=== PATIENT | female | born 1980 | race Hispanic/Latino ===

== ENCOUNTER 2017-10-11 23:04 | Emergency (ER) | payer OTHER ==
[2017-10-12 00:28] LABS: Absolute Lymphocytes (CBC) 1.3 K/uL (0.7-4.9); Absolute Monocytes 0.5 K/uL (0.1-1.3); Absolute Neutrophil 5.1 K/uL (1.8-8.0); Basophils % 0.4 % (0-1.3); Eosinophils % 0.9 % (0-4.4); Hematocrit 37.7 % (36.0-45.0); Lymphocytes % 18.8 % (15.3-44.8); MCV 88.9 fL (80-100); MPV 8.4 fL (7.6-11.3); Monocytes % 7.5 % (3.3-12.3); RBC Red Blood Cell Count 4.23 M/uL (3.86-4.86)
[2017-10-12] MEDS ORDERED: NA CHLORIDE 0.9% 1,000 ML ONE (00:32)
[2017-10-12] MEDS ORDERED: HYDROCORTISONE SUC 100 MG INJ ONE (00:32)
[2017-10-12 00:38] LABS: Urine Blood NEGATIVE (NEG); Urine Glucose NEGATIVE (NEG); Urine Protein NEGATIVE (NEG); Urine Specific Gravity >1.030 (1.005-1.030)
[2017-10-12 00:38] LABS: Urine Specific Gravity >1.030 (1.005-1.030)
[2017-10-12 00:42] LABS: Protime INR 0.95
[2017-10-12 01:05] LABS: ALT/SGPT 15 U/L (12-78); AST/SGOT 4 U/L (15-37); Albumin 3.3 g/dL (3.4-5.0); Alkaline Phosphatase 80 U/L (45-117); BUN Blood Urea Nitrogen 14 mg/dL (7-18); Bicarbonate 31 mmol/L (21-32); Bilirubin Direct 0.1 mg/dL (0-0.2); Bilirubin Total 0.4 mg/dL (0.2-1.0); CKMB Creatine Kinase MB < 1.0 ng/mL (0.3-3.6); Creatine Phosphokinase 89 U/L (26-192); Glucose Level 111 mg/dL (74-106); Magnesium 2.1 mg/dL (1.8-2.4); NT PRO-BNP 34 pg/mL (<125); Potassium 3.6 mmol/L (3.5-5.1); Protein, Total 6.5 g/dL (6.4-8.2); Sodium Level 143 mmol/L (136-145)
--- NOTE | 2017-10-12 02:07 | ER ---
Nurse's Notes [facility] Name: Lavinia Jarrett Age: 36 yrs Sex: Female : 1980 Arrival Date: 10/11/2017 Time: 23:04 Bed 6 Private MD: Cinda Briceno Diagnosis: Weakness;Thyrotoxicosis [hyperthyroidism];Hypotension;Cough Presentation: 10/11 23:18 Presenting complaint: Patient states: she has Cooper's Disease and has been feeling bb weak and tired was seen by pain management doctor and told she had low blood pressure and was told she should come to the ED it was 80s over 40s. Pt states she is currently on Bactim prophylactically for exposure to "Whooping Cough". Transition of care: patient was not received from another setting of care. Onset of symptoms is unknown. Risk Assessment: Do you want to hurt yourself or someone else? Patient reports no desire to harm self or others. Initial Sepsis Screen: Does the patient meet any 2 criteria? No. Patient's initial sepsis screen is negative. Does the patient have a suspected source of infection? No. Patient's initial sepsis screen is negative. Care prior to arrival: None. 23:18 Method Of Arrival: Ambulatory bb 23:18 Acuity: KIKA 3 bb Historical: - Allergies: 23:30 Latex, Natural Rubber; bb - Home Meds: 23:43 amoxicillin 500 mg Oral cap 4 caps 1 hr before MD visit [Active]; baclofen 10 mg Oral bb tab 1 1-2 tab BID [Active]; butrans 20 mcg/hr patch every week [Active]; Chlordiazepoxide Oral 1 cap 3 times per day [Active]; Cholestyramine Light Oral [Active]; clonazepam 2 mg Oral tab 1 tab 2 times per day [Active]; dicyclomine 20 mg Oral tab 1 tab 3 times per day [Active]; docusate sodium 100 mg Oral cap [Active]; hydrocortisone 10 mg Oral tab 1.5 tab 1 tab at 2pm [Active]; Lyrica 100 mg Oral 1 cap 3 times per day [Active]; methocarbamol 500 mg Oral tab 1 tabs BID [Active]; oxycarbazepine 150 mg BID [Active]; pantoprazole 40 mg Oral TbEC 1 tab once daily [Active]; Prednisone Oral [Active]; promethazine 25 mg Oral tab as needed [Active]; Savella 50 mg Oral tab 1 tab 2 times per day [Active]; solu-cortef [Active]; SUMATRIPTAN 50 mg [Active]; Synthroid 150 mcg Oral tab [Active]; tizanidine 4 mg Oral tab 1 tab BID [Active]; topiramate 25 mg Oral CSpX 1 cap once daily [Active]; topiramate 25 mg Oral CSpX 1 cap BID [Active]; tramadol 50 mg Oral tab as needed [Active]; trazodone 50 mg Oral tab 1 tab once a day [Active]; venlafaxine 150 mg Oral cp24 1 cap once daily [Active]; Vitamin D Oral daily [Active]; Zofran (as hydrochloride) 4 mg Oral tab 2 tabs every 8 hours [Active]; - PMHx: 23:30 Cooper's disease; Bipolar disorder; Chronic pain; Depression; Fibromyalgia; bb Hypothyroidism; Migraines; Schizophrenia; ibs; - PSHx: 23:30 Cholecystectomy; Hernia repair; bb - Immunization history:: Adult Immunizations up to date. - Social history:: Smoking status: Patient/guardian denies using tobacco, Patient/guardian denies using alcohol, street drugs. - Ebola Screening: : No symptoms or risks identified at this time. - Family history:: not pertinent. Screenin:30 Abuse screen: Denies threats or abuse. Denies injuries from another. Nutritional aa1 screening: No deficits noted. Tuberculosis screening: No symptoms or risk factors identified. Fall Risk None identified. Assessment: 23:30 General: Appears in no apparent distress. comfortable, Behavior is calm, cooperative, aa1 appropriate for age. Pain: Denies pain. Neuro: Level of Consciousness is awake, alert, obeys commands, Oriented to person, place, time, situation, Moves all extremities. Full function Gait is steady, Speech is normal, Facial symmetry appears normal, Pupils are PERRLA, Denies blurred vision dizziness. Cardiovascular: Denies chest pain, diaphoresis, palpitations, shortness of breath, Heart tones S1 S2 present Rhythm is regular. Respiratory: Reports cough that is dry, Airway is patent Respiratory effort is even, unlabored, Respiratory pattern is regular, symmetrical, Breath sounds are clear bilaterally. GI: No signs and/or symptoms were reported involving the gastrointestinal system. : No signs and/or symptoms were reported regarding the genitourinary system. EENT: No signs and/or symptoms were reported regarding the EENT system. Derm: Skin is intact, is healthy with good turgor, Skin is pink, warm \\T\\ dry. Musculoskeletal: Circulation, motion, and sensation intact. Capillary refill < 3 seconds. 10/12 01:06 Reassessment: Patient appears in no apparent distress at this time. Patient and/or aa1 family updated on plan of care and expected duration. Pain level reassessed. Patient is alert, oriented x 3, equal unlabored respirations, skin warm/dry/pink. Awaiting lab results. 02:20 Reassessment: Patient appears in no apparent distress at this time. Patient is alert, aa1 oriented x 3, equal unlabored respirations, skin warm/dry/pink. Discussed d/c \\T\\ f/u instructions with pt; denies questions or concerns at this time Patient states feeling better. Vital Signs: 10/11 23:30 BP 121 / 80; Pulse 78; Resp 16 S; Temp 97.8(O); Pulse Ox 95% on R/A; Weight 122.47 kg bb (R); Height 5 ft. 5 in. (165.10 cm) (R); Pain 8/10; 10/12 01:06 BP 98 / 65; Pulse 64; Resp 18; Pulse Ox 96% on R/A; aa1 02:07 BP 125 / 85; Pulse 71; Resp 18; Pulse Ox 97% on R/A; tl2 10/11 23:30 Body Mass Index 44.93 (122.47 kg, 165.10 cm) ED Course: 10/11 23:04 Patient arrived in ED. ds1 23:05 Cinda Briceno MD is Private Physician. ds1 23:26 Triage completed. bb 23:30 Arm band placed on Patient placed in an exam room, on a stretcher, on pulse oximetry. bb Family accompanied patient. 23:30 Patient has correct armband on for positive identification. Bed in low position. Call aa1 light in reach. Pulse ox on. NIBP on. Warm blanket given. 23:44 Shabbir Hendrix MD is Attending Physician. [facility] 10/12 00:06 No Rose RN is Primary Nurse. aa1 00:15 XRAY Chest (1 view) In Process Unspecified. EDMS 00:20 Initial lab(s) drawn, by me, sent to lab. Urine collected: clean catch specimen, clear. aa1 Inserted saline lock: 20 gauge in right antecubital area, using aseptic technique. Blood collected. 00:26 X-ray completed. Portable x-ray completed in exam room. Patient tolerated procedure ml well. 00:30 EKG done, by ED staff, reviewed by Shabbir Hendrix MD. aa1 02:06 Cinda Briceno MD is Referral Physician. [facility] 02:20 No provider procedures requiring assistance completed. IV discontinued, intact, aa1 bleeding controlled, No redness/swelling at site. Pressure dressing applied. Administered Medications: 00:32 Drug: NS 0.9% 1000 ml Route: IV; Rate: 1 bolus; Site: right antecubital; aa1 00:33 Drug: Solu-CORTEF 100 mg Route: IVP; Site: right antecubital; aa1 02:36 Follow up: Response: No adverse reaction aa1 02:36 Drug: Zithromax 500 mg Route: PO; aa1 02:38 Follow up: Response: No adverse reaction; Medication administered at discharge. aa1 Outcome: 02:07 Discharge ordered by . mehul 02:20 Discharged to home ambulatory, with family. aa1 02:20 Condition: good 02:20 Discharge instructions given to patient, Instructed on discharge instructions, follow up and referral plans. medication usage, Demonstrated understanding of instructions, follow-up care, medications, Prescriptions given X 1. 02:47 Patient left the ED. bb Signatures: Dispatcher [employer] EDIL No Rose, KESHAV RN aa1 Shabbir Hendrix MD MD cha Sanford, Demi ds1 Karley Martines RN RN Jess Encinas Taylor RN RN tl2
--- NOTE | 2017-10-12 02:08 | EDPHYS ---
Physician Documentation [facility] Name: Lavinia Jarrett Age: 36 yrs Sex: Female : 1980 Arrival Date: 10/11/2017 Time: 23:04 Bed 6 Private MD: Cinda Briceno ED Physician Shabbir Hendrix HPI: 10/12 00:05 This 36 yrs old Female presents to ER via Ambulatory with complaints of Low BP.mehul 00:05 weakness and low blood pressure. Onset: The symptoms/episode began/occurred 1 day(s) mehul ago. Severity of symptoms: At their worst the symptoms were mild in the emergency department the symptoms are unchanged. The patient has experienced similar episodes in the past, a few times. Historical: - Allergies: 10/11 23:30 Latex, Natural Rubber; bb - Home Meds: 23:43 amoxicillin 500 mg Oral cap 4 caps 1 hr before MD visit [Active]; baclofen 10 mg Oral bb tab 1 1-2 tab BID [Active]; butrans 20 mcg/hr patch every week [Active]; Chlordiazepoxide Oral 1 cap 3 times per day [Active]; Cholestyramine Light Oral [Active]; clonazepam 2 mg Oral tab 1 tab 2 times per day [Active]; dicyclomine 20 mg Oral tab 1 tab 3 times per day [Active]; docusate sodium 100 mg Oral cap [Active]; hydrocortisone 10 mg Oral tab 1.5 tab 1 tab at 2pm [Active]; Lyrica 100 mg Oral 1 cap 3 times per day [Active]; methocarbamol 500 mg Oral tab 1 tabs BID [Active]; oxycarbazepine 150 mg BID [Active]; pantoprazole 40 mg Oral TbEC 1 tab once daily [Active]; Prednisone Oral [Active]; promethazine 25 mg Oral tab as needed [Active]; Savella 50 mg Oral tab 1 tab 2 times per day [Active]; solu-cortef [Active]; SUMATRIPTAN 50 mg [Active]; Synthroid 150 mcg Oral tab [Active]; tizanidine 4 mg Oral tab 1 tab BID [Active]; topiramate 25 mg Oral CSpX 1 cap once daily [Active]; topiramate 25 mg Oral CSpX 1 cap BID [Active]; tramadol 50 mg Oral tab as needed [Active]; trazodone 50 mg Oral tab 1 tab once a day [Active]; venlafaxine 150 mg Oral cp24 1 cap once daily [Active]; Vitamin D Oral daily [Active]; Zofran (as hydrochloride) 4 mg Oral tab 2 tabs every 8 hours [Active]; - PMHx: 23:30 Aston's disease; Bipolar disorder; Chronic pain; Depression; Fibromyalgia; bb Hypothyroidism; Migraines; Schizophrenia; ibs; - PSHx: 23:30 Cholecystectomy; Hernia repair; bb - Immunization history:: Adult Immunizations up to date. - Social history:: Smoking status: Patient/guardian denies using tobacco, Patient/guardian denies using alcohol, street drugs. - Ebola Screening: : No symptoms or risks identified at this time. - Family history:: not pertinent. ROS: 10/12 00:05 Constitutional: Negative for fever, chills, and weight loss, Eyes: Negative for injury, mehul pain, redness, and discharge, ENT: Negative for injury, pain, and discharge, Neck: Negative for injury, pain, and swelling, Cardiovascular: Negative for chest pain, palpitations, and edema, Respiratory: Negative for shortness of breath, cough, wheezing, and pleuritic chest pain, Abdomen/GI: Negative for abdominal pain, nausea, vomiting, diarrhea, and constipation, Back: Negative for injury and pain, : Negative for injury, bleeding, discharge, and swelling, MS/Extremity: Negative for injury and deformity, Skin: Negative for injury, rash, and discoloration, Neuro: Negative for headache, weakness, numbness, tingling, and seizure, Psych: Negative for depression, anxiety, suicide ideation, homicidal ideation, and hallucinations, Allergy/Immunology: Negative for hives, rash, and allergies, Endocrine: Negative for neck swelling, polydipsia, polyuria, polyphagia, and marked weight changes, Hematologic/Lymphatic: Negative for swollen nodes, abnormal bleeding, and unusual bruising. Exam: 00:05 Constitutional: This is a well developed, well nourished patient who is awake, alert, mehul and in no acute distress. Head/Face: Normocephalic, atraumatic. Eyes: Pupils equal round and reactive to light, extra-ocular motions intact. Lids and lashes normal. Conjunctiva and sclera are non-icteric and not injected. Cornea within normal limits. Periorbital areas with no swelling, redness, or edema. ENT: Nares patent. No nasal discharge, no septal abnormalities noted. Tympanic membranes are normal and external auditory canals are clear. Oropharynx with no redness, swelling, or masses, exudates, or evidence of obstruction, uvula midline. Mucous membranes moist. Neck: Trachea midline, no thyromegaly or masses palpated, and no cervical lymphadenopathy. Supple, full range of motion without nuchal rigidity, or vertebral point tenderness. No Meningismus. Chest/axilla: Normal chest wall appearance and motion. Nontender with no deformity. No lesions are appreciated. Cardiovascular: Regular rate and rhythm with a normal S1 and S2. No gallops, murmurs, or rubs. Normal PMI, no JVD. No pulse deficits. Respiratory: Lungs have equal breath sounds bilaterally, clear to auscultation and percussion. No rales, rhonchi or wheezes noted. No increased work of breathing, no retractions or nasal flaring. Abdomen/GI: Soft, non-tender, with normal bowel sounds. No distension or tympany. No guarding or rebound. No evidence of tenderness throughout. Back: No spinal tenderness. No costovertebral tenderness. Full range of motion. Female : Normal external genitalia. Skin: Warm, dry with normal turgor. Normal color with no rashes, no lesions, and no evidence of cellulitis. MS/ Extremity: Pulses equal, no cyanosis. Neurovascular intact. Full, normal range of motion. Neuro: Awake and alert, GCS 15, oriented to person, place, time, and situation. Cranial nerves II-XII grossly intact. Motor strength 5/5 in all extremities. Sensory grossly intact. Cerebellar exam normal. Normal gait. Psych: Awake, alert, with orientation to person, place and time. Behavior, mood, and affect are within normal limits. Vital Signs: 10/11 23:30 BP 121 / 80; Pulse 78; Resp 16 S; Temp 97.8(O); Pulse Ox 95% on R/A; Weight 122.47 kg bb (R); Height 5 ft. 5 in. (165.10 cm) (R); Pain 8/10; 10/12 01:06 BP 98 / 65; Pulse 64; Resp 18; Pulse Ox 96% on R/A; aa1 02:07 BP 125 / 85; Pulse 71; Resp 18; Pulse Ox 97% on R/A; tl2 10/11 23:30 Body Mass Index 44.93 (122.47 kg, 165.10 cm) bb MDM: 10/11 23:44 Patient medically screened. [facility] 10/12 00:05 Data reviewed: vital signs, nurses notes, lab test result(s), EKG, radiologic studies, mehul plain films. 10/12 00:03 Order name: Basic Metabolic Panel; Complete Time: 02:02 [facility] 10/12 00:03 Order name: CBC with Diff; Complete Time: 02:02 [facility] 10/12 00:03 Order name: Ckmb; Complete Time: 02:02 [facility] 10/12 00:03 Order name: CPK; Complete Time: 02:02 [facility] 10/12 00:03 Order name: LFT's; Complete Time: 02:02 [facility] 10/12 00:03 Order name: Magnesium; Complete Time: 02:02 [facility] 10/12 00:03 Order name: NT PRO-BNP; Complete Time: 02:02 [facility] 10/12 00:03 Order name: PT-INR; Complete Time: 02:02 [facility] 10/12 00:03 Order name: Ptt, Activated; Complete Time: 02:02 [facility] 10/12 00:03 Order name: Troponin (emerg Dept Use Only); Complete Time: 02:02 [facility] 10/12 00:03 Order name: TSH; Complete Time: 02:02 [facility] 10/12 00:03 Order name: Urine Culture [facility] 10/12 00:18 Order name: Urine Dipstick--Ancillary (enter results); Complete Time: 02:02 [facility] 10/12 00:21 Order name: Urine --Ancillary (enter results); Complete Time: 02:02 [facility] 10/12 00:03 Order name: XRAY Chest (1 view) [facility] 10/12 00:03 Order name: EKG; Complete Time: 00:04 [facility] 10/12 00:03 Order name: Cardiac monitoring; Complete Time: 00:34 [facility] 10/12 00:03 Order name: EKG - Nurse/Tech; Complete Time: 00:34 [facility] 10/12 00:03 Order name: IV Saline Lock; Complete Time: 00:34 [facility] 10/12 00:03 Order name: Labs collected and sent; Complete Time: 00:33 [facility] 10/12 00:03 Order name: O2 Per Protocol; Complete Time: 00: [facility] 10/12 00:03 Order name: O2 Sat Monitoring; Complete Time: : [facility] 10/12 00:03 Order name: Urine Dipstick-Ancillary (obtain specimen); Complete Time: 00: [facility] 10/12 00:04 Order name: Urine Test (obtain specimen); Complete Time: 00: [facility] 10/12 02:05 Order name: Orthostatics [facility] 10/12 02:05 Order name: PO challenge: juice mehul Administered Medications: 00:32 Drug: NS 0.9% 1000 ml Route: IV; Rate: 1 bolus; Site: right antecubital; aa1 00:33 Drug: Solu-CORTEF 100 mg Route: IVP; Site: right antecubital; aa1 02:36 Follow up: Response: No adverse reaction aa1 02:36 Drug: Zithromax 500 mg Route: PO; aa1 02:38 Follow up: Response: No adverse reaction; Medication administered at discharge. aa1 Disposition: 10/12/17 02:07 Discharged to Home. Impression: Weakness, Thyrotoxicosis [hyperthyroidism], Hypotension, Cough. - Condition is Stable. - Discharge Instructions: Mcdowell Disease, Hyperthyroidism, Weakness, Cool Mist Vaporizer, Fatigue, Cough, Adult, Jfbe-[id number], Weakness, Ylwg-hu-Asqi, Cough, Adult. - Prescriptions for Zithromax Z- Nilay 250 mg Oral Tablet - take 1 tablet by ORAL route as directed for 5 days Day 1 - take two (2) tablets one time. Day 2, 3, 4 , 5 take one (1) tablet once daily.; 6 tablet. - Medication Reconciliation Form, Thank You Letter, Antibiotic Education, Prescription Opioid Use form. - Follow up: Cinda Briceno MD; When: 2 - 3 days; Reason: Recheck today's complaints, Continuance of care, Re-evaluation by your physician. Follow up: Private Physician; When: 1 - 2 days; Reason: Recheck today's complaints, Continuance of care, Re-evaluation by your physician. - Problem is new. - Symptoms have improved. Signatures: Dispatcher [employer] EDNo Cardozo RN RN aa1 Simeon, Shabbir, MD MD mehul Martines, Karley, RN RN bb Corrections: (The following items were deleted from the chart) 02:10 02:07 10/12/2017 02:07 Discharged to Home. Impression: Weakness; Thyrotoxicosis mehul [hyperthyroidism]; Hypotension. Condition is Stable. Forms are Medication Reconciliation Form, Thank You Letter, Antibiotic Education, Prescription Opioid Use. Follow up: Cinda Briceno; When: 2 - 3 days; Reason: Recheck today's complaints, Continuance of care, Re-evaluation by your physician. Follow up: Private Physician; When: 1 - 2 days; Reason: Recheck today's complaints, Continuance of care, Re-evaluation by your physician. Problem is new. Symptoms have improved. mehul 02:47 02:10 10/12/2017 02:07 Discharged to Home. Impression: Weakness; Thyrotoxicosis bb [hyperthyroidism]; Hypotension; Cough. Condition is Stable. Discharge Instructions: Mcdowell Disease, Hyperthyroidism, Weakness, Fatigue, Weakness, [id number]. Forms are Medication Reconciliation Form, Thank You Letter, Antibiotic Education, Prescription Opioid Use. Follow up: Cinda Briceno; When: 2 - 3 days; Reason: Recheck today's complaints, Continuance of care, Re-evaluation by your physician. Follow up: Private Physician; When: 1 - 2 days; Reason: Recheck today's complaints, Continuance of care, Re-evaluation by your physician. Problem is new. Symptoms have improved. mehul
[2017-10-12] MEDS ORDERED: AZITHROMYCIN 250 MG TAB ONE (02:35)
[2017-10-12 02:53] VITALS: TEMP 97.8
[2017-10-12 02:55] VITALS: BP 125/85; O2SAT 97
--- NOTE | 2017-10-12 06:01 | EKG ---
Test Date: 2017-10-12 Test Time: 00:29:43 [employer] Apprentice: AMADEO MEASUREMENT RESULTS: Intervals: Rate: 68 RI: 168 QRSD: 86 QT: 438 QTc: 465 [place]: P: 41 RI: 168 QRS: 13 T: 55 INTERPRETIVE STATEMENTS: Normal sinus rhythm Normal ECG Compared to ECG 01/06/2017 19:48:44 No significant changes Electronically Signed On 10-12-17 06:01:12 CDT by Maurisio Wagoner
--- NOTE | 2017-10-12 11:22 | RAD REPORT ---
EXAM DESCRIPTION: Sher Single View10/12/2017 12:16 am CLINICAL HISTORY: Cough COMPARISON: December 2016 FINDINGS: The lungs appear clear of acute infiltrate. The heart is borderline enlarged IMPRESSION: No acute abnormalities displayed
== END 2017-10-12 02:47 | disposition home or self-care (01) ==
LOC: ER 23:04
DX: E05.90 Thyrotoxicosis, unspecified without thyrotoxic crisis or storm (principal); I95.9 Hypotension, unspecified; R05 Cough; E27.1 Primary adrenocortical insufficiency; E03.9 Hypothyroidism, unspecified; G43.909 Migraine, unspecified, not intractable, without status migrainosus; R53.1 Weakness
CPT/HCPCS: 36415; 71045; 80048; 80076; 81003; 81025; 82550; 82553; 83735; 83880; 84443; 84484; 85025; 85610; 85730; 87086; 87088; 93005; 96374; 99284; J1720; J7030

== ENCOUNTER 2017-11-01 18:46 | Emergency (ER) | payer OTHER ==
--- OUTSIDE RECORDS SUMMARY | 2017-11-01 18:49 | XMS REPORT ---
:1980 Author Organization [employer] Care Team Providers Name Role Phone JamelCinda rock Provider Role Unavailable Allergies No Known Allergies Problems Problem Type Condition Code Onset Dates Condition Status Problem Migraine without status G43.909 Active migrainosus, not intractable, unspecified migraine type Problem Obstructive sleep apnea G47.33 Active Problem Gallstone K80.20 Active Problem Fibromyalgia M79.7 Active Problem Muscle weakness M62.81 Active Problem Hypothyroidism E03.9 Active Problem Chronic pain syndrome G89.4 Active Problem Depression with anxiety F41.8 Active Problem Bipolar disorder F31.9 Active Problem Foot pain M79.673 Active Problem Insomnia, unspecified type G47.00 Active Problem Bipolar affective disorder, F31.9 Active remission status unspecified Problem CPAP (continuous positive airway Z99.89 Active pressure) dependence Problem Hypothyroidism, unspecified type E03.9 Active Medications Medication Code Code Instructions Start End Status Dosage System Date Date Pantoprazole [facility] 89281170099 20 mg Orally Oct 25, Active 1 tablet Sodium Once a day 2017 Citalopram [place] 11418235423 20 MG Orally Active 1 tablet Hydrobromide Once a day Chlordiazepoxide-C [facility] 60804602065 5-2.5 MG Oct 25Mar Active 1 capsule lidinium Orally Once a 2017 Imitrex [facility] 91017125111 50 MG Orally Active 1 tablet Twice a day as needed Synthroid [facility] 31675963586 300 MCG Orally Active 1 tablet Once a day on an empty stomach in the morning Furosemide ND 64669605721 20 mg Orally Oct 25, Active 1 tablet Once a day 2017 as needed for leg swelling Clonazepam [facility] [address]-38 2 MG Orally Active 1 tablet Twice daily as needed Cyclobenzaprine [facility] [address]-65 10 MG Orally Active 1 tablet HCl Twice a day as needed Results No Known Results Summary Purpose [employer] Submission
--- OUTSIDE RECORDS SUMMARY | 2017-11-01 18:49 | XMS REPORT ---
:1980 Author Organization [employer] Care Team Providers Name Role Phone Cinda Briceno Provider Role Unavailable Allergies, Adverse Reactions, Alerts Substance Reaction Event Type N.K.D.A. Info Not Available Non Drug Allergy Problems Problem Type Condition Code Onset Dates Condition Status Problem Migraine without status G43.909 Active migrainosus, not intractable, unspecified migraine type Problem Obstructive sleep apnea G47.33 Active Problem Gallstone K80.20 Active Problem Fibromyalgia M79.7 Active Assessment Chronic pain syndrome G89.4 Active Problem Muscle weakness M62.81 Active Assessment Insomnia, unspecified type G47.00 Active Assessment Bipolar affective disorder, F31.9 Active remission status unspecified Problem Hypothyroidism E03.9 Active Problem Chronic pain syndrome G89.4 Active Problem Depression with anxiety F41.8 Active Problem Bipolar disorder F31.9 Active Problem Foot pain M79.673 Active Assessment CPAP (continuous positive airway Z99.89 Active pressure) dependence Assessment Obstructive sleep apnea G47.33 Active Assessment Fibromyalgia M79.7 Active Assessment Migraine without status G43.909 Active migrainosus, not intractable, unspecified migraine type Problem Insomnia, unspecified type G47.00 Active Problem Bipolar affective disorder, F31.9 Active remission status unspecified Assessment Hypothyroidism, unspecified type E03.9 Active Problem CPAP (continuous positive airway Z99.89 Active pressure) dependence Assessment Depression with anxiety F41.8 Active Problem Hypothyroidism, unspecified type E03.9 Active Medications Medication Code Code Instructions Start End Status Dosage System Date Date Chlordiazepoxide NDC 42517327914 5-2.5 MG Orally Oct 25, Apr 23, Active 1 capsule -Clidinium Once a day 2017 2018 Furosemide NDC 23723267387 20 mg Orally Oct 25, Active 1 tablet as Once a day 2017 needed for leg swelling Pantoprazole NDC 34673052598 20 mg Orally Oct 25, Active 1 tablet Sodium Once a day 2017 Results No Known Results Summary Purpose [employer] Submission
--- OUTSIDE RECORDS SUMMARY | 2017-11-01 18:49 | XMS REPORT ---
:1980 [facility] Team Providers Name Role Phone Cinda Briceno Provider Role Unavailable Allergies No Known Allergies [...] Start End Status Dosage System Date Date Neurontin [facility] 30634580323 300 MG Orally Active 1 capsule Once a day Amitriptyline [facility] 65224139532 10 MG Orally Active 1 tablet HCl Once a day Topamax [facility] 28656070633 25 MG Orally Active 1 tablet Twice a day Zofran [facility] [address]-04 4 MG Orally Active 1 tablet every 6-8hrs Ultram [facility] 96829064121 50 MG Orally Active 1 tablet every 6 hrs as needed Pantoprazole [facility] 20403714905 20 mg Orally Oct 25, Active 1 tablet Sodium Once a day 2017 Chlordiazepoxide ND 56572431247 5-2.5 MG Orally Oct 25Mar Active 1 capsule -Clidinium Once a day 2017 Lyrica [facility] [address]-32 75 MG Orally Active 1 capsule Three times a day Robaxin [facility] 33164949286 500 MG Orally Active 1.5 every 4 hrs tablets Effexor XR [facility] 54090426007 75 MG Orally Active 1 capsule Once a day with food Furosemide [facility] 62029045701 20 mg Orally Aug 31, Active 1 tablet Once a day 2017 as needed for leg swelling Trazodone HCl [facility] 35172590057 50 MG Orally Active 1 tablet Once a day at bedtime as needed Protonix [facility] 18228700142 40 MG Orally Active 1 tablet Once a day Savella [facility] 60114013307 50 MG Orally Active 1 tablet Twice a day Results No Known Results Summary Purpose eClinicalWorks Submission
[2017-11-01] MEDS ORDERED: NA CHLORIDE 0.9% 1,000 ML ONE (19:49)
[2017-11-01] MEDS ORDERED: HYDROCODONE/APAP 5/325 MG TAB ONE (19:54)
[2017-11-01 20:16] LABS: Urine Blood 3+ (NEG); Urine Glucose NEGATIVE (NEG); Urine Protein NEGATIVE (NEG); Urine Specific Gravity >1.030 (1.005-1.030); Urine pH 5.5 (5.0-7.0)
[2017-11-01 20:24] LABS: BUN Blood Urea Nitrogen 14 mg/dL (7-18); Bicarbonate 30 mmol/L (21-32); Glucose Level 92 mg/dL (74-106); Potassium 3.7 mmol/L (3.5-5.1); Sodium Level 142 mmol/L (136-145)
[2017-11-01 20:30] LABS: Absolute Lymphocytes (CBC) 1.2 K/uL (0.7-4.9); Absolute Monocytes 0.5 K/uL (0.1-1.3); Absolute Neutrophil 5.6 K/uL (1.8-8.0); Basophils % 0.3 % (0-1.3); Eosinophils % 0.8 % (0-4.4); Hematocrit 36.3 % (36.0-45.0); Lymphocytes % 15.7 % (15.3-44.8); MCH 31.2 pg (27.0-35.0); MCV 90.1 fL (80-100); MPV 8.9 fL (7.6-11.3); Monocytes % 7.3 % (3.3-12.3); RBC Red Blood Cell Count 4.03 M/uL (3.86-4.86)
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
[2017-11-01 22:15] VITALS: O2SAT 100
[2017-11-01 22:17] VITALS: BP 127/61; TEMP 98.2
== END 2017-11-01 22:00 | disposition home or self-care (01) ==
LOC: ER 18:46
DX: N83.209 Unspecified ovarian cyst, unspecified side (principal); V49.40XA Driver injured in collision with unspecified motor vehicles in traffic accident, initial encounter; F31.9 Bipolar disorder, unspecified; F32.9 Major depressive disorder, single episode, unspecified; E03.9 Hypothyroidism, unspecified; Z91.040 Latex allergy status; Z91.048 Other nonmedicinal substance allergy status
CPT/HCPCS: 36415; 74177; 80048; 81003; 81025; 85025; 96360; 96361; 99284; J7030; Q9967

== ENCOUNTER 2018-01-25 00:38 | Emergency (ER) | payer OTHER ==
--- OUTSIDE RECORDS SUMMARY | 2018-01-25 00:41 | XMS REPORT ---
[...] End Status Dosage System Date Date Pantoprazole [facility] 02105375756 20 mg Orally Oct 25, Active 1 tablet Sodium Once a day 2017 Citalopram ND 26020685267 20 MG Orally Active 1 tablet Hydrobromide Once a day Chlordiazepoxide-C [facility] 29642991213 5-2.5 MG Oct 25Mar Active 1 capsule lidinium Orally Once a 2017 Imitrex [facility] 66172805838 50 MG Orally Active 1 tablet Twice a day as needed Synthroid [facility] 82455654737 300 MCG Orally Active 1 tablet Once a day on an empty stomach in the morning Furosemide ND 42587898506 20 mg Orally Oct 25, Active 1 tablet Once a day 2017 as needed for leg swelling Clonazepam [facility] [address]-20 2 MG Orally Active 1 tablet Twice daily as needed Cyclobenzaprine [facility] [address]-46 10 MG Orally Active 1 tablet HCl Twice a day as needed Results No Known Results Summary Purpose eClinicalWorks Submission
--- OUTSIDE RECORDS SUMMARY | 2018-01-25 00:41 | XMS REPORT ---
[...] Status Dosage System Date Date Chlordiazepoxide NDC 99813698475 5-2.5 MG Orally Oct 25, Apr 23, Active 1 capsule -Clidinium Once a day 2017 2018 Furosemide NDC 57329823097 20 mg Orally Oct 25, Active 1 tablet as Once a day 2017 needed for leg swelling Pantoprazole NDC 32563904126 20 mg Orally Oct 25, Active 1 tablet Sodium Once a day 2017 Results No Known Results Summary Purpose eClinicalWorks Submission
--- OUTSIDE RECORDS SUMMARY | 2018-01-25 00:41 | XMS REPORT ---
:1980 [facility] Care Team Providers Name Role Phone Cinda [...] End Status Dosage System Date Date Neurontin [facility][NOTE 3] 08263191694 300 MG Orally Active 1 capsule Once a day Amitriptyline [facility][NOTE 3] 98171017390 10 MG Orally Active 1 tablet HCl Once a day Topamax [facility][NOTE 3] 29025204184 25 MG Orally Active 1 tablet Twice a day Zofran [facility][NOTE 3] [address]-90 4 MG Orally Active 1 tablet every 6-8hrs Ultram [facility][NOTE 3] 42098576911 50 MG Orally Active 1 tablet every 6 hrs as needed Pantoprazole [facility][NOTE 3] 74424056204 20 mg Orally Oct 25, Active 1 tablet Sodium Once a day 2017 Chlordiazepoxide ND 89260980073 5-2.5 MG Orally Oct 25Mar Active 1 capsule -Clidinium Once a day 2017 Lyrica [facility][NOTE 3] [address]-75 75 MG Orally Active 1 capsule Three times a day Robaxin [facility][NOTE 3] 09961308647 500 MG Orally Active 1.5 every 4 hrs tablets Effexor XR [facility][NOTE 3] 31490716597 75 MG Orally Active 1 capsule Once a day with food Furosemide [facility][NOTE 3] 56078591481 20 mg Orally Aug 31, Active 1 tablet Once a day 2017 as needed for leg swelling Trazodone HCl [facility][NOTE 3] 18406192712 50 MG Orally Active 1 tablet Once a day at bedtime as needed Protonix [facility][NOTE 3] 24868184394 40 MG Orally Active 1 tablet Once a day Savella [facility][NOTE 3] 69640956204 50 MG Orally Active 1 tablet Twice a day Results No Known Results Summary Purpose eClinicalWorks Submission
[2018-01-25] MEDS ORDERED: ONDANSETRON 4 MG/2 ML VIAL ONE (02:06)
[2018-01-25] MEDS ORDERED: HYDROCORTISONE SUC 100 MG INJ ONE (02:06)
[2018-01-25 02:19] LABS: Absolute Lymphocytes (CBC) 1.8 K/uL (0.7-4.9); Absolute Monocytes 0.5 K/uL (0.1-1.3); Absolute Neutrophil 5.1 K/uL (1.8-8.0); Basophils % 0.4 % (0-1.3); Eosinophils % 1.1 % (0-4.4); Hematocrit 38.2 % (36.0-45.0); Lymphocytes % 23.6 % (15.3-44.8); MCH 30.5 pg (27.0-35.0); MCV 89.3 fL (80-100); MPV 8.5 fL (7.6-11.3); Monocytes % 6.7 % (3.3-12.3); RBC Red Blood Cell Count 4.27 M/uL (3.86-4.86)
[2018-01-25 02:25] LABS: Potassium 3.5 mmol/L (3.5-5.1)
--- NOTE | 2018-01-25 02:35 | ER ---
Nurse's Notes [facility] Name: Lavinia Jarrett Age: 37 yrs Sex: Female : 1980 Arrival Date: 01/25/2018 Time: 00:39 Bed 15 Private MD: Cinda Briceno Diagnosis: Weakness;Chronic pain syndrome Presentation: 01/25 00:55 Presenting complaint: Patient states: I just feel off. I feel like my Aston's is jb4 acting up. My left foot is swelling which I noticed today, and my left hip is numb and has been for the past few weeks. I have a headache and my back hurts and have been feeling week and dizzy. Transition of care: patient was not received from another setting of care. Onset of symptoms was January 21, 2018. Risk Assessment: Do you want to hurt yourself or someone else? Patient reports no desire to harm self or others. Initial Sepsis Screen: Does the patient meet any 2 criteria? No. Patient's initial sepsis screen is negative. Does the patient have a suspected source of infection? No. Patient's initial sepsis screen is negative. Care prior to arrival: None. 00:55 Method Of Arrival: Ambulatory jb4 00:55 Acuity: KIKA 3 jb4 Triage Assessment: 01:03 General: Appears in no apparent distress. uncomfortable, Behavior is calm, cooperative, jb4 appropriate for age, Pt has a 50mcg/hr fentanyl patch on the left shoulder.. Pain: Complains of pain in back, headache. Pain does not radiate. Pain currently is 9 out of 10 on a pain scale. EENT: No signs and/or symptoms were reported regarding the EENT system. Neuro: Level of Consciousness is awake, alert, obeys commands, Oriented to person, place, time, situation. Cardiovascular: Patient's skin is warm and dry. Respiratory: Airway is patent Respiratory effort is even, unlabored, Respiratory pattern is regular, symmetrical. GI: No signs and/or symptoms were reported involving the gastrointestinal system. : No signs and/or symptoms were reported regarding the genitourinary system. Derm: Skin is intact, Skin is dry, Skin is normal, Skin temperature is warm. Musculoskeletal: Circulation, motion, and sensation intact. Reports numbness in left hip pain in back. 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 jb4 Historical: - Allergies: 01:03 Latex, Natural Rubber; jb4 - Home Meds: 01:03 amoxicillin 500 mg Oral cap 4 caps 1 hr before MD visit [Active]; baclofen 10 mg Oral jb4 tab 1 1-2 tab BID [Active]; butrans 20 mcg/hr patch every week [Active]; Chlordiazepoxide Oral 1 cap 3 times per day [Active]; Cholestyramine Light Oral [Active]; clonazepam 2 mg Oral tab 1 tab 2 times per day [Active]; dicyclomine 20 mg Oral tab 1 tab 3 times per day [Active]; docusate sodium 100 mg Oral cap [Active]; hydrocortisone 10 mg Oral tab 1.5 tab 1 tab at 2pm [Active]; Lyrica 100 mg Oral 1 cap 3 times per day [Active]; methocarbamol 500 mg Oral tab 1 tabs BID [Active]; oxycarbazepine 150 mg BID [Active]; pantoprazole 40 mg Oral TbEC 1 tab once daily [Active]; Prednisone Oral [Active]; promethazine 25 mg Oral tab as needed [Active]; Savella 50 mg Oral tab 1 tab 2 times per day [Active]; solu-cortef [Active]; SUMATRIPTAN 50 mg [Active]; Synthroid 150 mcg Oral tab [Active]; tizanidine 4 mg Oral tab 1 tab BID [Active]; topiramate 25 mg Oral CSpX 1 cap once daily [Active]; topiramate 25 mg Oral CSpX 1 cap BID [Active]; tramadol 50 mg Oral tab as needed [Active]; trazodone 50 mg Oral tab 1 tab once a day [Active]; venlafaxine 150 mg Oral cp24 1 cap once daily [Active]; Vitamin D Oral daily [Active]; Zofran (as hydrochloride) 4 mg Oral tab 2 tabs every 8 hours [Active]; - 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 - Social history:: Smoking status: Patient/guardian denies using tobacco, Patient/guardian denies using alcohol. - Ebola Screening: : No symptoms or risks identified at this time. Screenin:08 Abuse screen: Denies threats or abuse. Nutritional screening: No deficits noted. jb4 Tuberculosis screening: No symptoms or risk factors identified. Fall Risk None identified. Assessment: 01:08 General: see triage assessment.. jb4 02:50 Reassessment: Patient appears in no apparent distress at this time. Patient and/or jb4 family updated on plan of care and expected duration. Pain level reassessed. Patient is alert, oriented x 3, equal unlabored respirations, skin warm/dry/pink. Vital Signs: 01:03 BP 117 / 73; Pulse 81; Resp 16; Temp 98.0(O); Pulse Ox 100% on R/A; Weight 121.56 kg jb4 (R); Height 5 ft. 5 in. (165.10 cm) (R); Pain 9/10; 02:50 BP 102 / 59; Pulse 73; Resp 18; Pulse Ox 100% on R/A; jb4 01:03 Body Mass Index 44.60 (121.56 kg, 165.10 cm) jb4 ED Course: 00:39 Patient arrived in ED. al2 00:40 Cinda Briceno MD is Private Physician. al2 00:44 Johnny Diana RN is Primary Nurse. jb4 00:47 Jj Morel MD is Attending Physician. gs 00:58 Triage completed. jb4 01:03 Arm band placed on left wrist. jb4 01:08 Patient has correct armband on for positive identification. Bed in low position. Call jb4 light in reach. Side rails up X 1. Pulse ox on. NIBP on. 02:08 Basic Metabolic Panel Sent. jb4 02:08 CBC with Diff Sent. jb4 02:50 No provider procedures requiring assistance completed. intact, bleeding controlled, No jb4 redness/swelling at site. IV DC'd by the pt. Administered Medications: 02:07 Drug: Solu-CORTEF 100 mg Route: IVP; Site: right antecubital; jb4 02:46 Follow up: Response: No adverse reaction jb4 02:07 Drug: Zofran 4 mg Route: IVP; Site: right antecubital; jb4 02:45 Follow up: Response: No adverse reaction; Nausea is decreased jb4 Outcome: 02:35 Discharge ordered by . ronald 02:50 Discharged to home ambulatory, with family. jb4 02:50 Condition: stable 02:50 Discharge instructions given to patient, friend, Instructed on discharge instructions, follow up and referral plans. Demonstrated understanding of instructions, follow-up care. 02:53 Patient left the ED. jb4 Signatures: Johnny Diana RN RN jb4 Jj Morel MD MD gs Love, Kassandra al2
--- NOTE | 2018-01-25 02:35 | EDPHYS ---
Physician Documentation [facility] Name: Lavinia Jarrett Age: 37 yrs Sex: Female : 1980 Arrival Date: 01/25/2018 Time: 00:39 Bed 15 Private MD: Cinda Briceno ED Physician Jj Morel HPI: 01/25 02:44 This 37 yrs old Female presents to ER via Ambulatory with complaints of gs Weakness, Dizziness, Back Pain, Foot Pain. 02:44 Onset: The symptoms/episode began/occurred 1 week(s) ago. Associated signs and gs symptoms: Pertinent positives: headache, same as others. Severity of symptoms: At their worst the symptoms were moderate in the emergency department the symptoms are unchanged. Current symptoms: unchanged. The patient has experienced similar episodes in the past, chronically. 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 jb4 Historical: - Allergies: 01:03 Latex, Natural Rubber; jb4 - Home Meds: 01:03 amoxicillin 500 mg Oral cap 4 caps 1 hr before MD visit [Active]; baclofen 10 mg Oral jb4 tab 1 1-2 tab BID [Active]; butrans 20 mcg/hr patch every week [Active]; Chlordiazepoxide Oral 1 cap 3 times per day [Active]; Cholestyramine Light Oral [Active]; clonazepam 2 mg Oral tab 1 tab 2 times per day [Active]; dicyclomine 20 mg Oral tab 1 tab 3 times per day [Active]; docusate sodium 100 mg Oral cap [Active]; hydrocortisone 10 mg Oral tab 1.5 tab 1 tab at 2pm [Active]; Lyrica 100 mg Oral 1 cap 3 times per day [Active]; methocarbamol 500 mg Oral tab 1 tabs BID [Active]; oxycarbazepine 150 mg BID [Active]; pantoprazole 40 mg Oral TbEC 1 tab once daily [Active]; Prednisone Oral [Active]; promethazine 25 mg Oral tab as needed [Active]; Savella 50 mg Oral tab 1 tab 2 times per day [Active]; solu-cortef [Active]; SUMATRIPTAN 50 mg [Active]; Synthroid 150 mcg Oral tab [Active]; tizanidine 4 mg Oral tab 1 tab BID [Active]; topiramate 25 mg Oral CSpX 1 cap once daily [Active]; topiramate 25 mg Oral CSpX 1 cap BID [Active]; tramadol 50 mg Oral tab as needed [Active]; trazodone 50 mg Oral tab 1 tab once a day [Active]; venlafaxine 150 mg Oral cp24 1 cap once daily [Active]; Vitamin D Oral daily [Active]; Zofran (as hydrochloride) 4 mg Oral tab 2 tabs every 8 hours [Active]; - PMHx: 01:03 Jemison's disease; Bipolar disorder; Chronic pain; Depression; Fibromyalgia; jb4 Hypothyroidism; ibs; Migraines; Schizophrenia; - PSHx: 01:03 Hernia repair; Cholecystectomy; jb4 - Immunization history:: Adult Immunizations up to date, Flu vaccine is up to date. - Social history:: Smoking status: Patient/guardian denies using tobacco, Patient/guardian denies using alcohol. - Ebola Screening: : No symptoms or risks identified at this time. ROS: 02:44 All other systems are negative. gs Exam: 02:44 Head/Face: Normocephalic, atraumatic. Eyes: Pupils equal round and reactive to light, gs extra-ocular motions intact. Lids and lashes normal. Conjunctiva and sclera are non-icteric and not injected. Cornea within normal limits. Periorbital areas with no swelling, redness, or edema. ENT: Nares patent. No nasal discharge, no septal abnormalities noted. Tympanic membranes are normal and external auditory canals are clear. Oropharynx with no redness, swelling, or masses, exudates, or evidence of obstruction, uvula midline. Mucous membranes moist. Neck: Trachea midline, no thyromegaly or masses palpated, and no cervical lymphadenopathy. Supple, full range of motion without nuchal rigidity, or vertebral point tenderness. No Meningismus. Chest/axilla: Normal chest wall appearance and motion. Nontender with no deformity. No lesions are appreciated. Cardiovascular: Regular rate and rhythm with a normal S1 and S2. No gallops, murmurs, or rubs. Normal PMI, no JVD. No pulse deficits. Respiratory: Lungs have equal breath sounds bilaterally, clear to auscultation and percussion. No rales, rhonchi or wheezes noted. No increased work of breathing, no retractions or nasal flaring. Abdomen/GI: Soft, non-tender, with normal bowel sounds. No distension or tympany. No guarding or rebound. No evidence of tenderness throughout. Back: No spinal tenderness. No costovertebral tenderness. Full range of motion. Skin: Warm, dry with normal turgor. Normal color with no rashes, no lesions, and no evidence of cellulitis. MS/ Extremity: Pulses equal, no cyanosis. Neurovascular intact. Full, normal range of motion. Neuro: Awake and alert, GCS 15, oriented to person, place, time, and situation. Cranial nerves II-XII grossly intact. Motor strength 5/5 in all extremities. Sensory grossly intact. Cerebellar exam normal. Normal gait. 02:44 Constitutional: The patient appears alert, awake. Vital Signs: 01:03 BP 117 / 73; Pulse 81; Resp 16; Temp 98.0(O); Pulse Ox 100% on R/A; Weight 121.56 kg jb4 (R); Height 5 ft. 5 in. (165.10 cm) (R); Pain 9/10; 02:50 BP 102 / 59; Pulse 73; Resp 18; Pulse Ox 100% on R/A; jb4 01:03 Body Mass Index 44.60 (121.56 kg, 165.10 cm) 4 MDM: 01:34 Patient medically screened. 02:44 Data reviewed: vital signs, nurses notes. Counseling: I had a detailed discussion with the patient and/or guardian regarding: the historical points, exam findings, and any diagnostic results supporting the discharge/admit diagnosis, lab results, the need for outpatient follow up, pt is in no distress asking for more narcotic pain meds saying fentanyl is not cutting it, i explained i could not break pain contract and that this was nontherapeutic prescibing. 01/25 01:36 Order name: CBC with Diff 01/25 01:36 Order name: Basic Metabolic Panel 01/25 02:25 Order name: Basic Metabolic Panel; Complete Time: 02:34 EDMS 01/25 02:26 Order name: CBC with Automated Diff; Complete Time: 02:34 EDMS Administered Medications: 02:07 Drug: Solu-CORTEF 100 mg Route: IVP; Site: right antecubital; jb4 02:46 Follow up: Response: No adverse reaction 4 02:07 Drug: Zofran 4 mg Route: IVP; Site: right antecubital; jb4 02:45 Follow up: Response: No adverse reaction; Nausea is decreased jb4 Disposition: 01/25/18 02:35 Discharged to Home. Impression: Weakness, Chronic pain syndrome. - Condition is Stable. - Discharge Instructions: Chronic Pain, Weakness. - Medication Reconciliation Form, Thank You Letter, Antibiotic Education, Prescription Opioid Use form. - Follow up: Private Physician; When: 2 - 3 days; Reason: Re-evaluation by your physician. Signatures: Dispatcher [employer] EDJohnny Vila RN RN jb4 Jj Morel MD MD gs Corrections: (The following items were deleted from the chart) 02:53 02:35 01/25/2018 02:35 Discharged to Home. Impression: Weakness; Chronic pain syndrome. jb4 Condition is Stable. Forms are Medication Reconciliation Form, Thank You Letter, Antibiotic Education, Prescription Opioid Use. Follow up: Private Physician; When: 2 - 3 days; Reason: Re-evaluation by your physician. gs
== END 2018-01-25 02:53 | disposition home or self-care (01) ==
LOC: ER 00:38
DX: G89.4 Chronic pain syndrome (principal); R53.1 Weakness; E27.1 Primary adrenocortical insufficiency; F31.9 Bipolar disorder, unspecified; M79.7 Fibromyalgia; E03.9 Hypothyroidism, unspecified; K58.9 Irritable bowel syndrome, unspecified; F20.9 Schizophrenia, unspecified; Z79.891 Long term (current) use of opiate analgesic; Z79.899 Other long term (current) drug therapy
CPT/HCPCS: 36415; 80048; 85025; 96374; 96375; 99283; J1720; J2405

== ENCOUNTER 2018-02-08 20:52 | Emergency (ER) | payer OTHER ==
--- OUTSIDE RECORDS SUMMARY | 2018-02-08 20:54 | XMS REPORT ---
:1980 [facility] Team Providers Name Role Phone Cinda [...] End Status Dosage System Date Date Neurontin [facility] 18959281174 300 MG Orally Active 1 capsule Once a day Amitriptyline [facility] 30783842433 10 MG Orally Active 1 tablet HCl Once a day Topamax [facility] 75976210169 25 MG Orally Active 1 tablet Twice a day Zofran [facility] [address]-76 4 MG Orally Active 1 tablet every 6-8hrs Ultram [facility] 60975392346 50 MG Orally Active 1 tablet every 6 hrs as needed Pantoprazole [facility] 47396844957 20 mg Orally Oct 25, Active 1 tablet Sodium Once a day 2017 Chlordiazepoxide ND 82292632658 5-2.5 MG Orally Oct 25Mar Active 1 capsule -Clidinium Once a day 2017 Lyrica [facility] [address]-01 75 MG Orally Active 1 capsule Three times a day Robaxin [facility] 23560037887 500 MG Orally Active 1.5 every 4 hrs tablets Effexor XR [facility] 29412974729 75 MG Orally Active 1 capsule Once a day with food Furosemide [facility] 88657792601 20 mg Orally Aug 31, Active 1 tablet Once a day 2017 as needed for leg swelling Trazodone HCl [facility] 49914898228 50 MG Orally Active 1 tablet Once a day at bedtime as needed Protonix [facility] 98276172961 40 MG Orally Active 1 tablet Once a day Savella [facility] 73719221531 50 MG Orally Active 1 tablet Twice a day Results No Known Results Summary Purpose eClinicalWorks Submission
--- OUTSIDE RECORDS SUMMARY | 2018-02-08 20:54 | XMS REPORT ---
[...] End Status Dosage System Date Date Pantoprazole [facility] 75925951841 20 mg Orally Oct 25, Active 1 tablet Sodium Once a day 2017 Citalopram ND 71335844127 20 MG Orally Active 1 tablet Hydrobromide Once a day Chlordiazepoxide-C [facility] 10915580965 5-2.5 MG Oct 25Mar Active 1 capsule lidinium Orally Once a 2017 Imitrex [facility] 93035256164 50 MG Orally Active 1 tablet Twice a day as needed Synthroid [facility] 31487091748 300 MCG Orally Active 1 tablet Once a day on an empty stomach in the morning Furosemide ND 14995574396 20 mg Orally Oct 25, Active 1 tablet Once a day 2017 as needed for leg swelling Clonazepam [facility] [address]-66 2 MG Orally Active 1 tablet Twice daily as needed Cyclobenzaprine [facility] [address]-01 10 MG Orally Active 1 tablet HCl Twice a day as needed Results No Known Results Summary Purpose eClinicalWorks Submission
--- OUTSIDE RECORDS SUMMARY | 2018-02-08 20:54 | XMS REPORT ---
[...] Status Dosage System Date Date Chlordiazepoxide NDC 63955898519 5-2.5 MG Orally Oct 25, Apr 23, Active 1 capsule -Clidinium Once a day 2017 2018 Furosemide NDC 46273503888 20 mg Orally Oct 25, Active 1 tablet as Once a day 2017 needed for leg swelling Pantoprazole NDC 26056995815 20 mg Orally Oct 25, Active 1 tablet Sodium Once a day 2017 Results No Known Results Summary Purpose eClinicalWorks Submission
[2018-02-08 22:14] LABS: Urine Blood NEGATIVE (NEG); Urine Glucose NEGATIVE (NEG); Urine Protein NEGATIVE (NEG); Urine Specific Gravity 1.015 (1.005-1.030); Urine pH 8.5 (5.0-7.0)
--- NOTE | 2018-02-08 22:47 | RAD REPORT ---
EXAM DESCRIPTION: RAD - Ankle Left 3 View -02/08/2018 10:09 pm CLINICAL HISTORY: Left ankle pain status post injury FINDINGS: No fracture or dislocation is seen.
--- NOTE | 2018-02-08 22:47 | RAD REPORT ---
EXAM DESCRIPTION: RAD - Wrist Right 3 View - 02/08/2018 10:10 pm CLINICAL HISTORY: Right wrist pain status post injury FINDINGS: No fracture or dislocation is seen. If the patient continues to have symptoms to suggest a n occult fracture then a followup plain film series in 7 days would be recommended.
[2018-02-08] MEDS ORDERED: ACETAMINOPHEN 500 MG TAB ONE (23:14)
[2018-02-08 23:30] LABS: Urine Specific Gravity 1.015 (1.005-1.030)
--- NOTE | 2018-02-09 01:00 | ER ---
Nurse's Notes [facility] Name: Lavinia Jarrett Age: 37 yrs Sex: Female : 1980 Arrival Date: 02/08/2018 Time: 20:53 Bed 27 Private MD: Cinda Briceno Diagnosis: Fall on same level from slipping, tripping and stumbling without subsequent striking against object;Pain in right hip;Unspecified ovarian cysts;Diverticulosis of intestine, part unspecified, without perforation or abscess without bleeding Presentation: 02/08 21:20 Presenting complaint: Patient states: Patient states that she has had numbness to her aj1 left leg for the past 4 months. Today while she was walking her left foot gave out from under her and she landed on her right side and now she's having a lot of pain in the right hip. Patient reports that she is scheduled to have a MRI next week to find out why she's having the numbness in her left leg. Transition of care: patient was not received from another setting of care. Onset of symptoms was February 07, 2018 at 22:30. Risk Assessment: Do you want to hurt yourself or someone else? Patient reports no desire to harm self or others. Initial Sepsis Screen: Does the patient meet any 2 criteria? No. Patient's initial sepsis screen is negative. Does the patient have a suspected source of infection? No. Patient's initial sepsis screen is negative. Care prior to arrival: None. 21:20 Method Of Arrival: Wheelchair aj1 21:20 Acuity: KIKA 4 aj1 21:40 Mechanism of Injury: Fall. Triage Assessment: 21:25 General: Appears in no apparent distress. uncomfortable, Behavior is calm, cooperative, aj1 appropriate for age. Pain: Complains of pain in right hip Pain currently is 8 out of 10 on a pain scale. Neuro: Level of Consciousness is awake, alert, obeys commands. Cardiovascular: Patient's skin is warm and dry. Respiratory: Airway is patent Respiratory effort is even, unlabored, Respiratory pattern is regular, symmetrical. 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 aj1 Historical: - Allergies: 21:25 Latex, Natural Rubber; aj1 - Home Meds: 21:25 baclofen 10 mg Oral tab 1 1-2 tab BID [Active]; butrans 20 mcg/hr patch every week aj1 [Active]; Chlordiazepoxide Oral 1 cap 3 times per day [Active]; Cholestyramine Light Oral [Active]; clonazepam 2 mg Oral tab 1 tab 2 times per day [Active]; dicyclomine 20 mg Oral tab 1 tab 3 times per day [Active]; docusate sodium 100 mg Oral cap [Active]; hydrocortisone 10 mg Oral tab 1.5 tab 1 tab at 2pm [Active]; Lyrica 100 mg Oral 1 cap 3 times per day [Active]; methocarbamol 500 mg Oral tab 1 tabs BID [Active]; pantoprazole 40 mg Oral TbEC 1 tab once daily [Active]; oxycarbazepine 150 mg BID [Active]; Prednisone Oral [Active]; promethazine 25 mg Oral tab as needed [Active]; Savella 50 mg Oral tab 1 tab 2 times per day [Active]; solu-cortef [Active]; SUMATRIPTAN 50 mg [Active]; Synthroid 150 mcg Oral tab [Active]; tizanidine 4 mg Oral tab 1 tab BID [Active]; topiramate 25 mg Oral CSpX 1 cap once daily [Active]; topiramate 25 mg Oral CSpX 1 cap BID [Active]; tramadol 50 mg Oral tab as needed [Active]; trazodone 50 mg Oral tab 1 tab once a day [Active]; venlafaxine 150 mg Oral cp24 1 cap once daily [Active]; Vitamin D Oral daily [Active]; Zofran (as hydrochloride) 4 mg Oral tab 2 tabs every 8 hours [Active]; - PMHx: 21:25 [place]'s disease; Bipolar disorder; Chronic pain; Depression; Fibromyalgia; aj1 Hypothyroidism; ibs; Migraines; Schizophrenia; - Immunization history:: Flu vaccine is up to date. - Social history:: Smoking status: Patient/guardian denies using tobacco. - Immunization history: Last tetanus immunization:. - Ebola Screening: : Patient denies travel to an Ebola-affected area in the 21 days before illness onset. Screenin:38 Abuse screen: Denies threats or abuse. Denies injuries from another. Nutritional rv screening: No deficits noted. Tuberculosis screening: No symptoms or risk factors identified. Fall Risk None identified. Primary Survey: 21:39 Breathing/Chest: Respiratory pattern: regular. Circulation: Cardiac rhythm: sinus rv rhythm. Disability Alert. Reassessment Breathing/Chest Respiratory pattern Regular Circulation Heart rhythm Sinus rhythm Disability Alert. Assessment: 21:37 General: Appears in no apparent distress. uncomfortable, Behavior is calm, cooperative. rv Pain: Complains of pain in right hip, RIGHT HAND. Neuro: Level of Consciousness is awake, alert, obeys commands, Oriented to person, place, time, situation. Cardiovascular: Capillary refill < 3 seconds. Respiratory: Airway is patent. GI: No signs and/or symptoms were reported involving the gastrointestinal system. : No signs and/or symptoms were reported regarding the genitourinary system. EENT: No signs and/or symptoms were reported regarding the EENT system. Derm: Skin is intact. Musculoskeletal: Reports numbness in left leg pain in right hip. 23:30 Reassessment: Patient appears in no apparent distress at this time. PATIENT TAKEN TO CT rv SCAN. 02/09 00:14 Reassessment: awaiting cT scan result. rv Vital Signs: 02/08 21:25 BP 133 / 84; Pulse 72; Resp 18; Temp 98.1; Pulse Ox 100% on R/A; Weight 104.33 kg (R); aj1 Height 5 ft. 5 in. (165.10 cm) (R); Pain 8/10; 23:30 BP 114 / 71; Pulse 63; Resp 16; Pulse Ox 100% on R/A; rv 02/09 00:14 BP 117 / 78; Pulse 67 MON; Resp 16 S; Pulse Ox 100% on R/A; rv 01:01 BP 107 / 76; Pulse 75 MON; Resp 16 S; Pulse Ox 100% on R/A; rv 02/08 21:25 Body Mass Index 38.27 (104.33 kg, 165.10 cm) aj1 [place] Coma Score: 02/08 21:38 Eye Response: spontaneous(4). Verbal Response: oriented(5). Motor Response: obeys rv commands(6). Total: 15. Trauma Score (Adult): 21:38 Eye Response: spontaneous(1); Verbal Response: oriented(1); Motor Response: obeys rv commands(2); Systolic BP: > 89 mm Hg(4); Respiratory Rate: 10 to 29 per min(4); Chilo Score: 15; Trauma Score: 12 ED Course: 20:53 Patient arrived in ED. es 20:54 Cinda Briceno MD is Private Physician. es 21:23 Triage completed. aj1 21:25 Arm band placed on Patient placed in an exam room. aj1 21:27 Lolita Tyson FNP-C [facility]. snw 21:27 Leigh Ann Garnett MD is Attending Physician. snw 21:39 Patient has correct armband on for positive identification. Bed in low position. Call rv light in reach. Side rails up X 1. Adult w/ patient. Pulse ox on. NIBP on. 21:39 Patient maintains SpO2 saturation greater than 95% on room air. rv 22:07 X-ray completed. Portable x-ray completed in exam room. Patient tolerated procedure la2 well. 22:10 Ankle Left 3 View XRAY In Process Unspecified. EDMS 22:10 Wrist Right 3 View XRAY In Process Unspecified. EDMS 22:16 Radiology exam delayed due to test not completed at this time. bq 23:[address] via stretcher. kw1 23:[address] In Process Unspecified. EDMS 23:38 CT completed. Patient tolerated procedure well. Patient moved back from CT. kw1 1216 00:57 Cinda Briceno MD is Referral Physician. snw 01:02 No provider procedures requiring assistance completed. Patient did not have IV access rv during this emergency room visit. 01:25 Thermoregulation: warm blanket given to patient. rv Administered Medications: 12 23:17 Drug: Tylenol 1000 mg Route: PO; rv 02/09 00:08 Follow up: Response: Pain is unchanged, physician notified rv Outcome: 00:59 Discharge ordered by . snw 01:02 Condition: good rv 01:23 Discharged to home via wheelchair. rv 01:23 Discharge instructions given to patient, Instructed on discharge instructions, follow up and referral plans. Demonstrated understanding of instructions, follow-up care. 01:25 Patient left the ED. rv Signatures: Dispatcher [employer] Altagracia Valdes RN RN aj1 Lolita Tyson FNP-C HEALTH INFORMATION DIRECTOR-Csnw Chandni Garcia Betty bq Ardoin, Leslie la2 Venessa White kw1 Elias Cloud, RN RN rv
--- NOTE | 2018-02-09 01:00 | EDPHYS ---
Physician Documentation [facility] Name: Lavinia Jarrett Age: 37 yrs Sex: Female : 1980 Arrival Date: 02/08/2018 Time: 20:53 Bed 27 Private MD: Cinda Briceno ED Physician Leigh Ann Garnett HPI: 02/08 21:54 This 37 yrs old Female presents to ER via Wheelchair with complaints of Fall snw Injury. 21:54 Details of fall: The patient fell from an upright position, while standing. Onset: The snw symptoms/episode began/occurred suddenly, just prior to arrival. Associated injuries: The patient sustained right hip, right wrist, left ankle. Severity of symptoms: At their worst the symptoms were moderate. The patient has experienced similar episodes in the past. scheduled for MRI of lower back soon 2nd to numbness of left lateral thigh. fell on concrete second to left foot twisting, no LOC. 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 aj1 Historical: - Allergies: 21:25 Latex, Natural Rubber; aj1 - Home Meds: 21:25 baclofen 10 mg Oral tab 1 1-2 tab BID [Active]; butrans 20 mcg/hr patch every week aj1 [Active]; Chlordiazepoxide Oral 1 cap 3 times per day [Active]; Cholestyramine Light Oral [Active]; clonazepam 2 mg Oral tab 1 tab 2 times per day [Active]; dicyclomine 20 mg Oral tab 1 tab 3 times per day [Active]; docusate sodium 100 mg Oral cap [Active]; hydrocortisone 10 mg Oral tab 1.5 tab 1 tab at 2pm [Active]; Lyrica 100 mg Oral 1 cap 3 times per day [Active]; methocarbamol 500 mg Oral tab 1 tabs BID [Active]; pantoprazole 40 mg Oral TbEC 1 tab once daily [Active]; oxycarbazepine 150 mg BID [Active]; Prednisone Oral [Active]; promethazine 25 mg Oral tab as needed [Active]; Savella 50 mg Oral tab 1 tab 2 times per day [Active]; solu-cortef [Active]; SUMATRIPTAN 50 mg [Active]; Synthroid 150 mcg Oral tab [Active]; tizanidine 4 mg Oral tab 1 tab BID [Active]; topiramate 25 mg Oral CSpX 1 cap once daily [Active]; topiramate 25 mg Oral CSpX 1 cap BID [Active]; tramadol 50 mg Oral tab as needed [Active]; trazodone 50 mg Oral tab 1 tab once a day [Active]; venlafaxine 150 mg Oral cp24 1 cap once daily [Active]; Vitamin D Oral daily [Active]; Zofran (as hydrochloride) 4 mg Oral tab 2 tabs every 8 hours [Active]; - PMHx: 21:25 [place]'s disease; Bipolar disorder; Chronic pain; Depression; Fibromyalgia; aj1 Hypothyroidism; ibs; Migraines; Schizophrenia; - Immunization history:: Flu vaccine is up to date. - Social history:: Smoking status: Patient/guardian denies using tobacco. - Immunization history: Last tetanus immunization:. - Ebola Screening: : Patient denies travel to an Ebola-affected area in the 21 days before illness onset. ROS: 21:53 Constitutional: Negative for fever, chills, and weight loss, Eyes: Negative for injury, snw pain, redness, and discharge, ENT: Negative for injury, pain, and discharge, Neck: Negative for injury, pain, and swelling, Cardiovascular: Negative for chest pain, palpitations, and edema, Respiratory: Negative for shortness of breath, cough, wheezing, and pleuritic chest pain, Abdomen/GI: Negative for abdominal pain, nausea, vomiting, diarrhea, and constipation, Back: Negative for injury and pain, : Negative for injury, bleeding, discharge, and swelling, Skin: Negative for injury, rash, and discoloration, Neuro: Negative for headache, weakness, numbness, tingling, and seizure. 21:53 MS/extremity: Positive for injury or acute deformity, contusion, pain, tenderness, of the right hip, right wrist, left ankle. Exam: 21:53 Constitutional: This is a well developed, well nourished patient who is awake, alert, snw and in no acute distress. Head/Face: Normocephalic, atraumatic. Eyes: Pupils equal round and reactive to light, extra-ocular motions intact. Lids and lashes normal. Conjunctiva and sclera are non-icteric and not injected. Cornea within normal limits. Periorbital areas with no swelling, redness, or edema. ENT: Nares patent. No nasal discharge, no septal abnormalities noted. Tympanic membranes are normal and external auditory canals are clear. Oropharynx with no redness, swelling, or masses, exudates, or evidence of obstruction, uvula midline. Mucous membranes moist. Neck: Trachea midline, no thyromegaly or masses palpated, and no cervical lymphadenopathy. Supple, full range of motion without nuchal rigidity, or vertebral point tenderness. No Meningismus. Chest/axilla: Normal chest wall appearance and motion. Nontender with no deformity. No lesions are appreciated. Cardiovascular: Regular rate and rhythm with a normal S1 and S2. No gallops, murmurs, or rubs. Normal PMI, no JVD. No pulse deficits. Respiratory: Lungs have equal breath sounds bilaterally, clear to auscultation and percussion. No rales, rhonchi or wheezes noted. No increased work of breathing, no retractions or nasal flaring. Abdomen/GI: Soft, non-tender, with normal bowel sounds. No distension or tympany. No guarding or rebound. No evidence of tenderness throughout. Back: No spinal tenderness. No costovertebral tenderness. Full range of motion. Skin: Warm, dry with normal turgor. Normal color with no rashes, no lesions, and no evidence of cellulitis. MS/ Extremity: Pulses equal, no cyanosis. Neurovascular intact. Full, normal range of motion. Neuro: Awake and alert, GCS 15, oriented to person, place, time, and situation. Cranial nerves II-XII grossly intact. Motor strength 5/5 in all extremities. Sensory grossly intact. Cerebellar exam normal. Normal gait. Psych: Awake, alert, with orientation to person, place and time. Behavior, mood, and affect are within normal limits. Vital Signs: 21:25 BP 133 / 84; Pulse 72; Resp 18; Temp 98.1; Pulse Ox 100% on R/A; Weight 104.33 kg (R); aj1 Height 5 ft. 5 in. (165.10 cm) (R); Pain 8/10; 23:30 BP 114 / 71; Pulse 63; Resp 16; Pulse Ox 100% on R/A; rv 12/16 00:14 BP 117 / 78; Pulse 67 MON; Resp 16 S; Pulse Ox 100% on R/A; rv 01:01 BP 107 / 76; Pulse 75 MON; Resp 16 S; Pulse Ox 100% on R/A; rv 02/08 21:25 Body Mass Index 38.27 (104.33 kg, 165.10 cm) aj1 [place] Coma Score: 02/08 21:38 Eye Response: spontaneous(4). Verbal Response: oriented(5). Motor Response: obeys rv commands(6). Total: 15. Trauma Score (Adult): 21:38 Eye Response: spontaneous(1); Verbal Response: oriented(1); Motor Response: obeys rv commands(2); Systolic BP: > 89 mm Hg(4); Respiratory Rate: 10 to 29 per min(4); Chilo Score: 15; Trauma Score: 12 MDM: 21:45 Patient medically screened. snw 02/09 01:00 Data reviewed: vital signs, nurses notes. Data interpreted: Pulse oximetry: on room air snw is 100 %. Interpretation: normal. Counseling: I had a detailed discussion with the patient and/or guardian regarding: the historical points, exam findings, and any diagnostic results supporting the discharge/admit diagnosis, lab results, radiology results, the need for outpatient follow up, to return to the emergency department if symptoms worsen or persist or if there are any questions or concerns that arise at home. Special discussion: Based on the history and exam findings, there is no indication for further emergent testing or inpatient evaluation. I discussed with the patient/guardian the need to see the primary care provider for further evaluation of the symptoms. 02/08 21:56 Order name: Urine Dipstick--Ancillary (enter results) ar5 02/08 23:17 Order name: Urine --Ancillary (enter results); Complete Time: 23:47 fc 02/08 21:52 Order name: Ankle Left 3 View XRAY; Complete Time: 22:55 snw 02/08 21:52 Order name: Wrist Right 3 View XRAY; Complete Time: 22:55 snw 02/08 21:52 Order name: Pelvis Wo Cont CT snw Administered Medications: 02/08 23:17 Drug: Tylenol 1000 mg Route: PO; rv 02/09 00:08 Follow up: Response: Pain is unchanged, physician notified rv Disposition: 03:01 Co-signature as Attending Physician, Leigh Ann Garnett MD. ma2 Disposition: 02/09/18 00:59 Discharged to Home. Impression: Fall on same level from slipping, tripping and stumbling without subsequent striking against object, Pain in right hip, Unspecified ovarian cysts, Diverticulosis of intestine, part unspecified, without perforation or abscess without bleeding. - Condition is Stable. - Discharge Instructions: Fall Prevention in the Home, Musculoskeletal Pain, Ovarian Cyst, Hip Pain, Cryotherapy, Heat Therapy. - Medication Reconciliation Form, Thank You Letter, Antibiotic Education, Prescription Opioid Use form. - Follow up: Cinda Briceno MD; When: 1 - 2 days; Reason: Recheck today's complaints, Continuance of care, Re-evaluation by your physician. Follow up: Emergency Department; When: As needed; Reason: Worsening of condition. Signatures: Dispatcher [employer] EDMS Altagracia Keyes RN RN aj1 Lolita Tyson, GANTRY CRANE OPERATOR-C GANTRY CRANE OPERATOR-CsnLeigh Ann Armstrong MD MD ma2 Elias Cloud RN RN rv Corrections: (The following items were deleted from the chart) 00:59 00:59 02/09/2018 00:59 Discharged to Home. Impression: Fall on same level from snw slipping, tripping and stumbling without subsequent striking against object; Pain in right hip. Condition is Stable. Forms are Medication Reconciliation Form, Thank You Letter, Antibiotic Education, Prescription Opioid Use. Follow up: Cinda Briceno; When: 1 - 2 days; Reason: Recheck today's complaints, Continuance of care, Re-evaluation by your physician. Follow up: Emergency Department; When: As needed; Reason: Worsening of condition. snw :17 00:59 02/09/2018 00:59 Discharged to Home. Impression: Fall on same level from snw slipping, tripping and stumbling without subsequent striking against object; Pain in right hip; Unspecified ovarian cysts. Condition is Stable. Forms are Medication Reconciliation Form, Thank You Letter, Antibiotic Education, Prescription Opioid Use. Follow up: Cinda Briceno; When: 1 - 2 days; Reason: Recheck today's complaints, Continuance of care, Re-evaluation by your physician. Follow up: Emergency Department; When: As needed; Reason: Worsening of condition. snw 01:25 01:17 02/09/2018 00:59 Discharged to Home. Impression: Fall on same level from rv slipping, tripping and stumbling without subsequent striking against object; Pain in right hip; Unspecified ovarian cysts; Diverticulosis of intestine, part unspecified, without perforation or abscess without bleeding. Condition is Stable. Discharge Instructions: Fall Prevention in the Home, Musculoskeletal Pain, Ovarian Cyst, Hip Pain, Cryotherapy, Heat Therapy. Forms are Medication Reconciliation Form, Thank You Letter, Antibiotic Education, Prescription Opioid Use. Follow up: Cinda Briceno; When: 1 - 2 days; Reason: Recheck today's complaints, Continuance of care, Re-evaluation by your physician. Follow up: Emergency Department; When: As needed; Reason: Worsening of condition. snw
[2018-02-09 01:43] VITALS: TEMP 98.1; O2SAT 100
[2018-02-09 01:47] VITALS: BP 107/76
--- NOTE | 2018-02-09 07:09 | RAD REPORT ---
EXAM DESCRIPTION: CT - Pelvis Wo Cont - 02/09/2018 2:22 am CLINICAL HISTORY: Right hip pain status post fall COMPARISON: None. TECHNIQUE: Computed axial tomography of the pelvis with coronal and sagittal reconstruction Preliminary report generated by virtual radiologic and reviewed prior to dictation \ All CT scans are performed using dose optimization technique as appropriate and may include automated exposure control or mA/KV adjustment according to patient size. FINDINGS: No fracture or dislocation is seen. The muscles are normal size and density. Significant hip joint effusion is not seen. Subcutaneous tissues are unremarkable Small area sclerosis within the proximal right femur may represent a bone island 4.5 centimeter right ovarian cyst without significant free fluid. Follow up ultrasound in a couple mo nths is recommended to assess to assess resolution IMPRESSION: No fracture is seen. If patient continues have symptoms to suggest an occult fracture MR I would be recommended.
== END 2018-02-09 01:25 | disposition home or self-care (01) ==
LOC: ER 20:52
DX: M25.551 Pain in right hip (principal); N83.209 Unspecified ovarian cyst, unspecified side; K57.30 Diverticulosis of large intestine without perforation or abscess without bleeding; W01.198A Fall on same level from slipping, tripping and stumbling with subsequent striking against other object, initial encounter; Y93.9 Activity, unspecified; Y92.9 Unspecified place or not applicable; Z91.040 Latex allergy status; Z91.048 Other nonmedicinal substance allergy status; E03.9 Hypothyroidism, unspecified; F31.9 Bipolar disorder, unspecified; F32.9 Major depressive disorder, single episode, unspecified
CPT/HCPCS: 72192; 81003; 81025; 99285

== ENCOUNTER 2018-04-10 22:36 | Emergency (ER) | payer OTHER ==
--- OUTSIDE RECORDS SUMMARY | 2018-04-10 22:37 | XMS REPORT ---
[...] Status Dosage System Date Date Chlordiazepoxide NDC 70194463050 5-2.5 MG Orally Oct 25, Apr 23, Active 1 capsule -Clidinium Once a day 2017 2018 Furosemide NDC 27184927724 20 mg Orally Oct 25, Active 1 tablet as Once a day 2017 needed for leg swelling Pantoprazole NDC 43854516102 20 mg Orally Oct 25, Active 1 tablet Sodium Once a day 2017 Results No Known Results Summary Purpose eClinicalWorks Submission
--- OUTSIDE RECORDS SUMMARY | 2018-04-10 22:37 | XMS REPORT ---
:1980 [facility] Address [address] [place] [address] [address] [place] [address] Care Team Providers Name Role Phone Unavailable Unavailable Unavailable Problems This patient has no known problems. Allergies, Adverse Reactions, Alerts This patient has no known allergies or adverse reactions. Medications This patient has no known medications.
--- OUTSIDE RECORDS SUMMARY | 2018-04-10 22:38 | XMS REPORT ---
:1980 Author Organization [employer] Care Team Providers Name Role Phone JamelCnida rokc Provider Role Unavailable Allergies No Known Allergies [...] End Status Dosage System Date Date Pantoprazole [facility] 82145416843 20 mg Orally Oct 25, Active 1 tablet Sodium Once a day 2017 Citalopram ND 03725313268 20 MG Orally Active 1 tablet Hydrobromide Once a day Chlordiazepoxide-C [facility] 38226262297 5-2.5 MG Oct 25Mar Active 1 capsule lidinium Orally Once a 2017 Imitrex [facility] 40859013149 50 MG Orally Active 1 tablet Twice a day as needed Synthroid [facility] 14808320411 300 MCG Orally Active 1 tablet Once a day on an empty stomach in the morning Furosemide ND 68061803399 20 mg Orally Oct 25, Active 1 tablet Once a day 2017 as needed for leg swelling Clonazepam [facility] [address]-45 2 MG Orally Active 1 tablet Twice daily as needed Cyclobenzaprine [facility] [address]-67 10 MG Orally Active 1 tablet HCl Twice a day as needed Results No Known Results Summary Purpose eClinicalWorks Submission
--- OUTSIDE RECORDS SUMMARY | 2018-04-10 22:38 | XMS REPORT ---
[...] End Status Dosage System Date Date Neurontin [facility] 93890954799 300 MG Orally Active 1 capsule Once a day Amitriptyline [facility] 66413439077 10 MG Orally Active 1 tablet HCl Once a day Topamax [facility] 56187424719 25 MG Orally Active 1 tablet Twice a day Zofran [facility] [address]-89 4 MG Orally Active 1 tablet every 6-8hrs Ultram [facility] 51667427862 50 MG Orally Active 1 tablet every 6 hrs as needed Pantoprazole [facility] 46418775365 20 mg Orally Oct 25, Active 1 tablet Sodium Once a day 2017 Chlordiazepoxide ND 38629887364 5-2.5 MG Orally Oct 25Mar Active 1 capsule -Clidinium Once a day 2017 Lyrica [facility] [address]-81 75 MG Orally Active 1 capsule Three times a day Robaxin [facility] 24804026641 500 MG Orally Active 1.5 every 4 hrs tablets Effexor XR [facility] 34289578950 75 MG Orally Active 1 capsule Once a day with food Furosemide [facility] 65759118746 20 mg Orally Aug 31, Active 1 tablet Once a day 2017 as needed for leg swelling Trazodone HCl [facility] 06273656020 50 MG Orally Active 1 tablet Once a day at bedtime as needed Protonix [facility] 36106901921 40 MG Orally Active 1 tablet Once a day Savella [facility] 04258865392 50 MG Orally Active 1 tablet Twice a day Results No Known Results Summary Purpose eClinicalWorks Submission
[2018-04-11 00:59] LABS: Absolute Lymphocytes (CBC) 0.7 K/uL (0.7-4.9); Absolute Monocytes 0.5 K/uL (0.1-1.3); Basophils % 0.2 % (0-1.3); Eosinophils % 0.4 % (0-4.4); Hematocrit 40.4 % (36.0-45.0); Lymphocytes % 12.9 % (15.3-44.8); MPV 8.4 fL (7.6-11.3); Monocytes % 10.5 % (3.3-12.3); RBC Red Blood Cell Count 4.58 M/uL (3.86-4.86)
[2018-04-11] MEDS ORDERED: MORPHINE 4 MG/ML SYR ONE (01:12)
[2018-04-11] MEDS ORDERED: ONDANSETRON 4 MG/2 ML VIAL ONE (01:12)
[2018-04-11 01:13] LABS: ALT/SGPT 20 U/L (12-78); AST/SGOT 7 U/L (15-37); Albumin 3.6 g/dL (3.4-5.0); Alkaline Phosphatase 83 U/L (45-117); BUN Blood Urea Nitrogen 10 mg/dL (7-18); Bicarbonate 26 mmol/L (21-32); Bilirubin Direct 0.1 mg/dL (0-0.2); Bilirubin Total 0.5 mg/dL (0.2-1.0); Glucose Level 103 mg/dL (74-106); Lipase 50 U/L (73-393); Potassium 3.8 mmol/L (3.5-5.1); Sodium Level 142 mmol/L (136-145)
[2018-04-11 01:35] LABS: Urine Blood 1+ (NEG); Urine Glucose NEGATIVE (NEG); Urine Protein TRACE (NEG); Urine pH 5.5 (5.0-7.0)
[2018-04-11] MEDS ORDERED: KETOROLAC 30 MG/ML INJ ONE (03:12)
--- NOTE | 2018-04-11 03:14 | ER ---
Nurse's Notes [facility] Name: Lavinia Jarrett Age: 37 yrs Sex: Female : 1980 Arrival Date: 04/10/2018 Time: 22:37 Bed 18 Private MD: Cinda Briceno Diagnosis: Unspecified abdominal pain;Diarrhea, unspecified Presentation: 04/10 23:02 Presenting complaint: Patient states: "I am having a diverticulitis attack" c/o bb abdominal pain radiating to back x 1 week then today developed severe diarrhea also passed out x 2 today. Transition of care: patient was not received from another setting of care. Onset of symptoms was April 03, 2018. Risk Assessment: Do you want to hurt yourself or someone else? Patient reports no desire to harm self or others. Initial Sepsis Screen: Does the patient meet any 2 criteria? No. Patient's initial sepsis screen is negative. Does the patient have a suspected source of infection? No. Patient's initial sepsis screen is negative. Care prior to arrival: None. 23:02 Method Of Arrival: Ambulatory bb 23:02 Acuity: KIKA 3 bb DOMINATRIX: 23:07 LMP 03/19/2018 bb Historical: - Allergies: 23:07 Latex, Natural Rubber; bb - Home Meds: 23:07 baclofen 10 mg Oral tab 1 1-2 tab BID [Active]; butrans 20 mcg/hr patch every week bb [Active]; Chlordiazepoxide Oral 1 cap 3 times per day [Active]; Cholestyramine Light Oral [Active]; clonazepam 2 mg Oral tab 1 tab 2 times per day [Active]; dicyclomine 20 mg Oral tab 1 tab 3 times per day [Active]; docusate sodium 100 mg Oral cap [Active]; hydrocortisone 10 mg Oral tab 1.5 tab 1 tab at 2pm [Active]; Lyrica 100 mg Oral 1 cap 3 times per day [Active]; methocarbamol 500 mg Oral tab 1 tabs BID [Active]; oxycarbazepine 150 mg BID [Active]; pantoprazole 40 mg Oral TbEC 1 tab once daily [Active]; Prednisone Oral [Active]; promethazine 25 mg Oral tab as needed [Active]; Savella 50 mg Oral tab 1 tab 2 times per day [Active]; solu-cortef [Active]; SUMATRIPTAN 50 mg [Active]; Synthroid 150 mcg Oral tab [Active]; tizanidine 4 mg Oral tab 1 tab BID [Active]; topiramate 25 mg Oral CSpX 1 cap once daily [Active]; topiramate 25 mg Oral CSpX 1 cap BID [Active]; tramadol 50 mg Oral tab as needed [Active]; trazodone 50 mg Oral tab 1 tab once a day [Active]; venlafaxine 150 mg Oral cp24 1 cap once daily [Active]; Vitamin D Oral daily [Active]; Zofran (as hydrochloride) 4 mg Oral tab 2 tabs every 8 hours [Active]; - PMHx: 23: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 - Social history:: Smoking status: Patient/guardian denies using tobacco. - Ebola Screening: : No symptoms or risks identified at this time. Screenin/15 00:00 Abuse screen: Denies threats or abuse. Nutritional screening: No deficits noted. jb4 Tuberculosis screening: No symptoms or risk factors identified. Fall Risk None identified. Assessment: 00:00 General: Appears in no apparent distress. uncomfortable, Behavior is calm, cooperative, jb4 appropriate for age. Pain: Complains of pain in abdomen Pain radiates to back Pain currently is 9 out of 10 on a pain scale. Quality of pain is described as stabbing. Neuro: Level of Consciousness is awake, alert, obeys commands, Oriented to person, place, time, situation. Cardiovascular: Patient's skin is warm and dry. Respiratory: Airway is patent Respiratory effort is even, unlabored, Respiratory pattern is regular, symmetrical. GI: Abdomen is non-distended, obese, Bowel sounds present X 4 quads. Abd is soft X 4 quads Abdomen is tender to palpation X 4 quads. : No signs and/or symptoms were reported regarding the genitourinary system. EENT: No signs and/or symptoms were reported regarding the EENT system. Derm: Skin is intact, Skin is pink, warm \\T\\ dry. Musculoskeletal: Circulation, motion, and sensation intact. 01:00 Reassessment: Patient appears in no apparent distress at this time. Patient and/or jb4 family updated on plan of care and expected duration. Pain level reassessed. Patient is alert, oriented x 3, equal unlabored respirations, skin warm/dry/pink. 02:00 Reassessment: Patient appears in no apparent distress at this time. Patient and/or jb4 family updated on plan of care and expected duration. Pain level reassessed. Patient is alert, oriented x 3, equal unlabored respirations, skin warm/dry/pink. 03:00 Reassessment: Patient appears in no apparent distress at this time. Patient and/or jb4 family updated on plan of care and expected duration. Pain level reassessed. Patient is alert, oriented x 3, equal unlabored respirations, skin warm/dry/pink. Pt reports that the morphine did not help the pain. Provider notified, see [facility] for orders. Vital Signs: 04/10 23:07 BP 130 / 76; Pulse 88; Resp 16 S; Temp 98.6(O); Pulse Ox 100% on R/A; Weight 120.66 kg bb (R); Height 5 ft. 5 in. (165.10 cm) (R); Pain 9/10; 04/11 00:00 BP 114 / 72; Pulse 82; Resp 16; Pulse Ox 99% on R/A; Pain 9/10; jb4 01:33 BP 124 / 61; Pulse 79; Resp 16; Pulse Ox 99% on R/A; mt 02:58 BP 118 / 72; Pulse 118; Resp 18; Pulse Ox 96% on R/A; jb4 04/10 23:07 Body Mass Index 44.26 (120.66 kg, 165.10 cm) ED Course: 04/10 22:37 Patient arrived in ED. es 22:37 Cinda Briceno MD is Private Physician. es 23:03 Triage completed. bb 23:07 Arm band placed on Patient placed in waiting room, Patient notified of wait time. bb 04/11 00:00 Johnny Diana, KESHAV is Primary Nurse. jb4 00:00 Patient has correct armband on for positive identification. Bed in low position. Call jb4 light in reach. Side rails up X 1. Pulse ox on. NIBP on. 00:05 Jas Cuenca NP is PHCP. pm1 00:05 Javy Thorpe MD is Attending Physician. pm1 01:[address] via wheelchair. kw1 02:01 CT completed. Patient tolerated procedure well. Patient moved back from CT. kw1 02:35 CT completed. Patient tolerated procedure well. Patient moved back from CT. kw1 02:35 CT Abd/Pelvis - W/Contrast: IV contrast only In Process Unspecified. EDMS 03:44 No provider procedures requiring assistance completed. IV discontinued, intact, jb4 bleeding controlled. Administered Medications: 01:12 Drug: Zofran 4 mg Route: IVP; Site: right antecubital; jb4 03:25 Follow up: Response: No adverse reaction; Nausea is decreased jb4 01:15 Drug: morphine 4 mg Route: IVP; Site: right antecubital; jb4 02:58 Follow up: Response: No adverse reaction; Pain is unchanged, physician notified jb4 03:05 Drug: TORadol 30 mg Route: IVP; Site: right antecubital; jb4 03:43 Follow up: Response: No adverse reaction; Pain is decreased jb4 Outcome: 03:14 Discharge ordered by MD. pm1 03:44 Discharged to home ambulatory, with family. jb4 03:44 Condition: stable 03:44 Discharge instructions given to patient, family, Instructed on discharge instructions, follow up and referral plans. medication usage, Demonstrated understanding of instructions, follow-up care, medications, Prescriptions given X 1. 03:44 Patient left the ED. jb4 Signatures: Dispatcher [employer] EDSC Chandni Garcia Brenda, RN RN bb Marinas, Patrick, JOHNNY SUPERVISOR BROADLOOM pm1 Johnny Diana RN RN jb4 Thompson, Moriah mt Wilhelm, Kimberly kw
--- NOTE | 2018-04-11 03:15 | EDPHYS ---
Physician Documentation [facility] Name: Lavinia Jarrett Age: 37 yrs Sex: Female : 1980 Arrival Date: 04/10/2018 Time: 22:37 Bed 18 Private MD: Cinda Briceno ED Physician Javy Thorpe HPI: 04/11 01:00 This 37 yrs old Female presents to ER via Ambulatory with complaints of pm1 Abdominal Pain. 01:00 The patient presents with abdominal pain in the left lower quadrant. Onset: The pm1 symptoms/episode began/occurred yesterday. The symptoms radiate to the left flank. Associated signs and symptoms: Pertinent positives: diarrhea, Pertinent negatives: nausea and vomiting, blood in stools, chest pain, shortness of breath. The symptoms are described as achy. Modifying factors: The symptoms are alleviated by nothing, the symptoms are aggravated by nothing. Severity of pain: in the emergency department the pain is actually worse. The patient has not recently seen a physician. 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 23:07 LMP 03/19/2018 bb Historical: - Allergies: 23:07 Latex, Natural Rubber; bb - Home Meds: 23:07 baclofen 10 mg Oral tab 1 1-2 tab BID [Active]; butrans 20 mcg/hr patch every week bb [Active]; Chlordiazepoxide Oral 1 cap 3 times per day [Active]; Cholestyramine Light Oral [Active]; clonazepam 2 mg Oral tab 1 tab 2 times per day [Active]; dicyclomine 20 mg Oral tab 1 tab 3 times per day [Active]; docusate sodium 100 mg Oral cap [Active]; hydrocortisone 10 mg Oral tab 1.5 tab 1 tab at 2pm [Active]; Lyrica 100 mg Oral 1 cap 3 times per day [Active]; methocarbamol 500 mg Oral tab 1 tabs BID [Active]; oxycarbazepine 150 mg BID [Active]; pantoprazole 40 mg Oral TbEC 1 tab once daily [Active]; Prednisone Oral [Active]; promethazine 25 mg Oral tab as needed [Active]; Savella 50 mg Oral tab 1 tab 2 times per day [Active]; solu-cortef [Active]; SUMATRIPTAN 50 mg [Active]; Synthroid 150 mcg Oral tab [Active]; tizanidine 4 mg Oral tab 1 tab BID [Active]; topiramate 25 mg Oral CSpX 1 cap once daily [Active]; topiramate 25 mg Oral CSpX 1 cap BID [Active]; tramadol 50 mg Oral tab as needed [Active]; trazodone 50 mg Oral tab 1 tab once a day [Active]; venlafaxine 150 mg Oral cp24 1 cap once daily [Active]; Vitamin D Oral daily [Active]; Zofran (as hydrochloride) 4 mg Oral tab 2 tabs every 8 hours [Active]; - PMHx: 23:07 Pendleton's disease; Bipolar disorder; Chronic pain; Depression; Fibromyalgia; bb Hypothyroidism; ibs; Migraines; Schizophrenia; - PSHx: 23:07 Hernia repair; Cholecystectomy; sinus surgery; right fallopian tube removal; bb - Immunization history:: Adult Immunizations not up to date, Flu vaccine is up to date. - Social history:: Smoking status: Patient/guardian denies using tobacco. - Ebola Screening: : No symptoms or risks identified at this time. ROS: 04/11 01:00 Constitutional: Negative for fever, chills, and weight loss, Eyes: Negative for injury, pm1 pain, redness, and discharge, ENT: Negative for injury, pain, and discharge, Neck: Negative for injury, pain, and swelling, Cardiovascular: Negative for chest pain, palpitations, and edema, Respiratory: Negative for shortness of breath, cough, wheezing, and pleuritic chest pain. Back: Negative for injury and pain, : Negative for injury, bleeding, discharge, and swelling, MS/Extremity: Negative for injury and deformity, Skin: Negative for injury, rash, and discoloration, Neuro: Negative for headache, weakness, numbness, tingling, and seizure. Abdomen/GI: Positive for abdominal pain, diarrhea, Negative for nausea and vomiting. Exam: 01:00 Constitutional: This is a well developed, well nourished patient who is awake, alert, pm1 and in no acute distress. Head/Face: Normocephalic, atraumatic. Eyes: Pupils equal round and reactive to light, extra-ocular motions intact. Lids and lashes normal. Conjunctiva and sclera are non-icteric and not injected. Cornea within normal limits. Periorbital areas with no swelling, redness, or edema. ENT: Nares patent. No nasal discharge, no septal abnormalities noted. Tympanic membranes are normal and external auditory canals are clear. Oropharynx with no redness, swelling, or masses, exudates, or evidence of obstruction, uvula midline. Mucous membranes moist. Neck: Trachea midline, no thyromegaly or masses palpated, and no cervical lymphadenopathy. Supple, full range of motion without nuchal rigidity, or vertebral point tenderness. No Meningismus. Chest/axilla: Normal chest wall appearance and motion. Nontender with no deformity. No lesions are appreciated. Cardiovascular: Regular rate and rhythm with a normal S1 and S2. No gallops, murmurs, or rubs. Normal PMI, no JVD. No pulse deficits. Respiratory: Lungs have equal breath sounds bilaterally, clear to auscultation and percussion. No rales, rhonchi or wheezes noted. No increased work of breathing, no retractions or nasal flaring. 01:00 Back: No spinal tenderness. No costovertebral tenderness. Full range of motion. Skin: Warm, dry with normal turgor. Normal color with no rashes, no lesions, and no evidence of cellulitis. MS/ Extremity: Pulses equal, no cyanosis. Neurovascular intact. Full, normal range of motion. 01:00 Abdomen/GI: Inspection: obese Bowel sounds: normal, Palpation: soft, in all quadrants, mild abdominal tenderness, in the left lower quadrant, mass, is not appreciated, rebound tenderness, is not appreciated. 01:00 Neuro: Orientation: is normal, Motor: is normal. Vital Signs: 04/10 23:07 BP 130 / 76; Pulse 88; Resp 16 S; Temp 98.6(O); Pulse Ox 100% on R/A; Weight 120.66 kg bb (R); Height 5 ft. 5 in. (165.10 cm) (R); Pain 9/10; 04/11 00:00 BP 114 / 72; Pulse 82; Resp 16; Pulse Ox 99% on R/A; Pain 9/10; jb4 01:33 BP 124 / 61; Pulse 79; Resp 16; Pulse Ox 99% on R/A; mt 02:58 BP 118 / 72; Pulse 118; Resp 18; Pulse Ox 96% on R/A; jb4 04/10 23:07 Body Mass Index 44.26 (120.66 kg, 165.10 cm) bb MDM: 00:21 Patient medically screened. pm1 03:12 Data reviewed: vital signs. Data interpreted: Pulse oximetry: on room air is 99 %. pm1 Interpretation: normal. Counseling: I had a detailed discussion with the patient and/or guardian regarding: the historical points, exam findings, and any diagnostic results supporting the discharge/admit diagnosis, lab results, radiology results, to return to the emergency department if symptoms worsen or persist or if there are any questions or concerns that arise at home, radiology report mild enteritis. bilateral ovarian cysts with recommended follow up in 6-12 weeks. 04/11 00:22 Order name: Basic Metabolic Panel; Complete Time: 01:15 pm1 04/11 00:22 Order name: CBC with Diff; Complete Time: 01:01 pm1 04/11 00:22 Order name: Creatinine for Radiology; Complete Time: 01:15 pm1 04/11 00:22 Order name: Hepatic Function; Complete Time: 01:15 pm1 04/11 00:22 Order name: Lipase; Complete Time: 01:15 pm1 04/11 01:24 Order name: Urine Dipstick--Ancillary (enter results) ag4 04/11 00:22 Order name: IV Saline Lock; Complete Time: 00:38 pm04/11 00:22 Order name: Labs collected and sent; Complete Time: 00:38 pm04/11 00:22 Order name: Urine Dipstick-Ancillary (obtain specimen); Complete Time: 02:49 pm1 04/11 00:42 Order name: CT Abd/Pelvis - W/Contrast: IV contrast only pm1 04/11 02:36 Order name: Urine --Ancillary (enter results) ag4 04/11 00:22 Order name: Urine Test (obtain specimen); Complete Time: 02:49 pm1 Administered Medications: 01:12 Drug: Zofran 4 mg Route: IVP; Site: right antecubital; jb4 03:25 Follow up: Response: No adverse reaction; Nausea is decreased jb4 01:15 Drug: morphine 4 mg Route: IVP; Site: right antecubital; jb4 02:58 Follow up: Response: No adverse reaction; Pain is unchanged, physician notified jb4 03:05 Drug: TORadol 30 mg Route: IVP; Site: right antecubital; jb4 03:43 Follow up: Response: No adverse reaction; Pain is decreased jb4 Disposition: 06:16 Co-signature as Attending Physician, Javy Thorpe MD I agree with the assessment and tw4 plan of care. Disposition: 04/11/18 03:14 Discharged to Home. Impression: Unspecified abdominal pain, Diarrhea, unspecified. - Condition is Stable. - Discharge Instructions: Abdominal Pain, Adult, Food Choices to Help Relieve Diarrhea, Adult, Diarrhea, Adult, Viral Gastroenteritis, Adult. - Prescriptions for Bentyl 20 mg Oral Tablet - take 1 tablet by ORAL route every 6 hours As needed; 20 tablet. - Medication Reconciliation Form, Thank You Letter, Antibiotic Education, Prescription Opioid Use form. - Follow up: Emergency Department; When: As needed; Reason: Worsening of condition. Follow up: Private Physician; When: 2 - 3 days; Reason: Recheck today's complaints, Continuance of care, Re-evaluation by your physician. - Problem is new. - Symptoms have improved. Signatures: Dispatcher [employer] EDMS Karley Martines RN RN Jas Norwood, JOHNNY FORMAT PROOFREADER pm1 Johnny Diana RN RN jb4 Javy Thorpe MD MD tw4 Corrections: (The following items were deleted from the chart) 03:44 03:14 04/11/2018 03:14 Discharged to Home. Impression: Unspecified abdominal pain; jb4 Diarrhea, unspecified. Condition is Stable. Forms are Medication Reconciliation Form, Thank You Letter, Antibiotic Education, Prescription Opioid Use. Follow up: Emergency Department; When: As needed; Reason: Worsening of condition. Follow up: Private Physician; When: 2 - 3 days; Reason: Recheck today's complaints, Continuance of care, Re-evaluation by your physician. Problem is new. Symptoms have improved. pm1
[2018-04-11 05:14] VITALS: TEMP 98.6
[2018-04-11 05:24] VITALS: BP 118/72; O2SAT 96
--- NOTE | 2018-04-11 19:09 | RAD REPORT ---
EXAM DESCRIPTION: CT - Abdomen Pelvis W Contrast - 04/11/2018 2:58 am CLINICAL HISTORY: The patient is 37 years old and is Female; LLQ pain and left flank pain. COMPARISON: No relevant prior studies available. TECHNIQUE: Axial computed tomography images of the abdomen and pelvis with intravenous contrast. Sag ittal and coronal reformatted images were created and reviewed. This CT exam was performed using one or more of the following dose reduction techniques: Automated exposure control, adjustment of the mA and/or kV according to patient size, and/or use of iterative reconstruction technique. FINDINGS: Lung bases: Unremarkable. No mass. No consolidation. ABDOMEN: Liver: There is a diffuse increase in hepatic parenchymal density, consistent with fatty infiltration . Gallbladder and bile ducts: Surgical clips are present in the right upper quadrant, consistent with p revious cholecystectomy. Mild biliary dilatation is present. Pancreas: No ductal dilation. No mass. Spleen: Unremarkable. Adrenals: Unremarkable. No mass. Kidneys and ureters: Unremarkable. No solid mass. No hydronephrosis. Stomach and bowel: Distended with food contents. The small bowel proximally is normal in caliber. A f ew distal small bowel loops are fluid-filled and slightly prominent. Stool is present throughout the colon. There is no mucosal thickening or evidence of bowel obstruction. PELVIS: Appendix: The appendix is normal in caliber without surrounding inflammation. Bladder: The bladder is not well distended. Reproductive: A slightly oblong 6.3 x 2.2 cm right ovarian cystic lesion is present. Small left ovari an 1.8 cm cyst is present. The uterus is unremarkable. ABDOMEN and PELVIS: Intraperitoneal space: Unremarkable. No free air. No significant fluid collection. Bones/joints: No acute fracture. Soft tissues: The soft tissues are normal. Vasculature: Unremarkable. No abdominal aortic aneurysm. Lymph nodes: Unremarkable. No enlarged lymph nodes. IMPRESSION: 1. Nonspecific prominent fluid-filled mid small bowel loops which may be secondary to mild enteritis. There is no bowel obstruction. 2. Bilateral ovarian cystic lesions suggestive of cyst. However, given the size of the right ovarian cyst, follow-up pelvic ultrasound in 6-12 weeks is recommended. Electronically signed by Sarah Mathis MD 04/11/2018 2:40 AM TOOL GRINDER SET UP OPERATOR GEAR Due to temporary technical issues with the PACS/Fluency reporting system, reports are being signed by the in house radiologist as a courtesy to ensure prompt reporting. The interpreting radiologist is f ully responsible for the content of the report.
== END 2018-04-11 03:44 | disposition home or self-care (01) ==
LOC: ER 22:36
DX: R19.7 Diarrhea, unspecified (principal); E03.9 Hypothyroidism, unspecified; F31.9 Bipolar disorder, unspecified; F32.9 Major depressive disorder, single episode, unspecified; F20.9 Schizophrenia, unspecified; Z91.040 Latex allergy status; Z91.048 Other nonmedicinal substance allergy status
CPT/HCPCS: 36415; 74177; 80048; 80076; 81003; 81025; 83690; 85025; 96374; 96375; 99284; J2405; Q9967

== ENCOUNTER 2018-05-13 12:46 | Emergency (ER) | payer OTHER ==
--- OUTSIDE RECORDS SUMMARY | 2018-05-13 12:49 | XMS REPORT ---
:1980 [facility] Team Providers Name Role Phone Cinda [...] End Status Dosage System Date Date Neurontin [facility] 48211360553 300 MG Orally Active 1 capsule Once a day Amitriptyline [facility] 71105405095 10 MG Orally Active 1 tablet HCl Once a day Topamax [facility] 04507154240 25 MG Orally Active 1 tablet Twice a day Zofran [facility] [address]-62 4 MG Orally Active 1 tablet every 6-8hrs Ultram [facility] 16155464891 50 MG Orally Active 1 tablet every 6 hrs as needed Pantoprazole [facility] 92751985828 20 mg Orally Oct 25, Active 1 tablet Sodium Once a day 2017 Chlordiazepoxide [place] 37514012932 5-2.5 MG Orally Oct 25Mar Active 1 capsule -Clidinium Once a day 2017 Lyrica [facility] [address]-48 75 MG Orally Active 1 capsule Three times a day Robaxin [facility] 51600333489 500 MG Orally Active 1.5 every 4 hrs tablets Effexor XR [facility] 62377363031 75 MG Orally Active 1 capsule Once a day with food Furosemide [facility] 30464817328 20 mg Orally Aug 31, Active 1 tablet Once a day 2017 as needed for leg swelling Trazodone HCl [facility] 40300895474 50 MG Orally Active 1 tablet Once a day at bedtime as needed Protonix [facility] 55987303175 40 MG Orally Active 1 tablet Once a day Savella [facility] 95784738687 50 MG Orally Active 1 tablet Twice a day Results No Known Results Summary Purpose eClinicalWorks Submission
--- OUTSIDE RECORDS SUMMARY | 2018-05-13 12:49 | XMS REPORT ---
[...] End Status Dosage System Date Date Pantoprazole [facility] 31157515022 20 mg Orally Oct 25, Active 1 tablet Sodium Once a day 2017 Citalopram [place] 21450215621 20 MG Orally Active 1 tablet Hydrobromide Once a day Chlordiazepoxide-C [facility] 88522875392 5-2.5 MG Oct 25Mar Active 1 capsule lidinium Orally Once a [address] [facility] 67314625534 50 MG Orally Active 1 tablet Twice a day as needed Synthroid [facility] 72830872615 300 MCG Orally Active 1 tablet Once a day on an empty stomach in the morning Furosemide ND 99858581510 20 mg Orally Oct 25, Active 1 tablet Once a day 2017 as needed for leg swelling Clonazepam [facility] [address]-32 2 MG Orally Active 1 tablet Twice daily as needed Cyclobenzaprine [facility] [address]-55 10 MG Orally Active 1 tablet HCl Twice a day as needed Results No Known Results Summary Purpose eClinicalWorks Submission
--- OUTSIDE RECORDS SUMMARY | 2018-05-13 12:49 | XMS REPORT ---
:1980 Author Organization [employer] Care Team Providers Name Role Phone Cinda Briceno Provider Role Unavailable Allergies No Known Allergies Problems Problem Type Condition Code Onset Dates Condition Status Problem Hypothyroidism E03.9 Active Problem Bipolar affective disorder, F31.9 Active remission status unspecified Problem Insomnia, unspecified type G47.00 Active Problem Diverticulosis of intestine without K57.90 Active bleeding, unspecified intestinal tract location Problem Irritable bowel syndrome with K58.1 Active constipation Problem Gastroesophageal reflux disease, K21.9 Active esophagitis presence not specified Problem Hypothyroidism, unspecified type E03.9 Active Problem CPAP (continuous positive airway Z99.89 Active pressure) dependence Problem Abdominal pain, unspecified R10.9 Active abdominal location Problem Migraine without status G43.909 Active migrainosus, not intractable, unspecified migraine type Problem Gallstone K80.20 Active Problem Obstructive sleep apnea G47.33 Active Problem Foot pain M79.673 Active Problem Bipolar disorder F31.9 Active Problem Depression with anxiety F41.8 Active Problem Muscle weakness M62.81 Active Problem Chronic pain syndrome G89.4 Active Problem Fibromyalgia M79.7 Active Medications No Known Medications Results No Known Results Summary Purpose eClinicalWorks Submission
--- OUTSIDE RECORDS SUMMARY | 2018-05-13 12:49 | XMS REPORT ---
:1980 [facility] Address [address] [place] [address] [address] [place] [address] Care Team Providers Name Role Phone Unavailable Unavailable Unavailable Problems This patient has no known problems. Allergies, Adverse Reactions, Alerts This patient has no known allergies or adverse reactions. Medications This patient has no known medications.
--- OUTSIDE RECORDS SUMMARY | 2018-05-13 12:49 | XMS REPORT ---
:1980 Author Organization [employer] Care Team Providers Name Role Phone Janak Cinda Provider Role Unavailable Allergies, Adverse Reactions, Alerts Substance Reaction Event Type N.K.D.A. Info Not Available Non Drug Allergy Problems Problem Type Condition Code Onset Dates Condition Status Problem Hypothyroidism E03.9 Active Problem Bipolar affective disorder, F31.9 Active remission status unspecified Problem Insomnia, unspecified type G47.00 Active Problem Diverticulosis of intestine without K57.90 Active bleeding, unspecified intestinal tract location Assessment Abdominal pain, unspecified R10.9 Active abdominal location Problem Irritable bowel syndrome with K58.1 Active constipation Assessment Diverticulosis of intestine without K57.90 Active bleeding, unspecified intestinal tract location Assessment Gastroesophageal reflux disease, K21.9 Active esophagitis presence not specified Problem Gastroesophageal reflux disease, K21.9 Active esophagitis presence not specified Problem Hypothyroidism, unspecified type E03.9 Active Problem CPAP (continuous positive airway Z99.89 Active pressure) dependence Problem Abdominal pain, unspecified R10.9 Active abdominal location Problem Migraine without status G43.909 Active migrainosus, not intractable, unspecified migraine type Problem Gallstone K80.20 Active Problem Obstructive sleep apnea G47.33 Active Assessment Irritable bowel syndrome with K58.1 Active constipation Problem Foot pain M79.673 Active Problem Bipolar disorder F31.9 Active Problem Depression with anxiety F41.8 Active Problem Muscle weakness M62.81 Active Assessment Chronic pain syndrome G89.4 Active Problem Chronic pain syndrome G89.4 Active Problem Fibromyalgia M79.7 Active Medications Medication Code Code Instructions Start End Status Dosage System Date Date Synthroid [facility] 48968100110 300 MCG Orally Active 1 tablet Once a day on an empty stomach in the morning Imitrex [facility] 68458929117 50 MG Orally Active 1 tablet Twice a day as needed Chlordiazepoxide-C [facility] 95487245964 5-2.5 MG Orally Oct 25July Active 1 capsule lidinium Three times a 2017 Protonix [facility] 40457855049 40 MG Orally Active 1 tablet Once a day Citalopram [facility] 28665475049 20 MG Orally Active 1 tablet Hydrobromide Once a day Topamax [facility] 30157510251 25 MG Orally Active 1 tablet Twice a day Clonazepam [facility] 27750421734 2 MG Orally Active 1 tablet Twice daily as needed Cyclobenzaprine [facility] 76644830920 10 MG Orally Active 1 tablet HCl Twice a day as needed Savella [facility] 84523385677 50 MG Orally Active 1 tablet Twice a day Amitriptyline HCl [facility] 48084268325 10 MG Orally Active 1 tablet Once a day Furosemide [facility] 33128589531 20 mg Orally Active 1 tablet Once a day as needed for leg swelling Robaxin [facility] 71472707651 500 MG Orally Active 1.5 every 4 hrs tablets Pantoprazole [facility] 68792259959 20 mg Orally Oct 25, Active 1 tablet Sodium Once a day 2018 Ultram [facility] 21062751444 50 MG Orally Active 1 tablet every 6 hrs as needed Neurontin [facility] 89523566570 300 MG Orally Active 1 capsule Once a day Lyrica [facility] 94971259448 75 MG Orally Active 1 capsule Three times a day Zofran [facility] 50143707918 4 MG Orally Active 1 tablet every 6-8hrs Trazodone HCl [facility] 36148405365 50 MG Orally Active 1 tablet Once a day at bedtime as needed Effexor XR [facility] 43950337214 75 MG Orally Active 1 capsule Once a day with food Movantik [facility] 51739525844 25 mg Orally Apr 22July Active 1 tablet Once a day 2018, in the 2018 morning Results No Known Results Summary Purpose [employer] Submission
--- OUTSIDE RECORDS SUMMARY | 2018-05-13 12:49 | XMS REPORT ---
[...] Status Dosage System Date Date Chlordiazepoxide NDC 84750049452 5-2.5 MG Orally Oct 25, Apr 23, Active 1 capsule -Clidinium Once a day 2017 2018 Furosemide NDC 23241492628 20 mg Orally Oct 25, Active 1 tablet as Once a day 2017 needed for leg swelling Pantoprazole NDC 45060209626 20 mg Orally Oct 25, Active 1 tablet Sodium Once a day 2017 Results No Known Results Summary Purpose [employer]Works Submission
[2018-05-13] MEDS ORDERED: HYDROCORTISONE SUC 100 MG INJ ONE (13:44)
[2018-05-13] MEDS ORDERED: NA CHLORIDE 0.9% 1,000 ML ONE (13:45)
[2018-05-13] MEDS ORDERED: MECLIZINE HCL 12.5 MG TAB ONE (13:45)
[2018-05-13] MEDS ORDERED: ONDANSETRON 4 MG/2 ML VIAL ONE (13:47)
[2018-05-13 13:50] LABS: Absolute Lymphocytes (CBC) 0.9 K/uL (0.7-4.9); Absolute Monocytes 0.4 K/uL (0.1-1.3); Absolute Neutrophil 4.8 K/uL (1.8-8.0); Basophils % 0.3 % (0-1.3); Eosinophils % 0.9 % (0-4.4); Hematocrit 38.9 % (36.0-45.0); Lymphocytes % 15.1 % (15.3-44.8); MPV 8.1 fL (7.6-11.3); Monocytes % 5.7 % (3.3-12.3); RBC Red Blood Cell Count 4.38 M/uL (3.86-4.86)
[2018-05-13 14:09] LABS: Albumin 3.5 g/dL (3.4-5.0); Bilirubin Direct 0.1 mg/dL (0-0.2); Bilirubin Total 0.3 mg/dL (0.2-1.0); Potassium 3.8 mmol/L (3.5-5.1); Protein, Total 6.9 g/dL (6.4-8.2)
--- NOTE | 2018-05-13 15:40 | RAD REPORT ---
EXAM DESCRIPTION: CT - Abdomen Pelvis W Contrast - 05/13/2018 3:18 pm CLINICAL HISTORY: Abdominal pain/left flank pain COMPARISON: March 2018 TECHNIQUE: Computed axial tomography of the abdomen pelvis was obtained. 100 cc Isovue-300 was admin istered intravenously. Oral contrast was not requested which limits evaluation of bowel. All CT scans are performed using dose optimization technique as appropriate and may include automated exposure control or mA/KV adjustment according to patient size. FINDINGS: Small liver calcification unchanged. Cholecystectomy Spleen, pancreas, adrenal and kidneys appear unremarkable. There is no evidence of diverticulitis. The appendix is normal 5.8 centimeter right ovarian cystic mass has mildly decreased in size. Previously it measured 6.1 marni timeters. 2.5 centimeter left ovarian cyst minimally decreased in size. No significant free fluid. Small uterine fibroid It appears that there has been a ventral hernia repair. IMPRESSION: 5.8 centimeter right ovarian cystic mass mildly decreased in size likely benign. Follow up ultrasound in a couple months recommended for re-evaluation.
[2018-05-13 16:12] LABS: Urine Blood 2+ (NEG); Urine Glucose NEGATIVE (NEG); Urine Protein NEGATIVE (NEG); Urine Specific Gravity 1.025 (1.005-1.030)
[2018-05-13 16:13] LABS: Urine Specific Gravity 1.025 (1.005-1.030)
--- NOTE | 2018-05-13 16:38 | ER ---
Nurse's Notes [facility] Name: Lavinia Jarrett Age: 37 yrs Sex: Female : 1980 Arrival Date: 05/13/2018 Time: 12:49 Bed 7 Private MD: Cinda Briceno Diagnosis: Addisonian crisis Presentation: 05/13 12:54 Presenting complaint: Patient states: dizziness, lethargic, generalized weakness, left sv flank pain, vaginal bleeding since about Saturday. Transition of care: patient was not received from another setting of care. Onset of symptoms was April 2018. Care prior to arrival: None. 12:54 Method Of Arrival: Ambulatory sv 12:54 Acuity: KIKA 3 sv 13:00 Risk Assessment: Do you want to hurt yourself or someone else? Patient reports no sg desire to harm self or others. Initial Sepsis Screen: Does the patient meet any 2 criteria? No. Patient's initial sepsis screen is negative. Does the patient have a suspected source of infection? Yes: Acute abdominal pain. 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 - Social history:: Smoking status: Patient/guardian denies using tobacco. - Ebola Screening: : Patient negative for fever greater than or equal to 101.5 degrees Fahrenheit, and additional compatible Ebola Virus Disease symptoms Patient denies exposure to infectious person Patient denies travel to an Ebola-affected area in the 21 days before illness onset No symptoms or risks identified at this time. Screenin:15 Abuse screen: Denies threats or abuse. Denies injuries from another. Nutritional sg screening: No deficits noted. Tuberculosis screening: No symptoms or risk factors identified. Never had TB. Fall Risk None identified. Assessment: 13:00 General: Appears in no apparent distress. comfortable, well groomed, well developed, sg well nourished, Behavior is calm, cooperative, appropriate for age. Pain: Complains of pain in left lower quadrant Quality of pain is described as aching, sharp. Neuro: Level of Consciousness is awake, alert, obeys commands. Cardiovascular: Patient's skin is warm and dry. Respiratory: Airway is patent Respiratory effort is even, unlabored, Respiratory pattern is regular, symmetrical. GI: Abdomen is flat, non-distended. GI: Bowel sounds present X 4 quads. Abd is soft X 4 quads Abdomen is tender to palpation in left lower quadrant. : No signs and/or symptoms were reported regarding the genitourinary system. EENT: No signs and/or symptoms were reported regarding the EENT system. Derm: Skin is intact, is healthy with good turgor, Skin is dry, Skin is normal, Skin temperature is warm. Musculoskeletal: No signs and/or symptoms reported regarding the musculoskeletal system. Vital Signs: 12:56 BP 125 / 90; Pulse 86; Resp 16; Temp 98; Weight 118.84 kg; Height 5 ft. 5 in. (165.10 sv cm); 17:00 BP 122 / 82; Pulse 82; Resp 17; Temp 98.2; Pulse Ox 99% on R/A; sg 12:56 Body Mass Index 43.60 (118.84 kg, 165.10 cm) sv ED Course: 12:49 Patient arrived in ED. mr 12:49 Cinda Briceno MD is Private Physician. mr 12:55 Triage completed. sv 12:56 Arm band placed on. sv 12:58 Josue Dumont, KESHAV is Primary Nurse. sg 12:59 Armand Maria PA is PHCP. jr8 12:59 Shabbir Hendrix MD is Attending Physician. jr8 13:10 No provider procedures requiring assistance completed. sg 13:38 Initial lab(s) drawn, by me, sent to lab. Inserted saline lock: 20 gauge in right em1 antecubital area, using aseptic technique. Blood collected. 14:32 Radiology exam delayed due to test not completed at this time. vm2 15:19 CT Abd/Pelvis - W/Contrast In Process Unspecified. EDMS 17:00 IV discontinued, intact, bleeding controlled, No redness/swelling at site. Pressure sg dressing applied. 17:16 Patient has correct armband on for positive identification. Bed in low position. Call sg light in reach. Side rails up X2. Pulse ox on. NIBP on. Warm blanket given. Head of bed elevated. Administered Medications: 13:52 Drug: NS 0.9% 1000 ml Route: IV; Rate: 1000 ml; Site: right antecubital; sg 15:00 Follow up: Response: No adverse reaction; IV Status: Completed infusion; IV Intake: sg 1000ml 13:52 Drug: Zofran 4 mg Route: IVP; Site: right antecubital; sg 14:42 Follow up: Response: No adverse reaction; Nausea is decreased sg 13:55 Drug: HydroCORTISONE 100 mg Route: IVP; Site: right antecubital; sg 14:20 Follow up: Response: No adverse reaction sg 14:20 Drug: Meclizine 25 mg Route: PO; sg 15:00 Follow up: Response: No adverse reaction sg Intake: 15:00 IV: 1000ml; Total: 1000ml. sg Outcome: 16:38 Discharge ordered by MD. whitman 17:00 Discharged to home ambulatory, with family. sg 17:00 Condition: good 17:00 Discharge instructions given to patient, Instructed on discharge instructions, follow up and referral plans. safety practices, Demonstrated understanding of instructions, follow-up care, medications, Prescriptions given X 1. 17:07 Patient left the ED. sg Signatures: Dispatcher [employer] Emilie Gilman RN RN sv Gay, Steven, RN RN sg Rivera, Mary mr Martinez, Regan em1 Armand Maria PA PA jr8 McGuire, Victoria vm2
--- NOTE | 2018-05-13 16:38 | EDPHYS ---
Physician Documentation [facility] Name: Lavinia Jarrett Age: 37 yrs Sex: Female : 1980 Arrival Date: 05/13/2018 Time: 12:49 Bed 7 Private MD: Cinda Briceno ED Physician Shabbir Hendrix HPI: 05/13 14:25 This 37 yrs old Female presents to ER via Ambulatory with complaints of jr8 Abdominal Pain, Dizziness. 14:25 The patient presents with abdominal pain in the left lower quadrant. Onset: The jr8 symptoms/episode began/occurred acutely, yesterday. The symptoms radiate to left back. Associated signs and symptoms: Pertinent positives: nausea. The symptoms are described as sharp. Modifying factors: The symptoms are alleviated by nothing, the symptoms are aggravated by nothing. Severity of pain: At its worst the pain was moderate in the emergency department the pain has improved mildly. The patient has experienced a previous episode. The patient has not recently seen a physician. Stated that she has history of diverticulitis. Started with abdominal pain to left side. Worried that it is a flare up of that. Stated that she also feels nauseated and dizzy. History of glynn's. Stated that she has been under a lot of stress lately. Worried she is going into crisis. Has not had any PO stress dose at home . Historical: - Allergies: 12:56 Latex, Natural Rubber; sv - PMHx: 12:56 Glynn's disease; Bipolar disorder; Chronic pain; Depression; Fibromyalgia; sv Hypothyroidism; ibs; Migraines; Schizophrenia; - PSHx: 12:56 Hernia repair; Cholecystectomy; sinus surgery; right fallopian tube removal; sv - Immunization history:: Adult Immunizations up to date. - Social history:: Smoking status: Patient/guardian denies using tobacco. - Ebola Screening: : Patient negative for fever greater than or equal to 101.5 degrees Fahrenheit, and additional compatible Ebola Virus Disease symptoms Patient denies exposure to infectious person Patient denies travel to an Ebola-affected area in the 21 days before illness onset No symptoms or risks identified at this time. ROS: 14:25 Eyes: Negative for injury, pain, redness, and discharge, ENT: Negative for injury, jr8 pain, and discharge, Neck: Negative for injury, pain, and swelling, Cardiovascular: Negative for chest pain, palpitations, and edema, Respiratory: Negative for shortness of breath, cough, wheezing, and pleuritic chest pain, Back: Negative for injury and pain, MS/Extremity: Negative for injury and deformity, Skin: Negative for injury, rash, and discoloration. 14:25 Abdomen/GI: Positive for abdominal pain, nausea, Negative for vomiting, diarrhea, constipation, abdominal cramps, abdominal distension, anorexia, dysphagia, hematemesis, black/tarry stool, rectal pain, rectal bleeding, bowel incontinence, flatulence. 14:25 Neuro: Positive for dizziness. Exam: 14:25 Eyes: Pupils equal round and reactive to light, extra-ocular motions intact. Lids and jr8 lashes normal. Conjunctiva and sclera are non-icteric and not injected. Cornea within normal limits. Periorbital areas with no swelling, redness, or edema. ENT: Nares patent. No nasal discharge, no septal abnormalities noted. Tympanic membranes are normal and external auditory canals are clear. Oropharynx with no redness, swelling, or masses, exudates, or evidence of obstruction, uvula midline. Mucous membranes moist. Neck: Trachea midline, no thyromegaly or masses palpated, and no cervical lymphadenopathy. Supple, full range of motion without nuchal rigidity, or vertebral point tenderness. No Meningismus. Cardiovascular: Regular rate and rhythm with a normal S1 and S2. No gallops, murmurs, or rubs. Normal PMI, no JVD. No pulse deficits. Respiratory: Lungs have equal breath sounds bilaterally, clear to auscultation and percussion. No rales, rhonchi or wheezes noted. No increased work of breathing, no retractions or nasal flaring. Back: No spinal tenderness. No costovertebral tenderness. Full range of motion. Skin: Warm, dry with normal turgor. Normal color with no rashes, no lesions, and no evidence of cellulitis. MS/ Extremity: Pulses equal, no cyanosis. Neurovascular intact. Full, normal range of motion. Neuro: Awake and alert, GCS 15, oriented to person, place, time, and situation. Cranial nerves II-XII grossly intact. Motor strength 5/5 in all extremities. Sensory grossly intact. Cerebellar exam normal. Normal gait. 14:25 Abdomen/GI: Inspection: obese Bowel sounds: active, all quadrants, Palpation: soft, in all quadrants, moderate abdominal tenderness, in the left lower quadrant, mass, is not appreciated, rebound tenderness, is not appreciated, voluntary guarding, is not appreciated, involuntary guarding, is not appreciated, no appreciated organomegaly, Indicators: McBurney's point is not tender, Jenkins's sign is negative, Rovsing's sign is negative, Liver: tenderness, is not appreciated. Vital Signs: 12:56 BP 125 / 90; Pulse 86; Resp 16; Temp 98; Weight 118.84 kg; Height 5 ft. 5 in. (165.10 sv cm); 17:00 BP 122 / 82; Pulse 82; Resp 17; Temp 98.2; Pulse Ox 99% on R/A; sg 12:56 Body Mass Index 43.60 (118.84 kg, 165.10 cm) sv MDM: 12:59 Patient medically screened. jr8 16:35 Data reviewed: vital signs, nurses notes, lab test result(s), radiologic studies, CT jr8 scan. Data interpreted: Pulse oximetry: on room air is 100 %. Interpretation: normal. Counseling: I had a detailed discussion with the patient and/or guardian regarding: the historical points, exam findings, and any diagnostic results supporting the discharge/admit diagnosis, lab results, radiology results, the need for outpatient follow up, a family practitioner, to return to the emergency department if symptoms worsen or persist or if there are any questions or concerns that arise at home. Response to treatment: the patient's symptoms have markedly improved after treatment, patient is well hydrated. ED course: Reviewed labs and imaging with patient. No acute infective findings noted. Dizziness more then likely due to stress and having cortisol withdrawal. Patient needs to stress dose over next couple of days. Otherwise no other focal neurologic deficits to suggest otherwise. Will send home on Meclizine. Patient good with this plan and will f/u. Knows to come back if worse . 05/13 13:15 Order name: Basic Metabolic Panel; Complete Time: 14:20 8 05/13 13:15 Order name: CBC with Diff; Complete Time: 13:53 jr8 05/13 13:15 Order name: Creatinine for Radiology; Complete Time: 14:20 8 05/13 13:15 Order name: Hepatic Function; Complete Time: 14:20 8 05/13 13:15 Order name: Lipase; Complete Time: 14:20 8 05/13 15:05 Order name: Urine Dipstick--Ancillary (enter results); Complete Time: 16:22 bd 05/13 13:15 Order name: IV Saline Lock; Complete Time: 13:38 8 05/13 13:15 Order name: Labs collected and sent; Complete Time: 13:38 [facility] 05/13 14:20 Order name: CT Abd/Pelvis - W/Contrast; Complete Time: 16:22 [facility] 05/13 15:06 Order name: Urine --Ancillary (enter results); Complete Time: 16:22 bd Administered Medications: 13:52 Drug: NS 0.9% 1000 ml Route: IV; Rate: 1000 ml; Site: right antecubital; sg 15:00 Follow up: Response: No adverse reaction; IV Status: Completed infusion; IV Intake: sg 1000ml 13:52 Drug: Zofran 4 mg Route: IVP; Site: right antecubital; sg 14:42 Follow up: Response: No adverse reaction; Nausea is decreased sg 13:55 Drug: HydroCORTISONE 100 mg Route: IVP; Site: right antecubital; sg 14:20 Follow up: Response: No adverse reaction sg 14:20 Drug: Meclizine 25 mg Route: PO; sg 15:00 Follow up: Response: No adverse reaction sg Disposition: 05/14 05:54 Co-signature as Attending Physician, Shabbir Hendrix MD I agree with the assessment and mehul plan of care. Disposition: 05/13/18 16:38 Discharged to Home. Impression: Addisonian crisis. - Condition is Stable. - Discharge Instructions: [place] [facility]. - Prescriptions for Meclizine 25 mg Oral Tablet - take 1 tablet by ORAL route every 8 hours As needed; 30 tablet. - Work release form, Medication Reconciliation Form, Thank You Letter, Antibiotic Education, Prescription Opioid Use form. - Follow up: Private Physician; When: 2 - 3 days; Reason: Recheck today's complaints, Continuance of care, Re-evaluation by your physician. - Problem is new. - Symptoms have improved. Signatures: Dispatcher [employer] Emilie Gilman RN RN sv Gay, Steven, RN RN sg Anderson, Corey, MD MD cha Roszak, Josh, PA PA jr8 Corrections: (The following items were deleted from the chart) 05/13 17:07 16:38 05/13/2018 16:38 Discharged to Home. Impression: Addisonian crisis. Condition is sg Stable. Forms are Medication Reconciliation Form, Thank You Letter, Antibiotic Education, Prescription Opioid Use. Follow up: Private Physician; When: 2 - 3 days; Reason: Recheck today's complaints, Continuance of care, Re-evaluation by your physician. Problem is new. Symptoms have improved. jr8
[2018-05-13 17:11] VITALS: BP 125/90; TEMP 98
== END 2018-05-13 17:07 | disposition home or self-care (01) ==
LOC: ER 12:46
DX: E27.2 Addisonian crisis (principal); Z91.040 Latex allergy status; Z91.048 Other nonmedicinal substance allergy status
CPT/HCPCS: 36415; 74177; 80048; 80076; 81003; 81025; 83690; 85025; 96361; 96374; 96375; 99284; J1720; J2405; J7030; Q9967

== ENCOUNTER 2019-10-14 22:17 | Emergency (ER) | payer OTHER ==
--- OUTSIDE RECORDS SUMMARY | 2019-10-14 22:19 | XMS REPORT | Summary of Care ---
:1980 Author Organization [facility] Address [address] [place] [address] Care Team Providers Name Role Phone 1, Sleep Lab Bed Unavailable Unavailable Mary Malone MD Unavailable Smooth Mosley MD Unavailable Unavailable Pcp, Does Not Have A Primary Care Provider Reason for Visit Reason Comments Thyroid Problem Encounter Details Date Type Department Care Team Description 07/24/2019 Telemedicine Visit [facility] Chema Dominguez Postab lative hypothyroidism (Primary Dx); Endocrinology- HMD Adrenal insufficiency; [address] Morbid obesity with BMI of 4 5.0-49.9, adult [address] [place] [address] Dr [address], [address] [place] [id number] [phone] Allergies Active Allergy Reactions Severity Noted Date Comments Latex Itching High 12/20/2015 documented as of this encounter (statuses as of 08/23/2019) Medications Medication Sig Dispensed Refills Start End Status Date Date SAVELLA 50 mg Take 25 mg by 0 Ac tive tablet mouth 2 (two) 6 times daily. hydrocortisone sod 2 mL by 2 mL 0 A ctive succ (SOLU-CORTEF) Intramuscular 6 100 mg injection route as needed (for when patient is unconscious). LYRICA 100 mg 0 Active capsule 6 SUMAtriptan 50 mg 0 Ac tive tablet 7 CITALOPRAM Take by mouth 0 Acti ve HYDROBROMIDE daily. (CELEXA ORAL) OXCARBAZEPINE Take by mouth 2 0 Active (TRILEPTAL ORAL) (two) times daily. FENTanyl 25 mcg/hr Apply 1 Patch to 0 Active patch skin every 72 (seventy-two) hours. ondansetron 4 mg 0 Act harvey disintegrating 7 tablet rOPINIRole 1 mg Take 1 mg by 0 A ctive tablet mouth at bedtime. hydrocortisone 10 1.5 tablets AM, 180 tablet 3 Active mg 1/2 tablet PM 0 tabletIndications: Adrenal insufficiency phentermine 37.5 Take 1 capsule by 90 capsule 0 Active mg mouth every 0 capsuleIndications morning. : Morbid obesity with BMI of 45.0-49.9, adult topiramate 25 mg Take 1 tablet by 90 tablet 1 Active tabletIndications: mouth daily. 0 Morbid obesity with BMI of 45.0-49.9, adult levothyroxine 175 1 tablet daily 90 tablet 1 Active mcg Saturday through tabletIndications: Saturday, and 1/2 Postablative tablet on Saturday. hypothyroidism pantoprazole Take 40 mg by 0 Dis continued (PROTONIX) 40 mg mouth daily. 6 020 EC tablet Nitrofurantoin&Nit Take 1 capsule by 14 capsule 0 Discontinued . Macrocryst 100 mouth 2 (two) 9 020 mg times daily. capsuleIndications : Urinary tract infection without hematuria, site unspecified LEVOTHYROXINE 175 TAKE 1 TABLET BY 84 tablet 0 07/23 Discontinued mcg MOUTH 0 020 (Reorder) tabletIndications: SATURDAY-SATURDAY Postablative AND HALF A TABLET hypothyroidism ON SUNDAYS phentermine 37.5 Take 1 capsule by 30 capsule 2 06/26 9/2 Discontinued mg mouth every 0 020 (Reorder ) capsuleIndications morning. : Morbid obesity with BMI of 45.0-49.9, adult topiramate 25 mg Take 1 tablet by 30 tablet 2 Discontinued tabletIndications: mouth daily. 0 020 (Reorder) Morbid obesity with BMI of 45.0-49.9, adult HYDROCORTISONE 10 TAKE 1 AND 1/2 75 tablet 3 Discontinued mg TABLETS BY MOUTH 0 020 (Re order) tabletIndications: EVERY MORNING AND Adrenal 1 TABLET AT 2:00 insufficiency PM documented as of this encounter (statuses as of 08/23/2019) Active Problems Problem Noted Date Anogenital warts in female 11/26/2017 Pelvic adhesive disease 05/23/2016 [place] disease 03/31/2016 BV (bacterial vaginosis) 03/13/2016 Hydrosalpinx 03/09/2016 Cyst of maxillary sinus 03/09/2016 Female infertility of unspecified origin 03/09/2016 Irritable bowel syndrome with both constipation and di arrhea 03/09/2016 Fibromyalgia 02/10/2016 Pain in joint, multiple sites 02/10/2016 History of adrenal insufficiency 02/10/2016 Chronic fatigue 02/10/2016 Morbid obesity with body mass index of 40.0-49.9 01/28 Morbid obesity with body mass index of 50 or higher 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 12/07/2015 Low serum cortisol level 11/01/2015 Postablative hypothyroidism 09/05/2015 Weight gain 09/05/2015 Disorder of thyroid 10/20/2007 Overview: 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 documented as of this encounter (statuses as of 08/23/2019) Immunizations Name Administration Dates Next Due Influenza Virus Vaccine 01/14/2018 Influenza Virus Vaccine Quad .5 mL IM 6+ MO 01/14/2018 documented as of this encounter Social History Tobacco Use Types Packs/Day Years Used Date Former Smoker Cigarettes 1.5 5 Quit: 02/25/19 06 Smokeless Tobacco: Never Used Alcohol Use Drinks/Week oz/Week Comments No 0 Standard drinks or equivalent 0.0 Sex Assigned at Date Recorded Not on file Job Start Date Occupation Industry Not on file Not on file Not on file Travel History Travel Start Travel End No recent travel history available. COVID-19 Exposure Response Date Recorded In the last month, have you been in contact with No / Unsure 07/24/2019 11:50 AM CDT someone who was confirmed or suspected to have Coronavirus / COVID-19? documented as of this encounter Last Filed Vital Signs Not on filedocumented in this encounter Patient Instructions Patient InstructionsChema Dominguez MD - 07/24/2019 10:30 AM CDT Continue current levothyroxine, hydrocortisone, topiramate, and phentermine. Get your bloodwork done so that we can adjust your medications properly. For the phentermine, I recommend holding it for a month after taking it for three months, or elseyour body stops responding to it. documented in this encounter Progress Notes Chema Dominguez MD - 07/24/2019 10:30 AM CDT Chief Complaint Patient presents with Thyroid Problem Verbal consent obtained from Lavinia Jarrett for telehealth services provided below for 15 minutes. Communication with patient was conducted via E-Blink video/audio Patient was at home, I was in the [facility]. HPI Patient is a 38 year old lady following up on hydrocortisone and hypothyroidism. She takes hydrocortisone 15 mg in am and 5 mg at 2 PM. Has medical alert bracelet. Aware of sick day rules. Levothyroxine is a 175 mcg- one tab Saturday-Saturday and half tablet on Saturday. BMI > 51: Started on phentermine 15 mg in 03/2017, increased to 30 mg in 03/2017 and 37.5 mg in 07/2017. Added Topiramate 25 mg in 07/2017 Patient lost 50 Lb since then. Denies any side effects. Reports compliance with diet and exercise (less during the pandemic). HISTORY Reviewed past medical, surgical, social, family history and no changes REVIEW OF SYSTEMS Constitutional: Eyes: denies blurry vision, denies decreased vision and denies diplopia. Cardiovascular: denies chest pain and denies palpitations. Respiratory: denies chest congestion and denies shortness of breath. Gastrointestinal: denies abdominal pain, denies constipation, denies diarrhea and denies nausea. Musculoskeletal:Denies arythralgias Neuro: No tremors, Endocrine: Denies intolerance to cold or heat PHYSICAL EXAM There were no vitals filed for this visit. General: alert, oriented times three, no apparent distress, appearing age appropriate. Rest of exam deferred (telemedicine). Component Latest Ref Rng 12/20/2015 12/20/2015 12/20/2015 12/20/2015 9:50 AM 9:20 AM 8:49 AM 8:49 AM FOREST 0 4.5-23.0 ug/dL 1.9 (L) FOREST 60 13.0 FOREST 30 9.8 ACTH 6-58 pg/mL 11 Component Latest Ref Rng & Units 05/19/2018 05/19/2018 05/19/2018 2:49 PM 2:49 PM 2:49 PM NA 135 - 145 mmol/L K 3.5 - 5.0 mmol/L CL 98 - 108 mmol/L CO2 TOTAL 23 - 31 mmol/L AGAP 2 - 16 BUN 7 - 23 mg/dL GLUCOSE 70 - 110 mg/dL CREATININE 0.50 - 1.04 mg/dL TOTAL BILI 0.1 - 1.1 mg/dL CALCIUM 8.6 - 10.6 mg/dL T PROTEIN 6.3 - 8.2 g/dL ALBUMIN 3.5 - 5.0 g/dL ALK PHOS 34 - 122 U/L ALT(SGPT) 9 - 51 U/L AST(SGOT) 13 - 40 U/L eGFR CALCULATION (non ) mL/min/1.73m2 eGFR CALCULATION () mL/min/1.73m2 CHOL 120 - 200 mg/dL HDL CHOL >50 mg/dL HDLC RATIO <=4.5 TRIG 30 - 170 mg/dL LDL CHOL <=160 mg/dL VLDL 5 - 60 mg/dL TSH 0.45 - 4.70 mIU/L 0.43 (L) FREE T4 0.78 - 2.20 ng/dL 1.08 HGB A1C 4.0 - 6.0 % NGSP 5.0 Component Latest Ref Rng & Units 05/19/2018 05/19/2018 2:49 PM 2:49 PM NA 135 - 145 mmol/L 146 (H) K 3.5 - 5.0 mmol/L 4.8 CL 98 - 108 mmol/L 108 CO2 TOTAL 23 - 31 mmol/L 31 AGAP 2 - 16 7 BUN 7 - 23 mg/dL 11 GLUCOSE 70 - 110 mg/dL 81 CREATININE 0.50 - 1.04 mg/dL 0.70 TOTAL BILI 0.1 - 1.1 mg/dL 0.5 CALCIUM 8.6 - 10.6 mg/dL 9.5 T PROTEIN 6.3 - 8.2 g/dL 7.0 ALBUMIN 3.5 - 5.0 g/dL 4.1 ALK PHOS 34 - 122 U/L 78 ALT(SGPT) 9 - 51 U/L 25 AST(SGOT) 13 - 40 U/L 10 (L) eGFR CALCULATION (non ) mL/min/1.73m2 93.2 eGFR CALCULATION () mL/min/1.73m2 112.9 CHOL 120 - 200 mg/dL 195 HDL CHOL >50 mg/dL 65 HDLC RATIO <=4.5 3.0 TRIG 30 - 170 mg/dL 168 LDL CHOL <=160 mg/dL 96 VLDL 5 - 60 mg/dL 34 TSH 0.45 - 4.70 mIU/L FREE T4 0.78 - 2.20 ng/dL HGB A1C 4.0 - 6.0 % NGSP ASSESSMENT ICD-10-CM ICD-9-CM 1. Postablative hypothyroidism E89.0 244.1 2. Adrenal insufficiency E27.40 255.41 3. Morbid obesity with BMI of 45.0-49.9, adult E66.01 278.01 Z68.42 V85.42 Continue current levothyroxine, hydrocortisone, topiramate, and phentermine. Get bloodwork done so that we can adjust medications properly. For the phentermine, I recommended holding it for a month after taking it for three months, or else the body stops responding to it. No orders of the defined types were placed in this encounter. documented in this encounter Plan of Treatment Date Type Specialty Care Team Description 01/29/2020 Office Visit Endocrinology Diabetes & Chema Piña MD Metabolism [address] [place] [address] [phone] Health Maintenance Due Date Last Done Comments DTaP,Tdap,and Td Vaccines (1 1989 - Tdap) Depression Screening 1990 Breast Cancer Screening 2018 (MAMMOGRAM) INFLUENZA VACCINE (Season 10/27/2019 01/14/2018, Ended) 01/14/2018 PAP SMEAR 03/09/2021 03/09/2016, 06/05/2011 PNEUMOCOCCAL 0-64 YEARS Aged Out No longe r eligible based COMBINED SERIES on patient's age to complete this to pic documented as of this encounter Results Not on filedocumented in this encounter Visit Diagnoses Diagnosis Postablative hypothyroidism - Primary Other postablative hypothyroidism Adrenal insufficiency Glucocorticoid deficiency Morbid obesity with BMI of 45.0-49.9, ad ult documented in this encounter Insurance Payer Benefit Plan / Subscriber ID Effective Dates Phone Addre ss Type Group [facility] xxxxxxxxx 2016-Present Medicaid COMM PLAN - PLUS MANAGED MEDICAID documented as of this encounter
--- OUTSIDE RECORDS SUMMARY | 2019-10-14 22:19 | XMS REPORT | Continuity of Care Document ---
:1980 Author Organization [facility] t Address [address] [place] [address] Care Team Providers Name Role Phone Angelica VASQUEZ, H Attending Clinician Isidro VASQUEZ Attending Clinician Zully VASQUEZ, Hsieh Attending Clinician Unavailable Problems Condition Condition Condition Status Onset Resolution Last Treating Co mments Source Name Details Category Date Date Treatment Clinician Date Migraine [facility] status status Memoria migrainosu migrainosu l s, not s, not Outpati intractabl intractabl en t e, e, Clinics unspecifie unspecifie d migraine d migraine type type Obstructiv Obstructiv Problem Active [facility] sleep [facility] sleep [facility] apnea apnea [facility] Gallstone Gallstone Problem Active [facility] Fibromyalg Fibromyalg Problem Active [facility] ia ia [facility] Chronic Problem Active [facility] pain pain [facility] - syndrome syndrome [facility] a l [facility] Muscle Muscle Problem Active [facility] weakness weakness [facility] Insomnia, Insomnia, Problem Active [facility] unspecifie unspecifie Amrgot kes - d type d type [facility] Bipolar Bipolar Problem Active [facility] disorder disorder [facility] Hypothyroi Hypothyroi Problem Active [facility] dism, dism, [facility] - unspecifie unspecifie Me moria d type d type l [facility] Depression Depression Problem Active [facility] with with [facility] - anxiety anxiety [facility] l [facility] Foot pain Foot pain Problem Active [facility] CPAP CPAP Problem Active [facility] (continuou (continuou Margot kes - s positive s positive Me moria airway airway l pressure) pressure) Outp ati dependence dependence en t Clinics Diverticul Diverticul Problem Active [facility] osis of osis of [facility] - intestine intestine Grzegorz srinath without without l bleeding, bleeding, Outp ati unspecifie unspecifie en t d d Clinics intestinal intestinal tract tract location location Abdominal Abdominal Problem Active [facility] pain, pain, [facility] - unspecifie unspecifie Me moria d d l abdominal abdominal Outp ati location location ent Clinics Irritable Irritable Problem Active [facility] bowel bowel [facility] - syndrome syndrome Memori a with with l constipati constipati Ou tpati on on ent Clinics Gastroesop Gastroesop Problem Active [facility] hageal hageal [facility] - reflux reflux Memoria disease, disease, l esophagiti esophagiti Ou tpati s presence s presence en t not not Clinics specified specified Allergies, Adverse Reactions, Alerts This patient has no known allergies or adverse reactions. Medications Ordered Filled Start Stop Current Ordering Indication Dosage Frequency Signature Comments Components Source Medication Medication Date Date Medication? Clinician (SIG) Name Name Juan Sharmaalexsandrakamala 2019- No Cinda [address] [facility] 04-22 [place] in the [facility] - 00:00: 00:00 morning Memoria 00 :00 [facility] Pantoprazol Pantoprazol Yes Cinda [address] [facility] e Sodium e Sodium 10-25 [place] Margot kes - 00:00: Memoria 00 [facility] Chlordiazep Chlordiazep 2019- No Cinda [address] [facility] oxide-Clidi oxide-Clidi 10-25 [place] - nium nium 00:00: 00:00 Memoria 00 :00 [facility] Neurontin Neurontin Yes Cinda [address] [facility] Amitriptyli Amitriptyli Yes Cinda [address] [facility] ne HCl ne HCl [facility] ent [facility] Topamax Topamax Yes Cinda [address] [facility] Zofran Zofran Yes Cinda [address] [facility] Ultram Ultram Yes Cinda [address] [facility] Mill[facility] as needed [facility] Lyrica Lyrica Yes Cinda [facility] capsule [facility] Robaxin Robaxin Yes Cinda 1.[address] [facility] [address] Millender tablets [facility] Trazodone Trazodone Yes Cinda [address] [facility] [address] HCl HCl Millender at bedtime Luke s - as needed Memoria l Outpati ent Clinics Protonix Protonix Yes Cinda [address] [facility] Savella Savella Yes Cinda [address] [facility] Synthroid Synthroid Yes Cinda [address] [facility] on an [facility] - empty Memoria stomach in l the Outpati morning ent Clinics Imitrex Imitrex Yes Cinda [address] [facility] as needed [facility] Citalopram Citalopram Yes Cinda [address] [facility] Hydrobromid Hydrobromid [facility] e e [facility]oria l Outpati ent Clinics Clonazepam Clonazepam Yes Cinda [address] [facility] Cyclobenzap Cyclobenzap Yes Cinda [address] [facility] [address] rine HCl rine HCl [place] as needed [facility] Furosemide Furosemide Yes Cinda [address] [facility] [place] as needed [facility] - for leg Memoria swelling l Outpati ent Clinics Effexor XR Effexor XR Yes Cinda [address] [facility] [place] with food [facility] Immunizations Ordered Filled Immunization Date Status Comments [facility] e Immunization Name Name Flucelvax - single Flucelvax - single 2019-04-[address] [facility] - dose syringe dose syringe 00:00:00 [facility] Procedures This patient has no known procedures. Encounters Start End Encounter Admission Attending Care Care Encounter Source Date/Time Date/Time Type Type Clinicians Facility Department ID 2019-07-24 2019-07-24 Telemedici DEBBIE Dominguez [id number] 08:17:11 11:47:51 ne Visit Chema Stratton [id number] [place] [id number] Professio [phone] [facility] 2019-07-10 2019-07-10 Refill Felxi, [facility] [id number] 00:00:00 00:00:00 Venessa [place] [id number] [place] [id number] CENTER [phone] [facility] 2019-05-20 2019-05-20 Telemedici Felix, [facility] [id number] 08:37:33 13:26:38 ne Visit Venessa Stratton [id number] [place] [id number] Professio [phone] [address] 2019-05-20 2019-05-20 Telephone Felix, [facility] [id number] 00:00:00 00:00:00 Venessa Riggston [id number] [place] [id number] Professio [phone] [address] 2019-05-17 2019-05-17 Refill Felix, [facility] [id number] 00:00:00 00:00:00 Venessa Stratton [id number] [place] [id number] Professio [phone] [address] 2019-05-17 2019-05-17 Refill Zully [facility] [id number] 00:00:00 00:00:00 Nicolekaryn Stratton [id number] Hsieh [place] [id number] Professio [phone] [facility] 2019-05-15 2019-05-15 Refill Felix, [facility] [id number] 00:00:00 00:00:00 Venessa Riggston [id number] [place] [id number] Professio [phone] [address] 2019-04-28 2019-04-28 Refill Zully [facility] [id number] 00:00:00 00:00:00 Nicole MULTISPEC [id number] Мария MONTESINOS [id number] [place] [phone] [place] [facility] 2019-04-24 2019-04-24 Refill Felix, [facility] [id number] 00:00:00 00:00:00 Venessa [place] [id number] [place] [id number] Professio [phone] [facility] 2019-04-12 2019-04-12 [facility] [id number] [address] 21:42:00 21:42:00 [facility] 2019-04-09 2019-04-09 [facility] [id number] 10:45:00 10:45:00 [facility] 2019-04-03 2019-04-03 Refill Felix, [facility] [id number] 00:00:00 00:00:00 Leathaargelia [place] [id number] [place] [id number] Professio [phone] [facility] 2018-10-30 2018-10-30 Telephone Felix, [facility] [id number] 00:00:00 00:00:00 Venessa [place] [id number] [place] [id number] Professio [phone] [facility] 2018-09-19 2018-09-19 Refill Andrea, [facility] [id number] 00:00:00 00:00:00 Nicole [place] [id number] Мария Hanson [id number] Professio [phone] [facility] 2018-08-06 2018-08-06 [facility] [id number] [address] 11:09:00 11:09:00 [facility] Medicine Outpati ent Clinics 2018-04-23 2018-04-23 [facility] [id number] 01:12:00 01:12:00 t [facility] Medicine Outpati ent Clinics 2018-04-22 2018-04-22 [facility] [id number] [address] 16:00:00 16:00:00 [facility] Medicine Outpati ent Clinics 2017-10-29 2017-10-29 [facility] [id number] 09:06:00 09:06:00 t [facility] Medicine Outpati ent Clinics 2017-10-25 2017-10-25 [facility] [id number] 23:08:00 23:08:00 [facility] Medicine Outpati ent Clinics 2017-10-25 2017-10-25 [facility] [id number] 15:00:00 15:00:00 [facility] Medicine Outpati ent Clinics Results This patient has no known results.
[2019-10-14 23:52] LABS: Absolute Lymphocytes (CBC) 1.2 K/uL (0.7-4.9); Basophils % 0.1 % (0-1.3); Hematocrit 36.5 % (36.0-45.0); Lymphocytes % 12.5 % (15.3-44.8); MPV 7.9 fL (7.6-11.3); RBC Red Blood Cell Count 4.23 M/uL (3.86-4.86)
[2019-10-15 00:03] LABS: Albumin 3.6 g/dL (3.4-5.0); Bilirubin Direct 0.2 mg/dL (0-0.2); Bilirubin Total 0.7 mg/dL (0.2-1.0); Potassium 3.3 mmol/L (3.5-5.1); Protein, Total 7.8 g/dL (6.4-8.2)
[2019-10-15] MEDS ORDERED: ONDANSETRON 4 MG/2 ML VIAL ONE (00:10)
[2019-10-15] MEDS ORDERED: KETOROLAC 30 MG/ML INJ ONE (00:10)
[2019-10-15] MEDS ORDERED: NA CHLORIDE 0.9% 1,000 ML ONE (00:11)
[2019-10-15 00:18] LABS: Urine Culture Reflex Order NOT NEEDED; Urine Mucus 1+ /HPF (NONE SEEN)
[2019-10-15 00:19] LABS: Urine Bacteria <20 /HPF (<20); Urine RBC <5 /HPF (NONE SEEN)
[2019-10-15 02:58] LABS: Urine Blood 2+ (NEG); Urine Glucose NEGATIVE (NEG); Urine Protein 1+ (NEG); Urine Specific Gravity 1.025 (1.005-1.030); Urine pH 5.5 (5.0-7.0)
--- NOTE | 2019-10-15 04:42 | ER ---
Nurse's Notes [facility] Name: Lavinia Jarrett Age: 38 yrs Sex: Female : 1980 Arrival Date: 10/14/2019 Time: 22:20 Bed 7 Private MD: Diagnosis: Pyelonephritis Presentation: 10/13 23:05 Chief complaint: Patient states: Blood in urine since the weekend; complaint of low lp1 back pain; "I've noticed my Branch's may be acting up"; began taking steroid, hydrocortisone began yesterday; Denies fever. Coronavirus screen: Client denies travel out of the [place] in the last 14 days. At this time, the client does not indicate any symptoms associated with coronavirus-19. Ebola Screen: No symptoms or risks identified at this time. Initial Sepsis Screen: Does the patient meet any 2 criteria? No. Patient's initial sepsis screen is negative. Does the patient have a suspected source of infection? No. Patient's initial sepsis screen is negative. Risk Assessment: Do you want to hurt yourself or someone else? Patient reports no desire to harm self or others. Onset of symptoms was October 14, 2019. 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 lp1 Historical: - Allergies: 23:12 Latex, Natural Rubber; lp1 - Home Meds: 23:12 baclofen 10 mg Oral tab 1 1-2 tab BID [Active]; butrans 20 mcg/hr patch every week lp1 [Active]; Chlordiazepoxide Oral 1 cap 3 times per day [Active]; Cholestyramine Light Oral [Active]; clonazepam 2 mg Oral tab 1 tab 2 times per day [Active]; dicyclomine 20 mg Oral tab 1 tab 3 times per day [Active]; docusate sodium 100 mg Oral cap [Active]; hydrocortisone 10 mg Oral tab 1.5 tab 1 tab at 2pm [Active]; Lyrica 100 mg Oral 1 cap 3 times per day [Active]; methocarbamol 500 mg Oral tab 1 tabs BID [Active]; oxycarbazepine 150 mg BID [Active]; pantoprazole 40 mg Oral TbEC 1 tab once daily [Active]; Prednisone Oral [Active]; promethazine 25 mg Oral tab as needed [Active]; Savella 50 mg Oral tab 1 tab 2 times per day [Active]; solu-cortef [Active]; SUMATRIPTAN 50 mg [Active]; Synthroid 150 mcg Oral tab [Active]; tizanidine 4 mg Oral tab 1 tab BID [Active]; topiramate 25 mg Oral CSpX 1 cap once daily [Active]; topiramate 25 mg Oral CSpX 1 cap BID [Active]; tramadol 50 mg Oral tab as needed [Active]; trazodone 50 mg Oral tab 1 tab once a day [Active]; venlafaxine 150 mg Oral cp24 1 cap once daily [Active]; Vitamin D Oral daily [Active]; Zofran (as hydrochloride) 4 mg Oral tab 2 tabs every 8 hours [Active]; - PMHx: 23:12 Branch's disease; Bipolar disorder; Chronic pain; Depression; Fibromyalgia; lp1 Hypothyroidism; ibs; Migraines; Schizophrenia; - PSHx: 23:12 Cholecystectomy; lp1 - Immunization history:: Adult Immunizations up to date. - Social history:: Smoking status: Patient denies any tobacco usage or history of. Screenin:14 Abuse screen: Denies threats or abuse. Denies injuries from another. Nutritional lp1 screening: No deficits noted. Tuberculosis screening: No symptoms or risk factors identified. Fall Risk None identified. Assessment: 23:30 General: Appears in no apparent distress. uncomfortable, Behavior is calm, cooperative, rr5 appropriate for age, fentanyl patch at right arm. 23:30 Pain: Complains of pain in back Pain currently is 10 out of 10 on a pain scale. Quality rr5 of pain is described as aching, Pain began gradually, Is intermittent. Neuro: Level of Consciousness is awake, alert, obeys commands, Oriented to person, place, time, situation. Cardiovascular: Capillary refill < 3 seconds Patient's skin is warm and dry. Respiratory: Airway is patent Respiratory effort is even, unlabored, Respiratory pattern is regular, symmetrical. GI: No signs and/or symptoms were reported involving the gastrointestinal system. : No signs and/or symptoms were reported regarding the genitourinary system. EENT: No signs and/or symptoms were reported regarding the EENT system. Derm: Skin is intact, is healthy with good turgor, Skin temperature is warm. Musculoskeletal: Capillary refill < 3 seconds, Reports pain in right flank and left flank. 10/14 01:00 Reassessment: Patient appears in no apparent distress at this time. resting eyes closed rr5 breathing spontaneously at room air. 02:10 Reassessment: Patient appears in no apparent distress at this time. No changes from rr5 previously documented assessment. awaiting for review. 02:52 Reassessment: Patient appears in no apparent distress at this time. Patient is alert, rr5 oriented x 3, equal unlabored respirations, skin warm/dry/pink. Patient states feeling better. Patient states symptoms have improved. 03:00 Reassessment: Patient appears in no apparent distress at this time. Patient and/or vc family updated on plan of care and expected duration. Pain level reassessed. Patient is alert, oriented x 3, equal unlabored respirations, skin warm/dry/pink. Assumed patient care from Ji Alexander RN. 04:00 Reassessment: Patient appears in no apparent distress at this time. Patient and/or vc family updated on plan of care and expected duration. Pain level reassessed. Patient is alert, oriented x 3, equal unlabored respirations, skin warm/dry/pink. 04:48 Reassessment: Patient appears in no apparent distress at this time. Patient and/or vc family updated on plan of care and expected duration. Pain level reassessed. Patient is alert, oriented x 3, equal unlabored respirations, skin warm/dry/pink. Patient states feeling better. Patient states symptoms have improved. Vital Signs: 10/13 23:12 BP 132 / 80; Pulse 83; Resp 18; Temp 99.8(O); Pulse Ox 100% on R/A; Weight 106.14 kg lp1 (R); Height 5 ft. 5 in. (165.10 cm); Pain 10; 10/14 00:10 BP 126 / 89; Pulse 89; Resp 19; Pulse Ox 100% ; rr5 01:00 BP 121 / 75; Pulse 80; Resp 16; Pulse Ox 99% ; rr5 02:00 BP 115 / 70; Pulse 70; Resp 19; Pulse Ox 98% ; rr5 02:58 BP 109 / 63; Pulse 75; Resp 16; Pulse Ox 100% on R/A; rr5 04:00 BP 117 / 59; Pulse 66; Resp 16; Pulse Ox 99% on R/A; vc 04:30 BP 119 / 65; Pulse 70; Resp 17; Pulse Ox 98% on R/A; vc 10/13 23:12 Body Mass Index 38.94 (106.14 kg, 165.10 cm) lp1 ED Course: 10/13 22:20 Patient arrived in ED. bp1 23:08 Triage completed. lp1 23:08 Arm band placed on. lp1 23:20 Ji Alexander RN is Primary Nurse. rr5 23:22 Richard Lopez MD is Attending Physician. mh7 23:30 Patient has correct armband on for positive identification. Placed in gown. Bed in low rr5 position. Call light in reach. Pulse ox on. NIBP on. 23:30 Urine collected: clean catch specimen, clear. rr5 23:35 Inserted saline lock: 20 gauge in right antecubital area, using aseptic technique. rr5 Blood collected. 10/14 01:12 CT Abd/Pelvis - Without Contrast In Process Unspecified. EDMS 04:10 Primary Nurse role handed off by Ji Alexander RN vc 04:10 Ely Barry RN is Primary Nurse. vc 04:41 Citlaly Rivera MD is Referral Physician. [facility] 04:49 No provider procedures requiring assistance completed. IV discontinued, intact, vc bleeding controlled, No redness/swelling at site. Pressure dressing applied. Administered Medications: 00:00 Drug: NS 0.9% 1000 ml Route: IV; Rate: 1000 ml; Site: right antecubital; rr5 04:50 Follow up: IV Status: Completed infusion; IV Intake: 1000ml vc 00:01 Drug: Zofran (Ondansetron) 4 mg Route: IVP; Site: right antecubital; rr5 01:00 Follow up: Response: No adverse reaction rr5 00:03 Drug: TORadol 30 mg Route: IVP; Site: right antecubital; rr5 01:00 Follow up: Response: No adverse reaction rr5 04:46 Drug: Bactrim (160 mg-800 mg (DS) 1 tablet Route: PO; jb4 04:49 Follow up: Response: No adverse reaction; Medication administered at discharge. vc 04:50 Follow up: Response: Medication administered at discharge. jb4 Intake: 04:50 IV: 1000ml; Total: 1000ml. Outcome: 04:42 Discharge ordered by . zehra 04:49 Discharged to home ambulatory. 04:49 Condition: good 04:49 Discharge instructions given to patient, Instructed on discharge instructions, follow up and referral plans. medication usage, Demonstrated understanding of instructions, follow-up care, medications, Prescriptions given X 2. 04:50 Patient left the ED. vc Addendum: 10/18/2019 12:58 Addendum: Culture Results: Positive urine culture. Bacteria is resistant to, has a a5 intermediate sensitivity, or is not tested against prescribed antibiotics. Report given to CHITO for further evaluation and then to social work administrator for follow up with patient. Prescription called-in to pharmacy of choice. to [facility] pharmacy in [place], [place]. Called-in Levaquin 750mg PO Daily for 5 days per C.KAMALJIT Silva, pt instructed to stop Bactrim DS. Signatures: Dispatcher [employer] EDMS Melissa Lynn, RN RN aa5 Emely Alves RN RN lp1 Johnny Diana RN RN jb4 Ji Alexander RN RN rr5 Ely Barry RN RN Nika Barr Maurice, MD MD mh7
--- NOTE | 2019-10-15 04:42 | EDPHYS ---
Physician Documentation [facility] Name: Lavinia Jarrett Age: 38 yrs Sex: Female : 1980 Arrival Date: 10/14/2019 Time: 22:20 Bed 7 Private MD: ED Physician Richard Lopez HPI: 10/14 00:32 This 38 yrs old Female presents to ER via Ambulatory with complaints of Back mh7 Pain, BLOOD IN URINE. 00:33 The patient complains of pain in the left flank and right flank. The pain does not mh7 radiate. Onset: The symptoms/episode began/occurred 1 week(s) ago. Modifying factors: The symptoms are alleviated by nothing. the symptoms are aggravated by movement. Associated signs and symptoms: Pertinent positives: dysuria, hematuria. 00:33 Associated signs and symptoms: Pertinent negatives: diarrhea, dizziness, fever, urinary mh7 frequency, headache, nausea, pain radiating to the lower extremities, vomiting. Severity of pain: At its worst the pain was moderate today, in the emergency department the pain has improved moderately. 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 lp1 Historical: - Allergies: 23:12 Latex, Natural Rubber; lp1 - Home Meds: 23:12 baclofen 10 mg Oral tab 1 1-2 tab BID [Active]; butrans 20 mcg/hr patch every week lp1 [Active]; Chlordiazepoxide Oral 1 cap 3 times per day [Active]; Cholestyramine Light Oral [Active]; clonazepam 2 mg Oral tab 1 tab 2 times per day [Active]; dicyclomine 20 mg Oral tab 1 tab 3 times per day [Active]; docusate sodium 100 mg Oral cap [Active]; hydrocortisone 10 mg Oral tab 1.5 tab 1 tab at 2pm [Active]; Lyrica 100 mg Oral 1 cap 3 times per day [Active]; methocarbamol 500 mg Oral tab 1 tabs BID [Active]; oxycarbazepine 150 mg BID [Active]; pantoprazole 40 mg Oral TbEC 1 tab once daily [Active]; Prednisone Oral [Active]; promethazine 25 mg Oral tab as needed [Active]; Savella 50 mg Oral tab 1 tab 2 times per day [Active]; solu-cortef [Active]; SUMATRIPTAN 50 mg [Active]; Synthroid 150 mcg Oral tab [Active]; tizanidine 4 mg Oral tab 1 tab BID [Active]; topiramate 25 mg Oral CSpX 1 cap once daily [Active]; topiramate 25 mg Oral CSpX 1 cap BID [Active]; tramadol 50 mg Oral tab as needed [Active]; trazodone 50 mg Oral tab 1 tab once a day [Active]; venlafaxine 150 mg Oral cp24 1 cap once daily [Active]; Vitamin D Oral daily [Active]; Zofran (as hydrochloride) 4 mg Oral tab 2 tabs every 8 hours [Active]; - PMHx: 23:12 Aston's disease; Bipolar disorder; Chronic pain; Depression; Fibromyalgia; lp1 Hypothyroidism; ibs; Migraines; Schizophrenia; - PSHx: 23:12 Cholecystectomy; lp1 - Immunization history:: Adult Immunizations up to date. - Social history:: Smoking status: Patient denies any tobacco usage or history of. ROS: 10/14 00:33 Constitutional: Negative for fever, chills, and weight loss, Eyes: Negative for injury, mh7 pain, redness, and discharge, ENT: Negative for injury, pain, and discharge, Neck: Negative for injury, pain, and swelling, Cardiovascular: Negative for chest pain, palpitations, and edema, Respiratory: Negative for shortness of breath, cough, wheezing, and pleuritic chest pain, Abdomen/GI: Negative for abdominal pain, nausea, vomiting, diarrhea, and constipation, MS/Extremity: Negative for injury and deformity, Skin: Negative for injury, rash, and discoloration, Neuro: Negative for headache, weakness, numbness, tingling, and seizure, Psych: Negative for depression, anxiety, suicide ideation, homicidal ideation, and hallucinations, Allergy/Immunology: Negative for hives, rash, and allergies, Endocrine: Negative for neck swelling, polydipsia, polyuria, polyphagia, and marked weight changes, Hematologic/Lymphatic: Negative for swollen nodes, abnormal bleeding, and unusual bruising. Exam: 00:33 Constitutional: This is a well developed, well nourished patient who is awake, alert, mh7 and in no acute distress. Head/Face: Normocephalic, atraumatic. Neck: Trachea midline, no thyromegaly or masses palpated, and no cervical lymphadenopathy. Supple, full range of motion without nuchal rigidity, or vertebral point tenderness. No Meningismus. Chest/axilla: Normal chest wall appearance and motion. Nontender with no deformity. No lesions are appreciated. Cardiovascular: Regular rate and rhythm with a normal S1 and S2. No gallops, murmurs, or rubs. Normal PMI, no JVD. No pulse deficits. Respiratory: Lungs have equal breath sounds bilaterally, clear to auscultation and percussion. No rales, rhonchi or wheezes noted. No increased work of breathing, no retractions or nasal flaring. Abdomen/GI: Soft, non-tender, with normal bowel sounds. No distension or tympany. No guarding or rebound. No evidence of tenderness throughout. 00:33 Skin: Warm, dry with normal turgor. Normal color with no rashes, no lesions, and no evidence of cellulitis. MS/ Extremity: Pulses equal, no cyanosis. Neurovascular intact. Full, normal range of motion. Neuro: Awake and alert, GCS 15, oriented to person, place, time, and situation. Cranial nerves II-XII grossly intact. Motor strength 5/5 in all extremities. Sensory grossly intact. Cerebellar exam normal. Normal gait. Psych: Awake, alert, with orientation to person, place and time. Behavior, mood, and affect are within normal limits. 00:33 Back: pain, is absent, ROM is normal, normal spinal alignment noted, CVA tenderness, that is mild, is noted bilaterally, vertebral tenderness, is not appreciated, muscle spasm, is not present. Vital Signs: 10/13 23:12 BP 132 / 80; Pulse 83; Resp 18; Temp 99.8(O); Pulse Ox 100% on R/A; Weight 106.14 kg lp1 (R); Height 5 ft. 5 in. (165.10 cm); Pain 10/10; 10/14 00:10 BP 126 / 89; Pulse 89; Resp 19; Pulse Ox 100% ; rr5 01:00 BP 121 / 75; Pulse 80; Resp 16; Pulse Ox 99% ; rr5 02:00 BP 115 / 70; Pulse 70; Resp 19; Pulse Ox 98% ; rr5 02:58 BP 109 / 63; Pulse 75; Resp 16; Pulse Ox 100% on R/A; rr5 04:00 BP 117 / 59; Pulse 66; Resp 16; Pulse Ox 99% on R/A; vc 04:30 BP 119 / 65; Pulse 70; Resp 17; Pulse Ox 98% on R/A; vc 10/13 23:12 Body Mass Index 38.94 (106.14 kg, 165.10 cm) lp1 MDM: 10/13 23:54 Patient medically screened. [facility] 10/14 04:39 Differential diagnosis: nephrolithiasis, pyelonephritis, UTI, Flank Pain. Data [facility] reviewed: vital signs, nurses notes, lab test result(s), CBC, electrolytes, urinalysis, radiologic studies, CT scan. Data interpreted: Pulse oximetry: on room air is 99 %. Interpretation: normal. Counseling: I had a detailed discussion with the patient and/or guardian regarding: the historical points, exam findings, and any diagnostic results supporting the discharge/admit diagnosis, lab results, radiology results, the need for outpatient follow up, to return to the emergency department if symptoms worsen or persist or if there are any questions or concerns that arise at home. Response to treatment: the patient's symptoms have resolved after treatment, the patient's blood pressure is in an acceptable range, mental status has returned to baseline, the patient no longer shows bradycardia, the patient is not short of breath, the patient is not tachycardic, the patient's pain is gone, the patient's temperature has normalized, the patient's condition has returned to base line, the patient is now symptom free, patient is well hydrated. 06:31 Refusal of service: The patient/guardian displays adequate decision making capability [facility] and despite a detailed discussion of alternatives, benefits, risks, and consequences refuses: Ultrasound. ED course: Feels better, well appearing, NAD, VSS. No abdominal pain/tenderness, nausea, vomiting. Discussed all test results and findings. She states that she is aware of the ovarian cyst and denies any pelvic pain. She declined any further evaluation here and will follow up with her doctor.. 10/13 23:35 Order name: Basic Metabolic Panel; Complete Time: 00:55 rr5 10/13 23:35 Order name: CBC with Diff; Complete Time: 23:56 rr5 10/13 23:35 Order name: Hepatic Function; Complete Time: 00:55 rr5 10/13 23:35 Order name: Lipase; Complete Time: 00:55 [facility] 10/13 23:35 Order name: Urine Microscopic Only; Complete Time: 00:55 [facility] 10/13 23:55 Order name: Urine Culture [facility] 10/13 23:35 Order name: IV Saline Lock; Complete Time: 23:35 [facility] 10/13 23:57 Order name: CT Abd/Pelvis - Without Contrast [facility] 10/14 00:21 Order name: Urine Dipstick--Ancillary (enter results); Complete Time: 04:03 [facility] 10/14 00:21 Order name: Urine --Ancillary (enter results); Complete Time: 04:03 [facility] 10/13 23:35 Order name: Labs collected and sent; Complete Time: 23:35 [facility] 10/13 23:35 Order name: Urine Dipstick-Ancillary (obtain specimen); Complete Time: 23:35 [facility] 10/13 23:35 Order name: Urine Test (obtain specimen); Complete Time: 23:35 rr5 Administered Medications: 00:00 Drug: NS 0.9% 1000 ml Route: IV; Rate: 1000 ml; Site: right antecubital; rr5 04:50 Follow up: IV Status: Completed infusion; IV Intake: 1000ml vc 00:01 Drug: Zofran (Ondansetron) 4 mg Route: IVP; Site: right antecubital; rr5 01:00 Follow up: Response: No adverse reaction rr5 00:03 Drug: TORadol 30 mg Route: IVP; Site: right antecubital; rr5 01:00 Follow up: Response: No adverse reaction rr5 04:46 Drug: Bactrim (160 mg-800 mg (DS) 1 tablet Route: PO; jb4 04:49 Follow up: Response: No adverse reaction; Medication administered at discharge. vc 04:50 Follow up: Response: Medication administered at discharge. jb4 Disposition: 06:31 Co-signature as Attending Physician, Richard Lopez MD. 7 Disposition: 10/15/19 04:42 Discharged to Home. Impression: Pyelonephritis. - Condition is Stable. - Discharge Instructions: Pyelonephritis, Adult, [id number]. - Prescriptions for Bactrim DS 800- 160 mg Oral Tablet - take 1 tablet by ORAL route every 12 hours for 10 days; 20 tablet. Ibuprofen 800 mg Oral Tablet - take 1 tablet by ORAL route every 8 hours As needed take with food; 15 tablet. - Medication Reconciliation Form, Thank You Letter, Antibiotic Education, Prescription Opioid Use form. - Follow up: Private Physician; When: 1 - 2 days; Reason: Worsening of condition, Recheck today's complaints, Continuance of care, Re-evaluation by your physician. Follow up: Citlaly Rivera MD; When: 1 - 2 days; Reason: Worsening of condition, Recheck today's complaints. - Problem is an ongoing problem. - Symptoms have improved. Signatures: Dispatcher [employer] EDMS Emely Alves RN RN lp1 Johnny Diana RN RN jb4 Ji Alexander RN RN rr5 Ely Barry RN RN vc Richard Lopez MD MD mh7 Corrections: (The following items were deleted from the chart) 04:50 04:42 10/15/2019 04:42 Discharged to Home. Impression: Pyelonephritis. Condition is vc Stable. Forms are Medication Reconciliation Form, Thank You Letter, Antibiotic Education, Prescription Opioid Use. Follow up: Private Physician; When: 1 - 2 days; Reason: Worsening of condition, Recheck today's complaints, Continuance of care, Re-evaluation by your physician. Follow up: Citlaly Rivera; When: 1 - 2 days; Reason: Worsening of condition, Recheck today's complaints. Problem is an ongoing problem. Symptoms have improved. mh7
[2019-10-15] MEDS ORDERED: SMZ./TMP. 800/160 MG TABLET ONE (04:54)
[2019-10-15 05:58] VITALS: TEMP 99.8
[2019-10-15 06:05] VITALS: BP 119/65; O2SAT 98
--- NOTE | 2019-10-16 10:02 | RAD REPORT ---
EXAM DESCRIPTION: Abdomen Pelvis Wo Contrast CLINICAL HISTORY: The patient is 38 years old and is Female; FLANK PAIN TECHNIQUE: Axial computed tomography images of the abdomen and pelvis without intravenous contrast. Sagittal and coronal reformatted images were created and reviewed. This CT exam was performed usi ng one or more of the following dose reduction techniques: automated exposure control, adjustment o f the mA and/or kV according to patient size, and/or use of iterative reconstruction technique. DLP: 2118 mGy*cm COMPARISON: CT abdomen and pelvis dated May 13, 2018. FINDINGS: LUNG BASES: Lung bases are clear. HEART: Visualized heart is normal. ABDOMEN: LIVER: Unremarkable. GALLBLADDER AND BILE DUCTS: Prior cholecystectomy. No ductal dilation. PANCREAS: Unremarkable. No ductal dilation. SPLEEN: Unremarkable. No splenomegaly. ADRENALS: Unremarkable. No mass. KIDNEYS AND URETERS: Unremarkable. No obstructing stones. No hydronephrosis. STOMACH AND BOWEL: Mild to moderate stool burden in the proximal/mid left bowel. No obstruction. No mucosal thickening. PELVIS: APPENDIX: The appendix is seen and is within normal limits. BLADDER: Bladder is decompressed. No stones. REPRODUCTIVE: 6.0 cm right ovarian cyst. ABDOMEN and PELVIS: INTRAPERITONEAL SPACE: Unremarkable. No free air. No significant fluid collection. BONES/JOINTS: Lower lumbar facet arthropathy. No acute fracture. No dislocation. SOFT TISSUES: Prior umbilical hernia repair with mesh placement. VASCULATURE: Unremarkable. No abdominal aortic aneurysm. LYMPH NODES: Unremarkable. No enlarged lymph nodes. IMPRESSION: 1. No acute abdominal or pelvic abnormality. No obstructive uropathy. 2. 6.0 cm right ovarian cyst. Recommend prompt follow-up with pelvic US. Reference: J Am Chiquita Radiol 2013;10:675-681. 3. Mild to moderate stool burden in the proximal/mid left bowel. Correlate for constipation. Electronically signed by: Zackery Haas DO 10/15/2019 1:23 AM CDT Due to temporary technical issues with the PACS/Fluency reporting system, reports are being signed by the in house radiologist without review as a courtesy to ensure prompt reporting. The interpreting r adiologist is fully responsible for the content of the report.
== END 2019-10-15 04:50 | disposition home or self-care (01) ==
LOC: ER 22:17
DX: N12 Tubulo-interstitial nephritis, not specified as acute or chronic (principal); E03.9 Hypothyroidism, unspecified; F31.9 Bipolar disorder, unspecified; F20.9 Schizophrenia, unspecified; Z91.040 Latex allergy status; Z91.048 Other nonmedicinal substance allergy status
CPT/HCPCS: 96361; 87088; 85025; 87086; 80048; 36415; 81025; 80076; 87077; 87186; 81003; 81015; 83690; 74176; 96375; 96374; 99284; J7030

== ENCOUNTER 2020-01-22 16:29 | Emergency (ER) | payer OTHER ==
--- OUTSIDE RECORDS SUMMARY | 2020-01-22 16:32 | XMS REPORT | Summary of Care ---
:1980 Author Organization [facility] Address [address] [place] [id number] Care Team Providers Name Role Phone 1, Sleep Lab Bed Unavailable Unavailable Mary Malone MD Unavailable Smooth Mosley MD Unavailable Unavailable Pcp, Does Not Have A Primary Care Provider Reason for Visit Reason Comments Refill Request Encounter Details Date Type Department Care Team Description 12/28/2019 Refill [facility] Endocrinology- Chema Denton MD Refill Request [place] [address] [address] [phone] Allergies Active Allergy Reactions Severity Noted Date Comments Latex Itching High 12/20/2015 documented as of this encounter (statuses as of 12/30/2019) Medications Medication Sig Dispensed Refills Start End Date Status Date SAVELLA 50 mg Take 25 mg [...] 1/2 tablet PM 0 tabletIndications: Adrenal insufficiency topiramate 25 mg Take 1 tablet by 90 tablet 1 Active tabletIndications: mouth daily. 0 Morbid obesity with BMI of 45.0-49.9, adult levothyroxine 175 1 tablet daily 90 tablet 1 Active mcg Saturday through 0 tabletIndications: Saturday, and 1/2 Postablative tablet on Saturday. hypothyroidism PHENTERMINE 37.5 mg TAKE 1 CAPSULE BY 90 capsule 0 Active capsuleIndications: MOUTH EVERY DAY 0 Morbid obesity with IN THE MORNING BMI of 45.0-49.9, adult phentermine 37.5 mg Take 1 capsule by 90 capsule 0 1 02/28/19 Discontinued capsuleIndications: mouth every 0 20 Morbid obesity with morning. 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 encounter Plan of Treatment Date Type Specialty Care Team Description 01/29/2020 Office Visit Endocrinology Diabetes & Chema Piña MD Metabolism [address] [facility] [address] [place] [address] 15 [phone] Health Maintenance Due Date Last Done Comments Depression Screening 1990 DTaP,Tdap,and Td Vaccines (1 1997 - Tdap) Breast Cancer Screening 2018 (MAMMOGRAM) INFLUENZA VACCINE (#1) 2019 01/14/2018, 01/14/2018 PAP SMEAR 03/09/2021 03/09/2016, 06/05/2011 PNEUMOCOCCAL 0-64 YEARS Aged Out No longe r eligible based COMBINED SERIES on patient's age to complete this to [facility] documented as of this encounter Results Not on filedocumented in this encounter Visit Diagnoses Diagnosis Morbid obesity with BMI of 45.0-49.9, ad ult documented in this encounter Insurance Payer Benefit Plan / Subscriber ID Effective Dates Phone Addre ss Type Group [facility] STAR [id number] 2016-Present Medicaid COMM PLAN - PLUS MANAGED MEDICAID documented as of this encounter
--- OUTSIDE RECORDS SUMMARY | 2020-01-22 16:32 | XMS REPORT | Continuity of Care Document ---
:1980 Author Organization [facility] t Address [address] [place] [address] Care Team Providers Name Role Phone Angelica [...] sleep [facility] - apnea apnea [facility] Gallstone Gallstone Problem [facility] Fibromyalg Fibromyalg Problem Active [facility] Chronic Chronic Problem Active [facility] pain pain [facility] - syndrome syndrome Memori a l [facility] Muscle Muscle Problem Active [facility] weakness weakness [facility] Insomnia, Insomnia, Problem Active [facility] unspecifie unspecifie Margot kes - d type d type [facility]oria [facility] Bipolar Bipolar Problem Active [facility] disorder disorder [facility] Hypothyroi Hypothyroi Problem Active [facility] dism, dism, [facility] - unspecifie unspecifie Me moria d type d type l [facility]ics Depression Depression Problem Active [facility] with with [facility] - anxiety anxiety Memoria l [facility] Foot pain Foot pain Problem Active [facility] CPAP CPAP Problem Active [...] - 00:00: 00:00 morning Memoria 00 :00 [facility] ent [facility] Pantoprazol Pantoprazol Yes Cinda [address] [facility] e Sodium e Sodium 10-25 Millender Margot kes - 00:00: Memoria 00 [facility] ent [facility] Chlordiazep Chlordiazep 2019- No Cinda [address] [facility] oxide-Clidi oxide-Clidi 10-25 Millender [facility] - nium nium 00:00: 00:00 Memoria 00 :00 [facility] ent [facility] Neurontin Neurontin Yes Cinda [address] [facility] [address] Millender [facility] ent [facility] Amitriptyli Amitriptyli Yes Cinda [address] [facility] ne HCl ne HCl Millender [facility] ent [facility] Topamax Topamax Yes Cinda 1 tablet [facility] [...] Immunizations Ordered Filled Immunization Date Status Comments [facility] e Immunization Name Name Flucelvax - single Flucelvax - single 2019-04-[address] [facility] - dose syringe dose syringe 00:00:00 [facility] Procedures This patient has no known procedures. Encounters Start End Encounter Admission Attending Care Care Encounter Source Date/Time Date/Time Type Type Clinicians Facility Department ID 2019-12-28 2019-12-28 DEBBIE Venegas [id number] 00:00:00 00:00:00 Chema Stratton [id number] [place] [id number] Professio [phone] [address] 2019-07-24 2019-07-24 Telemedici Dominguez, [facility] [id number] 08:17:11 11:47:51 ne Visit Chema Stratton [id number] [place] [id number] Professio [phone] [address] 2019-07-10 2019-07-10 Refill Isidro, [facility] [id number] 00:00:00 00:00:00 Leathaargelia MULTISPEC [id number] IAL[facility] [id number] CENTER [phone] [place] [address] [facility] 2019-05-20 2019-05-20 Telemedici Isidro [facility] [id number] 08:37:33 13:26:38 ne Visit Venessa Stratton [id number] [place] [id number] Professio [phone] [address] 2019-05-20 2019-05-20 [facility] [id number] 00:00:00 00:00:00 Venessa Stratton [id number] [place] [id number] Professio [phone] [address] 2019-05-17 2019-05-17 Refill Isidro, [facility] [id number] 00:00:00 00:00:00 Venessa Stratton [id number] [place] [id number] Professio [phone] [address] 2019-05-17 2019-05-17 Refill Zully, [facility] [id number] 00:00:00 00:00:00 Nicole [place]ton [id number] Hsieh [place] [id number] Professio [phone] [address] 2019-05-15 2019-05-15 Refill Felix, [facility] [id number] 00:00:00 00:00:00 Venessa Oberon [id number] [place] [id number] Professio [phone] [facility] 2019-04-28 2019-04-28 Refill Zully, [facility] [id number] 00:00:00 00:00:00 Nicole MULTISPEC [id number] Hsieh SHAYLALTY [id number] CENTER [phone] [facility] 2019-04-24 2019-04-24 Refill Felix, [facility] [id number] 00:00:00 00:00:00 Venessa Oberon [id number] [place] [id number] Professio [phone] [facility] 2019-04-12 2019-04-12 [facility] [id number] [address] 21:42:00 21:42:00 [facility] 2019-04-09 2019-04-09 [facility] [id number] 10:45:00 10:45:00 [facility] 2019-04-03 2019-04-03 Refill Felix, [facility] [id number] 00:00:00 00:00:00 Venessa Oberon [id number] [place] [id number] Professio [phone] [facility] 2018-10-30 2018-10-30 Telephone Felix, [facility] [id number] 00:00:00 00:00:00 Venessa Oberon [id number] [place] [id number] Professio [phone] [facility] 2018-09-19 2018-09-19 Refill Andrea, [facility] [id number] 00:00:00 00:00:00 Nicole Oberon [id number] Мария Hanson [id number] [facility] [phone] [facility] 2018-08-06 2018-08-06 [facility] [id number] 11:09:00 11:09:00 [facility] Medicine Outpati ent Clinics 2018-04-23 2018-04-23 [facility] [id number] 01:12:00 01:12:00 [facility] Out[facility] Clin[facility] 2018-04-22 2018-04-22 [facility] [id number] 16:00:00 16:00:00 [facility] Clin[facility] 2017-10-29 2017-10-29 [facility] [id number] 09:06:00 09:06:00 [facility] Out[facility] Clin[facility] 2017-10-25 2017-10-25 [facility] [id number] 23:08:00 23:08:00 [facility] 2017-10-25 2017-10-25 [facility] [id number] 15:00:00 15:00:00 [facility] Out[facility] Clinics Results This patient has no known results.
[2020-01-22] MEDS ORDERED: DIAZEPAM 5 MG TABLET ONE (18:06)
[2020-01-22] MEDS ORDERED: MORPHINE 4 MG/ML SYR ONE (18:06)
[2020-01-22] MEDS ORDERED: ONDANSETRON 4 MG (ODT) TAB ONE (18:07)
[2020-01-22 18:12] LABS: Urine Specific Gravity 1.025 (1.005-1.030)
[2020-01-22 18:31] LABS: Urine Blood TRACE (NEG); Urine Glucose NEGATIVE (NEG); Urine Protein NEGATIVE (NEG); Urine Specific Gravity 1.025 (1.005-1.030)
--- NOTE | 2020-01-22 18:42 | RAD REPORT ---
EXAM DESCRIPTION: RAD - Pelvis - 01/22/2020 6:21 pm CLINICAL HISTORY: Pelvic pain status post injury FINDINGS: No fracture or dislocation is seen. If the patient continues to have symptoms to suggest an occult fracture then MRI would be recommended
--- NOTE | 2020-01-22 18:44 | RAD REPORT ---
EXAM DESCRIPTION: RAD - Knee Right 3 View - 01/22/2020 6:21 pm CLINICAL HISTORY: Right knee pain status post injury FINDINGS: No fracture or dislocation is seen.
--- NOTE | 2020-01-22 18:45 | RAD REPORT ---
EXAM DESCRIPTION: RAD - Humerus Left - 01/22/2020 6:21 pm CLINICAL HISTORY: Left arm pain status post fall FINDINGS: No fracture is seen
--- NOTE | 2020-01-22 18:48 | RAD REPORT ---
EXAM DESCRIPTION: RAD -Hand Left 3 View - 01/22/2020 6:21 pm CLINICAL HISTORY: Left hand pain status post injury FINDINGS: No fracture or dislocation is seen.
--- NOTE | 2020-01-22 18:48 | RAD REPORT ---
EXAM DESCRIPTION: RAD - Hand Right 3 View - 01/22/2020 6:21 pm CLINICAL HISTORY: Right hand pain status post injury FINDINGS: No fracture or dislocation is seen.
--- NOTE | 2020-01-22 19:19 | ER ---
Nurse's Notes [facility] Name: Lavinia Jarrett Age: 39 yrs Sex: Female : 1980 Arrival Date: 01/22/2020 Time: 16:32 Bed X-Ray Private MD: Diagnosis: Pain in right knee;Pain in left wrist;Pain in left hand;Pain in hip Presentation: 01/21 16:52 Chief complaint: Patient states: tripped on curb several minutes ago, reports left arm em pain, left hand pain, belly pain and left hip, denies LOC or hitting head, abrasion noted to left elbow. Coronavirus screen: Client denies travel out of the [place] in the last 14 days. Ebola Screen: Patient negative for fever greater than or equal to 101.5 degrees Fahrenheit, and additional compatible Ebola Virus Disease symptoms Patient denies exposure to infectious person. Patient denies travel to an Ebola-affected area in the 21 days before illness onset. No symptoms or risks identified at this time. Initial Sepsis Screen: Does the patient meet any 2 criteria? No. Patient's initial sepsis screen is negative. Does the patient have a suspected source of infection? No. Patient's initial sepsis screen is negative. Risk Assessment: Do you want to hurt yourself or someone else? Patient reports no desire to harm self or others. Onset of symptoms was January 22, 2020. 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 - Social history:: Smoking status: . Screenin:21 Abuse screen: Denies threats or abuse. Denies injuries from another. Nutritional iw screening: No deficits noted. Tuberculosis screening: No symptoms or risk factors identified. Fall Risk Fall in past 12 months (25 points). No IV (0 pts). Assessment: 17:40 General: Appears in no apparent distress. Behavior is calm, cooperative. Pain: iw Complains of pain in back, buttocks, right hand, left hand and right arm. Neuro: Level of Consciousness is awake, alert, obeys commands, Oriented to person, place, time, situation, Moves all extremities. Full function. Cardiovascular: Patient's skin is warm and dry. Respiratory: Respiratory effort is even, unlabored, Respiratory pattern is regular, symmetrical. Derm: Skin Skin is normal. Musculoskeletal: Range of motion: intact in all extremities. Injury Description: Abrasion sustained to left elbow. 18:09 Reassessment: Patient appears in no apparent distress at this time. Patient and/or iw family updated on plan of care and expected duration. Pain level reassessed. Patient is alert, oriented x 3, equal unlabored respirations, skin warm/dry/pink. pt to radiology for xrays. 19:21 Reassessment: Patient appears in no apparent distress at this time. Patient and/or iw family updated on plan of care and expected duration. Pain level reassessed. Patient is alert, oriented x 3, equal unlabored respirations, skin warm/dry/pink. Vital Signs: 16:52 BP 148 / 90; Pulse 85; Resp 18; Temp 98.1(O); Pulse Ox 100% on R/A; Weight 107.95 kg; em Height 5 ft. 5 in. (165.10 cm); Pain 10/10; 16:52 Body Mass Index 39.60 (107.95 kg, 165.10 cm) em ED Course: 16:32 Patient arrived in ED. mr 16:54 Triage completed. em 16:56 Arm band placed on. em 16:56 Patient has correct armband on for positive identification. iw 17:18 Syed Hernandez PA is PHCP. m 17:18 Leigh Ann Garnett MD is Attending Physician. jmm 17:46 Belinda Felix, KESHAV is Primary Nurse. iw 18:09 No provider procedures requiring assistance completed. Patient did not have IV access iw during this emergency room visit. 18:21 Pelvis XRAY In Process Unspecified. EDMS 18:21 Knee Right 3 View XRAY In Process Unspecified. EDMS 18:21 Hand Right 3 View XRAY In Process Unspecified. EDMS 18:21 Hand Left 3 View XRAY In Process Unspecified. EDMS 18:21 Humerus Left XRAY In Process Unspecified. EDMS 19:17 Josue Hernandez MD is Referral Physician. latanya Administered Medications: 17:45 CANCELLED (other medication used): Stow 10 mg-325 mg 1 tabs PO once; RASS on ADMIN: latanya Combtv4, Very Agttd3, Agttd2, Rstlss1, AlertClm0, Drwsy-1, Lt Sdtn-2, Mod Sdtn-3, Dp Sdtn-4, UnArsble-5 18:04 Drug: Valium 10 mg Route: PO; iw 18:04 Drug: morphine 4 mg Route: IM; Site: right deltoid; iw 18:05 Drug: Zofran (Ondansetron) 4 mg Route: PO; iw 19:10 Drug: Ketorolac 30 mg Route: IM; Site: right deltoid; iw Outcome: 19:18 Discharge ordered by MD. latanya 19:22 Discharged to home ambulatory, with family. iw 19:22 Condition: good 19:22 Discharge instructions given to patient, Instructed on discharge instructions, follow up and referral plans. medication usage, Demonstrated understanding of instructions, follow-up care, medications, Prescriptions given X 2. 19:28 Patient left the ED. sg Signatures: Dispatcher [employer] Josue Love, RN RN Syed Richardson PA PA jmm Rivera, Mary mr Munoz, Edgar RN Belinda Hernández RN RN iw
--- NOTE | 2020-01-22 19:19 | EDPHYS ---
Physician Documentation [facility] Name: Lavinia Jarrett Age: 39 yrs Sex: Female : 1980 Arrival Date: 01/22/2020 Time: 16:32 Bed X-Ray Private MD: ED Physician Leigh Ann Garnett HPI: 01/21 17:40 This 39 yrs old Female presents to ER via Ambulatory with complaints of Fall jmm Injury. 17:40 Onset: The symptoms/episode began/occurred acutely, just prior to arrival. Associated jmm injuries: The patient sustained knee, hand, wrist, pelvis. This is a 39 year old female with a history of addisons disease. bipolar, chronic pain, depression that presents to the ED with complaints of right knee pain, left sided arm pain after tripping on a ramp and falling forward onto her left side. Denies head injury vomiting. . 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 - Social history:: Smoking status: . ROS: 17:40 Constitutional: Negative for fever, chills, and weight loss, Cardiovascular: Negative jmm for chest pain, palpitations, and edema, Respiratory: Negative for shortness of breath, cough, wheezing, and pleuritic chest pain. 17:40 MS/extremity: Positive for pain. 17:40 All other systems are negative. Exam: 17:40 Constitutional: This is a well developed, well nourished patient who is awake, alert, jmm and in no acute distress. Head/Face: atraumatic. Eyes: EOMI, no conjunctival erythema appreciated ENT: Moist Mucus Membranes Neck: Trachea midline, Supple Chest/axilla: Normal chest wall appearance and motion. Cardiovascular: Regular rate and rhythm. No edema appreciated Respiratory: Normal respirations, no respiratory distress appreciated Abdomen/GI: Non distended, soft Back: Normal ROM Skin: General appearance color normal 17:40 Musculoskeletal/extremity: pain on palpation of the right knee, no obvious deformity appreciated, compartments are soft to all extremities, pulses intact. Mild pain noted to the mid humeral region, left distal radius left distal ulan, full radial pulse, no snuff box tenderness, NVI. 17:40 Skin: Appearance: Color: normal in color. 17:40 Neuro: Orientation: is normal, Mentation: is normal, Memory: is normal. 17:40 Psych: Behavior/mood is pleasant, cooperative. Vital Signs: 16:52 BP 148 / 90; Pulse 85; Resp 18; Temp 98.1(O); Pulse Ox 100% on R/A; Weight 107.95 kg; em Height 5 ft. 5 in. (165.10 cm); Pain 10/10; 16:52 Body Mass Index 39.60 (107.95 kg, 165.10 cm) em MDM: 17:40 Patient medically screened. mauri 19:16 Data reviewed: vital signs, nurses notes. Counseling: I had a detailed discussion with latanya the patient and/or guardian regarding: the historical points, exam findings, and any diagnostic results supporting the discharge/admit diagnosis, radiology results, the need for outpatient follow up, to return to the emergency department if symptoms worsen or persist or if there are any questions or concerns that arise at home. 01/21 18:09 Order name: Urine --Ancillary (enter results); Complete Time: 18:18 01/21 18:24 Order name: Urine Dipstick--Ancillary (enter results); Complete Time: 18:46 01/21 17:44 Order name: Pelvis XRAY; Complete Time: 18:46 [facility] 01/21 17:44 Order name: Knee Right 3 View XRAY; Complete Time: 18:46 [facility] 01/21 17:44 Order name: Hand Right 3 View XRAY; Complete Time: 18:58 [facility] 01/21 17:44 Order name: Hand Left 3 View XRAY; Complete Time: 18:58 [facility] 01/21 17:45 Order name: Humerus Left XRAY; Complete Time: 18:46 [facility] 01/21 17:44 Order name: Urine Test (obtain specimen); Complete Time: 18:08 [facility] Administered Medications: 17:45 CANCELLED (other medication used): Nye 10 mg-325 mg 1 tabs PO once; RASS on ADMIN: latanya Combtv4, Very Agttd3, Agttd2, Rstlss1, AlertClm0, Drwsy-1, Lt Sdtn-2, Mod Sdtn-3, Dp Sdtn-4, UnArsble-5 18:04 Drug: Valium 10 mg Route: PO; iw 18:04 Drug: morphine 4 mg Route: IM; Site: right deltoid; iw 18:05 Drug: Zofran (Ondansetron) 4 mg Route: PO; iw 19:10 Drug: Ketorolac 30 mg Route: IM; Site: right deltoid; iw Disposition: 01/22/20 19:18 Discharged to Home. Impression: Pain in right knee, Pain in left wrist, Pain in left hand, Pain in hip. - Condition is Stable. - Discharge Instructions: Musculoskeletal Pain, Knee Pain. - Prescriptions for Ibuprofen 800 mg Oral Tablet - take 1 tablet by ORAL route every 8 hours As needed take with food; 30 tablet. Zanaflex 4 mg Oral Tablet - take 1 tablet by ORAL route every 8 hours As needed; 20 tablet. - Medication Reconciliation Form, Thank You Letter, Antibiotic Education, Prescription Opioid Use, Work release form form. - Follow up: Josue Hernandez MD; When: 2 - 3 days; Reason: Recheck today's complaints, Continuance of care, Re-evaluation by your physician. Addendum: 01/26/2020 03:32 Co-signature as Attending Physician, Leigh Ann Garnett MD. m a2 Signatures: Dispatcher [employer] Josue Love RN RN sg Mickail, Joel, PA PA jmm Munoz, Edgar, RN RN em Williams, Irene, RN RN iw Alzahri, Mohammad, MD MD ma2 Corrections: (The following items were deleted from the chart) 01/21 17:45 17:44 Nye 10 mg-325 mg 1 tabs PO once; RASS on ADMIN: Combtv4, Very Agttd3, Agttd2, m Rstlss1, AlertClm0, Drwsy-1, Lt Sdtn-2, Mod Sdtn-3, Dp Sdtn-4, UnArsble-5 ordered. [facility] 18:06 17:45 Wrist Left 3 View+RAD.RAD.BRZ ordered. EDMS EDMS 18:06 17:45 Elbow Left 3 View+RAD.RAD.BRZ ordered. EDMS EDMS 19:28 19:18 01/22/2020 19:18 Discharged to Home. Impression: Pain in right knee; Pain in left sg wrist; Pain in left hand; Pain in hip. Condition is Stable. Forms are Work release form, Medication Reconciliation Form, Thank You Letter, Antibiotic Education, Prescription Opioid Use. Follow up: Josue Hernandez; When: 2 - 3 days; Reason: Recheck today's complaints, Continuance of care, Re-evaluation by your physician. latanya
[2020-01-22] MEDS ORDERED: KETOROLAC 30 MG/ML INJ ONE (19:23)
[2020-01-22 22:14] VITALS: BP 148/90; TEMP 98.1; O2SAT 100
== END 2020-01-22 19:28 | disposition home or self-care (01) ==
LOC: ER 16:29
DX: M25.532 Pain in left wrist (principal); M79.642 Pain in left hand; M25.552 Pain in left hip; F31.9 Bipolar disorder, unspecified; Z91.040 Latex allergy status; Z91.048 Other nonmedicinal substance allergy status
CPT/HCPCS: 72170; 81003; 81025; 96372; 99283

== ENCOUNTER 2020-12-20 22:00 | Emergency (ER) | payer OTHER ==
[2020-12-21] MEDS ORDERED: dexAMETHasone 10 MG/ML VIAL ONE
[2020-12-21] MEDS ORDERED: LEVALBUTEROL 1.25 MG/3 ML NEB ONE (00:01)
--- NOTE | 2020-12-21 02:15 | ER ---
Nurse's Notes [facility] Name: Lavinia Jarrett Age: 40 yrs Sex: Female : 1980 Arrival Date: 12/20/2020 Time: 22:02 Bed 7 Private MD: Diagnosis: Pneumonia Presentation: 12/20 22:28 Chief complaint: Patient states: reports cough, congestion, runny nose, wheezing, and sj1 back pain since Saturday. covid vax x 3 doses. Coronavirus screen: Vaccine status: Patient reports receiving the 2nd dose of the covid vaccine. Ebola Screen: No symptoms or risks identified at this time. Initial Sepsis Screen: Does the patient meet any 2 criteria? No. Patient's initial sepsis screen is negative. Does the patient have a suspected source of infection? No. Patient's initial sepsis screen is negative. Risk Assessment: Do you want to hurt yourself or someone else? Patient reports no desire to harm self or others. Onset of symptoms was December 18, 2020. 22:28 Method Of Arrival: Ambulatory [facility] 22:28 Acuity: KIKA 3 [facility] Triage Assessment: 22:30 General: Appears in no apparent distress. Behavior is calm, cooperative, appropriate sj for age. Pain: Complains of pain in back Pain does not radiate. Pain currently is 10 out of 10 on a pain scale. at worst was 10 out of 10 on a pain scale. level that patient reports is acceptable is 0 out of 10 on a pain scale. Quality of pain is described as aching, Pain began 2-3 days ago. Is continuous, Alleviated by nothing. Aggravated by cough. Neuro: Level of Consciousness is awake, alert, obeys commands, Oriented to person, place, time, situation. Cardiovascular: No deficits noted. Respiratory: Reports shortness of breath at rest on exertion cough that is dry. GI: No signs and/or symptoms were reported involving the gastrointestinal system. : No signs and/or symptoms were reported regarding the genitourinary system. Musculoskeletal: Reports pain in back. 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 - Home Meds: 23:16 butrans 20 mcg/hr patch every week [Active]; Chlordiazepoxide Oral 1 cap 3 times per bs2 day [Active]; Cholestyramine Light Oral [Active]; clonazepam 2 mg Oral tab 1 tab 2 times per day [Active]; dicyclomine 20 mg Oral tab 1 tab 3 times per day [Active]; docusate sodium 100 mg Oral cap [Active]; hydrocortisone 10 mg Oral tab 1.5 tab 1 tab at 2pm [Active]; Lyrica 100 mg Oral 1 cap 3 times per day [Active]; methocarbamol 500 mg Oral tab 1 tabs BID [Active]; oxycarbazepine 150 mg BID [Active]; Prednisone Oral [Active]; promethazine 25 mg Oral tab as needed [Active]; Savella 50 mg Oral tab 1 tab 2 times per day [Active]; SUMATRIPTAN 50 mg [Active]; tizanidine 4 mg Oral tab 1 tab BID [Active]; tramadol 50 mg Oral tab as needed [Active]; topiramate 25 mg Oral CSpX 1 cap once daily [Active]; Zofran (as hydrochloride) 4 mg Oral tab 2 tabs every 8 hours [Active]; Vitamin D Oral daily [Active]; venlafaxine 150 mg Oral cp24 1 cap once daily [Active]; trazodone 50 mg Oral tab 1 tab once a day [Active]; Synthroid 150 mcg Oral tab [Active]; solu-cortef [Active]; pantoprazole 40 mg Oral TbEC 1 tab once daily [Active]; baclofen 10 mg Oral tab 1 1-2 tab BID [Active]; - PMHx: 22:30 Aston's disease; Bipolar disorder; Chronic pain; Depression; Fibromyalgia; 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 - Social history:: Smoking status: Patient reports the use of cigarette tobacco products, smokes one pack cigarettes per day. Patient/guardian denies using alcohol, street drugs. Screenin:34 Abuse screen: Denies threats or abuse. Denies injuries from another. Nutritional sj1 screening: No deficits noted. Tuberculosis screening: No symptoms or risk factors identified. Fall Risk None identified. Assessment: 23:15 General: Appears in no apparent distress. uncomfortable, Behavior is cooperative, bs2 appropriate for age. Neuro: No deficits noted. Neuro: Level of Consciousness is awake, alert, Oriented to person, place, time, situation, Appropriate for age Pointer Helper are equal bilaterally Moves all extremities. Full function Gait is steady, Speech is normal, Facial symmetry appears normal, Pupils are PERRLA, Reports. Respiratory: Reports shortness of breath on exertion cough that is non-productive, Airway is patent Trachea midline Respiratory effort is even, unlabored, Respiratory pattern is regular, symmetrical. Vital Signs: 22:28 BP 132 / 76; Pulse 88; Resp 20 S; Temp 98.3; Pulse Ox 100% ; Weight 107.95 kg (R); sj1 Height 5 ft. 5 in. (165.10 cm); Pain 10; 12/21 02:29 BP 128 / 75; Pulse 88; Resp 22; Temp 98.6; Pulse Ox 100% on R/A; Pain 4/10; bs2 12/20 22:28 Body Mass Index 39.60 (107.95 kg, 165.10 cm) 1 ED Course: 12/20 22:02 Patient arrived in ED. bp1 22:19 Syed Hernandez PA is PHCP. jmm 22:19 Shabbir Henrdix MD is Attending Physician. jmm 22:30 Triage completed. sj1 22:30 Arm band placed on left wrist. sj1 22:34 Patient has correct armband on for positive identification. sj1 23:13 Patricia Che, RN is Primary Nurse. bs2 23:44 Chest Single View XRAY In Process Unspecified. EDMS 12/21 02:28 No provider procedures requiring assistance completed. Patient did not have IV access bs2 during this emergency room visit. Administered Medications: 12/20 23:59 Drug: Decadron (dexamethasone) 10 mg Route: IM; Site: right deltoid; bs2 12/21 02:27 Follow up: Response: No adverse reaction bs2 12/20 23:59 Drug: Xopenex (levalbuterol) (3) 1.25 mg Route: Inhalation; bs2 12/21 02:28 Follow up: Response: No adverse reaction bs2 02:10 Drug: AZITHromycin 500 mg Route: PO; bs2 02:28 Follow up: Response: No adverse reaction bs2 02:10 Drug: Ketorolac 30 mg Route: IM; Site: left deltoid; bs2 02:28 Follow up: Response: No adverse reaction bs2 Outcome: 02:15 Discharge ordered by . latanya 02:28 Discharged to home ambulatory, with family. bs2 02:28 Condition: stable 02:28 Discharge instructions given to patient, family, Instructed on discharge instructions, follow up and referral plans. medication usage, Demonstrated understanding of instructions, follow-up care, medications, Prescriptions given X 2. 02:30 Patient left the ED. bs2 Signatures: Dispatcher [employer] EDMS Syed Hernandez PA PA jmm Paniauga, Brittany bp1 Smith, Bridget RN RN bs2 Flores Keyes RN RN sj1 Corrections: (The following items were deleted from the chart) 12/20 23:18 22:30 Home Meds: Unable to obtain; sj1 bs2
--- NOTE | 2020-12-21 02:15 | EDPHYS ---
Physician Documentation [facility] Name: Lavinia Jarrett Age: 40 yrs Sex: Female : 1980 Arrival Date: 12/20/2020 Time: 22:02 Bed 7 Private MD: ED Physician Shabbir Hendrix HPI: 12/21 00:49 This 40 yrs old Female presents to ER via Ambulatory with complaints of Cough, jmm Back Pain. 00:49 The patient or guardian reports cough. Onset: The symptoms/episode began/occurred jmm gradually. Modifying factors: The symptoms are alleviated by nothing, the symptoms are aggravated by nothing. Associated signs and symptoms: Pertinent positives: Cough, wheezing, upper back pain with cough. 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 sj1 Historical: - Allergies: 22:30 Latex, Natural Rubber; sj1 - Home Meds: 23:16 butrans 20 mcg/hr patch every week [Active]; Chlordiazepoxide Oral 1 cap 3 times per bs2 day [Active]; Cholestyramine Light Oral [Active]; clonazepam 2 mg Oral tab 1 tab 2 times per day [Active]; dicyclomine 20 mg Oral tab 1 tab 3 times per day [Active]; docusate sodium 100 mg Oral cap [Active]; hydrocortisone 10 mg Oral tab 1.5 tab 1 tab at 2pm [Active]; Lyrica 100 mg Oral 1 cap 3 times per day [Active]; methocarbamol 500 mg Oral tab 1 tabs BID [Active]; oxycarbazepine 150 mg BID [Active]; Prednisone Oral [Active]; promethazine 25 mg Oral tab as needed [Active]; Savella 50 mg Oral tab 1 tab 2 times per day [Active]; SUMATRIPTAN 50 mg [Active]; tizanidine 4 mg Oral tab 1 tab BID [Active]; tramadol 50 mg Oral tab as needed [Active]; topiramate 25 mg Oral CSpX 1 cap once daily [Active]; Zofran (as hydrochloride) 4 mg Oral tab 2 tabs every 8 hours [Active]; Vitamin D Oral daily [Active]; venlafaxine 150 mg Oral cp24 1 cap once daily [Active]; trazodone 50 mg Oral tab 1 tab once a day [Active]; Synthroid 150 mcg Oral tab [Active]; solu-cortef [Active]; pantoprazole 40 mg Oral TbEC 1 tab once daily [Active]; baclofen 10 mg Oral tab 1 1-2 tab BID [Active]; - PMHx: 22:30 Aston's disease; Bipolar disorder; Chronic pain; Depression; Fibromyalgia; 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 - Social history:: Smoking status: Patient reports the use of cigarette tobacco products, smokes one pack cigarettes per day. Patient/guardian denies using alcohol, street drugs. ROS: 12/21 00:49 Constitutional: Negative for fever, chills, and weight loss, Cardiovascular: Negative jmm for chest pain, palpitations, and edema. Respiratory: Positive for cough, wheezing. All other systems are negative. Exam: 00:49 Constitutional: This is a well developed, well nourished patient who is awake, alert, jmm and in no acute distress. Head/Face: atraumatic. Eyes: EOMI, no conjunctival erythema appreciated ENT: Moist Mucus Membranes Neck: Trachea midline, Supple Chest/axilla: Normal chest wall appearance and motion. Cardiovascular: Regular rate and rhythm. No edema appreciated 00:49 Skin: General appearance color normal MS/ Extremity: Moves all extremities, no obvious deformities appreciated, no edema noted to the lower extremities Neuro: Awake and alert, normal gait Psych: Behavior is normal, Mood is normal, Patient is cooperative and pleasant 00:49 Respiratory: mild respiratory distress is noted, Respirations: Mild wheezing noted diffusely, Breath sounds: 00:49 Abdomen/GI: Inspection: abdomen appears normal, Bowel sounds: normal. Vital Signs: 12/20 22:28 BP 132 / 76; Pulse 88; Resp 20 S; Temp 98.3; Pulse Ox 100% ; Weight 107.95 kg (R); sj1 Height 5 ft. 5 in. (165.10 cm); Pain 12/04; 12/21 02:29 BP 128 / 75; Pulse 88; Resp 22; Temp 98.6; Pulse Ox 100% on R/A; Pain /10; bs2 12/20 22:28 Body Mass Index 39.60 (107.95 kg, 165.10 cm) sj1 MDM: 12/20 22:38 Patient medically screened. [facility] 12/21 00:50 Data reviewed: vital signs, nurses notes. Counseling: I had a detailed discussion with [facility] the patient and/or guardian regarding: the historical points, exam findings, and any diagnostic results supporting the discharge/admit diagnosis. 02:14 Counseling: I had a detailed discussion with the patient and/or guardian regarding: lab [facility] results, radiology results, the need for outpatient follow up, to return to the emergency department if symptoms worsen or persist or if there are any questions or concerns that arise at home. ED course: Is alert nontoxic appearance in the ED. Patient is not hypoxic. Will treat for pneumonia. Patient otherwise given strict return precautions. Patient understood and agrees plan of care.. 12/21 01:53 Order name: COVID-19 (Coronavirus) Document "Date of Onset" if Symptomatic [facility] 12/20 23:23 Order name: Chest Single View XRAY [facility] 12/21 01:33 Order name: CT Chest Wo Con [facility] Administered Medications: 12/20 23:59 Drug: Decadron (dexamethasone) 10 mg Route: IM; Site: right deltoid; bs2 12/21 02:27 Follow up: Response: No adverse reaction bs2 12/20 23:59 Drug: Xopenex (levalbuterol) (3) 1.25 mg Route: Inhalation; bs2 12/21 02:28 Follow up: Response: No adverse reaction bs2 02:10 Drug: AZITHromycin 500 mg Route: PO; bs2 02:28 Follow up: Response: No adverse reaction bs2 02:10 Drug: Ketorolac 30 mg Route: IM; Site: left deltoid; bs2 02:28 Follow up: Response: No adverse reaction bs2 Disposition: 08:03 Co-signature as Attending Physician, Shabbir Hendrix MD I agree with the assessment and [facility] plan of care. Disposition Summary: 12/21/20 02:15 Discharge Ordered Location: Home [facility] Condition: Stable [facility] Diagnosis - Pneumonia [facility] Followup: [facility] - With: Private Physician - When: 2 - 3 days - Reason: Recheck today's complaints, Continuance of care, Re-evaluation by your physician Discharge Instructions: - Discharge Summary Sheet [facility]-Acquired Pneumonia, Adult jm Forms: - Medication Reconciliation Form jmm - Thank You Letter jmm - Antibiotic Education jmm - Prescription Opioid Use jmm - Work release form mw2 Prescriptions: - albuterol sulfate 90 mcg/actuation Inhalation HFA aerosol inhaler - inhale 2 puff by INHALATION route every 4 hours; 1 Pump; Refills: 0, Product jmm Selection Permitted - Zithromax Z-Nilay 250 mg Oral Tablet - take 1 tablet by ORAL route as directed for 5 days Day 1 - take two (2) tablets jmm one time. Day 2, 3, 4 , 5 take one (1) tablet once daily.; 6 tablet; Refills: 0, Product Selection Permitted Signatures: Dispatcher [employer] Shabbir Thakkar MD MD cha Mickail, Joel, PA PA jmm Smith, Bridget, RN RN bs2 Flores Keyes RN RN sj1 Corrections: (The following items were deleted from the chart) 12/20 23:18 22:30 Home Meds: Unable to obtain; sj1 bs2
[2020-12-21] MEDS ORDERED: KETOROLAC 30 MG/ML INJ ONE (02:39)
[2020-12-21] MEDS ORDERED: AZITHROMYCIN 250 MG TAB ONE (02:39)
[2020-12-21 05:10] VITALS: O2SAT 100
[2020-12-21 05:11] VITALS: BP 128/75; TEMP 98.6
--- NOTE | 2020-12-21 13:38 | RAD REPORT ---
EXAM DESCRIPTION: RAD - Chest Single View - 12/20/2020 11:44 pm COMPARISON: None. CLINICAL HISTORY: [facility] MAIN cough, wheezing FINDINGS: A single AP view of the chest demonstrates an enlarged cardiomediastinal silhouette. No pneumothorax or pleural effusion. No consolidation or pulmonary edema. Bilateral perihilar opaciti es. Osseous structures are intact. IMPRESSION: Cardiomegaly. Bilateral perihilar opacities may represent edema or pneumonia. Electronically signed by: Brock Patten MD 12/21/2020 1:48 AM CDT Due to temporary technical issues with the PACS/Fluency reporting system, reports are being signed by the in house radiologists without review as a courtesy to insure prompt reporting. The interpreting radiologist is fully responsible for the content of the report.
== END 2020-12-21 02:30 | disposition home or self-care (01) ==
LOC: ER 22:00
DX: J18.9 Pneumonia, unspecified organism (principal); F20.9 Schizophrenia, unspecified; F17.210 Nicotine dependence, cigarettes, uncomplicated; Z20.822 Contact with and (suspected) exposure to COVID-19; Z91.040 Latex allergy status; Z91.048 Other nonmedicinal substance allergy status
CPT/HCPCS: 71045; 96372; 99284; U0003; J1100

== ENCOUNTER 2021-08-19 22:16 | Emergency (ER) | payer OTHER ==
--- OUTSIDE RECORDS SUMMARY | 2021-08-19 22:19 | XMS REPORT | Continuity of Care Document ---
:1980 Author Organization [facility] t Address [address] [place] [address] Care Team Providers Name Role Phone ROHITH Primary Care Physician Unavailable Janak Attending Clinician Unavailable JESSICA Attending Clinician Unavailable JESSICA Attending Clinician Unavailable Angelica VASQUEZ, H Attending Clinician VICENTE Attending Clinician Unavailable Trent HARRINGTON Attending Clinician Vicente VASQUEZ Attending Clinician Zully VASQUEZ, Hsieh Attending Clinician Unavailable Payers Payer Name Policy Type Policy Number Effective Date Expiration Date S ource Problems Condition Condition Condition Status Onset Resolution Last Treating Co mments Source Name Details Category Date Date Treatment Clinician Date 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 warts in 0-02 ity of female female 00:00: [address] Pelvic Pelvic Disease Active Univers adhesive adhesive 3-29 ity of disease disease 00:00: [address] [place] Disease Active Univers disease disease 2-04 ity of 00:00: [address] BV BV Disease Active Univers (bacterial (bacterial 1-17 it y of vaginosis) [place]in[place] [address] [place] [address] Hydrosalpi Hydrosalpi Disease Active U nivers nx nx 1-13 ity of 00:00: [address] Cyst of Cyst of Disease Active Univers maxillary maxillary 1-13 ity of sinus sinus 00:00: [address] Female Female Disease Active Univers infertilit infertilit 1-13 it y of y of y of 00:00: [place] unspecifie unspecifie 00 Me dical d origin d origin Branch Irritable Irritable Disease Active Uni vers bowel bowel 1-13 ity of syndrome syndrome 00:00: [place] with both with both 00 Medi juanito constipati constipati Br anch on and on and diarrhea diarrhea Fibromyalg Fibromyalg Disease Active 2015-02 U saúl ia ia 2-16 ity of 00:00: [place] 00 Medical Branch Pain in Pain in Disease Active 2015-02 Univers joint, joint, 2-16 ity of multiple multiple 00:00: [place] sites sites 00 Medical Branch History of History of Disease Active 2015-02 U saúl adrenal adrenal 2-16 ity of insufficie insufficie 00:00: Dustin ritchie ncy ncy 00 Medical Branch Chronic Chronic Disease Active 2015-02 Univers fatigue fatigue 2-16 ity of 00:00: [place] 00 Medical Branch Morbid Morbid Disease Active 2015-02 Univers obesity obesity 2-04 ity of with body with body 00:00: [facility] s mass index mass index 00 Me dical of of Branch 40.0-49.9 40.0-49.9 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 U saúl neurologic neurologic 0-12 it y of al symptom al symptom 00:00: Dustin ritchie disorder disorder 00 Medica l with mixed with mixed Br anch symptoms symptoms Low serum Low serum Disease Active Uni vers cortisol cortisol 9-06 ity of level level 00:00: [place] 00 Medical Branch Postablati Postablati Disease Active U saúl ve ve 7-11 ity of hypothyroi hypothyroi 00:00: Dustin ritchie dism dism 00 Medical Branch Weight Weight Disease Active Univers gain gain 7-11 ity of 00:00: [place] 00 Medical Branch Disorder Disorder Disease Active Overview: Un oskar of thyroid of thyroid 8-25 Formattin ity of 00:00: g of this 00 note Medical might be Branch different from the original. 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 [employer] Utility Migraine Migraine Problem Active Commo n without without Spirit status status - [facility] migrainosu migrainosu St s, not s, not [facility] intractabl intractabl Me dical e, e, Center unspecifie unspecifie d migraine d migraine type type Obstructiv Obstructiv Problem Active C ommon e sleep e sleep Spirit apnea apnea - [facility] Gallstone Gallstone Problem Active Com mon Spirit [facility] Fibromyalg Fibromyalg Problem Active C ommon ia ia [facility] Chronic Chronic Problem Active Common pain pain Spirit syndrome syndrome - [facility] Muscle Muscle Problem Active Common weakness weakness [facility] Insomnia, Insomnia, Problem Active Com mon unspecifie unspecifie Sp que d type d type - [facility] Bipolar Bipolar Problem Active Common disorder disorder [facility] Hypothyroi Hypothyroi Problem Active C ommon dism, dism, Spirit unspecifie unspecifie - [facility] d type d type [facility] Depression Depression Problem Active C ommon with with Spirit anxiety anxiety - [facility] Foot pain Foot pain Problem Active Com mon Spirit [facility] CPAP CPAP Problem Active Common (continuou (continuou Sp que s positive s positive - [facility]I airway airway St pressure) pressure) Luke s dependence dependence Me dical Center Diverticul Diverticul Problem Active Adriana to osis of osis of Spirit intestine intestine - CH I without without St bleeding, bleeding, Luke s unspecifie unspecifie Me dical d d Center intestinal intestinal tract tract location location Abdominal Abdominal Problem Active Com mon pain, pain, Spirit unspecifie unspecifie - [facility]I d d St abdominal abdominal Luke s location location Medica l Center Irritable Irritable Problem Active Com mon bowel bowel Spirit syndrome syndrome - [facility] with with St constipati constipati Margot kes on on Medical Center Gastroesop Gastroesop Problem Active C zuleika hageal hageal Spirit reflux reflux - [facility] disease, disease, St esophagiti esophagiti Margot kes s presence s presence Me dical not not Center specified specified Allergies, Adverse Reactions, Alerts Allergy Allergy Status Severity Reaction(s) Onset Inactive Treating Comm ents Source Name Type Date Date Clinician LATEX DRUG Active High ITCHING 2015-02 Univers INGREDI 0-25 ity of 00:00: [place] 00 Medical Branch Latex Propensi Active Itching 2015-02 Univers ty to 0-25 ity of adverse 00:00: [place] reaction 00 Medical s to Branch drug Social History Social Habit Start Date Stop Date Quantity Comments Source Alcohol intake 2021-01-16 2021-01-16 0 /d University of 00:00:00 00:00:00 [facility] Cigarettes smoked 2021-01-05 2021-01-05 Univers ity of current (pack per 00:00:00 00:00:00 [facility] ) - Reported Branch Tobacco use and 2021-01-05 2021-01-05 Never used Universit y of exposure 00:00:00 00:00:00 [facility] Tobacco Comment 2021-01-05 2021-01-05 Pt smokes 1 pack Uni versity of 00:00:00 00:00:00 a day total of 20 [facility] cigarettes daily [place] History of tobacco 2005-02-25 Cigarette Smoker University of use 00:00:00 [facility] Sex [birth year] At [birth year] Universit y of 00:00:00 00:00:00 [facility] Smoking Status Start Date Stop Date Source Current every day smoker 2021-01-05 00:00:00 Uni versity of [facility] Medications Ordered Filled Start Stop Current Ordering Indication Dosage Frequency Signature Comments Components Source Medication Medication Date Date Medication? Clinician (SIG) Name Name hydrocortis Yes [id number] TAKE 1 AND Univers one 10 mg 6-10 1/2 ity of tablet 00:00: TABLETS BY [place] [address] MOUTH Medical EVERY Branch MORNING AND 1 TABLET AT 2:00 PM topiramate Yes [id number] 25mg Take 1 Univers 25 mg 6-10 tablet by ity of tablet 00:00: mouth [place] daily. Medical Branch PHENTERMINE Yes [id number] TAKE 1 Univers 37.5 mg 6-07 CAPSULE BY ity of capsule 00:00: MOUTH [place] [address] EVERY DAY Medical IN THE Branch MORNING PHENTERMINE Yes [id number] TAKE 1 Univers 37.5 mg 6-07 CAPSULE BY ity of capsule 00:00: MOUTH [place] [address] EVERY DAY Medical IN THE Branch MORNING LEVOTHYROXI Yes [id number] TAKE 1 Univers NE 175 mcg 3-23 TABLET ity of tablet 00:00: DAILY [place] Saturday Medical THROUGH Branch SATURDAY, AND 1/2 TABLET ON SATURDAY. LEVOTHYROXI Yes [id number] TAKE 1 Univers NE 175 mcg 3-23 TABLET ity of tablet 00:00: DAILY [place] Saturday [facility] THROUGH [place] SATURDAY, AND 1/2 TABLET ON SATURDAY. LEVOTHYROXI 0 Yes [id number] TAKE 1 Univers NE 175 mcg 3-23 TABLET ity of tablet 00:00: DAILY [place] Saturday [facility] THROUGH [place] SATURDAY, AND 1/2 TABLET ON SATURDAY. LEVOTHYROXI 2021-0 Yes [id number] TAKE 1 Univers NE 175 mcg 3-23 TABLET ity of tablet 00:00: DAILY [place] Saturday [facility] THROUGH [place] SATURDAY, AND 1/2 TABLET ON SATURDAY. hydrocortis 0 Yes [id number] TAKE 1 AND Univers one 10 mg 1-12 1/2 ity of tablet 00:00: TABLETS BY [place] [address] MOUTH [facility] MORNING AND 1 TABLET AT 2:00 PM hydrocortis 0 Yes [id number] TAKE 1 AND Univers one 10 mg 1-12 1/2 ity of tablet 00:00: TABLETS BY [address] MORNING AND 1 TABLET AT 2:00 PM hydrocortis 0 Yes [id number] TAKE 1 AND Univers one 10 mg 1-12 1/2 ity of tablet 00:00: TABLETS BY [place] [address] MOUTH [facility] MORNING AND 1 TABLET AT 2:00 PM hydrocortis 2021- No [id number] TAKE 1 AND Univers one 10 mg 1-12 06-10 1/2 ity of tablet 00:00: 00:00 [facility]00 [facility] MORNING AND 1 TABLET AT 2:00 PM norethindro 2020-02 Yes [id number] 1{tbl} Take 1 Univers ne 0.35 mg 1-22 tablet by ity of tablet 00:00: mouth [place] 00 daily. [facility] Branch norethindro 2020-02 Yes [id number] 1{tbl} Take 1 Univers ne 0.35 mg 1-22 tablet by ity of tablet 00:00: mouth [place] 00 daily. [facility] Branch norethindro 2020-02 Yes [id number] 1{tbl} Take 1 Univers ne 0.35 mg 1-22 tablet by ity of tablet 00:00: mouth [place] 00 daily. [facility] norethindro 2020-02 Yes [id number] 1{tbl} Take 1 Univers ne 0.35 mg 1-22 tablet by ity of tablet 00:00: mouth [place] 00 daily. Medical Branch topiramate 2020-02 Yes [id number] 25mg Take 1 Univers 25 mg 1-19 tablet by ity of tablet 00:00: mouth [place] 00 daily. Medical Branch phentermine 2020-02 Yes [id number] 37.5mg Take 1 Univers 37.5 mg 1-19 capsule by ity of capsule 00:00: mouth [place] 00 every Medical morning. Branch topiramate 2020-02 Yes [id number] 25mg Take 1 Univers 25 mg 1-19 tablet by ity of tablet 00:00: mouth [place] 00 daily. Medical Branch phentermine 2020-02 Yes [id number] 37.5mg Take 1 Univers 37.5 mg 1-19 capsule by ity of capsule 00:00: mouth [place] 00 every Medical morning. [place] topiramate 2020-02 Yes [id number] 25mg Take 1 Univers 25 mg 1-19 tablet by ity of tablet 00:00: mouth [place] 00 daily. [facility] topiramate 2020-02- No [id number] 25mg Take 1 Univers 25 mg 1-19 06-10 tablet by ity of tablet 00:00: 00:00 mouth [place] 00 :00 daily. [facility] Branch phentermine 2020-02- No [id number] 37.5mg Take 1 Univers 37.5 mg 1-19 06-07 capsule by ity o f capsule 00:00: 00:00 mouth [place] 00 :00 every Medical morning. Branch hydrocortis 2020-02 Yes [id number] 100mg 2 mL by Univers one sod 1-12 Intramuscu ity of succ 00:00: lar route [place] (SOLU-AMY 00 as needed Med ical F) 100 mg (for when Branc h injection patient is unconsciou s). hydrocortis 2020-02 Yes [id number] 100mg 2 mL by Univers one sod 1-12 Intramuscu ity of succ 00:00: lar route [place] (SOLU-AMY 00 as needed Med ical F) 100 mg (for when Branc h injection patient is unconsciou s). hydrocortis 2020-02 Yes [id number] 100mg 2 mL by Univers one sod 1-12 Intramuscu ity of succ 00:00: lar route [place] (SOLU-AMY 00 as needed Med ical F) 100 mg (for when Branc h injection patient is unconsciou s). hydrocortis 2020-02 Yes [id number] 100mg 2 mL by Univers one sod 1-12 Intramuscu ity of succ 00:00: lar route [place] (SOLU-AMY 00 as needed Med ical F) 100 mg (for when Branc h injection patient is unconsciou s). CITALOPRAM 2020-02 Yes Take by Uni vers HYDROBROMID 1-11 mouth ity of E (CELEXA 13:09: daily. [place] ORAL) 42 Medical Branch OXCARBAZEPI 2020-02 Yes Take by Un oskar NE 1-11 mouth 2 ity of (TRILEPTAL 13:09: (two) [place] ORAL) 42 times Medical daily. Branch FENTanyl 25 2020-02 Yes 1{patch Apply 1 Univers mcg/hr 1-11 } Patch to ity of patch 13:09: skin every [place] [id number] 72 Medical ([facility] Branch wo) hours. rOPINIRole 2020-02 Yes 1mg Take 1 mg Un oskar 1 mg tablet 1-11 by mouth ity of 13:09: at [place] [address] bedtime. Medical Branch CITALOPRAM 2020-02 Yes Take by Uni vers HYDROBROMID 1-11 mouth ity of E (CELEXA 13:09: daily. [place] ORAL) 42 Medical Branch OXCARBAZEPI 2020-02 Yes Take by Un oskar NE 1-11 mouth 2 ity of (TRILEPTAL 13:09: (two) [place] ORAL) 42 times Medical daily. Branch FENTanyl 25 2020-02 Yes 1{patch Apply 1 Univers mcg/hr 1-11 } Patch to ity of patch 13:09: skin every [place] 42 72 Medical ([facility] Branch wo) hours. rOPINIRole 2020-02 Yes 1mg Take 1 mg Un oskar 1 mg tablet 1-11 by mouth ity of 13:09: at [place] [address] bedtime. Medical Branch CITALOPRAM 2020-02 Yes Take by Uni vers HYDROBROMID 1-11 mouth ity of E (CELEXA 13:09: daily. [place] ORAL) 42 Medical Branch OXCARBAZEPI 2020-02 Yes Take by Un oskar NE 1-11 mouth 2 ity of (TRILEPTAL 13:09: (two) [place] ORAL) 42 times Medical daily. Branch FENTanyl 25 2020-02 Yes 1{patch Apply 1 Univers mcg/hr 1-11 } Patch to ity of patch 13:09: skin every [place] 42 72 Medical (se[facility]-t Branch wo) hours. rOPINIRole 2020-02 Yes 1mg Take 1 mg Un oskar 1 mg tablet 1-11 by mouth ity of 13:09: at [place] 42 bedtime. Medical Branch CITALOPRAM 2020-02 Yes Take by Uni vers HYDROBROMID 1-11 mouth ity of E (CELEXA 13:09: daily. [place] ORAL) 42 Medical Branch OXCARBAZEPI 2020-02 Yes Take by Un oskar NE 1-11 mouth 2 ity of (TRILEPTAL 13:09: (two) [place] ORAL) 42 times Medical daily. Branch FENTanyl 25 2020-02 Yes 1{patch Apply 1 Univers mcg/hr 1-11 } Patch to ity of patch 13:09: skin every [place] 42 72 Medical [facility] wo) hours. rOPINIRole 2020-02 Yes 1mg Take 1 mg Un oskar 1 mg tablet 1-11 by mouth ity of 13:09: at [place] [address] bedtime. Medical Branch Movantik Movantik 2018-0 2019- No Cinda 1 tablet Common 04-22 [place] in the Spirit 00:00: 00:00 morning - CHI 00 :00 [facility] Pantoprazol Pantoprazol 2017-0 Yes Cinda 1 tablet Common e Sodium e Sodium 10-25 [place] Sp que 00:00: - CHI 00 [facility] Chlordiazep Chlordiazep 2017-0 2019- No Cinda 1 capsule Common oxide-Clidi oxide-Clidi 10-25 [place] Spirit nium nium 00:00: 00:00 - [facility]I 00 :00 [facility] ondansetron 2016-02 Yes Univer s 4 mg 1-02 ity of disintegrat 00:00: [place] ing tablet Medical Branch ondansetron 2016-02 Yes Univer s 4 mg 1-02 ity of disintegrat 00:00: [place] ing tablet Medical Branch ondansetron 2016-02 Yes Univer s 4 mg 1-02 ity of disintegrat 00:00: [place] ing tablet 00 Medical Branch ondansetron 2016-02 Yes Univer s 4 mg 02-26 ity of disintegrat 00:00: [place] ing tablet 00 Medical Branch LYRICA 100 2015-02 Yes Univers mg capsule - ity of 00:00: [place] 00 Medical Branch LYRICA 100 2015-02 Yes Univers mg capsule - ity of 00:00: [place] Medical [facility] LYRICA 100 2015-02 Yes Univers mg capsule - ity of 00:00: [place] Medical [facility] LYRICA 100 2015-02 Yes Univers mg capsule - ity of 00:00: [place] 00 Medical Branch SAVELLA 50 2015-02 Yes 25mg Take 25 mg U nivers mg tablet -03 by mouth 2 ity of 00:00: (two) [place] 00 times Medical daily. Branch [facility] 50 2015-02 Yes 25mg Take 25 mg U nivers mg tablet -03 by mouth 2 ity of 00:00: (two) [place] 00 times Medical daily. Branch [facility] 50 2015-02 Yes 25mg Take 25 mg U nivers mg tablet -03 by mouth 2 ity of 00:00: (two) [place] 00 times Medical daily. [place] [facility] 2015-02 Yes 25mg Take 25 mg U nivers mg tablet -03 by mouth 2 ity of 00:00: (two) [place] 00 times Medical daily. Branch Neurontin Neurontin Yes Cinda 1 capsule Common Millender [facility] Amitriptyli Amitriptyli Yes Cinda 1 tablet Common ne HCl ne HCl Millender [facility] Topamax Topamax Yes Cinda 1 tablet Comm on Millender [facility] Zofran Zofran Yes Cinda 1 tablet Common Millender [facility] Ultram Ultram Yes Cinda 1 tablet Common Mill[place] as needed Spiri t [facility] Lyrica Lyrica Yes Cinda 1 capsule Commo n Millender [facility] Robaxin Robaxin Yes Cinda 1.5 Common [place] tablets [facility] Trazodone Trazodone Yes Cinda 1 tablet Common HCl HCl Mill[place] at bedtime Spir it as needed [facility] Protonix Protonix Yes Cinda 1 tablet Co mmon Millender [facility] - CHI [facility] Savella Savella Yes Cinda 1 tablet Comm on [place] Spirit - [facility] Synthroid Synthroid Yes Cinda 1 tablet Common [place] on an Spirit empty - CHI stomach in [facility] Imitrex Imitrex Yes Cinda 1 tablet Comm on [place] as needed Spiri t - CHI [facility] Citalopram Citalopram Yes Cinda 1 tablet Common Hydrobromid Hydrobromid [place] Spirit e e - [facility]I [facility] Clonazepam Clonazepam Yes Cinda 1 tablet Common Millender [facility] Cyclobenzap Cyclobenzap Yes Cinda 1 tablet Common rine HCl rine HCl [place] as needed [facility] - [facility] Furosemide Furosemide Yes Cinda 1 tablet Common [place] as needed Spiri t for leg - CHI swelling [facility] Effexor XR Effexor XR Yes Cinda 1 capsule Common [place] with food Spiri t - CHI [facility] Immunizations Ordered Filled Immunization Date Status Comments [facility] e Immunization Name Name Influenza Virus 2021-01-05 Completed Universit y of Vaccine Quad IM, 00:00:00 [facility] dical Preserv and ABX Branch Free 6 MO-64 YRS Pneumococcal 13 2021-01-05 Completed Universit y of Conjugate, PCV13 00:00:00 [facility] dical (Prevnar 13) Branch [facility] 2021-01-05 Completed University 00:00:00 [facility] Influenza Virus 2021-01-05 Completed Universit y of Vaccine Quad IM, 00:00:00 [facility] dical Preserv and ABX Branch Free 6 MO-64 YRS Pneumococcal 13 2021-01-05 Completed Universit y of Conjugate, PCV13 00:00:00 [facility] dical (Prevnar 13) Branch TDAP 2021-01-05 Completed University of 00:00:00 [facility] Influenza Virus 2021-01-05 Completed Universit y of Vaccine Quad IM, 00:00:00 [facility] dical Preserv and ABX Branch Free 6 MO-64 YRS Pneumococcal 13 2021-01-05 Completed Universit y of Conjugate, PCV13 00:00:00 [facility] dical (Prevnar 13) Branch [facility] 2021-01-05 Completed University of 00:00:00 [facility] Influenza Virus 2021-01-05 Completed Universit y of Vaccine Quad IM, 00:00:00 [facility] dical Preserv and ABX Branch Free 6 MO-64 YRS Pneumococcal 13 2021-01-05 Completed Universit y of Conjugate, PCV13 00:00:00 [facility] dical (Prevnar 13) Branch TDAP 2021-01-05 Completed University of 00:00:00 [facility] SARS-COV-2 COVID-19 2020-06-25 Completed Unive rsity of PFIZER VACCINE 00:00:00 [facility] SARS-COV-2 COVID-19 2020-06-25 Completed Unive rsity of PFIZER VACCINE 00:00:00 [facility] SARS-COV-2 COVID-19 2020-06-25 Completed Unive rsity of PFIZER VACCINE 00:00:00 [facility] SARS-COV-2 COVID-19 2020-06-25 Completed Unive rsity of PFIZER VACCINE 00:00:00 [facility] SARS-COV-2 COVID-19 2020-06-04 Completed Unive rsity of PFIZER VACCINE 00:00:00 [facility] SARS-COV-2 COVID-19 2020-06-04 Completed Unive rsity of PFIZER VACCINE 00:00:00 [facility] SARS-COV-2 COVID-19 2020-06-04 Completed Unive rsity of PFIZER VACCINE 00:00:00 [facility] SARS-COV-2 COVID-19 2020-06-04 Completed Unive rsity of PFIZER VACCINE 00:00:00 [facility] Flucelvax - single Flucelvax - single 2019-04-09 Completed Common Spirit - dose syringe dose syringe 00:00:00 [facility] Influenza Virus 2018-01-14 Completed Universit y of Vaccine Quad .5 mL 00:00:00 [facility] IM 6+ MO Branch Influenza Virus 2018-01-14 Completed Universit y of Vaccine 00:00:00 [facility] Influenza Virus 2018-01-14 Completed Universit y of Vaccine Quad .5 mL 00:00:00 [facility] IM 6+ MO Branch Influenza Virus 2018-01-14 Completed Universit y of Vaccine 00:00:00 [facility] Influenza Virus 2018-01-14 Completed Universit y of Vaccine Quad .5 mL 00:00:00 [facility] 6+ MO Branch Influenza Virus 2018-01-14 Completed Universit y of Vaccine 00:00:00 [facility] Influenza Virus 2018-01-14 Completed Universit y of Vaccine Quad .5 mL 00:00:00 [facility] 6+ MO [place] Influenza Virus 2018-01-14 Completed Universit y of Vaccine 00:00:00 [facility] Procedures This patient has no known procedures. Encounters Start End Encounter Admission Attending Care Care Encounter Source Date/Time Date/Time Type Type Clinicians Facility Department ID 2021-03-22 Outpatient Janak [facility] [id number] Common 12:08:59 Cinda [id number] [facility] 2021-03-22 Outpatient Janak [facility] [id number] Common 12:08:27 Cinda [id number] [facility] 2021-03-22 Outpatient Janak [facility] [id number] Common 11:07:35 Cinda [id number] [facility] 2021-09-18 2021-09-18 Outpatient R LANIE LOPEZ [facility] [id number] Univers 13:00:00 13:00:00 LANIE LOPEZ [id number] [facility] 2021-08-03 2021-08-03 [email or web address] [id number] Univers 00:00:00 00:00:00 [facility] [id number] it y [facility] [id number] Flip as HESHAM?BLEA [phone] [place] anshul [address] MEDICAL OFFICE BUILDING 2021-08-02 2021-08-02 Outpatient Smooth FELIX [facility] [id number] Univers 16:00:00 16:00:00 FIONA [id number] [facility] 2021-08-02 2021-08-02 Outpatient R VICENTE [facility] [id number] Univers 16:00:00 16:00:00 FIONA [facility] 2021-07-31 2021-07-31 [email or web address] [id number] Univers 00:00:00 00:00:00 Chema Bernstein HEALTH [id number] it y of [place] [id number] Flip as HESHAM?BLEA [id number] [address] 2021-07-21 2021-07-21 [email or web address] [id number] Univers 00:00:00 00:00:00 Chema Bernstein HEALTH [id number] it y of [place] [id number] Flip as HESHAM?BLEA [id number] [address] 2021-07-20 2021-07-20 [facility] [id number] Univers 00:00:00 00:00:00 Nancy MULTISPEC [id number] [place]y [place] [id number] [place] [id number] [facility] AND [address] DIABETES [facility] 2019-12-28 2019-12-28 [email or web address] [id number] 00:00:00 00:00:00 Chema H [place] [id number] [place] [id number] Professio [id number] [address] 2019-07-24 2019-07-24 Telemedici [email or web address] [id number] 08:17:11 11:47:51 ne Visit Chema Amandeep [place] [id number] [place] [id number] Professio [id number] [address] 2019-07-10 2019-07-10 Refmegan Felix [facility] [id number] 00:00:00 00:00:00 Fiona GAVIRIAPEC [id number] [place] [id number] CENTER [id number] [place] [id number] [facility]ES CLINIC 2019-05-20 2019-05-20 Telememanuel Felix [facility] [id number] 08:37:33 13:26:38 ne Visit Fiona [place] [id number] [place] [id number] Professio [phone] [facility] 2019-05-20 2019-05-20 Telephone Felix, [facility] [id number] 00:00:00 00:00:00 Fiona [place] [id number] [place] [id number] Professio [id number] psychiatric hospital [facility] 2019-05-17 2019-05-17 Refill Felix, [facility] [id number] 00:00:00 00:00:00 Fiona [place] [id number] [place] [id number] [facility] [phone] [facility] 2019-05-17 2019-05-17 Refill Andrea, [facility] [id number] 00:00:00 00:00:00 Nicole [place] [id number] Hsieh [place] [id number] [facility] [phone] psychiatric hospital [facility] 2019-05-15 2019-05-15 Refill Felix, [facility] [id number] 00:00:00 00:00:00 Fiona [place] [id number] [place] [id number] Professio [phone] [address] 2019-04-28 2019-04-28 Refill Andrea, [facility] [id number] 00:00:00 00:00:00 Nicole [facility] [id number] [facility] [id number] CENTER [phone] [facility] 2019-04-24 2019-04-24 Refill Felix, [facility] [id number] 00:00:00 00:00:00 Fiona [place] [id number] [place] [id number] [facility] [phone] psychiatric hospital [facility] 2019-04-12 2019-04-12 [facility] [id number] Common 21:42:00 21:42:00 t [facility] [address] [facility] 2019-04-09 2019-04-09 [facility] [id number] Common 10:45:00 10:45:00 t [facility] [address] [facility] 2019-04-03 2019-04-03 Refill Vicente, [facility] [id number] 00:00:00 00:00:00 Leathaong [place] [id number] [place] [id number] [facility] [phone] psychiatric hospital [facility] 2018-10-30 2018-10-30 Telephone [facility] [id number] 00:00:00 00:00:00 Fiona [place] [id number] [place] [id number] [facility] [phone] psychiatric hospital [facility] 2018-09-19 2018-09-19 Refill Zully [facility] [id number] 00:00:00 00:00:00 Nicole [place] [id number] Hsie[place] [id number] [facility] [phone] psychiatric hospital [facility] 2018-08-06 2018-08-06 [facility] [id number] Common 11:09:00 11:09:00 t [facility] [address] [facility] 2018-04-23 2018-04-23 [facility] [id number] Common 01:12:00 01:12:00 t [facility] [address] [facility] 2018-04-22 2018-04-22 [facility] [id number] Common 16:00:00 16:00:00 t [facility] [address] [facility] 2017-10-29 2017-10-29 [facility] [id number] Common 09:06:00 09:06:00 t [facility] [address] [facility] 2017-10-25 2017-10-25 Outpatient Jose Granados [id number] Common 23:08:00 23:08:00 [facility] it [facility] 2017-10-25 2017-10-25 Outpatient Jose Granados [id number] Common 15:00:00 15:00:00 [facility] Results This patient has no known results.
[2021-08-19] MEDS ORDERED: ONDANSETRON 4 MG/2 ML VIAL ONE (22:52)
[2021-08-19] MEDS ORDERED: NA CHLORIDE 0.9% 1,000 ML ONE (22:52)
[2021-08-19 23:09] LABS: Absolute Lymphocytes (CBC) 0.7 K/uL (0.7-4.9); Hematocrit 33.9 % (36.0-45.0); Lymphocytes % 10.8 % (15.3-44.8); MPV 7.2 fL (7.6-11.3); RBC Red Blood Cell Count 4.08 M/uL (3.86-4.86)
[2021-08-19 23:30] LABS: Albumin 3.3 g/dL (3.4-5.0); Bilirubin Total 0.3 mg/dL (0.2-1.0); Protein, Total 6.8 g/dL (6.4-8.2)
[2021-08-20 00:15] LABS: Urine Blood Negative (Negative); Urine Glucose Negative (Negative); Urine Protein Negative (Negative); Urine Specific Gravity >=1.030 (1.005-1.030); Urine pH 6.5 (5.0-7.0)
[2021-08-20] MEDS ORDERED: MORPHINE 4 MG/ML SYR ONE (00:27)
--- NOTE | 2021-08-20 06:50 | ER ---
Nurse's Notes [facility] Name: Lavinia Jarrett Age: 40 yrs Sex: Female : 1980 Arrival Date: 08/19/2021 Time: 22:18 Bed 15 Private MD: Diagnosis: Influenza;Other ovarian cysts Presentation: 08/19 22:32 Chief complaint: Patient states: she had Aston's and it is "acting up" she has been bb having abdominal pain since last week but it is worsening denies vomiting or diarrhea but it nauseous. Coronavirus screen: At this time, the client does not indicate any symptoms associated with coronavirus-19. Ebola Screen: No symptoms or risks identified at this time. Initial Sepsis Screen: Does the patient meet any 2 criteria? No. Patient's initial sepsis screen is negative. Does the patient have a suspected source of infection? No. Patient's initial sepsis screen is negative. Risk Assessment: Do you want to hurt yourself or someone else? Patient reports no desire to harm self or others. Onset of symptoms was August 19, 2021. 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 bb Historical: - Allergies: 22:34 Latex, Natural Rubber; bb - Home Meds: 22:34 baclofen 10 mg Oral tab 1 1-2 tab BID [Active]; butrans 20 mcg/hr patch every week bb [Active]; Chlordiazepoxide Oral 1 cap 3 times per day [Active]; Cholestyramine Light Oral [Active]; clonazepam 2 mg Oral tab 1 tab 2 times per day [Active]; dicyclomine 20 mg Oral tab 1 tab 3 times per day [Active]; docusate sodium 100 mg Oral cap [Active]; hydrocortisone 10 mg Oral tab 1.5 tab 1 tab at 2pm [Active]; Lyrica 100 mg Oral 1 cap 3 times per day [Active]; methocarbamol 500 mg Oral tab 1 tabs BID [Active]; oxycarbazepine 150 mg BID [Active]; pantoprazole 40 mg Oral TbEC 1 tab once daily [Active]; Prednisone Oral [Active]; promethazine 25 mg Oral tab as needed [Active]; Savella 50 mg Oral tab 1 tab 2 times per day [Active]; solu-cortef [Active]; SUMATRIPTAN 50 mg [Active]; Synthroid 150 mcg Oral tab [Active]; tizanidine 4 mg Oral tab 1 tab BID [Active]; topiramate 25 mg Oral CSpX 1 cap once daily [Active]; tramadol 50 mg Oral tab as needed [Active]; trazodone 50 mg Oral tab 1 tab once a day [Active]; venlafaxine 150 mg Oral cp24 1 cap once daily [Active]; Vitamin D Oral daily [Active]; Zofran (as hydrochloride) 4 mg Oral tab 2 tabs every 8 hours [Active]; Fentanyl Patch Topical [Active]; - PMHx: 22:34 Humboldt's disease; Bipolar disorder; Chronic pain; Depression; Fibromyalgia; bb Hypothyroidism; ibs; Migraines; Schizophrenia; - PSHx: 22:34 hernia repair; rt fallopian removed; 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 - Social history:: Smoking status: Patient reports the use of cigarette tobacco products. Screenin:37 Abuse screen: Denies threats or abuse. Nutritional screening: No deficits noted. bb Tuberculosis screening: No symptoms or risk factors identified. Fall Risk None identified. Assessment: 22:37 General: Appears in no apparent distress. obese, Behavior is calm, cooperative. Pain: bb Complains of pain in abdomen Pain currently is 10 out of 10 on a pain scale. Neuro: Level of Consciousness is awake, alert, obeys commands, Oriented to person, place, time, situation. Cardiovascular: Heart tones S1 S2 present Capillary refill < 3 seconds Patient's skin is warm and dry. Respiratory: Respiratory effort is even, unlabored. GI: Abdomen is obese, Bowel sounds present X 4 quads. Abd is soft X 4 quads Abdomen is tender to palpation X 4 quads. Derm: Skin is pink, warm \\T\\ dry. Musculoskeletal: Circulation, motion, and sensation intact. 23:46 Reassessment: Patient is alert, oriented x 3, equal unlabored respirations, skin bb warm/dry/pink. pt resting quietly awaiting diagnostic results. 08/20 00:46 Reassessment: Patient is alert, oriented x 3, equal unlabored respirations, skin bb warm/dry/pink. pt back from CT. IV site intact, patent no erythema or edema noted. 01:35 Reassessment: pt resting quietly, eyes closed, resp unlabored, states pain has bb decreased a little, friend at bedside awaiting CT results. 02:39 Reassessment: Dr Lopez at bedside for discussion of findings and recommendations. bb 04:15 Reassessment: No changes from previously documented assessment. Patient is alert, ll3 oriented x 3, equal unlabored respirations, skin warm/dry/pink. 05:26 Reassessment: Patient appears in no apparent distress at this time. Patient is alert, as6 oriented x 3, equal unlabored respirations, skin warm/dry/pink. Vital Signs: 08/19 22:32 BP 103 / 80; Pulse 73; Resp 16 S; Temp 97.9(O); Pulse Ox 98% on R/A; Weight 111.13 kg bb (R); Height 5 ft. 5 in. (165.10 cm) (R); Pain 10/10; 23:49 BP 133 / 89; Pulse 62; Resp 16 S; Pulse Ox 99% on R/A; bb 08/20 00:46 BP 137 / 75; Pulse 67; Resp 16 S; Pulse Ox 100% on R/A; bb 01:37 BP 115 / 59; Pulse 68; Resp 16 S; Pulse Ox 98% on R/A; bb 02:40 BP 131 / 72; Pulse 66; Resp 16 S; Pulse Ox 100% on R/A; bb 04:15 BP 118 / 67; Pulse 62; Resp 16; Pulse Ox 97% on R/A; ll3 05:25 BP 109 / 96; Pulse 67; Resp 18 S; Pulse Ox 97% on R/A; as6 08/19 22:32 Body Mass Index 40.77 (111.13 kg, 165.10 cm) bb ED Course: 08/19 22:18 Patient arrived in ED. bp1 22:27 Richard Lopez MD is Attending Physician. mh7 22:32 Karley Martines, KESHAV is Primary Nurse. bb 22:34 Triage completed. bb 22:34 Arm band placed on Patient placed in an exam room, on a stretcher, on pulse oximetry. bb Family accompanied patient. 22:37 Patient has correct armband on for positive identification. Bed in low position. Call bb light in reach. Side rails up X 1. Pulse ox on. NIBP on. Warm blanket given. 22:50 Initial lab(s) drawn, by me, sent to lab. COVID swab sent to lab. Flu and/or RSV swab bb sent to lab. 22:55 Inserted saline lock: 20 gauge in right antecubital area, using aseptic technique. bb Blood collected. 08/20 00:32 CT Abd/Pelvis - IV Contrast Only In Process Unspecified. EDMS 03:18 Report given to Rachel Arteaga RN. bb 04:12 US Pelvis Complete In Process Unspecified. EDMS 06:49 Camille Toribio MD is Referral Physician. [facility] 06:57 No provider procedures requiring assistance completed. IV discontinued, intact, as6 bleeding controlled, No redness/swelling at site. Pressure dressing applied. Administered Medications: 08/19 22:55 Drug: NS 0.9% 1000 ml Route: IV; Rate: 1 bolus; Site: right antecubital; bb 08/20 00:45 Follow up: IV Status: Completed infusion; IV Intake: 950ml bb 08/19 22:56 Drug: Zofran (Ondansetron) 4 mg Route: IVP; Site: right antecubital; bb 23:29 Follow up: Response: No adverse reaction bb 23:02 CANCELLED (Physician Discretion): morphine 4 mg IVP once over 4 mins bb 08/20 00:45 Drug: morphine 4 mg Route: IVP; Infused Over: 4 mins; Site: right antecubital; bb 01:37 Follow up: Response: Pain is decreased bb Medication: 06:57 VIS not applicable for this client. as6 Intake: 00:45 IV: 950ml; Total: 950ml. bb Outcome: 06:49 Discharge ordered by . [facility] 06:57 Discharged to home ambulatory, with family. as6 06:57 Condition: stable 06:57 Discharge instructions given to patient, Instructed on discharge instructions, follow up and referral plans. medication usage, Demonstrated understanding of instructions, follow-up care, medications, Prescriptions given X 2. 06:57 Patient left the ED. as6 Signatures: Dispatcher [employer] EDMS Karley Martines RN RN bb Nika Silverman Maurice, MD MD 7 Troy Garner RN RN as6 Rachel Isbell, RN RN ll3 Corrections: (The following items were deleted from the chart) 01:38 01:35 Reassessment: pt resting quietly, eyes closed, resp unlabored, friend at bedside bb awaiting CT results bb
--- NOTE | 2021-08-20 06:50 | EDPHYS ---
Physician Documentation [facility] Name: Lavinia Jarrett Age: 40 yrs Sex: Female : 1980 Arrival Date: 08/19/2021 Time: 22:18 Bed 15 Private MD: ED Physician Richard Lopez HPI: 08/19 22:43 This 40 yrs old Female presents to ER via Ambulatory with complaints of mh7 Abdominal Pain, Weakness. 22:43 The patient presents with abdominal pain right lower quadrant. mh7 22:43 Onset: The symptoms/episode began/occurred 1 week(s) ago. The symptoms radiate to the mh7 right flank. Associated signs and symptoms: Pertinent positives: nausea, body aches, generalized weakness/fatigue, Pertinent negatives: blood in stools, chest pain, constipation, diarrhea, dysuria, fever, headache, hematuria, palpitations, shortness of breath, vaginal discharge, vomiting, vomiting blood. The symptoms are described as intermittent, vague, waxing/waning. Modifying factors: The symptoms are alleviated by nothing, the symptoms are aggravated by nothing. Severity of pain: At its worst the pain was moderate 4 day(s) ago, in the emergency department the pain has improved moderately. 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 bb Historical: - Allergies: 22:34 Latex, Natural Rubber; bb - Home Meds: 22:34 baclofen 10 mg Oral tab 1 1-2 tab BID [Active]; butrans 20 mcg/hr patch every week bb [Active]; Chlordiazepoxide Oral 1 cap 3 times per day [Active]; Cholestyramine Light Oral [Active]; clonazepam 2 mg Oral tab 1 tab 2 times per day [Active]; dicyclomine 20 mg Oral tab 1 tab 3 times per day [Active]; docusate sodium 100 mg Oral cap [Active]; hydrocortisone 10 mg Oral tab 1.5 tab 1 tab at 2pm [Active]; Lyrica 100 mg Oral 1 cap 3 times per day [Active]; methocarbamol 500 mg Oral tab 1 tabs BID [Active]; oxycarbazepine 150 mg BID [Active]; pantoprazole 40 mg Oral TbEC 1 tab once daily [Active]; Prednisone Oral [Active]; promethazine 25 mg Oral tab as needed [Active]; Savella 50 mg Oral tab 1 tab 2 times per day [Active]; solu-cortef [Active]; SUMATRIPTAN 50 mg [Active]; Synthroid 150 mcg Oral tab [Active]; tizanidine 4 mg Oral tab 1 tab BID [Active]; topiramate 25 mg Oral CSpX 1 cap once daily [Active]; tramadol 50 mg Oral tab as needed [Active]; trazodone 50 mg Oral tab 1 tab once a day [Active]; venlafaxine 150 mg Oral cp24 1 cap once daily [Active]; Vitamin D Oral daily [Active]; Zofran (as hydrochloride) 4 mg Oral tab 2 tabs every 8 hours [Active]; Fentanyl Patch Topical [Active]; - PMHx: 22:34 Aston's disease; Bipolar disorder; Chronic pain; Depression; Fibromyalgia; bb Hypothyroidism; ibs; Migraines; Schizophrenia; - PSHx: 22:34 hernia repair; rt fallopian removed; 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 - Social history:: Smoking status: Patient reports the use of cigarette tobacco products. ROS: 22:43 Constitutional: Negative for fever, chills, and weight loss, Eyes: Negative for injury, mh7 pain, redness, and discharge, ENT: Negative for injury, pain, and discharge, Neck: Negative for injury, pain, and swelling, Cardiovascular: Negative for chest pain, palpitations, and edema, Respiratory: Negative for shortness of breath, cough, wheezing, and pleuritic chest pain, : Negative for injury, bleeding, discharge, and swelling, MS/Extremity: Negative for injury and deformity, Skin: Negative for injury, rash, and discoloration, Psych: Negative for depression, anxiety, suicide ideation, homicidal ideation, and hallucinations, Allergy/Immunology: Negative for hives, rash, and allergies, Endocrine: Negative for neck swelling, polydipsia, polyuria, polyphagia, and marked weight changes, Hematologic/Lymphatic: Negative for swollen nodes, abnormal bleeding, and unusual bruising. Exam: 22:43 Head/Face: Normocephalic, atraumatic. Eyes: Pupils equal round and reactive to light, mh7 extra-ocular motions intact. Lids and lashes normal. Conjunctiva and sclera are non-icteric and not injected. Cornea within normal limits. Periorbital areas with no swelling, redness, or edema. Neck: Trachea midline, no thyromegaly or masses palpated, and no cervical lymphadenopathy. Supple, full range of motion without nuchal rigidity, or vertebral point tenderness. No Meningismus. Chest/axilla: Normal chest wall appearance and motion. Nontender with no deformity. No lesions are appreciated. Cardiovascular: Regular rate and rhythm with a normal S1 and S2. No gallops, murmurs, or rubs. Normal PMI, no JVD. No pulse deficits. Respiratory: Lungs have equal breath sounds bilaterally, clear to auscultation and percussion. No rales, rhonchi or wheezes noted. No increased work of breathing, no retractions or nasal flaring. Skin: Warm, dry with normal turgor. Normal color with no rashes, no lesions, and no evidence of cellulitis. MS/ Extremity: Pulses equal, no cyanosis. Neurovascular intact. Full, normal range of motion. Neuro: Awake and alert, GCS 15, oriented to person, place, time, and situation. Cranial nerves II-XII grossly intact. Motor strength 5/5 in all extremities. Sensory grossly intact. Cerebellar exam normal. Normal gait. Psych: Awake, alert, with orientation to person, place and time. Behavior, mood, and affect are within normal limits. 22:43 Constitutional: The patient appears in no acute distress, alert, awake, uncomfortable. 22:43 Abdomen/GI: Inspection: obese Bowel sounds: normal, in all quadrants, Palpation: moderate abdominal tenderness, in the right lower quadrant, mass, is not appreciated, rebound tenderness, is not appreciated, voluntary guarding, is not appreciated, involuntary guarding, is not appreciated, no appreciated organomegaly, Indicators: McBurney's point is not tender, Jenkins's sign is negative, Rovsing's sign is negative, Obturator sign is negative, Psoas sign is negative, Liver: no appreciated palpable abnormalities, Hernia: not appreciated. 22:43 Back: normal spinal alignment noted, CVA tenderness, that is mild, is noted on the right, vertebral tenderness, is not appreciated, muscle spasm, is not present. Vital Signs: 22:32 BP 103 / 80; Pulse 73; Resp 16 S; Temp 97.9(O); Pulse Ox 98% on R/A; Weight 111.13 kg bb (R); Height 5 ft. 5 in. (165.10 cm) (R); Pain 10/10; 23:49 BP 133 / 89; Pulse 62; Resp 16 S; Pulse Ox 99% on R/A; bb 08/20 00:46 BP 137 / 75; Pulse 67; Resp 16 S; Pulse Ox 100% on R/A; bb 01:37 BP 115 / 59; Pulse 68; Resp 16 S; Pulse Ox 98% on R/A; bb 02:40 BP 131 / 72; Pulse 66; Resp 16 S; Pulse Ox 100% on R/A; bb 04:15 BP 118 / 67; Pulse 62; Resp 16; Pulse Ox 97% on R/A; ll3 05:25 BP 109 / 96; Pulse 67; Resp 18 S; Pulse Ox 97% on R/A; as6 08/19 22:32 Body Mass Index 40.77 (111.13 kg, 165.10 cm) MDM: 06:46 Differential diagnosis: appendicitis, bowel obstruction, diverticulitis, gastritis, 7 gastroesophageal reflux disease, Irritable bowel syndrome, non-specific abd pain, Peptic Ulcer Disease, Ureterolithiasis, urinary tract infection. Data reviewed: vital signs, nurses notes, lab test result(s), CBC, electrolytes, Flu: positive urinalysis, EKG, radiologic studies, CT scan, ultrasound. Data interpreted: Pulse oximetry: on room air is 97 %. Interpretation: normal. Counseling: I had a detailed discussion with the patient and/or guardian regarding: the historical points, exam findings, and any diagnostic results supporting the discharge/admit diagnosis, lab results, radiology results, the need for outpatient follow up, to return to the emergency department if symptoms worsen or persist or if there are any questions or concerns that arise at home. Response to treatment: the patient's symptoms have markedly improved after treatment. 06:49 Patient medically screened. [facility] 08/19 22:41 Order name: CBC with Diff; Complete Time: 23:22 [facility] 08/19 22:41 Order name: CMP; Complete Time: 00:19 [facility] 08/19 22:41 Order name: Lipase; Complete Time: 00:19 [facility] 08/19 22:41 Order name: COVID-19 SARS RT PCR (Document "Date of Onset" if Symptomatic); Complete [facility] Time: 00:19 08/19 22:41 Order name: Influenza Screen (a \\T\\ B); Complete Time: 01:28 [facility] 08/19 22:41 Order name: CT Abd/Pelvis - IV Contrast Only [facility] 08/20 00:15 Order name: Urine Dipstick-Ancillary; Complete Time: 00:19 [facility] 08/20 02:52 Order name: US Pelvis Complete [facility] 08/19 22:41 Order name: IV Saline Lock; Complete Time: 23:03 [facility] 08/19 22:41 Order name: Labs collected and sent; Complete Time: 23:03 [facility] 08/19 22:41 Order name: Urine Dipstick-Ancillary (obtain specimen); Complete Time: 00:56 [facility] 08/19 22:41 Order name: Urine Test (obtain specimen); Complete Time: 00:56 [facility] 08/19 22:41 Order name: EKG; Complete Time: 22:43 [facility] 08/19 22:41 Order name: EKG - Nurse/Tech; Complete Time: 23:03 [facility] Administered Medications: 08/19 22:55 Drug: NS 0.9% 1000 ml Route: IV; Rate: 1 bolus; Site: right antecubital; bb 08/20 00:45 Follow up: IV Status: Completed infusion; IV Intake: 950ml 08/19 22:56 Drug: Zofran (Ondansetron) 4 mg Route: IVP; Site: right antecubital; bb 23:29 Follow up: Response: No adverse reaction bb 23:02 CANCELLED (Physician Discretion): morphine 4 mg IVP once over 4 mins 08/20 00:45 Drug: morphine 4 mg Route: IVP; Infused Over: 4 mins; Site: right antecubital; bb 01:37 Follow up: Response: Pain is decreased bb Disposition Summary: 08/20/21 06:49 Discharge Ordered Location: Home [facility] Problem: new [facility] Symptoms: have improved [facility] Condition: Stable [facility] Diagnosis - Influenza [facility] - Other ovarian cysts [facility] Followup: [facility] - With: Private Physician - When: 1 - 2 days - Reason: Worsening of condition, Recheck today's complaints, Continuance of care, Re-evaluation by your physician Followup: [facility] - With: Camille Toribio MD - When: 2 - 3 days - Reason: Worsening of condition, Recheck today's complaints Discharge Instructions: - Discharge Summary Sheet [facility] - Ovarian Cyst, [id number] [facility] - Influenza, Adult, [id number] [facility] Forms: - Medication Reconciliation Form [facility] - Thank You Letter [facility] - Antibiotic Education [facility] - Prescription Opioid Use [facility] Prescriptions: - Ibuprofen 800 mg Oral Tablet - take 1 tablet by ORAL route every 8 hours As needed take with food; 15 tablet; 7 Refills: 0, Product Selection Permitted - Zofran 4 mg Oral Tablet - take 1 tablet by ORAL route every 8 hours As needed; 10 tablet; Refills: 0, 7 Product Selection Permitted Signatures: Dispatcher [employer] Karley Morales RN RN bb Holmes, Maurice, MD MD [facility] Corrections: (The following items were deleted from the chart) 08/19 23:02 22:41 morphine 4 mg IVP once over 4 mins ordered. [facility] chacha
[2021-08-20 07:34] VITALS: TEMP 97.9
[2021-08-20 07:42] VITALS: O2SAT 97
[2021-08-20 07:49] VITALS: BP 109/96
--- NOTE | 2021-08-20 19:16 | EKG ---
Test Date: 2021-08-19 Test Time: 22:51:43 Conductor/Brakeman: TREY MEASUREMENT RESULTS: Intervals: Rate: 68 MD: 166 QRSD: 84 QT: 426 QTc: 452 [place]: P: 48 MD: 166 QRS: 42 T: 60 INTERPRETIVE STATEMENTS: Normal sinus rhythm Normal ECG Compared to ECG 10/12/2017 00:29:43 No significant changes Electronically Signed On 08-20-21 19:15:17 CDT by Kannan Vo
--- NOTE | 2021-08-21 13:44 | RAD REPORT ---
EXAM DESCRIPTION: CT - Abdomen Pelvis W Contrast - 08/20/2021 6:59 am CLINICAL HISTORY: 40 years, Female, Abdominal pain, acute COMPARISON: 10/15/2019 TECHNIQUE: Contrast-enhanced images of the abdomen and pelvis were performed utilizing 5 mm slice th ickness at 5 mm interval reconstruction from the lung bases to the ischial tuberosities after the adm inistration of IV contrast. In addition multiplanar reformats in the coronal and sagittal plane were obtained and reviewed. This exam was performed according to our departmental dose-optimization protocol, which includes auto mated exposure control, adjustment of the mA and/or kV according to patient size and/or use of iterat harvey reconstruction technique. FINDINGS: The lung bases demonstrate to be clear. The liver, pancreas, spleen and adrenal glands demonstrate to be unremarkable, no focal lesions are n oted. Surgical clips within the gallbladder fossa correspond to previous cholecystectomy. Small calci fication inferior edge aspect of the liver. The kidneys demonstrate normal uptake of contrast media. No evidence for nephrolithiasis and/or hydro nephrosis. Grossly the unopacified stomach, small bowel and large bowel demonstrate to be within normal limits. There is no evidence for bowel dilatation/or free air. The appendix is normal. The left site colo n is unremarkable. The urinary bladder demonstrate to be unremarkable. The uterus demonstrate to be within normal limi ts. There is a right adnexal cystic lesion measuring 5.7 x 3.3 cm on image 71. The aorta demonstrat e to be normal. There is no retroperitoneal lymphadenopathy. There is no evidence for ascites. The rest of the soft tissue and bony structures are within normal limits. IMPRESSION: 5.7 cm right adnexal simple-appearing cyst. Recommend follow-up pelvic US in 3-6 months. Status post cholecystectomy. Electronically signed by: Mike Patel MD 08/20/2021 1:00 AM CDT Due to temporary technical issues with the PACS/Fluency reporting system, reports are being signed by the in house radiologist without review as a courtesy to ensure prompt reporting. The interpreting r adiologist is fully responsible for the content of the report.
--- NOTE | 2021-08-21 13:47 | RAD REPORT ---
EXAM DESCRIPTION: US - Pelvis Complete - 08/20/2021 4:11 am CLINICAL HISTORY: 40 years Female Right Ovarian cyst, LMP: Not provided TECHNIQUE: Ultrasound imaging of the pelvis was performed transabdominally on 08/20/2021 at 3: 48 AM. COMPARISON: CT abdomen and pelvis performed on 08/20/2021 at 12: 29 AM FINDINGS: The uterus is normal in size, shape and echogenicity and measures 8.5 x 3.2 x 4.1 cm. Th e endometrial complex measures 0.8 cm in thickness. There is no endometrial fluid. The right ovary measures 3.9 x 5.4 x 3.6 cm. The right ovary contains either a septated cyst or 2 [address] mall simple appearing cysts measuring approximately 2.9 x 2.6 cm and 3.1 x 2.5 cm respectively.. Dopp ler imaging demonstrates normal spectral and color Doppler flow. The left ovary measures 3.8 x 2.1 x 3.1 cm. The left ovary contains 2 small simple appearing cysts measuring approximately 2.8 x 2.3 cm and 1.4 x 1.2 cm respectively.. Doppler imaging demonstrates n ormal spectral waveforms and color Doppler flow. There is no free fluid in the pelvis. IMPRESSION: 1. Small simple appearing bilateral ovarian cysts. The largest cyst diameter measures approximately 3.1 cm. No follow-up imaging is recommended. Reference: Radiology 2019 Nov;293(2):359-3 71 2. Normal sonographic evaluation of the uterus. 3. No sonographic evidence to suggest ovarian torsion. 4. No free fluid in the pelvis. Electronically signed by: Jessica Rodriguez DO 08/20/2021 6:26 AM CDT Due to temporary technical issues with the PACS/Fluency reporting system, reports are being signed by the in house radiologist without review as a courtesy to ensure prompt reporting. The interpreting r adiologist is fully responsible for the content of the report.
== END 2021-08-20 06:57 | disposition home or self-care (01) ==
LOC: ER 22:16
DX: J10.1 Influenza due to other identified influenza virus with other respiratory manifestations (principal); N83.291 Other ovarian cyst, right side; R10.31 Right lower quadrant pain; R53.1 Weakness; E27.1 Primary adrenocortical insufficiency; Z91.040 Latex allergy status; Z20.822 Contact with and (suspected) exposure to COVID-19
CPT/HCPCS: 96361; 93005; 85025; 36415; 81003; 83690; 80053; 87804 ×2; 74177; 76856; 96375; 96374; 99284; U0003; Q9967; J7030; J2405

== ENCOUNTER 2022-04-07 21:40 | Emergency (ER) | payer OTHER ==
--- OUTSIDE RECORDS SUMMARY | 2022-04-07 21:55 | XMS REPORT | Continuity of Care Document ---
:1980 Author Organization [facility] t Address [address] [place] [address] Care Team Providers Name Role Phone FAYE NAPOLES Primary Care Physician Unavailable Cinda Briceno Attending Clinician Unavailable LANIE LOPEZ Attending Clinician Unavailable LANIE LOPEZ Attending Clinician Unavailable Lab, Ang - Db Attending Clinician Unavailable ARIES LEIGH Attending Clinician Unavailable FAYE NAPOLES Attending Clinician Unavailable Faye Rothman Attending Clinician Chema Estrada MD Attending Clinician DEBRA IRVIN Attending Clinician Unavailable KIZZY MACKEY Attending Clinician Unavailable KIZZY MACKEY Attending Clinician Unavailable Nancy Gutierrez Attending Clinician Debra Irvin MD Attending Clinician FIONA ZHANG Attending Clinician Unavailable JOSE BOWEN Attending Clinician Unavailable Doctor Unassigned, Bug Tussle Attending Clinician Unavailable Polita, Charli Lab Main Attending Clinician Unavailable Jose Bowen MD Attending Clinician Aries Leigh PA-C Attending Clinician NANCY NEWMAN Attending Clinician Unavailable CHEMA ESTRADA Attending Clinician Unavailable Maribell Uribe Attending Clinician Senia Esparza DO Attending Clinician Fiona Zhang MD Attending Clinician Zully VASQUEZ, Nicole Hsieh Attending Clinician Unavailable Payers Payer Name Policy Type Policy Number Effective Date Expiration Date Migel berumen [facility] [id number] 2016 00:00:00 PLUS Problems Condition Condition Condition Status Onset Resolution Last Treating Co mments Source Name Details Category Date Date Treatment Clinician Date 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 U saúl warts in warts in 0-02 ity of female female 00:00: [place] 00 Medical Branch 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.] adrenal 2-16 ity of insufficie insufficie 00:[place] n[place] 00 Medical Branch Chronic Chronic Disease Active 2015-02 Univers fatigue fatigue 2-16 ity of 00:00: [place] 00 Medical Branch Morbid Morbid Disease Active 2015-02 Univers obesity obesity 2-04 it[place] of with body with body [place] index [place] index 00 Me dical of of Branch 40.0-49.9 40.0-49.9 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 U nivers neurologic neurologic 0-12 it y of al symptom al symptom [place] disorder disorder 00 Medica l with mixed with mixed Br anch symptoms symptoms Low serum Low serum Disease Active Uni vers cortisol cortisol 9-06 ity of level level 00:00: [place] [facility] Postablati Postablati Disease Active U nivers ve ve 7-11 ity of hypothyroi hypothyroi [place] dism dism Medical [place] Weight Weight Disease Active Univers gain gain 7-11 ity of 00:00: [place] [facility] Disorder Disorder Disease Active Overview: Un oskar of thyroid of thyroid 8 Formattin ity of 00:00: g of this note Medical might be Branch different from the original. 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 Media Technician Utility Migraine Migraine Problem Active Commo n without without Spirit status status - [facility] migrainosu migrainosu St s, not s, not [facility]ract[facility] Hi dical e, e, Center unspecifie unspecifie d migraine d migraine type type Obstructiv Obstructiv Problem Active C ommon e sleep e sleep Spirit apnea apnea - [facility] Gallstone Gallstone Problem Active Com mon 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 Insomnia, Insomnia, Problem Active Com mon unspecifie unspecifie Sp que d type d type - [facility] Bipolar Bipolar Problem Active Common disorder disorder [facility] Hypothyroi Hypothyroi Problem Active C ommon dism, dism, Spirit unspecifie unspecifie - [facility] d type d type [facility] Depression Depression Problem Active C ommon with with Spirit anxiety anxiety - [facility] Foot pain Foot pain Problem Active Com mon [facility] CPAP CPAP Problem Active Common (continuou (continuou Sp que s positive s positive - [facility] airway airway St pressure) pressure) Luke s dependence dependence Me dical Center Diverticul Diverticul Problem Active C ommon osis of osis of Spirit intestine intestine [...] mon bowel bowel Spirit syndrome syndrome - [facility] with with St constipati constipati [facility]ot [facility]es [facility] Gastroesop Gastroesop Problem Active C ommon hageal hageal Spirit reflux reflux - [facility] disease, disease, St esophagiti esophagiti Margot kes s presence s presence Me dical not not Center specified specified Allergies, Adverse Reactions, Alerts Allergy Allergy Status Severity Reaction(s) Onset Inactive Treating Comm ents Source Name Type Date Date Clinician LATEX DRUG Active High ITCHING 2015-02 Univers INGREDI 0-25 ity of 00:00: [place] 00 [facility] Latex Propensi Active Itching 2015-02 Univers ty to 0-25 ity of adverse 00:00: [place] reaction 00 Medical s to Branch drug Social History Social Habit Start Date Stop Date Quantity Comments Source Exposure to 2022-02-18 2022-02-28 Not sure [facility] SARS-CoV-2 (event) 00:00:00 11:41:00 [facility] Alcohol intake 2021-08-25 2021-08-25 0 /d University of 00:00:00 00:00:00 [facility] Cigarettes smoked 2021-01-05 2021-01-05 Univers ity of current (pack per 00:00:00 00:00:00 [facility] sherin) - Reported Branch Tobacco use and 2021-01-05 2021-01-05 Smokeless tobacco Un iversity of exposure 00:00:00 00:00:00 non-user [facility] Tobacco Comment 2021-01-05 2021-01-05 Pt smokes 1 pack Uni versity of 00:00:00 00:00:00 a day total of 20 [facility] cigarettes daily Branch History of tobacco 2005-02-25 Cigarette Smoker University of use 00:00:00 [facility] Sex [birth year] At [birth year] Universit y of 00:00:00 00:00:00 [facility] Smoking Status Start Date Stop Date Source Smokes tobacco daily 2021-01-05 00:00:00 [facility]ations Ordered Filled Start Stop Current Ordering Indication Dosage Frequency Signature Comments Components Source Medication Medication Date Date Medication? Clinician (SIG) Name Name phentermine Yes [id number] 37.5mg Take 1 Univers 37.5 mg 1-04 capsule by ity of capsule 00:00: mouth [place] 00 every Medical morning. [place] topiramate Yes [id number] 25mg Take 1 Univers 25 mg 1-04 tablet by ity of tablet 00:00: mouth in [place] 00 the Medical morning. Branch levothyroxi Yes [id number] 175ug Take 1 Univers ne 175 mcg 1-04 tablet by ity of tablet 00:00: mouth [place] 00 every Medical morning. Branch TAKE 1 TABLET DAILY SATURDAY THROUGH SATURDAY, AND 1/2 TABLET ON SATURDAY phentermine Yes [id number] 37.5mg Take 1 Univers 37.5 mg 1-04 capsule by ity of capsule 00:00: mouth [place] every Medical morning. Branch topiramate Yes [id number] 25mg Take 1 Univers 25 mg 1-04 tablet by ity of tablet 00:00: mouth in [place] 00 the Medical morning. Branch levothyroxi Yes [id number] 175ug Take 1 Univers ne 175 mcg 1-04 tablet by ity of tablet 00:00: mouth [place] every Medical morning. Branch TAKE 1 TABLET DAILY SATURDAY THROUGH SATURDAY, AND 1/2 TABLET ON SATURDAY phentermine Yes [id number] 37.5mg Take 1 Univers 37.5 mg 1-04 capsule by ity of capsule 00:00: mouth [place] 00 every Medical morning. Branch topiramate Yes [id number] 25mg Take 1 Univers 25 mg 1-04 tablet by ity of tablet 00:00: mouth in [place] 00 the Medical morning. Branch levothyroxi Yes [id number] 175ug Take 1 Univers ne 175 mcg 1-04 tablet by ity of tablet 00:00: mouth [place] 00 every Medical morning. Branch TAKE 1 TABLET DAILY SATURDAY THROUGH SATURDAY, AND 1/2 TABLET ON SATURDAY phentermine Yes [id number] 37.5mg Take 1 Univers 37.5 mg 1-04 capsule by ity of capsule 00:00: mouth [place] 00 every Medical morning. Branch topiramate Yes [id number] 25mg Take 1 Univers 25 mg 1-04 tablet by ity of tablet 00:00: mouth in [place] 00 the Medical morning. Branch levothyroxi Yes [id number] 175ug Take 1 Univers ne 175 mcg 1-04 tablet by ity of tablet 00:00: mouth [place] 00 every Medical morning. Branch TAKE 1 TABLET DAILY SATURDAY THROUGH SATURDAY, AND 1/2 TABLET ON SATURDAY phentermine 2021-02 Yes [id number] 37.5mg Take 1 Univers 37.5 mg 0-26 capsule by ity of capsule 00:00: mouth [place] 00 every Medical morning. Branch phentermine 2021-02- No [id number] 37.5mg Take 1 Univers 37.5 mg 0-26 01-04 capsule by ity o f capsule 00:00: 00:00 mouth [place] 00 :00 every Medical morning. Branch phentermine 2021-02- No [id number] 37.5mg Take 1 Univers 37.5 mg 0-26 01-04 capsule by ity o f capsule 00:00: 00:00 mouth [place] 00 :00 every Medical morning. Branch semaglutide 2021-02 Yes [id number] .25mg inject Univers , weight 0-03 0.25 mg ity of loss, 00:00: under the [place] (WEGOVY) 00 skin Medical 0.25 mg/0.5 weekly. Branc h mL PnIj SC injection topiramate 2021-02 Yes [id number] 25mg Take 1 Univers 25 mg 0-03 tablet by ity of tablet 00:00: mouth in [place] 00 the Medical morning. Branch semaglutide 2021-02 Yes [id number] .25mg inject Univers , weight 0-03 0.25 mg ity of loss, 00:00: under the [place] (WEGOVY) 00 skin Medical 0.25 mg/0.5 weekly. Branc h mL PnIj SC injection topiramate 2021-02 Yes [id number] 25mg Take 1 Univers 25 mg 0-03 tablet by ity of tablet 00:00: mouth in [place] 00 the Medical morning. Branch semaglutide 2021-02 Yes [id number] .25mg inject Univers , weight 0-03 0.25 mg ity of loss, 00:00: under the [place] (WEGOVY) 00 skin Medical 0.25 mg/0.5 weekly. Branc h mL PnIj SC injection topiramate 2021-02 Yes [id number] 25mg Take 1 Univers 25 mg 0-03 tablet by ity of tablet 00:00: mouth in [place] 00 the Medical morning. Branch semaglutide 2021-02 Yes [id number] .25mg inject Univers , weight 0-03 0.25 mg ity of loss, 00:00: under the [place] (WEGOV) 00 skin Medical 0.25 mg/0.5 weekly. Branc h mL PnIj SC injection topiramate 2021-02 Yes [id number] 25mg Take 1 Univers 25 mg 0-03 tablet by ity of tablet 00:00: mouth in [place] 00 the Medical morning. Branch semaglutide 2021-02 Yes [id number] .25mg inject Univers , weight 0-03 0.25 mg ity of loss, 00:00: under the [place] (WEV) 00 skin Medical 0.25 mg/0.5 weekly. Branc h mL PnIj SC injection topiramate 2021-02 Yes [id number] 25mg Take 1 Univers 25 mg 0-03 tablet by ity of tablet 00:00: mouth in [place] 00 the Medical morning. Branch topiramate 2021-02 Yes [id number] 25mg Take 1 Univers 25 mg 0-03 tablet by ity of tablet 00:00: mouth in [place] 00 the Medical morning. Branch topiramate 2021-02- No [id number] 25mg Take 1 Univers 25 mg 0-03 01-04 tablet by ity of tablet 00:00: 00:00 mouth in [place] 00 :00 the Medical morning. Branch topiramate 2021-02- No [id number] 25mg Take 1 Univers 25 mg 0-03 01-04 tablet by ity of tablet 00:00: 00:00 mouth in [place] 00 :00 the Medical morning. Branch semaglutide 2021-02- No [id number] .25mg inject Univers , weight 0-03 10- 0.25 mg ity of loss, 00:00: 00:00 under the [place] ([facility] 00 :00 skin Medical 0.25 mg/0.5 weekly. Branc h mL PnIj SC injection topiramate Yes [id number] TAKE 1 Univers 25 mg 9-30 TABLET BY ity of tablet 00:00: MOUTH [place] 00 EVERY DAY [facility] topiramate 2021- No [id number] TAKE 1 Univers 25 mg 9-30 10-03 TABLET BY ity of tablet 00:00: 00:00 MOUTH [place] 00 :00 EVERY DAY [facility] topiramate 2021- No [id number] TAKE 1 Univers 25 mg 9-30 10-03 TABLET BY ity of tablet 00:00: 00:00 MOUTH [place] 00 :00 EVERY DAY [facility] PHENTERMINE Yes [id number] TAKE 1 Univers 37.5 mg 8-28 CAPSULE BY ity of capsule 00:00: MOUTH [place] 00 EVERY DAY Medical IN THE [place] MORNING PHENTERMINE Yes [id number] TAKE 1 Univers 37.5 mg 8-28 CAPSULE BY ity of capsule 00:00: MOUTH [place] 00 EVERY DAY Medical IN THE [place] MORNING PHENTERMINE 2021- No [id number] TAKE 1 Univers 37.5 mg 8-28 10-03 CAPSULE BY ity o f capsule 00:00: 00:00 MOUTH [place] 00 :00 EVERY DAY Medical IN THE [place] MORNING PHENTERMINE 2021- No [id number] TAKE 1 Univers 37.5 mg 8-28 10-03 CAPSULE BY ity o f capsule 00:00: 00:00 MOUTH [place] 00 :00 EVERY DAY Medical IN [facility] MORNING levothyroxi Yes [id number] TAKE 1 Univers ne 175 mcg 7-30 TABLET ity of tablet 00:00: DAILY [place] Saturday THROUGH [place] SATURDAY, AND 1/2 TABLET ON SATURDAY. levothyroxi Yes [id number] TAKE 1 Univers ne 175 mcg 7-30 TABLET ity of tablet 00:00: DAILY [place] Saturday THROUGH [place] SATURDAY, AND 1/2 TABLET ON SATURDAY. levothyroxi Yes [id number] TAKE 1 Univers ne 175 mcg 7-30 TABLET ity of tablet 00:00: DAILY [place] 00 Saturday, AND 1/2 TABLET ON SATURDAY. levothyroxi Yes [id number] TAKE 1 Univers ne 175 mcg 7-30 TABLET ity of tablet 00:00: DAILY [place] 00 Saturday, AND 1/2 TABLET ON SATURDAY. levothyroxi Yes [id number] TAKE 1 Univers ne 175 mcg 7-30 TABLET ity of tablet 00:00: DAILY [place] 00 Saturday, AND 1/2 TABLET ON SATURDAY. levothyroxi Yes [id number] TAKE 1 Univers ne 175 mcg 7-30 TABLET ity of tablet 00:00: DAILY [place] 00 Saturday, AND 1/2 TABLET ON SATURDAY. levothyroxi Yes [id number] TAKE 1 Univers ne 175 mcg 7-30 TABLET ity of tablet 00:00: DAILY [place] 00 Saturday, AND 1/2 TABLET ON SATURDAY. levothyroxi Yes [id number] TAKE 1 Univers ne 175 mcg 7-30 TABLET ity of tablet 00:00: DAILY [place] 00 Saturday, AND 1/2 TABLET ON SATURDAY. levothyroxi Yes [id number] TAKE 1 Univers ne 175 mcg 7-30 TABLET ity of tablet 00:00: DAILY [place] 00 Saturday, AND 1/2 TABLET ON SATURDAY. levothyroxi 2022- No [id number] TAKE 1 Univers ne 175 mcg 7-30 - TABLET ity of tablet 00:00: 00:00 DAILY [place] 00 :00 Saturday, AND 1/2 TABLET ON SATURDAY. levothyroxi 2022- No [id number] TAKE 1 Univers ne 175 mcg 7-30 - TABLET ity of tablet 00:00: 00:00 DAILY [place] 00 :00 Saturday, AND 1/2 TABLET ON SATURDAY. hydrocortis Yes [id number] 100mg 2 mL by Univers one sod 6-29 Intramuscu ity of succ 00:00: lar route [place] (SOLU-AMY 00 as needed Med ical F) 100 mg (for when Branc h injection patient is unconsciou s). hydrocortis 0 Yes [id number] 10mg Take 1 Univers one 10 mg 6-29 tablet by ity o f tablet 00:00: mouth 2 (two) Medical times Branch daily. hydrocortis 0 Yes [id number] 100mg 2 mL by Univers one sod 6-29 Intramuscu ity of succ 00:00: lar route [place] (SOLU-AMY 00 as needed Med ical F) 100 mg (for when Branc h injection patient is unconsciou s). hydrocortis Yes [id number] 10mg Take 1 Univers one 10 mg 6-29 tablet by ity o f tablet 00:00: mouth 2 (two) Medical times Branch daily. hydrocortis Yes [id number] 100mg 2 mL by Univers one sod 6-29 Intramuscu ity of succ 00:00: lar route [place] (SOLU-AMY 00 as needed Med ical F) 100 mg (for when Branc h injection patient is unconsciou s). hydrocortis 0 Yes [id number] 10mg Take 1 Univers one 10 mg 6-29 tablet by ity o f tablet 00:00: mouth 2 (two) Medical times Branch daily. hydrocortis 0 Yes [id number] 100mg 2 mL by Univers one sod 6-29 Intramuscu ity of succ 00:00: lar route [place] (SOLU-AMY 00 as needed Med ical F) 100 mg (for when Branc h injection patient is unconsciou s). hydrocortis 0 Yes [id number] 10mg Take 1 Univers one 10 mg 6-29 tablet by ity o f tablet 00:00: mouth 2 (two) Medical times Branch daily. hydrocortis 0 Yes [id number] 100mg 2 mL by Univers one sod 6-29 Intramuscu ity of succ 00:00: lar route [place] (SOLU-AMY 00 as needed Med ical F) 100 mg (for when Branc h injection patient is unconsciou s). hydrocortis 0 Yes [id number] 10mg Take 1 Univers one 10 mg 6-29 tablet by ity o f tablet 00:00: mouth 2 (two) Medical times Branch daily. hydrocortis 0 Yes [id number] 100mg 2 mL by Univers one sod 6-29 Intramuscu ity of succ 00:00: lar route [place] (SOLU-AMY 00 as needed Med ical F) 100 mg (for when Branc h injection patient is unconsciou s). hydrocortis 0 Yes [id number] 10mg Take 1 Univers one 10 mg 6-29 tablet by ity o f tablet 00:00: mouth 2 (two) Medical times Branch daily. hydrocortis 0 Yes [id number] 100mg 2 mL by Univers one sod 6-29 Intramuscu ity of succ 00:00: lar route [place] (SOLU-AMY 00 as needed Med ical F) 100 mg (for when Branc h injection patient is unconsciou s). hydrocortis 0 Yes [id number] 10mg Take 1 Univers one 10 mg 6-29 tablet by ity o f tablet 00:00: mouth (two) Medical times Branch daily. hydrocortis 0 Yes [id number] 100mg 2 mL by Univers one sod 6-29 Intramuscu ity of succ 00:00: lar route [place] (SOLU-AMY 00 as needed Med ical F) 100 mg (for when Branc h injection patient is unconsciou s). hydrocortis 0 Yes [id number] 10mg Take 1 Univers one 10 mg 6-29 tablet by ity o f tablet 00:00: mouth 2 (two) Medical times Branch daily. hydrocortis 0 Yes [id number] 100mg 2 mL by Univers one sod 6-29 Intramuscu ity of succ 00:00: lar route [place] (SOLU-AMY 00 as needed Med ical F) 100 mg (for when Branc h injection patient is unconsciou s). hydrocortis 0 Yes [id number] 10mg Take 1 Univers one 10 mg 6-29 tablet by ity o f tablet 00:00: mouth 2 (two) Medical times Branch daily. hydrocortis 2021-0 Yes [id number] 100mg 2 mL by Univers one sod 6-29 Intramuscu ity of succ 00:00: lar route [place] (SOLU-AMY 00 as needed Med ical F) 100 mg (for when Branc h injection patient is unconsciou s). hydrocortis 2021-0 Yes [id number] 10mg Take 1 Univers one 10 mg 6-29 tablet by ity o f tablet 00:00: mouth 2 (two) Medical times Branch daily. hydrocortis 2021-0 Yes [id number] 100mg 2 mL by Univers one sod 6-29 Intramuscu ity of succ 00:00: lar route [place] (SOLU-AMY 00 as needed Med ical F) 100 mg (for when Branc h injection patient is unconsciou s). hydrocortis 2021-0 Yes [id number] 10mg Take 1 Univers one 10 mg 6-29 tablet by ity o f tablet 00:00: mouth (two) Medical times Branch daily. hydrocortis 2021-0 Yes [id number] 100mg 2 mL by Univers one sod 6-29 Intramuscu ity of succ 00:00: lar route [place] (SOLU-AMY 00 as needed Med ical F) 100 mg (for when Branc h injection patient is unconsciou s). hydrocortis 2021-0 Yes [id number] 10mg Take 1 Univers one 10 mg 6-29 tablet by ity o f tablet 00:00: mouth (two) Medical times Branch daily. hydrocortis 2021-0 Yes [id number] 100mg 2 mL by Univers one sod 6-29 Intramuscu ity of succ 00:00: lar route [place] (SOLU-AMY 00 as needed Med ical F) 100 mg (for when Branc h injection patient is unconsciou s). hydrocortis 2021-0 Yes [id number] 10mg Take 1 Univers one 10 mg 6-29 tablet by ity o f tablet 00:00: mouth 2 (two) Medical times Branch daily. hydrocortis 2021-0 Yes [id number] 100mg 2 mL by Univers one sod 6-29 Intramuscu ity of succ 00:00: lar route [place] (SOLU-AMY 00 as needed Med ical F) 100 mg (for when Branc h injection patient is unconsciou s). hydrocortis 2021-0 Yes [id number] 10mg Take 1 Univers one 10 mg 6-29 tablet by ity o f tablet 00:00: mouth 2 00 (two) Medical times Branch daily. hydrocortis 2021-0 Yes [id number] 100mg 2 mL by Univers one sod 6-29 Intramuscu ity of succ 00:00: lar route [place] (SOLU-AMY 00 as needed Med ical F) 100 mg (for when Branc h injection patient is unconsciou s). hydrocortis 2021-0 Yes [id number] 10mg Take 1 Univers one 10 mg 6-29 tablet by ity o f tablet 00:00: mouth 2 [place] 00 (two) Medical times Branch daily. hydrocortis 2021-0 Yes [id number] 100mg 2 mL by Univers one sod 6-29 Intramuscu ity of succ 00:00: lar route [place] (SOLU-AMY 00 as needed Med ical F) 100 mg (for when Branc h injection patient is unconsciou s). hydrocortis 2021-0 Yes [id number] 10mg Take 1 Univers one 10 mg 6-29 tablet by ity o f tablet 00:00: mouth 2 [place] 00 (two) Medical times Branch daily. topiramate 2021-0 Yes [id number] 25mg Take 1 Univers 25 mg 6-10 tablet by ity of tablet 00:00: mouth [place] 00 daily. Medical Branch topiramate 2021-0 Yes [id number] 25mg Take 1 Univers 25 mg 6-10 tablet by ity of tablet 00:00: mouth [place] 00 daily. Medical Branch topiramate 2021-0 Yes [id number] 25mg Take 1 Univers 25 mg 6-10 tablet by ity of tablet 00:00: mouth [place] 00 daily. Medical Branch topiramate 2021-0 2021- No [id number] 25mg Take 1 Univers 25 mg 6-10 09-30 tablet by ity of tablet 00:00: 00:00 mouth [place] 00 :00 daily. Medical Branch topiramate 2021-0 2021- No [id number] 25mg Take 1 Univers 25 mg 6-10 09-30 tablet by ity of tablet 00:00: 00:00 mouth [place] 00 :00 daily. [facility] topiramate 2021- No [id number] 25mg Take 1 Univers 25 mg 6-10 09-30 tablet by ity of tablet 00:00: 00:00 mouth [place] 00 :00 daily. [facility] PHENTERMINE Yes [id number] TAKE 1 Univers 37.5 mg 6-07 CAPSULE BY ity of capsule 00:00: MOUTH [place] 00 EVERY DAY Medical IN THE [place] MORNING PHENTERMINE Yes [id number] TAKE 1 Univers 37.5 mg 6-07 CAPSULE BY ity of capsule 00:00: MOUTH [place] 00 EVERY DAY Medical IN THE [facility] PHENTERMINE 2021- No [id number] TAKE 1 Univers 37.5 mg 6-07 08-28 CAPSULE BY ity o f capsule 00:00: 00:00 MOUTH [place] 00 :00 EVERY DAY Medical IN [facility] PHENTERMINE 2021- No [id number] TAKE 1 Univers 37.5 mg 6-07 08-28 CAPSULE BY ity o f capsule 00:00: 00:00 MOUTH [place] 00 :00 EVERY DAY Medical IN THE [facility] PHENTERMINE 2021- No [id number] TAKE 1 Univers 37.5 mg 6-07 08-28 CAPSULE BY ity o f capsule 00:00: 00:00 MOUTH [place] 00 :00 EVERY DAY Medical IN THE [facility] LEVOTHYROXI Yes [id number] TAKE 1 Univers NE 175 mcg 3-23 TABLET ity of tablet 00:00: DAILY [place] 00 SATURDAY [facility] THROUGH [place] SATURDAY, AND 1/2 TABLET ON SATURDAY. LEVOTHYROXI 2021- No [id number] TAKE 1 Univers NE 175 mcg 3-23 07-30 TABLET ity of tablet 00:00: 00:00 DAILY [place] 00 :00 SATURDAY [facility] THROUGH [place] SATURDAY, AND 1/2 TABLET ON SATURDAY. LEVOTHYROXI 2021- No [id number] TAKE 1 Univers NE 175 mcg 3-23 07-30 TABLET ity of tablet 00:00: 00:00 DAILY [place] 00 :00 SATURDAY [facility] THROUGH [place] SATURDAY, AND 1/2 TABLET ON SATURDAY. LEVOTHYROXI 2021- No [id number] TAKE 1 Univers NE 175 mcg 3-23 07-30 TABLET ity of tablet 00:00: 00:00 DAILY [place] 00 :00 SATURDAY Medical [facility] SATURDAY, AND 1/2 TABLET ON SATURDAY. [facility] 2020-02 Yes [id number] 1{tbl} Take 1 Univers ne 0.35 mg 1-22 tablet by ity of tablet 00:00: mouth [place] 00 daily. [facility] 2020-02 Yes [id number] 1{tbl} Take 1 Univers ne 0.35 mg 1-22 tablet by ity of tablet 00:00: mouth [place] 00 daily. [facility] 2020-02 Yes [id number] 1{tbl} Take 1 Univers ne 0.35 mg 1-22 tablet by ity of tablet 00:00: mouth [place] 00 daily. [facility] 2020-02 Yes [id number] 1{tbl} Take 1 Univers ne 0.35 mg 1-22 tablet by ity of tablet 00:00: mouth [place] 00 daily. [facility] 2020-02 Yes [id number] 1{tbl} Take 1 Univers ne 0.35 mg 1-22 tablet by ity of tablet 00:00: mouth [place] 00 daily. [facility] 2020-02 Yes [id number] 1{tbl} Take 1 Univers ne 0.35 mg 1-22 tablet by ity of tablet 00:00: mouth [place] 00 daily. [facility] 2020-02 Yes [id number] 1{tbl} Take 1 Univers ne 0.35 mg 1-22 tablet by ity of tablet 00:00: mouth [place] 00 daily. [facility] 2020-02 Yes [id number] 1{tbl} Take 1 Univers ne 0.35 mg 1-22 tablet by ity of tablet 00:00: mouth [place] 00 daily. [facility] 2020-02 Yes [id number] 1{tbl} Take 1 Univers ne 0.35 mg 1-22 tablet by ity of tablet 00:00: mouth [place] 00 daily. [facility] 2020-02 Yes [id number] 1{tbl} Take 1 Univers ne 0.35 mg 1-22 tablet by ity of tablet 00:00: mouth [place] 00 daily. Medical Branch norethindro 2020-02 Yes [id number] 1{tbl} Take 1 [facility] ne 0.35 mg 1-22 tablet by ity of tablet 00:00: mouth [place] 00 daily. Medical Branch norethindro 2020-02 Yes [id number] 1{tbl} Take 1 [facility] ne 0.35 mg 1-22 tablet by ity of tablet 00:00: mouth [place] 00 daily. Medical Branch norethindro 2020-02 Yes [id number] 1{tbl} Take 1 [facility] ne 0.35 mg 1-22 tablet by ity of tablet 00:00: mouth [place] 00 daily. Medical Branch norethindro 2020-02 Yes [id number] 1{tbl} Take 1 [facility] ne 0.35 mg 1-22 tablet by ity of tablet 00:00: mouth [place] 00 daily. Medical Branch norethindro 2020-02 Yes [id number] 1{tbl} Take 1 [facility] ne 0.35 mg 1-22 tablet by ity of tablet 00:00: mouth [place] 00 daily. Medical Branch norethindro 2020-02 Yes [id number] 1{tbl} Take 1 [facility] ne 0.35 mg 1-22 tablet by ity of tablet 00:00: mouth [place] 00 daily. Medical Branch CITALOPRAM 2020-02 Yes Take by [facility] ers HYDROBROMID 1-11 mouth ity of E (CELEXA 13:09: daily. [place] ORAL) 42 Medical Branch OXCARBAZEPI 2020-02 Yes Take by Uni vers NE -11 mouth 2 ity of (TRILEPTAL 13:09: (two) [place] ORAL) 42 times Medical daily. Branch FENTanyl 25 2020-02 Yes 1{patch Apply 1 Univers mcg/hr 11 } Patch to ity of patch 13:09: skin every [place] 42 72 Medical (seventy-t Branch wo) hours. rOPINIRole 2020-02 Yes 1mg Take 1 mg Un oskar 1 mg tablet -11 by mouth ity of 13:09: at [place] 42 bedtime. Medical Branch CITALOPRAM 2020-02 Yes Take by [facility] ers HYDROBROMID 1-11 mouth ity of E (CELEXA 13:09: daily. [place] ORAL) 42 Medical Branch OXCARBAZEPI 2020-02 Yes Take by Uni vers NE 1-11 mouth 2 ity of (TRILEPTAL 13:09: (two) [place] ORAL) 42 times Medical daily. Branch FENTanyl 25 2020-02 Yes 1{patch Apply 1 [facility] mcg/hr 1-11 } Patch to ity of patch 13:09: skin every [place] [id number] 72 Medical (seventy-t Branch wo) hours. rOPINIRole 2020-02 Yes 1mg Take 1 mg Un oskar 1 mg tablet 1-11 by mouth ity of 13:09: at [place] [id number] bedtime. Medical Branch CITALOPRAM 2020-02 Yes Take by Univ ers HYDROBROMID 1-11 mouth ity of E (CELEXA 13:09: daily. [place] ORAL) 42 Medical Branch OXCARBAZEPI 2020-02 Yes Take by Uni vers NE 1-11 mouth 2 ity of (TRILEPTAL 13:09: (two) [place] ORAL) 42 times Medical daily. Branch FENTanyl 25 2020-02 Yes 1{patch Apply 1 [facility] mcg/hr 1-11 } Patch to ity of patch 13:09: skin every [place] [address] 72 [facility] rOPINIRole 2020-02 Yes 1mg Take 1 mg Un oskar 1 mg tablet 1-11 by mouth ity of 13:09: at [place] [address] bedtime. Medical Branch CITALOPRAM 2020-02 Yes Take by Univ ers HYDROBROMID 1-11 mouth ity of E (CELEXA 13:09: daily. [place] ORAL) 42 Medical Branch OXCARBAZEPI 2020-02 Yes Take by Uni vers NE 1-11 mouth 2 ity of (TRILEPTAL 13:09: (two) [place] ORAL) 42 times Medical daily. Branch FENTanyl 25 2020-02 Yes 1{patch Apply 1 Univers mcg/hr 1-11 } Patch to ity of patch 13:09: skin every [place] [address] 72 Medical (seventy-t Branch wo) hours. rOPINIRole 2020-02 Yes 1mg Take 1 mg Un oskar 1 mg tablet 1-11 by mouth ity of 13:09: at [place] [address] bedtime. Medical Branch CITALOPRAM 2020-02 Yes Take by Univ ers HYDROBROMID 1-11 mouth ity of E (CELEXA 13:09: daily. [place] ORAL) 42 Medical Branch OXCARBAZEPI 2020-02 Yes Take by Uni vers NE 1-11 mouth 2 ity of (TRILEPTAL 13:09: (two) [place] ORAL) 42 times Medical daily. Branch FENTanyl 25 2020-02 Yes 1{patch Apply 1 [facility] mcg/hr 1-11 } Patch to ity of patch 13:09: skin every [place] [address] 72 Medical (seventy-t Branch wo) hours. rOPINIRole 2020-02 Yes 1mg Take 1 mg Un oskar 1 mg tablet 1-11 by mouth ity of 13:09: at [place] [address] bedtime. Medical Branch CITALOPRAM 2020-02 Yes Take by Univ ers HYDROBROMID 1-11 mouth ity of E (CELEXA 13:09: daily. [place] ORAL) 42 Medical Branch OXCARBAZEPI 2020-02 Yes Take by Uni vers NE 1-11 mouth 2 ity of (TRILEPTAL 13:09: (two) [place] ORAL) 42 times Medical daily. Branch FENTanyl 25 2020-02 Yes 1{patch Apply 1 Univers mcg/hr 1-11 } Patch to ity of patch 13:09: skin every [place] [address] 72 [facility]. rOPINIRole 2020-02 Yes 1mg Take 1 mg Un oskar 1 mg tablet 1-11 by mouth ity of 13:09: at [place] [address] bedtime. Medical Branch CITALOPRAM 2020-02 Yes Take by Univ ers HYDROBROMID 1-11 mouth ity of E (CELEXA 13:09: daily. [place] ORAL) 42 Medical Branch OXCARBAZEPI 2020-02 Yes Take by Uni vers NE 1-11 mouth 2 ity of (TRILEPTAL 13:09: (two) [place] ORAL) 42 times Medical daily. Branch FENTanyl 25 2020-02 Yes 1{patch Apply 1 Univers mcg/hr 1-11 } Patch to ity of patch 13:09: skin every [place] [address] 72 Medical (seventy-t Branch wo) hours. rOPINIRole 2020-02 Yes 1mg Take 1 mg Un oskar 1 mg tablet 1-11 by mouth ity of 13:09: at [place] [address] bedtime. Medical Branch CITALOPRAM 2020-02 Yes Take by Univ ers HYDROBROMID 1-11 mouth ity of E (CELEXA 13:09: daily. [place] ORAL) 42 Medical Branch OXCARBAZEPI 2020-02 Yes Take by Uni vers NE 1-11 mouth 2 ity of (TRILEPTAL 13:09: (two) [place] ORAL) 42 times Medical daily. Branch FENTanyl 25 2020-02 Yes 1{patch Apply 1 Univers mcg/hr 1-11 } Patch to ity of patch 13:09: skin every [place] 42 72 [facility]. rOPINIRole 2020-02 Yes 1mg Take 1 mg Un oskar 1 mg tablet 1-11 by mouth ity of 13:09: at [place] [address] bedtime. Medical Branch CITALOPRAM 2020-02 Yes Take by Univ ers HYDROBROMID 1-11 mouth ity of E (CELEXA 13:09: daily. [place] ORAL) 42 Medical Branch OXCARBAZEPI 2020-02 Yes Take by Uni vers NE 1-11 mouth 2 ity of (TRILEPTAL 13:09: (two) [place] ORAL) 42 times Medical daily. Branch FENTanyl 25 2020-02 Yes 1{patch Apply 1 Univers mcg/hr 1-11 } Patch to ity of patch 13:09: skin every [place] [address] 72 [facility]. rOPINIRole 2020-02 Yes 1mg Take 1 mg Un oskar 1 mg tablet 1-11 by mouth ity of 13:09: at [place] [address] bedtime. Medical Branch CITALOPRAM 2020-02 Yes Take by Univ ers HYDROBROMID 1-11 mouth ity of E (CELEXA 13:09: daily. [place] ORAL) 42 Medical Branch OXCARBAZEPI 2020-02 Yes Take by Uni vers NE 1-11 mouth 2 ity of (TRILEPTAL 13:09: (two) [place] ORAL) 42 times Medical daily. Branch FENTanyl 25 2020-02 Yes 1{patch Apply 1 Univers mcg/hr 1-11 } Patch to ity of patch 13:09: skin every [place] 42 72 [facility]. rOPINIRole 2020-02 Yes 1mg Take 1 mg Un oskar 1 mg tablet 1-11 by mouth ity of 13:09: at [place] [address] bedtime. Medical Branch CITALOPRAM 2020-02 Yes Take by Univ ers HYDROBROMID 1-11 mouth ity of E (CELEXA 13:09: daily. [place] ORAL) 42 Medical Branch OXCARBAZEPI 2020-02 Yes Take by Uni vers NE 1-11 mouth 2 ity of (TRILEPTAL 13:09: (two) [place] ORAL) 42 times Medical daily. Branch FENTanyl 25 2020-02 Yes 1{patch Apply 1 Univers mcg/hr 1-11 } Patch to ity of patch 13:09: skin every [place] 72 [facility]. rOPINIRole 2020-02 Yes 1mg Take 1 mg Un oskar 1 mg tablet 1-11 by mouth ity of 13:09: at [place] [address] bedtime. Medical Branch CITALOPRAM 2020-02 Yes Take by Univ ers HYDROBROMID 1-11 mouth ity of E (CELEXA 13:09: daily. [place] ORAL) 42 Medical Branch OXCARBAZEPI 2020-02 Yes Take by Uni vers NE 1-11 mouth 2 ity of (TRILEPTAL 13:09: (two) [place] ORAL) 42 times Medical daily. Branch FENTanyl 25 2020-02 Yes 1{patch Apply 1 Univers mcg/hr 1-11 } Patch to ity of patch 13:09: skin every [place] [address] 72 [facility]. rOPINIRole 2020-02 Yes 1mg Take 1 mg Un oskar 1 mg tablet 1-11 by mouth ity of 13:09: at [place] [address] bedtime. Medical Branch CITALOPRAM 2020-02 Yes Take by Univ ers HYDROBROMID 1-11 mouth ity of E (CELEXA 13:09: daily. [place] ORAL) 42 Medical Branch OXCARBAZEPI 2020-02 Yes Take by Uni vers NE 1-11 mouth 2 ity of (TRILEPTAL 13:09: (two) [place] ORAL) 42 times Medical daily. Branch FENTanyl 25 2020-02 Yes 1{patch Apply 1 Univers mcg/hr 1-11 } Patch to ity of patch 13:09: skin every [place] [address] 72 Medical ([place] Branch wo) hours. rOPINIRole 2020-02 Yes 1mg Take 1 mg Un oskar 1 mg tablet 1-11 by mouth ity of 13:09: at [place] [address] bedtime. Medical Branch CITALOPRAM 2020-02 Yes Take by Univ ers HYDROBROMID 1-11 mouth ity of E (CELEXA 13:09: daily. [place] ORAL) 42 Medical Branch OXCARBAZEPI 2020-02 Yes Take by Uni vers NE 1-11 mouth 2 ity of (TRILEPTAL 13:09: (two) [place] ORAL) 42 times Medical daily. Branch FENTanyl 25 2020-02 Yes 1{patch Apply 1 Univers mcg/hr 1-11 } Patch to ity of patch 13:09: skin every [place] 42 72 Medical (seventy-t Branch wo) hours. rOPINIRole 2020-02 Yes 1mg Take 1 mg Un oskar 1 mg tablet 1-11 by mouth ity of 13:09: at [place] [address] bedtime. Medical Branch CITALOPRAM 2020-02 Yes Take by Univ ers HYDROBROMID 1-11 mouth ity of E (CELEXA 13:09: daily. [place] ORAL) 42 Medical Branch OXCARBAZEPI 2020-02 Yes Take by Uni vers NE 1-11 mouth 2 ity of (TRILEPTAL 13:09: (two) [place] ORAL) 42 times Medical daily. Branch FENTanyl 25 2020-02 Yes 1{patch Apply 1 Univers mcg/hr 1-11 } Patch to ity of patch 13:09: skin every [place] [address] 72 Medical (seventy-t Branch wo) hours. rOPINIRole 2020-02 Yes 1mg Take 1 mg Un oskar 1 mg tablet 1-11 by mouth ity of 13:09: at [place] [address] bedtime. Medical Branch CITALOPRAM 2020-02 Yes Take by [facility] ers HYDROBROMID 1-11 mouth ity of E (CELEXA 13:09: daily. [place] ORAL) 42 Medical Branch OXCARBAZEPI 2020-02 Yes Take by Uni vers NE 1-11 mouth 2 ity of (TRILEPTAL 13:09: (two) [place] ORAL) 42 times Medical daily. Branch FENTanyl 25 2020-02 Yes 1{patch Apply 1 Univers mcg/hr 1-11 } Patch to ity of patch 13:09: skin every [place] 42 72 Medical (seventy-t Branch wo) hours. rOPINIRole 2020-02 Yes 1mg Take 1 mg Un oskar 1 mg tablet 1-11 by mouth ity of 13:09: at [place] [address] bedtime. Medical Branch Movantik Movantik 2019-0 2019- No Cinda 1 tablet Common 04-22 [facility] 00:00: 00:00 morning - [facility] 00 :00 [facility] Pantoprazol Pantoprazol 2017- Yes Cinda 1 tablet Common e Sodium e Sodium 10-25 [place] Sp que 00:00: - [facility] 00 [facility] Chlordiazep Chlordiazep 2017-0 2019- No Cinda 1 capsule Common oxide-Clidi oxide-Clidi 10-25 [place] [facility] nium nium 00:00: 00:00 - [facility] 00 :00 [facility] ondansetron 2017 Yes Univer s 4 mg 1-02 ity of disintegrat 00:00: [place] ing tablet Medical [place] ondansetron 2017- Yes Univer s 4 mg 1-02 ity of disintegrat 00:00: [place] ing tablet Medical [place] ondansetron 2017- Yes Univer s 4 mg 1-02 ity of disintegrat 00:00: [place] ing tablet Medical Branch ondansetron 2017- Yes Univer s 4 mg 1-02 ity of disintegrat 00:00: [place] ing tablet Medical Branch ondansetron 2017- Yes Univer s 4 mg 1-02 ity of disintegrat 00:00: [place] ing tablet Medical Branch ondansetron 2017- Yes Univer s 4 mg 1-02 ity of disintegrat 00:00: [place] ing tablet Medical Branch ondansetron 2017- Yes Univer s 4 mg 1-02 ity of disintegrat 00:00: [place] ing tablet Medical Branch ondansetron 2017- Yes Univer s 4 mg 1-02 ity of disintegrat 00:00: [place] ing tablet Medical Branch ondansetron 2017- Yes Univer s 4 mg 1-02 ity of disintegrat 00:00: [place] ing tablet Medical Branch ondansetron 2017- Yes Univer s 4 mg 1-02 ity of disintegrat 00:00: [place] ing tablet Medical Branch ondansetron 2017- Yes Univer s 4 mg 1-02 ity of disintegrat 00:00: [place] ing tablet Medical Branch ondansetron 2017- Yes Univer s 4 mg 1-02 ity of disintegrat 00:00: [place] ing tablet Medical Branch ondansetron 2017- Yes Univer s 4 mg 1-02 ity of disintegrat 00:00: [place] ing tablet Medical Branch ondansetron 2016-02 Yes Univer s 4 mg 1-02 ity of disintegrat 00:00: [place] ing tablet Medical Branch ondansetron 2016-02 Yes Univer s 4 mg 1-02 ity of disintegrat 00:00: [place] ing tablet Medical Branch ondansetron 2016-02 Yes Univer s 4 mg 1- ity of disintegrat 00:00: [place] ing tablet Medical Branch LYRICA 100 2015-02 Yes Univers mg capsule 2-06 ity of 00:00: [place] 00 Medical Branch LYRICA 100 2015-02 Yes Univers mg capsule 2-06 ity of 00:00: [place] 00 Medical Branch LYRICA 100 2015-02 Yes Univers mg capsule 2-06 ity of 00:00: [place] 00 Medical Branch LYRICA 100 2015-02 Yes Univers mg capsule 2-06 ity of 00:00: [place] 00 Medical Branch LYRICA 100 2015-02 Yes Univers mg capsule 2-06 ity of 00:00: [place] 00 Medical Branch LYRICA 100 2015-02 Yes Univers mg capsule 2-06 ity of 00:00: [place] 00 Medical Branch LYRICA 100 2015-02 Yes Univers mg capsule 2-06 ity of 00:00: [place] 00 Medical Branch LYRICA 100 2015-02 Yes Univers mg capsule 2-06 ity of 00:00: [place] 00 Medical Branch LYRICA 100 2015-02 Yes Univers mg capsule 2-06 ity of 00:00: [place] 00 Medical Branch LYRICA 100 2015-02 Yes Univers mg capsule 2-06 ity of 00:00: [place] 00 Medical Branch LYRICA 100 2015-02 Yes Univers mg capsule 2-06 ity of 00:00: [place] 00 Medical Branch LYRICA 100 2015-02 Yes Univers mg capsule 2-06 ity of 00:00: [place] 00 Medical Branch LYRICA 100 2015-02 Yes Univers mg capsule 2-06 ity of 00:00: [place] 00 Medical Branch LYRICA 100 2015-02 Yes Univers mg capsule 2-06 ity of 00:00: [place] 00 Medical Branch LYRICA 100 2015-02 Yes Univers mg capsule 2-06 ity of 00:00: [place] 00 Medical Branch LYRICA 100 2015-02 Yes Univers mg capsule 2-06 ity of 00:00: [place] 00 Medical Mark FROST 50 2015-02 Yes 25mg Take 25 mg U nivers mg tablet 1-03 by mouth 2 ity of 00:00: (two) [place] 00 times Medical daily. Mark Vital 2015-02 Yes 25mg Take 25 mg U nivers mg tablet 1-03 by mouth 2 ity of 00:00: (two) [place] 00 times Medical daily. Mark Vital 2015-02 Yes 25mg Take 25 mg U nivers mg tablet 1-03 by mouth 2 ity of 00:00: (two) [place] 00 times Medical daily. Mark Vital 2015-02 Yes 25mg Take 25 mg U nivers mg tablet 1-03 by mouth 2 ity of 00:00: (two) [place] 00 times Medical daily. Mark Vital 2015-02 Yes 25mg Take 25 mg U nivers mg tablet 1-03 by mouth 2 ity of 00:00: (two) [place] 00 times Medical daily. Mark Vital 2015-02 Yes 25mg Take 25 mg U nivers mg tablet 1-03 by mouth 2 ity of 00:00: (two) [place] 00 times Medical daily. Mark Vital 2015-02 Yes 25mg Take 25 mg U nivers mg tablet 1-03 by mouth 2 ity of 00:00: (two) [place] 00 times Medical daily. Mark Vital 2015-02 Yes 25mg Take 25 mg U nivers mg tablet 1-03 by mouth 2 ity of 00:00: (two) [place] 00 times Medical daily. Mark Vital 2015-02 Yes 25mg Take 25 mg U nivers mg tablet 1-03 by mouth 2 ity of 00:00: (two) [place] 00 times Medical daily. Mark FROST 50 2015-02 Yes 25mg Take 25 mg U nivers mg tablet 1-03 by mouth 2 ity of 00:00: (two) [place] 00 times Medical daily. Mark FROST 50 2015-02 Yes 25mg Take 25 mg U nivers mg tablet 1-03 by mouth 2 ity of 00:00: (two) [place] 00 times Medical daily. Mark Vital 2015-02 Yes 25mg Take 25 mg U nivers mg tablet 1-03 by mouth 2 ity of 00:00: (two) [place] 00 times Medical daily. Mark FROST 50 2015-02 Yes 25mg Take 25 mg U nivers mg tablet 1-03 by mouth 2 ity of 00:00: (two) [place] 00 times Medical daily. Mark FROST 50 2015-02 Yes 25mg Take 25 mg U nivers mg tablet 1-03 by mouth 2 ity of 00:00: (two) [place] 00 times Medical daily. Mark FROST 50 2015-02 Yes 25mg Take 25 mg U nivers mg tablet 1-03 by mouth 2 ity of 00:00: (two) [place] 00 times Medical daily. Mark FROST 50 2015-02 Yes 25mg Take 25 mg U nivers mg tablet 1-03 by mouth 2 ity of 00:00: (two) [place] 00 times Medical daily. Mark Neurontin Neurontin Yes Cinda 1 capsule Common [facility] Amitriptyli Amitriptyli Yes Cinda 1 tablet Common ne HCl ne HCl [facility] Topamax Topamax Yes Cinda 1 tablet Comm on [facility] Zofran Zofran Yes Cinda 1 tablet Common [facility] Ultram Ultram Yes Cinda 1 tablet Common [place] as needed [facility] Lyrica Lyrica Yes Cinda 1 capsule Commo n [facility] Robaxin Robaxin Yes Cinda 1.5 Common [place] tablets [facility] Trazodone Trazodone Yes Cinda 1 tablet Common HCl HCl [place] at bedtime Spir it as needed [facility] Protonix Protonix Yes Cinda 1 tablet Co mmon [facility] James Frost Yes Cinda 1 tablet Comm on [facility] Synthroid Synthroid Yes Cinda 1 tablet Common [facility] on an Spirit empty - [facility] stomach in [facility] Imitrex Imitrex Yes Cinda 1 tablet Comm on [place] as needed [facility] t [facility] Citalopram Citalopram Yes Cinda 1 tablet Common Hydrobromid Hydrobromid [facility] e e [facility] Clonazepam Clonazepam Yes Cinda 1 tablet Common [facility] Cyclobenzap Cyclobenzap Yes Cinda 1 tablet Common rine HCl rine HCl [place] as needed [facility] Furosemide Furosemide Yes Cinda 1 tablet Common [place] as needed Spiri t for leg - [facility] swelling [facility] Effexor XR Effexor XR Yes Cinda 1 capsule Common [place] with food Spiri t - [facility] Immunizations Ordered Filled Immunization Date Status Comments [facility] e Immunization Name Name Influenza Virus 2021-01-05 Completed Universit y of Vaccine Quad IM, 00:00:00 [facility] dical Preserv and ABX Branch Free 6 MO-64 YRS Pneumococcal 13 2021-01-05 Completed Universit y of Conjugate, PCV13 00:00:00 [facility] dical (Prevnar 13) Branch [facility] 2021-01-05 Completed University of 00:00:00 [facility] Influenza Virus 2021-01-05 Completed Universit y of Vaccine Quad IM, 00:00:00 [facility] dical Preserv and ABX Branch Free 6 MO-64 YRS Pneumococcal 13 2021-01-05 Completed Universit y of Conjugate, PCV13 00:00:00 [facility] dical (Prevnar 13) Branch [facility] 2021-01-05 Completed University of 00:00:00 [facility] Influenza Virus 2021-01-05 Completed Universit y of Vaccine Quad IM, 00:00:00 [facility] dical Preserv and ABX Branch Free 6 MO-64 YRS Pneumococcal 13 2021-01-05 Completed Universit y of Conjugate, PCV13 00:00:00 [facility] dical (Prevnar 13) Branch [facility] 2021-01-05 Completed University of 00:00:00 [facility] Influenza Virus 2021-01-05 Completed Universit y of Vaccine Quad IM, 00:00:00 [facility] dical Preserv and ABX Branch Free 6 MO-64 YRS Pneumococcal 13 2021-01-05 Completed Universit y of Conjugate, PCV13 00:00:00 [facility] dical (Prevnar 13) Branch [facility] 2021-01-05 Completed University of 00:00:00 [facility] Influenza Virus 2021-01-05 Completed Universit y of Vaccine Quad IM, 00:00:00 [facility] dical Preserv and ABX Branch Free 6 MO-64 YRS Pneumococcal 13 2021-01-05 Completed Universit y of Conjugate, PCV13 00:00:00 [facility] dical (Prevnar 13) Branch TDAP 2021-01-05 Completed University of 00:00:00 [facility] Influenza Virus 2021-01-05 Completed Universit y of Vaccine Quad IM, 00:00:00 [facility] dical Preserv and ABX Branch Free 6 MO-64 YRS Pneumococcal 13 2021-01-05 Completed Universit y of Conjugate, PCV13 00:00:00 [facility] dical (Prevnar 13) Branch TDAP 2021-01-05 Completed University of 00:00:00 [facility] Influenza Virus 2021-01-05 Completed Universit y of Vaccine Quad IM, 00:00:00 [facility] dical Preserv and ABX Branch Free 6 MO-64 YRS Pneumococcal 13 2021-01-05 Completed Universit y of Conjugate, PCV13 00:00:00 [facility] dical (Prevnar 13) Branch TDAP 2021-01-05 Completed University of 00:00:00 [facility] Influenza Virus 2021-01-05 Completed Universit y of Vaccine Quad IM, 00:00:00 [facility] dical Preserv and ABX Branch Free 6 MO-64 YRS Pneumococcal 13 2021-01-05 Completed Universit y of Conjugate, PCV13 00:00:00 [facility] dical (Prevnar 13) Branch TDAP 2021-01-05 Completed University of 00:00:00 [facility] Influenza Virus 2021-01-05 Completed Universit y of Vaccine Quad IM, 00:00:00 [facility] dical Preserv and ABX Branch Free 6 MO-64 YRS Pneumococcal 13 2021-01-05 Completed Universit y of Conjugate, PCV13 00:00:00 [facility] dical (Prevnar 13) Branch TDAP 2021-01-05 Completed University of 00:00:00 [facility] Influenza Virus 2021-01-05 Completed Universit y of Vaccine Quad IM, 00:00:00 [facility] dical Preserv and ABX Branch Free 6 MO-64 YRS Pneumococcal 13 2021-01-05 Completed Universit y of Conjugate, PCV13 00:00:00 [facility] dical (Prevnar 13) Branch TDAP 2021-01-05 Completed University of 00:00:00 [facility] Influenza Virus 2021-01-05 Completed Universit y of Vaccine Quad IM, 00:00:00 [facility] dical Preserv and ABX Branch Free 6 MO-64 YRS Pneumococcal 13 2021-01-05 Completed Universit y of Conjugate, PCV13 00:00:00 [facility] dical (Prevnar 13) Branch AP 2021-01-05 Completed University of 00:00:00 [facility] Influenza Virus 2021-01-05 Completed Universit y of Vaccine Quad IM, 00:00:00 [facility] dical Preserv and ABX Branch Free 6 MO-64 YRS Pneumococcal 13 2021-01-05 Completed Universit y of Conjugate, PCV13 00:00:00 [facility] dical (Prevnar 13) Branch [facility] 2021-01-05 Completed University of 00:00:00 [facility] Influenza Virus 2021-01-05 Completed Universit y of Vaccine Quad IM, 00:00:00 [facility] dical Preserv and ABX Branch Free 6 MO-64 YRS Pneumococcal 13 2021-01-05 Completed Universit y of Conjugate, PCV13 00:00:00 [facility] dical (Prevnar 13) Branch [facility] 2021-01-05 Completed University of 00:00:00 [facility] Influenza Virus 2021-01-05 Completed Universit y of Vaccine Quad IM, 00:00:00 [facility] dical Preserv and ABX Branch Free 6 MO-64 YRS Pneumococcal 13 2021-01-05 Completed Universit y of Conjugate, PCV13 00:00:00 [facility] dical (Prevnar 13) Branch [facility] 2021-01-05 Completed University of 00:00:00 [facility] Influenza Virus 2021-01-05 Completed Universit y of Vaccine Quad IM, 00:00:00 [facility] dical Preserv and ABX Branch Free 6 MO-64 YRS Pneumococcal 13 2021-01-05 Completed Universit y of Conjugate, PCV13 00:00:00 [facility] dical (Prevnar 13) Branch [facility] 2021-01-05 Completed University of 00:00:00 [facility] Influenza Virus 2021-01-05 Completed Universit y of Vaccine Quad IM, 00:00:00 [facility] dical Preserv and ABX Branch Free 6 MO-64 YRS Pneumococcal 13 2021-01-05 Completed Universit y of Conjugate, PCV13 00:00:00 [facility] (Prevnar 13) Branch TDAP 2021-01-05 Completed University of 00:00:00 [facility] SARS-COV-2 COVID-19 2020-06-25 Completed Unive rsity of PFIZER VACCINE 00:00:00 [facility] Branch SARS-COV-2 COVID-19 2020-06-25 Completed Unive rsity of PFIZER VACCINE 00:00:00 [facility] Branch SARS-COV-2 COVID-19 2020-06-25 Completed Unive rsity of PFIZER VACCINE 00:00:00 [facility] Branch SARS-COV-2 COVID-19 2020-06-25 Completed Unive rsity of PFIZER VACCINE 00:00:00 [facility] Branch SARS-COV-2 COVID-19 2020-06-25 Completed Unive rsity of PFIZER VACCINE 00:00:00 [facility] [facility] SARS-COV-2 COVID-19 2020-06-25 Completed Unive rsity of PFIZER VACCINE 00:00:00 [facility] SARS-COV-2 COVID-19 2020-06-25 Completed Unive rsity of PFIZER VACCINE 00:00:00 [facility] SARS-COV-2 COVID-19 2020-06-25 Completed Unive rsity of PFIZER VACCINE 00:00:00 [facility] SARS-COV-2 COVID-19 2020-06-25 Completed Unive rsity of PFIZER VACCINE 00:00:00 [facility] SARS-COV-2 COVID-19 2020-06-25 Completed Unive rsity of PFIZER VACCINE 00:00:00 [facility] SARS-COV-2 COVID-19 2020-06-25 Completed Unive rsity of PFIZER VACCINE 00:00:00 [facility] SARS-COV-2 COVID-19 2020-06-25 Completed Unive rsity of PFIZER VACCINE 00:00:[address] [facility] SARS-COV-2 COVID-19 2020-06-25 Completed Unive rsity of PFIZER VACCINE 00:00:[address] [facility] SARS-COV-2 COVID-19 2020-06-25 Completed Unive rsity of PFIZER VACCINE 00:00:[address] [facility] SARS-COV-2 COVID-19 2020-06-25 Completed Unive rsity of PFIZER VACCINE 00:00:00 [facility] SARS-COV-2 COVID-19 2020-06-25 Completed Unive rsity of PFIZER VACCINE 00:00:00 [facility] SARS-COV-2 COVID-19 2020-06-04 Completed Unive rsity of PFIZER VACCINE 00:00:00 [facility] SARS-COV-2 COVID-19 2020-06-04 Completed Unive rsity of PFIZER VACCINE 00:00:00 [facility] SARS-COV-2 COVID-19 2020-06-04 Completed Unive rsity of PFIZER VACCINE 00:00:00 [facility] SARS-COV-2 COVID-19 2020-06-04 Completed Unive rsity of PFIZER VACCINE 00:00:00 [facility] SARS-COV-2 COVID-19 2020-06-04 Completed Unive rsity of PFIZER VACCINE 00:00:00 [facility] SARS-COV-2 COVID-19 2020-06-04 Completed Unive rsity of PFIZER VACCINE 00:00:00 [facility] SARS-COV-2 COVID-19 2020-06-04 Completed Unive rsity of PFIZER VACCINE 00:00:00 [facility] SARS-COV-2 COVID-19 2020-06-04 Completed Unive rsity of PFIZER VACCINE 00:00:[address] [facility] SARS-COV-2 COVID-19 2020-06-04 Completed Unive rsity of PFIZER VACCINE 00:00:[address] [facility] SARS-COV-2 COVID-19 2020-06-04 Completed Unive rsity of PFIZER VACCINE 00:00:00 [facility] SARS-COV-2 COVID-19 2020-06-04 Completed Unive rsity of PFIZER VACCINE 00:00:00 [facility] SARS-COV-2 COVID-19 2020-06-04 Completed Unive rsity of PFIZER VACCINE 00:00:[address] [facility] SARS-COV-2 COVID-19 2020-06-04 Completed Unive rsity of PFIZER VACCINE 00:00:[address] [facility] SARS-COV-2 COVID-19 2020-06-04 Completed Unive rsity of PFIZER VACCINE 00:00:[address] [facility] SARS-COV-2 COVID-19 2020-06-04 Completed Unive rsity of PFIZER VACCINE 00:00:[address] [facility] SARS-COV-2 COVID-19 2020-06-04 Completed Unive rsity of PFIZER VACCINE 00:00:[address] [facility] Flucelvax - single Flucelvax - single 2019-04-09 Completed [facility] - dose syringe dose syringe 00:00:00 [facility] Influenza Virus 2018-01-14 Completed Universit y of Vaccine Quad .5 mL 00:00:00 [facility] IM 6+ MO Branch Influenza Virus 2018-01-14 Completed Universit y of Vaccine 00:00:00 [facility] Influenza Virus 2018-01-14 Completed Universit y of Vaccine Quad .5 mL 00:00:00 [facility] 6+ MO Branch Influenza Virus 2018-01-14 Completed Universit y of Vaccine 00:00:00 [facility] Influenza Virus 2018-01-14 Completed Universit y of Vaccine Quad .5 mL 00:00:00 [facility] 6+ MO Branch Influenza Virus 2018-01-14 Completed Universit y of Vaccine 00:00:00 [facility] Influenza Virus 2018-01-14 Completed Universit y of Vaccine Quad .5 mL 00:00:00 [facility] 6+ MO Branch Influenza Virus 2018-01-14 Completed Universit y of Vaccine 00:00:00 [facility] Influenza Virus 2018-01-14 Completed Universit y of Vaccine Quad .5 mL 00:00:00 [facility] 6+ MO Branch Influenza Virus 2018-01-14 Completed Universit y of Vaccine 00:00:00 [facility] Influenza Virus 2018-01-14 Completed Universit y of Vaccine Quad .5 mL 00:00:00 [facility] 6+ MO Branch Influenza Virus 2018-01-14 Completed Universit y of Vaccine 00:00:00 [facility] Influenza Virus 2018-01-14 Completed Universit y of Vaccine Quad .5 mL 00:00:00 [facility] 6+ MO Branch Influenza Virus 2018-01-14 Completed Universit y of Vaccine 00:00:00 [facility] Influenza Virus 2018-01-14 Completed Universit y of Vaccine Quad .5 mL 00:00:00 [facility] 6+ MO Branch Influenza Virus 2018-01-14 Completed Universit y of Vaccine 00:00:00 [facility] Influenza Virus 2018-01-14 Completed Universit y of Vaccine Quad .5 mL 00:00:00 [facility] 6+ MO Branch Influenza Virus 2018-01-14 Completed Universit y of Vaccine 00:00:00 [facility] Influenza Virus 2018-01-14 Completed Universit y of Vaccine Quad .5 mL 00:00:00 [facility] 6+ MO Branch Influenza Virus 2018-01-14 Completed Universit y of Vaccine 00:00:00 [facility] Influenza Virus 2018-01-14 Completed Universit y of Vaccine Quad .5 mL 00:00:00 [facility] 6+ MO Branch Influenza Virus 2018-01-14 Completed Universit y of Vaccine 00:00:00 [facility] Influenza Virus 2018-01-14 Completed Universit y of Vaccine Quad .5 mL 00:00:00 [facility] 6+ MO Branch Influenza Virus 2018-01-14 Completed Universit y of Vaccine 00:00:00 [facility] Influenza Virus 2018-01-14 Completed Universit y of Vaccine Quad .5 mL 00:00:00 [facility] 6+ MO Branch Influenza Virus 2018-01-14 Completed Universit y of Vaccine 00:00:00 [facility] Influenza Virus 2018-01-14 Completed Universit y of Vaccine Quad .5 mL 00:00:00 [facility] 6+ MO Branch Influenza Virus 2018-01-14 Completed Universit y of Vaccine 00:00:00 [facility] Influenza Virus 2018-01-14 Completed Universit y of Vaccine Quad .5 mL 00:00:00 [facility] 6+ MO Branch Influenza Virus 2018-01-14 Completed Universit y of Vaccine 00:00:00 [facility] Influenza Virus 2018-01-14 Completed Universit y of Vaccine Quad .5 mL 00:00:00 [facility] 6+ MO Branch Influenza Virus 2018-01-14 Completed Universit y of Vaccine 00:00:00 [facility] Vital Signs Vital Name Observation Time Observation Value Comments Source Systolic blood 2022-02-28 17:46:00 128 mm[Hg] Univer sity of pressure [facility] Diastolic blood 2022-02-28 17:46:00 28 mm[Hg] Unive rsity of pressure [facility] Heart rate 2022-02-28 17:46:00 93 /min Universi ty of [facility] Body height 2022-02-28 17:46:00 165.1 cm [facility]i [facility] of [facility] Body weight 2022-02-28 17:46:00 115.214 kg [facility]i [facility] of [facility] BMI 2022-02-28 17:46:00 42.27 kg/m2 Universi ty of [facility] Systolic blood 2021-11-27 15:19:00 139 mm[Hg] Univer sity of pressure [facility] Diastolic blood 2021-11-27 15:19:00 76 mm[Hg] Unive rsity of [facility] Heart rate 2021-11-27 15:19:00 83 /min Universi ty of [facility] Body height 2021-11-27 15:19:00 165.1 cm Universi ty of [facility] Body weight 2021-11-27 15:19:00 120.385 kg Universi ty of [facility] BMI 2021-11-27 15:19:00 44.16 kg/m2 Universi ty of [facility] Oxygen saturation in 2021-11-27 15:19:00 99 /min [facility] Arterial blood by [facility] Pulse oximetry Branch Systolic blood 2021-08-25 21:45:00 124 mm[Hg] Univer sity of pressure [facility] Diastolic blood 2021-08-25 21:45:00 79 mm[Hg] Unive rsity of [facility] Heart rate 2021-08-25 21:45:00 75 /min Universi ty of [facility] Body temperature 2021-08-25 21:45:00 36.44 Lynsey Univ ersity of [facility] Respiratory rate 2021-08-25 21:45:00 18 /min Univ ersity of [facility] Body height 2021-08-25 21:45:00 165.1 cm Universi ty of [facility] Body weight 2021-08-25 21:45:00 123.378 kg Universi ty of [facility] BMI 2021-08-25 21:45:00 45.26 kg/m2 Universi ty of [facility] Procedures Procedure Date / Time Performed Performing Clinician Sourdanny e POCT HEMOGLOBIN A1C 2022-02-28 17:58:00 Lanie Lopez Universi ty of [facility] Encounters Start End Encounter Admission Attending Care Care Encounter Source Date/Time Date/Time Type Type Clinicians Facility Department ID 2021-03-22 Outpatient MATT Briceno [facility] [id number] Common 12:08:59 Cinda 12333 [facility] 2021-03-22 Outpatient MATT Briceno [facility] [id number] Common 12:08:27 Cinda [id number] [facility] 2021-03-22 Outpatient MATT Briceno [facility] [id number] Common 11:07:35 Cinda [id number] [facility] 2022-07-02 2022-07-02 Outpatient R LANIE LOPEZ [facility] [id number] Univers 13:30:00 13:30:00 LANIE LOPEZ cristopher [facility] 2022-03-02 2022-03-02 Refill Jessica [facility] 1.2.840.114 [id number] Univers 00:00:00 00:00:00 PRIMARY 350.1.13.10 it [place] [id number] [address] 2022-02-28 2022-02-28 Outpatient R LANIE LOPEZ [facility] [id number] Univers 12:00:00 13:14:28 LANIE LOPEZ [facility] 2022-02-28 2022-02-28 Office Jessica [facility] 1.2.840.114 [id number] Univers 12:00:00 13:14:28 Visit HEALTH 350.1.13.10 it y of [place] 4.2.7.2.686 Flip as HESHAM?BLEA [id number] [address] OFFICE [facility] 2022-02-28 2022-02-28 Drill Press Tender Lab, Ang - Db [facility] 1.2.840.1 [id number] Univers 12:30:00 12:45:00 Visit Lanie Lopez [facility] 350.1.13.10 it y of [place] 4.2.7.2.686 Flip as HESHAM?BLEA [id number] [address] OFFICE [facility] 2022-01-02 2022-01-02 Outpatient R LU [facility] [id number] Univers 15:30:00 15:30:00 ARIESBILLY jefferson [facility] 2021-12-19 2021-12-19 Patient Lanie Lopez [facility] [id number] [id number] Univers 00:00:00 00:00:00 Secure Msg PRIMARY 350.1.13.10 ity [place] [id number] [address] 2021-12-15 2021-12-15 Outpatient R YESIKA [facility] [id number] Univers 16:30:00 16:30:00 FAYEROGE jefferson [facility] 2021-12-15 2021-12-15 [facility]phone [facility] 1.2.408.344 [id number] Univers 00:00:00 00:00:00 Faye HEALTH 350.1.13.10 it y of [place] 4.2.7.2.686 Flip as HESHAM?BLEA [id number] [facility] [address] MEDICAL OFFICE [facility] 2021-11-29 2021-11-29 Refill Jessica [facility] 1.2.840.114 [id number] Univers 00:00:00 00:00:00 HEALTH 350.1.13.10 it y of [place] 4.2.7.2.686 Flip as HESHAM?BLEA [id number] [address] OFFICE [facility] 2021-11-29 2021-11-29 Refill Jessica [facility] 1.2.840.114 [id number] Univers 00:00:00 00:00:00 HEALTH 350.1.13.10 it y of [place] 4.2.7.2.686 Flip as HESHAM?BLEA [id number] [address] OFFICE [facility] 2021-11-27 2021-11-27 Outpatient R LANIE LOPEZ [facility] [id number] Univers 10:30:00 11:02:19 JESSICA LANIE jefferson [facility] 2021-11-27 2021-11-27 Office Jessica [facility] 1.2.840.114 [id number] Univers 10:30:00 11:02:19 Visit HEALTH 350.1.13.10 it y of [place] 4.2.7.2.686 Flip as HESHAM?BLEA [id number] [address] OFFICE [facility] 2021-11-24 2021-11-24 Harrison Estrada [facility] [id number] Univers 00:00:00 00:00:00 Chema Bernstein HEALTH 350.1.13.10 it y of [place] 4.2.7.2.686 Flip as HESHAM?BLEA [id number] [address] OFFICE [facility] 2021-10-21 2021-10-21 RefLanie Pride [facility] 1.2.840.114 [id number] Univers 00:00:00 00:00:00 HEALTH 350.1.13.10 it y of [place] 4.2.7.2.686 Flip as HESHAM?BLEA [id number] [address] 2021-10-20 2021-10-20 Outpatient DEBRA GARCÍA [facility] [id number] Univers 10:00:00 10:00:00 [facility] 2021-10-05 2021-10-05 Outpatient DEBRA GARCÍA [facility] [id number] Univers 15:00:00 15:00:00 [facility] 2021-09-29 2021-09-29 Outpatient R KIZZY MACKEY [facility] [id number] Univers 15:00:00 15:00:00 KIZZY MACKEY [facility] 2021-09-23 2021-09-23 [facility] 1.2.840.114 [id number] Univers 00:00:00 00:00:00 Nancy MULTISPEC 350.1.13.10 ity of [facility] [place].2.[place].2.[place] [id number] [address] [facility] 2021-09-12 2021-09-12 Outpatient R KIZZY MACKEY [facility] [id number] Univers 13:00:00 13:00:00 KIZZY MACKEY [facility] 2021-08-29 2021-08-29 Outpatient R LU [facility] [id number] Univers 09:00:00 09:00:00 ARIES itcristopher [facility] 2021-08-29 2021-08-29 Telephone Lanie Lopez [facility] [id number] Univers 00:00:00 00:00:00 PRIMARY 350.1.13.10 it [place] [id number] Hi dicisaura [address] 2021-08-25 2021-08-25 Office Debra Irvin [facility] 1.2.840.114 [id number] Univers 15:00:00 15:30:00 Visit [place] 350.1.13.10 i ty of [place]2.[place].2.[place] [id number] [facility] NAL [address] BUILDING 2021-08-25 2021-08-25 Outpatient R DEBRA IRVIN [facility] [id number] Univers 15:00:00 [facility]:00:[facility] 2021-08-25 2021-08-25 Outpatient R DEBRA IRVIN [facility] [id number] Univers 15:00:00 15:00:00 [facility] 2021-08-23 2021-08-23 Drill Press Tender Lab, Ang - Nadeem [facility] 1.2.840.1 [id number] Univers 09:30:00 09:45:00 Visit Lanie Lopez 350.1.13.10 it y of [facility] 4.2.7.2.686 Flip as HESHAM?BLEA [id number] Hi dicdc KNEY [address] MEDICAL OFFICE BUILDING 2021-08-23 2021-08-23 Outpatient R JESISCALANIE [facility] [id number] Univers 08:30:00 09:16:15 JESSICALANIE [facility] 2021-08-23 2021-08-23 Office Lanie Lopez [facility] 1.2.840.114 [id number] Univers 08:30:00 09:16:15 Visit HEALTH 350.1.13.10 it y of [facility] 4.2.7.2.686 Flip as HESHAM?BLEA [id number] [address] OFFICE [facility] 2021-08-03 2021-08-03 [facility] [id number] Univers 00:00:00 00:00:00 Chema [facility] Diaries 350.1.13.10 it y of [place] 4.2.7.2.686 Flip as HESHAM?BLEA [id number] [address] 2021-08-02 2021-08-02 Outpatient R ISIDRO [facility] [id number] Univers 16:00:00 16:00:00 WENTONG ity of [facility] 2021-07-31 2021-07-31 [facility] 1.2.432.740 [id number] Univers 00:00:00 00:00:00 Chema [facility] Diaries 350.1.13.10 it y of [place] 4.2.7.2.686 Flip as HESHAM?BLEA [id number] [address] 2021-07-21 2021-07-21 [facility] 1.2.153.964 [id number] Univers 00:00:00 00:00:00 Chema H Campus Diaries 350.1.13.10 it y of [facility] 4.2.7.2.686 Flip as HESHAM?BLEA [id number] [address] 2021-07-20 2021-07-20 [facility] 1.2.840.114 [id number] Univers 00:00:00 00:00:00 Nancy MULTISPEC 350.1.13.10 ity of [place] [id number] [facility] AND SPIVEY [address] [place] [address] DIABETES CLINIC 2021-05-17 2021-05-17 [facility] 1.2.271.881 [id number] Univers 00:00:00 00:00:00 Chema H [place] 350.1.13.10 i ty of [place] 4.2.7.2.[place] [id number] [address] 2021-03-11 2021-03-11 Jacintamegan [facility] 1.2.634.105 [id number] Univers 00:00:00 00:00:00 Chema Bernstein SELINA 350.1.13.10 i ty of [place]2.[place].2.[place] [id number] [address] 2021-03-08 2021-03-08 Harrison [facility] 1.2.409.930 [id number] Univers 00:00:00 00:00:00 Chema Bernstein SELINA 350.1.13.10 i ty of [place] 4.2.7.2.[place] [id number] [address] 2021-02-23 2021-02-23 Outpatient JOSE CARTER [facility] [id number] Univers 13:30:00 13:30:00 ity of [facility] 2021-02-09 2021-02-09 Orders Doctor MATT 1.2.840.114 [id number] Univers 00:00:00 00:00:00 Only Unassigned, LANE 350.1.13.10 ity of [place] [facility] 4.2.7.2.686 Flip as [id number] [address] 2021-01-30 2021-01-30 Outpatient Smooth NAPOLES [facility] [id number] Univers 00:00:00 00:00:00 FAYE jefferson [facility] 2021-01-30 2021-01-30 Outpatient Smooth NAPOLES [facility] [id number] Univers 00:00:00 00:00:00 FAYE jefferson [facility] 2021-01-24 2021-01-24 Arti Napoles [facility] [id number] [id number] Univers 00:00:00 00:00:00 [facility] 350.1.13.10 it y of [place] 4.2.7.2.686 Flip as HESHAM?BLEA [id number] [address] 2021-01-17 2021-01-17 Outpatient KIZZY DAWN [facility] [id number] Univers 13:00:00 13:00:00 KIZZY MACKEY ity [facility] 2021-01-16 2021-01-16 Drill Press Tender Charli Jarvis Lab Main [facility] 1.2.8 40.114 [id number] Univers 12:41:38 12:56:38 Visit Gaetano Jose Darci MARKS 350.1.13.10 ity of [place] 4.2.7.2.[place] [id number] Hi dical NAL [address] [facility] 2021-01-16 2021-01-16 Office Jose Bowen [facility] 1.2.840.114 [id number] Univers 10:57:50 11:58:36 Visit Aries Leigh 350.1.13.10 ity of [place] 4.2.7.2.[place] [id number] Hi dical NAL 134 [facility] 2021-01-16 2021-01-16 Outpatient Smooth LEIGH [facility] [id number] Univers 10:30:00 11:58:36 [facility] 2021-01-16 2021-01-16 Outpatient R LU [facility] [id number] Univers 10:30:00 11:58:36 [facility] 2021-01-16 2021-01-16 Orders Doctor MATT 1.2.840.114 [id number] Univers 00:00:00 00:00:00 Only Unassigned, LANE 350.1.13.10 ity of [place] [facility] 4.2.7.2.686 Flip as [id number] [facility] [address] 2021-01-13 2021-01-13 Patient Kassandra [facility] 1.2.840.114 [id number] Univers 00:00:00 00:00:00 Secure Msg Nancy MULTISPEC 350.1.13.10 ity of [facility] 4.2.7.2.686 [place] [id number] [facility] [place] [address] [facility] 2021-01-10 2021-01-10 Telephone Yesika [facility] 1.2.385.218 [id number] Univers 00:00:00 00:00:00 Faye HEALTH 350.1.13.10 it y of [place] 4.2.7.2.686 Flip as HESHAM?BLEA [id number] Hi anshul LYONS 0[address] [facility] OFFICE [facility] 2021-01-06 2021-01-06 [facility] [id number] Univers 15:30:00 16:04:28 NANCYSEAN jefferson [facility] 2021-01-06 2021-01-[address] [facility] 1.2.840.114 [id number] Univers 15:25:33 16:04:28 Visit Nancy HEALTH 350.1.13.10 it y of [facility] 4.2.7.2.686 Flip as HESHAM?BLEA [id number] [facility] [address] [facility] OFFICE [facility] 2021-01-06 2021-01-06 Outpatient [facility] [id number] Univers 15:30:00 15:30:00 NANCY cristopher [facility] 2021-01-06 2021-01-06 Outpatient [facility] [id number] Univers 15:30:00 [facility]:30[facility]-05 2021-01-05 [facility] [id number] Univers 14:30:00 23:59:00 [facility] 2021-01-05 2021-01-05 [facility] 1.2.840.114 [id number] Univers 14:30:00 23:59:00 Encounter Faye HEALTH 350.1.13.10 ity of [place] 4.2.7.2.686 Flip as HESHAM?BLEA [id number] [facility] 8[address] [facility] OFFICE [facility] 2021-01-05 2021-01-05 Outpatient [facility] [id number] Univers 14:30:00 14:30:00 FAYE itcristopher [facility] 2021-01-05 2021-01-05 Outpatient [facility] [id number] Univers 14:30:00 14:30:00 FAYE ity [facility] 2021-01-05 2021-01-05 Drill Press Tender Lab, Ang - Db [facility] 1.2.840.1 [id number] Univers 14:08:27 14:23:27 Visit Faye Napoles HEALTH 350.1.13.10 ity of [place] 4.2.7.2.686 Flip as HESHAM?BLEA [id number] Hi anshul LYONS [address] MEDICAL OFFICE BUILDING 2021-01-05 2021-01-05 Office Yesika [facility] 1.2.840.114 [id number] Univers 12:52:04 14:06:37 Visit Faye HEALTH 350.1.13.10 it y of [place] 4.2.7.2.686 Flip as HESHAM?BLEA [id number] Hi anshul LYONS 044 [facility] OFFICE [facility] 2021-01-05 2021-01-05 Orders Doctor MATT 1.2.840.114 [id number] Univers 00:00:00 00:00:00 Only Unassigned, LANE 350.1.13.10 ity of [place] [facility] 4.2.7.2.686 Flip as [id number] [address] 2020-12-23 2020-12-23 Telephone [facility] 1.2.840.114 [id number] [facility] 00:00:00 00:00:00 Chema ANDERSEN 350.1.13.10 it y of [place] 4.2.7.2.686 Flip as HESHAM?BLEA [id number] Hi anshul LYONS [address] MEDICAL OFFICE [facility] 2020-12-12 2020-12-12 Outpatient Smooth NAPOLES [facility] [id number] Univers 09:00:00 09:00:00 FAYE jefferson [facility] 2020-11-25 2020-11-25 Outpatient Smooth ESTRADA [facility] [id number] Univers 16:00:00 16:00:00 CHEMA jefferson [facility] 2020-11-21 2020-11-21 Outpatient Smooth ESTRADA [facility] [id number] Univers 11:00:00 11:00:00 CHEMA jefferson [facility] 2020-10-28 2020-10-28 Telephone [facility] 1.2.840.114 [id number] Univers 00:00:00 00:00:00 [place] MULTISPEC 350.1.13.10 [id number] [phone] [address] [facility] 2020-10-28 2020-10-28 Telephone [facility] [id number] Univers 00:00:00 00:00:00 [place] MULTISPEC [id number] [id number] [phone] [address] [facility] 2020-10-24 2020-10-24 [facility] [facility] 1.2.840.114 [id number] Univers 00:00:00 00:00:00 Senia Marks 350.1.13.10 i [place] [phone] [address] 2020-10-20 2020-10-20 [facility] [id number] Univers 00:00:00 00:00:00 Chema Marks 350.1.13.10 i [place] [phone] [address] 2020-10-20 2020-10-20 [facility] [id number] Univers 00:00:00 00:00:00 Chema Riggston 350.1.13.10 i [place] [phone] [address] 2020-07-24 2020-07-24 [facility] [id number] Univers 00:00:00 00:00:00 Chema H [place] 350.1.13.10 i [place] [phone] [address] 2020-06-25 2020-06-25 Outpatient [facility] [id number] Univers 13:10:00 13:10:00 [facility] 2020-06-04 2020-06-04 Outpatient [facility] [id number] Univers 13:00:00 13:00:00 [facility] 2020-05-25 2020-05-25 [facility] [id number] Univers 15:00:00 15:00:00 [facility] 2020-05-13 2020-05-13 Office [facility] [id number] Univers 10:59:16 12:12:32 Visit Chema Marks 350.1.13.10 i [place] [phone] [address] 2020-05-13 2020-05-13 Outpatient [facility] [id number] Univers 11:00:00 11:00:00 CHEMA [facility] 2020-05-10 2020-05-10 Out[facility] [id number] Univers 14:30:00 14:30:00 [facility] 2020-04-24 2020-04-24 [facility] [id number] Univers 00:00:00 00:00:00 Chema Riggston 350.1.13.10 i ty of [place] [phone] [address] 2020-02-15 2020-02-15 Harrison [facility] [id number] Univers 00:00:00 00:00:00 Chema H [place] 350.1.13.10 i [place] [phone] [address] 2020-02-11 2020-02-11 Refill Isidro [facility] 1.2.840.114 [id number] Univers 00:00:00 00:00:00 Wentargelia MULTISPEC 350.1.13.10 ity of [facility] [place]2.[place].2.[place] [phone] [facility] [place] [address] [facility] 2020-01-29 2020-01-29 Outpatient [facility] [id number] Univers 09:00:00 09:00:00 CHEMA ity of [facility] 2020-01-28 2020-01-28 Orders MATT Zhang 1.2.840.114 [id number] Univers 00:00:00 00:00:[address] 350.1.13.10 it y of [facility] 4.2.7.2.686 Flip as [phone] [place] [address] [address] 2020-01-27 2020-01-27 Telephone [facility] 1.2.840.114 [id number] Univers 00:00:00 00:00:00 Chema H [place] 350.1.13.10 [place] [phone] [address] 2019-12-28 2019-12-28 [facility] [id number] Univers 00:00:00 00:00:00 Chema H [place] 350.1.13.10 i ty [place] [phone] [address] 2019-12-28 2019-12-28 [facility] [id number] 00:00:00 00:00:00 Chema H [place] 350.1.13.10 [place] 4.2.7.2.686 Professio [phone] [address] 2019-07-28 2019-07-28 Outpatient R [facility] [id number] Univers 08:45:00 08:45:00 ity of [facility] 2019-07-24 2019-07-24 Telemedici Angelica [facility] 1.2.840.114 [id number] [facility] 08:17:11 11:47:51 ne Visit Chema Marks 350.1.13.10 ity of [place] [phone] [address] 2019-07-24 2019-07-24 Telembryce hospitali [facility] 1.2.840.114 [id number] 08:17:11 11:47:51 ne Visit Chema Marks 350.1.13.10 [place] 4.2.7.2.686 Professio [phone] [address] 2019-07-24 2019-07-24 Outpatient [facility] [id number] [facility] 10:30:00 10:30:00 CHEMA jefferson [facility] 2019-07-10 2019-07-10 Refmegan [facility] 1.2.840.114 [id number] [facility] 00:00:00 00:00:00 Fiona MULTISPEC 350.1.13.10 ity of [place] [phone] [facility] AND [address] DIABETES [facility] 2019-07-10 2019-07-10 Refmegan [facility] 1.2.840.114 [id number] 00:00:00 00:00:00 Fiona MULTISPEC 350.1.13.10 IALTY 4.2.7.2.686 CENTER [phone] [place] [address] [facility] 2019-05-20 2019-05-20 Telemedici [facility] 1.2.840.114 [id number] [facility] 08:37:33 13:26:38 ne Visit Fiona Marks 350.1.13.10 ity [place] [phone] [address] 2019-05-20 2019-05-20 Telempeteri [facility] 1.2.840.114 [id number] 08:37:33 13:26:38 ne Visit Fiona Marks 350.1.13.10 [place] 4.2.7.2.686 Professio [phone] [address] 2019-05-20 2019-05-20 Outpatient [facility] [id number] Univers 09:30:00 09:30:[address] [facility] 2019-05-20 2019-05-20 Telephone [facility] [id number] Univers 00:00:00 00:00:00 Wentong [place] 350.1.13.10 i ty [place] [phone] [address] 2019-05-20 2019-05-20 Telephone [facility] 1.2.617.625 [id number] 00:00:00 00:00:00 Wentong [place] 350.1.13.10 [place] 4.2.7.2.686 Professio [phone] [address] 2019-05-19 2019-05-19 Outpatient [facility] [id number] Univers 14:15:00 14:15:[address] [facility] 2019-05-17 2019-05-17 Refill [facility] 1.2.840.114 [id number] Univers 00:00:00 00:00:00 Wentong [place] 350.1.13.10 i ty [place] [phone] [address] 2019-05-17 2019-05-17 Refill Zully [facility] 1.2.840.114 [id number] Univers 00:00:00 00:00:00 Nicole [place] 350.1.13.10 i ty of [place] [phone] [address] 2019-05-17 2019-05-17 [facility] 1.2.840.114 [id number] 00:00:00 00:00:00 Wentong [place] 350.1.13.10 [place] 4.2.7.2.686 Professio [phone] [address] 2019-05-17 2019-05-17 Refill Andrea, [facility] 1.2.840.114 [id number] 00:00:00 00:00:00 Nicole [place] 350.1.13.10 [place] 4.2.7.2.686 Professio [phone] [address] 2019-05-15 2019-05-15 Refill Zhang, [facility] 1.2.840.114 [id number] Univers 00:00:00 00:00:00 Wentong [place] 350.1.13.10 i ty [place] [phone] Hi dical [address] 2019-05-15 2019-05-15 Refill Zhang, [facility] 1.2.840.114 [id number] 00:00:00 00:00:00 Fiona [place] 350.1.13.10 [place] 4.2.7.2.686 Professio [phone] [address] 2019-04-28 2019-04-28 Refill Andrea, [facility] 1.2.840.114 [id number] Univers 00:00:00 00:00:00 Nicole MULTISPEC 350.1.13.10 ity of [place] [phone] [facility] AND [address] [facility] 2019-04-28 2019-04-28 Refill Andrea, [facility] 1.2.840.114 [id number] 00:00:00 00:00:00 Nicole MULTISPEC 350.1.13.10 [place] IALTY 4.2.7.2.686 CENTER [phone] AND [place] [address] [facility] 2019-04-24 2019-04-24 Refill Zhang, [facility] 1.2.840.114 [id number] Univers 00:00:00 00:00:00 Wentong [place] 350.1.13.10 i ty [place] [phone] Hi dical [address] 2019-04-24 2019-04-24 Refill Zhang, [facility] 1.2.840.114 [id number] 00:00:00 00:00:00 Wentong [place] 350.1.13.10 [place] 4.2.7.2.686 Professio [phone] [address] 2019-04-12 2019-04-12 Outpatient Jose Garciat [id number] Common 21:42:00 21:42:00 t [facility] [place] [address] [facility] 2019-04-09 2019-04-09 Outpatient Jose Garciat [id number] Common 10:45:00 10:45:00 t [facility] [place] [address] [facility] 2019-04-03 2019-04-03 Refill [facility] 1.2.840.114 [id number] [facility] 00:00:00 00:00:00 Wentong [place] 350.1.13.10 i ty [place] [phone] [address] 2019-04-03 2019-04-03 Refill [facility] 1.2.840.114 [id number] 00:00:00 00:00:00 Wentong [place] 350.1.13.10 [place] 4.2.7.2.686 Professio [phone] [address] 2018-11-05 2018-11-05 Outpatient R BROOKLYNNISIS, [facility] [id number] Univers 15:00:00 15:00:00 ARIES je[facility]erson [facility] 2018-10-30 2018-10-30 Telephone [facility] [id number] [facility] 00:00:00 00:00:00 Wentong [place] 350.1.13.10 i ty [place] [phone] [address] 2018-10-30 2018-10-30 [facility]phone [facility] [id number] 00:00:00 00:00:00 Wentong [place] 350.1.13.10 [place] 4.2.7.2.686 Professio [phone] [address] 2018-09-19 2018-09-19 Harrison Andrea [facility] 1.2.840.114 [id number] 00:00:00 00:00:00 Nicole Marks 350.1.13.10 i ty of [place] [phone] Me dical community [facility] [address] [facility] 2018-09-19 2018-09-19 Harrison Andrea KYCAROL 1.2.840.114 [id number] 00:00:00 00:00:00 Nicole Marks 350.1.13.10 М[place] 4.2.7.2.686 Professio [phone] nal 220 [facility] 2018-08-06 2018-08-06 Outpatient [facility] [id number] Common 11:09:00 11:09:00 t [facility] [address] [facility] 2018-04-23 2018-04-23 Outpatient [facility] [id number] Common 01:12:00 01:12:00 t [facility] [address] [facility] 2018-04-22 2018-04-22 Outpatient [facility] [id number] Common 16:00:00 16:00:[address] [facility] 2017-10-29 2017-10-29 Outpatient [facility] [id number] Common 09:06:00 09:06:00 t [facility] [address] [facility] 2017-10-25 2017-10-25 Outpatient [facility] [id number] Common 23:08:00 23:08:00 t [facility] [address] [facility] 2017-10-25 2017-10-25 Outpatient [facility] [id number] Common 15:00:00 15:00:[address] [facility] Results Test Description Test Time Test Comments Results Result Comments Source POCT HEMOGLOBIN A1C TEST 2022-02-28 17:58:00 Test Item Value Reference Range Interpretation Comme nts POCT HBA1C (test code = 4548-4) 4.8 % 4-6 [facility] HEMOGLOBIN A1C [id number] 17:58:00 Test Item Value Reference Range Interpretation Comments POCT HBA1C (test code = 4548-4) 4.8 % 4-6 [facility]
--- NOTE | 2022-04-07 22:21 | ER ---
Nurse's Notes [facility] Name: Lavinia Jarrett Age: 41 yrs Sex: Female : 1980 Arrival Date: 04/07/2022 Time: 21:46 Bed 7 Private MD: Diagnosis: Burn of second degree of chest wall, initial encounter Presentation: 04/07 22:03 Chief complaint: Patient states: States "I was smoking a cigarette and I thought it was ll3 a dream, I put the liang out on myself", burn noted to right breast, states pain is 8/10. Coronavirus screen: Vaccine status: Patient reports receiving the 2nd dose of the covid vaccine. At this time, the client does not indicate any symptoms associated with coronavirus-19. Ebola Screen: No symptoms or risks identified at this time. Initial Sepsis Screen: Does the patient meet any 2 criteria? No. Patient's initial sepsis screen is negative. Does the patient have a suspected source of infection? No. Patient's initial sepsis screen is negative. Risk Assessment: Do you want to hurt yourself or someone else? Patient reports no desire to harm self or others. Onset of symptoms was March 24, 2022. 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 - Social history:: Smoking status: Patient reports the use of cigarette tobacco products, smokes one pack cigarettes per day. Screenin:00 [facility] ED Fall Risk Assessment (Adult) History of falling in the last 3 months, jb4 including since admission No falls in past 3 months (0 pts) Confusion or Disorientation No (0 pts) Score/Fall Risk Level 0 - 2 = Low Risk Oriented to surroundings, Maintained a safe environment. Abuse screen: Denies threats or abuse. Nutritional screening: No deficits noted. Tuberculosis screening: No symptoms or risk factors identified. Assessment: 22:00 General: Appears in no apparent distress. comfortable, Behavior is calm, cooperative, jb4 appropriate for age. Pain: Complains of pain in right breast Pain does not radiate. Pain currently is 8 out of 10 on a pain scale. Quality of pain is described as burning. Neuro: Level of Consciousness is awake, alert, obeys commands, Oriented to person, place, time, situation. Cardiovascular: Patient's skin is warm and dry. Respiratory: Airway is patent Respiratory effort is even, unlabored, Respiratory pattern is regular, symmetrical. GI: No signs and/or symptoms were reported involving the gastrointestinal system. : No signs and/or symptoms were reported regarding the genitourinary system. EENT: No signs and/or symptoms were reported regarding the EENT system. Derm: Skin is intact, Skin is pink, warm \\T\\ dry. Musculoskeletal: Circulation, motion, and sensation intact. Range of motion: intact in all extremities. Vital Signs: 22:03 BP 136 / 85; Pulse 93; Resp 17; Temp 98.9(O); Pulse Ox 100% on R/A; Weight 111.13 kg; ll3 Height 5 ft. 5 in. (165.10 cm) (R); Pain 8/10; 22:03 Body Mass Index 40.77 (111.13 kg, 165.10 cm) ll3 ED Course: 21:46 Patient arrived in ED. ja2 21:55 Salinas Cates DO is Attending Physician. ms3 22:00 Patient has correct armband on for positive identification. Bed in low position. Call jb4 light in reach. Side rails up X 1. Client placed on continuous cardiac and pulse oximetry monitoring. NIBP monitoring applied. 22:01 Johnny Diana, KESHAV is Primary Nurse. jb4 22:06 Triage completed. ll3 22:06 Arm band placed on Patient placed in an exam room, on a stretcher, on pulse oximetry. ll3 22:43 No provider procedures requiring assistance completed. Patient did not have IV access jb4 during this emergency room visit. Administered Medications: No medications were administered Outcome: 22:20 Discharge ordered by . ms3 22:43 Discharged to home ambulatory. jb4 22:43 Condition: stable 22:43 Discharge instructions given to patient, Instructed on discharge instructions, follow up and referral plans. Demonstrated understanding of instructions, follow-up care. 22:43 Patient left the ED. jb4 Signatures: Johnny Diana, RN RN jb4 Salinas Cates DO DO ms3 Dionne Barnes Lyn[place], RN RN ll3 Corrections: (The following items were deleted from the chart) 22:07 22:06 Home Meds: baclofen 10 mg Oral tab 1 1-2 tab BID; ll3 ll3 22:07 22:06 Home Meds: butrans 20 mcg/hr patch every week; ll3 ll3
--- NOTE | 2022-04-07 22:44 | EDPHYS ---
Physician Documentation [facility] Name: Lavinia Jarrett Age: 41 yrs Sex: Female : 1980 Arrival Date: 04/07/2022 Time: 21:46 Bed 7 Private MD: ED Physician Salinas Cates HPI: 04/07 22:25 This 41 yrs old Female presents to ER via Ambulatory with complaints of Wound ms3 Infection. 22:25 41-year-old female with past medical history of [place]'s disease, bipolar, chronic ms3 pain, hypothyroid presents 1 week status post right breast burn after having a dream she was putting her cigarette out on her breast. Patient states on waking she was not dreaming. Patient states her discomfort is an 8/10 described as stinging. Patient denies fevers, chills, nausea, vomiting.. 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 - Social history:: Smoking status: Patient reports the use of cigarette tobacco products, smokes one pack cigarettes per day. ROS: 22:25 Constitutional: Negative for fever, and chills. ENT: Negative for injury, pain, and ms3 discharge, Neck: Negative for injury, pain, and swelling, Cardiovascular: Negative for chest pain, and palpitations. Respiratory: Negative for shortness of breath, cough, wheezing, and pleuritic chest pain, Abdomen/GI: Negative for abdominal pain, nausea, vomiting, diarrhea, and constipation. 22:25 MS/Extremity: Negative for injury and deformity. 22:25 Skin: Positive for burn. Exam: 22:25 Constitutional: This is a well developed, well nourished patient who is awake, alert, ms3 and in no acute distress. Head/Face: Normocephalic, atraumatic. Neck: Trachea midline, no cervical lymphadenopathy. Supple, full range of motion without nuchal rigidity, or vertebral point tenderness. No Meningismus. Chest/axilla: Normal chest wall appearance and motion. Nontender with no deformity. Cardiovascular: Regular rate and rhythm with a normal S1 and S2. No gallops, murmurs, or rubs. Normal PMI, no JVD. No pulse deficits. Respiratory: Lungs have equal breath sounds bilaterally, clear to auscultation and percussion. No rales, rhonchi or wheezes noted. No increased work of breathing, no retractions or nasal flaring. Abdomen/GI: Soft, non-tender, with normal bowel sounds. No distension or tympany. No guarding or rebound. No evidence of tenderness throughout. Back: No spinal tenderness. No costovertebral tenderness. Full range of motion. 22:25 Skin: injury, burn(s), 1 cm circular wound to right lateral breast. No surrounding erythema or induration.. Vital Signs: 22:03 BP 136 / 85; Pulse 93; Resp 17; Temp 98.9(O); Pulse Ox 100% on R/A; Weight 111.13 kg; ll3 Height 5 ft. 5 in. (165.10 cm) (R); Pain 8/10; 22:03 Body Mass Index 40.77 (111.13 kg, 165.10 cm) ll3 MDM: 22:14 Patient medically screened. ms3 22:25 Differential diagnosis: 1st degree garcía, 2nd degree garcía. Data reviewed: vital signs, ms3 nurses notes, and as a result, I will discharge patient. Care significantly affected by the following chronic conditions: Allenspark's disease. Counseling: I had a detailed discussion with the patient and/or guardian regarding: the historical points, exam findings, and any diagnostic results supporting the discharge/admit diagnosis, the need for outpatient follow up, to return to the emergency department if symptoms worsen or persist or if there are any questions or concerns that arise at home. ED course: Discussed wound care with patient. Patient to follow-up with her primary care physician in 2 to 3 days. Patient understands and agrees with plan. All questions were answered. Return precautions discussed include worsening symptoms, or any other concerns.. Administered Medications: No medications were administered Disposition Summary: 04/07/22 22:20 Discharge Ordered Location: Home ms3 Condition: Stable ms3 Diagnosis - Burn of second degree of chest wall, initial encounter ms3 Discharge Instructions: - Discharge Summary Sheet ms3 - Burn Care, Adult ms3 Forms: - Medication Reconciliation Form ms3 - Thank You Letter ms3 - Antibiotic Education ms3 - Prescription Opioid Use ms3 Signatures: Salinas Cates, DO ms3 Rachel Isbell, RN RN ll3 Corrections: (The following items were deleted from the chart) 22:07 22:06 Home Meds: baclofen 10 mg Oral tab 1 1-2 tab BID; ll3 ll3 22:07 22:06 Home Meds: butrans 20 mcg/hr patch every week; ll3 ll3
[2022-04-07 22:55] VITALS: BP 136/85; TEMP 98.9; O2SAT 100
== END 2022-04-07 22:43 | disposition home or self-care (01) ==
LOC: ER 21:40
DX: T21.21XA Burn of second degree of chest wall, initial encounter (principal); F17.210 Nicotine dependence, cigarettes, uncomplicated; Z91.040 Latex allergy status; Z91.048 Other nonmedicinal substance allergy status
CPT/HCPCS: 99283

== ENCOUNTER 2022-07-25 17:17 | Emergency (ER) | payer OTHER ==
--- OUTSIDE RECORDS SUMMARY | 2022-07-25 17:34 | XMS REPORT | Continuity of Care Document ---
:1980 Author Organization [facility] t Address [address] [place] [address] Care Team Providers Name Role Phone FAYE NAPOLES Primary Care Physician Unavailable Cinda Briceno Attending Clinician Unavailable JACQUELIN GIL Attending Clinician Unavailable Lanie Lopez MD Attending Clinician LANIE LOPEZ Attending Clinician Unavailable Pearl Echeverria RN Attending Clinician Unavailable Lab, Ang - Db [...] JOSE BOWEN Attending Clinician Unavailable Doctor Unassigned, [place] Attending Clinician Unavailable Pob, Charli Lab Main Attending Clinician Unavailable Jose Bowen MD Attending Clinician Aries Leigh PA-C Attending Clinician NANCY NEWMAN Attending Clinician Unavailable CHEMA ESTRADA Attending Clinician Unavailable Ely CUETO, Maribell Attending Clinician Senia Esparza DO Attending Clinician [...] in 0-02 ity of female female 00:00: [place] 00 Medical Branch Pelvic Pelvic Disease Active Univers adhesive adhesive 3-29 ity of disease disease 00:00: [place] 00 [facility] Branch Aston [place] Disease Active Univers disease disease 2-04 ity of 00:00: [place] 00 [facility] BV BV Disease Active Univers (bacterial (bacterial 1-17 it y of vaginosis) vaginosis[place] [facility] Hydrosalpi Hydrosalpi Disease Active U saúl nx nx 1-13 ity of 00:00: [place] 00 [facility] Branch Cyst of Cyst of Disease Active Univers maxillary maxillary 1-13 ity of sinus sinus 00:00: [place] 00 [facility] Female Female Disease Active Univers infertilit [...] Univers fatigue fatigue 2-16 ity of 00:00: [place] [facility] Morbid Morbid Disease Active 2015-02 [...] cortisol 9-06 ity of level level 00:00: [place] [facility] Postablati Postablati Disease Active U nivers ve ve 7-11 ity of hypothyroi hypothyroi 00[place] dism 00 Medical Branch Weight Weight Disease Active Univers gain gain 7-11 ity of 00:00: [place] [facility] Disorder Disorder Disease Active Overview: Un oskar of thyroid of thyroid 8 Formattin ity of 00:00: g of this [place] note Medical might be Branch different from the original. 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 - [facility] Muscle Muscle Problem Active Common weakness weakness [facility] Insomnia, Insomnia, Problem Active Com mon unspecifie unspecifie Sp que d type d type - [facility] Bipolar Bipolar Problem Active Common disorder disorder [facility] Hypothyroi Hypothyroi Problem Active C ommon dism, dism, Spirit unspecifie unspecifie - [facility] d type d type [facility] Depression Depression Problem Active C ommon with with Spirit anxiety anxiety - [facility] Foot pain Foot pain Problem Active Com mon Spirit - [facility] CPAP CPAP Problem Active Common (continuou [...] - [facility] with with St constipati constipati [facility] Gastroesop Gastroesop [...] INGREDI 0-25 ity of 00:00: [place] [address] [facility] Latex Propensi Active Itching 2015-02 Univers ty to 0-25 ity of adverse 00:00: [place] reaction 00 Medical s to Branch drug Social History Social Habit Start Date Stop Date Quantity Comments Source Exposure to 2022-02-18 2022-02-28 Not sure [facility] SARS-CoV-2 (event) 00:00:00 11:41:00 [facility] Alcohol intake 2021-08-25 2021-08-25 0 /d [facility] 00:00:00 00:00:00 [facility] Cigarettes smoked 2021-01-05 2021-01-05 Univers ity of current (pack per 00:00:00 00:00:00 [facility]) - Reported Branch Tobacco use and 2021-01-05 2021-01-05 Smokeless tobacco Un iversity of exposure 00:00:00 00:00:00 non-user [facility] Tobacco Comment 2021-01-05 2021-01-05 Pt smokes 1 pack Uni versity of 00:00:00 00:00:00 a day total of 20 [facility] cigarettes daily Branch History of tobacco 2005-02-25 Cigarette Smoker [facility] 00:00:00 [facility] Sex [birth year] At [birth year] Universit y of 00:00:00 00:00:00 [facility] Smoking Status Start Date Stop Date Source Smokes tobacco daily 2021-01-05 00:00:00 [facility] Ordered Filled Start Stop Current Ordering Indication Dosage Frequency Signature Comments Components Source Medication Medication Date Date Medication? Clinician (SIG) Name Name TOPIRAMATE Yes [id number] TAKE 1 Univers 25 mg 5-31 TABLET BY ity of tablet 00:00: MOUTH [place] 00 EVERY DAY Medical IN THE [place] MORNING phentermine Yes [id number] 37.5mg Take 1 Univers 37.5 mg 1-04 capsule by ity of capsule 00:00: mouth [place] 00 every Medical morning. [place] topiramate Yes [id number] 25mg Take 1 Univers 25 mg 1-04 tablet by ity of tablet 00:00: mouth in [place] 00 the Medical morning. [place] levothyroxi Yes [id number] 175ug Take 1 Univers ne 175 mcg 1-04 tablet by ity of tablet 00:00: mouth [place] 00 every Medical morning. Branch TAKE 1 TABLET DAILY SATURDAY THROUGH SATURDAY, AND 1/2 TABLET ON SATURDAY phentermine Yes [id number] 37.5mg Take 1 Univers 37.5 mg 1-04 capsule by ity of capsule 00:00: mouth [place] 00 every Medical morning. [place] topiramate Yes [id number] 25mg Take 1 Univers 25 mg 1-04 tablet by ity of tablet 00:00: mouth in [place] 00 the Medical morning. [place] levothyroxi Yes [id number] 175ug Take 1 Univers ne 175 mcg 1-04 tablet by ity of tablet 00:00: mouth [place] 00 every Medical morning. Branch TAKE 1 TABLET DAILY SATURDAY THROUGH SATURDAY, AND 1/2 TABLET ON SATURDAY phentermine Yes [id number] 37.5mg Take 1 Univers 37.5 mg 1-04 capsule by ity of capsule 00:00: mouth [place] 00 every Medical morning. [place] topiramate Yes [id number] 25mg Take 1 Univers 25 mg 1-04 tablet by ity of tablet 00:00: mouth in [place] 00 the Medical morning. Branch levothyroxi Yes [id number] 175ug Take 1 Univers ne 175 mcg 1-04 tablet by ity of tablet 00:00: mouth [place] 00 every Medical morning. Branch TAKE 1 TABLET DAILY SATURDAY THROUGH SATURDAY, AND 1/2 TABLET ON SATURDAY phentermine 2022-0 Yes [id number] 37.5mg Take 1 Univers 37.5 mg 1-04 capsule by ity of capsule 00:00: mouth [place] 00 every Medical morning. Branch topiramate 2022-0 Yes [id number] 25mg Take 1 Univers 25 mg 1-04 tablet by ity of tablet 00:00: mouth in [place] 00 the Medical morning. Branch levothyroxi Yes [id number] 175ug Take 1 Univers ne 175 mcg 1-04 tablet by ity of tablet 00:00: mouth [place] 00 every Medical morning. Branch TAKE 1 TABLET DAILY SATURDAY THROUGH SATURDAY, AND 1/2 TABLET ON SATURDAY phentermine 2022-0 Yes [id number] 37.5mg Take 1 Univers 37.5 mg 1-04 capsule by ity of capsule 00:00: mouth [place] 00 every Medical morning. Branch topiramate 2022-0 Yes [id number] 25mg Take 1 Univers 25 mg 1-04 tablet by ity of tablet 00:00: mouth in [place] 00 the Medical morning. Branch levothyroxi Yes [id number] 175ug Take 1 Univers ne 175 mcg 1-04 tablet by ity of tablet 00:00: mouth [place] 00 every Medical morning. Branch TAKE 1 TABLET DAILY SATURDAY THROUGH SATURDAY, AND 1/2 TABLET ON SATURDAY phentermine 2022-0 Yes [id number] 37.5mg Take 1 Univers 37.5 mg 1-04 capsule by ity of capsule 00:00: mouth [place] 00 every Medical morning. Branch topiramate 2022-0 Yes [id number] 25mg Take 1 Univers 25 mg 1-04 tablet by ity of tablet 00:00: mouth in [place] 00 the Medical morning. Branch levothyroxi Yes [id number] 175ug Take 1 Univers ne 175 mcg 1-04 tablet by ity of tablet 00:00: mouth [place] 00 every Medical morning. Branch TAKE 1 TABLET DAILY SATURDAY THROUGH SATURDAY, AND 1/2 TABLET ON SATURDAY phentermine Yes [id number] 37.5mg Take 1 Univers 37.5 mg 1-04 capsule by ity of capsule 00:00: mouth [place] 00 every Medical morning. Branch topiramate Yes [id number] 25mg Take 1 Univers 25 mg 1-04 tablet by ity of tablet 00:00: mouth in [place] 00 the Medical morning. Branch levothyroxi Yes [id number] 175ug Take 1 Univers ne 175 mcg 1-04 tablet by ity of tablet 00:00: mouth [place] 00 every Medical morning. Branch TAKE 1 TABLET DAILY SATURDAY THROUGH SATURDAY, AND 1/2 TABLET ON SATURDAY phentermine Yes [id number] 37.5mg Take 1 Univers 37.5 mg 1-04 capsule by ity of capsule 00:00: mouth [place] 00 every Medical morning. Branch topiramate Yes [id number] 25mg Take 1 Univers 25 mg 1-04 tablet by ity of tablet 00:00: mouth in [place] 00 the Medical morning. Branch levothyroxi Yes [id number] 175ug Take 1 Univers ne 175 mcg 1-04 tablet by ity of tablet 00:00: mouth [place] 00 every Medical morning. Branch TAKE 1 TABLET DAILY SATURDAY THROUGH SATURDAY, AND 1/2 TABLET ON SATURDAY phentermine Yes [id number] 37.5mg Take 1 Univers 37.5 mg 1-04 capsule by ity of capsule 00:00: mouth [place] 00 every Medical morning. Branch levothyroxi Yes [id number] 175ug Take 1 Univers ne 175 mcg 1-04 tablet by ity of tablet 00:00: mouth [place] 00 every Medical morning. Branch TAKE 1 TABLET DAILY SATURDAY THROUGH SATURDAY, AND 1/2 TABLET ON SATURDAY topiramate 2022- No [id number] 25mg Take 1 Univers 25 mg 1-04 05-31 tablet by ity of tablet 00:00: 00:00 mouth in [place] 00 :00 the Medical morning. Branch phentermine 2021-02 Yes [id number] 37.5mg Take 1 Univers 37.5 mg 0-26 capsule by ity of capsule 00:00: mouth [place] 00 every Medical morning. Branch phentermine 2021-02- No [id number] 37.5mg Take 1 Univers 37.5 mg 0-26 01-04 capsule by ity o f capsule 00:00: 00:00 mouth [place] 00 :00 every Medical morning. [place] phentermine 2021-02- No [id number] 37.5mg Take 1 Univers 37.5 mg 0-26 01-04 capsule by ity o f capsule 00:00: 00:00 mouth [place] 00 :00 every Medical morning. Branch semaglutide 2021-02 Yes [id number] .25mg inject Univers , weight 0-03 0.25 mg ity of loss, 00:00: under the [place] (WEGOVY) 00 skin Medical 0.25 mg/0.5 weekly. Branc h mL PnIj SC injection topiramate 2021-02 Yes [id number] 25mg Take 1 Univers 25 mg 0-03 tablet by ity of tablet 00:00: mouth in [place] 00 the Medical morning. Branch semaglutide 2021-02 Yes [id number] .25mg inject Univers , weight 0-03 0.25 mg ity of loss, 00:00: under the [place] (WEGOVY) 00 skin Medical 0.25 mg/0.5 weekly. Branc h mL PnIj SC injection topiramate 2021-02 Yes [id number] 25mg Take 1 Univers 25 mg 0-03 tablet by ity of tablet 00:00: mouth in [place] 00 the Medical morning. Branch semaglutide 2021-02 Yes [id number] .25mg inject Univers , weight 0-03 0.25 mg ity of loss, 00:00: under the [place] (WEGOVY) 00 skin Medical 0.25 mg/0.5 weekly. Branc h mL PnIj SC injection topiramate 2021-02 Yes [id number] 25mg Take 1 Univers 25 mg 0-03 tablet by ity of tablet 00:00: mouth in [place] 00 the Medical morning. Branch semaglutide 2021-02 Yes [id number] .25mg inject Univers , weight 0-03 0.25 mg ity of loss, 00:00: under the [place] (WEGOVY) 00 skin Medical 0.25 mg/0.5 weekly. Branc h mL PnIj SC injection topiramate 2021-02 Yes [id number] 25mg Take 1 Univers 25 mg 0-03 tablet by ity of tablet 00:00: mouth in [place] 00 the Medical morning. Branch semaglutide 2021-02 Yes [id number] .25mg inject Univers , weight 0-03 0.25 mg ity of loss, 00:00: under the [place] (WEVY) 00 skin Medical 0.25 mg/0.5 weekly. Branc h mL PnIj SC injection topiramate 2021-02 Yes [id number] 25mg Take 1 Univers 25 mg 0-03 tablet by ity of tablet 00:00: mouth in [place] 00 the Medical morning. Branch topiramate 2021-02 Yes [id number] 25mg Take 1 Univers 25 mg 0-03 tablet by ity of tablet 00:00: mouth in [place] 00 the Medical morning. Branch topiramate 2021-02- No [id number] 25mg Take 1 Univers 25 mg 0-03 01-04 tablet by ity of tablet 00:00: 00:00 mouth in [place] 00 :00 the Medical morning. Branch topiramate 2021-02- No [id number] 25mg Take 1 Univers 25 mg 0-03 01-04 tablet by ity of tablet 00:00: 00:00 mouth in [place] 00 :00 the Medical morning. Branch semaglutide 2021-02- No [id number] .25mg inject Univers , weight 0-03 10-26 0.25 mg ity of loss, 00:00: 00:00 under the [place] (WEGOVY) 00 :00 skin Medical 0.25 mg/0.5 weekly. Branc h mL PnIj SC injection topiramate Yes [id number] TAKE 1 Univers 25 mg 9-30 TABLET BY ity of tablet 00:00: MOUTH [place] 00 EVERY DAY Medical Branch topiramate 2021-2021- No [id number] TAKE 1 Univers 25 mg 9-30 10-03 TABLET BY ity of tablet 00:00: 00:00 MOUTH [place] 00 :00 EVERY DAY Medical Branch topiramate 2021- No [id number] TAKE 1 Univers 25 mg 9-30 10-03 TABLET BY ity of tablet 00:00: 00:00 MOUTH [place] 00 :00 EVERY DAY Medical Branch PHENTERMINE 0 Yes [id number] TAKE 1 Univers 37.5 mg 8-28 CAPSULE BY ity of capsule 00:00: MOUTH [place] 00 EVERY DAY Medical IN THE [place] MORNING PHENTERMINE 0 Yes [id number] TAKE 1 Univers 37.5 mg 8-28 CAPSULE BY ity of capsule 00:00: MOUTH [place] 00 EVERY DAY Medical IN THE [facility] PHENTERMINE 2021- No [id number] TAKE 1 Univers 37.5 mg 8-28 10-03 CAPSULE BY ity o f capsule 00:00: 00:00 MOUTH [place] 00 :00 EVERY DAY Medical IN THE [place] MORNING PHENTERMINE 2021- No [id number] TAKE 1 Univers 37.5 mg 8-28 10-03 CAPSULE BY ity o f capsule 00:00: 00:00 MOUTH [place] 00 :00 EVERY DAY Medical IN THE [facility] levothyroxi Yes [id number] TAKE 1 Univers ne 175 mcg 7-30 TABLET ity of tablet 00:00: DAILY [place] Saturday [facility] THROUGH [place] SATURDAY, AND 1/2 TABLET ON SATURDAY. levothyroxi Yes [id number] TAKE 1 Univers ne 175 mcg 7-30 TABLET ity of tablet 00:00: DAILY [place] Saturday [facility] [place] SATURDAY, AND 1/2 TABLET ON SATURDAY. levothyroxi 0 Yes [id number] TAKE 1 Univers ne 175 mcg 7-30 TABLET ity of tablet 00:00: DAILY [place] Saturday [facility] [place] SATURDAY, AND 1/2 TABLET ON SATURDAY. levothyroxi 0 Yes [id number] TAKE 1 Univers ne 175 mcg 7-30 TABLET ity of tablet 00:00: DAILY [place] Saturday [facility] [place] SATURDAY, AND 1/2 TABLET ON SATURDAY. levothyroxi 0 Yes [id number] TAKE 1 Univers ne 175 mcg 7-30 TABLET ity of tablet 00:00: DAILY [place] Saturday [facility] [place] SATURDAY, AND 1/2 TABLET ON SATURDAY. levothyroxi 0 Yes [id number] TAKE 1 Univers ne 175 mcg 7-30 TABLET ity of tablet 00:00: DAILY [place] Saturday [facility] [place] SATURDAY, AND 1/2 TABLET ON SATURDAY. levothyroxi 2022-0 Yes [id number] TAKE 1 Univers ne 175 mcg 7-30 TABLET ity of tablet 00:00: DAILY [place] 00 Saturday THROUGH Saturday, AND 1/2 TABLET ON SATURDAY. levothyroxi 0 Yes [id number] TAKE 1 Univers ne 175 mcg 7-30 TABLET ity of tablet 00:00: DAILY [place] Saturday, AND 1/2 TABLET ON SATURDAY. levothyroxi 0 Yes [id number] TAKE 1 Univers ne 175 mcg 7-30 TABLET ity of tablet 00:00: DAILY [place] 00 Saturday, AND 1/2 TABLET ON SATURDAY. levothyroxi 2022- No [id number] TAKE 1 Univers ne 175 mcg 7-30 01-04 TABLET ity of tablet 00:00: 00:00 DAILY [place] 00 :00 Saturday, AND 1/2 TABLET ON SATURDAY. levothyroxi 2022- No [id number] TAKE 1 Univers ne 175 mcg 7-30 01-04 TABLET ity of tablet 00:00: 00:00 DAILY [place] 00 :00 Saturday, AND 1/2 TABLET ON SATURDAY. hydrocortis 0 Yes [id number] 100mg 2 mL by Univers one sod 6-29 Intramuscu ity of succ 00:00: lar route [place] (SOLU-AMY 00 as needed Med ical F) 100 mg (for when Branc h injection patient is unconsciou s). hydrocortis 0 Yes [id number] 10mg Take 1 Univers one 10 mg 6-29 tablet by ity o f tablet 00:00: mouth 2 [place] (two) Medical times [place] daily. hydrocortis 0 Yes [id number] 100mg 2 mL by Univers one sod 6-29 Intramuscu ity of succ 00:00: lar route [place] (SOLU-AMY 00 as needed Med ical F) 100 mg (for when Branc h injection patient is unconsciou s). hydrocortis 2021-0 Yes [id number] 10mg Take 1 Univers one 10 mg 6-29 tablet by ity o f tablet 00:00: mouth 2 [place] (two) Medical times Branch daily. hydrocortis 0 Yes [id number] 100mg 2 mL by Univers one sod 6-29 Intramuscu ity of succ 00:00: lar route [place] (SOLU-AMY 00 as needed Med ical F) 100 mg (for when Branc h injection patient is unconsciou s). hydrocortis 0 Yes [id number] 10mg Take 1 Univers one 10 mg 6-29 tablet by ity o f tablet 00:00: mouth 2 (two) Medical times Branch daily. hydrocortis 0 Yes [id number] 100mg 2 mL by Univers one sod 6-29 Intramuscu ity of succ 00:00: lar route [place] (SOLU-AMY 00 as needed Med ical F) 100 mg (for when Branc h injection patient is unconsciou s). hydrocortis 0 Yes [id number] 10mg Take 1 Univers one 10 mg 6-29 tablet by ity o f tablet 00:00: mouth 2 (two) Medical times Branch daily. hydrocortis 0 Yes [id number] 100mg 2 mL by Univers one sod 6-29 Intramuscu ity of succ 00:00: lar route [place] (SOLU-AMY 00 as needed Med ical F) 100 mg (for when Branc h injection patient is unconsciou s). hydrocortis 0 Yes [id number] 10mg Take 1 Univers one 10 mg 6-29 tablet by ity o f tablet 00:00: mouth 2 (two) Medical times Branch daily. hydrocortis 0 Yes [id number] 100mg 2 mL by Univers one sod 6-29 Intramuscu ity of succ 00:00: lar route [place] (SOLU-AMY 00 as needed Med ical F) 100 mg (for when Branc h injection patient is unconsciou s). hydrocortis 2021-0 Yes [id number] 10mg Take 1 Univers one 10 mg 6-29 tablet by ity o f tablet 00:00: mouth 2 (two) Medical times Branch daily. hydrocortis 0 Yes [id number] 100mg 2 mL by Univers one sod 6-29 Intramuscu ity of succ 00:00: lar route [place] (SOLU-AMY 00 as needed Med ical F) 100 mg (for when Branc h injection patient is unconsciou s). hydrocortis 2021-0 Yes [id number] 10mg Take 1 Univers one 10 mg 6-29 tablet by ity o f tablet 00:00: mouth 2 (two) Medical times Branch daily. hydrocortis 2021-0 Yes [id number] 100mg 2 mL by Univers one sod 6-29 Intramuscu ity of succ 00:00: lar route [place] (SOLU-AMY 00 as needed Med ical F) 100 mg (for when Branc h injection patient is unconsciou s). hydrocortis 0 Yes [id number] 10mg Take 1 Univers one 10 mg 6-29 tablet by ity o f tablet 00:00: mouth 2 (two) Medical times Branch daily. hydrocortis 0 Yes [id number] 100mg 2 mL by Univers one sod 6-29 Intramuscu ity of succ 00:00: lar route [place] (SOLU-AMY 00 as needed Med ical F) 100 mg (for when Branc h injection patient is unconsciou s). hydrocortis 2021-0 Yes [id number] 10mg Take 1 Univers one 10 mg 6-29 tablet by ity o f tablet 00:00: mouth 2 (two) Medical times Branch daily. hydrocortis 0 Yes [id number] 100mg 2 mL by Univers one sod 6-29 Intramuscu ity of succ 00:00: lar route [place] (SOLU-AMY 00 as needed Med ical F) 100 mg (for when Branc h injection patient is unconsciou s). hydrocortis 2021-0 Yes [id number] 10mg Take 1 Univers one 10 mg 6-29 tablet by ity o f tablet 00:00: mouth 2 (two) Medical times Branch daily. hydrocortis 2021-0 Yes [id number] 100mg 2 mL by Univers one sod 6-29 Intramuscu ity of succ 00:00: lar route [place] (SOLU-AMY 00 as needed Med ical F) 100 mg (for when Branc h injection patient is unconsciou s). hydrocortis 2021-0 Yes [id number] 10mg Take 1 Univers one 10 mg 6-29 tablet by ity o f tablet 00:00: mouth 2 (two) Medical times Branch daily. hydrocortis 2021-0 Yes [id number] 100mg 2 mL by Univers one sod 6-29 Intramuscu ity of succ 00:00: lar route [place] (SOLU-AMY 00 as needed Med ical F) 100 mg (for when Branc h injection patient is unconsciou s). hydrocortis 0 Yes [id number] 10mg Take 1 Univers one 10 mg 6-29 tablet by ity o f tablet 00:00: mouth 2 (two) Medical times Branch daily. hydrocortis 0 Yes [id number] 100mg 2 mL by Univers one sod 6-29 Intramuscu ity of succ 00:00: lar route [place] (SOLU-AMY 00 as needed Med ical F) 100 mg (for when Branc h injection patient is unconsciou s). hydrocortis 0 Yes [id number] 10mg Take 1 Univers one 10 mg 6-29 tablet by ity o f tablet 00:00: mouth 2 (two) Medical times Branch daily. hydrocortis 0 Yes [id number] 100mg 2 mL by Univers one sod 6-29 Intramuscu ity of succ 00:00: lar route [place] (SOLU-AMY 00 as needed Med ical F) 100 mg (for when Branc h injection patient is unconsciou s). hydrocortis 2021-0 Yes [id number] 10mg Take 1 Univers one 10 mg 6-29 tablet by ity o f tablet 00:00: mouth 2 (two) Medical times Branch daily. hydrocortis 0 Yes [id number] 100mg 2 mL by Univers one sod 6-29 Intramuscu ity of succ 00:00: lar route [place] (SOLU-AMY 00 as needed Med ical F) 100 mg (for when Branc h injection patient is unconsciou s). hydrocortis 2021-0 Yes [id number] 10mg Take 1 Univers one 10 mg 6-29 tablet by ity o f tablet 00:00: mouth 2 (two) Medical times Branch daily. hydrocortis 2021-0 Yes [id number] 100mg 2 mL by Univers one sod 6-29 Intramuscu ity of succ 00:00: lar route [place] (SOLU-AMY 00 as needed Med ical F) 100 mg (for when Branc h injection patient is unconsciou s). hydrocortis 2021-0 Yes [id number] 10mg Take 1 Univers one 10 mg 6-29 tablet by ity o f tablet 00:00: mouth 2 (two) Medical times Branch daily. hydrocortis 0 Yes [id number] 100mg 2 mL by Univers one sod 6-29 Intramuscu ity of succ 00:00: lar route [place] (SOLU-AMY 00 as needed Med ical F) 100 mg (for when Branc h injection patient is unconsciou s). hydrocortis 0 Yes [id number] 10mg Take 1 Univers one 10 mg 6-29 tablet by ity o f tablet 00:00: mouth 2 (two) Medical times Branch daily. hydrocortis 0 Yes [id number] 100mg 2 mL by Univers one sod 6-29 Intramuscu ity of succ 00:00: lar route [place] (SOLU-AMY 00 as needed Med ical F) 100 mg (for when Branc h injection patient is unconsciou s). hydrocortis 2021-0 Yes [id number] 10mg Take 1 Univers one 10 mg 6-29 tablet by ity o f tablet 00:00: mouth 2 (two) Medical times Branch daily. hydrocortis 0 Yes [id number] 100mg 2 mL by Univers one sod 6-29 Intramuscu ity of succ 00:00: lar route [place] (SOLU-AMY 00 as needed Med ical F) 100 mg (for when Branc h injection patient is unconsciou s). hydrocortis 2021-0 Yes [id number] 10mg Take 1 Univers one 10 mg 6-29 tablet by ity o f tablet 00:00: mouth 2 (two) Medical times Branch daily. hydrocortis 0 Yes [id number] 100mg 2 mL by Univers one sod 6-29 Intramuscu ity of succ 00:00: lar route [place] (SOLU-AMY 00 as needed Med ical F) 100 mg (for when Branc h injection patient is unconsciou s). hydrocortis Yes [id number] 10mg Take 1 Univers one 10 mg 6-29 tablet by ity o f tablet 00:00: mouth 2 [place] 00 (two) Medical times Branch daily. hydrocortis Yes [id number] 100mg 2 mL by Univers one sod 6-29 Intramuscu ity of succ 00:00: lar route [place] (SOLU-AMY 00 as needed Med ical F) 100 mg (for when Branc h injection patient is unconsciou s). hydrocortis Yes [id number] 10mg Take 1 Univers one 10 mg 6-29 tablet by ity o f tablet 00:00: mouth 2 [place] 00 (two) Medical times Branch daily. topiramate Yes [id number] 25mg Take 1 Univers 25 mg 6-10 tablet by ity of tablet 00:00: mouth [place] 00 daily. Medical Branch topiramate Yes [id number] 25mg Take 1 Univers 25 mg 6-10 tablet by ity of tablet 00:00: mouth [place] 00 daily. Medical Branch topiramate Yes [id number] 25mg Take 1 Univers 25 mg 6-10 tablet by ity of tablet 00:00: mouth [place] 00 daily. Medical Branch topiramate 2021- No [id number] 25mg Take 1 Univers 25 mg 6-10 09-30 tablet by ity of tablet 00:00: 00:00 mouth [place] 00 :00 daily. Medical Branch topiramate 2021-0 2021- No [id number] 25mg Take 1 Univers 25 mg 6-10 09-30 tablet by ity of tablet 00:00: 00:00 mouth [place] 00 :00 daily. Medical Branch topiramate 2021-0 2021- No [id number] 25mg Take 1 Univers 25 mg 6-10 09-30 tablet by ity of tablet 00:00: 00:00 mouth [place] 00 :00 daily. Medical Branch PHENTERMINE Yes [id number] TAKE 1 Univers 37.5 mg 6-07 CAPSULE BY ity of capsule 00:00: MOUTH [place] 00 EVERY DAY Medical IN THE Branch MORNING PHENTERMINE 2021-0 Yes [id number] TAKE 1 Univers 37.5 mg 6-07 CAPSULE BY ity of capsule 00:00: MOUTH [place] 00 EVERY DAY Medical IN THE [place] MORNING PHENTERMINE 2021- No [id number] TAKE 1 Univers 37.5 mg 6-07 08-28 CAPSULE BY ity o f capsule 00:00: 00:00 MOUTH [place] 00 :00 EVERY DAY Medical IN THE [place] MORNING PHENTERMINE 2021- No [id number] TAKE 1 Univers 37.5 mg 6-07 08-28 CAPSULE BY ity o f capsule 00:00: 00:00 MOUTH [place] 00 :00 EVERY DAY Medical IN THE [place] MORNING PHENTERMINE 2021- No [id number] TAKE 1 Univers 37.5 mg 6-07 08-28 CAPSULE BY ity o f capsule 00:00: 00:00 MOUTH [place] 00 :00 EVERY DAY Medical IN THE [facility] LEVOTHYROXI Yes [id number] TAKE 1 Univers [place] 175 mcg 3-23 TABLET ity of tablet 00:00: DAILY [place] 00 SATURDAY [facility] THROUGH [place] SATURDAY, AND 1/2 TABLET ON SATURDAY. LEVOTHYROXI 2021- No [id number] TAKE 1 Univers [place] 175 mcg 3-23 07-30 TABLET ity of tablet 00:00: 00:00 DAILY [place] 00 :00 SATURDAY [facility] THROUGH [place] SATURDAY, AND 1/2 TABLET ON SATURDAY. LEVOTHYROXI 2021- No [id number] TAKE 1 [facility] [place] 175 mcg 3-23 07-30 TABLET ity of tablet 00:00: 00:00 DAILY [place] 00 :00 SATURDAY [facility] THROUGH [place] SATURDAY, AND 1/2 TABLET ON SATURDAY. LEVOTHYROXI 2021- No [id number] TAKE 1 [facility] [place] 175 mcg 3-23 07-30 TABLET ity of tablet 00:00: 00:00 DAILY [place] 00 :00 SATURDAY [facility] THROUGH [place] SATURDAY, AND 1/2 TABLET ON SATURDAY. norethindro 2020-02 Yes [id number] 1{tbl} Take 1 Univers ne 0.35 mg 1-22 tablet by ity of tablet 00:00: mouth [place] [address] [facility] norethindro 2020-02 Yes [id number] 1{tbl} Take 1 Univers ne 0.35 mg 1-22 tablet by ity of tablet 00:00: mouth [place] 00 daily. [facility] 2020-02 Yes [id number] 1{tbl} Take 1 Univers ne 0.35 mg 1-22 tablet by ity of tablet 00:00: mouth [place] 00 daily. [facility] 2020-02 Yes [id number] 1{tbl} Take 1 Univers ne 0.35 mg 1-22 tablet by ity of tablet 00:00: mouth [place] 00 daily. [facility] 2020-02 Yes [id number] 1{tbl} Take 1 Univers ne 0.35 mg 1-22 tablet by ity of tablet 00:00: mouth [place] 00 daily. [facility] 2020-02 Yes [id number] 1{tbl} Take 1 Univers ne 0.35 mg 1-22 tablet by ity of tablet 00:00: mouth [place] 00 daily. [facility] 2020-02 Yes [id number] 1{tbl} Take 1 Univers ne 0.35 mg 1-22 tablet by ity of tablet 00:00: mouth [place] 00 daily. [facility] 2020-02 Yes [id number] 1{tbl} Take 1 Univers ne 0.35 mg 1-22 tablet by ity of tablet 00:00: mouth [place] 00 daily. [facility] 2020-02 Yes [id number] 1{tbl} Take 1 Univers ne 0.35 mg 1-22 tablet by ity of tablet 00:00: mouth [place] 00 daily. [facility] 2020-02 Yes [id number] 1{tbl} Take 1 Univers ne 0.35 mg 1-22 tablet by ity of tablet 00:00: mouth [place] 00 daily. [facility] 2020-02 Yes [id number] 1{tbl} Take 1 Univers ne 0.35 mg 1-22 tablet by ity of tablet 00:00: mouth [place] 00 daily. [facility] 2020-02 Yes [id number] 1{tbl} Take 1 Univers ne 0.35 mg 1-22 tablet by ity of tablet 00:00: mouth [place] 00 daily. [facility] 2020-02 Yes [id number] 1{tbl} Take 1 Univers ne 0.35 mg 1-22 tablet by ity of tablet 00:00: mouth [place] 00 daily. [facility] Yes [id number] 1{tbl} Take 1 Univers ne 0.35 mg 1-22 tablet by ity of tablet 00:00: mouth [place] 00 daily. [facility]02 Yes [id number] 1{tbl} Take 1 Univers ne 0.35 mg 1-22 tablet by ity of tablet 00:00: mouth [place] 00 daily. [facility]02 Yes [id number] 1{tbl} Take 1 Univers ne 0.35 mg 1-22 tablet by ity of tablet 00:00: mouth [place] 00 daily. [facility]02 Yes [id number] 1{tbl} Take 1 Univers ne 0.35 mg 1-22 tablet by ity of tablet 00:00: mouth [place] 00 daily. Medical Branch [facility] 2020-02 Yes [id number] 1{tbl} Take 1 Univers ne 0.35 mg 1-22 tablet by ity of tablet 00:00: mouth [place] 00 daily. [facility] Yes [id number] 1{tbl} Take 1 Univers ne 0.35 mg 1-22 tablet by ity of tablet 00:00: mouth [place] 00 daily. [facility]02 Yes [id number] 1{tbl} Take 1 Univers ne 0.35 mg 1-22 tablet by ity of tablet 00:00: mouth [place] 00 daily. [facility] Yes [id number] 1{tbl} Take 1 Univers ne 0.35 mg 1-22 tablet by ity of tablet 00:00: mouth [place] 00 daily. Medical Branch CITALOPRAM 2020-02 Yes Take by Univ ers HYDROBROMID -11 mouth ity of E (CELEXA 13:09: daily. [place] ORAL) 42 Medical Branch OXCARBAZEPI 2020-02 Yes Take by Uni vers NE -11 mouth 2 ity of (TRILEPTAL 13:09: (two) [place] ORAL) 42 times Medical daily. Branch FENTanyl 25 2020-02 Yes 1{patch Apply 1 Univers mcg/hr 03-07 } Patch to ity of patch 13:09: skin every [place] 42 72 [facility] rOPINIRole 2020-02 Yes 1mg Take 1 mg Un oskar 1 mg tablet 1-11 by mouth ity of 13:09: at [place] [address] bedtime. Medical Branch CITALOPRAM 2020-02 Yes Take [...] to ity of patch 13:09: skin every [place] [address] 72 [facility]. rOPINIRole 2020-02 Yes 1mg Take 1 mg Un oskar 1 mg tablet 1-11 by mouth ity of 13:09: at [place] [address] bedtime. Medical Branch CITALOPRAM 2020-02 Yes Take [...] to ity of patch 13:09: skin every [place] [address] 72 [facility]. rOPINIRole 2020-02 Yes 1mg Take 1 mg Un oskar 1 mg tablet 1-11 by mouth ity of 13:09: at [place] [address] bedtime. Medical Branch CITALOPRAM 2020-02 Yes Take [...] 13:09: skin every [place] 42 72 [facility]. rOPINIRole 2020-02 Yes 1mg Take 1 mg Un oskar 1 mg tablet 1-11 by mouth ity of 13:09: at [place] [address] bedtime. Medical Branch CITALOPRAM 2020-02 Yes Take [...] to ity of patch 13:09: skin every [place] [address] 72 [facility]. rOPINIRole 2020-02 Yes 1mg Take 1 mg Un oskar 1 mg tablet 1-11 by mouth ity of 13:09: at [place] [address] bedtime. Medical Branch CITALOPRAM 2020-02 Yes Take [...] to ity of patch 13:09: skin every [place] [address] 72 [facility] hours. rOPINIRole 2020-02 Yes 1mg Take 1 mg Un oskar 1 mg tablet 1-11 by mouth ity of 13:09: at [place] [address] bedtime. Medical Branch CITALOPRAM 2020-02 Yes Take [...] to ity of patch 13:09: skin every [place] [address] 72 [facility]. rOPINIRole 2020-02 Yes 1mg Take 1 mg Un oskar 1 mg tablet 1-11 by mouth ity of 13:09: at [place] [address] bedtime. Medical Branch CITALOPRAM 2020-02 Yes Take [...] to ity of patch 13:09: skin every [place] [address] 72 [facility]. rOPINIRole 2020-02 Yes 1mg Take 1 mg Un oskar 1 mg tablet 1-11 by mouth ity of 13:09: at [place] [address] bedtime. Medical Branch CITALOPRAM 2020-02 Yes Take [...] to ity of patch 13:09: skin every [place] [address] 72 [facility]. rOPINIRole 2020-02 Yes 1mg Take 1 mg Un oskar 1 mg tablet 1-11 by mouth ity of 13:09: at [place] [address] bedtime. Medical Branch CITALOPRAM 2020-02 Yes Take [...] to ity of patch 13:09: skin every [place] 42 72 [facility]. rOPINIRole 2020-02 Yes 1mg Take 1 mg Un oskar 1 mg tablet 1-11 by mouth ity of 13:09: at [place] 42 bedtime. Medical Branch CITALOPRAM 2020-02 Yes [...] to ity of patch 13:09: skin every [place] 42 72 [facility]. rOPINIRole 2020-02 Yes 1mg Take 1 mg Un oskar 1 mg tablet 1-11 by mouth ity of 13:09: at [place] [address] bedtime. Medical Branch CITALOPRAM 2020-02 Yes Take [...] to ity of patch 13:09: skin every [place] [address] 72 [facility]. rOPINIRole 2020-02 Yes 1mg Take 1 mg Un oskar 1 mg tablet 1-11 by mouth ity of 13:09: at [place] [address] bedtime. Medical Branch CITALOPRAM 2020-02 Yes Take [...] to ity of patch 13:09: skin every [place] 42 72 [facility]. rOPINIRole 2020-02 Yes 1mg Take 1 mg Un oskar 1 mg tablet 1-11 by mouth ity of 13:09: at [place] 42 bedtime. Medical Branch CITALOPRAM 2020-02 Yes [...] to ity of patch 13:09: skin every [place] 42 72 [facility]. rOPINIRole 2020-02 Yes 1mg Take 1 mg Un oskar 1 mg tablet 1-11 by mouth ity of 13:09: at [place] [address] bedtime. Medical Branch CITALOPRAM 2020-02 Yes Take [...] to ity of patch 13:09: skin every [place] 42 72 [facility]. rOPINIRole 2020-02 Yes 1mg Take 1 mg Un oskar 1 mg tablet 1-11 by mouth ity of 13:09: at [place] [address] bedtime. Medical Branch CITALOPRAM 2020-02 Yes Take [...] 13:09: skin every [place] 42 72 [facility]. rOPINIRole 2020-02 Yes 1mg Take 1 mg Un oskar 1 mg tablet 1-11 by mouth ity of 13:09: at [place] 42 bedtime. Medical Branch CITALOPRAM 2020-02 Yes [...] to ity of patch 13:09: skin every [place] 42 72 [facility]. rOPINIRole 2020-02 Yes 1mg Take 1 mg Un oskar 1 mg tablet 1-11 by mouth ity of 13:09: at [place] [address] bedtime. Medical Branch CITALOPRAM 2020-02 Yes Take [...] to ity of patch 13:09: skin every [place] 42 72 [facility]. rOPINIRole 2020-02 Yes 1mg Take 1 mg Un oskar 1 mg tablet 1-11 by mouth ity of 13:09: at [place] [address] bedtime. Medical Branch CITALOPRAM 2020-02 Yes Take [...] to ity of patch 13:09: skin every [place] [address] 72 Medical ([facility] Branch wo) hours. rOPINIRole 2020-02 Yes 1mg Take 1 mg Un oskar 1 mg tablet 1-11 by mouth ity of 13:09: at [place] [address] bedtime. Medical Branch CITALOPRAM 2020-02 Yes Take [...] to ity of patch 13:09: skin every [place] [address] 72 [facility]. rOPINIRole 2020-02 Yes 1mg Take 1 mg Un oskar 1 mg tablet 1-11 by mouth ity of 13:09: at [place] [address] bedtime. Medical Branch CITALOPRAM 2020-02 Yes Take [...] to ity of patch 13:09: skin every [place] [address] 72 Medical ([facility] Branch wo) hours. rOPINIRole 2020-02 Yes 1mg Take 1 mg Un oskar 1 mg tablet 1-11 by mouth ity of 13:09: at [place] [address] bedtime. Medical Branch Movantik Movantik 2019-0 2019- No Cinda 1 tablet Common 2-26 06-26 [place] [facility] 00:00: 00:00 morning - [facility] 00 :00 [facility] Pantoprazol Pantoprazol 2017-0 Yes Cinda 1 tablet Common e Sodium e Sodium 8-31 [place] Sp que 00:00: - [facility] 00 [facility] Chlordiazep Chlordiazep 2018-0 2019- No Cinda 1 capsule Common oxide-Clidi oxide-Clidi 8- 06-26 [place] nium nium 00:00: 00:00 - [facility] 00 :00 [facility] ondansetron 2017- Yes Univer s 4 mg 1-02 ity of disintegrat 00:00: [place] ing tablet 00 Medical [place] ondansetron 2017- Yes Univer s 4 mg 1-02 ity of disintegrat 00:00: [place] ing tablet 00 Medical [place] ondansetron 2017- Yes Univer s 4 mg 1-02 ity of disintegrat 00:00: [place] ing tablet 00 Medical [place] ondansetron 2017- Yes Univer s 4 mg 1-02 ity of disintegrat 00:00: [place] ing tablet [address] [facility] ondansetron 2017- Yes Univer s 4 mg - ity of disintegrat 00:00: [place] ing tablet [address] [facility] ondansetron 2017- Yes Univer s 4 mg 1- ity of disintegrat 00:00: [place] ing tablet [address] [facility] ondansetron 2017- Yes Univer s 4 mg 1-02 ity of disintegrat 00:00: [place] ing tablet [address] [facility] ondansetron 2017- Yes Univer s 4 mg 1-02 ity of disintegrat 00:00: [place] ing tablet 00 [facility] Branch ondansetron 2017- Yes Univer s 4 mg 1-02 ity of disintegrat 00:00: [place] ing tablet [address] [facility] ondansetron 2017- Yes Univer s 4 mg 1-02 ity of disintegrat 00:00: [place] ing tablet [address] [facility] ondansetron 2017- Yes Univer s 4 mg 1-02 ity of disintegrat 00:00: [place] ing tablet 00 Medical [place] ondansetron 2017- Yes Univer s 4 mg 1-02 ity of disintegrat 00:00: [place] ing tablet 00 Medical Branch ondansetron 2017- Yes Univer s 4 mg 1-02 ity of disintegrat 00:00: [place] ing tablet 00 Medical [place] ondansetron 2017- Yes Univer s 4 mg 1-02 ity of disintegrat 00:00: [place] ing tablet Medical [place] ondansetron 2017- Yes Univer s 4 mg 1-02 ity of disintegrat 00:00: [place] ing tablet Medical Branch ondansetron 2017 Yes Univer s 4 mg 1-02 ity of disintegrat 00:00: [place] ing tablet Medical Branch ondansetron 2016-02 Yes Univer s 4 mg 1-02 ity of disintegrat 00:00: [place] ing tablet Medical Branch ondansetron 2016-02 Yes Univer s 4 mg 1- ity of disintegrat 00:00: [place] ing tablet Medical Branch ondansetron 2017 Yes Univer s 4 mg 1-02 ity of disintegrat 00:00: [place] ing tablet Medical Branch ondansetron 2017 Yes Univer s 4 mg 1- ity of disintegrat 00:00: [place] ing tablet Medical Branch ondansetron 2017 Yes Univer s 4 mg 1- ity of disintegrat 00:00: [place] ing tablet Medical Branch LYRICA 100 2015-02 Yes Univers mg capsule 2-06 ity of 00:00: [place] [facility] LYRICA [...] mg capsule 2-06 ity of 00:00: [place] [facility] LYRICA [...] ity of 00:00: [place] 00 Medical Branch SAVELEWIS 50 2015-02 Yes 25mg Take 25 mg [...] (two) [place] 00 times Medical daily. Mark Vtial 2015-02 Yes 25mg Take 25 mg U [...] by mouth 2 ity of 00:00: (two) [place] 00 times Medical daily. Makr FROST 50 2015-02 Yes 25mg Take 25 mg U nivers mg tablet -03 by mouth 2 ity of 00:00: (two) [place] 00 times Medical daily. Mark Neurontin Neurontin Yes Cinda 1 capsule Common [facility] Amitriptyli Amitriptyli Yes Cinda 1 tablet Common ne [facility] Topamax Topamax Yes [facility] Zo[facility] Zofran [facility] Cinda 1 tablet Common [facility] Ultram Ultram Yes Cinda 1 tablet Common [facility] as needed [facility] Lyrica Lyrica Yes Cinda 1 capsule Commo n [facility] Robaxin Robaxin Yes Cinda 1.5 Common [place] tablets [facility] Trazodone Trazodone Yes Cinda 1 tablet Common HCl HCl [facility] at bedtime Spir it as needed [facility] Protonix Protonix Yes Cinda 1 tablet Co mmon [facility] James Frost Yes Cinda 1 tablet Comm on [facility] Synthroid Synthroid Yes Cinda 1 tablet Common [place] on an [facility] empty - [facility] stomach in [facility] Imitrex Imitrex Yes Cinda 1 tablet Comm on [place] as needed [facility] t [facility] Citalopram Citalopram Yes Cinda 1 tablet Common Hydrobromid Hydrobromid [facility] e e [facility] Clonazepam Clonazepam Yes Cinda 1 tablet Common [facility] Cyclobenzap Cyclobenzap Yes Cinda 1 tablet Common rine HCl rine HCl [place] as needed [facility] Furosemide Furosemide Yes Cinda 1 tablet Common [place] as needed Spiri t for leg - [facility] swelling [facility] Effexor XR Effexor XR Yes Cinda 1 capsule Common [place] with food Spiri t - [facility] Immunizations Ordered Filled Immunization Date Status Comments Sour e Immunization Name Name Influenza Virus 2021-01-05 Completed Universit y of Vaccine Quad IM, 00:00:00 [facility] dical Preserv and ABX Branch Free 6 MO-64 YRS Pneumococcal 13 2021-01-05 Completed Universit y of Conjugate, PCV13 00:00:00 [facility] dical (Prevnar 13) Branch [facility] 2021-01-05 Completed University of 00:00:00 [facility] Influenza Virus 2021-01-05 Completed Universit y of Vaccine Quad IM, 00:00:00 [facility] dical Preserv and ABX Branch Free 6 MO-64 YRS Pneumococcal 13 2021-01-05 Completed Universit y of Conjugate, PCV13 00:00:00 [facility] dical (Prevnar 13) Branch [facility] 2021-01-05 Completed University of 00:00:00 [facility] Influenza Virus 2021-01-05 Completed Universit y of Vaccine Quad IM, 00:00:00 [facility] dical Preserv and ABX Branch Free 6 MO-64 YRS Pneumococcal 13 2021-01-05 Completed Universit y of Conjugate, PCV13 00:00:00 [facility] dical (Prevnar 13) Branch [facility] 2021-01-05 Completed University of 00:00:00 [facility] Influenza Virus 2021-01-05 Completed Universit y of Vaccine Quad IM, 00:00:00 [facility] dical Preserv and ABX Branch Free 6 MO-64 YRS Pneumococcal 13 2021-01-05 Completed Universit y of Conjugate, PCV13 00:00:00 [facility] dical (Prevnar 13) Branch [facility] 2021-01-05 Completed University of 00:00:00 [facility] Influenza Virus 2021-01-05 Completed Universit y of Vaccine Quad IM, 00:00:00 [facility] dical Preserv and ABX Branch Free 6 MO-64 YRS Pneumococcal 13 2021-01-05 Completed Universit y of Conjugate, PCV13 00:00:00 [facility] dical (Prevnar 13) Branch [facility] 2021-01-05 Completed University of 00:00:00 [facility] Influenza Virus 2021-01-05 Completed Universit y of Vaccine Quad IM, 00:00:00 [facility] dical Preserv and ABX Branch Free 6 MO-64 YRS Pneumococcal 13 2021-01-05 Completed Universit y of Conjugate, PCV13 00:00:00 [facility] dical (Prevnar 13) Branch TDAP 2021-01-05 Completed University of 00:00:00 [facility] Influenza Virus 2021-01-05 Completed Universit y of Vaccine Quad IM, 00:00:00 [facility] dical Preserv and ABX Branch Free 6 MO-64 YRS Pneumococcal 13 2021-01-05 Completed Universit y of Conjugate, PCV13 00:00:00 [facility] dical (Prevnar 13) Branch TDAP 2021-01-05 Completed University of 00:00:00 [facility] Influenza Virus 2021-01-05 Completed Universit y of Vaccine Quad IM, 00:00:00 [facility] dical Preserv and ABX Branch Free 6 MO-64 YRS Pneumococcal 13 2021-01-05 Completed Universit y of Conjugate, PCV13 00:00:00 [facility] dical (Prevnar 13) Branch TDAP 2021-01-05 Completed University of 00:00:00 [facility] Influenza Virus 2021-01-05 Completed Universit y of Vaccine Quad IM, 00:00:00 [facility] dical Preserv and ABX Branch Free 6 MO-64 YRS Pneumococcal 13 2021-01-05 Completed Universit y of Conjugate, PCV13 00:00:00 [facility] dical (Prevnar 13) Branch TDAP 2021-01-05 Completed University of 00:00:00 [facility] Influenza Virus 2021-01-05 Completed Universit y of Vaccine Quad IM, 00:00:00 [facility] dical Preserv and ABX Branch Free 6 MO-64 YRS Pneumococcal 13 2021-01-05 Completed Universit y of Conjugate, PCV13 00:00:00 [facility] dical (Prevnar 13) Branch TDAP 2021-01-05 Completed University of 00:00:00 [facility] Influenza Virus 2021-01-05 Completed Universit y of Vaccine Quad IM, 00:00:00 [facility] dical Preserv and ABX Branch Free 6 MO-64 YRS Pneumococcal 13 2021-01-05 Completed Universit y of Conjugate, PCV13 00:00:00 [facility] dical (Prevnar 13) Branch TDAP 2021-01-05 Completed University of 00:00:00 [facility] Influenza Virus 2021-01-05 Completed Universit y of Vaccine Quad IM, 00:00:00 [facility] dical Preserv and ABX Branch Free 6 MO-64 YRS Pneumococcal 13 2021-01-05 Completed Universit y of Conjugate, PCV13 00:00:00 [facility] dical (Prevnar 13) Branch TDAP 2021-01-05 Completed University of 00:00:00 [facility] Influenza Virus 2021-01-05 Completed Universit y of Vaccine Quad IM, 00:00:00 [facility] dical Preserv and ABX Branch Free 6 MO-64 YRS Pneumococcal 13 2021-01-05 Completed Universit y of Conjugate, PCV13 00:00:00 [facility] dical (Prevnar 13) Branch [facility] 2021-01-05 Completed University of 00:00:00 [facility] Influenza Virus 2021-01-05 Completed Universit y of Vaccine Quad IM, 00:00:00 [facility] dical Preserv and ABX Branch Free 6 MO-64 YRS Pneumococcal 13 2021-01-05 Completed Universit y of Conjugate, PCV13 00:00:00 [facility] dical (Prevnar 13) Branch [facility] 2021-01-05 Completed University of 00:00:00 [facility] Influenza Virus 2021-01-05 Completed Universit y of Vaccine Quad IM, 00:00:00 [facility] dical Preserv and ABX Branch Free 6 MO-64 YRS Pneumococcal 13 2021-01-05 Completed Universit y of Conjugate, PCV13 00:00:00 [facility] dical (Prevnar 13) Branch [facility] 2021-01-05 Completed University of 00:00:00 [facility] Influenza Virus 2021-01-05 Completed Universit y of Vaccine Quad IM, 00:00:00 [facility] dical Preserv and ABX Branch Free 6 MO-64 YRS Pneumococcal 13 2021-01-05 Completed Universit y of Conjugate, PCV13 00:00:00 [facility] dical (Prevnar 13) Branch [facility] 2021-01-05 Completed University of 00:00:00 [facility] Influenza Virus 2021-01-05 Completed Universit y of Vaccine Quad IM, 00:00:00 [facility] dical Preserv and ABX Branch Free 6 MO-64 YRS Pneumococcal 13 2021-01-05 Completed Universit y of Conjugate, PCV13 00:00:00 [facility] dical (Prevnar 13) Branch TDAP 2021-01-05 Completed University of 00:00:00 [facility] Influenza Virus 2021-01-05 Completed Universit y of Vaccine Quad IM, 00:00:00 [facility] dical Preserv and ABX Branch Free 6 MO-64 YRS Pneumococcal 13 2021-01-05 Completed Universit y of Conjugate, PCV13 00:00:00 [facility] dical (Prevnar 13) Branch [facility] 2021-01-05 Completed University of 00:00:00 [facility] Influenza Virus 2021-01-05 Completed Universit y of Vaccine Quad IM, 00:00:00 [facility] dical Preserv and ABX Branch Free 6 MO-64 YRS Pneumococcal 13 2021-01-05 Completed Universit y of Conjugate, PCV13 00:00:00 [facility] dical (Prevnar 13) Branch [facility] 2021-01-05 Completed University of 00:00:00 [facility] Influenza Virus 2021-01-05 Completed Universit y of Vaccine Quad IM, 00:00:00 [facility] dical Preserv and ABX Branch Free 6 MO-64 YRS Pneumococcal 13 2021-01-05 Completed Universit y of Conjugate, PCV13 00:00:00 [facility] dical (Prevnar 13) Branch [facility] 2021-01-05 Completed University of 00:00:00 [facility] Influenza Virus 2021-01-05 Completed Universit y of Vaccine Quad IM, 00:00:00 [place] [facility] [facility] dical Preserv and ABX Branch Free 6 MO-64 YRS Pneumococcal 13 2021-01-05 Completed Universit y of Conjugate, PCV13 00:00:00 [facility] dical (Prevnar 13) Branch [facility] 2021-01-05 Completed University of 00:00:00 [facility] SARS-COV-2 COVID-19 2020-10-10 Completed Unive rsity of PFIZER VACCINE 00:00:00 [facility] SARS-COV-2 COVID-19 2020-10-10 Completed Unive rsity of PFIZER VACCINE 00:00:00 [facility] SARS-COV-2 COVID-19 2020-10-10 Completed Unive rsity of PFIZER VACCINE 00:00:00 [place] [facility] SARS-COV-2 COVID-19 2020-10-10 Completed Unive rsity of PFIZER VACCINE 00:00:00 [facility] Branch SARS-COV-2 COVID-19 2020-06-25 Completed Unive rsity of PFIZER VACCINE 00:00:00 [facility] Branch SARS-COV-2 COVID-19 2020-06-25 Completed Unive rsity of PFIZER VACCINE 00:00:00 [facility] Branch SARS-COV-2 COVID-19 2020-06-25 Completed Unive rsity of PFIZER VACCINE 00:00:00 [facility] Branch SARS-COV-2 COVID-19 2020-06-25 Completed Unive rsity of PFIZER VACCINE 00:00:00 [facility] Branch SARS-COV-2 COVID-19 2020-06-25 Completed Unive rsity of PFIZER VACCINE 00:00:00 [facility] Branch SARS-COV-2 COVID-19 2020-06-25 Completed Unive rsity of PFIZER VACCINE 00:00:00 [facility] Branch SARS-COV-2 COVID-19 2020-06-25 Completed Unive rsity of PFIZER VACCINE 00:00:00 [facility] Branch SARS-COV-2 COVID-19 2020-06-25 Completed Unive rsity of PFIZER VACCINE 00:00:00 [facility] Branch SARS-COV-2 COVID-19 2020-06-25 Completed Unive rsity of PFIZER VACCINE 00:00:00 [facility] Branch SARS-COV-2 COVID-19 2020-06-25 Completed Unive rsity of PFIZER VACCINE 00:00:00 [facility] Branch SARS-COV-2 COVID-19 2020-06-25 Completed Unive rsity of PFIZER VACCINE 00:00:00 [facility] Branch SARS-COV-2 COVID-19 2020-06-25 Completed Unive rsity of PFIZER VACCINE 00:00:00 [facility] Branch SARS-COV-2 COVID-19 2020-06-25 Completed Unive rsity of PFIZER VACCINE 00:00:00 [facility] SARS-COV-2 COVID-19 2020-06-25 Completed Unive rsity of PFIZER VACCINE 00:00:00 [facility] SARS-COV-2 COVID-19 2020-06-25 Completed Unive rsity of PFIZER VACCINE 00:00:00 [facility] Branch SARS-COV-2 COVID-19 2020-06-25 Completed Unive rsity of PFIZER VACCINE 00:00:00 [place] [facility] Branch SARS-COV-2 COVID-19 2020-06-25 Completed Unive rsity of PFIZER VACCINE 00:00:00 [facility] Branch SARS-COV-2 COVID-19 2020-06-25 Completed Unive rsity of PFIZER VACCINE 00:00:00 [facility] Branch SARS-COV-2 COVID-19 2020-06-25 Completed Unive rsity of PFIZER VACCINE 00:00:00 [facility] Branch SARS-COV-2 COVID-19 2020-06-25 Completed Unive rsity of PFIZER VACCINE 00:00:00 [facility] Branch SARS-COV-2 COVID-19 2020-06-25 Completed Unive rsity of PFIZER VACCINE 00:00:00 [facility] Branch SARS-COV-2 COVID-19 2020-06-04 Completed Unive rsity of PFIZER VACCINE 00:00:00 [facility] Branch SARS-COV-2 COVID-19 2020-06-04 Completed Unive rsity of PFIZER VACCINE 00:00:00 [facility] Branch SARS-COV-2 COVID-19 2020-06-04 Completed Unive rsity of PFIZER VACCINE 00:00:00 [facility] SARS-COV-2 COVID-19 2020-06-04 Completed Unive rsity of PFIZER VACCINE 00:00:00 [facility] SARS-COV-2 COVID-19 2020-06-04 Completed Unive rsity of PFIZER VACCINE 00:00:00 [facility] Branch SARS-COV-2 COVID-19 2020-06-04 Completed Unive rsity of PFIZER VACCINE 00:00:00 [facility] Branch SARS-COV-2 COVID-19 2020-06-04 Completed Unive rsity of PFIZER VACCINE 00:00:00 [facility] Branch SARS-COV-2 COVID-19 2020-06-04 Completed Unive rsity of PFIZER VACCINE 00:00:00 [facility] Branch SARS-COV-2 COVID-19 2020-06-04 Completed Unive rsity of PFIZER VACCINE 00:00:00 [facility] Branch SARS-COV-2 COVID-19 2020-06-04 Completed Unive rsity of PFIZER VACCINE 00:00:00 [facility] SARS-COV-2 COVID-19 2020-06-04 Completed Unive rsity of PFIZER VACCINE 00:00:00 [facility] SARS-COV-2 COVID-19 2020-06-04 Completed Unive rsity of PFIZER VACCINE 00:00:00 [facility] SARS-COV-2 COVID-19 2020-06-04 Completed Unive rsity of PFIZER VACCINE 00:00:00 [facility] SARS-COV-2 COVID-19 2020-06-04 Completed Unive rsity of PFIZER VACCINE 00:00:00 [facility] SARS-COV-2 COVID-19 2020-06-04 Completed Unive rsity of PFIZER VACCINE 00:00:00 [facility] SARS-COV-2 COVID-19 2020-06-04 Completed Unive rsity of PFIZER VACCINE 00:00:00 [facility] SARS-COV-2 COVID-19 2020-06-04 Completed Unive rsity of PFIZER VACCINE 00:00:00 [facility] SARS-COV-2 COVID-19 2020-06-04 Completed Unive rsity of PFIZER VACCINE 00:00:00 [facility] SARS-COV-2 COVID-19 2020-06-04 Completed Unive rsity of PFIZER VACCINE 00:00:00 [facility] SARS-COV-2 COVID-19 2020-06-04 Completed Unive rsity of PFIZER VACCINE 00:00:00 [facility] SARS-COV-2 COVID-19 2020-06-04 Completed Unive rsity of PFIZER VACCINE 00:00:00 [facility] Flucelvax - single Flucelvax - single 2019-04-09 Completed [facility] - dose syringe dose syringe 00:00:00 [facility] Influenza Virus 2019-04-09 Completed Universit y of Vaccine Quad IM, 00:00:00 [place] [facility] dical Preserv and ABX Branch Free 6 MO-64 YRS Influenza Virus 2019-04-09 Completed Universit y of Vaccine Quad IM, 00:00:00 [place] [facility] Preserv and ABX Branch Free 6 MO-64 YRS Influenza Virus 2019-04-09 Completed Universit y of Vaccine Quad IM, 00:00:00 [facility] dical Preserv and ABX Branch Free 6 MO-64 YRS Influenza Virus 2018-01-14 Completed Universit y of Vaccine Quad .5 mL 00:00:00 [facility] 6+ MO Branch Influenza Virus 2018-01-14 Completed Universit y of Vaccine 00:00:00 [facility] Influenza Virus 2018-01-14 Completed Universit y of Vaccine Quad .5 mL 00:00:00 [facility] 6+ MO Branch Influenza Virus 2018-01-14 Completed Universit y of Vaccine 00:00:00 [facility] Influenza Virus 2018-01-14 Completed Universit y of Vaccine Quad .5 mL 00:00:00 [facility] 6+ MO Branch Influenza Virus 2018-01-14 Completed Universit y of Vaccine 00:00:00 [facility] Influenza Virus 2018-01-14 Completed Universit y of Vaccine Quad .5 mL 00:00:00 [facility] 6+ MO Branch Influenza Virus 2018-01-14 Completed Universit y of Vaccine 00:00:00 [facility] Influenza Virus 2018-01-14 Completed Universit y of Vaccine Quad .5 mL 00:00:00 [facility] 6+ MO Branch Influenza Virus 2018-01-14 Completed Universit y of Vaccine 00:00:00 [facility] Influenza Virus 2018-01-14 Completed Universit y of Vaccine Quad .5 mL 00:00:00 [facility] 6+ MO Branch Influenza Virus 2018-01-14 Completed Universit y of Vaccine 00:00:00 [facility] Influenza Virus 2018-01-14 Completed Universit y of Vaccine Quad .5 mL 00:00:00 [facility] 6+ MO Branch Influenza Virus 2018-01-14 Completed Universit y of Vaccine 00:00:00 [facility] Influenza Virus 2018-01-14 Completed Universit y of Vaccine Quad .5 mL 00:00:00 [facility] 6+ MO Branch Influenza Virus 2018-01-14 Completed Universit y of Vaccine 00:00:00 [facility] Influenza Virus 2018-01-14 Completed Universit y of Vaccine Quad .5 mL 00:00:00 [facility] 6+ MO Branch Influenza Virus 2018-01-14 Completed Universit y of Vaccine 00:00:00 [facility] Influenza Virus 2018-01-14 Completed Universit y of Vaccine Quad .5 mL 00:00:00 [facility] 6+ MO Branch Influenza Virus 2018-01-14 Completed Universit y of Vaccine 00:00:00 [facility] Influenza Virus 2018-01-14 Completed Universit y of Vaccine Quad .5 mL 00:00:00 [facility] 6+ MO Branch Influenza Virus 2018-01-14 Completed Universit y of Vaccine 00:00:00 [facility] Influenza Virus 2018-01-14 Completed Universit y of Vaccine Quad .5 mL 00:00:00 [facility] 6+ MO Branch Influenza Virus 2018-01-14 Completed Universit y of Vaccine 00:00:00 [facility] Influenza Virus 2018-01-14 Completed Universit y of Vaccine Quad .5 mL 00:00:00 [facility] 6+ MO Branch Influenza Virus 2018-01-14 Completed Universit y of Vaccine 00:00:00 [facility] Influenza Virus 2018-01-14 Completed Universit y of Vaccine Quad .5 mL 00:00:00 [facility] 6+ MO Branch Influenza Virus 2018-01-14 Completed Universit y of Vaccine 00:00:00 [facility] Influenza Virus 2018-01-14 Completed Universit y of Vaccine Quad .5 mL 00:00:00 [facility] 6+ MO Branch Influenza Virus 2018-01-14 Completed Universit y of Vaccine 00:00:00 [facility] Influenza Virus 2018-01-14 Completed Universit y of Vaccine Quad .5 mL 00:00:00 [facility] 6+ MO Branch Influenza Virus 2018-01-14 Completed Universit y of Vaccine 00:00:00 [facility] Influenza Virus 2018-01-14 Completed Universit y of Vaccine Quad .5 mL 00:00:00 [facility] 6+ MO Branch Influenza Virus 2018-01-14 Completed Universit y of Vaccine 00:00:00 [facility] Influenza Virus 2018-01-14 Completed Universit y of Vaccine Quad .5 mL 00:00:00 [facility] 6+ MO Branch Influenza Virus 2018-01-14 Completed Universit y of Vaccine 00:00:00 [facility] Influenza Virus 2018-01-14 Completed Universit y of Vaccine Quad .5 mL 00:00:00 [facility] 6+ MO Branch Influenza Virus 2018-01-14 Completed Universit y of Vaccine 00:00:00 [facility] Influenza Virus 2018-01-14 Completed Universit y of Vaccine Quad .5 mL 00:00:00 [facility] 6+ MO Branch Influenza Virus 2018-01-14 Completed Universit y of Vaccine 00:00:00 [facility] Influenza Virus 2018-01-14 Completed Universit y of Vaccine Quad .5 mL 00:00:00 [facility] IM 6+ MO Branch Influenza Virus 2018-01-14 Completed Universit y of Vaccine 00:00:00 [facility] Vital Signs Vital Name Observation Time Observation Value Comments Source Systolic blood 2022-02-28 17:46:00 128 mm[Hg] Univer sity of pressure [facility] Diastolic blood 2022-02-28 17:46:00 28 mm[Hg] Unive rsity of pressure [facility] Heart rate 2022-02-28 17:46:00 93 /min Universi ty of [facility] Body height 2022-02-28 17:46:00 165.1 cm Universi ty of [facility] Body weight 2022-02-28 17:46:00 115.214 kg Universi ty of [facility] BMI 2022-02-28 17:46:00 42.27 kg/m2 Universi ty of [facility] Systolic blood 2021-11-27 15:19:00 139 mm[Hg] Univer sity of pressure [facility] Diastolic blood 2021-11-27 15:19:00 76 mm[Hg] Unive rsity of pressure [facility] Heart rate 2021-11-27 15:19:00 83 /min Universi ty of [facility] Body height 2021-11-27 15:19:00 165.1 cm Universi ty of [facility] Body weight 2021-11-27 15:19:00 120.385 kg Universi ty of [facility] BMI 2021-11-27 15:19:00 44.16 kg/m2 Universi ty of [facility] Oxygen saturation in 2021-11-27 15:19:00 99 /min University Arterial blood by [facility] Pulse oximetry Branch Systolic blood 2021-08-25 21:45:00 124 mm[Hg] Univer sity of pressure [facility] Diastolic blood 2021-08-25 21:45:00 79 mm[Hg] Unive rsity of pressure [facility] Heart rate 2021-08-25 21:45:00 75 /min Universi ty of [facility] Body temperature 2021-08-25 21:45:00 36.44 Lynsey [facility] Respiratory rate 2021-08-25 21:45:00 18 /min [facility] Body height 2021-08-25 21:45:00 165.1 cm [facility] Body weight 2021-08-25 21:45:00 123.378 kg [facility] BMI 2021-08-25 21:45:00 45.26 kg/m2 [facility] Procedures Procedure Date / Time Performed Performing Clinician Sourdanny e POCT HEMOGLOBIN A1C 2022-02-28 17:58:00 Lanie Lopez [facility] Plan of Care Planned Activity Planned Date Details Comments Source Encounters Start End Encounter Admission Attending Care Care Encounter Source Date/Time Date/Time Type Type Clinicians Facility Department ID 2021-03-22 Outpatient Janak, STLMLC [facility] [id number] Common 12:08:59 Cinda [id number] [facility] 2021-03-22 Outpatient Jamelender, STLMLC [facility] [id number] Common 12:08:27 Cinda [id number] [facility] 2021-03-22 Outpatient Janak, STLMLC [facility] [id number] Common 11:07:35 Cinda [id number] [facility] 2022-07-25 2022-07-25 Lanie Soto [facility] [id number] Univers 00:00:00 00:00:00 HEALTH 350.1.13.10 it y of [place] 4.2.7.2.686 Flip as HESHAM?BLEA [id number] [address] OFFICE [facility] 2022-07-20 2022-07-[address] [facility] 1.2.840.114 [id number] Univers 00:00:00 00:00:00 HEALTH 350.1.13.10 it y of [place] 4.2.7.2.686 Flip as HESHAM?BLEA [id number] [address] OFFICE [facility] 2022-07-02 2022-07-02 Outpatient R LANIE LOPEZ [facility] [id number] Univers 13:30:00 13:30:00 LANIE LOPEZ of [facility] 2022-05-21 2022-05-21 Case Jacki TAPIA 1.2.840.114 [id number] Univers 00:00:00 00:00:00 Management , Pearl FAULKNERY 350.1.13.10 [place] [id number] [address] 2022-05-21 2022-05-21 Telephone Jacki TAPIA 1.2.840.114 [id number] Univers 00:00:00 00:00:00 , Pearl FAULKNERY 350.1.13.10 [place] [id number] [address] 2022-05-04 2022-05-[address] [facility] 1.2.840.114 [id number] Univers 00:00:00 00:00:00 HEALTH 350.1.13.10 it y of [place] 4.2.7.2.686 Flip as HESHAM?BLEA [id number] [address] MEDICAL OFFICE [facility] 2022-03-02 2022-03-[address] [facility] 1.2.840.114 [id number] Univers 00:00:00 00:00:00 PRIMARY 350.1.13.10 [place] [id number] [address] 2022-02-28 2022-02-28 Outpatient R LANIE LOPEZ [facility] [id number] Univers 12:00:00 13:14:28 LANIE LOPEZ [facility] 2022-02-28 2022-02-28 Office Lanie Lopez [facility] 1.2.840.114 [id number] Univers 12:00:00 13:14:28 Visit HEALTH 350.1.13.10 it y of [place] 4.2.7.2.686 Flip as HESHAM?BLEA [phone] [address] MEDICAL OFFICE BUILDING 2022-02-28 2022-02-28 Manager Product Lab, [facility] 1.2.840.1 [id number] Univers 12:30:00 12:45:00 Visit Lanie Lopez [facility] 350.1.13.10 it y of [place] 4.2.7.2.686 Flip as HESHAM?BLEA [id number] [facility] [address] [facility] OFFICE [facility] 2022-01-02 2022-01-02 [facility] [id number] Univers 15:30:00 15:30:00 ARIES cristopher [facility] 2021-12-19 2021-12-19 Patient Lanie Lopez [facility] 1..840.114 [id number] Univers 00:00:00 00:00:00 Secure Msg PRIMARY 350.1.13.10 [place] [id number] [address] 2021-12-15 2021-12-15 Outpatient R YESIKA [facility] [id number] Univers 16:30:00 16:30:00 FAYE itcristopher [facility] 2021-12-15 2021-12-15 [facility] 1..371.315 [id number] Univers 00:00:00 00:00:00 Faye HEALTH 350.1.13.10 it y of [place] 4.2.7.2.686 Flip as HESHAM?BLEA [id number] [facility] [address] [facility] OFFICE [facility] 2021-11-29 2021-11-[address] [facility] 1.2.840.114 [id number] Univers 00:00:00 00:00:00 HEALTH 350.1.13.10 it y of [place] 4.2.7.2.686 Flip as HESHAM?BLEA [id number] [facility] [address] [facility] OFFICE [facility] 2021-11-29 2021-11-29 Refill Lanie Lopez [facility] 1.2.840.114 [id number] Univers 00:00:00 00:00:00 HEALTH 350.1.13.10 it y of [place] 4.2.7.2.686 Flip as HESHAM?BLEA [id number] [address] MEDICAL OFFICE [facility] 2021-11-27 2021-11-27 Outpatient R LANIE LOPEZ [facility] [id number] Univers 10:30:00 11:02:19 LANIE LOPEZ [facility] 2021-11-27 2021-11-27 Office GriceldaLanie [facility] 1.2.840.114 [id number] Univers 10:30:00 11:02:19 Visit HEALTH 350.1.13.10 it y of [place] 4.2.7.2.686 Flip as HESHAM?BLEA [phone] [address] MEDICAL OFFICE [facility] 2021-11-24 2021-11-24 Harrison Estrada [facility] 1.2.709.909 [id number] Univers 00:00:00 00:00:00 [facility] HEALTH 350.1.13.10 it y of [place] 4.2.7.2.686 Flip as HESHAM?BLEA [id number] [address] MEDICAL OFFICE [facility] 2021-10-21 2021-10-[address] [facility] 1.2.840.114 [id number] Univers 00:00:00 00:00:00 HEALTH 350.1.13.10 it y of [place] 4.2.7.2.686 Flip as HESHAM?BLEA [id number] [address] MEDICAL OFFICE [facility] 2021-10-20 2021-10-20 Outpatient DEBRA GARCÍA [facility] [id number] Univers 10:00:00 10:00:00 [facility] 2021-10-05 2021-10-05 Outpatient DEBRA GARCÍA [facility] [id number] Univers 15:00:00 15:00:00 [facility] 2021-09-29 2021-09-29 Outpatient R KIZZY MACKEY [facility] [id number] Univers 15:00:00 15:00:00 KIZZY MACKEY [facility] 2021-09-23 2021-09-23 Harrison Newman [facility] 1.2.840.114 [id number] Univers 00:00:00 00:00:00 Nancy MULTISPEC 350.1.13.10 ity [place] [id number] Shilo solomon [facility]RIC [address] [facility] 2021-09-12 2021-09-12 Outpatient R KEY KIZZY [facility] [id number] Univers 13:00:00 13:00:00 KIZZY MACKEY [facility] 2021-08-29 2021-08-29 Outpatient R LU [facility] [id number] Univers 09:00:00 09:00:00 ARIES [facility] 2021-08-29 2021-08-29 Telephone Lanie Lopez [facility] 1.2.950.645 [id number] Univers 00:00:00 00:00:00 PRIMARY 350.1.13.10 [place] [facility] [id number] Wy anshul [address] 2021-08-25 2021-08-25 Office Debra Irvin [facility] 1.2.840.114 [id number] Univers 15:00:00 15:30:00 [facility] 350.1.13.10 i ty [place] 4[place]2.[place].[address] [place] [address] [phone] Wy [facility] [address] BUILDING 2021-08-25 2021-08-25 Outpatient R DEBRA IRVIN [facility] [id number] Univers 15:00:00 15:00:00 ity of [facility] 2021-08-25 2021-08-25 Outpatient R DEBRA IRVIN [facility] [id number] Univers 15:00:00 15:00:00 ity [facility] 2021-08-23 2021-08-23 Manager Product Lab, Ang - Nadeem [facility] 1.2.840.1 [id number] Univers 09:30:00 09:45:00 Visit Lanie Lopez 350.1.13.10 it y of [place] 4.2.7.2.686 Flip as HESHAM?BLEA [id number] Wy anshul ASENCIOEY [address] MEDICAL OFFICE BUILDING 2021-08-23 2021-08-23 Outpatient R LANIE LOPEZ [facility] [id number] Univers 08:30:00 09:16:15 LANIE LOPEZ [facility] 2021-08-23 2021-08-23 Office Lanie Lopez [facility] 1.2.840.114 [id number] Univers 08:30:00 09:16:15 Visit HEALTH 350.1.13.10 it y of [place] 4.2.7.2.686 Flip as HESHAM?BLEA [id number] [address] OFFICE [facility] 2021-08-03 2021-08-03 [facility] [id number] [id number] Univers 00:00:00 00:00:00 Chema H HEALTH 350.1.13.10 it y of [place] 4.2.7.2.686 Flip as HESHAM?BLEA [id number] [address] 2021-08-02 2021-08-02 Outpatient R ISIDRO [facility] [id number] Univers 16:00:00 [facility]00[facility] 2021-07-[facility] 2021-07-31 [facility] 1.2.405.996 [id number] Univers 00:00:00 00:00:00 Chema H HEALTH 350.1.13.10 it y of [place] 4.2.7.2.686 Flip as HESHAM?BLEA [id number] [address] OFFICE [facility] 2021-07-21 2021-07-21 [facility] 1.2.870.401 [id number] Univers 00:00:00 00:00:00 Chema H HEALTH 350.1.13.10 it y of [place] 4.2.7.2.686 Flip as HSEHAM?BLEA [id number] [address] OFFICE [facility] 2021-07-20 2021-07-20 Harrison [facility] 1.2.840.114 [id number] Univers 00:00:00 00:00:00 Nancy MULTISPEC 350.1.13.10 [place] [id number] [facility] AND SPIVEY [address] [facility] 2021-05-17 2021-05-17 Harrison [facility] [id number] [id number] Univers 00:00:00 00:00:00 Chema MARKS 350.1.13.10 i ty [place] PROF[place] [id number] Wy dical NAL [address] [facility] 2021-03-11 2021-03-11 [facility] 1.2.020.030 [id number] Univers 00:00:00 00:00:00 Chema MARKS 350.1.13.10 [place] PROF[place] [id number] Wy dic[address] 2021-03-08 2021-03-08 [facility] [id number] [id number] Univers 00:00:00 00:00:00 Chema MARKS 350.1.13.10 i [place] [id number] [address] 2021-02-23 2021-02-23 Outpatient JOSE CARTER [facility] [id number] Univers 13:30:00 13:30:00 ity [facility] 2021-02-09 2021-02-09 Orders Doctor GUTIERREZ 1.2.840.114 [id number] Univers 00:00:00 00:00:00 Only Unassigned, LANE 350.1.13.10 ity of [facility] 4.2.7.2.686 Flip as [phone] [place] [address] [address] 2021-01-30 2021-01-30 Outpatient Smooth NAPOLES [facility] [id number] Univers 00:00:00 00:00:00 FAYE jefferson [facility] 2021-01-30 2021-01-30 Outpatient Smooth NAPOLES [facility] [id number] Univers 00:00:00 00:00:00 FAYE jefferson [facility] 2021-01-24 2021-01-24 Telephone Yesika [facility] [id number] [id number] Univers 00:00:00 00:00:00 Faye [facility] 350.1.13.10 it y of [place] 4.2.7.2.686 Flip as HESHAM?BLEA [phone] Wy dical KNEY [address] [facility] OFFICE [facility] 2021-01-17 2021-01-17 Outpatient R KIZZY MACKEY [facility] [id number] Univers 13:00:00 13:00:00 KIZZY MACKEY ity [facility] 2021-01-16 2021-01-16 Manager Product Matheus, Adc Lab Main [facility] 1.2.8 40.114 [id number] Univers 12:41:38 12:56:38 Visit Jose Bowen 350.1.13.10 [facility] 4.2.[place] [id number] Wy dical NAL [address] [facility] 2021-01-16 2021-01-16 Office Jose Bowen [facility] 1.2.840.114 [id number] Univers 10:57:50 11:58:36 Visit Aries Leigh 350.1.13.10 ity of [place] 4.2.7.2.686 [place] [phone] Wy dical NAL 134 [facility] 2021-01-16 2021-01-16 Outpatient R LU [facility] [id number] Univers 10:30:00 11:58:36 ARIES jefferson [facility] 2021-01-16 2021-01-16 Outpatient R LU [facility] [id number] Univers 10:30:00 11:58:36 ARIES jefferson [facility] 2021-01-16 2021-01-16 Orders Doctor GUTIERREZ 1.2.840.114 [id number] Univers 00:00:00 00:00:00 Only Unassigned, LANE 350.1.13.10 ity of [place] [facility] 4.2.7.2.686 Flip as [phone] [address] 2021-01-13 2021-01-13 [facility] 1.2.840.114 [id number] Univers 00:00:00 00:00:00 Secure Msg Nancy MULTISPEC 350.1.13.10 it[place] of [place] [phone] [facility] [address] [facility] 2021-01-10 2021-01-10 Telephone [facility] 1.2.194.434 [id number] Univers 00:00:00 00:00:00 Faye HEALTH 350.1.13.10 it y of [place] 4.2.7.2.686 Flip as HESHAM?BLEA [phone] [address] MEDICAL OFFICE BUILDING 2021-01-06 2021-01-06 Outpatient [facility] [id number] Univers 15:30:00 16:04:28 NANCY jefferson [facility] 2021-01-06 2021-01-[address] [facility] 1.2.840.114 [id number] Univers 15:25:33 16:04:28 Visit Nancy HEALTH 350.1.13.10 it y of [place] 4.2.7.2.686 Flip as HESHAM?BLEA [phone] [address] MEDICAL OFFICE BUILDING 2021-01-06 2021-01-06 Outpatient R [facility] [id number] Univers 15:30:00 15:30:00 NANCY jefferson [facility] 2021-01-06 2021-01-06 Outpatient R [facility] [id number] Univers 15:30:00 15:30:00 NANCY jefferson [facility] 2021-01-05 2021-01-05 Outpatient R [facility] [id number] Univers 14:30:00 23:59:00 FAYE jefferson [facility] 2021-01-05 2021-01-05 [facility] 1.2.840.114 [id number] Univers 14:30:00 23:59:00 Encounter Faye HEALTH 350.1.13.10 ity of [place] 4.2.7.2.686 Flip as HESHAM?BLEA [phone] Me anshul LYONS [address] MEDICAL OFFICE [facility] 2021-01-05 2021-01-05 Outpatient R YESIKA [facility] [id number] Univers 14:30:00 14:30:00 FAYE nuryscristopher [facility] 2021-01-05 2021-01-05 Outpatient R YESIKA [facility] [id number] Univers 14:30:00 14:30:00 FAYE jefferson [facility] 2021-01-05 2021-01-05 Manager Product Lab, Ang - Db [facility] 1.2.840.1 [id number] Univers 14:08:27 14:23:27 Visit Faye Napoles NATHALY 350.1.13.10 ity [facility] 4.2.7.2.686 Flip as HESHAM?BLEA [phone] Wy anshul LYONS [address] [facility] OFFICE [facility] 2021-01-05 2021-01-05 Office [facility] 1.2.840.114 [id number] Univers 12:52:04 14:06:37 Visit Faye MeraJob [place] 350.1.13.10 it y [facility] 4.2.7.2.686 Flip as HESHAM?BLEA [phone] Wy anshul LYONS 0[address] [facility] OFFICE [facility] 2021-01-05 2021-01-05 Orders Doctor MATT 1.2.840.114 [id number] Univers 00:00:00 00:00:00 Only Unassigned, LANE 350.1.13.10 ity of [place] [facility] 4.2.7.2.686 Flip as [phone] [address] 2020-12-23 2020-12-23 Telephone [facility] 1.2.840.114 [id number] Univers 00:00:00 00:00:00 Chema HEALTH 350.1.13.10 it y of [place] 4.2.7.2.686 Flip as HESHAM?BLEA [phone] Wy anshul LYONS [address] MEDICAL OFFICE [facility] 2020-12-12 2020-12-12 Outpatient R YESIKA [facility] [id number] Univers 09:00:00 09:00:00 FAYE nunocristopher [facility] 2020-11-25 2020-11-25 Outpatient Smooth [facility] [id number] Univers 16:00:00 16:00:00 CHEMA nuryscristopher [facility] 2020-11-21 2020-11-21 Outpatient Smooth [facility] [id number] Univers 11:00:00 11:00:00 CHEMA jefferson [facility] 2020-10-28 2020-10-28 Telephone [facility] 1.2.840.114 [id number] Univers 00:00:00 00:00:00 Maribell MULTISPEC 350.1.13.10 it[place] of [place].2.[place] [phone] [address] [facility]ETES CLINIC 2020-10-28 2020-10-28 Telephone [facility] 1.2.840.114 [id number] Univers 00:00:00 00:00:00 Maribell GAVIRIAPEC 350.1.13.10 it[place] of [place] [phone] [address] DIABETES CLINIC 2020-10-24 2020-10-24 [facility] EsparzaDR[facility] 1.2.840.114 [id number] Univers 00:00:00 00:00:00 Senia Marks 350.1.13.10 i ty of [place].2.7.2.[place] [phone] [address] 2020-10-20 2020-10-20 [facility] EstradaDR[facility] [id number] Univers 00:00:00 00:00:00 Chema Marks 350.1.13.10 i [place] of [place] 4.2.7.2.[place] [phone] Wy dic[address] 2020-10-20 2020-10-20 Harrison EstradaDR. [facility]AN [facility] [id number] Univers 00:00:00 00:00:00 Chema Marks 350.1.13.10 i ty of [place] 4.2.7.2.[place] [phone] [address] 2020-07-24 2020-07-24 Refmegan EstradaDR. DAN [facility]. [facility] [id number] Univers 00:00:00 00:00:00 Chema Amandeep Chayito 350.1.13.10 i ty of [place] 4.2.7.2.[place] [phone] [address] 2020-06-25 2020-06-25 Outpatient [facility] [id number] Univers 13:10:00 13:10:00 [facility] 2020-06-04 2020-06-04 Outpatient [facility] [id number] Univers 13:00:00 13:00:00 [facility] 2020-05-25 2020-05-25 Outpatient Smooth [facility] [id number] Univers 15:00:00 15:00:00 [facility] 2020-05-13 2020-05-13 Office Angel[facility]DR[facility] [id number] Univers 10:59:16 12:12:32 Visit Chema Marks 350.1.13.10 i ty of [place] 4.2.7.2.[place] [phone] [address] 2020-05-13 2020-05-13 Outpatient R [facility] [id number] Univers 11:00:00 11:00:00 CHEMA [facility] 2020-05-10 2020-05-10 Outpatient Smooth [facility] [id number] Univers 14:30:00 14:30:00 [facility] 2020-04-24 2020-04-24 Refmegan EstradaDR. [facility] 1.2.202.170 [id number] Univers 00:00:00 00:00:00 Chema Marks 350.1.13.10 i [place] 4.2.7.2.[place] [phone] Wy dical nal [address] 2020-02-15 2020-02-15 Refmegan Estrada [facility] [id number] Univers 00:00:00 00:00:00 Chema Marks 350.1.13.10 i [place] 4.2.7.2.686 [place] [phone] Wy dical nal [address] 2020-02-11 2020-02-11 Refmegan Zhang [facility] 1.2.840.114 [id number] Univers 00:00:00 00:00:00 Fiona MULTISPEC 350.1.13.10 ity of [facility] 4.2.7.2.686 [place] [phone] [facility] [place] [address] [facility] 2020-01-29 2020-01-29 Outpatient R ANGELICA [facility] [id number] Univers 09:00:00 09:00:00 CHEMA jefferson of [facility] 2020-01-28 2020-01-28 Orders MATT Zhang 1.2.840.114 [id number] Univers 00:00:00 00:00:00 Only Fiona SHERMAN 350.1.13.10 it y of [facility] 4.2.7.2.686 Flip as [phone] [facility] [address] 2020-01-27 2020-01-27 Telephone Angelica SDCAROL 1.2.840.114 [id number] Univers 00:00:00 00:00:00 Chema Marks 350.1.13.10 i [place]2.7.2.[place] [phone] Wy dical nal 220 [facility] 2019-12-28 2019-12-28 Refmegan EstradaDR. [facility]AN [facility] 1.2.134.034 [id number] Univers 00:00:00 00:00:00 Chema Marks 350.1.13.10 [place] 4.2.7.2.[place] [phone] Wy dical nal [address] [facility] 2019-12-28 2019-12-28 Refmegan EstradaDR. [facility]AN [facility] [id number] 00:00:00 00:00:00 Chema Riggston 350.1.13.10 [place] 4.2.7.2.686 Professio [phone] [address] 2019-07-28 2019-07-28 Outpatient R [facility] [id number] Univers 08:45:00 08:45:00 ity [facility] 2019-07-24 2019-07-24 [facility]ici [facility] 1.2.840.114 [id number] Univers 08:17:11 11:47:51 ne Visit Chema Bernstein Chayito 350.1.13.10 ity of [place] 4.2.7.2.[place] [phone] Wy dical [address] 2019-07-24 2019-07-24 [facility] 1.2.840.114 [id number] 08:17:11 11:47:51 ne Visit Chema Marks 350.1.13.10 [place] 4.2.7.2.686 Professio [phone] [address] 2019-07-24 2019-07-24 Outpatient R [facility] [id number] Univers 10:30:00 10:30:00 CHEMA jefferson [facility] 2019-07-10 2019-07-10 Harrison ZhangDR. [facility] 1.2.840.114 [id number] Univers 00:00:00 00:00:00 Fiona STOKES 350.1.13.10 it[place] of [place] 4.2.7.2.686 [place] [phone] [facility] AND [address] DIABETES [facility] 2019-07-10 2019-07-10 Refmegan ZhangDR. DAN [facility]. [facility] 1.2.840.114 [id number] 00:00:00 00:00:00 Fiona MULTISPEC 350.1.13.10 [place] 4.2.7.2.686 [place] [phone] [place] [address] DIABETES CLINIC 2019-05-20 2019-05-20 Telemedici IsidroDR[facility] 1.2.840.114 [id number] [facility] 08:37:33 13:26:38 ne Visit Wentong [place] 350.1.13.10 ity of [place] 4.2.7.2.686 [place] [phone] [address] 2019-05-20 2019-05-20 Telemedici IsidroDR[facility] 1.2.840.114 [id number] 08:37:33 13:26:38 ne Visit Fiona [place] 350.1.13.10 [place] 4.2.7.2.686 Professio [phone] [address] 2019-05-20 2019-05-20 Outpatient R [facility] [id number] Univers 09:30:00 09:30:00 WENTONG ity [facility] 2019-05-20 2019-05-20 Telephone [facility] 1.2.978.001 [id number] Univers 00:00:00 00:00:00 Fiona [place] 350.1.13.10 i ty of [place] 4.2.7.2.686 [place] [phone] [address] 2019-05-20 2019-05-20 Telephone [facility]DR[facility] [id number] 00:00:00 00:00:00 Fiona [place] 350.1.13.10 [place] 4.2.7.2.686 Professio [phone] [address] 2019-05-19 2019-05-19 Outpatient R [facility] [id number] Univers 14:15:00 14:15:00 [facility] 2019-05-17 2019-05-17 Refill [facility] 1.2.840.114 [id number] Univers 00:00:00 00:00:00 Leathaong [place] 350.1.13.10 i ty of [place] 4.2.7.2.686 [place] [phone] [address] 2019-05-17 2019-05-17 Refill ZullyDR. [facility] 1.2.840.114 [id number] Univers 00:00:00 00:00:00 Nicole [place] 350.1.13.10 i ty of [place] 4[place]2.7.2.[place] [phone] Me dical [facility] 220 [facility] 2019-05-17 2019-05-17 Refill Zhang, [place] 1.2.840.114 [id number] 00:00:00 00:00:00 Wentong [place] 350.1.13.10 [place] 4.2.7.2.686 Professio [phone] [address] 2019-05-17 2019-05-17 Refill Andrea, [facility] 1.2.840.114 [id number] 00:00:00 00:00:00 Nicole [place] 350.1.13.10 [place] 4.2.7.2.686 Professio [phone] [address] 2019-05-15 2019-05-15 Refill [place] 1.2.840.114 [id number] Univers 00:00:00 00:00:00 Wentong [place] 350.1.13.10 i ty of [place] 4.2.7.2.[place] [phone] Wy dic[address] 2019-05-15 2019-05-15 Refill Zhang, [facility] 1.2.840.114 [id number] 00:00:00 00:00:00 Wentong [place] 350.1.13.10 [place] 4.2.7.2.686 Professio [phone] [address] 2019-04-28 2019-04-28 Refill Zully, [facility] 1.2.840.114 [id number] Univers 00:00:00 00:00:00 Nicole MULTISPEC 350.1.13.10 ity of [place]2.7.2.686 [place] [phone] [facility] AND [address] DIABETES [facility] 2019-04-28 2019-04-28 Refill Zully, [facility] 1.2.840.114 [id number] 00:00:00 00:00:00 Nicole MULTISPEC 350.1.13.10 [place] 4.2.7.2.686 CENTER [phone] AND SPIVEY [facility] DIABETES CLINIC 2019-04-24 2019-04-24 Refill Zhang, [facility] 1.2.840.114 [id number] Univers 00:00:00 00:00:00 Wentong [place] 350.1.13.10 i ty of [place] 4.2.7.2.686 [place] [phone] [address] 2019-04-24 2019-04-24 Refill Zhang, [facility] 1.2.840.114 [id number] 00:00:00 00:00:00 [place]ong [place] 350.1.13.10 [place] 4.2.7.2.686 Professio [phone] [address] 2019-04-12 2019-04-12 Outpatient [facility] [id number] Common 21:42:00 21:42:00 [facility] 2019-04-09 2019-04-09 Outpatient [facility] [id number] Common 10:45:00 10:45:00 [facility] 2019-04-03 2019-04-03 Refill [facility] 1.2.840.114 [id number] Univers 00:00:00 00:00:00 [place]ong [place] 350.1.13.10 i ty of [place] 4.2.7.2.[place] [phone] [address] 2019-04-03 2019-04-03 Refill [facility] 1.2.840.114 [id number] 00:00:00 00:00:00 Wentong [place] 350.1.13.10 [place] 4.2.7.2.686 Professio [phone] [address] 2018-11-05 2018-11-05 Outpatient Smooth LEIGH [facility] [id number] Univers 15:00:00 15:00:00 ARIES jefferson [facility] 2018-10-30 2018-10-30 Telephone ZhangDR. [facility] [id number] Univers 00:00:00 00:00:00 Wentong [place] 350.1.13.10 i ty of [place] 4.2.7.2.[place] [phone] Wy dical nal [address] [facility] 2018-10-30 2018-10-30 [facility] [id number] 00:00:00 00:00:00 Fiona Marks 350.1.13.10 [place] 4.2.7.2.686 Professio [phone] [address] 2018-09-19 2018-09-19 [facility] 1.2.840.114 [id number] Univers 00:00:00 00:00:00 Nicole Marks 350.1.13.10 [facility] 4.2.7.2.[place] [phone] [facility] 2018-09-19 2018-09-19 [facility] 1.2.840.114 [id number] 00:00:00 00:00:00 Nicole Marks 350.1.13.10 [place] 4.2.7.2.686 Professio [phone] [address] 2018-08-06 2018-08-06 [facility] [id number] Common 11:09:00 11:09:[address] [facility] [address] [facility] 2018-04-23 2018-04-23 [facility] [id number] Common 01:12:00 01:12:[address] [facility] [address] [facility] 2018-04-22 2018-04-22 Outpatient [facility] [id number] Common 16:00:00 16:00:[address] [facility] [address] [facility] 2017-10-29 2017-10-29 [facility] [id number] Common 09:06:00 09:06:[address] [facility] [address] [facility] 2017-10-25 2017-10-25 [facility] [id number] Common 23:08:00 23:08:[address] [facility] [address] [facility] 2017-10-25 2017-10-25 Outpatient Collettemónica Col[facility] [id number] Common 15:00:00 15:00:[address] [facility] [address] [facility] it [facility] Results Test Description Test Time Test Comments Results Result Comments Source POCT HEMOGLOBIN A1C TEST 2022-02-28 17:58:00 Test Item Value Reference Range Interpretation Comme nts POCT HBA1C (test code = 4548-4) 4.8 % 4-6 [facility] [id number] 17:58:00 Test Item Value Reference Range Interpretation Comments POCT HBA1C (test code = 4548-4) 4.8 % 4-6 [facility]
--- NOTE | 2022-07-25 18:46 | RAD REPORT ---
EXAM DESCRIPTION: US - Transvaginal Study Probe - 07/25/2022 6:01 pm CLINICAL HISTORY: eval torsion/cyst on righ COMPARISON: Pelvis Complete dated 08/20/2021 TECHNIQUE: Sonographic grayscale and color flow images of the pelvis were obtained through a trans vaginal approach. FINDINGS: The uterus is normal in size, shape and echotexture. The uterus measures 7.8 centimeter in long axis. The endometrial stripe measures 3 mm, normal. Right ovary is enlarged measuring 7.0 x 5.8 x 4.5 centimeter. Closely related lobulated cystic lesion s with thin septations, occupying most of the ovary or adjacent adnexal region. Residual right ovaria n soft tissues are seen at the margin, demonstrating preserved flow on Doppler examination. The left ovary was not visualized, probably due to gas-filled bowel obscuring the left adnexal region . No significant pelvic ascites. IMPRESSION: Right ovarian or adnexal lobulated cystic lesions up to 7 centimeter in collective great est dimension, with thin septations. The findings may relate to a complex right ovarian cyst, versus a dilated and tortuous right fallopian tube. No evidence of torsion. Evaluation is limited by nonvisualization of the left ovary.
[2022-07-25 18:47] LABS: Hematocrit 36.3 % (36.0-45.0); Lymphocytes % 9.5 % (15.3-44.8); MCV 86.6 fL (80-100); MPV 7.3 fL (7.6-11.3); RBC Red Blood Cell Count 4.19 M/uL (3.86-4.86)
[2022-07-25 19:02] LABS: Specific Gravity 1.029 (1.005-1.030)
[2022-07-25 19:02] LABS: Albumin 3.6 g/dL (3.4-5.0); Bilirubin Total 0.4 mg/dL (0.2-1.0); Potassium 3.6 mEq/L (3.5-5.1); Protein, Total 7.8 g/dL (6.4-8.2)
[2022-07-25 19:10] LABS: Specific Gravity 1.029 (1.005-1.030); Urine Bacteria <20 /HPF (<20); Urine Bilirubin NEGATIVE (Negative); Urine Blood 1+ (Negative); Urine Clarity Turbid (Clear); Urine Color Yellow (Yellow); Urine Glucose NEGATIVE (Negative); Urine Mucus 2+ /HPF (None Seen); Urine Protein TRACE (Negative); Urine RBC <5 /HPF (None Seen); Urine Urobilinogen 2+ (Normal); Urine pH 6.5 (5.0-7.0)
[2022-07-25] MEDS ORDERED: METOCLOPRAMIDE 10 MG/2mL INJ ONE (19:50)
[2022-07-25] MEDS ORDERED: KETOROLAC 30 MG/ML INJ ONE (19:50)
[2022-07-25] MEDS ORDERED: DIPHENHYDRAMINE 50 MG/ML VIAL ONE (19:50)
[2022-07-25] MEDS ORDERED: NA CHLORIDE 0.9% 1,000 ML ONE (19:51)
--- NOTE | 2022-07-25 19:52 | ER ---
Nurse's Notes [facility] Name: Lavinia Jarrett Age: 41 yrs Sex: Female : 1980 Arrival Date: 07/25/2022 Time: 17:17 Bed 8 Private MD: Diagnosis: Other ovarian cysts Presentation: 07/25 17:22 Chief complaint: Patient states: "I've been having pains in the right side of my mb9 abdomen that radiates to my back fir the past 4 days. I've been getting migraines and nauseous.". Coronavirus screen: Vaccine status: Patient reports receiving the 2nd dose of the covid vaccine. Ebola Screen: No symptoms or risks identified at this time. Initial Sepsis Screen: Does the patient meet any 2 criteria? No. Patient's initial sepsis screen is negative. Does the patient have a suspected source of infection? No. Patient's initial sepsis screen is negative. Risk Assessment: Do you want to hurt yourself or someone else? Patient reports no desire to harm self or others. Onset of symptoms was July 25, 2022. 17:22 Method Of Arrival: Ambulatory 9 17:22 Acuity: KIKA 3 mb9 Triage Assessment: 17:24 General: Appears in no apparent distress. Behavior is calm, cooperative. Pain: mb9 Complains of pain in abdomen Pain radiates to back. Neuro: Mistry Agitation-Sedation Scale (RASS): 0 - Alert and Calm. Respiratory: Airway is patent Respiratory effort is even, unlabored, Respiratory pattern is regular, symmetrical. GI: Abdomen is obese, Reports nausea. Derm: Skin is pink, warm \\T\\ dry. Musculoskeletal: Range of motion: intact in all extremities. 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 - Social history:: Smoking status: Patient reports the use of cigarette tobacco products, smokes one pack cigarettes per day. Reported history of juuling and/or vaping. Screenin:01 [facility] ED Fall Risk Assessment (Adult) History of falling in the last 3 months, aa9 including since admission No falls in past 3 months (0 pts) Confusion or Disorientation No (0 pts) Intoxicated or Sedated No (0 pts) Impaired Gait No (0 pts) Mobility Assist Device Used No (0 pt) Altered Elimination No (0 pt) Score/Fall Risk Level 0 - 2 = Low Risk Oriented to surroundings, Maintained a safe environment, Educated pt \\T\\ family on fall prevention, incl call for assistance when getting out of bed. Abuse screen: Denies threats or abuse. Denies injuries from another. Nutritional screening: No deficits noted. Tuberculosis screening: No symptoms or risk factors identified. Assessment: 17:24 Reassessment: see triage assessment. mb9 19:56 General: Appears uncomfortable, obese, Behavior is calm, cooperative. Pain: Complains aa9 of pain in suprapubic area, right lower quadrant and left lower quadrant Pain currently is 10 out of 10 on a pain scale. Neuro: Level of Consciousness is awake, alert, obeys commands, Oriented to person, place, time, situation. Cardiovascular: Patient's skin is warm and dry. Respiratory: Airway is patent Respiratory effort is even, unlabored. : Denies burning with urination. Derm: Skin is intact, is healthy with good turgor. 20:29 Reassessment: Patient appears in no apparent distress at this time. discharge pending aa9 fluid administration. Vital Signs: 17:22 BP 132 / 84; Pulse 92; Resp 18; Temp 97.9; Pulse Ox 100% ; Weight 98.88 kg; Height 5 mb9 ft. 5 in. ; Pain 8/10; 19:56 BP 134 / 86; Pulse 64; Resp 18; Temp 98.5(O); Pulse Ox 100% on R/A; aa9 17:22 Body Mass Index 36.28 (98.88 kg, 165.1 cm) mb9 17:22 Pain Scale: Adult mb9 ED Course: 17:20 Patient arrived in ED. mr 17:21 Ezekiel Henderson MD is Attending Physician. bs3 17:22 Arm band placed on. mb9 17:23 Triage completed. mb9 18:03 US Transvaginal Study (Probe) In Process Unspecified. EDMS 18:34 CBC with Diff Sent. bc6 18:35 CMP Sent. bc6 18:35 Lipase Sent. bc6 18:35 Inserted saline lock: 20 gauge in right antecubital area, using aseptic technique. bc6 18:43 Urinalysis w/ reflexes Sent. mb9 19:41 Valentina Rao, RN is Primary Nurse. aa9 20:00 Patient has correct armband on for positive identification. Bed in low position. Side aa9 rails up X2. 21:01 No provider procedures requiring assistance completed. IV discontinued, intact, aa9 bleeding controlled, No redness/swelling at site. Pressure dressing applied. Administered Medications: 19:45 Drug: NS 0.9% IV 1000 ml Route: IV; Rate: 1 bolus; Site: right antecubital; aa9 21:01 Follow up: Response: No adverse reaction; IV Status: Completed infusion; IV Intake: aa9 1000ml 19:50 Drug: TORadol - Ketorolac IVP 15 mg Route: IVP; Site: right antecubital; aa9 21:01 Follow up: Response: No adverse reaction aa9 19:50 Drug: metoCLOPramide IVP 10 mg Route: IVP; Site: right antecubital; aa9 21:01 Follow up: Response: No adverse reaction aa9 19:50 Drug: diphenhydrAMINE IVP 25 mg Route: IVP; Site: right antecubital; aa9 21:01 Follow up: Response: No adverse reaction aa9 Medication: 21:03 VIS not applicable for this client. aa9 Intake: 21:01 IV: 1000ml; Total: 1000ml. aa9 Outcome: 19:52 ER care complete, transfer ordered by . bs3 20:27 Discharge ordered by . bs3 21:03 Discharged to home ambulatory. aa9 21:03 Condition: stable 21:03 Discharge instructions given to patient, Instructed on discharge instructions, follow up and referral plans. Demonstrated understanding of instructions, follow-up care. 21:04 Patient left the ED. aa9 Signatures: Dispatcher [employer] Lidia Powers Aylin, RN RN aa9 Ezekiel Henderson MD MD bs3 Lidia Sanches RN RN mb9 Shima Can 6
--- NOTE | 2022-07-25 19:53 | EDPHYS ---
Physician Documentation [facility] Name: Lavinia Jarrett Age: 41 yrs Sex: Female : 1980 Arrival Date: 07/25/2022 Time: 17:17 Bed 8 Private MD: ED Physician Ezekiel Henderson HPI: 07/25 19:48 This 41 yrs old Female presents to ER via Ambulatory with complaints of bs3 Abdominal Pain, Headache. 19:48 41-year-old female history of bipolar disorder Denver's disorder, chronic pain, bs3 depression presents with 3 days of right flank and right lower abdominal pain she notes her symptoms are progressive in nature she denies fevers or chills chest pain or shortness of breath she had similar symptoms several months ago but never followed up and came in today she has not taken anything for the pain. 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 - Social history:: Smoking status: Patient reports the use of cigarette tobacco products, smokes one pack cigarettes per day. Reported history of juuling and/or vaping. ROS: 19:48 Constitutional: Negative for fever, chills bs3 19:48 All other systems are negative. Exam: 19:48 Constitutional: pt in moderate pain Head/Face: Normocephalic, atraumatic. Eyes: bs3 Pupils equal round and reactive to light, extra-ocular motions intact. Lids and lashes normal. ENT: mmm, no posterior phyarngeal erythema Neck: Trachea midline, no thyromegaly, no neck stiffness Chest/axilla: Normal chest wall appearance and motion. Nontender with no deformity. No lesions are appreciated. Cardiovascular: Regular rate and rhythm with a normal S1 and S2. symmetric pulses in upper extremities Respiratory: Lungs have equal breath sounds bilaterally, clear to auscultation, no respiratory distress Abdomen/GI: Right lower quadrant/right flank CVA tenderness Back: No spinal tenderness. No costovertebral tenderness. Full range of motion. Skin: Warm, dry with normal turgor. Normal color with no rashes, no lesions, and no evidence of cellulitis. MS/ Extremity: Pulses equal, no cyanosis. Neurovascular intact. Full, normal range of motion. Neuro: Awake and alert, GCS 15, oriented to person, place, time, and situation. Cranial nerves II-XII grossly intact. Motor strength 5/5 in all extremities. Sensory grossly intact. Vital Signs: 17:22 BP 132 / 84; Pulse 92; Resp 18; Temp 97.9; Pulse Ox 100% ; Weight 98.88 kg; Height 5 mb9 ft. 5 in. ; Pain 8/10; 19:56 BP 134 / 86; Pulse 64; Resp 18; Temp 98.5(O); Pulse Ox 100% on R/A; aa9 17:22 Body Mass Index 36.28 (98.88 kg, 165.1 cm) mb9 17:22 Pain Scale: Adult mb9 MDM: 17:21 Patient medically screened. bs3 19:48 Data reviewed: vital signs, nurses notes. ED course: Possible appendicitis although bs3 less likely possible TOA although no vaginal discharge and sexual active with 1 partner possible ovarian cyst or ovarian torsion will do an ultrasound we will check labs we will treat pain and reassess Her work-up was concerning for a large ovary with greatest size of 7 cm while there is flow there is concern for intermittent or undiagnosed torsion given her persistent pain I discussed her symptoms with the patient and recommended evaluation with [employer] she follows with Dr. Salter at [facility] and requested transfer given that I do not have the capacity to take care of this problem will transfer. 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 07/25 17:31 Order name: CBC with Diff; Complete Time: 19:00 bs3 07/25 17:31 Order name: CMP; Complete Time: 19:41 bs3 07/25 17:31 Order name: Lipase; Complete Time: 19:41 bs3 07/25 17:31 Order name: Test, Urine; Complete Time: 19:41 bs3 07/25 17:31 Order name: Urinalysis w/ reflexes; Complete Time: 19:41 bs3 07/25 17:31 Order name: US Transvaginal Study (Probe); Complete Time: 19:00 bs3 07/25 17:31 Order name: IV Saline Lock; Complete Time: 18:34 bs3 07/25 17:31 Order name: Labs collected and sent; Complete Time: 18:34 bs3 Administered Medications: 19:45 Drug: NS 0.9% IV 1000 ml Route: IV; Rate: 1 bolus; Site: right antecubital; aa9 21:01 Follow up: Response: No adverse reaction; IV Status: Completed infusion; IV Intake: aa9 1000ml 19:50 Drug: TORadol - Ketorolac IVP 15 mg Route: IVP; Site: right antecubital; aa9 21:01 Follow up: Response: No adverse reaction aa9 19:50 Drug: metoCLOPramide IVP 10 mg Route: IVP; Site: right antecubital; aa9 21:01 Follow up: Response: No adverse reaction aa9 19:50 Drug: diphenhydrAMINE IVP 25 mg Route: IVP; Site: right antecubital; aa9 21:01 Follow up: Response: No adverse reaction aa9 Disposition Summary: 07/25/22 20:27 Discharge Ordered Location: Home bs3 Problem: new(07/25/22 20:27) bs3 Symptoms: have improved(07/25/22 20:27) bs3 Condition: Stable(07/25/22 20:27) bs3 Diagnosis - Other ovarian cysts(07/25/22 20:27) bs3 Followup: bs3 - With: Private Physician - When: Tomorrow - Reason: Re-evaluation by your physician Discharge Instructions: - Discharge Summary Sheet bs3 - Ovarian Cyst, [id number] bs3 - Ovarian Torsion bs3 Forms: - Work release form aa9 - Medication Reconciliation Form bs3 - Thank You Letter bs3 - Antibiotic Education bs3 - Prescription Opioid Use bs3 Signatures: Dispatcher [employer] Valentina De Guzman RN RN aa9 Ezekiel Henderson MD MD bs3 Lidia Sanches RN RN mb9 Corrections: (The following items were deleted from the chart) 20:26 19:[address] Wise bs3 bs3 19:52 [facility] bs3 bs3 20: 19:52 Higher level of care bs3 bs3 : 19:52 Fair bs3 bs3 : 19:52 an acute exacerbation bs3 bs3 : 19:52 have worsened bs3 bs3 : 19:52 Other ovarian cysts bs3 bs3
[2022-07-25 21:22] VITALS: O2SAT 100
[2022-07-25 21:28] VITALS: BP 134/86; TEMP 98.5
== END 2022-07-25 21:04 | disposition home or self-care (01) ==
LOC: ER 17:17
DX: N83.299 Other ovarian cyst, unspecified side (principal); Z91.040 Latex allergy status; Z91.048 Other nonmedicinal substance allergy status
CPT/HCPCS: 96361; 85025; 81001; 36415; 81025; 83690; 80053; 76830; 96375; 96374; 99284; J2765; J1200; J7030

== ENCOUNTER 2022-09-24 00:43 | Emergency (ER) | payer OTHER ==
--- OUTSIDE RECORDS SUMMARY | 2022-09-24 01:01 | XMS REPORT | Continuity of Care Document ---
:1980 Author Organization [facility] t Address [address] [facility] [address] [place] [address] Care Team Providers Name Role Phone FAYE NAPOLES Primary Care Physician Unavailable Cinda Briceno Attending Clinician Unavailable FAYE NAPOLES Attending Clinician Unavailable LANIE LOPEZ Attending Clinician Unavailable LANIE LOPEZ Attending Clinician Unavailable BROOKLYN HARTMAN Attending Clinician Unavailable BROOKLYN HARTMAN Attending Clinician Unavailable TEJAL SULLIVAN Attending Clinician Unavailable Tejal Sullivan NP Attending Clinician Faye Rothman Attending Clinician Jose Bowen MD Attending Clinician Lab, Ang - Db Attending Clinician Unavailable Doctor Unassigned, [place] Attending Clinician Unavailable EMILY GIL Attending Clinician Unavailable Emily Jesus Attending Clinician Marco Gayle MD Attending Clinician MARCO GAYLE Attending Clinician Unavailable MOO PARK Attending Clinician Unavailable Moo [place] Attending Clinician Pearl Echeverria RN Attending Clinician Unavailable ARIES LEIGH Attending Clinician Unavailable Chema Dominguez MD Attending Clinician DEBRA IRVIN Attending Clinician Unavailable KIZZY MACKEY Attending Clinician Unavailable KIZZY MACKEY Attending Clinician Unavailable Nancy Gutierrez Attending Clinician Debra Irvin MD Attending Clinician FIONA FELIX Attending Clinician Unavailable JOSE BOWEN Attending Clinician Unavailable Pob, Ad[facility] Lab Main Attending Clinician Unavailable Aries Leigh PA-C Attending Clinician NANCY CANNON Attending Clinician Unavailable CHEMA DOMINGUEZ Attending Clinician Unavailable Ely CUETO, Maribell Attending Clinician Senia Esparza DO Attending Clinician Fiona Felix MD Attending Clinician Nicole Andrea MD Attending Clinician Unavailable TEJAL SULLIVAN Admitting Clinician Unavailable BROOKLYN HARTMAN Admitting Clinician Unavailable MOO PARK Admitting Clinician Unavailable Payers Payer Name Policy Type Policy Number Effective Date Expiration Date S ata [facility] [id number] 2016 00:00:00 PLUS Problems Condition Condition Condition Status Onset Resolution Last Treating Co mments Source Name Details Category Date Date Treatment Clinician Date Status Status Disease Active Univers post post 09-04 ity of hysterecto [place] [facility] Hematoma Hematoma Disease Active Unive rs 09-04 ity of 00:: [facility] Bipolar Bipolar Disease Active Univers disorder disorder 08-30 ity of 00:00: [facility] CPAP CPAP Disease Active Univers (continuou (continuou 08-30 it y of s positive s positive 00:00[place] airway airway 00 Medical pressure) pressure) Bran ch dependence dependence Diverticul Diverticul Disease Active U nivers osis of osis of 08-30 ity of intestine intestine 00:[place] without without 00 Medical bleeding, bleeding, Bran ch unspecifie unspecifie d d intestinal intestinal tract tract location location Gastroesop Gastroesop Disease Active U nivers hageal hageal 7-06 ity of reflux reflux 00:00: [place] disease disease 00 Medical Branch History of History of Disease Active U nivers excision excision 08-30 ity of of of 00:00: [place] intestinal intestinal 00 Me dical structure structure Bran ch Insomnia, Insomnia, Disease Active Uni vers unspecifie unspecifie 08-30 it y of d type d type 00:00: Medical Branch Migraine Migraine Disease Active Unive rs without without 08-30 ity of status status 00:00: [place] migrainosu migrainosu 00 Me dical s, not s, not Branch intractabl intractabl e, e, unspecifie unspecifie d migraine d migraine type type Mixed Mixed Disease Active Univers anxiety anxiety 08-30 ity of and and 00:00: [place] depressive depressive 00 Me dical disorder disorder Branch Obstructiv Obstructiv Disease Active U nivers e sleep e sleep 08-30 ity of apnea apnea 00:00: Medical Branch Graves' Graves' Disease Active Univers disease disease 08-02 ity of 00:00: [place] [facility] Abdominal Abdominal Disease Active Overview: Univers pain, pain, 608 [place] ity of right right 00:00: g of this [place] lower lower 00 note Medical quadrant quadrant might be Bran ch different from the original. Added automatic ally from request for surgery [id number] Right Right Disease Active Overview: Univer s ovarian ovarian 08 Formattin ity o f cyst cyst 00:00: g of this [place] 00 note Medical might be Branch different from the original. Added automatic ally from request for surgery [id number] 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 U nivers warts in warts in 0-02 ity of female female 00:00: [place] [facility] Pelvic Pelvic Disease Active Univers adhesive adhesive 3-29 ity of disease disease 00:00: [place] [facility] [place] Aston Disease Active Univers disease disease 2-04 ity of 00:00: [place] [facility] BV BV Disease Active Univers (bacterial (bacterial 1-17 it y of vaginosis) vaginosis) [place]:00: [place] [facility] [place] Hydrosalpi Hydrosalpi Disease Active U nivers nx nx 1-13 ity of 00:00: [place] 00 Medical Branch Cyst of Cyst of Disease Active Univers maxillary maxillary 1-13 ity of sinus sinus 00:00: [place] 00 Medical Branch Female Female Disease Active Univers infertilit [...] diarrhea Fibromyalg Fibromyalg Disease Active 2015-02 U nivers ia ia 2-16 ity of 00:00: [place] 00 Medical Branch Pain in Pain in Disease Active 2015-02 Univers joint, joint, 2-16 ity of multiple multiple 00:00: [place] sites sites 00 Medical Branch History of History of Disease Active 2015-02 U nivers adrenal adrenal 2-16 ity of insufficie insufficie 00:00: [place] ncy ncy 00 Medical Branch Chronic Chronic Disease Active 2015-02 Univers fatigue fatigue 2-16 ity of 00:00: [place] 00 Medical Branch Morbid Morbid Disease Active 2015-02 Univers obesity obesity 2-04 ity of with body with body 00:00: [facility] s mass index mass index 00 Me dical of of Branch 40.0-49.9 40.0-49.9 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 U jeraders neurologic neurologic 0-12 it y of al symptom al symptom 00:00: [place] ritchie disorder disorder 00 Medica l with mixed with mixed Br anch symptoms symptoms Low serum Low serum Disease Active Uni vers cortisol cortisol 9-06 ity of level level 00:00: [place] 00 Medical Branch Postablati Postablati Disease Active U nivers ve ve 7-11 ity of hypothyroi hypothyroi 00:00: [place] dism dism 00 Medical Branch Weight Weight Disease Active Univers gain gain 7-11 ity of 00:00: [place] 00 Medical Branch Disorder Disorder Disease Active Overview: Un oskar of thyroid of thyroid 8-25 Formattin ity of 00:00: g of this [place] 00 note Medical might be Branch different from the original. 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 Utility Migraine Migraine Problem Active Commo n without without Spirit status status - [facility], not s, not [facility] intractabl intractabl Me dical e, e, Center unspecifie unspecifie d migraine d migraine type type Obstructiv Obstructiv Problem Active C ommon e sleep e sleep Spirit apnea apnea - [facility] Gallstone Gallstone Problem Active Com mon [facility] Fibromyalg Fibromyalg Problem Active C ommon ia ia [facility] Chronic Chronic Problem Active Common pain pain Spirit syndrome syndrome - [facility] Muscle Muscle Problem Active Common weakness weakness [facility] Insomnia, Insomnia, Problem Active Com mon unspecifie unspecifie Sp que d type d type - [facility] Bipolar Bipolar Problem Active Common disorder disorder [facility] Hypothyroi Hypothyroi Problem Active C ommon dism, dism, Spirit unspecifie unspecifie - [facility] d type d type [facility] Depression Depression Problem Active C ommon with with Spirit anxiety anxiety - [facility] Foot pain Foot pain Problem Active Com mon [facility] CPAP CPAP Problem Active Common [...] ommon hageal hageal Spirit reflux reflux - [facility] disease, disease, St esophagiti esophagiti Margot kes s presence s presence Me dical not not Center specified specified Allergies, Adverse Reactions, Alerts Allergy Allergy Status Severity Reaction(s) Onset Inactive Treating Comm ents Source Name Type Date Date Clinician LATEX DRUG Active High ITCHING 2015-02 Univers INGREDI 0-25 ity of 00:00: [address] Latex Propensi Active Itching 2015-02 Univers ty to 0-25 ity of adverse 00:00: [place] reaction 00 Medical s to [place] drug Social History Social Habit Start Date Stop Date Quantity Comments Source Gender identity Universit y [facility] Sexual orientation Univer sity [facility] Alcohol intake 2022-09-17 2022-09-17 0 /d University of 00:00:00 00:00:00 [facility] History of Social 2022-08-20 2022-08-20 Univers ity of function 00:00:00 00:00:00 [facility] Exposure to 2022-07-23 2022-08-02 Not sure [facility] SARS-CoV-2 (event) 00:00:00 07:35:00 [facility] Cigarettes smoked 2022-08-02 2022-08-02 Univers ity of current (pack per 00:00:00 00:00:00 [facility] ) - Reported [place] Tobacco use and 2022-08-02 2022-08-02 Smokeless tobacco Un iversity of exposure 00:00:00 00:00:00 non-user [facility] Tobacco Comment 2022-08-02 2022-08-02 Pt smokes 1 pack Uni versity of 00:00:00 00:00:00 a day total of 20 [facility] cigarettes daily [place] History of tobacco 2005-02-25 Cigarette Smoker University of use 00:00:00 [facility] Sex [birth year] At [birth year] Universit y of 00:00:00 00:00:00 [facility] Smoking Status Start Date Stop Date Source Smokes tobacco daily 2022-08-02 00:00:00 Univers ity of [facility] Medications Ordered Filled Start Stop Current Ordering Indication Dosage Frequency Signature Comments Components Source Medication Medication Date Date Medication? Clinician (SIG) Name Name hydrocortis 2022- No 100mg 100 mg, U nivers one sod 09-17 Intravenou ity o f succ 08:45: 08:04 s, ONCE, 1 [place] (CORTEF) 00 :00 dose, On Medical injection Mon Branch 100 mg 09/17/22 at 0345, 2 mL ondansetron 2022- No 4mg 4 mg, Slow Univers (ZOFRAN 09-17 IV Push, ity of (PF)) 07:54: 07:55 ONCE, 1 [place] injection 4 00 :00 dose, On Medi juanito mg [facility] 09/17/22 at 0300, MARSHALL dicyclomine 2022- No 20mg 20 mg, Uni vers (BENTYL) 09-17 Intramuscu ity of injection 07:45: 07:47 lar, ONCE [place] 20 mg 00 :00 NOW, 1 Medical dose, On Branch [facility] 09/17/22 at 0245, Routine alum-mag No 30mL 30 mL, Univer s hydroxide-s 09-17 Oral, ity of imeth 07:00: 07:52 ONCE, 1 [place] (MAALOX 00 :00 dose, On Medical PLUS / Mon Branch MAG-AL 09/17/22 at PLUS) 0200, MARSHALL 200-200-20 mg/5 mL suspension 30 mL morpHINE (2 No 2mg 2 mg, Slow Univers mg/mL) 09-17 IV Push, ity of injection 2 07:00: 07:45 ONCE, 1 [place] mg 00 :00 dose, On Medical [facility] 09/17/22 at 0200, STAT NaCl 0.9% No 500mL at 999 Univ ers (NS) bolus 09-17 mL/hr, 500 it y of infusion 06:00: 07:55 mL, IV [place] 500 mL 00 :00 Infusion, Medical ONCE, 1 Branch dose, On [facility] 09/17/22 at 0100, STAT iopamidol 2022- No [id number] 75mL 75 mL, Univers (ISOVUE 09-17 Intravenou ity o f 370-500 mL) 06:00: 05:11 s, ONCE, 1 [place] injection 00 :00 dose, On Medica l 75 mL [facility] 09/17/22 at 0100, Routine ketorolac 2022- No 30mg 30 mg, Unive rs (TORADOL) 09-17 Slow IV ity of injection 04:45: 04:47 Push, [place] 30 mg 00 :00 ONCE, 1 Medical dose, On Branch 09/16/22 at 2345, Routine diazePAM 2022-0 2022- No 5mg 5 mg, Slow Un oskar (VALIUM) 09-17 07-24 IV Push, ity of injection 5 03:45: 04:45 ONCE, 1 [place] mg 00 :00 dose, On Medical [facility] 09/16/22 at 2245, STAT FENTanyl 25 0 Yes 1{patch Apply 1 Univers mcg/hr 7-21 } Patch to ity of patch 09:30: skin every [place] [address] Medical ([facility]) hours. proMETHazin 0 Yes Take by Uni vers e 25 mg 7-21 mouth as ity of tablet 09:30: needed. [address] FENTanyl 25 2022-0 Yes 1{patch Apply 1 Univers mcg/hr 7-21 } Patch to ity of patch 09:30: skin every [address] ([facility]) hours. proMETHazin 2022-0 Yes Take by Uni vers e 25 mg 7-21 mouth as ity of tablet 09:30: needed. [address] FENTanyl 25 2022-0 Yes 1{patch Apply 1 Univers mcg/hr 7-21 } Patch to ity of patch 09:30: skin every [place] [address] Medical ([facility] wo) hours. proMETHazin 2022-0 Yes Take by Uni vers e 25 mg 7-21 mouth as ity of tablet 09:30: needed. [address] FENTanyl 25 2022-0 Yes 1{patch Apply 1 Univers mcg/hr 7-21 } Patch to ity of patch 09:30: skin every [place] [address] Medical ([facility]) hours. proMETHazin 2022-0 Yes Take by Uni vers e 25 mg 7-21 mouth as ity of tablet 09:30: needed. [address] FENTanyl 25 2022-0 Yes 1{patch Apply 1 Univers mcg/hr 7-21 } Patch to ity of patch 09:30: skin every [place] [address] Medical ([facility]) hours. proMETHazin 2022-0 Yes Take by Uni vers e 25 mg 7-21 mouth as ity of tablet 09:30: needed. [address] FENTanyl 25 2022-0 Yes 1{patch Apply 1 Univers mcg/hr 7-21 } Patch to ity of patch 09:30: skin every [place] [id number] Medical ([facility] wo) hours. proMETHazin 2022-0 Yes Take by Uni vers e 25 mg 7-21 mouth as ity of tablet 09:30: needed. [address] FENTanyl 25 Yes 1{patch Apply 1 Univers mcg/hr 7-21 } Patch to ity of patch 09:30: skin every [place] [id number] Medical ([facility] Branch wo) hours. proMETHazin 2022-0 Yes Take by Uni vers e 25 mg 7-21 mouth as ity of tablet 09:30: needed. [address] FENTanyl 25 Yes 1{patch Apply 1 Univers mcg/hr 7-21 } Patch to ity of patch 09:30: skin every [place] [id number] Medical ([facility] wo) hours. proMETHazin 2022-0 Yes Take by Uni vers e 25 mg 7-21 mouth as ity of tablet 09:30: needed. [address] WEGOVY 0.25 0 Yes [id number] .25mg INJECT Univers mg/0.5 mL 7-13 0.25 MG ity of PnIj SC 00:00: UNDER THE [place] injection 00 SKIN Medical WEEKLY. Branch WEGOVY 0.25 2022-0 Yes [id number] .25mg INJECT Univers mg/0.5 mL 7-13 0.25 MG ity of PnIj SC 00:00: UNDER THE [place] injection 00 SKIN Medical WEEKLY. Branch WEGOVY 0.25 2022-0 Yes [id number] .25mg INJECT Univers mg/0.5 mL 7-13 0.25 MG ity of PnIj SC 00:00: UNDER THE [place] injection 00 SKIN Medical WEEKLY. Branch WEGOVY 0.25 2022-0 Yes [id number] .25mg INJECT Univers mg/0.5 mL 7-13 0.25 MG ity of PnIj SC 00:00: UNDER THE [place] injection 00 SKIN Medical WEEKLY. Branch WEGOVY 0.25 2022-0 Yes [id number] .25mg INJECT Univers mg/0.5 mL 7-13 0.25 MG ity of PnIj SC 00:00: UNDER THE [place] injection 00 SKIN Medical WEEKLY. Branch WEGOVY 0.25 2022-0 Yes [id number] .25mg INJECT Univers mg/0.5 mL 7-13 0.25 MG ity of PnIj SC 00:00: UNDER THE [place] injection 00 SKIN Medical WEEKLY. Branch WEGOVY 0.25 3-0 Yes [id number] .25mg INJECT Univers mg/0.5 mL 7-13 0.25 MG ity of PnIj SC 00:00: UNDER THE [place] injection 00 SKIN Medical WEEKLY. Branch WEGOVY 0.25 3-0 Yes [id number] .25mg INJECT Univers mg/0.5 mL 7-13 0.25 MG ity of PnIj SC 00:00: UNDER THE [place] injection 00 SKIN Medical WEEKLY. Branch WEGOVY 0.25 3-0 Yes [id number] .25mg INJECT Univers mg/0.5 mL 7-13 0.25 MG ity of PnIj SC 00:00: UNDER THE [place] injection 00 SKIN Medical WEEKLY. Branch levothyroxi 2022-0 Yes [id number] 125ug Take 1 Univers ne 125 mcg 7-12 tablet by ity of tablet 00:00: mouth [place] 00 every Medical morning. Branch levothyroxi 2022-0 Yes [id number] 125ug Take 1 Univers ne 125 mcg 7-12 tablet by ity of tablet 00:00: mouth [place] 00 every Medical morning. Branch levothyroxi 2022-0 Yes [id number] 125ug Take 1 Univers ne 125 mcg 7-12 tablet by ity of tablet 00:00: mouth [place] 00 every Medical morning. Branch levothyroxi 2022-0 Yes [id number] 125ug Take 1 Univers ne 125 mcg 7-12 tablet by ity of tablet 00:00: mouth [place] 00 every Medical morning. Branch levothyroxi 2022-0 Yes [id number] 125ug Take 1 Univers ne 125 mcg 7-12 tablet by ity of tablet 00:00: mouth [place] 00 every Medical morning. Branch levothyroxi 2022-0 Yes [id number] 125ug Take 1 Univers ne 125 mcg 7-12 tablet by ity of tablet 00:00: mouth [place] 00 every Medical morning. Branch levothyroxi 2022-0 Yes [id number] 125ug Take 1 Univers ne 125 mcg 7-12 tablet by ity of tablet 00:00: mouth [place] 00 every Medical morning. Branch levothyroxi 2022-0 Yes [id number] 125ug Take 1 Univers ne 125 mcg 7-12 tablet by ity of tablet 00:00: mouth [place] 00 every Medical morning. Branch levothyroxi 0 Yes [id number] 125ug Take 1 Univers ne 125 mcg 7-12 tablet by ity of tablet 00:00: mouth [place] 00 every Medical morning. Branch levothyroxi 0 Yes [id number] 125ug Take 1 Univers ne 125 mcg 7-12 tablet by ity of tablet 00:00: mouth [place] 00 every Medical morning. Branch topiramate 0 2022- No Take by Uni vers 25 mg 7-11 07-11 mouth ity of tablet 16:05: 00:00 daily. [place] 41 :00 Medical Branch topiramate 2022- No Take by Un oskar 25 mg 7-11 07-11 mouth ity of tablet 16:05: 00:00 daily. [place] 41 :00 Medical Branch topiramate 2022-0 2022- No Take by Uni vers 25 mg 7-11 07-11 mouth ity of tablet 16:05: 00:00 daily. [place] 41 :00 Medical Branch topiramate 2022- No Take by Uni vers 25 mg 7-11 07-11 mouth ity of tablet 16:05: 00:00 daily. [place] 41 :00 Medical Branch rizatriptan Yes [id number] 10mg Take 1 Univers (MAXALT) 10 7-11 tablet by ity of mg tablet 00:00: mouth [place] 00 needed for Medical Migraine. Branch May repeat in 2 hours if needed topiramate 2022-0 Yes [id number] 50mg Take 2 Univers 25 mg 7-11 tablets by ity of tablet 00:00: mouth in [place] 00 the Medical morning. Branch semaglutide 0 Yes [id number] .25mg inject Univers , weight 7-11 0.25 mg ity of loss, 00:00: under the [place] (WEGOVY) 00 skin Medical 0.25 mg/0.5 weekly. Branc h mL PnIj SC injection rizatriptan 0 Yes [id number] 10mg Take 1 Univers (MAXALT) 10 7-11 tablet by ity of mg tablet 00:00: mouth [place] 00 needed for Medical Migraine. Branch May repeat in 2 hours if needed topiramate 2023-0 Yes [id number] 50mg Take 2 Univers 25 mg 7-11 tablets by ity of tablet 00:00: mouth in [place] 00 the Medical morning. Branch semaglutide 3-0 Yes [id number] .25mg inject Univers , weight 7-11 0.25 mg ity of loss, 00:00: under the [place] (WEGOVY) 00 skin Medical 0.25 mg/0.5 weekly. Branc h mL PnIj SC injection rizatriptan 2023-0 Yes [id number] 10mg Take 1 Univers (MAXALT) 10 7-11 tablet by ity of mg tablet 00:00: mouth [place] 00 needed for Medical Migraine. Branch May repeat in 2 hours if needed topiramate 2023-0 Yes [id number] 50mg Take 2 Univers 25 mg 7-11 tablets by ity of tablet 00:00: mouth in [place] 00 the Medical morning. Branch semaglutide 2023-0 Yes [id number] .25mg inject Univers , weight 7-11 0.25 mg ity of loss, 00:00: under the [place] (WEGOVY) 00 skin Medical 0.25 mg/0.5 weekly. Branc h mL PnIj [place] injection rizatriptan 3-0 Yes [id number] 10mg Take 1 Univers (MAXALT) 10 7-11 tablet by ity of mg tablet 00:00: mouth [place] 00 needed for Medical Migraine. Branch May repeat in 2 hours if needed topiramate 2023-0 Yes [id number] 50mg Take 2 Univers 25 mg 7-11 tablets by ity of tablet 00:00: mouth in [place] 00 the Medical morning. Branch semaglutide 2023-0 Yes [id number] .25mg inject Univers , weight 7-11 0.25 mg ity of loss, 00:00: under the [place] (WEGOVY) 00 skin Medical 0.25 mg/0.5 weekly. Branc h mL PnIj SC injection rizatriptan 2023-0 Yes [id number] 10mg Take 1 Univers (MAXALT) 10 7-11 tablet by ity of mg tablet 00:00: mouth [place] 00 needed for Medical Migraine. Branch May repeat in 2 hours if needed topiramate 2023-0 Yes [id number] 50mg Take 2 Univers 25 mg 7-11 tablets by ity of tablet 00:00: mouth in [place] 00 the Medical morning. Mark semaglutide 2022-0 Yes [id number] .25mg inject Univers , weight 7-11 0.25 mg ity of loss, 00:00: under the [place] (WEGOVY) 00 skin Medical 0.25 mg/0.5 weekly. Branc h mL PnIj SC injection rizatriptan 2022-0 Yes [id number] 10mg Take 1 Univers (MAXALT) 10 7-11 tablet by ity of mg tablet 00:00: mouth [place] 00 needed for Medical Migraine. Mark May repeat in 2 hours if needed topiramate 2022-0 Yes [id number] 50mg Take 2 Univers 25 mg 7-11 tablets by ity of tablet 00:00: mouth in [place] 00 the Medical morning. Mark rizatriptan 2022-0 Yes [id number] 10mg Take 1 Univers (MAXALT) 10 7-11 tablet by ity of mg tablet 00:00: mouth as [place] 00 needed for Medical Migraine. Mark May repeat in 2 hours if needed topiramate 2022-0 Yes [id number] 50mg Take 2 Univers 25 mg 7-11 tablets by ity of tablet 00:00: mouth in [place] 00 the Medical morning. Mark rizatriptan 2022-0 Yes [id number] 10mg Take 1 Univers (MAXALT) 10 7-11 tablet by ity of mg tablet 00:00: mouth as [place] 00 needed for Medical Migraine. Mark May repeat in 2 hours if needed topiramate 3-0 Yes [id number] 50mg Take 2 Univers 25 mg 7-11 tablets by ity of tablet 00:00: mouth in [place] 00 the Medical morning. Mark rizatriptan 3-0 Yes [id number] 10mg Take 1 Univers (MAXALT) 10 7-11 tablet by ity of mg tablet 00:00: mouth as [place] 00 needed for Medical Migraine. Mark May repeat in 2 hours if needed topiramate 2023-0 Yes [id number] 50mg Take 2 Univers 25 mg 7-11 tablets by ity of tablet 00:00: mouth in [place] 00 the Medical morning. Mark rizatriptan 3-0 Yes [id number] 10mg Take 1 Univers (MAXALT) 10 7-11 tablet by ity of mg tablet 00:00: mouth as [place] 00 needed for Medical Migraine. Branch May repeat in 2 hours if needed topiramate 3-0 Yes [id number] 50mg Take 2 Univers 25 mg 7-11 tablets by ity of tablet 00:00: mouth in [place] 00 the Medical morning. Mark rizatriptan 3-0 Yes [id number] 10mg Take 1 Univers (MAXALT) 10 7-11 tablet by ity of mg tablet 00:00: mouth as [place] 00 needed for Medical Migraine. Mark May repeat in 2 hours if needed topiramate 2023-0 Yes [id number] 50mg Take 2 Univers 25 mg 7-11 tablets by ity of tablet 00:00: mouth in [place] the Medical morning. Mark rizatriptan 3-0 Yes [id number] 10mg Take 1 Univers (MAXALT) 10 7-11 tablet by ity of mg tablet 00:00: mouth as [place] 00 needed for Medical Migraine. Mark May repeat in 2 hours if needed topiramate 3-0 Yes [id number] 50mg Take 2 Univers 25 mg 7-11 tablets by ity of tablet 00:00: mouth in [place] the Medical morning. Mark rizatriptan 3-0 Yes [id number] 10mg Take 1 Univers (MAXALT) 10 7-11 tablet by ity of mg tablet 00:00: mouth as [place] 00 needed for Medical Migraine. Mark May repeat in 2 hours if needed topiramate 3-0 Yes [id number] 50mg Take 2 Univers 25 mg 7-11 tablets by ity of tablet 00:00: mouth in [place] 00 the Medical morning. Mark rizatriptan 3-0 Yes [id number] 10mg Take 1 Univers (MAXALT) 10 7-11 tablet by ity of mg tablet 00:00: mouth as [place] 00 needed for Medical Migraine. Branch May repeat in 2 hours if needed topiramate 2023-0 Yes [id number] 50mg Take 2 Univers 25 mg 7-11 tablets by ity of tablet 00:00: mouth in [place] 00 the Medical morning. Branch semaglutide 0 2022- No [id number] .25mg inject Univers , weight 7-11 07-13 0.25 mg ity of loss, 00:00: 00:00 under the [place] (MISTY) 00 :00 skin Medical 0.25 mg/0.5 weekly. Branc h mL PnIj [facility] injection proMETHazin Yes Take by Uni vers e 25 mg 7-06 mouth as ity of tablet 16:31: needed. [address] Branch proMETHazin 0 Yes Take by Uni vers e 25 mg 7-06 mouth as ity of tablet 16:31: needed. [address] Branch proMETHazin Yes Take by Uni vers e 25 mg 7-06 mouth as ity of tablet 16:31: needed. [address] proMETHazin Yes Take by Uni vers e 25 mg 7-06 mouth as ity of tablet 16:31: needed. [address] proMETHazin 0 Yes Take by Uni vers e 25 mg 7-06 mouth as ity of tablet 16:31: needed. [address] proMETHazin Yes Take by Uni vers e 25 mg 7-06 mouth as ity of tablet 16:31: needed. [address] proMETHazin Yes Take by Uni vers e 25 mg 7-06 mouth as ity of tablet 16:31: needed. [address] proMETHazin Yes Take by [facility] vers e 25 mg 7-06 mouth as ity of tablet 16:31: needed. [address] proMETHazin Yes Take by [facility] vers e 25 mg 7-06 mouth as ity of tablet 16:31: needed. [address] HYDROCORTIS 0 Yes [id number] TAKE 1 [facility] ONE 10 mg 7-01 TABLET BY ity o f tablet 00:00: MOUTH TWICE A Medical DAY Branch HYDROCORTIS 2022-0 Yes [id number] TAKE 1 [facility] ONE 10 mg 7-01 TABLET BY ity o f tablet 00:00: MOUTH TWICE A Medical DAY Branch HYDROCORTIS 0 Yes [id number] TAKE 1 [facility] ONE 10 mg 7-01 TABLET BY ity o f tablet 00:00: MOUTH TWICE A Medical DAY Branch HYDROCORTIS 2023-0 Yes [id number] TAKE 1 [facility] ONE 10 mg 7-01 TABLET BY ity o f tablet 00:00: MOUTH 00 TWICE A Medical DAY Branch HYDROCORTIS 3-0 Yes [id number] TAKE 1 [facility] ONE 10 mg 7-01 TABLET BY ity o f tablet 00:00: MOUTH 00 TWICE A Medical DAY Branch HYDROCORTIS 3-0 Yes [id number] TAKE 1 [facility] ONE 10 mg 7-01 TABLET BY ity o f tablet 00:00: MOUTH 00 TWICE A Medical DAY Branch HYDROCORTIS 3-0 Yes [id number] TAKE 1 [facility] ONE 10 mg 7-01 TABLET BY ity o f tablet 00:00: MOUTH 00 TWICE A Medical DAY Branch HYDROCORTIS 2022-0 Yes [id number] TAKE 1 [facility] ONE 10 mg 7-01 TABLET BY ity o f tablet 00:00: MOUTH 00 TWICE A Medical DAY Branch HYDROCORTIS 3-0 Yes [id number] TAKE 1 [facility] ONE 10 mg 7-01 TABLET BY ity o f tablet 00:00: MOUTH 00 TWICE A Medical DAY Branch HYDROCORTIS 3-0 Yes [id number] TAKE 1 [facility] ONE 10 mg 7-01 TABLET BY ity o f tablet 00:00: MOUTH 00 TWICE A Medical DAY Branch HYDROCORTIS 3-0 Yes [id number] TAKE 1 [facility] ONE 10 mg 7-01 TABLET BY ity o f tablet 00:00: MOUTH 00 TWICE A Medical DAY Branch HYDROCORTIS 3-0 Yes [id number] TAKE 1 [facility] ONE 10 mg 7-01 TABLET BY ity o f tablet 00:00: MOUTH 00 TWICE A Medical DAY Branch HYDROCORTIS 2023-0 Yes [id number] TAKE 1 [facility] ONE 10 mg 7-01 TABLET BY ity o f tablet 00:00: MOUTH 00 TWICE A Medical DAY Branch HYDROCORTIS 2023-0 Yes [id number] TAKE 1 [facility] ONE 10 mg 7-01 TABLET BY ity o f tablet 00:00: MOUTH 00 TWICE A Medical DAY Branch HYDROCORTIS 2023-0 Yes [id number] TAKE 1 [facility] ONE 10 mg 7-01 TABLET BY ity o f tablet 00:00: MOUTH 00 TWICE A Medical DAY Branch HYDROCORTIS 2023-0 Yes [id number] TAKE 1 [facility] ONE 10 mg 7-01 TABLET BY ity o f tablet 00:00: MOUTH TWICE A Medical DAY Branch HYDROCORTIS 2022-0 Yes [id number] TAKE 1 [facility] ONE 10 mg 7-01 TABLET BY ity o f tablet 00:00: MOUTH TWICE A Medical DAY Branch lactated 0 Yes 1000mL at 75 Un[facility] s ringers IV 6-26 mL/hr, ity of infusion 14:45: 1[place]000 [place] 1[place]000 [place] 00 IV Medical Infusion, Branch CONTINUOUS , Starting on Sat08/20/22 at 0945, Until Discontinu ed, Routine, PACU lactated 2022- No 1000mL at 75 Unive rs ringers IV 6- 06-26 mL/hr, ity of infusion 14:45: 18:31 1,000 mL, [place] 1,000 mL 00 :06 IV Medical Infusion, Branch CONTINUOUS , Starting on Sat08/20/22 at 0945, Until Sat08/20/22 at 1331, Routine, PACU HYDROcodone 2022-0 Yes 1{tbl} 1 tablet, [facility] -acetaminop 08-20 Oral, PRN, it y of hen (NORCO 14:42: 1 dose, [place] 5) 5-325 mg 27 Starting Medi juanito tablet 1 on Sat Branch tablet 08/20/22 at 0942, Until Discontinu ed, Routine, Pain (scale 4-6), [facility] Recovery ibuprofen Yes 800mg 800 mg, Univ ers (IBU) 08-20 Oral, PRN, ity of tablet 800 14:42: 1 dose, [place] mg 27 Starting Medical on Sat Branch 08/20/22 at 0942, Until Discontinu ed, Routine, Pain (scale 1-3), [facility] Recovery HYDROcodone 2022- No 1{tbl} 1 tablet, [facility] -acetaminop 6-26 06-26 Oral, PRN, i ty of hen (NORCO) 14:42: 15:34 1 dose, [place] 10-325 mg 27 :00 Starting Medica l tablet 1 on Sat Branch tablet 08/20/22 at 0942, Until Discontinu ed, Routine, Pain (scale 7-10), DSU Recovery HYDROcodone 2022- No 1{tbl} 1 tablet, Univers -acetaminop 08-20 Oral, PRN, i ty of hen (NORCO) 14:42: 15:34 1 dose, [place] 10-325 mg 27 :00 Starting Medica l tablet 1 on Sat tablet 08/20/22 at 0942, Until Discontinu ed, Routine, Pain (scale 7-10), DSU Recovery HYDROcodone 2022- No 1{tbl} 1 tablet, Univers -acetaminop 08-20 Oral, PRN, i ty of hen (NORCO 14:42: 18:31 1 dose, [place] 5) 5-325 mg 27 :06 Starting Medi juanito tablet 1 on Sat tablet 08/20/22 at 0942, Until Sat08/20/22 at 1331, Routine, Pain (scale 4-6), DSU Recovery ibuprofen 2022- No 800mg 800 mg, Uni vers (IBU) 08-20 Oral, PRN, ity of tablet 800 14:42: 18:31 1 dose, [place] mg 27 :06 Starting Medical on Sat Branch 08/20/22 at 0942, Until Sat08/20/22 at 1331, Routine, Pain (scale 1-3), DSU Recovery ondansetron Yes 4mg 4 mg, Slow Univers (ZOFRAN 08-20 IV Push, ity of (PF)) 14:42: PRN, 1 [place] injection 4 14 dose, Medical mg Starting Branch on Sat08/20/22 at 0942, Until Discontinu ed, Routine, Nausea and Vomiting (N/V), PACU FENTanyl PF 2022- No 25ug 25 mcg, Un [facility] (SUBLIMAZE 08-20 Slow IV ity o f (PF)) 14:42: 15:23 Push, [place] injection 14 :00 Q5MIN PRN, Medi juanito 25 mcg 4 doses, Branch Starting on Sat08/20/22 at 0942, Until Sat08/20/22 at 1023, Routine, Pain (scale 4-6), PACU FENTanyl PF 2022- No 25ug 25 mcg, Un [facility] (SUBLIMAZE 08-20 Slow IV ity o f (PF)) 14:42: 15:23 Push, [place] injection 14 :00 Q5MIN PRN, Medi juanito 25 mcg 4 doses, Branch Starting on Sat08/20/22 at 0942, Until Sat08/20/22 at 1023, Routine, Pain (scale 4-6), PACU ondansetron 2022- No 4mg 4 mg, Slow Univers (ZOFRAN 08-20 IV Push, ity of (PF)) 14:42: 18:31 PRN, 1 [place] injection 4 14 :06 dose, Medical mg Starting Branch on Sat08/20/22 at 0942, Until Sat08/20/22 at 1331, Routine, Nausea and Vomiting (N/V), PACU bupivacaine 2022- No PRN, Unive rs (preserv 08-20 Starting ity of free) 0.5% 13:00: 14:46 on Sat [place] (SENSORCAIN 00 :23 08/20/22 at [facility] dical E [facility]) 0.5 0800, Branch % (5 mg/mL) Until Sat injection 08/20/22 at 0946, Routine, Intra-op sodium 2022- No PRN, Univers chloride 08-20 Starting ity of 0.9 % 13:00: 14:46 on Sat [place] irrigation 00 :23 08/20/22 at [facility] ical solution 0800, Branch Until Sat08/20/22 at 0946, Intra-op lactated Yes 1000mL at 100 Unive rs ringers IV 08-20 mL/hr, ity of infusion 12:15: 1,000 mL, [place] 1,000 mL 00 IV Medical Infusion, Branch CONTINUOUS , Starting on Sat08/20/22 at 0715, Until Discontinu ed, Routine, PACU lactated 2022- No 1000mL at 100 Univ ers ringers IV 08-20 mL/hr, ity of infusion 12:15: 18:31 1,000 mL, [place] 1,000 mL 00 :06 IV Medical Infusion, Branch CONTINUOUS , Starting on Sat08/20/22 at 0715, Until Sat08/20/22 at 1331, Routine, PACU CITALOPRAM Yes 40mg Take 40 mg U nivers HYDROBROMID 6-26 by mouth ity of E (CELEXA 11:26: in the [place] ORAL) 02 morning. Medical Branch FENTanyl 25 Yes 1{patch Apply 1 [facility] mcg/hr 6-26 } Patch to ity of patch 11:26: skin every 72 Medical ([facility] Branch wo) hours. rOPINIRole 2022-0 Yes 1mg Take 1 Unive rs 1 mg tablet 6-26 tablet by ity of 11:26: mouth at [place] bedtime. Medical Branch topiramate Yes Take by Univ ers 25 mg 6-26 mouth ity of tablet 11:26: daily. Medical Branch proMETHazin Yes Take by Uni vers e 25 mg 6-26 mouth as ity of tablet 11:26: needed. Medical Branch CITALOPRAM Yes 40mg Take 40 mg U nivers HYDROBROMID 6-26 by mouth ity of E (CELEXA 11:26: in the [place] ORAL) 02 morning. Medical Branch FENTanyl 25 Yes 1{patch Apply 1 [facility] mcg/hr 6-26 } Patch to ity of patch 11:26: skin every 72 Medical ([facility] Branch wo) hours. rOPINIRole 2022-0 Yes 1mg Take 1 Unive rs 1 mg tablet 6-26 tablet by ity of 11:26: mouth at [place] bedtime. Medical Branch topiramate Yes Take by Univ ers 25 mg 6-26 mouth ity of tablet 11:26: daily. Medical Branch proMETHazin Yes Take by Uni vers e 25 mg 6-26 mouth as ity of tablet 11:26: needed. Medical Branch CITALOPRAM Yes 40mg Take 40 mg U nivers HYDROBROMID 6-26 by mouth ity of E (CELEXA 11:26: in the [place] ORAL) 02 morning. Medical Branch FENTanyl 25 Yes 1{patch Apply 1 [facility] mcg/hr 6-26 } Patch to ity of patch 11:26: skin every 72 Medical ([facility] Branch wo) hours. rOPINIRole 2022-0 Yes 1mg Take 1 Unive rs 1 mg tablet 6-26 tablet by ity of 11:26: mouth at [place] 02 bedtime. Medical Branch topiramate 0 Yes Take by Univ ers 25 mg 6-26 mouth ity of tablet 11:26: daily. Medical Branch proMETHazin Yes Take by Uni vers e 25 mg 6-26 mouth as ity of tablet 11:26: needed. Medical Branch CITALOPRAM Yes 40mg Take 40 mg U nivers HYDROBROMID 6-26 by mouth ity of E (CELEXA 11:26: in the [place] ORAL) 02 morning. Medical Branch FENTanyl 25 Yes 1{patch Apply 1 [facility] mcg/hr 6-26 } Patch to ity of patch 11:26: skin every 72 Medical ([facility] wo) hours. rOPINIRole 2022-0 Yes 1mg Take 1 Unive rs 1 mg tablet 6-26 tablet by ity of 11:26: mouth at [place] [address] bedtime. Medical Branch topiramate Yes Take by Univ ers 25 mg 6-26 mouth ity of tablet 11:26: daily. Medical Branch proMETHazin Yes Take by Uni vers e 25 mg 6-26 mouth as ity of tablet 11:26: needed. Medical Branch CITALOPRAM Yes 40mg Take 40 mg U nivers HYDROBROMID 6-26 by mouth ity of E (CELEXA 11:26: in the [place] ORAL) 02 morning. Medical Branch FENTanyl 25 Yes 1{patch Apply 1 [facility] mcg/hr 6-26 } Patch to ity of patch 11:26: skin every 72 Medical ([facility] Branch wo) hours. rOPINIRole 2022-0 Yes 1mg Take 1 Unive rs 1 mg tablet 6-26 tablet by ity of 11:26: mouth at [place] [address] bedtime. Medical Branch topiramate 0 Yes Take by Univ ers 25 mg 6-26 mouth ity of tablet 11:26: daily. Medical Branch proMETHazin 0 Yes Take by Uni vers e 25 mg 6-26 mouth as ity of tablet 11:26: needed. Medical Branch CITALOPRAM Yes 40mg Take 40 mg U nivers HYDROBROMID 6-26 by mouth ity of E (CELEXA 11:26: in the [place] ORAL) 02 morning. Medical Branch FENTanyl 25 Yes 1{patch Apply 1 [facility] mcg/hr 6-26 } Patch to ity of patch 11:26: skin every 72 Medical ([facility] wo) hours. rOPINIRole 2022-0 Yes 1mg Take 1 Unive rs 1 mg tablet 6-26 tablet by ity of 11:26: mouth at [place] [address] bedtime. Medical Branch topiramate 0 Yes Take by Univ ers 25 mg 6-26 mouth ity of tablet 11:26: daily. Medical Branch proMETHazin Yes Take by Uni vers e 25 mg 6-26 mouth as ity of tablet 11:26: needed. Medical Branch CITALOPRAM Yes 40mg Take 40 mg U nivers HYDROBROMID 6-26 by mouth ity of E (CELEXA 11:26: in the [place] ORAL) 02 morning. Medical Branch FENTanyl 25 Yes 1{patch Apply 1 Univers mcg/hr 6-26 } Patch to ity of patch 11:26: skin every [place] 72 Medical ([facility] wo) hours. rOPINIRole 2022-0 Yes 1mg Take 1 Unive rs 1 mg tablet 6-26 tablet by ity of 11:26: mouth at [place] [address] bedtime. Medical Branch topiramate 0 Yes Take by Univ ers 25 mg 6-26 mouth ity of tablet 11:26: daily. Medical Branch proMETHazin Yes Take by Uni vers e 25 mg 6-26 mouth as ity of tablet 11:26: needed. Medical Branch CITALOPRAM Yes 40mg Take 40 mg U nivers HYDROBROMID 6-26 by mouth ity of E (CELEXA 11:26: in the [place] ORAL) 02 morning. Medical Branch FENTanyl 25 Yes 1{patch Apply 1 Univers mcg/hr 6-26 } Patch to ity of patch 11:26: skin every 72 Medical ([facility] wo) hours. rOPINIRole 2022-0 Yes 1mg Take 1 Unive rs 1 mg tablet 6-26 tablet by ity of 11:26: mouth at [place] [address] bedtime. Medical Branch topiramate 0 Yes Take by Univ ers 25 mg 6-26 mouth ity of tablet 11:26: daily. Medical Branch proMETHazin Yes Take by Uni vers e 25 mg 6-26 mouth as ity of tablet 11:26: needed. Medical Branch CITALOPRAM Yes 40mg Take 40 mg U nivers HYDROBROMID 6-26 by mouth ity of E (CELEXA 11:26: in the [place] ORAL) 02 morning. Medical Branch FENTanyl 25 Yes 1{patch Apply 1 [facility] mcg/hr 6-26 } Patch to ity of patch 11:26: skin every 72 Medical ([facility] wo) hours. rOPINIRole 2022-0 Yes 1mg Take 1 Unive rs 1 mg tablet 6-26 tablet by ity of 11:26: mouth at [place] bedtime. Medical Branch topiramate Yes Take by Univ ers 25 mg 6-26 mouth ity of tablet 11:26: daily. Medical Branch CITALOPRAM Yes 40mg Take 40 mg U nivers HYDROBROMID 6-26 by mouth ity of E (CELEXA 11:26: in the [place] ORAL) 02 morning. Medical Branch FENTanyl 25 Yes 1{patch Apply 1 [facility] mcg/hr 6-26 } Patch to ity of patch 11:26: skin every 72 Medical ([facility] wo) hours. rOPINIRole 2022-0 Yes 1mg Take 1 Unive rs 1 mg tablet 6-26 tablet by ity of 11:26: mouth at [place] [address] bedtime. Medical Branch topiramate Yes Take by Univ ers 25 mg 6-26 mouth ity of tablet 11:26: daily. Medical Branch CITALOPRAM Yes 40mg Take 40 mg U nivers HYDROBROMID 6-26 by mouth ity of E (CELEXA 11:26: in the [place] ORAL) 02 morning. Medical Branch FENTanyl 25 0 Yes 1{patch Apply 1 Univers mcg/hr 6-26 } Patch to ity of patch 11:26: skin every 72 Medical ([facility] Branch wo) hours. rOPINIRole 2022-0 Yes 1mg Take 1 Unive rs 1 mg tablet 6-26 tablet by ity of 11:26: mouth at [place] 02 bedtime. Medical Branch CITALOPRAM 0 Yes 40mg Take 40 mg U nivers HYDROBROMID 6-26 by mouth ity of E (CELEXA 11:26: in the [place] ORAL) 02 morning. Medical Branch FENTanyl 25 0 Yes 1{patch Apply 1 Univers mcg/hr 6-26 } Patch to ity of patch 11:26: skin every 72 Medical ([facility] Branch wo) hours. rOPINIRole 2022-0 Yes 1mg Take 1 Unive rs 1 mg tablet 6-26 tablet by ity of 11:26: mouth at [place] 02 bedtime. Medical Branch CITALOPRAM 0 Yes 40mg Take 40 mg U nivers HYDROBROMID 6-26 by mouth ity of E (CELEXA 11:26: in the [place] ORAL) 02 morning. Medical Branch FENTanyl 25 0 Yes 1{patch Apply 1 Univers mcg/hr 6-26 } Patch to ity of patch 11:26: skin every 72 Medical ([facility] wo) hours. rOPINIRole 2022-0 Yes 1mg Take 1 Unive rs 1 mg tablet 6-26 tablet by ity of 11:26: mouth at [place] bedtime. Medical Branch CITALOPRAM 0 Yes 40mg Take 40 mg U nivers HYDROBROMID 6-26 by mouth ity of E (CELEXA 11:26: in the [place] ORAL) 02 morning. Medical Branch FENTanyl 25 Yes 1{patch Apply 1 Univers mcg/hr 6-26 } Patch to ity of patch 11:26: skin every 72 Medical ([facility] wo) hours. rOPINIRole 2022-0 Yes 1mg Take 1 Unive rs 1 mg tablet 6-26 tablet by ity of 11:26: mouth at [place] 02 bedtime. Medical Branch CITALOPRAM 2022-0 Yes 40mg Take 40 mg U nivers HYDROBROMID 6-26 by mouth ity of E (CELEXA 11:26: in the [place] ORAL) 02 morning. Medical Branch FENTanyl 25 2022-0 Yes 1{patch Apply 1 Univers mcg/hr 6-26 } Patch to ity of patch 11:26: skin every 72 Medical ([facility] wo) hours. rOPINIRole 2023-0 Yes 1mg Take 1 Unive rs 1 mg tablet 6-26 tablet by ity of 11:26: mouth at [place] 02 bedtime. Medical Branch CITALOPRAM 2022-0 Yes 40mg Take 40 mg U nivers HYDROBROMID 6-26 by mouth ity of E (CELEXA 11:26: in the [place] ORAL) 02 morning. Medical Branch FENTanyl 25 2022-0 Yes 1{patch Apply 1 Univers mcg/hr 6-26 } Patch to ity of patch 11:26: skin every [place] 72 Medical ([facility] wo) hours. rOPINIRole 3-0 Yes 1mg Take 1 Unive rs 1 mg tablet 6-26 tablet by ity of 11:26: mouth at [place] 02 bedtime. Medical Branch CITALOPRAM 2022-0 Yes 40mg Take 40 mg U nivers HYDROBROMID 6-26 by mouth ity of E (CELEXA 11:26: in the [place] ORAL) 02 morning. Medical Branch FENTanyl 25 2022-0 Yes 1{patch Apply 1 Univers mcg/hr 6-26 } Patch to ity of patch 11:26: skin every [place] 72 Medical ([facility] wo) hours. rOPINIRole 3-0 Yes 1mg Take 1 Unive rs 1 mg tablet 6-26 tablet by ity of 11:26: mouth at [place] 02 bedtime. Medical Branch CITALOPRAM 2022-0 Yes 40mg Take 40 mg U nivers HYDROBROMID 6-26 by mouth ity of E (CELEXA 11:26: in the [place] ORAL) 02 morning. Medical Branch rOPINIRole 3-0 Yes 1mg Take 1 Unive rs 1 mg tablet 6-26 tablet by ity of 11:26: mouth at [place] 02 bedtime. Medical Branch CITALOPRAM 2022-0 Yes 40mg Take 40 mg U nivers HYDROBROMID 6-26 by mouth ity of E (CELEXA 11:26: in the [place] ORAL) 02 morning. Medical Branch rOPINIRole 2023-0 Yes 1mg Take 1 Unive rs 1 mg tablet 6-26 tablet by ity of 11:26: mouth at [place] 02 bedtime. Medical Branch CITALOPRAM 3-0 Yes 40mg Take 40 mg U nivers HYDROBROMID 6-26 by mouth ity of E (CELEXA 11:26: in the [place] ORAL) morning. Medical Branch rOPINIRole 2022-0 Yes 1mg Take 1 Unive rs 1 mg tablet 6-26 tablet by ity of 11:26: mouth at [place] 02 bedtime. Medical Branch CITALOPRAM 0 Yes 40mg Take 40 mg U nivers HYDROBROMID 6-26 by mouth ity of E (CELEXA 11:26: in the [place] ORAL) 02 morning. Medical Branch rOPINIRole 2022-0 Yes 1mg Take 1 Unive rs 1 mg tablet 6-26 tablet by ity of 11:26: mouth at [place] 02 bedtime. Medical Branch CITALOPRAM 0 Yes 40mg Take 40 mg U nivers HYDROBROMID 6-26 by mouth ity of E (CELEXA 11:26: in the [place] ORAL) morning. Medical Branch rOPINIRole 0 Yes 1mg Take 1 Unive rs 1 mg tablet 6-26 tablet by ity of 11:26: mouth at [place] bedtime. Medical Branch CITALOPRAM 2022-0 Yes 40mg Take 40 mg U nivers HYDROBROMID 6-26 by mouth ity of E (CELEXA 11:26: in the [place] ORAL) morning. Medical Branch rOPINIRole 2022-0 Yes 1mg Take 1 Unive rs 1 mg tablet 6-26 tablet by ity of 11:26: mouth at [place] [address] bedtime. Medical Branch CITALOPRAM 0 Yes 40mg Take 40 mg U nivers HYDROBROMID 6-26 by mouth ity of E (CELEXA 11:26: in the [place] ORAL) morning. Medical Branch rOPINIRole 2022-0 Yes 1mg Take 1 Unive rs 1 mg tablet 6-26 tablet by ity of 11:26: mouth at [place] 02 bedtime. Medical Branch CITALOPRAM 2022-0 Yes 40mg Take 40 mg U nivers HYDROBROMID 6-26 by mouth ity of E (CELEXA 11:26: in the [place] ORAL) 02 morning. Medical Branch rOPINIRole 2022-0 Yes 1mg Take 1 Unive rs 1 mg tablet 6-26 tablet by ity of 11:26: mouth at [place] [address] bedtime. Medical Branch traMADoL 50 2022-0 2022- No Take by [facility] mg tablet 6-20 08-26 mouth as ity o f 11:25: 00:00 needed. [place] 59 :00 Medical Branch traMADoL 50 2022- No Take by [facility] mg tablet 6-20 08- mouth as ity o f 11:25: 00:00 needed. [place] 59 :00 Medical Branch traMADoL 50 2022- No Take by [facility] mg tablet 6-20 08- mouth as ity o f 11:25: 00:00 needed. [place] 59 :00 Medical Branch traMADoL 50 0 2022- No Take by [facility] mg tablet 6-20 08- mouth as ity o f 11:25: 00:00 needed. [place] 59 :00 Medical Branch traMADoL 50 2022- No Take by Un [facility] mg tablet 6-20 08- mouth as ity o f 11:: 00:00 needed. [place] 59 :00 Medical Branch OXCARBAZEPI 2022- No 300mg Take 300 Univers NE 6- 06-26 mg by ity of (TRILEPTAL 09:34: 00:00 mouth in [place] ORAL) 50 :00 the Medical morning Branch and 300 mg in the evening. OXCARBAZEPI 2022- No 300mg Take 300 Univers NE 6- 06-26 mg by ity of (TRILEPTAL 09:34: 00:00 mouth in [place] ORAL) 50 :00 the Medical morning Branch and 300 mg in the evening. OXCARBAZEPI 2022- No 300mg Take 300 Univers NE 6-26 06-26 mg by ity of (TRILEPTAL 09:34: 00:00 mouth in [place] ORAL) 50 :00 the Medical morning Branch and 300 mg in the evening. OXCARBAZEPI 2022-2022- No 300mg Take 300 Univers NE 6-26 06-26 mg by ity of (TRILEPTAL 09:34: 00:00 mouth in [place] ORAL) 50 :00 the Medical morning Branch and 300 mg in the evening. OXCARBAZEPI 2022-2022- No 300mg Take 300 Univers NE 6-26 06-26 mg by ity of (TRILEPTAL 09:34: 00:00 mouth in [place] ORAL) 50 :00 the Medical morning Branch and 300 mg in the evening. HYDROcodone 2023-0 Yes [id number] 1{tbl} Take 1 Un [facility] -acetaminop 6-26 tablet by ity of hen 5-325 00:00: mouth [place] mg tablet 00 every 6 Medical (six) Branch hours as needed for Pain (scale 4-6) or Pain (scale 7-10). Indication s: acute pain ibuprofen 2023-0 Yes [id number] 800mg Take 1 [facility] 800 mg 6-26 tablet by ity of tablet 00:00: mouth [place] 00 every 6 Medical (six) Branch hours as needed for Pain (scale 1-3). HYDROcodone 2023-0 Yes [id number] 1{tbl} Take 1 [facility] -acetaminop 6-26 tablet by ity of hen 5-325 00:00: mouth [place] mg tablet 00 every 6 Medical (six) Branch hours as needed for Pain (scale 4-6) or Pain (scale 7-10). Indication s: acute pain ibuprofen 2023-0 Yes [id number] 800mg Take 1 [facility] 800 mg 6-26 tablet by ity of tablet 00:00: mouth [place] 00 every 6 Medical (six) Branch hours as needed for Pain (scale 1-3). ibuprofen 2023-0 Yes [id number] 800mg Take 1 Univers 800 mg 6-26 tablet by ity of tablet 00:00: mouth [place] 00 every 6 Medical (six) Branch hours as needed for Pain (scale 1-3). ibuprofen 2023-0 Yes [id number] 800mg Take 1 [facility] 800 mg 6-26 tablet by ity of tablet 00:00: mouth [place] 00 every 6 Medical (six) Branch hours as needed for Pain (scale 1-3). ibuprofen 2023-0 Yes [id number] 800mg Take 1 [facility] 800 mg 6-26 tablet by ity of tablet 00:00: mouth [place] 00 every 6 Medical (six) Branch hours as needed for Pain (scale 1-3). ibuprofen 2023-0 Yes [id number] 800mg Take 1 [facility] 800 mg 6-26 tablet by ity of tablet 00:00: mouth [place] 00 every 6 Medical (six) Branch hours as needed for Pain (scale 1-3). ibuprofen 2023-0 Yes [id number] 800mg Take 1 [facility] 800 mg 6-26 tablet by ity of tablet 00:00: mouth [place] 00 every 6 Medical (six) Branch hours as needed for Pain (scale 1-3). ibuprofen 2023-0 Yes [id number] 800mg Take 1 [facility] 800 mg 6-26 tablet by ity of tablet 00:00: mouth [place] 00 every 6 Medical (six) Branch hours as needed for Pain (scale 1-3). ibuprofen 2023-0 Yes [id number] 800mg Take 1 [facility] 800 mg 6-26 tablet by ity of tablet 00:00: mouth [place] 00 every 6 Medical (six) Branch hours as needed for Pain (scale 1-3). ibuprofen 2023-0 Yes [id number] 800mg Take 1 [facility] 800 mg 6-26 tablet by ity of tablet 00:00: mouth [place] 00 every 6 Medical (six) Branch hours as needed for Pain (scale 1-3). ibuprofen 2023-0 Yes [id number] 800mg Take 1 [facility] 800 mg 6-26 tablet by ity of tablet 00:00: mouth [place] 00 every 6 Medical (six) Branch hours as needed for Pain (scale 1-3). ibuprofen 2023-0 Yes [id number] 800mg Take 1 [facility] 800 mg 6-26 tablet by ity of tablet 00:00: mouth [place] 00 every 6 Medical (six) Branch hours as needed for Pain (scale 1-3). ibuprofen 2023-0 Yes [id number] 800mg Take 1 [facility] 800 mg 6-26 tablet by ity of tablet 00:00: mouth [place] 00 every 6 Medical (six) Branch hours as needed for Pain (scale 1-3). ibuprofen 2023-0 Yes [id number] 800mg Take 1 [facility] 800 mg 6-26 tablet by ity of tablet 00:00: mouth [place] 00 every 6 Medical (six) Branch hours as needed for Pain (scale 1-3). ibuprofen 2023-0 Yes [id number] 800mg Take 1 [facility] 800 mg 6-26 tablet by ity of tablet 00:00: mouth [place] 00 every 6 Medical (six) Branch hours as needed for Pain (scale 1-3). ibuprofen 2023-0 Yes [id number] 800mg Take 1 [facility] 800 mg 6-26 tablet by ity of tablet 00:00: mouth [place] 00 every 6 Medical (six) Branch hours as needed for Pain (scale 1-3). ibuprofen 2023-0 Yes [id number] 800mg Take 1 [facility] 800 mg 6-26 tablet by ity of tablet 00:00: mouth [place] 00 every 6 Medical (six) Branch hours as needed for Pain (scale 1-3). ibuprofen 2023-0 Yes [id number] 800mg Take 1 [facility] 800 mg 6-26 tablet by ity of tablet 00:00: mouth [place] 00 every 6 Medical (six) Branch hours as needed for Pain (scale 1-3). ibuprofen 2023-0 Yes [id number] 800mg Take 1 [facility] 800 mg 6-26 tablet by ity of tablet 00:00: mouth [place] 00 every 6 Medical (six) Branch hours as needed for Pain (scale 1-3). ibuprofen 2023-0 Yes [id number] 800mg Take 1 [facility] 800 mg 6-26 tablet by ity of tablet 00:00: mouth [place] 00 every 6 Medical (six) Branch hours as needed for Pain (scale 1-3). ibuprofen 2023-0 Yes [id number] 800mg Take 1 [facility] 800 mg 6-26 tablet by ity of tablet 00:00: mouth [place] 00 every 6 Medical (six) Branch hours as needed for Pain (scale 1-3). ibuprofen 2023-0 Yes [id number] 800mg Take 1 [facility] 800 mg 6-26 tablet by ity of tablet 00:00: mouth [place] 00 every 6 Medical (six) Branch hours as needed for Pain (scale 1-3). HYDROcodone 2022-0 2022- Yes [id number] 1{tbl} Take 1 U nivers -acetaminop 6-26 07-04 tablet by it y of hen (NORCO) 00:00: 04:59 mouth [place] 7.5-325 mg 00 :00 every 6 Medica l per tablet (six) Branch hours as needed for Pain for up to 7 days. Indication s: acute pain HYDROcodone 2022-0 2022- Yes [id number] 1{tbl} Take 1 U nivers -acetaminop 6-26 07-04 tablet by it y of hen (NORCO) 00:00: 04:59 mouth [place] 7.5-325 mg 00 :00 every 6 Medica l per tablet (six) Branch hours as needed for Pain for up to 7 days. Indication s: acute pain HYDROcodone 2022-0 2022- Yes [id number] 1{tbl} Take 1 U nivers -acetaminop 6-26 07-04 tablet by it y of hen (NORCO) 00:00: 04:59 mouth [place] 7.5-325 mg 00 :00 every 6 Medica l per tablet (six) Branch hours as needed for Pain for up to 7 days. Indication s: acute pain HYDROcodone 2022-0 2022- No [id number] 1{tbl} Take 1 U nivers -acetaminop 6-26 06-26 tablet by it y of hen 5-325 00:00: 00:00 mouth [place] mg tablet 00 :00 every 6 Medical (six) Branch hours as needed for Pain (scale 4-6) or Pain (scale 7-10). Indication s: acute pain levothyroxi 2022-0 Yes [id number] 150ug Take 1 [facility] ne 150 mcg 6-23 tablet by ity of tablet 00:00: mouth 00 every Medical morning. Branch Please wait for 30 minutes to an hour before you eat or drink anything. levothyroxi 2022-0 Yes [id number] 150ug Take 1 [facility] ne 150 mcg 6-23 tablet by ity of tablet 00:00: mouth 00 every Medical morning. Branch Please wait for 30 minutes to an hour before you eat or drink anything. levothyroxi 2022-0 Yes [id number] 150ug Take 1 [facility] ne 150 mcg 6-23 tablet by ity of tablet 00:00: mouth 00 every Medical morning. Branch Please wait for 30 minutes to an hour before you eat or drink anything. levothyroxi 2022-0 Yes [id number] 150ug Take 1 [facility] ne 150 mcg 6-23 tablet by ity of tablet 00:00: mouth 00 every Medical morning. Branch Please wait for 30 minutes to an hour before you eat or drink anything. levothyroxi 2022-0 Yes [id number] 150ug Take 1 [facility] ne 150 mcg 6-23 tablet by ity of tablet 00:00: mouth [place] 00 every Medical morning. Branch Please wait for 30 minutes to an hour before you eat or drink anything. levothyroxi 2022-0 Yes [id number] 150ug Take 1 [facility] ne 150 mcg 6-23 tablet by ity of tablet 00:00: mouth 00 every Medical morning. Branch Please wait for 30 minutes to an hour before you eat or drink anything. levothyroxi 2022-0 Yes [id number] 150ug Take 1 [facility] ne 150 mcg 6-23 tablet by ity of tablet 00:00: mouth [place] 00 every Medical morning. Branch Please wait for 30 minutes to an hour before you eat or drink anything. levothyroxi 2022-0 Yes [id number] 150ug Take 1 [facility] ne 150 mcg 6-23 tablet by ity of tablet 00:00: mouth [place] 00 every Medical morning. Branch Please wait for 30 minutes to an hour before you eat or drink anything. levothyroxi 2022-0 Yes [id number] 150ug Take 1 [facility] ne 150 mcg 6-23 tablet by ity of tablet 00:00: mouth [place] 00 every Medical morning. Branch Please wait for 30 minutes to an hour before you eat or drink anything. levothyroxi 2022-0 Yes [id number] 150ug Take 1 [facility] ne 150 mcg 6-23 tablet by ity of tablet 00:00: mouth [place] 00 every Medical morning. Branch Please wait for 30 minutes to an hour before you eat or drink anything. levothyroxi 2022-0 Yes [id number] 150ug Take 1 [facility] ne 150 mcg 6-23 tablet by ity of tablet 00:00: mouth [place] 00 every Medical morning. Branch Please wait for 30 minutes to an hour before you eat or drink anything. levothyroxi 2022-0 Yes [id number] 150ug Take 1 [facility] ne 150 mcg 6-23 tablet by ity of tablet 00:00: mouth [place] 00 every Medical morning. Branch Please wait for 30 minutes to an hour before you eat or drink anything. levothyroxi 2022-0 2022- No [id number] 150ug Take 1 [facility] ne 150 mcg 6-23 07-12 tablet by ity of tablet 00:00: 00:00 mouth [place] 00 :00 every Medical morning. Branch Please wait for 30 minutes to an hour before you eat or drink anything. levothyroxi 2022-0 2022- No [id number] 150ug Take 1 [facility] ne 150 mcg 6-23 07-12 tablet by ity of tablet 00:00: 00:00 mouth [place] 00 :00 every Medical morning. Branch Please wait for 30 minutes to an hour before you eat or drink anything. OXCARBAZEPI 2022-0 Yes 300mg Take 300 [facility] nivers NE 6-15 mg by ity of (TRILEPTAL 10:09: mouth in [place] ORAL) 34 the Medical morning Branch and 300 mg in the evening. OXCARBAZEPI 2023-0 Yes 300mg Take 300 [facility] n[facility] NE 6-15 mg by ity of (TRILEPTAL 10:09: mouth in [place] ORAL) 34 the Medical morning Branch and 300 mg in the evening. topiramate 2023-0 Yes Take by [facility] ers 25 mg 6-15 mouth ity of tablet 10:09: daily. [place] [address] Medical Branch proMETHazin 3-0 Yes Take by [facility] vers e 25 mg 6-15 mouth as ity of tablet 10:09: needed. [place] [address] Medical Branch traMADoL 50 3-0 Yes Take by [facility] vers mg tablet 6-15 mouth as ity of 10:09: needed. [place] [address] Medical Branch OXCARBAZEPI 2023-0 Yes 300mg Take 300 [facility] n[facility] NE 6-15 mg by ity of (TRILEPTAL 10:09: mouth in [place] ORAL) 34 the Medical morning Branch and 300 mg in the evening. topiramate 2023-0 Yes Take by [facility] ers 25 mg 6-15 mouth ity of tablet 10:09: daily. [place] [address] Medical Branch proMETHazin 3-0 Yes Take by [facility] vers e 25 mg 6-15 mouth as ity of tablet 10:09: needed. [place] [address] Medical Branch traMADoL 50 3-0 Yes Take by [facility] vers mg tablet 6-15 mouth as ity of 10:09: needed. [place] [address] Medical Branch OXCARBAZEPI 2023-0 Yes 300mg Take 300 [facility] n[facility] NE 6-15 mg by ity of (TRILEPTAL 10:09: mouth in [place] ORAL) 34 the Medical morning Branch and 300 mg in the evening. topiramate 2023-0 Yes Take by [facility] ers 25 mg 6-15 mouth ity of tablet 10:09: daily. [place] [address] Medical Branch proMETHazin 2023-0 Yes Take by [facility] vers e 25 mg 6-15 mouth as ity of tablet 10:09: needed. [address] Branch traMADoL 50 3-0 Yes Take by Uni vers mg tablet 6-15 mouth as ity of 10:09: needed. [place] [address] Medical Branch OXCARBAZEPI 2023-0 Yes 300mg Take 300 [facility] nivers NE 6-15 mg by ity of (TRILEPTAL 10:09: mouth in [place] ORAL) 34 the Medical morning Branch and 300 mg in the evening. topiramate Yes Take by [facility] ers 25 mg 6-15 mouth ity of tablet 10:09: daily. [place] [address] Medical Branch proMETHazin Yes Take by [facility] vers e 25 mg 6-15 mouth as ity of tablet 10:09: needed. [place] [address] Medical Branch traMADoL 50 Yes Take by Uni vers mg tablet 6-15 mouth as ity of 10:09: needed. [place] [address] Medical Branch CITALOPRAM Yes 40mg Take 40 mg U nivers HYDROBROMID 6-15 by mouth ity of E (CELEXA 09:52: in the [place] ORAL) 09 morning. Medical Branch FENTanyl 25 Yes 1{patch Apply 1 [facility] mcg/hr 6-15 } Patch to ity of patch 09:52: skin every [place] 72 Medical ([facility] healt[facility] Branch wo) hours. rOPINIRole 2022-0 Yes 1mg Take 1 [facility] rs 1 mg tablet 6-15 tablet by ity of 09:52: mouth at [place] 09 bedtime. Medical Branch CITALOPRAM Yes 40mg Take 40 mg [facility] nivers HYDROBROMID 6-15 by mouth ity of E (CELEXA 09:52: in the [place] ORAL) 09 morning. Medical Branch FENTanyl 25 Yes 1{patch Apply 1 [facility] mcg/hr 6-15 } Patch to ity of patch 09:52: skin every [place] 72 Medical (labette healt[facility] Branch wo) hours. rOPINIRole 2022-0 Yes 1mg Take 1 [facility] rs 1 mg tablet 6-15 tablet by ity of 09:52: mouth at [place] 09 bedtime. Medical Branch CITALOPRAM Yes 40mg Take 40 mg [facility] nivers HYDROBROMID 6-15 by mouth ity of E (CELEXA 09:52: in the [place] ORAL) 09 morning. Medical Branch FENTanyl 25 Yes 1{patch Apply 1 [facility] mcg/hr 6-15 } Patch to ity of patch 09:52: skin every [place] 72 Medical (labette healt[facility] Branch wo) hours. rOPINIRole 2022-0 Yes 1mg Take 1 [facility] rs 1 mg tablet 6-15 tablet by ity of 09:52: mouth at [place] 09 bedtime. Medical Branch CITALOPRAM 3-0 Yes 40mg Take 40 mg [facility] nivers HYDROBROMID 6-15 by mouth ity of E (CELEXA 09:52: in the [place] ORAL) 09 morning. Medical Branch FENTanyl 25 2022-0 Yes 1{patch Apply 1 [facility] mcg/hr 6-15 } Patch to ity of patch 09:52: skin every [place] 09 72 Medical (sevent[place] Branch wo) hours. rOPINIRole 2023-0 Yes 1mg Take 1 [facility] rs 1 mg tablet 6-15 tablet by ity of 09:52: mouth at [place] 09 bedtime. Medical Branch CITALOPRAM 2022-0 Yes 40mg Take 40 mg [facility] nivers HYDROBROMID 6-15 by mouth ity of E (CELEXA 09:52: in the [place] ORAL) 09 morning. Medical Branch FENTanyl 25 2022-0 Yes 1{patch Apply 1 [facility] mcg/hr 6-15 } Patch to ity of patch 09:52: skin every [place] 09 72 Medical (labette healt[facility] Branch wo) hours. rOPINIRole 2023-0 Yes 1mg Take 1 [facility] rs 1 mg tablet 6-15 tablet by ity of 09:52: mouth at [place] 09 bedtime. Medical Branch ibuprofen 2023-0 Yes [id number] 800mg Take 1 [facility] 800 mg 6-08 tablet by ity of tablet 00:00: mouth [place] 00 every 8 Medical (eight) Branch hours as needed for Pain (scale 4-6). ibuprofen 2023-0 Yes [id number] 800mg Take 1 [facility] 800 mg 6-08 tablet by ity of tablet 00:00: mouth [place] 00 every 8 Medical (eight) Branch hours as needed for Pain (scale 4-6). ibuprofen 2023-0 Yes [id number] 800mg Take 1 [facility] 800 mg 6-08 tablet by ity of tablet 00:00: mouth [place] 00 every 8 Medical (eight) Branch hours as needed for Pain (scale 4-6). ibuprofen 2023-0 Yes [id number] 800mg Take 1 [facility] 800 mg 6-08 tablet by ity of tablet 00:00: mouth [place] 00 every 8 Medical (eight) Branch hours as needed for Pain (scale 4-6). ibuprofen 2023-0 Yes [id number] 800mg Take 1 [facility] 800 mg 6-08 tablet by ity of tablet 00:00: mouth [place] 00 every 8 Medical (eight) Branch hours as needed for Pain (scale 4-6). ibuprofen 2023-0 Yes [id number] 800mg Take 1 [facility] 800 mg 6-08 tablet by ity of tablet 00:00: mouth [place] 00 every 8 Medical (eight) Branch hours as needed for Pain (scale 4-6). ibuprofen 2023-0 Yes [id number] 800mg Take 1 [facility] 800 mg 6-08 tablet by ity of tablet 00:00: mouth [place] 00 every 8 Medical (eight) Branch hours as needed for Pain (scale 4-6). ibuprofen 2023-0 Yes [id number] 800mg Take 1 [facility] 800 mg 6-08 tablet by ity of tablet 00:00: mouth [place] 00 every 8 Medical (eight) Branch hours as needed for Pain (scale 4-6). ibuprofen 2023-0 Yes [id number] 800mg Take 1 [facility] 800 mg 6-08 tablet by ity of tablet 00:00: mouth [place] 00 every 8 Medical (eight) Branch hours as needed for Pain (scale 4-6). ibuprofen 2023-0 2023- No [id number] 800mg Take 1 [facility] 800 mg 6-08 06-26 tablet by ity of tablet 00:00: 00:00 mouth [place] 00 :00 every 8 Medical (eight) Branch hours as needed for Pain (scale 4-6). ibuprofen 2023-0 2023- No [id number] 800mg Take 1 [facility] 800 mg 6-08 06-26 tablet by ity of tablet 00:00: 00:00 mouth [place] 00 :00 every 8 Medical (eight) Branch hours as needed for Pain (scale 4-6). ibuprofen 2023-0 2023- No [id number] 800mg Take 1 [facility] 800 mg 6-08 06-26 tablet by ity of tablet 00:00: 00:00 mouth [place] 00 :00 every 8 Medical (eight) Branch hours as needed for Pain (scale 4-6). ibuprofen 2023-0 2023- No [id number] 800mg Take 1 [facility] 800 mg 6-08 06-26 tablet by ity of tablet 00:00: 00:00 mouth [place] 00 :00 every 8 Medical (eight) Branch hours as needed for Pain (scale 4-6). ibuprofen 2023-0 2023- No [id number] 800mg Take 1 [facility] 800 mg 08-02 tablet by ity of tablet 00:00: 00:00 mouth [place] 00 :00 every 8 Medical (eight) Branch hours as needed for Pain (scale 4-6). ketorolac 2022- No 30mg 30 mg, Unive rs (TORADOL) 07-29 Slow IV ity of injection 04:00: 02:59 Push, [place] 30 mg 00 :00 ONCE, 1 Medical dose, On Branch 07/28/22 at 2300, Routine morpHINE (4 2022- No 4mg 4 mg, Slow [facility] mg/mL) 07-29 IV Push, ity of injection 4 02:00: 01:53 ONCE, 1 [place] mg 00 :00 dose, On Medical 07/28/22 Branch at 2100, STAT morpHINE (4 2022- No 4mg 4 mg, Slow [facility] mg/mL) 07-29 IV Push, ity of injection 4 00:30: 00:17 ONCE, 1 [place] mg 00 :00 dose, On Medical 07/28/22 Branch at 1930, STAT iopamidol 2022- No [id number] 90mL 90 mL, Univers (ISOVUE 07-29 Intravenou ity o f 370-500 mL) 00:00: 00:00 s, ONCE, 1 [place] injection 00 :00 dose, On Medica l 90 mL 07/28/22 Branch at 1900, Routine ondansetron 2022- No 4mg 4 mg, Slow [facility] (ZOFRAN 07-28 IV Push, ity of (PF)) 22:15: 22:22 ONCE, 1 [place] injection 4 00 :00 dose, On Medi juanito mg 07/28/22 Branch at 1715, MARSHALL morpHINE (4 2022- No 4mg 4 mg, Slow [facility] mg/mL) 07-28 IV Push, ity of injection 4 22:15: 22:27 ONCE, 1 [place] mg 00 :00 dose, On Medical 07/28/22 Branch at 1715, STAT cefpodoxime 2022- Yes [id number] 100mg Take 1 [facility] 100 mg 6-04 30-11 tablet by ity of tablet 00:00: 04:59 mouth in [place] 00 :00 the Medical morning Branch and 1 tablet in the evening. Do all this for 7 days. cefpodoxime 2022- Yes [id number] 100mg Take 1 [facility] 100 mg 6- 06-11 tablet by ity of tablet 00:00: 04:59 mouth in [place] 00 :00 the Medical morning Branch and 1 tablet in the evening. Do all this for 7 days. cefpodoxime 2022- Yes [id number] 100mg Take 1 [facility] 100 mg 6-04 30-11 tablet by ity of tablet 00:00: 04:59 mouth in [place] 00 :00 the Medical morning Branch and 1 tablet in the evening. Do all this for 7 days. cefpodoxime 2022- Yes [id number] 100mg Take 1 [facility] 100 mg 6-04 30-11 tablet by ity of tablet 00:00: 04:59 mouth in [place] 00 :00 the [facility] morning Branch and 1 tablet in the evening. Do all this for 7 days. cefpodoxime 2022- Yes [id number] 100mg Take 1 [facility] 100 mg 6-04 30-11 tablet by ity of tablet 00:00: 04:59 mouth in [place] 00 :00 the [facility] morning [place] and 1 tablet in the evening. Do all this for 7 days. LATUDA Yes Take by Unive rs mg tablet 6-02 mouth at ity of 00:00: bedtime. [place] [facility] Branch LATUDA 0 Yes Take by Unive rs mg tablet 6-02 mouth at ity of 00:00: bedtime. [place] [facility] Branch LATUDA 0 Yes Take by Un[facility] rs mg tablet 6-02 mouth at ity of 00:00: bedtime. [place] [facility] Branch LATUDA 2022-0 Yes Take by Unive rs mg tablet 6-02 mouth at ity of 00:00: bedtime. [place] [facility] Branch LATUDA 20 0 Yes Take by Unive rs mg tablet 6-02 mouth at ity of 00:00: bedtime. [place] [facility] Branch LATUDA 20 0 Yes Take by Unive rs mg tablet 6-02 mouth at ity of 00:00: bedtime. Medical Branch LATUDA 0 Yes Take by Un[facility] rs mg tablet 6-02 mouth at ity of 00:00: bedtime. Medical Branch LATUDA 20 0 Yes Take by Un[facility] rs mg tablet 6-02 mouth at ity of 00:00: bedtime. Medical Branch LATUDA 0 Yes Take by [facility] rs mg tablet 6-02 mouth at ity of 00:00: bedtime. Medical Branch LATUDA 0 Yes Take by [facility] rs mg tablet 6-02 mouth at ity of 00:00: bedtime. [place] [facility] LATUDA 20 0 Yes Take by Un[facility] rs mg tablet 6-02 mouth at ity of 00:00: bedtime. [place] [facility] Branch LATUDA 0 Yes Take by Un[facility] rs mg tablet 6-02 mouth at ity of 00:00: bedtime. [place] [facility] Branch LATUDA 0 Yes Take by Un[facility] rs mg tablet 6-02 mouth at ity of 00:00: bedtime. [place] [facility] Branch LATUDA 0 Yes Take by Un[facility] rs mg tablet 6-02 mouth at ity of 00:00: bedtime. Medical Branch LATUDA 0 Yes Take by Unive rs mg tablet 6-02 mouth at ity of 00:00: bedtime. Medical Branch LATUDA 20 0 Yes Take by Unive rs mg tablet 6-02 mouth at ity of 00:00: bedtime. Medical Branch LATUDA 0 Yes Take by Un[facility] rs mg tablet 6-02 mouth at ity of 00:00: bedtime. [place] [facility] LATUDA 20 0 Yes Take by Un[facility] rs mg tablet 6-02 mouth at ity of 00:00: bedtime. [place] [facility] Branch LATUDA 20 0 Yes Take by Un[facility] rs mg tablet 6-02 mouth at ity of 00:00: bedtime. [place] [facility] Branch LATUDA 20 0 Yes Take by Unive rs mg tablet 6-02 mouth at ity of 00:00: bedtime. Medical Branch LATUDA 20 2023-0 Yes Take by Unive rs mg tablet 6-02 mouth at ity of 00:00: bedtime. Medical Branch LATUDA 20 2022-0 Yes Take by Un[facility] rs mg tablet 6-02 mouth at ity of 00:00: bedtime. Medical Branch LATUDA 20 2022-0 Yes Take by Un[facility] rs mg tablet 6-02 mouth at ity of 00:00: bedtime. Medical Branch LATUDA 20 2022-0 Yes Take by Unive rs mg tablet 6-02 mouth at ity of 00:00: bedtime. [place] [facility] Branch LATUDA 20 0 Yes Take by Unive rs mg tablet 6-02 mouth at ity of 00:00: bedtime. [place] [facility] Branch LATUDA 20 0 Yes Take by Unive rs mg tablet 6-02 mouth at ity of 00:00: bedtime. [place] [facility] Branch LATUDA 20 0 Yes Take by Unive rs mg tablet 6-02 mouth at ity of 00:00: bedtime. [place] [facility] Branch LATUDA 20 0 Yes Take by Unive rs mg tablet 6-02 mouth at ity of 00:00: bedtime. [place] [facility] Branch LATUDA 20 0 Yes Take by Unive rs mg tablet 6-02 mouth at ity of 00:00: bedtime. [place] [facility] Branch TOPIRAMATE 2022-0 Yes [id number] TAKE 1 [facility] 25 mg 5-31 TABLET BY ity of tablet 00:00: MOUTH [place] EVERY DAY Medical IN THE [place] MORNING TOPIRAMATE 2022-0 Yes [id number] TAKE 1 [facility] 25 mg 5-31 TABLET BY ity of tablet 00:00: MOUTH [place] 00 EVERY DAY Medical IN THE [place] MORNING TOPIRAMATE 3-0 Yes [id number] TAKE 1 [facility] 25 mg 5-31 TABLET BY ity of tablet 00:00: MOUTH [place] EVERY DAY Medical IN THE [place] MORNING TOPIRAMATE 3-0 Yes [id number] TAKE 1 [facility] 25 mg 5-31 TABLET BY ity of tablet 00:00: MOUTH [place] 00 EVERY DAY Medical IN THE [place] MORNING TOPIRAMATE 3-0 Yes [id number] TAKE 1 [facility] 25 mg 5-31 TABLET BY ity of tablet 00:00: MOUTH [place] EVERY DAY Medical IN THE [place] MORNING TOPIRAMATE 2022-0 Yes [id number] TAKE 1 [facility] 25 mg 5-31 TABLET BY ity of tablet 00:00: MOUTH [place] 00 EVERY DAY Medical IN THE [place] MORNING TOPIRAMATE 2022-0 Yes [id number] TAKE 1 [facility] 25 mg 5-31 TABLET BY ity of tablet 00:00: MOUTH [place] 00 EVERY DAY Medical IN THE [place] MORNING TOPIRAMATE 2022-0 Yes [id number] TAKE 1 [facility] 25 mg 5-31 TABLET BY ity of tablet 00:00: MOUTH [place] 00 EVERY DAY Medical IN THE [place] MORNING TOPIRAMATE 2022-0 Yes [id number] TAKE 1 [facility] 25 mg 5-31 TABLET BY ity of tablet 00:00: MOUTH [place] 00 EVERY DAY Medical IN THE [place] MORNING TOPIRAMATE 2022-0 Yes [id number] TAKE 1 [facility] 25 mg 5-31 TABLET BY ity of tablet 00:00: MOUTH [place] 00 EVERY DAY Medical IN THE [place] MORNING TOPIRAMATE 2022-0 Yes [id number] TAKE 1 [facility] 25 mg 5-31 TABLET BY ity of tablet 00:00: MOUTH [place] 00 EVERY DAY Medical IN THE [place] MORNING TOPIRAMATE 2022-0 Yes [id number] TAKE 1 [facility] 25 mg 5-31 TABLET BY ity of tablet 00:00: MOUTH [place] 00 EVERY DAY Medical IN THE [place] MORNING TOPIRAMATE 2022-0 Yes [id number] TAKE 1 [facility] 25 mg 5-31 TABLET BY ity of tablet 00:00: MOUTH [place] 00 EVERY DAY Medical IN THE [place] MORNING TOPIRAMATE 2022-0 Yes [id number] TAKE 1 [facility] 25 mg 5-31 TABLET BY ity of tablet 00:00: MOUTH [place] 00 EVERY DAY Medical IN THE [place] MORNING TOPIRAMATE 2022-0 Yes [id number] TAKE 1 [facility] 25 mg 5-31 TABLET BY ity of tablet 00:00: MOUTH [place] 00 EVERY DAY Medical IN THE [place] MORNING TOPIRAMATE 2022-0 Yes [id number] TAKE 1 [facility] 25 mg 5-31 TABLET BY ity of tablet 00:00: MOUTH [place] 00 EVERY DAY Medical IN THE [place] MORNING TOPIRAMATE 2022-0 Yes [id number] TAKE 1 [facility] 25 mg 5-31 TABLET BY ity of tablet 00:00: MOUTH [place] 00 EVERY DAY Medical IN THE [place] MORNING TOPIRAMATE 2022-0 Yes [id number] TAKE 1 [facility] 25 mg 5-31 TABLET BY ity of tablet 00:00: MOUTH [place] 00 EVERY DAY Medical IN THE [place] MORNING TOPIRAMATE 2022-0 Yes [id number] TAKE 1 [facility] 25 mg 5-31 TABLET BY ity of tablet 00:00: MOUTH [place] 00 EVERY DAY Medical IN THE [place] MORNING TOPIRAMATE 2022-0 Yes [id number] TAKE 1 [facility] 25 mg 5-31 TABLET BY ity of tablet 00:00: MOUTH [place] 00 EVERY DAY Medical IN THE [place] MORNING TOPIRAMATE 2022-0 Yes [id number] TAKE 1 [facility] 25 mg 5-31 TABLET BY ity of tablet 00:00: MOUTH [place] 00 EVERY DAY Medical IN THE [place] MORNING TOPIRAMATE 2022-0 Yes [id number] TAKE 1 [facility] 25 mg 5-31 TABLET BY ity of tablet 00:00: MOUTH [place] 00 EVERY DAY Medical IN THE [place] MORNING TOPIRAMATE 2022-0 Yes [id number] TAKE 1 [facility] 25 mg 5-31 TABLET BY ity of tablet 00:00: MOUTH [place] 00 EVERY DAY Medical IN THE [place] MORNING TOPIRAMATE 2022-0 Yes [id number] TAKE 1 [facility] 25 mg 5-31 TABLET BY ity of tablet 00:00: MOUTH [place] 00 EVERY DAY Medical IN THE [place] MORNING TOPIRAMATE 2022-0 2023- No [id number] TAKE 1 [facility] 25 mg 5-31 07-11 TABLET BY ity of tablet 00:00: 00:00 MOUTH [place] 00 :00 EVERY DAY Medical IN THE [place] MORNING TOPIRAMATE 2022-0 3- No [id number] TAKE 1 [facility] 25 mg 5-31 07-11 TABLET BY ity of tablet 00:00: 00:00 MOUTH [place] 00 :00 EVERY DAY Medical IN THE [place] MORNING TOPIRAMATE 2022-0 2023- No [id number] TAKE 1 [facility] 25 mg 5-31 07-11 TABLET BY ity of tablet 00:00: 00:00 MOUTH [place] 00 :00 EVERY DAY Medical IN THE [place] MORNING TOPIRAMATE 2022-0 3- No [id number] TAKE 1 [facility] 25 mg 5-31 07-11 TABLET BY ity of tablet 00:00: 00:00 MOUTH [place] 00 :00 EVERY DAY Medical IN THE [place] MORNING atomoxetine 2022-0 Yes 60mg Take 1 Univ ers 60 mg 5-28 capsule by ity of capsule 00:00: mouth in [place] 00 the Medical morning Branch and 1 capsule in the evening. atomoxetine 2023-0 Yes 60mg Take 1 Univ ers 60 mg 5-28 capsule by ity of capsule 00:00: mouth in [place] [address] the Medical morning Branch and 1 capsule in the evening. atomoxetine 2023-0 Yes 60mg Take 1 Univ ers 60 mg 5-28 capsule by ity of capsule 00:00: mouth in [place] [address] the Medical morning [place] and 1 capsule in the evening. atomoxetine 2023-0 Yes 60mg Take 1 Univ ers 60 mg 5-28 capsule by ity of capsule 00:00: mouth in [place] [address] the Medical morning Branch and 1 capsule in the evening. atomoxetine 2023-0 Yes 60mg Take 1 Univ ers 60 mg 5-28 capsule by ity of capsule 00:00: mouth in [place] [address] the [facility] morning [place] and 1 capsule in the evening. atomoxetine 2023-0 Yes 60mg Take 1 Univ ers 60 mg 5-28 capsule by ity of capsule 00:00: mouth in [address] morning [place] and 1 capsule in the evening. atomoxetine 2023-0 Yes 60mg Take 1 Univ ers 60 mg 5-28 capsule by ity of capsule 00:00: mouth in [address] morning [place] and 1 capsule in the evening. atomoxetine 2023-0 Yes 60mg Take 1 Univ ers 60 mg 5-28 capsule by ity of capsule 00:00: mouth in [place] [address] the [facility] morning [place] and 1 capsule in the evening. atomoxetine 2023-0 Yes 60mg Take 1 Univ ers 60 mg 5-28 capsule by ity of capsule 00:00: mouth in [address] morning [place] and 1 capsule in the evening. atomoxetine 2023-0 Yes 60mg Take 1 Univ ers 60 mg 5-28 capsule by ity of capsule 00:00: mouth in [address] morning [place] and 1 capsule in the evening. atomoxetine 2023-0 Yes 60mg Take 1 Univ ers 60 mg 5-28 capsule by ity of capsule 00:00: mouth in [address] morning [place] and 1 capsule in the evening. atomoxetine 2023-0 Yes 60mg Take 1 Univ ers 60 mg 5-28 capsule by ity of capsule 00:00: mouth in [address] morning [place] and 1 capsule in the evening. atomoxetine 2023-0 Yes 60mg Take 1 Univ ers 60 mg 5-28 capsule by ity of capsule 00:00: mouth in [place] [address] the Medical morning Branch and 1 capsule in the evening. atomoxetine 2023-0 Yes 60mg Take 1 Univ ers 60 mg 5-28 capsule by ity of capsule 00:00: mouth in [place] [address] the Medical morning Branch and 1 capsule in the evening. atomoxetine 2023-0 Yes 60mg Take 1 Univ ers 60 mg 5-28 capsule by ity of capsule 00:00: mouth in [place] [address] the Medical morning Branch and 1 capsule in the evening. atomoxetine 2023-0 Yes 60mg Take 1 Univ ers 60 mg 5-28 capsule by ity of capsule 00:00: mouth in [place] [address] the Medical morning Branch and 1 capsule in the evening. atomoxetine 2023-0 Yes 60mg Take 1 Univ ers 60 mg 5-28 capsule by ity of capsule 00:00: mouth in [place] [address] the Medical morning Branch and 1 capsule in the evening. atomoxetine 2023-0 Yes 60mg Take 1 Univ ers 60 mg 5-28 capsule by ity of capsule 00:00: mouth in [place] [address] the Medical morning [place] and 1 capsule in the evening. atomoxetine 2023-0 Yes 60mg Take 1 Univ ers 60 mg 5-28 capsule by ity of capsule 00:00: mouth in [place] [address] the [facility] morning [place] and 1 capsule in the evening. atomoxetine 2023-0 Yes 60mg Take 1 Univ ers 60 mg 5-28 capsule by ity of capsule 00:00: mouth in [place] [address] the [facility] morning [place] and 1 capsule in the evening. atomoxetine 2023-0 Yes 60mg Take 1 Univ ers 60 mg 5-28 capsule by ity of capsule 00:00: mouth in [place] [address] the Medical morning [place] and 1 capsule in the evening. atomoxetine 2023-0 Yes 60mg Take 1 Univ ers 60 mg 5-28 capsule by ity of capsule 00:00: mouth in [place] [address] the Medical morning [place] and 1 capsule in the evening. atomoxetine 2023-0 Yes 60mg Take 1 Univ ers 60 mg 5-28 capsule by ity of capsule 00:00: mouth in [place] [address] the Medical morning [place] and 1 capsule in the evening. atomoxetine 2023-0 Yes 60mg Take 1 Univ ers 60 mg 5-28 capsule by ity of capsule 00:00: mouth in [address] [address] Medical morning [place] and 1 capsule in the evening. atomoxetine 2023-0 Yes 60mg Take 1 [facility] 60 mg 5-28 capsule by [facility] of capsule 00:00: mouth in [place] [address] the Medical morning Branch and 1 capsule in the evening. atomoxetine 2023-0 Yes 60mg Take 1 [facility] ers 60 mg 5-28 capsule by [facility] of capsule 00:00: mouth in [place] [address] the Medical morning Branch and 1 capsule in the evening. atomoxetine 2023-0 Yes 60mg Take 1 [facility] ers 60 mg 5-28 capsule by [facility] of capsule 00:00: mouth in [place] [address] the Medical morning Branch and 1 capsule in the evening. atomoxetine 2023-0 Yes 60mg Take 1 [facility] ers 60 mg 5-28 capsule by [facility] of capsule 00:00: mouth in [place] [address] the Medical morning Branch and 1 capsule in the evening. atomoxetine 2023-0 Yes 60mg Take 1 [facility] ers 60 mg 5-28 capsule by it[facility] of capsule 00:00: mouth in [place] [address] the Medical morning [place] and 1 capsule in the evening. cloNIDine 2023-0 Yes Take by [facility] rs 0.1 mg 5-26 mouth as ity of tablet 00:00: needed. [place] [address] Medical Branch cloNIDine 2023-0 Yes Take by [facility] 0.1 mg 5-26 mouth as ity of tablet 00:00: needed. [place] [address] Medical Branch cloNIDine 2023-0 Yes Take by [facility] 0.1 mg 5-26 mouth as ity of tablet 00:00: needed. [place] [address] Medical Branch cloNIDine 2023-0 Yes Take by [facility] 0.1 mg 5-26 mouth as ity of tablet 00:00: needed. [place] [address] Medical Branch cloNIDine 2023-0 Yes Take by [facility] 0.1 mg 5-26 mouth as ity of tablet 00:00: needed. [place] [address] Medical Branch cloNIDine 2023-0 Yes Take by [facility] rs 0.1 mg 5-26 mouth as ity of tablet 00:00: needed. [place] [address] Medical Branch cloNIDine 2023-0 Yes Take by [facility] 0.1 mg 5-26 mouth as ity of tablet 00:00: needed. [place] [address] Medical Branch cloNIDine 2023-0 Yes Take by [facility] 0.1 mg 5-26 mouth as ity of tablet 00:00: needed. [place] [address] Medical Branch cloNIDine 2023-0 Yes Take by [facility] 0.1 mg 5-26 mouth as ity of tablet 00:00: needed. [place] [facility] cloNIDine 2023-0 Yes Take by [facility] rs 0.1 mg 5-26 mouth as ity of tablet 00:00: needed. [place] 00 Medical Branch cloNIDine 2023-0 Yes Take by [facility] rs 0.1 mg 5-26 mouth as ity of tablet 00:00: needed. [place] [facility] cloNIDine 2023-0 Yes Take by [facility] 0.1 mg 5-26 mouth as ity of tablet 00:00: needed. [place] [facility] cloNIDine 2023-0 Yes Take by [facility] 0.1 mg 5-26 mouth as ity of tablet 00:00: needed. [place] [facility] cloNIDine 2023-0 Yes Take by [facility] 0.1 mg 5-26 mouth as ity of tablet 00:00: needed. [place] [facility] cloNIDine 2023-0 Yes Take by [facility] 0.1 mg 5-26 mouth as ity of tablet 00:00: needed. [place] [facility] cloNIDine 2023-0 Yes Take by [facility] rs 0.1 mg 5-26 mouth as ity of tablet 00:00: needed. [place] [facility] cloNIDine 2023-0 Yes Take by [facility] 0.1 mg 5-26 mouth as ity of tablet 00:00: needed. [place] [facility] cloNIDine 2023-0 Yes Take by [facility] 0.1 mg 5-26 mouth as ity of tablet 00:00: needed. [place] [facility] cloNIDine 2023-0 Yes Take by [facility] 0.1 mg 5-26 mouth as ity of tablet 00:00: needed. [place] [facility] cloNIDine 2023-0 Yes Take by [facility] rs 0.1 mg 5-26 mouth as ity of tablet 00:00: needed. [place] [facility] cloNIDine 2023-0 Yes Take by [facility] rs 0.1 mg 5-26 mouth as ity of tablet 00:00: needed. [place] [facility] cloNIDine 2023-0 Yes Take by [facility] rs 0.1 mg 5-26 mouth as ity of tablet 00:00: needed. [place] [facility] cloNIDine 2023-0 Yes Take by [facility] rs 0.1 mg 5-26 mouth as ity of tablet 00:00: needed. [place] [facility] cloNIDine 2023-0 Yes Take by [facility] rs 0.1 mg 5-26 mouth as ity of tablet 00:00: needed. [place] [facility] cloNIDine 2023-0 Yes Take by [facility] rs 0.1 mg 5-26 mouth as ity of tablet 00:00: needed. [place] [facility] cloNIDine 2023-0 Yes Take by [facility] rs 0.1 mg 5-26 mouth as ity of tablet 00:00: needed. [place] [facility] cloNIDine 2023-0 Yes Take by [facility] rs 0.1 mg 5-26 mouth as ity of tablet 00:00: needed. [place] [facility] cloNIDine 2023-0 Yes Take by [facility] 0.1 mg 5-26 mouth as ity of tablet 00:00: needed. [place] [facility] cloNIDine 2023-0 Yes Take by [facility] 0.1 mg 5-26 mouth as ity of tablet 00:00: needed. [place] [facility] HYDROcodone 2023-0 Yes 1{tbl} Take 1 [facility] -acetaminop 4-14 tablet by ity of hen 10-325 00:00: mouth in [place] as mg tablet 00 the Medical morning Branch and 1 tablet in the evening. HYDROcodone 2023-0 Yes 1{tbl} Take 1 [facility] -acetaminop 4-14 tablet by ity of hen 10-325 00:00: mouth in [place] mg tablet 00 the Medical morning Branch and 1 tablet in the evening. HYDROcodone 2023-0 Yes 1{tbl} Take 1 [facility] -acetaminop 4-14 tablet by ity of hen 10-325 00:00: mouth in [place] mg tablet 00 the Medical morning Branch and 1 tablet in the evening. HYDROcodone 2023-0 Yes 1{tbl} Take 1 [facility] -acetaminop 4-14 tablet by ity of hen 10-325 00:00: mouth in [place] mg tablet 00 the Medical morning Branch and 1 tablet in the evening. HYDROcodone 2023-0 Yes 1{tbl} Take 1 [facility] -acetaminop 4-14 tablet by ity of hen 10-325 00:00: mouth in [place] mg tablet 00 the Medical morning Branch and 1 tablet in the evening. HYDROcodone 2023-0 Yes 1{tbl} Take 1 [facility] -acetaminop 4-14 tablet by ity of hen 10-325 00:00: mouth in [place] mg tablet 00 the Medical morning Branch and 1 tablet in the evening. HYDROcodone 2023-0 Yes 1{tbl} Take 1 [facility] -acetaminop 4-14 tablet by ity of hen 10-325 00:00: mouth in [place] mg tablet 00 the Medical morning Branch and 1 tablet in the evening. HYDROcodone 2023-0 Yes 1{tbl} Take 1 [facility] -acetaminop 4-14 tablet by ity of hen 10-325 00:00: mouth in [place] mg tablet 00 the Medical morning Branch and 1 tablet in the evening. HYDROcodone 2023-0 Yes 1{tbl} Take 1 [facility] -acetaminop 4-14 tablet by ity of hen 10-325 00:00: mouth in [place] mg tablet 00 the Medical morning Branch and 1 tablet in the evening. HYDROcodone 2023-0 Yes 1{tbl} Take 1 [facility] -acetaminop 4-14 tablet by ity of hen 10-325 00:00: mouth in [place] mg tablet 00 the Medical morning Branch and 1 tablet in the evening. HYDROcodone 2023-0 Yes 1{tbl} Take 1 [facility] -acetaminop 4-14 tablet by ity of hen 10-325 00:00: mouth in [place] mg tablet 00 the Medical morning Branch and 1 tablet in the evening. HYDROcodone 2023-0 Yes 1{tbl} Take 1 [facility] -acetaminop 4-14 tablet by ity of hen 10-325 00:00: mouth in [place] mg tablet 00 the Medical morning Branch and 1 tablet in the evening. HYDROcodone 2023-0 Yes 1{tbl} Take 1 [facility] -acetaminop 4-14 tablet by ity of hen 10-325 00:00: mouth in [place] mg tablet 00 the Medical morning Branch and 1 tablet in the evening. HYDROcodone 2023-0 Yes 1{tbl} Take 1 [facility] -acetaminop 4-14 tablet by ity of hen 10-325 00:00: mouth in [place] mg tablet 00 the Medical morning Branch and 1 tablet in the evening. HYDROcodone 2023-0 Yes 1{tbl} Take 1 [facility] -acetaminop 4-14 tablet by ity of hen 10-325 00:00: mouth in [place] mg tablet 00 the Medical morning Branch and 1 tablet in the evening. HYDROcodone 2023-0 Yes 1{tbl} Take 1 [facility] -acetaminop 4-14 tablet by ity of hen 10-325 00:00: mouth in [place] mg tablet 00 the Medical morning Branch and 1 tablet in the evening. HYDROcodone 2023-0 Yes 1{tbl} Take 1 [facility] -acetaminop 4-14 tablet by ity of hen 10-325 00:00: mouth in [place] mg tablet 00 the Medical morning Branch and 1 tablet in the evening. HYDROcodone 2023-0 Yes 1{tbl} Take 1 [facility] -acetaminop 4-14 tablet by it[facility] of hen 10-325 00:00: mouth in [place] mg tablet 00 the Medical morning Branch and 1 tablet in the evening. HYDROcodone 2023-0 Yes 1{tbl} Take 1 [facility] -acetaminop 4-14 tablet by it[facility] of hen 10-325 00:00: mouth in [place] mg tablet 00 the Medical morning Branch and 1 tablet in the evening. HYDROcodone 2023-0 Yes 1{tbl} Take 1 [facility] -acetaminop 4-14 tablet by it[facility] of hen 10-325 00:00: mouth in [place] mg tablet 00 the Medical morning Branch and 1 tablet in the evening. HYDROcodone 2023-0 Yes 1{tbl} Take 1 [facility] -acetaminop 4-14 tablet by ity of hen 10-325 00:00: mouth in [place] mg tablet 00 the Medical morning Branch and 1 tablet in the evening. HYDROcodone 2023-0 Yes 1{tbl} Take 1 [facility] -acetaminop 4-14 tablet by it[facility] of hen 10-325 00:00: mouth in [place] mg tablet 00 the Medical morning Branch and 1 tablet in the evening. HYDROcodone 2023-0 Yes 1{tbl} Take 1 [facility] -acetaminop 4-14 tablet by ity of hen 10-325 00:00: mouth in [place] mg tablet 00 the Medical morning Branch and 1 tablet in the evening. HYDROcodone 2023-0 Yes 1{tbl} Take 1 [facility] -acetaminop 4-14 tablet by ity of hen 10-325 00:00: mouth in [place] mg tablet 00 the Medical morning Branch and 1 tablet in the evening. HYDROcodone 2023-0 Yes 1{tbl} Take 1 [facility] -acetaminop 4-14 tablet by ity of hen 10-325 00:00: mouth in [place] mg tablet 00 the Medical morning Branch and 1 tablet in the evening. HYDROcodone 2023-0 Yes 1{tbl} Take 1 [facility] -acetaminop 4-14 tablet by ity of hen 10-325 00:00: mouth in [place] mg tablet 00 the Medical morning Branch and 1 tablet in the evening. HYDROcodone 2023-0 Yes 1{tbl} Take 1 [facility] -acetaminop 4-14 tablet by ity of hen 10-325 00:00: mouth in [place] mg tablet 00 the Medical morning Branch and 1 tablet in the evening. HYDROcodone 2023-0 Yes 1{tbl} Take 1 [facility] -acetaminop 4-14 tablet by ity of hen 10-325 00:00: mouth in [place] mg tablet 00 the Medical morning Branch and 1 tablet in the evening. HYDROcodone 2022-0 Yes 1{tbl} Take 1 [facility] -acetaminop 4-14 tablet by ity of hen 10-325 00:00: mouth in [place] as mg tablet 00 the Medical morning Branch and 1 tablet in the evening. phentermine 2022-0 Yes [id number] 37.5mg Take 1 [facility] 37.5 mg 1-04 capsule by ity of capsule 00:00: mouth [place] 00 every Medical morning. Branch levothyroxi 2022-0 Yes [id number] 175ug Take 1 [facility] ne 175 mcg 1-04 tablet by ity of tablet 00:00: mouth [place] 00 every Medical morning. Branch TAKE 1 TABLET DAILY SATURDAY THROUGH SATURDAY, AND 1/2 TABLET ON SATURDAY phentermine 2022-0 Yes [id number] 37.5mg Take 1 [facility] 37.5 mg 1-04 capsule by ity of capsule 00:00: mouth [place] 00 every Medical morning. Branch levothyroxi 2022-0 Yes [id number] 175ug Take 1 [facility] ne 175 mcg 1-04 tablet by ity of tablet 00:00: mouth [place] 00 every Medical morning. Branch TAKE 1 TABLET DAILY SATURDAY THROUGH SATURDAY, AND 1/2 TABLET ON [place] phentermine 2023-0 Yes [id number] 37.5mg Take 1 [facility] 37.5 mg 1-04 capsule by ity of capsule 00:00: mouth [place] 00 every Medical morning. Branch levothyroxi Yes [id number] 175ug Take 1 [facility] ne 175 mcg 1-04 tablet by ity of tablet 00:00: mouth [place] 00 every Medical morning. Branch TAKE 1 TABLET DAILY SATURDAY THROUGH SATURDAY, AND 1/2 TABLET ON SATURDAY phentermine Yes [id number] 37.5mg Take 1 [facility] 37.5 mg 1-04 capsule by ity of capsule 00:00: mouth [place] 00 every Medical morning. Branch levothyroxi Yes [id number] 175ug Take 1 [facility] ne 175 mcg 1-04 tablet by ity of tablet 00:00: mouth [place] 00 every Medical morning. Branch TAKE 1 TABLET DAILY SATURDAY THROUGH SATURDAY, AND 1/2 TABLET ON SATURDAY phentermine Yes [id number] 37.5mg Take 1 [facility] 37.5 mg 1-04 capsule by ity of capsule 00:00: mouth [place] 00 every Medical morning. Branch levothyroxi Yes [id number] 175ug Take 1 [facility] ne 175 mcg 1-04 tablet by ity of tablet 00:00: mouth [place] 00 every Medical morning. Branch TAKE 1 TABLET DAILY SATURDAY THROUGH SATURDAY, AND 1/2 TABLET ON SATURDAY phentermine Yes [id number] 37.5mg Take 1 [facility] 37.5 mg 1-04 capsule by ity of capsule 00:00: mouth [place] 00 every Medical morning. Branch levothyroxi Yes [id number] 175ug Take 1 [facility] ne 175 mcg 1-04 tablet by ity of tablet 00:00: mouth [place] 00 every Medical morning. Branch TAKE 1 TABLET DAILY SATURDAY THROUGH SATURDAY, AND 1/2 TABLET ON SATURDAY phentermine Yes [id number] 37.5mg Take 1 [facility] 37.5 mg 1-04 capsule by ity of capsule 00:00: mouth [place] 00 every Medical morning. Branch levothyroxi Yes [id number] 175ug Take 1 [facility] ne 175 mcg 1-04 tablet by ity of tablet 00:00: mouth [place] 00 every Medical morning. Branch TAKE 1 TABLET DAILY SATURDAY THROUGH SATURDAY, AND 1/2 TABLET ON SATURDAY phentermine Yes [id number] 37.5mg Take 1 [facility] 37.5 mg 1-04 capsule by ity of capsule 00:00: mouth [place] 00 every Medical morning. Branch levothyroxi Yes [id number] 175ug Take 1 [facility] ne 175 mcg 1-04 tablet by ity of tablet 00:00: mouth [place] 00 every Medical morning. Branch TAKE 1 TABLET DAILY SATURDAY THROUGH SATURDAY, AND 1/2 TABLET ON SATURDAY phentermine Yes [id number] 37.5mg Take 1 [facility] 37.5 mg 1-04 capsule by ity of capsule 00:00: mouth [place] 00 every Medical morning. Branch levothyroxi Yes [id number] 175ug Take 1 [facility] ne 175 mcg 1-04 tablet by ity of tablet 00:00: mouth [place] 00 every Medical morning. Branch TAKE 1 TABLET DAILY SATURDAY THROUGH SATURDAY, AND 1/2 TABLET ON SATURDAY phentermine Yes [id number] 37.5mg Take 1 [facility] 37.5 mg 1-04 capsule by ity of capsule 00:00: mouth [place] 00 every Medical morning. Branch levothyroxi Yes [id number] 175ug Take 1 [facility] ne 175 mcg 1-04 tablet by ity of tablet 00:00: mouth [place] 00 every Medical morning. Branch TAKE 1 TABLET DAILY SATURDAY THROUGH SATURDAY, AND 1/2 TABLET ON SATURDAY phentermine Yes [id number] 37.5mg Take 1 [facility] 37.5 mg 1-04 capsule by ity of capsule 00:00: mouth [place] 00 every Medical morning. Branch levothyroxi Yes [id number] 175ug Take 1 [facility] ne 175 mcg 1-04 tablet by ity of tablet 00:00: mouth [place] 00 every Medical morning. Branch TAKE 1 TABLET DAILY SATURDAY THROUGH SATURDAY, AND 1/2 TABLET ON SATURDAY phentermine Yes [id number] 37.5mg Take 1 [facility] 37.5 mg 1-04 capsule by ity of capsule 00:00: mouth [place] 00 every Medical morning. Branch phentermine Yes [id number] 37.5mg Take 1 [facility] 37.5 mg 1-04 capsule by ity of capsule 00:00: mouth [place] 00 every Medical morning. Branch topiramate 0 Yes [id number] 25mg Take 1 [facility] 25 mg 1-04 tablet by ity of tablet 00:00: mouth in [place] 00 the Medical morning. Branch levothyroxi Yes [id number] 175ug Take 1 [facility] ne 175 mcg 1-04 tablet by ity of tablet 00:00: mouth [place] 00 every Medical morning. Branch TAKE 1 TABLET DAILY SATURDAY THROUGH SATURDAY, AND 1/2 TABLET ON SATURDAY phentermine 2022-0 Yes [id number] 37.5mg Take 1 [facility] 37.5 mg 1-04 capsule by ity of capsule 00:00: mouth [place] 00 every Medical morning. Branch topiramate Yes [id number] 25mg Take 1 [facility] 25 mg 1-04 tablet by ity of tablet 00:00: mouth in [place] 00 the Medical morning. Branch levothyroxi Yes [id number] 175ug Take 1 [facility] ne 175 mcg 1-04 tablet by ity of tablet 00:00: mouth [place] 00 every Medical morning. Branch TAKE 1 TABLET DAILY SATURDAY THROUGH SATURDAY, AND 1/2 TABLET ON SATURDAY phentermine 2022-0 Yes [id number] 37.5mg Take 1 [facility] 37.5 mg 1-04 capsule by ity of capsule 00:00: mouth [place] 00 every Medical morning. Branch topiramate Yes [id number] 25mg Take 1 [facility] 25 mg 1-04 tablet by ity of tablet 00:00: mouth in [place] 00 the Medical morning. Branch levothyroxi Yes [id number] 175ug Take 1 [facility] ne 175 mcg 1-04 tablet by ity of tablet 00:00: mouth [place] 00 every Medical morning. Branch TAKE 1 TABLET DAILY SATURDAY THROUGH SATURDAY, AND 1/2 TABLET ON SATURDAY phentermine 2022-0 Yes [id number] 37.5mg Take 1 [facility] 37.5 mg 1-04 capsule by ity of capsule 00:00: mouth [place] 00 every Medical morning. Branch topiramate 2022- Yes [id number] 25mg Take 1 [facility] 25 mg 1-04 tablet by ity of tablet 00:00: mouth in [place] 00 the Medical morning. Branch levothyroxi Yes [id number] 175ug Take 1 [facility] ne 175 mcg 1-04 tablet by ity of tablet 00:00: mouth [place] 00 every Medical morning. Branch TAKE 1 TABLET DAILY SATURDAY THROUGH SATURDAY, AND 1/2 TABLET ON SATURDAY phentermine Yes [id number] 37.5mg Take 1 [facility] 37.5 mg 1-04 capsule by ity of capsule 00:00: mouth [place] 00 every Medical morning. Branch topiramate Yes [id number] 25mg Take 1 [facility] 25 mg 1-04 tablet by ity of tablet 00:00: mouth in [place] 00 the Medical morning. Branch levothyroxi Yes [id number] 175ug Take 1 [facility] ne 175 mcg 1-04 tablet by ity of tablet 00:00: mouth [place] 00 every Medical morning. Branch TAKE 1 TABLET DAILY SATURDAY THROUGH SATURDAY, AND 1/2 TABLET ON SATURDAY phentermine Yes [id number] 37.5mg Take 1 [facility] 37.5 mg 1-04 capsule by ity of capsule 00:00: mouth [place] 00 every Medical morning. Branch topiramate Yes [id number] 25mg Take 1 [facility] 25 mg 1-04 tablet by ity of tablet 00:00: mouth in [place] 00 the Medical morning. Branch levothyroxi Yes [id number] 175ug Take 1 [facility] ne 175 mcg 1-04 tablet by ity of tablet 00:00: mouth [place] 00 every Medical morning. Branch TAKE 1 TABLET DAILY SATURDAY THROUGH SATURDAY, AND 1/2 TABLET ON SATURDAY phentermine Yes [id number] 37.5mg Take 1 [facility] 37.5 mg 1-04 capsule by ity of capsule 00:00: mouth [place] 00 every Medical morning. Branch topiramate Yes [id number] 25mg Take 1 [facility] 25 mg 1-04 tablet by ity of tablet 00:00: mouth in [place] 00 the Medical morning. Branch levothyroxi Yes [id number] 175ug Take 1 [facility] ne 175 mcg 1-04 tablet by ity of tablet 00:00: mouth [place] 00 every Medical morning. Branch TAKE 1 TABLET DAILY SATURDAY THROUGH SATURDAY, AND 1/2 TABLET ON SATURDAY phentermine Yes [id number] 37.5mg Take 1 [facility] 37.5 mg 1-04 capsule by ity of capsule 00:00: mouth [place] 00 every Medical morning. [facility] topiramate Yes [id number] 25mg Take 1 [facility] 25 mg 1-04 tablet by ity of tablet 00:00: mouth in [place] 00 the Medical morning. [facility] levothyroxi Yes [id number] 175ug Take 1 [facility] ne 175 mcg 1-04 tablet by ity of tablet 00:00: mouth [place] 00 every Medical morning. Branch TAKE 1 TABLET DAILY SATURDAY THROUGH SATURDAY, AND 1/2 TABLET ON SATURDAY phentermine Yes [id number] 37.5mg Take 1 [facility] 37.5 mg 1-04 capsule by ity of capsule 00:00: mouth [place] 00 every Medical morning. [facility] levothyroxi Yes [id number] 175ug Take 1 [facility] ne 175 mcg 1-04 tablet by ity of tablet 00:00: mouth [place] 00 every Medical morning. Branch TAKE 1 TABLET DAILY SATURDAY THROUGH SATURDAY, AND 1/2 TABLET ON SATURDAY phentermine 0 Yes [id number] 37.5mg Take 1 [facility] 37.5 mg 1-04 capsule by ity of capsule 00:00: mouth [place] 00 every Medical morning. [facility] levothyroxi Yes [id number] 175ug Take 1 [facility] ne 175 mcg 1-04 tablet by ity of tablet 00:00: mouth [place] 00 every Medical morning. Branch TAKE 1 TABLET DAILY SATURDAY THROUGH SATURDAY, AND 1/2 TABLET ON SATURDAY phentermine 2022-2022- No [id number] 37.5mg Take 1 [facility] 37.5 mg 1-04 06-26 capsule by ity o f capsule 00:00: 00:00 mouth [place] 00 :00 every Medical morning. Branch phentermine 2022-2022- No [id number] 37.5mg Take 1 [facility] 37.5 mg 1-04 06-26 capsule by ity o f capsule 00:00: 00:00 mouth [place] 00 :00 every Medical morning. [facility] phentermine 2022- No [id number] 37.5mg Take 1 [facility] 37.5 mg 1-04 06-26 capsule by ity o f capsule 00:00: 00:00 mouth [place] 00 :00 every Medical morning. [facility] phentermine 2022- No [id number] 37.5mg Take 1 [facility] 37.5 mg 02-28 capsule by ity o f capsule 00:00: 00:00 mouth [place] 00 :00 every Medical morning. [facility] phentermine 2022- No [id number] 37.5mg Take 1 [facility] 37.5 mg 02-28 capsule by ity o f capsule 00:00: 00:00 mouth [place] 00 :00 every Medical morning. [facility] levothyroxi 2022- No [id number] 175ug Take 1 [facility] ne 175 mcg 02-28 tablet by ity of tablet 00:00: 00:00 mouth [place] 00 :00 every Medical morning. Branch TAKE 1 TABLET DAILY SATURDAY THROUGH SATURDAY, AND 1/2 TABLET ON SATURDAY levothyroxi 2022- No [id number] 175ug Take 1 [facility] ne 175 mcg 02-28 tablet by ity of tablet 00:00: 00:00 mouth [place] 00 :00 every Medical morning. Branch TAKE 1 TABLET DAILY SATURDAY THROUGH SATURDAY, AND 1/2 TABLET ON SATURDAY levothyroxi 2022- No [id number] 175ug Take 1 [facility] ne 175 mcg 02-28 tablet by ity of tablet 00:00: 00:00 mouth [place] 00 :00 every Medical morning. Branch TAKE 1 TABLET DAILY SATURDAY THROUGH SATURDAY, AND 1/2 TABLET ON SATURDAY levothyroxi 2022- No [id number] 175ug Take 1 [facility] ne 175 mcg 02-28 tablet by ity of tablet 00:00: 00:00 mouth [place] 00 :00 every Medical morning. Branch TAKE 1 TABLET DAILY SATURDAY THROUGH SATURDAY, AND 1/2 TABLET ON SATURDAY levothyroxi 2022- No [id number] 175ug Take 1 [facility] ne 175 mcg 02-28 tablet by ity of tablet 00:00: 00:00 mouth [place] 00 :00 every Medical morning. Branch TAKE 1 TABLET DAILY SATURDAY THROUGH SATURDAY, AND 1/2 TABLET ON SATURDAY topiramate 2022- No [id number] 25mg Take 1 [facility] 25 mg 1-04 05-31 tablet by ity of tablet 00:00: 00:00 mouth in [place] 00 :00 the Medical morning. [place] phentermine 2021-02 Yes [id number] 37.5mg Take 1 [facility] 37.5 mg 0-26 capsule by ity of capsule 00:00: mouth [place] 00 every Medical morning. [place] phentermine 2021-02- No [id number] 37.5mg Take 1 [facility] 37.5 mg 0-26 01-04 capsule by ity o f capsule 00:00: 00:00 mouth [place] 00 :00 every Medical morning. [place] phentermine 2021-02- No [id number] 37.5mg Take 1 [facility] 37.5 mg 0-26 01-04 capsule by ity o f capsule 00:00: 00:00 mouth [place] 00 :00 every Medical morning. [place] semaglutide 2021-02 Yes [id number] .25mg inject [facility] , weight 0-03 0.25 mg ity of loss, 00:00: under the [place] ([facility]) 00 skin Medical 0.25 mg/0.5 weekly. Branc h mL PnIj SC injection topiramate 2021-02 Yes [id number] 25mg Take 1 [facility] 25 mg 0-03 tablet by ity of tablet 00:00: mouth in [place] 00 the Medical morning. [place] semaglutide 2021-02 Yes [id number] .25mg inject [facility] , weight 0-03 0.25 mg ity of loss, 00:00: under the [place] ([facility]) 00 skin Medical 0.25 mg/0.5 weekly. Branc h mL PnIj SC injection topiramate 2021-02 Yes [id number] 25mg Take 1 [facility] 25 mg 0-03 tablet by ity of tablet 00:00: mouth in [place] 00 the Medical morning. [place] semaglutide 2021-02 Yes [id number] .25mg inject [facility] , weight 0-03 0.25 mg ity of loss, 00:00: under the [place] ([facility]) 00 skin Medical 0.25 mg/0.5 weekly. Branc h mL PnIj SC injection topiramate 2021-02 Yes [id number] 25mg Take 1 [facility] 25 mg 0-03 tablet by ity of tablet 00:00: mouth in [place] 00 the Medical morning. Branch semaglutide 2021-02 Yes [id number] .25mg inject [facility] , weight 0-03 0.25 mg ity of loss, 00:00: under the [place] ([facility]) 00 skin Medical 0.25 mg/0.5 weekly. Branc h mL PnIj SC injection topiramate 2021-02 Yes [id number] 25mg Take 1 [facility] 25 mg 0-03 tablet by ity of tablet 00:00: mouth in [place] 00 the Medical morning. Branch semaglutide 2021-02 Yes [id number] .25mg inject [facility] , weight 0-03 0.25 mg ity of loss, 00:00: under the [place] ([facility]) 00 skin Medical 0.25 mg/0.5 weekly. Branc h mL PnIj SC injection topiramate 2021-02 Yes [id number] 25mg Take 1 [facility] 25 mg 0-03 tablet by ity of tablet 00:00: mouth in [place] 00 the Medical morning. Branch topiramate 2021-02 Yes [id number] 25mg Take 1 [facility] 25 mg 0-03 tablet by ity of tablet 00:00: mouth in [place] 00 the Medical morning. Branch topiramate 2021-02- No [id number] 25mg Take 1 [facility] 25 mg 0-03 01-04 tablet by ity of tablet 00:00: 00:00 mouth in [place] 00 :00 the Medical morning. Branch topiramate 2021-02- No [id number] 25mg Take 1 [facility] 25 mg 0-03 01-04 tablet by ity of tablet 00:00: 00:00 mouth in [place] 00 :00 the Medical morning. Branch semaglutide 2021-02- No [id number] .25mg inject [facility] , weight 0-03 10-26 0.25 mg ity of loss, 00:00: 00:00 under the [place] ([facility]) 00 :00 skin Medical 0.25 mg/0.5 weekly. Branc h mL PnIj SC injection topiramate Yes [id number] TAKE 1 [facility] 25 mg 9-30 TABLET BY ity of tablet 00:00: MOUTH [place] 00 EVERY DAY Medical Branch topiramate 2021- No [id number] TAKE 1 [facility] 25 mg 9-30 10-03 TABLET BY ity of tablet 00:00: 00:00 MOUTH [place] 00 :00 EVERY DAY [facility] topiramate 2021-0 2021- No [id number] TAKE 1 [facility] 25 mg 9-30 10-03 TABLET BY ity of tablet 00:00: 00:00 MOUTH [place] 00 :00 EVERY DAY [facility] PHENTERMINE 2021-0 Yes [id number] TAKE 1 [facility] 37.5 mg 8-28 CAPSULE BY ity of capsule 00:00: MOUTH [place] 00 EVERY DAY Medical IN THE [place] MORNING PHENTERMINE 2021-0 Yes [id number] TAKE 1 [facility] 37.5 mg 8-28 CAPSULE BY ity of capsule 00:00: MOUTH [place] 00 EVERY DAY Medical IN THE [place] MORNING PHENTERMINE 2021-2021- No [id number] TAKE 1 [facility] 37.5 mg 8-28 10-03 CAPSULE BY ity o f capsule 00:00: 00:00 MOUTH [place] 00 :00 EVERY DAY Medical IN THE [place] MORNING PHENTERMINE 2021-0 2021- No [id number] TAKE 1 [facility] 37.5 mg 8-28 10-03 CAPSULE BY ity o f capsule 00:00: 00:00 MOUTH [place] 00 :00 EVERY DAY Medical IN THE [place] MORNING levothyroxi Yes [id number] TAKE 1 [facility] ne 175 mcg 7-30 TABLET ity of tablet 00:00: DAILY [place] Saturday THROUGH [place] SATURDAY, AND 1/2 TABLET ON SATURDAY. levothyroxi 2021- Yes [id number] TAKE 1 [facility] ne 175 mcg 7-30 TABLET ity of tablet 00:00: DAILY [place] Saturday [facility] THROUGH [place] SATURDAY, AND 1/2 TABLET ON SATURDAY. levothyroxi 2021- Yes [id number] TAKE 1 [facility] ne 175 mcg 7-30 TABLET ity of tablet 00:00: DAILY [place] Saturday [facility] THROUGH [place] SATURDAY, AND 1/2 TABLET ON SATURDAY. levothyroxi 2021- Yes [id number] TAKE 1 [facility] ne 175 mcg 7-30 TABLET ity of tablet 00:00: DAILY [place] Saturday THROUGH [place] SATURDAY, AND 1/2 TABLET ON SATURDAY. levothyroxi 2021- Yes [id number] TAKE 1 [facility] ne 175 mcg 7-30 TABLET ity of tablet 00:00: DAILY [place] Saturday, AND 1/2 TABLET ON SATURDAY. levothyroxi Yes [id number] TAKE 1 [facility] ne 175 mcg 7-30 TABLET ity of tablet 00:00: DAILY [place] 00 Saturday, AND 1/2 TABLET ON SATURDAY. levothyroxi Yes [id number] TAKE 1 [facility] ne 175 mcg 7-30 TABLET ity of tablet 00:00: DAILY [place] Saturday, AND 1/2 TABLET ON SATURDAY. levothyroxi Yes [id number] TAKE 1 [facility] ne 175 mcg 7-30 TABLET ity of tablet 00:00: DAILY [place] Saturday, AND 1/2 TABLET ON SATURDAY. levothyroxi Yes [id number] TAKE 1 [facility] ne 175 mcg 7-30 TABLET ity of tablet 00:00: DAILY Saturday, AND 1/2 TABLET ON SATURDAY. levothyroxi 2022- No [id number] TAKE 1 [facility] ne 175 mcg 7-30 01-04 TABLET ity of tablet 00:00: 00:00 DAILY [place] 00 :00 Saturday, AND 1/2 TABLET ON SATURDAY. levothyroxi 2022- No [id number] TAKE 1 [facility] ne 175 mcg 7-30 01-04 TABLET ity of tablet 00:00: 00:00 DAILY [place] 00 :00 Saturday, AND 1/2 TABLET ON SATURDAY. hydrocortis Yes [id number] 100mg 2 mL by [facility] one sod 6-29 [facility] it[facility] of succ 00:00: lar route [place] (SOLU-AMY 00 as needed Med ical F) 100 mg (for when Branc h injection patient is unconsciou s). hydrocortis Yes [id number] 10mg Take 1 [facility] one 10 mg 6-29 tablet by ity o f tablet 00:00: mouth 2 [place] 00 (two) Medical times [place] daily. hydrocortis Yes [id number] 100mg 2 mL by [facility] one sod 6-29 [facility] it[facility] of succ 00:00: lar route [place] (SOLU-AMY 00 as needed Med ical F) 100 mg (for when Branc h injection patient is unconsciou s). hydrocortis 2021-0 Yes [id number] 10mg Take 1 [facility] one 10 mg 6-29 tablet by ity o f tablet 00:00: mouth 2 (two) Medical times Branch daily. hydrocortis 0 Yes [id number] 100mg 2 mL by [facility] one sod 6-29 [facility] ity of succ 00:00: lar route [place] (SOLU-AMY 00 as needed Med ical F) 100 mg (for when Branc h injection patient is unconsciou s). hydrocortis 0 Yes [id number] 10mg Take 1 [facility] one 10 mg 6-29 tablet by ity o f tablet 00:00: mouth 2 (two) Medical times Branch daily. hydrocortis 0 Yes [id number] 100mg 2 mL by [facility] one sod 6-29 [facility] ity of succ 00:00: lar route [place] (SOLU-AMY 00 as needed Med ical F) 100 mg (for when Branc h injection patient is unconsciou s). hydrocortis 0 Yes [id number] 10mg Take 1 [facility] one 10 mg 6-29 tablet by ity o f tablet 00:00: mouth 2 (two) Medical times Branch daily. hydrocortis 0 Yes [id number] 100mg 2 mL by [facility] one sod 6-29 [facility] ity of succ 00:00: lar route [place] (SOLU-AMY 00 as needed Med ical F) 100 mg (for when Branc h injection patient is unconsciou s). hydrocortis 0 Yes [id number] 10mg Take 1 [facility] one 10 mg 6-29 tablet by ity o f tablet 00:00: mouth 2 (two) Medical times Branch daily. hydrocortis 2021-0 Yes [id number] 100mg 2 mL by [facility] one sod 6-29 [facility] ity of succ 00:00: lar route [place] (SOLU-AMY 00 as needed Med ical F) 100 mg (for when Branc h injection patient is unconsciou s). hydrocortis 2021-0 Yes [id number] 10mg Take 1 [facility] one 10 mg 6-29 tablet by ity o f tablet 00:00: mouth 2 (two) Medical times Branch daily. hydrocortis 2021-0 Yes [id number] 100mg 2 mL by [facility] one sod 6-29 [facility] ity of succ 00:00: lar route [place] (SOLU-AMY 00 as needed Med ical F) 100 mg (for when Branc h injection patient is unconsciou s). hydrocortis 0 Yes [id number] 10mg Take 1 [facility] one 10 mg 6-29 tablet by ity o f tablet 00:00: mouth 2 (two) Medical times Branch daily. hydrocortis 2021-0 Yes [id number] 100mg 2 mL by [facility] one sod 6-29 [facility] ity of succ 00:00: lar route [place] (SOLU-AMY 00 as needed Med ical F) 100 mg (for when Branc h injection patient is unconsciou s). hydrocortis 2021-0 Yes [id number] 10mg Take 1 [facility] one 10 mg 6-29 tablet by ity o f tablet 00:00: mouth 2 (two) Medical times Branch daily. hydrocortis 2021-0 Yes [id number] 100mg 2 mL by [facility] one sod 6-29 [facility] ity of succ 00:00: lar route [place] (SOLU-AMY 00 as needed Med ical F) 100 mg (for when Branc h injection patient is unconsciou s). hydrocortis 2021-0 Yes [id number] 10mg Take 1 [facility] one 10 mg 6-29 tablet by ity o f tablet 00:00: mouth 2 (two) Medical times Branch daily. hydrocortis 0 Yes [id number] 100mg 2 mL by [facility] one sod 6-29 [facility] ity of succ 00:00: lar route [place] (SOLU-AMY 00 as needed Med ical F) 100 mg (for when Branc h injection patient is unconsciou s). hydrocortis 2021-0 Yes [id number] 10mg Take 1 [facility] one 10 mg 6-29 tablet by ity o f tablet 00:00: mouth 2 (two) Medical times Branch daily. hydrocortis 2021-0 Yes [id number] 100mg 2 mL by [facility] one sod 6-29 [facility] ity of succ 00:00: lar route [place] (SOLU-AMY 00 as needed Med ical F) 100 mg (for when Branc h injection patient is unconsciou s). hydrocortis 0 Yes [id number] 10mg Take 1 [facility] one 10 mg 6-29 tablet by ity o f tablet 00:00: mouth 2 (two) Medical times Branch daily. hydrocortis 0 Yes [id number] 100mg 2 mL by [facility] one sod 6-29 [facility] ity of succ 00:00: lar route [place] (SOLU-AMY 00 as needed Med ical F) 100 mg (for when Branc h injection patient is unconsciou s). hydrocortis 0 Yes [id number] 10mg Take 1 [facility] one 10 mg 6-29 tablet by ity o f tablet 00:00: mouth 2 (two) Medical times Branch daily. hydrocortis 0 Yes [id number] 100mg 2 mL by [facility] one sod 6-29 [facility] ity of succ 00:00: lar route [place] (SOLU-AMY 00 as needed Med ical F) 100 mg (for when Branc h injection patient is unconsciou s). hydrocortis 0 Yes [id number] 10mg Take 1 [facility] one 10 mg 6-29 tablet by ity o f tablet 00:00: mouth 2 (two) Medical times Branch daily. hydrocortis 0 Yes [id number] 100mg 2 mL by [facility] one sod 6-29 [facility] ity of succ 00:00: lar route [place] (SOLU-AMY 00 as needed Med ical F) 100 mg (for when Branc h injection patient is unconsciou s). hydrocortis 0 Yes [id number] 10mg Take 1 [facility] one 10 mg 6-29 tablet by ity o f tablet 00:00: mouth 2 (two) Medical times Branch daily. hydrocortis 0 Yes [id number] 100mg 2 mL by [facility] one sod 6-29 [facility] ity of succ 00:00: lar route [place] (SOLU-AMY 00 as needed Med ical F) 100 mg (for when Branc h injection patient is unconsciou s). hydrocortis 2021-0 Yes [id number] 10mg Take 1 [facility] one 10 mg 6-29 tablet by ity o f tablet 00:00: mouth 2 (two) Medical times Branch daily. hydrocortis 2021-0 Yes [id number] 100mg 2 mL by [facility] one sod 6-29 [facility] ity of succ 00:00: lar route [place] (SOLU-AMY 00 as needed Med ical F) 100 mg (for when Branc h injection patient is unconsciou s). hydrocortis 0 Yes [id number] 10mg Take 1 [facility] one 10 mg 6-29 tablet by ity o f tablet 00:00: mouth 2 (two) Medical times Branch daily. hydrocortis 0 Yes [id number] 100mg 2 mL by [facility] one sod 6-29 [facility] ity of succ 00:00: lar route [place] (SOLU-AMY 00 as needed Med ical F) 100 mg (for when Branc h injection patient is unconsciou s). hydrocortis 0 Yes [id number] 10mg Take 1 [facility] one 10 mg 6-29 tablet by ity o f tablet 00:00: mouth 2 (two) Medical times Branch daily. hydrocortis 0 Yes [id number] 100mg 2 mL by [facility] one sod 6-29 [facility] ity of succ 00:00: lar route [place] (SOLU-AMY 00 as needed Med ical F) 100 mg (for when Branc h injection patient is unconsciou s). hydrocortis 0 Yes [id number] 10mg Take 1 [facility] one 10 mg 6-29 tablet by ity o f tablet 00:00: mouth 2 (two) Medical times Branch daily. hydrocortis 2021-0 Yes [id number] 100mg 2 mL by [facility] one sod 6-29 [facility] ity of succ 00:00: lar route [place] (SOLU-AMY 00 as needed Med ical F) 100 mg (for when Branc h injection patient is unconsciou s). hydrocortis 2021-0 Yes [id number] 10mg Take 1 [facility] one 10 mg 6-29 tablet by ity o f tablet 00:00: mouth 2 (two) Medical times Branch daily. hydrocortis 2021-0 Yes [id number] 100mg 2 mL by [facility] one sod 6-29 [facility] ity of succ 00:00: lar route [place] (SOLU-AMY 00 as needed Med ical F) 100 mg (for when Branc h injection patient is unconsciou s). hydrocortis 2021-0 Yes [id number] 10mg Take 1 [facility] one 10 mg 6-29 tablet by ity o f tablet 00:00: mouth (two) Medical times Branch daily. hydrocortis 2021-0 Yes [id number] 100mg 2 mL by [facility] one sod 6-29 [facility] ity of succ 00:00: lar route [place] (SOLU-AMY 00 as needed Med ical F) 100 mg (for when Branc h injection patient is unconsciou s). hydrocortis 2021-0 Yes [id number] 10mg Take 1 [facility] one 10 mg 6-29 tablet by ity o f tablet 00:00: mouth (two) Medical times Branch daily. hydrocortis 0 Yes [id number] 100mg 2 mL by [facility] one sod 6-29 Intr[facility] ity of succ 00:00: lar route [place] (SOLU-AMY 00 as needed Med ical F) 100 mg (for when Branc h injection patient is unconsciou s). hydrocortis 2021-0 Yes [id number] 10mg Take 1 [facility] one 10 mg 6-29 tablet by ity o f tablet 00:00: mouth (two) Medical times Branch daily. hydrocortis 2021-0 Yes [id number] 100mg 2 mL by [facility] one sod 6-29 [facility] ity of succ 00:00: lar route [place] (SOLU-AMY 00 as needed Med ical F) 100 mg (for when Branc h injection patient is unconsciou s). hydrocortis 2021-0 Yes [id number] 10mg Take 1 [facility] one 10 mg 6-29 tablet by ity o f tablet 00:00: mouth 2 (two) Medical times Branch daily. hydrocortis 2021-0 Yes [id number] 100mg 2 mL by [facility] one sod 6-29 [facility] ity of succ 00:00: lar route [place] (SOLU-AMY 00 as needed Med ical F) 100 mg (for when Branc h injection patient is unconsciou s). hydrocortis 0 Yes [id number] 10mg Take 1 [facility] one 10 mg 6-29 tablet by ity o f tablet 00:00: mouth 2 (two) Medical times Branch daily. hydrocortis 0 Yes [id number] 100mg 2 mL by [facility] one sod 6-29 [facility] ity of succ 00:00: lar route [place] (SOLU-AMY 00 as needed Med ical F) 100 mg (for when Branc h injection patient is unconsciou s). hydrocortis 0 Yes [id number] 10mg Take 1 [facility] one 10 mg 6-29 tablet by ity o f tablet 00:00: mouth 2 (two) Medical times Branch daily. hydrocortis 0 Yes [id number] 100mg 2 mL by [facility] one sod 6-29 [facility] ity of succ 00:00: lar route [place] (SOLU-AMY 00 as needed Med ical F) 100 mg (for when Branc h injection patient is unconsciou s). hydrocortis 0 Yes [id number] 10mg Take 1 [facility] one 10 mg 6-29 tablet by ity o f tablet 00:00: mouth 2 (two) Medical times Branch daily. hydrocortis 0 Yes [id number] 100mg 2 mL by [facility] one sod 6-29 [facility] ity of succ 00:00: lar route [place] (SOLU-AMY 00 as needed Med ical F) 100 mg (for when Branc h injection patient is unconsciou s). hydrocortis 0 Yes [id number] 10mg Take 1 [facility] one 10 mg 6-29 tablet by ity o f tablet 00:00: mouth 2 (two) Medical times Branch daily. hydrocortis 0 Yes [id number] 100mg 2 mL by [facility] one sod 6-29 Intr[facility] ity of succ 00:00: lar route [place] (SOLU-AMY 00 as needed Med ical F) 100 mg (for when Branc h injection patient is unconsciou s). hydrocortis 2021-0 Yes [id number] 10mg Take 1 [facility] one 10 mg 6-29 tablet by ity o f tablet 00:00: mouth 2 (two) Medical times Branch daily. hydrocortis 0 Yes [id number] 100mg 2 mL by [facility] one sod 6-29 Intr[facility]cu ity of succ 00:00: lar route [place] (SOLU-AMY 00 as needed Med ical F) 100 mg (for when Branc h injection patient is unconsciou s). hydrocortis 0 Yes [id number] 10mg Take 1 [facility] one 10 mg 6-29 tablet by ity o f tablet 00:00: mouth 2 (two) Medical times Branch daily. hydrocortis 0 Yes [id number] 100mg 2 mL by [facility] one sod 6-29 [facility] ity of succ 00:00: lar route [place] (SOLU-AMY 00 as needed Med ical F) 100 mg (for when Branc h injection patient is unconsciou s). hydrocortis Yes [id number] 10mg Take 1 [facility] one 10 mg 6-29 tablet by ity o f tablet 00:00: mouth (two) Medical times Branch daily. hydrocortis 0 Yes [id number] 100mg 2 mL by [facility] one sod 6-29 [facility] ity of succ 00:00: lar route [place] (SOLU-AMY 00 as needed Med ical F) 100 mg (for when Branc h injection patient is unconsciou s). hydrocortis 0 Yes [id number] 10mg Take 1 [facility] one 10 mg 6-29 tablet by ity o f tablet 00:00: mouth 2 (two) Medical times Branch daily. hydrocortis 0 Yes [id number] 100mg 2 mL by [facility] one sod 6-29 [facility] ity of succ 00:00: lar route [place] (SOLU-AMY 00 as needed Med ical F) 100 mg (for when Branc h injection patient is unconsciou s). hydrocortis 0 Yes [id number] 10mg Take 1 [facility] one 10 mg 6-29 tablet by ity o f tablet 00:00: mouth 2 (two) Medical times Branch daily. hydrocortis 2022-0 Yes [id number] 100mg 2 mL by [facility] one sod 6-29 [facility] ity of succ 00:00: lar route [place] (SOLU-AMY 00 as needed Med ical F) 100 mg (for when Branc h injection patient is unconsciou s). hydrocortis 0 Yes [id number] 10mg Take 1 [facility] one 10 mg 6-29 tablet by ity o f tablet 00:00: mouth 2 (two) Medical times Branch daily. hydrocortis 0 Yes [id number] 100mg 2 mL by [facility] one sod 6-29 [facility] ity of succ 00:00: lar route [place] (SOLU-AMY 00 as needed Med ical F) 100 mg (for when Branc h injection patient is unconsciou s). hydrocortis Yes [id number] 10mg Take 1 [facility] one 10 mg 6-29 tablet by ity o f tablet 00:00: mouth 2 (two) Medical times Branch daily. hydrocortis Yes [id number] 100mg 2 mL by [facility] one sod 6-29 [facility] ity of succ 00:00: lar route [place] (SOLU-AMY 00 as needed Med ical F) 100 mg (for when Branc h injection patient is unconsciou s). hydrocortis Yes [id number] 10mg Take 1 [facility] one 10 mg 6-29 tablet by ity o f tablet 00:00: mouth 2 (two) Medical times Branch daily. hydrocortis 0 Yes [id number] 100mg 2 mL by [facility] one sod 6-29 [facility] ity of succ 00:00: lar route [place] (SOLU-AMY 00 as needed Med ical F) 100 mg (for when Branc h injection patient is unconsciou s). hydrocortis 0 Yes [id number] 10mg Take 1 [facility] one 10 mg 6-29 tablet by ity o f tablet 00:00: mouth 2 (two) Medical times Branch daily. hydrocortis 0 Yes [id number] 100mg 2 mL by [facility] one sod 6-29 [facility] ity of succ 00:00: lar route [place] (SOLU-AMY 00 as needed Med ical F) 100 mg (for when Branc h injection patient is unconsciou s). hydrocortis 0 Yes [id number] 10mg Take 1 [facility] one 10 mg 6-29 tablet by ity o f tablet 00:00: mouth 2 (two) Medical times Branch daily. hydrocortis 0 Yes [id number] 100mg 2 mL by [facility] one sod 6-29 [facility] ity of succ 00:00: lar route [place] (SOLU-AMY 00 as needed Med ical F) 100 mg (for when Branc h injection patient is unconsciou s). hydrocortis Yes [id number] 10mg Take 1 [facility] one 10 mg 6-29 tablet by ity o f tablet 00:00: mouth 2 (two) Medical times Branch daily. hydrocortis Yes [id number] 100mg 2 mL by [facility] one sod 6-29 [facility] ity of succ 00:00: lar route [place] (SOLU-AMY 00 as needed Med ical F) 100 mg (for when Branc h injection patient is unconsciou s). hydrocortis Yes [id number] 10mg Take 1 [facility] one 10 mg 6-29 tablet by ity o f tablet 00:00: mouth 2 (two) Medical times Branch daily. hydrocortis 0 Yes [id number] 100mg 2 mL by [facility] one sod 6-29 [facility] ity of succ 00:00: lar route [place] (SOLU-AMY 00 as needed Med ical F) 100 mg (for when Branc h injection patient is unconsciou s). hydrocortis 0 Yes [id number] 100mg 2 mL by [facility] one sod 6-29 [facility] ity of succ 00:00: lar route [place] (SOLU-AMY 00 as needed Med ical F) 100 mg (for when Branc h injection patient is unconsciou s). hydrocortis 0 Yes [id number] 100mg 2 mL by [facility] one sod 6-29 [facility] ity of succ 00:00: lar route [place] (SOLU-AMY 00 as needed Med ical F) 100 mg (for when Branc h injection patient is unconsciou s). hydrocortis 0 Yes [id number] 100mg 2 mL by [facility] one sod 6-29 [facility] ity of succ 00:00: lar route [place] (SOLU-AMY 00 as needed Med ical F) 100 mg (for when Branc h injection patient is unconsciou s). hydrocortis Yes [id number] 100mg 2 mL by [facility] one sod 6-29 [facility] ity of succ 00:00: lar route [place] (SOLU-AMY 00 as needed Med ical F) 100 mg (for when Branc h injection patient is unconsciou s). hydrocortis Yes [id number] 100mg 2 mL by [facility] one sod 6-29 [facility] ity of succ 00:00: lar route [place] (SOLU-AMY 00 as needed Med ical F) 100 mg (for when Branc h injection patient is unconsciou s). hydrocortis Yes [id number] 100mg 2 mL by [facility] one sod 6-29 [facility] ity of succ 00:00: lar route [place] (SOLU-AMY 00 as needed Med ical F) 100 mg (for when Branc h injection patient is unconsciou s). hydrocortis Yes [id number] 100mg 2 mL by [facility] one sod 6-29 [facility] ity of succ 00:00: lar route [place] (SOLU-AMY 00 as needed Med ical F) 100 mg (for when Branc h injection patient is unconsciou s). hydrocortis Yes [id number] 100mg 2 mL by [facility] one sod 6-29 [facility] ity of succ 00:00: lar route [place] (SOLU-AMY 00 as needed Med ical F) 100 mg (for when Branc h injection patient is unconsciou s). hydrocortis Yes [id number] 100mg 2 mL by [facility] one sod 6-29 [facility] ity of succ 00:00: lar route [place] (SOLU-AMY 00 as needed Med ical F) 100 mg (for when Branc h injection patient is unconsciou s). hydrocortis Yes [id number] 100mg 2 mL by [facility] one sod 6-29 [facility] ity of succ 00:00: lar route [place] (SOLU-AMY 00 as needed Med ical F) 100 mg (for when Branc h injection patient is unconsciou s). hydrocortis Yes [id number] 100mg 2 mL by [facility] one sod 6-29 [facility] ity of succ 00:00: lar route [place] (SOLU-AMY 00 as needed Med ical F) 100 mg (for when Branc h injection patient is unconsciou s). hydrocortis Yes [id number] 100mg 2 mL by [facility] one sod 6-29 [facility] ity of succ 00:00: lar route [place] (SOLU-AMY 00 as needed Med ical F) 100 mg (for when Branc h injection patient is unconsciou s). hydrocortis Yes [id number] 100mg 2 mL by [facility] one sod 6-29 [facility] ity of succ 00:00: lar route [place] (SOLU-AMY 00 as needed Med ical F) 100 mg (for when Branc h injection patient is unconsciou s). hydrocortis Yes [id number] 100mg 2 mL by [facility] one sod 6-29 [facility] ity of succ 00:00: lar route [place] (SOLU-AMY 00 as needed Med ical F) 100 mg (for when Branc h injection patient is unconsciou s). hydrocortis Yes [id number] 100mg 2 mL by [facility] one sod 6-29 [facility] ity of succ 00:00: lar route [place] (SOLU-AMY 00 as needed Med ical F) 100 mg (for when Branc h injection patient is unconsciou s). hydrocortis Yes [id number] 100mg 2 mL by [facility] one sod 6-29 [facility] ity of succ 00:00: lar route [place] (SOLU-AMY 00 as needed Med ical F) 100 mg (for when Branc h injection patient is unconsciou s). hydrocortis Yes [id number] 100mg 2 mL by [facility] one sod 6-29 [facility] ity of succ 00:00: lar route [place] (SOLU-AMY 00 as needed Med ical F) 100 mg (for when Branc h injection patient is unconsciou s). hydrocortis Yes [id number] 100mg 2 mL by [facility] one sod 6-29 [facility] ity of succ 00:00: lar route [place] (SOLU-AMY 00 as needed Med ical F) 100 mg (for when Branc h injection patient is unconsciou s). hydrocortis Yes [id number] 100mg 2 mL by [facility] one sod 6-29 [facility] ity of succ 00:00: lar route [place] (SOLU-AMY 00 as needed Med ical F) 100 mg (for when Branc h injection patient is unconsciou s). hydrocortis 2022- No [id number] 10mg Take 1 [facility] one 10 mg 6-29 07-01 tablet by ity of tablet 00:00: 00:00 mouth 2 [place] 00 :00 (two) Medical times Branch daily. hydrocortis 2022- No [id number] 10mg Take 1 [facility] one 10 mg 6-29 07-01 tablet by ity of tablet 00:00: 00:00 mouth 2 [place] 00 :00 (two) Medical times Branch daily. hydrocortis 2022- No [id number] 10mg Take 1 [facility] one 10 mg 6-29 07-01 tablet by ity of tablet 00:00: 00:00 mouth 2 [place] 00 :00 (two) Medical times Branch daily. hydrocortis 2022- No [id number] 10mg Take 1 [facility] one 10 mg 6-29 07-01 tablet by ity of tablet 00:00: 00:00 mouth 2 [place] 00 :00 (two) Medical times Branch daily. topiramate Yes [id number] 25mg Take 1 [facility] 25 mg 6-10 tablet by ity of tablet 00:00: mouth [place] 00 daily. Medical Branch topiramate 0 Yes [id number] 25mg Take 1 [facility] 25 mg 6-10 tablet by ity of tablet 00:00: mouth [place] 00 daily. Medical Branch topiramate 2021-0 Yes [id number] 25mg Take 1 [facility] 25 mg 6-10 tablet by ity of tablet 00:00: mouth [place] 00 daily. Medical Branch topiramate 2021- No [id number] 25mg Take 1 [facility] 25 mg 6-10 09-30 tablet by ity of tablet 00:00: 00:00 mouth [place] 00 :00 daily. [facility] topiramate 2021- No [id number] 25mg Take 1 [facility] 25 mg 6-10 09-30 tablet by ity of tablet 00:00: 00:00 mouth [place] 00 :00 daily. [facility] topiramate 2021- No [id number] 25mg Take 1 [facility] 25 mg 6-10 09-30 tablet by ity of tablet 00:00: 00:00 mouth [place] 00 :00 daily. [facility] PHENTERMINE Yes [id number] TAKE 1 [facility] 37.5 mg 6-07 CAPSULE BY ity of capsule 00:00: MOUTH [place] 00 EVERY DAY Medical IN [facility] PHENTERMINE Yes [id number] TAKE 1 [facility] 37.5 mg 6-07 CAPSULE BY ity of capsule 00:00: MOUTH [place] 00 EVERY DAY Medical IN [facility] PHENTERMINE 2021- No [id number] TAKE 1 [facility] 37.5 mg 6-07 08-28 CAPSULE BY ity o f capsule 00:00: 00:00 MOUTH [place] 00 :00 EVERY DAY Medical IN [facility] PHENTERMINE 2021- No [id number] TAKE 1 [facility] 37.5 mg 6-07 08-28 CAPSULE BY ity o f capsule 00:00: 00:00 MOUTH [place] 00 :00 EVERY DAY Medical IN [facility] PHENTERMINE 2021- No [id number] TAKE 1 [facility] 37.5 mg 6-07 08-28 CAPSULE BY ity o f capsule 00:00: 00:00 MOUTH [place] 00 :00 EVERY DAY Medical IN [facility] MORNING LEVOTHYROXI Yes [id number] TAKE 1 [facility] [place] 175 mcg 3-23 TABLET ity of tablet 00:00: DAILY [place] 00 SATURDAY [facility] THROUGH [place] SATURDAY, AND 1/2 TABLET ON SATURDAY. LEVOTHYROXI 2021- No [id number] TAKE 1 [facility] [place] 175 mcg 3-23 07-30 TABLET ity of tablet 00:00: 00:00 DAILY [place] 00 :00 SATURDAY [facility] THROUGH [place] SATURDAY, AND 1/2 TABLET ON SATURDAY. LEVOTHYROXI 2021- No [id number] TAKE 1 [facility] [place] 175 mcg 3-23 -30 TABLET ity of tablet 00:00: 00:00 DAILY [place] 00 :00 SATURDAY [facility] SATURDAY, AND 1/2 TABLET ON SATURDAY. LEVOTHYROXI 2021- No [id number] TAKE 1 [facility] [place] 175 mcg 3-23 07-30 TABLET ity of tablet 00:00: 00:00 DAILY [place] 00 :00 SATURDAY [facility] SATURDAY, AND 1/2 [facility] [id number] 1{tbl} Take 1 [facility] ne 0.35 mg 1-22 tablet by ity of tablet 00:00: mouth [place] 00 daily. [facility] 2020-02 Yes [id number] 1{tbl} Take 1 [facility] ne 0.35 mg 1-22 tablet by ity of tablet 00:00: mouth [place] 00 daily. [facility] 2020-02 Yes [id number] 1{tbl} Take 1 [facility] ne 0.35 mg 1-22 tablet by ity of tablet 00:00: mouth [place] 00 daily. [facility] 2020-02 Yes [id number] 1{tbl} Take 1 [facility] ne 0.35 mg 1-22 tablet by ity of tablet 00:00: mouth [place] [facility] [id number] 1{tbl} Take 1 [facility] ne 0.35 mg 1-22 tablet by ity of tablet 00:00: mouth [place] 00 daily. [facility] 2020-02 Yes [id number] 1{tbl} Take 1 [facility] ne 0.35 mg 1-22 tablet by ity of tablet 00:00: mouth [place] 00 daily. [facility] Yes [id number] 1{tbl} Take 1 [facility] ne 0.35 mg 1-22 tablet by ity of tablet 00:00: mouth [place] 00 daily. [facility] Yes [id number] 1{tbl} Take 1 [facility] ne 0.35 mg 1-22 tablet by ity of tablet 00:00: mouth [place] 00 daily. [facility] [facility] [id number] 1{tbl} Take 1 Univers ne 0.35 mg 1-22 tablet by ity of tablet 00:00: mouth [place] 00 daily. [facility] 2020-02 Yes [id number] 1{tbl} Take 1 Univers ne 0.35 mg 1-22 tablet by ity of tablet 00:00: mouth [place] 00 daily. [facility] 2020-02 Yes [id number] 1{tbl} Take 1 Univers ne 0.35 mg 1-22 tablet by ity of tablet 00:00: mouth [place] 00 daily. [facility] 2020-02 Yes [id number] 1{tbl} Take 1 Univers ne 0.35 mg 1-22 tablet by ity of tablet 00:00: mouth [place] 00 daily. [facility] 2020-02 Yes [id number] 1{tbl} Take 1 Univers ne 0.35 mg 1-22 tablet by ity of tablet 00:00: mouth [place] 00 daily. [facility] 2020-02 Yes [id number] 1{tbl} Take 1 Univers ne 0.35 mg 1-22 tablet by ity of tablet 00:00: mouth [place] 00 daily. [facility] 2020-02 Yes [id number] 1{tbl} Take 1 Univers ne 0.35 mg 1-22 tablet by ity of tablet 00:00: mouth [place] 00 daily. [facility] 2020-02 Yes [id number] 1{tbl} Take 1 Univers ne 0.35 mg 1-22 tablet by ity of tablet 00:00: mouth [place] 00 daily. [facility] 2020-02 Yes [id number] 1{tbl} Take 1 Univers ne 0.35 mg 1-22 tablet by ity of tablet 00:00: mouth [place] 00 daily. [facility] 2020-02 Yes [id number] 1{tbl} Take 1 Univers ne 0.35 mg 1-22 tablet by ity of tablet 00:00: mouth [place] 00 daily. [facility] 2020-02 Yes [id number] 1{tbl} Take 1 Univers ne 0.35 mg 1-22 tablet by ity of tablet 00:00: mouth [place] 00 daily. [facility] 2020-02 Yes [id number] 1{tbl} Take 1 Univers ne 0.35 mg 1-22 tablet by ity of tablet 00:00: mouth [place] 00 daily. [facility] 2020-02 Yes [id number] 1{tbl} Take 1 Univers ne 0.35 mg 1-22 tablet by ity of tablet 00:00: mouth [place] 00 daily. [facility] 2020-02 Yes [id number] 1{tbl} Take 1 Univers ne 0.35 mg 1-22 tablet by ity of tablet 00:00: mouth [place] 00 daily. [facility] 2020-02 Yes [id number] 1{tbl} Take 1 Univers ne 0.35 mg 1-22 tablet by ity of tablet 00:00: mouth [place] 00 daily. [facility] 2020-02 Yes [id number] 1{tbl} Take 1 Univers ne 0.35 mg 1-22 tablet by ity of tablet 00:00: mouth [place] 00 daily. [facility] 2020-02 Yes [id number] 1{tbl} Take 1 Univers ne 0.35 mg 1-22 tablet by ity of tablet 00:00: mouth [place] 00 daily. [facility] 2020-02 Yes [id number] 1{tbl} Take 1 Univers ne 0.35 mg 1-22 tablet by ity of tablet 00:00: mouth [place] 00 daily. [facility] 2020-02 Yes [id number] 1{tbl} Take 1 Univers ne 0.35 mg 1-22 tablet by ity of tablet 00:00: mouth [place] 00 daily. [facility] 2020-02 Yes [id number] 1{tbl} Take 1 Univers ne 0.35 mg 1-22 tablet by ity of tablet 00:00: mouth [place] 00 daily. [facility] 2020-02 Yes [id number] 1{tbl} Take 1 Univers ne 0.35 mg 1-22 tablet by ity of tablet 00:00: mouth [place] 00 daily. [facility] 2020-02 Yes [id number] 1{tbl} Take 1 Univers ne 0.35 mg 1-22 tablet by ity of tablet 00:00: mouth [place] 00 daily. [facility] 2020-02 Yes [id number] 1{tbl} Take 1 Univers ne 0.35 mg 1-22 tablet by ity of tablet 00:00: mouth [place] 00 daily. [facility] 2020-02 Yes [id number] 1{tbl} Take 1 Univers ne 0.35 mg 1-22 tablet by ity of tablet 00:00: mouth [place] 00 daily. [facility] 2020-02 Yes [id number] 1{tbl} Take 1 Univers ne 0.35 mg 1-22 tablet by ity of tablet 00:00: mouth [place] 00 daily. [facility] 2020-02 Yes [id number] 1{tbl} Take 1 Univers ne 0.35 mg 1-22 tablet by ity of tablet 00:00: mouth [place] 00 daily. [facility] 2020-02- No [id number] 1{tbl} Take 1 Univers ne 0.35 mg 1-22 06-26 tablet by ity of tablet 00:00: 00:00 mouth [place] 00 :00 daily. [facility] 2020-02- No [id number] 1{tbl} Take 1 Univers ne 0.35 mg 1-22 06-26 tablet by ity of tablet 00:00: 00:00 mouth [place] 00 :00 daily. [facility] 2020-02- No [id number] 1{tbl} Take 1 Univers ne 0.35 mg 1-22 06-26 tablet by ity of tablet 00:00: 00:00 mouth [place] 00 :00 daily. [facility] 2020-02- No [id number] 1{tbl} Take 1 Univers ne 0.35 mg 1-22 06-26 tablet by ity of tablet 00:00: 00:00 mouth [place] 00 :00 daily. [facility] 2020-02- No [id number] 1{tbl} Take 1 Univers ne 0.35 mg 1-22 06-26 tablet by ity of tablet 00:00: 00:00 mouth [place] 00 :00 daily. [facility] CITALOPRAM 2020-02 Yes Take by Univ ers [...] 13:09: skin every [place] 42 72 Medical ([facility] wo) hours. rOPINIRole 2020-02 Yes 1mg Take 1 mg Un oskar 1 mg tablet 1-11 by mouth ity of 13:09: at [place] 42 bedtime. Medical Branch CITALOPRAM 2020-02 Yes [...] to ity of patch 13:09: skin every [place] [id number] 72 Medical ([facility] wo) hours. rOPINIRole 2020-02 Yes 1mg Take 1 mg Un oskar 1 mg tablet 1-11 by mouth ity of 13:09: at [place] [address] bedtime. Medical Branch CITALOPRAM 2020-02 Yes Take [...] 13:09: skin every [place] 42 72 Medical ([facility] wo) hours. rOPINIRole 2020-02 Yes 1mg Take 1 mg Un oskar 1 mg tablet 1-11 by mouth ity of 13:09: at [place] 42 bedtime. Medical Branch CITALOPRAM 2020-02 Yes [...] 13:09: skin every [place] 42 72 Medical ([facility] wo) hours. rOPINIRole 2020-02 Yes 1mg Take 1 mg Un oskar 1 mg tablet 1-11 by mouth ity of 13:09: at [place] [address] bedtime. Medical Branch CITALOPRAM 2020-02 Yes Take [...] to ity of patch 13:09: skin every [place] [address] 72 Medical ([facility] wo) hours. rOPINIRole 2020-02 Yes 1mg Take 1 mg Un oskar 1 mg tablet 1-11 by mouth ity of 13:09: at [place] [address] bedtime. Medical Branch CITALOPRAM 2020-02 Yes Take [...] to ity of patch 13:09: skin every [place] 42 72 Medical (se[facility]y-t Branch wo) hours. rOPINIRole 2020-02 Yes 1mg Take 1 mg Un oskar 1 mg tablet 1-11 by mouth ity of 13:09: at [place] [address] bedtime. Medical Branch CITALOPRAM 2020-02 Yes Take [...] 1-11 by mouth ity of 13:09: at [place] 42 bedtime. Medical Branch CITALOPRAM 2020-02 Yes Take by [facility] [place] [facility] ers HYDROBROMID 1-11 mouth ity of E (CELEXA 13:09: daily. [place] ORAL) 42 Medical Branch OXCARBAZEPI 2020-02 Yes Take by Uni vers NE 1-11 mouth 2 ity of (TRILEPTAL 13:09: (two) [place] ORAL) 42 times Medical daily. Branch FENTanyl 25 2020-02 Yes 1{patch Apply 1 Univers mcg/hr 1-11 } Patch to ity of patch 13:09: skin every [place] [address] 72 Medical ([facility] wo) hours. rOPINIRole 2020-02 Yes 1mg Take 1 mg Un oskar 1 mg tablet 1-11 by mouth ity of 13:09: at [place] [address] bedtime. Medical Branch CITALOPRAM 2020-02 Yes Take by [facility] [place] [facility] ers HYDROBROMID 1-11 mouth ity of E [...] 1-11 by mouth ity of 13:09: at [place] 42 bedtime. Medical Branch CITALOPRAM 2020-02 Yes [...] 1-11 by mouth ity of 13:09: at [place] 42 bedtime. Medical Branch CITALOPRAM 2020-02 Yes [...] 1-11 by mouth ity of 13:09: at [place] [address] bedtime. Medical Branch CITALOPRAM 2020-02 Yes Take [...] 1-11 by mouth ity of 13:09: at [place] 42 bedtime. Medical Branch CITALOPRAM 2020-02 Yes [...] 1-11 by mouth ity of 13:09: at [place] 42 bedtime. Medical Branch CITALOPRAM 2020-02 Yes [...] 13:09: skin every [place] 42 72 Medical ([facility] wo) hours. rOPINIRole 2020-02 Yes 1mg Take 1 mg Un oskar 1 mg tablet 1-11 by mouth ity of 13:09: at [place] 42 bedtime. Medical Branch CITALOPRAM 2020-02 Yes Take by [facility] [place] [facility] ers HYDROBROMID 1-11 mouth ity of E [...] 1-11 by mouth ity of 13:09: at [place] 42 bedtime. Medical Branch CITALOPRAM 2020-02 Yes [...] 13:09: skin every [place] 42 72 Medical ([facility] wo) hours. rOPINIRole 2020-02 Yes 1mg Take 1 mg Un oskar 1 mg tablet 1-11 by mouth ity of 13:09: at [place] 42 bedtime. Medical Branch CITALOPRAM 2020-02 Yes Take by [facility] [place] [facility] ers HYDROBROMID 1-11 mouth ity of E (CELEXA 13:09: daily. [place] ORAL) 42 Medical Branch OXCARBAZEPI 2020-02 Yes Take by Uni vers NE 1-11 mouth 2 ity of (TRILEPTAL 13:09: (two) [place] ORAL) 42 times Medical daily. Branch FENTanyl 25 2020-02 Yes 1{patch Apply 1 Univers mcg/hr 1-11 } Patch to ity of patch 13:09: skin every [place] 42 72 Medical ([facility] wo) hours. rOPINIRole 2020-02 Yes 1mg Take 1 mg Un oskar 1 mg tablet 1-11 by mouth ity of 13:09: at [place] [address] bedtime. Medical Branch CITALOPRAM 2020-02 Yes Take by [facility] [place] [facility] ers HYDROBROMID 1-11 mouth ity of E (CELEXA 13:09: daily. [place] ORAL) 42 Medical Branch OXCARBAZEPI 2020-02 Yes Take by Uni vers NE 1-11 mouth 2 ity of (TRILEPTAL 13:09: (two) [place] ORAL) 42 times Medical daily. Branch FENTanyl 25 2020-02 Yes 1{patch Apply 1 Univers mcg/hr 1-11 } Patch to ity of patch 13:09: skin every [place] 42 72 Medical (seventyt Branch wo) hours. rOPINIRole 2020-02 Yes 1mg Take 1 mg Un oskar 1 mg tablet 1-11 by mouth ity of 13:09: at [place] 42 bedtime. Medical Branch CITALOPRAM 2020-02 Yes [...] 1-11 by mouth ity of 13:09: at [place] 42 bedtime. Medical Branch CITALOPRAM 2020-02 Yes [...] 13:09: skin every [place] 42 72 Medical ([facility] wo) hours. rOPINIRole 2020-02 Yes 1mg Take 1 mg Un oskar 1 mg tablet 1-11 by mouth ity of 13:09: at [place] [address] bedtime. Medical Branch CITALOPRAM 2020-02 Yes Take [...] 1-11 by mouth ity of 13:09: at [place] [...] to ity of patch 13:09: skin every [place] 42 72 Medical ([facility] wo) hours. rOPINIRole 2020-02 Yes 1mg Take 1 mg Un oskar 1 mg tablet 1-11 by mouth ity of 13:09: at [place] [address] bedtime. Medical Branch CITALOPRAM 2020-02 Yes Take [...] to ity of patch 13:09: skin every [place] [address] 72 Medical ([facility] wo) hours. rOPINIRole 2020-02 Yes 1mg Take 1 mg Un oskar 1 mg tablet 1-11 by mouth ity of 13:09: at [place] [address] bedtime. Medical Branch CITALOPRAM 2020-02 Yes Take [...] to ity of patch 13:09: skin every [place] [address] 72 Medical (seventy-t Branch wo) hours. rOPINIRole 2020-02 Yes 1mg Take 1 mg Un oskar 1 mg tablet 1-11 by mouth ity of 13:09: at [place] [address] bedtime. Medical Branch CITALOPRAM 2020-02 Yes Take [...] to ity of patch 13:09: skin every [place] [address] 72 Medical (seventy-t Branch wo) hours. rOPINIRole 2020-02 Yes 1mg Take 1 mg Un oskar 1 mg tablet 1-11 by mouth ity of 13:09: at [place] [address] bedtime. Medical Branch CITALOPRAM 2020-02 Yes Take [...] to ity of patch 13:09: skin every [place] [address] 72 Medical ([facility] wo) hours. rOPINIRole 2020-02 Yes 1mg Take 1 mg Un oskar 1 mg tablet 1-11 by mouth ity of 13:09: at [place] [address] bedtime. Medical Branch CITALOPRAM 2020-02 Yes Take [...] to ity of patch 13:09: skin every [place] [address] 72 Medical (seventy-t Branch wo) hours. rOPINIRole 2020-02 Yes 1mg Take 1 mg Un oskar 1 mg tablet 1-11 by mouth ity of 13:09: at [place] [...] 1-11 by mouth ity of 13:09: at [place] [address] bedtime. Medical Branch CITALOPRAM 2020-02 Yes Take by [facility] [place] [facility] ers HYDROBROMID 1-11 mouth ity of E [...] 1-11 by mouth ity of 13:09: at [place] [address] bedtime. Medical Branch Movantik Movantik 2019- No Cinda 1 tablet Common 04-22 [facility] 00:00: 00:00 morning - [facility] 00 :00 [facility] Pantoprazol Pantoprazol 2017- Yes Cinda 1 tablet Common e Sodium e Sodium 10-25 [facility] Sp que 00:00: - [facility] 00 [facility] Chlordiazep Chlordiazep 2017-0 2019- No Cinda 1 capsule Common oxide-Clidi oxide-Clidi 10-25 [facility] nium nium 00:00: 00:00 - [facility] 00 :00 [facility] ondansetron 2017- Yes Univer s 4 mg 1-02 ity of disintegrat 00:00: [place] ing tablet Medical Branch ondansetron 2017- Yes Univer s 4 mg -02 ity of disintegrat 00:00: [place] ing tablet Medical Branch ondansetron 2017- Yes Univer s 4 mg -02 ity of disintegrat 00:00: [place] ing tablet [...] ondansetron 2017- Yes Univer s 4 mg -02 ity of disintegrat 00:00: [place] ing tablet Medical Branch ondansetron 2017- Yes Univer s 4 mg -02 ity of disintegrat 00:00: [place] ing tablet [...] [place] ing tablet 00 Medical Branch ondansetron 2016-02- No Unive rs 4 mg 02-26 ity of disintegrat 00:00: 00:00 [place] ing tablet 00 :00 Medical Branch ondansetron 2016-02- No Unive rs 4 mg 02-26 ity of disintegrat 00:00: 00:00 [place] ing tablet 00 :00 Medical Branch ondansetron 2016-02- No Unive rs 4 mg 02-26 ity of disintegrat 00:00: 00:00 [place] ing tablet 00 :00 Medical Branch ondansetron 2016-02- No Unive rs 4 mg 02-26 ity of disintegrat 00:00: 00:00 [place] ing tablet 00 :00 Medical Branch ondansetron 2016-02- No Unive rs 4 mg 02-26 ity of disintegrat 00:00: 00:00 [place] ing tablet 00 :00 Medical Branch LYRICA 100 2015-02 Yes Univers [...] Univers mg capsule 2-06 ity of 00:00: [place] 00 Medical Branch LYRICA 100 2015-02 Yes [...] Univers mg capsule 2-06 ity of 00:00: [place] 00 Medical Branch LYRICA 100 2015-02 Yes [...] daily. [facility] 2015-02 Yes 25mg Take 0.5 Uni vers mg tablet 1-03 tablets by ity of 00:00: mouth in [place] 00 the Medical morning Branch and 0.5 tablets in the evening. SANTOSH Vital 2015-02 Yes 25mg Take 0.5 Uni vers mg tablet 1-03 tablets by ity of 00:00: mouth in [place] 00 the Medical morning Branch and 0.5 tablets in the evening. [facility] 50 2015-02 Yes 25mg Take 0.5 Uni vers mg tablet 1-03 tablets by ity of 00:00: mouth in [place] 00 the Medical morning Branch and 0.5 tablets in the evening. SAVEA 50 2015-02 Yes 25mg Take 0.5 Uni vers mg tablet 1-03 tablets by ity of 00:00: mouth in [place] 00 the Medical morning Branch and 0.5 tablets in the evening. [facility] 50 2015-02 Yes 25mg Take 0.5 Uni vers mg tablet 1-03 tablets by ity of 00:00: mouth in [place] 00 the Medical morning Branch and 0.5 tablets in the evening. [facility] Yes 25mg Take 0.5 Uni vers mg tablet 1-03 tablets by ity of 00:00: mouth in [place] 00 the Medical morning Branch and 0.5 tablets in the evening. [facility] 50 2015-02 Yes 25mg Take 0.5 Uni vers mg tablet 1-03 tablets by ity of 00:00: mouth in [place] 00 the Medical morning Branch and 0.5 tablets in the evening. [facility] 50 2015-02 Yes 25mg Take 0.5 Uni vers mg tablet 1-03 tablets by ity of 00:00: mouth in [place] 00 the Medical morning Branch and 0.5 tablets in the evening. [facility] Yes 25mg Take 0.5 Uni vers mg tablet 1-03 tablets by ity of 00:00: mouth in [place] 00 the Medical morning Branch and 0.5 tablets in the evening. [facility] 50 2015-02 Yes 25mg Take 0.5 Uni vers mg tablet 1-03 tablets by ity of 00:00: mouth in [place] 00 the Medical morning Branch and 0.5 tablets in the evening. [facility] Yes 25mg Take 0.5 Uni vers mg tablet 1-03 tablets by ity of 00:00: mouth in [place] 00 the Medical morning Branch and 0.5 tablets in the evening. [facility] 50 2015-02 Yes 25mg Take 0.5 Uni vers mg tablet 1-03 tablets by ity of 00:00: mouth in [place] 00 the Medical morning Branch and 0.5 tablets in the evening. [facility]-02 Yes 25mg Take 0.5 Uni vers mg tablet 1-03 tablets by ity of 00:00: mouth in [place] 00 the Medical morning Branch and 0.5 tablets in the evening. [facility] 50 2015-02 Yes 25mg Take 0.5 Uni vers mg tablet 1-03 tablets by ity of 00:00: mouth in [place] 00 the Medical morning Branch and 0.5 tablets in the evening. [facility] 50 2015-02 Yes 25mg Take 0.5 Uni vers mg tablet 1-03 tablets by ity of 00:00: mouth in [place] 00 the Medical morning Branch and 0.5 tablets in the evening. [facility] 50 2015-02 Yes 25mg Take 0.5 Uni vers mg tablet 1-03 tablets by ity of 00:00: mouth in [place] 00 the Medical morning Branch and 0.5 tablets in the evening. [facility]02 Yes 25mg Take 0.5 Uni vers mg tablet 1-03 tablets by ity of 00:00: mouth in [place] 00 the Medical morning Branch and 0.5 tablets in the evening. [facility] 50 2015-02 Yes 25mg Take 0.5 Uni vers mg tablet 1-03 tablets by ity of 00:00: mouth in [place] 00 the Medical morning Branch and 0.5 tablets in the evening. [facility] 50 2015-02 Yes 25mg Take 0.5 Uni vers mg tablet 1-03 tablets by ity of 00:00: mouth in [place] 00 the Medical morning Branch and 0.5 tablets in the evening. [facility] 50 2015-02 Yes 25mg Take 0.5 Uni vers mg tablet 1-03 tablets by ity of 00:00: mouth in [place] 00 the Medical morning Branch and 0.5 tablets in the evening. [facility] 50 2015-02 Yes 25mg Take 0.5 Uni vers mg tablet 1-03 tablets by ity of 00:00: mouth in [place] 00 the Medical morning Branch and 0.5 tablets in the evening. [facility] 50 2015-02 Yes 25mg Take 0.5 Uni vers mg tablet 1-03 tablets by ity of 00:00: mouth in [place] 00 the Medical morning Branch and 0.5 tablets in the evening. [facility] 50 2015-02 Yes 25mg Take 0.5 Uni vers mg tablet 1-03 tablets by ity of 00:00: mouth in [place] 00 the Medical morning Branch and 0.5 tablets in the evening. [facility] 50 2015-02 Yes 25mg Take 0.5 Uni vers mg tablet 1-03 tablets by ity of 00:00: mouth in [place] 00 the Medical morning Branch and 0.5 tablets in the evening. [facility] 50 2015-02 Yes 25mg Take 0.5 Uni vers mg tablet 1-03 tablets by ity of 00:00: mouth in [place] 00 the Medical morning Branch and 0.5 tablets in the evening. [facility] 50 2015-02 Yes 25mg Take 0.5 Uni vers mg tablet 1-03 tablets by ity of 00:00: mouth in [place] 00 the Medical morning Branch and 0.5 tablets in the evening. [facility] 50 2015-02 Yes 25mg Take 0.5 Uni vers mg tablet 1-03 tablets by ity of 00:00: mouth in [place] 00 the Medical morning Branch and 0.5 tablets in the evening. [facility] 50 2015-02 Yes 25mg Take 0.5 Uni vers mg tablet 1-03 tablets by ity of 00:00: mouth in [place] 00 the Medical morning Branch and 0.5 tablets in the evening. [facility] 50 2015-02 Yes 25mg Take 0.5 Uni vers mg tablet 1-03 tablets by ity of 00:00: mouth in [place] 00 the Medical morning Branch and 0.5 tablets in the evening. [facility] 50 2015-02 Yes 25mg Take 0.5 Uni vers mg tablet 1-03 tablets by ity of 00:00: mouth in [place] 00 the Medical morning Branch and 0.5 tablets in the evening. Neurontin Neurontin Yes Cinda 1 capsule Common [facility] Amitriptyli Amitriptyli Yes Cinda 1 tablet Common ne [facility] Topamax Topamax Yes Cinda [address] [facility] Zofran Zofran Yes Cinda 1 tablet Common Mill[facility] Ultram Ultram Yes Cinda 1 tablet Common [facility] as needed Spiri t [facility] Lyrica Lyrica Yes Cinda [address] [facility] Robaxin Robaxin Yes Cinda 1.5 Common [facility] tablets [facility] Trazodone Trazodone Yes Cinda 1 tablet Common HCl HCl [facility] at bedtime Spir it as needed [facility] Protonix Protonix Yes Cinda 1 tablet Co mmon Millender [facility] Savella Savella Yes Cinda 1 tablet Comm on Millender [facility] Synthroid Synthroid Yes Cinda 1 tablet Common [facility] on an [facility] empty - [facility] stomach in [facility] Imitrex Imitrex Yes Cinda 1 tablet Comm on [facility] as needed Spiri t - [facility] Citalopram Citalopram Yes Cinda 1 tablet Common Hydrobromid Hydrobromid Mill[facility] e e [facility] Clonazepam Clonazepam Yes Cinda 1 tablet Common Millender [facility] Cyclobenzap Cyclobenzap Yes Cinda 1 tablet Common rine HCl rine HCl [facility] as needed [facility] Furosemide Furosemide Yes Cinda 1 tablet Common Mill[facility] as needed Spiri t for leg - [facility] swelling [facility] Effexor XR Effexor XR Yes Cinda 1 capsule Common [facility] Immunizations Ordered Filled Immunization Date Status Comments [facility] e Immunization Name Name Influenza Virus 2021-01-05 Completed Universit y of Vaccine Quad IM, 00:00:00 [facility] dical Preserv and ABX Branch Free 6 MO-64 YRS Pneumococcal 13 2021-01-05 Completed Universit y of Conjugate, PCV13 00:00:00 [facility] dical (Prevnar 13) Branch [facility] 2021-01-05 Completed University of 00:00:00 [facility] Influenza Virus 2021-01-05 Completed Universit y of Vaccine Quad IM, 00:00:00 [facility] dical Preserv and ABX Branch Free 6 MO-64 YRS Pneumococcal 13 2021-01-05 Completed Universit y of Conjugate, PCV13 00:00:00 [facility] dical (Prevnar 13) Branch TDAP 2021-01-05 Completed University of 00:00:00 [facility] Influenza Virus 2021-01-05 Completed Universit y of Vaccine Quad IM, 00:00:00 [facility] dical Preserv and ABX Branch Free 6 MO-64 YRS Pneumococcal 13 2021-01-05 Completed Universit y of Conjugate, PCV13 00:00:00 [facility] dical (Prevnar 13) Branch TDAP 2021-01-05 Completed University of 00:00:00 [facility] Influenza Virus 2021-01-05 Completed Universit y of Vaccine Quad IM, 00:00:00 [facility] dical Preserv and ABX Branch Free 6 MO-64 YRS Pneumococcal 13 2021-01-05 Completed Universit y of Conjugate, PCV13 00:00:00 [facility] dical (Prevnar 13) Branch [facility] 2021-01-05 Completed University of 00:00:00 [facility] Influenza Virus 2021-01-05 Completed Universit y of Vaccine Quad IM, 00:00:00 [facility] dical Preserv and ABX Branch Free 6 MO-64 YRS Pneumococcal 13 2021-01-05 Completed Universit y of Conjugate, PCV13 00:00:00 [facility] dical (Prevnar 13) Branch [facility] 2021-01-05 Completed University of 00:00:00 [facility] Influenza Virus 2021-01-05 Completed Universit y of Vaccine Quad IM, 00:00:00 [facility] dical Preserv and ABX Branch Free 6 MO-64 YRS Pneumococcal 13 2021-01-05 Completed Universit y of Conjugate, PCV13 00:00:00 [facility] dical (Prevnar 13) Branch [facility] 2021-01-05 Completed University of 00:00:00 [facility] Influenza Virus 2021-01-05 Completed Universit y of Vaccine Quad IM, 00:00:00 [facility] dical Preserv and ABX Branch Free 6 MO-64 YRS Pneumococcal 13 2021-01-05 Completed Universit y of Conjugate, PCV13 00:00:00 [facility] dical (Prevnar 13) Branch [facility] 2021-01-05 Completed University of 00:00:00 [facility] Influenza Virus 2021-01-05 Completed Universit y of Vaccine Quad IM, 00:00:00 [facility] dical Preserv and ABX Branch Free 6 MO-64 YRS Pneumococcal 13 2021-01-05 Completed Universit y of Conjugate, PCV13 00:00:00 [facility] dical (Prevnar 13) Branch [facility] 2021-01-05 Completed University of 00:00:00 [facility] Influenza Virus 2021-01-05 Completed Universit y of Vaccine Quad IM, 00:00:00 [facility] dical Preserv and ABX Branch Free 6 MO-64 YRS Pneumococcal 13 2021-01-05 Completed Universit y of Conjugate, PCV13 00:00:00 [facility] dical (Prevnar 13) Branch TDAP 2021-01-05 Completed University of 00:00:00 [facility] Influenza Virus 2021-01-05 Completed Universit y of Vaccine Quad IM, 00:00:00 [facility] dical Preserv and ABX Branch Free 6 MO-64 YRS Pneumococcal 13 2021-01-05 Completed [facility] Conjugate, PCV13 00:00:00 [facility] dical (Prevnar 13) Branch TDAP 2021-01-05 Completed [facility] of 00:00:00 [facility] Influenza Virus 2021-01-05 Completed [facility] of Vaccine Quad IM, 00:00:00 [facility] dical Preserv and ABX Branch Free 6 MO-64 YRS Pneumococcal 13 2021-01-05 Completed [facility] of Conjugate, PCV13 00:00:00 [facility] dical (Prevnar 13) Branch TD 2021-01-05 Completed [facility] of 00:00:00 [facility] Influenza Virus 2021-01-05 Completed [facility] of Vaccine Quad IM, 00:00:00 [facility] dical Preserv and ABX Branch Free 6 MO-64 YRS Pneumococcal 13 2021-01-05 Completed [facility] Conjugate, PCV13 00:00:00 [facility] dical (Prevnar 13) Branch [facility] 2021-01-05 Completed [facility] of 00:00:00 [facility] Influenza Virus 2021-01-05 Completed [facility] of Vaccine Quad IM, 00:00:00 [facility] dical Preserv and ABX Branch Free 6 MO-64 YRS Pneumococcal 13 2021-01-05 Completed [facility] Conjugate, PCV13 00:00:00 [facility] dical (Prevnar 13) Branch [facility] 2021-01-05 Completed [facility] 00:00:00 [facility] Influenza Virus 2021-01-05 Completed [facility] of Vaccine Quad IM, 00:00:00 [facility] dical Preserv and ABX Branch Free 6 MO-64 YRS Pneumococcal 13 2021-01-05 Completed [facility] of Conjugate, PCV13 00:00:00 [facility] dical (Prevnar 13) Branch [facility] 2021-01-05 Completed [facility] 00:00:00 [facility] Influenza Virus 2021-01-05 Completed [facility] of Vaccine Quad IM, 00:00:00 [facility] dical Preserv and ABX Branch Free 6 MO-64 YRS Pneumococcal 13 2021-01-05 Completed [facility] Conjugate, PCV13 00:00:00 [facility] dical (Prevnar 13) Branch [facility] 2021-01-05 Completed [facility] 00:00:00 [facility] Influenza Virus 2021-01-05 Completed [facility] of Vaccine Quad IM, 00:00:00 [facility] dical Preserv and ABX Branch Free 6 MO-64 YRS Pneumococcal 13 2021-01-05 Completed [facility] of Conjugate, PCV13 00:00:00 [facility] dical (Prevnar 13) Branch [facility] 2021-01-05 Completed [facility] 00:00:00 [facility] Influenza Virus 2021-01-05 Completed [facility] of Vaccine Quad IM, 00:00:00 [facility] dical Preserv and ABX Branch Free 6 MO-64 YRS Pneumococcal 13 2021-01-05 Completed [facility] of Conjugate, PCV13 00:00:00 [facility] dical (Prevnar 13) Branch [facility] 2021-01-05 Completed [facility] 00:00:00 [facility] Influenza Virus 2021-01-05 Completed [facility] of Vaccine Quad IM, 00:00:00 [facility] dical Preserv and ABX Branch Free 6 MO-64 YRS Pneumococcal 13 2021-01-05 Completed [facility] Conjugate, PCV13 00:00:00 [facility] dical (Prevnar 13) Branch [facility] 2021-01-05 Completed [facility] of 00:00:00 [facility] Influenza Virus 2021-01-05 Completed [facility] of Vaccine Quad IM, 00:00:00 [facility] dical Preserv and ABX Branch Free 6 MO-64 YRS Pneumococcal 13 2021-01-05 Completed [facility] Conjugate, PCV13 00:00:00 [facility] dical (Prevnar 13) Branch [facility] 2021-01-05 Completed [facility] of 00:00:00 [facility] Influenza Virus 2021-01-05 Completed [facility] of Vaccine Quad IM, 00:00:00 [facility] dical Preserv and ABX Branch Free 6 MO-64 YRS Pneumococcal 13 2021-01-05 Completed [facility] of Conjugate, PCV13 00:00:00 [facility] dical (Prevnar 13) Branch TDAP 2021-01-05 Completed [facility] of 00:00:00 [facility] Influenza Virus 2021-01-05 Completed [facility] of Vaccine Quad IM, 00:00:00 [facility] dical Preserv and ABX Branch Free 6 MO-64 YRS Pneumococcal 13 2021-01-05 Completed [facility] of Conjugate, PCV13 00:00:00 [facility] dical (Prevnar 13) Branch TDAP 2021-01-05 Completed [facility] of 00:00:00 [facility] Influenza Virus 2021-01-05 Completed [facility] of Vaccine Quad IM, 00:00:00 [facility] dical Preserv and ABX Branch Free 6 MO-64 YRS Pneumococcal 13 2021-01-05 Completed [facility] of Conjugate, PCV13 00:00:00 [facility] dical (Prevnar 13) Branch [facility] 2021-01-05 Completed [facility] of 00:00:00 [facility] Influenza Virus 2021-01-05 Completed [facility] of Vaccine Quad IM, 00:00:00 [facility] dical Preserv and ABX Branch Free 6 MO-64 YRS Pneumococcal 13 2021-01-05 Completed [facility] of Conjugate, PCV13 00:00:00 [facility] dical (Prevnar 13) Branch [facility] 2021-01-05 Completed [facility] of 00:00:00 [facility] Influenza Virus 2021-01-05 Completed [facility] of Vaccine Quad IM, 00:00:00 [facility] dical Preserv and ABX Branch Free 6 MO-64 YRS Pneumococcal 13 2021-01-05 Completed [facility] of Conjugate, PCV13 00:00:00 [facility] dical (Prevnar 13) Branch TDAP 2021-01-05 Completed [facility] of 00:00:00 [facility] Influenza Virus 2021-01-05 Completed [facility] of Vaccine Quad IM, 00:00:00 [facility] dical Preserv and ABX Branch Free 6 MO-64 YRS Pneumococcal 13 2021-01-05 Completed [facility] Conjugate, PCV13 00:00:00 [facility] dical (Prevnar 13) Branch [facility] 2021-01-05 Completed [facility] of 00:00:00 [facility] Influenza Virus 2021-01-05 Completed [facility] of Vaccine Quad IM, 00:00:00 [facility] dical Preserv and ABX Branch Free 6 MO-64 YRS Pneumococcal 13 2021-01-05 Completed [facility] of Conjugate, PCV13 00:00:00 [facility] dical (Prevnar 13) Branch AP 2021-01-05 Completed [facility] of 00:00:00 [facility] Influenza Virus 2021-01-05 Completed [facility] of Vaccine Quad IM, 00:00:00 [facility] dical Preserv and ABX Branch Free 6 MO-64 YRS Pneumococcal 13 2021-01-05 Completed [facility] of Conjugate, PCV13 00:00:00 [facility] dical (Prevnar 13) Branch [facility] 2021-01-05 Completed [facility] of 00:00:00 [facility] Influenza Virus 2021-01-05 Completed [facility] of Vaccine Quad IM, 00:00:00 [facility] dical Preserv and ABX Branch Free 6 MO-64 YRS Pneumococcal 13 2021-01-05 Completed [facility] of Conjugate, PCV13 00:00:00 [facility] dical (Prevnar 13) Branch [facility] 2021-01-05 Completed [facility] 00:00:00 [facility] Influenza Virus 2021-01-05 Completed [facility] of Vaccine Quad IM, 00:00:00 [facility] dical Preserv and ABX Branch Free 6 MO-64 YRS Pneumococcal 13 2021-01-05 Completed [facility] of Conjugate, PCV13 00:00:00 [facility] dical (Prevnar 13) Branch [facility] 2021-01-05 Completed [facility] 00:00:00 [facility] Influenza Virus 2021-01-05 Completed [facility] of Vaccine Quad IM, 00:00:00 [facility] dical Preserv and ABX Branch Free 6 MO-64 YRS Pneumococcal 13 2021-01-05 Completed [facility] of Conjugate, PCV13 00:00:00 [facility] dical (Prevnar 13) Branch [facility] 2021-01-05 Completed [facility] of 00:00:00 [facility] Influenza Virus 2021-01-05 Completed [facility] of Vaccine Quad IM, 00:00:00 [facility] dical Preserv and ABX Branch Free 6 MO-64 YRS Pneumococcal 13 2021-01-05 Completed [facility] of Conjugate, PCV13 00:00:00 [facility] dical (Prevnar 13) Branch TDAP 2021-01-05 Completed [facility] 00:00:00 [facility] Influenza Virus 2021-01-05 Completed [facility] of Vaccine Quad IM, 00:00:00 [facility] dical Preserv and ABX Branch Free 6 MO-64 YRS Pneumococcal 13 2021-01-05 Completed [facility] of Conjugate, PCV13 00:00:00 [facility] dical (Prevnar 13) Branch [facility] 2021-01-05 Completed [facility] 00:00:00 [facility] Influenza Virus 2021-01-05 Completed [facility] of Vaccine Quad IM, 00:00:00 [facility] dical Preserv and ABX Branch Free 6 MO-64 YRS Pneumococcal 13 2021-01-05 Completed [facility] of Conjugate, PCV13 00:00:00 [facility] dical (Prevnar 13) Branch [facility] 2021-01-05 Completed [facility] of 00:00:00 [facility] Influenza Virus 2021-01-05 Completed [facility] of Vaccine Quad IM, 00:00:00 [facility] dical Preserv and ABX Branch Free 6 MO-64 YRS Pneumococcal 13 2021-01-05 Completed [facility] of Conjugate, PCV13 00:00:00 [facility] dical (Prevnar 13) Branch [facility] 2021-01-05 Completed [facility] of 00:00:00 [facility] Influenza Virus 2021-01-05 Completed [facility] of Vaccine Quad IM, 00:00:00 [facility] dical Preserv and ABX Branch Free 6 MO-64 YRS Pneumococcal 13 2021-01-05 Completed [facility] of Conjugate, PCV13 00:00:00 [facility] dical (Prevnar 13) Branch [facility] 2021-01-05 Completed [facility] 00:00:00 [facility] Influenza Virus 2021-01-05 Completed [facility] of Vaccine Quad IM, 00:00:00 [facility] dical Preserv and ABX Branch Free 6 MO-64 YRS Pneumococcal 13 2021-01-05 Completed [facility] of Conjugate, PCV13 00:00:00 [facility] dical (Prevnar 13) Branch [facility] 2021-01-05 Completed [facility] of 00:00:00 [facility] Influenza Virus 2021-01-05 Completed [facility] of Vaccine Quad IM, 00:00:00 [facility] dical Preserv and ABX Branch Free 6 MO-64 YRS Pneumococcal 13 2021-01-05 Completed [facility] of Conjugate, PCV13 00:00:00 [facility] dical (Prevnar 13) Branch TDAP 2021-01-05 Completed [facility] of 00:00:00 [facility] Influenza Virus 2021-01-05 Completed [facility] of Vaccine Quad IM, 00:00:00 [facility] dical Preserv and ABX Branch Free 6 MO-64 YRS Pneumococcal 13 2021-01-05 Completed [facility] of Conjugate, PCV13 00:00:00 [facility] dical (Prevnar 13) Branch TDAP 2021-01-05 Completed [facility] of 00:00:00 [facility] Influenza Virus 2021-01-05 Completed [facility] y of Vaccine Quad IM, 00:00:00 [facility] dical Preserv and ABX Branch Free 6 MO-64 YRS Pneumococcal 13 2021-01-05 Completed [facility] of Conjugate, PCV13 00:00:00 [facility] dical (Prevnar 13) Branch [facility] 2021-01-05 Completed [facility] of 00:00:00 [facility] Influenza Virus 2021-01-05 Completed [facility] of Vaccine Quad IM, 00:00:00 [facility] dical Preserv and ABX Branch Free 6 MO-64 YRS Pneumococcal 13 2021-01-05 Completed [facility] of Conjugate, PCV13 00:00:00 [facility] dical (Prevnar 13) Branch AP 2021-01-05 Completed [facility] of 00:00:00 [facility] Influenza Virus 2021-01-05 Completed [facility] of Vaccine Quad IM, 00:00:00 [facility] dical Preserv and ABX Branch Free 6 MO-64 YRS Pneumococcal 13 2021-01-05 Completed [facility] of Conjugate, PCV13 00:00:00 [facility] dical (Prevnar 13) Branch TD 2021-01-05 Completed [facility] of 00:00:00 [facility] Influenza Virus 2021-01-05 Completed [facility] y of Vaccine Quad IM, 00:00:00 [facility] dical Preserv and ABX Branch Free 6 MO-64 YRS Pneumococcal 13 2021-01-05 Completed [facility] of Conjugate, PCV13 00:00:00 [facility] dical (Prevnar 13) Branch [facility] 2021-01-05 Completed [facility] of 00:00:00 [facility] Influenza Virus 2021-01-05 Completed [facility] of Vaccine Quad IM, 00:00:00 [facility] dical Preserv and ABX Branch Free 6 MO-64 YRS Pneumococcal 13 2021-01-05 Completed [facility] of Conjugate, PCV13 00:00:00 [facility] dical (Prevnar 13) Branch TDAP 2021-01-05 Completed [facility] of 00:00:00 [facility] Influenza Virus 2021-01-05 Completed [facility] of Vaccine Quad IM, 00:00:00 [facility] dical Preserv and ABX Branch Free 6 MO-64 YRS Pneumococcal 13 2021-01-05 Completed [facility] of Conjugate, PCV13 00:00:00 [facility] dical (Prevnar 13) Branch [facility] 2021-01-05 Completed [facility] 00:00:00 [facility] Influenza Virus 2021-01-05 Completed [facility] of Vaccine Quad IM, 00:00:00 [facility] dical Preserv and ABX Branch Free 6 MO-64 YRS Pneumococcal 13 2021-01-05 Completed [facility] of Conjugate, PCV13 00:00:00 [facility] dical (Prevnar 13) Branch [facility] 2021-01-05 Completed [facility] 00:00:00 [facility] Influenza Virus 2021-01-05 Completed [facility] of Vaccine Quad IM, 00:00:00 [facility] dical Preserv and ABX Branch Free 6 MO-64 YRS Pneumococcal 13 2021-01-05 Completed [facility] of Conjugate, PCV13 00:00:00 [facility] dical (Prevnar 13) Branch TD 2021-01-05 Completed [facility] of 00:00:00 [facility] Influenza Virus 2021-01-05 Completed [facility] y of Vaccine Quad IM, 00:00:00 [facility] dical Preserv and ABX Branch Free 6 MO-64 YRS Pneumococcal 13 2021-01-05 Completed [facility] of Conjugate, PCV13 00:00:00 [facility] dical (Prevnar 13) Branch [facility] 2021-01-05 Completed [facility] 00:00:00 [facility] Influenza Virus 2021-01-05 Completed [facility] y of Vaccine Quad IM, 00:00:00 [facility] dical Preserv and ABX Branch Free 6 MO-64 YRS Pneumococcal 13 2021-01-05 Completed [facility] of Conjugate, PCV13 00:00:00 [facility] dical (Prevnar 13) Branch [facility] 2021-01-05 Completed [facility] 00:00:00 [facility] Influenza Virus 2021-01-05 Completed [facility] y of Vaccine Quad IM, 00:00:00 [facility] dical Preserv and ABX Branch Free 6 MO-64 YRS Pneumococcal 13 2021-01-05 Completed [facility] of Conjugate, PCV13 00:00:00 [facility] dical (Prevnar 13) Branch [facility] 2021-01-05 Completed [facility] 00:00:00 [facility] Influenza Virus 2021-01-05 Completed [facility] y of Vaccine Quad IM, 00:00:00 [facility] dical Preserv and ABX Branch Free 6 MO-64 YRS Pneumococcal 13 2021-01-05 Completed [facility] of Conjugate, PCV13 00:00:00 [facility] dical (Prevnar 13) Branch [facility] 2021-01-05 Completed [facility] of 00:00:00 [facility] Influenza Virus 2021-01-05 Completed [facility] y of Vaccine Quad IM, 00:00:00 [facility] dical Preserv and ABX Branch Free 6 MO-64 YRS Pneumococcal 13 2021-01-05 Completed [facility] of Conjugate, PCV13 00:00:00 [facility] dical (Prevnar 13) Branch [facility] 2021-01-05 Completed [facility] 00:00:00 [facility] Influenza Virus 2021-01-05 Completed [facility] y of Vaccine Quad IM, 00:00:00 [facility] dical Preserv and ABX Branch Free 6 MO-64 YRS Pneumococcal 13 2021-01-05 Completed [facility] of Conjugate, PCV13 00:00:00 [facility] dical (Prevnar 13) Branch [facility] 2021-01-05 Completed [facility] of 00:00:00 [facility] Influenza Virus 2021-01-05 Completed [facility] y of Vaccine Quad IM, 00:00:00 [facility] dical Preserv and ABX Branch Free 6 MO-64 YRS Pneumococcal 13 2021-01-05 Completed [facility] of Conjugate, PCV13 00:00:00 [facility] dical (Prevnar 13) Branch [facility] 2021-01-05 Completed [facility] 00:00:00 [facility] Influenza Virus 2021-01-05 Completed [facility] y of Vaccine Quad IM, 00:00:00 [facility] dical Preserv and ABX Branch Free 6 MO-64 YRS Pneumococcal 13 2021-01-05 Completed [facility] y of Conjugate, PCV13 00:00:00 [facility] dical (Prevnar 13) Branch TDAP 2021-01-05 Completed [facility] 00:00:00 [facility] Influenza Virus 2021-01-05 Completed [facility] y of Vaccine Quad IM, 00:00:00 [facility] dical Preserv and ABX Branch Free 6 MO-64 YRS Pneumococcal 13 2021-01-05 Completed [facility] of Conjugate, PCV13 00:00:00 [facility] dical (Prevnar 13) Branch TDAP 2021-01-05 Completed [facility] 00:00:00 [facility] Influenza Virus 2021-01-05 Completed [facility] y of Vaccine Quad IM, 00:00:00 [facility] dical Preserv and ABX Branch Free 6 MO-64 YRS Pneumococcal 13 2021-01-05 Completed [facility] of Conjugate, PCV13 00:00:00 [facility] dical (Prevnar 13) Branch TDAP 2021-01-05 Completed [facility] 00:00:00 [facility] Influenza Virus 2021-01-05 Completed [facility] y of Vaccine Quad IM, 00:00:00 [facility] dical Preserv and ABX Branch Free 6 MO-64 YRS Pneumococcal 13 2021-01-05 Completed [facility] y of Conjugate, PCV13 00:00:00 [facility] dical (Prevnar 13) Branch TDAP 2021-01-05 Completed [facility] of 00:00:00 [facility] Influenza Virus 2021-01-05 Completed [facility] y of Vaccine Quad IM, 00:00:00 [facility] dical Preserv and ABX Branch Free 6 MO-64 YRS Pneumococcal 13 2021-01-05 Completed [facility] y of Conjugate, PCV13 00:00:00 [facility] dical (Prevnar 13) Branch TDAP 2021-01-05 Completed [facility] of 00:00:00 [facility] Influenza Virus 2021-01-05 Completed [facility] y of Vaccine Quad IM, 00:00:00 [facility] dical Preserv and ABX Branch Free 6 MO-64 YRS Pneumococcal 13 2021-01-05 Completed [facility] y of Conjugate, PCV13 00:00:00 [facility] dical (Prevnar 13) Branch TD 2021-01-05 Completed [facility] 00:00:00 [facility] SARS-COV-2 COVID-19 2020-10-10 Completed Unive rsity of PFIZER VACCINE 00:00:00 [facility] SARS-COV-2 COVID-19 2020-10-10 Completed Unive rsity of PFIZER VACCINE 00:00:00 [facility] SARS-COV-2 COVID-19 2020-10-10 Completed Unive rsity of PFIZER VACCINE 00:00:00 [facility] SARS-COV-2 COVID-19 2020-10-10 Completed Unive rsity of PFIZER VACCINE 00:00:00 [facility] SARS-COV-2 COVID-19 2020-10-10 Completed [facility]ive rsity of PFIZER VACCINE 00:00:00 [facility] SARS-COV-2 COVID-19 2020-10-10 Completed [facility]ive rsity of PFIZER VACCINE 00:00:00 [facility] SARS-COV-2 COVID-19 2020-10-10 Completed [facility]ive rsity of PFIZER VACCINE 00:00:00 [facility] SARS-COV-2 COVID-19 2020-10-10 Completed Unive rsity of PFIZER VACCINE 00:00:00 [facility] SARS-COV-2 COVID-19 2020-10-10 Completed [facility]ive rsity of PFIZER VACCINE 00:00:00 [facility] SARS-COV-2 COVID-19 2020-10-10 Completed [facility]ive rsity of PFIZER VACCINE 00:00:00 [facility] SARS-COV-2 COVID-19 2020-10-10 Completed [facility]ive rsity of PFIZER VACCINE 00:00:00 [facility] SARS-COV-2 COVID-19 2020-10-10 Completed [facility]ive rsity of PFIZER VACCINE 00:00:00 [facility] SARS-COV-2 COVID-19 2020-10-10 Completed [facility]ive rsity of PFIZER VACCINE 00:00:00 [facility] SARS-COV-2 COVID-19 2020-10-10 Completed [facility]ive rsity of PFIZER VACCINE 00:00:00 [facility] SARS-COV-2 COVID-19 2020-10-10 Completed [facility]ive [facility] of PFIZER VACCINE 00:00:00 [facility] SARS-COV-2 COVID-19 2020-10-10 Completed [facility]ive rsity of PFIZER VACCINE 00:00:00 [facility] SARS-COV-2 COVID-19 2020-10-10 Completed Unive rsity of PFIZER VACCINE 00:00:00 [facility] SARS-COV-2 COVID-19 2020-10-10 Completed [facility]ive rsity of PFIZER VACCINE 00:00:00 [facility] SARS-COV-2 COVID-19 2020-10-10 Completed [facility]ive rsity of PFIZER VACCINE 00:00:00 [facility] SARS-COV-2 COVID-19 2020-10-10 Completed [facility]ive rsity of PFIZER VACCINE 00:00:00 [facility] SARS-COV-2 COVID-19 2020-10-10 Completed Unive rsity of PFIZER VACCINE 00:00:00 [facility] SARS-COV-2 COVID-19 2020-10-10 Completed [facility]ive rsity of PFIZER VACCINE 00:00:00 [facility] SARS-COV-2 COVID-19 2020-10-10 Completed [facility]ive rsity of PFIZER VACCINE 00:00:00 [facility] SARS-COV-2 COVID-19 2020-10-10 Completed [facility]ive rsity of PFIZER VACCINE 00:00:00 [facility] [facility] SARS-COV-2 COVID-19 2020-10-10 Completed [facility] PFIZER VACCINE 00:00:00 [facility] SARS-COV-2 COVID-19 2020-10-10 Completed [facility] PFIZER VACCINE 00:00:00 [facility] SARS-COV-2 COVID-19 2020-10-10 Completed [facility] PFIZER VACCINE 00:00:00 [facility] SARS-COV-2 COVID-19 2020-10-10 Completed [facility] PFIZER VACCINE 00:00:00 [facility] SARS-COV-2 COVID-19 2020-10-10 Completed [facility] PFIZER VACCINE 00:00:00 [facility] SARS-COV-2 COVID-19 2020-10-10 Completed [facility] PFIZER VACCINE 00:00:00 [facility] SARS-COV-2 COVID-19 2020-10-10 Completed [facility] PFIZER VACCINE 00:00:00 [facility] SARS-COV-2 COVID-19 2020-10-10 Completed [facility] PFIZER VACCINE 00:00:00 [place] [facility] SARS-COV-2 COVID-19 2020-10-10 Completed [facility] PFIZER VACCINE 00:00:00 [facility] SARS-COV-2 COVID-19 2020-10-10 Completed [facility] PFIZER VACCINE 00:00:00 [facility] SARS-COV-2 COVID-19 2020-10-10 Completed [facility] PFIZER VACCINE 00:00:00 [facility] SARS-COV-2 COVID-19 2020-10-10 Completed [facility] PFIZER VACCINE 00:00:00 [facility] SARS-COV-2 COVID-19 2020-10-10 Completed [facility] PFIZER VACCINE 00:00:00 [facility] SARS-COV-2 COVID-19 2020-10-10 Completed [facility] PFIZER VACCINE 00:00:00 [facility] SARS-COV-2 COVID-19 2020-10-10 Completed [facility] PFIZER VACCINE 00:00:00 [facility] SARS-COV-2 COVID-19 2020-10-10 Completed [facility] PFIZER VACCINE 00:00:00 [facility] SARS-COV-2 COVID-19 2020-10-10 Completed [facility] PFIZER VACCINE 00:00:00 [facility] SARS-COV-2 COVID-19 2020-10-10 Completed [facility] PFIZER VACCINE 00:00:00 [facility] SARS-COV-2 COVID-19 2020-06-25 Completed [facility] PFIZER VACCINE 00:00:00 [facility] SARS-COV-2 COVID-19 2020-06-25 Completed [facility] PFIZER VACCINE 00:00:00 [facility] SARS-COV-2 COVID-19 2020-06-25 Completed [facility] PFIZER VACCINE 00:00:00 [facility] SARS-COV-2 COVID-19 2020-06-25 Completed [facility] PFIZER VACCINE 00:00:00 [facility] SARS-COV-2 COVID-19 2020-06-25 Completed [facility] PFIZER VACCINE 00:00:00 [facility] SARS-COV-2 COVID-19 2020-06-25 Completed [facility] PFIZER VACCINE 00:00:00 [facility] SARS-COV-2 COVID-19 2020-06-25 Completed [facility] PFIZER VACCINE 00:00:00 [facility] SARS-COV-2 COVID-19 2020-06-25 Completed [facility] PFIZER VACCINE 00:00:00 [facility] SARS-COV-2 COVID-19 2020-06-25 Completed [facility] PFIZER VACCINE 00:00:00 [facility] SARS-COV-2 COVID-19 2020-06-25 Completed [facility] PFIZER VACCINE 00:00:00 [facility] SARS-COV-2 COVID-19 2020-06-25 Completed [facility] PFIZER VACCINE 00:00:00 [facility] SARS-COV-2 COVID-19 2020-06-25 Completed [facility] PFIZER VACCINE 00:00:00 [facility] SARS-COV-2 COVID-19 2020-06-25 Completed [facility] PFIZER VACCINE 00:00:00 [facility] SARS-COV-2 COVID-19 2020-06-25 Completed [facility] PFIZER VACCINE 00:00:00 [facility] SARS-COV-2 COVID-19 2020-06-25 Completed [facility] PFIZER VACCINE 00:00:00 [facility] SARS-COV-2 COVID-19 2020-06-25 Completed [facility] PFIZER VACCINE 00:00:00 [facility] SARS-COV-2 COVID-19 2020-06-25 Completed [facility] PFIZER VACCINE 00:00:00 [facility] SARS-COV-2 COVID-19 2020-06-25 Completed [facility] PFIZER VACCINE 00:00:00 [facility] SARS-COV-2 COVID-19 2020-06-25 Completed [facility] PFIZER VACCINE 00:00:00 [facility] SARS-COV-2 COVID-19 2020-06-25 Completed [facility] PFIZER VACCINE 00:00:00 [place] [facility] SARS-COV-2 COVID-19 2020-06-25 Completed [facility] PFIZER VACCINE 00:00:00 [facility] SARS-COV-2 COVID-19 2020-06-25 Completed [facility] PFIZER VACCINE 00:00:00 [facility] SARS-COV-2 COVID-19 2020-06-25 Completed [facility] PFIZER VACCINE 00:00:00 [facility] SARS-COV-2 COVID-19 2020-06-25 Completed [facility] PFIZER VACCINE 00:00:00 [facility] SARS-COV-2 COVID-19 2020-06-25 Completed [facility] PFIZER VACCINE 00:00:00 [facility] SARS-COV-2 COVID-19 2020-06-25 Completed [facility] PFIZER VACCINE 00:00:00 [facility] SARS-COV-2 COVID-19 2020-06-25 Completed [facility] PFIZER VACCINE 00:00:00 [facility] SARS-COV-2 COVID-19 2020-06-25 Completed [facility] PFIZER VACCINE 00:00:00 [facility] SARS-COV-2 COVID-19 2020-06-25 Completed [facility] PFIZER VACCINE 00:00:00 [facility] SARS-COV-2 COVID-19 2020-06-25 Completed [facility] PFIZER VACCINE 00:00:00 [facility] SARS-COV-2 COVID-19 2020-06-25 Completed [facility] PFIZER VACCINE 00:00:00 [facility] SARS-COV-2 COVID-19 2020-06-25 Completed [facility] PFIZER VACCINE 00:00:00 [facility] SARS-COV-2 COVID-19 2020-06-25 Completed [facility] PFIZER VACCINE 00:00:00 [facility] SARS-COV-2 COVID-19 2020-06-25 Completed [facility] PFIZER VACCINE 00:00:00 [facility] SARS-COV-2 COVID-19 2020-06-25 Completed [facility] PFIZER VACCINE 00:00:00 [facility] SARS-COV-2 COVID-19 2020-06-25 Completed [facility] PFIZER VACCINE 00:00:00 [facility] SARS-COV-2 COVID-19 2020-06-25 Completed [facility] PFIZER VACCINE 00:00:00 [facility] SARS-COV-2 COVID-19 2020-06-25 Completed [facility] PFIZER VACCINE 00:00:00 [facility] SARS-COV-2 COVID-19 2020-06-25 Completed [facility] PFIZER VACCINE 00:00:00 [facility] SARS-COV-2 COVID-19 2020-06-25 Completed [facility] PFIZER VACCINE 00:00:00 [facility] SARS-COV-2 COVID-19 2020-06-25 Completed [facility] PFIZER VACCINE 00:00:00 [facility] SARS-COV-2 COVID-19 2020-06-25 Completed [facility] PFIZER VACCINE 00:00:00 [facility] SARS-COV-2 COVID-19 2020-06-25 Completed [facility] PFIZER VACCINE 00:00:00 [facility] SARS-COV-2 COVID-19 2020-06-25 Completed [facility] PFIZER VACCINE 00:00:00 [facility] SARS-COV-2 COVID-19 2020-06-25 Completed [facility] PFIZER VACCINE 00:00:00 [facility] SARS-COV-2 COVID-19 2020-06-25 Completed [facility] PFIZER VACCINE 00:00:00 [facility] SARS-COV-2 COVID-19 2020-06-25 Completed [facility] PFIZER VACCINE 00:00:00 [facility] SARS-COV-2 COVID-19 2020-06-25 Completed [facility] PFIZER VACCINE 00:00:00 [facility] SARS-COV-2 COVID-19 2020-06-25 Completed [facility] PFIZER VACCINE 00:00:00 [facility] SARS-COV-2 COVID-19 2020-06-25 Completed [facility] PFIZER VACCINE 00:00:00 [facility] SARS-COV-2 COVID-19 2020-06-25 Completed [facility] PFIZER VACCINE 00:00:00 [facility] SARS-COV-2 COVID-19 2020-06-25 Completed [facility] PFIZER VACCINE 00:00:00 [facility] SARS-COV-2 COVID-19 2020-06-25 Completed [facility] PFIZER VACCINE 00:00:00 [facility] SARS-COV-2 COVID-19 2020-06-25 Completed [facility] PFIZER VACCINE 00:00:00 [facility] SARS-COV-2 COVID-19 2020-06-25 Completed [facility] PFIZER VACCINE 00:00:00 [facility] SARS-COV-2 COVID-19 2020-06-25 Completed [facility] PFIZER VACCINE 00:00:00 [facility] SARS-COV-2 COVID-19 2020-06-25 Completed [facility] PFIZER VACCINE 00:00:00 [facility] SARS-COV-2 COVID-19 2020-06-25 Completed [facility] PFIZER VACCINE 00:00:00 [facility] SARS-COV-2 COVID-19 2020-06-25 Completed [facility] PFIZER VACCINE 00:00:00 [facility] SARS-COV-2 COVID-19 2020-06-04 Completed [facility] PFIZER VACCINE 00:00:00 [facility] SARS-COV-2 COVID-19 2020-06-04 Completed [facility] PFIZER VACCINE 00:00:00 [facility] SARS-COV-2 COVID-19 2020-06-04 Completed [facility] PFIZER VACCINE 00:00:00 [facility] SARS-COV-2 COVID-19 2020-06-04 Completed [facility] PFIZER VACCINE 00:00:00 [facility] SARS-COV-2 COVID-19 2020-06-04 Completed [facility] PFIZER VACCINE 00:00:00 [facility] SARS-COV-2 COVID-19 2020-06-04 Completed [facility] PFIZER VACCINE 00:00:00 [facility] SARS-COV-2 COVID-19 2020-06-04 Completed [facility] PFIZER VACCINE 00:00:00 [facility] SARS-COV-2 COVID-19 2020-06-04 Completed [facility] PFIZER VACCINE 00:00:00 [facility] SARS-COV-2 COVID-19 2020-06-04 Completed [facility] PFIZER VACCINE 00:00:00 [place] [facility] SARS-COV-2 COVID-19 2020-06-04 Completed [facility] PFIZER VACCINE 00:00:00 [facility] SARS-COV-2 COVID-19 2020-06-04 Completed [facility] PFIZER VACCINE 00:00:00 [facility] SARS-COV-2 COVID-19 2020-06-04 Completed [facility] PFIZER VACCINE 00:00:00 [facility] SARS-COV-2 COVID-19 2020-06-04 Completed [facility] PFIZER VACCINE 00:00:00 [facility] SARS-COV-2 COVID-19 2020-06-04 Completed [facility] PFIZER VACCINE 00:00:00 [facility] SARS-COV-2 COVID-19 2020-06-04 Completed [facility] PFIZER VACCINE 00:00:00 [facility] SARS-COV-2 COVID-19 2020-06-04 Completed [facility] PFIZER VACCINE 00:00:00 [facility] SARS-COV-2 COVID-19 2020-06-04 Completed [facility] PFIZER VACCINE 00:00:00 [facility] SARS-COV-2 COVID-19 2020-06-04 Completed [facility] PFIZER VACCINE 00:00:00 [facility] SARS-COV-2 COVID-19 2020-06-04 Completed [facility] PFIZER VACCINE 00:00:00 [facility] SARS-COV-2 COVID-19 2020-06-04 Completed [facility] PFIZER VACCINE 00:00:00 [facility] SARS-COV-2 COVID-19 2020-06-04 Completed [facility] PFIZER VACCINE 00:00:00 [facility] SARS-COV-2 COVID-19 2020-06-04 Completed [facility] PFIZER VACCINE 00:00:00 [facility] SARS-COV-2 COVID-19 2020-06-04 Completed [facility] PFIZER VACCINE 00:00:00 [facility] SARS-COV-2 COVID-19 2020-06-04 Completed [facility] PFIZER VACCINE 00:00:00 [facility] SARS-COV-2 COVID-19 2020-06-04 Completed [facility] PFIZER VACCINE 00:00:00 [place] [facility] SARS-COV-2 COVID-19 2020-06-04 Completed [facility] PFIZER VACCINE 00:00:00 [facility] SARS-COV-2 COVID-19 2020-06-04 Completed [facility] PFIZER VACCINE 00:00:00 [facility] SARS-COV-2 COVID-19 2020-06-04 Completed [facility] PFIZER VACCINE 00:00:00 [facility] SARS-COV-2 COVID-19 2020-06-04 Completed [facility] PFIZER VACCINE 00:00:00 [facility] SARS-COV-2 COVID-19 2020-06-04 Completed [facility] PFIZER VACCINE 00:00:00 [facility] SARS-COV-2 COVID-19 2020-06-04 Completed [facility] PFIZER VACCINE 00:00:00 [facility] SARS-COV-2 COVID-19 2020-06-04 Completed [facility] PFIZER VACCINE 00:00:00 [facility] SARS-COV-2 COVID-19 2020-06-04 Completed [facility] PFIZER VACCINE 00:00:00 [facility] SARS-COV-2 COVID-19 2020-06-04 Completed [facility] PFIZER VACCINE 00:00:00 [facility] SARS-COV-2 COVID-19 2020-06-04 Completed [facility] PFIZER VACCINE 00:00:00 [facility] SARS-COV-2 COVID-19 2020-06-04 Completed [facility] PFIZER VACCINE 00:00:00 [facility] SARS-COV-2 COVID-19 2020-06-04 Completed [facility] PFIZER VACCINE 00:00:00 [facility] SARS-COV-2 COVID-19 2020-06-04 Completed [facility] PFIZER VACCINE 00:00:00 [facility] SARS-COV-2 COVID-19 2020-06-04 Completed [facility] PFIZER VACCINE 00:00:00 [facility] SARS-COV-2 COVID-19 2020-06-04 Completed [facility] PFIZER VACCINE 00:00:00 [facility] SARS-COV-2 COVID-19 2020-06-04 Completed [facility] PFIZER VACCINE 00:00:00 [facility] SARS-COV-2 COVID-19 2020-06-04 Completed [facility] PFIZER VACCINE 00:00:00 [facility] SARS-COV-2 COVID-19 2020-06-04 Completed [facility] PFIZER VACCINE 00:00:00 [facility] SARS-COV-2 COVID-19 2020-06-04 Completed [facility] PFIZER VACCINE 00:00:00 [facility] SARS-COV-2 COVID-19 2020-06-04 Completed [facility] PFIZER VACCINE 00:00:00 [facility] SARS-COV-2 COVID-19 2020-06-04 Completed [facility] PFIZER VACCINE 00:00:00 [facility] SARS-COV-2 COVID-19 2020-06-04 Completed [facility] PFIZER VACCINE 00:00:00 [facility] SARS-COV-2 COVID-19 2020-06-04 Completed [facility] PFIZER VACCINE 00:00:00 [facility] SARS-COV-2 COVID-19 2020-06-04 Completed [facility] PFIZER VACCINE 00:00:00 [facility] SARS-COV-2 COVID-19 2020-06-04 Completed [facility] PFIZER VACCINE 00:00:00 [facility] SARS-COV-2 COVID-19 2020-06-04 Completed [facility] PFIZER VACCINE 00:00:00 [facility] SARS-COV-2 COVID-19 2020-06-04 Completed [facility] PFIZER VACCINE 00:00:00 [facility] SARS-COV-2 COVID-19 2020-06-04 Completed [facility] PFIZER VACCINE 00:00:00 [facility] SARS-COV-2 COVID-19 2020-06-04 Completed [facility] PFIZER VACCINE 00:00:00 [facility] SARS-COV-2 COVID-19 2020-06-04 Completed [facility] PFIZER VACCINE 00:00:00 [facility] SARS-COV-2 COVID-19 2020-06-04 Completed [facility] PFIZER VACCINE 00:00:00 [facility] SARS-COV-2 COVID-19 2020-06-04 Completed [facility] PFIZER VACCINE 00:00:00 [facility] SARS-COV-2 COVID-19 2020-06-04 Completed [facility] PFIZER VACCINE 00:00:00 [facility] SARS-COV-2 COVID-19 2020-06-04 Completed [facility] PFIZER VACCINE 00:00:00 [facility] Influenza Virus 2019-04-09 Completed [facility], 00:00:00 [place] [facility] Free 6 MO-64 YRS Influenza Virus 2019-04-09 Completed [facility], 00:00:00 [place] [facility] Free 6 MO-64 YRS Influenza Virus 2019-04-09 Completed [facility], 00:00:00 [place] [facility] Free 6 MO-64 YRS Influenza Virus 2019-04-09 Completed [facility], 00:00:00 [place] [facility] Free 6 MO-64 YRS Influenza Virus 2019-04-09 Completed [facility], 00:00:00 [place] [facility] Free 6 MO-64 YRS Influenza Virus 2019-04-09 Completed [facility], 00:00:00 [place] [facility] Free 6 MO-64 YRS Influenza Virus 2019-04-09 Completed [facility], 00:00:00 [place] [facility] Free 6 MO-64 YRS Influenza Virus 2019-04-09 Completed [facility], 00:00:00 [place] [facility] Free 6 MO-64 YRS Influenza Virus 2019-04-09 Completed [facility], 00:00:00 [place] [facility] Free [...] [facility], 00:00:00 [place] [facility] Free 6 MO-64 YRS Influenza Virus 2019-04-09 Completed [facility], 00:00:00 [place] [facility] Free [...] [facility], 00:00:00 [place] [facility] Free 6 MO-64 YRS Influenza Virus 2019-04-09 Completed [facility], 00:00:00 [place] [facility] ABX [facility] Free 6 MO-64 YRS Influenza Virus 2019-04-09 Completed [facility], 00:00:00 [place] [facility] Free 6 MO-64 YRS Flucelvax - single Flucelvax - single 2019-04-09 Completed [facility] - dose syringe dose syringe 00:00:00 [facility] Influenza Virus 2018-01-14 Completed [facility] Vaccine [facility] .5 mL 00:00:00 [facility] IM 6+ MO Branch Influenza Virus 2018-01-14 Completed [facility] Vaccine 00:00:00 [facility] Influenza Virus 2018-01-14 Completed [facility] Vaccine [facility] .5 mL 00:00:00 [facility] 6+ MO Branch Influenza Virus 2018-01-14 Completed [facility] Vaccine 00:00:00 [facility] Influenza Virus 2018-01-14 Completed [facility]ine [facility] .5 mL 00:00:00 [facility] 6+ MO Branch Influenza Virus 2018-01-14 Completed [facility] Vaccine 00:00:00 [facility] Influenza Virus 2018-01-14 Completed [facility] Vaccine [facility] .5 mL 00:00:00 [facility] IM 6+ MO Branch Influenza Virus 2018-01-14 Completed [facility] Vaccine 00:00:00 [facility] Influenza Virus 2018-01-14 Completed [facility]ine [facility] .5 mL 00:00:00 [facility] 6+ MO Branch Influenza Virus 2018-01-14 Completed [facility] Vaccine 00:00:00 [facility] Influenza Virus 2018-01-14 Completed [facility] Vaccine [facility] .5 mL 00:00:00 [facility] 6+ MO Branch Influenza Virus 2018-01-14 Completed [facility] Vaccine 00:00:00 [facility] Influenza Virus 2018-01-14 Completed [facility] Vaccine [facility] .5 mL 00:00:00 [facility] 6+ MO [facility] Influenza Virus 2018-01-14 Completed [facility] Vaccine 00:00:00 [facility] Influenza Virus 2018-01-14 Completed [facility] Vaccine [facility] .5 mL 00:00:00 [facility] 6+ MO [facility] Influenza Virus 2018-01-14 Completed [facility] Vaccine 00:00:00 [facility] Influenza Virus 2018-01-14 Completed [facility] Vaccine Quad .5 mL 00:00:00 [facility] 6+ MO Branch Influenza Virus 2018-01-14 Completed [facility] Vaccine 00:00:00 [facility] Influenza Virus 2018-01-14 Completed [facility] Vaccine [facility] .5 mL 00:00:00 [facility] 6+ MO Branch Influenza Virus 2018-01-14 Completed [facility] Vaccine 00:00:00 [facility] Influenza Virus 2018-01-14 Completed [facility] Vaccine [facility] .5 mL 00:00:00 [facility] 6+ MO Branch Influenza Virus 2018-01-14 Completed [facility] Vaccine 00:00:00 [facility] Influenza Virus 2018-01-14 Completed [facility] Vaccine [facility] .5 mL 00:00:00 [facility] 6+ MO Branch Influenza Virus 2018-01-14 Completed [facility] Vaccine 00:00:00 [facility] Influenza Virus 2018-01-14 Completed [facility] Vaccine [facility] .5 mL 00:00:00 [facility] 6+ MO Branch Influenza Virus 2018-01-14 Completed [facility] Vaccine 00:00:00 [facility] Influenza Virus 2018-01-14 Completed [facility] Vaccine [facility] .5 mL 00:00:00 [facility] 6+ MO [facility] Influenza Virus 2018-01-14 Completed [facility] Vaccine 00:00:00 [facility] Influenza Virus 2018-01-14 Completed [facility]ine [facility] .5 mL 00:00:00 [facility] 6+ MO Branch Influenza Virus 2018-01-14 Completed [facility] Vaccine 00:00:00 [facility] Influenza Virus 2018-01-14 Completed [facility]ine [facility] .5 mL 00:00:00 [facility] 6+ MO [facility] Influenza Virus 2018-01-14 Completed [facility] Vaccine 00:00:00 [facility] Influenza Virus 2018-01-14 Completed [facility] Vaccine [facility] .5 mL 00:00:00 [facility] 6+ MO Branch Influenza Virus 2018-01-14 Completed [facility] Vaccine 00:00:00 [facility] Influenza Virus 2018-01-14 Completed [facility] Vaccine [facility] .5 mL 00:00:00 [place] [facility] 6+ [place] [facility] Influenza Virus 2018-01-14 Completed Universit y of Vaccine 00:00:00 [facility] Influenza Virus 2018-01-14 Completed Universit y of Vaccine Quad .5 mL 00:00:00 [facility] [place] [facility] Influenza Virus 2018-01-14 Completed Universit y of Vaccine 00:00:00 [facility] Influenza Virus 2018-01-14 Completed Universit y of Vaccine Quad .5 mL 00:00:00 [facility] 6+ [place] Branch Influenza Virus 2018-01-14 Completed Universit y of Vaccine 00:00:00 [facility] Influenza Virus 2018-01-14 Completed Universit y of Vaccine Quad .5 mL 00:00:00 [facility] 6+ [place] Branch Influenza Virus 2018-01-14 Completed Universit y of Vaccine 00:00:00 [facility] Influenza Virus 2018-01-14 Completed Universit y of Vaccine Quad .5 mL 00:00:00 [facility] 6+ [place] [facility] Influenza Virus 2018-01-14 Completed Universit y of Vaccine 00:00:00 [facility] Influenza Virus 2018-01-14 Completed Universit y of Vaccine Quad .5 mL 00:00:00 [facility] 6+ [place] [facility] Influenza Virus 2018-01-14 Completed Universit y of Vaccine 00:00:00 [facility] Influenza Virus 2018-01-14 Completed Universit y of Vaccine Quad .5 mL 00:00:00 [facility] 6+ [place] [facility] Influenza Virus 2018-01-14 Completed Universit y of Vaccine 00:00:00 [facility] Influenza Virus 2018-01-14 Completed Universit y of Vaccine Quad .5 mL 00:00:00 [facility] 6+ [place] [facility] Influenza Virus 2018-01-14 Completed Universit y of Vaccine 00:00:00 [facility] Influenza Virus 2018-01-14 Completed Universit y of Vaccine Quad .5 mL 00:00:00 [facility] 6+ [place] [facility] Influenza Virus 2018-01-14 Completed Universit y of Vaccine 00:00:00 [facility] Influenza Virus 2018-01-14 Completed Universit y of Vaccine Quad .5 mL 00:00:00 [facility] 6+ [place] [facility] Influenza Virus 2018-01-14 Completed Universit y of Vaccine 00:00:00 [facility] Influenza Virus 2018-01-14 Completed Universit y of Vaccine Quad .5 mL 00:00:00 [facility] 6+ [place] [facility] Influenza Virus 2018-01-14 Completed Universit y of Vaccine 00:00:00 [facility] Influenza Virus 2018-01-14 Completed Universit y of Vaccine Quad .5 mL 00:00:00 [facility] 6+ [place] [facility] Influenza Virus 2018-01-14 Completed Universit y of Vaccine 00:00:00 [facility] Influenza Virus 2018-01-14 Completed Universit y of Vaccine Quad .5 mL 00:00:00 [facility] 6+ [place] [facility] Influenza Virus 2018-01-14 Completed Universit y of Vaccine 00:00:00 [facility] Influenza Virus 2018-01-14 Completed Universit y of Vaccine Quad .5 mL 00:00:00 [facility] 6+ [place] [facility] Influenza Virus 2018-01-14 Completed Universit y of Vaccine 00:00:00 [facility] Influenza Virus 2018-01-14 Completed Universit y of Vaccine Quad .5 mL 00:00:00 [facility] 6+ [place] [facility] Influenza Virus 2018-01-14 Completed Universit y of Vaccine 00:00:00 [facility] Influenza Virus 2018-01-14 Completed Universit y of Vaccine Quad .5 mL 00:00:00 [facility] 6+ [place] [facility] Influenza Virus 2018-01-14 Completed Universit y of Vaccine 00:00:00 [facility] Influenza Virus 2018-01-14 Completed Universit y of Vaccine Quad .5 mL 00:00:00 [facility] 6+ [place] [facility] Influenza Virus 2018-01-14 Completed Universit y of Vaccine 00:00:00 [facility] Influenza Virus 2018-01-14 Completed Universit y of Vaccine Quad .5 mL 00:00:00 [facility] 6+ [place] [facility] Influenza Virus 2018-01-14 Completed Universit y of Vaccine 00:00:00 [facility] Influenza Virus 2018-01-14 Completed Universit y of Vaccine Quad .5 mL 00:00:00 [facility] 6+ [place] [facility] Influenza Virus 2018-01-14 Completed Universit y of Vaccine 00:00:00 [facility] Influenza Virus 2018-01-14 Completed Universit y of Vaccine Quad .5 mL 00:00:00 [facility] 6+ [place] [facility] Influenza Virus 2018-01-14 Completed Universit y of Vaccine 00:00:00 [facility] Influenza Virus 2018-01-14 Completed Universit y of Vaccine Quad .5 mL 00:00:00 [facility] 6+ [place] [facility] Influenza Virus 2018-01-14 Completed Universit y of Vaccine 00:00:00 [facility] Influenza Virus 2018-01-14 Completed Universit y of Vaccine Quad .5 mL 00:00:00 [facility] 6+ [place] [facility] Influenza Virus 2018-01-14 Completed Universit y of Vaccine 00:00:00 [facility] Influenza Virus 2018-01-14 Completed Universit y of Vaccine Quad .5 mL 00:00:00 [facility] 6+ [place] [facility] Influenza Virus 2018-01-14 Completed Universit y of Vaccine 00:00:00 [facility] Influenza Virus 2018-01-14 Completed Universit y of Vaccine Quad .5 mL 00:00:00 [facility] 6+ [place] [facility] Influenza Virus 2018-01-14 Completed Universit y of Vaccine 00:00:00 [facility] Influenza Virus 2018-01-14 Completed Universit y of Vaccine Quad .5 mL 00:00:00 [facility] 6+ [place] [facility] Influenza Virus 2018-01-14 Completed Universit y of Vaccine 00:00:00 [facility] Influenza Virus 2018-01-14 Completed Universit y of Vaccine Quad .5 mL 00:00:00 [facility] 6+ [place] [facility] Influenza Virus 2018-01-14 Completed Universit y of Vaccine 00:00:00 [facility] Influenza Virus 2018-01-14 Completed Universit y of Vaccine Quad .5 mL 00:00:00 [facility] 6+ [place] [facility] Influenza Virus 2018-01-14 Completed Universit y of Vaccine 00:00:00 [facility] Influenza Virus 2018-01-14 Completed Universit y of Vaccine Quad .5 mL 00:00:00 [facility] 6+ [place] [facility] Influenza Virus 2018-01-14 Completed Universit y of Vaccine 00:00:00 [facility] Influenza Virus 2018-01-14 Completed Universit y of Vaccine Quad .5 mL 00:00:00 [facility] 6+ [place] [facility] Influenza Virus 2018-01-14 Completed Universit y of Vaccine 00:00:00 [facility] Influenza Virus 2018-01-14 Completed Universit y of Vaccine Quad .5 mL 00:00:00 [facility] 6+ [place] [facility] Influenza Virus 2018-01-14 Completed Universit y of Vaccine 00:00:00 [facility] Influenza Virus 2018-01-14 Completed Universit y of Vaccine Quad .5 mL 00:00:00 [facility] 6+ [place] [facility] Influenza Virus 2018-01-14 Completed Universit y of Vaccine 00:00:00 [facility] Influenza Virus 2018-01-14 Completed Universit y of Vaccine Quad .5 mL 00:00:00 [facility] 6+ [place] [facility] Influenza Virus 2018-01-14 Completed Universit y of Vaccine 00:00:00 [facility] Influenza Virus 2018-01-14 Completed Universit y of Vaccine Quad .5 mL 00:00:00 [facility] 6+ [place] [facility] Influenza Virus 2018-01-14 Completed Universit y of Vaccine 00:00:00 [facility] Influenza Virus 2018-01-14 Completed Universit y of Vaccine Quad .5 mL 00:00:00 [facility] 6+ [place] [facility] Influenza Virus 2018-01-14 Completed Universit y of Vaccine 00:00:00 [facility] Influenza Virus 2018-01-14 Completed Universit y of Vaccine Quad .5 mL 00:00:00 [facility] 6+ [place] [facility] Influenza Virus 2018-01-14 Completed Universit y of Vaccine 00:00:00 [facility] Influenza Virus 2018-01-14 Completed Universit y of Vaccine Quad .5 mL 00:00:00 [facility] 6+ [place] [facility] Influenza Virus 2018-01-14 Completed Universit y of Vaccine 00:00:00 [facility] Influenza Virus 2018-01-14 Completed Universit y of Vaccine Quad .5 mL 00:00:00 [facility] 6+ [place] [facility] Influenza Virus 2018-01-14 Completed Universit y of Vaccine 00:00:00 [facility] Influenza Virus 2018-01-14 Completed Universit y of Vaccine Quad .5 mL 00:00:00 [facility] 6+ [place] Branch Influenza Virus 2018-01-14 Completed Universit y of Vaccine 00:00:00 [facility] Influenza Virus 2018-01-14 Completed Universit y of Vaccine Quad .5 mL 00:00:00 [facility] 6+ [place] [facility] Influenza Virus 2018-01-14 Completed Universit y of Vaccine 00:00:00 [facility] Influenza Virus 2018-01-14 Completed Universit y of Vaccine Quad .5 mL 00:00:00 [facility] 6+ [place] [facility] Influenza Virus 2018-01-14 Completed Universit y of Vaccine 00:00:00 [facility] Influenza Virus 2018-01-14 Completed Universit y of Vaccine Quad .5 mL 00:00:00 [facility] IM 6+ [place] [facility] Influenza Virus 2018-01-14 Completed Universit y of Vaccine 00:00:00 [facility] Influenza Virus 2018-01-14 Completed Universit y of Vaccine Quad .5 mL 00:00:00 [facility] IM 6+ [place] [facility] Influenza Virus 2018-01-14 Completed Universit y of Vaccine 00:00:00 [facility] Vital Signs Vital Name Observation Time Observation Value Comments Source Systolic blood 2022-09-17 08:00:00 125 mm[Hg] Univer sity of pressure [facility] Diastolic blood 2022-09-17 08:00:00 78 mm[Hg] Unive rsity of [facility] Heart rate 2022-09-17 08:00:00 53 /min [facility] Respiratory rate 2022-09-17 08:00:00 20 /min [facility] Oxygen saturation in 2022-09-17 08:00:00 98 /min [facility] Arterial blood by [facility] Pulse oximetry [place] Body temperature 2022-09-17 03:24:00 36.72 Lynsey [facility] Body height 2022-09-17 03:24:00 165.1 cm [facility] Body weight 2022-09-17 03:24:00 114.76 kg [facility] BMI 2022-09-17 03:24:00 42.10 kg/m2 [facility] Systolic blood 2022-09-14 14:30:00 126 mm[Hg] Univer sity of pressure [facility] Diastolic blood 2022-09-14 14:30:00 71 mm[Hg] Unive rsity of pressure [facility] Heart rate 2022-09-14 14:30:00 68 /min [facility] Body temperature 2022-09-14 14:30:00 36.89 Lynsey [facility] Respiratory rate 2022-09-14 14:30:00 16 /min [facility] Body height 2022-09-14 14:30:00 165.1 cm [facility] Body weight 2022-09-14 14:30:00 114.896 kg [facility] BMI 2022-09-14 14:30:00 42.15 kg/m2 [facility] Oxygen saturation in 2022-09-14 14:30:00 99 /min University of Arterial blood by [facility] Pulse oximetry Branch Systolic blood 2022-09-04 20:33:00 119 mm[Hg] Univer sity of pressure [facility] Diastolic blood 2022-09-04 20:33:00 79 mm[Hg] Unive rsity of pressure [facility] Heart rate 2022-09-04 20:33:00 78 /min [facility] Respiratory rate 2022-09-04 20:33:00 18 /min Univ ersity of [facility] Body height 2022-09-04 20:33:00 165.1 cm [facility] Body weight 2022-09-04 20:33:00 113.49 kg [facility] BMI 2022-09-04 20:33:00 41.64 kg/m2 [facility] Oxygen saturation in 2022-09-04 20:33:00 97 /min University of Arterial blood by [facility] Pulse oximetry Branch Systolic blood 2022-08-30 21:22:00 118 mm[Hg] Univer sity of pressure [facility] Diastolic blood 2022-08-30 21:22:00 78 mm[Hg] Unive rsity of pressure [facility] Heart rate 2022-08-30 21:22:00 84 /min [facility] Respiratory rate 2022-08-30 21:22:00 18 /min Univ ersity of [facility] Body height 2022-08-30 21:22:00 165.1 cm [facility] Body weight 2022-08-30 21:22:00 113.399 kg [facility] BMI 2022-08-30 21:22:00 41.60 kg/m2 [facility] Systolic blood 2022-08-20 16:05:00 116 mm[Hg] Univer sity of pressure [facility] Diastolic blood 2022-08-20 16:05:00 65 mm[Hg] Unive rsity of pressure [facility] Respiratory rate 2022-08-20 16:05:00 16 /min Univ ersity of [facility] Oxygen saturation in 2022-08-20 16:05:00 98 /min University of Arterial blood by [facility] Pulse oximetry Branch Heart rate 2022-08-20 15:25:00 63 /min [facility] Body temperature 2022-08-20 14:43:00 35.94 Lynsey Univ ersity of [facility] Body height 2022-08-09 15:00:00 165.1 cm [facility] Body weight 2022-08-09 15:00:00 108.863 kg [facility] BMI 2022-08-09 15:00:00 39.94 kg/m2 [facility] Systolic blood 2022-08-20 15:00:00 114 mm[Hg] Univer sity of pressure [facility] Diastolic blood 2022-08-20 15:00:00 55 mm[Hg] Unive rsity of pressure [facility] Respiratory rate 2022-08-20 15:00:00 17 /min Univ ersity of [facility] Oxygen saturation in 2022-08-20 15:00:00 100 /min University of Arterial blood by [facility] Pulse oximetry Branch Heart rate 2022-08-20 14:43:00 70 /min [facility] Body temperature 2022-08-20 14:43:00 35.94 Lynsey Univ ersity of [facility] Body height 2022-08-09 15:00:00 165.1 cm [facility] Body weight 2022-08-09 15:00:00 108.863 kg [facility] BMI 2022-08-09 15:00:00 39.94 kg/m2 [facility] Systolic blood 2022-08-17 19:18:00 136 mm[Hg] Univer sity of pressure [facility] Diastolic blood 2022-08-17 19:18:00 78 mm[Hg] Unive rsity of pressure [facility] Heart rate 2022-08-17 19:18:00 86 /min [facility] Body height 2022-08-17 19:18:00 165.1 cm [facility] Body weight 2022-08-17 19:18:00 115.304 kg [facility] BMI 2022-08-17 19:18:00 42.30 kg/m2 [facility] Oxygen saturation in 2022-08-17 19:18:00 98 /min [facility] of Arterial blood by [place] [facility] Pulse oximetry Branch Systolic blood 2022-08-02 13:43:00 135 mm[Hg] Univer sity of pressure [facility] Diastolic blood 2022-08-02 13:43:00 85 mm[Hg] Unive rsity of pressure [facility] Heart rate 2022-08-02 13:43:00 72 /min [facility] Respiratory rate 2022-08-02 13:43:00 18 /min Univ ersity of [facility] Body height 2022-08-02 13:43:00 152.4 cm [facility] Body weight 2022-08-02 13:43:00 111.585 kg [facility] BMI 2022-08-02 13:43:00 48.04 kg/m2 [facility] Systolic blood 2022-07-29 03:00:00 129 mm[Hg] Univer sity of pressure [facility] Diastolic blood 2022-07-29 03:00:00 83 mm[Hg] Unive rsity of pressure [facility] Heart rate 2022-07-29 03:00:00 70 /min [facility] Respiratory rate 2022-07-29 03:00:00 16 /min Univ ersity of [facility] Oxygen saturation in 2022-07-29 03:00:00 98 /min University of Arterial blood by [place] [facility] Pulse oximetry [facility] Body temperature 2022-07-28 21:22:00 36.72 Lynsey Univ ersity of [facility] Body height 2022-07-28 21:22:00 165.1 cm [facility] Body weight 2022-07-28 21:22:00 109.77 kg [facility] BMI 2022-07-28 21:22:00 40.27 kg/m2 [facility] Systolic blood 2022-02-28 17:46:00 128 mm[Hg] Univer sity of pressure [facility] Diastolic blood 2022-02-28 17:46:00 28 mm[Hg] Unive rsity of pressure [facility] Heart rate 2022-02-28 17:46:00 93 /min Universi ty of [facility] Body height 2022-02-28 17:46:00 165.1 cm [facility] [place] [facility] [place] Body weight 2022-02-28 17:46:00 115.214 kg [facility] BMI 2022-02-28 17:46:00 42.27 kg/m2 Universi ty of [facility] Systolic blood 2021-11-27 15:19:00 139 mm[Hg] Univer sity of pressure [facility] Diastolic blood 2021-11-27 15:19:00 76 mm[Hg] Unive rsity of pressure [facility] Heart rate 2021-11-27 15:19:00 83 /min [facility] [place] Body height 2021-11-27 15:19:00 165.1 cm [facility] [place] Body weight 2021-11-27 15:19:00 120.385 kg [facility] BMI 2021-11-27 15:19:00 44.16 kg/m2 Universi ty of [facility] Oxygen saturation in 2021-11-27 15:19:00 99 /min University of Arterial blood by [facility] Pulse oximetry Branch Systolic blood 2021-08-25 21:45:00 124 mm[Hg] Univer sity of pressure [facility] Diastolic blood 2021-08-25 21:45:00 79 mm[Hg] Unive rsity of pressure [facility] Heart rate 2021-08-25 21:45:00 75 /min Universi ty of [facility] Body temperature 2021-08-25 21:45:00 36.44 Lynsey Univ ersity of [facility] Respiratory rate 2021-08-25 21:45:00 18 /min Univ ersity of [facility] Body height 2021-08-25 21:45:00 165.1 cm Universi ty of [facility] Body weight 2021-08-25 21:45:00 123.378 kg [facility] BMI 2021-08-25 21:45:00 45.26 kg/m2 [facility] Procedures Procedure Date / Time Performing Clinician Source Performed CT PELVIS WO [facility]AST 2022-09-17 07:57[facility] 2022-09-17 05:10:00 Tejal Sullivan [facility] CONTRAST [facility] CT CHEST PULMONARY 2022-09-17 05:10:00 Tejal Sullivan [facility] ANGIOGRAM [facility] POCT TEST 2022-09-17 04:46:00 Tejal Sullivan [facility] MAGNESIUM 2022-09-17 04:20:00 Tejal Sullivan [facility] COMP. METABOLIC PANEL 2022-09-17 04:20:00 Tejal Sullivan [facility] ([id number]) [facility] CBC WITH DIFF 2022-09-17 04:20:00 Tejal Sullivan [facility] URINALYSIS 2022-09-17 04:20:00 Tejal Sullivan [facility] NOTICE OF PRIVACY 2022-09-17 03:07:57 Doctor Unassigned, No [facility] PRACTICES Name [facility] CONSENT/REFUSAL FOR 2022-09-17 03:05:33 Doctor Unassigned, No [facility] DIAGNOSIS AND TREATMENT Name [facility] COMP. METABOLIC PANEL 2022-09-04 21:30:00 Faye Napoles [facility] ([id number]) [facility] CBC WITH DIFF 2022-09-04 21:30:00 Faye Napoles [place] o [facility] POCT TEST 2022-08-20 12:22:[address] [facility] POCT TEST 2022-08-20 12:22:[address] [facility] LAPAROSCOPIC 2022-08-20 12:15:00 Brooklyn Hartman [facility] OOPHORECTOMY [facility] LAPAROSCOPIC 2022-08-20 12:15:00 Brooklyn Hartman [facility] SALPINGECTOMY [facility] DAY SURGERY - ADC 2022-08-20 05:01:00 [facility]igned[facility] No [facility] 2022-08-03 05:01:00 Doctor Unassigned, No [facility] REC[facility]SU PRE-OP 2022-08-02 05:01:00 Doctor Unassigned, No [facility] 2022-08-02 05:01:00 [facility]igned[facility] No [facility] OVARY TORSION 2022-07-29 01:30:00 [place] [facility] CT ABDOMEN PELVIS W 2022-07-28 23:04:58 [place] [facility] COMP. METABOLIC PANEL 2022-07-28 22:20:00 [place] [facility] ([id number]) [facility] CBC WITH DIFF 2022-07-28 22:20:00 [place] [facility] URINALYSIS 2022-07-28 22:20:00 [place] [facility] CONSENT/REFUSAL FOR 2022-07-28 21:14:36 Doctor Unassigned, No [facility] DI[facility]NOS[facility] TREATMENT [facility] POCT HEMOGLOBIN A1C TEST 2022-02-28 17:58:00 Lanie Lopez [facility] En[facility] Start End Encounter Admission Attending Care Care Encounter Source Date/Time Date/Time Type Type Clinicians Facility Department ID 2021-03-22 Outpatient MATT Briceno [facility] [id number] Common 12:08:59 Cinda [id number] [facility] 2021-03[facility] [facility] [id number] Common 12:08:27 Cinda [id number] [facility] 2021-03-[address] [facility] [id number] Common 11:07:35 Cinda [id number] [facility] 2023-03-07 2023-03-07 Outpatient Smooth NAPOLES NMCAROL [facility] [id number] Univers 13:30:00 13:30:00 FAYE itcristopher [facility] 2022-12-10 2022-12-10 Outpatient R LANIE LOPEZ [facility] [id number] Univers 16:30:00 16:30:00 LANIE LOPEZ [facility] 2022-10-12 2022-10-12 Outpatient R MARY HARTMANSOL [facility] U [facility] [id number] Univers 15:30:00 15:30:00 MARY [facility]SOL [facility] 2022-09-24 2022-09-24 Outpatient R MARY HARTMANSOL [facility] U [facility] [id number] Univers 13:00: 13:00:00 BROOK[place]N HARTMAN [facility] 2022-09-20 2022-09-20 Telephone [facility] [id number] Univers 00:00:00 00:00:00 angelina Brooklyndi BLANCO [id number] ity [id number] [id number] [address] 2022-09-19 2022-09-19 Telephone Lanie Lopez [facility] [id number] Univers 00:00:00 00:00:00 HEALTH [id number] it y of [place] [id number] Flip as HESHAM?BLEA [id number] [address] MEDICAL OFFICE BUILDING 2022-09-19 2022-09-19 [facility] [id number] Univers 00:00:00 00:00:00 Secure Msg [place] alfaro [id number] [id number] [id number] [address] 2022-09-18 2022-09-18 Outpatient R MARY HARTMANSOL [facility] U [facility] [id number] Univers 11:40:00 11:40:00 LUCLEAMARYBROOKLYN [facility] 2022-09-18 2022-09-18 [facility]phone [facility] [id number] Univers 00:00:00 00:00:00 [place] alfaro [id number] ity [id number] [id number] [address] 2022-09-16 2022-09-17 Emergency X [facility] ERT [id number] Univers 22:33:00 03:30:00 TEJAL ity [facility] 2022-09-16 2022-09-17 Emergency [facility] 1.2.867.494 [id number] Univers 22:33:00 03:30:00 Tejal MARKS 350.1.13.10 ity of [place] 4.2.7.2.686 [facility] [id number] [address] 2022-09-14 2022-09-14 Outpatient R ALCALA-LEONORA [facility] [id number] Univers 09:00:00 09:53:56 MARY HARTMANSOL [facility] 2022-09-14 2022-09-14 Office [facility] 1.2.840.114 [id number] Univers 09:00:00 09:53:56 Visit [place] alfaro 350.1.13.10 ity of WOMEN'S 4.2.7.2.686 [facility] [id number] [address] 2022-09-14 2022-09-14 Outpatient R KIERAN BROOKLYN [facility] U [facility] [id number] Univers 08:00:00 08:00:00 ALCALAKvngLEONORA BROOKLYN [facility] 2022-09-07 2022-09-07 [facility] 1.2.840.114 [id number] Univers 00:00:00 00:00:00 Faye HEALTH 350.1.13.10 it y of [place] 4.2.7.2.686 Flip as HESHAM?BLEA [phone] Nd anshul LYONS [address] OFFICE [facility] 2022-09-06 2022-09-06 Refmegan Bowen Jose [facility] 1.2.265.004 [id number] Univers 00:00:00 00:00:00 Cam SELINA 350.1.13.10 i ty of [place].2.[place] [id number] Nd anshul NGUYỄN [address] [facility] 2022-09-04 2022-09-04 Wharfmaster Lab, Ang - Db [facility] 1.2.840.1 14 [id number] Univers 16:15:00 16:33:18 Visit Faye Napoles HEALTH 350.1.13.10 ity of [place] 4.2.7.2.686 Flip as HESHAM?BLEA [phone] [facility] LYONS [address] OFFICE [facility] 2022-09-04 2022-09-04 Outpatient R YESIKA [facility] [id number] Univers 15:00:00 16:21:35 FAYE ity [facility] 2022-09-04 2022-09-04 Office [facility] 1.2.840.114 [id number] Univers 15:00:00 16:21:35 Visit Faye HEALTH 350.1.13.10 it y [address] [facility] 4.2.7.2.686 Flip as HESHAM?BLEA [id number] [facility] LYONS [address] [facility] 2022-09-04 2022-09-04 Refill Yesika [facility] 1.2.840.114 [id number] Univers 00:00:00 00:00:00 Faye HEALTH 350.1.13.[address] [facility] 4.2.7.2.686 Flip as HESHAM?BLEA [id number] [facility] [address] OFFICE [facility] 2022-08-30 2022-08-30 Outpatient R BROOKLYN HARTMAN [facility] U [facility] [id number] Univers 16:30:00 16:49:20 BROOKLYN HARTMAN ity [facility] 2022-08-30 2022-08-30 Office Ross [facility] 1.2.840.114 [id number] Univers 16:30:00 16:49:20 Visit sBro[place] 350.1.13.10 ity of [place] [id number] [facility] [address] 2022-08-25 2022-08-25 Lanie Soto [facility] 1.2.840.114 [id number] Univers 00:00:00 00:00:00 HEALTH 350.1.13.10 it y of [place] 4.2.7.2.686 Flip as HESHAM?BLEA [id number] [address] MEDICAL OFFICE BUILDING 2022-08-22 2022-08-22 Telephone [facility] 1.2.840.11 4 [id number] Univers 00:00:00 00:00:00 sBrooklyn 350.1.13.10 ity of [place] HE[place] [id number] [address] 2022-08-20 2022-08-20 Outpatient R BROOKLYN HARTMAN [facility] G YN [id number] Univers 06:45:00 11:22:00 ALCALA-MARY LEASOL ity of [facility] 2022-08-20 2022-08-20 [facility] 1.2.840.114 1 [id number] Univers 06:45:00 11:22:00 Encounter s, [place] SELINA 350.1.13.10 ity of [facility] 4.2.7.2.[place] SURGICAL [id number] [facility] [address] 2022-08-20 2022-08-20 Surgery [facility] 1.2.840.114 10 [id number] Univers 07:15:00 10:03:00 s, [place] MAGGYAMPARO 350.1.13.10 ity of [place] 4.2.7.2.686 [place] SURGICAL [id number] [facility] [address] 2022-08-20 2022-08-20 Orders Doctor GUTIERREZ 1.2.840.114 [id number] Univers 00:00:00 00:00:00 Only Unassigned, LANE 350.1.13.10 ity of [place] [facility] 4.2.7.2.686 Flip as [id number] [address] 2022-08-20 2022-08-20 Telephone [facility] 1.2.840.114 [id number] Univers 00:00:00 00:00:00 s, [place] 350.1.13.10 ity of [facility] 4.2.7.2.686 [place] [facility] [id number] Nd anshul [facility] 2022-08-17 2022-08-17 Outpatient R JEFFERY [facility] [id number] Univers 14:00:00 14:52:48 EMILY jefferson [facility] 2022-08-17 2022-08-17 Office Jeffery [facility] 1.2.840.114 [id number] Univers 14:00:00 14:52:48 Visit [facility] 350.1.13.10 it y of [place] 4.2.7.2.686 Flip as HESHAM?BLEA [phone] Nd anshul ASENCIO [address] [place] MEDICAL OFFICE [facility] 2022-08-17 2022-08-17 Telephone [facility] 1.2.840.11 4 [id number] Univers 00:00:00 00:00:00 s, [place] BELLA 350.1.13.10 ity of [place] [id number] [address] 2022-08-15 2022-08-15 Wharfmaster Lab, Ang - Db [facility] 1.2.840.1 14 [id number] Univers 15:00:00 16:00:22 Visit Marco Gayle 350.1.13.10 ity of [place] 4.2.7.2.686 Flip as HESHAM?BLEA [phone] Nd dicisaura LYONS [address] MEDICAL OFFICE BUILDING 2022-08-15 2022-08-15 Outpatient R CLARENCE [facility] [id number] Univers 15:00:00 15:00:00 MARCO jefferson [facility] 2022-08-15 2022-08-15 Telephone Lanie Lopez [facility] 1.2.124.239 [id number] Univers 00:00:00 00:00:00 HEALTH 350.1.13.10 it y of [place] 4.2.7.2.686 Flip as HESHAM?BLEA [id number] [address] MEDICAL OFFICE BUILDING 2022-08-07 2022-08-07 Telephone Lanie Lopez [facility] 1.2.114.880 [id number] Univers 00:00:00 00:00:00 HEALTH 350.1.13.10 it y of [place] 4.2.7.2.686 Flip as HESHAM?BLEA [id number] [address] MEDICAL OFFICE [facility] 2022-08-03 2022-08-03 Orders Doctor MATT 1.2.840.114 [id number] Univers 00:00:00 00:00:00 Only Unassigned, LANE 350.1.13.10 ity of [place] [facility] 4.2.7.2.686 Flip as [phone] [place] [address] [address] 2022-08-02 2022-08-02 Outpatient R BROOKLYN HARTMAN [facility] [id number] Univers 08:30:00 09:17:20 BROOKLYN HARTMAN ity [facility] 2022-08-02 2022-08-02 Office [facility] 1.2.840.114 [id number] Univers 08:30:00 09:17:20 Visit [place] alfaro 350.1.13.10 ity of [place] HE[place] [id number] [facility] [address] 2022-08-02 2022-08-02 Prep For [facility] 1.2.840.114 [id number] Univers 00:00:00 00:00:00 Surgery [place] alfaro 350.1.13.10 ity of [place] [id number] [facility] [address] 2022-07-28 2022-07-28 Emergency X KEN PARKMB ERT [id number] Univers 16:25:00 22:46:00 MOO [facility] 2022-07-28 2022-07-28 Emergency [facility] 1.2.212.850 [id number] Univers 16:25:00 22:46:00 Moo MARKS 350.1.13.10 i ty of [place].2.7.2.[place] C[place] [id number] [address] 2022-07-27 2022-07-27 Outpatient R JEFFERY [facility] [id number] Univers 14:30:00 14:30:00 EMILY [facility] 2022-07-25 2022-07-25 Harrison Lopez [facility] 1.2.840.114 [id number] Univers 00:00:00 00:00:00 HEALTH 350.1.13.10 it y of [place] 4.2.7.2.686 Flip as HESHAM?BLEA [id number] [address] 2022-07-25 2022-07-25 Harrison Lopez [facility] 1.2.840.114 [id number] Univers 00:00:00 00:00:00 HEALTH 350.1.13.10 it y of [place] 4.2.7.2.686 Flpi as HESHAM?BLEA [id number] [address] 2022-07-20 2022-07-20 Harrison Lopez [facility] 1.2.840.114 [id number] Univers 00:00:00 00:00:00 HEALTH 350.1.13.10 it y of [place] 4.2.7.2.686 Flip as HESHAM?BLEA [id number] [address] 2022-07-02 2022-07-02 Outpatient R LANIE LOPEZ [facility] [id number] Univers 13:30:00 13:30:00 LANIE LOPEZ [facility] 2022-05-21 2022-05-21 Luis Manuel TAPIA 1.2.840.114 10 [id number] Univers 00:00:00 00:00:00 Management , Pearl FAULKNERY 350.1.13.10 ity of [place] [id number] [address] 2022-05-21 2022-05-21 Telephone Jacki CARRENORonaldo 1.2.840.114 [id number] Univers 00:00:00 00:00:00 , Pearl FAULKNERY 350.1.13.10 [place] of [place] [id number] [address] 2022-05-04 2022-05-04 Refill Gricelda [facility] 1.2.840.114 [id number] Univers 00:00:00 00:00:00 HEALTH 350.1.13.10 it y of [place] 4.2.7.2.686 Flip as HESHAM?BLEA [id number] [address] OFFICE [facility] 2022-03-02 2022-03-02 Refill Gricelda [facility] 1.2.840.114 [id number] Univers 00:00:00 00:00:00 PRIMARY 350.1.13.10 it y of [place].2.[place].2.[place] [id number] [address] 2022-02-28 2022-02-28 Outpatient R LANIE LOPEZ [facility] [id number] Univers 12:00:00 13:14:28 LANIE LOPEZ [facility] 2022-02-28 2022-02-28 Office Gricelda [facility] 1.2.840.114 [id number] Univers 12:00:00 13:14:28 Visit HEALTH 350.1.13.10 it y of [place] 4.2.7.2.686 Flip as HESHAM?BLEA [id number] [address] OFFICE [facility] 2022-02-28 2022-02-28 Wharfmaster Lab, Ang - [facility] 1.2.840.1 14 [id number] Univers 12:30:00 12:45:00 Visit Lanie Lopez HEALTH 350.1.13.10 it y of [place] 4.2.7.2.686 Flip as HESHAM?BLEA [id number] [facility] [address] OFFICE [facility] 2022-01-02 2022-01-02 Outpatient R LU [facility] [id number] Univers 15:30:00 15:30:00 ARIES cristopher [facility] 2021-12-19 2021-12-19 Patient Gricelda [facility] 1.2.840.114 [id number] Univers 00:00:00 00:00:00 Secure Msg PRIMARY 350.1.13.10 ity of [place] 4[place].2.[place] [id number] [address] 2021-12-15 2021-12-15 Outpatient [facility] [id number] Univers 16:30:00 16:30:00 [facility] 2021-12-15 2021-12-15 Telephone [facility] 1.2.504.049 [id number] Univers 00:00:00 00:00:00 Faye HEALTH 350.1.13.10 it y of [place] 4.2.7.2.686 Flip as HESHAM?BLEA [id number] [facility] [address] OFFICE [facility] 2021-11-29 2021-11-29 Refill Gricelda [facility] 1.2.840.114 [id number] Univers 00:00:00 00:00:00 HEALTH 350.1.13.10 it y of [place] 4.2.7.2.686 Flip as HESHAM?BLEA [id number] [facility] [address] OFFICE [facility] 2021-11-29 2021-11-29 Refill Gricelda [facility] 1.2.840.114 [id number] Univers 00:00:00 00:00:00 HEALTH 350.1.13.10 it y of [place] 4.2.7.2.686 Flip as HESHAM?BLEA [id number] [facility] [address] OFFICE [facility] 2021-11-27 2021-11-27 Outpatient R LANIE LOPEZ [facility] [id number] Univers 10:30:00 11:02:19 LANIE LOPEZ [facility] 2021-11-27 2021-11-27 Office Lanie Lopez [facility] 1.2.840.114 [id number] Univers 10:30:00 11:02:19 Visit HEALTH 350.1.13.10 it y of [place] 4.2.7.2.686 Flip as HESHAM?BLEA [id number] [address] MEDICAL OFFICE BUILDING 2021-11-24 2021-11-24 Refmegan [facility] 1.2.757.756 [id number] Univers 00:00:00 00:00:00 Chema HEALTH 350.1.13.10 it y of [place] 4.2.7.2.686 Flip as HESHAM?BLEA [id number] [address] MEDICAL OFFICE [facility] 2021-10-21 2021-10-21 Refill Gricelda [facility] 1.2.840.114 [id number] Univers 00:00:00 00:00:00 HEALTH 350.1.13.10 it y of [place] 4.2.7.2.686 Flip as HESHAM?BLEA [id number] [address] OFFICE [facility] 2021-10-20 2021-10-20 Outpatient R DEBRA IRVIN [facility] [id number] Univers 10:00:00 10:00:00 [facility] 2021-10-05 2021-10-05 Outpatient DEBRA GARCÍA [facility] [id number] Univers 15:00:00 15:00:00 [facility] 2021-09-29 2021-09-29 Outpatient R KIZZY MACKEY [facility] [id number] Univers 15:00:00 15:00:00 KIZZY MACKEY [facility] 2021-09-23 2021-09-23 Harrison Cannon [facility] 1.2.840.114 [id number] Univers 00:00:00 00:00:00 Nancy MULTISPEC 350.1.13.10 ity of [place]2.[place].2.[place] CENTER [id number] [address] DIABETES CLINIC 2021-09-12 2021-09-12 Outpatient R KEYKIZZY Hook [facility] [id number] Univers 13:00:00 13:00:00 KEYKIZZY Hook [facility] 2021-08-29 2021-08-29 Outpatient R LU [facility] [id number] Univers 09:00:00 09:00:00 ARIES [facility] 2021-08-29 2021-08-29 Telephone Lanie Lopez [facility] 1.2.162.947 [id number] Univers 00:00:00 00:00:00 PRIMARY 350.1.13.10 it y of [place].2.[place] [id number] Nd dicmd [address] [place] 2021-08-25 2021-08-25 Office Debra Irvin [facility] 1.2.840.114 [id number] Univers 15:00:00 15:30:00 Visit [place] 350.1.13.10 i ty of [place].2.7.2.[place] PROFESS[place] [id number] [facility]d [facility] [address] BUILDING 2021-08-25 2021-08-25 Outpatient R DEBRA IRVIN [facility] [id number] Univers 15:00:00 15:00:00 [facility] 2021-08-25 2021-08-25 Outpatient R DEBRA IRVIN [facility] [id number] Univers 15:00:00 15:00:00 [facility] 2021-08-23 2021-08-23 Wharfmaster Lab, [place] - Nadeem [facility] 1.2.840.1 14 [id number] Univers 09:30:00 09:45:00 Visit Lanie Lopez 350.1.13.10 it y of [place] 4.2.7.2.686 Flip as HESHAM?BLEA [phone] Nd anshul EY [address] MEDICAL OFFICE BUILDING 2021-08-23 2021-08-23 Outpatient R LANIE LOPEZ [facility] [id number] Univers 08:30:00 09:16:15 LANIE LOPEZ [facility] 2021-08-23 2021-08-23 Office Lanie Lopez [facility] 1.2.840.114 [id number] Univers 08:30:00 09:16:15 Visit HEALTH 350.1.13.10 it y of [place] 4.2.7.2.686 Filp as HESHAM?BLEA [id number] [address] OFFICE [facility] 2021-08-03 2021-08-03 Harrison [facility] 1.2.937.263 [id number] Univers 00:00:00 00:00:00 Chema HEALTH 350.1.13.10 it y of [place] 4.2.7.2.686 Flip as HESHAM?BLEA [id number] [address] 2021-08-02 2021-08-02 Outpatient R [facility] [id number] Univers 16:00:00 16:00:00 WENTONG ity of [facility] 2021-07-31 2021-07-31 Harrison [facility] 1.2.918.698 [id number] Univers 00:00:00 00:00:00 [facility] 350.1.13.10 it y of [place] 4.2.7.2.686 Flip as HESHAM?BLEA 492.4603088 [address] 2021-07-21 2021-07-21 Harrison [facility] 1.2.591.496 [id number] Univers 00:00:00 00:00:00 [facility] HEALTH 350.1.13.10 it y of [place] 4.2.7.2.686 Flip as HESHAM?BLEA [id number] [address] OFFICE [facility] 2021-07-20 2021-07-20 Harrison [facility] 1.2.840.114 [id number] Univers 00:00:00 00:00:00 Nancy MULTISPEC 350.1.13.10 ity of [place]2.[place].2.686 [place] [id number] [facility] AND [address] DIABETES CLINIC 2021-05-17 2021-05-17 Harrison [facility] 1.2.463.135 [id number] Univers 00:00:00 00:00:00 Chema Bernstein SELINA 350.1.13.10 i ty of [place] 4.2.7.2.[place] [id number] Nd dic[address] 2021-03-11 2021-03-11 [facility] 1.2.146.066 [id number] Univers 00:00:00 00:00:00 Chema Bernstein [place] 350.1.13.10 i ty of [place].2.7.2.[place] 170.8506997 Nd dic[address] 2021-03-08 2021-03-08 [facility] 1.2.240.292 [id number] Univers 00:00:00 00:00:00 Chema Bernstein SELINA 350.1.13.10 i ty of [place] 4.2.7.2.[place] [id number] [address] 2021-02-23 2021-02-23 Outpatient R JOSE BOWEN [facility] [id number] Univers 13:30:00 13:30:00 ity [facility] 2021-02-09 2021-02-09 Orders Doctor MATT 1.2.840.114 [id number] Univers 00:00:00 00:00:00 Only Unassigned, LANE 350.1.13.10 ity of [place] [facility] 4.2.7.2.686 Flip as [phone] [address] 2021-01-30 2021-01-30 Outpatient Smooth NAPOLES [facility] [id number] Univers 00:00:00 00:00:00 FAYE nunoy [facility] 2021-01-30 2021-01-30 Outpatient Smooth NAPOLES [facility] [id number] Univers 00:00:00 00:00:00 FAYE nurysy [facility] 2021-01-24 2021-01-24 Arti [facility] 1.2.234.642 [id number] Univers 00:00:00 [facility]:00:[facility] 350.1.13.10 it y of [place] 4.2.7.2.686 Flip as HESHAM?BLEA 488.0968607 Nd dical KNEY [address] OFFICE [facility] 2021-01-17 2021-01-17 Outpatient R KIZZY MACKEY [facility] [id number] Univers 13:00:00 13:00:00 KIZZY MACKEY ity of [facility] 2021-01-16 2021-01-16 Wharfmaster Matheus, Charli Lab Main [facility] 1.2.8 40.114 [id number] Univers 12:41:38 12:56:38 Visit Gaetano Jose Darci MARKS 350.1.13.10 ity of [facility] 4.2.7.2.[place] [id number] Nd dical DELMA [facility] 2021-01-16 2021-01-16 Office Jose Bowen Darci [facility] 1.2.840.114 [id number] Univers 10:57:50 11:58:36 Visit Aries Leigh 350.1.13.10 ity of [place] 4.2.7.2.[place] 113.3919611 Nd dical DELMA [address] [facility] 2021-01-16 2021-01-16 Outpatient R LU [facility] [id number] Univers 10:30:00 11:58:36 [facility]ES [facility] 2021-01-16 2021-01-16 Outpatient R LU [facility] [id number] Univers 10:30:00 11:58:36 ARIES [facility] 2021-01-16 2021-01-16 Orders Doctor MATT 1.2.840.114 [id number] Univers 00:00:00 00:00:00 Only Unassigned, LANE 350.1.13.10 ity of [place] [facility] 4.2.7.2.686 Flip as [id number] [address] 2021-01-13 2021-01-13 Patient Kassandra [facility] 1.2.840.114 [id number] Univers 00:00:00 00:00:00 Secure Msg Nancy MULTISPEC 350.1.13.10 ity of IALTY 4.2.7.2.686 [facility] [place] [id number] [facility] AND [place] [address] [place] DIABETES CLINIC 2021-01-10 2021-01-10 Telephone Yesika [facility] 1.2.676.702 [id number] Univers 00:00:00 00:00:00 Faye HEALTH 350.1.13.10 it y of [place] 4.2.7.2.686 Flip as HESHAM?BLEA [id number] Nd lupeisaura ASENCIO [address] [place] MEDICAL OFFICE [facility] 2021-01-06 2021-01-06 Outpatient R [facility] [id number] Univers 15:30:00 16:04:28 NANCY cristopher [facility] 2021-01-06 2021-01-06 Office [facility] 1.2.840.114 [id number] Univers 15:25:33 16:04:28 Visit Nancy HEALTH 350.1.13.10 it y of [place] 4.2.7.2.686 Flip as HESHAM?BLEA 450.7330345 Nd lupeisaura ASENCIO [address] [place] MEDICAL OFFICE [facility] 2021-01-06 2021-01-06 Outpatient R [facility] [id number] Univers 15:30:00 15:30:00 [facility] 2021-01-06 2021-01-06 Outpatient R [facility] [id number] Univers 15:30:00 15:30:00 [facility] 2021-01-05 2021-01-05 Outpatient R [facility] [id number] Univers 14:30:00 23:59:00 [facility] 2021-01-05 2021-01-05 [facility] 1.2.840.114 [id number] Univers 14:30:00 23:59:00 Encounter Faye HEALTH 350.1.13.[address] [facility] 4.2.7.2.686 Flip as HESHAM?BLEA [id number] Nd lupeisaura [facility] [address] MEDICAL OFFICE [facility] 2021-01-05 2021-01-05 Outpatient R [facility] [id number] Univers 14:30:00 14:30:00 FAYE jefferson [facility] 2021-01-05 2021-01-05 Outpatient R YESIKA [facility] [id number] Univers 14:30:00 14:30:00 FAYE jefferson [facility] 2021-01-05 2021-01-05 [facility], Ang - Db [facility] 1.2.840.1 [id number] Univers 14:08:27 14:23:27 Visit Stella Napolesroge ANDERSEN 350.1.13.[address] [facility] 4.2.7.2.686 Flip as HESHAM?BLEA [phone] Nd anshul LYONS [address] [place] MEDICAL OFFICE [facility] 2021-01-05 2021-01-05 Office Yesika [facility] 1.2.840.114 [id number] Univers 12:52:04 14:06:37 Visit Faye ANDERSEN 350.1.13.10 it y of [place] 4.2.7.2.686 Flip as HESHAM?BLEA [phone] Nd anshul LYONS [address] [place] MEDICAL OFFICE [facility] 2021-01-05 2021-01-05 Orders Doctor MATT 1.2.840.114 [id number] Univers 00:00:00 00:00:00 Only Unassigned, LANE 350.1.13.10 ity of [place] [facility] 4.2.7.2.686 Flip as [phone] [address] 2020-12-23 2020-12-23 Telephone Angelica [facility] 1.2.840.114 [id number] Univers 00:00:00 00:00:00 Chema Bernstein Sensorin 350.1.13.[address] [facility] 4.2.7.2.686 Flip as HESHAM?BLEA [phone] Nd anshul LYONS [address] MEDICAL OFFICE [facility] 2020-12-12 2020-12-12 Outpatient Smooth NAPOLES [facility] [id number] Univers 09:00:00 09:00:00 FAYEROGE jefferson [facility] 2020-11-25 2020-11-25 Outpatient R ANGELICA [facility] [id number] Univers 16:00:00 16:00:00 CHEMA nunocristopher [facility] 2020-11-21 2020-11-21 Outpatient R ANGELICA [facility] [id number] Univers 11:00:00 11:00:00 CHEMA jefferson [facility] 2020-10-28 2020-10-28 Telephone [facility] 1.2.840.114 [id number] Univers 00:00:00 00:00:00 Maribell MULTISPEC 350.1.13.10 [phone] [address] [facility] 2020-10-28 2020-10-28 Telephone [facility] 1.2.840.114 [id number] Univers 00:00:00 00:00:00 Maribell MULTISPEC 350.1.13.10 [place] [phone] [address] [facility] 2020-10-24 2020-10-24 [facility] 1.2.840.114 [id number] Univers 00:00:00 00:00:00 Senia Marks 350.1.13.10 i ty [place] [phone] [address] 2020-10-20 2020-10-20 Harrison [facility] 1.2.362.909 [id number] Univers 00:00:00 00:00:00 Chema Marks 350.1.13.10 i [place] [phone] Nd dical nal [address] [place] [address] 2020-10-20 2020-10-20 [facility] [id number] Univers 00:00:00 00:00:00 Chema Marks 350.1.13.10 i ty [place] [phone] Nd dical nal [address] [place] [address] 2020-07-24 2020-07-24 [facility]megan [facility] 1.2.125.134 [id number] Univers 00:00:00 00:00:00 Chema Marks 350.1.13.10 i ty [place] [phone] [address] 2020-06-25 2020-06-25 Outpatient [facility] [id number] Univers 13:10:00 13:10:00 [facility] 2020-06-04 2020-06-04 Outpatient [facility] [id number] Univers 13:00:00 13:00:00 [facility] 2020-05-25 2020-05-25 Outpatient [facility] [id number] Univers 15:00:00 15:00:00 [facility] 2020-05-13 2020-05-13 Office [facility] 1.2.488.894 [id number] Univers 10:59:16 12:12:32 Visit Chema Marks 350.1.13.10 i [place] [phone] [address] 2020-05-13 2020-05-13 Outpatient Smooth [facility] [id number] Univers 11:00:00 11:00:00 [facility] 2020-05-10 2020-05-10 Outpatient Smooth LEIGH [facility] [id number] Univers 14:30:00 14:30:00 [facility] 2020-04-24 2020-04-24 [facility]egan [facility] 1.2.526.480 [id number] Univers 00:00:00 00:00:00 Chema Marks 350.1.13.10 i [place] [phone] [address] 2020-02-15 2020-02-15 Harrison [facility] 1.2.378.994 [id number] Univers 00:00:00 00:00:00 Chema H Endicott 350.1.13.10 i ty [place] [phone] [facility] 2020-02-11 2020-02-11 Refmegan Felix [facility] 1.2.840.114 [id number] Univers 00:00:00 00:00:00 Fiona MULTISPEC 350.1.13.10 ity of [facility] [place] [phone] [facility] [place] [address] [place] [facility] 2020-01-29 2020-01-29 Outpatient R [facility] [id number] Univers 09:00:00 09:00:00 CHEMA ity of [facility] 2020-01-28 2020-01-28 Orders MATT Felix 1.2.840.114 [id number] Univers 00:00:00 00:00:[address] 350.1.13.10 it y of [facility] 4.2.7.2.686 Flip as [phone] [facility] [address] 2020-01-27 2020-01-27 Telephone [facility] 1.2.840.114 [id number] Univers 00:00:00 00:00:00 Chema H Endicott 350.1.13.10 i ty [place] [phone] [facility] 2019-12-28 2019-12-28 Refill [facility] 1.2.973.299 [id number] Univers 00:00:00 00:00:00 Chema H Endicott 350.1.13.10 i [place] [phone] [facility] 2019-12-28 2019-12-28 Refmegan [facility] 1.2.606.037 [id number] 00:00:00 00:00:00 Chema H Endicott 350.1.13.10 [place] 4.2.7.2.[address] Professio [phone] [address] 2019-07-28 2019-07-28 Outpatient R [facility] [id number] Univers 08:45:00 08:45:00 ity [facility] 2019-07-24 2019-07-[facility] 1.2.840.114 [id number] [facility] 08:17:11 11:47:51 ne Visit Chema Bernstein End[place]ott 350.1.13.10 ity [place] [phone] [address] 2019-07-24 2019-07-24 [facility] 1.2.840.114 [id number] 08:17:11 11:47:51 ne Visit Chema Bernstein Selina 350.1.13.10 [place] 4.2.7.2.[phone] 2019-07-24 2019-07-24 Outpatient [facility] [id number] Univers 10:30:00 10:30:00 CHEMA ity [facility] 2019-07-10 2019-07-10 Refill [facility] 1.2.840.114 [id number] Univers 00:00:00 00:00:00 Fiona MULTISPEC 350.1.13.10 ity of [place] [phone] [facility] AND [address] DIABETES [facility] 2019-07-10 2019-07-10 Refill [facility] 1.2.840.114 [id number] 92 00:00:00 00:00:00 Fiona MULTISPEC 350.1.13.10 IAL[place] 4.2.7.2.686 CENTER [phone] [place] [address] DIABETES [facility] 2019-05-20 2019-05-20 Telememanuel FelixAL[facility] 1.2.840.114 [id number] Univers 08:37:33 13:26:38 ne Visit Fiona Selina 350.1.13.10 ity [place] [phone] [address] 2019-05-20 2019-05-20 Telemedici Felix[facility] 1.2.840.114 [id number] 08:37:33 13:26:38 ne Visit Fiona Marks 350.1.13.10 [place] 4.2.7.2.[address] Professio [phone] [address] 2019-05-20 2019-05-20 Outpatient R [facility] [id number] Univers 09:30:00 09:30:[address] [facility] 2019-05-20 2019-05-20 Telephone [facility] 1.2.765.677 [id number] Univers 00:00:00 00:00:00 Fiona Riggston 350.1.13.10 i ty [place] [phone] [address] 2019-05-20 2019-05-20 Telephone [facility] 1.2.752.749 [id number] 00:00:00 00:00:00 Fiona Selina 350.1.13.10 [place] 4.2.7.2.[address] Professio [phone] [address] 2019-05-19 2019-05-19 Outpatient R [facility] [id number] Univers 14:15:00 14:15:[address] [facility] 2019-05-17 2019-05-17 Refill [facility] 1.2.840.114 [id number] Univers 00:00:00 00:00:00 Leathaargelia Selina 350.1.13.10 i ty [place] [phone] [address] 2019-05-17 2019-05-17 Refill Zully [facility] 1.2.840.114 [id number] Univers 00:00:00 00:00:00 Nicole Marks 350.1.13.10 i ty of [place] [phone] [address] 2019-05-17 2019-05-17 Refill [facility] 1.2.840.114 [id number] 58 00:00:00 00:00:00 Fiona Endicott 350.1.13.10 [place] 4.2.7.2.[address] Professio [phone] [address] 2019-05-17 2019-05-17 Refill [facility] 1.2.840.114 [id number] 59 00:00:00 00:00:00 Nicole Endicott 350.1.13.10 [place] 4.2.7.2.686 Professio [phone] [address] 2019-05-15 2019-05-15 Refill Isidro, [facility] 1.2.840.114 [id number] Univers 00:00:00 00:00:00 Leathaong Endicott 350.1.13.10 i ty [place] [phone] Nd dical [address] 2019-05-15 2019-05-15 Refill [facility] 1.2.840.114 [id number] 96 00:00:00 00:00:00 Leathaong Endicott 350.1.13.10 [place] 4.2.7.2.686 Professio [phone] [address] 2019-04-28 2019-04-28 Harrison [facility] 1.2.840.114 [id number] Univers 00:00:00 00:00:00 Nicole MULTISPEC 350.1.13.10 ity of [place]2.[place] [phone] [facility] AND [address] [facility] 2019-04-28 2019-04-28 Refmegan AndreaAL[facility] 1.2.840.114 [id number] 15 00:00:00 00:00:00 Nicole MULTISPEC 350.1.13.10 [place] IAL[place] 4.2.7.2.686 [place] [phone] [place] [address] [facility] CLINIC 2019-04-24 2019-04-24 Refmegan FelixAL[facility] 1.2.840.114 [id number] Univers 00:00:00 00:00:00 Wentong Endicott 350.1.13.10 i ty [place] [phone] [address] 2019-04-24 2019-04-24 Refill [facility] 1.2.840.114 [id number] 00:00:00 00:00:00 Wentong Endicott 350.1.13.10 [place] 4.2.7.2.[address] Professio [phone] [address] 2019-04-12 2019-04-12 [facility] [id number] Common 21:42:00 21:42:00 [facility] it [facility] 2019-04-09 2019-04-09 [facility] [id number] Common 10:45:00 10:45:00 [facility] 2019-04-03 2019-04-03 Refill [facility] 1.2.840.114 [id number] Univers 00:00:00 00:00:00 Wentong Endicott 350.1.13.10 i ty [place] [phone] [address] 2019-04-03 2019-04-03 Refill [facility] 1.2.840.114 [id number] 97 00:00:00 00:00:00 Wentong Endicott 350.1.13.10 [place] 4.2.7.2.686 Professio [phone] [address] 2018-11-05 2018-11-05 Outpatient Smooth LEIGH, [facility] [id number] Univers 15:00:00 15:00:00 ARIES jefferson [facility] 2018-10-30 2018-10-30 Telephone [facility] 1.2.379.172 [id number] Univers 00:00:00 00:00:00 Wentong Endicott 350.1.13.10 i ty [place] [phone] [address] 2018-10-30 2018-10-30 Telephone [facility] 1.2.871.344 [id number] 00:00:00 00:00:00 Fiona Marks 350.1.13.10 [place] 4.2.7.2.686 Professio [phone] nal 220 [facility] 2018-09-19 2018-09-19 Refmegan Andrea, [facility] 1.2.840.114 [id number] Univers 00:00:00 00:00:00 Nicole Marks 350.1.13.10 i ty of [place] [phone] Me dical [facility] 2018-09-19 2018-09-19 Harrison Andrea, [facility] 1.2.840.114 [id number] 00:00:00 00:00:00 Nicole Marks 350.1.13.10 [place] 4.2.7.2.686 Professio [phone] [facility] 220 [facility] 2018-08-06 2018-08-06 Out[facility] [id number] Common 11:09:00 11:09:00 t [facility] [address] [facility] 2018-04-23 2018-04-23 Out[facility] [id number] Common 01:12:00 01:12:00 t [facility] [address] [facility] 2018-04-22 2018-04-22 Outpatient [facility] [id number] Common 16:00:00 16:00:00 t [facility] [address] [facility] 2017-10-29 2017-10-29 Outpatient [facility] 15 [id number] Common 09:06:00 09:06:00 t [facility] [address] [facility] 2017-10-25 2017-10-25 Outpatient [facility] [id number] Common 23:08:00 23:08:00 t [facility] [address] [facility] 2017-10-25 2017-10-25 Outpatient [facility] 15 [id number] Common 15:00:00 15:00:00 t [facility] [address] [facility] Results Test Description Test Time Test Comments Results Result Comments Source MAGNESIUM 2022-09-17 04:53:45 Test Item Value Reference Range Interpretation Comme nts MAGNESIUM (test code = 1132067995) 2.1 mg/dL 1.7-2.4 Lab Interpretation (test code = 71996-8) Normal [facility] ([id number])2022-09-17 04:53:25 Test Item Value Reference Range Interpretation Comments NA (test code = 142 mmol/L 135-145 7113217214) K (test code = 4.0 mmol/L 3.5-5.0 4250080485) CL (test code = 113 mmol/L 98-108 H 4342723259) CO2 TOTAL (test code = 26 mmol/L 23-31 1442545051) AGAP (test code = 3 2-16 2286994905) BUN (test code = 17 mg/dL 7-23 8876658936) GLUCOSE (test code = 83 mg/dL 70-110 2438870926) CREATININE (test code = 0.75 mg/dL 0.50-1.04 8007625120) TOTAL BILI (test code = 0.3 mg/dL 0.1-1.5 9365993650) CALCIUM (test code = 8.2 mg/dL 8.6-10.6 L 0441212293) T PROTEIN (test code = 6.6 g/dL 6.3-8.2 9800244568) ALBUMIN (test code = 3.7 g/dL 3.5-5.0 6807177909) ALK PHOS (test code = 68 U/L 34-122 4276316048) ALTv (test code = 10 U/L 5-35 1742-6) AST(SGOT) (test code = 12 U/L 13-40 L 0131116118) eGFR (test code = 84.3 mL/min/1.73m2 5176002311) GRIFFIN (test code = GRIFFIN) Association of Glomerular Filtration Rate (GFR) and Staging of Kidney Disease* + --+ --+ ------+| GFR (mL/min/1.73 m2) ?| With Kidney Damage ?| ?Without Kidney Damage+ --------+ --------+ +| ?>90 ?| ?Stage one ?| ? Normal ?+ ---+ ---+ -------+| ?60-89 ?| ?Stage two ?| ? Decreased GFR ? + --+ --+ ------+| ?30-59 ?| ?Stage three ?| ? Stage three ? + --+ --+ ------+| ?15-29 ?| ?Stage four ? | ? Stage four ?+ ---+ ---+ -------+| ?<15 (or dialysis) ? ?| ?Stage five ? | ? Stage five ?+ ---+ ---+ -------+ *Each stage assumes the associated GFR level has been in effect for at least three months. ?Stages 1 to 5, with or without kidney disease, indicate chronic kidney disease. Notes: Determination of stages one and two (with eGFR >59mL/min/1.73 m2) requires estimation of kidney damage for at least three months as defined by structural or functional abnormalities of the kidney, manifested by either:Pathological abnormalities or Markers of kidney damage (including abnormalities in the composition of the blood or urine or abnormalities in imaging tests). Lab Interpretation Abnormal (test code = 86742-1) [id number] 04:46:00 Test Item Value Reference Range Interpretation Comments POCT PREG (test code = 1605) Negative On board controls acceptable with Yes C Line (test code = 3574) POCT PREG LOT # (test code = 3575 [id number] POCT PREG TEST DATE (test 02-07-2024 code = 3576) Lab Interpretation (test code = Normal 69252-1) [facility] WITH [id number] 04:41:49 Test Item Value Reference Range Interpretation Comments WBC (test code = 7.73 See_Comment [Automated 9693-2) message] The sy stem which generated this result transmitted reference range : 4.30 - 11.10 10*3/?L. The reference range was not used to interpret this result as normal/abnormal . RBC (test code = 3.69 See_Comment L [Automated 648-7) message] The sy stem which generated this result transmitted reference range : 3.93 - 5.25 10*6/?L. The reference range was not used to interpret this result as normal/abnormal . HGB (test code = 10.3 g/dL 11.6-15.0 L 718-7) HCT (test code = 32.3 % 35.7-45.2 L 4544-3) MCV (test code = 87.5 fL 80.6-95.5 787-2) MCH (test code = 27.9 pg 25.9-32.8 785-6) MCHC (test code = 31.9 g/dL 31.6-35.1 786-4) RDW-SD (test code = 45.2 fL 39.0-49.9 07741-7) RDW-CV (test code = 14.3 % 12.0-15.5 788-0) PLT (test code = 204 See_Comment [Automated 777-3) message] The sy stem which generated this result transmitted reference range : 166 - 358 10*3/ ?L. The reference r alba was not used to interpret this result as normal/abnormal . MPV (test code = 10.2 fL 9.5-12.9 74984-7) NRBC/100 WBC (test 0.0 See_Comment [Automat ed code = 0937891394) message] The system which generated this result transmitted reference range : 0.0 - 10.0 /100 WBCs. The refer ence range was not u sed to interpret th is result as normal/abnormal . NRBC x10^3 (test code See_Comment [Auto mated = 0508630419) message] The s ystem which generated this result transmitted reference range : 10*3/?L. The reference range was not used to interpret this result as normal/abnormal . GRAN MAT (NEUT) % 70.4 % (test code = 770-8) IMM GRAN % (test code 0.50 % = 6698983489) LYMPH % (test code = 19.8 % 736-9) MONO % (test code = 7.6 % 5905-5) EOS % (test code = 1.4 % 713-8) BASO % (test code = 0.3 % 706-2) GRAN MAT x10^3(ANC) 5.44 10*3/uL 1.88-7.09 (test code = 5055318852) IMM GRAN x10^3 (test 0.04 10*3/uL 0.00-0.06 code = 4426465259) LYMPH x10^3 (test code 1.53 10*3/uL 1.32-3.29 = 731-0) MONO x10^3 (test code 0.59 10*3/uL 0.33-0.92 = 742-7) EOS x10^3 (test code = 0.11 10*3/uL 0.03-0.39 711-2) BASO x10^3 (test code 0.01-0.07 = 704-7) Lab Interpretation Abnormal (test code = 96646-8) [facility]. METABOLIC PANEL ([id number])2022-09-05 04:19:50 Test Item Value Reference Range Interpretation Comments NA (test code = 138 mmol/L 135-145 2135969013) K (test code = 4.5 mmol/L 3.5-5.0 1898017446) CL (test code = 107 mmol/L 98-108 0978544951) CO2 TOTAL (test code 26 mmol/L 23-31 = 3470550004) AGAP (test code = 5 2-16 0280395913) BUN (test code = 13 mg/dL 7-23 4097785346) GLUCOSE (test code = 97 mg/dL 70-110 8863077571) CREATININE (test code 0.71 mg/dL 0.50-1.04 = 5566771380) TOTAL BILI (test code 0.6 mg/dL 0.1-1.1 = 4264186033) CALCIUM (test code = 9.1 mg/dL 8.6-10.6 6299955990) T PROTEIN (test code 7.1 g/dL 6.3-8.2 = 4912918726) ALBUMIN (test code = 4.2 g/dL 3.5-5.0 2811118428) ALK PHOS (test code = 84 U/L 34-122 2841902418) ALTv (test code = 15 U/L 5-35 1742-6) AST(SGOT) (test code 14 U/L 13-40 = 7882776647) eGFR (test code = 89.8 mL/min/1.73m2 1684168543) GRIFFIN (test code = GRIFFIN) Association of Glomerular Filtration Rate (GFR) and Staging of Kidney Disease* + + +- +| GFR (mL/min/1.73 m2) ?| With Kidney Damage ?| ?Without Kidney Damage+ ------+ ----+ ------+| ?>90 ?| ?Stage one ?| ? Normal ?+ -+ + -+| ?60-89 ?| ?Stage two ?| ? Decreased GFR ? + + +- +| ?30-59 ?| ?Stage three ?| ? Stage three ? + + +- +| ?15-29 ?| ?Stage four ? | ? Stage four ?+ -+ + -+| ?<15 (or dialysis) ? ?| ?Stage five ? | ? Stage five ?+ -+ + -+ *Each stage assumes the associated GFR level has been in effect for at least three months. ?Stages 1 to 5, with or without kidney disease, indicate chronic kidney disease. Notes: Determination of stages one and two (with eGFR >59mL/min/1.73 m2) requires estimation of kidney damage for at least three months as defined by structural or functional abnormalities of the kidney, manifested by either:Pathological abnormalities or Markers of kidney damage (including abnormalities in the composition of the blood or urine or abnormalities in imaging tests). [facility] WITH [id number] 03:49:48 Test Item Value Reference Range Interpretation Comments WBC (test code = 8.89 See_Comment [Automated 3735-2) message] The sy stem which generated this result transmitted reference range : 4.30 - 11.10 10*3/?L. The reference range was not used to interpret this result as normal/abnormal . RBC (test code = 4.01 See_Comment [Automated 504-8) message] The sy stem which generated this result transmitted reference range : 3.93 - 5.25 10*6/?L. The reference range was not used to interpret this result as normal/abnormal . HGB (test code = 11.1 g/dL 11.6-15.0 L 718-7) HCT (test code = 36.0 % 35.7-45.2 4544-3) MCV (test code = 89.8 fL 80.6-95.5 787-2) MCH (test code = 27.7 pg 25.9-32.8 785-6) MCHC (test code = 30.8 g/dL 31.6-35.1 L 786-4) RDW-SD (test code = 46.2 fL 39.0-49.9 94893-5) RDW-CV (test code = 14.1 % 12.0-15.5 788-0) PLT (test code = 299 See_Comment [Automated 777-3) message] The sy stem which generated this result transmitted reference range : 166 - 358 10*3/ ?L. The reference r alba was not used to interpret this result as normal/abnormal . MPV (test code = 10.5 fL 9.5-12.9 78079-1) NRBC/100 WBC (test 0.0 See_Comment [Automat ed code = 1099879487) message] The system which generated this result transmitted reference range : 0.0 - 10.0 /100 WBCs. The refer ence range was not u sed to interpret th is result as normal/abnormal . NRBC x10^3 (test code See_Comment [Auto mated = 3465794882) message] The s ystem which generated this result transmitted reference range : 10*3/?L. The reference range was not used to interpret this result as normal/abnormal . GRAN MAT (NEUT) % 83.0 % (test code = 770-8) IMM GRAN % (test code 0.60 % = 2449737387) LYMPH % (test code = 10.5 % 736-9) MONO % (test code = 4.9 % 5905-5) EOS % (test code = 0.8 % 713-8) BASO % (test code = 0.2 % 706-2) GRAN MAT x10^3(ANC) 7.38 10*3/uL 1.88-7.09 H (test code = 1103760991) IMM GRAN x10^3 (test 0.05 10*3/uL 0.00-0.06 code = 9216238299) LYMPH x10^3 (test code 0.93 10*3/uL 1.32-3.29 L = 731-0) MONO x10^3 (test code 0.44 10*3/uL 0.33-0.92 = 742-7) EOS x10^3 (test code = 0.07 10*3/uL 0.03-0.39 711-2) BASO x10^3 (test code 0.01-0.07 = 704-7) Lab Interpretation Abnormal (test code = 20577-0) [facility] [id number] 12:22:00 Test Item Value Reference Range Interpretation Comments POCT PREG (test code = 1605) Negative On board controls acceptable with C Yes Line (test code = 3574) POCT PREG LOT # (test code = 3575) [id number] POCT PREG TEST DATE (test 59417 code = 3576) Lab Interpretation (test code = Normal 07496-7) [facility] [id number] 12:22:00 Test Item Value Reference Range Interpretation Comments POCT PREG (test code = 1605) Negative On board controls acceptable with C Yes Line (test code = 3574) POCT PREG LOT # (test code = 3575) [id number] POCT PREG TEST DATE (test 25419 code = 3576) Lab Interpretation (test code = Normal 96472-1) [facility] METABOLIC PANEL ([id number])2022-07-28 22:53:38 Test Item Value Reference Range Interpretation Comments NA (test code = 139 mmol/L 135-145 3933192433) K (test code = 3.6 mmol/L 3.5-5.0 9863510388) CL (test code = 107 mmol/L 98-108 2134256601) CO2 TOTAL (test code = 25 mmol/L 23-31 9463724742) AGAP (test code = 7 2-16 2240031908) BUN (test code = 14 mg/dL 7-23 1870450962) GLUCOSE (test code = 97 mg/dL 70-110 7738988473) CREATININE (test code = 0.73 mg/dL 0.50-1.04 9654115047) TOTAL BILI (test code = 0.6 mg/dL 0.1-1.9 0830243944) CALCIUM (test code = 9.0 mg/dL 8.6-10.6 5923239312) T PROTEIN (test code = 6.8 g/dL 6.3-8.2 1378794081) ALBUMIN (test code = 4.1 g/dL 3.5-5.0 0086487992) ALK PHOS (test code = 75 U/L 34-122 7630421214) ALTv (test code = 13 U/L 5-35 1742-6) AST(SGOT) (test code = 12 U/L 13-40 L 6525584774) eGFR (test code = 87.0 mL/min/1.73m2 7160863319) GRIFFIN (test code = GRIFFIN) Association of Glomerular Filtration Rate (GFR) and Staging of Kidney Disease* + --+ --+ ------+| GFR (mL/min/1.73 m2) ?| With Kidney Damage ?| ?Without Kidney Damage+ --------+ --------+ +| ?>90 ?| ?Stage one ?| ? Normal ?+ ---+ ---+ -------+| ?60-89 ?| ?Stage two ?| ? Decreased GFR ? + --+ --+ ------+| ?30-59 ?| ?Stage three ?| ? Stage three ? + --+ --+ ------+| ?15-29 ?| ?Stage four ? | ? Stage four ?+ ---+ ---+ -------+| ?<15 (or dialysis) ? ?| ?Stage five ? | ? Stage five ?+ ---+ ---+ -------+ *Each stage assumes the associated GFR level has been in effect for at least three months. ?Stages 1 to 5, with or without kidney disease, indicate chronic kidney disease. Notes: Determination of stages one and two (with eGFR >59mL/min/1.73 m2) requires estimation of kidney damage for at least three months as defined by structural or functional abnormalities of the kidney, manifested by either:Pathological abnormalities or Markers of kidney damage (including abnormalities in the composition of the blood or urine or abnormalities in imaging tests). Lab Interpretation Abnormal (test code = 41415-3) [facility] WITH [id number] 22:41:58 Test Item Value Reference Range Interpretation Comments WBC (test code = 7.61 See_Comment [Fcmqwgdnr 3341-2) message] The sy stem which generated this result transmitted reference range : 4.30 - 11.10 10*3/?L. The reference range was not used to interpret this result as normal/abnormal . RBC (test code = 4.07 See_Comment [Automated 789-8) message] The sy stem which generated this result transmitted reference range : 3.93 - 5.25 10*6/?L. The reference range was not used to interpret this result as normal/abnormal . HGB (test code = 12.0 g/dL 11.6-15.0 718-7) HCT (test code = 35.9 % 35.7-45.2 4544-3) MCV (test code = 88.2 fL 80.6-95.5 787-2) MCH (test code = 29.5 pg 25.9-32.8 785-6) MCHC (test code = 33.4 g/dL 31.6-35.1 786-4) RDW-SD (test code = 43.9 fL 39.0-49.9 69549-9) RDW-CV (test code = 13.8 % 12.0-15.5 788-0) PLT (test code = 225 See_Comment [Automated 777-3) message] The sy stem which generated this result transmitted reference range : 166 - 358 10*3/ ?L. The reference r alba was not used to interpret this result as normal/abnormal . MPV (test code = 9.7 fL 9.5-12.9 55525-9) NRBC/100 WBC (test 0.0 See_Comment [Automat ed code = [id number]) message] The system which generated this result transmitted reference range : 0.0 - 10.0 /100 WBCs. The refer ence range was not u sed to interpret th is result as normal/abnormal . NRBC x10^3 (test code See_Comment [Auto mated = [id number]) message] The s ystem which generated this result transmitted reference range : 10*3/?L. The reference range was not used to interpret this result as normal/abnormal . GRAN MAT (NEUT) % 81.5 % (test code = 770-8) IMM GRAN % (test code 0.40 % = 5725126669) LYMPH % (test code = 11.0 % 736-9) MONO % (test code = 6.3 % 5905-5) EOS % (test code = 0.5 % 713-8) BASO % (test code = 0.3 % 706-2) GRAN MAT x10^3(ANC) 6.20 10*3/uL 1.88-7.09 (test code = 7991480592) IMM GRAN x10^3 (test 0.03 10*3/uL 0.00-0.06 code = 9623137010) LYMPH x10^3 (test code 0.84 10*3/uL 1.32-3.29 L = 731-0) MONO x10^3 (test code 0.48 10*3/uL 0.33-0.92 = 742-7) EOS x10^3 (test code = 0.04 10*3/uL 0.03-0.39 711-2) BASO x10^3 (test code 0.01-0.07 = 704-7) Lab Interpretation Abnormal (test code = 16676-4) [facility] HEMOGLOBIN A1C [id number] 17:58:00 Test Item Value Reference Range Interpretation Comments POCT HBA1C (test code = 4548-4) 4.8 % 4-6 [facility] HEMOGLOBIN A1C [id number] 17:58:00 Test Item Value Reference Range Interpretation Comments POCT HBA1C (test code = 4548-4) 4.8 % 4-6 [facility] Notes Date/Time Note Provider Source 2022-09-21 Formatting of this note might be differe nt from the original. Ramses Crowley RN [facility] 10:03:30-00:[address] Hartman 09/24/22. Ramses Crowley RN 09/21/2022 10:03 AM 2022-09-20 Formatting of this note might be differe nt from the original. Peggy Mcneil RN [facility] 16:59:30-00:00 Patient notified of results from CT scan. Patient states that she continues to have pain that is not controlled. Patient concerned that last CT scan revealed inguinal hernias, but had prior CT scan in and didn't show no herni as. Scheduled patient to follow-up with provider regarding scan results and unmanaged pain. Patient given ER precautions, appt scheduled. Peggy Mcneil RN 09/20/2022 4:59 PM Electronically signed by Peggy Mcneil RN at 0 09/20/2022 5:00 PM CDT 2022-09-20 Formatting of this note might be differe nt from the original. Peggy Mcneil RN [facility] 16:57:00-00:00 Patient notified of results from CT scan. Patient states that she continues to have pain that is not controlled. Had a fall went to ER, CT scan revealed inguinal hernias, but had prior CT scan in July didn't show no hernias. S cheduled patient to follow-up with provider regarding scan results and unmanaged pain. Patient given ER precautions, appt scheduled. Peggy Mcneil RN 09/20/2022 4:59 PM Electronically signed by Peggy Mcneil RN at 0 09/20/2022 4:59 PM CDT 2022-09-20 [facility] 13:04:15-00:00 Returned patients call, no answer, unable to tenisha ve voicemail. Peggy Mcneil RN 09/20/2022 1:36 PM Electronically signed by Peggy Mcneil RN at 0 09/20/2022 1:36 PM CDT 2022-09-20 Formatting of this note might be differe nt from the original. Turner Amador [facility] 10:58:59-00:00 PT called and wanted to know what the next step going forward is going to be now that's she has been verified a hernia? Please advise Electronically signed by Turner Amador at 08/26 11:00 AM T 2022-09-20 Formatting of this note might be differe nt from the original. Bibiana Rocha LVN [facility] 07:58:03-00:00 Sending patient [employer] message. 2022-09-19 [facility] 14:38:54-00:[address] Catherine ramos, she is to double her dose for 3 days and then go back to her normal dose. T 2022-09-19 [facility] 10:17:55-00:00 Spoke to patient. She report s she had her surgery and has had a lot of complications that have put her [place]'s disease "into crisis". She has been to [facility] ER and was given emergency dose of cortisol a nd fluids for dehydration. S till reports dizziness, dehydration, feeling like she might faint. Not sure what she needs to do. T 2022-09-19 Formatting of this note might be differe nt from the original. Urszula Augustin [facility] 09:54:11-00:00 Patient would like a nurse t o call her marshall regarding her Addisons disease. Electronically signed by Urszula Augustin at 9:56 AM T 2022-09-18 [facility] 16:47:44-00:00 Unable to leave voice mail due to inbox being fu ll. T 2022-09-18 [facility] 10:25:44-00:[address] scan results. Do no t describes any incisional hernias. Describes small bilateral inguinal hernias with fat. Small left ovarian cysts but the rest is ok. Likely patient is taking longer healing and pain is related to that. Brooklyn Hartman MD 2022-09-18 [facility] 10:19:26-00:00 Spoke with patient, name and verified. Patient was calling to get the results from her recent CT. Informed patient since they were done in the ER, Dr. Hartman' name is not attached to the order so she probably hasn't view ed them. Informed patient I will route the message to her provider so she can take a look at her recent imaging and then let us know what the next steps will be. 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 2022-09-18 Formatting of this note might be differe nt from the original. Bri Broussard [facility] 10:12:44-00:00 Pt is wanting to discuss res ults with nurse and is wanting to know the next step. Electronically signed by Bri Broussard at 10:13 AM CDT 2022-09-17 [facility] 03:14:00-00:00 Awake, alert oriented X4, r espiratory even and unlabored,skin w/d color appropriate for race, moves all ext well, pt encouraged to follow up with pcp and or return as needed Pt given printed and verbal discharge instructions regarding Syncope, Dizziness, Pain of right hip, hx of [place]'s disease , patient verbralized understanding and signature obtained, patient denies any other concerns. Advised to seek medical attention for new/prolon ged/worsening of symptoms, No adverse reaction to meds given in ER noted up on discharge Pt ambulated to the [facility] with steady gait Electronically signed by Cookie Hernandez RN at 0 09/17/2022 4:07 AM CDT 2022-09-17 Formatting of this note might be differe nt from the original. Venessa Guzman RN [facility] 01:03:03-00:00 Gave report to KESHAV Hernandez. Electronically signed by Venessa Guzman RN a t 09/17/2022 1:03 AM CDT 2022-09-17 [facility] 01:03:03-00:00 Assumed care of patient, rec eived report from KESHAV Echols. Visitor at bedside. Pt awaiting Ct-scan results. Will continue to monitor. Electronically signed by Cookie Hernandez RN at 0 09/17/2022 1:04 AM CDT 2022-09-16 Formatting of this note might be differe nt from the original. Cookie Hernandez RN [facility] 22:22:01-00:00 Pt states she has a lump to incision for her partial hysterectomy of 08/20/2022, pt states today she woke up and has been feeling dizzy, pt states approx 1 hr [employer] she had a syncope episode and woke up o n the floor, pt states she i s having pain the incision and hip pain on the right side. Electronically signed by Cookie Hernandez RN at 0 09/16/2022 10:24 PM CDT
[2022-09-24] MEDS ORDERED: FENTANYL CITR 100 MCG/2 ML ONE (01:59)
[2022-09-24] MEDS ORDERED: NA CHLORIDE 0.9% 1,000 ML ONE (02:00)
[2022-09-24] MEDS ORDERED: MECLIZINE HCL 12.5 MG TAB ONE (02:00)
[2022-09-24] MEDS ORDERED: ONDANSETRON 4 MG/2 ML VIAL ONE (02:00)
[2022-09-24] MEDS ORDERED: HYDROCORTISONE SUC 100 MG INJ ONE (02:00)
[2022-09-24 02:07] LABS: Urine Bacteria <20 /HPF (<20); Urine RBC <5 /HPF (None Seen)
[2022-09-24 02:08] LABS: Absolute Lymphocytes (CBC) 0.7 K/uL (0.7-4.9); Hematocrit 32.8 % (36.0-45.0); Lymphocytes % 13.5 % (15.3-44.8); MPV 7.9 fL (7.6-11.3); RBC Red Blood Cell Count 3.95 M/uL (3.86-4.86)
[2022-09-24 02:17] LABS: ALT/SGPT 13 U/L (13-56); Albumin 3.3 g/dL (3.4-5.0); Alkaline Phosphatase 73 U/L (45-117); BUN Blood Urea Nitrogen 11 mg/dL (7-18); Bicarbonate 25 mEq/L (21-32); Bilirubin Total 0.2 mg/dL (0.2-1.0); Glomerular Filtration Rate 82 ml/min (=/>90); Glucose Level 96 mg/dL (74-106); Magnesium 2.2 mg/dL (1.6-2.4); Potassium 3.2 mEq/L (3.5-5.1); Protein, Total 6.7 g/dL (6.4-8.2); Sodium Level 141 mEq/L (136-145)
[2022-09-24 02:23] LABS: AST/SGOT < 4 U/L (15-37); Bilirubin Direct < 0.1 mg/dL (0-0.2); Bilirubin Indirect, Calculated ND mg/dL (0.2-0.8)
[2022-09-24] MEDS ORDERED: CALCIUM GLUCONATE 1 GM IVPB 1 GM/50 ML BAG IV ONE (03:21)
[2022-09-24] MEDS ORDERED: POTASSIUM 25 MEQ EFFERV TAB ONE (03:21)
[2022-09-24] MEDS ORDERED: POTASSIUM CL SA 10 MEQ TAB PO ONE (03:31)
--- NOTE | 2022-09-24 05:15 | EDPHYS ---
Physician Documentation [facility] Name: Lavinia Jarrett Age: 41 yrs Sex: Female : 1980 Arrival Date: 09/24/2022 Time: 00:43 Bed 5 Private MD: ED Physician Ben Navarro HPI: 09/24 01:15 This 41 yrs old Female presents to ER via Wheelchair with complaints of Post cp Surgical Pain, PARTIAL HYSTERECTOMY POST OP PROBLEM. 01:15 Patient is a 41-year-old female with past medical history significant for Aston's cp disease, bipolar disorder, schizophrenia, depression and chronic pain. Patient presents to the emergency department with reported abdominal pain, dizziness. Patient reports having partial hysterectomy performed on August 20 at [facility] and since she has had continued abdominal pain with concern of exacerbation of Aston's disease. Patient is concerned that she is in a crisis as she has had some dizziness, syncopal episodes and prior to arriving to the ER tonight a near syncopal episode. The patient also reports upper respiratory symptoms cough congestion and subjective fever. 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 - Social history:: Smoking status: Patient reports the use of cigarette tobacco products, smokes one pack cigarettes per day. ROS: 01:20 Constitutional: Negative for body aches, chills, fever, poor PO intake. cp 01:20 Eyes: Negative for injury, pain, redness, and discharge. cp 01:20 ENT: Negative for drainage from ear(s), ear pain, sore throat, difficulty swallowing, difficulty handling secretions. 01:20 Cardiovascular: Negative for chest pain, edema. 01:20 Respiratory: Positive for cough, "sounds productive". 01:20 Abdomen/GI: Positive for abdominal pain, Negative for vomiting, diarrhea, constipation. 01:20 : Negative for urinary symptoms, vaginal bleeding. 01:20 Skin: Negative for rash. 01:20 Neuro: Positive for dizziness, headache, syncope, Negative for altered mental status. 01:20 All other systems are negative. Exam: 01:25 Constitutional: The patient appears in no acute distress, alert, awake, cp non-diaphoretic, non-toxic, well developed, well nourished, obese. 01:25 Head/Face: Normocephalic, atraumatic. cp 01:25 Eyes: Periorbital structures: appear normal, Conjunctiva: normal, no exudate, no cp injection, Sclera: no appreciated abnormality, Lids and lashes: appear normal, bilaterally. 01:25 ENT: External ear(s): are unremarkable, Nose: is normal, Mouth: Lips: moist, Oral mucosa: pink and intact, moist, Posterior pharynx: is normal, airway is patent, no erythema, no exudate. 01:25 Neck: ROM/movement: is normal, is supple, without pain, no range of motions limitations, no meningismus. 01:25 Chest/axilla: Inspection: normal. 01:25 Cardiovascular: Rate: normal, Rhythm: regular, Edema: is not appreciated, JVD: is not appreciated. 01:25 Respiratory: the patient does not display signs of respiratory distress, Respirations: normal, no use of accessory muscles, no retractions, labored breathing, is not present, Breath sounds: bronchial sounds, that are mild, are heard diffusely, stridor, is not appreciated, wheezing: is not appreciated. 01:25 Abdomen/GI: Inspection: obese Bowel sounds: active, all quadrants, Palpation: soft, in all quadrants, moderate abdominal tenderness, in the right lower quadrant and left lower quadrant, rebound tenderness, is not appreciated. 01:25 Back: CVA tenderness, is absent. 01:25 Neuro: Orientation: to person, place \\T\\ time. Mentation: is normal, Motor: moves all fours, strength is normal. 02:00 ECG was reviewed by the Attending Physician. Vital Signs: 01:13 BP 103 / 61; Pulse 71; Resp 14; Temp 97; Pulse Ox 100% ; Weight 111.58 kg; Height 5 ft. vc1 5 in. ; Pain 10/10; 02:00 BP 100 / 63; Pulse 52; Resp 17; Pulse Ox 100% on R/A; kd3 02:08 BP 139 / 84; Pulse 50; Resp 18; Pulse Ox 100% on R/A; kd3 02:22 BP 167 / 95; Pulse 46; Resp 19; Pulse Ox 100% on R/A; kd3 04:26 Pulse 51; Resp 16; Pulse Ox 97% on R/A; kd3 04:27 BP 155 / 98; kd3 05:31 BP 128 / 83; Pulse 49; Resp 19; Pulse Ox 99% on R/A; kd3 01:13 Body Mass Index 40.94 (111.58 kg, 165.1 cm) vc1 01:13 Pain Scale: Adult vc1 MDM: 00:54 Patient medically screened. cp 05:07 ED course: CT ABDOMEN and PELVIS: INTRAPERITONEAL SPACE: Unremarkable. No free air. No sp4 significant fluid collection. BONES/JOINTS: No acute fracture. SOFT TISSUES: Evidence of prior ventral wall hernia repair is noted. VASCULATURE: Unremarkable. No abdominal aortic aneurysm. LYMPH NODES: Unremarkable. No enlarged lymph nodes. IMPRESSION: 1. Mild biliary dilatation. This may be related to postcholecystectomy state. However, if clinically indicated, ultrasound and/or MRCP could be performed for further evaluation. 2. Otherwise, no acute findings on this contrasted CT of the abdomen and pelvis to explain the patient's symptoms. . ED course: EXAM: XR Chest, 1 View CLINICAL HISTORY: The patient is 41 years old and is Female; COUGH TECHNIQUE: Frontal view of the chest. COMPARISON: No relevant prior studies available. FINDINGS: Lungs: Unremarkable. No consolidation. Pleural space: Unremarkable. No pneumothorax. Heart: Unremarkable. Mediastinum: Unremarkable. Bones/joints: Unremarkable. IMPRESSION: No acute findings in the chest. . ED course: CT head - IMPRESSION: No acute intracranial findings. 05:10 Differential Diagnosis altered mental status, sepsis, flu. Data reviewed: vital signs, sp4 nurses notes, old medical records, lab test result(s), Flu: negative radiologic studies, CT scan, plain films. Consideration of Admission/Observation Escalation of care including admission/observation considered. ED course: Patient has had right salpingo[facility]oophorectomy at [facility] on 08/20/2022. Patient today presents with fever, dizziness, feeling unwell overall and abdominal pain starting yesterday. Patient care was assumed from APC 3A. Patient is positive for COVID which is likely the source of the discomfort. Overall CT abdomen pelvis does not reveal any acute abdominal or pelvic emergencies. Chest x-ray is clear CT head is negative . patient is stable for discharge home with as needed medications for coronavirus and also Paxlovid as well. Advised home quarantine for the next 5 days. . 09/24 01:11 Order name: Urine Microscopic Only; Complete Time: 02:55 09/24 01:11 Order name: Basic Metabolic Panel; Complete Time: 02:55 09/24 02:55 Interpretation: Normal except: K 3.2; CL 111; GFR 82; CA 7.7. 09/24 01:11 Order name: CBC with Diff; Complete Time: 02:55 09/24 02:55 Interpretation: Normal except: HGB 10.7; HCT 32.8; RDW 15.3; LYM% 13.5. 09/24 01:11 Order name: LFT's; Complete Time: 02:55 09/24 01:11 Order name: Magnesium; Complete Time: 02:55 09/24 01:11 Order name: Influenza Screen (a \\T\\ B); Complete Time: 02:55 09/24 01:11 Order name: COVID-19 SARS RT PCR; Complete Time: 02:55 09/24 02:55 Interpretation: Reviewed. 09/24 01:11 Order name: XRAY Chest (1 view) 09/24 01:42 Order name: CT Head Brain wo Cont 09/24 01:42 Order name: CT Abd/Pelvis - IV Contrast Only 09/24 01:11 Order name: EKG; Complete Time: 01:12 09/24 01:11 Order name: Cardiac monitoring; Complete Time: 02:00 09/24 01:11 Order name: EKG - Nurse/Tech; Complete Time: 02:00 09/24 01:11 Order name: IV Saline Lock; Complete Time: :41 09/24 01:11 Order name: Labs collected and sent; Complete Time: :41 09/24 01:11 Order name: O2 Per Protocol; Complete Time: 01:42 09/24 01:11 Order name: O2 Sat Monitoring; Complete Time: 01:42 cp EC:00 Rate is 52 beats/min. Rhythm is regular. AR interval is normal. QRS interval is normal. cp QT interval is prolonged at 526 msec. T waves are Inverted in lead aVR. Interpreted by me. Reviewed by me. Administered Medications: 01:59 Drug: Ondansetron IVP 4 mg Route: IVP; Site: right antecubital; kd3 05:30 Follow up: Response: No adverse reaction; Nausea is decreased kd3 01:59 Drug: fentaNYL (PF) IVP 25 mcg Route: IVP; Site: right antecubital; kd3 05:30 Follow up: Response: No adverse reaction; Pain is decreased kd3 02:00 Drug: Solu-CORTEF IVP 100 mg Route: IVP; Site: right antecubital; kd3 05:31 Follow up: Response: No adverse reaction kd3 02:00 Drug: NS 0.9% IV 1000 ml Route: IV; Rate: 1 bolus; Site: right antecubital; kd3 05:31 Follow up: IV Status: Completed infusion kd3 02:00 Drug: Meclizine PO 25 mg Route: PO; kd3 05:30 Follow up: Response: No adverse reaction kd3 03:25 Drug: Calcium Gluconate IVPB 1 grams Route: IVPB; Infused Over: 60 mins; Site: right kd3 antecubital; 05:30 Follow up: IV Status: Completed infusion kd3 03:25 Drug: Potassium PO Effervescent Tablet 50 mEq Route: PO; kd3 05:30 Follow up: Response: No adverse reaction kd3 05:30 Not Given (Patient Refused): fentaNYL (PF) IVP 25 mcg IVP once kd3 Disposition: 05:13 Co-signature as Attending Physician, Ben Navarro MD I agree with the assessment sp4 and plan of care. I reviewed the patient's care provided by the Advanced Practice Provider and agree with the diagnosis and treatment plan. Disposition Summary: 09/24/22 05:14 Discharge Ordered Location: Home sp4 Problem: new sp4 Symptoms: have improved sp4 Condition: Stable sp4 Diagnosis - Acute viral illness, acute COVID-19, dizziness, fever. Postoperative abdominal painsp4 Followup: sp4 - With: Private Physician - When: 7 - 10 days - Reason: Recheck today's complaints Discharge Instructions: - Discharge Summary Sheet sp4 - COVID-19 sp4 Forms: - Family Work Release vc1 - Patient Portal Instructions sp4 Prescriptions: - Paxlovid 300 mg (150 mg x 2)-100 mg Oral Tablet, Dose Pack - take 1 dose pack by ORAL route as directed on dose pack take TWO 150 mg tablets sp4 of nirmatrelvir with ONE 100 mg tablet of ritonavir twice daily for 5 days; 1 Pack; Refills: 0, Product Selection Permitted - dextromethorphan HBr 15 mg/5 mL Oral liquid - take 10 milliliter by ORAL route every 8 hours PRN cough; 120 milliliter; sp4 Refills: 0, Product Selection Permitted - ondansetron 4 mg Oral Tablet,disintegrating - take 1 tablet by ORAL route every 6 hours for 3 days PRN nausea; 30 tablet; sp4 Refills: 0, Product Selection Permitted - Ibuprofen 600 mg Oral Tablet - take 1 tablet by ORAL route every 6 hours As needed take with food; 30 tablet; sp4 Refills: 0, Product Selection Permitted Signatures: Dispatcher [employer] EDMS Shabbir Silva PA PA cp Doucette, Kyli, RN RN kd3 Ely Barry RN RN vc1 Ben Navarro MD MD sp4 Corrections: (The following items were deleted from the chart) 02:24 01:15 Patient is a 41-year-old female with past medical history significant for cp Williams's disease, bipolar disorder, schizophrenia, depression and chronic pain. Patient presents to the emergency department with reported abdominal pain, dizziness. Patient reports having partial hysterectomy performed. cp
--- NOTE | 2022-09-24 05:15 | ER ---
Nurse's Notes [facility] Name: Lavinia Jarrett Age: 41 yrs Sex: Female : 1980 Arrival Date: 09/24/2022 Time: 00:43 Bed 5 Private MD: Diagnosis: Acute viral illness, acute COVID-19, dizziness, fever. Postoperative abdominal pain Presentation: 09/24 01:11 Chief complaint: Patient states: "I had a partial hysterectomy on the on July and vc1 since then it is not healing right. I have been on bed rest for the last month. The stress has caused me to go into Addisonian's crisis. I keep blacking out. Everything went dark and I almost blacked out about 30-45 minutes ago.". Coronavirus screen: Vaccine status: Patient reports receiving the 2nd dose of the covid vaccine. plus 2 Pfizer. 01:11 Method Of Arrival: Wheelchair vc1 01:13 Ebola Screen: Patient negative for fever greater than or equal to 101.5 degrees vc1 Fahrenheit, and additional compatible Ebola Virus Disease symptoms Patient denies exposure to infectious person. Patient denies travel to an Ebola-affected area in the 21 days before illness onset. No symptoms or risks identified at this time. Initial Sepsis Screen: Does the patient meet any 2 criteria? No. Patient's initial sepsis screen is negative. Does the patient have a suspected source of infection? No. Patient's initial sepsis screen is negative. Risk Assessment: Do you want to hurt yourself or someone else? Patient reports no desire to harm self or others. Onset of symptoms is unknown. 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 - Social history:: Smoking status: Patient reports the use of cigarette tobacco products, smokes one pack cigarettes per day. Screenin:16 [facility] ED Fall Risk Assessment (Adult) History of falling in the last 3 months, vc1 including since admission No falls in past 3 months (0 pts) Confusion or Disorientation No (0 pts) Intoxicated or Sedated No (0 pts) Impaired Gait No (0 pts) Mobility Assist Device Used No (0 pt) Altered Elimination No (0 pt) Score/Fall Risk Level 0 - 2 = Low Risk Oriented to surroundings, Maintained a safe environment, Educated pt \\T\\ family on fall prevention, incl call for assistance when getting out of bed. Abuse screen: Denies threats or abuse. Nutritional screening: No deficits noted. Tuberculosis screening: No symptoms or risk factors identified. Assessment: 01:57 General: Appears uncomfortable, Behavior is calm, cooperative. kd3 01:58 Pain: Complains of pain in abdomen. Neuro: Level of Consciousness is awake, alert, kd3 obeys commands, Oriented to person, place, time, situation. Cardiovascular: Patient's skin is warm and dry. Respiratory: Airway is patent Trachea midline Respiratory effort is even, unlabored, Respiratory pattern is regular, symmetrical. 01:59 Cardiovascular: Rhythm is sinus bradycardia. kd3 Vital Signs: 01:13 BP 103 / 61; Pulse 71; Resp 14; Temp 97; Pulse Ox 100% ; Weight 111.58 kg; Height 5 ft. vc1 5 in. ; Pain 10/10; 02:00 BP 100 / 63; Pulse 52; Resp 17; Pulse Ox 100% on R/A; kd3 02:08 BP 139 / 84; Pulse 50; Resp 18; Pulse Ox 100% on R/A; kd3 02:22 BP 167 / 95; Pulse 46; Resp 19; Pulse Ox 100% on R/A; kd3 04:26 Pulse 51; Resp 16; Pulse Ox 97% on R/A; kd3 04:27 BP 155 / 98; kd3 05:31 BP 128 / 83; Pulse 49; Resp 19; Pulse Ox 99% on R/A; kd3 01:13 Body Mass Index 40.94 (111.58 kg, 165.1 cm) vc1 01:13 Pain Scale: Adult vc1 ED Course: 00:45 Patient arrived in ED. jj6 00:54 Shabbir Silva PA is PHCP. cp 00:54 eBn Navarro MD is Attending Physician. cp 00:55 Lesvia Shirley, RN is Primary Nurse. kd3 01:15 Triage completed. vc1 01:16 Arm band placed on right wrist. vc1 01:17 Patient has correct armband on for positive identification. Bed in low position. Call vc1 light in reach. Pulse ox on. NIBP on. 01:31 Urine Microscopic Only Sent. vc1 01:42 Magnesium Sent. vc1 01:42 LFT's Sent. vc1 01:42 CBC with Diff Sent. vc1 01:42 Basic Metabolic Panel Sent. vc1 01:42 COVID-19 SARS RT PCR Sent. vc1 01:42 Influenza Screen (a \\T\\ B) Sent. vc1 02:07 XRAY Chest (1 view) In Process Unspecified. EDMS 03:05 CT Head Brain wo Cont In Process Unspecified. EDMS 03:05 CT Abd/Pelvis - IV Contrast Only In Process Unspecified. EDMS 05:31 No provider procedures requiring assistance completed. IV discontinued, intact, kd3 bleeding controlled, No redness/swelling at site. Pressure dressing applied. 05:32 Provided Education on: COVID - 19 . kd3 Administered Medications: 01:59 Drug: Ondansetron IVP 4 mg Route: IVP; Site: right antecubital; kd3 05:30 Follow up: Response: No adverse reaction; Nausea is decreased kd3 01:59 Drug: fentaNYL (PF) IVP 25 mcg Route: IVP; Site: right antecubital; kd3 05:30 Follow up: Response: No adverse reaction; Pain is decreased kd3 02:00 Drug: Solu-CORTEF IVP 100 mg Route: IVP; Site: right antecubital; kd3 05:31 Follow up: Response: No adverse reaction kd3 02:00 Drug: NS 0.9% IV 1000 ml Route: IV; Rate: 1 bolus; Site: right antecubital; kd3 05:31 Follow up: IV Status: Completed infusion kd3 02:00 Drug: Meclizine PO 25 mg Route: PO; kd3 05:30 Follow up: Response: No adverse reaction kd3 03:25 Drug: Calcium Gluconate IVPB 1 grams Route: IVPB; Infused Over: 60 mins; Site: right kd3 antecubital; 05:30 Follow up: IV Status: Completed infusion kd3 03:25 Drug: Potassium PO Effervescent Tablet 50 mEq Route: PO; kd3 05:30 Follow up: Response: No adverse reaction kd3 05:30 Not Given (Patient Refused): fentaNYL (PF) IVP 25 mcg IVP once kd3 Medication: 01:17 VIS not applicable for this client. vc1 Outcome: 05:14 Discharge ordered by . sp4 05:32 Discharged to home ambulatory. kd3 05:32 Condition: stable 05:32 Discharge instructions given to patient, family, Instructed on discharge instructions, follow up and referral plans. Demonstrated understanding of instructions, follow-up care, medications, Prescriptions given X 4. 05:32 Patient left the ED. kd3 Signatures: Dispatcher [employer] EDMS Shabbir Silva PA PA cp Jeffries, Jennifer jj6 Lesvia Shirley RN RN kd3 Ely Barry RN RN vc1 Ben Navarro MD MD sp4
[2022-09-24 05:40] VITALS: TEMP 97
[2022-09-24 05:56] VITALS: BP 128/83; O2SAT 99
--- NOTE | 2022-09-24 11:25 | RAD REPORT ---
EXAM DESCRIPTION: CT - Abdomen Pelvis W Contrast - 09/24/2022 6:31 am CLINICAL HISTORY: The patient is 41 years old and is Female; ABD PAIN TECHNIQUE: Axial computed tomography images of the abdomen and pelvis with intravenous contrast. S agittal and coronal reformatted images were created and reviewed. This CT exam was performed using one or more of the following dose reduction techniques: automated exposure control, adjustment of t he mA and/or kV according to patient size, and/or use of iterative reconstruction technique. COMPARISON: No relevant prior studies available. FINDINGS: LUNG BASES: Minimal atelectasis within the lung bases is noted. ABDOMEN: LIVER: Unremarkable. No mass. GALLBLADDER AND BILE DUCTS: Surgical clips are present in the right upper quadrant, consistent wi th previous cholecystectomy. Mild biliary dilatation is present. PANCREAS: Fatty infiltration of pancreas is noted. SPLEEN: Unremarkable. ADRENALS: Unremarkable. No mass. KIDNEYS AND URETERS: Unremarkable. The kidneys enhance symmetrically. No obstructing renal or ure teral calculus is seen. No hydronephrosis or hydroureter. No perinephric fluid or stranding. STOMACH AND BOWEL: The stomach is decompressed. The small bowel is also relatively decompressed. Minimal stool is noted throughout colon. A few scattered colonic diverticula are present without surr ounding inflammation. There is no mucosal thickening or evidence of obstruction. PELVIS: APPENDIX: The appendix is normal in caliber without surrounding inflammation. BLADDER: The bladder is nearly empty. REPRODUCTIVE: A 2 cm left ovarian cyst is present. No follow-up imaging is recommended. The uteru s and right ovary are normal. ABDOMEN and PELVIS: INTRAPERITONEAL SPACE: Unremarkable. No free air. No significant fluid collection. BONES/JOINTS: No acute fracture. SOFT TISSUES: Evidence of prior ventral wall hernia repair is noted. VASCULATURE: Unremarkable. No abdominal aortic aneurysm. LYMPH NODES: Unremarkable. No enlarged lymph nodes. IMPRESSION: 1. Mild biliary dilatation. This may be related to postcholecystectomy state. However, if clinically indicated, ultrasound and/or MRCP could be performed for further evaluation. 2. Otherwise, no acute findings on this contrasted CT of the abdomen and pelvis to explain the tova ent's symptoms. Electronically signed by: Sarah Mathis MD 09/24/2022 3:16 AM CDT Due to temporary technical issues with the PACS/Fluency reporting system, reports are being signed by the in house radiologist without review as a courtesy to ensure prompt reporting. The interpreting r adiologist is fully responsible for the content of the report.
--- NOTE | 2022-09-24 11:54 | RAD REPORT ---
EXAM DESCRIPTION: CT - Head Brain Wo Cont - 09/24/2022 6:31 am CLINICAL HISTORY: The patient is 41 years old and is Female; DIZZINESS TECHNIQUE: Axial computed tomography images of the head/brain without intravenous contrast. Sagitt al and coronal reformatted images were created and reviewed. This CT exam was performed using one o r more of the following dose reduction techniques: automated exposure control, adjustment of the mA and/or kV according to patient size, and/or use of iterative reconstruction technique. COMPARISON: No relevant prior studies available. FINDINGS: BRAIN: Unremarkable. The barbosa-white matter differentiation is preserved . No hemorrhag e. No significant white matter disease. No edema. No extra-axial fluid collections. VENTRICLES: Unremarkable. No ventriculomegaly. BONES/JOINTS: No acute fracture. SOFT TISSUES: Unremarkable. SINUSES: Unremarkable as visualized. No acute sinusitis. MASTOID AIR CELLS: Unremarkable as visualized. No mastoid effusion. ORBITS: Unremarkable as visualized. IMPRESSION: No acute intracranial findings. Electronically signed by: Sarah Mathis MD 09/24/2022 3:14 AM CDT Due to temporary technical issues with the PACS/Fluency reporting system, reports are being signed by the in house radiologist without review as a courtesy to ensure prompt reporting. The interpreting r adiologist is fully responsible for the content of the report.
--- NOTE | 2022-09-24 12:10 | RAD REPORT ---
EXAM DESCRIPTION: RAD - Chest Single View - 09/24/2022 2:05 am CLINICAL HISTORY: The patient is 41 years old and is Female; COUGH TECHNIQUE: Frontal view of the chest. COMPARISON: No relevant prior studies available. FINDINGS: Lungs: Unremarkable. No consolidation. Pleural space: Unremarkable. No pneumothorax. Heart: Unremarkable. Mediastinum: Unremarkable. Bones/joints: Unremarkable. IMPRESSION: No acute findings in the chest. Electronically signed by: Ray Zaidi MD 09/24/2022 2:13 AM CDT Due to temporary technical issues with the PACS/Fluency reporting system, reports are being signed by the in house radiologist without review as a courtesy to ensure prompt reporting. The interpreting r adiologist is fully responsible for the content of the report.
--- NOTE | 2022-09-24 18:50 | EKG ---
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
== END 2022-09-24 05:32 | disposition home or self-care (01) ==
LOC: ER 00:43
DX: U07.1 COVID-19 (principal); B34.9 Viral infection, unspecified; R42 Dizziness and giddiness; G89.18 Other acute postprocedural pain; F17.210 Nicotine dependence, cigarettes, uncomplicated; Z91.040 Latex allergy status; Z91.048 Other nonmedicinal substance allergy status
CPT/HCPCS: 96365; 96361; 93005; 85025; 80048; 36415; 83735; 80076; 81015; 87635; 87804 ×2; 70450; 74177; 71045; 96375; 99284; 96366; Q9967; J8597; J0612; J3010; J1720; J2405; J7030

== ENCOUNTER → 2023-03-04 | Emergency (ER) | payer OTHER ==
--- OUTSIDE RECORDS SUMMARY | 2023-03-04 19:45 | XMS REPORT | Continuity of Care Document ---
Author Name Unknown Address [address] [facility] [place] [address] [facility] thconnect Address [address] [facility] [address] [place] [address] Care Team Providers Care Senior Cobol Developer Name Role Phone Cinda Briceno Attending Clinician Unavailable Angelica VASQUEZ, Chema Bernstein Attending Clinician Venessa Felix MD Attending Clinician Zully VASQUEZ, Nicole Hsieh Attending Clinician Unavai lable Problems Condition Name Condition Details Condition Category Status Onset Date Resolution Date Last Treatment Date Treating Clinician Comments Source Migraine without status migrainosu s, not intractabl e, unspecifie d migraine type Migraine without status migrainosu s, not intractabl e, unspecifie d migraine type Problem Active [facility] Obstructiv e sleep apnea Obstructiv e sleep apnea Problem Active [facility] Gallstone Gallstone Problem Active [facility] Fibromyalg ia Fibromyalg ia Problem Active [facility] Chronic pain syndrome Chronic pain syndrome Problem Active [facility] Muscle weakness Muscle weakness Problem Active [facility] Insomnia, unspecifie d type Insomnia, unspecifie d type Problem Active [facility] Bipolar disorder Bipolar disorder Problem Active [facility] Hypothyroi dism, unspecifie d type Hypothyroi dism, unspecifie d type Problem Active [facility] Depression with anxiety Depression with anxiety Problem Active [facility] Foot pain Foot pain Problem Active [facility] CPAP (continuou s positive airway pressure) dependence CPAP (continuou s positive airway pressure) dependence Problem Active [facility] Diverticul osis of intestine without bleeding, unspecifie d intestinal tract location Diverticul osis of intestine without bleeding, unspecifie d intestinal tract location Problem Active [facility] Abdominal pain, unspecifie d abdominal location Abdominal pain, unspecifie d abdominal location Problem Active [facility] Irritable bowel syndrome with constipati on Irritable bowel syndrome with constipati on Problem Active [facility] Gastroesop hageal reflux disease, esophagiti s presence not specified Gastroesop hageal reflux disease, esophagiti s presence not specified Problem Active [facility] Medications Ordered Medication Name Filled Medication Name Start Date Stop Date Current Medication? Ordering Clinician Indication Dosage Frequency Signature (SIG) Comments Components Source Movantik Movantik 04-22 00:00: 00 08-20 00:00 :00 No Cinda Millender 1 tablet in the morning [facility] Pantoprazol e Sodium Pantoprazol e Sodium 10-25 00:00: 00 Yes Cinda Millender 1 tablet [facility] Chlordiazep oxide-Clidi nium Chlordiazep oxide-Clidi nium 10-25 00:00: 00 08-20 00:00 :00 No Cinda Millender 1 capsule [facility] Neurontin Neurontin Yes Cinda Millender 1 capsule [facility] Amitriptyli ne HCl Amitriptyli ne HCl Yes Cinda Millender 1 tablet [facility] Topamax Topamax Yes Cinda Millender 1 tablet [facility] Zofran Zofran Yes Cinda Millender 1 tablet [facility] Ultram Ultram Yes Cinda Millender 1 tablet as needed [facility] Lyrica Lyrica Yes Cinda Millender 1 capsule [facility] Robaxin Robaxin Yes Cinda Millender 1.5 tablets [facility] Trazodone HCl Trazodone HCl Yes Cinda Millender 1 tablet at bedtime as needed [facility] Protonix Protonix Yes Cinda Millender 1 tablet [facility] Savella Savella Yes Cinda Millender 1 tablet [facility] Synthroid Synthroid Yes Cinda Millender 1 tablet on an empty stomach in the morning [facility] Imitrex Imitrex Yes Cinda Millender 1 tablet as needed [facility] Citalopram Hydrobromid e Citalopram Hydrobromid e Yes Cinda Millender 1 tablet [facility] Clonazepam Clonazepam Yes Cinda Millender 1 tablet [facility] Cyclobenzap rine HCl Cyclobenzap rine HCl Yes Cinda Millender 1 tablet as needed [facility] Furosemide Furosemide Yes Cinda Millender 1 tablet as needed for leg swelling [facility] Effexor XR Effexor XR Yes Cinda Millender 1 capsule with food [facility] Encounters Start Date/Time End Date/Time Encounter Type Admission Type Attending Clinicians Care Facility Care Department Encounter ID Source 2021-03-22 12:08:59 Outpatient Cinda Briceno [facility] [id number] [facility] 2021-03-22 12:08:27 Outpatient Cinda Briceno [facility] [id number] [facility] 2021-03-22 11:07:35 Outpatient Cinda Briceno [facility] [id number] [facility] 2019-12-28 00:00:00 2019-12-28 00:00:00 Refill Chema Doming[facility] [id number] 2019-07-24 08:17:11 2019-07-24 11:47:51 Telemedici ne Visit Chema Dominguez [facility] [id number] 220 [id number] 2019-07-10 00:00:00 2019-07-10 00:00:00 Refill Felix, [facility] [id number] 2019-05-20 08:37:33 2019-05-20 13:26:38 Telemedici ne Visit [facility] [id number] 220 [id number] 2019-05-20 00:00:00 2019-05-20 00:00:00 Telephone [facility] [id number] [id number] 220 [id number] 2019-05-17 00:00:00 2019-05-17 00:00:00 Refill [facility] [id number] [id number] [id number] 2019-05-17 00:00:00 2019-05-17 00:00:[address] [facility] [id number] [id number] 220 [id number] 2019-05-15 00:00:00 2019-05-15 00:00:00 Refill [facility] [id number] [id number] [id number] 2019-04-28 00:00:00 2019-04-28 00:00:00 Refill Zully Nicolekaryn Hsieh [facility] [id number] [id number] [id number] [id number] 2019-04-24 00:00:00 2019-04-24 00:00:[facility] [id number] [id number] [id number] 2019-04-12 21:42:00 2019-04-12 21:42:00 Outpatient [facility] [id number] [facility] 2019-04-09 10:45:00 2019-04-09 10:45:00 Outpatient [facility] [id number] [facility] 2019-04-03 00:00:00 2019-04-03 00:00:00 Refill [facility] [id number] [id number] [id number] 2018-10-30 00:00:00 2018-10-30 00:00:00 Telephone [facility] [id number] [id number] [id number] 2018-09-19 00:00:00 2018-09-19 00:00:[address] [facility] [id number] [id number] 2018-08-06 11:09:00 2018-08-06 11:09:00 [facility] [id number] [facility] 2018-04-23 01:12:00 2018-04-23 01:12:00 [facility] [id number] 2018-04-22 16:00:00 2018-04-22 16:00:00 [facility] [id number] [facility] 2017-10-29 09:06:00 2017-10-29 09:06:00 [facility] [id number] [facility] 2017-10-25 23:08:00 2017-10-25 23:08:00 [facility] [id number] [facility] 2017-10-25 15:00:00 2017-10-25 15:00:00 [facility] [id number] [facility]
--- NOTE | 2023-03-04 21:10 | EDPHYS ---
Physician Documentation [facility] Name: Lavinia Jarrett Age: 42 yrs Sex: Female : 1980 Arrival Date: 03/04/2023 Time: 19:41 Bed IW10 Private MD: ED Physician Ben Navarro HPI: 03/04 20:10 This 42 yrs old Female presents to ER via Wheelchair with complaints of sp4 Nausea, Dizziness, Fall Injury. 21:08 There is a 42-year-old female who left from the lobby prior to being seen. . 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 - Social history:: Smoking status: unknown. Vital Signs: 19:55 BP 124 / 73; Pulse 71; Resp 16; Temp 98; Pulse Ox 100% ; Weight 104.33 kg; Height 5 ft. bp 5 in. ; 19:55 Body Mass Index 38.27 (104.33 kg, 165.1 cm) bp MDM: 20:11 Patient medically screened. sp4 21:10 ED course: Left prior to MD evaluation . sp4 Administered Medications: No medications were administered Disposition: 21:10 Chart complete. 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
--- NOTE | 2023-03-04 21:10 | ER ---
Nurse's Notes [facility] Name: Lavinia Jarrett Age: 42 yrs Sex: Female : 1980 Arrival Date: 03/04/2023 Time: 19:41 Bed IW10 Private MD: Diagnosis: Dizziness and giddiness Presentation: 03/04 19:55 Chief complaint: Patient states: "I'M HAVING AN JACKY'S CRISIS. I'M MISERABLE.". bp Coronavirus screen: At this time, the client does not indicate any symptoms associated with coronavirus-19. Ebola Screen: No symptoms or risks identified at this time. Initial Sepsis Screen: Does the patient meet any 2 criteria? No. Patient's initial sepsis screen is negative. Does the patient have a suspected source of infection? No. Patient's initial sepsis screen is negative. Risk Assessment: Do you want to hurt yourself or someone else? Patient reports no desire to harm self or others. Onset of symptoms is unknown. 19:55 Method Of Arrival: Wheelchair bp 19:55 Acuity: KIKA 3 bp Triage Assessment: 19:58 General: Appears in no apparent distress. Behavior is cooperative, appropriate for age, bp anxious. Pain: Complains of pain in GENERAL MALAISE. GI: Reports nausea. 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 - Social history:: Smoking status: unknown. Assessment: 21:00 Reassessment: patient called from lobby, no response. pf1 Vital Signs: 19:55 BP 124 / 73; Pulse 71; Resp 16; Temp 98; Pulse Ox 100% ; Weight 104.33 kg; Height 5 ft. bp 5 in. ; 19:55 Body Mass Index 38.27 (104.33 kg, 165.1 cm) bp ED Course: 19:43 Patient arrived in ED. [id number] 19:58 Triage completed. bp 19:58 Arm band placed on. bp 20:10 Ben Navarro MD is Attending Physician. sp4 Administered Medications: No medications were administered Outcome: :30 Eloped from waiting room, before seeing physician pf1 : unknown 21:52 Patient left the ED. pf1 Signatures: Joseph Muse, RN RN Michelle Cornejo6 Tejal Ernandez RN RN pf1 Ben Navarro MD MD sp4
[2023-03-05 01:50] VITALS: BP 124/73; TEMP 98; O2SAT 100
== END ==
LOC: ER 19:41
DX: Z53.21 Procedure and treatment not carried out due to patient leaving prior to being seen by health care provider (principal)
CPT/HCPCS: 99281

== ENCOUNTER 2023-06-11 12:44 | Emergency (ER) | payer OTHER ==
--- OUTSIDE RECORDS SUMMARY | 2023-06-11 12:54 | XMS REPORT | Continuity of Care Document ---
Author Name Unknown Address [address] [facility] [address] [place] [address] [facility] thconnect Address [address] [facility] 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 Name Role Phone FAYE NAPOLES Primary Care Physician Unavailab Cinda Figueroa Attending Clinician Unavailable BROOKLYN HARTMAN Attending Clinician BROOKLYN Flores Attending Clinician PERCY Elizondo Attending Clinician Unavailable UNKNOWN, ATTENDING Attending Clinician Unavailab FAYE Wallace Attending Clinician Unavailable Faye Rothman Attending Clinician [phone] Percy Andrade MD Attending Clinician [phone] Doctor Unassigned, [place] Attending Clinician U navailable LANIE LOPEZ Attending Clinician Unavailable LANIE LOPEZ Attending Clinician Unavailable KIZZY MACKEY Attending Clinician Unavail able KIZZY MACKEY Attending Clinician Unavail able Lab, Ang - Db Attending Clinician Unavailable TEJAL SULLIVAN Attending Clinician Unavailable Tejal Sullivan NP Attending Clinician [phone] Jose Bowen MD Attending Clinician [phone] EMILY GIL Attending Clinician Unavailable Emily Jesus Attending Clinician [phone] Irwin VASQUEZ, Marco Attending Clinician [phone] MARCO GAYLE Attending Clinician Unavailable MOO PARK Attending Clinician Unavailable Moo Samayoa Attending Clinician [phone] Jacki PARR, Pearl Herrera Attending Clinician UnaARIES Spaulding Attending Clinician Unavailable Chema Dominguez MD Attending Clinician [phone] DEBRA IRVIN Attending Clinician Unavailable Nancy Gutierrez Attending Clinician [phone] Debra Irvin MD Attending Clinician [phone] FIONA FELIX Attending Clinician Unavailable JOSE BOWEN Attending Clinician Unavailable Pob, [facility] Main Attending Clinician Unavailamna Leigh PA-C, Aries Attending Clinician [phone] NANCY CANNON Attending Clinician Unavailable CHEMA DOMINGUEZ Attending Clinician UnavailJosse CUETO, Maribell Attending Clinician [phone] Senia Esparza DO Attending Clinician [phone] Fiona Felix MD Attending Clinician [phone] Zully VASQUEZ, Nicole Hsieh Attending Clinician FAYE Kahn Admitting Clinician Unavailable TEJAL SULLIVAN Admitting Clinician Unavailable BROOKLYN HARTMAN Admitting Clinician MOO Arthur Admitting Clinician Unavailable Payers Payer Name Policy Type Policy Number Effective Date Expirati on Date Source [facility] [id number] 2016 00:00:00 Problems Condition Name Condition Details Condition Category Status Onset Date Resolution Date Last Treatment Date Treating Clinician Comments Source Vitiligo Vitiligo Disease Active 2022-02 00:00: 00 [facility] Eczema, unspecifie d type Eczema, unspecifie d type Disease Active 2022-02 00:00: 00 [facility] Status post hysterecto my Status post hysterecto my Disease Active 09-04 00:00: 00 [facility] Hematoma Hematoma Disease Active 09-04 00:00: 00 [facility] Bipolar disorder Bipolar disorder Disease Active 08-30 00:00: 00 [facility] CPAP (continuou s positive airway pressure) dependence CPAP (continuou s positive airway pressure) dependence Disease Active 08-30 00:00: 00 [facility] Diverticul osis of intestine without bleeding, unspecifie d intestinal tract location Diverticul osis of intestine without bleeding, unspecifie d intestinal tract location Disease Active 08-30 00:00: 00 [facility] Gastroesop hageal reflux disease Gastroesop hageal reflux disease Disease Active 08-30 00:00: 00 [facility] History of excision of intestinal structure History of excision of intestinal structure Disease Active 08-30 00:00: 00 [facility] Insomnia, unspecifie d type Insomnia, unspecifie d type Disease Active 08-30 00:00: 00 [facility] Migraine without status migrainosu s, not intractabl e, unspecifie d migraine type Migraine without status migrainosu s, not intractabl e, unspecifie d migraine type Disease Active 08-30 00:00: 00 [facility] Mixed anxiety and depressive disorder Mixed anxiety and depressive disorder Disease Active 08-30 00:00: 00 [facility] Obstructiv e sleep apnea Obstructiv e sleep apnea Disease Active 08-30 00:00: 00 [facility] Graves' disease Graves' disease Disease Active 08-02 00:00: 00 [facility] Abdominal pain, right lower quadrant Abdominal pain, right lower quadrant Disease Active 08-02 00:00: 00 Overview: Formattin g of this note might be different from the original. Added automatic ally from request for surgery [id number] [facility] Right ovarian cyst Right ovarian cyst Disease Active 08-02 00:00: 00 Overview: Formattin g of this note might be different from the original. 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 Active 05-23 00:00: 00 [facility] Emmonak disease Emmonak disease Disease Active 03-31 00:00: 00 [facility] BV (bacterial vaginosis) BV (bacterial vaginosis) Disease Active 03-13 00:00: 00 [facility] Hydrosalpi nx Hydrosalpi nx Disease Active 03-09 00:00: 00 [facility] Cyst of maxillary sinus Cyst of maxillary sinus Disease Active 03-09 00:00: 00 [facility] Female infertilit y of unspecifie d origin Female infertilit y of unspecifie d origin Disease Active 03-09 00:00: 00 [facility] Irritable bowel syndrome with both constipati on and diarrhea Irritable bowel syndrome with both constipati on and diarrhea Disease Active 03-09 00:00: 00 [facility] Fibromyalg ia Fibromyalg ia Disease Active 2015-02 00:00: 00 [facility] Pain in joint, multiple sites Pain in joint, multiple sites Disease Active 2015-02 00:00: 00 [facility] History of adrenal insufficie ncy History of adrenal insufficie ncy Disease Active 2015-02 00:00: 00 [facility] Chronic fatigue Chronic fatigue Disease Active 2015-02 00:00: 00 [facility] Morbid obesity with body mass index of 40.0-49.9 Morbid obesity with body mass index of 40.0-49.9 Disease Active 2015-02 00:00: 00 [facility] 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 Disease Active 2015-02 00:00: 00 [facility] 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 Utility [facility] Migraine without status migrainosu s, not intractabl e, unspecifie d migraine type Migraine without status migrainosu s, not intractabl e, unspecifie d migraine type Problem Active [facility] Obstructiv e sleep apnea Obstructiv e sleep apnea Problem Active [facility] Gallstone Gallstone Problem Active Com [facility] Fibromyalg ia Fibromyalg ia Problem Active [facility] Chronic pain syndrome Chronic pain syndrome Problem Active [facility] Muscle weakness Muscle weakness Problem Active [facility] Insomnia, unspecifie d type Insomnia, unspecifie d type Problem Active [facility] Bipolar disorder Bipolar disorder Problem Active [facility] Hypothyroi dism, unspecifie d type Hypothyroi dism, unspecifie d type Problem Active [facility] Depression with anxiety Depression with anxiety Problem Active [facility] Foot pain Foot pain Problem Active Com [facility] CPAP (continuou s positive airway pressure) dependence CPAP (continuou s positive airway pressure) dependence Problem Active [facility] Diverticul osis of intestine without bleeding, unspecifie d intestinal tract location Diverticul osis of intestine without bleeding, unspecifie d intestinal tract location Problem Active [facility] Abdominal pain, unspecifie d abdominal location Abdominal pain, unspecifie d abdominal location Problem Active [facility] Irritable bowel syndrome with constipati on Irritable bowel syndrome with constipati on Problem Active [facility] Gastroesop hageal reflux disease, esophagiti s presence not specified Gastroesop hageal reflux disease, esophagiti s presence not specified Problem Active [facility] Allergies, Adverse Reactions, Alerts Allergy Name Allergy Type Status Severity Reaction(s) Onset Date Inactive Date Treating Clinician Comments Source [facility] [employer] INGREDI Active High ITCHING 2015-02 0 00:00: [address] [facility] Latex Propensi ty to adverse reaction s to drug Active Itching 2015-02 0 00:00: 00 [facility] Social History Social Habit Start Date Stop Date Quantity Comments Source [facility] Alcohol intake 2023-03-19 00:00:00 2023-03-19 00:00:00 0 /d [facility] History of Social function 2022-08-20 00:00:00 2022-08-20 00:00:00 [facility] Exposure to SARS-CoV-2 (event) 2022-07-23 00:00:00 2022-08-02 07:35:00 Not sure [facility] Cigarettes smoked current (pack per day) - Reported 2022-08-02 00:00:00 2022-08-02 00:00:00 [facility] Tobacco use and exposure 2022-08-02 00:00:00 2022-08-02 00:00:00 Smokeless tobacco non-user [facility] Tobacco Comment 2022-08-02 00:00:00 2022-08-02 00:00:00 Pt smokes 1 pack a day total of 20 cigarettes daily [facility] History of tobacco use 2005-02-25 00:00:00 Cigarette Smoker [facility] Sex Assigned At 1980 00:00:00 1980 00:00:00 [facility] Smoking Status Start Date Stop Date Source Smokes tobacco daily 2022-08-02 00:00:00 [facility] Medications Ordered Medication Name Filled Medication Name Start Date Stop Date Current Medication? Ordering Clinician Indication Dosage Frequency Signature (SIG) Comments Components Source levothyroxi ne 125 mcg tablet 05-26 00:00: 00 Yes [id number] 125ug Take 1 tablet by mouth every morning. [facility] hydrocortis one 10 mg tablet 03-04 00:00: 00 Yes [id number] Take 1 tablet in the morning and half tablet at night [facility] hydrocortis one sod succ (SOLU-AMY F) 100 mg injection 03-04 00:00: 00 Yes [id number] 100mg 2 mL by Intramuscu lar route as needed (for when patient is unconsciou s). [facility] phentermine 37.5 mg capsule 03-04 00:00: 00 Yes [id number] 104 37.5mg Take 1 capsule by mouth every morning. [facility] topiramate 25 mg tablet 03-04 00:00: 00 Yes [id number] 50mg Take 2 tablets by mouth in the morning. [facility] Syringe, Disposable, 3 mL Syrg 03-04 00:00: 00 Yes [id number] Use as directed once [facility] Needle, Disp, 21 G 21 gauge x 1 1/2" Ndle 03-04 00:00: 00 Yes [id number] Use as directed [facility] topiramate 25 mg tablet 2022-02 00:00: 00 03-04 00:00 :00 No [id number] 50mg Take 2 tablets by mouth in the morning. [facility] triamcinolo ne acetonide 0.1 % ointment 2022-02 00:00: 00 Yes [id number] Apply to area(s) 2 (two) times daily. [facility] LEVOTHYROXI NE 125 mcg tablet 2022-02 00:00: 00 05-25 00:00 :00 No [id number] 125ug TAKE 1 TABLET BY MOUTH EVERY DAY IN THE MORNING [facility] rOPINIRole 1 mg tablet 2022-02 0 16:29: 29 11-29 00:00 :00 No 1mg Take 1 tablet by mouth at bedtime. [facility] proMETHazin e 25 mg tablet 2022-02 16:29: 16 11-29 00:00 :00 No Take by mouth as needed. [facility] FENTanyl 25 mcg/hr patch 2022-02 16:29: 00 11-29 00:00 :00 No 1{patch } Apply 1 Patch to skin every 72 (seventy-t wo) hours. [facility] phentermine 37.5 mg capsule 10-22 00:00: 00 03-04 00:00 :00 No [id number] 104 37.5mg Take 1 capsule by mouth every morning. [facility] topiramate 25 mg tablet 10-22 00:00: 00 01-26 00:00 :00 No [id number] 50mg Take 2 tablets by mouth in the morning. [facility] levothyroxi ne 125 mcg tablet 10-15 00:00: 00 12-02 00:00 :00 No [id number] 125ug Take 1 tablet by mouth every morning. [facility] hydrocortis one sod succ (CORTEF) injection 100 mg 09-17 08:45: 00 09-17 08:04 :00 No 100mg 100 mg, Intravenou s, ONCE, 1 dose, On Sat09/17/22 at 0345, 2 mL [facility] ondansetron (ZOFRAN (PF)) injection 4 mg 09-17 07:54: 00 09-17 07:55 :00 No 4mg 4 mg, Slow IV Push, ONCE, 1 dose, On Sat09/17/22 at 0300, MARSHALL [facility] dicyclomine (BENTYL) injection 20 mg 09-17 07:45: 00 09-17 07:47 :00 No 20mg 20 mg, Intramuscu lar, ONCE NOW, 1 dose, On Sat09/17/22 at 0245, Routine [facility] alum-mag hydroxide-s imeth (MAALOX PLUS / MAG-AL PLUS) 200-200-20 mg/5 mL suspension 30 mL 09-17 07:00: 00 09-17 07:52 :00 No 30mL 30 mL, Oral, ONCE, 1 dose, On Sat09/17/22 at 0200, MARSHALL [facility] morpHINE (2 mg/mL) injection 2 mg 09-17 07:00: 00 09-17 07:45 :00 No 2mg 2 mg, Slow IV Push, ONCE, 1 dose, On Sat09/17/22 at 0200, STAT [facility] NaCl 0.9% (NS) bolus infusion 500 mL 09-17 06:00: 00 09-17 07:55 :00 No 500mL at 999 mL/hr, 500 mL, IV Infusion, ONCE, 1 dose, On Sat09/17/22 at 0100, STAT [facility] iopamidol (ISOVUE 370-500 mL) injection 75 mL 09-17 06:00: 00 09-17 05:11 :00 No [id number] 75mL 75 mL, Intravenou s, ONCE, 1 dose, On Sat09/17/22 at 0100, Routine [facility] ketorolac (TORADOL) injection 30 mg 09-17 04:45: 00 09-17 04:47 :00 No 30mg 30 mg, Slow IV Push, ONCE, 1 dose, On Sat09/16/22 at 2345, Routine [facility] diazePAM (VALIUM) injection 5 mg 09-17 03:45: 00 09-17 04:45 :00 No 5mg 5 mg, Slow IV Push, ONCE, 1 dose, On Sat09/16/22 at 2245, STAT [facility] FENTanyl 25 mcg/hr patch 09-14 09:30: 16 Yes 1{patch } Apply 1 Patch to skin every 72 (seventy-t wo) hours. [facility] proMETHazin e 25 mg tablet 09-14 09:30: 16 Yes Take by mouth as needed. [facility] WEGOVY 0.25 mg/0.5 mL PnIj SC injection 09-06 00:00: 00 10-22 00:00 :00 No [id number] .25mg INJECT 0.25 MG UNDER THE SKIN WEEKLY. [facility] levothyroxi ne 125 mcg tablet 09-05 00:00: 00 10-15 00:00 :00 No [id number] 125ug Take 1 tablet by mouth every morning. [facility] topiramate 25 mg tablet 09-04 16:05: 41 09-04 00:00 :00 No Take by mouth daily. [facility] rizatriptan (MAXALT) 10 mg tablet 09-04 00:00: 00 Yes [id number] 10mg Take 1 tablet by mouth as needed for Migraine. May repeat in 2 hours if needed [facility] topiramate 25 mg tablet 09-04 00:00: 00 10-22 00:00 :00 No [id number] 50mg Take 2 tablets by mouth in the morning. [facility] semaglutide , weight loss, (WEGOVY) 0.25 mg/0.5 mL PnIj SC injection 09-04 00:00: 00 09-06 00:00 :00 No [id number] .25mg inject 0.25 mg under the skin weekly. [facility] proMETHazin e 25 mg tablet 08-30 16:31: 42 Yes Take by mouth as needed. [facility] HYDROCORTIS ONE 10 mg tablet 08-25 00:00: 00 03-04 00:00 :00 No [id number] TAKE 1 TABLET BY MOUTH TWICE A DAY [facility] lactated ringers IV infusion 1,000 mL 08-20 14:45: 00 08-20 18:31 :06 No 1000mL at 75 mL/hr, 1,000 mL, IV Infusion, CONTINUOUS , Starting on Sat08/20/22 at 0945, Until Sat08/20/22 at 1331, Routine, PACU [facility] HYDROcodone -acetaminop hen (NORCO) 10-325 mg tablet 1 tablet 08-20 14:42: 27 08-20 15:34 :00 No 1{tbl} 1 tablet, Oral, PRN, 1 dose, Starting on Sat08/20/22 at 0942, Until Discontinu ed, Routine, Pain (scale 7-10), DSU Recovery [facility] HYDROcodone -acetaminop hen (NORCO 5) 5-325 mg tablet 1 tablet 08-20 14:42: 27 08-20 18:31 :06 No 1{tbl} 1 tablet, Oral, PRN, 1 dose, Starting on Sat08/20/22 at 0942, Until Sat08/20/22 at 1331, Routine, Pain (scale 4-6), [facility] ibuprofen (IBU) tablet 800 mg 08-20 14:42: 27 08-20 18:31 :06 No 800mg 800 mg, Oral, PRN, 1 dose, Starting on Sat08/20/22 at 0942, Until Sat08/20/22 at 1331, Routine, Pain (scale 1-3), [facility] FENTanyl PF (SUBLIMAZE (PF)) injection 25 mcg 08-20 14:42: 14 08-20 15:23 :00 No 25ug 25 mcg, Slow IV Push, Q5MIN PRN, 4 doses, Starting on Sat08/20/22 at 0942, Until Sat08/20/22 at 1023, Routine, Pain (scale 4-6), PACU [facility] ondansetron (ZOFRAN (PF)) injection 4 mg 08-20 14:42: 14 08-20 18:31 :06 No 4mg 4 mg, Slow IV Push, PRN, 1 dose, Starting on Sat08/20/22 at 0942, Until Sat08/20/22 at 1331, Routine, Nausea and Vomiting (N/V), PACU [facility] bupivacaine (preserv free) 0.5% (SENSORCAIN E MPF) 0.5 % (5 mg/mL) injection 08-20 13:00: 00 08-20 14:46 :23 No PRN, Starting on Sat08/20/22 at 0800, Until Sat08/20/22 at 0946, Routine, Intra-op [facility] sodium chloride 0.9 % irrigation solution 08-20 13:00: 00 08-20 14:46 :23 No PRN, Starting on Sat08/20/22 at 0800, Until Sat08/20/22 at 0946, Intra-op [facility] lactated ringers IV infusion 1,000 mL 08-20 12:15: 00 08-20 18:31 :06 No 1000mL at 100 mL/hr, 1,000 mL, IV Infusion, CONTINUOUS , Starting on Sat08/20/22 at 0715, Until Sat08/20/22 at 1331, Routine, PACU [facility] CITALOPRAM HYDROBROMID E (CELEXA ORAL) 08-20 11:26: 02 Yes 40mg Take 40 mg by mouth in the morning. [facility] FENTanyl 25 mcg/hr patch 08-20 11:26: 02 Yes 1{patch } Apply 1 Patch to skin every 72 (seventy-t wo) hours. [facility] rOPINIRole 1 mg tablet 08-20 11:26: 02 Yes 1mg Take 1 tablet by mouth at bedtime. [facility] topiramate 25 mg tablet 08-20 11:26: 02 Yes Take by mouth daily. [facility] proMETHazin e 25 mg tablet 08-20 11:26: 02 Yes Take by mouth as needed. [facility] traMADoL 50 mg tablet 08-20 11:25: 59 08-20 00:00 :00 No Take by mouth as needed. [facility] OXCARBAZEPI NE (TRILEPTAL ORAL) 08-20 09:34: 50 08-20 00:00 :00 No 300mg Take 300 mg by mouth in the morning and 300 mg in the evening. [facility] ibuprofen 800 mg tablet 08-20 00:00: 00 11-29 00:00 :00 No [id number] 800mg Take 1 tablet by mouth every 6 (six) hours as needed for Pain (scale 1-3). [facility] HYDROcodone -acetaminop hen (NORCO) 7.5-325 mg per tablet 08-20 00:00: 00 08-28 04:59 :00 No [id number] 1{tbl} Take 1 tablet by mouth every 6 (six) hours as needed for Pain for up to 7 days. Indication s: acute pain [facility] HYDROcodone -acetaminop hen 5-325 mg tablet 08-20 00:00: 00 08-20 00:00 :00 No [id number] 1{tbl} Take 1 tablet by mouth every 6 (six) hours as needed for Pain (scale 4-6) or Pain (scale 7-10). Indication s: acute pain [facility] levothyroxi ne 150 mcg tablet 08-17 00:00: 00 09-05 00:00 :00 No [id number] 150ug Take 1 tablet by mouth every morning. Please wait for 30 minutes to an hour before you eat or drink anything. [facility] OXCARBAZEPI NE (TRILEPTAL ORAL) 08-09 10:09: 34 Yes 300mg Take 300 mg by mouth in the morning and 300 mg in the evening. [facility] topiramate 25 mg tablet 08-09 10:09: 34 Yes Take by mouth daily. [facility] proMETHazin e 25 mg tablet 08-09 10:09: 34 Yes Take by mouth as needed. [facility] traMADoL 50 mg tablet 08-09 10:09: 34 Yes Take by mouth as needed. [facility] CITALOPRAM HYDROBROMID E (CELEXA ORAL) 08-09 09:52: 09 Yes 40mg Take 40 mg by mouth in the morning. [facility] FENTanyl 25 mcg/hr patch 08-09 09:52: 09 Yes 1{patch } Apply 1 Patch to skin every 72 (seventy-t wo) hours. [facility] rOPINIRole 1 mg tablet 08-09 09:52: 09 Yes 1mg Take 1 tablet by mouth at bedtime. [facility] ibuprofen 800 mg tablet 08-02 00:00: 00 08-20 00:00 :00 No [id number] 800mg Take 1 tablet by mouth every 8 (eight) hours as needed for Pain (scale 4-6). [facility] ketorolac (TORADOL) injection 30 mg 07-29 04:00: 00 07-29 02:59 :00 No 30mg 30 mg, Slow IV Push, ONCE, 1 dose, On 07/28/22 at 2300, Routine [facility] morpHINE (4 mg/mL) injection 4 mg 07-29 02:00: 00 07-29 01:53 :00 No 4mg 4 mg, Slow IV Push, ONCE, 1 dose, On 07/28/22 at 2100, STAT [facility] morpHINE (4 mg/mL) injection 4 mg 07-29 00:30: 00 07-29 00:17 :00 No 4mg 4 mg, Slow IV Push, ONCE, 1 dose, On 07/28/22 at 1930, STAT [facility] iopamidol (ISOVUE 370-500 mL) injection 90 mL 07-29 00:00: 00 07-29 00:00 :00 No [id number] 90mL 90 mL, Intravenou s, ONCE, 1 dose, On 07/28/22 at 1900, Routine [facility] ondansetron (ZOFRAN (PF)) injection 4 mg 07-28 22:15: 00 07-28 22:22 :00 No 4mg 4 mg, Slow IV Push, ONCE, 1 dose, On 07/28/22 at 1715, MARSHALL [facility] morpHINE (4 mg/mL) injection 4 mg 07-28 22:15: 00 07-28 22:27 :00 No 4mg 4 mg, Slow IV Push, ONCE, 1 dose, On 07/28/22 at 1715, STAT [facility] cefpodoxime 100 mg tablet 07-28 00:00: 00 08-05 04:59 :00 No [id number] 100mg Take 1 tablet by mouth in the morning and 1 tablet in the evening. Do all this for 7 days. [facility] LATUDA 20 mg tablet 07-27 00:00: 00 Yes Take by mouth at bedtime. [facility] TOPIRAMATE 25 mg tablet 07-25 00:00: 00 09-04 00:00 :00 No [id number] TAKE 1 TABLET BY MOUTH EVERY DAY IN THE MORNING [facility] atomoxetine 60 mg capsule 07-22 00:00: 00 Yes 60mg Take 1 capsule by mouth in the morning and 1 capsule in the evening. [facility] cloNIDine 0.1 mg tablet 07-20 00:00: 00 Yes Take by mouth as needed. [facility] HYDROcodone -acetaminop hen 10-325 mg tablet 14 00:00: 00 Yes 1{tbl} Take 1 tablet by mouth in the morning and 1 tablet in the evening. [facility] phentermine 37.5 mg capsule - 00:00: 00 08-20 00:00 :00 No [id number] 37.5mg Take 1 capsule by mouth every morning. [facility] levothyroxi ne 175 mcg tablet - 00:00: 00 08-17 00:00 :00 No [id number] 175ug Take 1 tablet by mouth every morning. TAKE 1 TABLET DAILY SATURDAY THROUGH SATURDAY, AND 1/2 TABLET ON SATURDAY [facility] topiramate 25 mg tablet 02-28 00:00: 00 07-25 00:00 :00 No [id number] 25mg Take 1 tablet by mouth in the morning. [facility] phentermine 37.5 mg capsule 2021-02 0-26 00:00: 00 02-28 00:00 :00 No [id number] 37.5mg Take 1 capsule by mouth every morning. [facility] topiramate 25 mg tablet 2021-02 0-03 00:00: 00 02-28 00:00 :00 No [id number] 25mg Take 1 tablet by mouth in the morning. [facility] semaglutide , weight loss, (WEGOVY) 0.25 mg/0.5 mL PnIj SC injection 2021-02 0-03 00:00: 00 12-20 00:00 :00 No [id number] .25mg inject 0.25 mg under the skin weekly. [facility] topiramate 25 mg tablet 9-30 00:00: 00 11-27 00:00 :00 No [id number] TAKE 1 TABLET BY MOUTH EVERY DAY [facility] PHENTERMINE 37.5 mg capsule 8-28 00:00: 00 11-27 00:00 :00 No [id number] TAKE 1 CAPSULE BY MOUTH EVERY DAY IN THE MORNING [facility] levothyroxi ne 175 mcg tablet 7-30 00:00: 00 02-28 00:00 :00 No [id number] TAKE 1 TABLET DAILY SATURDAY THROUGH SATURDAY, AND 1/2 TABLET ON SATURDAY. [facility] hydrocortis one sod succ (SOLU-AMY F) 100 mg injection 6-29 00:00: 00 03-04 00:00 :00 No [id number] 100mg 2 mL by Intramuscu lar route as needed (for when patient is unconsciou s). [facility] hydrocortis one 10 mg tablet 6-29 00:00: 00 08-25 00:00 :00 No [id number] 10mg Take 1 tablet by mouth 2 (two) times daily. [facility] topiramate 25 mg tablet 6-10 00:00: 00 11-24 00:00 :00 No [id number] 25mg Take 1 tablet by mouth daily. [facility] PHENTERMINE 37.5 mg capsule 07 00:00: 00 10-22 00:00 :00 No [id number] TAKE 1 CAPSULE BY MOUTH EVERY DAY IN THE MORNING [facility] LEVOTHYROXI NE 175 mcg tablet 05-17 00:00: 00 09-23 00:00 :00 No [id number] TAKE 1 TABLET DAILY SATURDAY THROUGH SATURDAY, AND 1/2 TABLET ON SATURDAY. [facility] norethindro ne 0.35 mg tablet 2020-02 00:00: 00 08-20 00:00 :00 No [id number] 1{tbl} Take 1 tablet by mouth daily. [facility] CITALOPRAM HYDROBROMID E (CELEXA ORAL) 2020-02 13:09: 42 Yes Take by mouth daily. [facility] FENTanyl 25 mcg/hr patch 2020-02 13:09: 42 Yes 1{patch } Apply 1 Patch to skin every 72 (seventy-t wo) hours. [facility] rOPINIRole 1 mg tablet 2020-02 13:09: 42 Yes 1mg Take 1 mg by mouth at bedtime. [facility] Movantik Movantik 04-22 00:00: 00 08-20 00:00 :00 No Cinda Millender 1 tablet in the morning [facility] Pantoprazol e Sodium Pantoprazol e Sodium 10-25 00:00: 00 Yes Cinda Millender 1 tablet [facility] Chlordiazep oxide-Clidi nium Chlordiazep oxide-Clidi nium 10-25 00:00: 00 08-20 00:00 :00 No Cinda Millender 1 capsule [facility] ondansetron 4 mg disintegrat ing tablet 2016-02 00:00: 00 08-20 00:00 :00 No [facility] LYRICA 100 mg capsule 2015-02 00:00: 00 03-04 00:00 :00 No [facility] SAVELLA 50 mg tablet 2015-02 00:00: 00 03-04 00:00 :00 No 25mg Take 0.5 tablets by mouth in the morning and 0.5 tablets in the evening. [facility] Neurontin Neurontin Yes Cinda Millender 1 capsule [facility] Amitriptyli ne HCl Amitriptyli ne HCl Yes Cinda Millender 1 tablet [facility] Topamax Topamax Yes Cinda Millender 1 tablet [facility] Zofran Zofran Yes Cinda Millender 1 tablet [facility] Ultram Ultram Yes Cinda Millender 1 tablet as needed [facility] Lyrica Lyrica Yes Cinda Millender 1 capsule [facility] Robaxin Robaxin Yes Cinda Millender 1.5 tablets [facility] Trazodone HCl Trazodone HCl Yes Cinda Millender 1 tablet at bedtime as needed [facility] Protonix Protonix Yes Cinda Millender 1 tablet [facility] Savella Savella Yes Cinda Millender 1 tablet [facility] Synthroid Synthroid Yes Cinda Millender 1 tablet on an empty stomach in the morning [facility] Imitrex Imitrex Yes Cinda Millender 1 tablet as needed [facility] Citalopram Hydrobromid e Citalopram Hydrobromid e Yes Cinda Millender 1 tablet [facility] Clonazepam Clonazepam Yes Cinda Millender 1 tablet [facility] Cyclobenzap rine HCl Cyclobenzap rine HCl Yes Cinda Millender 1 tablet as needed [facility] Furosemide Furosemide Yes Cinda Millender 1 tablet as needed for leg swelling [facility] Effexor XR Effexor XR Yes Cinda Briceno 1 capsule with food [facility] Immunizations Ordered Immunization Name Filled Immunization Name Date Status Comments Source Pneumococcal 13 Conjugate, PCV13 (Prevnar 13) 2021-01-05 00:00:00 Completed [facility] TDAP 2021-01-05 00:00:00 Completed [facility] Influenza Virus Vaccine Quad IM, Preserv and ABX Free 6 MO-64 YRS 2021-01-05 00:00:00 Completed [facility] Pneumococcal 13 Conjugate, PCV13 (Prevnar 13) 2021-01-05 00:00:00 Completed [facility] TDAP 2021-01-05 00:00:00 Completed [facility] Influenza Virus Vaccine Quad IM, Preserv and ABX Free 6 MO-64 YRS 2021-01-05 00:00:00 Completed [facility] Pneumococcal 13 Conjugate, PCV13 (Prevnar 13) 2021-01-05 00:00:00 Completed [facility] TDAP 2021-01-05 00:00:00 Completed [facility] Influenza Virus Vaccine Quad IM, Preserv and ABX Free 6 MO-64 YRS 2021-01-05 00:00:00 Completed [facility] Pneumococcal 13 Conjugate, PCV13 (Prevnar 13) 2021-01-05 00:00:00 Completed [facility] TDAP 2021-01-05 00:00:00 Completed [facility] Influenza Virus Vaccine Quad IM, Preserv and ABX Free 6 MO-64 YRS 2021-01-05 00:00:00 Completed [facility] Pneumococcal 13 Conjugate, PCV13 (Prevnar 13) 2021-01-05 00:00:00 Completed [facility] TDAP 2021-01-05 00:00:00 Completed [facility] Influenza Virus Vaccine Quad IM, Preserv and ABX Free 6 MO-64 YRS 2021-01-05 00:00:00 Completed [facility] Pneumococcal 13 Conjugate, PCV13 (Prevnar 13) 2021-01-05 00:00:00 Completed [facility] TDAP 2021-01-05 00:00:00 Completed [facility] Influenza Virus Vaccine Quad IM, Preserv and ABX Free 6 MO-64 YRS 2021-01-05 00:00:00 Completed [facility] Pneumococcal 13 Conjugate, PCV13 (Prevnar 13) 2021-01-05 00:00:00 Completed [facility] TDAP 2021-01-05 00:00:00 Completed [facility] Influenza Virus Vaccine Quad IM, Preserv and ABX Free 6 MO-64 YRS 2021-01-05 00:00:00 Completed [facility] Pneumococcal 13 Conjugate, PCV13 (Prevnar 13) 2021-01-05 00:00:00 Completed [facility] TDAP 2021-01-05 00:00:00 Completed [facility] Influenza Virus Vaccine Quad IM, Preserv and ABX Free 6 MO-64 YRS 2021-01-05 00:00:00 Completed [facility] Pneumococcal 13 Conjugate, PCV13 (Prevnar 13) 2021-01-05 00:00:00 Completed [facility] TDAP 2021-01-05 00:00:00 Completed [facility] Influenza Virus Vaccine Quad IM, Preserv and ABX Free 6 MO-64 YRS 2021-01-05 00:00:00 Completed [facility] Pneumococcal 13 Conjugate, PCV13 (Prevnar 13) 2021-01-05 00:00:00 Completed [facility] TDAP 2021-01-05 00:00:00 Completed [facility] Influenza Virus Vaccine Quad IM, Preserv and ABX Free 6 MO-64 YRS 2021-01-05 00:00:00 Completed [facility] Pneumococcal 13 Conjugate, PCV13 (Prevnar 13) 2021-01-05 00:00:00 Completed [facility] TDAP 2021-01-05 00:00:00 Completed [facility] Influenza Virus Vaccine Quad IM, Preserv and ABX Free 6 MO-64 YRS 2021-01-05 00:00:00 Completed [facility] Pneumococcal 13 Conjugate, PCV13 (Prevnar 13) 2021-01-05 00:00:00 Completed [facility] TDAP 2021-01-05 00:00:00 Completed [facility] Influenza Virus Vaccine Quad IM, Preserv and ABX Free 6 MO-64 YRS 2021-01-05 00:00:00 Completed [facility] Pneumococcal 13 Conjugate, PCV13 (Prevnar 13) 2021-01-05 00:00:00 Completed [facility] TDAP 2021-01-05 00:00:00 Completed [facility] Influenza Virus Vaccine Quad IM, Preserv and ABX Free 6 MO-64 YRS 2021-01-05 00:00:00 Completed [facility] Pneumococcal 13 Conjugate, PCV13 (Prevnar 13) 2021-01-05 00:00:00 Completed [facility] TDAP 2021-01-05 00:00:00 Completed [facility] Influenza Virus Vaccine Quad IM, Preserv and ABX Free 6 MO-64 YRS 2021-01-05 00:00:00 Completed [facility] Pneumococcal 13 Conjugate, PCV13 (Prevnar 13) 2021-01-05 00:00:00 Completed [facility] TDAP 2021-01-05 00:00:00 Completed [facility] Influenza Virus Vaccine Quad IM, Preserv and ABX Free 6 MO-64 YRS 2021-01-05 00:00:00 Completed [facility] Pneumococcal 13 Conjugate, PCV13 (Prevnar 13) 2021-01-05 00:00:00 Completed [facility] TDAP 2021-01-05 00:00:00 Completed [facility] Influenza Virus Vaccine Quad IM, Preserv and ABX Free 6 MO-64 YRS 2021-01-05 00:00:00 Completed [facility] Pneumococcal 13 Conjugate, PCV13 (Prevnar 13) 2021-01-05 00:00:00 Completed [facility] TDAP 2021-01-05 00:00:00 Completed [facility] Influenza Virus Vaccine Quad IM, Preserv and ABX Free 6 MO-64 YRS 2021-01-05 00:00:00 Completed [facility] Pneumococcal 13 Conjugate, PCV13 (Prevnar 13) 2021-01-05 00:00:00 Completed [facility] TDAP 2021-01-05 00:00:00 Completed [facility] Influenza Virus Vaccine Quad IM, Preserv and ABX Free 6 MO-64 YRS 2021-01-05 00:00:00 Completed [facility] Pneumococcal 13 Conjugate, PCV13 (Prevnar 13) 2021-01-05 00:00:00 Completed [facility] TDAP 2021-01-05 00:00:00 Completed [facility] Influenza Virus Vaccine Quad IM, Preserv and ABX Free 6 MO-64 YRS 2021-01-05 00:00:00 Completed [facility] Pneumococcal 13 Conjugate, PCV13 (Prevnar 13) 2021-01-05 00:00:00 Completed [facility] TDAP 2021-01-05 00:00:00 Completed [facility] Influenza Virus Vaccine Quad IM, Preserv and ABX Free 6 MO-64 YRS 2021-01-05 00:00:00 Completed [facility] Pneumococcal 13 Conjugate, PCV13 (Prevnar 13) 2021-01-05 00:00:00 Completed [facility] TDAP 2021-01-05 00:00:00 Completed [facility] Influenza Virus Vaccine Quad IM, Preserv and ABX Free 6 MO-64 YRS 2021-01-05 00:00:00 Completed [facility] Pneumococcal 13 Conjugate, PCV13 (Prevnar 13) 2021-01-05 00:00:00 Completed [facility] TDAP 2021-01-05 00:00:00 Completed [facility] Influenza Virus Vaccine Quad IM, Preserv and ABX Free 6 MO-64 YRS 2021-01-05 00:00:00 Completed [facility] Pneumococcal 13 Conjugate, PCV13 (Prevnar 13) 2021-01-05 00:00:00 Completed [facility] TDAP 2021-01-05 00:00:00 Completed [facility] Influenza Virus Vaccine Quad IM, Preserv and ABX Free 6 MO-64 YRS 2021-01-05 00:00:00 Completed [facility] Pneumococcal 13 Conjugate, PCV13 (Prevnar 13) 2021-01-05 00:00:00 Completed [facility] TDAP 2021-01-05 00:00:00 Completed [facility] Influenza Virus Vaccine Quad IM, Preserv and ABX Free 6 MO-64 YRS 2021-01-05 00:00:00 Completed [facility] Pneumococcal 13 Conjugate, PCV13 (Prevnar 13) 2021-01-05 00:00:00 Completed [facility] TDAP 2021-01-05 00:00:00 Completed [facility] Influenza Virus Vaccine Quad IM, Preserv and ABX Free 6 MO-64 YRS 2021-01-05 00:00:00 Completed [facility] Pneumococcal 13 Conjugate, PCV13 (Prevnar 13) 2021-01-05 00:00:00 Completed [facility] TDAP 2021-01-05 00:00:00 Completed [facility] Influenza Virus Vaccine Quad IM, Preserv and ABX Free 6 MO-64 YRS 2021-01-05 00:00:00 Completed [facility] Pneumococcal 13 Conjugate, PCV13 (Prevnar 13) 2021-01-05 00:00:00 Completed [facility] TDAP 2021-01-05 00:00:00 Completed [facility] Influenza Virus Vaccine Quad IM, Preserv and ABX Free 6 MO-64 YRS 2021-01-05 00:00:00 Completed [facility] Pneumococcal 13 Conjugate, PCV13 (Prevnar 13) 2021-01-05 00:00:00 Completed [facility] TDAP 2021-01-05 00:00:00 Completed [facility] Influenza Virus Vaccine Quad IM, Preserv and ABX Free 6 MO-64 YRS 2021-01-05 00:00:00 Completed [facility] Pneumococcal 13 Conjugate, PCV13 (Prevnar 13) 2021-01-05 00:00:00 Completed [facility] TDAP 2021-01-05 00:00:00 Completed [facility] Influenza Virus Vaccine Quad IM, Preserv and ABX Free 6 MO-64 YRS 2021-01-05 00:00:00 Completed [facility] Pneumococcal 13 Conjugate, PCV13 (Prevnar 13) 2021-01-05 00:00:00 Completed [facility] TDAP 2021-01-05 00:00:00 Completed [facility] Influenza Virus Vaccine Quad IM, Preserv and ABX Free 6 MO-64 YRS 2021-01-05 00:00:00 Completed [facility] Pneumococcal 13 Conjugate, PCV13 (Prevnar 13) 2021-01-05 00:00:00 Completed [facility] TDAP 2021-01-05 00:00:00 Completed [facility] Influenza Virus Vaccine Quad IM, Preserv and ABX Free 6 MO-64 YRS 2021-01-05 00:00:00 Completed [facility] Pneumococcal 13 Conjugate, PCV13 (Prevnar 13) 2021-01-05 00:00:00 Completed [facility] TDAP 2021-01-05 00:00:00 Completed [facility] Influenza Virus Vaccine Quad IM, Preserv and ABX Free 6 MO-64 YRS 2021-01-05 00:00:00 Completed [facility] Pneumococcal 13 Conjugate, PCV13 (Prevnar 13) 2021-01-05 00:00:00 Completed [facility] TDAP 2021-01-05 00:00:00 Completed [facility] Influenza Virus Vaccine Quad IM, Preserv and ABX Free 6 MO-64 YRS 2021-01-05 00:00:00 Completed [facility] Pneumococcal 13 Conjugate, PCV13 (Prevnar 13) 2021-01-05 00:00:00 Completed [facility] TDAP 2021-01-05 00:00:00 Completed [facility] Influenza Virus Vaccine Quad IM, Preserv and ABX Free 6 MO-64 YRS 2021-01-05 00:00:00 Completed [facility] Pneumococcal 13 Conjugate, PCV13 (Prevnar 13) 2021-01-05 00:00:00 Completed [facility] TDAP 2021-01-05 00:00:00 Completed [facility] Influenza Virus Vaccine Quad IM, Preserv and ABX Free 6 MO-64 YRS 2021-01-05 00:00:00 Completed [facility] Pneumococcal 13 Conjugate, PCV13 (Prevnar 13) 2021-01-05 00:00:00 Completed [facility] TDAP 2021-01-05 00:00:00 Completed [facility] Influenza Virus Vaccine Quad IM, Preserv and ABX Free 6 MO-64 YRS 2021-01-05 00:00:00 Completed [facility] Pneumococcal 13 Conjugate, PCV13 (Prevnar 13) 2021-01-05 00:00:00 Completed [facility] TDAP 2021-01-05 00:00:00 Completed [facility] Influenza Virus Vaccine Quad IM, Preserv and ABX Free 6 MO-64 YRS 2021-01-05 00:00:00 Completed [facility] Pneumococcal 13 Conjugate, PCV13 (Prevnar 13) 2021-01-05 00:00:00 Completed [facility] TDAP 2021-01-05 00:00:00 Completed [facility] Influenza Virus Vaccine Quad IM, Preserv and ABX Free 6 MO-64 YRS 2021-01-05 00:00:00 Completed [facility] Pneumococcal 13 Conjugate, PCV13 (Prevnar 13) 2021-01-05 00:00:00 Completed [facility] TDAP 2021-01-05 00:00:00 Completed [facility] Influenza Virus Vaccine Quad IM, Preserv and ABX Free 6 MO-64 YRS 2021-01-05 00:00:00 Completed [facility] Pneumococcal 13 Conjugate, PCV13 (Prevnar 13) 2021-01-05 00:00:00 Completed [facility] TDAP 2021-01-05 00:00:00 Completed [facility] Influenza Virus Vaccine Quad IM, Preserv and ABX Free 6 MO-64 YRS 2021-01-05 00:00:00 Completed [facility] Pneumococcal 13 Conjugate, PCV13 (Prevnar 13) 2021-01-05 00:00:00 Completed [facility] TDAP 2021-01-05 00:00:00 Completed [facility] Influenza Virus Vaccine Quad IM, Preserv and ABX Free 6 MO-64 YRS 2021-01-05 00:00:00 Completed [facility] Pneumococcal 13 Conjugate, PCV13 (Prevnar 13) 2021-01-05 00:00:00 Completed [facility] TDAP 2021-01-05 00:00:00 Completed [facility] Influenza Virus Vaccine Quad IM, Preserv and ABX Free 6 MO-64 YRS 2021-01-05 00:00:00 Completed [facility] Pneumococcal 13 Conjugate, PCV13 (Prevnar 13) 2021-01-05 00:00:00 Completed [facility] TDAP 2021-01-05 00:00:00 Completed [facility] Influenza Virus Vaccine Quad IM, Preserv and ABX Free 6 MO-64 YRS 2021-01-05 00:00:00 Completed [facility] Pneumococcal 13 Conjugate, PCV13 (Prevnar 13) 2021-01-05 00:00:00 Completed [facility] TDAP 2021-01-05 00:00:00 Completed [facility] Influenza Virus Vaccine Quad IM, Preserv and ABX Free 6 MO-64 YRS 2021-01-05 00:00:00 Completed [facility] Pneumococcal 13 Conjugate, PCV13 (Prevnar 13) 2021-01-05 00:00:00 Completed [facility] TDAP 2021-01-05 00:00:00 Completed [facility] Influenza Virus Vaccine Quad IM, Preserv and ABX Free 6 MO-64 YRS 2021-01-05 00:00:00 Completed [facility] Pneumococcal 13 Conjugate, PCV13 (Prevnar 13) 2021-01-05 00:00:00 Completed [facility] TDAP 2021-01-05 00:00:00 Completed [facility] Influenza Virus Vaccine Quad IM, Preserv and ABX Free 6 MO-64 YRS 2021-01-05 00:00:00 Completed [facility] Pneumococcal 13 Conjugate, PCV13 (Prevnar 13) 2021-01-05 00:00:00 Completed [facility] TDAP 2021-01-05 00:00:00 Completed [facility] Influenza Virus Vaccine Quad IM, Preserv and ABX Free 6 MO-64 YRS 2021-01-05 00:00:00 Completed [facility] Pneumococcal 13 Conjugate, PCV13 (Prevnar 13) 2021-01-05 00:00:00 Completed [facility] TDAP 2021-01-05 00:00:00 Completed [facility] Influenza Virus Vaccine Quad IM, Preserv and ABX Free 6 MO-64 YRS 2021-01-05 00:00:00 Completed [facility] Pneumococcal 13 Conjugate, PCV13 (Prevnar 13) 2021-01-05 00:00:00 Completed [facility] TDAP 2021-01-05 00:00:00 Completed [facility] Influenza Virus Vaccine Quad IM, Preserv and ABX Free 6 MO-64 YRS 2021-01-05 00:00:00 Completed [facility] Pneumococcal 13 Conjugate, PCV13 (Prevnar 13) 2021-01-05 00:00:00 Completed [facility] TDAP 2021-01-05 00:00:00 Completed [facility] Influenza Virus Vaccine Quad IM, Preserv and ABX Free 6 MO-64 YRS 2021-01-05 00:00:00 Completed [facility] Pneumococcal 13 Conjugate, PCV13 (Prevnar 13) 2021-01-05 00:00:00 Completed [facility] TDAP 2021-01-05 00:00:00 Completed [facility] Influenza Virus Vaccine Quad IM, Preserv and ABX Free 6 MO-64 YRS 2021-01-05 00:00:00 Completed [facility] Pneumococcal 13 Conjugate, PCV13 (Prevnar 13) 2021-01-05 00:00:00 Completed [facility] TDAP 2021-01-05 00:00:00 Completed [facility] Influenza Virus Vaccine Quad IM, Preserv and ABX Free 6 MO-64 YRS 2021-01-05 00:00:00 Completed [facility] Pneumococcal 13 Conjugate, PCV13 (Prevnar 13) 2021-01-05 00:00:00 Completed [facility] TDAP 2021-01-05 00:00:00 Completed [facility] Influenza Virus Vaccine Quad IM, Preserv and ABX Free 6 MO-64 YRS 2021-01-05 00:00:00 Completed [facility] Pneumococcal 13 Conjugate, PCV13 (Prevnar 13) 2021-01-05 00:00:00 Completed [facility] TDAP 2021-01-05 00:00:00 Completed [facility] Influenza Virus Vaccine Quad IM, Preserv and ABX Free 6 MO-64 YRS 2021-01-05 00:00:00 Completed [facility] Pneumococcal 13 Conjugate, PCV13 (Prevnar 13) 2021-01-05 00:00:00 Completed [facility] TDAP 2021-01-05 00:00:00 Completed [facility] Influenza Virus Vaccine Quad IM, Preserv and ABX Free 6 MO-64 YRS 2021-01-05 00:00:00 Completed [facility] Pneumococcal 13 Conjugate, PCV13 (Prevnar 13) 2021-01-05 00:00:00 Completed [facility] TDAP 2021-01-05 00:00:00 Completed [facility] Influenza Virus Vaccine Quad IM, Preserv and ABX Free 6 MO-64 YRS 2021-01-05 00:00:00 Completed [facility] Pneumococcal 13 Conjugate, PCV13 (Prevnar 13) 2021-01-05 00:00:00 Completed [facility] TDAP 2021-01-05 00:00:00 Completed [facility] Influenza Virus Vaccine Quad IM, Preserv and ABX Free 6 MO-64 YRS 2021-01-05 00:00:00 Completed [facility] Pneumococcal 13 Conjugate, PCV13 (Prevnar 13) 2021-01-05 00:00:00 Completed [facility] TDAP 2021-01-05 00:00:00 Completed [facility] Influenza Virus Vaccine Quad IM, Preserv and ABX Free 6 MO-64 YRS 2021-01-05 00:00:00 Completed [facility] Pneumococcal 13 Conjugate, PCV13 (Prevnar 13) 2021-01-05 00:00:00 Completed [facility] TDAP 2021-01-05 00:00:00 Completed [facility] Influenza Virus Vaccine Quad IM, Preserv and ABX Free 6 MO-64 YRS 2021-01-05 00:00:00 Completed [facility] [place] Pneumococcal 13 Conjugate, PCV13 (Prevnar 13) 2021-01-05 00:00:00 Completed [facility] TDAP 2021-01-05 00:00:00 Completed [facility] Influenza Virus Vaccine Quad IM, Preserv and ABX Free 6 MO-64 YRS 2021-01-05 00:00:00 Completed [facility] [place] Pneumococcal 13 Conjugate, PCV13 (Prevnar 13) 2021-01-05 00:00:00 Completed [facility] TDAP 2021-01-05 00:00:00 Completed [facility] [place] Influenza Virus Vaccine Quad IM, Preserv and ABX Free 6 MO-64 YRS 2021-01-05 00:00:00 Completed [facility] [place] Pneumococcal 13 Conjugate, PCV13 (Prevnar 13) 2021-01-05 00:00:00 Completed [facility] TDAP 2021-01-05 00:00:00 Completed [facility] [place] Influenza Virus Vaccine Quad IM, Preserv and ABX Free 6 MO-64 YRS 2021-01-05 00:00:00 Completed [facility] [place] Pneumococcal 13 Conjugate, PCV13 (Prevnar 13) 2021-01-05 00:00:00 Completed [facility] TDAP 2021-01-05 00:00:00 Completed [facility] [place] Influenza Virus Vaccine Quad IM, Preserv and ABX Free 6 MO-64 YRS 2021-01-05 00:00:00 Completed [facility] SARS-COV-2 COVID-19 PFIZER VACCINE 2020-10-10 00:00:00 Completed [facility] [place] SARS-COV-2 COVID-19 PFIZER VACCINE 2020-10-10 00:00:00 Completed [facility] SARS-COV-2 COVID-19 PFIZER VACCINE 2020-10-10 00:00:00 Completed [facility] [place] SARS-COV-2 COVID-19 PFIZER VACCINE 2020-10-10 00:00:00 Completed [facility] [place] SARS-COV-2 COVID-19 PFIZER VACCINE 2020-10-10 00:00:00 Completed [facility] [place] SARS-COV-2 COVID-19 PFIZER VACCINE 2020-10-10 00:00:00 Completed [facility] SARS-COV-2 COVID-19 PFIZER VACCINE 2020-10-10 00:00:00 Completed [facility] [place] SARS-COV-2 COVID-19 PFIZER VACCINE 2020-10-10 00:00:00 Completed [facility] SARS-COV-2 COVID-19 PFIZER VACCINE 2020-10-10 00:00:00 Completed [facility] SARS-COV-2 COVID-19 PFIZER VACCINE 2020-10-10 00:00:00 Completed [facility] SARS-COV-2 COVID-19 PFIZER VACCINE 2020-10-10 00:00:00 Completed [facility] SARS-COV-2 COVID-19 PFIZER VACCINE 2020-10-10 00:00:00 Completed [facility] SARS-COV-2 COVID-19 PFIZER VACCINE 2020-10-10 00:00:00 Completed [facility] SARS-COV-2 COVID-19 PFIZER VACCINE 2020-10-10 00:00:00 Completed [facility] SARS-COV-2 COVID-19 PFIZER VACCINE 2020-10-10 00:00:00 Completed [facility] SARS-COV-2 COVID-19 PFIZER VACCINE 2020-10-10 00:00:00 Completed [facility] SARS-COV-2 COVID-19 PFIZER VACCINE 2020-10-10 00:00:00 Completed [facility] SARS-COV-2 COVID-19 PFIZER VACCINE 2020-10-10 00:00:00 Completed [facility] SARS-COV-2 COVID-19 PFIZER VACCINE 2020-10-10 00:00:00 Completed [facility] SARS-COV-2 COVID-19 PFIZER VACCINE 2020-10-10 00:00:00 Completed [facility] SARS-COV-2 COVID-19 PFIZER VACCINE 2020-10-10 00:00:00 Completed [facility] SARS-COV-2 COVID-19 PFIZER VACCINE 2020-10-10 00:00:00 Completed [facility] SARS-COV-2 COVID-19 PFIZER VACCINE 2020-10-10 00:00:00 Completed [facility] SARS-COV-2 COVID-19 PFIZER VACCINE 2020-10-10 00:00:00 Completed [facility] SARS-COV-2 COVID-19 PFIZER VACCINE 2020-10-10 00:00:00 Completed [facility] SARS-COV-2 COVID-19 PFIZER VACCINE 2020-10-10 00:00:00 Completed [facility] [place] SARS-COV-2 COVID-19 PFIZER VACCINE 2020-10-10 00:00:00 Completed [facility] SARS-COV-2 COVID-19 PFIZER VACCINE 2020-10-10 00:00:00 Completed [facility] SARS-COV-2 COVID-19 PFIZER VACCINE 2020-10-10 00:00:00 Completed [facility] SARS-COV-2 COVID-19 PFIZER VACCINE 2020-10-10 00:00:00 Completed [facility] SARS-COV-2 COVID-19 PFIZER VACCINE 2020-10-10 00:00:00 Completed [facility] SARS-COV-2 COVID-19 PFIZER VACCINE 2020-10-10 00:00:00 Completed [facility] SARS-COV-2 COVID-19 PFIZER VACCINE 2020-10-10 00:00:00 Completed [facility] SARS-COV-2 COVID-19 PFIZER VACCINE 2020-10-10 00:00:00 Completed [facility] SARS-COV-2 COVID-19 PFIZER VACCINE 2020-10-10 00:00:00 Completed [facility] [place] SARS-COV-2 COVID-19 PFIZER VACCINE 2020-10-10 00:00:00 Completed [facility] SARS-COV-2 COVID-19 PFIZER VACCINE 2020-10-10 00:00:00 Completed [facility] SARS-COV-2 COVID-19 PFIZER VACCINE 2020-10-10 00:00:00 Completed [facility] [place] SARS-COV-2 COVID-19 PFIZER VACCINE 2020-10-10 00:00:00 Completed [facility] SARS-COV-2 COVID-19 PFIZER VACCINE 2020-10-10 00:00:00 Completed [facility] SARS-COV-2 COVID-19 PFIZER VACCINE 2020-10-10 00:00:00 Completed [facility] SARS-COV-2 COVID-19 PFIZER VACCINE 2020-10-10 00:00:00 Completed [facility] [place] SARS-COV-2 COVID-19 PFIZER VACCINE 2020-10-10 00:00:00 Completed [facility] [place] SARS-COV-2 COVID-19 PFIZER VACCINE 2020-10-10 00:00:00 Completed [facility] SARS-COV-2 COVID-19 PFIZER VACCINE 2020-10-10 00:00:00 Completed [facility] [place] SARS-COV-2 COVID-19 PFIZER VACCINE 2020-10-10 00:00:00 Completed [facility] SARS-COV-2 COVID-19 PFIZER VACCINE 2020-06-25 00:00:00 Completed [facility] SARS-COV-2 COVID-19 PFIZER VACCINE 2020-06-25 00:00:00 Completed [facility] SARS-COV-2 COVID-19 PFIZER VACCINE 2020-06-25 00:00:00 Completed [facility] SARS-COV-2 COVID-19 PFIZER VACCINE 2020-06-25 00:00:00 Completed [facility] SARS-COV-2 COVID-19 PFIZER VACCINE 2020-06-25 00:00:00 Completed [facility] SARS-COV-2 COVID-19 PFIZER VACCINE 2020-06-25 00:00:00 Completed [facility] SARS-COV-2 COVID-19 PFIZER VACCINE 2020-06-25 00:00:00 Completed [facility] SARS-COV-2 COVID-19 PFIZER VACCINE 2020-06-25 00:00:00 Completed [facility] SARS-COV-2 COVID-19 PFIZER VACCINE 2020-06-25 00:00:00 Completed [facility] [place] SARS-COV-2 COVID-19 PFIZER VACCINE 2020-06-25 00:00:00 Completed [facility] [place] SARS-COV-2 COVID-19 PFIZER VACCINE 2020-06-25 00:00:00 Completed [facility] [place] SARS-COV-2 COVID-19 PFIZER VACCINE 2020-06-25 00:00:00 Completed [facility] [place] SARS-COV-2 COVID-19 PFIZER VACCINE 2020-06-25 00:00:00 Completed [facility] [place] SARS-COV-2 COVID-19 PFIZER VACCINE 2020-06-25 00:00:00 Completed [facility] [place] SARS-COV-2 COVID-19 PFIZER VACCINE 2020-06-25 00:00:00 Completed [facility] [place] SARS-COV-2 COVID-19 PFIZER VACCINE 2020-06-25 00:00:00 Completed [facility] [place] SARS-COV-2 COVID-19 PFIZER VACCINE 2020-06-25 00:00:00 Completed [facility] [place] SARS-COV-2 COVID-19 PFIZER VACCINE 2020-06-25 00:00:00 Completed [facility] [place] SARS-COV-2 COVID-19 PFIZER VACCINE 2020-06-25 00:00:00 Completed [facility] [place] SARS-COV-2 COVID-19 PFIZER VACCINE 2020-06-25 00:00:00 Completed [facility] [place] SARS-COV-2 COVID-19 PFIZER VACCINE 2020-06-25 00:00:00 Completed [facility] [place] SARS-COV-2 COVID-19 PFIZER VACCINE 2020-06-25 00:00:00 Completed [facility] [place] SARS-COV-2 COVID-19 PFIZER VACCINE 2020-06-25 00:00:00 Completed [facility] [place] SARS-COV-2 COVID-19 PFIZER VACCINE 2020-06-25 00:00:00 Completed [facility] [place] SARS-COV-2 COVID-19 PFIZER VACCINE 2020-06-25 00:00:00 Completed [facility] [place] SARS-COV-2 COVID-19 PFIZER VACCINE 2020-06-25 00:00:00 Completed [facility] [place] SARS-COV-2 COVID-19 PFIZER VACCINE 2020-06-25 00:00:00 Completed [facility] [place] SARS-COV-2 COVID-19 PFIZER VACCINE 2020-06-25 00:00:00 Completed [facility] SARS-COV-2 COVID-19 PFIZER VACCINE 2020-06-25 00:00:00 Completed [facility] SARS-COV-2 COVID-19 PFIZER VACCINE 2020-06-25 00:00:00 Completed [facility] [place] SARS-COV-2 COVID-19 PFIZER VACCINE 2020-06-25 00:00:00 Completed [facility] SARS-COV-2 COVID-19 PFIZER VACCINE 2020-06-25 00:00:00 Completed [facility] SARS-COV-2 COVID-19 PFIZER VACCINE 2020-06-25 00:00:00 Completed [facility] SARS-COV-2 COVID-19 PFIZER VACCINE 2020-06-25 00:00:00 Completed [facility] SARS-COV-2 COVID-19 PFIZER VACCINE 2020-06-25 00:00:00 Completed [facility] SARS-COV-2 COVID-19 PFIZER VACCINE 2020-06-25 00:00:00 Completed [facility] SARS-COV-2 COVID-19 PFIZER VACCINE 2020-06-25 00:00:00 Completed [facility] SARS-COV-2 COVID-19 PFIZER VACCINE 2020-06-25 00:00:00 Completed [facility] [place] SARS-COV-2 COVID-19 PFIZER VACCINE 2020-06-25 00:00:00 Completed [facility] SARS-COV-2 COVID-19 PFIZER VACCINE 2020-06-25 00:00:00 Completed [facility] SARS-COV-2 COVID-19 PFIZER VACCINE 2020-06-25 00:00:00 Completed [facility] [place] SARS-COV-2 COVID-19 PFIZER VACCINE 2020-06-25 00:00:00 Completed [facility] [place] SARS-COV-2 COVID-19 PFIZER VACCINE 2020-06-25 00:00:00 Completed [facility] [place] SARS-COV-2 COVID-19 PFIZER VACCINE 2020-06-25 00:00:00 Completed [facility] SARS-COV-2 COVID-19 PFIZER VACCINE 2020-06-25 00:00:00 Completed [facility] SARS-COV-2 COVID-19 PFIZER VACCINE 2020-06-25 00:00:00 Completed [facility] [place] SARS-COV-2 COVID-19 PFIZER VACCINE 2020-06-25 00:00:00 Completed [facility] SARS-COV-2 COVID-19 PFIZER VACCINE 2020-06-25 00:00:00 Completed [facility] [place] SARS-COV-2 COVID-19 PFIZER VACCINE 2020-06-25 00:00:00 Completed [facility] SARS-COV-2 COVID-19 PFIZER VACCINE 2020-06-25 00:00:00 Completed [facility] SARS-COV-2 COVID-19 PFIZER VACCINE 2020-06-25 00:00:00 Completed [facility] [place] SARS-COV-2 COVID-19 PFIZER VACCINE 2020-06-25 00:00:00 Completed [facility] [place] SARS-COV-2 COVID-19 PFIZER VACCINE 2020-06-25 00:00:00 Completed [facility] [place] SARS-COV-2 COVID-19 PFIZER VACCINE 2020-06-25 00:00:00 Completed [facility] [place] SARS-COV-2 COVID-19 PFIZER VACCINE 2020-06-25 00:00:00 Completed [facility] SARS-COV-2 COVID-19 PFIZER VACCINE 2020-06-25 00:00:00 Completed [facility] [place] SARS-COV-2 COVID-19 PFIZER VACCINE 2020-06-25 00:00:00 Completed [facility] SARS-COV-2 COVID-19 PFIZER VACCINE 2020-06-25 00:00:00 Completed [facility] [place] SARS-COV-2 COVID-19 PFIZER VACCINE 2020-06-25 00:00:00 Completed [facility] SARS-COV-2 COVID-19 PFIZER VACCINE 2020-06-25 00:00:00 Completed [facility] SARS-COV-2 COVID-19 PFIZER VACCINE 2020-06-25 00:00:00 Completed [facility] SARS-COV-2 COVID-19 PFIZER VACCINE 2020-06-25 00:00:00 Completed [facility] [place] SARS-COV-2 COVID-19 PFIZER VACCINE 2020-06-25 00:00:00 Completed [facility] SARS-COV-2 COVID-19 PFIZER VACCINE 2020-06-04 00:00:00 Completed [facility] SARS-COV-2 COVID-19 PFIZER VACCINE 2020-06-04 00:00:00 Completed [facility] SARS-COV-2 COVID-19 PFIZER VACCINE 2020-06-04 00:00:00 Completed [facility] SARS-COV-2 COVID-19 PFIZER VACCINE 2020-06-04 00:00:00 Completed [facility] SARS-COV-2 COVID-19 PFIZER VACCINE 2020-06-04 00:00:00 Completed [facility] SARS-COV-2 COVID-19 PFIZER VACCINE 2020-06-04 00:00:00 Completed [facility] SARS-COV-2 COVID-19 PFIZER VACCINE 2020-06-04 00:00:00 Completed [facility] SARS-COV-2 COVID-19 PFIZER VACCINE 2020-06-04 00:00:00 Completed [facility] SARS-COV-2 COVID-19 PFIZER VACCINE 2020-06-04 00:00:00 Completed [facility] SARS-COV-2 COVID-19 PFIZER VACCINE 2020-06-04 00:00:00 Completed [facility] SARS-COV-2 COVID-19 PFIZER VACCINE 2020-06-04 00:00:00 Completed [facility] SARS-COV-2 COVID-19 PFIZER VACCINE 2020-06-04 00:00:00 Completed [facility] SARS-COV-2 COVID-19 PFIZER VACCINE 2020-06-04 00:00:00 Completed [facility] SARS-COV-2 COVID-19 PFIZER VACCINE 2020-06-04 00:00:00 Completed [facility] SARS-COV-2 COVID-19 PFIZER VACCINE 2020-06-04 00:00:00 Completed [facility] SARS-COV-2 COVID-19 PFIZER VACCINE 2020-06-04 00:00:00 Completed [facility] SARS-COV-2 COVID-19 PFIZER VACCINE 2020-06-04 00:00:00 Completed [facility] SARS-COV-2 COVID-19 PFIZER VACCINE 2020-06-04 00:00:00 Completed [facility] SARS-COV-2 COVID-19 PFIZER VACCINE 2020-06-04 00:00:00 Completed [facility] SARS-COV-2 COVID-19 PFIZER VACCINE 2020-06-04 00:00:00 Completed [facility] [place] SARS-COV-2 COVID-19 PFIZER VACCINE 2020-06-04 00:00:00 Completed [facility] SARS-COV-2 COVID-19 PFIZER VACCINE 2020-06-04 00:00:00 Completed [facility] [place] SARS-COV-2 COVID-19 PFIZER VACCINE 2020-06-04 00:00:00 Completed [facility] SARS-COV-2 COVID-19 PFIZER VACCINE 2020-06-04 00:00:00 Completed [facility] SARS-COV-2 COVID-19 PFIZER VACCINE 2020-06-04 00:00:00 Completed [facility] [place] SARS-COV-2 COVID-19 PFIZER VACCINE 2020-06-04 00:00:00 Completed [facility] SARS-COV-2 COVID-19 PFIZER VACCINE 2020-06-04 00:00:00 Completed [facility] SARS-COV-2 COVID-19 PFIZER VACCINE 2020-06-04 00:00:00 Completed [facility] SARS-COV-2 COVID-19 PFIZER VACCINE 2020-06-04 00:00:00 Completed [facility] SARS-COV-2 COVID-19 PFIZER VACCINE 2020-06-04 00:00:00 Completed [facility] SARS-COV-2 COVID-19 PFIZER VACCINE 2020-06-04 00:00:00 Completed [facility] SARS-COV-2 COVID-19 PFIZER VACCINE 2020-06-04 00:00:00 Completed [facility] SARS-COV-2 COVID-19 PFIZER VACCINE 2020-06-04 00:00:00 Completed [facility] SARS-COV-2 COVID-19 PFIZER VACCINE 2020-06-04 00:00:00 Completed [facility] SARS-COV-2 COVID-19 PFIZER VACCINE 2020-06-04 00:00:00 Completed [facility] SARS-COV-2 COVID-19 PFIZER VACCINE 2020-06-04 00:00:00 Completed [facility] SARS-COV-2 COVID-19 PFIZER VACCINE 2020-06-04 00:00:00 Completed [facility] SARS-COV-2 COVID-19 PFIZER VACCINE 2020-06-04 00:00:00 Completed [facility] SARS-COV-2 COVID-19 PFIZER VACCINE 2020-06-04 00:00:00 Completed [facility] SARS-COV-2 COVID-19 PFIZER VACCINE 2020-06-04 00:00:00 Completed [facility] SARS-COV-2 COVID-19 PFIZER VACCINE 2020-06-04 00:00:00 Completed [facility] SARS-COV-2 COVID-19 PFIZER VACCINE 2020-06-04 00:00:00 Completed [facility] SARS-COV-2 COVID-19 PFIZER VACCINE 2020-06-04 00:00:00 Completed [facility] SARS-COV-2 COVID-19 PFIZER VACCINE 2020-06-04 00:00:00 Completed [facility] SARS-COV-2 COVID-19 PFIZER VACCINE 2020-06-04 00:00:00 Completed [facility] SARS-COV-2 COVID-19 PFIZER VACCINE 2020-06-04 00:00:00 Completed [facility] SARS-COV-2 COVID-19 PFIZER VACCINE 2020-06-04 00:00:00 Completed [facility] SARS-COV-2 COVID-19 PFIZER VACCINE 2020-06-04 00:00:00 Completed [facility] SARS-COV-2 COVID-19 PFIZER VACCINE 2020-06-04 00:00:00 Completed [facility] SARS-COV-2 COVID-19 PFIZER VACCINE 2020-06-04 00:00:00 Completed [facility] SARS-COV-2 COVID-19 PFIZER VACCINE 2020-06-04 00:00:00 Completed [facility] SARS-COV-2 COVID-19 PFIZER VACCINE 2020-06-04 00:00:00 Completed [facility] SARS-COV-2 COVID-19 PFIZER VACCINE 2020-06-04 00:00:00 Completed [facility] SARS-COV-2 COVID-19 PFIZER VACCINE 2020-06-04 00:00:00 Completed [facility] SARS-COV-2 COVID-19 PFIZER VACCINE 2020-06-04 00:00:00 Completed [facility] SARS-COV-2 COVID-19 PFIZER VACCINE 2020-06-04 00:00:00 Completed [facility] SARS-COV-2 COVID-19 PFIZER VACCINE 2020-06-04 00:00:00 Completed [facility] SARS-COV-2 COVID-19 PFIZER VACCINE 2020-06-04 00:00:00 Completed [facility] SARS-COV-2 COVID-19 PFIZER VACCINE 2020-06-04 00:00:00 Completed [facility] SARS-COV-2 COVID-19 PFIZER VACCINE 2020-06-04 00:00:00 Completed [facility] SARS-COV-2 COVID-19 PFIZER VACCINE 2020-06-04 00:00:00 Completed [facility] SARS-COV-2 COVID-19 PFIZER VACCINE 2020-06-04 00:00:00 Completed [facility] SARS-COV-2 COVID-19 PFIZER VACCINE 2020-06-04 00:00:00 Completed [facility] Influenza Virus Vaccine Quad IM, Preserv and ABX Free 6 MO-64 YRS 2019-04-09 00:00:00 Completed [facility] Influenza Virus Vaccine Quad IM, Preserv and ABX Free 6 MO-64 YRS 2019-04-09 00:00:00 Completed [facility] Influenza Virus Vaccine Quad IM, Preserv and ABX Free 6 MO-64 YRS 2019-04-09 00:00:00 Completed [facility] Influenza Virus Vaccine Quad IM, Preserv and ABX Free 6 MO-64 YRS 2019-04-09 00:00:00 Completed [facility] Influenza Virus Vaccine Quad IM, Preserv and ABX Free 6 MO-64 YRS 2019-04-09 00:00:00 Completed [facility] Influenza Virus Vaccine Quad IM, Preserv and ABX Free 6 MO-64 YRS 2019-04-09 00:00:00 Completed [facility] Influenza Virus Vaccine Quad IM, Preserv and ABX Free 6 MO-64 YRS 2019-04-09 00:00:00 Completed [facility] Influenza Virus Vaccine Quad IM, Preserv and ABX Free 6 MO-64 YRS 2019-04-09 00:00:00 Completed [facility] Influenza Virus Vaccine Quad IM, Preserv and ABX Free 6 MO-64 YRS 2019-04-09 00:00:00 Completed [facility] Influenza Virus Vaccine Quad IM, Preserv and ABX Free 6 MO-64 YRS 2019-04-09 00:00:00 Completed [facility] Influenza Virus Vaccine Quad IM, Preserv and ABX Free 6 MO-64 YRS 2019-04-09 00:00:00 Completed [facility] Influenza Virus Vaccine Quad IM, Preserv and ABX Free 6 MO-64 YRS 2019-04-09 00:00:00 Completed [facility] Influenza Virus Vaccine Quad IM, Preserv and ABX Free 6 MO-64 YRS 2019-04-09 00:00:00 Completed [facility] Influenza Virus Vaccine Quad IM, Preserv and ABX Free 6 MO-64 YRS 2019-04-09 00:00:00 Completed [facility] Influenza Virus Vaccine Quad IM, Preserv and ABX Free 6 MO-64 YRS 2019-04-09 00:00:00 Completed [facility] Influenza Virus Vaccine Quad IM, Preserv and ABX Free 6 MO-64 YRS 2019-04-09 00:00:00 Completed [facility] Influenza Virus Vaccine Quad IM, Preserv and ABX Free 6 MO-64 YRS 2019-04-09 00:00:00 Completed [facility] Influenza Virus Vaccine Quad IM, Preserv and ABX Free 6 MO-64 YRS 2019-04-09 00:00:00 Completed [facility] Influenza Virus Vaccine Quad IM, Preserv and ABX Free 6 MO-64 YRS 2019-04-09 00:00:00 Completed [facility] Influenza Virus Vaccine Quad IM, Preserv and ABX Free 6 MO-64 YRS 2019-04-09 00:00:00 Completed [facility] Influenza Virus Vaccine Quad IM, Preserv and ABX Free 6 MO-64 YRS 2019-04-09 00:00:00 Completed [facility] Influenza Virus Vaccine Quad IM, Preserv and ABX Free 6 MO-64 YRS 2019-04-09 00:00:00 Completed [facility] Influenza Virus Vaccine Quad IM, Preserv and ABX Free 6 MO-64 YRS 2019-04-09 00:00:00 Completed [facility] Influenza Virus Vaccine Quad IM, Preserv and ABX Free 6 MO-64 YRS 2019-04-09 00:00:00 Completed [facility] Influenza Virus Vaccine Quad IM, Preserv and ABX Free 6 MO-64 YRS 2019-04-09 00:00:00 Completed [facility] Influenza Virus Vaccine Quad IM, Preserv and ABX Free 6 MO-64 YRS 2019-04-09 00:00:00 Completed [facility] Influenza Virus Vaccine Quad IM, Preserv and ABX Free 6 MO-64 YRS 2019-04-09 00:00:00 Completed [facility] Influenza Virus Vaccine Quad IM, Preserv and ABX Free 6 MO-64 YRS 2019-04-09 00:00:00 Completed [facility] Influenza Virus Vaccine Quad IM, Preserv and ABX Free 6 MO-64 YRS 2019-04-09 00:00:00 Completed [facility] Influenza Virus Vaccine Quad IM, Preserv and ABX Free 6 MO-64 YRS 2019-04-09 00:00:00 Completed [facility] Influenza Virus Vaccine Quad IM, Preserv and ABX Free 6 MO-64 YRS 2019-04-09 00:00:00 Completed [facility] Influenza Virus Vaccine Quad IM, Preserv and ABX Free 6 MO-64 YRS 2019-04-09 00:00:00 Completed [facility] Influenza Virus Vaccine Quad IM, Preserv and ABX Free 6 MO-64 YRS 2019-04-09 00:00:00 Completed [facility] Influenza Virus Vaccine Quad IM, Preserv and ABX Free 6 MO-64 YRS 2019-04-09 00:00:00 Completed [facility] Influenza Virus Vaccine Quad IM, Preserv and ABX Free 6 MO-64 YRS 2019-04-09 00:00:00 Completed [facility] Influenza Virus Vaccine Quad IM, Preserv and ABX Free 6 MO-64 YRS 2019-04-09 00:00:00 Completed [facility] Influenza Virus Vaccine Quad IM, Preserv and ABX Free 6 MO-64 YRS 2019-04-09 00:00:00 Completed [facility] Influenza Virus Vaccine Quad IM, Preserv and ABX Free 6 MO-64 YRS 2019-04-09 00:00:00 Completed [facility] Influenza Virus Vaccine Quad IM, Preserv and ABX Free 6 MO-64 YRS 2019-04-09 00:00:00 Completed [facility] Influenza Virus Vaccine Quad IM, Preserv and ABX Free 6 MO-64 YRS 2019-04-09 00:00:00 Completed [facility] Influenza Virus Vaccine Quad IM, Preserv and ABX Free 6 MO-64 YRS 2019-04-09 00:00:00 Completed [facility] Influenza Virus Vaccine Quad IM, Preserv and ABX Free 6 MO-64 YRS 2019-04-09 00:00:00 Completed [facility] Influenza Virus Vaccine Quad IM, Preserv and ABX Free 6 MO-64 YRS 2019-04-09 00:00:00 Completed [facility] Influenza Virus Vaccine Quad IM, Preserv and ABX Free 6 MO-64 YRS 2019-04-09 00:00:00 Completed [facility] Influenza Virus Vaccine Quad IM, Preserv and ABX Free 6 MO-64 YRS 2019-04-09 00:00:00 Completed [facility] Flucelvax - single dose syringe Flucelvax - single dose syringe 2019-04-09 00:00:00 Completed [facility] Influenza Virus Vaccine Quad .5 mL IM 6+ MO 2018-01-14 00:00:00 Completed [facility] Influenza Virus Vaccine 2018-01-14 00:00:00 Completed [facility] Influenza Virus Vaccine Quad .5 mL IM 6+ MO 2018-01-14 00:00:00 Completed [facility] Influenza Virus Vaccine 2018-01-14 00:00:00 Completed [facility] Influenza Virus Vaccine Quad .5 mL IM 6+ MO 2018-01-14 00:00:00 Completed [facility] Influenza Virus Vaccine 2018-01-14 00:00:00 Completed [facility] Influenza Virus Vaccine Quad .5 mL IM 6+ MO 2018-01-14 00:00:00 Completed [facility] Influenza Virus Vaccine 2018-01-14 00:00:00 Completed [facility] Influenza Virus Vaccine Quad .5 mL IM 6+ MO 2018-01-14 00:00:00 Completed [facility] Influenza Virus Vaccine 2018-01-14 00:00:00 Completed [facility] Influenza Virus Vaccine Quad .5 mL IM 6+ MO 2018-01-14 00:00:00 Completed [facility] Influenza Virus Vaccine 2018-01-14 00:00:00 Completed [facility] Influenza Virus Vaccine Quad .5 mL IM 6+ MO 2018-01-14 00:00:00 Completed [facility] Influenza Virus Vaccine 2018-01-14 00:00:00 Completed [facility] Influenza Virus Vaccine Quad .5 mL IM 6+ MO 2018-01-14 00:00:00 Completed [facility] Influenza Virus Vaccine 2018-01-14 00:00:00 Completed [facility] Influenza Virus Vaccine Quad .5 mL IM 6+ MO 2018-01-14 00:00:00 Completed [facility] Influenza Virus Vaccine 2018-01-14 00:00:00 Completed [facility] Influenza Virus Vaccine Quad .5 mL IM 6+ MO 2018-01-14 00:00:00 Completed [facility] Influenza Virus Vaccine 2018-01-14 00:00:00 Completed [facility] Influenza Virus Vaccine Quad .5 mL IM 6+ MO 2018-01-14 00:00:00 Completed [facility] Influenza Virus Vaccine 2018-01-14 00:00:00 Completed [facility] Influenza Virus Vaccine Quad .5 mL IM 6+ MO 2018-01-14 00:00:00 Completed [facility] Influenza Virus Vaccine 2018-01-14 00:00:00 Completed [facility] Influenza Virus Vaccine Quad .5 mL IM 6+ MO 2018-01-14 00:00:00 Completed [facility] Influenza Virus Vaccine 2018-01-14 00:00:00 Completed [facility] Influenza Virus Vaccine Quad .5 mL IM 6+ MO 2018-01-14 00:00:00 Completed [facility] Influenza Virus Vaccine 2018-01-14 00:00:00 Completed [facility] Influenza Virus Vaccine Quad .5 mL IM 6+ MO 2018-01-14 00:00:00 Completed [facility] Influenza Virus Vaccine 2018-01-14 00:00:00 Completed [facility] Influenza Virus Vaccine Quad .5 mL IM 6+ MO 2018-01-14 00:00:00 Completed [facility] Influenza Virus Vaccine 2018-01-14 00:00:00 Completed [facility] Influenza Virus Vaccine Quad .5 mL IM 6+ MO 2018-01-14 00:00:00 Completed [facility] Influenza Virus Vaccine 2018-01-14 00:00:00 Completed [facility] Influenza Virus Vaccine Quad .5 mL IM 6+ MO 2018-01-14 00:00:00 Completed [facility] Influenza Virus Vaccine 2018-01-14 00:00:00 Completed [facility] Influenza Virus Vaccine Quad .5 mL IM 6+ MO 2018-01-14 00:00:00 Completed [facility] Influenza Virus Vaccine 2018-01-14 00:00:00 Completed [facility] Influenza Virus Vaccine Quad .5 mL IM 6+ MO 2018-01-14 00:00:00 Completed [facility] Influenza Virus Vaccine 2018-01-14 00:00:00 Completed [facility] Influenza Virus Vaccine Quad .5 mL IM 6+ MO 2018-01-14 00:00:00 Completed [facility] Influenza Virus Vaccine 2018-01-14 00:00:00 Completed [facility] Influenza Virus Vaccine Quad .5 mL IM 6+ MO 2018-01-14 00:00:00 Completed [facility] Influenza Virus Vaccine 2018-01-14 00:00:00 Completed [facility] Influenza Virus Vaccine Quad .5 mL IM 6+ MO 2018-01-14 00:00:00 Completed [facility] Influenza Virus Vaccine 2018-01-14 00:00:00 Completed [facility] Influenza Virus Vaccine Quad .5 mL IM 6+ MO 2018-01-14 00:00:00 Completed [facility] Influenza Virus Vaccine 2018-01-14 00:00:00 Completed [facility] Influenza Virus Vaccine Quad .5 mL IM 6+ MO 2018-01-14 00:00:00 Completed [facility] Influenza Virus Vaccine 2018-01-14 00:00:00 Completed [facility] Influenza Virus Vaccine Quad .5 mL IM 6+ MO 2018-01-14 00:00:00 Completed [facility] Influenza Virus Vaccine 2018-01-14 00:00:00 Completed [facility] Influenza Virus Vaccine Quad .5 mL IM 6+ MO 2018-01-14 00:00:00 Completed [facility] Influenza Virus Vaccine 2018-01-14 00:00:00 Completed [facility] Influenza Virus Vaccine Quad .5 mL IM 6+ MO 2018-01-14 00:00:00 Completed [facility] Influenza Virus Vaccine 2018-01-14 00:00:00 Completed [facility] Influenza Virus Vaccine Quad .5 mL IM 6+ MO 2018-01-14 00:00:00 Completed [facility] Influenza Virus Vaccine 2018-01-14 00:00:00 Completed [facility] Influenza Virus Vaccine Quad .5 mL IM 6+ MO 2018-01-14 00:00:00 Completed [facility] Influenza Virus Vaccine 2018-01-14 00:00:00 Completed [facility] Influenza Virus Vaccine Quad .5 mL IM 6+ MO 2018-01-14 00:00:00 Completed [facility] Influenza Virus Vaccine 2018-01-14 00:00:00 Completed [facility] Influenza Virus Vaccine Quad .5 mL IM 6+ MO 2018-01-14 00:00:00 Completed [facility] Influenza Virus Vaccine 2018-01-14 00:00:00 Completed [facility] Influenza Virus Vaccine Quad .5 mL IM 6+ MO 2018-01-14 00:00:00 Completed [facility] Influenza Virus Vaccine 2018-01-14 00:00:00 Completed [facility] Influenza Virus Vaccine Quad .5 mL IM 6+ MO 2018-01-14 00:00:00 Completed [facility] Influenza Virus Vaccine 2018-01-14 00:00:00 Completed [facility] Influenza Virus Vaccine Quad .5 mL IM 6+ MO 2018-01-14 00:00:00 Completed [facility] Influenza Virus Vaccine 2018-01-14 00:00:00 Completed [facility] Influenza Virus Vaccine Quad .5 mL IM 6+ MO 2018-01-14 00:00:00 Completed [facility] Influenza Virus Vaccine 2018-01-14 00:00:00 Completed [facility] Influenza Virus Vaccine Quad .5 mL IM 6+ MO 2018-01-14 00:00:00 Completed [facility] Influenza Virus Vaccine 2018-01-14 00:00:00 Completed [facility] Influenza Virus Vaccine Quad .5 mL IM 6+ MO 2018-01-14 00:00:00 Completed [facility] Influenza Virus Vaccine 2018-01-14 00:00:00 Completed [facility] Influenza Virus Vaccine Quad .5 mL IM 6+ MO 2018-01-14 00:00:00 Completed [facility] Influenza Virus Vaccine 2018-01-14 00:00:00 Completed [facility] Influenza Virus Vaccine Quad .5 mL IM 6+ MO 2018-01-14 00:00:00 Completed [facility] Influenza Virus Vaccine 2018-01-14 00:00:00 Completed [facility] Influenza Virus Vaccine Quad .5 mL IM 6+ MO 2018-01-14 00:00:00 Completed [facility] Influenza Virus Vaccine 2018-01-14 00:00:00 Completed [facility] Influenza Virus Vaccine Quad .5 mL IM 6+ MO 2018-01-14 00:00:00 Completed [facility] Influenza Virus Vaccine 2018-01-14 00:00:00 Completed [facility] Influenza Virus Vaccine Quad .5 mL IM 6+ MO 2018-01-14 00:00:00 Completed [facility] Influenza Virus Vaccine 2018-01-14 00:00:00 Completed [facility] Influenza Virus Vaccine Quad .5 mL IM 6+ MO 2018-01-14 00:00:00 Completed [facility] Influenza Virus Vaccine 2018-01-14 00:00:00 Completed [facility] Influenza Virus Vaccine Quad .5 mL IM 6+ MO 2018-01-14 00:00:00 Completed [facility] Influenza Virus Vaccine 2018-01-14 00:00:00 Completed [facility] Influenza Virus Vaccine Quad .5 mL IM 6+ MO 2018-01-14 00:00:00 Completed [facility] Influenza Virus Vaccine 2018-01-14 00:00:00 Completed [facility] Influenza Virus Vaccine Quad .5 mL IM 6+ MO 2018-01-14 00:00:00 Completed [facility] Influenza Virus Vaccine 2018-01-14 00:00:00 Completed [facility] Influenza Virus Vaccine Quad .5 mL IM 6+ MO 2018-01-14 00:00:00 Completed [facility] Influenza Virus Vaccine 2018-01-14 00:00:00 Completed [facility] Influenza Virus Vaccine Quad .5 mL IM 6+ MO 2018-01-14 00:00:00 Completed [facility] Influenza Virus Vaccine 2018-01-14 00:00:00 Completed [facility] Influenza Virus Vaccine Quad .5 mL IM 6+ MO 2018-01-14 00:00:00 Completed [facility] Influenza Virus Vaccine 2018-01-14 00:00:00 Completed [facility] Influenza Virus Vaccine Quad .5 mL IM 6+ MO 2018-01-14 00:00:00 Completed [facility] Influenza Virus Vaccine 2018-01-14 00:00:00 Completed [facility] Influenza Virus Vaccine Quad .5 mL IM 6+ MO 2018-01-14 00:00:00 Completed [facility] Influenza Virus Vaccine 2018-01-14 00:00:00 Completed [facility] Influenza Virus Vaccine Quad .5 mL IM 6+ MO 2018-01-14 00:00:00 Completed [facility] Influenza Virus Vaccine 2018-01-14 00:00:00 Completed [facility] Influenza Virus Vaccine Quad .5 mL IM 6+ MO 2018-01-14 00:00:00 Completed [facility] Influenza Virus Vaccine 2018-01-14 00:00:00 Completed [facility] Influenza Virus Vaccine Quad .5 mL IM 6+ MO 2018-01-14 00:00:00 Completed [facility] Influenza Virus Vaccine 2018-01-14 00:00:00 Completed [facility] Influenza Virus Vaccine Quad .5 mL IM 6+ MO 2018-01-14 00:00:00 Completed [facility] Influenza Virus Vaccine 2018-01-14 00:00:00 Completed [facility] Influenza Virus Vaccine Quad .5 mL IM 6+ MO 2018-01-14 00:00:00 Completed [facility] Influenza Virus Vaccine 2018-01-14 00:00:00 Completed [facility] Influenza Virus Vaccine Quad .5 mL IM 6+ MO 2018-01-14 00:00:00 Completed [facility] Influenza Virus Vaccine 2018-01-14 00:00:00 Completed [facility] Influenza Virus Vaccine Quad .5 mL IM 6+ MO 2018-01-14 00:00:00 Completed [facility] Influenza Virus Vaccine 2018-01-14 00:00:00 Completed [facility] Influenza Virus Vaccine Quad .5 mL IM 6+ MO 2018-01-14 00:00:00 Completed [facility] Influenza Virus Vaccine 2018-01-14 00:00:00 Completed [facility] Influenza Virus Vaccine Quad .5 mL IM 6+ MO 2018-01-14 00:00:00 Completed [facility] Influenza Virus Vaccine 2018-01-14 00:00:00 Completed [facility] Influenza Virus Vaccine Quad .5 mL IM 6+ MO 2018-01-14 00:00:00 Completed [facility] Influenza Virus Vaccine 2018-01-14 00:00:00 Completed [facility] Influenza Virus Vaccine Quad .5 mL IM 6+ MO 2018-01-14 00:00:00 Completed [facility] Influenza Virus Vaccine 2018-01-14 00:00:00 Completed [facility] Influenza Virus Vaccine Quad .5 mL IM 6+ MO (FLUZONE/FLULAVAL/F LUARIX) Unknown Completed [facility] Influenza Virus Vaccine Unknown Completed [facility] SARS-COV-2 COVID-19 PFIZER VACCINE Unknown Completed [facility] SARS-COV-2 COVID-19 PFIZER VACCINE Unknown Completed [facility] Influenza Virus Vaccine Quad IM, Preserv and ABX Free 6 MO-64 YRS (FLUCELVAX) Unknown Completed [facility] Pneumococcal 13 Conjugate, PCV13 (Prevnar 13) Unknown Completed [facility] TDAP Unknown Completed [facility] SARS-COV-2 COVID-19 PFIZER VACCINE Unknown Completed [facility] Influenza Virus Vaccine Quad IM, Preserv and ABX Free 6 MO-64 YRS (FLUCELVAX) Unknown Completed [facility] Influenza Virus Vaccine Quad .5 mL IM 6+ MO (FLUZONE/FLULAVAL/F LUARIX) Unknown Completed [facility] Influenza Virus Vaccine Unknown Completed [facility] SARS-COV-2 COVID-19 PFIZER VACCINE Unknown Completed [facility] SARS-COV-2 COVID-19 PFIZER VACCINE Unknown Completed [facility] Influenza Virus Vaccine Quad IM, Preserv and ABX Free 6 MO-64 YRS (FLUCELVAX) Unknown Completed [facility] Pneumococcal 13 Conjugate, PCV13 (Prevnar 13) Unknown Completed [facility] TDAP Unknown Completed [facility] SARS-COV-2 COVID-19 PFIZER VACCINE Unknown Completed [facility] Influenza Virus Vaccine Quad IM, Preserv and ABX Free 6 MO-64 YRS (FLUCELVAX) Unknown Completed [facility] Influenza Virus Vaccine Quad .5 mL IM 6+ MO (FLUZONE/FLULAVAL/F LUARIX) Unknown Completed [facility] Influenza Virus Vaccine Unknown Completed [facility] SARS-COV-2 COVID-19 PFIZER VACCINE Unknown Completed [facility] SARS-COV-2 COVID-19 PFIZER VACCINE Unknown Completed [facility] Influenza Virus Vaccine Quad IM, Preserv and ABX Free 6 MO-64 YRS (FLUCELVAX) Unknown Completed [facility] Pneumococcal 13 Conjugate, PCV13 (Prevnar 13) Unknown Completed [facility] TDAP Unknown Completed [facility] SARS-COV-2 COVID-19 PFIZER VACCINE Unknown Completed [facility] Influenza Virus Vaccine Quad IM, Preserv and ABX Free 6 MO-64 YRS (FLUCELVAX) Unknown Completed [facility] Influenza Virus Vaccine Quad .5 mL IM 6+ MO (FLUZONE/FLULAVAL/F LUARIX) Unknown Completed [facility] Influenza Virus Vaccine Unknown Completed [facility] SARS-COV-2 COVID-19 PFIZER VACCINE Unknown Completed [facility] SARS-COV-2 COVID-19 PFIZER VACCINE Unknown Completed [facility] Influenza Virus Vaccine Quad IM, Preserv and ABX Free 6 MO-64 YRS (FLUCELVAX) Unknown Completed [facility] Pneumococcal 13 Conjugate, PCV13 (Prevnar 13) Unknown Completed [facility] TDAP Unknown Completed [facility] SARS-COV-2 COVID-19 PFIZER VACCINE Unknown Completed [facility] Influenza Virus Vaccine Quad IM, Preserv and ABX Free 6 MO-64 YRS (FLUCELVAX) Unknown Completed [facility] Influenza Virus Vaccine Quad .5 mL IM 6+ MO (FLUZONE/FLULAVAL/F LUARIX) Unknown Completed [facility] Influenza Virus Vaccine Unknown Completed [facility] SARS-COV-2 COVID-19 PFIZER VACCINE Unknown Completed [facility] SARS-COV-2 COVID-19 PFIZER VACCINE Unknown Completed [facility] Influenza Virus Vaccine Quad IM, Preserv and ABX Free 6 MO-64 YRS (FLUCELVAX) Unknown Completed [facility] Pneumococcal 13 Conjugate, PCV13 (Prevnar 13) Unknown Completed [facility] TDAP Unknown Completed [facility] SARS-COV-2 COVID-19 PFIZER VACCINE Unknown Completed [facility] Influenza Virus Vaccine Quad IM, Preserv and ABX Free 6 MO-64 YRS (FLUCELVAX) Unknown Completed [facility] Influenza Virus Vaccine Quad .5 mL IM 6+ MO (FLUZONE/FLULAVAL/F LUARIX) Unknown Completed [facility] Influenza Virus Vaccine Unknown Completed [facility] SARS-COV-2 COVID-19 PFIZER VACCINE Unknown Completed [facility] SARS-COV-2 COVID-19 PFIZER VACCINE Unknown Completed [facility] Influenza Virus Vaccine Quad IM, Preserv and ABX Free 6 MO-64 YRS (FLUCELVAX) Unknown Completed [facility] Pneumococcal 13 Conjugate, PCV13 (Prevnar 13) Unknown Completed [facility] TDAP Unknown Completed [facility] SARS-COV-2 COVID-19 PFIZER VACCINE Unknown Completed [facility] Influenza Virus Vaccine Quad IM, Preserv and ABX Free 6 MO-64 YRS (FLUCELVAX) Unknown Completed [facility] Influenza Virus Vaccine Quad .5 mL IM 6+ MO (FLUZONE/FLULAVAL/F LUARIX) Unknown Completed [facility] Influenza Virus Vaccine Unknown Completed [facility] SARS-COV-2 COVID-19 PFIZER VACCINE Unknown Completed [facility] SARS-COV-2 COVID-19 PFIZER VACCINE Unknown Completed [facility] Influenza Virus Vaccine Quad IM, Preserv and ABX Free 6 MO-64 YRS (FLUCELVAX) Unknown Completed [facility] Pneumococcal 13 Conjugate, PCV13 (Prevnar 13) Unknown Completed [facility] TDAP Unknown Completed [facility] SARS-COV-2 COVID-19 PFIZER VACCINE Unknown Completed [facility] Influenza Virus Vaccine Quad IM, Preserv and ABX Free 6 MO-64 YRS (FLUCELVAX) Unknown Completed [facility] Influenza Virus Vaccine Quad .5 mL IM 6+ MO (FLUZONE/FLULAVAL/F LUARIX) Unknown Completed [facility] Influenza Virus Vaccine Unknown Completed [facility] SARS-COV-2 COVID-19 PFIZER VACCINE Unknown Completed [facility] SARS-COV-2 COVID-19 PFIZER VACCINE Unknown Completed [facility] Influenza Virus Vaccine Quad IM, Preserv and ABX Free 6 MO-64 YRS (FLUCELVAX) Unknown Completed [facility] Pneumococcal 13 Conjugate, PCV13 (Prevnar 13) Unknown Completed [facility] TDAP Unknown Completed [facility] SARS-COV-2 COVID-19 PFIZER VACCINE Unknown Completed [facility] Influenza Virus Vaccine Quad IM, Preserv and ABX Free 6 MO-64 YRS (FLUCELVAX) Unknown Completed [facility] Influenza Virus Vaccine Quad .5 mL IM 6+ MO (FLUZONE/FLULAVAL/F LUARIX) Unknown Completed [facility] Influenza Virus Vaccine Unknown Completed [facility] SARS-COV-2 COVID-19 PFIZER VACCINE Unknown Completed [facility] SARS-COV-2 COVID-19 PFIZER VACCINE Unknown Completed [facility] Influenza Virus Vaccine Quad IM, Preserv and ABX Free 6 MO-64 YRS (FLUCELVAX) Unknown Completed [facility] Pneumococcal 13 Conjugate, PCV13 (Prevnar 13) Unknown Completed [facility] TDAP Unknown Completed [facility] SARS-COV-2 COVID-19 PFIZER VACCINE Unknown Completed [facility] Influenza Virus Vaccine Quad IM, Preserv and ABX Free 6 MO-64 YRS (FLUCELVAX) Unknown Completed [facility] Influenza Virus Vaccine Quad .5 mL IM 6+ MO (FLUZONE/FLULAVAL/F LUARIX) Unknown Completed [facility] Influenza Virus Vaccine Unknown Completed [facility] SARS-COV-2 COVID-19 PFIZER VACCINE Unknown Completed [facility] SARS-COV-2 COVID-19 PFIZER VACCINE Unknown Completed [facility] Influenza Virus Vaccine Quad IM, Preserv and ABX Free 6 MO-64 YRS (FLUCELVAX) Unknown Completed [facility] Pneumococcal 13 Conjugate, PCV13 (Prevnar 13) Unknown Completed [facility] TDAP Unknown Completed [facility] SARS-COV-2 COVID-19 PFIZER VACCINE Unknown Completed [facility] Influenza Virus Vaccine Quad IM, Preserv and ABX Free 6 MO-64 YRS (FLUCELVAX) Unknown Completed [facility] Influenza Virus Vaccine Quad .5 mL IM 6+ MO (FLUZONE/FLULAVAL/F LUARIX) Unknown Completed [facility] Influenza Virus Vaccine Unknown Completed [facility] SARS-COV-2 COVID-19 PFIZER VACCINE Unknown Completed [facility] SARS-COV-2 COVID-19 PFIZER VACCINE Unknown Completed [facility] Influenza Virus Vaccine Quad IM, Preserv and ABX Free 6 MO-64 YRS (FLUCELVAX) Unknown Completed [facility] Pneumococcal 13 Conjugate, PCV13 (Prevnar 13) Unknown Completed [facility] TDAP Unknown Completed [facility] SARS-COV-2 COVID-19 PFIZER VACCINE Unknown Completed [facility] Influenza Virus Vaccine Quad IM, Preserv and ABX Free 6 MO-64 YRS (FLUCELVAX) Unknown Completed [facility] Influenza Virus Vaccine Quad .5 mL IM 6+ MO (FLUZONE/FLULAVAL/F LUARIX) Unknown Completed [facility] Influenza Virus Vaccine Unknown Completed [facility] SARS-COV-2 COVID-19 PFIZER VACCINE Unknown Completed [facility] SARS-COV-2 COVID-19 PFIZER VACCINE Unknown Completed [facility] Influenza Virus Vaccine Quad IM, Preserv and ABX Free 6 MO-64 YRS (FLUCELVAX) Unknown Completed [facility] Pneumococcal 13 Conjugate, PCV13 (Prevnar 13) Unknown Completed [facility] TDAP Unknown Completed [facility] SARS-COV-2 COVID-19 PFIZER VACCINE Unknown Completed [facility] Influenza Virus Vaccine Quad IM, Preserv and ABX Free 6 MO-64 YRS (FLUCELVAX) Unknown Completed [facility] Influenza Virus Vaccine Quad .5 mL IM 6+ MO (FLUZONE/FLULAVAL/F LUARIX) Unknown Completed [facility] Influenza Virus Vaccine Unknown Completed [facility] SARS-COV-2 COVID-19 PFIZER VACCINE Unknown Completed [facility] SARS-COV-2 COVID-19 PFIZER VACCINE Unknown Completed [facility] Influenza Virus Vaccine Quad IM, Preserv and ABX Free 6 MO-64 YRS (FLUCELVAX) Unknown Completed [facility] Pneumococcal 13 Conjugate, PCV13 (Prevnar 13) Unknown Completed [facility] TDAP Unknown Completed [facility] SARS-COV-2 COVID-19 PFIZER VACCINE Unknown Completed [facility] Influenza Virus Vaccine Quad IM, Preserv and ABX Free 6 MO-64 YRS (FLUCELVAX) Unknown Completed [facility] Influenza Virus Vaccine Quad .5 mL IM 6+ MO (FLUZONE/FLULAVAL/F LUARIX) Unknown Completed [facility] Influenza Virus Vaccine Unknown Completed [facility] SARS-COV-2 COVID-19 PFIZER VACCINE Unknown Completed [facility] SARS-COV-2 COVID-19 PFIZER VACCINE Unknown Completed [facility] Influenza Virus Vaccine Quad IM, Preserv and ABX Free 6 MO-64 YRS (FLUCELVAX) Unknown Completed [facility] Pneumococcal 13 Conjugate, PCV13 (Prevnar 13) Unknown Completed [facility] TDAP Unknown Completed [facility] SARS-COV-2 COVID-19 PFIZER VACCINE Unknown Completed [facility] Influenza Virus Vaccine Quad IM, Preserv and ABX Free 6 MO-64 YRS (FLUCELVAX) Unknown Completed [facility] Influenza Virus Vaccine Quad .5 mL IM 6+ MO (FLUZONE/FLULAVAL/F LUARIX) Unknown Completed [facility] Influenza Virus Vaccine Unknown Completed [facility] SARS-COV-2 COVID-19 PFIZER VACCINE Unknown Completed [facility] SARS-COV-2 COVID-19 PFIZER VACCINE Unknown Completed [facility] Influenza Virus Vaccine Quad IM, Preserv and ABX Free 6 MO-64 YRS (FLUCELVAX) Unknown Completed [facility] Pneumococcal 13 Conjugate, PCV13 (Prevnar 13) Unknown Completed [facility] TDAP Unknown Completed [facility] SARS-COV-2 COVID-19 PFIZER VACCINE Unknown Completed [facility] Influenza Virus Vaccine Quad IM, Preserv and ABX Free 6 MO-64 YRS (FLUCELVAX) Unknown Completed [facility] Influenza Virus Vaccine Quad .5 mL IM 6+ MO (FLUZONE/FLULAVAL/F LUARIX) Unknown Completed [facility] Influenza Virus Vaccine Unknown Completed [facility] SARS-COV-2 COVID-19 PFIZER VACCINE Unknown Completed [facility] SARS-COV-2 COVID-19 PFIZER VACCINE Unknown Completed [facility] Influenza Virus Vaccine Quad IM, Preserv and ABX Free 6 MO-64 YRS (FLUCELVAX) Unknown Completed [facility] Pneumococcal 13 Conjugate, PCV13 (Prevnar 13) Unknown Completed [facility] TDAP Unknown Completed [facility] SARS-COV-2 COVID-19 PFIZER VACCINE Unknown Completed [facility] Influenza Virus Vaccine Quad IM, Preserv and ABX Free 6 MO-64 YRS (FLUCELVAX) Unknown Completed [facility] Influenza Virus Vaccine Quad .5 mL IM 6+ MO (FLUZONE/FLULAVAL/F LUARIX) Unknown Completed [facility] Influenza Virus Vaccine Unknown Completed [facility] SARS-COV-2 COVID-19 PFIZER VACCINE Unknown Completed [facility] SARS-COV-2 COVID-19 PFIZER VACCINE Unknown Completed [facility] Influenza Virus Vaccine Quad IM, Preserv and ABX Free 6 MO-64 YRS (FLUCELVAX) Unknown Completed [facility] Pneumococcal 13 Conjugate, PCV13 (Prevnar 13) Unknown Completed [facility] TDAP Unknown Completed [facility] SARS-COV-2 COVID-19 PFIZER VACCINE Unknown Completed [facility] Influenza Virus Vaccine Quad IM, Preserv and ABX Free 6 MO-64 YRS (FLUCELVAX) Unknown Completed [facility] Influenza Virus Vaccine Quad IM, Preserv and ABX Free 6 MO-64 YRS (FLUCELVAX) Unknown Completed [facility] Influenza Virus Vaccine Quad .5 mL IM 6+ MO (FLUZONE/FLULAVAL/F LUARIX) Unknown Completed [facility] Influenza Virus Vaccine Unknown Completed [facility] SARS-COV-2 COVID-19 PFIZER VACCINE Unknown Completed [facility] SARS-COV-2 COVID-19 PFIZER VACCINE Unknown Completed [facility] Influenza Virus Vaccine Quad IM, Preserv and ABX Free 6 MO-64 YRS (FLUCELVAX) Unknown Completed [facility] Pneumococcal 13 Conjugate, PCV13 (Prevnar 13) Unknown Completed [facility] TDAP Unknown Completed [facility] SARS-COV-2 COVID-19 PFIZER VACCINE Unknown Completed [facility] Influenza Virus Vaccine Quad IM, Preserv and ABX Free 6 MO-64 YRS (FLUCELVAX) Unknown Completed [facility] Influenza Virus Vaccine Quad IM, Preserv and ABX Free 6 MO-64 YRS (FLUCELVAX) Unknown Completed [facility] Vital Signs Vital Name Observation Time Observation Value Comments S ource Systolic blood pressure 2023-03-04 16:35:00 107 mm[Hg] [facility] Diastolic blood pressure 2023-03-04 16:35:00 72 mm[Hg] [facility] Heart rate 2023-03-04 16:35:00 69 /min [facility] Body height 2023-03-04 16:35:00 165.1 cm [facility] Body weight 2023-03-04 16:35:00 112.175 kg [facility] BMI 2023-03-04 16:35:00 41.15 kg/m2 [facility] Oxygen saturation in Arterial blood by Pulse oximetry 2023-03-04 16:35:00 94 /min [facility] Systolic blood pressure 2022-12-13 14:45:00 128 mm[Hg] [facility] Diastolic blood pressure 2022-12-13 14:45:00 80 mm[Hg] [facility] Heart rate 2022-12-13 14:37:00 84 /min [facility] Body height 2022-12-13 14:37:00 [facility] 2022-12-13 14:37:00 111.948 [facility] BMI 2022-12-13 14:37:00 41.07 kg/m2 [facility] Oxygen saturation in Arterial blood by Pulse oximetry 2022-12-13 14:37:00 99 /min [facility] Systolic blood pressure 2022-11-29 21:23:00 127 mm[Hg] [facility] Diastolic blood pressure 2022-11-29 21:23:00 84 mm[Hg] [facility] Heart rate 2022-11-29 21:23:00 69 /min [facility] Body temperature 2022-11-29 21:23:00 36.72 Lynsey [facility] Respiratory rate 2022-11-29 21:23:00 16 /min [facility] Body height 2022-11-29 21:23:00 165.1 cm [facility] weight 2022-11-29 21:23:00 112.038 kg [facility] BMI 2022-11-29 21:23:00 41.10 kg/m2 [facility] Oxygen saturation in Arterial blood by Pulse oximetry 2022-11-29 21:23:00 100 /min [facility] Systolic blood pressure 2022-09-17 08:00:00 125 mm[Hg] [facility] Diastolic blood pressure 2022-09-17 08:00:00 78 mm[Hg] [facility] Heart rate 2022-09-17 08:00:00 53 /min [facility] Respiratory rate 2022-09-17 08:00:00 20 /min [facility] Oxygen saturation in Arterial blood by Pulse oximetry 2022-09-17 08:00:00 98 /min [facility] Body temperature 2022-09-17 03:24:00 36.72 Lynesy [facility] Body height 2022-09-17 03:24:00 165.1 cm [facility] weight 2022-09-17 03:24:00 114.76 kg [facility] BMI 2022-09-17 03:24:00 42.10 kg/m2 [facility] Systolic blood pressure 2022-09-14 14:30:00 126 mm[Hg] [facility] Diastolic blood pressure 2022-09-14 14:30:00 71 mm[Hg] [facility] Heart rate 2022-09-14 14:30:00 68 /min [facility] Body temperature 2022-09-14 14:30:00 36.89 Lynsey [facility] Respiratory rate 2022-09-14 14:30:00 16 /min [facility] Body height 2022-09-14 14:30:00 165.1 cm [facility] Body weight 2022-09-14 14:30:00 114.896 kg [facility] BMI 2022-09-14 14:30:00 42.15 kg/m2 [facility] Oxygen saturation in Arterial blood by Pulse oximetry 2022-09-14 14:30:00 99 /min [facility] Systolic blood pressure 2022-09-04 20:33:00 119 mm[Hg] [facility] Diastolic blood pressure 2022-09-04 20:33:00 79 mm[Hg] [facility] Heart rate 2022-09-04 20:33:00 78 /min [facility] Respiratory rate 2022-09-04 20:33:00 18 /min [facility] Body height 2022-09-04 20:33:00 165.1 cm [facility] Body weight 2022-09-04 20:33:00 113.49 kg [facility] BMI 2022-09-04 20:33:00 41.64 kg/m2 [facility] Oxygen saturation in Arterial blood by Pulse oximetry 2022-09-04 20:33:00 97 /min [facility] Systolic blood pressure 2022-08-30 21:22:00 118 mm[Hg] [facility] Diastolic blood pressure 2022-08-30 21:22:00 78 mm[Hg] [facility] Heart rate 2022-08-30 21:22:00 84 /min [facility] Respiratory rate 2022-08-30 21:22:00 18 /min [facility] Body height 2022-08-30 21:22:00 165.1 cm [facility] Body weight 2022-08-30 21:22:00 113.399 kg [facility] BMI 2022-08-30 21:22:00 41.60 kg/m2 [facility] Systolic blood pressure 2022-08-20 16:05:00 116 mm[Hg] [facility] Diastolic blood pressure 2022-08-20 16:05:00 65 mm[Hg] [facility] Respiratory rate 2022-08-20 16:05:00 16 /min [facility] Oxygen saturation in Arterial blood by Pulse oximetry 2022-08-20 16:05:00 98 /min [facility] Heart rate 2022-08-20 15:25:00 63 /min [facility] Body temperature 2022-08-20 14:43:00 35.94 Lynsey [facility] Body height 2022-08-09 15:00:00 165.1 cm [facility] Body weight 2022-08-09 15:00:00 108.863 kg [facility] BMI 2022-08-09 15:00:00 39.94 kg/m2 [facility] Systolic blood pressure 2022-08-20 15:00:00 114 mm[Hg] [facility] Diastolic blood pressure 2022-08-20 15:00:00 55 mm[Hg] [facility] Respiratory rate 2022-08-20 15:00:00 17 /min [facility] Oxygen saturation in Arterial blood by Pulse oximetry 2022-08-20 15:00:00 100 /min [facility] Heart rate 2022-08-20 14:43:00 70 /min [facility] Body temperature 2022-08-20 14:43:00 35.94 Lynsey [facility] Body height 2022-08-09 15:00:00 165.1 cm [facility] Body weight 2022-08-09 15:00:00 108.863 [facility] BMI 2022-08-09 15:00:00 39.94 kg/m2 [facility] Systolic blood pressure 2022-08-17 19:18:00 136 mm[Hg] [facility] Diastolic blood pressure 2022-08-17 19:18:00 78 mm[Hg] [facility] Heart rate 2022-08-17 19:18:00 86 /min [facility] Body height 2022-08-17 19:18:00 165.1 cm [facility] weight 2022-08-17 19:18:00 115.304 kg [facility] BMI 2022-08-17 19:18:00 42.30 kg/m2 [facility] Oxygen saturation in Arterial blood by Pulse oximetry 2022-08-17 19:18:00 98 /min [facility] Systolic blood pressure 2022-08-02 13:43:00 135 mm[Hg] [facility] Diastolic blood pressure 2022-08-02 13:43:00 85 mm[Hg] [facility] Heart rate 2022-08-02 13:43:00 72 /min [facility] Respiratory rate 2022-08-02 13:43:00 18 /min [facility] Body height 2022-08-02 13:43:00 152.4 cm [facility] Body weight 2022-08-02 13:43:00 111.585 kg [facility] BMI 2022-08-02 13:43:00 48.04 kg/m2 [facility] Systolic blood pressure 2022-07-29 03:00:00 129 mm[Hg] [facility] Diastolic blood pressure 2022-07-29 03:00:00 83 mm[Hg] [facility] Heart rate 2022-07-29 03:00:00 70 /min [facility] Respiratory rate 2022-07-29 03:00:00 16 /min [facility] Oxygen saturation in Arterial blood by Pulse oximetry 2022-07-29 03:00:00 98 /min [facility] Body temperature 2022-07-28 21:22:00 36.72 Lynsey [facility] Body height 2022-07-28 21:22:00 165.1 cm [facility] Body weight 2022-07-28 21:22:00 109.77 kg [facility] BMI 2022-07-28 21:22:00 40.27 kg/m2 [facility] Systolic blood pressure 2022-02-28 17:46:00 128 mm[Hg] [facility] Diastolic blood pressure 2022-02-28 17:46:00 28 mm[Hg] [facility] Heart rate 2022-02-28 17:46:00 93 /min [facility] Body height 2022-02-28 17:46:00 165.1 cm [facility] Body weight 2022-02-28 17:46:00 115.214 kg [facility] BMI 2022-02-28 17:46:00 42.27 kg/m2 [facility] Systolic blood pressure 2021-11-27 15:19:00 139 mm[Hg] [facility] Diastolic blood pressure 2021-11-27 15:19:00 76 mm[Hg] [facility] Heart rate 2021-11-27 15:19:00 83 /[facility] Body height 2021-11-27 15:19:00 165.1 cm [facility] Body weight 2021-11-27 15:19:00 120.385 kg [facility] BMI 2021-11-27 15:19:00 44.16 kg/m2 [facility] Oxygen saturation in Arterial blood by Pulse oximetry 2021-11-27 15:19:00 99 /min [facility] Systolic blood pressure 2021-08-25 21:45:00 124 mm[Hg] [facility] Diastolic blood pressure 2021-08-25 21:45:00 79 mm[Hg] [facility] Heart rate 2021-08-25 21:45:00 75 /min [facility] Body temperature 2021-08-25 21:45:00 36.44 Lynsey [facility] Respiratory rate 2021-08-25 21:45:00 18 /min [facility] Body height 2021-08-25 21:45:00 165.1 cm [facility] Body weight 2021-08-25 21:45:00 123.378 kg [facility] BMI 2021-08-25 21:45:00 45.26 kg/m2 [facility] Procedures Procedure Date / Time Performed Performing Clinician Source AUTHORIZATION TO RELEASE PHI TO [facility] 2023-03-04 06:01:00 Doctor Unassigned, [place] [facility] POCT URINALYSIS W/O SPECIFIC GRAVITY 2022-11-29 00:00:00 Brooklyn Hartman [facility] CT PELVIS WO CONTRAST 2022-09-17 07:57:00 Jing Sullivan [facility] CT ABDOMEN PELVIS W CONTRAST 2022-09-17 05:10:00 Tejal Sullivan [facility] CT CHEST PULMONARY ANGIOGRAM 2022-09-17 05:10:00 Tejal Sullivan [facility] POCT TEST 2022-09-17 04:46:00 Tejal Sullivan [facility] MAGNESIUM 2022-09-17 04:20:00 Tejal Sullivan [facility] COMP. METABOLIC PANEL ([id number]) 2022-09-17 04:20:00 Tejal Sullivan [facility] CBC WITH DIFF 2022-09-17 04:20:00 Tejal Sullivan [facility] URINALYSIS 2022-09-17 04:20:00 Tejal Sullivan [facility] NOTICE OF PRIVACY PRACTICES 2022-09-17 03:07:57 Doctor Unassigned, [place] [facility] CONSENT/REFUSAL FOR DIAGNOSIS AND TREATMENT 2022-09-17 03:05:33 Doctor Unassigned, [place] [facility] COMP. METABOLIC PANEL ([id number]) 2022-09-04 21:30:00 Faye Napoles [facility] CBC WITH DIFF 2022-09-04 21:30:00 Faye Napoles [facility] POCT TEST 2022-08-20 12:22:00 Mckay Fu [facility] POCT TEST 2022-08-20 12:22:00 Tank gume [facility] LAPAROSCOPIC OOPHORECTOMY 2022-08-20 12:15:00 Devan [facility] LAPAROSCOPIC SALPINGECTOMY 2022-08-20 12:15:00 Devan [facility] DAY SURGERY - ADC 2022-08-20 05:01:00 Doctor Beatriz ssigned, [place] [facility] EXTERNAL PROVIDER RECORDS 2022-08-03 05:01:00 Doctor Unassigned, [place] [facility] DSU PRE-OP 2022-08-02 05:01:00 Doctor Unass igned, [place] [facility] DSU PRE-OP 2022-08-02 05:01:00 Doctor Unass igned, [place] [facility] US OVARY TORSION 2022-07-29 01:30:00 [place] [facility]AST 2022-07-28 23:04:58 [place] [facility] COMP. METABOLIC PANEL ([id number]) 2022-07-28 22:20:00 [place] [facility] CBC WITH DIFF 2022-07-28 22:20:00 [place] [facility] URINALYSIS 2022-07-28 22:20:00 [place] [facility] CONSENT/REFUSAL FOR DIAGNOSIS AND TREATMENT 2022-07-28 21:14:36 Doctor Unassigned, [place] [facility] POCT HEMOGLOBIN A1C TEST 2022-02-28 17:58:00 Lanie Lopez [facility] Encounters Start Date/Time End Date/Time Encounter Type Admission Type Attending [facility] Care Facility Care Department Encounter ID Source 2021-03-22 12:08[facility]59 [id number] 2021-03-22 12:08:27 [facility] [id number] [facility] 2021-03-22 11:07:35 Outpatient Cinda Briceno [facility] [id number] [facility] 2023-12-05 15:30:00 2023-12-05 15:30:00 Outpatient R [facility], [place] [facility], [facility] [id number] [facility] 2023-06-11 09:20:00 2023-06-11 09:20:00 Outpatient R JAGUAR, [facility] [id number] [facility] 2023-06-10 14:06:34 2023-06-10 14:06:34 Outpatient SFA AMIRAH [id number] Roscoe Finch 2023-06-07 10:30:00 2023-06-07 10:30:00 Outpatient R [facility] [id number] [facility] 2023-05-26 00:00:00 2023-05-26 00:00:00 Refill Yesika [facility] OFF[facility] 1.2.840.114 350.1.13.10 4.2.7.2.686 [id number] [id number] [facility] 2023-03-07 13:30:00 2023-03-07 13:30:00 Outpatient R F[facility]E [facility] [id number] [facility] 2023-03-04 10:30:00 2023-03-04 11:00:00 Office Visit Percy Andrade [facility] 1.2.840.114 350.1.13.10 4.2.7.2.686 [id number] [facility] 2023-03-04 10:30:00 2023-03-04 10:30:00 Outpatient R [facility] [id number] [facility] 2023-03-04 00:00:00 2023-03-04 00:00:00 Orders Only Doctor Unassigned, [place] [facility] 1.84.114 350.1.13.10 4.2.7.2.686 [id number] [facility] 2023-03-02 00:00:00 2023-03-02 00:00:00 RefStella WhyteFormerly [facility], [facility] HESHAM?MAMI [facility] MEDICAL OFFICE BUILDING 1.840.114 350.1.13.10 4.2.7.2.686 [id number] 044 [id number] [facility] 2023-02-04 14:00:00 2023-02-04 14:00:00 Outpatient R LANIE LOPEZ [facility] [id number] [facility] 2023-01-26 00:00:00 2023-01-26 00:00:00 Refill Stella NapolesFormerly [facility], [facility] HESHAM?HAILEYSerena [facility] MEDICAL OFFICE BUILDING 1.840.114 350.1.13.10 4.2.7.2.686 [id number] [id number] [facility] 2023-01-07 10:40:00 2023-01-07 10:40:00 Outpatient K[facility]Y [facility] [id number] [facility] 2022-12-13 09:30:00 2022-12-13 10:16:50 Outpatient R [facility] [id number] [facility] 2022-12-13 09:30:00 2022-12-13 10:16:50 Office Visit Yesika [facility] HESHAM[facility] MED[facility] OFFICE BUILD[facility] 1.840.114 350.1.13.10 4.2.7.2.686 [id number] 044 [id number] [facility] 2022-12-10 16:30:00 2022-12-10 16:30:00 Outpatient R LANIE [facility] [id number] [facility] 2022-11-30 13:00:00 2022-11-30 13:17:44 Outpatient R ALCALA[place]CARLYLE S, [place] [facility], [facility] [id number] [facility] 2022-11-30 13:00:00 2022-11-30 13:17:44 Chart Writer Visit Lab, Avila Alcala-Carlyle s, [facility] 1.2.840.114 350.1.13.10 4.2.7.2.686 [id number] [facility] 2022-11-30 00:00:00 2022-11-30 00:00:00 Faye Liu [facility] 1.2.840.114 350.1.13.10 4.2.7.2.686 [id number] [id number] [facility] 2022-11-29 16:30:00 2022-11-29 16:41:13 Outpatient R ALCALA-CARLYLE S, [place] [facility], [facility] [id number] [facility] 2022-11-29 16:30:00 2022-11-29 16:41:13 Office Visit Fredrick-Carlyle s [place] [facility] 1..840.114 350.1.13.10 4.2.7.2.686 [id number] [facility] 2022-11-09 16:30:00 2022-11-09 16:30:00 Outpatient R ALCALA-CARLYLE S, [place] [facility], [facility] [id number] [facility] 2022-10-22 00:00:00 2022-10-22 00:00:00 [facility] OFF[facility]ILD[facility] 1.2.840.114 350.1.13.10 4.2.7.2.686 [id number] 044 [id number] [facility] 2022-10-18 00:00:00 2022-10-18 00:00:00 Refill Lanie Lopez [facility] 1..840.114 350.1.13.10 4.2.7.2.686 [id number] [facility] 2022-10-15 00:00:00 2022-10-15 00:00:00 Refill Stella [facility]olesCritical access hospital?[facility] 1..840.114 350.1.13.10 4.2.7.2.686 [id number] 044 [id number] [facility] 2022-10-12 15:30:00 2022-10-12 15:30:00 Outpatient R FREDRICK-CARLYLE S, [place] [facility], [facility] [id number] [facility] 2022-10-11 14:22:33 2022-10-11 23:59:00 Outpatient R [facility]FAYE [facility] [id number] [facility] 2022-10-11 14:22:33 2022-10-11 23:59:00 Hospital Encounter Faye Napoles [facility] 1..840.114 350.1.13.10 4.2.7.2.686 [id number] [facility] 2022-09-24 13:00:00 2022-09-24 13:00:00 Outpatient R ALCALA-CRALYLE S, [place] Alfaro [facility] [id number] [facility] 2022-09-20 00:00:00 2022-09-20 00:00:00 [facility] 1.2.840.114 350.1.13.10 4.2.7.2.686 [id number] [facility] 2022-09-19 00:00:00 2022-09-19 00:00:00 Telephone Lanie Lopez [facility] 1.2.840.114 350.1.13.10 4.2.7.2.686 [id number] 220 [id number] [facility] 2022-09-19 00:00:00 2022-09-19 00:00:00 Patient Secure Msg Ross alfaro [facility] 1.2840.114 350.1.13.10 4.2.7.2.686 [id number] 134 [id number] [facility] 2022-09-18 11:40:00 2022-09-18 11:40:00 Outpatient R ROSS Alfaro, [place] Alafro [facility] [id number] [facility] 2022-09-18 00:00:00 2022-09-18 00:00:00 Telephone Angela Tracysol [facility] 1.2.840.114 350.1.13.10 4.2.7.2.686 [id number] 134 [id number] [facility] 2022-09-16 22:33:00 2022-09-17 03:30:00 Emergency X TEJAL SULLIVAN [facility] ERT [id number] [facility] 2022-09-16 22:33:00 2022-09-17 03:30:00 Emergency Tejal Sullivan [facility] 1.2.840.114 350.1.13.10 4.2.7.2.686 [id number] [facility] 2022-09-14 09:00:00 2022-09-14 09:53:56 Outpatient R ALCALA-CARLYLE S, [place] [facility], [facility] [id number] [facility] 2022-09-14 09:00:00 2022-09-14 09:53:56 Office Visit Alcala-Carlyle s, [place] [facility] 1.0.114 350.1.13.10 4.2.7.2.686 [id number] [facility] 2022-09-14 08:00:00 2022-09-14 08:00:00 Outpatient R ALCALA-CARLYLE S, [place] [facility], [facility] [id number] [facility] 2022-09-07 00:00:00 2022-09-07 00:00:00 Refill Faye Napoles [facility]?HAILEYSerena [facility] 1.840.114 350.1.13.10 4.2.7.2.686 [id number] [id number] [facility] 2022-09-06 00:00:00 2022-09-06 00:00:00 Refill Jose Bowen [facility] PROFESSIO NAL BUILDING 1.840.114 350.1.13.10 4.2.7.2.686 [id number] [facility] 2022-09-06 00:00:00 2022-09-06 00:00:00 Patient Secure Msg Doctor Unassigned, [place] [facility] 1.2840.114 350.1.13.10 4.2.7.2.686 [id number] 019 [id number] [facility] 2022-09-04 16:15:00 2022-09-04 16:33:18 Chart Writer Visit Lab, Avila - Nadeem Yesika [facility] 1.284.114 350.1.13.10 4.2.7.2.686 [id number] [facility] 2022-09-04 15:00:00 2022-09-04 16:21:35 [facility] [id number] 2022-09-04 15:00:00 2022-09-04 16:21:35 [facility] 1.284.114 350.1.13.10 4.2.7.2.686 [id number] [id number] [facility] 2022-09-04 00:00:00 2022-09-04 00:00:00 Refill [facility] 1.84.114 350.1.13.10 4.2.7.2.686 [id number] 044 [id number] [facility] 2022-08-30 16:30:00 2022-08-30 16:49:20 Outpatient R [place] TRACY [facility] [id number] [facility] 2022-08-30 16:30:00 2022-08-30 16:49:20 Office Visit [place] Tracy [facility] 1.84.114 350.1.13.10 4.2.7.2.686 [id number] 134 [id number] [facility] 2022-08-25 00:00:00 2022-08-25 00:00:00 Refill Lanie Lopez [facility] OFF[facility] BU[facility] 1.2.840.114 350.1.13.10 4.2.7.2.686 [id number] 220 [id number] [facility] 2022-08-22 00:00:00 2022-08-22 00:00:00 Telephone Alcala-Carlyle alfaro [place] [facility] 1.2840.114 350.1.13.10 4.2.7.2.686 [id number] 134 [id number] [facility] 2022-08-20 06:45:00 2022-08-20 11:22:00 Outpatient R ALCALA-CARLYLE S, [place]CAR[place] S, [place] [facility] 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2840.114 350.1.13.10 4.2.7.2.686 [id number] [facility] 2022-08-20 00:00:00 2022-08-20 00:00:00 Telephone Alcala-Carlyle s [facility] 1.2840.114 350.1.13.10 4.2.7.2.686 [id number] 134 [id number] [facility] 2022-08-17 14:00:00 2022-08-17 14:52:48 Outpatient R EMILY [facility] [id number] [facility] 2022-08-17 14:00:00 2022-08-17 14:52:48 [facility] 1.114 350.1.13.10 4.2.7.2.686 [id number] 220 [id number] [facility] 2022-08-17 00:00:00 2022-08-17 00:00:00 Telephone [place] Tracy [facility] 1.114 350.1.13.10 4.2.7.2.686 [id number] 134 [id number] [facility] 2022-08-15 15:00:00 2022-08-15 16:00:22 Chart Writer Visit Lab, Avila Gayle [facility]I [facility] OFF[facility] BUILD[facility] 1.114 350.1.13.10 4.2.7.2.686 [id number] [facility] 2022-08-15 15:00:00 2022-08-15 15:00:00 Outpatient R [facility] [id number] [facility] 2022-08-15 00:00:00 2022-08-15 00:00:00 Telephone Jessica [facility] HESHAM?MAMI [facility] MEDICAL OFFICE BUILDING 1.114 350.1.13.10 4.2.7.2.686 [id number] 220 [id number] [facility] 2022-08-07 00:00:00 2022-08-07 00:00:00 Telephone Jessica Manjarrez [facility] HESHAM?MAMI ASENCIO [facility] OFF[facility] BUILDING 1.114 350.1.13.10 4.2.7.2.686 [id number] 220 [id number] [facility] 2022-08-03 00:00:00 2022-08-03 00:00:00 Orders Only Doctor Unassigned, [place] [facility] 1.2840.114 350.1.13.10 4.2.7.2.686 [id number] [facility] 2022-08-02 08:30:00 2022-08-02 09:17:20 Outpatient R ROSS Alfaro [place] Alfaro [facility] [id number] [facility] 2022-08-02 08:30:00 2022-08-02 09:17:20 Office Visit Ross alfaro [place] [facility] 1.0.114 350.1.13.10 4.2.7.2.686 [id number] 134 [id number] [facility] 2022-08-02 00:00:00 2022-08-02 00:00:00 Prep For Surgery Ross alfaro [facility] 1.20.114 350.1.13.10 4.2.7.2.686 [id number] 134 [id number] [facility] 2022-07-30 00:00:00 2022-07-30 00:00:00 Patient Secure Msg Doctor Unassigned, [place] [facility] 1.20.114 350.1.13.10 4.2.7.2.686 [id number] 220 [id number] [facility] 2022-07-28 16:25:00 2022-07-28 22:46:00 Emergency X [place] [facility] ERT [id number] [facility] 2022-07-28 16:25:00 2022-07-28 22:46:00 Emergency [place] [facility] 1.2840.114 350.1.13.10 4.2.7.2.686 [id number] [facility] 2022-07-27 14:30:00 2022-07-27 14:30:00 Outpatient R EMILY [facility] [id number] [facility] 2022-07-25 00:00:00 2022-07-25 00:00:00 Refill Jessica, [facility] MED[facility] OFFICE BUILDING 1.2840.114 350.1.13.10 4.2.7.2.686 [id number] 220 [id number] [facility] 2022-07-25 00:00:00 2022-07-25 00:00:00 [facility] 1.284.114 350.1.13.10 4.2.7.2.686 [id number] [facility] 2022-07-20 00:00:00 2022-07-20 00:00:00 Refill Jessica [facility] OFF[facility] BUILD[facility] 1.284.114 350.1.13.10 4.2.7.2.686 [id number] 220 [id number] [facility] 2022-07-02 13:30:00 2022-07-02 13:30:00 Outpatient R LANIE LOPEZ [facility] [id number] [facility] 2022-05-21 00:00:00 2022-05-21 00:00:00 Case Management Pearl Echeverria 1.2840.114 350.1.13.10 4.2.7.2.686 [id number] 086 [id number] [facility] 2022-05-21 00:00:00 2022-05-21 00:00:00 Telephone Pearl Echeverria 1.2840.114 350.1.13.10 4.2.7.2.686 [id number] 086 [id number] [facility] 2022-05-04 00:00:00 2022-05-04 00:00:00 [facility] MEDICAL OFFICE BUILDING 1.2840.114 350.1.13.10 4.2.7.2.686 [id number] 220 [id number] [facility] 2022-03-06 00:00:00 2022-03-06 00:00:00 Patient Secure Msg Jessica [facility] OFF[facility] BUILD[facility] 1.2840.114 350.1.13.10 4.2.7.2.686 [id number] 220 [id number] [facility] 2022-03-02 00:00:00 2022-03-02 00:00:00 Refill Jessica [facility] PRIMARY CARE PAVILLION 1.2840.114 350.1.13.10 4.2.7.2.686 [id number] 220 [id number] [facility] 2022-02-28 12:00:00 2022-02-28 13:14:28 Outpatient R LANIE LOPEZ [facility] [id number] [facility] 2022-02-28 12:00:00 2022-02-28 13:14:28 [facility] 1.2840.114 350.1.13.10 4.2.7.2.686 [id number] 220 [id number] [facility] 2022-02-28 12:30:00 2022-02-28 12:45:00 Chart Writer Visit Lab, Avila Silver [facility] 1.2840.114 350.1.13.10 4.2.7.2.686 [id number] 353 [id number] [facility] 2022-01-02 15:30:00 2022-01-02 15:30:00 Outpatient R LU [facility] [id number] [facility] 2021-12-19 00:00:00 2021-12-19 00:00:00 Patient Secure Msg LopezLanie [facility] PRIMARY CARE PAVILLION 1.2.840.114 350.1.13.10 4.2.7.2.686 [id number] 220 [id number] [facility] 2021-12-15 16:30:00 2021-12-15 16:30:00 Outpatient R [facility] [id number] [facility] 2021-12-15 00:00:00 2021-12-15 00:00:00 Telephone [facility] 1.2.840.114 350.1.13.10 4.2.7.2.686 [id number] [facility] 2021-11-29 00:00:00 2021-11-29 00:00:00 [facility] 1.2.840.114 350.1.13.10 4.2.7.2.686 [id number] 220 [id number] [facility] 2021-11-29 00:00:00 2021-11-29 00:00:00 Refill Jessica Manjarrez [facility] HESHAM?[facility] MEDICAL OFF[facility] BUILD[facility] 1.2.840.114 350.1.13.10 4.2.7.2.686 [id number] 220 [id number] [facility] 2021-11-27 10:30:00 2021-11-27 11:02:19 Outpatient R LANIE [facility]Z [facility] [id number] [facility] 2021-11-27 10:30:00 2021-11-27 11:02:19 [facility] 1..840.114 350.1.13.10 4.2.7.2.686 [id number] 220 [id number] [facility] 2021-11-24 00:00:00 2021-11-24 00:00:00 RefChema [facility] 1..840.114 350.1.13.10 4.2.7.2.686 [id number] 220 [id number] [facility] 2021-10-21 00:00:00 2021-10-21 00:00:00 Refill Lanie Lopez [facility] HESHAM?[facility] MEDICAL OFF[facility] BUILD[facility] 1..840.114 350.1.13.10 4.2.7.2.686 [id number] 220 [id number] [facility] 2021-10-20 10:00:00 2021-10-20 10:00:00 Outpatient [facility] [id number] [facility] 2021-10-05 15:00:00 2021-10-05 15:00:00 Outpatient [facility] [id number] [facility] 2021-09-29 15:00:00 2021-09-29 15:00:00 Outpatient [facility] [id number] [facility] 2021-09-23 00:00:00 2021-09-23 00:00:00 Nancy Gurrola [facility] 1..840.114 350.1.13.10 4.2.7.2.686 [id number] 220 [id number] [facility] 2021-09-12 13:00:00 2021-09-12 13:00:00 Outpatient [facility] [id number] [facility] 2021-08-29 09:00:00 2021-08-29 09:00:00 Outpatient R [facility] [id number] [facility] 2021-08-29 00:00:00 2021-08-29 00:00:00 Telephone JessicaLanie west [facility] PRIMARY CARE PAVILLION 1.840.114 350.1.13.10 4.2.7.2.686 [id number] 220 [id number] [facility] 2021-08-25 15:00:00 2021-08-25 15:30:00 [facility] 1.840.114 350.1.13.10 4.2.7.2.686 [id number] 134 [id number] [facility] 2021-08-25 15:00:00 2021-08-25 15:00:00 Outpatient R [facility] [id number] [facility] 2021-08-25 15:00:00 2021-08-25 15:00:00 Outpatient R [facility] [id number] [facility] 2021-08-23 09:30:00 2021-08-23 09:45:00 Chart Writer Visit Lab, Avila Montes De Ocabrett [facility] MED[facility] OFF[facility] BUILD[facility] 1..840.114 350.1.13.10 4.2.7.2.686 [id number] 353 [id number] [facility] 2021-08-23 08:30:00 2021-08-23 09:16:15 Outpatient R LANIE LOPEZ [facility] [id number] [facility] 2021-08-23 08:30:00 2021-08-23 09:16:15 Office Visit [facility] MED[facility] OFF[facility] BUILD[facility] 1..840.114 350.1.13.10 4.2.7.2.686 [id number] 220 [id number] [facility] 2021-08-03 00:00:00 2021-08-03 00:00:00 [facility] MEDICAL OFFICE BUILDING 1.2.840.114 350.1.13.10 4.2.7.2.686 [id number] 220 [id number] [facility] 2021-08-02 16:00:00 2021-08-02 16:00:00 Outpatient [facility] [id number] [facility] 2021-07-31 00:00:00 2021-07-31 00:00:00 Refill Angelica [facility] MEDICAL OFF[facility] BUILDING 1.840.114 350.1.13.10 4.2.7.2.686 [id number] 220 [id number] [facility] 2021-07-21 00:00:00 2021-07-21 00:00:00 Refill Angelica [facility]?MAMI [facility] MEDICAL OFFICE BUILDING 1.840.114 350.1.13.10 4.2.7.2.686 [id number] 220 [id number] [facility] 2021-07-20 00:00:00 2021-07-20 00:00:00 RefNancy Tafoya [facility] 1.840.114 350.1.13.10 4.2.7.2.686 [id number] 220 [id number] [facility] 2021-05-17 00:00:00 2021-05-17 00:00:00 Harrison Dominguez [facility] SONIA PROFESSIO NAL BUILDING 1.840.114 350.1.13.10 4.2.7.2.686 [id number] 220 [id number] [facility] 2021-03-11 00:00:00 2021-03-11 00:00:[address]ma [address] [facility] 1.2.840.114 350.1.13.10 4.2.7.2.686 [id number] [facility] 2021-03-08 00:00:00 2021-03-08 00:00:00 Chema Venegas [facility] 1.2.840.114 350.1.13.10 4.2.7.2.686 [id number] 220 [id number] [facility] 2021-02-23 13:30:00 2021-02-23 13:30:00 Outpatient [facility] [id number] [facility] 2021-02-09 00:00:00 2021-02-09 00:00:00 Orders Only Doctor Unassigned, [place] [facility] 1.2.840.114 350.1.13.10 4.2.7.2.686 [id number] [facility] 2021-01-30 00:00:00 2021-01-30 00:00:00 Outpatient [facility] [id number] [facility] 2021-01-30 00:00:00 2021-01-30 00:00:00 Outpatient [facility] [id number] [facility] 2021-01-24 00:00:00 2021-01-24 00:00:00 Telephone Faye Napoles [facility] 1.2.840.114 350.1.13.10 4.2.7.2.686 [id number] [facility] 2021-01-17 13:00:00 2021-01-17 13:00:00 Outpatient KIZZY [facility] [id number] [facility] 2021-01-16 12:41:38 2021-01-16 12:56:38 Chart Writer Visit Pob, [facility] Main Jose Bowen Darci [facility] 1.114 350.1.13.10 4.2.7.2.686 [id number] [facility] 2021-01-16 10:57:50 2021-01-16 11:58:36 Office Visit Shasha Bowenmaikel [facility] BUILD[facility] 1.114 350.1.13.10 4.2.7.2.686 [id number] [facility] 2021-01-16 10:30:00 2021-01-16 11:58:36 Outpatient Smooth [facility] [id number] [facility] 2021-01-16 10:30:00 2021-01-16 11:58:36 Outpatient Smooth [facility] [id number] [facility] 2021-01-16 00:00:00 2021-01-16 00:00:00 Orders Only Doctor Unassigned, [place] [facility] 1.114 350.1.13.10 4.2.7.2.686 [id number] [facility] 2021-01-13 00:00:00 2021-01-13 00:00:00 [facility] 1.114 350.1.13.10 4.2.7.2.686 [id number] 220 [id number] [facility] 2021-01-13 00:00:00 2021-01-13 00:00:00 Patient Secure Msg [facility] 1.114 350.1.13.10 4.2.7.2.686 [id number] [facility] 2021-01-10 00:00:00 2021-01-10 00:00:00 [facility] 1.2.840.114 350.1.13.10 4.2.7.2.686 [id number] [facility] 2021-01-06 15:30:00 2021-01-06 16:04:28 Outpatient R [facility] [id number] [facility] 2021-01-06 15:25:33 2021-01-06 16:04:28 [facility] 1.2.840.114 350.1.13.10 4.2.7.2.686 [id number] [facility] 2021-01-06 15:30:00 2021-01-06 15:30:00 Outpatient R [facility] [id number] [facility] 2021-01-06 15:30:00 2021-01-06 15:30:00 Outpatient [facility] [id number] [facility] 2021-01-05 14:30:00 2021-01-05 23:59:00 Outpatient [facility] [id number] [facility] 2021-01-05 14:30:00 2021-01-05 23:59:00 Hospital Encounter Stella NapolesFormerly [facility] EHSHAM?[facility] 1.2.840.114 350.1.13.10 4.2.7.2.686 [id number] [facility] 2021-01-05 14:30:00 2021-01-05 14:30:00 [facility] [id number] [facility] 2021-01-05 14:30:00 2021-01-05 14:30:00 Outpatient [facility] [id number] [facility] 2021-01-05 14:08:27 2021-01-05 14:23:27 Chart Writer Visit Lab, [facility] Stella NapolesCritical access hospital?[facility] 1.2.840.114 350.1.13.10 4.2.7.2.686 [id number] [facility] 2021-01-05 12:52:04 2021-01-05 14:06:37 Office Visit Stella NapolesCritical access hospital?[facility] 1.2.840.114 350.1.13.10 4.2.7.2.686 [id number] [facility] 2021-01-05 00:00:00 2021-01-05 00:00:00 Orders Only Doctor Unassigned, [place] [facility] 1.2.840.114 350.1.13.10 4.2.7.2.686 [id number] [id number] [facility] 2020-12-23 00:00:00 2020-12-23 00:00:00 Telephone Chema Dominguez [facility] 1.2.840.114 350.1.13.10 4.2.7.2.686 [id number] 220 [id number] [facility] 2020-12-12 09:00:00 2020-12-12 09:00:00 Outpatient [facility] [id number] [facility] 2020-11-25 16:00:00 2020-11-25 16:00:00 Outpatient [facility] [id number] [facility] 2020-11-21 11:00:00 2020-11-21 11:00:00 Outpatient [facility] [id number] [facility] 2020-10-28 00:00:00 2020-10-28 00:00:00 [facility]phone [facility] 1.2840.114 350.1.13.10 4.2.7.2.686 [id number] 220 [id number] [facility] 2020-10-28 00:00:00 2020-10-28 00:00:00 [facility] 1.2840.114 350.1.13.10 4.2.7.2.686 [id number] 220 [id number] [facility] 2020-10-24 00:00:00 2020-10-24 00:00:00 [facility]ia [facility] 1.2840.114 350.1.13.10 4.2.7.2.686 [id number] 220 [id number] [facility] 2020-10-20 00:00:00 2020-10-20 00:00:00 [facility] 1.2840.114 350.1.13.10 4.2.7.2.686 [id number] 220 [id number] [facility] 2020-10-20 00:00:00 2020-10-20 00:00:00 [facility] 1.2840.114 350.1.13.10 4.2.7.2.686 [id number] 220 [id number] [facility] 2020-07-24 00:00:00 2020-07-24 00:00:00 [facility] 1.2840.114 350.1.13.10 4.2.7.2.686 [id number] 220 [id number] [facility] 2020-06-25 13:10:00 2020-06-25 13:10:00 [facility] [id number] [facility] 2020-06-04 13:00:00 2020-06-04 13:00:00 [facility]patient [facility] [id number] [facility] 2020-05-25 15:00:00 2020-05-25 15:00:00 Outpatient R [facility] [id number] [facility] 2020-05-13 10:59:16 2020-05-13 12:12:32 Office Visit Chema Dominguez [facility] 1.2.840.114 350.1.13.10 4.2.7.2.686 [id number] 220 [id number] [facility] 2020-05-13 11:00:00 2020-05-13 11:00:00 Outpatient R [facility] [id number] [facility] 2020-05-10 14:30:00 2020-05-10 14:30:00 Outpatient [facility] [id number] [facility] 2020-04-24 00:00:00 2020-04-24 00:00:[address] [facility] 1.2.840.114 350.1.13.10 4.2.7.2.686 [id number] 220 [id number] [facility] 2020-02-15 00:00:00 2020-02-15 00:00:[address] [facility] 1.2.840.114 350.1.13.10 4.2.7.2.686 [id number] 220 [id number] [facility] 2020-02-11 00:00:00 2020-02-11 00:00:00 Refill Fiona Felix [facility] 1.2840.114 350.1.13.10 4.2.7.2.686 [id number] 220 [id number] [facility] 2020-01-29 09:00:00 2020-01-29 09:00:00 Outpatient R [facility] [id number] [facility] 2020-01-28 00:00:00 2020-01-28 00:00:00 Orders Only Fiona Felix [facility] 1.2840.114 350.1.13.10 4.2.7.2.686 [id number] [id number] [facility] 2020-01-27 00:00:00 2020-01-27 00:00:[address] [facility] 1.2.840.114 350.1.13.10 4.2.7.2.686 [id number] 220 [id number] [facility] 2019-12-28 00:00:00 2019-12-28 00:00:[address] [facility] 1.2.840.114 350.1.13.10 4.2.7.2.686 [id number] 220 [id number] [facility] 2019-12-28 00:00:00 2019-12-28 00:00:[address] [facility] 1.2.840.114 350.1.13.10 4.2.7.2.686 [id number] 220 [id number] 2019-07-28 08:45:00 2019-07-28 08:45:00 Outpatient R [facility] [id number] [facility] 2019-07-24 08:17:11 2019-07-24 11:47:51 Telemedici ne Visit Chema Dominguez [facility] 1.2840.114 350.1.13.10 4.2.7.2.686 [id number] 220 [id number] [facility] 2019-07-24 08:17:11 2019-07-24 11:47:51 Telemedici ne Visit Chema Dominguez [facility] 1.2840.114 350.1.13.10 4.2.7.2.686 [id number] 220 [id number] 2019-07-24 10:30:00 2019-07-24 10:30:00 Outpatient R [facility] [id number] [facility] 2019-07-10 00:00:00 2019-07-10 00:00:00 Refill [facility] 1.840.114 350.1.13.10 4.2.7.2.686 [id number] 220 [id number] [facility] 2019-07-10 00:00:00 2019-07-10 00:00:00 Refill [facility] 1.2840.114 350.1.13.10 4.2.7.2.686 [id number] 220 [id number] 2019-05-20 08:37:33 2019-05-20 13:26:38 Telemedici ne Visit Isidro [facility] 1.2840.114 350.1.13.10 4.2.7.2.686 [id number] 220 [id number] [facility] 2019-05-20 08:37:33 2019-05-20 13:26:38 Telemedici ne Visit Isidro [facility] 1.2840.114 350.1.13.10 4.2.7.2.686 [id number] 220 [id number] 2019-05-20 09:30:00 2019-05-20 09:30:00 Outpatient R [facility] [id number] [facility] 2019-05-20 00:00:00 2019-05-20 00:00:00 Telephone [facility] 1.2.840.114 350.1.13.10 4.2.7.2.686 [id number] 220 [id number] [facility] 2019-05-20 00:00:00 2019-05-20 00:00:00 Telephone [facility] 1.2.840.114 350.1.13.10 4.2.7.2.686 [id number] 220 [id number] 2019-05-19 14:15:00 2019-05-19 14:15:00 Outpatient R [facility] [id number] [facility] 2019-05-17 00:00:00 2019-05-17 00:00:00 Refill [facility] 1.2.840.114 350.1.13.10 4.2.7.2.686 [id number] 220 [id number] [facility] 2019-05-17 00:00:00 2019-05-17 00:00:00 Refill Nicole Andrea [facility] 1.2.840.114 350.1.13.10 4.2.7.2.686 [id number] 220 [id number] [facility] 2019-05-17 00:00:00 2019-05-17 00:00:00 Refill [facility] 1.2.840.114 350.1.13.10 4.2.7.2.686 [id number] 220 [id number] 2019-05-17 00:00:00 2019-05-17 00:00:00 Refill Nicole Andrea [facility] Building 1.2.840.114 350.1.13.10 4.2.7.2.686 [id number] 220 [id number] 2019-05-15 00:00:00 2019-05-15 00:00:00 Refill [facility] 1.2.840.114 350.1.13.10 4.2.7.2.686 [id number] 220 [id number] [facility] 2019-05-15 00:00:00 2019-05-15 00:00:00 Refill [facility] 1.2.840.114 350.1.13.10 4.2.7.2.686 [id number] 220 [id number] 2019-04-28 00:00:00 2019-04-28 00:00:00 Refill Zully, Nicole [facility] 1.2840.114 350.1.13.10 4.2.7.2.686 [id number] 220 [id number] [facility] 2019-04-28 00:00:00 2019-04-28 00:00:00 Refill Andrea, Nicole [facility] 1.2.840.114 350.1.13.10 4.2.7.2.686 [id number] 220 [id number] 2019-04-24 00:00:00 2019-04-24 00:00:00 Refill [facility] 1.2.840.114 350.1.13.10 4.2.7.2.686 [id number] 220 [id number] [facility] 2019-04-24 00:00:00 2019-04-24 00:00:00 Refill [facility] 1.2.840.114 350.1.13.10 4.2.7.2.686 [id number] 220 [id number] 2019-04-12 21:42:00 2019-04-12 21:42:00 Outpatient [facility] [id number] [facility] 2019-04-09 10:45:00 2019-04-09 10:45:00 Outpatient [facility] [id number] [facility] 2019-04-03 00:00:00 2019-04-03 00:00:00 Refill Fiona Felix [facility] 1.2.840.114 350.1.13.10 4.2.7.2.686 [id number] 220 [id number] [facility] 2019-04-03 00:00:00 2019-04-03 00:00:00 Refill Fiona Felix [facility] 1.2.840.114 350.1.13.10 4.2.7.2.686 [id number] 220 [id number] 2018-11-05 15:00:00 2018-11-05 15:00:00 Outpatient [facility] [id number] [facility] 2018-10-30 00:00:00 2018-10-30 00:00:00 Telephone [facility] 1.2.840.114 350.1.13.10 4.2.7.2.686 [id number] 220 [id number] [facility] 2018-10-30 00:00:00 2018-10-30 00:00:00 Telephone [facility] 1.2.840.114 350.1.13.10 4.2.7.2.686 [id number] 220 [id number] 2018-09-19 00:00:00 2018-09-19 00:00:00 Refill Nicole Andrea [facility] 1.2.840.114 350.1.13.10 4.2.7.2.686 [id number] 220 [id number] [facility] 2018-09-19 00:00:00 2018-09-19 00:00:00 Nicole Zaidi [facility] 1.2.840.114 350.1.13.10 4.2.7.2.686 [id number] 220 [id number] 2018-08-06 11:09:00 2018-08-06 11:09:00 [facility] [id number] [facility] 2018-04-23 01:12:00 2018-04-23 01:12:00 Outpatient [facility] [id number] [facility] 2018-04-22 16:00:00 2018-04-22 16:00:00 Outpatient [facility] [id number] [facility] 2017-10-29 09:06:00 2017-10-29 09:06:00 Outpatient [facility] [id number] [facility] 2017-10-25 23:08:00 2017-10-25 23:08:00 Outpatient [facility] [id number] [facility] 2017-10-25 15:00:00 2017-10-25 15:00:[address] [facility] [id number] [facility] Results Test Description Test Time Test Comments Results Result Co mments Source [facility] W/O SPECIFIC [id number] 21:40:00* Test Item Value Reference Range Interpretation Comme nts POCT PH U (test code = 3254) 5 mg/dl 5-8 POCT U LEUK EST (test code = 3263) negative Negative - Negative POCT U NIT (test code = 3262) negative Negative - Negati ve POCT U PROT (test code = 3259) negative Negative - Negat harvey POCT U GLU (test code = 3256) negative Negative - Negati ve POCT U KETONE (test code = 3258) negative Negative - Neg ative POCT U BLD (test code = 3257) negative Negative - Negati ve [facility]2023-07-24 04:53:45* Test Item Value Reference Range Interpretation Comme nts MAGNESIUM (test code = 4135906864) 2.1 mg/dL 1.7-2.4 Lab Interpretation (test cod e = 65249-0) Normal [facility]OLIC PAN[facility] (96268)2022-09-17 04:53:25* Test Item Value Reference Range Interpretation Comme nts NA (test code = 3493796474) 142 mmol/L 135-145 K (test code = 9372486875) 4.0 mmol/L 3.5-5.0 CL (test code = 1297612443) 113 mmol/L 98-108 H CO2 TOTAL (test code = 1494222235) 26 mmol/L 23-31 AGAP (test code = 6008728133) 3 2-16 BUN (test code = 3447001250) 17 mg/dL 7-23 GLUCOSE (test code = 7376484318) 83 mg/dL 70-110 CREATININE (test code = 0308645374) 0.75 mg/dL 0.50-1.04 TOTAL BILI (test code = 8745076927) 0.3 mg/dL 0.1-1.1 CALCIUM (test code = 3939962560) 8.2 mg/dL 8.6-10.6 L T PROTEIN (test code = 2075706773) 6.6 g/dL 6.3-8.2 ALBUMIN (test code = 4330848204) 3.7 g/dL 3.5-5.0 ALK PHOS (test code = 8753891195) 68 U/L 34-122 ALTv (test code = 1742-6) 10 U/L 5-35 AST(SGOT) (test code = 1455987934) 12 U/L 13-40 L eGFR (test code = 4613862113) 84.3 mL/min/1.73m2 GRIFFIN (test code = GRIFFIN) Association of [...] or abnormalities in imaging tests). Lab Interpretation (test code = 43127-1) Abnormal [facility] [id number] 04:46:00* Test Item Value Reference Range Interpretation Comme nts POCT PREG (test code = 1605) Negative On board controls acceptable with C Line (test code = 3574) Yes POCT PREG LOT # (test code = 3571) [id number] POCT PREG TEST DATE ( test code = 3576) 02-07-2024 Lab Interpretation (test cod e = 55926-9) Normal [facility] WITH [id number] 04:41:49* Test Item Value Reference Range Interpretation Comme nts WBC (test code = 6690-2) 7.73 See_Comment [Automated [employer]] The system which generated this result transmitted reference range: 4.30 - 11.10 10*3/?L. The reference range was not used to interpret this result as normal/abnormal. RBC (test code = 789-8) 3.69 See_Comment L [Automated [employer]] The system which generated this result transmitted reference range: 3.93 - 5.25 10*6/?L. The reference range was not used to interpret this result as normal/abnormal. HGB (test code = 718-7) 10.3 g/dL 11.6-15.0 L HCT (test code = 4544-3) 32.3 % 35.7-45.2 L MCV (test code = 787-2) 87.5 fL 80.6-95.5 MCH (test code = 785-6) 27.9 pg 25.9-32.8 MCHC (test code = 786-4) 31.9 g/dL 31.6-35.1 RDW-SD (test code = 85758-0) 45.2 fL 39.0-49.9 RDW-CV (test code = 788-0) 14.3 % 12.0-15.5 PLT (test code = 777-3) 204 See_Comment [Automated messa ge] The system which generated this result transmitted reference range: 166 - 358 10*3/?L. The reference range was not used to interpret this result as normal/abnormal. MPV (test code = 92302-9) 10.2 fL 9.5-12.9 NRBC/100 WBC (test code = 5436091066) 0.0 See_Comment [Automated [employer]] The system which generated this result transmitted reference range: 0.0 - 10.0 /100 WBCs. The reference range was not used to interpret this result as normal/abnormal. NRBC x10^3 (test code = 3605991974) See_Comment [Automated messa ge] The system which generated this result transmitted reference range: 10*3/?L. The reference range was not used to interpret this result as normal/abnormal. GRAN MAT (NEUT) % (test code = 770-8) 70.4 % IMM GRAN % (test code = 0056525361) 0.50 % LYMPH % (test code = 736-9) 19.8 % MONO % (test code = 5905-5) 7.6 % EOS % (test code = 713-8) 1.4 % BASO % (test code = 706-2) 0.3 % GRAN MAT x10^3(ANC) (test code = 5709551413) 5.44 10*3/uL 1.88-7.09 IMM GRAN x10^3 (test code = 5868344396) 0.04 10*3/uL 0.00-0.06 LYMPH x10^3 (test code = 731-0) 1.53 10*3/uL 1.32-3.29 MONO x10^3 (test code = 742-7) 0.59 10*3/uL 0.33-0.92 EOS x10^3 (test code = 711-2) 0.11 10*3/uL 0.03-0.39 BASO x10^3 (test code = 704-7) 0.01-0.07 Lab Interpretation (test code = 96707-2) Abnormal [facility] (88513)2022-09-05 04:19:50* Test Item Value Reference Range Interpretation Comme nts NA (test code = 5675623095) 138 mmol/L 135-145 K (test code = 6060077073) 4.5 mmol/L 3.5-5.0 CL (test code = 7177795646) 107 mmol/L 98-108 CO2 TOTAL (test code = 7957543283) 26 mmol/L 23-31 AGAP (test code = 3087314250) 5 2-16 BUN (test code = 5627321096) 13 mg/dL 7-23 GLUCOSE (test code = 9396042987) 97 mg/dL 70-110 CREATININE (test code = 3822037508) 0.71 mg/dL 0.50-1.04 TOTAL BILI (test code = 4519706330) 0.6 mg/dL 0.1-1.1 CALCIUM (test code = 8753266234) 9.1 mg/dL 8.6-10.6 T PROTEIN (test code = 8838290041) 7.1 g/dL 6.3-8.2 ALBUMIN (test code = 5240002763) 4.2 g/dL 3.5-5.0 ALK PHOS (test code = 7063930829) 84 U/L 34-122 ALTv (test code = 1742-6) 15 U/L 5-35 AST(SGOT) (test code = 2301485581) 14 U/L 13-40 eGFR (test code = 6517467673) 89.8 mL/min/1.73m2 GRIFFIN (test code = GRIFFIN) Association of [...] or urine or abnormalities in imaging tests). [facility] WITH [id number] 03:49:48* Test Item Value Reference Range Interpretation Comme nts WBC (test code = 6690-2) 8.89 See_Comment [Automated [employer]] The system which generated this result transmitted reference range: 4.30 - 11.10 10*3/?L. The reference range was not used to interpret this result as normal/abnormal. RBC (test code = 789-8) 4.01 See_Comment [Automated [employer]] The system which generated this result transmitted reference range: 3.93 - 5.25 10*6/?L. The reference range was not used to interpret this result as normal/abnormal. HGB (test code = 718-7) 11.1 g/dL 11.6-15.0 L HCT (test code = 4544-3) 36.0 % 35.7-45.2 MCV (test code = 787-2) 89.8 fL 80.6-95.5 MCH (test code = 785-6) 27.7 pg 25.9-32.8 MCHC (test code = 786-4) 30.8 g/dL 31.6-35.1 L RDW-SD (test code = 05309-6) 46.2 fL 39.0-49.9 RDW-CV (test code = 788-0) 14.1 % 12.0-15.5 PLT (test code = 777-3) 299 See_Comment [Automated [employer] ge] The system which generated this result transmitted reference range: 166 - 358 10*3/?L. The reference range was not used to interpret this result as normal/abnormal. MPV (test code = 73952-0) 10.5 fL 9.5-12.9 NRBC/100 WBC (test code = 5792168973) 0.0 See_Comment [Automated [employer]] The system which generated this result transmitted reference range: 0.0 - 10.0 /100 WBCs. The reference range was not used to interpret this result as normal/abnormal. NRBC x10^3 (test code = 1965551889) See_Comment [Automated [employer] ge] The system which generated this result transmitted reference range: 10*3/?L. The reference range was not used to interpret this result as normal/abnormal. GRAN MAT (NEUT) % (test code = 770-8) 83.0 % IMM GRAN % (test code = 2974763161) 0.60 % LYMPH % (test code = 736-9) 10.5 % MONO % (test code = 5905-5) 4.9 % EOS % (test code = 713-8) 0.8 % BASO % (test code = 706-2) 0.2 % GRAN MAT x10^3(ANC) (test code = 5514575899) 7.38 10*3/uL 1.88-7.09 H IMM GRAN x10^3 (test code = 0665952076) 0.05 10*3/uL 0.00-0.06 LYMPH x10^3 (test code = 731-0) 0.93 10*3/uL 1.32-3.29 L MONO x10^3 (test code = 742-7) 0.44 10*3/uL 0.33-0.92 EOS x10^3 (test code = 711-2) 0.07 10*3/uL 0.03-0.39 BASO x10^3 (test code = 704-7) 0.01-0.07 Lab Interpretation (test code = 73679-9) Abnormal [facility] [id number] 12:22:00* Test Item Value Reference Range Interpretation Comme nts POCT PREG (test code = 1605) Negative On board controls acceptable with C Line (test code = 3574) Yes POCT PREG LOT # (test code = 3575) [id number] POCT PREG TEST DATE ( test code = 3576) 74325 Lab Interpretation (test cod e = 78271-3) Normal [facility] [id number] 12:22:00* Test Item Value Reference Range Interpretation Comme nts POCT PREG (test code = 1605) Negative On board controls acceptable with C Line (test code = 3574) Yes POCT PREG LOT # (test code = 3575) [id number] POCT PREG TEST DATE ( test code = 3576) 61753 Lab Interpretation (test cod e = 87157-1) Normal [facility]. METABOLIC PANEL (31712)2022-07-28 22:53:38* Test Item Value Reference Range Interpretation Comme nts NA (test code = 8376741773) 139 mmol/L 135-145 K (test code = 6107696965) 3.6 mmol/L 3.5-5.0 CL (test code = 8004684586) 107 mmol/L 98-108 CO2 TOTAL (test code = 2422731463) 25 mmol/L 23-31 AGAP (test code = 1213951098) 7 2-16 BUN (test code = 2644958542) 14 mg/dL 7-23 GLUCOSE (test code = 0032473152) 97 mg/dL 70-110 CREATININE (test code = 2149893540) 0.73 mg/dL 0.50-1.04 TOTAL BILI (test code = 4374748124) 0.6 mg/dL 0.1-1.1 CALCIUM (test code = 9764381382) 9.0 mg/dL 8.6-10.6 T PROTEIN (test code = 8913627864) 6.8 g/dL 6.3-8.2 ALBUMIN (test code = 0411578823) 4.1 g/dL 3.5-5.0 ALK PHOS (test code = 1082218162) 75 U/L 34-122 ALTv (test code = 1742-6) 13 U/L 5-35 AST(SGOT) (test code = 0267642311) 12 U/L 13-40 L eGFR (test code = 1015338945) 87.0 mL/min/1.73m2 GRIFFIN (test code = GRIFFIN) Association of [...] or abnormalities in imaging tests). Lab Interpretation (test code = 76156-9) Abnormal [facility] WITH [id number] 22:41:58* Test Item Value Reference Range Interpretation Comme nts WBC (test code = 6690-2) 7.61 See_Comment [Automated messa ge] The system which generated this result transmitted reference range: 4.30 - 11.10 10*3/?L. The reference range was not used to interpret this result as normal/abnormal. RBC (test code = 789-8) 4.07 See_Comment [Automated messa ge] The system which generated this result transmitted reference range: 3.93 - 5.25 10*6/?L. The reference range was not used to interpret this result as normal/abnormal. HGB (test code = 718-7) 12.0 g/dL 11.6-15.0 HCT (test code = 4544-3) 35.9 % 35.7-45.2 MCV (test code = 787-2) 88.2 fL 80.6-95.5 MCH (test code = 785-6) 29.5 pg 25.9-32.8 MCHC (test code = 786-4) 33.4 g/dL 31.6-35.1 RDW-SD (test code = 70198-9) 43.9 fL 39.0-49.9 RDW-CV (test code = 788-0) 13.8 % 12.0-15.5 PLT (test code = 777-3) 225 See_Comment [Automated messa ge] The system which generated this result transmitted reference range: 166 - 358 10*3/?L. The reference range was not used to interpret this result as normal/abnormal. MPV (test code = 44850-0) 9.7 fL 9.5-12.9 NRBC/100 WBC (test code = 6504209258) 0.0 See_Comment [Automated [employer] ssage] The system which generated this result transmitted reference range: 0.0 - 10.0 /100 WBCs. The reference range was not used to interpret this result as normal/abnormal. NRBC x10^3 (test code = 0567619246) See_Comment [Automated messa ge] The system which generated this result transmitted reference range: 10*3/?L. The reference range was not used to interpret this result as normal/abnormal. GRAN MAT (NEUT) % (test code = 770-8) 81.5 % IMM GRAN % (test code = 6226416117) 0.40 % LYMPH % (test code = 736-9) 11.0 % MONO % (test code = 5905-5) 6.3 % EOS % (test code = 713-8) 0.5 % BASO % (test code = 706-2) 0.3 % GRAN MAT x10^3(ANC) (test code = 0283770772) 6.20 10*3/uL 1.88-7.09 IMM GRAN x10^3 (test code = 3668041012) 0.03 10*3/uL 0.00-0.06 LYMPH x10^3 (test code = 731-0) 0.84 10*3/uL 1.32-3.29 L MONO x10^3 (test code = 742-7) 0.48 10*3/uL 0.33-0.92 EOS x10^3 (test code = 711-2) 0.04 10*3/uL 0.03-0.39 BASO x10^3 (test code = 704-7) 0.01-0.07 Lab Interpretation (test code = 67407-4) Abnormal [facility] HEMOGLOBIN A1C [id number] 17:58:00* Test Item Value Reference Range Interpretation Comme [facility] POCT HBA1C (test code = 4548-4) 4.8 % 4-6 [facility] HEMOGLOBIN A1C SMSA2800-37-55 17:58:00* Test Item Value Reference Range Interpretation Comme [facility] POCT HBA1C (test code = 4548-4) 4.8 % 4-6 [facility] Notes Date/Time Note Provider Source 2023-05-27 09:15:50 N246F6cpkXPzpt4XCDXmUYDaalNiJeuzRAU bdzNIqgSDWwA8zmVmTnK+[facility]/7AI86713-7 05-26T09:15:50 Last Refilled:LEVOTHYROXINE 125 mcg tablet 90 tablet 1 12/02/2022 -- NoSig: TAKE 1 TABLET BY MOUTH EVERY DAY IN THE MORNINGSent to pharmacy as: levothyroxine 125 mcg tablet (SYNTHROID)Class: eRXRoute: OralOrder: [id number]/Time Signed: 12/02/2022 08:40E-Prescribing Status: Receipt confirmed by pharmacy (12/02/2022 8:40 AM CDT)Recent VisitsDate Type Provider Dept1 Office Visit Faye Napoles FNP [facility]09/04/22 Office Visit Faye Napoles FNP [facility] Fam MedShowing recent visits within past 540 days with a meds authorizing provider and meeting all other requirementsFuture AppointmentsNo visits were found meeting these conditions.Showing future appointments within next 150 days with a meds authorizing provider and meeting all other requirements 33898-4Vjbpddbea encounter LmxhCQ6019-44-10G06:16:41Telephone encounter NoteTXT1.2.840.522836.1.13.104.2.7. 2.522713|[id number] for patient mreh86276-2AxoaFYUYODEATLLWdpkbfmwz C-CDA narrative [id number] Myers[address] Kp[id number] 4ZEAERSKLXRTLUKJGODIPSS3183-71-06Y7 9:16:411.2.840.407208.1.72.3.15|1.2 .840.186455.1.13.104.2.7.2.727879_2 [id number] Laxmi Parra [facility] 2023-03-04 14:21:21 FLmg6lPj+6IQwTwaCkxnSVSfKUCKhjF2l4N Zaar5wtmvdfSmzAnSA5he0+/DN6O39025-4 03-04T14:21:21 Images from the original note were not included.Last Refilled: 03/04/22Notes:[facility] - [address]: Vfpxin VisitsDate Type Provider Dept1 Office Visit Faye Napoles FNP [facility]09/04/22 Office Visit Faye Napoles FNP [facility] Fam MedShowing recent visits within past 540 days with a meds authorizing provider and meeting all other requirementsFuture AppointmentsDate Type Provider Dept03/07/23 Appointment Faye Napoles FNP [facility] Fam MedShowing future appointments within next 150 days with a meds authorizing provider and meeting all other requirementstopiramate 25 mg tabletThe original prescription was reordered on 03/04/2023 by Percy Andrade MD. Renewing this prescription may not be appropriate.Possible duplicate: Hover to review recent actions on this medicationSig: Take 2 tablets by mouth in the morning.Disp: 90 tablet Refills: 1Start: 4Class: eRXNon-formulary For: Morbid obesity with body mass index (BMI) of 40.0 or higher, Nonintractable chronic migraineLast ordered: 1 month ago (01/28/2023) by DANIEL Rubyeurology: Anticonvulsants-Topiramate Brucwe0303/02/2023 06:10 PMProtocol Details status completedManual Review: Forward refill prescription to provider if patient has had any seizure activity or since last office visitTopiramate in normal range and within 360 daysValid encounter within last 12 monthsTo be filled at: [id number] [place] [place] - [address] [address]-2Pqckxamss encounter JvdgEC9247-25-65E40:22:36Telephone encounter NoteTXT1.2.840.138886.1.13.104.2.7. 2.174301|[id number] for patient nqic35099-7TxezQZSWBTEQLYMYlgzbzrtw C-CDA narrative [id number] L Corley [address] Fg[id number] 8MFOGJAEMNJWBNTGTJFAHMH9829-26-15H6 4:22:361.2.840.121878.1.72.3.15|1.2 .840.912490.1.13.104.2.7.2.727879_1 [id number] Alexus Corley [facility] 2022-10-22 13:49:05 Kx6GE5WEd1ml+RHtVNQ2IymbSir1rWi8Sot t8hZP9i8y/3dgwJ61WUWKUqmM8NBG1013-3 3:49:05 Images from the original note were not included.Requested Renewals topiramate 25 mg tablet Sig: Take 2 tablets by mouth in the morning. Disp: 90 tablet Refills: 1 Start: 10/22/2022 Class: eRX Non-formulary For: Morbid obesity with body mass index (BMI) of 40.0 or higher, Nonintractable chronic migraine Last ordered: 1 month ago (09/04/2022) by JUANY Ruby Neurology: Anticonvulsants-Topiramate Failed 10/22/2022 01:37 PM Protocol Details status completed Manual Review: Forward refill prescription to provider if patient has had any seizure activity or since last office visit Topiramate in normal range and within 360 days Valid encounter within last 12 months To be filled at: [facility]/pharmacy #[id number] AT [facility] Recent VisitsDate Type Provider Dept 09/04/22 Office Visit Faye Napoles FNP [facility] Showing recent visits within past 540 days with a meds authorizing provider and meeting all other requirementsFuture AppointmentsDate Type Provider Dept 03/07/23 Appointment Faye Napoles FNP [facility] Showing future appointments within next 150 days with a meds authorizing provider and meeting all other requirements 96927-5Rupyqzpfe encounter UuiiSV8446-53-05K43:50:04Telephone encounter NoteTXT1.2.840.517101.1.13.104.2.7. 2.836362|[id number] for patient [id number] M Fisher [id number] 6RVLJLCOHARZUAGNPCAUOJT2480-55-78I0 3:50:041.2.840.327745.1.72.3.15|1.2 .840.423443.1.13.104.2.7.2.727879_1 [id number] Kaye Moore [facility] 2022-10-18 16:00:38 ylmIpak/PJM6n2eTuyNi0QkV2og0gJ9+ozS JvfQaCs7/xoWFrTbA4PtQbgA9cM2F2324-4 6:00:38 [facility] 08/17/22NOV 01/21/23Per [facility] note:-- Continue Phentermine 37.5 mg daily, tolerates well, weight remains unchanged from [facility] at 254 lbs. 16153-0Llrsoqeka encounter PhqrUT4983-64-25P59:03:47Telephone encounter NoteTXT1.2.840.927640.1.13.104.2.7. 2.144527|[id number] for patient esil66440-8KbyuSQ088386490Zogo D Jetton [id number] 7JQOQPAVOFYZKZJKIWLCQMA1666-14-94M9 6:03:471.2.840.591672.1.72.3.15|1.2 .840.118892.1.13.104.2.7.2.727879_1 [id number] Bibiana Rocha LVN [facility] 2022-10-18 15:44:34 iAH0k/QLT4+Zi5AqffxA/TfhWQVG5M4fdts kRygBFTAUVu2s6CbsZvCZ9mTAmy7C4586-2 5:44:34 Pt is requesting a refill on RX. phentermine 37.5 mg capsule 40199-8Angsxifwy encounter JsylZS5956-98-91H51:49:08Telephone encounter NoteTXT1.2.840.551989.1.13.104.2.7. 2.333794|[id number] for patient ivnv27135-7PwhmXW126603743Jblupxiqg Buendia[address] MgngHiajwxlsoSbvqghyorEWRZ681857163 8XCZYBHVYMEQOQFMAOTSGTQ7863-29-90J4 5:49:081.2.840.037914.1.72.3.15|1.2 .840.370612.1.13.104.2.7.2.727879_1 [id number] Yvette Senior [facility] 2022-10-15 11:18:46 /wxmZsu313yJnQxK4yA6LOGPEMK1XCMIMsL 5EdwukYgwc9ooN0srOa00Nd4aGDvi6170-5 1:18:46 Images from the original note were not included.Last Refilled: levothyroxine 125 mcg tablet Sig: Take 1 tablet by mouth every morning. Disp: 45 tablet Refills: 0 Start: 10/15/2022 Class: eRX Non-formulary For: Postablative hypothyroidism Last ordered: 1 month ago (09/05/2022) by JUANY Ruby Endocrinology: Hypothyroid Agents Failed 10/15/2022 10:46 AM Protocol Details Manual Review: ENT providers forward refill request to PCP. TSH in normal range and within 360 days Valid encounter within last 12 months To be filled at: [facility]/pharmacy #[id number] - [place], [place] - [address] AT [facility] Recent VisitsDate Type Provider Dept 09/04/22 Office Visit Faye Napoles FNP [facility] Showing recent visits within past 540 days with a meds authorizing provider and meeting all other requirementsFuture AppointmentsDate Type Provider Dept 03/07/23 Appointment Faye Napoles FNP [facility] Showing future appointments within next 150 days with a meds authorizing provider and meeting all other requirements 00091-3Bcylbzdzx encounter CdweZB5976-07-66Y70:21:13Telephone encounter NoteTXT1.2.840.488211.1.13.104.2.7. 2.935144|[id number] for patient ahka31884-6KoxiOQ525124548Sttxrx J Medina [address] VqwmUomryaydnIwccvxyysFJXE189476641 2AZDFLCMHJPQEKHEHBCVZQL5259-20-94Q1 1:21:131.2.840.754744.1.72.3.15|1.2 .840.373678.1.13.104.2.7.2.727879_1 [id number] Lee Ann Kerns MA [facility] 2022-09-21 10:03:30 Xli2TInaZYMjkuWwA3gEZeWtdVcPT2i30ny X5icSUdGO8+5PWVdOdja4XWIGd9OM2827-4 09-21T10:03:[address] Hartman 09/24/22.Ramses Crowley RN 09/21/2022 10:03 AM 91570-4Nekciujai encounter TzlqVC0726-88-41Y65:03:55Telephone encounter NoteTXT1.2.840.029976.1.13.104.2.7. 2.882897|[id number] for patient kmck516585715Timwvjy Collins RN[id number] 4NKKWFVHWKLFCCOHTLEVQSK1873-60-62M3 0:03:551.2.840.225630.1.72.3.15|1.2 .840.201718.1.13.104.2.7.2.727879_1 [id number] Ramses Crowley [facility] 2022-09-20 16:59:30 FXKjGpM6FI0m0O4LrC3NlIvb8BJ5kLdQEIz rAe/kj8h341asWZKRh6elQCsuQQ1619-2 6:59:30 Patient notified of results from CT scan. Patient states that she continues to have pain that is not controlled. Patient concerned that last CT scan revealed inguinal hernias, but had prior CT scan in July and didn't show no hernias. Scheduled patient to follow-up with provider regarding scan results and unmanaged pain. Patient given ER precautions, appt scheduled.Peggy Mcneil RN 09/20/2022 4:59 PM 45951-1Bhbwhfduz encounter WslbGZ9156-18-09I57:00:10Telephone encounter NoteTXT1.2.840.497458.1.13.104.2.7. 2.893640|[id number] for patient qvlv577079243Jfxaszc Stahl RNUT[id number] 2ATCUCNPAYANGELIEEAGHYJ6141-55-63F5 7:00:101.2.840.183451.1.72.3.15|1.2 .840.387294.1.13.104.2.7.2.727879_1 [id number] Peggy Mcneil RN [facility] 2022-09-20 16:57:00 fkmPBZpg571IybJxxhWq+mQ4cP+a3wrN2X0 k0D+l+iUsMQVQj4+Anj2ld4LEWuKd8036-0 09-20T16:57:00 Patient notified of results from CT scan. Patient states that she continues to have pain that is not controlled. Had a fall went to ER, CT scan revealed inguinal hernias, but had prior CT scan in July and didn't show no hernias. Scheduled patient to follow-up with provider regarding scan results and unmanaged pain. Patient given ER precautions, appt scheduled.Peggy Mcneil RN 09/20/2022 4:59 PM 55940-2Oiljpjelv encounter BcfuNC9499-50-09N22:59:11Telephone encounter NoteTXT1.2.840.588123.1.13.104.2.7. 2.024639|[id number] for patient gljn117031152Deeavpm Stahl RN[address] Wcfa[id number] 8BHEAWJDTPVLVPNKRPFMMKU9171-02-21U0 6:59:111.2.840.688312.1.72.3.15|1.2 .840.347995.1.13.104.2.7.2.727879_1 [id number] Peggy Mcneil RN [facility] 2022-09-20 13:04:15 FbGY0kyqiIrkZzJ1NgWL2IULXGgflo3Dp/4 JGXWBbhvprukdzSsLiaV0+KzoTj708307-1 3:04:15 Returned patients call, no answer, unable to leave voicemail.Peggy Mcneil RN 09/20/2022 1:36 PM 03418-7Firvxbaho encounter SbruMH6724-24-00T90:36:18Telephone encounter NoteTXT1.2.840.018681.1.13.104.2.7. 2.835566|8509310651WRKwhuyyffw for patient [id number] 8UDYALAVGSRGIVWBFEFDFGZ9154-67-78S8 3:36:181.2.840.964590.1.72.3.15|1.2 .840.816224.1.13.104.2.7.2.727879_1 [id number] [facility] 2022-09-20 10:58:59 NQtnQf6iloSPglssQh0nqJV9kANrJRi3t0I xlaRE0abasi4FibFjdB81QojR+NTe2303-8 0:58:59 PT called and wanted to know what the next step going forward is going to be now that's she has been verified a hernia?Please advise 11710-7Xixyfonym encounter EdqlPI7393-94-41F04:00:27Telephone encounter NoteTXT1.2.840.595920.1.13.104.2.7. 2.141308|2180333345ZAShryeragu for patient dkyd478989381Wnbxhl G OrtizU[id number] 5JWLQURFOXRRFIPWDHRSZQM4629-95-37R1 1:00:271.2.840.555351.1.72.3.15|1.2 .840.921357.1.13.104.2.7.2.727879_1 [id number] Turner Amador [facility] 2022-09-20 07:58:03 /IFTDAwNCWbW3qpI7YlQtJsn3n3jveF3gPV Gz8MFe0B03Ewz+yIz/h49TWD62IMa1055-6 07:58:03 Sending patient ClassBughart message. 49613-8Iptfqbqxp encounter OmrfNT9725-94-25G78:00:40Telephone encounter NoteTXT1.2.840.687765.1.13.104.2.7. 2.906874|8210479594ZRAssanxzdz for patient wtyk306062679Itiz D Jetton [address] QpzcLldisisjeWkgredyhpOQXX295717673 1MIVNCZOIGMMSLXJHQKEJOR3765-82-90W8 8:00:401.2.840.470936.1.72.3.15|1.2 .840.231167.1.13.104.2.7.2.727879_1 [id number] Bibiana Rocha LVN [facility] 2022-09-19 14:38:54 kMMpCj5H2Cj0CqDTZ1JxVl7Pl/39HIBOUOf Whx62EggkEV3nOSiEr0WLy/op/+hO0722-8 09-19T14:38:[address] Dominguez, she is to double her dose for 3 days and then go back to her normal dose. 07649-7Lxbcoejxs encounter IhfjXS3705-38-10I67:47:48Telephone encounter NoteTXT1.2.840.039190.1.13.104.2.7. 2.927951|8746607036PUScowcensn for patient [id number] 5CFDRPEPJAGXNUNOWJEZGIB6840-24-25I3 4:47:481.2.840.554781.1.72.3.15|1.2 .840.972405.1.13.104.2.7.2.727879_1 [id number] [facility] 2022-09-19 10:17:55 lXiVUc9Ku/ZIfFsow+zJ5Ig1q0aBPUTysKJ i/TaxufXsZQq5xSj7KvACW+eNAlTZ0346-1 0:17:55 Spoke to patient. 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 She has been to [facility] ER and was given emergency dose of cortisol and fluids for dehydration. Still reports dizziness, dehydration, feeling like she might faint. Not sure what she needs to do. 31712-8Qwzzezhyd encounter PugpRB1745-81-88Q53:21:16Telephone encounter NoteTXT1.2.840.720090.1.13.104.2.7. 2.789908|[id number] for patient [id number] 7BTVXFUAXBNJUYYETRIANHD2864-57-31T1 0:21:161.2.840.877009.1.72.3.15|1.2 .840.660951.1.13.104.2.7.2.727879_1 [id number] [facility] 2022-09-19 09:54:11 iJN+N8GFrPFOLEHygLDfTC9ngT1riTOp8nk 5BNPF5D7AGCRHjbdwoPErvfu2ymC24761-1 09:54:11 Patient would like a nurse to call her marshall regarding her Addisons disease. 95738-2Ognpjrhyh encounter AopbHB4085-98-09K33:56:14Telephone encounter NoteTXT1.2.840.417684.1.13.104.2.7. 2.985658|0231502536WPKhowltntp for patient offk632516482Husrt K [id number] 8UFORLQRDPODAKOUJAZUVQV5017-21-96L1 9:56:141.2.840.884401.1.72.3.15|1.2 .840.342132.1.13.104.2.7.2.727879_1 [id number] Urszula Augustin [facility] 2022-09-18 16:47:44 dn2L5Edp27Srj1mZYp09WQAioNo9hZYPnDW iCMlebt2B1isIEukyPH4w8ERcfPG76335-7 09-18T16:47:44 Unable to leave voice mail due to inbox being full. 77019-4Rmmmdjaez encounter PcsmCO1998-06-81H47:48:02Telephone encounter NoteTXT1.2.840.676760.1.13.104.2.7. 2.324662|7109925100MGKexudeexc for patient [id number] 1COEJAAMQOZYIUQVKLPIHEE7803-79-62W9 6:48:021.2.840.616705.1.72.3.15|1.2 .840.846558.1.13.104.2.7.2.727879_1 [id number] [facility] 2022-09-18 10:25:44 wmLryvlk+WCgVQRcspUAPTkZRg7mxpntaFd 1T3wGtD67bSV3WmdIJCuxhVMK24Gb3721-2 7-25T10:25:[address] scan results. Do not describes any incisional hernias. Describes small bilateral inguinal hernias with fat. Small left ovarian cysts but the rest is ok.Likely patient is taking longer healing and [place] [address]-8Khvmzsrpl encounter SouoGQ5347-73-75B48:26:57Telephone encounter NoteTXT1.2.840.880674.1.13.104.2.7. 2.178265|[id number] for patient [address] RmwvNzvuriirvBzajlurumVCSS658305618 4MTOKWHFHSTILLTMVFLGGHQ8602-64-47B8 0:26:571.2.840.303524.1.72.3.15|1.2 .840.920590.1.13.104.2.7.2.727879_1 [id number] [facility] 2022-09-18 10:19:26 akOHNvmZtDuaakP/UGRkomyCwhVtQXV7hS0 BcYQzaRLSco14OoVfMV+eav7AR3pV1866-9 7-25T10:19:26 Spoke with patient, name and verified. Patient was calling to get the results from her recent CT. Informed patient since they were done in the ER, Dr. Hartman' name is not attached to the order so she probably hasn't viewed them. Informed patient I will route the message to her provider so she can take a look at her recent imaging and then let us know what the next steps will be. 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 18397-0Aumckfljs encounter GnpcUS6726-27-24A00:22:49Telephone encounter NoteTXT1.2.840.181161.1.13.104.2.7. 2.696282|9106638394VJQueapjqnh for patient [id number] 5PJKTEYYZUPYIDIXRKIFOQX4085-11-56V4 0:22:491.2.840.755522.1.72.3.15|1.2 .840.204488.1.13.104.2.7.2.727879_1 [id number] [facility] 2022-09-18 10:12:44 LtzlJy9LNTaR5KwjvlmNzyQN9qSqUJFfZPL WrZh7Mmvv4qmrBpaYmCrayiDHeDFq7093-1 09-18T10:12:44 Pt is wanting to discuss results with nurse and is wanting to know the next step. 14484-5Dfubjynwg encounter YvynVT4057-06-96I66:13:47Telephone encounter NoteTXT1.2.840.525489.1.13.104.2.7. 2.348126|[id number] for patient sjvj45796674Qurrt J Barnshaw[id number] 3NVJJJLNBYXJLQVFQBSRGMP2943-35-81U7 0:13:471.2.840.442740.1.72.3.15|1.2 .840.065916.1.13.104.2.7.2.727879_1 [id number] Bri Broussard [facility] 2022-09-17 03:14:00 ZD+pMzP78iX0ntx2PT0r0DHG0/TnubnjhQY 5WGWpGbjPebJ1NXW78WT8ItJ+tJZ04637-2 09-17T03:14:00 Awake, alert oriented X4, respiratory even and unlabored,skin w/d color appropriate for race, moves all ext well, pt encouraged to follow up with pcp and or return as neededPt given printed and verbal discharge instructions regarding Syncope, Dizziness, Pain of right hip, hx of [place]'s disease , patient verbralized understanding and signature obtained, patient denies any other concerns. Advised to seek medical attention for new/prolonged/worsening of symptoms, No adverse reaction to meds given in ER noted upon dischargePt ambulated to the [facility] with steady gait 04589-0Gfbwmdtpz department WjnfLN1268-93-92B40:07:01Emergency department NoteTXT1.2.840.152825.1.13.104.2.7. 2.458695|[id number] for patient [address] DepmH[id number] 2MRFPNZOBKSJPDOADVHBFUZ6756-80-80H5 4:07:011.2.840.814014.1.72.3.15|1.2 .840.249439.1.13.104.2.7.2.727879_1 [id number] [facility] 2022-09-17 01:03:03 w8NWzoZMtfG9oMp9Au1VKj5pdKZ3dhLQDNX 77q16Qk25LyI/mjEBUPkPTE2U5ZzP0143-5 09-17T01:03:03 Gave report to KESHAV Hernandez. [address]-6Knxpkbwfn[address] WyrqCG7205-37-81Y19:03:20[facility] NoteTXT1.2.840.372320.1.13.104.2.7. 2.311265|[id number] for patient ybvn578721787Nkoconqj M Felix [id number] 6FQIUKGWOJJNLQKQQELUKBG7738-24-62S8 1:03:201.2.840.804859.1.72.3.15|1.2 .840.857538.1.13.104.2.7.2.727879_1 [id number] Venessa Guzman RN [facility] 2022-09-17 01:03:03 OnJnzAwxE4JjyuGdvvPAit0vAw+T0J278Bp XUBns8j/Z5wnN7FRKSwJ0Kp0gfPp85097-2 01:03:03 Assumed care of patient, received report from KESHAV Echols. Visitor at bedside. Pt awaiting Ct-scan results. Will continue to monitor. [address]-6Mnoftfxky[address] HgdeBR4706-70-87Q13:04:49[facility] NoteTXT1.2.840.473730.1.13.104.2.7. 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 95835-9Mciedzuqr department Triage wokeNQ7894-74-95V43:24:19Emergency department Triage noteTXT1.2.840.359518.1.13.104.2.7. 2.581688|[id number] for patient qteg377040793Wqykzj J Hoot RN[address] Rm[id number] 4DRGADEJUOLEPZSJYSMOBNR1887-63-31G5 2:24:191.2.840.002123.1.72.3.15|1.2 .840.125593.1.13.104.2.7.2.727879_1 [id number] Cookie Hernandez RN [facility]
[2023-06-11] MEDS ORDERED: ONDANSETRON 4 MG/2 ML VIAL ONE (13:06)
[2023-06-11] MEDS ORDERED: MORPHINE 4 MG/ML SYR ONE (13:07)
[2023-06-11 13:18] LABS: Specific Gravity 1.027 (1.005-1.030); Urine Bacteria >50 /HPF (<20); Urine Bilirubin NEGATIVE (Negative); Urine Blood 1+ (Negative); Urine Clarity Extremely Turbid (Clear); Urine Color Yellow (Yellow); Urine Culture Reflex Order REFLEXED; Urine Glucose NEGATIVE (Negative); Urine Ketones TRACE (Negative); Urine Microscopic Reflex YN ORDER UMIC; Urine Mucus 3+ /HPF (None Seen); Urine Nitrite NEGATIVE (Negative); Urine Protein 1+ (Negative); Urine RBC 21-50 /HPF (None Seen); Urine Urobilinogen 1+ (Normal); Urine WBC >50 /HPF (<5)
[2023-06-11 13:19] LABS: Specific Gravity 1.027 (1.005-1.030)
[2023-06-11 13:45] LABS: Absolute Eosinophils 0.1 K/uL (0-0.5); Absolute Lymphocytes (CBC) 0.8 K/uL (0.7-4.9); Absolute Monocytes 0.3 K/uL (0.1-1.3); Absolute Neutrophil 4.3 K/uL (1.8-8.0); Basophils % 0.5 % (0-1.3); Eosinophils % 1.2 % (0-4.4); Hematocrit 35.3 % (36.0-45.0); Hemoglobin 11.4 g/dL (12.0-15.0); Lymphocytes % 13.9 % (15.3-44.8); MCH 27.5 pg (27.0-35.0); MCHC 32.4 g/dL (32.0-36.0); MCV 84.7 fL (80-100); MPV 7.7 fL (7.6-11.3); Monocytes % 5.7 % (3.3-12.3); Neutrophils % 78.7 % (41.7-73.7); Platelets 244 thou/uL (152-406); RBC Red Blood Cell Count 4.17 M/uL (3.86-4.86); Red Cell Distribution Width 15.3 % (12.1-15.2)
[2023-06-11 13:52] LABS: ALT/SGPT 11 U/L (13-56); Albumin 3.6 g/dL (3.4-5.0); Alkaline Phosphatase 79 U/L (45-117); BUN Blood Urea Nitrogen 11 mg/dL (7-18); Bicarbonate 27 mEq/L (21-32); Bilirubin Total 0.8 mg/dL (0.2-1.0); Globulin 3.7 g/dL (2.3-3.5); Glomerular Filtration Rate 107 ml/min (=/>90); Glucose Level 105 mg/dL (74-106); Lipase 17 U/L (13-75); Protein, Total 7.3 g/dL (6.4-8.2); Sodium Level 139 mEq/L (136-145)
[2023-06-11 13:53] LABS: AST/SGOT < 4 U/L (15-37)
[2023-06-11] MEDS ORDERED: CIPROFLOXACIN 400mg IV 400 MG/200 ML BAG IV ONE (14:17)
[2023-06-11] MEDS ORDERED: PROMETHAZINE INJ 25 MG/ML AMP ONE (14:17)
[2023-06-11] MEDS ORDERED: NA CHLORIDE 0.9% 50 ML ONE (14:21)
--- NOTE | 2023-06-11 14:43 | RAD REPORT ---
EXAM DESCRIPTION: CT - Abdomen Pelvis W Contrast - 06/11/2023 1:43 pm CLINICAL HISTORY: right flank/abd pain. Urinary frequency COMPARISON: Abdomen Pelvis W Contrast dated 09/24/2022; Abdomen Pelvis W Contrast dated 08/20/2021 ; Abdomen Pelvis W Contrast dated 05/13/2018; Abdomen Pelvis W Contrast dated 04/11/2018 TECHNIQUE: Thin cut axial CT imaging of the abdomen and pelvis was performed following intravenous a dministration of 100 mL Isovue 300. Multiplanar reformats were generated and reviewed. All CT scans are performed using dose optimization technique as appropriate and may include automated exposure control or mA/KV adjustment according to patient size. FINDINGS: No suspicious findings in the lung bases. The liver, spleen, and pancreas show no suspicious findings. Stable subcentimeter calcific focus jami g the inferior margin of the right liver lobe. Gallbladder was surgically removed. Stable mild common bile duct prominence and mild prominence of the central intrahepatic biliary radicles, may relate to reservoir effect following cholecystectomy. Please correlate with bilirubin profile. Symmetric renal function is seen with no hydronephrosis or suspicious renal mass. No dilated bowel loops or bowel wall thickening. Appendix is unremarkable. No free air, free fluid or inflammatory stranding. No hernia, mass or bulky lymphadenopathy. Left ovarian small cysts, largest measuring 2.8 cm. The urinary bladder is decompressed limiting evaluation. No suspicious bony findings. IMPRESSION: No acute intra-abdominal process. Stable findings as above.
[2023-06-11] MEDS ORDERED: NA CHLORIDE 0.9% 1,000 ML ONE (14:48)
--- NOTE | 2023-06-11 16:23 | EDPHYS ---
Physician Documentation [facility] Name: Lavinia Jarrett Age: 42 yrs Sex: Female : 1980 Arrival Date: 06/11/2023 Time: 12:44 Bed 10 Private MD: ED Physician Augustine Saucedo HPI: 06/10 13:04 This 42 yrs old Female presents to ER via Ambulatory with complaints of rn Urinary Problem. 13:04 The patient presents with urinary symptoms, dysuria, frequency, urgency. rn 13:06 Onset: The symptoms/episode began/occurred 2 day(s) ago. Modifying factors: The rn symptoms are alleviated by nothing, the symptoms are aggravated by nothing. Severity of symptoms: At their worst the symptoms were mild, in the emergency department the symptoms are unchanged. The patient has not experienced similar symptoms in the past. Patient reports suprapubic abdominal pain. 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 - Infectious Disease History:: Denies. - Social history:: Smoking status: Patient reports the use of cigarette tobacco products, denies chronic smoking, but will smoke occasionally, Reported history of juuling and/or vaping. - Family history:: not pertinent. - Hospitalizations: : No recent hospitalization is reported. ROS: 13:35 Constitutional: Negative for fever, chills, and weight loss, Cardiovascular: Negative rn for chest pain, palpitations, and edema, Respiratory: Negative for shortness of breath, cough, wheezing, and pleuritic chest pain, Abdomen/GI: Positive for lower abdominal pain Back: Positive for right flank pain : Positive for dysuria and increased urinary frequency MS/Extremity: Negative for injury and deformity, Exam: 13:35 Constitutional: This is a well developed, well nourished patient who is awake, alert, rn and in no acute distress. Cardiovascular: Regular rate and rhythm. No pulse deficits. Respiratory: No increased work of breathing, no retractions or nasal flaring. Abdomen/GI: Soft, mild suprapubic tenderness and right lower quadrant tenderness Back: No spinal tenderness. No costovertebral tenderness. Full range of motion. Vital Signs: 12:50 BP 138 / 85; Pulse 72; Resp 18 S; Temp 98.1(O); Pulse Ox 100% on R/A; Weight 107.95 kg as6 (R); Height 5 ft. 5 in. (R); Pain 9/10; 13:39 BP 134 / 80; Pulse 75; Resp 16; Pulse Ox 99% on R/A; Pain 9/10; tl4 14:04 BP 149 / 80; Pulse 55; Resp 16; Pulse Ox 100% on R/A; Pain 8/10; tl4 16:38 BP 129 / 75; Pulse 69; Resp 18; Temp 98(O); Pulse Ox 97% on R/A; Pain 6/10; tl4 12:50 Body Mass Index 39.60 (107.95 kg, 165.1 cm) as6 12:50 Pain Scale: Adult as6 13:39 Pain Scale: Adult tl4 14:04 Pain Scale: Adult tl4 16:38 Pain Scale: Adult tl4 MDM: 12:47 Patient medically screened. rn 16:22 Differential diagnosis: ovarian cyst, urinary tract infection, Pyelonephritis, rn ascending urinary tract infection. Data reviewed: vital signs, nurses notes, lab test result(s), radiologic studies, CT scan, and as a result, I will discharge patient. Counseling: I had a detailed discussion with the patient and/or guardian regarding the historical points, exam findings, and any diagnostic results supporting the discharge/admit diagnosis, lab results, radiology results, the need for outpatient follow up, to return to the emergency department if symptoms worsen or persist or if there are any questions or concerns that arise at home. Special discussion: I discussed with the patient/guardian in detail that at this point there is no indication for admission to the hospital. It is understood, however, that if the symptoms persist or worsen the patient needs to return immediately for re-evaluation. 06/10 12:48 Order name: Urinalysis w/ reflexes; Complete Time: 14:13 rn 06/10 12:48 Order name: Test, Urine; Complete Time: 14:13 rn 06/10 13:02 Order name: CBC with Diff; Complete Time: 14:13 rn 06/10 13:02 Order name: CMP; Complete Time: 14:13 rn 06/10 13:02 Order name: Lipase; Complete Time: 14:13 rn 06/10 13:21 Order name: Urine Culture EDMS 06/10 13:02 Order name: CT Abd/Pelvis - IV Contrast Only; Complete Time: 14:43 rn 06/10 13:02 Order name: IV Saline Lock; Complete Time: 13:34 rn 06/10 13:02 Order name: Labs collected and sent; Complete Time: 13:34 rn Administered Medications: 13:34 Drug: Ondansetron IVP 4 mg IVP once; over 2 minutes Route: IVP; Infused Over: 2 mins; tl4 Site: right antecubital; 14:44 Follow up: Response: No adverse reaction; Nausea is decreased tl4 13:35 Drug: morphine IVP or IV 4 mg IVP once over 4 mins Route: IVP; Infused Over: 4 mins; tl4 Site: right antecubital; 14:45 Follow up: Response: No adverse reaction; Pain is decreased tl4 14:45 Drug: Promethazine IVP 12.5 mg IVP once {Note: Mixed in 50mL NS.} Route: IVP; Infused tl4 Over: 20 mins; Site: right antecubital; 15:18 Follow up: Response: No adverse reaction; Nausea is decreased tl4 14:46 Drug: Ciprofloxacin IVPB 400 mg 200 ml IVPB once over 60 mins Volume: 200 ml; Route: tl4 IVPB; Infused Over: 60 mins; Site: right antecubital; Delivery: Primary tubing; 16:31 Follow up: Response: No adverse reaction; IV Status: Completed infusion; IV Intake: tl4 100ml 15:16 Drug: NS 0.9% IV 1000 ml IV at 1 bolus Per protocol; 1000 mL bolus Route: IV; Rate: 1 tl4 bolus; Site: right antecubital; 16:30 Follow up: Response: No adverse reaction; IV Status: Completed infusion; IV Intake: tl4 1000ml Disposition Summary: 06/11/23 16:23 Discharge Ordered Notes: Location: Home rn Problem: new rn Symptoms: have improved rn Condition: Stable rn Diagnosis - UTI/ Urinary tract infection, site not specified rn Followup: rn - With: Private Physician - When: As needed - Reason: Recheck today's complaints, Re-evaluation by your physician Discharge Instructions: - Discharge Summary Sheet rn - Urinary Tract Infection, Adult rn Forms: - Medication Reconciliation Form rn - Thank You Letter rn - Antibiotic learning operations specialist - Prescription Opioid Use rn - Patient Portal Instructions rn - Leadership Thank You Letter rn Prescriptions: - Cipro 500 mg Oral Tablet - take 1 tablet ORAL route every 12 hours for 7 days; 14 tablet; Refills: 0, rn Product Selection Permitted Signatures: Dispatcher [employer] EDMS Augustine Saucedo MD MD rn Slawson, Ashby, RN RN as6 Earl Patrick RN RN tl4 Corrections: (The following items were deleted from the chart) 12:48 12:48 Urinalysis+U.LAB.BRZ ordered. EDMS EDMS 12:48 12:48 Test, Urine+UC.LAB.BRZ ordered. EDMS EDMS 15:32 15:25 Home Meds: oxycarbazepine 150 mg BID; tl4 tl4
--- NOTE | 2023-06-11 16:23 | ER ---
Nurse's Notes [facility] Name: Lavinia Jarrett Age: 42 yrs Sex: Female : 1980 Arrival Date: 06/11/2023 Time: 12:44 Bed 10 Private MD: Diagnosis: UTI/ Urinary tract infection, site not specified Presentation: 06/10 12:50 Chief complaint: Patient states: urinary frequency with back pain x2 days. Coronavirus as6 screen: At this time, the client does not indicate any symptoms associated with coronavirus-19. Ebola Screen: No symptoms or risks identified at this time. Initial Sepsis Screen: Does the patient meet any 2 criteria? No. Patient's initial sepsis screen is negative. Does the patient have a suspected source of infection? No. Patient's initial sepsis screen is negative. Risk Assessment: Do you want to hurt yourself or someone else? Patient reports no desire to harm self or others. Onset of symptoms was June 09, 2023. 12:50 Method Of Arrival: Ambulatory as6 12:50 Acuity: KIKA 4 as6 13:18 Acuity: KIKA 3 iw Triage Assessment: 12:52 General: Appears in no apparent distress. Behavior is calm, cooperative. Pain: as6 Complains of pain in back. GI: Reports. : Reports urinary frequency. 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 - Infectious Disease History:: Denies. - Social history:: Smoking status: Patient reports the use of cigarette tobacco products, denies chronic smoking, but will smoke occasionally, Reported history of juuling and/or vaping. - Family history:: not pertinent. - Hospitalizations: : No recent hospitalization is reported. Screenin:03 [facility] ED Fall Risk Assessment (Adult) History of falling in the last 3 months, tl4 including since admission No falls in past 3 months (0 pts) Confusion or Disorientation No (0 pts) Intoxicated or Sedated No (0 pts) Impaired Gait No (0 pts) Mobility Assist Device Used No (0 pt) Altered Elimination No (0 pt) Score/Fall Risk Level 0 - 2 = Low Risk Oriented to surroundings, Maintained a safe environment, Educated pt \T\ family on fall prevention, incl call for assistance when getting out of bed, Assessed \T\ reinforced patient's understanding of fall precautions, Hourly rounding (assess needs \T\ fall precautionary measures) done, Used ambulatory aids as needed (educated on \T\ assisted with), Used gait belt as appropriate. 13:04 Abuse screen: Denies threats or abuse. Denies injuries from another. Nutritional tl4 screening: No deficits noted. Tuberculosis screening: No symptoms or risk factors identified. Assessment: 13:35 General: Appears uncomfortable, Behavior is calm, cooperative. Pain: Complains of pain tl4 in back and abdomen Pain currently is 9 out of 10 on a pain scale. Quality of pain is described as aching, stabbing, throbbing, Pain began gradually, 6 days ago. Neuro: Level of Consciousness is awake, alert, obeys commands, Oriented to person, place, time, situation, Human Intelligence are equal bilaterally Moves all extremities. Gait is steady, Speech is normal, Facial symmetry appears normal. Cardiovascular: Denies chest pain, palpitations, syncope, Capillary refill < 3 seconds Patient's skin is warm and dry. Respiratory: Airway is patent Respiratory effort is even, unlabored, Respiratory pattern is regular, symmetrical, Breath sounds are clear bilaterally. GI: Abdomen is non-distended, Abd is soft Abdomen is tender to palpation in suprapubic area and posterior aspect of left lateral abdomen Reports lower abdominal pain, nausea. : Reports urgency, urinary frequency, voiding small amount with sensation to void more but unable. EENT: No signs and/or symptoms were reported regarding the EENT system. Derm: No signs and/or symptoms reported regarding the dermatologic system. Musculoskeletal: No signs and/or symptoms reported regarding the musculoskeletal system. 15:19 Reassessment: Patient and/or family updated on plan of care and expected duration. Pain tl4 level reassessed. Patient is alert, oriented x 3, equal unlabored respirations, skin warm/dry/pink. Pt states pain is decreased. Pt still has sensation of urgency and frequency. 16:32 Reassessment: Patient and/or family updated on plan of care and expected duration. Pain tl4 level reassessed. Patient is alert, oriented x 3, equal unlabored respirations, skin warm/dry/pink. Patient states feeling better. Vital Signs: 12:50 BP 138 / 85; Pulse 72; Resp 18 S; Temp 98.1(O); Pulse Ox 100% on R/A; Weight 107.95 kg as6 (R); Height 5 ft. 5 in. (R); Pain 9/10; 13:39 BP 134 / 80; Pulse 75; Resp 16; Pulse Ox 99% on R/A; Pain 9/10; tl4 14:04 BP 149 / 80; Pulse 55; Resp 16; Pulse Ox 100% on R/A; Pain 8/10; tl4 16:38 BP 129 / 75; Pulse 69; Resp 18; Temp 98(O); Pulse Ox 97% on R/A; Pain 6/10; tl4 12:50 Body Mass Index 39.60 (107.95 kg, 165.1 cm) as6 12:50 Pain Scale: Adult as6 13:39 Pain Scale: Adult tl4 14:04 Pain Scale: Adult tl4 16:38 Pain Scale: Adult tl4 ED Course: 12:47 Patient arrived in ED. rg4 12:47 Augustine Saucedo MD is Attending Physician. rn 12:51 Triage completed. as6 12:52 Arm band placed on. as6 13:02 Earl Patrick, KESHAV is Primary Nurse. tl4 13:03 Client placed on continuous cardiac and pulse oximetry monitoring. NIBP monitoring tl4 applied. Door closed. Noise minimized. Moved to private room. Warm blanket given. 13:03 Test, Urine Sent. tl4 13:03 Urinalysis w/ reflexes Sent. tl4 13:03 Urine collected: clean catch specimen, cloudy. tl4 13:04 Patient has correct armband on for positive identification. Placed in gown. Bed in low tl4 position. Call light in reach. Side rails up X 1. Adult w/ patient. Provided Education on: ED process. 13:34 CBC with Diff Sent. tl4 13:34 CMP Sent. tl4 13:34 Lipase Sent. tl4 13:39 No provider procedures requiring assistance completed. Initial lab(s) drawn, by me, tl4 sent to lab. Inserted saline lock: 22 gauge in right antecubital area, using aseptic technique. Blood collected. 13:45 CT Abd/Pelvis - IV Contrast Only In Process Unspecified. EDMS 16:32 IV discontinued, intact, bleeding controlled, No redness/swelling at site. Pressure tl4 dressing applied. Administered Medications: 13:34 Drug: Ondansetron IVP 4 mg IVP once; over 2 minutes Route: IVP; Infused Over: 2 mins; tl4 Site: right antecubital; 14:44 Follow up: Response: No adverse reaction; Nausea is decreased tl4 13:35 Drug: morphine IVP or IV 4 mg IVP once over 4 mins Route: IVP; Infused Over: 4 mins; tl4 Site: right antecubital; 14:45 Follow up: Response: No adverse reaction; Pain is decreased tl4 14:45 Drug: Promethazine IVP 12.5 mg IVP once {Note: Mixed in 50mL NS.} Route: IVP; Infused tl4 Over: 20 mins; Site: right antecubital; 15:18 Follow up: Response: No adverse reaction; Nausea is decreased tl4 14:46 Drug: Ciprofloxacin IVPB 400 mg 200 ml IVPB once over 60 mins Volume: 200 ml; Route: tl4 IVPB; Infused Over: 60 mins; Site: right antecubital; Delivery: Primary tubing; 16:31 Follow up: Response: No adverse reaction; IV Status: Completed infusion; IV Intake: tl4 100ml 15:16 Drug: NS 0.9% IV 1000 ml IV at 1 bolus Per protocol; 1000 mL bolus Route: IV; Rate: 1 tl4 bolus; Site: right antecubital; 16:30 Follow up: Response: No adverse reaction; IV Status: Completed infusion; IV Intake: tl4 1000ml Medication: 13:03 VIS not applicable for this client. tl4 Intake: 16:30 IV: 1000ml; Total: 1000ml. tl4 16:31 IV: 100ml; Total: 1100ml. tl4 Outcome: 16:23 Discharge ordered by MD. keith 16:33 Discharged to home ambulatory, tl4 16:33 Condition: stable 16:33 Discharge instructions given to patient, Instructed on discharge instructions, follow up and referral plans. medication usage, Demonstrated understanding of instructions, follow-up care, medications, Prescriptions given X 1, 16:38 Patient left the ED. tl4 Signatures: Dispatcher [employer] Belinda Berman RN RN iw Nieto, Roman, MD MD rn Garcia, Rubi rg4 Troy Garner RN RN as6 Earl Patrick RN RN tl4 Corrections: (The following items were deleted from the chart) 15:32 15:25 Home Meds: oxycarbazepine 150 mg BID; tl4 tl4
[2023-06-11 21:27] VITALS: BP 129/75; TEMP 98; O2SAT 97
== END 2023-06-11 16:38 | disposition home or self-care (01) ==
LOC: ER 12:44
DX: N39.0 Urinary tract infection, site not specified (principal); Z91.040 Latex allergy status
CPT/HCPCS: 96365; 87088; 85025; 81001; 87086; 36415; 81025; 83690; 80053; 74177; 96375; 99284; 96366; Q9967; J2550; J2405; J0744; J7030

== ENCOUNTER 2023-06-12 23:03 | Emergency (ER) | payer OTHER ==
--- OUTSIDE RECORDS SUMMARY | 2023-06-12 23:14 | XMS REPORT | Continuity of Care Document ---
Author Name Unknown Address [address] [facility] [address] [place] [address] [facility] thconnect Address [address] [facility] 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 Phone FAYE NAPOLES Primary Care Physician Unavailab Cinda Figueroa Attending Clinician Unavailable BROOKLYN HARTMAN Attending Clinician BROOKLYN Flores Attending Clinician PERCY Elizondo Attending Clinician Unavailable UNKNOWN, ATTENDING Attending Clinician Unavailab FAYE Wallace Attending Clinician Unavailable Faye Rothman Attending Clinician [phone] Percy Andrade MD Attending Clinician [phone] Doctor Unassigned, [place] Attending Clinician U navailable LANIE LOPEZ Attending Clinician Unavailable LANIE LOPEZ Attending Clinician Unavailable KIZZY MACKEY Attending Clinician Unavail able KIZZY MACKEY Attending Clinician Unavail able Stephanie, Ang - Db Attending Clinician Unavailable TEJAL SULLIVAN Attending Clinician Unavailable Tejal Sullivan NP Attending Clinician [phone] Jose Bowen MD Attending Clinician [phone] EMILY GIL Attending Clinician Unavailable Emily Jesus Attending Clinician [phone] Marco Gayle MD Attending Clinician [phone] MARCO GAYLE Attending Clinician Unavailable MOO PARK Attending Clinician Unavailable Moo Samayoa Attending Clinician [phone] Jacki PARR, Pearl Herrera Attending Clinician UnaARIES Spaulding Attending Clinician Unavailable Chema Dominguez MD Attending Clinician [phone] DEBRA IRVIN Attending Clinician Unavailable Nancy Gutierrez Attending Clinician [phone] Debra Irvin MD Attending Clinician [phone] FIONA FELIX Attending Clinician Unavailable JOSE BOWEN Attending Clinician Unavailable Pob, [facility] Attending Clinician Unavailamna Leigh PA-C, Aries Attending Clinician [phone] NANCY CANNON Attending Clinician Unavailable CHEMA DOMINGUEZ Attending Clinician UnavailJosse CUETO, Maribell Attending Clinician +[phone] Senia Esparza DO Attending Clinician [phone] Fiona Felix MD Attending Clinician [phone] Zully VASQUEZ, Nicole Hsieh Attending Clinician FAYE Kahn Admitting Clinician Unavailable TEJAL SULLIVAN Admitting Clinician Unavailable BROOKLYN HARTMAN Admitting Clinician MOO Arthur Admitting Clinician Unavailable Payers Payer Name Policy Type Policy Number Effective Date Expirati on Date Source [facility] [id number] 2016 00:00:00 Problems Condition Name Condition Details Condition Category Status Onset Date Resolution Date Last Treatment Date Treating Clinician Comments Source Vitiligo Vitiligo Disease Active 2022-02 00:00: 00 [facility] Eczema, unspecifie d type Eczema, unspecifie d type Disease Active 2022-02 00:00: 00 [facility] Status post hysterecto my Status post hysterecto my Disease Active 09-04 00:00: 00 [facility] Hematoma Hematoma Disease Active 09-04 00:00: 00 [facility] Bipolar disorder Bipolar disorder Disease Active 08-30 00:00: 00 [facility] CPAP (continuou s positive airway pressure) dependence CPAP (continuou s positive airway pressure) dependence Disease Active 08-30 00:00: 00 [facility] Diverticul osis of intestine without bleeding, unspecifie d intestinal tract location Diverticul osis of intestine without bleeding, unspecifie d intestinal tract location Disease Active 08-30 00:00: 00 [facility] Gastroesop hageal reflux disease Gastroesop hageal reflux disease Disease Active 08-30 00:00: 00 [facility] History of excision of intestinal structure History of excision of intestinal structure Disease Active 08-30 00:00: 00 [facility] Insomnia, unspecifie d type Insomnia, unspecifie d type Disease Active 08-30 00:00: 00 [facility] Migraine without status migrainosu s, not intractabl e, unspecifie d migraine type Migraine without status migrainosu s, not intractabl e, unspecifie d migraine type Disease Active 08-30 00:00: 00 [facility] Mixed anxiety and depressive disorder Mixed anxiety and depressive disorder Disease Active 08-30 00:00: 00 [facility] Obstructiv e sleep apnea Obstructiv e sleep apnea Disease Active 08-30 00:00: 00 [facility] Graves' disease Graves' disease Disease Active 08-02 00:00: 00 [facility] Abdominal pain, right lower quadrant Abdominal pain, right lower quadrant Disease Active 08-02 00:00: 00 Overview: Formattin g of this note might be different from the original. Added automatic ally from request for surgery [id number] [facility] Right ovarian cyst Right ovarian cyst Disease Active 08-02 00:00: 00 Overview: Formattin g of this note might be different from the original. 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 Disease Active 03-31 00:00: 00 [facility] BV (bacterial vaginosis) BV (bacterial vaginosis) Disease Active 03-13 00:00: 00 [facility] Hydrosalpi nx Hydrosalpi nx Disease Active 03-09 00:00: 00 [facility] Cyst of maxillary sinus Cyst of maxillary sinus Disease Active 03-09 00:00: 00 [facility] Female infertilit y of unspecifie d origin Female infertilit y of unspecifie d origin Disease Active 03-09 00:00: 00 [facility] Irritable bowel syndrome with both constipati on and diarrhea Irritable bowel syndrome with both constipati on and diarrhea Disease Active 03-09 00:00: 00 [facility] Fibromyalg ia Fibromyalg ia Disease Active 2015-02 00:00: 00 [facility] Pain in joint, multiple sites Pain in joint, multiple sites Disease Active 2015-02 00:00: 00 [facility] History of adrenal insufficie ncy History of adrenal insufficie ncy Disease Active 2015-02 00:00: 00 [facility] Chronic fatigue Chronic fatigue Disease Active 2015-02 00:00: 00 [facility] Morbid obesity with body mass index of 40.0-49.9 Morbid obesity with body mass index of 40.0-49.9 Disease Active 2015-02 00:00: 00 [facility] 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 Disease Active 2015-02 00:00: 00 [facility] 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 [employer] [facility] Migraine without status migrainosu s, not intractabl e, unspecifie d migraine type Migraine without status migrainosu s, not intractabl e, unspecifie d migraine type Problem Active [facility] Obstructiv e sleep apnea Obstructiv e sleep apnea Problem Active [facility] Gallstone Gallstone Problem Active [facility] Fibromyalg ia Fibromyalg ia Problem Active [facility] Chronic pain syndrome Chronic pain syndrome Problem Active [facility] Muscle weakness Muscle weakness Problem Active [facility] Insomnia, unspecifie d type Insomnia, unspecifie d type Problem Active [facility] Bipolar disorder Bipolar disorder Problem Active [facility] Hypothyroi dism, unspecifie d type Hypothyroi dism, unspecifie d type Problem Active [facility] Depression with anxiety Depression with anxiety Problem Active [facility] Foot pain Foot pain Problem Active [facility] CPAP (continuou s positive airway pressure) dependence CPAP (continuou s positive airway pressure) dependence Problem Active [facility] Diverticul osis of intestine without bleeding, unspecifie d intestinal tract location Diverticul osis of intestine without bleeding, unspecifie d intestinal tract location Problem Active [facility] Abdominal pain, unspecifie d abdominal location Abdominal pain, unspecifie d abdominal location Problem Active [facility] Irritable bowel syndrome with constipati on Irritable bowel syndrome with constipati on Problem Active [facility] Gastroesop hageal reflux disease, esophagiti s presence not specified Gastroesop hageal reflux disease, esophagiti s presence not specified Problem Active [facility] Allergies, Adverse Reactions, Alerts Allergy Name Allergy Type Status Severity Reaction(s) Onset Date Inactive Date Treating Clinician Comments Source [facility] Active High ITCHING 2015-02 00:00: 00 [facility] Latex Propensi ty to adverse reaction s to drug Active Itching 2015-02 0 00:00: 00 [facility] Social History Social Habit Start Date Stop Date Quantity Comments Source [facility] Alcohol intake 2023-03-19 00:00:00 2023-03-19 00:00:00 0 /d [facility] History of Social function 2022-08-20 00:00:00 2022-08-20 00:00:00 [facility] Exposure to SARS-CoV-2 (event) 2022-07-23 00:00:00 2022-08-02 07:35:00 Not sure [facility] Cigarettes smoked current (pack per day) - Reported 2022-08-02 00:00:00 2022-08-02 00:00:00 [facility] Tobacco use and exposure 2022-08-02 00:00:00 2022-08-02 00:00:00 Smokeless tobacco non-user [facility] Tobacco Comment 2022-08-02 00:00:00 2022-08-02 00:00:00 Pt smokes 1 pack a day total of 20 cigarettes daily [facility] History of tobacco use 2005-02-25 00:00:00 Cigarette Smoker [facility] Sex Assigned At 1980 00:00:00 1980 00:00:00 [facility] Smoking Status Start Date Stop Date Source Smokes tobacco daily 2022-08-02 00:00:00 [facility] Medications Ordered Medication Name Filled Medication Name Start Date Stop Date Current Medication? Ordering Clinician Indication Dosage Frequency Signature (SIG) Comments Components Source levothyroxi ne 125 mcg tablet 05-26 00:00: 00 Yes [id number] 125ug Take 1 tablet by mouth every morning. [facility] hydrocortis one 10 mg tablet 03-04 00:00: 00 Yes [id number] Take 1 tablet in the morning and half tablet at night [facility] hydrocortis one sod succ (SOLU-AMY F) 100 mg injection 03-04 00:00: 00 Yes [id number] 100mg 2 mL by Intramuscu lar route as needed (for when patient is unconsciou s). [facility] phentermine 37.5 mg capsule 03-04 00:00: 00 Yes [id number] 104 37.5mg Take 1 capsule by mouth every morning. [facility] topiramate 25 mg tablet 03-04 00:00: 00 Yes [id number] 50mg Take 2 tablets by mouth in the morning. [facility] Syringe, Disposable, 3 mL Syrg 03-04 00:00: 00 Yes [id number] Use as directed once [facility] Needle, Disp, 21 G 21 gauge x 1 1/2" Ndle 03-04 00:00: 00 Yes [id number] Use as directed [facility] topiramate 25 mg tablet 2022-02 2 00:00: 00 03-04 00:00 :00 No [id number] 50mg Take 2 tablets by mouth in the morning. [facility] triamcinolo ne acetonide 0.1 % ointment 2022-02 00:00: 00 Yes [id number] Apply to area(s) 2 (two) times daily. [facility] LEVOTHYROXI NE 125 mcg tablet 2022-02 00:00: 00 05-25 00:00 :00 No [id number] 125ug TAKE 1 TABLET BY MOUTH EVERY DAY IN THE MORNING [facility] rOPINIRole 1 mg tablet 2022-02 0 16:29: 29 11-29 00:00 :00 No 1mg Take 1 tablet by mouth at bedtime. [facility] proMETHazin e 25 mg tablet 2022-02 16:29: 16 11-29 00:00 :00 No Take by mouth as needed. [facility] FENTanyl 25 mcg/hr patch 2022-02 16:29: 00 11-29 00:00 :00 No 1{patch } Apply 1 Patch to skin every 72 (seventy-t wo) hours. [facility] phentermine 37.5 mg capsule 10-22 00:00: 00 03-04 00:00 :00 No [id number] 104 37.5mg Take 1 capsule by mouth every morning. [facility] topiramate 25 mg tablet 10-22 00:00: 00 01-26 00:00 :00 No [id number] 50mg Take 2 tablets by mouth in the morning. [facility] levothyroxi ne 125 mcg tablet 10-15 00:00: 00 12-02 00:00 :00 No [id number] 125ug Take 1 tablet by mouth every morning. [facility] hydrocortis one sod succ (CORTEF) injection 100 mg 09-17 08:45: 00 09-17 08:04 :00 No 100mg 100 mg, Intravenou s, ONCE, 1 dose, On Sat09/17/22 at 0345, 2 mL [facility] ondansetron (ZOFRAN (PF)) injection 4 mg 09-17 07:54: 00 09-17 07:55 :00 No 4mg 4 mg, Slow IV Push, ONCE, 1 dose, On Sat09/17/22 at 0300, MARSHALL [facility] dicyclomine (BENTYL) injection 20 mg 09-17 07:45: 00 09-17 07:47 :00 No 20mg 20 mg, Intramuscu lar, ONCE NOW, 1 dose, On Sat09/17/22 at 0245, Routine [facility] alum-mag hydroxide-s imeth (MAALOX PLUS / MAG-AL PLUS) 200-200-20 mg/5 mL suspension 30 mL 09-17 07:00: 00 09-17 07:52 :00 No 30mL 30 mL, Oral, ONCE, 1 dose, On Sat09/17/22 at 0200, MARSHALL [facility] morpHINE (2 mg/mL) injection 2 mg 09-17 07:00: 00 09-17 07:45 :00 No 2mg 2 mg, Slow IV Push, ONCE, 1 dose, On Sat09/17/22 at 0200, STAT [facility] NaCl 0.9% (NS) bolus infusion 500 mL 09-17 06:00: 00 09-17 07:55 :00 No 500mL at 999 mL/hr, 500 mL, IV Infusion, ONCE, 1 dose, On Sat09/17/22 at 0100, STAT [facility] iopamidol (ISOVUE 370-500 mL) injection 75 mL 09-17 06:00: 00 09-17 05:11 :00 No [id number] 75mL 75 mL, Intravenou s, ONCE, 1 dose, On Sat09/17/22 at 0100, Routine [facility] ketorolac (TORADOL) injection 30 mg 09-17 04:45: 00 09-17 04:47 :00 No 30mg 30 mg, Slow IV Push, ONCE, 1 dose, On Sat09/16/22 at 2345, Routine [facility] diazePAM (VALIUM) injection 5 mg 09-17 03:45: 00 09-17 04:45 :00 No 5mg 5 mg, Slow IV Push, ONCE, 1 dose, On Sat09/16/22 at 2245, STAT [facility] FENTanyl 25 mcg/hr patch 09-14 09:30: 16 Yes 1{patch } Apply 1 Patch to skin every 72 (seventy-t wo) hours. [facility] proMETHazin e 25 mg tablet 09-14 09:30: 16 Yes Take by mouth as needed. [facility] WEGOVY 0.25 mg/0.5 mL PnIj SC injection 09-06 00:00: 00 10-22 00:00 :00 No [id number] .25mg INJECT 0.25 MG UNDER THE SKIN WEEKLY. [facility] levothyroxi ne 125 mcg tablet 09-05 00:00: 00 10-15 00:00 :00 No [id number] 125ug Take 1 tablet by mouth every morning. [facility] topiramate 25 mg tablet 09-04 16:05: 41 09-04 00:00 :00 No Take by mouth daily. [facility] rizatriptan (MAXALT) 10 mg tablet 09-04 00:00: 00 Yes [id number] 10mg Take 1 tablet by mouth as needed for Migraine. May repeat in 2 hours if needed [facility] topiramate 25 mg tablet 09-04 00:00: 00 10-22 00:00 :00 No [id number] 50mg Take 2 tablets by mouth in the morning. [facility] semaglutide , weight loss, (WEGOVY) 0.25 mg/0.5 mL PnIj SC injection 09-04 00:00: 00 09-06 00:00 :00 No [id number] .25mg inject 0.25 mg under the skin weekly. [facility] proMETHazin e 25 mg tablet 08-30 16:31: 42 Yes Take by mouth as needed. [facility] HYDROCORTIS ONE 10 mg tablet 08-25 00:00: 00 03-04 00:00 :00 No [id number] TAKE 1 TABLET BY MOUTH TWICE A DAY [facility] lactated ringers IV infusion 1,000 mL 08-20 14:45: 00 08-20 18:31 :06 No 1000mL at 75 mL/hr, 1,000 mL, IV Infusion, CONTINUOUS , Starting on Sat08/20/22 at 0945, Until Sat08/20/22 at 1331, Routine, PACU [facility] HYDROcodone -acetaminop hen (NORCO) 10-325 mg tablet 1 tablet 08-20 14:42: 27 08-20 15:34 :00 No 1{tbl} 1 tablet, Oral, PRN, 1 dose, Starting on Sat08/20/22 at 0942, Until Discontinu ed, Routine, Pain (scale 7-10), DSU Recovery [facility] HYDROcodone -acetaminop hen (NORCO 5) 5-325 mg tablet 1 tablet 08-20 14:42: 27 08-20 18:31 :06 No 1{tbl} 1 tablet, Oral, PRN, 1 dose, Starting on Sat08/20/22 at 0942, Until Sat08/20/22 at 1331, Routine, Pain (scale 4-6), DSU Recovery [facility] ibuprofen (IBU) tablet 800 mg 08-20 14:42: 27 08-20 18:31 :06 No 800mg 800 mg, Oral, PRN, 1 dose, Starting on Sat08/20/22 at 0942, Until Sat08/20/22 at 1331, Routine, Pain (scale 1-3), DSU Recovery [facility] FENTanyl PF (SUBLIMAZE (PF)) injection 25 mcg 08-20 14:42: 14 08-20 15:23 :00 No 25ug 25 mcg, Slow IV Push, Q5MIN PRN, 4 doses, Starting on Sat08/20/22 at 0942, Until Sat08/20/22 at 1023, Routine, Pain (scale 4-6), PACU [facility] ondansetron (ZOFRAN (PF)) injection 4 mg 08-20 14:42: 14 08-20 18:31 :06 No 4mg 4 mg, Slow IV Push, PRN, 1 dose, Starting on Sat08/20/22 at 0942, Until Sat08/20/22 at 1331, Routine, Nausea and Vomiting (N/V), PACU [facility] bupivacaine (preserv free) 0.5% (SENSORCAIN E MPF) 0.5 % (5 mg/mL) injection 08-20 13:00: 00 08-20 14:46 :23 No PRN, Starting on Sat08/20/22 at 0800, Until Sat08/20/22 at 0946, Routine, Intra-op [facility] sodium chloride 0.9 % irrigation solution 08-20 13:00: 00 08-20 14:46 :23 No PRN, Starting on Sat08/20/22 at 0800, Until Sat08/20/22 at 0946, Intra-op [facility] lactated ringers IV infusion 1,000 mL 08-20 12:15: 00 08-20 18:31 :06 No 1000mL at 100 mL/hr, 1,000 mL, IV Infusion, CONTINUOUS , Starting on Sat08/20/22 at 0715, Until Sat08/20/22 at 1331, Routine, PACU [facility] CITALOPRAM HYDROBROMID E (CELEXA ORAL) 08-20 11:26: 02 Yes 40mg Take 40 mg by mouth in the morning. [facility] FENTanyl 25 mcg/hr patch 08-20 11:26: 02 Yes 1{patch } Apply 1 Patch to skin every 72 (seventy-t wo) hours. [facility] rOPINIRole 1 mg tablet 08-20 11:26: 02 Yes 1mg Take 1 tablet by mouth at bedtime. [facility] topiramate 25 mg tablet 08-20 11:26: 02 Yes Take by mouth daily. [facility] proMETHazin e 25 mg tablet 08-20 11:26: 02 Yes Take by mouth as needed. [facility] traMADoL 50 mg tablet 08-20 11:25: 59 08-20 00:00 :00 No Take by mouth as needed. [facility] OXCARBAZEPI NE (TRILEPTAL ORAL) 08-20 09:34: 50 08-20 00:00 :00 No 300mg Take 300 mg by mouth in the morning and 300 mg in the evening. [facility] ibuprofen 800 mg tablet 08-20 00:00: 00 11-29 00:00 :00 No [id number] 800mg Take 1 tablet by mouth every 6 (six) hours as needed for Pain (scale 1-3). [facility] HYDROcodone -acetaminop hen (NORCO) 7.5-325 mg per tablet 08-20 00:00: 00 08-28 04:59 :00 No [id number] 1{tbl} Take 1 tablet by mouth every 6 (six) hours as needed for Pain for up to 7 days. Indication s: acute pain [facility] HYDROcodone -acetaminop hen 5-325 mg tablet 08-20 00:00: 00 08-20 00:00 :00 No [id number] 1{tbl} Take 1 tablet by mouth every 6 (six) hours as needed for Pain (scale 4-6) or Pain (scale 7-10). Indication s: acute pain [facility] levothyroxi ne 150 mcg tablet 08-17 00:00: 00 09-05 00:00 :00 No [id number] 150ug Take 1 tablet by mouth every morning. Please wait for 30 minutes to an hour before you eat or drink anything. [facility] OXCARBAZEPI NE (TRILEPTAL ORAL) 08-09 10:09: 34 Yes 300mg Take 300 mg by mouth in the morning and 300 mg in the evening. [facility] topiramate 25 mg tablet 08-09 10:09: 34 Yes Take by mouth daily. [facility] proMETHazin e 25 mg tablet 08-09 10:09: 34 Yes Take by mouth as needed. [facility] traMADoL 50 mg tablet 08-09 10:09: 34 Yes Take by mouth as needed. [facility] CITALOPRAM HYDROBROMID E (CELEXA ORAL) 08-09 09:52: 09 Yes 40mg Take 40 mg by mouth in the morning. [facility] FENTanyl 25 mcg/hr patch 08-09 09:52: 09 Yes 1{patch } Apply 1 Patch to skin every 72 (seventy-t wo) hours. [facility] rOPINIRole 1 mg tablet 08-09 09:52: 09 Yes 1mg Take 1 tablet by mouth at bedtime. [facility] ibuprofen 800 mg tablet 08-02 00:00: 00 08-20 00:00 :00 No [id number] 800mg Take 1 tablet by mouth every 8 (eight) hours as needed for Pain (scale 4-6). [facility] ketorolac (TORADOL) injection 30 mg 07-29 04:00: 00 07-29 02:59 :00 No 30mg 30 mg, Slow IV Push, ONCE, 1 dose, On 07/28/22 at 2300, Routine [facility] morpHINE (4 mg/mL) injection 4 mg 07-29 02:00: 00 07-29 01:53 :00 No 4mg 4 mg, Slow IV Push, ONCE, 1 dose, On 07/28/22 at 2100, STAT [facility] morpHINE (4 mg/mL) injection 4 mg 07-29 00:30: 00 07-29 00:17 :00 No 4mg 4 mg, Slow IV Push, ONCE, 1 dose, On 07/28/22 at 1930, STAT [facility] iopamidol (ISOVUE 370-500 mL) injection 90 mL 07-29 00:00: 00 07-29 00:00 :00 No [id number] 90mL 90 mL, Intravenou s, ONCE, 1 dose, On 07/28/22 at 1900, Routine [facility] ondansetron (ZOFRAN (PF)) injection 4 mg 07-28 22:15: 00 07-28 22:22 :00 No 4mg 4 mg, Slow IV Push, ONCE, 1 dose, On 07/28/22 at 1715, MARSHALL [facility] morpHINE (4 mg/mL) injection 4 mg 07-28 22:15: 00 07-28 22:27 :00 No 4mg 4 mg, Slow IV Push, ONCE, 1 dose, On 07/28/22 at 1715, STAT [facility] cefpodoxime 100 mg tablet 07-28 00:00: 00 08-05 04:59 :00 No [id number] 100mg Take 1 tablet by mouth in the morning and 1 tablet in the evening. Do all this for 7 days. [facility] LATUDA 20 mg tablet 07-27 00:00: 00 Yes Take by mouth at bedtime. [facility] TOPIRAMATE 25 mg tablet 07-25 00:00: 00 09-04 00:00 :00 No [id number] TAKE 1 TABLET BY MOUTH EVERY DAY IN THE MORNING [facility] atomoxetine 60 mg capsule 07-22 00:00: 00 Yes 60mg Take 1 capsule by mouth in the morning and 1 capsule in the evening. [facility] cloNIDine 0.1 mg tablet 07-20 00:00: 00 Yes Take by mouth as needed. [facility] HYDROcodone -acetaminop hen 10-325 mg tablet 14 00:00: 00 Yes 1{tbl} Take 1 tablet by mouth in the morning and 1 tablet in the evening. [facility] phentermine 37.5 mg capsule - 00:00: 00 08-20 00:00 :00 No [id number] 37.5mg Take 1 capsule by mouth every morning. [facility] levothyroxi ne 175 mcg tablet - 00:00: 00 08-17 00:00 :00 No [id number] 175ug Take 1 tablet by mouth every morning. TAKE 1 TABLET DAILY SATURDAY THROUGH SATURDAY, AND 1/2 TABLET ON SATURDAY [facility] topiramate 25 mg tablet - 00:00: 00 07-25 00:00 :00 No [id number] 25mg Take 1 tablet by mouth in the morning. [facility] phentermine 37.5 mg capsule 2021-02 0-26 00:00: 00 02-28 00:00 :00 No [id number] 37.5mg Take 1 capsule by mouth every morning. [facility] topiramate 25 mg tablet 2021-02 0-03 00:00: 02-28 00:00 :00 No [id number] 25mg Take 1 tablet by mouth in the morning. [facility] semaglutide , weight loss, (WEGOVY) 0.25 mg/0.5 mL PnIj SC injection 2021-02 0-03 00:00: 00 12-20 00:00 :00 No [id number] .25mg inject 0.25 mg under the skin weekly. [facility] topiramate 25 mg tablet 9-30 00:00: 00 11-27 00:00 :00 No [id number] TAKE 1 TABLET BY MOUTH EVERY DAY [facility] PHENTERMINE 37.5 mg capsule 8-28 00:00: 00 11-27 00:00 :00 No [id number] TAKE 1 CAPSULE BY MOUTH EVERY DAY IN THE MORNING [facility] levothyroxi ne 175 mcg tablet 7-30 00:00: 00 02-28 00:00 :00 No [id number] TAKE 1 TABLET DAILY SATURDAY THROUGH SATURDAY, AND 1/2 TABLET ON SATURDAY. [facility] hydrocortis one sod succ (SOLU-AMY F) 100 mg injection 6-29 00:00: 00 03-04 00:00 :00 No [id number] 100mg 2 mL by Intramuscu lar route as needed (for when patient is unconsciou s). [facility] hydrocortis one 10 mg tablet 6-29 00:00: 00 08-25 00:00 :00 No [id number] 10mg Take 1 tablet by mouth 2 (two) times daily. [facility] topiramate 25 mg tablet 6-10 00:00: 00 11-24 00:00 :00 No [id number] 25mg Take 1 tablet by mouth daily. [facility] PHENTERMINE 37.5 mg capsule 6-07 00:00: 00 10-22 00:00 :00 No [id number] TAKE 1 CAPSULE BY MOUTH EVERY DAY IN THE MORNING [facility] LEVOTHYROXI NE 175 mcg tablet 05-17 00:00: 00 09-23 00:00 :00 No [id number] TAKE 1 TABLET DAILY SATURDAY THROUGH SATURDAY, AND 1/2 TABLET ON SATURDAY. [facility] norethindro ne 0.35 mg tablet 2020-02 00:00: 00 08-20 00:00 :00 No [id number] 1{tbl} Take 1 tablet by mouth daily. [facility] CITALOPRAM HYDROBROMID E (CELEXA ORAL) 2020-02 13:09: 42 Yes Take by mouth daily. [facility] FENTanyl 25 mcg/hr patch 2020-02 13:09: 42 Yes 1{patch } Apply 1 Patch to skin every 72 (seventy-t wo) hours. [facility] rOPINIRole 1 mg tablet 2020-02 13:09: 42 Yes 1mg Take 1 mg by mouth at bedtime. [facility] Movantik Movantik 04-22 00:00: 00 08-20 00:00 :00 No Cinda Millender 1 tablet in the morning [facility] Pantoprazol e Sodium Pantoprazol e Sodium 10-25 00:00: 00 Yes Cinda Millender 1 tablet [facility] Chlordiazep oxide-Clidi nium Chlordiazep oxide-Clidi nium 10-25 00:00: 00 08-20 00:00 :00 No Cinda Millender 1 capsule [facility] ondansetron 4 mg disintegrat ing tablet 2016-02 00:00: 00 08-20 00:00 :00 No [facility] LYRICA 100 mg capsule 2015-02 00:00: 00 03-04 00:00 :00 No [facility] SAVELLA 50 mg tablet 2015-02 00:00: 00 03-04 00:00 :00 No 25mg Take 0.5 tablets by mouth in the morning and 0.5 tablets in the evening. [facility] Neurontin Neurontin Yes Cinda Millender 1 capsule [facility] Amitriptyli ne HCl Amitriptyli ne HCl Yes Cinda Millender 1 tablet [facility] Topamax Topamax Yes Cinda Millender 1 tablet [facility] Zofran Zofran Yes Cinda Millender 1 tablet [facility] Ultram Ultram Yes Cinda Millender 1 tablet as needed [facility] Lyrica Lyrica Yes Cinda Millender 1 capsule [facility] Robaxin Robaxin Yes Cinda Millender 1.5 tablets [facility] Trazodone HCl Trazodone HCl Yes Cinda Millender 1 tablet at bedtime as needed [facility] Protonix Protonix Yes Cinda Millender 1 tablet [facility] Savella Savella Yes Cinda Millender 1 tablet [facility] Synthroid Synthroid Yes Cinda Millender 1 tablet on an empty stomach in the morning [facility] Imitrex Imitrex Yes Cinda Millender 1 tablet as needed [facility] Citalopram Hydrobromid e Citalopram Hydrobromid e Yes Cinda Millender 1 tablet [facility] Clonazepam Clonazepam Yes Cinda Millender 1 tablet [facility] Cyclobenzap rine HCl Cyclobenzap rine HCl Yes Cinda Millender 1 tablet as needed [facility] Furosemide Furosemide Yes Cinda Millender 1 tablet as needed for leg swelling [facility] Effexor XR Effexor XR Yes Cinda Briceno 1 capsule with food [facility] Immunizations Ordered Immunization Name Filled Immunization Name Date Status Comments Source Pneumococcal 13 Conjugate, PCV13 (Prevnar 13) 2021-01-05 00:00:00 Completed [facility] TDAP 2021-01-05 00:00:00 Completed [facility] Influenza Virus Vaccine Quad IM, Preserv and ABX Free 6 MO-64 YRS 2021-01-05 00:00:00 Completed [facility] Pneumococcal 13 Conjugate, PCV13 (Prevnar 13) 2021-01-05 00:00:00 Completed [facility] TDAP 2021-01-05 00:00:00 Completed [facility] Influenza Virus Vaccine Quad IM, Preserv and ABX Free 6 MO-64 YRS 2021-01-05 00:00:00 Completed [facility] Pneumococcal 13 Conjugate, PCV13 (Prevnar 13) 2021-01-05 00:00:00 Completed [facility] TDAP 2021-01-05 00:00:00 Completed [facility] Influenza Virus Vaccine Quad IM, Preserv and ABX Free 6 MO-64 YRS 2021-01-05 00:00:00 Completed [facility] Pneumococcal 13 Conjugate, PCV13 (Prevnar 13) 2021-01-05 00:00:00 Completed [facility] TDAP 2021-01-05 00:00:00 Completed [facility] Influenza Virus Vaccine Quad IM, Preserv and ABX Free 6 MO-64 YRS 2021-01-05 00:00:00 Completed [facility] Pneumococcal 13 Conjugate, PCV13 (Prevnar 13) 2021-01-05 00:00:00 Completed [facility] TDAP 2021-01-05 00:00:00 Completed [facility] Influenza Virus Vaccine Quad IM, Preserv and ABX Free 6 MO-64 YRS 2021-01-05 00:00:00 Completed [facility] Pneumococcal 13 Conjugate, PCV13 (Prevnar 13) 2021-01-05 00:00:00 Completed [facility] TDAP 2021-01-05 00:00:00 Completed [facility] Influenza Virus Vaccine Quad IM, Preserv and ABX Free 6 MO-64 YRS 2021-01-05 00:00:00 Completed [facility] Pneumococcal 13 Conjugate, PCV13 (Prevnar 13) 2021-01-05 00:00:00 Completed [facility] TDAP 2021-01-05 00:00:00 Completed [facility] Influenza Virus Vaccine Quad IM, Preserv and ABX Free 6 MO-64 YRS 2021-01-05 00:00:00 Completed [facility] Pneumococcal 13 Conjugate, PCV13 (Prevnar 13) 2021-01-05 00:00:00 Completed [facility] TDAP 2021-01-05 00:00:00 Completed [facility] Influenza Virus Vaccine Quad IM, Preserv and ABX Free 6 MO-64 YRS 2021-01-05 00:00:00 Completed [facility] Pneumococcal 13 Conjugate, PCV13 (Prevnar 13) 2021-01-05 00:00:00 Completed [facility] TDAP 2021-01-05 00:00:00 Completed [facility] Influenza Virus Vaccine Quad IM, Preserv and ABX Free 6 MO-64 YRS 2021-01-05 00:00:00 Completed [facility] Pneumococcal 13 Conjugate, PCV13 (Prevnar 13) 2021-01-05 00:00:00 Completed [facility] TDAP 2021-01-05 00:00:00 Completed [facility] Influenza Virus Vaccine Quad IM, Preserv and ABX Free 6 MO-64 YRS 2021-01-05 00:00:00 Completed [facility] Pneumococcal 13 Conjugate, PCV13 (Prevnar 13) 2021-01-05 00:00:00 Completed [facility] TDAP 2021-01-05 00:00:00 Completed [facility] Influenza Virus Vaccine Quad IM, Preserv and ABX Free 6 MO-64 YRS 2021-01-05 00:00:00 Completed [facility] Pneumococcal 13 Conjugate, PCV13 (Prevnar 13) 2021-01-05 00:00:00 Completed [facility] TDAP 2021-01-05 00:00:00 Completed [facility] Influenza Virus Vaccine Quad IM, Preserv and ABX Free 6 MO-64 YRS 2021-01-05 00:00:00 Completed [facility] Pneumococcal 13 Conjugate, PCV13 (Prevnar 13) 2021-01-05 00:00:00 Completed [facility] TDAP 2021-01-05 00:00:00 Completed [facility] Influenza Virus Vaccine Quad IM, Preserv and ABX Free 6 MO-64 YRS 2021-01-05 00:00:00 Completed [facility] Pneumococcal 13 Conjugate, PCV13 (Prevnar 13) 2021-01-05 00:00:00 Completed [facility] TDAP 2021-01-05 00:00:00 Completed [facility] Influenza Virus Vaccine Quad IM, Preserv and ABX Free 6 MO-64 YRS 2021-01-05 00:00:00 Completed [facility] Pneumococcal 13 Conjugate, PCV13 (Prevnar 13) 2021-01-05 00:00:00 Completed [facility] TDAP 2021-01-05 00:00:00 Completed [facility] Influenza Virus Vaccine Quad IM, Preserv and ABX Free 6 MO-64 YRS 2021-01-05 00:00:00 Completed [facility] Pneumococcal 13 Conjugate, PCV13 (Prevnar 13) 2021-01-05 00:00:00 Completed [facility] TDAP 2021-01-05 00:00:00 Completed [facility] Influenza Virus Vaccine Quad IM, Preserv and ABX Free 6 MO-64 YRS 2021-01-05 00:00:00 Completed [facility] Pneumococcal 13 Conjugate, PCV13 (Prevnar 13) 2021-01-05 00:00:00 Completed [facility] TDAP 2021-01-05 00:00:00 Completed [facility] Influenza Virus Vaccine Quad IM, Preserv and ABX Free 6 MO-64 YRS 2021-01-05 00:00:00 Completed [facility] Pneumococcal 13 Conjugate, PCV13 (Prevnar 13) 2021-01-05 00:00:00 Completed [facility] TDAP 2021-01-05 00:00:00 Completed [facility] Influenza Virus Vaccine Quad IM, Preserv and ABX Free 6 MO-64 YRS 2021-01-05 00:00:00 Completed [facility] Pneumococcal 13 Conjugate, PCV13 (Prevnar 13) 2021-01-05 00:00:00 Completed [facility] TDAP 2021-01-05 00:00:00 Completed [facility] Influenza Virus Vaccine Quad IM, Preserv and ABX Free 6 MO-64 YRS 2021-01-05 00:00:00 Completed [facility] Pneumococcal 13 Conjugate, PCV13 (Prevnar 13) 2021-01-05 00:00:00 Completed [facility] TDAP 2021-01-05 00:00:00 Completed [facility] Influenza Virus Vaccine Quad IM, Preserv and ABX Free 6 MO-64 YRS 2021-01-05 00:00:00 Completed [facility] Pneumococcal 13 Conjugate, PCV13 (Prevnar 13) 2021-01-05 00:00:00 Completed [facility] TDAP 2021-01-05 00:00:00 Completed [facility] Influenza Virus Vaccine Quad IM, Preserv and ABX Free 6 MO-64 YRS 2021-01-05 00:00:00 Completed [facility] Pneumococcal 13 Conjugate, PCV13 (Prevnar 13) 2021-01-05 00:00:00 Completed [facility] TDAP 2021-01-05 00:00:00 Completed [facility] Influenza Virus Vaccine Quad IM, Preserv and ABX Free 6 MO-64 YRS 2021-01-05 00:00:00 Completed [facility] Pneumococcal 13 Conjugate, PCV13 (Prevnar 13) 2021-01-05 00:00:00 Completed [facility] TDAP 2021-01-05 00:00:00 Completed [facility] Influenza Virus Vaccine Quad IM, Preserv and ABX Free 6 MO-64 YRS 2021-01-05 00:00:00 Completed [facility] Pneumococcal 13 Conjugate, PCV13 (Prevnar 13) 2021-01-05 00:00:00 Completed [facility] TDAP 2021-01-05 00:00:00 Completed [facility] Influenza Virus Vaccine Quad IM, Preserv and ABX Free 6 MO-64 YRS 2021-01-05 00:00:00 Completed [facility] Pneumococcal 13 Conjugate, PCV13 (Prevnar 13) 2021-01-05 00:00:00 Completed [facility] TDAP 2021-01-05 00:00:00 Completed [facility] Influenza Virus Vaccine Quad IM, Preserv and ABX Free 6 MO-64 YRS 2021-01-05 00:00:00 Completed [facility] Pneumococcal 13 Conjugate, PCV13 (Prevnar 13) 2021-01-05 00:00:00 Completed [facility] TDAP 2021-01-05 00:00:00 Completed [facility] Influenza Virus Vaccine Quad IM, Preserv and ABX Free 6 MO-64 YRS 2021-01-05 00:00:00 Completed [facility] Pneumococcal 13 Conjugate, PCV13 (Prevnar 13) 2021-01-05 00:00:00 Completed [facility] TDAP 2021-01-05 00:00:00 Completed [facility] Influenza Virus Vaccine Quad IM, Preserv and ABX Free 6 MO-64 YRS 2021-01-05 00:00:00 Completed [facility] Pneumococcal 13 Conjugate, PCV13 (Prevnar 13) 2021-01-05 00:00:00 Completed [facility] TDAP 2021-01-05 00:00:00 Completed [facility] Influenza Virus Vaccine Quad IM, Preserv and ABX Free 6 MO-64 YRS 2021-01-05 00:00:00 Completed [facility] Pneumococcal 13 Conjugate, PCV13 (Prevnar 13) 2021-01-05 00:00:00 Completed [facility] TDAP 2021-01-05 00:00:00 Completed [facility] Influenza Virus Vaccine Quad IM, Preserv and ABX Free 6 MO-64 YRS 2021-01-05 00:00:00 Completed [facility] Pneumococcal 13 Conjugate, PCV13 (Prevnar 13) 2021-01-05 00:00:00 Completed [facility] TDAP 2021-01-05 00:00:00 Completed [facility] Influenza Virus Vaccine Quad IM, Preserv and ABX Free 6 MO-64 YRS 2021-01-05 00:00:00 Completed [facility] Pneumococcal 13 Conjugate, PCV13 (Prevnar 13) 2021-01-05 00:00:00 Completed [facility] TDAP 2021-01-05 00:00:00 Completed [facility] Influenza Virus Vaccine Quad IM, Preserv and ABX Free 6 MO-64 YRS 2021-01-05 00:00:00 Completed [facility] Pneumococcal 13 Conjugate, PCV13 (Prevnar 13) 2021-01-05 00:00:00 Completed [facility] TDAP 2021-01-05 00:00:00 Completed [facility] Influenza Virus Vaccine Quad IM, Preserv and ABX Free 6 MO-64 YRS 2021-01-05 00:00:00 Completed [facility] Pneumococcal 13 Conjugate, PCV13 (Prevnar 13) 2021-01-05 00:00:00 Completed [facility] TDAP 2021-01-05 00:00:00 Completed [facility] Influenza Virus Vaccine Quad IM, Preserv and ABX Free 6 MO-64 YRS 2021-01-05 00:00:00 Completed [facility] Pneumococcal 13 Conjugate, PCV13 (Prevnar 13) 2021-01-05 00:00:00 Completed [facility] TDAP 2021-01-05 00:00:00 Completed [facility] Influenza Virus Vaccine Quad IM, Preserv and ABX Free 6 MO-64 YRS 2021-01-05 00:00:00 Completed [facility] Pneumococcal 13 Conjugate, PCV13 (Prevnar 13) 2021-01-05 00:00:00 Completed [facility] TDAP 2021-01-05 00:00:00 Completed [facility] Influenza Virus Vaccine Quad IM, Preserv and ABX Free 6 MO-64 YRS 2021-01-05 00:00:00 Completed [facility] Pneumococcal 13 Conjugate, PCV13 (Prevnar 13) 2021-01-05 00:00:00 Completed [facility] TDAP 2021-01-05 00:00:00 Completed [facility] Influenza Virus Vaccine Quad IM, Preserv and ABX Free 6 MO-64 YRS 2021-01-05 00:00:00 Completed [facility] Pneumococcal 13 Conjugate, PCV13 (Prevnar 13) 2021-01-05 00:00:00 Completed [facility] TDAP 2021-01-05 00:00:00 Completed [facility] Influenza Virus Vaccine Quad IM, Preserv and ABX Free 6 MO-64 YRS 2021-01-05 00:00:00 Completed [facility] Pneumococcal 13 Conjugate, PCV13 (Prevnar 13) 2021-01-05 00:00:00 Completed [facility] TDAP 2021-01-05 00:00:00 Completed [facility] Influenza Virus Vaccine Quad IM, Preserv and ABX Free 6 MO-64 YRS 2021-01-05 00:00:00 Completed [facility] Pneumococcal 13 Conjugate, PCV13 (Prevnar 13) 2021-01-05 00:00:00 Completed [facility] TDAP 2021-01-05 00:00:00 Completed [facility] Influenza Virus Vaccine Quad IM, Preserv and ABX Free 6 MO-64 YRS 2021-01-05 00:00:00 Completed [facility] Pneumococcal 13 Conjugate, PCV13 (Prevnar 13) 2021-01-05 00:00:00 Completed [facility] TDAP 2021-01-05 00:00:00 Completed [facility] Influenza Virus Vaccine Quad IM, Preserv and ABX Free 6 MO-64 YRS 2021-01-05 00:00:00 Completed [facility] Pneumococcal 13 Conjugate, PCV13 (Prevnar 13) 2021-01-05 00:00:00 Completed [facility] TDAP 2021-01-05 00:00:00 Completed [facility] Influenza Virus Vaccine Quad IM, Preserv and ABX Free 6 MO-64 YRS 2021-01-05 00:00:00 Completed [facility] Pneumococcal 13 Conjugate, PCV13 (Prevnar 13) 2021-01-05 00:00:00 Completed [facility] TDAP 2021-01-05 00:00:00 Completed [facility] Influenza Virus Vaccine Quad IM, Preserv and ABX Free 6 MO-64 YRS 2021-01-05 00:00:00 Completed [facility] Pneumococcal 13 Conjugate, PCV13 (Prevnar 13) 2021-01-05 00:00:00 Completed [facility] TDAP 2021-01-05 00:00:00 Completed [facility] Influenza Virus Vaccine Quad IM, Preserv and ABX Free 6 MO-64 YRS 2021-01-05 00:00:00 Completed [facility] Pneumococcal 13 Conjugate, PCV13 (Prevnar 13) 2021-01-05 00:00:00 Completed [facility] TDAP 2021-01-05 00:00:00 Completed [facility] Influenza Virus Vaccine Quad IM, Preserv and ABX Free 6 MO-64 YRS 2021-01-05 00:00:00 Completed [facility] Pneumococcal 13 Conjugate, PCV13 (Prevnar 13) 2021-01-05 00:00:00 Completed [facility] TDAP 2021-01-05 00:00:00 Completed [facility] Influenza Virus Vaccine Quad IM, Preserv and ABX Free 6 MO-64 YRS 2021-01-05 00:00:00 Completed [facility] Pneumococcal 13 Conjugate, PCV13 (Prevnar 13) 2021-01-05 00:00:00 Completed [facility] TDAP 2021-01-05 00:00:00 Completed [facility] Influenza Virus Vaccine Quad IM, Preserv and ABX Free 6 MO-64 YRS 2021-01-05 00:00:00 Completed [facility] Pneumococcal 13 Conjugate, PCV13 (Prevnar 13) 2021-01-05 00:00:00 Completed [facility] TDAP 2021-01-05 00:00:00 Completed [facility] Influenza Virus Vaccine Quad IM, Preserv and ABX Free 6 MO-64 YRS 2021-01-05 00:00:00 Completed [facility] Pneumococcal 13 Conjugate, PCV13 (Prevnar 13) 2021-01-05 00:00:00 Completed [facility] TDAP 2021-01-05 00:00:00 Completed [facility] Influenza Virus Vaccine Quad IM, Preserv and ABX Free 6 MO-64 YRS 2021-01-05 00:00:00 Completed [facility] Pneumococcal 13 Conjugate, PCV13 (Prevnar 13) 2021-01-05 00:00:00 Completed [facility] TDAP 2021-01-05 00:00:00 Completed [facility] Influenza Virus Vaccine Quad IM, Preserv and ABX Free 6 MO-64 YRS 2021-01-05 00:00:00 Completed [facility] Pneumococcal 13 Conjugate, PCV13 (Prevnar 13) 2021-01-05 00:00:00 Completed [facility] TDAP 2021-01-05 00:00:00 Completed [facility] Influenza Virus Vaccine Quad IM, Preserv and ABX Free 6 MO-64 YRS 2021-01-05 00:00:00 Completed [facility] Pneumococcal 13 Conjugate, PCV13 (Prevnar 13) 2021-01-05 00:00:00 Completed [facility] TDAP 2021-01-05 00:00:00 Completed [facility] Influenza Virus Vaccine Quad IM, Preserv and ABX Free 6 MO-64 YRS 2021-01-05 00:00:00 Completed [facility] Pneumococcal 13 Conjugate, PCV13 (Prevnar 13) 2021-01-05 00:00:00 Completed [facility] TDAP 2021-01-05 00:00:00 Completed [facility] Influenza Virus Vaccine Quad IM, Preserv and ABX Free 6 MO-64 YRS 2021-01-05 00:00:00 Completed [facility] Pneumococcal 13 Conjugate, PCV13 (Prevnar 13) 2021-01-05 00:00:00 Completed [facility] TDAP 2021-01-05 00:00:00 Completed [facility] Influenza Virus Vaccine Quad IM, Preserv and ABX Free 6 MO-64 YRS 2021-01-05 00:00:00 Completed [facility] Pneumococcal 13 Conjugate, PCV13 (Prevnar 13) 2021-01-05 00:00:00 Completed [facility] TDAP 2021-01-05 00:00:00 Completed [facility] Influenza Virus Vaccine Quad IM, Preserv and ABX Free 6 MO-64 YRS 2021-01-05 00:00:00 Completed [facility] Pneumococcal 13 Conjugate, PCV13 (Prevnar 13) 2021-01-05 00:00:00 Completed [facility] TDAP 2021-01-05 00:00:00 Completed [facility] Influenza Virus Vaccine Quad IM, Preserv and ABX Free 6 MO-64 YRS 2021-01-05 00:00:00 Completed [facility] Pneumococcal 13 Conjugate, PCV13 (Prevnar 13) 2021-01-05 00:00:00 Completed [facility] TDAP 2021-01-05 00:00:00 Completed [facility] Influenza Virus Vaccine Quad IM, Preserv and ABX Free 6 MO-64 YRS 2021-01-05 00:00:00 Completed [facility] Pneumococcal 13 Conjugate, PCV13 (Prevnar 13) 2021-01-05 00:00:00 Completed [facility] TDAP 2021-01-05 00:00:00 Completed [facility] Influenza Virus Vaccine Quad IM, Preserv and ABX Free 6 MO-64 YRS 2021-01-05 00:00:00 Completed [facility] Pneumococcal 13 Conjugate, PCV13 (Prevnar 13) 2021-01-05 00:00:00 Completed [facility] TDAP 2021-01-05 00:00:00 Completed [facility] Influenza Virus Vaccine Quad IM, Preserv and ABX Free 6 MO-64 YRS 2021-01-05 00:00:00 Completed [facility] Pneumococcal 13 Conjugate, PCV13 (Prevnar 13) 2021-01-05 00:00:00 Completed [facility] TDAP 2021-01-05 00:00:00 Completed [facility] Influenza Virus Vaccine Quad IM, Preserv and ABX Free 6 MO-64 YRS 2021-01-05 00:00:00 Completed [facility] Pneumococcal 13 Conjugate, PCV13 (Prevnar 13) 2021-01-05 00:00:00 Completed [facility] TDAP 2021-01-05 00:00:00 Completed [facility] Influenza Virus Vaccine Quad IM, Preserv and ABX Free 6 MO-64 YRS 2021-01-05 00:00:00 Completed [facility] Pneumococcal 13 Conjugate, PCV13 (Prevnar 13) 2021-01-05 00:00:00 Completed [facility] TDAP 2021-01-05 00:00:00 Completed [facility] Influenza Virus Vaccine Quad IM, Preserv and ABX Free 6 MO-64 YRS 2021-01-05 00:00:00 Completed [facility] Pneumococcal 13 Conjugate, PCV13 (Prevnar 13) 2021-01-05 00:00:00 Completed [facility] TDAP 2021-01-05 00:00:00 Completed [facility] Influenza Virus Vaccine Quad IM, Preserv and ABX Free 6 MO-64 YRS 2021-01-05 00:00:00 Completed [facility] Pneumococcal 13 Conjugate, PCV13 (Prevnar 13) 2021-01-05 00:00:00 Completed [facility] TDAP 2021-01-05 00:00:00 Completed [facility] Influenza Virus Vaccine Quad IM, Preserv and ABX Free 6 MO-64 YRS 2021-01-05 00:00:00 Completed [facility] SARS-COV-2 COVID-19 PFIZER VACCINE 2020-10-10 00:00:00 Completed [facility] SARS-COV-2 COVID-19 PFIZER VACCINE 2020-10-10 00:00:00 [facility] [facility] SARS-COV-2 COVID-19 PFIZER VACCINE 2020-10-10 00:00:00 Completed [facility] SARS-COV-2 COVID-19 PFIZER VACCINE 2020-10-10 00:00:00 Completed [facility] SARS-COV-2 COVID-19 PFIZER VACCINE 2020-10-10 00:00:00 Completed [facility] SARS-COV-2 COVID-19 PFIZER VACCINE 2020-10-10 00:00:00 Completed [facility] SARS-COV-2 COVID-19 PFIZER VACCINE 2020-10-10 00:00:00 Completed [facility] SARS-COV-2 COVID-19 PFIZER VACCINE 2020-10-10 00:00:00 Completed [facility] SARS-COV-2 COVID-19 PFIZER VACCINE 2020-10-10 00:00:00 Completed [facility] SARS-COV-2 COVID-19 PFIZER VACCINE 2020-10-10 00:00:00 Completed [facility] SARS-COV-2 COVID-19 PFIZER VACCINE 2020-10-10 00:00:00 Completed [facility] SARS-COV-2 COVID-19 PFIZER VACCINE 2020-10-10 00:00:00 Completed [facility] SARS-COV-2 COVID-19 PFIZER VACCINE 2020-10-10 00:00:00 Completed [facility] SARS-COV-2 COVID-19 PFIZER VACCINE 2020-10-10 00:00:00 Completed [facility] SARS-COV-2 COVID-19 PFIZER VACCINE 2020-10-10 00:00:00 Completed [facility] SARS-COV-2 COVID-19 PFIZER VACCINE 2020-10-10 00:00:00 Completed [facility] SARS-COV-2 COVID-19 PFIZER VACCINE 2020-10-10 00:00:00 Completed [facility] SARS-COV-2 COVID-19 PFIZER VACCINE 2020-10-10 00:00:00 Completed [facility] SARS-COV-2 COVID-19 PFIZER VACCINE 2020-10-10 00:00:00 Completed [facility] SARS-COV-2 COVID-19 PFIZER VACCINE 2020-10-10 00:00:00 Completed [facility] SARS-COV-2 COVID-19 PFIZER VACCINE 2020-10-10 00:00:00 Completed [facility] SARS-COV-2 COVID-19 PFIZER VACCINE 2020-10-10 00:00:00 Completed [facility] SARS-COV-2 COVID-19 PFIZER VACCINE 2020-10-10 00:00:00 Completed [facility] SARS-COV-2 COVID-19 PFIZER VACCINE 2020-10-10 00:00:00 Completed [facility] SARS-COV-2 COVID-19 PFIZER VACCINE 2020-10-10 00:00:00 Completed [facility] SARS-COV-2 COVID-19 PFIZER VACCINE 2020-10-10 00:00:00 Completed [facility] SARS-COV-2 COVID-19 PFIZER VACCINE 2020-10-10 00:00:00 Completed [facility] SARS-COV-2 COVID-19 PFIZER VACCINE 2020-10-10 00:00:00 Completed [facility] SARS-COV-2 COVID-19 PFIZER VACCINE 2020-10-10 00:00:00 Completed [facility] SARS-COV-2 COVID-19 PFIZER VACCINE 2020-10-10 00:00:00 Completed [facility] SARS-COV-2 COVID-19 PFIZER VACCINE 2020-10-10 00:00:00 Completed [facility] SARS-COV-2 COVID-19 PFIZER VACCINE 2020-10-10 00:00:00 Completed [facility] SARS-COV-2 COVID-19 PFIZER VACCINE 2020-10-10 00:00:00 Completed [facility] SARS-COV-2 COVID-19 PFIZER VACCINE 2020-10-10 00:00:00 Completed [facility] SARS-COV-2 COVID-19 PFIZER VACCINE 2020-10-10 00:00:00 Completed [facility] SARS-COV-2 COVID-19 PFIZER VACCINE 2020-10-10 00:00:00 Completed [facility] SARS-COV-2 COVID-19 PFIZER VACCINE 2020-10-10 00:00:00 Completed [facility] SARS-COV-2 COVID-19 PFIZER VACCINE 2020-10-10 00:00:00 Completed [facility] SARS-COV-2 COVID-19 PFIZER VACCINE 2020-10-10 00:00:00 Completed [facility] SARS-COV-2 COVID-19 PFIZER VACCINE 2020-10-10 00:00:00 Completed [facility] SARS-COV-2 COVID-19 PFIZER VACCINE 2020-10-10 00:00:00 Completed [facility] SARS-COV-2 COVID-19 PFIZER VACCINE 2020-10-10 00:00:00 Completed [facility] SARS-COV-2 COVID-19 PFIZER VACCINE 2020-10-10 00:00:00 Completed [facility] SARS-COV-2 COVID-19 PFIZER VACCINE 2020-10-10 00:00:00 Completed [facility] SARS-COV-2 COVID-19 PFIZER VACCINE 2020-10-10 00:00:00 Completed [facility] SARS-COV-2 COVID-19 PFIZER VACCINE 2020-10-10 00:00:00 Completed [facility] SARS-COV-2 COVID-19 PFIZER VACCINE 2020-06-25 00:00:00 Completed [facility] SARS-COV-2 COVID-19 PFIZER VACCINE 2020-06-25 00:00:00 Completed [facility] SARS-COV-2 COVID-19 PFIZER VACCINE 2020-06-25 00:00:00 Completed [facility] SARS-COV-2 COVID-19 PFIZER VACCINE 2020-06-25 00:00:00 Completed [facility] SARS-COV-2 COVID-19 PFIZER VACCINE 2020-06-25 00:00:00 Completed [facility] SARS-COV-2 COVID-19 PFIZER VACCINE 2020-06-25 00:00:00 Completed [facility] SARS-COV-2 COVID-19 PFIZER VACCINE 2020-06-25 00:00:00 Completed [facility] SARS-COV-2 COVID-19 PFIZER VACCINE 2020-06-25 00:00:00 Completed [facility] SARS-COV-2 COVID-19 PFIZER VACCINE 2020-06-25 00:00:00 Completed [facility] SARS-COV-2 COVID-19 PFIZER VACCINE 2020-06-25 00:00:00 Completed [facility] SARS-COV-2 COVID-19 PFIZER VACCINE 2020-06-25 00:00:00 Completed [facility] SARS-COV-2 COVID-19 PFIZER VACCINE 2020-06-25 00:00:00 Completed [facility] SARS-COV-2 COVID-19 PFIZER VACCINE 2020-06-25 00:00:00 Completed [facility] SARS-COV-2 COVID-19 PFIZER VACCINE 2020-06-25 00:00:00 Completed [facility] SARS-COV-2 COVID-19 PFIZER VACCINE 2020-06-25 00:00:00 Completed [facility] SARS-COV-2 COVID-19 PFIZER VACCINE 2020-06-25 00:00:00 Completed [facility] SARS-COV-2 COVID-19 PFIZER VACCINE 2020-06-25 00:00:00 Completed [facility] SARS-COV-2 COVID-19 PFIZER VACCINE 2020-06-25 00:00:00 Completed [facility] SARS-COV-2 COVID-19 PFIZER VACCINE 2020-06-25 00:00:00 Completed [facility] SARS-COV-2 COVID-19 PFIZER VACCINE 2020-06-25 00:00:00 Completed [facility] SARS-COV-2 COVID-19 PFIZER VACCINE 2020-06-25 00:00:00 Completed [facility] SARS-COV-2 COVID-19 PFIZER VACCINE 2020-06-25 00:00:00 Completed [facility] SARS-COV-2 COVID-19 PFIZER VACCINE 2020-06-25 00:00:00 Completed [facility] SARS-COV-2 COVID-19 PFIZER VACCINE 2020-06-25 00:00:00 Completed [facility] SARS-COV-2 COVID-19 PFIZER VACCINE 2020-06-25 00:00:00 Completed [facility] SARS-COV-2 COVID-19 PFIZER VACCINE 2020-06-25 00:00:00 Completed [facility] SARS-COV-2 COVID-19 PFIZER VACCINE 2020-06-25 00:00:00 Completed [facility] SARS-COV-2 COVID-19 PFIZER VACCINE 2020-06-25 00:00:00 Completed [facility] SARS-COV-2 COVID-19 PFIZER VACCINE 2020-06-25 00:00:00 Completed [facility] SARS-COV-2 COVID-19 PFIZER VACCINE 2020-06-25 00:00:00 Completed [facility] SARS-COV-2 COVID-19 PFIZER VACCINE 2020-06-25 00:00:00 Completed [facility] SARS-COV-2 COVID-19 PFIZER VACCINE 2020-06-25 00:00:00 Completed [facility] SARS-COV-2 COVID-19 PFIZER VACCINE 2020-06-25 00:00:00 Completed [facility] SARS-COV-2 COVID-19 PFIZER VACCINE 2020-06-25 00:00:00 Completed [facility] SARS-COV-2 COVID-19 PFIZER VACCINE 2020-06-25 00:00:00 Completed [facility] SARS-COV-2 COVID-19 PFIZER VACCINE 2020-06-25 00:00:00 Completed [facility] SARS-COV-2 COVID-19 PFIZER VACCINE 2020-06-25 00:00:00 Completed [facility] SARS-COV-2 COVID-19 PFIZER VACCINE 2020-06-25 00:00:00 Completed [facility] SARS-COV-2 COVID-19 PFIZER VACCINE 2020-06-25 00:00:00 Completed [facility] SARS-COV-2 COVID-19 PFIZER VACCINE 2020-06-25 00:00:00 Completed [facility] SARS-COV-2 COVID-19 PFIZER VACCINE 2020-06-25 00:00:00 Completed [facility] SARS-COV-2 COVID-19 PFIZER VACCINE 2020-06-25 00:00:00 Completed [facility] SARS-COV-2 COVID-19 PFIZER VACCINE 2020-06-25 00:00:00 Completed [facility] SARS-COV-2 COVID-19 PFIZER VACCINE 2020-06-25 00:00:00 Completed [facility] SARS-COV-2 COVID-19 PFIZER VACCINE 2020-06-25 00:00:00 Completed [facility] SARS-COV-2 COVID-19 PFIZER VACCINE 2020-06-25 00:00:00 Completed [facility] SARS-COV-2 COVID-19 PFIZER VACCINE 2020-06-25 00:00:00 Completed [facility] SARS-COV-2 COVID-19 PFIZER VACCINE 2020-06-25 00:00:00 Completed [facility] SARS-COV-2 COVID-19 PFIZER VACCINE 2020-06-25 00:00:00 Completed [facility] SARS-COV-2 COVID-19 PFIZER VACCINE 2020-06-25 00:00:00 Completed [facility] SARS-COV-2 COVID-19 PFIZER VACCINE 2020-06-25 00:00:00 Completed [facility] SARS-COV-2 COVID-19 PFIZER VACCINE 2020-06-25 00:00:00 Completed [facility] SARS-COV-2 COVID-19 PFIZER VACCINE 2020-06-25 00:00:00 Completed [facility] SARS-COV-2 COVID-19 PFIZER VACCINE 2020-06-25 00:00:00 Completed [facility] SARS-COV-2 COVID-19 PFIZER VACCINE 2020-06-25 00:00:00 Completed [facility] SARS-COV-2 COVID-19 PFIZER VACCINE 2020-06-25 00:00:00 Completed [facility] SARS-COV-2 COVID-19 PFIZER VACCINE 2020-06-25 00:00:00 Completed [facility] SARS-COV-2 COVID-19 PFIZER VACCINE 2020-06-25 00:00:00 Completed [facility] SARS-COV-2 COVID-19 PFIZER VACCINE 2020-06-25 00:00:00 Completed [facility] SARS-COV-2 COVID-19 PFIZER VACCINE 2020-06-25 00:00:00 Completed [facility] SARS-COV-2 COVID-19 PFIZER VACCINE 2020-06-25 00:00:00 Completed [facility] SARS-COV-2 COVID-19 PFIZER VACCINE 2020-06-25 00:00:00 Completed [facility] SARS-COV-2 COVID-19 PFIZER VACCINE 2020-06-25 00:00:00 Completed [facility] SARS-COV-2 COVID-19 PFIZER VACCINE 2020-06-04 00:00:00 Completed [facility] SARS-COV-2 COVID-19 PFIZER VACCINE 2020-06-04 00:00:00 Completed [facility] SARS-COV-2 COVID-19 PFIZER VACCINE 2020-06-04 00:00:00 Completed [facility] SARS-COV-2 COVID-19 PFIZER VACCINE 2020-06-04 00:00:00 Completed [facility] SARS-COV-2 COVID-19 PFIZER VACCINE 2020-06-04 00:00:00 Completed [facility] SARS-COV-2 COVID-19 PFIZER VACCINE 2020-06-04 00:00:00 Completed [facility] SARS-COV-2 COVID-19 PFIZER VACCINE 2020-06-04 00:00:00 Completed [facility] SARS-COV-2 COVID-19 PFIZER VACCINE 2020-06-04 00:00:00 Completed [facility] SARS-COV-2 COVID-19 PFIZER VACCINE 2020-06-04 00:00:00 Completed [facility] SARS-COV-2 COVID-19 PFIZER VACCINE 2020-06-04 00:00:00 Completed [facility] SARS-COV-2 COVID-19 PFIZER VACCINE 2020-06-04 00:00:00 Completed [facility] SARS-COV-2 COVID-19 PFIZER VACCINE 2020-06-04 00:00:00 Completed [facility] SARS-COV-2 COVID-19 PFIZER VACCINE 2020-06-04 00:00:00 Completed [facility] SARS-COV-2 COVID-19 PFIZER VACCINE 2020-06-04 00:00:00 Completed [facility] SARS-COV-2 COVID-19 PFIZER VACCINE 2020-06-04 00:00:00 Completed [facility] SARS-COV-2 COVID-19 PFIZER VACCINE 2020-06-04 00:00:00 Completed [facility] SARS-COV-2 COVID-19 PFIZER VACCINE 2020-06-04 00:00:00 Completed [facility] SARS-COV-2 COVID-19 PFIZER VACCINE 2020-06-04 00:00:00 Completed [facility] SARS-COV-2 COVID-19 PFIZER VACCINE 2020-06-04 00:00:00 Completed [facility] SARS-COV-2 COVID-19 PFIZER VACCINE 2020-06-04 00:00:00 Completed [facility] SARS-COV-2 COVID-19 PFIZER VACCINE 2020-06-04 00:00:00 Completed [facility] SARS-COV-2 COVID-19 PFIZER VACCINE 2020-06-04 00:00:00 Completed [facility] SARS-COV-2 COVID-19 PFIZER VACCINE 2020-06-04 00:00:00 Completed [facility] SARS-COV-2 COVID-19 PFIZER VACCINE 2020-06-04 00:00:00 Completed [facility] SARS-COV-2 COVID-19 PFIZER VACCINE 2020-06-04 00:00:00 Completed [facility] SARS-COV-2 COVID-19 PFIZER VACCINE 2020-06-04 00:00:00 Completed [facility] SARS-COV-2 COVID-19 PFIZER VACCINE 2020-06-04 00:00:00 Completed [facility] SARS-COV-2 COVID-19 PFIZER VACCINE 2020-06-04 00:00:00 Completed [facility] SARS-COV-2 COVID-19 PFIZER VACCINE 2020-06-04 00:00:00 Completed [facility] SARS-COV-2 COVID-19 PFIZER VACCINE 2020-06-04 00:00:00 Completed [facility] SARS-COV-2 COVID-19 PFIZER VACCINE 2020-06-04 00:00:00 Completed [facility] SARS-COV-2 COVID-19 PFIZER VACCINE 2020-06-04 00:00:00 Completed [facility] SARS-COV-2 COVID-19 PFIZER VACCINE 2020-06-04 00:00:00 Completed [facility] SARS-COV-2 COVID-19 PFIZER VACCINE 2020-06-04 00:00:00 Completed [facility] SARS-COV-2 COVID-19 PFIZER VACCINE 2020-06-04 00:00:00 Completed [facility] SARS-COV-2 COVID-19 PFIZER VACCINE 2020-06-04 00:00:00 Completed [facility] SARS-COV-2 COVID-19 PFIZER VACCINE 2020-06-04 00:00:00 Completed [facility] SARS-COV-2 COVID-19 PFIZER VACCINE 2020-06-04 00:00:00 Completed [facility] SARS-COV-2 COVID-19 PFIZER VACCINE 2020-06-04 00:00:00 Completed [facility] SARS-COV-2 COVID-19 PFIZER VACCINE 2020-06-04 00:00:00 Completed [facility] SARS-COV-2 COVID-19 PFIZER VACCINE 2020-06-04 00:00:00 Completed [facility] SARS-COV-2 COVID-19 PFIZER VACCINE 2020-06-04 00:00:00 Completed [facility] SARS-COV-2 COVID-19 PFIZER VACCINE 2020-06-04 00:00:00 Completed [facility] SARS-COV-2 COVID-19 PFIZER VACCINE 2020-06-04 00:00:00 Completed [facility] SARS-COV-2 COVID-19 PFIZER VACCINE 2020-06-04 00:00:00 Completed [facility] SARS-COV-2 COVID-19 PFIZER VACCINE 2020-06-04 00:00:00 Completed [facility] SARS-COV-2 COVID-19 PFIZER VACCINE 2020-06-04 00:00:00 Completed [facility] SARS-COV-2 COVID-19 PFIZER VACCINE 2020-06-04 00:00:00 Completed [facility] SARS-COV-2 COVID-19 PFIZER VACCINE 2020-06-04 00:00:00 Completed [facility] SARS-COV-2 COVID-19 PFIZER VACCINE 2020-06-04 00:00:00 Completed [facility] SARS-COV-2 COVID-19 PFIZER VACCINE 2020-06-04 00:00:00 Completed [facility] SARS-COV-2 COVID-19 PFIZER VACCINE 2020-06-04 00:00:00 Completed [facility] SARS-COV-2 COVID-19 PFIZER VACCINE 2020-06-04 00:00:00 Completed [facility] SARS-COV-2 COVID-19 PFIZER VACCINE 2020-06-04 00:00:00 Completed [facility] SARS-COV-2 COVID-19 PFIZER VACCINE 2020-06-04 00:00:00 Completed [facility] SARS-COV-2 COVID-19 PFIZER VACCINE 2020-06-04 00:00:00 Completed [facility] SARS-COV-2 COVID-19 PFIZER VACCINE 2020-06-04 00:00:00 Completed [facility] SARS-COV-2 COVID-19 PFIZER VACCINE 2020-06-04 00:00:00 Completed [facility] SARS-COV-2 COVID-19 PFIZER VACCINE 2020-06-04 00:00:00 Completed [facility] SARS-COV-2 COVID-19 PFIZER VACCINE 2020-06-04 00:00:00 Completed [facility] SARS-COV-2 COVID-19 PFIZER VACCINE 2020-06-04 00:00:00 Completed [facility] SARS-COV-2 COVID-19 PFIZER VACCINE 2020-06-04 00:00:00 Completed [facility] SARS-COV-2 COVID-19 PFIZER VACCINE 2020-06-04 00:00:00 Completed [facility] Influenza Virus Vaccine Quad IM, Preserv and ABX Free 6 MO-64 YRS 2019-04-09 00:00:00 Completed [facility] Influenza Virus Vaccine Quad IM, Preserv and ABX Free 6 MO-64 YRS 2019-04-09 00:00:00 Completed [facility] Influenza Virus Vaccine Quad IM, Preserv and ABX Free 6 MO-64 YRS 2019-04-09 00:00:00 Completed [facility] Influenza Virus Vaccine Quad IM, Preserv and ABX Free 6 MO-64 YRS 2019-04-09 00:00:00 Completed [facility] Influenza Virus Vaccine Quad IM, Preserv and ABX Free 6 MO-64 YRS 2019-04-09 00:00:00 Completed [facility] Influenza Virus Vaccine Quad IM, Preserv and ABX Free 6 MO-64 YRS 2019-04-09 00:00:00 Completed [facility] Influenza Virus Vaccine Quad IM, Preserv and ABX Free 6 MO-64 YRS 2019-04-09 00:00:00 Completed [facility] Influenza Virus Vaccine Quad IM, Preserv and ABX Free 6 MO-64 YRS 2019-04-09 00:00:00 Completed [facility] Influenza Virus Vaccine Quad IM, Preserv and ABX Free 6 MO-64 YRS 2019-04-09 00:00:00 Completed [facility] Influenza Virus Vaccine Quad IM, Preserv and ABX Free 6 MO-64 YRS 2019-04-09 00:00:00 Completed [facility] Influenza Virus Vaccine Quad IM, Preserv and ABX Free 6 MO-64 YRS 2019-04-09 00:00:00 Completed [facility] Influenza Virus Vaccine Quad IM, Preserv and ABX Free 6 MO-64 YRS 2019-04-09 00:00:00 Completed [facility] Influenza Virus Vaccine Quad IM, Preserv and ABX Free 6 MO-64 YRS 2019-04-09 00:00:00 Completed [facility] Influenza Virus Vaccine Quad IM, Preserv and ABX Free 6 MO-64 YRS 2019-04-09 00:00:00 Completed [facility] Influenza Virus Vaccine Quad IM, Preserv and ABX Free 6 MO-64 YRS 2019-04-09 00:00:00 Completed [facility] Influenza Virus Vaccine Quad IM, Preserv and ABX Free 6 MO-64 YRS 2019-04-09 00:00:00 Completed [facility] Influenza Virus Vaccine Quad IM, Preserv and ABX Free 6 MO-64 YRS 2019-04-09 00:00:00 Completed [facility] Influenza Virus Vaccine Quad IM, Preserv and ABX Free 6 MO-64 YRS 2019-04-09 00:00:00 Completed [facility] Influenza Virus Vaccine Quad IM, Preserv and ABX Free 6 MO-64 YRS 2019-04-09 00:00:00 Completed [facility] Influenza Virus Vaccine Quad IM, Preserv and ABX Free 6 MO-64 YRS 2019-04-09 00:00:00 Completed [facility] Influenza Virus Vaccine Quad IM, Preserv and ABX Free 6 MO-64 YRS 2019-04-09 00:00:00 Completed [facility] Influenza Virus Vaccine Quad IM, Preserv and ABX Free 6 MO-64 YRS 2019-04-09 00:00:00 Completed [facility] Influenza Virus Vaccine Quad IM, Preserv and ABX Free 6 MO-64 YRS 2019-04-09 00:00:00 Completed [facility] Influenza Virus Vaccine Quad IM, Preserv and ABX Free 6 MO-64 YRS 2019-04-09 00:00:00 Completed [facility] Influenza Virus Vaccine Quad IM, Preserv and ABX Free 6 MO-64 YRS 2019-04-09 00:00:00 Completed [facility] Influenza Virus Vaccine Quad IM, Preserv and ABX Free 6 MO-64 YRS 2019-04-09 00:00:00 Completed [facility] Influenza Virus Vaccine Quad IM, Preserv and ABX Free 6 MO-64 YRS 2019-04-09 00:00:00 Completed [facility] Influenza Virus Vaccine Quad IM, Preserv and ABX Free 6 MO-64 YRS 2019-04-09 00:00:00 Completed [facility] Influenza Virus Vaccine Quad IM, Preserv and ABX Free 6 MO-64 YRS 2019-04-09 00:00:00 Completed [facility] Influenza Virus Vaccine Quad IM, Preserv and ABX Free 6 MO-64 YRS 2019-04-09 00:00:00 Completed [facility] Influenza Virus Vaccine Quad IM, Preserv and ABX Free 6 MO-64 YRS 2019-04-09 00:00:00 Completed [facility] Influenza Virus Vaccine Quad IM, Preserv and ABX Free 6 MO-64 YRS 2019-04-09 00:00:00 Completed [facility] Influenza Virus Vaccine Quad IM, Preserv and ABX Free 6 MO-64 YRS 2019-04-09 00:00:00 Completed [facility] Influenza Virus Vaccine Quad IM, Preserv and ABX Free 6 MO-64 YRS 2019-04-09 00:00:00 Completed [facility] Influenza Virus Vaccine Quad IM, Preserv and ABX Free 6 MO-64 YRS 2019-04-09 00:00:00 Completed [facility] Influenza Virus Vaccine Quad IM, Preserv and ABX Free 6 MO-64 YRS 2019-04-09 00:00:00 Completed [facility] Influenza Virus Vaccine Quad IM, Preserv and ABX Free 6 MO-64 YRS 2019-04-09 00:00:00 Completed [facility] Influenza Virus Vaccine Quad IM, Preserv and ABX Free 6 MO-64 YRS 2019-04-09 00:00:00 Completed [facility] Influenza Virus Vaccine Quad IM, Preserv and ABX Free 6 MO-64 YRS 2019-04-09 00:00:00 Completed [facility] Influenza Virus Vaccine Quad IM, Preserv and ABX Free 6 MO-64 YRS 2019-04-09 00:00:00 Completed [facility] Influenza Virus Vaccine Quad IM, Preserv and ABX Free 6 MO-64 YRS 2019-04-09 00:00:00 Completed [facility] Influenza Virus Vaccine Quad IM, Preserv and ABX Free 6 MO-64 YRS 2019-04-09 00:00:00 Completed [facility] Influenza Virus Vaccine Quad IM, Preserv and ABX Free 6 MO-64 YRS 2019-04-09 00:00:00 Completed [facility] Influenza Virus Vaccine Quad IM, Preserv and ABX Free 6 MO-64 YRS 2019-04-09 00:00:00 Completed [facility] Influenza Virus Vaccine Quad IM, Preserv and ABX Free 6 MO-64 YRS 2019-04-09 00:00:00 Completed [facility] Flucelvax - single dose syringe Flucelvax - single dose syringe 2019-04-09 00:00:00 Completed [facility] Influenza Virus Vaccine Quad .5 mL IM 6+ MO 2018-01-14 00:00:00 Completed [facility] Influenza Virus Vaccine 2018-01-14 00:00:00 Completed [facility] Influenza Virus Vaccine Quad .5 mL IM 6+ MO 2018-01-14 00:00:00 Completed [facility] Influenza Virus Vaccine 2018-01-14 00:00:00 Completed [facility] Influenza Virus Vaccine Quad .5 mL IM 6+ MO 2018-01-14 00:00:00 Completed [facility] Influenza Virus Vaccine 2018-01-14 00:00:00 Completed [facility] Influenza Virus Vaccine Quad .5 mL IM 6+ MO 2018-01-14 00:00:00 Completed [facility] Influenza Virus Vaccine 2018-01-14 00:00:00 Completed [facility] Influenza Virus Vaccine Quad .5 mL IM 6+ MO 2018-01-14 00:00:00 Completed [facility] Influenza Virus Vaccine 2018-01-14 00:00:00 Completed [facility] Influenza Virus Vaccine Quad .5 mL IM 6+ MO 2018-01-14 00:00:00 Completed [facility] Influenza Virus Vaccine 2018-01-14 00:00:00 Completed [facility] Influenza Virus Vaccine Quad .5 mL IM 6+ MO 2018-01-14 00:00:00 Completed [facility] Influenza Virus Vaccine 2018-01-14 00:00:00 Completed [facility] Influenza Virus Vaccine Quad .5 mL IM 6+ MO 2018-01-14 00:00:00 Completed [facility] Influenza Virus Vaccine 2018-01-14 00:00:00 Completed [facility] Influenza Virus Vaccine Quad .5 mL IM 6+ MO 2018-01-14 00:00:00 Completed [facility] Influenza Virus Vaccine 2018-01-14 00:00:00 Completed [facility] Influenza Virus Vaccine Quad .5 mL IM 6+ MO 2018-01-14 00:00:00 Completed [facility] Influenza Virus Vaccine 2018-01-14 00:00:00 Completed [facility] Influenza Virus Vaccine Quad .5 mL IM 6+ MO 2018-01-14 00:00:00 Completed [facility] Influenza Virus Vaccine 2018-01-14 00:00:00 Completed [facility] Influenza Virus Vaccine Quad .5 mL IM 6+ MO 2018-01-14 00:00:00 Completed [facility] Influenza Virus Vaccine 2018-01-14 00:00:00 Completed [facility] Influenza Virus Vaccine Quad .5 mL IM 6+ MO 2018-01-14 00:00:00 Completed [facility] Influenza Virus Vaccine 2018-01-14 00:00:00 Completed [facility] Influenza Virus Vaccine Quad .5 mL IM 6+ MO 2018-01-14 00:00:00 Completed [facility] Influenza Virus Vaccine 2018-01-14 00:00:00 Completed [facility] Influenza Virus Vaccine Quad .5 mL IM 6+ MO 2018-01-14 00:00:00 Completed [facility] Influenza Virus Vaccine 2018-01-14 00:00:00 Completed [facility] Influenza Virus Vaccine Quad .5 mL IM 6+ MO 2018-01-14 00:00:00 Completed [facility] Influenza Virus Vaccine 2018-01-14 00:00:00 Completed [facility] Influenza Virus Vaccine Quad .5 mL IM 6+ MO 2018-01-14 00:00:00 Completed [facility] Influenza Virus Vaccine 2018-01-14 00:00:00 Completed [facility] Influenza Virus Vaccine Quad .5 mL IM 6+ MO 2018-01-14 00:00:00 Completed [facility] Influenza Virus Vaccine 2018-01-14 00:00:00 Completed [facility] Influenza Virus Vaccine Quad .5 mL IM 6+ MO 2018-01-14 00:00:00 Completed [facility] Influenza Virus Vaccine 2018-01-14 00:00:00 Completed [facility] Influenza Virus Vaccine Quad .5 mL IM 6+ MO 2018-01-14 00:00:00 Completed [facility] Influenza Virus Vaccine 2018-01-14 00:00:00 Completed [facility] Influenza Virus Vaccine Quad .5 mL IM 6+ MO 2018-01-14 00:00:00 Completed [facility] Influenza Virus Vaccine 2018-01-14 00:00:00 Completed [facility] Influenza Virus Vaccine Quad .5 mL IM 6+ MO 2018-01-14 00:00:00 Completed [facility] Influenza Virus Vaccine 2018-01-14 00:00:00 Completed [facility] Influenza Virus Vaccine Quad .5 mL IM 6+ MO 2018-01-14 00:00:00 Completed [facility] Influenza Virus Vaccine 2018-01-14 00:00:00 Completed [facility] Influenza Virus Vaccine Quad .5 mL IM 6+ MO 2018-01-14 00:00:00 Completed [facility] Influenza Virus Vaccine 2018-01-14 00:00:00 Completed [facility] Influenza Virus Vaccine Quad .5 mL IM 6+ MO 2018-01-14 00:00:00 Completed [facility] Influenza Virus Vaccine 2018-01-14 00:00:00 Completed [facility] Influenza Virus Vaccine Quad .5 mL IM 6+ MO 2018-01-14 00:00:00 Completed [facility] Influenza Virus Vaccine 2018-01-14 00:00:00 Completed [facility] Influenza Virus Vaccine Quad .5 mL IM 6+ MO 2018-01-14 00:00:00 Completed [facility] Influenza Virus Vaccine 2018-01-14 00:00:00 Completed [facility] Influenza Virus Vaccine Quad .5 mL IM 6+ MO 2018-01-14 00:00:00 Completed [facility] Influenza Virus Vaccine 2018-01-14 00:00:00 Completed [facility] Influenza Virus Vaccine Quad .5 mL IM 6+ MO 2018-01-14 00:00:00 Completed [facility] Influenza Virus Vaccine 2018-01-14 00:00:00 Completed [facility] Influenza Virus Vaccine Quad .5 mL IM 6+ MO 2018-01-14 00:00:00 Completed [facility] Influenza Virus Vaccine 2018-01-14 00:00:00 Completed [facility] Influenza Virus Vaccine Quad .5 mL IM 6+ MO 2018-01-14 00:00:00 Completed [facility] Influenza Virus Vaccine 2018-01-14 00:00:00 Completed [facility] Influenza Virus Vaccine Quad .5 mL IM 6+ MO 2018-01-14 00:00:00 Completed [facility] Influenza Virus Vaccine 2018-01-14 00:00:00 Completed [facility] Influenza Virus Vaccine Quad .5 mL IM 6+ MO 2018-01-14 00:00:00 Completed [facility] Influenza Virus Vaccine 2018-01-14 00:00:00 Completed [facility] Influenza Virus Vaccine Quad .5 mL IM 6+ MO 2018-01-14 00:00:00 Completed [facility] Influenza Virus Vaccine 2018-01-14 00:00:00 Completed [facility] Influenza Virus Vaccine Quad .5 mL IM 6+ MO 2018-01-14 00:00:00 Completed [facility] Influenza Virus Vaccine 2018-01-14 00:00:00 Completed [facility] Influenza Virus Vaccine Quad .5 mL IM 6+ MO 2018-01-14 00:00:00 Completed [facility] Influenza Virus Vaccine 2018-01-14 00:00:00 Completed [facility] Influenza Virus Vaccine Quad .5 mL IM 6+ MO 2018-01-14 00:00:00 Completed [facility] Influenza Virus Vaccine 2018-01-14 00:00:00 Completed [facility] Influenza Virus Vaccine Quad .5 mL IM 6+ MO 2018-01-14 00:00:00 Completed [facility] Influenza Virus Vaccine 2018-01-14 00:00:00 Completed [facility] Influenza Virus Vaccine Quad .5 mL IM 6+ MO 2018-01-14 00:00:00 Completed [facility] Influenza Virus Vaccine 2018-01-14 00:00:00 Completed [facility] Influenza Virus Vaccine Quad .5 mL IM 6+ MO 2018-01-14 00:00:00 Completed [facility] Influenza Virus Vaccine 2018-01-14 00:00:00 Completed [facility] Influenza Virus Vaccine Quad .5 mL IM 6+ MO 2018-01-14 00:00:00 Completed [facility] Influenza Virus Vaccine 2018-01-14 00:00:00 Completed [facility] Influenza Virus Vaccine Quad .5 mL IM 6+ MO 2018-01-14 00:00:00 Completed [facility] Influenza Virus Vaccine 2018-01-14 00:00:00 Completed [facility] Influenza Virus Vaccine Quad .5 mL IM 6+ MO 2018-01-14 00:00:00 Completed [facility] Influenza Virus Vaccine 2018-01-14 00:00:00 Completed [facility] Influenza Virus Vaccine Quad .5 mL IM 6+ MO 2018-01-14 00:00:00 Completed [facility] Influenza Virus Vaccine 2018-01-14 00:00:00 Completed [facility] Influenza Virus Vaccine Quad .5 mL IM 6+ MO 2018-01-14 00:00:00 Completed [facility] Influenza Virus Vaccine 2018-01-14 00:00:00 Completed [facility] Influenza Virus Vaccine Quad .5 mL IM 6+ MO 2018-01-14 00:00:00 Completed [facility] Influenza Virus Vaccine 2018-01-14 00:00:00 Completed [facility] Influenza Virus Vaccine Quad .5 mL IM 6+ MO 2018-01-14 00:00:00 Completed [facility] Influenza Virus Vaccine 2018-01-14 00:00:00 Completed [facility] Influenza Virus Vaccine Quad .5 mL IM 6+ MO 2018-01-14 00:00:00 Completed [facility] Influenza Virus Vaccine 2018-01-14 00:00:00 Completed [facility] Influenza Virus Vaccine Quad .5 mL IM 6+ MO 2018-01-14 00:00:00 Completed [facility] Influenza Virus Vaccine 2018-01-14 00:00:00 Completed [facility] Influenza Virus Vaccine Quad .5 mL IM 6+ MO 2018-01-14 00:00:00 Completed [facility] Influenza Virus Vaccine 2018-01-14 00:00:00 Completed [facility] Influenza Virus Vaccine Quad .5 mL IM 6+ MO 2018-01-14 00:00:00 Completed [facility] Influenza Virus Vaccine 2018-01-14 00:00:00 Completed [facility] Influenza Virus Vaccine Quad .5 mL IM 6+ MO 2018-01-14 00:00:00 Completed [facility] Influenza Virus Vaccine 2018-01-14 00:00:00 Completed [facility] Influenza Virus Vaccine Quad .5 mL IM 6+ MO 2018-01-14 00:00:00 Completed [facility] Influenza Virus Vaccine 2018-01-14 00:00:00 Completed [facility] Influenza Virus Vaccine Quad .5 mL IM 6+ MO 2018-01-14 00:00:00 Completed [facility] Influenza Virus Vaccine 2018-01-14 00:00:00 Completed [facility] Influenza Virus Vaccine Quad .5 mL IM 6+ MO 2018-01-14 00:00:00 Completed [facility] Influenza Virus Vaccine 2018-01-14 00:00:00 Completed [facility] Influenza Virus Vaccine Quad .5 mL IM 6+ MO 2018-01-14 00:00:00 Completed [facility] Influenza Virus Vaccine 2018-01-14 00:00:00 Completed [facility] Influenza Virus Vaccine Quad .5 mL IM 6+ MO 2018-01-14 00:00:00 Completed [facility] Influenza Virus Vaccine 2018-01-14 00:00:00 Completed [facility] Influenza Virus Vaccine Quad .5 mL IM 6+ MO 2018-01-14 00:00:00 Completed [facility] Influenza Virus Vaccine 2018-01-14 00:00:00 Completed [facility] Influenza Virus Vaccine Quad .5 mL IM 6+ MO 2018-01-14 00:00:00 Completed [facility] Influenza Virus Vaccine 2018-01-14 00:00:00 Completed [facility] Influenza Virus Vaccine Quad .5 mL IM 6+ MO 2018-01-14 00:00:00 Completed [facility] Influenza Virus Vaccine 2018-01-14 00:00:00 Completed [facility] Influenza Virus Vaccine Quad .5 mL IM 6+ MO 2018-01-14 00:00:00 Completed [facility] Influenza Virus Vaccine 2018-01-14 00:00:00 Completed [facility] Influenza Virus Vaccine Quad .5 mL IM 6+ MO 2018-01-14 00:00:00 Completed [facility] Influenza Virus Vaccine 2018-01-14 00:00:00 Completed [facility] Influenza Virus Vaccine Quad .5 mL IM 6+ MO 2018-01-14 00:00:00 Completed [facility] Influenza Virus Vaccine 2018-01-14 00:00:00 Completed [facility] Influenza Virus Vaccine Quad .5 mL IM 6+ MO (FLUZONE/FLULAVAL/F LUARIX) Unknown Completed [facility] Influenza Virus Vaccine Unknown Completed [facility] SARS-COV-2 COVID-19 PFIZER VACCINE Unknown Completed [facility] SARS-COV-2 COVID-19 PFIZER VACCINE Unknown Completed [facility] Influenza Virus Vaccine Quad IM, Preserv and ABX Free 6 MO-64 YRS (FLUCELVAX) Unknown Completed [facility] Pneumococcal 13 Conjugate, PCV13 (Prevnar 13) Unknown Completed [facility] TDAP Unknown Completed [facility] SARS-COV-2 COVID-19 PFIZER VACCINE Unknown Completed [facility] Influenza Virus Vaccine Quad IM, Preserv and ABX Free 6 MO-64 YRS (FLUCELVAX) Unknown Completed [facility] Influenza Virus Vaccine Quad .5 mL IM 6+ MO (FLUZONE/FLULAVAL/F LUARIX) Unknown Completed [facility] Influenza Virus Vaccine Unknown Completed [facility] SARS-COV-2 COVID-19 PFIZER VACCINE Unknown Completed [facility] SARS-COV-2 COVID-19 PFIZER VACCINE Unknown Completed [facility] Influenza Virus Vaccine Quad IM, Preserv and ABX Free 6 MO-64 YRS (FLUCELVAX) Unknown Completed [facility] Pneumococcal 13 Conjugate, PCV13 (Prevnar 13) Unknown Completed [facility] TDAP Unknown Completed [facility] SARS-COV-2 COVID-19 PFIZER VACCINE Unknown Completed [facility] Influenza Virus Vaccine Quad IM, Preserv and ABX Free 6 MO-64 YRS (FLUCELVAX) Unknown Completed [facility] Influenza Virus Vaccine Quad .5 mL IM 6+ MO (FLUZONE/FLULAVAL/F LUARIX) Unknown Completed [facility] Influenza Virus Vaccine Unknown Completed [facility] SARS-COV-2 COVID-19 PFIZER VACCINE Unknown Completed [facility] SARS-COV-2 COVID-19 PFIZER VACCINE Unknown Completed [facility] Influenza Virus Vaccine Quad IM, Preserv and ABX Free 6 MO-64 YRS (FLUCELVAX) Unknown Completed [facility] Pneumococcal 13 Conjugate, PCV13 (Prevnar 13) Unknown Completed [facility] TDAP Unknown Completed [facility] SARS-COV-2 COVID-19 PFIZER VACCINE Unknown Completed [facility] Influenza Virus Vaccine Quad IM, Preserv and ABX Free 6 MO-64 YRS (FLUCELVAX) Unknown Completed [facility] Influenza Virus Vaccine Quad .5 mL IM 6+ MO (FLUZONE/FLULAVAL/F LUARIX) Unknown Completed [facility] Influenza Virus Vaccine Unknown Completed [facility] SARS-COV-2 COVID-19 PFIZER VACCINE Unknown Completed [facility] SARS-COV-2 COVID-19 PFIZER VACCINE Unknown Completed [facility] Influenza Virus Vaccine Quad IM, Preserv and ABX Free 6 MO-64 YRS (FLUCELVAX) Unknown Completed [facility] Pneumococcal 13 Conjugate, PCV13 (Prevnar 13) Unknown Completed [facility] TDAP Unknown Completed [facility] SARS-COV-2 COVID-19 PFIZER VACCINE Unknown Completed [facility] Influenza Virus Vaccine Quad IM, Preserv and ABX Free 6 MO-64 YRS (FLUCELVAX) Unknown Completed [facility] Influenza Virus Vaccine Quad .5 mL IM 6+ MO (FLUZONE/FLULAVAL/F LUARIX) Unknown Completed [facility] Influenza Virus Vaccine Unknown Completed [facility] SARS-COV-2 COVID-19 PFIZER VACCINE Unknown Completed [facility] SARS-COV-2 COVID-19 PFIZER VACCINE Unknown Completed [facility] Influenza Virus Vaccine Quad IM, Preserv and ABX Free 6 MO-64 YRS (FLUCELVAX) Unknown Completed [facility] Pneumococcal 13 Conjugate, PCV13 (Prevnar 13) Unknown Completed [facility] TDAP Unknown Completed [facility] SARS-COV-2 COVID-19 PFIZER VACCINE Unknown Completed [facility] Influenza Virus Vaccine Quad IM, Preserv and ABX Free 6 MO-64 YRS (FLUCELVAX) Unknown Completed [facility] Influenza Virus Vaccine Quad .5 mL IM 6+ MO (FLUZONE/FLULAVAL/F LUARIX) Unknown Completed [facility] Influenza Virus Vaccine Unknown Completed [facility] SARS-COV-2 COVID-19 PFIZER VACCINE Unknown Completed [facility] SARS-COV-2 COVID-19 PFIZER VACCINE Unknown Completed [facility] Influenza Virus Vaccine Quad IM, Preserv and ABX Free 6 MO-64 YRS (FLUCELVAX) Unknown Completed [facility] Pneumococcal 13 Conjugate, PCV13 (Prevnar 13) Unknown Completed [facility] TDAP Unknown Completed [facility] SARS-COV-2 COVID-19 PFIZER VACCINE Unknown Completed [facility] Influenza Virus Vaccine Quad IM, Preserv and ABX Free 6 MO-64 YRS (FLUCELVAX) Unknown Completed [facility] Influenza Virus Vaccine Quad .5 mL IM 6+ MO (FLUZONE/FLULAVAL/F LUARIX) Unknown Completed [facility] Influenza Virus Vaccine Unknown Completed [facility] SARS-COV-2 COVID-19 PFIZER VACCINE Unknown Completed [facility] SARS-COV-2 COVID-19 PFIZER VACCINE Unknown Completed [facility] Influenza Virus Vaccine Quad IM, Preserv and ABX Free 6 MO-64 YRS (FLUCELVAX) Unknown Completed [facility] Pneumococcal 13 Conjugate, PCV13 (Prevnar 13) Unknown Completed [facility] TDAP Unknown Completed [facility] SARS-COV-2 COVID-19 PFIZER VACCINE Unknown Completed [facility] Influenza Virus Vaccine Quad IM, Preserv and ABX Free 6 MO-64 YRS (FLUCELVAX) Unknown Completed [facility] Influenza Virus Vaccine Quad .5 mL IM 6+ MO (FLUZONE/FLULAVAL/F LUARIX) Unknown Completed [facility] Influenza Virus Vaccine Unknown Completed [facility] SARS-COV-2 COVID-19 PFIZER VACCINE Unknown Completed [facility] SARS-COV-2 COVID-19 PFIZER VACCINE Unknown Completed [facility] Influenza Virus Vaccine Quad IM, Preserv and ABX Free 6 MO-64 YRS (FLUCELVAX) Unknown Completed [facility] Pneumococcal 13 Conjugate, PCV13 (Prevnar 13) Unknown Completed [facility] TDAP Unknown Completed [facility] SARS-COV-2 COVID-19 PFIZER VACCINE Unknown Completed [facility] Influenza Virus Vaccine Quad IM, Preserv and ABX Free 6 MO-64 YRS (FLUCELVAX) Unknown Completed [facility] Influenza Virus Vaccine Quad .5 mL IM 6+ MO (FLUZONE/FLULAVAL/F LUARIX) Unknown Completed [facility] Influenza Virus Vaccine Unknown Completed [facility] SARS-COV-2 COVID-19 PFIZER VACCINE Unknown Completed [facility] SARS-COV-2 COVID-19 PFIZER VACCINE Unknown Completed [facility] Influenza Virus Vaccine Quad IM, Preserv and ABX Free 6 MO-64 YRS (FLUCELVAX) Unknown Completed [facility] Pneumococcal 13 Conjugate, PCV13 (Prevnar 13) Unknown Completed [facility] TDAP Unknown Completed [facility] SARS-COV-2 COVID-19 PFIZER VACCINE Unknown Completed [facility] Influenza Virus Vaccine Quad IM, Preserv and ABX Free 6 MO-64 YRS (FLUCELVAX) Unknown Completed [facility] Influenza Virus Vaccine Quad .5 mL IM 6+ MO (FLUZONE/FLULAVAL/F LUARIX) Unknown Completed [facility] Influenza Virus Vaccine Unknown Completed [facility] SARS-COV-2 COVID-19 PFIZER VACCINE Unknown Completed [facility] SARS-COV-2 COVID-19 PFIZER VACCINE Unknown Completed [facility] Influenza Virus Vaccine Quad IM, Preserv and ABX Free 6 MO-64 YRS (FLUCELVAX) Unknown Completed [facility] Pneumococcal 13 Conjugate, PCV13 (Prevnar 13) Unknown Completed [facility] TDAP Unknown Completed [facility] SARS-COV-2 COVID-19 PFIZER VACCINE Unknown Completed [facility] Influenza Virus Vaccine Quad IM, Preserv and ABX Free 6 MO-64 YRS (FLUCELVAX) Unknown Completed [facility] Influenza Virus Vaccine Quad .5 mL IM 6+ MO (FLUZONE/FLULAVAL/F LUARIX) Unknown Completed [facility] Influenza Virus Vaccine Unknown Completed [facility] SARS-COV-2 COVID-19 PFIZER VACCINE Unknown Completed [facility] SARS-COV-2 COVID-19 PFIZER VACCINE Unknown Completed [facility] Influenza Virus Vaccine Quad IM, Preserv and ABX Free 6 MO-64 YRS (FLUCELVAX) Unknown Completed [facility] Pneumococcal 13 Conjugate, PCV13 (Prevnar 13) Unknown Completed [facility] TDAP Unknown Completed [facility] SARS-COV-2 COVID-19 PFIZER VACCINE Unknown Completed [facility] Influenza Virus Vaccine Quad IM, Preserv and ABX Free 6 MO-64 YRS (FLUCELVAX) Unknown Completed [facility] Influenza Virus Vaccine Quad .5 mL IM 6+ MO (FLUZONE/FLULAVAL/F LUARIX) Unknown Completed [facility] Influenza Virus Vaccine Unknown Completed [facility] SARS-COV-2 COVID-19 PFIZER VACCINE Unknown Completed [facility] SARS-COV-2 COVID-19 PFIZER VACCINE Unknown Completed [facility] Influenza Virus Vaccine Quad IM, Preserv and ABX Free 6 MO-64 YRS (FLUCELVAX) Unknown Completed [facility] Pneumococcal 13 Conjugate, PCV13 (Prevnar 13) Unknown Completed [facility] TDAP Unknown Completed [facility] SARS-COV-2 COVID-19 PFIZER VACCINE Unknown Completed [facility] Influenza Virus Vaccine Quad IM, Preserv and ABX Free 6 MO-64 YRS (FLUCELVAX) Unknown Completed [facility] Influenza Virus Vaccine Quad .5 mL IM 6+ MO (FLUZONE/FLULAVAL/F LUARIX) Unknown Completed [facility] Influenza Virus Vaccine Unknown Completed [facility] SARS-COV-2 COVID-19 PFIZER VACCINE Unknown Completed [facility] SARS-COV-2 COVID-19 PFIZER VACCINE Unknown Completed [facility] Influenza Virus Vaccine Quad IM, Preserv and ABX Free 6 MO-64 YRS (FLUCELVAX) Unknown Completed [facility] Pneumococcal 13 Conjugate, PCV13 (Prevnar 13) Unknown Completed [facility] TDAP Unknown Completed [facility] SARS-COV-2 COVID-19 PFIZER VACCINE Unknown Completed [facility] Influenza Virus Vaccine Quad IM, Preserv and ABX Free 6 MO-64 YRS (FLUCELVAX) Unknown Completed [facility] Influenza Virus Vaccine Quad .5 mL IM 6+ MO (FLUZONE/FLULAVAL/F LUARIX) Unknown Completed [facility] Influenza Virus Vaccine Unknown Completed [facility] SARS-COV-2 COVID-19 PFIZER VACCINE Unknown Completed [facility] SARS-COV-2 COVID-19 PFIZER VACCINE Unknown Completed [facility] Influenza Virus Vaccine Quad IM, Preserv and ABX Free 6 MO-64 YRS (FLUCELVAX) Unknown Completed [facility] Pneumococcal 13 Conjugate, PCV13 (Prevnar 13) Unknown Completed [facility] TDAP Unknown Completed [facility] SARS-COV-2 COVID-19 PFIZER VACCINE Unknown Completed [facility] Influenza Virus Vaccine Quad IM, Preserv and ABX Free 6 MO-64 YRS (FLUCELVAX) Unknown Completed [facility] Influenza Virus Vaccine Quad .5 mL IM 6+ MO (FLUZONE/FLULAVAL/F LUARIX) Unknown Completed [facility] Influenza Virus Vaccine Unknown Completed [facility] SARS-COV-2 COVID-19 PFIZER VACCINE Unknown Completed [facility] SARS-COV-2 COVID-19 PFIZER VACCINE Unknown Completed [facility] Influenza Virus Vaccine Quad IM, Preserv and ABX Free 6 MO-64 YRS (FLUCELVAX) Unknown Completed [facility] Pneumococcal 13 Conjugate, PCV13 (Prevnar 13) Unknown Completed [facility] TDAP Unknown Completed [facility] SARS-COV-2 COVID-19 PFIZER VACCINE Unknown Completed [facility] Influenza Virus Vaccine Quad IM, Preserv and ABX Free 6 MO-64 YRS (FLUCELVAX) Unknown Completed [facility] Influenza Virus Vaccine Quad .5 mL IM 6+ MO (FLUZONE/FLULAVAL/F LUARIX) Unknown Completed [facility] Influenza Virus Vaccine Unknown Completed [facility] SARS-COV-2 COVID-19 PFIZER VACCINE Unknown Completed [facility] SARS-COV-2 COVID-19 PFIZER VACCINE Unknown Completed [facility] Influenza Virus Vaccine Quad IM, Preserv and ABX Free 6 MO-64 YRS (FLUCELVAX) Unknown Completed [facility] Pneumococcal 13 Conjugate, PCV13 (Prevnar 13) Unknown Completed [facility] TDAP Unknown Completed [facility] SARS-COV-2 COVID-19 PFIZER VACCINE Unknown Completed [facility] Influenza Virus Vaccine Quad IM, Preserv and ABX Free 6 MO-64 YRS (FLUCELVAX) Unknown Completed [facility] Influenza Virus Vaccine Quad .5 mL IM 6+ MO (FLUZONE/FLULAVAL/F LUARIX) Unknown Completed [facility] Influenza Virus Vaccine Unknown Completed [facility] SARS-COV-2 COVID-19 PFIZER VACCINE Unknown Completed [facility] SARS-COV-2 COVID-19 PFIZER VACCINE Unknown Completed [facility] Influenza Virus Vaccine Quad IM, Preserv and ABX Free 6 MO-64 YRS (FLUCELVAX) Unknown Completed [facility] Pneumococcal 13 Conjugate, PCV13 (Prevnar 13) Unknown Completed [facility] TDAP Unknown Completed [facility] SARS-COV-2 COVID-19 PFIZER VACCINE Unknown Completed [facility] Influenza Virus Vaccine Quad IM, Preserv and ABX Free 6 MO-64 YRS (FLUCELVAX) Unknown Completed [facility] Influenza Virus Vaccine Quad IM, Preserv and ABX Free 6 MO-64 YRS (FLUCELVAX) Unknown Completed [facility] Influenza Virus Vaccine Quad .5 mL IM 6+ MO (FLUZONE/FLULAVAL/F LUARIX) Unknown Completed [facility] Influenza Virus Vaccine Unknown Completed [facility] SARS-COV-2 COVID-19 PFIZER VACCINE Unknown Completed [facility] SARS-COV-2 COVID-19 PFIZER VACCINE Unknown Completed [facility] Influenza Virus Vaccine Quad IM, Preserv and ABX Free 6 MO-64 YRS (FLUCELVAX) Unknown Completed [facility] Pneumococcal 13 Conjugate, PCV13 (Prevnar 13) Unknown Completed [facility] TDAP Unknown Completed [facility] SARS-COV-2 COVID-19 PFIZER VACCINE Unknown Completed [facility] Influenza Virus Vaccine Quad IM, Preserv and ABX Free 6 MO-64 YRS (FLUCELVAX) Unknown Completed [facility] Influenza Virus Vaccine Quad IM, Preserv and ABX Free 6 MO-64 YRS (FLUCELVAX) Unknown Completed [facility] Vital Signs Vital Name Observation Time Observation Value Comments S ource Systolic blood pressure 2023-03-04 16:35:00 107 mm[Hg] [facility] Diastolic blood pressure 2023-03-04 16:35:00 72 mm[Hg] [facility] Heart rate 2023-03-04 16:35:00 69 /min [facility] Body height 2023-03-04 16:35:00 165.1 cm [facility] Body weight 2023-03-04 16:35:00 112.175 kg [facility] BMI 2023-03-04 16:35:00 41.15 kg/m2 [facility] Oxygen saturation in Arterial blood by Pulse oximetry 2023-03-04 16:35:00 94 /min [facility] Systolic blood pressure 2022-12-13 14:45:00 128 mm[Hg] [facility] Diastolic blood pressure 2022-12-13 14:45:00 80 mm[Hg] [facility] Heart rate 2022-12-13 14:37:00 84 /min [facility] Body height 2022-12-13 14:37:00 165.1 cm [facility] Body weight 2022-12-13 14:37:00 111.948 kg [facility] BMI 2022-12-13 14:37:00 41.07 kg[facility]2 [facility] in Arterial blood by Pulse oximetry 2022-12-13 14:37:00 99 /min [facility] Systolic blood pressure 2022-11-29 21:23:00 127 mm[Hg] [facility] Diastolic blood pressure 2022-11-29 21:23:00 84 mm[Hg] [facility] Heart rate 2022-11-29 21:23:00 69 /min [facility] Body temperature 2022-11-29 21:23:00 36.72 Lynsey [facility] Respiratory rate 2022-11-29 21:23:00 16 /min [facility] Body height 2022-11-29 21:23:00 165.1 [facility] 2022-11-29 21:23:00 112.038 kg [facility] BMI 2022-11-29 21:23:00 41.10 kg/m2 [facility] Oxygen saturation in Arterial blood by Pulse oximetry 2022-11-29 21:23:00 100 /min [facility] Systolic blood pressure 2022-09-17 08:00:00 125 mm[Hg] [facility] Diastolic blood pressure 2022-09-17 08:00:00 78 mm[Hg] [facility] Heart rate 2022-09-17 08:00:00 53 /min [facility] Respiratory rate 2022-09-17 08:00:00 20 /min [facility] Oxygen saturation in Arterial blood by Pulse oximetry 2022-09-17 08:00:00 98 /min [facility] Body temperature 2022-09-17 03:24:00 36.72 Lynsey [facility] Body height 2022-09-17 03:24:00 165.1 cm [facility] weight 2022-09-17 03:24:00 114.76 kg [facility] BMI 2022-09-17 03:24:00 42.10 kg/m2 [facility] Systolic blood pressure 2022-09-14 14:30:00 126 mm[Hg] [facility] Diastolic blood pressure 2022-09-14 14:30:00 71 mm[Hg] [facility] Heart rate 2022-09-14 14:30:00 68 /min [facility] Body temperature 2022-09-14 14:30:00 36.89 Lynsey [facility] Respiratory rate 2022-09-14 14:30:00 16 /min [facility] Body height 2022-09-14 14:30:00 165.1 cm [facility] Body weight 2022-09-14 14:30:00 114.896 kg [facility] BMI 2022-09-14 14:30:00 42.15 kg/m2 [facility] Oxygen saturation in Arterial blood by Pulse oximetry 2022-09-14 14:30:00 99 /min [facility] Systolic blood pressure 2022-09-04 20:33:00 119 mm[Hg] [facility] Diastolic blood pressure 2022-09-04 20:33:00 79 mm[Hg] [facility] Heart rate 2022-09-04 20:33:00 78 /min [facility] Respiratory rate 2022-09-04 20:33:00 18 /min [facility] Body height 2022-09-04 20:33:00 165.1 cm [facility] Body weight 2022-09-04 20:33:00 113.49 kg [facility] BMI 2022-09-04 20:33:00 41.64 kg/m2 [facility] Oxygen saturation in Arterial blood by Pulse oximetry 2022-09-04 20:33:00 97 /min [facility] Systolic blood pressure 2022-08-30 21:22:00 118 mm[Hg] [facility] Diastolic blood pressure 2022-08-30 21:22:00 78 mm[Hg] [facility] Heart rate 2022-08-30 21:22:00 84 /min [facility] Respiratory rate 2022-08-30 21:22:00 18 /min [facility] Body height 2022-08-30 21:22:00 165.1 cm [facility] Body weight 2022-08-30 21:22:00 113.399 kg [facility] BMI 2022-08-30 21:22:00 41.60 kg/m2 [facility] Systolic blood pressure 2022-08-20 16:05:00 116 mm[Hg] [facility] Diastolic blood pressure 2022-08-20 16:05:00 65 mm[Hg] [facility] Respiratory rate 2022-08-20 16:05:00 16 /min [facility] Oxygen saturation in Arterial blood by Pulse oximetry 2022-08-20 16:05:00 98 /min [facility] Heart rate 2022-08-20 15:25:00 63 /min [facility] Body temperature 2022-08-20 14:43:00 35.94 Lynsey [facility] Body height 2022-08-09 15:00:00 165.1 cm [facility] Body weight 2022-08-09 15:00:00 108.863 kg [facility] BMI 2022-08-09 15:00:00 39.94 kg/m2 [facility] Systolic blood pressure 2022-08-20 15:00:00 114 mm[Hg] [facility] Diastolic blood pressure 2022-08-20 15:00:00 55 mm[Hg] [facility] Respiratory rate 2022-08-20 15:00:00 17 /min [facility] Oxygen saturation in Arterial blood by Pulse oximetry 2022-08-20 15:00:00 100 /min [facility] Heart rate 2022-08-20 14:43:00 70 /min [facility] Body temperature 2022-08-20 14:43:00 35.94 Lynsey [facility] Body height 2022-08-09 15:00:00 165.1 cm [facility] Body weight 2022-08-09 15:00:00 108.863 kg [facility] BMI 2022-08-09 15:00:00 39.94 kg/m2 [facility] Systolic blood pressure 2022-08-17 19:18:00 136 mm[Hg] [facility] Diastolic blood pressure 2022-08-17 19:18:00 78 mm[Hg] [facility] Heart rate 2022-08-17 19:18:00 86 /min [facility] Body height 2022-08-17 19:18:00 165.1 cm [facility] Body weight 2022-08-17 19:18:00 115.304 kg [facility] BMI 2022-08-17 19:18:00 42.30 kg/m2 [facility] Oxygen saturation in Arterial blood by Pulse oximetry 2022-08-17 19:18:00 98 /min [facility] Systolic blood pressure 2022-08-02 13:43:00 135 mm[Hg] [facility] Diastolic blood pressure 2022-08-02 13:43:00 85 mm[Hg] [facility] Heart rate 2022-08-02 13:43:00 72 /min [facility] Respiratory rate 2022-08-02 13:43:00 18 /min [facility] Body height 2022-08-02 13:43:00 152.4 cm [facility] Body weight 2022-08-02 13:43:00 111.585 kg [facility] BMI 2022-08-02 13:43:00 48.04 kg/m2 [facility] Systolic blood pressure 2022-07-29 03:00:00 129 mm[Hg] [facility] Diastolic blood pressure 2022-07-29 03:00:00 83 mm[Hg] [facility] Heart rate 2022-07-29 03:00:00 70 /min [facility] Respiratory rate 2022-07-29 03:00:00 16 /min [facility] Oxygen saturation in Arterial blood by Pulse oximetry 2022-07-29 03:00:00 98 /min [facility] Body temperature 2022-07-28 21:22:00 36.72 Lynsey [facility] Body height 2022-07-28 21:22:00 165.1 cm [facility] Body weight 2022-07-28 21:22:00 109.77 kg [facility] BMI 2022-07-28 21:22:00 40.27 kg/m2 [facility] Systolic blood pressure 2022-02-28 17:46:00 128 mm[Hg] [facility] Diastolic blood pressure 2022-02-28 17:46:00 28 mm[Hg] [facility] Heart rate 2022-02-28 17:46:00 93 /min [facility] Body height 2022-02-28 17:46:00 165.1 cm [facility] Body weight 2022-02-28 17:46:00 115.214 kg [facility] BMI 2022-02-28 17:46:00 42.27 kg/m2 [facility] Systolic blood pressure 2021-11-27 15:19:00 139 mm[Hg] [facility] Diastolic blood pressure 2021-11-27 15:19:00 76 mm[Hg] [facility] Heart rate 2021-11-27 15:19:00 83 /min [facility] Body height 2021-11-27 15:19:00 165.1 cm [facility] Body weight 2021-11-27 15:19:00 120.385 kg [facility] BMI 2021-11-27 15:19:00 44.16 kg/m2 [facility] Oxygen saturation in Arterial blood by Pulse oximetry 2021-11-27 15:19:00 99 /min [facility] Systolic blood pressure 2021-08-25 21:45:00 124 mm[Hg] [facility] Diastolic blood pressure 2021-08-25 21:45:00 79 mm[Hg] [facility] Heart rate 2021-08-25 21:45:00 75 /min [facility] Body temperature 2021-08-25 21:45:00 36.44 Lynsey [facility] Respiratory rate 2021-08-25 21:45:00 18 /min [facility] Body height 2021-08-25 21:45:00 165.1 cm [facility] Body weight 2021-08-25 21:45:00 123.378 kg [facility] BMI 2021-08-25 21:45:00 45.26 kg/m2 [facility] Procedures Procedure Date / Time Performed Performing Clinician Source AUTHORIZ[facility] 2023-03-04 06:01:00 Doctor Unassigned, [place] [facility] POCT URINALYSIS W/O SPECIFIC GRAVITY 2022-11-29 00:00:00 Brooklyn Hartman [facility] CT PELVIS WO CONTRAST 2022-09-17 07:57:00 Jing Sullivan [facility] CT ABDOMEN PELVIS W CONTRAST 2022-09-17 05:10:00 Tejal Sullivan [facility] CT CHEST PULMONARY ANGIOGRAM 2022-09-17 05:10:00 Tejal Sullivan [facility] POCT TEST 2022-09-17 04:46:00 Tejal Sullivan [facility] MAGNESIUM 2022-09-17 04:20:00 Tejal Sullivan [facility] COMP. METABOLIC PANEL (61168) 2022-09-17 04:20:00 Tejal Sullivan [facility] CBC WITH DIFF 2022-09-17 04:20:00 Tejal Sullivan [facility] URINALYSIS 2022-09-17 04:20:00 Tejal Sullivan [facility] NOTICE OF PRIVACY PRACTICES 2022-09-17 03:07:57 Doctor Unassigned, [place] [facility] CONSENT/REFUSAL FOR DIAGNOSIS AND TREATMENT 2022-09-17 03:05:33 Doctor Unassigned, [place] [facility] COMP. METABOLIC PANEL ([id number]) 2022-09-04 21:30:00 Faye Napoles [facility] CBC WITH DIFF 2022-09-04 21:30:00 Faye Napoles [facility] POCT TEST 2022-08-20 12:22:00 Mckay Fu [facility] POCT TEST 2022-08-20 12:22:00 Tank gume [facility] LAPAROSCOPIC OOPHORECTOMY 2022-08-20 12:15:00 Devan [place] [facility] LAPAROSCOPIC SALPINGECTOMY 2022-08-20 12:15:00 Devan [facility] DAY SURGERY - ADC 2022-08-20 05:01:00 Doctor Beatriz ssigned, [place] [facility] EXTERNAL PROVIDER RECORDS 2022-08-03 05:01:00 Doctor Unassigned, [place] [facility] DSU PRE-OP 2022-08-02 05:01:00 Doctor Unass igned, [place] [facility] DSU PRE-OP 2022-08-02 05:01:00 Doctor Unass igned, [place] [facility] US OVARY TORSION 2022-07-29 01:30:00 [place] [facility]EL[facility] W CONTRAST 2022-07-28 23:04:58 [place] [facility] COMP. METABOLIC PANEL ([id number]) 2022-07-28 22:20:00 [place] [facility] CBC WITH DIFF 2022-07-28 22:20:00 [place] [facility] URINALYSIS 2022-07-28 22:20:00 [place] [facility] CONSENT/REFUSAL FOR DIAGNOSIS AND TREATMENT 2022-07-28 21:14:36 Doctor Unassigned, [place] [facility] POCT HEMOGLOBIN A1C TEST 2022-02-28 17:58:00 Lanie Lopez [facility] Encounters Start Date/Time End Date/Time Encounter Type Admission Type Attending [facility] Care Facility Care Department Encounter ID Source 2021-03-22 12:08:59 [facility] [id number] [facility] 2021-03-22 12:08:27 [facility] [id number] [facility] 2021-03-22 11:07:35 Outpatient Cinda Briceno [facility] [id number] [facility] 2023-12-05 15:30:00 2023-12-05 15:30:00 Outpatient R [facility], [place] [facility] [place] [facility] [id number] [facility] 2023-06-11 09:20:00 2023-06-11 09:20:00 Outpatient R JAGUAR, KEITH [facility] [id number] [facility] 2023-06-10 14:06:34 2023-06-10 14:06:34 Outpatient SFA AMIRAH [id number] Roscoe F Stef 2023-06-07 10:30:00 2023-06-07 10:30:00 Outpatient R FAYE NAPOLES [facility] [id number] [facility] 2023-05-26 00:00:00 2023-05-26 00:00:00 Refill Yesika [facility] [id number] 350.1.13.10 4.2.7.2.686 [id number] [facility] 2023-03-07 13:30:00 2023-03-07 13:30:00 Outpatient R FAYE NAPOLES [facility] [id number] [facility] 2023-03-04 10:30:00 2023-03-04 11:00:00 Office Visit Percy Andrade [facility] [id number] 350.1.13.10 4.2.7.2.686 [id number] [facility] 2023-03-04 10:30:00 2023-03-04 10:30:00 Outpatient R PERCY ANDRADE [facility] [id number] [facility] 2023-03-04 00:00:00 2023-03-04 00:00:00 Orders Only Doctor Unassigned, [place] [facility] 1..114 350.1.13.10 4.2.7.2.686 [id number] [facility] 2023-03-02 00:00:00 2023-03-02 00:00:00 [facility] 1.84.114 350.1.13.10 4.2.7.2.686 [id number] [facility] 2023-02-04 14:00:00 2023-02-04 14:00:00 Outpatient R LANIE LOPEZ YU [facility] [id number] [facility] 2023-01-26 00:00:00 2023-01-26 00:00:00 [facility] 1.840.114 350.1.13.10 4.2.7.2.686 [id number] [facility] 2023-01-07 10:40:00 2023-01-07 10:40:00 Outpatient KIZZY DAWN HOWARD [facility] [id number] [facility] 2022-12-13 09:30:00 2022-12-13 10:16:50 Outpatient R FAYE NAPOLES [facility] [id number] [facility] 2022-12-13 09:30:00 2022-12-13 10:16:50 [facility] 1.840.114 350.1.13.10 4.2.7.2.686 [id number] [facility] 2022-12-10 16:30:00 2022-12-10 16:30:00 Outpatient R LANIE LOPEZ [facility] [id number] [facility] 2022-11-30 13:00:00 2022-11-30 13:17:44 Outpatient R [place] [facility], [place] [facility], [place] [facility] [id number] [facility] 2022-11-30 13:00:00 2022-11-30 13:17:44 Supervisor Rose Grading Visit Lab, [place] [facility], [facility] 1.2.840.114 350.1.13.10 4.2.7.2.686 [id number] [facility] 2022-11-30 00:00:00 2022-11-30 00:00:00 Faye Liu [facility] 1..840.114 350.1.13.10 4.2.7.2.686 [id number] [facility] 2022-11-29 16:30:00 2022-11-29 16:41:13 Outpatient R [place] [facility], [place] [facility], [place] [facility] [id number] [facility] 2022-11-29 16:30:00 2022-11-29 16:41:13 Office Visit Fredrick-C[place]le s [place] [facility] 1..840.114 350.1.13.10 4.2.7.2.686 [id number] [facility] 2022-11-09 16:30:00 2022-11-09 16:30:00 Outpatient R [place] [facility], [place] [facility], [place] [facility] [id number] [facility] 2022-10-22 00:00:00 2022-10-22 00:00:00 [facility] 1.2.840.114 350.1.13.10 4.2.7.2.686 [id number] [facility] 2022-10-18 00:00:00 2022-10-18 00:00:00 Refill Lanie Lopez [facility] 1..840.114 350.1.13.10 4.2.7.2.686 [id number] [facility] 2022-10-15 00:00:00 2022-10-15 00:00:00 [facility] 1..840.114 350.1.13.10 4.2.7.2.686 [id number] [facility] 2022-10-12 15:30:00 2022-10-12 15:30:00 Outpatient R FREDRICK-CARLYLE S, [place] [facility], [place] [facility] [id number] [facility] 2022-10-11 14:22:33 2022-10-11 23:59:00 Outpatient R FAYE NAPOLES [facility] [id number] [facility] 2022-10-11 14:22:33 2022-10-11 23:59:00 Hospital Encounter Faye Napoles [facility] 1..840.114 350.1.13.10 4.2.7.2.686 [id number] [facility] 2022-09-24 13:00:00 2022-09-24 13:00:00 Outpatient R [facility], [place] [facility] [id number] [facility] 2022-09-20 00:00:00 2022-09-20 00:00:00 Telephone Ross alfaro [facility] 1..840.114 350.1.13.10 4.2.7.2.686 [id number] [facility] 2022-09-19 00:00:00 2022-09-19 00:00:00 Telephone Lanie Lopez [facility] 1..840.114 350.1.13.10 4.2.7.2.686 [id number] [facility] 2022-09-19 00:00:00 2022-09-19 00:00:00 Patient Secure Msg Ross alfaro [facility] 1..840.114 350.1.13.10 4.2.7.2.686 [id number] 134 [id number] [facility] 2022-09-18 11:40:00 2022-09-18 11:40:00 Outpatient R ROSS Alfaro, [place] Alfaro [facility] [id number] [facility] 2022-09-18 00:00:00 2022-09-18 00:00:00 Telephone Angela Tracysol [facility] 1..840.114 350.1.13.10 4.2.7.2.686 [id number] 134 [id number] [facility] 2022-09-16 22:33:00 2022-09-17 03:30:00 Emergency X TEJAL [facility]ULL[facility] [id number] [facility] 2022-09-16 22:33:00 2022-09-17 03:30:00 Emergency Tejal Sullivan [facility] 1.2.840.114 350.1.13.10 4.2.7.2.686 [id number] [facility] 2022-09-14 09:00:00 2022-09-14 09:53:56 Outpatient R ALCALA-CARLYLE S, [place] ALCALA-CARLYLE S, [place] [facility] [id number] [facility] 2022-09-14 09:00:00 2022-09-14 09:53:56 Office Visit Alcala-Carlyle s, [place] [facility] 1.0.114 350.1.13.10 4.2.7.2.686 [id number] [facility] 2022-09-14 08:00:00 2022-09-14 08:00:00 Outpatient R ALCALA-CARLYLE S, [place] ALCALA-CARLYLE S, [place] [facility] [id number] [facility] 2022-09-07 00:00:00 2022-09-07 00:00:00 Refill F[facility] 1.840.114 350.1.13.10 4.2.7.2.686 [id number] [facility] 2022-09-06 00:00:00 2022-09-06 00:00:00 Refill Jose Bowen [facility] PROFESSIO NAL BUILDING 1.0.114 350.1.13.10 4.2.7.2.686 [id number] [facility] 2022-09-06 00:00:00 2022-09-06 00:00:00 Patient Secure Msg Doctor Unassigned, [place] [facility] 1.2840.114 350.1.13.10 4.2.7.2.686 [id number] [facility] 2022-09-04 16:15:00 2022-09-04 16:33:18 Supervisor Rose Grading Visit Lab, Avila - Nadeem Yesika [facility]?MAMI LYONS MED[facility] OFF[facility] BUILD[facility] 1.284.114 350.1.13.10 4.2.7.2.686 [id number] [facility] 2022-09-04 15:00:00 2022-09-04 16:21:35 [facility] [id number] [facility] 2022-09-04 15:00:00 2022-09-04 16:21:35 [facility]I [facility] MED[facility] OFFICE BUILD[facility] 1.284.114 350.1.13.10 4.2.7.2.686 [id number] [facility] 2022-09-04 00:00:00 2022-09-04 00:00:00 Refill [facility]MAMI [facility] MEDICAL OFFICE BUILD[facility] 1.84.114 350.1.13.10 4.2.7.2.686 [id number] [facility] 2022-08-30 16:30:00 2022-08-30 16:49:20 Outpatient R [place] TRACY MARISOL [facility] [id number] [facility] 2022-08-30 16:30:00 2022-08-30 16:49:20 Office Visit [place] Tracy [facility] 1.84.114 350.1.13.10 4.2.7.2.686 [id number] [facility] 2022-08-25 00:00:00 2022-08-25 00:00:00 Refill Lanie Lopez [facility] MEDICAL OFFICE BUILDING 1.840.114 350.1.13.10 4.2.7.2.686 [id number] 220 [id number] [facility] 2022-08-22 00:00:00 2022-08-22 00:00:00 Telephone Alcala-Carlyle alfaro [place] [facility] 1.2840.114 350.1.13.10 4.2.7.2.686 [id number] [facility] 2022-08-20 06:45:00 2022-08-20 11:22:00 Outpatient R ALCALA-CARLYLE S, [place] ALCALA-CARLYLE S, [place] [facility] JUDGE [id number] [facility] 2022-08-20 06:45:00 2022-08-20 11:22:00 Hospital [facility] 1.0.114 350.1.13.10 4.2.7.2.686 [id number] [facility] 2022-08-20 07:15:00 2022-08-20 10:03:00 Surgery Alcala-Carlyle s [facility] 1.2840.114 350.1.13.10 4.2.7.2.686 [id number] [facility] 2022-08-20 00:00:00 2022-08-20 00:00:00 Orders Only Doctor Unassigned, [place] [facility] 1.2840.114 350.1.13.10 4.2.7.2.686 [id number] [facility] 2022-08-20 00:00:00 2022-08-20 00:00:00 Telephone Alcala-Carlyle s [facility] 1.2840.114 350.1.13.10 4.2.7.2.686 [id number] [facility] 2022-08-17 14:00:00 2022-08-17 14:52:48 Outpatient R EMILY GIL [facility] [id number] [facility] 2022-08-17 14:00:00 2022-08-17 14:52:48 [facility]I LY[facility] 1.84114 350.1.13.10 4.2.7.2.686 [id number] [facility] 2022-08-17 00:00:00 2022-08-17 00:00:00 Telephone [place] Tracy [facility] 1.114 350.1.13.10 4.2.7.2.686 [id number] 134 [id number] [facility] 2022-08-15 15:00:00 2022-08-15 16:00:22 Supervisor Rose Grading Visit Lab, Avila Gayle [facility]?MAMI LYONS MED[facility] OFF[facility] BUILD[facility] 1.114 350.1.13.10 4.2.7.2.686 [id number] [facility] 2022-08-15 15:00:00 2022-08-15 15:00:00 Outpatient R MARCO GAYLE [facility] [id number] [facility] 2022-08-15 00:00:00 2022-08-15 00:00:00 Telephone Jessica [facility] HESHAM?MAMI ASENCIO MEDICAL OFFICE BUILDING 1.114 350.1.13.10 4.2.7.2.686 [id number] 220 [id number] [facility] 2022-08-07 00:00:00 2022-08-07 00:00:00 Telephone Jessica Lanie [facility] H[facility]AM?MAMI ASENCIO [facility] OFF[facility] BUILDING 1.114 350.1.13.10 4.2.7.2.686 [id number] 220 [id number] [facility] 2022-08-03 00:00:00 2022-08-03 00:00:00 Orders Only Doctor Unassigned, [place] [facility] 1.2840.114 350.1.13.10 4.2.7.2.686 [id number] [facility] 2022-08-02 08:30:00 2022-08-02 09:17:20 Outpatient R ROSS Alfaro [place] Alfaro [facility] [id number] [facility] 2022-08-02 08:30:00 2022-08-02 09:17:20 Office Visit Ross alfaro [place] [facility] 1.0.114 350.1.13.10 4.2.7.2.686 [id number] 134 [id number] [facility] 2022-08-02 00:00:00 2022-08-02 00:00:00 Prep For Surgery Ross alfaro [facility] 1..114 350.1.13.10 4.2.7.2.686 [id number] 134 [id number] [facility] 2022-07-30 00:00:00 2022-07-30 00:00:00 Patient Secure Msg Doctor Unassigned, [place] [facility] 1.2.114 350.1.13.10 4.2.7.2.686 [id number] 220 [id number] [facility] 2022-07-28 16:25:00 2022-07-28 22:46:00 Emergency X MOO PARK [facility] [id number] [facility] 2022-07-28 16:25:00 2022-07-28 22:46:00 Emergency Moo Park [facility] 1.2.840.114 350.1.13.10 4.2.7.2.686 [id number] [facility] 2022-07-27 14:30:00 2022-07-27 14:30:00 Outpatient R EMILY GIL [facility] [id number] [facility] 2022-07-25 00:00:00 2022-07-25 00:00:00 Refill [facility] MEDICAL OFFICE BUILDING 1.2840.114 350.1.13.10 4.2.7.2.686 [id number] 220 [id number] [facility] 2022-07-25 00:00:00 2022-07-25 00:00:00 Refill Jessica, [facility] MEDICAL OFF[facility] BUILDING 1.2840.114 350.1.13.10 4.2.7.2.686 [id number] [facility] 2022-07-20 00:00:00 2022-07-20 00:00:00 Refill Jessica, [facility] MEDICAL OFFICE BUILDING 1.2840.114 350.1.13.10 4.2.7.2.686 [id number] 220 [id number] [facility] 2022-07-02 13:30:00 2022-07-02 13:30:00 Outpatient R LANIE LOPEZ JESSICA [facility] [id number] [facility] 2022-05-21 00:00:00 2022-05-21 00:00:00 Case Management Pearl Echeverria 1.2840.114 350.1.13.10 4.2.7.2.686 [id number] [facility] 2022-05-21 00:00:00 2022-05-21 00:00:00 Telephone Pearl Echeverria 1.2840.114 350.1.13.10 4.2.7.2.686 [id number] [facility] 2022-05-04 00:00:00 2022-05-04 00:00:00 Refill Jessica [facility] HESHAM?MAMI [facility] MEDICAL OFFICE BUILD[facility] 1.2840.114 350.1.13.10 4.2.7.2.686 [id number] 220 [id number] [facility] 2022-03-06 00:00:00 2022-03-06 00:00:00 Patient Secure Msnorma Lopez [facility] MEDICAL OFFICE BUILDING 1.2840.114 350.1.13.10 4.2.7.2.686 [id number] 220 [id number] [facility] 2022-03-02 00:00:00 2022-03-02 00:00:00 Refill Jessica [facility]AV[facility] 1.2840.114 350.1.13.10 4.2.7.2.686 [id number] 220 [id number] [facility] 2022-02-28 12:00:00 2022-02-28 13:14:28 Outpatient R LANIE LOPEZ [facility] [id number] [facility] 2022-02-28 12:00:00 2022-02-28 13:14:28 Office Visit [facility] MEDICAL OFFICE BUILDING 1.2840.114 350.1.13.10 4.2.7.2.686 [id number] 220 [id number] [facility] 2022-02-28 12:30:00 2022-02-28 12:45:00 Supervisor Rose Grading Visit Lab, Avila Silver Jessica [facility] MEDICAL OFFICE BUILDING 1.2840.114 350.1.13.10 4.2.7.2.686 [id number] [facility] 2022-01-02 15:30:00 2022-01-02 15:30:00 Outpatient R LU ARIES [facility] [id number] [facility] 2021-12-19 00:00:00 2021-12-19 00:00:00 Patient Secure Msg Lopez L[facility] 1.2.840.114 350.1.13.10 4.2.7.2.686 [id number] [facility] 2021-12-15 16:30:00 2021-12-15 16:30:00 Outpatient R FAYE NAPOLES [facility] [id number] [facility] 2021-12-15 00:00:00 2021-12-15 00:00:00 Telephone [facility] MEDICAL OFFICE BUILDING 1.2.840.114 350.1.13.10 4.2.7.2.686 [id number] [facility] 2021-11-29 00:00:00 2021-11-29 00:00:00 Refill Jessica, Manjarrez [facility] HESHAM?[facility] MEDICAL OFFICE BUILDING 1.2.840.114 350.1.13.10 4.2.7.2.686 [id number] 220 [id number] [facility] 2021-11-29 00:00:00 2021-11-29 00:00:00 Refill Jessica Lanie [facility] HESHAM?[facility] MEDICAL OFFICE BUILDING 1.2.840.114 350.1.13.10 4.2.7.2.686 [id number] 220 [id number] [facility] 2021-11-27 10:30:00 2021-11-27 11:02:19 Outpatient R LANIE LOPEZ YU [facility] [id number] [facility] 2021-11-27 10:30:00 2021-11-27 11:02:19 Office Visit [facility] MED[facility] OFF[facility] BUILD[facility] 1..840.114 350.1.13.10 4.2.7.2.686 [id number] 220 [id number] [facility] 2021-11-24 00:00:00 2021-11-24 00:00:00 JacintaChema Ryan [facility] MEDICAL OFFICE BUILDING 1..840.114 350.1.13.10 4.2.7.2.686 [id number] 220 [id number] [facility] 2021-10-21 00:00:00 2021-10-21 00:00:00 RefLanie Pride [facility] MEDICAL OFFICE BUILD[facility] 1..840.114 350.1.13.10 4.2.7.2.686 [id number] 220 [id number] [facility] 2021-10-20 10:00:00 2021-10-20 10:00:00 Outpatient DEBRA GARCÍA [facility] [id number] [facility] 2021-10-05 15:00:00 2021-10-05 15:00:00 Outpatient DEBRA GARCÍA [facility] [id number] [facility] 2021-09-29 15:00:00 2021-09-29 15:00:00 Outpatient KIZZY DAWN HOWARD [facility] [id number] [facility] 2021-09-23 00:00:00 2021-09-23 00:00:00 Nancy Gurrola [facility] 1..840.114 350.1.13.10 4.2.7.2.686 [id number] 220 [id number] [facility] 2021-09-12 13:00:00 2021-09-12 13:00:00 Outpatient KIZZY DAWN HOWARD [facility] [id number] [facility] 2021-08-29 09:00:00 2021-08-29 09:00:00 Outpatient R ARIES LEIGH [facility] [id number] [facility] 2021-08-29 00:00:00 2021-08-29 00:00:00 Telephone JessicaLanie west [facility] 1.2.840.114 350.1.13.10 4.2.7.2.686 [id number] 220 [id number] [facility] 2021-08-25 15:00:00 2021-08-25 15:30:00 [facility] 1..840.114 350.1.13.10 4.2.7.2.686 [id number] [facility] 2021-08-25 15:00:00 2021-08-25 15:00:00 Outpatient R DEBRA IRVIN [facility] [id number] [facility] 2021-08-25 15:00:00 2021-08-25 15:00:00 Outpatient R DEBRA IRVIN [facility] [id number] [facility] 2021-08-23 09:30:00 2021-08-23 09:45:00 Supervisor Rose Grading Visit Lab, Avila Montes De Ocabrett [facility] MEDICAL OFFICE BUILDING 1..840.114 350.1.13.10 4.2.7.2.686 [id number] [facility] 2021-08-23 08:30:00 2021-08-23 09:16:15 Outpatient R LANIE LOPEZ [facility] [id number] [facility] 2021-08-23 08:30:00 2021-08-23 09:16:15 Office Visit Lanie Lopez [facility] MED[facility] OFF[facility] BUILD[facility] 1..840.114 350.1.13.10 4.2.7.2.686 [id number] 220 [id number] [facility] 2021-08-03 00:00:00 2021-08-03 00:00:00 Refill Dominguez [facility]?MAMI [facility] MEDICAL OFFICE BUILDING 1..840.114 350.1.13.10 4.2.7.2.686 [id number] [facility] 2021-08-02 16:00:00 2021-08-02 16:00:00 Outpatient FIONA HEART [facility] [id number] [facility] 2021-07-31 00:00:00 2021-07-31 00:00:00 Refill Dominguez [facility]I ASENCIO MEDICAL OFFICE BUILDING 1.840.114 350.1.13.10 4.2.7.2.686 [id number] 220 [id number] [facility] 2021-07-21 00:00:00 2021-07-21 00:00:00 Refill Angelica [facility]?MAMI [facility] MEDICAL OFFICE BUILD[facility] 1.840.114 350.1.13.10 4.2.7.2.686 [id number] 220 [id number] [facility] 2021-07-20 00:00:00 2021-07-20 00:00:00 Refill Nancy Cannon [facility] 1.84.114 350.1.13.10 4.2.7.2.686 [id number] [facility] 2021-05-17 00:00:00 2021-05-17 00:00:00 Refill Angelica [facility] SONIA PROFESSIO NAL BUILDING 1.84.114 350.1.13.10 4.2.7.2.686 [id number] 220 [id number] [facility] 2021-03-11 00:00:00 2021-03-11 00:00:00 [facility] BU[facility] 1.2.840.114 350.1.13.10 4.2.7.2.686 [id number] [facility] 2021-03-08 00:00:00 2021-03-08 00:00:00 Chema Venegas [facility] BUILDING 1.2.840.114 350.1.13.10 4.2.7.2.686 [id number] 220 [id number] [facility] 2021-02-23 13:30:00 2021-02-23 13:30:00 Outpatient JOSE CARTER [facility] [id number] [facility] 2021-02-09 00:00:00 2021-02-09 00:00:00 Orders Only Doctor Unassigned, [place] [facility] 1..840.114 350.1.13.10 4.2.7.2.686 [id number] [facility] 2021-01-30 00:00:00 2021-01-30 00:00:00 Outpatient FAYE ARMAS [facility] [id number] [facility] 2021-01-30 00:00:00 2021-01-30 00:00:00 Outpatient FAYE ARMAS [facility] [id number] [facility] 2021-01-24 00:00:00 2021-01-24 00:00:00 Faye Adkins [facility] HESHAM?[facility] LYONS MEDICAL OFF[facility] BUILDING 1.2.840.114 350.1.13.10 4.2.7.2.686 [id number] [facility] 2021-01-17 13:00:00 2021-01-17 13:00:00 Outpatient KIZZY DAWN HOWARD [facility] [id number] [facility] 2021-01-16 12:41:38 2021-01-16 12:56:38 Supervisor Rose Grading Visit Pob, Adc Lab Main Jose Bowen [facility] BUILDING 1.114 350.1.13.10 4.2.7.2.686 [id number] [facility] 2021-01-16 10:57:50 2021-01-16 11:58:36 Office Visit Jose Bowen Darci [facility] BUILDING 1.114 350.1.13.10 4.2.7.2.686 [id number] [facility] 2021-01-16 10:30:00 2021-01-16 11:58:36 Outpatient Smooth [facility] [id number] [facility] 2021-01-16 10:30:00 2021-01-16 11:58:36 Outpatient Smooth [facility] [id number] [facility] 2021-01-16 00:00:00 2021-01-16 00:00:00 Orders Only Doctor Unassigned, [place] [facility] 1.114 350.1.13.10 4.2.7.2.686 [id number] [facility] 2021-01-13 00:00:00 2021-01-13 00:00:00 Patient Secure Msg [facility] MED[facility] OFF[facility] BUILDING 1.114 350.1.13.10 4.2.7.2.686 [id number] 220 [id number] [facility] 2021-01-13 00:00:00 2021-01-13 00:00:00 Patient Secure Msg Canonn [facility] 1.114 350.1.13.10 4.2.7.2.686 [id number] [facility] 2021-01-10 00:00:00 2021-01-10 00:00:00 [facility] FLORENC[facility] MED[facility] OFFICE BUILDING 1.2.840.114 350.1.13.10 4.2.7.2.686 [id number] [facility] 2021-01-06 15:30:00 2021-01-06 16:04:28 Outpatient R NANCY CANNON [facility] [id number] [facility] 2021-01-06 15:25:33 2021-01-06 16:04:28 [facility] MEDICAL OFF[facility] BUILDING 1.2.840.114 350.1.13.10 4.2.7.2.686 [id number] [facility] 2021-01-06 15:30:00 2021-01-06 15:30:00 Outpatient R NANCY CANNON [facility] [id number] [facility] 2021-01-06 15:30:00 2021-01-06 15:30:00 Outpatient R NANCY CANNON [facility] [id number] [facility] 2021-01-05 14:30:00 2021-01-05 23:59:00 Outpatient R FAYE NAPOLES [facility] [id number] [facility] 2021-01-05 14:30:00 2021-01-05 23:59:00 Hospital Encounter [facility] MEDICAL OFFICE BUILDING 1.2.840.114 350.1.13.10 4.2.7.2.686 [id number] [facility] 2021-01-05 14:30:00 2021-01-05 14:30:00 [facility] [id number] [facility] 2021-01-05 14:30:00 2021-01-05 14:30:00 Outpatient R FAYE NAPOLES [facility] [id number] [facility] 2021-01-05 14:08:27 2021-01-05 14:23:27 Supervisor Rose Grading Visit Lab, Avila Silver [facility] MEDICAL OFFICE BUILDING 1.2.840.114 350.1.13.10 4.2.7.2.686 [id number] [facility] 2021-01-05 12:52:04 2021-01-05 14:06:37 Office Visit [facility] MEDICAL OFFICE BUILDING 1.2.840.114 350.1.13.10 4.2.7.2.686 [id number] [facility] 2021-01-05 00:00:00 2021-01-05 00:00:00 Orders Only Doctor Unassigned, [place] [facility] 1.2.840.114 350.1.13.10 4.2.7.2.686 [id number] [facility] 2020-12-23 00:00:00 2020-12-23 00:00:00 Telephone Chema Dominguez [facility] MEDICAL OFFICE BUILDING 1.2.840.114 350.1.13.10 4.2.7.2.686 [id number] [facility] 2020-12-12 09:00:00 2020-12-12 09:00:00 Outpatient FAYE ARMAS [facility] [id number] [facility] 2020-11-25 16:00:00 2020-11-25 16:00:00 Outpatient CHEMA MARIEE [facility] [id number] [facility] 2020-11-21 11:00:00 2020-11-21 11:00:00 Outpatient CHEMA MARIEE [facility] [id number] [facility] 2020-10-28 00:00:00 2020-10-28 00:00:[address] [facility] 1.2.840.114 350.1.13.10 4.2.7.2.686 [id number] 220 [id number] [facility] 2020-10-28 00:00:00 2020-10-28 00:00:00 [facility]phone [facility] 1.2840.114 350.1.13.10 4.2.7.2.686 [id number] 220 [id number] [facility] 2020-10-24 00:00:00 2020-10-24 00:00:00 RefSenia Nieto [facility] 1.2840.114 350.1.13.10 4.2.7.2.686 [id number] 220 [id number] [facility] 2020-10-20 00:00:00 2020-10-20 00:00:00 Chema Venegas [facility] Professio nal Building 1.2840.114 350.1.13.10 4.2.7.2.686 [id number] 220 [id number] [facility] 2020-10-20 00:00:00 2020-10-20 00:00:00 Chema Venegas [facility] Professio nal Building 1.2840.114 350.1.13.10 4.2.7.2.686 [id number] 220 [id number] [facility] 2020-07-24 00:00:00 2020-07-24 00:00:00 Chema Venegas [facility] Professio nal Building 1.2840.114 350.1.13.10 4.2.7.2.686 [id number] [facility] 2020-06-25 13:10:00 2020-06-25 13:10:00 Outpatient [facility] [id number] [facility] 2020-06-04 13:00:00 2020-06-04 13:00:00 Outpatient [facility] [id number] [facility] 2020-05-25 15:00:00 2020-05-25 15:00:00 Outpatient R LUARIES [facility] [id number] [facility] 2020-05-13 10:59:16 2020-05-13 12:12:32 Office Visit Chema Dominguez [facility] 1.2.840.114 350.1.13.10 4.2.7.2.686 [id number] 220 [id number] [facility] 2020-05-13 11:00:00 2020-05-13 11:00:00 Outpatient R CHEMA DOMINGUEZ [facility] [id number] [facility] 2020-05-10 14:30:00 2020-05-10 14:30:00 Outpatient Smooth LEIGHRHIANNONCY [facility] [id number] [facility] 2020-04-24 00:00:00 2020-04-24 00:00:00 Refill Chema Dominguez [facility] Building 1.2.840.114 350.1.13.10 4.2.7.2.686 [id number] [facility] 2020-02-15 00:00:00 2020-02-15 00:00:00 Refill Chema Dominguez [facility] Building 1.2.840.114 350.1.13.10 4.2.7.2.686 [id number] 220 [id number] [facility] 2020-02-11 00:00:00 2020-02-11 00:00:00 Refill Fiona Felix [facility] 1.2840.114 350.1.13.10 4.2.7.2.686 [id number] 220 [id number] [facility] 2020-01-29 09:00:00 2020-01-29 09:00:00 Outpatient R CHEMA [facility]UEZ [facility] [facility] [id number] [facility] 2020-01-28 00:00:00 2020-01-28 00:00:00 Orders Only Fiona Felix [facility] 1.2840.114 350.1.13.10 4.2.7.2.686 [id number] 009 [id number] [facility] 2020-01-27 00:00:00 2020-01-27 00:00:00 Telephone Chema Dominguez [facility] Building 1..840.114 350.1.13.10 4.2.7.2.686 [id number] 220 [id number] [facility] 2019-12-28 00:00:00 2019-12-28 00:00:00 Refill Chema Dominguez [facility] nal Building 1.2.840.114 350.1.13.10 4.2.7.2.686 [id number] 220 [id number] 2019-12-28 00:00:00 2019-12-28 00:00:00 Refill Chema Dominguez [facility] nal Building 1.2.840.114 350.1.13.10 4.2.7.2.686 [id number] 220 [id number] [facility] 2019-07-28 08:45:00 2019-07-28 08:45:00 Outpatient R [facility] [id number] [facility] 2019-07-24 08:17:11 2019-07-24 11:47:51 Telemedici ne [facility] 1.2.840.114 350.1.13.10 4.2.7.2.686 [id number] 220 [id number] [facility] 2019-07-24 08:17:11 2019-07-24 11:47:51 Telemedici ne Visit Chema Dominguez [facility] Building 1.2840.114 350.1.13.10 4.2.7.2.686 [id number] 220 [id number] 2019-07-24 10:30:00 2019-07-24 10:30:00 Outpatient R CHEMA DOMINGUEZ [facility] [id number] [facility] 2019-07-10 00:00:00 2019-07-10 00:00:00 Refill Isidro [facility] 1.2840.114 350.1.13.10 4.2.7.2.686 [id number] 220 [id number] [facility] 2019-07-10 00:00:00 2019-07-10 00:00:00 Refill Isidro [facility] 1.2840.114 350.1.13.10 4.2.7.2.686 [id number] 220 [id number] 2019-05-20 08:37:33 2019-05-20 13:26:38 Telemedici ne Visit Isidro [facility] 1.2840.114 350.1.13.10 4.2.7.2.686 [id number] 220 [id number] [facility] 2019-05-20 08:37:33 2019-05-20 13:26:38 Telemedici ne Visit Isidro [facility] 1.2840.114 350.1.13.10 4.2.7.2.686 [id number] 220 [id number] 2019-05-20 09:30:00 2019-05-20 09:30:00 Outpatient R ISIDRO [facility] [id number] [facility] 2019-05-20 00:00:00 2019-05-20 00:00:00 Telephone Isidro [facility] Building 1.2.840.114 350.1.13.10 4.2.7.2.686 [id number] 220 [id number] [facility] 2019-05-20 00:00:00 2019-05-20 00:00:00 Telephone Isidro [facility] Building 1.2.840.114 350.1.13.10 4.2.7.2.686 [id number] 220 [id number] 2019-05-19 14:15:00 2019-05-19 14:15:00 Outpatient R ISIDRO [facility] [id number] [facility] 2019-05-17 00:00:00 2019-05-17 00:00:00 Refill Isidro [facility] Building 1.2.840.114 350.1.13.10 4.2.7.2.686 [id number] 220 [id number] [facility] 2019-05-17 00:00:00 2019-05-17 00:00:00 Refill Nicole Andrea [facility] Building 1.2.840.114 350.1.13.10 4.2.7.2.686 [id number] 220 [id number] [facility] 2019-05-17 00:00:00 2019-05-17 00:00:00 Refill Isidro [facility] Building 1.2.840.114 350.1.13.10 4.2.7.2.686 [id number] 220 [id number] 2019-05-17 00:00:00 2019-05-17 00:00:00 Refill Nicole Andrea [facility] Building 1.2.840.114 350.1.13.10 4.2.7.2.686 [id number] 220 [id number] 2019-05-15 00:00:00 2019-05-15 00:00:00 Refill Isidro [facility] Building 1.2.840.114 350.1.13.10 4.2.7.2.686 [id number] 220 [id number] [facility] 2019-05-15 00:00:00 2019-05-15 00:00:00 Refill Isidro [facility] Building 1.2840.114 350.1.13.10 4.2.7.2.686 [id number] 220 [id number] 2019-04-28 00:00:00 2019-04-28 00:00:00 Refill Zully Nicole [facility] 1.2840.114 350.1.13.10 4.2.7.2.686 [id number] 220 [id number] [facility] 2019-04-28 00:00:00 2019-04-28 00:00:00 Refill Andrea, Nicole [facility] 1.2.840.114 350.1.13.10 4.2.7.2.686 [id number] 220 [id number] 2019-04-24 00:00:00 2019-04-24 00:00:00 Refill Isidro [facility] Building 1.2840.114 350.1.13.10 4.2.7.2.686 [id number] 220 [id number] [facility] 2019-04-24 00:00:00 2019-04-24 00:00:00 Refill Isidro [facility] Building 1.2840.114 350.1.13.10 4.2.7.2.686 [id number] 220 [id number] 2019-04-12 21:42:00 2019-04-12 21:42:00 Outpatient [facility] [id number] [facility] 2019-04-09 10:45:00 2019-04-09 10:45:00 Outpatient [facility] [id number] [facility] 2019-04-03 00:00:00 2019-04-03 00:00:00 Refill Fiona Felix [facility] Building 1.2.840.114 350.1.13.10 4.2.7.2.686 [id number] 220 [id number] [facility] 2019-04-03 00:00:00 2019-04-03 00:00:00 [facility] 1.2.840.114 350.1.13.10 4.2.7.2.686 [id number] 220 [id number] 2018-11-05 15:00:00 2018-11-05 15:00:00 Outpatient ARIES GUTIERREZ [facility] [id number] [facility] 2018-10-30 00:00:00 2018-10-30 00:00:00 Telephone [facility] 1.2.840.114 350.1.13.10 4.2.7.2.686 [id number] 220 [id number] [facility] 2018-10-30 00:00:00 2018-10-30 00:00:00 Telephone [facility] 1.2.840.114 350.1.13.10 4.2.7.2.686 [id number] 220 [id number] 2018-09-19 00:00:00 2018-09-19 00:00:00 Refill Nicole Andrea [facility] Building 1.2.840.114 350.1.13.10 4.2.7.2.686 [id number] 220 [id number] [facility] 2018-09-19 00:00:00 2018-09-19 00:00:00 Nicole Zaidi [facility] 1.2.840.114 350.1.13.10 4.2.7.2.686 [id number] 220 [id number] 2018-08-06 11:09:00 2018-08-06 11:09:00 [facility]patient [facility] [id number] [facility] 2018-04-23 01:12:00 2018-04-23 01:12:00 Outpatient [facility] [id number] [facility] 2018-04-22 16:00:00 2018-04-22 16:00:00 Outpatient [facility] [id number] [facility] 2017-10-29 09:06:00 2017-10-29 09:06:00 Outpatient [facility] [id number] [facility] 2017-10-25 23:08:00 2017-10-25 23:08:00 [facility] [id number] [facility] 2017-10-25 15:00:00 2017-10-25 15:00:00 Outpatient [facility] [id number] [facility] Results Test Description Test Time Test Comments Results Result Co mments Source [facility]/O SPECIFIC MFWMZLX3465-67-29 21:40:00* Test Item Value Reference Range Interpretation [...] = 3257) negative Negative - Negati ve [facility]2023-07-24 04:53:45* Test Item Value Reference Range Interpretation Comme nts MAGNESIUM (test code = 0851806941) 2.1 mg/dL 1.7-2.4 Lab Interpretation (test cod e = 11590-9) Normal [facility] MET[facility]OLIC PAN[facility] (62605)2022-09-17 04:53:25* Test Item Value Reference Range Interpretation Comme nts NA (test code = 4643327902) 142 mmol/L 135-145 K (test code = 1078318103) 4.0 mmol/L 3.5-5.0 CL (test code = 9048256749) 113 mmol/L 98-108 H CO2 TOTAL (test code = 6012261293) 26 mmol/L 23-31 AGAP (test code = 1074196648) 3 2-16 BUN (test code = 2746477019) 17 mg/dL 7-23 GLUCOSE (test code = 5852564537) 83 mg/dL 70-110 CREATININE (test code = 3115050133) 0.75 mg/dL 0.50-1.04 TOTAL BILI (test code = 7939630412) 0.3 mg/dL 0.1-1.1 CALCIUM (test code = 4905867853) 8.2 mg/dL 8.6-10.6 L T PROTEIN (test code = 2911407155) 6.6 g/dL 6.3-8.2 ALBUMIN (test code = 6558754711) 3.7 g/dL 3.5-5.0 ALK PHOS (test code = 2847191622) 68 U/L 34-122 ALTv (test code = 1742-6) 10 U/L 5-35 AST(SGOT) (test code = 3552506961) 12 U/L 13-40 L eGFR (test code = 1772579361) 84.3 mL/min/1.73m2 GRIFFIN (test code = GRIFFIN) [...] imaging tests). Lab Interpretation (test code = 83668-5) Abnormal [facility] TSOP5138-23-89 04:46:00* Test Item Value Reference Range Interpretation Comme nts POCT PREG (test code = 1605) Negative On board controls acceptable with C Line (test code = 3574) Yes POCT PREG LOT # (test code = 357 360875 POCT PREG TEST DATE ( test code = 3576) 02-07-2024 Lab Interpretation (test cod e = 22874-9) Normal [facility] WITH [id number] 04:41:49* Test Item Value Reference Range Interpretation Comme nts WBC (test code = 6690-2) 7.73 See_Comment [Automated [employer]] The system which generated this result transmitted reference range: 4.30 - 11.10 10*3/?L. The reference range was not used to interpret this result as normal/abnormal. RBC (test code = 789-8) 3.69 See_Comment L [Automated [employer]] The system which generated this result transmitted [...] 31.9 g/dL 31.6-35.1 RDW-SD (test code = 96900-1) 45.2 fL 39.0-49.9 RDW-CV (test code = 788-0) 14.3 % 12.0-15.5 PLT (test code = 777-3) 204 See_Comment [Automated [employer]] The system which generated this result transmitted reference range: 166 - 358 10*3/?L. The reference range was not used to interpret this result as normal/abnormal. MPV (test code = 00628-5) 10.2 fL 9.5-12.9 NRBC/100 WBC (test code = 2752631086) 0.0 See_Comment [Automated [employer]] The system which generated this result transmitted reference range: 0.0 - 10.0 /100 WBCs. The reference range was not used to interpret this result as normal/abnormal. NRBC x10^3 (test code = 7405774551) See_Comment [Automated [employer]] The system which generated this result transmitted reference range: 10*3/?L. The reference range was not used to interpret this result as normal/abnormal. GRAN MAT (NEUT) % (test code = 770-8) 70.4 % IMM GRAN % (test code = 2834134109) 0.50 % LYMPH % (test code = 736-9) 19.8 % MONO % (test code = 5905-5) 7.6 % EOS % (test code = 713-8) 1.4 % BASO % (test code = 706-2) 0.3 % GRAN MAT x10^3(ANC) (test code = 3005031183) 5.44 10*3/uL 1.88-7.09 IMM GRAN x10^3 (test code = 2378286796) 0.04 10*3/uL 0.00-0.06 LYMPH x10^3 (test code = 731-0) 1.53 10*3/uL 1.32-3.29 MONO x10^3 (test code = 742-7) 0.59 10*3/uL 0.33-0.92 EOS x10^3 (test code = 711-2) 0.11 10*3/uL 0.03-0.39 BASO x10^3 (test code = 704-7) 0.01-0.07 Lab Interpretation (test code = 84057-1) Abnormal [facility] (35987)2022-09-05 04:19:50* Test Item Value Reference Range Interpretation Comme nts NA (test code = 8588027101) 138 mmol/L 135-145 K (test code = 5057496468) 4.5 mmol/L 3.5-5.0 CL (test code = 9336907673) 107 mmol/L 98-108 CO2 TOTAL (test code = 9299854114) 26 mmol/L 23-31 AGAP (test code = 0706757214) 5 2-16 BUN (test code = 4136779001) 13 mg/dL 7-23 GLUCOSE (test code = 4130611420) 97 mg/dL 70-110 CREATININE (test code = 5184477230) 0.71 mg/dL 0.50-1.04 TOTAL BILI (test code = 8315062782) 0.6 mg/dL 0.1-1.1 CALCIUM (test code = 7888963640) 9.1 mg/dL 8.6-10.6 T PROTEIN (test code = 7318097643) 7.1 g/dL 6.3-8.2 ALBUMIN (test code = 3211724320) 4.2 g/dL 3.5-5.0 ALK PHOS (test code = 6505694832) 84 U/L 34-122 ALTv (test code = 1742-6) 15 U/L 5-35 AST(SGOT) (test code = 2354962459) 14 U/L 13-40 eGFR (test code = 5205574653) 89.8 mL/min/1.73m2 GRIFFIN (test code = GRIFFIN) [...] or urine or abnormalities in imaging tests). [facility] WITH DQQV2520-11-47 03:49:48* Test Item Value Reference Range Interpretation Comme nts WBC (test code = 6690-2) 8.89 See_Comment [Automated [employer]] The system which generated this result transmitted reference range: 4.30 - 11.10 10*3/?L. The reference range was not used to interpret this result as normal/abnormal. RBC (test code = 789-8) 4.01 See_Comment [Automated [employer]] The system which generated this result transmitted [...] g/dL 31.6-35.1 L RDW-SD (test code = 25539-0) 46.2 fL 39.0-49.9 RDW-CV (test code = 788-0) 14.1 % 12.0-15.5 PLT (test code = 777-3) 299 See_Comment [Automated [employer]] The system which generated this result transmitted reference range: 166 - 358 10*3/?L. The reference range was not used to interpret this result as normal/abnormal. MPV (test code = 99228-6) 10.5 fL 9.5-12.9 NRBC/100 WBC (test code = 9274568113) 0.0 See_Comment [Automated [employer]] The system which generated this result transmitted reference range: 0.0 - 10.0 /100 WBCs. The reference range was not used to interpret this result as normal/abnormal. NRBC x10^3 (test code = 6409017391) See_Comment [Automated [employer]] The system which generated this result transmitted reference range: 10*3/?L. The reference range was not used to interpret this result as normal/abnormal. GRAN MAT (NEUT) % (test code = 770-8) 83.0 % IMM GRAN % (test code = 4315601111) 0.60 % LYMPH % (test code = 736-9) 10.5 % MONO % (test code = 5905-5) 4.9 % EOS % (test code = 713-8) 0.8 % BASO % (test code = 706-2) 0.2 % GRAN MAT x10^3(ANC) (test code = 8595108166) 7.38 10*3/uL 1.88-7.09 H IMM GRAN x10^3 (test code = 4783447750) 0.05 10*3/uL 0.00-0.06 LYMPH x10^3 (test code = 731-0) 0.93 10*3/uL 1.32-3.29 L MONO x10^3 (test code = 742-7) 0.44 10*3/uL 0.33-0.92 EOS x10^3 (test code = 711-2) 0.07 10*3/uL 0.03-0.39 BASO x10^3 (test code = 704-7) 0.01-0.07 Lab Interpretation (test code = 92125-6) Abnormal [facility] Dvjg5157-64-08 12:22:00* Test Item Value Reference Range Interpretation Comme nts POCT PREG (test code = 1605) Negative On board controls acceptable with C Line (test code = 3574) Yes POCT PREG LOT # (test code = 3575) 377359 POCT PREG TEST DATE ( test code = 3576) 04694 Lab Interpretation (test cod e = 10483-1) Normal [facility] Xuhy9072-75-34 12:22:00* Test Item Value Reference Range Interpretation Comme nts POCT PREG (test code = 1605) Negative On board controls acceptable with C Line (test code = 3574) Yes POCT PREG LOT # (test code = 3575) 043486 POCT PREG TEST DATE ( test code = 3576) 59974 Lab Interpretation (test cod e = 30552-2) Normal [facility]. METABOLIC PANEL (03504)2022-07-28 22:53:38* Test Item Value Reference Range Interpretation Comme nts NA (test code = 8436990313) 139 mmol/L 135-145 K (test code = 9100882264) 3.6 mmol/L 3.5-5.0 CL (test code = 8670509216) 107 mmol/L 98-108 CO2 TOTAL (test code = 6917906707) 25 mmol/L 23-31 AGAP (test code = 6216555810) 7 2-16 BUN (test code = 0213060544) 14 mg/dL 7-23 GLUCOSE (test code = 1769898364) 97 mg/dL 70-110 CREATININE (test code = 0257848733) 0.73 mg/dL 0.50-1.04 TOTAL BILI (test code = 4318822373) 0.6 mg/dL 0.1-1.1 CALCIUM (test code = 0958560794) 9.0 mg/dL 8.6-10.6 T PROTEIN (test code = 9691187293) 6.8 g/dL 6.3-8.2 ALBUMIN (test code = 3578734468) 4.1 g/dL 3.5-5.0 ALK PHOS (test code = 4147626648) 75 U/L 34-122 ALTv (test code = 1742-6) 13 U/L 5-35 AST(SGOT) (test code = 4164551365) 12 U/L 13-40 L eGFR (test code = 3864797470) 87.0 mL/min/1.73m2 GRIFFIN (test code = GRIFFIN) [...] imaging tests). Lab Interpretation (test code = 50382-8) Abnormal [facility] WITH DUHP1656-27-87 22:41:58* Test Item Value Reference Range Interpretation [...] 33.4 g/dL 31.6-35.1 RDW-SD (test code = 88588-9) 43.9 fL 39.0-49.9 RDW-CV (test code = 788-0) 13.8 % 12.0-15.5 PLT (test code = 777-3) 225 See_Comment [Automated [employer]] The system which generated this result transmitted reference range: 166 - 358 10*3/?L. The reference range was not used to interpret this result as normal/abnormal. MPV (test code = 99024-1) 9.7 fL 9.5-12.9 NRBC/100 WBC (test code = 2746529467) 0.0 See_Comment [Automated [employer]] The system which generated this result transmitted reference range: 0.0 - 10.0 /100 WBCs. The reference range was not used to interpret this result as normal/abnormal. NRBC x10^3 (test code = 0332363476) See_Comment [Automated messa ge] The system which generated this result transmitted reference range: 10*3/?L. The reference range was not used to interpret this result as normal/abnormal. GRAN MAT (NEUT) % (test code = 770-8) 81.5 % IMM GRAN % (test code = 7551054946) 0.40 % LYMPH % (test code = 736-9) 11.0 % MONO % (test code = 5905-5) 6.3 % EOS % (test code = 713-8) 0.5 % BASO % (test code = 706-2) 0.3 % GRAN MAT x10^3(ANC) (test code = 6065020726) 6.20 10*3/uL 1.88-7.09 IMM GRAN x10^3 (test code = 3201588184) 0.03 10*3/uL 0.00-0.06 LYMPH x10^3 (test code = 731-0) 0.84 10*3/uL 1.32-3.29 L MONO x10^3 (test code = 742-7) 0.48 10*3/uL 0.33-0.92 EOS x10^3 (test code = 711-2) 0.04 10*3/uL 0.03-0.39 BASO x10^3 (test code = 704-7) 0.01-0.07 Lab Interpretation (test code = 26271-4) Abnormal [facility] HEMOGLOBIN A1C WLND1114-37-88 17:58:00* Test Item Value Reference Range Interpretation Comme [facility] POCT HBA1C (test code = 4548-4) 4.8 % 4-6 [facility] HEMOGLOBIN A1C FMQY6811-88-98 17:58:00* Test Item Value Reference Range Interpretation Comme [facility] POCT HBA1C (test code = 4548-4) 4.8 % 4-6 [facility] Notes Date/Time Note Provider Source 2023-05-27 09:15:50 Q572G5ugeHIlpf7MALGnKTTckfZoZnheFJH rptGLdcHZEfC5meVqXkT+Counts include 234 beds at the [facility]/2JE08780-0 05-26T09:15:50 Last Refilled:LEVOTHYROXINE 125 mcg tablet 90 tablet 1 12/02/2022 -- NoSig: TAKE 1 TABLET BY MOUTH EVERY DAY IN THE MORNINGSent to pharmacy as: levothyroxine 125 mcg tablet (SYNTHROID)Class: eRXRoute: OralOrder: [id number]/Time Signed: 12/02/2022 08:40E-Prescribing Status: Receipt confirmed by pharmacy (12/02/2022 8:40 AM CDT)Recent VisitsDate Type Provider Dept1 Office Visit Faye Napoles FNP [facility]09/04/22 Office Visit aFye Napoles FNP [facility] MedShowing recent visits within past 540 days with a meds authorizing provider and meeting all other requirementsFuture AppointmentsNo visits were found meeting these conditions.Showing future appointments within next 150 days with a meds authorizing provider and meeting all other requirements 46407-7Xiiaolfrg encounter MgvuTV0346-34-19P65:16:41Telephone encounter NoteTXT1.2.840.660550.1.13.104.2.7. 2.599526|[id number] for patient kncm48443-7CxxhPZBPACKCUCHXunuywesc C-CDA narrative [id number] Myers[address] XtwhOnebawcehMbppzgxcyCQUU823114070 3LIRPSFXZGIRSEBKSODIJDT7606-46-24E8 9:16:411.2.840.431802.1.72.3.15|1.2 .840.882179.1.13.104.2.7.2.727879_2 [id number] Laxmi Parra [facility] 2023-03-04 14:21:21 SSrj9fYz+3LQgWbiMspzISKhYTGZmrS7v6W Vmla0xqulijFzfDjRD9fs9+/JI0H19424-1 03-04T14:21:21 Images from the original note were not included.Last Refilled: 03/04/22Notes:[facility] [address]: Zuwumf VisitsDate Type Provider Dept1 Office Visit Faye [...] month ago (01/28/2023) by DANIEL Rubyeurology: Anticonvulsants-Topiramate Tkmlqu8903/02/2023 06:10 PMProtocol Details status completedManual Review: Forward refill prescription to provider if patient has had any seizure activity or since last office visitTopiramate in normal range and within 360 daysValid encounter within last 12 monthsTo be filled at: [id number] [place], [place] - [address] [address]-8Jqgllpkty encounter JgemYK5354-36-87W16:22:36Telephone encounter NoteTXT1.2.840.177848.1.13.104.2.7. 2.145836|[id number] for patient uxyc25335-0EcaxBUSXELOKPYZQobddbmcw C-CDA narrative [id number] L Corley [address] Zijv[id number] 5KTJCVVBJGNCPZQZUBYAYYX1334-01-45W7 4:22:361.2.840.324364.1.72.3.15|1.2 .840.174538.1.13.104.2.7.2.727879_1 [id number] Alexus Corley [facility] 2022-10-22 13:49:05 Xy2YV8PXn8zb+HWbQTE7SuzcVrm9vQh4Ogc b1sPW8j0k/4zquG45IOPCQeuR8FKR4456-0 3:49:05 Images from the original note were [...] last 12 months To be filled at: [facility][id number] - [address] AT [facility] Recent VisitsDate Type Provider Dept 09/04/22 Office Visit Faye Napoles FNP [facility] Showing recent visits within past 540 days with a meds authorizing provider and meeting all other requirementsFuture AppointmentsDate Type Provider Dept 03/07/23 Appointment Faye Napoles FNP [facility] Showing future appointments within next 150 days with a meds authorizing provider and meeting all other requirements 81444-0Uqmtjdiga encounter UhbeNT1571-89-14Y64:50:04Telephone encounter NoteTXT1.2.840.875066.1.13.104.2.7. 2.337990|[id number] for patient laei39864-6PvcpUT951119711Mcvessp M Fisher [id number] 5YOAEDENCKLZOMNJQXCBXEP8634-23-81H8 3:50:041.2.840.869781.1.72.3.15|1.2 .840.702972.1.13.104.2.7.2.727879_1 [id number] Kaye Moore [facility] 2022-10-18 16:00:38 ylmIpakamala/PWR5e1aKewXk5AfQ9uh9mD7+ozS JvfQaCs7/ifJQkVdX6AkOocQ4gV0I0919-0 6:00:38 [facility] 08/17/22NOV 01/21/23Per [facility] note:-- Continue Phentermine 37.5 mg daily, tolerates well, weight remains unchanged from [facility] at 254 lbs. 91460-0Sxhffqicu encounter UuolCF2235-00-96Y15:03:47Telephone encounter NoteTXT1.2.840.327535.1.13.104.2.7. 2.649043|[id number] for patient [id number] D Jetton [id number] 4BYVPMVGQFWTNELWJZYMYWO8728-03-32O2 6:03:471.2.840.761319.1.72.3.15|1.2 .840.814478.1.13.104.2.7.2.727879_1 [id number] Bibiana EVANSN [facility] 2022-10-18 15:44:34 iAH0k/QLT4+Jn5KfpwjB/TrcWRBZ4X2ksff gXlxTUKJHJw0f1OghNoUK6qUUrf3P8560-3 5:44:34 Pt is requesting a refill on RX. phentermine 37.5 mg capsule 91637-7Rotjxbbqs encounter WxdcPB8990-47-54I50:49:08Telephone encounter NoteTXT1.2.840.489569.1.13.104.2.7. 2.760496|[id number] for patient [id number] [address] Wg[id number] 4BZIZOZNAXEHUYFOKSKKAWT1185-92-54V9 5:49:081.2.840.506734.1.72.3.15|1.2 .840.316001.1.13.104.2.7.2.727879_1 [id number] Yvette Senior [facility] 2022-10-15 11:18:46 /cwfAhn034iKkTdT1fI1FHHZCBG3RLNVFtE 1OlsqkTfgr3eyQ6upTa21Zy8wNXwh8271-9 1:18:46 Images from the original note were [...] last 12 months To be filled at: [facility]/pharmacy #[id number] - [place], [place] - [address] AT [facility] Recent VisitsDate Type Provider Dept [...] authorizing provider and meeting all other requirements 49365-9Vrowuevqg encounter ZnxaWI7851-51-21Q67:21:13Telephone encounter NoteTXT1.2.840.338158.1.13.104.2.7. 2.077283|[id number] for patient [id number] J Medina [address] Bm[id number] 5LRZRVEAWBOQIZPKFSLFDNH5271-31-30N1 1:21:131.2.840.875831.1.72.3.15|1.2 .840.074362.1.13.104.2.7.2.727879_1 [id number] Lee Ann Kerns MA [facility] 2022-09-21 10:03:30 Esp0NAqiKHCgykLsJ0nBCsUsdZhVL8h44oc C0jnWOqYC1+5KPCbCmxi1QLIDh7YT6242-3 09-21T10:03:[address] Hartman 09/24/22.Ramses Crowley RN 09/21/2022 10:03 AM 65402-5Meyuzzlos encounter XwjwRZ6039-02-89Q22:03:55Telephone encounter NoteTXT1.2.840.455460.1.13.104.2.7. 2.297045|[id number] for patient [id number] Collins RN[id number] 9SSXMDOYFPVOCJFEGVHSUYF3699-44-25Y6 0:03:551.2.840.386095.1.72.3.15|1.2 .840.407472.1.13.104.2.7.2.727879_1 [id number] Ramses Crowley [facility] 2022-09-20 16:59:30 FYTjLkK0MD7l1L4YoN8CoGiq5DL2fOpFAVf RsrAe/mt4z055eaPVBGw0nnQDrxEO7110-9 6:59:30 Patient notified of results from CT [...] appt scheduled.Peggy Mcneil RN 09/20/2022 4:59 PM 53082-3Wuoedzakc encounter JulbHV2777-69-66C31:00:10Telephone encounter NoteTXT1.2.840.367815.1.13.104.2.7. 2.962555|[id number] for patient cwbj994583821Fkqowhg Stahl RN[id number] 2RQFVGPNIPCKZJTVGFFUCYM0791-06-13A9 7:00:101.2.840.180371.1.72.3.15|1.2 .840.729433.1.13.104.2.7.2.727879_1 [id number] Peggy Mcneil RN [facility] 2022-09-20 16:57:00 dgfWQUgo532QbxBkxyXo+mQ4cP+w2keA3F4 k0D+l+iUsMQVQj4+Lkz9hk2OPVsQl0999-2 09-20T16:57:00 Patient notified of results from CT [...] appt scheduled.Peggy Mcneil RN 09/20/2022 4:59 PM 00505-4Kjcpghhlf encounter GlbqNH3103-64-39E33:59:11Telephone encounter NoteTXT1.2.840.202399.1.13.104.2.7. 2.057732|[id number] for patient [id number] Stahl RN[address] Dz[id number] 2JSPJANLLGANUHBXRIXWACQ5781-19-84H5 6:59:111.2.840.726161.1.72.3.15|1.2 .840.585985.1.13.104.2.7.2.727879_1 [id number] Peggy Mcneil RN [facility] 2022-09-20 13:04:15 FfFG9ytizYbtWiO9TvTY6XQYVEcfli9Nj/4 JGXWBbhvprukdzSsLiaV0+CqlBb611996-3 3:04:15 Returned patients call, no answer, unable to leave voicemail.Peggy Mcneil RN 09/20/2022 1:36 PM 40056-1Swtskzerg encounter BjgbYL9166-12-92L76:36:18Telephone encounter NoteTXT1.2.840.722035.1.13.104.2.7. 2.447503|[id number] for patient [id number] 0ADVPRQPKNQJZZOTJRSUIJJ2722-02-91X1 3:36:181.2.840.475000.1.72.3.15|1.2 .840.722063.1.13.104.2.7.2.727879_1 [id number] [facility] 2022-09-20 10:58:59 BTkqJe7tneLFabrzVn8wsEQ0hWVgQUv1o9B amjWI6luove6WrgEmyB14BcbX+JMb5788-0 0:58:59 PT called and wanted to know what the next step going forward is going to be now that's she has been verified a hernia?Please advise 18112-4Xgmgydolc encounter IyeoLM0594-08-29U85:00:27Telephone encounter NoteTXT1.2.840.818241.1.13.104.2.7. 2.739071|[id number] for patient dvnv563437589Ghhqai G OrtizU[id number] 6KPFSIZOPUBGCROJHXTXQUT5252-34-77B8 1:00:271.2.840.393954.1.72.3.15|1.2 .840.174733.1.13.104.2.7.2.727879_1 [id number] Turner Amador [facility] 2022-09-20 07:58:03 /GWYXLhTILbR6amI5HuJgYwj1y5cnlV1fGW Et8DDy6L45Eip+yIz/o88ZGH06HVk0788-7 07:58:03 Sending patient Tagkastt message. 80393-5Xpzfqjnqn encounter YjebYS7290-40-89D56:00:40Telephone encounter NoteTXT1.2.840.114034.1.13.104.2.7. 2.150985|[id number] for patient [id number] D Jetton [address] Zm[id number] 0YYFHOZHLDBWFZUYGIAPXPB4359-31-61Y6 8:00:401.2.840.220213.1.72.3.15|1.2 .840.689784.1.13.104.2.7.2.727879_1 [id number] Bibiana Rocha [facility] 2022-09-19 14:38:54 kLXlOi2S4Qo4CkVHN4SdZs8Jr/39HIBOUOf Mpm39AbnvRS7iVDsHx7BAo/op/+iQ9936-8 09-19T14:38:[address] Dominguez, she is to double her dose for 3 days and then go back to her normal dose. 67947-5Qtphckccd encounter EwubWG0657-14-56I50:47:48Telephone encounter NoteTXT1.2.840.281668.1.13.104.2.7. 2.869067|[id number] for patient [id number] 2VCONAUATTDCLPAPHIFWZWL7253-60-22H4 4:47:481.2.840.200276.1.72.3.15|1.2 .840.384648.1.13.104.2.7.2.727879_1 [id number] [facility] 2022-09-19 10:17:55 mNeANt8Tt/ZIfFsow+pU9Sm3z7nWQRJukBM i/FukhxDaSOj5kAu3GyDAB+tDRlBW0503-7 0:17:55 Spoke to patient. 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 [facility] and was given emergency dose of cortisol and fluids for dehydration. Still reports dizziness, dehydration, feeling like she might faint. Not sure what she needs to do. 43467-6Bndanrnrq encounter TzxyZU8907-38-56N69:21:16Telephone encounter NoteTXT1.2.840.190425.1.13.104.2.7. 2.232309|[id number] for patient [id number] 7UDJFFEKPMMXXZXKAPUBYAO9045-34-27N5 0:21:161.2.840.100717.1.72.3.15|1.2 .840.984054.1.13.104.2.7.2.727879_1 [id number] [facility] 2022-09-19 09:54:11 iJN+O4MSgPSIZQYtlZTyNG5vqK5loHKx9pg 4RCKS2J2HSWZGmzusfVFfgsl7vaL98761-3 09:54:11 Patient would like a nurse to call her marshall regarding her Addisons disease. 22876-9Cigvrafxi encounter XrfxKT9524-21-04L23:56:14Telephone encounter NoteTXT1.2.840.272619.1.13.104.2.7. 2.771370|[id number] for patient mwsf677773686Rutlu K [id number] 8IUBXLYFROXILYZZBTFAJVW6183-90-92P4 9:56:141.2.840.026814.1.72.3.15|1.2 .840.521547.1.13.104.2.7.2.727879_1 [id number] Urszula Augustin [facility] 2022-09-18 16:47:44 ox7R0Dcl23Csd7kNAj99QZPvqCd3oTDXiPM uZWibsy5J2drFAygeEB5g2GXocMO26641-6 09-18T16:47:44 Unable to leave voice mail due to inbox being full. 17273-7Ienhacllv encounter OuxkCX8376-69-42O89:48:02Telephone encounter NoteTXT1.2.840.728463.1.13.104.2.7. 2.884119|[id number] for patient [id number] 1INYPLWYLKLHBEIAMVZXYKC0987-85-12E5 6:48:021.2.840.394420.1.72.3.15|1.2 .840.655873.1.13.104.2.7.2.727879_1 [id number] [facility] 2022-09-18 10:25:44 wmLryvlk+LAbYMQfffBZKIdLYl7rsrpksRf 5K5vJiD81cMA9FcaCPFebqEKO19Jm6354-0 09-18T10:25:[address] scan results. Do not describes any incisional hernias. Describes small bilateral inguinal hernias with fat. Small left ovarian cysts but the rest is ok.Likely patient is taking longer healing and [place] [address]-0Askfyhqhs encounter WefcTW7620-30-15A62:26:57Telephone encounter NoteTXT1.2.840.269369.1.13.104.2.7. 2.583620|[id number] for patient [address] EtfpEsluaqgmeYqszbaybtHLVH011287938 9HPLVPZQRFPMHYPEWMLGQLE9261-00-39T4 0:26:571.2.840.308354.1.72.3.15|1.2 .840.332705.1.13.104.2.7.2.727879_1 [id number] [facility] 2022-09-18 10:19:26 akOHNvmZtDuaakP/QBOmoefGstXqVAJ2vN5 RoHUdmESYsb08OhMiWK+mkl6OR1qC8486-8 7-25T10:19:26 Spoke with patient, name and verified. [...] in a crisis with her aston's disease. 54214-9Syrfyfrtw encounter JyedJS6224-83-81K46:22:49Telephone encounter NoteTXT1.2.840.318552.1.13.104.2.7. 2.683160|[id number] for patient [id number] 9MINHIISDTUNHMUGTCPDPHR3897-25-16M5 0:22:491.2.840.463098.1.72.3.15|1.2 .840.982887.1.13.104.2.7.2.727879_1 [id number] [facility] 2022-09-18 10:12:44 RifgDg8LMJuU8AgxaqeIraZY5qYuNEWyYGH IxAr7Ozat9damGpgIqOioigJCqMIz4141-7 09-18T10:12:44 Pt is wanting to discuss results with nurse and is wanting to know the next step. 66335-7Fitklmxjf encounter GkvgIU3521-17-56F25:13:47Telephone encounter NoteTXT1.2.840.787055.1.13.104.2.7. 2.436263|[id number] for patient kegk73837415Mvxdy J Barnshaw[id number] 1ZDJDSZAURWNARJZDBTWVIQ2922-45-04N3 0:13:471.2.840.873780.1.72.3.15|1.2 .840.815895.1.13.104.2.7.2.727879_1 [id number] Bri Broussard [facility] 2022-09-17 03:14:00 ZD+iVsL50uT9jcm4VE8z5KUG2/TnubnjhQY 7BLFpJsuPtaC0VAE79XT8FeP+eZX62262-4 09-17T03:14:00 Awake, alert oriented X4, respiratory even and unlabored,skin w/d color appropriate for race, moves all ext well, pt encouraged to follow up with pcp and or return as neededPt given printed and verbal discharge instructions regarding Syncope, Dizziness, Pain of right hip, hx of Aston's disease , patient verbralized understanding and signature obtained, patient denies any other concerns. Advised to seek medical attention for new/prolonged/worsening of symptoms, No adverse reaction to meds given in ER noted upon dischargePt [facility]ulated [facility] 29759-6Jwnajlvdb department CcjwZU1165-17-99C39:07:01Emergency department NoteTXT1.2.840.855944.1.13.104.2.7. 2.191472|[id number] for patient [address] Ed[id number] 8GCJNCWFMSTOBXCKHIVEBOE4545-88-13B6 4:07:011.2.840.323662.1.72.3.15|1.2 .840.076830.1.13.104.2.7.2.727879_1 [id number] [facility] 2022-09-17 01:03:03 z6EUrpQNeoM2zHb2Wj9KKj3oxIP4zuJLMYW 76o33Js97JcE/kyYTOQyVYC9G8OeY8058-3 09-17T01:03:03 Gave report to KESHAV Hernandez. [address]-5Urcoctxje[address] OxruBM5060-00-99J90:03:20[facility] NoteTXT1.2.840.716767.1.13.104.2.7. 2.460705|[id number] for patient gqof330568410Jedslowp M Felix RN[id number] 9JQRKSOEBLNGEHTNJRAWZHM8623-73-49X4 1:03:201.2.840.443453.1.72.3.15|1.2 .840.134959.1.13.104.2.7.2.727879_1 [id number] Venessa Guzman RN [facility] 2022-09-17 01:03:03 TzEzzWeuI2NrkfWjpvLDzu2aPt+T2O499Kb ZRUdz0y/S1xmX0AIQJpY2Rx8nkPx50034-0 01:03:03 Assumed care of patient, received report from KESHAV Echols. Visitor at bedside. Pt awaiting Ct-scan results. Will continue to monitor. [address]236-0Aymlwxufs[address] HwyoLJ8625-85-30W50:04:49[facility] NoteTXT1.2.840.680948.1.13.104.2.7. 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 31865-5Gyxydmyba department Triage udeyCQ5709-02-52D71:24:19Emergency department Triage noteTXT1.2.840.018984.1.13.104.2.7. 2.186157|[id number] for patient [id number] J Hoot RN[address] Zo[id number] 4DQSDAQTDOKEJHQMZSAIUOS3218-88-57Y5 2:24:191.2.840.649333.1.72.3.15|1.2 .840.461109.1.13.104.2.7.2.727879_1 [id number] Cookie Hernandez RN [facility]
[2023-06-13 00:08] LABS: Specific Gravity 1.008 (1.005-1.030)
[2023-06-13] MEDS ORDERED: PHENAZOPYRIDINE 100MG TAB PO ONE (00:10)
[2023-06-13] MEDS ORDERED: KETOROLAC 30 MG/ML INJ ONE (00:10)
[2023-06-13] MEDS ORDERED: ONDANSETRON 4 MG/2 ML VIAL ONE (00:10)
[2023-06-13] MEDS ORDERED: CEFTRIAXONE 1000 MG/VIAL ONE (00:10)
[2023-06-13] MEDS ORDERED: NA CHLORIDE 0.9% 1,000 ML ONE (00:11)
[2023-06-13] MEDS ORDERED: MORPHINE 4 MG/ML SYR ONE ×2 (00:11→01:39)
[2023-06-13] MEDS ORDERED: FAMOTIDINE 20 MG/2 ML VIAL IV ONE (00:11)
[2023-06-13 00:12] LABS: Specific Gravity 1.008 (1.005-1.030); Sqamous Epithelial <5 /HPF (None Seen); Urine Bacteria None Seen /HPF (<20); Urine Bilirubin NEGATIVE (Negative); Urine Blood 2+ (Negative); Urine Clarity Turbid (Clear); Urine Color Colorless (Yellow); Urine Culture Reflex Order REFLEXED; Urine Glucose NEGATIVE (Negative); Urine Ketones NEGATIVE (Negative); Urine Microscopic Reflex YN ORDER UMIC; Urine Nitrite NEGATIVE (Negative); Urine Protein NEGATIVE (Negative); Urine RBC <5 /HPF (None Seen); Urine Urobilinogen Normal (Normal); Urine WBC 20-50 /HPF (<5); Urine pH 7.5 (5.0-7.0)
[2023-06-13 00:27] LABS: Absolute Eosinophils 0.1 K/uL (0-0.5); Absolute Lymphocytes (CBC) 1.3 K/uL (0.7-4.9); Absolute Monocytes 0.5 K/uL (0.1-1.3); Absolute Neutrophil 5.9 K/uL (1.8-8.0); Basophils % 0.4 % (0-1.3); Eosinophils % 1.8 % (0-4.4); Hematocrit 35.7 % (36.0-45.0); Hemoglobin 12.1 g/dL (12.0-15.0); Lymphocytes % 16.4 % (15.3-44.8); MCH 28.7 pg (27.0-35.0); MCHC 33.8 g/dL (32.0-36.0); MCV 84.7 fL (80-100); MPV 7.6 fL (7.6-11.3); Neutrophils % 75.4 % (41.7-73.7); Platelets 268 thou/uL (152-406); RBC Red Blood Cell Count 4.22 M/uL (3.86-4.86); Red Cell Distribution Width 14.9 % (12.1-15.2)
[2023-06-13 00:37] LABS: ALT/SGPT 11 U/L (13-56); Albumin 3.8 g/dL (3.4-5.0); Alkaline Phosphatase 83 U/L (45-117); Anion Gap 6.7 mEq/L (5.0-15.0); BUN Blood Urea Nitrogen 10 mg/dL (7-18); Bicarbonate 27 mEq/L (21-32); Bilirubin Total 0.4 mg/dL (0.2-1.0); Globulin 3.8 g/dL (2.3-3.5); Glomerular Filtration Rate 89 ml/min (=/>90); Glucose Level 92 mg/dL (74-106); Lipase 22 U/L (13-75); Potassium 3.7 mEq/L (3.5-5.1); Protein, Total 7.6 g/dL (6.4-8.2); Sodium Level 137 mEq/L (136-145)
[2023-06-13 00:38] LABS: AST/SGOT < 4 U/L (15-37)
--- NOTE | 2023-06-13 03:43 | EDPHYS ---
Physician Documentation [facility] Name: Lavinia Jarrett Age: 42 yrs Sex: Female : 1980 Arrival Date: 06/12/2023 Time: 23:03 Bed 6 Private MD: ED Physician Ben Navarro HPI: 06/11 23:16 This 42 yrs old Female presents to ER via Unassigned with complaints of Back sp4 Pain, Nausea/Vomiting, Headache. 06/12 01:24 42-year-old female presents with a worsening right lower abdominal pain starting sp4 06/11/2023. Patient states she was here on 06/11/2023 and had full workup including CT abdomen pelvis with IV contrast. Patient was diagnosed with urinary tract infection prescribed p.o. ciprofloxacin. Which she has started at home. Pain has intensified prompting her to return to the emergency room. Patient CT abdomen pelvis with IV contrast from 06/11/2023 revealed unremarkable appendix, no free air, no free fluid, no acute intra-abdominal process. . 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 - Infectious Disease History:: Denies. - Social history:: Smoking status: Patient reports the use of cigarette tobacco products, denies chronic smoking, but will smoke occasionally, Reported history of juuling and/or vaping. Patient/guardian denies using alcohol, street drugs. - Family history:: not pertinent. ROS: 06/12 01:24 Constitutional: Negative for fever, chills, and weight loss, positive for abdominal sp4 pain positive for nausea, also positive for headache. All other systems are negative, Exam: 01:24 Constitutional: This is a well developed, well nourished patient who is awake, alert, sp4 and in no acute distress. Head/Face: Normocephalic, atraumatic. Eyes: Pupils equal round and reactive to light, extra-ocular motions intact. Lids and lashes normal. Conjunctiva and sclera are not injected. Cornea within normal limits. Periorbital areas with no swelling, redness, or edema. ENT: Nares patent. No nasal discharge, no septal abnormalities noted. Tympanic membranes are normal and external auditory canals are clear. Oropharynx with no redness, swelling, or masses, exudates, or evidence of obstruction, uvula midline. Mucous membranes moist. Neck: Trachea midline, no thyromegaly or masses palpated, and no cervical lymphadenopathy. Supple, full range of motion without nuchal rigidity, or vertebral point tenderness. Chest/axilla: Normal chest wall appearance and motion. Nontender with no deformity. No lesions are appreciated. Cardiovascular: Regular rate and rhythm with a normal S1 and S2. No gallops, murmurs, or rubs. Normal PMI, no JVD. No pulse deficits. Respiratory: Lungs have equal breath sounds bilaterally, clear to auscultation and percussion. No rales, rhonchi or wheezes noted. No increased work of breathing, no retractions or nasal flaring. Abdomen/GI: Soft, with normal bowel sounds. No distension or tympany. No guarding Positive for right lower quadrant abdominal tenderness with equivocal rebound Back: No spinal tenderness. No costovertebral tenderness. Skin: Warm, dry with normal turgor. Normal color with no rashes, no lesions, and no evidence of cellulitis. MS/ Extremity: Pulses equal, no cyanosis. Neurovascular intact. Full, normal range of motion. Neuro: Awake and alert, GCS 15, oriented to person, place, time, and situation. Cranial nerves II-XII grossly intact. Motor strength 5/5 in all extremities. Sensory grossly intact. Psych: Awake, alert, with orientation to person, place and time. Behavior, mood, and affect are within normal limits Vital Signs: 06/11 23:14 BP 167 / 90; Pulse 66; Resp 16; Temp 97.8; Pulse Ox 100% on R/A; Weight 107.95 kg; pf1 Height 5 ft. 5 in. ; 06/12 00:09 BP 150 / 88; Pulse 60; Resp 17; Pulse Ox 100% ; jj7 01:00 BP 143 / 73; Pulse 57; Resp 16; Pulse Ox 97% ; vc1 02:00 BP 131 / 76; Pulse 64; Resp 17; Pulse Ox 100% ; vc1 03:57 BP 122 / 61; Pulse 61; Resp 17; Temp 98; Pulse Ox 100% ; vc1 06/11 23:14 Body Mass Index 39.60 (107.95 kg, 165.1 cm) pf1 MDM: 06/11 23:19 Patient medically screened. sp4 06/12 03:36 ED course: DLP: 1740 mGy*cm COMPARISON: CT abdomen and pelvis dated 06/11/2023. sp4 FINDINGS: LUNG BASES: Unremarkable. No mass. No consolidation. ABDOMEN: LIVER: Unremarkable. GALLBLADDER AND BILE DUCTS: Prior cholecystectomy. No ductal dilation. PANCREAS: Unremarkable. No ductal dilation. SPLEEN: Unremarkable. No splenomegaly. ADRENALS: Unremarkable. No mass. KIDNEYS AND URETERS: Unremarkable. No obstructing stones. No hydronephrosis. STOMACH AND BOWEL: Unremarkable. No obstruction. No mucosal thickening. PELVIS: APPENDIX: The appendix is seen and is within normal limits. BLADDER: Unremarkable. No stones. REPRODUCTIVE: Left ovarian cyst measuring 2.1 cm. ABDOMEN and PELVIS: INTRAPERITONEAL SPACE: Unremarkable. No free air. No significant fluid collection. BONES/JOINTS: Lower lumbar degenerative changes. No acute fracture. No dislocation. SOFT TISSUES: Prior ventral hernia repair with mesh placement. VASCULATURE: Unremarkable. No abdominal aortic aneurysm. LYMPH NODES: Unremarkable. No enlarged lymph nodes. IMPRESSION: 1. No acute abdominal or pelvic abnormality. 2. Left ovarian cyst measuring 2.1 cm. ACR White Paper guidelines . 03:39 Differential diagnosis: Cholelithiasis Peptic Ulcer Pyelonephritis appendicitis. Data sp4 reviewed: vital signs, nurses notes, lab test result(s), radiologic studies, CT scan. Consideration of Admission/Observation Escalation of care including admission/observation considered. ED course: Repeat CAT scan was done to rule out evaluation all of the acute appendicitis. CT negative today for signs of acute appendicitis, left ovarian cyst was noted. Patient stable for discharge home with recommendation to finish ciprofloxacin that she was prescribed yesterday. Symptomatic medications will be prescribed -Pyridium, tramadol, ibuprofen, Phenergan. 06/11 23:19 Order name: CBC with Diff; Complete Time: : sp4 06/11 23:19 Order name: CMP; Complete Time: sp4 06/11 23:19 Order name: Lipase; Complete Time: 01: sp4 06/11 23:19 Order name: Test, Urine; Complete Time: : sp4 06/11 23:19 Order name: Urinalysis w/ reflexes; Complete Time: 01: sp4 06/12 01:22 Order name: CT Abd/Pelvis - Without Contrast sp4 06/11 23:19 Order name: IV Saline Lock; Complete Time: 00:26 sp4 06/11 23:19 Order name: Labs collected and sent; Complete Time: 00: sp4 Administered Medications: 00:25 Drug: NS 0.9% IV 1000 ml IV at 1 bolus Per protocol; 1000 mL bolus Route: IV; Rate: 1 jj7 bolus; Site: left antecubital; 04:02 Follow up: IV Status: Completed infusion; IV Intake: 1000ml vc1 00:25 Drug: Famotidine IVP 20 mg IVP once; dilute with 10 mL 0.9% NaCl; give over 2 minutes jj7 Route: IVP; Site: left antecubital; 04:02 Follow up: Response: No adverse reaction; Marked relief of symptoms vc1 00:26 Drug: TORadol - Ketorolac IVP 15 mg IVP once Route: IVP; Site: left antecubital; jj7 03:57 Follow up: Response: Marked relief of symptoms; Pain is decreased vc1 00:26 Drug: Ondansetron IVP 4 mg IVP once; over 2 minutes Route: IVP; Site: left antecubital; jj7 04:03 Follow up: Response: No adverse reaction vc1 00:26 Drug: morphine IVP or IV 4 mg IVP once over 4 mins Route: IVP; Infused Over: 4 mins; jj7 Site: left antecubital; 03:58 Follow up: Response: No adverse reaction; Marked relief of symptoms; Pain is decreased vc1 00:26 Drug: Phenazopyridine PO 200 mg PO once Route: PO; jj7 03:58 Follow up: Response: No adverse reaction; Marked relief of symptoms; Pain is decreased vc1 00:26 Drug: Rocephin - Rocephin (cefTRIAXone) IVPB 1 grams IVPB once over 30 mins; (mix in 50 jj7 mL NS) Route: IVPB; Infused Over: 30 mins; Site: left antecubital; 01:00 Follow up: IV Status: Completed infusion; IV Intake: 50ml vc1 01:43 Drug: morphine IVP or IV 4 mg IVP once over 4 mins Route: IVP; Infused Over: 4 mins; vc1 Site: left antecubital; 03:58 Follow up: Response: No adverse reaction; Marked relief of symptoms; Pain is decreased vc1 03:58 Drug: Welches PO 10 mg-325 mg 1 tabs PO once Route: PO; vc1 03:58 Follow up: Response: Medication administered at discharge. vc1 03:59 Drug: Dicyclomine PO 20 mg PO once Route: PO; vc1 03:59 Follow up: Response: Medication administered at discharge. vc1 03:59 Drug: Ibuprofen PO 800 mg PO once Route: PO; vc1 03:59 Follow up: Response: Medication administered at discharge. vc1 Disposition Summary: 06/13/23 03:42 Discharge Ordered Notes: Please finish Ciprofloxacin prescribed during prior visit Location: Home sp4 Problem: new sp4 Symptoms: have improved sp4 Condition: Stable sp4 Diagnosis - Pyelonephritis acute sp4 - Lower abdominal pain, unspecified sp4 - Other ovarian cysts sp4 Followup: sp4 - With: Private Physician - When: 7 - 10 days - Reason: Recheck today's complaints Discharge Instructions: - Discharge Summary Sheet sp4 - Pyelonephritis, Adult, Debg-fr-Yvyr sp4 Forms: - Patient Portal Instructions sp4 Prescriptions: - Ibuprofen 800 mg Oral Tablet - take 1 tablet ORAL route every 8 hours As needed take with food; 30 tablet; sp4 Refills: 0, Product Selection Permitted - Pyridium 200 mg Oral Tablet - take 1 tablet ORAL route every 8 hours for 3 days; 9 tablet; Refills: 0, sp4 Product Selection Permitted - Tramadol 50 mg Oral tablet - take 1 tablet ORAL route every 8 hours as needed; 20 tablet; Refills: 0, sp4 Product Selection Permitted - promethazine 25 mg Oral tablet - take 1 tablet ORAL route every 6 hours As needed PRN nausea; 30 tablet; sp4 Refills: 0, Product Selection Permitted Signatures: [facility] EDEly Nuno RN RN vc1 Miradna Keyes RN RN jj7 Tejal Ernandez RN RN pf1 Ben Navarro MD MD sp4 Corrections: (The following items were deleted from the chart) 06/11 23:20 23:20 CBC+H.LAB.BRZ ordered. EDMS EDMS 23:20 23:20 COMPREHENSIVE METABOLIC PANEL+C.LAB.BRZ ordered. EDMS EDMS 23:20 23:20 LIPASE+C.LAB.BRZ ordered. EDMS EDMS 23:20 23:20 Test, Urine+UC.LAB.BRZ ordered. EDMS EDMS 23:20 23:20 Urinalysis+U.LAB.BRZ ordered. EDMS EDMS 06/12 01:22 01:22 Abdomen Pelvis Wo Con+CT.RAD.BRZ ordered. EDMS EDMS
--- NOTE | 2023-06-13 03:43 | ER ---
Nurse's Notes [facility] Name: Lavinia Jarrett Age: 42 yrs Sex: Female : 1980 Arrival Date: 06/12/2023 Time: 23:03 Bed 6 Private MD: Diagnosis: Pyelonephritis acute;Lower abdominal pain, unspecified;Other ovarian cysts Presentation: 06/11 23:14 Chief complaint: Patient states: back pain of 10 with dysuria, frequency, urgency and pf1 suprapubic pain,onset 4 days with headache, chills and nausea,onset today. Patient stated was seen here yesterday for the back pain and was diagnosed with UTI, was prescribed antibiotics. Coronavirus screen:. Coronavirus screen: Client denies travel out of the [place] in the last 14 days. Client presents with at least one sign or symptom that may indicate coronavirus-19. Standard/surgical mask placed on the client. Ebola Screen: Patient negative for fever greater than or equal to 101.5 degrees Fahrenheit, and additional compatible Ebola Virus Disease symptoms No symptoms or risks identified at this time. Initial Sepsis Screen: Does the patient meet any 2 criteria? No. Patient's initial sepsis screen is negative. Does the patient have a suspected source of infection? No. Patient's initial sepsis screen is negative. Risk Assessment: Do you want to hurt yourself or someone else? Patient reports no desire to harm self or others. Onset of symptoms was June 08, 2023. 23:14 Method Of Arrival: Ambulatory pf1 23:14 Acuity: KIKA 3 pf1 Triage Assessment: 23:21 General: Appears in no apparent distress. comfortable, well groomed, well developed, pf1 Behavior is calm, cooperative, appropriate for age, quiet. Pain: Complains of pain in back,pelvis,headache. Neuro: Reports headache. : Reports pain in suprapubic area urgency, urinary frequency. Musculoskeletal: Reports pain in back and pelvis. 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 - Infectious Disease History:: Denies. - Social history:: Smoking status: Patient reports the use of cigarette tobacco products, denies chronic smoking, but will smoke occasionally, Reported history of juuling and/or vaping. Patient/guardian denies using alcohol, street drugs. - Family history:: not pertinent. Screenin/18 00:26 [facility] ED Fall Risk Assessment (Adult) History of falling in the last 3 months, jj7 including since admission No falls in past 3 months (0 pts) Confusion or Disorientation No (0 pts) Intoxicated or Sedated No (0 pts) Impaired Gait No (0 pts) Mobility Assist Device Used No (0 pt) Altered Elimination No (0 pt) Score/Fall Risk Level 0 - 2 = Low Risk Oriented to surroundings, Maintained a safe environment, Educated pt \T\ family on fall prevention, incl call for assistance when getting out of bed. Abuse screen: Denies threats or abuse. Nutritional screening: No deficits noted. Tuberculosis screening: No symptoms or risk factors identified. Assessment: 00:09 General: Appears in no apparent distress. comfortable, Behavior is calm, cooperative, jj7 appropriate for age. Pain: Complains of pain in head, back and pelvis. Neuro: Reports headache. : Reports burning with urination, pain in suprapubic area flank(s). 00:10 Neuro: Level of Consciousness is awake, alert, obeys commands, Oriented to person, vc1 place, time, situation, Appropriate for age. 01:00 Reassessment: No changes from previously documented assessment. Patient and/or family vc1 updated on plan of care and expected duration. Pain level reassessed. Patient is alert, oriented x 3, equal unlabored respirations, skin warm/dry/pink. 02:00 Reassessment: No changes from previously documented assessment. Patient and/or family vc1 updated on plan of care and expected duration. Pain level reassessed. Patient is alert, oriented x 3, equal unlabored respirations, skin warm/dry/pink. 03:00 Reassessment: Patient appears in no apparent distress at this time. No changes from vc1 previously documented assessment. Patient and/or family updated on plan of care and expected duration. Pain level reassessed. Patient is alert, oriented x 3, equal unlabored respirations, skin warm/dry/pink. 03:55 Reassessment: Patient and/or family updated on plan of care and expected duration. Pain vc1 level reassessed. Patient is alert, oriented x 3, equal unlabored respirations, skin warm/dry/pink. Patient states feeling better. Patient states symptoms have improved. Vital Signs: 06/11 23:14 BP 167 / 90; Pulse 66; Resp 16; Temp 97.8; Pulse Ox 100% on R/A; Weight 107.95 kg; pf1 Height 5 ft. 5 in. ; 06/12 00:09 BP 150 / 88; Pulse 60; Resp 17; Pulse Ox 100% ; jj7 01:00 BP 143 / 73; Pulse 57; Resp 16; Pulse Ox 97% ; vc1 02:00 BP 131 / 76; Pulse 64; Resp 17; Pulse Ox 100% ; vc1 03:57 BP 122 / 61; Pulse 61; Resp 17; Temp 98; Pulse Ox 100% ; vc1 06/11 23:14 Body Mass Index 39.60 (107.95 kg, 165.1 cm) pf1 ED Course: 06/11 23:07 Patient arrived in ED. gm2 23:15 Ben Navarro MD is Attending Physician. sp4 23:19 Triage completed. pf1 23:24 Arm band placed on right wrist. pf1 23:45 Urine collected: clean catch specimen. pf1 23:55 Test, Urine Sent. pf1 23:55 Urinalysis w/ reflexes Sent. pf1 06/12 00:20 Inserted saline lock: 22 gauge in left antecubital area, using aseptic technique. Blood jj7 collected. 00:26 Patient has correct armband on for positive identification. Bed in low position. Call jj7 light in reach. Side rails up X 1. Client placed on continuous cardiac and pulse oximetry monitoring. NIBP monitoring applied. Door closed. Lights dimmed. Warm blanket given. 00:26 CBC with Diff Sent. jj7 00:26 CMP Sent. jj7 00:26 Lipase Sent. jj7 01:46 CT Abd/Pelvis - Without Contrast In Process Unspecified. EDMS 04:00 No provider procedures requiring assistance completed. IV discontinued, intact, vc1 bleeding controlled, No redness/swelling at site. Pressure dressing applied. 04:01 Provided Education on: complete abx, Pyridium may turn urine orange. vc1 Administered Medications: 00:25 Drug: NS 0.9% IV 1000 ml IV at 1 bolus Per protocol; 1000 mL bolus Route: IV; Rate: 1 jj7 bolus; Site: left antecubital; 04:02 Follow up: IV Status: Completed infusion; IV Intake: 1000ml vc1 00:25 Drug: Famotidine IVP 20 mg IVP once; dilute with 10 mL 0.9% NaCl; give over 2 minutes jj7 Route: IVP; Site: left antecubital; 04:02 Follow up: Response: No adverse reaction; Marked relief of symptoms vc1 00:26 Drug: TORadol - Ketorolac IVP 15 mg IVP once Route: IVP; Site: left antecubital; jj7 03:57 Follow up: Response: Marked relief of symptoms; Pain is decreased vc1 00:26 Drug: Ondansetron IVP 4 mg IVP once; over 2 minutes Route: IVP; Site: left antecubital; jj7 04:03 Follow up: Response: No adverse reaction vc1 00:26 Drug: morphine IVP or IV 4 mg IVP once over 4 mins Route: IVP; Infused Over: 4 mins; jj7 Site: left antecubital; 03:58 Follow up: Response: No adverse reaction; Marked relief of symptoms; Pain is decreased vc1 00:26 Drug: Phenazopyridine PO 200 mg PO once Route: PO; jj7 03:58 Follow up: Response: No adverse reaction; Marked relief of symptoms; Pain is decreased vc1 00:26 Drug: Rocephin - Rocephin (cefTRIAXone) IVPB 1 grams IVPB once over 30 mins; (mix in 50 jj7 mL NS) Route: IVPB; Infused Over: 30 mins; Site: left antecubital; 01:00 Follow up: IV Status: Completed infusion; IV Intake: 50ml vc1 01:43 Drug: morphine IVP or IV 4 mg IVP once over 4 mins Route: IVP; Infused Over: 4 mins; vc1 Site: left antecubital; 03:58 Follow up: Response: No adverse reaction; Marked relief of symptoms; Pain is decreased vc1 03:58 Drug: [place] PO 10 mg-325 mg 1 tabs PO once Route: PO; vc1 03:58 Follow up: Response: Medication administered at discharge. vc1 03:59 Drug: Dicyclomine PO 20 mg PO once Route: PO; vc1 03:59 Follow up: Response: Medication administered at discharge. vc1 03:59 Drug: Ibuprofen PO 800 mg PO once Route: PO; vc1 03:59 Follow up: Response: Medication administered at discharge. vc1 Medication: 00:26 VIS not applicable for this client. jj7 Intake: 01:00 IV: 50ml; Total: 50ml. vc1 04:02 IV: 1000ml; Total: 1050ml. vc1 Outcome: 03:42 Discharge ordered by . john 04:00 Discharged to home ambulatory, vc1 04:00 Condition: improved 04:00 Discharge instructions given to patient, Instructed on discharge instructions, follow up and referral plans. medication usage, Demonstrated understanding of instructions, follow-up care, medications, Prescriptions given X 4, 04:01 Patient left the ED. vc1 Signatures: Dispatcher [employer] EDMS Ely Barry RN RN vc1 Miranda Keyes RN RN jj7 Finley, Pamala, RN RN pfBen Martinez MD MD sp4 Arlene Luna gm2 Corrections: (The following items were deleted from the chart) 06/11 23:24 23:14 Chief complaint: Patient states: back pain,onset 4 days with headache, chills and pf1 nausea,onset today. Patient stated was seen here yesterday for the back pain and was diagnosed with UTI, was prescribed antibiotics. pf1 06/12 00:30 00:26 General: Appears in no apparent distress. comfortable, Behavior is calm, jj7 cooperative, appropriate for age, jj7 00:30 00:26 Pain: Complains of pain in head, back and pelvis jj7 jj7 00:30 00:26 Neuro: Reports headache jj7 jj7 :30 00:26 : Reports burning with urination, pain in suprapubic area flank(s), jj7 jj7
[2023-06-13] MEDS ORDERED: DICYCLOMINE HCL 10 MG CAP ONE (03:50)
[2023-06-13] MEDS ORDERED: HYDROCODONE/APAP 10/325 TAB ONE (03:50)
[2023-06-13] MEDS ORDERED: IBUPROFEN 400 MG TAB ONE (03:51)
[2023-06-13 16:54] VITALS: BP 122/61; TEMP 98; O2SAT 100
--- NOTE | 2023-06-13 20:38 | RAD REPORT ---
EXAM DESCRIPTION: CT - Abdomen Pelvis Wo Contrast - 06/13/2023 6:42 am CLINICAL HISTORY: The patient is 42 years old and is Female; RLQ PAIN TECHNIQUE: Axial computed tomography images of the abdomen and pelvis without intravenous contrast. Sagittal and coronal reformatted images were created and reviewed. This CT exam was performed usi ng one or more of the following dose reduction techniques: automated exposure control, adjustment o f the mA and/or kV according to patient size, and/or use of iterative reconstruction technique. DLP: 1740 mGy*cm COMPARISON: CT abdomen and pelvis dated 06/11/2023. FINDINGS: LUNG BASES: Unremarkable. No mass. No consolidation. ABDOMEN: LIVER: Unremarkable. GALLBLADDER AND BILE DUCTS: Prior cholecystectomy. No ductal dilation. PANCREAS: Unremarkable. No ductal dilation. SPLEEN: Unremarkable. No splenomegaly. ADRENALS: Unremarkable. No mass. KIDNEYS AND URETERS: Unremarkable. No obstructing stones. No hydronephrosis. STOMACH AND BOWEL: Unremarkable. No obstruction. No mucosal thickening. PELVIS: APPENDIX: The appendix is seen and is within normal limits. BLADDER: Unremarkable. No stones. REPRODUCTIVE: Left ovarian cyst measuring 2.1 cm. ABDOMEN and PELVIS: INTRAPERITONEAL SPACE: Unremarkable. No free air. No significant fluid collection. BONES/JOINTS: Lower lumbar degenerative changes. No acute fracture. No dislocation. SOFT TISSUES: Prior ventral hernia repair with mesh placement. VASCULATURE: Unremarkable. No abdominal aortic aneurysm. LYMPH NODES: Unremarkable. No enlarged lymph nodes. IMPRESSION: 1. No acute abdominal or pelvic abnormality. 2. Left ovarian cyst measuring 2.1 cm. ACR White Paper guidelines ([place], et. al. JACR 2020;17(2) :248-254) suggest no follow-up is necessary. Electronically signed by: Zackery Haas DO 06/13/2023 02:22 AM CDT Due to temporary technical issues with the PACS/Fluency reporting system, reports are being signed by the in house radiologists without review as a courtesy to insure prompt reporting. The interpreting radiologist is fully responsible for the content of the report.
== END 2023-06-13 04:01 | disposition home or self-care (01) ==
LOC: ER 23:03
DX: N10 Acute pyelonephritis (principal); N83.299 Other ovarian cyst, unspecified side; F17.210 Nicotine dependence, cigarettes, uncomplicated; Z91.040 Latex allergy status
CPT/HCPCS: 96365; 96361; 85025; 81001; 36415; 81025; 83690; 80053; 74176; 96375; 99284; J2405; J7030; J0696

== ENCOUNTER 2023-06-22 18:51 | Emergency (ER) | payer OTHER ==
--- OUTSIDE RECORDS SUMMARY | 2023-06-22 18:59 | XMS REPORT | Continuity of Care Document ---
Author Name Unknown Address [address] [facility] [address] [place] [address] [facility] thconnect Address [address] [facility] [address] [place] [address] Care Team Providers Care Press Pipe Inspector Name Role Phone FAYE NAPOLES Primary Care Physician Unavailab Cinda Figueroa Attending Clinician Unavailable BROOKLYN HARTMAN Attending Clinician BROOKLYN Flores Attending Clinician PERCY Elizondo Attending Clinician Unavailable UNKNOWN, ATTENDING Attending Clinician Unavailab FAYE Wallace Attending Clinician Unavailable Faye Rothman Attending Clinician [phone] Percy Andrade MD Attending Clinician [phone] Doctor Unassigned, [place] Attending Clinician U navailable LANIE LOPEZ Attending Clinician Unavailable LANIE LOPEZ Attending Clinician Unavailable KIZZY MACKEY Attending Clinician Unavail able KIZZY MACKEY Attending Clinician Unavail able Stephanie, Ang - Db Attending Clinician Unavailable TEJAL SULLIVAN Attending Clinician Unavailable Tejal Sullivan NP Attending Clinician [phone] Jose Bowen MD Attending Clinician [phone] EMILY GIL Attending Clinician Unavailable Emily Jesus Attending Clinician [phone] Marco Gayle MD Attending Clinician [phone] MARCO GAYLE Attending Clinician Unavailable MOO PARK Attending Clinician Unavailable Moo [place] Attending Clinician [phone] Jacki PARR, Pearl Herrera Attending Clinician UnaARIES Spaulding Attending Clinician Unavailable Chema Dominguez MD Attending Clinician [phone] DEBRA IRVIN Attending Clinician Unavailable Nancy Gutierrez Attending Clinician [phone] Debra Irvin MD Attending Clinician [phone] FIONA FELIX Attending Clinician Unavailable JOSE BOWEN Attending Clinician Unavailable Pob, [facility] Attending Clinician Unavailamna Leigh PA-C, Aries Attending Clinician [phone] NANCY CANNON Attending Clinician Unavailable CHEMA DOMINGUEZ Attending Clinician UnavailJosse CUETO, Maribell Attending Clinician [phone] Senia Esparza DO Attending Clinician [phone] Fiona Felix MD Attending Clinician [phone] Zully VASQUEZ, Nicole Hsieh Attending Clinician FAYE Kahn Admitting Clinician Unavailable TEJAL SULLIVAN Admitting Clinician Unavailable BROOKLYN HARTMAN Admitting Clinician MOO Arthur Admitting Clinician Unavailable Payers Payer Name Policy Type Policy Number Effective Date Expirati on Date Source [facility] [id number] 2016 00:00:00 Problems Condition Name Condition Details Condition Category Status Onset Date Resolution Date Last Treatment Date Treating Clinician Comments Source Vitiligo Vitiligo Disease Active 2022-02 00:00: 00 [facility] Eczema, unspecifie d type Eczema, unspecifie d type Disease Active 2022-02 00:00: 00 [facility] Status post hysterecto my Status post hysterecto my Disease Active 09-04 00:00: 00 [facility] Hematoma Hematoma Disease Active 09-04 00:00: 00 [facility] Bipolar disorder Bipolar disorder Disease Active 08-30 00:00: 00 [facility] CPAP (continuou s positive airway pressure) dependence CPAP (continuou s positive airway pressure) dependence Disease Active 08-30 00:00: 00 [facility] Diverticul osis of intestine without bleeding, unspecifie d intestinal tract location Diverticul osis of intestine without bleeding, unspecifie d intestinal tract location Disease Active 08-30 00:00: 00 [facility] Gastroesop hageal reflux disease Gastroesop hageal reflux disease Disease Active 08-30 00:00: 00 [facility] History of excision of intestinal structure History of excision of intestinal structure Disease Active 08-30 00:00: 00 [facility] Insomnia, unspecifie d type Insomnia, unspecifie d type Disease Active 08-30 00:00: 00 [facility] Migraine without status migrainosu s, not intractabl e, unspecifie d migraine type Migraine without status migrainosu s, not intractabl e, unspecifie d migraine type Disease Active 08-30 00:00: 00 [facility] Mixed anxiety and depressive disorder Mixed anxiety and depressive disorder Disease Active 08-30 00:00: 00 [facility] Obstructiv e sleep apnea Obstructiv e sleep apnea Disease Active 08-30 00:00: 00 [facility] Graves' disease Graves' disease Disease Active 08-02 00:00: 00 [facility] Abdominal pain, right lower quadrant Abdominal pain, right lower quadrant Disease Active 08-02 00:00: 00 Overview: Formattin g of this note might be different from the original. Added automatic ally from request for surgery [id number] [facility] Right ovarian cyst Right ovarian cyst Disease Active 08-02 00:00: 00 Overview: Formattin g of this note might be different from the original. 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 05-23 00:00: 00 [facility] [place] disease [place] disease Disease Active 03-31 00:00: 00 [facility] BV (bacterial vaginosis) BV (bacterial vaginosis) Disease Active 03-13 00:00: 00 [facility] Hydrosalpi nx Hydrosalpi nx Disease Active 03-09 00:00: 00 [facility] Cyst of maxillary sinus Cyst of maxillary sinus Disease Active 03-09 00:00: 00 [facility] Female infertilit y of unspecifie d origin Female infertilit y of unspecifie d origin Disease Active 03-09 00:00: 00 [facility] Irritable bowel syndrome with both constipati on and diarrhea Irritable bowel syndrome with both constipati on and diarrhea Disease Active 03-09 00:00: 00 [facility] Fibromyalg ia Fibromyalg ia Disease Active 2015-02 00:00: 00 [facility] Pain in joint, multiple sites Pain in joint, multiple sites Disease Active 2015-02 00:00: 00 [facility] History of adrenal insufficie ncy History of adrenal insufficie ncy Disease Active 2015-02 00:00: 00 [facility] Chronic fatigue Chronic fatigue Disease Active 2015-02 00:00: 00 [facility] Morbid obesity with body mass index of 40.0-49.9 Morbid obesity with body mass index of 40.0-49.9 Disease Active 2015-02 00:00: 00 [facility] 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 Disease Active 2015-02 00:00: 00 [facility] 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 [facility] Migraine without status migrainosu s, not intractabl e, unspecifie d migraine type Migraine without status migrainosu s, not intractabl e, unspecifie d migraine type Problem Active [facility] Obstructiv e sleep apnea Obstructiv e sleep apnea Problem Active [facility] Gallstone Gallstone Problem Active [facility] Fibromyalg ia Fibromyalg ia Problem Active [facility] Chronic pain syndrome Chronic pain syndrome Problem Active [facility] Muscle weakness Muscle weakness Problem Active [facility] Insomnia, unspecifie d type Insomnia, unspecifie d type Problem Active [facility] Bipolar disorder Bipolar disorder Problem Active [facility] Hypothyroi dism, unspecifie d type Hypothyroi dism, unspecifie d type Problem Active [facility] Depression with anxiety Depression with anxiety Problem Active [facility] Foot pain Foot pain Problem Active [facility] CPAP (continuou s positive airway pressure) dependence CPAP (continuou s positive airway pressure) dependence Problem Active [facility] Diverticul osis of intestine without bleeding, unspecifie d intestinal tract location Diverticul osis of intestine without bleeding, unspecifie d intestinal tract location Problem Active [facility] Abdominal pain, unspecifie d abdominal location Abdominal pain, unspecifie d abdominal location Problem Active [facility] Irritable bowel syndrome with constipati on Irritable bowel syndrome with constipati on Problem Active [facility] Gastroesop hageal reflux disease, esophagiti s presence not specified Gastroesop hageal reflux disease, esophagiti s presence not specified Problem Active [facility] Allergies, Adverse Reactions, Alerts Allergy Name Allergy Type Status Severity Reaction(s) Onset Date Inactive Date Treating Clinician Comments Source LATEX DRUG INGREDI Active High ITCHING 2015-02 00:00: 00 [facility] Latex Propensi ty to adverse reaction s to drug Active Itching 2015-02 0 00:00: 00 [facility] Social History Social Habit Start Date Stop Date Quantity Comments Source [facility] Alcohol intake 2023-03-19 00:00:00 2023-03-19 00:00:00 0 /d [facility] History of Social function 2022-08-20 00:00:00 2022-08-20 00:00:00 [facility] Exposure to SARS-CoV-2 (event) 2022-07-23 00:00:00 2022-08-02 07:35:00 Not sure [facility] Cigarettes smoked current (pack per day) - Reported 2022-08-02 00:00:00 2022-08-02 00:00:00 [facility] Tobacco use and exposure 2022-08-02 00:00:00 2022-08-02 00:00:00 Smokeless tobacco non-user [facility] Tobacco Comment 2022-08-02 00:00:00 2022-08-02 00:00:00 Pt smokes 1 pack a day total of 20 cigarettes daily [facility] History of tobacco use 2005-02-25 00:00:00 Cigarette Smoker [facility] Sex Assigned At 1980 00:00:00 1980 00:00:00 [facility] Smoking Status Start Date Stop Date Source Smokes tobacco daily 2022-08-02 00:00:00 [facility] Medications Ordered Medication Name Filled Medication Name Start Date Stop Date Current Medication? Ordering Clinician Indication Dosage Frequency Signature (SIG) Comments Components Source levothyroxi ne 125 mcg tablet 05-26 00:00: 00 Yes [id number] 125ug Take 1 tablet by mouth every morning. [facility] hydrocortis one 10 mg tablet 03-04 00:00: 00 Yes [id number] Take 1 tablet in the morning and half tablet at night [facility] hydrocortis one sod succ (SOLU-AMY F) 100 mg injection 03-04 00:00: 00 Yes [id number] 100mg 2 mL by Intramuscu lar route as needed (for when patient is unconsciou s). [facility] phentermine 37.5 mg capsule 03-04 00:00: 00 Yes [id number] 104 37.5mg Take 1 capsule by mouth every morning. [facility] topiramate 25 mg tablet 03-04 00:00: 00 Yes [id number] 50mg Take 2 tablets by mouth in the morning. [facility] Syringe, Disposable, 3 mL Syrg 03-04 00:00: 00 Yes [id number] Use as directed once [facility] Needle, Disp, 21 G 21 gauge x 1 1/2" Ndle 03-04 00:00: 00 Yes [id number] Use as directed [facility] topiramate 25 mg tablet 2022-02 2 00:00: 00 03-04 00:00 :00 No [id number] 50mg Take 2 tablets by mouth in the morning. [facility] triamcinolo ne acetonide 0.1 % ointment 2022-02 00:00: 00 Yes [id number] Apply to area(s) 2 (two) times daily. [facility] LEVOTHYROXI NE 125 mcg tablet 2022-02 00:00: 00 05-25 00:00 :00 No [id number] 125ug TAKE 1 TABLET BY MOUTH EVERY DAY IN THE MORNING [facility] rOPINIRole 1 mg tablet 2022-02 0 16:29: 29 11-29 00:00 :00 No 1mg Take 1 tablet by mouth at bedtime. [facility] proMETHazin e 25 mg tablet 2022-02 16:29: 16 11-29 00:00 :00 No Take by mouth as needed. [facility] FENTanyl 25 mcg/hr patch 2022-02 16:29: 00 11-29 00:00 :00 No 1{patch } Apply 1 Patch to skin every 72 (seventy-t wo) hours. [facility] phentermine 37.5 mg capsule 10-22 00:00: 00 03-04 00:00 :00 No [id number] 104 37.5mg Take 1 capsule by mouth every morning. [facility] topiramate 25 mg tablet 10-22 00:00: 00 01-26 00:00 :00 No [id number] 50mg Take 2 tablets by mouth in the morning. [facility] levothyroxi ne 125 mcg tablet 10-15 00:00: 00 12-02 00:00 :00 No [id number] 125ug Take 1 tablet by mouth every morning. [facility] hydrocortis one sod succ (CORTEF) injection 100 mg 09-17 08:45: 00 09-17 08:04 :00 No 100mg 100 mg, Intravenou s, ONCE, 1 dose, On Sat09/17/22 at 0345, 2 mL [facility] ondansetron (ZOFRAN (PF)) injection 4 mg 09-17 07:54: 00 09-17 07:55 :00 No 4mg 4 mg, Slow IV Push, ONCE, 1 dose, On Sat09/17/22 at 0300, MARSHALL [facility] dicyclomine (BENTYL) injection 20 mg 09-17 07:45: 00 09-17 07:47 :00 No 20mg 20 mg, Intramuscu lar, ONCE NOW, 1 dose, On Sat09/17/22 at 0245, Routine [facility] alum-mag hydroxide-s imeth (MAALOX PLUS / MAG-AL PLUS) 200-200-20 mg/5 mL suspension 30 mL 09-17 07:00: 00 09-17 07:52 :00 No 30mL 30 mL, Oral, ONCE, 1 dose, On Sat09/17/22 at 0200, MARSHALL [facility] morpHINE (2 mg/mL) injection 2 mg 09-17 07:00: 00 09-17 07:45 :00 No 2mg 2 mg, Slow IV Push, ONCE, 1 dose, On Sat09/17/22 at 0200, STAT [facility] NaCl 0.9% (NS) bolus infusion 500 mL 09-17 06:00: 00 09-17 07:55 :00 No 500mL at 999 mL/hr, 500 mL, IV Infusion, ONCE, 1 dose, On Sat09/17/22 at 0100, STAT [facility] iopamidol (ISOVUE 370-500 mL) injection 75 mL 09-17 06:00: 00 09-17 05:11 :00 No [id number] 75mL 75 mL, Intravenou s, ONCE, 1 dose, On Sat09/17/22 at 0100, Routine [facility] ketorolac (TORADOL) injection 30 mg 09-17 04:45: 00 09-17 04:47 :00 No 30mg 30 mg, Slow IV Push, ONCE, 1 dose, On Sat09/16/22 at 2345, Routine [facility] diazePAM (VALIUM) injection 5 mg 09-17 03:45: 00 09-17 04:45 :00 No 5mg 5 mg, Slow IV Push, ONCE, 1 dose, On Sat09/16/22 at 2245, STAT [facility] FENTanyl 25 mcg/hr patch 09-14 09:30: 16 Yes 1{patch } Apply 1 Patch to skin every 72 (seventy-t wo) hours. [facility] proMETHazin e 25 mg tablet 09-14 09:30: 16 Yes Take by mouth as needed. [facility] WEGOVY 0.25 mg/0.5 mL PnIj SC injection 09-06 00:00: 00 10-22 00:00 :00 No [id number] .25mg INJECT 0.25 MG UNDER THE SKIN WEEKLY. [facility] levothyroxi ne 125 mcg tablet 09-05 00:00: 00 10-15 00:00 :00 No [id number] 125ug Take 1 tablet by mouth every morning. [facility] topiramate 25 mg tablet 09-04 16:05: 41 09-04 00:00 :00 No Take by mouth daily. [facility] rizatriptan (MAXALT) 10 mg tablet 09-04 00:00: 00 Yes [id number] 10mg Take 1 tablet by mouth as needed for Migraine. May repeat in 2 hours if needed [facility] topiramate 25 mg tablet 09-04 00:00: 00 10-22 00:00 :00 No [id number] 50mg Take 2 tablets by mouth in the morning. [facility] semaglutide , weight loss, (WEGOVY) 0.25 mg/0.5 mL PnIj SC injection 09-04 00:00: 00 09-06 00:00 :00 No [id number] .25mg inject 0.25 mg under the skin weekly. [facility] proMETHazin e 25 mg tablet 08-30 16:31: 42 Yes Take by mouth as needed. [facility] HYDROCORTIS ONE 10 mg tablet 08-25 00:00: 00 03-04 00:00 :00 No [id number] TAKE 1 TABLET BY MOUTH TWICE A DAY [facility] lactated ringers IV infusion 1,000 mL 08-20 14:45: 00 08-20 18:31 :06 No 1000mL at 75 mL/hr, 1,000 mL, IV Infusion, CONTINUOUS , Starting on Sat08/20/22 at 0945, Until Sat08/20/22 at 1331, Routine, PACU [facility] HYDROcodone -acetaminop hen (NORCO) 10-325 mg tablet 1 tablet 08-20 14:42: 27 08-20 15:34 :00 No 1{tbl} 1 tablet, Oral, PRN, 1 dose, Starting on Sat08/20/22 at 0942, Until Discontinu ed, Routine, Pain (scale 7-10), DSU Recovery [facility] HYDROcodone -acetaminop hen (NORCO 5) 5-325 mg tablet 1 tablet 08-20 14:42: 27 08-20 18:31 :06 No 1{tbl} 1 tablet, Oral, PRN, 1 dose, Starting on Sat08/20/22 at 0942, Until Sat08/20/22 at 1331, Routine, Pain (scale 4-6), DSU Recovery [facility] ibuprofen (IBU) tablet 800 mg 08-20 14:42: 27 08-20 18:31 :06 No 800mg 800 mg, Oral, PRN, 1 dose, Starting on Sat08/20/22 at 0942, Until Sat08/20/22 at 1331, Routine, Pain (scale 1-3), DSU Recovery [facility] FENTanyl PF (SUBLIMAZE (PF)) injection 25 mcg 08-20 14:42: 14 08-20 15:23 :00 No 25ug 25 mcg, Slow IV Push, Q5MIN PRN, 4 doses, Starting on Sat08/20/22 at 0942, Until Sat08/20/22 at 1023, Routine, Pain (scale 4-6), PACU [facility] ondansetron (ZOFRAN (PF)) injection 4 mg 08-20 14:42: 14 08-20 18:31 :06 No 4mg 4 mg, Slow IV Push, PRN, 1 dose, Starting on Sat08/20/22 at 0942, Until Sat08/20/22 at 1331, Routine, Nausea and Vomiting (N/V), PACU [facility] bupivacaine (preserv free) 0.5% (SENSORCAIN E MPF) 0.5 % (5 mg/mL) injection 08-20 13:00: 00 08-20 14:46 :23 No PRN, Starting on Sat08/20/22 at 0800, Until Sat08/20/22 at 0946, Routine, Intra-op [facility] sodium chloride 0.9 % irrigation solution 08-20 13:00: 00 08-20 14:46 :23 No PRN, Starting on Sat08/20/22 at 0800, Until Sat08/20/22 at 0946, Intra-op [facility] lactated ringers IV infusion 1,000 mL 08-20 12:15: 00 08-20 18:31 :06 No 1000mL at 100 mL/hr, 1,000 mL, IV Infusion, CONTINUOUS , Starting on Sat08/20/22 at 0715, Until Sat08/20/22 at 1331, Routine, PACU [facility] CITALOPRAM HYDROBROMID E (CELEXA ORAL) 08-20 11:26: 02 Yes 40mg Take 40 mg by mouth in the morning. [facility] FENTanyl 25 mcg/hr patch 08-20 11:26: 02 Yes 1{patch } Apply 1 Patch to skin every 72 (seventy-t wo) hours. [facility] rOPINIRole 1 mg tablet 08-20 11:26: 02 Yes 1mg Take 1 tablet by mouth at bedtime. [facility] topiramate 25 mg tablet 08-20 11:26: 02 Yes Take by mouth daily. [facility] proMETHazin e 25 mg tablet 08-20 11:26: 02 Yes Take by mouth as needed. [facility] traMADoL 50 mg tablet 08-20 11:25: 59 08-20 00:00 :00 No Take by mouth as needed. [facility] OXCARBAZEPI NE (TRILEPTAL ORAL) 08-20 09:34: 50 08-20 00:00 :00 No 300mg Take 300 mg by mouth in the morning and 300 mg in the evening. [facility] ibuprofen 800 mg tablet 08-20 00:00: 00 11-29 00:00 :00 No [id number] 800mg Take 1 tablet by mouth every 6 (six) hours as needed for Pain (scale 1-3). [facility] HYDROcodone -acetaminop hen (NORCO) 7.5-325 mg per tablet 08-20 00:00: 00 08-28 04:59 :00 No [id number] 1{tbl} Take 1 tablet by mouth every 6 (six) hours as needed for Pain for up to 7 days. Indication s: acute pain [facility] HYDROcodone -acetaminop hen 5-325 mg tablet 08-20 00:00: 00 08-20 00:00 :00 No [id number] 1{tbl} Take 1 tablet by mouth every 6 (six) hours as needed for Pain (scale 4-6) or Pain (scale 7-10). Indication s: acute pain [facility] levothyroxi ne 150 mcg tablet 08-17 00:00: 00 09-05 00:00 :00 No [id number] 150ug Take 1 tablet by mouth every morning. Please wait for 30 minutes to an hour before you eat or drink anything. [facility] OXCARBAZEPI NE (TRILEPTAL ORAL) 08-09 10:09: 34 Yes 300mg Take 300 mg by mouth in the morning and 300 mg in the evening. [facility] topiramate 25 mg tablet 08-09 10:09: 34 Yes Take by mouth daily. [facility] proMETHazin e 25 mg tablet 08-09 10:09: 34 Yes Take by mouth as needed. [facility] traMADoL 50 mg tablet 08-09 10:09: 34 Yes Take by mouth as needed. [facility] CITALOPRAM HYDROBROMID E (CELEXA ORAL) 08-09 09:52: 09 Yes 40mg Take 40 mg by mouth in the morning. [facility] FENTanyl 25 mcg/hr patch 08-09 09:52: 09 Yes 1{patch } Apply 1 Patch to skin every 72 (seventy-t wo) hours. [facility] rOPINIRole 1 mg tablet 08-09 09:52: 09 Yes 1mg Take 1 tablet by mouth at bedtime. [facility] ibuprofen 800 mg tablet 08-02 00:00: 00 08-20 00:00 :00 No [id number] 800mg Take 1 tablet by mouth every 8 (eight) hours as needed for Pain (scale 4-6). [facility] ketorolac (TORADOL) injection 30 mg 07-29 04:00: 00 07-29 02:59 :00 No 30mg 30 mg, Slow IV Push, ONCE, 1 dose, On 07/28/22 at 2300, Routine [facility] morpHINE (4 mg/mL) injection 4 mg 07-29 02:00: 00 07-29 01:53 :00 No 4mg 4 mg, Slow IV Push, ONCE, 1 dose, On 07/28/22 at 2100, STAT [facility] morpHINE (4 mg/mL) injection 4 mg 07-29 00:30: 00 07-29 00:17 :00 No 4mg 4 mg, Slow IV Push, ONCE, 1 dose, On 07/28/22 at 1930, STAT [facility] iopamidol (ISOVUE 370-500 mL) injection 90 mL 07-29 00:00: 00 07-29 00:00 :00 No [id number] 90mL 90 mL, Intravenou s, ONCE, 1 dose, On 07/28/22 at 1900, Routine [facility] ondansetron (ZOFRAN (PF)) injection 4 mg 07-28 22:15: 00 07-28 22:22 :00 No 4mg 4 mg, Slow IV Push, ONCE, 1 dose, On 07/28/22 at 1715, MARSHALL [facility] morpHINE (4 mg/mL) injection 4 mg 07-28 22:15: 00 07-28 22:27 :00 No 4mg 4 mg, Slow IV Push, ONCE, 1 dose, On 07/28/22 at 1715, STAT [facility] cefpodoxime 100 mg tablet 07-28 00:00: 00 08-05 04:59 :00 No [id number] 100mg Take 1 tablet by mouth in the morning and 1 tablet in the evening. Do all this for 7 days. [facility] LATUDA 20 mg tablet 07-27 00:00: 00 Yes Take by mouth at bedtime. [facility] TOPIRAMATE 25 mg tablet 07-25 00:00: 00 09-04 00:00 :00 No [id number] TAKE 1 TABLET BY MOUTH EVERY DAY IN THE MORNING [facility] atomoxetine 60 mg capsule 07-22 00:00: 00 Yes 60mg Take 1 capsule by mouth in the morning and 1 capsule in the evening. [facility] cloNIDine 0.1 mg tablet 07-20 00:00: 00 Yes Take by mouth as needed. [facility] HYDROcodone -acetaminop hen 10-325 mg tablet 14 00:00: 00 Yes 1{tbl} Take 1 tablet by mouth in the morning and 1 tablet in the evening. [facility] phentermine 37.5 mg capsule - 00:00: 00 08-20 00:00 :00 No [id number] 37.5mg Take 1 capsule by mouth every morning. [facility] levothyroxi ne 175 mcg tablet - 00:00: 00 08-17 00:00 :00 No [id number] 175ug Take 1 tablet by mouth every morning. TAKE 1 TABLET DAILY SATURDAY THROUGH SATURDAY, AND 1/2 TABLET ON SATURDAY [facility] topiramate 25 mg tablet - 00:00: 00 07-25 00:00 :00 No [id number] 25mg Take 1 tablet by mouth in the morning. [facility] phentermine 37.5 mg capsule 2021-02 0-26 00:00: 00 02-28 00:00 :00 No [id number] 37.5mg Take 1 capsule by mouth every morning. [facility] topiramate 25 mg tablet 2021-02 0-03 00:00: 02-28 00:00 :00 No [id number] 25mg Take 1 tablet by mouth in the morning. [facility] semaglutide , weight loss, (WEGOVY) 0.25 mg/0.5 mL PnIj SC injection 2021-02 0-03 00:00: 00 12-20 00:00 :00 No [id number] .25mg inject 0.25 mg under the skin weekly. [facility] topiramate 25 mg tablet 9-30 00:00: 00 11-27 00:00 :00 No [id number] TAKE 1 TABLET BY MOUTH EVERY DAY [facility] PHENTERMINE 37.5 mg capsule 8-28 00:00: 00 11-27 00:00 :00 No [id number] TAKE 1 CAPSULE BY MOUTH EVERY DAY IN THE MORNING [facility] levothyroxi ne 175 mcg tablet 7-30 00:00: 00 02-28 00:00 :00 No [id number] TAKE 1 TABLET DAILY SATURDAY THROUGH SATURDAY, AND 1/2 TABLET ON SATURDAY. [facility] hydrocortis one sod succ (SOLU-AMY F) 100 mg injection 6-29 00:00: 00 03-04 00:00 :00 No [id number] 100mg 2 mL by Intramuscu lar route as needed (for when patient is unconsciou s). [facility] hydrocortis one 10 mg tablet 6-29 00:00: 00 08-25 00:00 :00 No [id number] 10mg Take 1 tablet by mouth 2 (two) times daily. [facility] topiramate 25 mg tablet 6-10 00:00: 00 11-24 00:00 :00 No [id number] 25mg Take 1 tablet by mouth daily. [facility] PHENTERMINE 37.5 mg capsule 6-07 00:00: 00 10-22 00:00 :00 No [id number] TAKE 1 CAPSULE BY MOUTH EVERY DAY IN THE MORNING [facility] LEVOTHYROXI NE 175 mcg tablet 05-17 00:00: 00 09-23 00:00 :00 No [id number] TAKE 1 TABLET DAILY SATURDAY THROUGH SATURDAY, AND 1/2 TABLET ON SATURDAY. [facility] norethindro ne 0.35 mg tablet 2020-02 00:00: 00 08-20 00:00 :00 No [id number] 1{tbl} Take 1 tablet by mouth daily. [facility] CITALOPRAM HYDROBROMID E (CELEXA ORAL) 2020-02 13:09: 42 Yes Take by mouth daily. [facility] FENTanyl 25 mcg/hr patch 2020-02 13:09: 42 Yes 1{patch } Apply 1 Patch to skin every 72 (seventy-t wo) hours. [facility] rOPINIRole 1 mg tablet 2020-02 13:09: 42 Yes 1mg Take 1 mg by mouth at bedtime. [facility] Movantik Movantik 04-22 00:00: 00 08-20 00:00 :00 No Cinda Millender 1 tablet in the morning [facility] Pantoprazol e Sodium Pantoprazol e Sodium 10-25 00:00: 00 Yes Cinda Millender 1 tablet [facility] Chlordiazep oxide-Clidi nium Chlordiazep oxide-Clidi nium 10-25 00:00: 00 08-20 00:00 :00 No Cinda Millender 1 capsule [facility] ondansetron 4 mg disintegrat ing tablet 2016-02 00:00: 00 08-20 00:00 :00 No [facility] LYRICA 100 mg capsule 2015-02 00:00: 00 03-04 00:00 :00 No [facility] SAVELLA 50 mg tablet 2015-02 00:00: 00 03-04 00:00 :00 No 25mg Take 0.5 tablets by mouth in the morning and 0.5 tablets in the evening. [facility] Neurontin Neurontin Yes Cinda Millender 1 capsule [facility] Amitriptyli ne HCl Amitriptyli ne HCl Yes Cinda Millender 1 tablet [facility] Topamax Topamax Yes Cinda Millender 1 tablet [facility] Zofran Zofran Yes Cinda Millender 1 tablet [facility] Ultram Ultram Yes Cinda Millender 1 tablet as needed [facility] Lyrica Lyrica Yes Cinda Millender 1 capsule [facility] Robaxin Robaxin Yes Cinda Millender 1.5 tablets [facility] Trazodone HCl Trazodone HCl Yes Cinda Millender 1 tablet at bedtime as needed [facility] Protonix Protonix Yes Cinda Millender 1 tablet [facility] Savella Savella Yes Cinda Millender 1 tablet [facility] Synthroid Synthroid Yes Cinda Millender 1 tablet on an empty stomach in the morning [facility] Imitrex Imitrex Yes Cinda Millender 1 tablet as needed [facility] Citalopram Hydrobromid e Citalopram Hydrobromid e Yes Cinda Millender 1 tablet [facility] Clonazepam Clonazepam Yes Cinda Millender 1 tablet [facility] Cyclobenzap rine HCl Cyclobenzap rine HCl Yes Cinda Millender 1 tablet as needed [facility] Furosemide Furosemide Yes Cinda Millender 1 tablet as needed for leg swelling [facility] Effexor XR Effexor XR Yes Cinda Briceno 1 capsule with food [facility] Immunizations Ordered Immunization Name Filled Immunization Name Date Status Comments Source Pneumococcal 13 Conjugate, PCV13 (Prevnar 13) 2021-01-05 00:00:00 Completed [facility] TDAP 2021-01-05 00:00:00 Completed [facility] Influenza Virus Vaccine Quad IM, Preserv and ABX Free 6 MO-64 YRS 2021-01-05 00:00:00 Completed [facility] Pneumococcal 13 Conjugate, PCV13 (Prevnar 13) 2021-01-05 00:00:00 Completed [facility] TDAP 2021-01-05 00:00:00 Completed [facility] Influenza Virus Vaccine Quad IM, Preserv and ABX Free 6 MO-64 YRS 2021-01-05 00:00:00 Completed [facility] Pneumococcal 13 Conjugate, PCV13 (Prevnar 13) 2021-01-05 00:00:00 Completed [facility] TDAP 2021-01-05 00:00:00 Completed [facility] Influenza Virus Vaccine Quad IM, Preserv and ABX Free 6 MO-64 YRS 2021-01-05 00:00:00 Completed [facility] Pneumococcal 13 Conjugate, PCV13 (Prevnar 13) 2021-01-05 00:00:00 Completed [facility] TDAP 2021-01-05 00:00:00 Completed [facility] Influenza Virus Vaccine Quad IM, Preserv and ABX Free 6 MO-64 YRS 2021-01-05 00:00:00 Completed [facility] Pneumococcal 13 Conjugate, PCV13 (Prevnar 13) 2021-01-05 00:00:00 Completed [facility] TDAP 2021-01-05 00:00:00 Completed [facility] Influenza Virus Vaccine Quad IM, Preserv and ABX Free 6 MO-64 YRS 2021-01-05 00:00:00 Completed [facility] Pneumococcal 13 Conjugate, PCV13 (Prevnar 13) 2021-01-05 00:00:00 Completed [facility] TDAP 2021-01-05 00:00:00 Completed [facility] Influenza Virus Vaccine Quad IM, Preserv and ABX Free 6 MO-64 YRS 2021-01-05 00:00:00 Completed [facility] Pneumococcal 13 Conjugate, PCV13 (Prevnar 13) 2021-01-05 00:00:00 Completed [facility] TDAP 2021-01-05 00:00:00 Completed [facility] Influenza Virus Vaccine Quad IM, Preserv and ABX Free 6 MO-64 YRS 2021-01-05 00:00:00 Completed [facility] Pneumococcal 13 Conjugate, PCV13 (Prevnar 13) 2021-01-05 00:00:00 Completed [facility] TDAP 2021-01-05 00:00:00 Completed [facility] Influenza Virus Vaccine Quad IM, Preserv and ABX Free 6 MO-64 YRS 2021-01-05 00:00:00 Completed [facility] Pneumococcal 13 Conjugate, PCV13 (Prevnar 13) 2021-01-05 00:00:00 Completed [facility] TDAP 2021-01-05 00:00:00 Completed [facility] Influenza Virus Vaccine Quad IM, Preserv and ABX Free 6 MO-64 YRS 2021-01-05 00:00:00 Completed [facility] Pneumococcal 13 Conjugate, PCV13 (Prevnar 13) 2021-01-05 00:00:00 Completed [facility] TDAP 2021-01-05 00:00:00 Completed [facility] Influenza Virus Vaccine Quad IM, Preserv and ABX Free 6 MO-64 YRS 2021-01-05 00:00:00 Completed [facility] Pneumococcal 13 Conjugate, PCV13 (Prevnar 13) 2021-01-05 00:00:00 Completed [facility] TDAP 2021-01-05 00:00:00 Completed [facility] Influenza Virus Vaccine Quad IM, Preserv and ABX Free 6 MO-64 YRS 2021-01-05 00:00:00 Completed [facility] Pneumococcal 13 Conjugate, PCV13 (Prevnar 13) 2021-01-05 00:00:00 Completed [facility] TDAP 2021-01-05 00:00:00 Completed [facility] Influenza Virus Vaccine Quad IM, Preserv and ABX Free 6 MO-64 YRS 2021-01-05 00:00:00 Completed [facility] Pneumococcal 13 Conjugate, PCV13 (Prevnar 13) 2021-01-05 00:00:00 Completed [facility] TDAP 2021-01-05 00:00:00 Completed [facility] Influenza Virus Vaccine Quad IM, Preserv and ABX Free 6 MO-64 YRS 2021-01-05 00:00:00 Completed [facility] Pneumococcal 13 Conjugate, PCV13 (Prevnar 13) 2021-01-05 00:00:00 Completed [facility] TDAP 2021-01-05 00:00:00 Completed [facility] Influenza Virus Vaccine Quad IM, Preserv and ABX Free 6 MO-64 YRS 2021-01-05 00:00:00 Completed [facility] Pneumococcal 13 Conjugate, PCV13 (Prevnar 13) 2021-01-05 00:00:00 Completed [facility] TDAP 2021-01-05 00:00:00 Completed [facility] Influenza Virus Vaccine Quad IM, Preserv and ABX Free 6 MO-64 YRS 2021-01-05 00:00:00 Completed [facility] Pneumococcal 13 Conjugate, PCV13 (Prevnar 13) 2021-01-05 00:00:00 Completed [facility] TDAP 2021-01-05 00:00:00 Completed [facility] Influenza Virus Vaccine Quad IM, Preserv and ABX Free 6 MO-64 YRS 2021-01-05 00:00:00 Completed [facility] Pneumococcal 13 Conjugate, PCV13 (Prevnar 13) 2021-01-05 00:00:00 Completed [facility] TDAP 2021-01-05 00:00:00 Completed [facility] Influenza Virus Vaccine Quad IM, Preserv and ABX Free 6 MO-64 YRS 2021-01-05 00:00:00 Completed [facility] Pneumococcal 13 Conjugate, PCV13 (Prevnar 13) 2021-01-05 00:00:00 Completed [facility] TDAP 2021-01-05 00:00:00 Completed [facility] Influenza Virus Vaccine Quad IM, Preserv and ABX Free 6 MO-64 YRS 2021-01-05 00:00:00 Completed [facility] Pneumococcal 13 Conjugate, PCV13 (Prevnar 13) 2021-01-05 00:00:00 Completed [facility] TDAP 2021-01-05 00:00:00 Completed [facility] Influenza Virus Vaccine Quad IM, Preserv and ABX Free 6 MO-64 YRS 2021-01-05 00:00:00 Completed [facility] Pneumococcal 13 Conjugate, PCV13 (Prevnar 13) 2021-01-05 00:00:00 Completed [facility] TDAP 2021-01-05 00:00:00 Completed [facility] Influenza Virus Vaccine Quad IM, Preserv and ABX Free 6 MO-64 YRS 2021-01-05 00:00:00 Completed [facility] Pneumococcal 13 Conjugate, PCV13 (Prevnar 13) 2021-01-05 00:00:00 Completed [facility] TDAP 2021-01-05 00:00:00 Completed [facility] Influenza Virus Vaccine Quad IM, Preserv and ABX Free 6 MO-64 YRS 2021-01-05 00:00:00 Completed [facility] Pneumococcal 13 Conjugate, PCV13 (Prevnar 13) 2021-01-05 00:00:00 Completed [facility] TDAP 2021-01-05 00:00:00 Completed [facility] Influenza Virus Vaccine Quad IM, Preserv and ABX Free 6 MO-64 YRS 2021-01-05 00:00:00 Completed [facility] Pneumococcal 13 Conjugate, PCV13 (Prevnar 13) 2021-01-05 00:00:00 Completed [facility] TDAP 2021-01-05 00:00:00 Completed [facility] Influenza Virus Vaccine Quad IM, Preserv and ABX Free 6 MO-64 YRS 2021-01-05 00:00:00 Completed [facility] Pneumococcal 13 Conjugate, PCV13 (Prevnar 13) 2021-01-05 00:00:00 Completed [facility] TDAP 2021-01-05 00:00:00 Completed [facility] Influenza Virus Vaccine Quad IM, Preserv and ABX Free 6 MO-64 YRS 2021-01-05 00:00:00 Completed [facility] Pneumococcal 13 Conjugate, PCV13 (Prevnar 13) 2021-01-05 00:00:00 Completed [facility] TDAP 2021-01-05 00:00:00 Completed [facility] Influenza Virus Vaccine Quad IM, Preserv and ABX Free 6 MO-64 YRS 2021-01-05 00:00:00 Completed [facility] Pneumococcal 13 Conjugate, PCV13 (Prevnar 13) 2021-01-05 00:00:00 Completed [facility] TDAP 2021-01-05 00:00:00 Completed [facility] Influenza Virus Vaccine Quad IM, Preserv and ABX Free 6 MO-64 YRS 2021-01-05 00:00:00 Completed [facility] Pneumococcal 13 Conjugate, PCV13 (Prevnar 13) 2021-01-05 00:00:00 Completed [facility] TDAP 2021-01-05 00:00:00 Completed [facility] Influenza Virus Vaccine Quad IM, Preserv and ABX Free 6 MO-64 YRS 2021-01-05 00:00:00 Completed [facility] Pneumococcal 13 Conjugate, PCV13 (Prevnar 13) 2021-01-05 00:00:00 Completed [facility] TDAP 2021-01-05 00:00:00 Completed [facility] Influenza Virus Vaccine Quad IM, Preserv and ABX Free 6 MO-64 YRS 2021-01-05 00:00:00 Completed [facility] Pneumococcal 13 Conjugate, PCV13 (Prevnar 13) 2021-01-05 00:00:00 Completed [facility] TDAP 2021-01-05 00:00:00 Completed [facility] Influenza Virus Vaccine Quad IM, Preserv and ABX Free 6 MO-64 YRS 2021-01-05 00:00:00 Completed [facility] Pneumococcal 13 Conjugate, PCV13 (Prevnar 13) 2021-01-05 00:00:00 Completed [facility] TDAP 2021-01-05 00:00:00 Completed [facility] Influenza Virus Vaccine Quad IM, Preserv and ABX Free 6 MO-64 YRS 2021-01-05 00:00:00 Completed [facility] Pneumococcal 13 Conjugate, PCV13 (Prevnar 13) 2021-01-05 00:00:00 Completed [facility] TDAP 2021-01-05 00:00:00 Completed [facility] Influenza Virus Vaccine Quad IM, Preserv and ABX Free 6 MO-64 YRS 2021-01-05 00:00:00 Completed [facility] Pneumococcal 13 Conjugate, PCV13 (Prevnar 13) 2021-01-05 00:00:00 Completed [facility] TDAP 2021-01-05 00:00:00 Completed [facility] Influenza Virus Vaccine Quad IM, Preserv and ABX Free 6 MO-64 YRS 2021-01-05 00:00:00 Completed [facility] Pneumococcal 13 Conjugate, PCV13 (Prevnar 13) 2021-01-05 00:00:00 Completed [facility] TDAP 2021-01-05 00:00:00 Completed [facility] Influenza Virus Vaccine Quad IM, Preserv and ABX Free 6 MO-64 YRS 2021-01-05 00:00:00 Completed [facility] Pneumococcal 13 Conjugate, PCV13 (Prevnar 13) 2021-01-05 00:00:00 Completed [facility] TDAP 2021-01-05 00:00:00 Completed [facility] Influenza Virus Vaccine Quad IM, Preserv and ABX Free 6 MO-64 YRS 2021-01-05 00:00:00 Completed [facility] Pneumococcal 13 Conjugate, PCV13 (Prevnar 13) 2021-01-05 00:00:00 Completed [facility] TDAP 2021-01-05 00:00:00 Completed [facility] Influenza Virus Vaccine Quad IM, Preserv and ABX Free 6 MO-64 YRS 2021-01-05 00:00:00 Completed [facility] Pneumococcal 13 Conjugate, PCV13 (Prevnar 13) 2021-01-05 00:00:00 Completed [facility] TDAP 2021-01-05 00:00:00 Completed [facility] Influenza Virus Vaccine Quad IM, Preserv and ABX Free 6 MO-64 YRS 2021-01-05 00:00:00 Completed [facility] Pneumococcal 13 Conjugate, PCV13 (Prevnar 13) 2021-01-05 00:00:00 Completed [facility] TDAP 2021-01-05 00:00:00 Completed [facility] Influenza Virus Vaccine Quad IM, Preserv and ABX Free 6 MO-64 YRS 2021-01-05 00:00:00 Completed [facility] Pneumococcal 13 Conjugate, PCV13 (Prevnar 13) 2021-01-05 00:00:00 Completed [facility] TDAP 2021-01-05 00:00:00 Completed [facility] Influenza Virus Vaccine Quad IM, Preserv and ABX Free 6 MO-64 YRS 2021-01-05 00:00:00 Completed [facility] Pneumococcal 13 Conjugate, PCV13 (Prevnar 13) 2021-01-05 00:00:00 Completed [facility] TDAP 2021-01-05 00:00:00 Completed [facility] Influenza Virus Vaccine Quad IM, Preserv and ABX Free 6 MO-64 YRS 2021-01-05 00:00:00 Completed [facility] Pneumococcal 13 Conjugate, PCV13 (Prevnar 13) 2021-01-05 00:00:00 Completed [facility] TDAP 2021-01-05 00:00:00 Completed [facility] Influenza Virus Vaccine Quad IM, Preserv and ABX Free 6 MO-64 YRS 2021-01-05 00:00:00 Completed [facility] Pneumococcal 13 Conjugate, PCV13 (Prevnar 13) 2021-01-05 00:00:00 Completed [facility] TDAP 2021-01-05 00:00:00 Completed [facility] Influenza Virus Vaccine Quad IM, Preserv and ABX Free 6 MO-64 YRS 2021-01-05 00:00:00 Completed [facility] Pneumococcal 13 Conjugate, PCV13 (Prevnar 13) 2021-01-05 00:00:00 Completed [facility] TDAP 2021-01-05 00:00:00 Completed [facility] Influenza Virus Vaccine Quad IM, Preserv and ABX Free 6 MO-64 YRS 2021-01-05 00:00:00 Completed [facility] Pneumococcal 13 Conjugate, PCV13 (Prevnar 13) 2021-01-05 00:00:00 Completed [facility] TDAP 2021-01-05 00:00:00 Completed [facility] Influenza Virus Vaccine Quad IM, Preserv and ABX Free 6 MO-64 YRS 2021-01-05 00:00:00 Completed [facility] Pneumococcal 13 Conjugate, PCV13 (Prevnar 13) 2021-01-05 00:00:00 Completed [facility] TDAP 2021-01-05 00:00:00 Completed [facility] Influenza Virus Vaccine Quad IM, Preserv and ABX Free 6 MO-64 YRS 2021-01-05 00:00:00 Completed [facility] Pneumococcal 13 Conjugate, PCV13 (Prevnar 13) 2021-01-05 00:00:00 Completed [facility] TDAP 2021-01-05 00:00:00 Completed [facility] Influenza Virus Vaccine Quad IM, Preserv and ABX Free 6 MO-64 YRS 2021-01-05 00:00:00 Completed [facility] Pneumococcal 13 Conjugate, PCV13 (Prevnar 13) 2021-01-05 00:00:00 Completed [facility] TDAP 2021-01-05 00:00:00 Completed [facility] Influenza Virus Vaccine Quad IM, Preserv and ABX Free 6 MO-64 YRS 2021-01-05 00:00:00 Completed [facility] Pneumococcal 13 Conjugate, PCV13 (Prevnar 13) 2021-01-05 00:00:00 Completed [facility] TDAP 2021-01-05 00:00:00 Completed [facility] Influenza Virus Vaccine Quad IM, Preserv and ABX Free 6 MO-64 YRS 2021-01-05 00:00:00 Completed [facility] Pneumococcal 13 Conjugate, PCV13 (Prevnar 13) 2021-01-05 00:00:00 Completed [facility] TDAP 2021-01-05 00:00:00 Completed [facility] Influenza Virus Vaccine Quad IM, Preserv and ABX Free 6 MO-64 YRS 2021-01-05 00:00:00 Completed [facility] Pneumococcal 13 Conjugate, PCV13 (Prevnar 13) 2021-01-05 00:00:00 Completed [facility] TDAP 2021-01-05 00:00:00 Completed [facility] Influenza Virus Vaccine Quad IM, Preserv and ABX Free 6 MO-64 YRS 2021-01-05 00:00:00 Completed [facility] Pneumococcal 13 Conjugate, PCV13 (Prevnar 13) 2021-01-05 00:00:00 Completed [facility] TDAP 2021-01-05 00:00:00 Completed [facility] Influenza Virus Vaccine Quad IM, Preserv and ABX Free 6 MO-64 YRS 2021-01-05 00:00:00 Completed [facility] Pneumococcal 13 Conjugate, PCV13 (Prevnar 13) 2021-01-05 00:00:00 Completed [facility] TDAP 2021-01-05 00:00:00 Completed [facility] Influenza Virus Vaccine Quad IM, Preserv and ABX Free 6 MO-64 YRS 2021-01-05 00:00:00 Completed [facility] Pneumococcal 13 Conjugate, PCV13 (Prevnar 13) 2021-01-05 00:00:00 Completed [facility] TDAP 2021-01-05 00:00:00 Completed [facility] Influenza Virus Vaccine Quad IM, Preserv and ABX Free 6 MO-64 YRS 2021-01-05 00:00:00 Completed [facility] Pneumococcal 13 Conjugate, PCV13 (Prevnar 13) 2021-01-05 00:00:00 Completed [facility] TDAP 2021-01-05 00:00:00 Completed [facility] Influenza Virus Vaccine Quad IM, Preserv and ABX Free 6 MO-64 YRS 2021-01-05 00:00:00 Completed [facility] Pneumococcal 13 Conjugate, PCV13 (Prevnar 13) 2021-01-05 00:00:00 Completed [facility] TDAP 2021-01-05 00:00:00 Completed [facility] Influenza Virus Vaccine Quad IM, Preserv and ABX Free 6 MO-64 YRS 2021-01-05 00:00:00 Completed [facility] Pneumococcal 13 Conjugate, PCV13 (Prevnar 13) 2021-01-05 00:00:00 Completed [facility] TDAP 2021-01-05 00:00:00 Completed [facility] Influenza Virus Vaccine Quad IM, Preserv and ABX Free 6 MO-64 YRS 2021-01-05 00:00:00 Completed [facility] Pneumococcal 13 Conjugate, PCV13 (Prevnar 13) 2021-01-05 00:00:00 Completed [facility] TDAP 2021-01-05 00:00:00 Completed [facility] Influenza Virus Vaccine Quad IM, Preserv and ABX Free 6 MO-64 YRS 2021-01-05 00:00:00 Completed [facility] Pneumococcal 13 Conjugate, PCV13 (Prevnar 13) 2021-01-05 00:00:00 Completed [facility] TDAP 2021-01-05 00:00:00 Completed [facility] Influenza Virus Vaccine Quad IM, Preserv and ABX Free 6 MO-64 YRS 2021-01-05 00:00:00 Completed [facility] Pneumococcal 13 Conjugate, PCV13 (Prevnar 13) 2021-01-05 00:00:00 Completed [facility] TDAP 2021-01-05 00:00:00 Completed [facility] Influenza Virus Vaccine Quad IM, Preserv and ABX Free 6 MO-64 YRS 2021-01-05 00:00:00 Completed [facility] Pneumococcal 13 Conjugate, PCV13 (Prevnar 13) 2021-01-05 00:00:00 Completed [facility] TDAP 2021-01-05 00:00:00 Completed [facility] Influenza Virus Vaccine Quad IM, Preserv and ABX Free 6 MO-64 YRS 2021-01-05 00:00:00 Completed [facility] Pneumococcal 13 Conjugate, PCV13 (Prevnar 13) 2021-01-05 00:00:00 Completed [facility] TDAP 2021-01-05 00:00:00 Completed [facility] Influenza Virus Vaccine Quad IM, Preserv and ABX Free 6 MO-64 YRS 2021-01-05 00:00:00 Completed [facility] Pneumococcal 13 Conjugate, PCV13 (Prevnar 13) 2021-01-05 00:00:00 Completed [facility] TDAP 2021-01-05 00:00:00 Completed [facility] Influenza Virus Vaccine Quad IM, Preserv and ABX Free 6 MO-64 YRS 2021-01-05 00:00:00 Completed [facility] Pneumococcal 13 Conjugate, PCV13 (Prevnar 13) 2021-01-05 00:00:00 Completed [facility] TDAP 2021-01-05 00:00:00 Completed [facility] Influenza Virus Vaccine Quad IM, Preserv and ABX Free 6 MO-64 YRS 2021-01-05 00:00:00 Completed [facility] Pneumococcal 13 Conjugate, PCV13 (Prevnar 13) 2021-01-05 00:00:00 Completed [facility] TDAP 2021-01-05 00:00:00 Completed [facility] Influenza Virus Vaccine Quad IM, Preserv and ABX Free 6 MO-64 YRS 2021-01-05 00:00:00 Completed [facility] SARS-COV-2 COVID-19 PFIZER VACCINE 2020-10-10 00:00:00 Completed [facility] SARS-COV-2 COVID-19 PFIZER VACCINE 2020-10-10 00:00:00 Completed [facility] SARS-COV-2 COVID-19 PFIZER VACCINE 2020-10-10 00:00:00 Completed [facility] SARS-COV-2 COVID-19 PFIZER VACCINE 2020-10-10 00:00:00 Completed [facility] SARS-COV-2 COVID-19 PFIZER VACCINE 2020-10-10 00:00:00 Completed [facility] SARS-COV-2 COVID-19 PFIZER VACCINE 2020-10-10 00:00:00 Completed [facility] SARS-COV-2 COVID-19 PFIZER VACCINE 2020-10-10 00:00:00 Completed [facility] SARS-COV-2 COVID-19 PFIZER VACCINE 2020-10-10 00:00:00 Completed [facility] SARS-COV-2 COVID-19 PFIZER VACCINE 2020-10-10 00:00:00 Completed [facility] SARS-COV-2 COVID-19 PFIZER VACCINE 2020-10-10 00:00:00 Completed [facility] SARS-COV-2 COVID-19 PFIZER VACCINE 2020-10-10 00:00:00 Completed [facility] SARS-COV-2 COVID-19 PFIZER VACCINE 2020-10-10 00:00:00 Completed [facility] SARS-COV-2 COVID-19 PFIZER VACCINE 2020-10-10 00:00:00 Completed [facility] SARS-COV-2 COVID-19 PFIZER VACCINE 2020-10-10 00:00:00 Completed [facility] SARS-COV-2 COVID-19 PFIZER VACCINE 2020-10-10 00:00:00 Completed [facility] SARS-COV-2 COVID-19 PFIZER VACCINE 2020-10-10 00:00:00 Completed [facility] SARS-COV-2 COVID-19 PFIZER VACCINE 2020-10-10 00:00:00 Completed [facility] SARS-COV-2 COVID-19 PFIZER VACCINE 2020-10-10 00:00:00 Completed [facility] SARS-COV-2 COVID-19 PFIZER VACCINE 2020-10-10 00:00:00 Completed [facility] SARS-COV-2 COVID-19 PFIZER VACCINE 2020-10-10 00:00:00 Completed [facility] SARS-COV-2 COVID-19 PFIZER VACCINE 2020-10-10 00:00:00 Completed [facility] SARS-COV-2 COVID-19 PFIZER VACCINE 2020-10-10 00:00:00 Completed [facility] SARS-COV-2 COVID-19 PFIZER VACCINE 2020-10-10 00:00:00 Completed [facility] SARS-COV-2 COVID-19 PFIZER VACCINE 2020-10-10 00:00:00 Completed [facility] SARS-COV-2 COVID-19 PFIZER VACCINE 2020-10-10 00:00:00 Completed [facility] SARS-COV-2 COVID-19 PFIZER VACCINE 2020-10-10 00:00:00 Completed [facility] SARS-COV-2 COVID-19 PFIZER VACCINE 2020-10-10 00:00:00 Completed [facility] SARS-COV-2 COVID-19 PFIZER VACCINE 2020-10-10 00:00:00 Completed [facility] SARS-COV-2 COVID-19 PFIZER VACCINE 2020-10-10 00:00:00 Completed [facility] SARS-COV-2 COVID-19 PFIZER VACCINE 2020-10-10 00:00:00 Completed [facility] SARS-COV-2 COVID-19 PFIZER VACCINE 2020-10-10 00:00:00 Completed [facility] SARS-COV-2 COVID-19 PFIZER VACCINE 2020-10-10 00:00:00 Completed [facility] SARS-COV-2 COVID-19 PFIZER VACCINE 2020-10-10 00:00:00 Completed [facility] SARS-COV-2 COVID-19 PFIZER VACCINE 2020-10-10 00:00:00 Completed [facility] SARS-COV-2 COVID-19 PFIZER VACCINE 2020-10-10 00:00:00 Completed [facility] SARS-COV-2 COVID-19 PFIZER VACCINE 2020-10-10 00:00:00 Completed [facility] SARS-COV-2 COVID-19 PFIZER VACCINE 2020-10-10 00:00:00 Completed [facility] SARS-COV-2 COVID-19 PFIZER VACCINE 2020-10-10 00:00:00 Completed [facility] SARS-COV-2 COVID-19 PFIZER VACCINE 2020-10-10 00:00:00 Completed [facility] SARS-COV-2 COVID-19 PFIZER VACCINE 2020-10-10 00:00:00 Completed [facility] SARS-COV-2 COVID-19 PFIZER VACCINE 2020-10-10 00:00:00 Completed [facility] SARS-COV-2 COVID-19 PFIZER VACCINE 2020-10-10 00:00:00 Completed [facility] SARS-COV-2 COVID-19 PFIZER VACCINE 2020-10-10 00:00:00 Completed [facility] SARS-COV-2 COVID-19 PFIZER VACCINE 2020-10-10 00:00:00 Completed [facility] SARS-COV-2 COVID-19 PFIZER VACCINE 2020-10-10 00:00:00 Completed [facility] SARS-COV-2 COVID-19 PFIZER VACCINE 2020-10-10 00:00:00 Completed [facility] SARS-COV-2 COVID-19 PFIZER VACCINE 2020-06-25 00:00:00 Completed [facility] SARS-COV-2 COVID-19 PFIZER VACCINE 2020-06-25 00:00:00 Completed [facility] SARS-COV-2 COVID-19 PFIZER VACCINE 2020-06-25 00:00:00 Completed [facility] SARS-COV-2 COVID-19 PFIZER VACCINE 2020-06-25 00:00:00 Completed [facility] SARS-COV-2 COVID-19 PFIZER VACCINE 2020-06-25 00:00:00 Completed [facility] SARS-COV-2 COVID-19 PFIZER VACCINE 2020-06-25 00:00:00 Completed [facility] SARS-COV-2 COVID-19 PFIZER VACCINE 2020-06-25 00:00:00 Completed [facility] SARS-COV-2 COVID-19 PFIZER VACCINE 2020-06-25 00:00:00 Completed [facility] SARS-COV-2 COVID-19 PFIZER VACCINE 2020-06-25 00:00:00 Completed [facility] SARS-COV-2 COVID-19 PFIZER VACCINE 2020-06-25 00:00:00 Completed [facility] SARS-COV-2 COVID-19 PFIZER VACCINE 2020-06-25 00:00:00 Completed [facility] SARS-COV-2 COVID-19 PFIZER VACCINE 2020-06-25 00:00:00 Completed [facility] SARS-COV-2 COVID-19 PFIZER VACCINE 2020-06-25 00:00:00 Completed [facility] SARS-COV-2 COVID-19 PFIZER VACCINE 2020-06-25 00:00:00 Completed [facility] SARS-COV-2 COVID-19 PFIZER VACCINE 2020-06-25 00:00:00 Completed [facility] SARS-COV-2 COVID-19 PFIZER VACCINE 2020-06-25 00:00:00 Completed [facility] SARS-COV-2 COVID-19 PFIZER VACCINE 2020-06-25 00:00:00 Completed [facility] SARS-COV-2 COVID-19 PFIZER VACCINE 2020-06-25 00:00:00 Completed [facility] SARS-COV-2 COVID-19 PFIZER VACCINE 2020-06-25 00:00:00 Completed [facility] SARS-COV-2 COVID-19 PFIZER VACCINE 2020-06-25 00:00:00 Completed [facility] SARS-COV-2 COVID-19 PFIZER VACCINE 2020-06-25 00:00:00 Completed [facility] SARS-COV-2 COVID-19 PFIZER VACCINE 2020-06-25 00:00:00 Completed [facility] SARS-COV-2 COVID-19 PFIZER VACCINE 2020-06-25 00:00:00 Completed [facility] SARS-COV-2 COVID-19 PFIZER VACCINE 2020-06-25 00:00:00 Completed [facility] SARS-COV-2 COVID-19 PFIZER VACCINE 2020-06-25 00:00:00 Completed [facility] SARS-COV-2 COVID-19 PFIZER VACCINE 2020-06-25 00:00:00 Completed [facility] SARS-COV-2 COVID-19 PFIZER VACCINE 2020-06-25 00:00:00 Completed [facility] SARS-COV-2 COVID-19 PFIZER VACCINE 2020-06-25 00:00:00 Completed [facility] SARS-COV-2 COVID-19 PFIZER VACCINE 2020-06-25 00:00:00 Completed [facility] SARS-COV-2 COVID-19 PFIZER VACCINE 2020-06-25 00:00:00 Completed [facility] SARS-COV-2 COVID-19 PFIZER VACCINE 2020-06-25 00:00:00 Completed [facility] SARS-COV-2 COVID-19 PFIZER VACCINE 2020-06-25 00:00:00 Completed [facility] SARS-COV-2 COVID-19 PFIZER VACCINE 2020-06-25 00:00:00 Completed [facility] SARS-COV-2 COVID-19 PFIZER VACCINE 2020-06-25 00:00:00 Completed [facility] SARS-COV-2 COVID-19 PFIZER VACCINE 2020-06-25 00:00:00 Completed [facility] SARS-COV-2 COVID-19 PFIZER VACCINE 2020-06-25 00:00:00 Completed [facility] SARS-COV-2 COVID-19 PFIZER VACCINE 2020-06-25 00:00:00 Completed [facility] SARS-COV-2 COVID-19 PFIZER VACCINE 2020-06-25 00:00:00 Completed [facility] SARS-COV-2 COVID-19 PFIZER VACCINE 2020-06-25 00:00:00 Completed [facility] SARS-COV-2 COVID-19 PFIZER VACCINE 2020-06-25 00:00:00 Completed [facility] SARS-COV-2 COVID-19 PFIZER VACCINE 2020-06-25 00:00:00 Completed [facility] SARS-COV-2 COVID-19 PFIZER VACCINE 2020-06-25 00:00:00 Completed [facility] SARS-COV-2 COVID-19 PFIZER VACCINE 2020-06-25 00:00:00 Completed [facility] SARS-COV-2 COVID-19 PFIZER VACCINE 2020-06-25 00:00:00 Completed [facility] SARS-COV-2 COVID-19 PFIZER VACCINE 2020-06-25 00:00:00 Completed [facility] SARS-COV-2 COVID-19 PFIZER VACCINE 2020-06-25 00:00:00 Completed [facility] SARS-COV-2 COVID-19 PFIZER VACCINE 2020-06-25 00:00:00 Completed [facility] SARS-COV-2 COVID-19 PFIZER VACCINE 2020-06-25 00:00:00 Completed [facility] SARS-COV-2 COVID-19 PFIZER VACCINE 2020-06-25 00:00:00 Completed [facility] SARS-COV-2 COVID-19 PFIZER VACCINE 2020-06-25 00:00:00 Completed [facility] SARS-COV-2 COVID-19 PFIZER VACCINE 2020-06-25 00:00:00 Completed [facility] SARS-COV-2 COVID-19 PFIZER VACCINE 2020-06-25 00:00:00 Completed [facility] SARS-COV-2 COVID-19 PFIZER VACCINE 2020-06-25 00:00:00 Completed [facility] SARS-COV-2 COVID-19 PFIZER VACCINE 2020-06-25 00:00:00 Completed [facility] SARS-COV-2 COVID-19 PFIZER VACCINE 2020-06-25 00:00:00 Completed [facility] SARS-COV-2 COVID-19 PFIZER VACCINE 2020-06-25 00:00:00 Completed [facility] SARS-COV-2 COVID-19 PFIZER VACCINE 2020-06-25 00:00:00 Completed [facility] SARS-COV-2 COVID-19 PFIZER VACCINE 2020-06-25 00:00:00 Completed [facility] SARS-COV-2 COVID-19 PFIZER VACCINE 2020-06-25 00:00:00 Completed [facility] SARS-COV-2 COVID-19 PFIZER VACCINE 2020-06-25 00:00:00 Completed [facility] SARS-COV-2 COVID-19 PFIZER VACCINE 2020-06-25 00:00:00 Completed [facility] SARS-COV-2 COVID-19 PFIZER VACCINE 2020-06-25 00:00:00 Completed [facility] SARS-COV-2 COVID-19 PFIZER VACCINE 2020-06-25 00:00:00 Completed [facility] SARS-COV-2 COVID-19 PFIZER VACCINE 2020-06-04 00:00:00 Completed [facility] SARS-COV-2 COVID-19 PFIZER VACCINE 2020-06-04 00:00:00 Completed [facility] SARS-COV-2 COVID-19 PFIZER VACCINE 2020-06-04 00:00:00 Completed [facility] SARS-COV-2 COVID-19 PFIZER VACCINE 2020-06-04 00:00:00 Completed [facility] SARS-COV-2 COVID-19 PFIZER VACCINE 2020-06-04 00:00:00 Completed [facility] SARS-COV-2 COVID-19 PFIZER VACCINE 2020-06-04 00:00:00 Completed [facility] SARS-COV-2 COVID-19 PFIZER VACCINE 2020-06-04 00:00:00 Completed [facility] SARS-COV-2 COVID-19 PFIZER VACCINE 2020-06-04 00:00:00 Completed [facility] SARS-COV-2 COVID-19 PFIZER VACCINE 2020-06-04 00:00:00 Completed [facility] SARS-COV-2 COVID-19 PFIZER VACCINE 2020-06-04 00:00:00 Completed [facility] SARS-COV-2 COVID-19 PFIZER VACCINE 2020-06-04 00:00:00 Completed [facility] SARS-COV-2 COVID-19 PFIZER VACCINE 2020-06-04 00:00:00 Completed [facility] SARS-COV-2 COVID-19 PFIZER VACCINE 2020-06-04 00:00:00 Completed [facility] SARS-COV-2 COVID-19 PFIZER VACCINE 2020-06-04 00:00:00 Completed [facility] SARS-COV-2 COVID-19 PFIZER VACCINE 2020-06-04 00:00:00 Completed [facility] SARS-COV-2 COVID-19 PFIZER VACCINE 2020-06-04 00:00:00 Completed [facility] SARS-COV-2 COVID-19 PFIZER VACCINE 2020-06-04 00:00:00 Completed [facility] SARS-COV-2 COVID-19 PFIZER VACCINE 2020-06-04 00:00:00 Completed [facility] SARS-COV-2 COVID-19 PFIZER VACCINE 2020-06-04 00:00:00 Completed [facility] SARS-COV-2 COVID-19 PFIZER VACCINE 2020-06-04 00:00:00 Completed [facility] SARS-COV-2 COVID-19 PFIZER VACCINE 2020-06-04 00:00:00 Completed [facility] SARS-COV-2 COVID-19 PFIZER VACCINE 2020-06-04 00:00:00 Completed [facility] SARS-COV-2 COVID-19 PFIZER VACCINE 2020-06-04 00:00:00 Completed [facility] SARS-COV-2 COVID-19 PFIZER VACCINE 2020-06-04 00:00:00 Completed [facility] SARS-COV-2 COVID-19 PFIZER VACCINE 2020-06-04 00:00:00 Completed [facility] SARS-COV-2 COVID-19 PFIZER VACCINE 2020-06-04 00:00:00 Completed [facility] SARS-COV-2 COVID-19 PFIZER VACCINE 2020-06-04 00:00:00 Completed [facility] SARS-COV-2 COVID-19 PFIZER VACCINE 2020-06-04 00:00:00 Completed [facility] SARS-COV-2 COVID-19 PFIZER VACCINE 2020-06-04 00:00:00 Completed [facility] SARS-COV-2 COVID-19 PFIZER VACCINE 2020-06-04 00:00:00 Completed [facility] SARS-COV-2 COVID-19 PFIZER VACCINE 2020-06-04 00:00:00 Completed [facility] SARS-COV-2 COVID-19 PFIZER VACCINE 2020-06-04 00:00:00 Completed [facility] SARS-COV-2 COVID-19 PFIZER VACCINE 2020-06-04 00:00:00 Completed [facility] SARS-COV-2 COVID-19 PFIZER VACCINE 2020-06-04 00:00:00 Completed [facility] SARS-COV-2 COVID-19 PFIZER VACCINE 2020-06-04 00:00:00 Completed [facility] SARS-COV-2 COVID-19 PFIZER VACCINE 2020-06-04 00:00:00 Completed [facility] SARS-COV-2 COVID-19 PFIZER VACCINE 2020-06-04 00:00:00 Completed [facility] SARS-COV-2 COVID-19 PFIZER VACCINE 2020-06-04 00:00:00 Completed [facility] SARS-COV-2 COVID-19 PFIZER VACCINE 2020-06-04 00:00:00 Completed [facility] SARS-COV-2 COVID-19 PFIZER VACCINE 2020-06-04 00:00:00 Completed [facility] SARS-COV-2 COVID-19 PFIZER VACCINE 2020-06-04 00:00:00 Completed [facility] SARS-COV-2 COVID-19 PFIZER VACCINE 2020-06-04 00:00:00 Completed [facility] SARS-COV-2 COVID-19 PFIZER VACCINE 2020-06-04 00:00:00 Completed [facility] SARS-COV-2 COVID-19 PFIZER VACCINE 2020-06-04 00:00:00 Completed [facility] SARS-COV-2 COVID-19 PFIZER VACCINE 2020-06-04 00:00:00 Completed [facility] SARS-COV-2 COVID-19 PFIZER VACCINE 2020-06-04 00:00:00 Completed [facility] SARS-COV-2 COVID-19 PFIZER VACCINE 2020-06-04 00:00:00 Completed [facility] SARS-COV-2 COVID-19 PFIZER VACCINE 2020-06-04 00:00:00 Completed [facility] SARS-COV-2 COVID-19 PFIZER VACCINE 2020-06-04 00:00:00 Completed [facility] SARS-COV-2 COVID-19 PFIZER VACCINE 2020-06-04 00:00:00 Completed [facility] SARS-COV-2 COVID-19 PFIZER VACCINE 2020-06-04 00:00:00 Completed [facility] SARS-COV-2 COVID-19 PFIZER VACCINE 2020-06-04 00:00:00 Completed [facility] SARS-COV-2 COVID-19 PFIZER VACCINE 2020-06-04 00:00:00 Completed [facility] SARS-COV-2 COVID-19 PFIZER VACCINE 2020-06-04 00:00:00 Completed [facility] SARS-COV-2 COVID-19 PFIZER VACCINE 2020-06-04 00:00:00 Completed [facility] SARS-COV-2 COVID-19 PFIZER VACCINE 2020-06-04 00:00:00 Completed [facility] SARS-COV-2 COVID-19 PFIZER VACCINE 2020-06-04 00:00:00 Completed [facility] SARS-COV-2 COVID-19 PFIZER VACCINE 2020-06-04 00:00:00 Completed [facility] SARS-COV-2 COVID-19 PFIZER VACCINE 2020-06-04 00:00:00 Completed [facility] SARS-COV-2 COVID-19 PFIZER VACCINE 2020-06-04 00:00:00 Completed [facility] SARS-COV-2 COVID-19 PFIZER VACCINE 2020-06-04 00:00:00 Completed [facility] SARS-COV-2 COVID-19 PFIZER VACCINE 2020-06-04 00:00:00 Completed [facility] SARS-COV-2 COVID-19 PFIZER VACCINE 2020-06-04 00:00:00 Completed [facility] Influenza Virus Vaccine Quad IM, Preserv and ABX Free 6 MO-64 YRS 2019-04-09 00:00:00 Completed [facility] Influenza Virus Vaccine Quad IM, Preserv and ABX Free 6 MO-64 YRS 2019-04-09 00:00:00 Completed [facility] Influenza Virus Vaccine Quad IM, Preserv and ABX Free 6 MO-64 YRS 2019-04-09 00:00:00 Completed [facility] Influenza Virus Vaccine Quad IM, Preserv and ABX Free 6 MO-64 YRS 2019-04-09 00:00:00 Completed [facility] Influenza Virus Vaccine Quad IM, Preserv and ABX Free 6 MO-64 YRS 2019-04-09 00:00:00 Completed [facility] Influenza Virus Vaccine Quad IM, Preserv and ABX Free 6 MO-64 YRS 2019-04-09 00:00:00 Completed [facility] Influenza Virus Vaccine Quad IM, Preserv and ABX Free 6 MO-64 YRS 2019-04-09 00:00:00 Completed [facility] Influenza Virus Vaccine Quad IM, Preserv and ABX Free 6 MO-64 YRS 2019-04-09 00:00:00 Completed [facility] Influenza Virus Vaccine Quad IM, Preserv and ABX Free 6 MO-64 YRS 2019-04-09 00:00:00 Completed [facility] Influenza Virus Vaccine Quad IM, Preserv and ABX Free 6 MO-64 YRS 2019-04-09 00:00:00 Completed [facility] Influenza Virus Vaccine Quad IM, Preserv and ABX Free 6 MO-64 YRS 2019-04-09 00:00:00 Completed [facility] Influenza Virus Vaccine Quad IM, Preserv and ABX Free 6 MO-64 YRS 2019-04-09 00:00:00 Completed [facility] Influenza Virus Vaccine Quad IM, Preserv and ABX Free 6 MO-64 YRS 2019-04-09 00:00:00 Completed [facility] Influenza Virus Vaccine Quad IM, Preserv and ABX Free 6 MO-64 YRS 2019-04-09 00:00:00 Completed [facility] Influenza Virus Vaccine Quad IM, Preserv and ABX Free 6 MO-64 YRS 2019-04-09 00:00:00 Completed [facility] Influenza Virus Vaccine Quad IM, Preserv and ABX Free 6 MO-64 YRS 2019-04-09 00:00:00 Completed [facility] Influenza Virus Vaccine Quad IM, Preserv and ABX Free 6 MO-64 YRS 2019-04-09 00:00:00 Completed [facility] Influenza Virus Vaccine Quad IM, Preserv and ABX Free 6 MO-64 YRS 2019-04-09 00:00:00 Completed [facility] Influenza Virus Vaccine Quad IM, Preserv and ABX Free 6 MO-64 YRS 2019-04-09 00:00:00 Completed [facility] Influenza Virus Vaccine Quad IM, Preserv and ABX Free 6 MO-64 YRS 2019-04-09 00:00:00 Completed [facility] Influenza Virus Vaccine Quad IM, Preserv and ABX Free 6 MO-64 YRS 2019-04-09 00:00:00 Completed [facility] Influenza Virus Vaccine Quad IM, Preserv and ABX Free 6 MO-64 YRS 2019-04-09 00:00:00 Completed [facility] Influenza Virus Vaccine Quad IM, Preserv and ABX Free 6 MO-64 YRS 2019-04-09 00:00:00 Completed [facility] Influenza Virus Vaccine Quad IM, Preserv and ABX Free 6 MO-64 YRS 2019-04-09 00:00:00 Completed [facility] Influenza Virus Vaccine Quad IM, Preserv and ABX Free 6 MO-64 YRS 2019-04-09 00:00:00 Completed [facility] Influenza Virus Vaccine Quad IM, Preserv and ABX Free 6 MO-64 YRS 2019-04-09 00:00:00 Completed [facility] Influenza Virus Vaccine Quad IM, Preserv and ABX Free 6 MO-64 YRS 2019-04-09 00:00:00 Completed [facility] Influenza Virus Vaccine Quad IM, Preserv and ABX Free 6 MO-64 YRS 2019-04-09 00:00:00 Completed [facility] Influenza Virus Vaccine Quad IM, Preserv and ABX Free 6 MO-64 YRS 2019-04-09 00:00:00 Completed [facility] Influenza Virus Vaccine Quad IM, Preserv and ABX Free 6 MO-64 YRS 2019-04-09 00:00:00 Completed [facility] Influenza Virus Vaccine Quad IM, Preserv and ABX Free 6 MO-64 YRS 2019-04-09 00:00:00 Completed [facility] Influenza Virus Vaccine Quad IM, Preserv and ABX Free 6 MO-64 YRS 2019-04-09 00:00:00 Completed [facility] Influenza Virus Vaccine Quad IM, Preserv and ABX Free 6 MO-64 YRS 2019-04-09 00:00:00 Completed [facility] Influenza Virus Vaccine Quad IM, Preserv and ABX Free 6 MO-64 YRS 2019-04-09 00:00:00 Completed [facility] Influenza Virus Vaccine Quad IM, Preserv and ABX Free 6 MO-64 YRS 2019-04-09 00:00:00 Completed [facility] Influenza Virus Vaccine Quad IM, Preserv and ABX Free 6 MO-64 YRS 2019-04-09 00:00:00 Completed [facility] Influenza Virus Vaccine Quad IM, Preserv and ABX Free 6 MO-64 YRS 2019-04-09 00:00:00 Completed [facility] Influenza Virus Vaccine Quad IM, Preserv and ABX Free 6 MO-64 YRS 2019-04-09 00:00:00 Completed [facility] Influenza Virus Vaccine Quad IM, Preserv and ABX Free 6 MO-64 YRS 2019-04-09 00:00:00 Completed [facility] Influenza Virus Vaccine Quad IM, Preserv and ABX Free 6 MO-64 YRS 2019-04-09 00:00:00 Completed [facility] Influenza Virus Vaccine Quad IM, Preserv and ABX Free 6 MO-64 YRS 2019-04-09 00:00:00 Completed [facility] Influenza Virus Vaccine Quad IM, Preserv and ABX Free 6 MO-64 YRS 2019-04-09 00:00:00 Completed [facility] Influenza Virus Vaccine Quad IM, Preserv and ABX Free 6 MO-64 YRS 2019-04-09 00:00:00 Completed [facility] Influenza Virus Vaccine Quad IM, Preserv and ABX Free 6 MO-64 YRS 2019-04-09 00:00:00 Completed [facility] Influenza Virus Vaccine Quad IM, Preserv and ABX Free 6 MO-64 YRS 2019-04-09 00:00:00 Completed [facility] Flucelvax - single dose syringe Flucelvax - single dose syringe 2019-04-09 00:00:00 Completed [facility] Influenza Virus Vaccine Quad .5 mL IM 6+ MO 2018-01-14 00:00:00 Completed [facility] Influenza Virus Vaccine 2018-01-14 00:00:00 Completed [facility] Influenza Virus Vaccine Quad .5 mL IM 6+ MO 2018-01-14 00:00:00 Completed [facility] Influenza Virus Vaccine 2018-01-14 00:00:00 Completed [facility] Influenza Virus Vaccine Quad .5 mL IM 6+ MO 2018-01-14 00:00:00 Completed [facility] Influenza Virus Vaccine 2018-01-14 00:00:00 Completed [facility] Influenza Virus Vaccine Quad .5 mL IM 6+ MO 2018-01-14 00:00:00 Completed [facility] Influenza Virus Vaccine 2018-01-14 00:00:00 Completed [facility] Influenza Virus Vaccine Quad .5 mL IM 6+ MO 2018-01-14 00:00:00 Completed [facility] Influenza Virus Vaccine 2018-01-14 00:00:00 Completed [facility] Influenza Virus Vaccine Quad .5 mL IM 6+ MO 2018-01-14 00:00:00 Completed [facility] Influenza Virus Vaccine 2018-01-14 00:00:00 Completed [facility] Influenza Virus Vaccine Quad .5 mL IM 6+ MO 2018-01-14 00:00:00 Completed [facility] Influenza Virus Vaccine 2018-01-14 00:00:00 Completed [facility] Influenza Virus Vaccine Quad .5 mL IM 6+ MO 2018-01-14 00:00:00 Completed [facility] Influenza Virus Vaccine 2018-01-14 00:00:00 Completed [facility] Influenza Virus Vaccine Quad .5 mL IM 6+ MO 2018-01-14 00:00:00 Completed [facility] Influenza Virus Vaccine 2018-01-14 00:00:00 Completed [facility] Influenza Virus Vaccine Quad .5 mL IM 6+ MO 2018-01-14 00:00:00 Completed [facility] Influenza Virus Vaccine 2018-01-14 00:00:00 Completed [facility] Influenza Virus Vaccine Quad .5 mL IM 6+ MO 2018-01-14 00:00:00 Completed [facility] Influenza Virus Vaccine 2018-01-14 00:00:00 Completed [facility] Influenza Virus Vaccine Quad .5 mL IM 6+ MO 2018-01-14 00:00:00 Completed [facility] Influenza Virus Vaccine 2018-01-14 00:00:00 Completed [facility] Influenza Virus Vaccine Quad .5 mL IM 6+ MO 2018-01-14 00:00:00 Completed [facility] Influenza Virus Vaccine 2018-01-14 00:00:00 Completed [facility] Influenza Virus Vaccine Quad .5 mL IM 6+ MO 2018-01-14 00:00:00 Completed [facility] Influenza Virus Vaccine 2018-01-14 00:00:00 Completed [facility] Influenza Virus Vaccine Quad .5 mL IM 6+ MO 2018-01-14 00:00:00 Completed [facility] Influenza Virus Vaccine 2018-01-14 00:00:00 Completed [facility] Influenza Virus Vaccine Quad .5 mL IM 6+ MO 2018-01-14 00:00:00 Completed [facility] Influenza Virus Vaccine 2018-01-14 00:00:00 Completed [facility] Influenza Virus Vaccine Quad .5 mL IM 6+ MO 2018-01-14 00:00:00 Completed [facility] Influenza Virus Vaccine 2018-01-14 00:00:00 Completed [facility] Influenza Virus Vaccine Quad .5 mL IM 6+ MO 2018-01-14 00:00:00 Completed [facility] Influenza Virus Vaccine 2018-01-14 00:00:00 Completed [facility] Influenza Virus Vaccine Quad .5 mL IM 6+ MO 2018-01-14 00:00:00 Completed [facility] Influenza Virus Vaccine 2018-01-14 00:00:00 Completed [facility] Influenza Virus Vaccine Quad .5 mL IM 6+ MO 2018-01-14 00:00:00 Completed [facility] Influenza Virus Vaccine 2018-01-14 00:00:00 Completed [facility] Influenza Virus Vaccine Quad .5 mL IM 6+ MO 2018-01-14 00:00:00 Completed [facility] Influenza Virus Vaccine 2018-01-14 00:00:00 Completed [facility] Influenza Virus Vaccine Quad .5 mL IM 6+ MO 2018-01-14 00:00:00 Completed [facility] Influenza Virus Vaccine 2018-01-14 00:00:00 Completed [facility] Influenza Virus Vaccine Quad .5 mL IM 6+ MO 2018-01-14 00:00:00 Completed [facility] Influenza Virus Vaccine 2018-01-14 00:00:00 Completed [facility] Influenza Virus Vaccine Quad .5 mL IM 6+ MO 2018-01-14 00:00:00 Completed [facility] Influenza Virus Vaccine 2018-01-14 00:00:00 Completed [facility] Influenza Virus Vaccine Quad .5 mL IM 6+ MO 2018-01-14 00:00:00 Completed [facility] Influenza Virus Vaccine 2018-01-14 00:00:00 Completed [facility] Influenza Virus Vaccine Quad .5 mL IM 6+ MO 2018-01-14 00:00:00 Completed [facility] Influenza Virus Vaccine 2018-01-14 00:00:00 Completed [facility] Influenza Virus Vaccine Quad .5 mL IM 6+ MO 2018-01-14 00:00:00 Completed [facility] Influenza Virus Vaccine 2018-01-14 00:00:00 Completed [facility] Influenza Virus Vaccine Quad .5 mL IM 6+ MO 2018-01-14 00:00:00 Completed [facility] Influenza Virus Vaccine 2018-01-14 00:00:00 Completed [facility] Influenza Virus Vaccine Quad .5 mL IM 6+ MO 2018-01-14 00:00:00 Completed [facility] Influenza Virus Vaccine 2018-01-14 00:00:00 Completed [facility] Influenza Virus Vaccine Quad .5 mL IM 6+ MO 2018-01-14 00:00:00 Completed [facility] Influenza Virus Vaccine 2018-01-14 00:00:00 Completed [facility] Influenza Virus Vaccine Quad .5 mL IM 6+ MO 2018-01-14 00:00:00 Completed [facility] Influenza Virus Vaccine 2018-01-14 00:00:00 Completed [facility] Influenza Virus Vaccine Quad .5 mL IM 6+ MO 2018-01-14 00:00:00 Completed [facility] Influenza Virus Vaccine 2018-01-14 00:00:00 Completed [facility] Influenza Virus Vaccine Quad .5 mL IM 6+ MO 2018-01-14 00:00:00 Completed [facility] Influenza Virus Vaccine 2018-01-14 00:00:00 Completed [facility] Influenza Virus Vaccine Quad .5 mL IM 6+ MO 2018-01-14 00:00:00 Completed [facility] Influenza Virus Vaccine 2018-01-14 00:00:00 Completed [facility] Influenza Virus Vaccine Quad .5 mL IM 6+ MO 2018-01-14 00:00:00 Completed [facility] Influenza Virus Vaccine 2018-01-14 00:00:00 Completed [facility] Influenza Virus Vaccine Quad .5 mL IM 6+ MO 2018-01-14 00:00:00 Completed [facility] Influenza Virus Vaccine 2018-01-14 00:00:00 Completed [facility] Influenza Virus Vaccine Quad .5 mL IM 6+ MO 2018-01-14 00:00:00 Completed [facility] Influenza Virus Vaccine 2018-01-14 00:00:00 Completed [facility] Influenza Virus Vaccine Quad .5 mL IM 6+ MO 2018-01-14 00:00:00 Completed [facility] Influenza Virus Vaccine 2018-01-14 00:00:00 Completed [facility] Influenza Virus Vaccine Quad .5 mL IM 6+ MO 2018-01-14 00:00:00 Completed [facility] Influenza Virus Vaccine 2018-01-14 00:00:00 Completed [facility] Influenza Virus Vaccine Quad .5 mL IM 6+ MO 2018-01-14 00:00:00 Completed [facility] Influenza Virus Vaccine 2018-01-14 00:00:00 Completed [facility] Influenza Virus Vaccine Quad .5 mL IM 6+ MO 2018-01-14 00:00:00 Completed [facility] Influenza Virus Vaccine 2018-01-14 00:00:00 Completed [facility] Influenza Virus Vaccine Quad .5 mL IM 6+ MO 2018-01-14 00:00:00 Completed [facility] Influenza Virus Vaccine 2018-01-14 00:00:00 Completed [facility] Influenza Virus Vaccine Quad .5 mL IM 6+ MO 2018-01-14 00:00:00 Completed [facility] Influenza Virus Vaccine 2018-01-14 00:00:00 Completed [facility] Influenza Virus Vaccine Quad .5 mL IM 6+ MO 2018-01-14 00:00:00 Completed [facility] Influenza Virus Vaccine 2018-01-14 00:00:00 Completed [facility] Influenza Virus Vaccine Quad .5 mL IM 6+ MO 2018-01-14 00:00:00 Completed [facility] Influenza Virus Vaccine 2018-01-14 00:00:00 Completed [facility] Influenza Virus Vaccine Quad .5 mL IM 6+ MO 2018-01-14 00:00:00 Completed [facility] Influenza Virus Vaccine 2018-01-14 00:00:00 Completed [facility] Influenza Virus Vaccine Quad .5 mL IM 6+ MO 2018-01-14 00:00:00 Completed [facility] Influenza Virus Vaccine 2018-01-14 00:00:00 Completed [facility] Influenza Virus Vaccine Quad .5 mL IM 6+ MO 2018-01-14 00:00:00 Completed [facility] Influenza Virus Vaccine 2018-01-14 00:00:00 Completed [facility] Influenza Virus Vaccine Quad .5 mL IM 6+ MO 2018-01-14 00:00:00 Completed [facility] Influenza Virus Vaccine 2018-01-14 00:00:00 Completed [facility] Influenza Virus Vaccine Quad .5 mL IM 6+ MO 2018-01-14 00:00:00 Completed [facility] Influenza Virus Vaccine 2018-01-14 00:00:00 Completed [facility] Influenza Virus Vaccine Quad .5 mL IM 6+ MO 2018-01-14 00:00:00 Completed [facility] Influenza Virus Vaccine 2018-01-14 00:00:00 Completed [facility] Influenza Virus Vaccine Quad .5 mL IM 6+ MO 2018-01-14 00:00:00 Completed [facility] Influenza Virus Vaccine 2018-01-14 00:00:00 Completed [facility] Influenza Virus Vaccine Quad .5 mL IM 6+ MO 2018-01-14 00:00:00 Completed [facility] Influenza Virus Vaccine 2018-01-14 00:00:00 Completed [facility] Influenza Virus Vaccine Quad .5 mL IM 6+ MO 2018-01-14 00:00:00 Completed [facility] Influenza Virus Vaccine 2018-01-14 00:00:00 Completed [facility] Influenza Virus Vaccine Quad .5 mL IM 6+ MO 2018-01-14 00:00:00 Completed [facility] Influenza Virus Vaccine 2018-01-14 00:00:00 Completed [facility] Influenza Virus Vaccine Quad .5 mL IM 6+ MO 2018-01-14 00:00:00 Completed [facility] Influenza Virus Vaccine 2018-01-14 00:00:00 Completed [facility] Influenza Virus Vaccine Quad .5 mL IM 6+ MO 2018-01-14 00:00:00 Completed [facility] Influenza Virus Vaccine 2018-01-14 00:00:00 Completed [facility] Influenza Virus Vaccine Quad .5 mL IM 6+ MO 2018-01-14 00:00:00 Completed [facility] Influenza Virus Vaccine 2018-01-14 00:00:00 Completed [facility] Influenza Virus Vaccine Quad .5 mL IM 6+ MO 2018-01-14 00:00:00 Completed [facility] Influenza Virus Vaccine 2018-01-14 00:00:00 Completed [facility] Influenza Virus Vaccine Quad .5 mL IM 6+ MO 2018-01-14 00:00:00 Completed [facility] Influenza Virus Vaccine 2018-01-14 00:00:00 Completed [facility] Influenza Virus Vaccine Quad .5 mL IM 6+ MO 2018-01-14 00:00:00 Completed [facility] Influenza Virus Vaccine 2018-01-14 00:00:00 Completed [facility] Influenza Virus Vaccine Quad .5 mL IM 6+ MO 2018-01-14 00:00:00 Completed [facility] Influenza Virus Vaccine 2018-01-14 00:00:00 Completed [facility] Influenza Virus Vaccine Quad .5 mL IM 6+ MO 2018-01-14 00:00:00 Completed [facility] Influenza Virus Vaccine 2018-01-14 00:00:00 Completed [facility] Influenza Virus Vaccine Quad .5 mL IM 6+ MO (FLUZONE/FLULAVAL/F LUARIX) Unknown Completed [facility] Influenza Virus Vaccine Unknown Completed [facility] SARS-COV-2 COVID-19 PFIZER VACCINE Unknown Completed [facility] SARS-COV-2 COVID-19 PFIZER VACCINE Unknown Completed [facility] Influenza Virus Vaccine Quad IM, Preserv and ABX Free 6 MO-64 YRS (FLUCELVAX) Unknown Completed [facility] Pneumococcal 13 Conjugate, PCV13 (Prevnar 13) Unknown Completed [facility] TDAP Unknown Completed [facility] SARS-COV-2 COVID-19 PFIZER VACCINE Unknown Completed [facility] Influenza Virus Vaccine Quad IM, Preserv and ABX Free 6 MO-64 YRS (FLUCELVAX) Unknown Completed [facility] Influenza Virus Vaccine Quad .5 mL IM 6+ MO (FLUZONE/FLULAVAL/F LUARIX) Unknown Completed [facility] Influenza Virus Vaccine Unknown Completed [facility] SARS-COV-2 COVID-19 PFIZER VACCINE Unknown Completed [facility] SARS-COV-2 COVID-19 PFIZER VACCINE Unknown Completed [facility] Influenza Virus Vaccine Quad IM, Preserv and ABX Free 6 MO-64 YRS (FLUCELVAX) Unknown Completed [facility] Pneumococcal 13 Conjugate, PCV13 (Prevnar 13) Unknown Completed [facility] TDAP Unknown Completed [facility] SARS-COV-2 COVID-19 PFIZER VACCINE Unknown Completed [facility] Influenza Virus Vaccine Quad IM, Preserv and ABX Free 6 MO-64 YRS (FLUCELVAX) Unknown Completed [facility] Influenza Virus Vaccine Quad .5 mL IM 6+ MO (FLUZONE/FLULAVAL/F LUARIX) Unknown Completed [facility] Influenza Virus Vaccine Unknown Completed [facility] SARS-COV-2 COVID-19 PFIZER VACCINE Unknown Completed [facility] SARS-COV-2 COVID-19 PFIZER VACCINE Unknown Completed [facility] Influenza Virus Vaccine Quad IM, Preserv and ABX Free 6 MO-64 YRS (FLUCELVAX) Unknown Completed [facility] Pneumococcal 13 Conjugate, PCV13 (Prevnar 13) Unknown Completed [facility] TDAP Unknown Completed [facility] SARS-COV-2 COVID-19 PFIZER VACCINE Unknown Completed [facility] Influenza Virus Vaccine Quad IM, Preserv and ABX Free 6 MO-64 YRS (FLUCELVAX) Unknown Completed [facility] Influenza Virus Vaccine Quad .5 mL IM 6+ MO (FLUZONE/FLULAVAL/F LUARIX) Unknown Completed [facility] Influenza Virus Vaccine Unknown Completed [facility] SARS-COV-2 COVID-19 PFIZER VACCINE Unknown Completed [facility] SARS-COV-2 COVID-19 PFIZER VACCINE Unknown Completed [facility] Influenza Virus Vaccine Quad IM, Preserv and ABX Free 6 MO-64 YRS (FLUCELVAX) Unknown Completed [facility] Pneumococcal 13 Conjugate, PCV13 (Prevnar 13) Unknown Completed [facility] TDAP Unknown Completed [facility] SARS-COV-2 COVID-19 PFIZER VACCINE Unknown Completed [facility] Influenza Virus Vaccine Quad IM, Preserv and ABX Free 6 MO-64 YRS (FLUCELVAX) Unknown Completed [facility] Influenza Virus Vaccine Quad .5 mL IM 6+ MO (FLUZONE/FLULAVAL/F LUARIX) Unknown Completed [facility] Influenza Virus Vaccine Unknown Completed [facility] SARS-COV-2 COVID-19 PFIZER VACCINE Unknown Completed [facility] SARS-COV-2 COVID-19 PFIZER VACCINE Unknown Completed [facility] Influenza Virus Vaccine Quad IM, Preserv and ABX Free 6 MO-64 YRS (FLUCELVAX) Unknown Completed [facility] Pneumococcal 13 Conjugate, PCV13 (Prevnar 13) Unknown Completed [facility] TDAP Unknown Completed [facility] SARS-COV-2 COVID-19 PFIZER VACCINE Unknown Completed [facility] Influenza Virus Vaccine Quad IM, Preserv and ABX Free 6 MO-64 YRS (FLUCELVAX) Unknown Completed [facility] Influenza Virus Vaccine Quad .5 mL IM 6+ MO (FLUZONE/FLULAVAL/F LUARIX) Unknown Completed [facility] Influenza Virus Vaccine Unknown Completed [facility] SARS-COV-2 COVID-19 PFIZER VACCINE Unknown Completed [facility] SARS-COV-2 COVID-19 PFIZER VACCINE Unknown Completed [facility] Influenza Virus Vaccine Quad IM, Preserv and ABX Free 6 MO-64 YRS (FLUCELVAX) Unknown Completed [facility] Pneumococcal 13 Conjugate, PCV13 (Prevnar 13) Unknown Completed [facility] TDAP Unknown Completed [facility] SARS-COV-2 COVID-19 PFIZER VACCINE Unknown Completed [facility] Influenza Virus Vaccine Quad IM, Preserv and ABX Free 6 MO-64 YRS (FLUCELVAX) Unknown Completed [facility] Influenza Virus Vaccine Quad .5 mL IM 6+ MO (FLUZONE/FLULAVAL/F LUARIX) Unknown Completed [facility] Influenza Virus Vaccine Unknown Completed [facility] SARS-COV-2 COVID-19 PFIZER VACCINE Unknown Completed [facility] SARS-COV-2 COVID-19 PFIZER VACCINE Unknown Completed [facility] Influenza Virus Vaccine Quad IM, Preserv and ABX Free 6 MO-64 YRS (FLUCELVAX) Unknown Completed [facility] Pneumococcal 13 Conjugate, PCV13 (Prevnar 13) Unknown Completed [facility] TDAP Unknown Completed [facility] SARS-COV-2 COVID-19 PFIZER VACCINE Unknown Completed [facility] Influenza Virus Vaccine Quad IM, Preserv and ABX Free 6 MO-64 YRS (FLUCELVAX) Unknown Completed [facility] Influenza Virus Vaccine Quad .5 mL IM 6+ MO (FLUZONE/FLULAVAL/F LUARIX) Unknown Completed [facility] Influenza Virus Vaccine Unknown Completed [facility] SARS-COV-2 COVID-19 PFIZER VACCINE Unknown Completed [facility] SARS-COV-2 COVID-19 PFIZER VACCINE Unknown Completed [facility] Influenza Virus Vaccine Quad IM, Preserv and ABX Free 6 MO-64 YRS (FLUCELVAX) Unknown Completed [facility] Pneumococcal 13 Conjugate, PCV13 (Prevnar 13) Unknown Completed [facility] TDAP Unknown Completed [facility] SARS-COV-2 COVID-19 PFIZER VACCINE Unknown Completed [facility] Influenza Virus Vaccine Quad IM, Preserv and ABX Free 6 MO-64 YRS (FLUCELVAX) Unknown Completed [facility] Influenza Virus Vaccine Quad .5 mL IM 6+ MO (FLUZONE/FLULAVAL/F LUARIX) Unknown Completed [facility] Influenza Virus Vaccine Unknown Completed [facility] SARS-COV-2 COVID-19 PFIZER VACCINE Unknown Completed [facility] SARS-COV-2 COVID-19 PFIZER VACCINE Unknown Completed [facility] Influenza Virus Vaccine Quad IM, Preserv and ABX Free 6 MO-64 YRS (FLUCELVAX) Unknown Completed [facility] Pneumococcal 13 Conjugate, PCV13 (Prevnar 13) Unknown Completed [facility] TDAP Unknown Completed [facility] SARS-COV-2 COVID-19 PFIZER VACCINE Unknown Completed [facility] Influenza Virus Vaccine Quad IM, Preserv and ABX Free 6 MO-64 YRS (FLUCELVAX) Unknown Completed [facility] Influenza Virus Vaccine Quad .5 mL IM 6+ MO (FLUZONE/FLULAVAL/F LUARIX) Unknown Completed [facility] Influenza Virus Vaccine Unknown Completed [facility] SARS-COV-2 COVID-19 PFIZER VACCINE Unknown Completed [facility] SARS-COV-2 COVID-19 PFIZER VACCINE Unknown Completed [facility] Influenza Virus Vaccine Quad IM, Preserv and ABX Free 6 MO-64 YRS (FLUCELVAX) Unknown Completed [facility] Pneumococcal 13 Conjugate, PCV13 (Prevnar 13) Unknown Completed [facility] TDAP Unknown Completed [facility] SARS-COV-2 COVID-19 PFIZER VACCINE Unknown Completed [facility] Influenza Virus Vaccine Quad IM, Preserv and ABX Free 6 MO-64 YRS (FLUCELVAX) Unknown Completed [facility] Influenza Virus Vaccine Quad .5 mL IM 6+ MO (FLUZONE/FLULAVAL/F LUARIX) Unknown Completed [facility] Influenza Virus Vaccine Unknown Completed [facility] SARS-COV-2 COVID-19 PFIZER VACCINE Unknown Completed [facility] SARS-COV-2 COVID-19 PFIZER VACCINE Unknown Completed [facility] Influenza Virus Vaccine Quad IM, Preserv and ABX Free 6 MO-64 YRS (FLUCELVAX) Unknown Completed [facility] Pneumococcal 13 Conjugate, PCV13 (Prevnar 13) Unknown Completed [facility] TDAP Unknown Completed [facility] SARS-COV-2 COVID-19 PFIZER VACCINE Unknown Completed [facility] Influenza Virus Vaccine Quad IM, Preserv and ABX Free 6 MO-64 YRS (FLUCELVAX) Unknown Completed [facility] Influenza Virus Vaccine Quad .5 mL IM 6+ MO (FLUZONE/FLULAVAL/F LUARIX) Unknown Completed [facility] Influenza Virus Vaccine Unknown Completed [facility] SARS-COV-2 COVID-19 PFIZER VACCINE Unknown Completed [facility] SARS-COV-2 COVID-19 PFIZER VACCINE Unknown Completed [facility] Influenza Virus Vaccine Quad IM, Preserv and ABX Free 6 MO-64 YRS (FLUCELVAX) Unknown Completed [facility] Pneumococcal 13 Conjugate, PCV13 (Prevnar 13) Unknown Completed [facility] TDAP Unknown Completed [facility] SARS-COV-2 COVID-19 PFIZER VACCINE Unknown Completed [facility] Influenza Virus Vaccine Quad IM, Preserv and ABX Free 6 MO-64 YRS (FLUCELVAX) Unknown Completed [facility] Influenza Virus Vaccine Quad .5 mL IM 6+ MO (FLUZONE/FLULAVAL/F LUARIX) Unknown Completed [facility] Influenza Virus Vaccine Unknown Completed [facility] SARS-COV-2 COVID-19 PFIZER VACCINE Unknown Completed [facility] SARS-COV-2 COVID-19 PFIZER VACCINE Unknown Completed [facility] Influenza Virus Vaccine Quad IM, Preserv and ABX Free 6 MO-64 YRS (FLUCELVAX) Unknown Completed [facility] Pneumococcal 13 Conjugate, PCV13 (Prevnar 13) Unknown Completed [facility] TDAP Unknown Completed [facility] SARS-COV-2 COVID-19 PFIZER VACCINE Unknown Completed [facility] Influenza Virus Vaccine Quad IM, Preserv and ABX Free 6 MO-64 YRS (FLUCELVAX) Unknown Completed [facility] Influenza Virus Vaccine Quad .5 mL IM 6+ MO (FLUZONE/FLULAVAL/F LUARIX) Unknown Completed [facility] Influenza Virus Vaccine Unknown Completed [facility] SARS-COV-2 COVID-19 PFIZER VACCINE Unknown Completed [facility] SARS-COV-2 COVID-19 PFIZER VACCINE Unknown Completed [facility] Influenza Virus Vaccine Quad IM, Preserv and ABX Free 6 MO-64 YRS (FLUCELVAX) Unknown Completed [facility] Pneumococcal 13 Conjugate, PCV13 (Prevnar 13) Unknown Completed [facility] TDAP Unknown Completed [facility] SARS-COV-2 COVID-19 PFIZER VACCINE Unknown Completed [facility] Influenza Virus Vaccine Quad IM, Preserv and ABX Free 6 MO-64 YRS (FLUCELVAX) Unknown Completed [facility] Influenza Virus Vaccine Quad .5 mL IM 6+ MO (FLUZONE/FLULAVAL/F LUARIX) Unknown Completed [facility] Influenza Virus Vaccine Unknown Completed [facility] SARS-COV-2 COVID-19 PFIZER VACCINE Unknown Completed [facility] SARS-COV-2 COVID-19 PFIZER VACCINE Unknown Completed [facility] Influenza Virus Vaccine Quad IM, Preserv and ABX Free 6 MO-64 YRS (FLUCELVAX) Unknown Completed [facility] Pneumococcal 13 Conjugate, PCV13 (Prevnar 13) Unknown Completed [facility] TDAP Unknown Completed [facility] SARS-COV-2 COVID-19 PFIZER VACCINE Unknown Completed [facility] Influenza Virus Vaccine Quad IM, Preserv and ABX Free 6 MO-64 YRS (FLUCELVAX) Unknown Completed [facility] Influenza Virus Vaccine Quad .5 mL IM 6+ MO (FLUZONE/FLULAVAL/F LUARIX) Unknown Completed [facility] Influenza Virus Vaccine Unknown Completed [facility] SARS-COV-2 COVID-19 PFIZER VACCINE Unknown Completed [facility] SARS-COV-2 COVID-19 PFIZER VACCINE Unknown Completed [facility] Influenza Virus Vaccine Quad IM, Preserv and ABX Free 6 MO-64 YRS (FLUCELVAX) Unknown Completed [facility] Pneumococcal 13 Conjugate, PCV13 (Prevnar 13) Unknown Completed [facility] TDAP Unknown Completed [facility] SARS-COV-2 COVID-19 PFIZER VACCINE Unknown Completed [facility] Influenza Virus Vaccine Quad IM, Preserv and ABX Free 6 MO-64 YRS (FLUCELVAX) Unknown Completed [facility] Influenza Virus Vaccine Quad .5 mL IM 6+ MO (FLUZONE/FLULAVAL/F LUARIX) Unknown Completed [facility] Influenza Virus Vaccine Unknown Completed [facility] SARS-COV-2 COVID-19 PFIZER VACCINE Unknown Completed [facility] SARS-COV-2 COVID-19 PFIZER VACCINE Unknown Completed [facility] Influenza Virus Vaccine Quad IM, Preserv and ABX Free 6 MO-64 YRS (FLUCELVAX) Unknown Completed [facility] Pneumococcal 13 Conjugate, PCV13 (Prevnar 13) Unknown Completed [facility] TDAP Unknown Completed [facility] SARS-COV-2 COVID-19 PFIZER VACCINE Unknown Completed [facility] Influenza Virus Vaccine Quad IM, Preserv and ABX Free 6 MO-64 YRS (FLUCELVAX) Unknown Completed [facility] Influenza Virus Vaccine Quad IM, Preserv and ABX Free 6 MO-64 YRS (FLUCELVAX) Unknown Completed [facility] Influenza Virus Vaccine Quad .5 mL IM 6+ MO (FLUZONE/FLULAVAL/F LUARIX) Unknown Completed [facility] Influenza Virus Vaccine Unknown Completed [facility] SARS-COV-2 COVID-19 PFIZER VACCINE Unknown Completed [facility] SARS-COV-2 COVID-19 PFIZER VACCINE Unknown Completed [facility] Influenza Virus Vaccine Quad IM, Preserv and ABX Free 6 MO-64 YRS (FLUCELVAX) Unknown Completed [facility] Pneumococcal 13 Conjugate, PCV13 (Prevnar 13) Unknown Completed [facility] TDAP Unknown Completed [facility] SARS-COV-2 COVID-19 PFIZER VACCINE Unknown Completed [facility] Influenza Virus Vaccine Quad IM, Preserv and ABX Free 6 MO-64 YRS (FLUCELVAX) Unknown Completed [facility] Influenza Virus Vaccine Quad IM, Preserv and ABX Free 6 MO-64 YRS (FLUCELVAX) Unknown Completed [facility] Vital Signs Vital Name Observation Time Observation Value Comments S ource Systolic blood pressure 2023-03-04 16:35:00 107 mm[Hg] [facility] Diastolic blood pressure 2023-03-04 16:35:00 72 mm[Hg] [facility] Heart rate 2023-03-04 16:35:00 69 /min [facility] Body height 2023-03-04 16:35:00 165.1 cm [facility] Body weight 2023-03-04 16:35:00 112.175 kg [facility] BMI 2023-03-04 16:35:00 41.15 kg/m2 [facility] Oxygen saturation in Arterial blood by Pulse oximetry 2023-03-04 16:35:00 94 /min [facility] Systolic blood pressure 2022-12-13 14:45:00 128 mm[Hg] [facility] Diastolic blood pressure 2022-12-13 14:45:00 80 mm[Hg] [facility] Heart rate 2022-12-13 14:37:00 84 /min [facility] Body height 2022-12-13 14:37:00 165.1 cm [facility] Body weight 2022-12-13 14:37:00 111.948 kg [facility] BMI 2022-12-13 14:37:00 41.07 [facility] saturation in Arterial blood by Pulse oximetry 2022-12-13 14:37:00 99 /min [facility] Systolic blood pressure 2022-11-29 21:23:00 127 mm[Hg] [facility] Diastolic blood pressure 2022-11-29 21:23:00 84 mm[Hg] [facility] Heart rate 2022-11-29 21:23:00 69 /min [facility] Body temperature 2022-11-29 21:23:00 36.72 Lynsey [facility] Respiratory rate 2022-11-29 21:23:00 16 /min [facility] Body height 2022-11-29 21:23:00 165.1 cm [facility] Body weight 2022-11-29 21:23:00 112.038 kg [facility] BMI 2022-11-29 21:23:00 41.10 kg/m2 [facility] Oxygen saturation in Arterial blood by Pulse oximetry 2022-11-29 21:23:00 100 /min [facility] Systolic blood pressure 2022-09-17 08:00:00 125 mm[Hg] [facility] Diastolic blood pressure 2022-09-17 08:00:00 78 mm[Hg] [facility] Heart rate 2022-09-17 08:00:00 53 /min [facility] Respiratory rate 2022-09-17 08:00:00 20 /min [facility] Oxygen saturation in Arterial blood by Pulse oximetry 2022-09-17 08:00:00 98 /min [facility] Body temperature 2022-09-17 03:24:00 36.72 Lynsey [facility] Body height 2022-09-17 03:24:00 165.1 cm [facility] Body weight 2022-09-17 03:24:00 114.76 kg [facility] BMI 2022-09-17 03:24:00 42.10 kg/m2 [facility] Systolic blood pressure 2022-09-14 14:30:00 126 mm[Hg] [facility] Diastolic blood pressure 2022-09-14 14:30:00 71 mm[Hg] [facility] Heart rate 2022-09-14 14:30:00 68 /min [facility] Body temperature 2022-09-14 14:30:00 36.89 Lynsey [facility] Respiratory rate 2022-09-14 14:30:00 16 /min [facility] Body height 2022-09-14 14:30:00 165.1 cm [facility] Body weight 2022-09-14 14:30:00 114.896 kg [facility] BMI 2022-09-14 14:30:00 42.15 kg/m2 [facility] Oxygen saturation in Arterial blood by Pulse oximetry 2022-09-14 14:30:00 99 /min [facility] Systolic blood pressure 2022-09-04 20:33:00 119 mm[Hg] [facility] Diastolic blood pressure 2022-09-04 20:33:00 79 mm[Hg] [facility] Heart rate 2022-09-04 20:33:00 78 /min [facility] Respiratory rate 2022-09-04 20:33:00 18 /min [facility] Body height 2022-09-04 20:33:00 165.1 cm [facility] Body weight 2022-09-04 20:33:00 113.49 kg [facility] BMI 2022-09-04 20:33:00 41.64 kg/m2 [facility] Oxygen saturation in Arterial blood by Pulse oximetry 2022-09-04 20:33:00 97 /min [facility] Systolic blood pressure 2022-08-30 21:22:00 118 mm[Hg] [facility] Diastolic blood pressure 2022-08-30 21:22:00 78 mm[Hg] [facility] Heart rate 2022-08-30 21:22:00 84 /min [facility] Respiratory rate 2022-08-30 21:22:00 18 /min [facility] Body height 2022-08-30 21:22:00 165.1 cm [facility] Body weight 2022-08-30 21:22:00 113.399 kg [facility] BMI 2022-08-30 21:22:00 41.60 kg/m2 [facility] Systolic blood pressure 2022-08-20 16:05:00 116 mm[Hg] [facility] Diastolic blood pressure 2022-08-20 16:05:00 65 mm[Hg] [facility] Respiratory rate 2022-08-20 16:05:00 16 /min [facility] Oxygen saturation in Arterial blood by Pulse oximetry 2022-08-20 16:05:00 98 /min [facility] Heart rate 2022-08-20 15:25:00 63 /min [facility] Body temperature 2022-08-20 14:43:00 35.94 Lynsey [facility] Body height 2022-08-09 15:00:00 165.1 cm [facility] Body weight 2022-08-09 15:00:00 108.863 kg [facility] BMI 2022-08-09 15:00:00 39.94 kg/m2 [facility] Systolic blood pressure 2022-08-20 15:00:00 114 mm[Hg] [facility] Diastolic blood pressure 2022-08-20 15:00:00 55 mm[Hg] [facility] Respiratory rate 2022-08-20 15:00:00 17 /min [facility] Oxygen saturation in Arterial blood by Pulse oximetry 2022-08-20 15:00:00 100 /min [facility] Heart rate 2022-08-20 14:43:00 70 /min [facility] Body temperature 2022-08-20 14:43:00 35.94 Lynsey [facility] Body height 2022-08-09 15:00:00 165.1 cm [facility] Body weight 2022-08-09 15:00:00 108.863 [facility] BMI 2022-08-09 15:00:00 39.94 kg/m2 [facility] Systolic blood pressure 2022-08-17 19:18:00 136 mm[Hg] [place] [facility] Diastolic blood pressure 2022-08-17 19:18:00 78 mm[Hg] [facility] Heart rate 2022-08-17 19:18:00 86 /min [facility] Body height 2022-08-17 19:18:00 165.1 cm [facility] weight 2022-08-17 19:18:00 115.304 kg [facility] BMI 2022-08-17 19:18:00 42.30 kg/m2 [facility] Oxygen saturation in Arterial blood by Pulse oximetry 2022-08-17 19:18:00 98 /min [facility] Systolic blood pressure 2022-08-02 13:43:00 135 mm[Hg] [facility] Diastolic blood pressure 2022-08-02 13:43:00 85 mm[Hg] [facility] Heart rate 2022-08-02 13:43:00 72 /min [facility] Respiratory rate 2022-08-02 13:43:00 18 /min [facility] Body height 2022-08-02 13:43:00 152.4 cm [facility] Body weight 2022-08-02 13:43:00 111.585 kg [facility] BMI 2022-08-02 13:43:00 48.04 kg/m2 [facility] Systolic blood pressure 2022-07-29 03:00:00 129 mm[Hg] [facility] Diastolic blood pressure 2022-07-29 03:00:00 83 mm[Hg] [facility] Heart rate 2022-07-29 03:00:00 70 /min [facility] Respiratory rate 2022-07-29 03:00:00 16 /min [facility] Oxygen saturation in Arterial blood by Pulse oximetry 2022-07-29 03:00:00 98 /min [facility] Body temperature 2022-07-28 21:22:00 36.72 Lynsey [facility] Body height 2022-07-28 21:22:00 165.1 cm [facility] Body weight 2022-07-28 21:22:00 109.77 kg [facility] BMI 2022-07-28 21:22:00 40.27 kg/m2 [facility] Systolic blood pressure 2022-02-28 17:46:00 128 mm[Hg] [facility] Diastolic blood pressure 2022-02-28 17:46:00 28 mm[Hg] [facility] Heart rate 2022-02-28 17:46:00 93 /min [facility] Body height 2022-02-28 17:46:00 165.1 cm [facility] Body weight 2022-02-28 17:46:00 115.214 kg [facility] BMI 2022-02-28 17:46:00 42.27 kg/m2 [facility] Systolic blood pressure 2021-11-27 15:19:00 139 mm[Hg] [facility] Diastolic blood pressure 2021-11-27 15:19:00 76 mm[Hg] [facility] Heart rate 2021-11-27 15:19:00 83 /min [facility] Body height 2021-11-27 15:19:00 165.1 cm [facility] Body weight 2021-11-27 15:19:00 120.385 kg [facility] BMI 2021-11-27 15:19:00 44.16 kg/m2 [facility] Oxygen saturation in Arterial blood by Pulse oximetry 2021-11-27 15:19:00 99 /min [facility] Systolic blood pressure 2021-08-25 21:45:00 124 mm[Hg] [facility] Diastolic blood pressure 2021-08-25 21:45:00 79 mm[Hg] [facility] Heart rate 2021-08-25 21:45:00 75 /min [facility] Body temperature 2021-08-25 21:45:00 36.44 Lynsey [facility] Respiratory rate 2021-08-25 21:45:00 18 /min [facility] Body height 2021-08-25 21:45:00 165.1 cm [facility] Body weight 2021-08-25 21:45:00 123.378 kg [facility] BMI 2021-08-25 21:45:00 45.26 kg/m2 [facility] Procedures Procedure Date / Time Performed Performing Clinician Source AUTHORIZATION TO RELEASE PHI TO [facility] 2023-03-04 06:01:00 Doctor Unassigned, [place] [facility] POCT URINALYSIS W/O SPECIFIC GRAVITY 2022-11-29 00:00:00 [place] [facility] CT PELVIS WO CONTRAST 2022-09-17 07:57:00 Jing Sullivan [facility] CT ABDOMEN PELVIS W CONTRAST 2022-09-17 05:10:00 Tejal Sullivan [facility] CT CHEST PULMONARY ANGIOGRAM 2022-09-17 05:10:00 Tejal Sullivan [facility] POCT TEST 2022-09-17 04:46:00 Tejal Sullivan [facility] MAGNESIUM 2022-09-17 04:20:00 Tejal Sullivan [facility] COMP. METABOLIC PANEL ([id number]) 2022-09-17 04:20:00 Tejal Sullivan [facility] CBC WITH DIFF 2022-09-17 04:20:00 Tejal Sullivan [facility] URINALYSIS 2022-09-17 04:20:00 Tejal Sullivan [facility] NOTICE OF PRIVACY PRACTICES 2022-09-17 03:07:57 Doctor Unassigned, [place] [facility] CONSENT/REFUSAL FOR DIAGNOSIS AND TREATMENT 2022-09-17 03:05:33 Doctor Unassigned, [place] [facility] COMP. METABOLIC PANEL ([id number]) 2022-09-04 21:30:00 Faye Napoles [facility] CBC WITH DIFF 2022-09-04 21:30:00 Faye Napoles [facility] POCT TEST 2022-08-20 12:22:00 Mckay Fu [facility] POCT TEST 2022-08-20 12:22:00 Tank gume [facility] LAPAROSCOPIC OOPHORECTOMY 2022-08-20 12:15:00 Devan [facility] LAPAROSCOPIC SALPINGECTOMY 2022-08-20 12:15:00 Devan [facility] DAY SURGERY - ADC 2022-08-20 05:01:00 Doctor Beatriz ssigned, [place] [facility] EXTERNAL PROVIDER RECORDS 2022-08-03 05:01:00 Doctor Unassigned, [place] [facility] DSU PRE-OP 2022-08-02 05:01:00 Doctor Unass igned, [place] [facility] DSU PRE-OP 2022-08-02 05:01:00 Doctor Unass igned, [place] [facility] US OVARY TORSION 2022-07-29 01:30:00 [place] [facility]AST 2022-07-28 23:04:58 [place] [facility] COMP. METABOLIC PANEL ([id number]) 2022-07-28 22:20:00 [place] [facility] CBC WITH DIFF 2022-07-28 22:20:00 [place] [facility] Planol[facility] URINALYSIS 2022-07-28 22:20:00 [place] [facility] CONSENT/REFUSAL FOR DIAGNOSIS AND TREATMENT 2022-07-28 21:14:36 Doctor Unassigned, [place] [facility] POCT HEMOGLOBIN A1C TEST 2022-02-28 17:58:00 Lanie Lopez [facility] Encounters Start Date/Time End Date/Time Encounter Type Admission Type Attending [facility] Facility Care Department Encounter ID Source 2021-03-22 12:08:59 [facility] [id number] [facility] 2021-03-22 12:08:27 [facility] [id number] [facility] 2021-03-22 11:07:35 Outpatient Cinda Briceno [facility] [id number] [facility] 2023-12-05 15:30:00 2023-12-05 15:30:00 Outpatient R [place], [place], [place] [facility] [id number] [facility] 2023-06-11 09:20:00 2023-06-11 09:20:00 Outpatient R JAGUAR, KEITH [facility] [id number] [facility] 2023-06-10 14:06:34 2023-06-10 14:06:34 Outpatient SFA AMIRAH [id number] Roscoe F Stef 2023-06-07 10:30:00 2023-06-07 10:30:00 Outpatient R FAYE NAPOLES [facility] [id number] [facility] 2023-05-26 00:00:00 2023-05-26 00:00:00 Refill [facility] MEDICAL OFFICE BUILD[facility] 1.2.840.114 350.1.13.10 4.2.7.2.686 [id number] [facility] 2023-03-07 13:30:00 2023-03-07 13:30:00 Outpatient R FAYE NAPOLES [facility] [id number] [facility] 2023-03-04 10:30:00 2023-03-04 11:00:00 Office Visit Percy Andrade [facility] MED[facility] OFF[facility] BUILDING 1.2.840.114 350.1.13.10 4.2.7.2.686 [id number] [facility] 2023-03-04 10:30:00 2023-03-04 10:30:00 Outpatient R PERCY ANDRADE [facility] [id number] [facility] 2023-03-04 00:00:00 2023-03-04 00:00:00 Orders Only Doctor Unassigned, [place] [facility] 1..114 350.1.13.10 4.2.7.2.686 [id number] [facility] 2023-03-02 00:00:00 2023-03-02 00:00:00 [facility]I [facility] MEDICAL OFFICE BUILDING 1.84.114 350.1.13.10 4.2.7.2.686 [id number] [facility] 2023-02-04 14:00:00 2023-02-04 14:00:00 Outpatient R LANIE LOPEZ YU [facility] [id number] [facility] 2023-01-26 00:00:00 2023-01-26 00:00:00 [facility] MEDICAL OFFICE BUILDING 1.840.114 350.1.13.10 4.2.7.2.686 [id number] [facility] 2023-01-07 10:40:00 2023-01-07 10:40:00 Outpatient KIZZY DAWN HOWARD [facility] [id number] [facility] 2022-12-13 09:30:00 2022-12-13 10:16:50 Outpatient R FAYE NAPOLES [facility] [id number] [facility] 2022-12-13 09:30:00 2022-12-13 10:16:50 Office Visit Yesika [facility] HESHAM[facility] MEDICAL OFFICE BUILD[facility] 1.840.114 350.1.13.10 4.2.7.2.686 [id number] [facility] 2022-12-10 16:30:00 2022-12-10 16:30:00 Outpatient R LANIE LOPEZ YU [facility] [id number] [facility] 2022-11-30 13:00:00 2022-11-30 13:17:44 Outpatient R [place] S, [place], [place] [facility] [id number] [facility] 2022-11-30 13:00:00 2022-11-30 13:17:44 Program Coordinator Executive Education Visit Lab, [place] [facility], [facility] MEDICAL OFFICE BUILDING 1.2.840.114 350.1.13.10 4.2.7.2.686 [id number] [facility] 2022-11-30 00:00:00 2022-11-30 00:00:00 Faye Liu [facility] MEDICAL OFFICE BUILDING 1..840.114 350.1.13.10 4.2.7.2.686 [id number] [facility] 2022-11-29 16:30:00 2022-11-29 16:41:13 Outpatient R [place]CAR[place] S, [place] [facility], [place] [facility] [id number] [facility] 2022-11-29 16:30:00 2022-11-29 16:41:13 Office Visit Fredrick-Carlyle s [place] [facility] 1..840.114 350.1.13.10 4.2.7.2.686 [id number] [facility] 2022-11-09 16:30:00 2022-11-09 16:30:00 Outpatient R [place] S, [place] [facility] [facility], [place] [facility] [id number] [facility] 2022-10-22 00:00:00 2022-10-22 00:00:00 [facility] [place] 1.2.840.114 350.1.13.10 4.2.7.2.686 [id number] [facility] 2022-10-18 00:00:00 2022-10-18 00:00:00 Refill Lanie Lopez [facility] MEDICAL OFFICE BUILDING 1..840.114 350.1.13.10 4.2.7.2.686 [id number] [facility] 2022-10-15 00:00:00 2022-10-15 00:00:00 [facility] [place] MED[facility] OFF[facility] BUILD[facility] 1..840.114 350.1.13.10 4.2.7.2.686 [id number] [facility] 2022-10-12 15:30:00 2022-10-12 15:30:00 Outpatient R FREDRICK-CARLYLE S, [place], [place] [facility] [id number] [facility] 2022-10-11 14:22:33 2022-10-11 23:59:00 Outpatient R FAYE NAPOLES [facility] [id number] [facility] 2022-10-11 14:22:33 2022-10-11 23:59:00 Hospital Encounter Faye Napoles [facility] 1..840.114 350.1.13.10 4.2.7.2.686 [id number] [facility] 2022-09-24 13:00:00 2022-09-24 13:00:00 Outpatient R [place], [place] [facility] [facility] [id number] [facility] 2022-09-20 00:00:00 2022-09-20 00:00:00 Telephone Ross alfaro [facility] 1..840.114 350.1.13.10 4.2.7.2.686 [id number] [facility] 2022-09-19 00:00:00 2022-09-19 00:00:00 Telephone Lanie Lopez [facility]?MAMI LYONS MEDICAL OFF[facility] BUILD[facility] 1..840.114 350.1.13.10 4.2.7.2.686 [id number] [facility] 2022-09-19 00:00:00 2022-09-19 00:00:00 Patient Secure Msg Ross alfaro [facility] 1..840.114 350.1.13.10 4.2.7.2.686 [id number] [facility] 2022-09-18 11:40:00 2022-09-18 11:40:00 Outpatient R ROSS Alfaro, [place] Alfaro [facility] [id number] [facility] 2022-09-18 00:00:00 2022-09-18 00:00:00 Telephone nAgela Tracysol [facility] 1..840.114 350.1.13.10 4.2.7.2.686 [id number] [facility] 2022-09-16 22:33:00 2022-09-17 03:30:00 Emergency X TEJAL SULLIVAN [facility] ERT [id number] [facility] 2022-09-16 22:33:00 2022-09-17 03:30:00 Emergency Tejal Sullivan [facility] 1.2.840.114 350.1.13.10 4.2.7.2.686 [id number] [facility] 2022-09-14 09:00:00 2022-09-14 09:53:56 Outpatient R [place]CAR[place] S, [place], [place] [facility] [id number] [facility] 2022-09-14 09:00:00 2022-09-14 09:53:56 Office Visit [place], [place] [facility] 1.0.114 350.1.13.10 4.2.7.2.686 [id number] [facility] 2022-09-14 08:00:00 2022-09-14 08:00:00 Outpatient R [place]CARLYLE S, [place], [place] [facility] [id number] [facility] 2022-09-07 00:00:00 2022-09-07 00:00:00 [facility] 1.840.114 350.1.13.10 4.2.7.2.686 [id number] [facility] 2022-09-06 00:00:00 2022-09-06 00:00:00 Refill Jose Bowen [facility] PROFESSIO NAL BUILDING 1.0.114 350.1.13.10 4.2.7.2.686 [id number] [facility] 2022-09-06 00:00:00 2022-09-06 00:00:00 Patient Secure Msg Doctor Unassigned, [place] [facility] 1.2840.114 350.1.13.10 4.2.7.2.686 [id number] [facility] 2022-09-04 16:15:00 2022-09-04 16:33:18 Program Coordinator Executive Education Visit Lab, [place] [facility] [place] Yesika [facility] 1.284.114 350.1.13.10 4.2.7.2.686 [id number] [facility] 2022-09-04 15:00:00 2022-09-04 16:21:35 [facility] [id number] [facility] 2022-09-04 15:00:00 2022-09-04 16:21:35 [facility] MEDICAL OFFICE BUILDING 1.284.114 350.1.13.10 4.2.7.2.686 [id number] [facility] 2022-09-04 00:00:00 2022-09-04 00:00:00 [facility] CenterE?[facility] MEDICAL OFFICE BUILDING 1.84.114 350.1.13.10 4.2.7.2.686 [id number] [facility] 2022-08-30 16:30:00 2022-08-30 16:49:20 Outpatient R [place] TRACY MARISOL [facility] [id number] [facility] 2022-08-30 16:30:00 2022-08-30 16:49:20 Office Visit [place] Tracy [facility] 1.84.114 350.1.13.10 4.2.7.2.686 [id number] [facility] 2022-08-25 00:00:00 2022-08-25 00:00:00 Refill Lanie Lopez [facility] MEDICAL OFFICE BUILDING 1.840.114 350.1.13.10 4.2.7.2.686 [id number] 220 [id number] [facility] 2022-08-22 00:00:00 2022-08-22 00:00:00 Telephone Alcala-Carlyle alfaro [place] [facility] 1.2840.114 350.1.13.10 4.2.7.2.686 [id number] [facility] 2022-08-20 06:45:00 2022-08-20 11:22:00 Outpatient R ALCALA-CARLYLE S, [place] ALCALA-CARLYLE S, [place] [facility] CAMP ASSISTANT [id number] [facility] 2022-08-20 06:45:00 2022-08-20 11:22:00 [facility] 1.0.114 350.1.13.10 4.2.7.2.686 [id number] [facility] 2022-08-20 07:15:00 2022-08-20 10:03:00 Surgery Alcala-Carlyle s [facility] 1.2840.114 350.1.13.10 4.2.7.2.686 [id number] [facility] 2022-08-20 00:00:00 2022-08-20 00:00:00 Orders Only Doctor Unassigned, [place] [facility] 1.2840.114 350.1.13.10 4.2.7.2.686 [id number] [facility] 2022-08-20 00:00:00 2022-08-20 00:00:00 Telephone Alcala-Carlyle s [facility] 1.2840.114 350.1.13.10 4.2.7.2.686 [id number] [facility] 2022-08-17 14:00:00 2022-08-17 14:52:48 Outpatient R EMILY GIL [facility] [id number] [facility] 2022-08-17 14:00:00 2022-08-17 14:52:48 [facility] LY[facility] MEDICAL OFFICE BUILDING 1.84114 350.1.13.10 4.2.7.2.686 [id number] 220 [id number] [facility] 2022-08-17 00:00:00 2022-08-17 00:00:00 Telephone [place] Tracy [facility] 1.114 350.1.13.10 4.2.7.2.686 [id number] 134 [id number] [facility] 2022-08-15 15:00:00 2022-08-15 16:00:22 Program Coordinator Executive Education Visit Lab, Avila Gayle [facility]I LYONS MEDICAL OFFICE BUILDING 1.114 350.1.13.10 4.2.7.2.686 [id number] [facility] 2022-08-15 15:00:00 2022-08-15 15:00:00 Outpatient R MARCO GAYLE [facility] [id number] [facility] 2022-08-15 00:00:00 2022-08-15 00:00:00 Telephone Jessica [facility] HESHAM?MAMI ASENCIO MEDICAL OFFICE BUILDING 1.114 350.1.13.10 4.2.7.2.686 [id number] 220 [id number] [facility] 2022-08-07 00:00:00 2022-08-07 00:00:00 Telephone Jessica Lanie [facility] H[facility]I ASENCIO MEDICAL OFFICE BUILDING 1.114 350.1.13.10 4.2.7.2.686 [id number] [facility] 2022-08-03 00:00:00 2022-08-03 00:00:00 Orders Only Doctor Unassigned, [place] [facility] 1.2840.114 350.1.13.10 4.2.7.2.686 [id number] [facility] 2022-08-02 08:30:00 2022-08-02 09:17:20 Outpatient R ROSS Alfaro BROOKLYNAMARIS Alfaro [facility] [id number] [facility] 2022-08-02 08:30:00 2022-08-02 09:17:20 Office Visit Ross alfaro [place] [facility] 1.0.114 350.1.13.10 4.2.7.2.686 [id number] [facility] 2022-08-02 00:00:00 2022-08-02 00:00:00 Prep For Surgery Ross alfaro [facility] 1..114 350.1.13.10 4.2.7.2.686 [id number] 134 [id number] [facility] 2022-07-30 00:00:00 2022-07-30 00:00:00 Patient Secure Msg Doctor Unassigned, [place] [facility] 1.2.114 350.1.13.10 4.2.7.2.686 [id number] 220 [id number] [facility] 2022-07-28 16:25:00 2022-07-28 22:46:00 Emergency X [place] [facility] ERT [id number] [facility] 2022-07-28 16:25:00 2022-07-28 22:46:00 Emergency [place] [facility] 1.2.840.114 350.1.13.10 4.2.7.2.686 [id number] [facility] 2022-07-27 14:30:00 2022-07-27 14:30:00 Outpatient R EMILY GIL [facility] [id number] [facility] 2022-07-25 00:00:00 2022-07-25 00:00:00 [facility] MEDICAL OFFICE BUILDING 1.2840.114 350.1.13.10 4.2.7.2.686 [id number] 220 [id number] [facility] 2022-07-25 00:00:00 2022-07-25 00:00:00 [facility]ill [facility] MEDICAL OFFICE BUILDING 1.2840.114 350.1.13.10 4.2.7.2.686 [id number] 220 [id number] [facility] 2022-07-20 00:00:00 2022-07-20 00:00:00 Refill Jessica, [facility] MEDICAL OFFICE BUILDING 1.2840.114 350.1.13.10 4.2.7.2.686 [id number] 220 [id number] [facility] 2022-07-02 13:30:00 2022-07-02 13:30:00 Outpatient R LANIE LOPEZ JESSICA [facility] [id number] [facility] 2022-05-21 00:00:00 2022-05-21 00:00:00 Case Management Pearl Echeverria 1.2840.114 350.1.13.10 4.2.7.2.686 [id number] [facility] 2022-05-21 00:00:00 2022-05-21 00:00:00 Telephone Pearl Echeverria 1.2840.114 350.1.13.10 4.2.7.2.686 [id number] [facility] 2022-05-04 00:00:00 2022-05-04 00:00:00 Refill Jessica [facility] HESHAM?[facility] MEDICAL OFFICE BUILDING 1.2840.114 350.1.13.10 4.2.7.2.686 [id number] 220 [id number] [facility] 2022-03-06 00:00:00 2022-03-06 00:00:00 Patient Secure Msnorma Lopez [facility] MEDICAL OFFICE BUILDING 1.2840.114 350.1.13.10 4.2.7.2.686 [id number] 220 [id number] [facility] 2022-03-02 00:00:00 2022-03-02 00:00:00 Refill Jessica [facility] PRIMARY CARE PAVILLION 1.2840.114 350.1.13.10 4.2.7.2.686 [id number] 220 [id number] [facility] 2022-02-28 12:00:00 2022-02-28 13:14:28 Outpatient R LANIE LOPEZ [facility] [id number] [facility] 2022-02-28 12:00:00 2022-02-28 13:14:28 [facility] MEDICAL OFFICE BUILDING 1.2840.114 350.1.13.10 4.2.7.2.686 [id number] 220 [id number] [facility] 2022-02-28 12:30:00 2022-02-28 12:45:00 Program Coordinator Executive Education Visit Lab, Avila Silver Jessica [facility] MEDICAL OFFICE BUILDING 1.2840.114 350.1.13.10 4.2.7.2.686 [id number] [facility] 2022-01-02 15:30:00 2022-01-02 15:30:00 Outpatient R LU ARIES [facility] [id number] [facility] 2021-12-19 00:00:00 2021-12-19 00:00:00 Patient Secure Msg Lopez Lanie [facility] PRIMARY CARE PAVILLION 1.2.840.114 350.1.13.10 4.2.7.2.686 [id number] 220 [id number] [facility] 2021-12-15 16:30:00 2021-12-15 16:30:00 Outpatient R FAYE NAPOLES [facility] [id number] [facility] 2021-12-15 00:00:00 2021-12-15 00:00:00 [facility] MEDICAL OFFICE BUILDING 1.2.840.114 350.1.13.10 4.2.7.2.686 [id number] [facility] 2021-11-29 00:00:00 2021-11-29 00:00:00 Refill Jessica, Manjarrez [facility] MEDICAL OFFICE BUILDING 1.2.840.114 350.1.13.10 4.2.7.2.686 [id number] 220 [id number] [facility] 2021-11-29 00:00:00 2021-11-29 00:00:00 Refill Jessica Lanie [facility] MEDICAL OFFICE BUILDING 1.2.840.114 350.1.13.10 4.2.7.2.686 [id number] 220 [id number] [facility] 2021-11-27 10:30:00 2021-11-27 11:02:19 Outpatient R LANIE LOPEZ YU [facility] [id number] [facility] 2021-11-27 10:30:00 2021-11-27 11:02:19 Office Visit L[facility] MEDICAL OFFICE BUILDING 1..840.114 350.1.13.10 4.2.7.2.686 [id number] 220 [id number] [facility] 2021-11-24 00:00:00 2021-11-24 00:00:00 JacintaChema Ryan [facility] MEDICAL OFFICE BUILDING 1..840.114 350.1.13.10 4.2.7.2.686 [id number] 220 [id number] [facility] 2021-10-21 00:00:00 2021-10-21 00:00:00 RefLanie Pride [facility] MEDICAL OFFICE BUILDING 1..840.114 350.1.13.10 4.2.7.2.686 [id number] 220 [id number] [facility] 2021-10-20 10:00:00 2021-10-20 10:00:00 Outpatient DEBRA GARCÍA [facility] [id number] [facility] 2021-10-05 15:00:00 2021-10-05 15:00:00 Outpatient DEBRA GARCÍA [facility] [id number] [facility] 2021-09-29 15:00:00 2021-09-29 15:00:00 Outpatient KIZZY DAWN HOWARD [facility] [id number] [facility] 2021-09-23 00:00:00 2021-09-23 00:00:00 Nancy Gurrola [facility] AND [facility] 1..840.114 350.1.13.10 4.2.7.2.686 [id number] 220 [id number] [facility] 2021-09-12 13:00:00 2021-09-12 13:00:00 Outpatient KIZZY DAWN HOWARD [facility] [id number] [facility] 2021-08-29 09:00:00 2021-08-29 09:00:00 Outpatient R ARIES LEIGH [facility] [id number] [facility] 2021-08-29 00:00:00 2021-08-29 00:00:00 Telephone JessicaLanie west [facility] PRIMARY CARE PAVILLION 1.2.840.114 350.1.13.10 4.2.7.2.686 [id number] 220 [id number] [facility] 2021-08-25 15:00:00 2021-08-25 15:30:00 [facility] 1..840.114 350.1.13.10 4.2.7.2.686 [id number] [facility] 2021-08-25 15:00:00 2021-08-25 15:00:00 Outpatient R DEBRA IRVIN [facility] [id number] [facility] 2021-08-25 15:00:00 2021-08-25 15:00:00 Outpatient R DEBRA IRVIN [facility] [id number] [facility] 2021-08-23 09:30:00 2021-08-23 09:45:00 Program Coordinator Executive Education Visit Lab, Avila Montes De Ocabrett [facility] MEDICAL OFFICE BUILDING 1..840.114 350.1.13.10 4.2.7.2.686 [id number] [facility] 2021-08-23 08:30:00 2021-08-23 09:16:15 Outpatient R LANIE LOPEZ [facility] [id number] [facility] 2021-08-23 08:30:00 2021-08-23 09:16:15 Office Visit Lanie Lopez [facility] MEDICAL OFFICE BUILDING 1..840.114 350.1.13.10 4.2.7.2.686 [id number] 220 [id number] [facility] 2021-08-03 00:00:00 2021-08-03 00:00:00 Refill Dominguez [facility] MEDICAL OFFICE BUILDING 1..840.114 350.1.13.10 4.2.7.2.686 [id number] 220 [id number] [facility] 2021-08-02 16:00:00 2021-08-02 16:00:00 Outpatient FIONA HEART [facility] [id number] [facility] 2021-07-31 00:00:00 2021-07-31 00:00:00 Refill Dominguez [facility]I ASENCIO MEDICAL OFFICE BUILDING 1.840.114 350.1.13.10 4.2.7.2.686 [id number] 220 [id number] [facility] 2021-07-21 00:00:00 2021-07-21 00:00:00 Refill Angelica [facility] MEDICAL OFFICE BUILDING 1.840.114 350.1.13.10 4.2.7.2.686 [id number] 220 [id number] [facility] 2021-07-20 00:00:00 2021-07-20 00:00:00 Refill Nancy Cannon [facility] 1.84.114 350.1.13.10 4.2.7.2.686 [id number] 220 [id number] [facility] 2021-05-17 00:00:00 2021-05-17 00:00:00 Refill Angelica [facility] SONIA PROFESSIO NAL BUILDING 1.84.114 350.1.13.10 4.2.7.2.686 [id number] 220 [id number] [facility] 2021-03-11 00:00:00 2021-03-11 00:00:00 [facility] BU[facility] 1.2.840.114 350.1.13.10 4.2.7.2.686 [id number] 220 [id number] [facility] 2021-03-08 00:00:00 2021-03-08 00:00:00 Chema Venegas [facility] BUILDING 1.2.840.114 350.1.13.10 4.2.7.2.686 [id number] 220 [id number] [facility] 2021-02-23 13:30:00 2021-02-23 13:30:00 Outpatient JOSE CARTER [facility] [id number] [facility] 2021-02-09 00:00:00 2021-02-09 00:00:00 Orders Only Doctor Unassigned, [place] [facility] 1..840.114 350.1.13.10 4.2.7.2.686 [id number] [facility] 2021-01-30 00:00:00 2021-01-30 00:00:00 Outpatient FAYE ARMAS [facility] [id number] [facility] 2021-01-30 00:00:00 2021-01-30 00:00:00 Outpatient FAYE ARMAS [facility] [id number] [facility] 2021-01-24 00:00:00 2021-01-24 00:00:00 Faye Adkins [facility] MEDICAL OFFICE BUILDING 1.2.840.114 350.1.13.10 4.2.7.2.686 [id number] [facility] 2021-01-17 13:00:00 2021-01-17 13:00:00 Outpatient KIZZY DAWN HOWARD [facility] [id number] [facility] 2021-01-16 12:41:38 2021-01-16 12:56:38 Program Coordinator Executive Education Visit Pob, Adc Lab Main Jose Bowen [facility] BUILDING 1.114 350.1.13.10 4.2.7.2.686 [id number] [facility] 2021-01-16 10:57:50 2021-01-16 11:58:36 Office Visit Jose Bowen Darci Leigh [facility] BUILDING 1.114 350.1.13.10 4.2.7.2.686 [id number] [facility] 2021-01-16 10:30:00 2021-01-16 11:58:36 Outpatient Smooth [facility] [id number] [facility] 2021-01-16 10:30:00 2021-01-16 11:58:36 Outpatient Smooth [facility] [id number] [facility] 2021-01-16 00:00:00 2021-01-16 00:00:00 Orders Only Doctor Unassigned, [place] [facility] 1.114 350.1.13.10 4.2.7.2.686 [id number] [facility] 2021-01-13 00:00:00 2021-01-13 00:00:00 Patient Secure Msg Cannon NancyCount includes the [facility]AMI ELIFFLORENCIO MEDICAL OFFICE BUILDING 1.114 350.1.13.10 4.2.7.2.686 [id number] 220 [id number] [facility] 2021-01-13 00:00:00 2021-01-13 00:00:00 Patient Secure Msg Cannon [facility] AND [facility] 1.114 350.1.13.10 4.2.7.2.686 [id number] 220 [id number] [facility] 2021-01-10 00:00:00 2021-01-10 00:00:00 [facility] FLOR[facility] MEDICAL OFFICE BUILDING 1.2.840.114 350.1.13.10 4.2.7.2.686 [id number] [facility] 2021-01-06 15:30:00 2021-01-06 16:04:28 Outpatient R NANCY CANNON [facility] [id number] [facility] 2021-01-06 15:25:33 2021-01-06 16:04:28 [facility] MEDICAL OFFICE BUILDING 1.2.840.114 350.1.13.10 4.2.7.2.686 [id number] 220 [id number] [facility] 2021-01-06 15:30:00 2021-01-06 15:30:00 Outpatient R NANCY CANNON [facility] [id number] [facility] 2021-01-06 15:30:00 2021-01-06 15:30:00 Outpatient R NANCY CANNON [facility] [id number] [facility] 2021-01-05 14:30:00 2021-01-05 23:59:00 Outpatient R FAYE NAPOLES [facility] [id number] [facility] 2021-01-05 14:30:00 2021-01-05 23:59:00 [facility] MEDICAL OFFICE BUILDING 1.2.840.114 350.1.13.10 4.2.7.2.686 [id number] [facility] 2021-01-05 14:30:00 2021-01-05 14:30:00 [facility] [id number] 2021-01-05 14:30:00 2021-01-05 14:30:00 Outpatient R FAYE NAPOLES [facility] [id number] [facility] 2021-01-05 14:08:27 2021-01-05 14:23:27 Program Coordinator Executive Education Visit Lab, Avila Silver [facility] MEDICAL OFFICE BUILDING 1.2.840.114 350.1.13.10 4.2.7.2.686 [id number] [facility] 2021-01-05 12:52:04 2021-01-05 14:06:37 Office [facility] MEDICAL OFFICE BUILDING 1.2.840.114 350.1.13.10 4.2.7.2.686 [id number] [facility] 2021-01-05 00:00:00 2021-01-05 00:00:00 Orders Only Doctor Unassigned, [place] [facility] 1.2.840.114 350.1.13.10 4.2.7.2.686 [id number] [facility] 2020-12-23 00:00:00 2020-12-23 00:00:00 Telephone Chema Dominguez [facility] MEDICAL OFFICE BUILDING 1.2.840.114 350.1.13.10 4.2.7.2.686 [id number] 220 [id number] [facility] 2020-12-12 09:00:00 2020-12-12 09:00:00 Outpatient FAYE ARMAS [facility] [id number] [facility] 2020-11-25 16:00:00 2020-11-25 16:00:00 Outpatient CHEMA MARIEE [facility] [id number] [facility] 2020-11-21 11:00:00 2020-11-21 11:00:00 Outpatient CHEMA MARIEE [facility] [id number] [facility] 2020-10-28 00:00:00 2020-10-28 00:00:00 Telephone [facility] AND [facility] 1.2.840.114 350.1.13.10 4.2.7.2.686 [id number] 220 [id number] [facility] 2020-10-28 00:00:00 2020-10-28 00:00:[address] [facility] 1.2840.114 350.1.13.10 4.2.7.2.686 [id number] 220 [id number] [facility] 2020-10-24 00:00:00 2020-10-24 00:00:00 RefSenia Nieto [facility] Professio [facility] Building 1.2840.114 350.1.13.10 4.2.7.2.686 [id number] 220 [id number] [facility] 2020-10-20 00:00:00 2020-10-20 00:00:00 Chema Venegas [facility] Professio nal Building 1.2840.114 350.1.13.10 4.2.7.2.686 [id number] 220 [id number] [facility] 2020-10-20 00:00:00 2020-10-20 00:00:00 Chema Venegas [facility] Professio nal Building 1.2840.114 350.1.13.10 4.2.7.2.686 [id number] 220 [id number] [facility] 2020-07-24 00:00:00 2020-07-24 00:00:00 Chema Venegas [facility] Professio nal Building 1.2840.114 350.1.13.10 4.2.7.2.686 [id number] 220 [id number] [facility] 2020-06-25 13:10:00 2020-06-25 13:10:00 Outpatient [facility] [id number] [facility] 2020-06-04 13:00:00 2020-06-04 13:00:00 Outpatient [facility] [id number] [facility] 2020-05-25 15:00:00 2020-05-25 15:00:00 Outpatient R LUARIES [facility] [id number] [facility] 2020-05-13 10:59:16 2020-05-13 12:12:32 Office Visit Chema Dominguez [facility] 1.2.840.114 350.1.13.10 4.2.7.2.686 [id number] 220 [id number] [facility] 2020-05-13 11:00:00 2020-05-13 11:00:00 Outpatient R CHEMA DOMINGUEZ [facility] [id number] [facility] 2020-05-10 14:30:00 2020-05-10 14:30:00 Outpatient Smooth LEIGHRHIANNONCY [facility] [id number] [facility] 2020-04-24 00:00:00 2020-04-24 00:00:00 Refill Chema Dominguez [facility] Building 1.2.840.114 350.1.13.10 4.2.7.2.686 [id number] 220 [id number] [facility] 2020-02-15 00:00:00 2020-02-15 00:00:00 Refill Chema Dominguez [facility] Building 1.2.840.114 350.1.13.10 4.2.7.2.686 [id number] 220 [id number] [facility] 2020-02-11 00:00:00 2020-02-11 00:00:00 Refill Fiona [facility] 1.2840.114 350.1.13.10 4.2.7.2.686 [id number] 220 [id number] [facility] 2020-01-29 09:00:00 2020-01-29 09:00:00 Outpatient R CHEMA DOMINGUEZ [facility] [id number] [facility] 2020-01-28 00:00:00 2020-01-28 00:00:00 Orders Only Fiona Felix [facility] 1.2.840.114 350.1.13.10 4.2.7.2.686 [id number] [facility] 2020-01-27 00:00:00 2020-01-27 00:00:00 Telephone Chema Dominguez [facility] 1.2.840.114 350.1.13.10 4.2.7.2.686 [id number] 220 [id number] [facility] 2019-12-28 00:00:00 2019-12-28 00:00:00 Refill Chema Dominguez [facility] 1.2.840.114 350.1.13.10 4.2.7.2.686 [id number] 220 [id number] [facility] 2019-12-28 00:00:00 2019-12-28 00:00:00 Refill Chema Dominguez [facility] 1.2.840.114 350.1.13.10 4.2.7.2.686 [id number] 220 [id number] 2019-07-28 08:45:00 2019-07-28 08:45:00 Outpatient R [facility] [id number] [facility] 2019-07-24 08:17:11 2019-07-24 11:47:51 Telemedici ne Visit Chema Dominguez [facility] 1.2.840.114 350.1.13.10 4.2.7.2.686 [id number] 220 [id number] [facility] 2019-07-24 08:17:11 2019-07-24 11:47:51 Telemedici ne Visit Chema Dominguez [facility] Building 1.2840.114 350.1.13.10 4.2.7.2.686 [id number] 220 [id number] 2019-07-24 10:30:00 2019-07-24 10:30:00 Outpatient R CHEMA DOMINGUEZ [facility] [id number] [facility] 2019-07-10 00:00:00 2019-07-10 00:00:00 Refill Isidro [facility] 1.2840.114 350.1.13.10 4.2.7.2.686 [id number] 220 [id number] [facility] 2019-07-10 00:00:00 2019-07-10 00:00:00 Refill Isidro [facility] 1.2840.114 350.1.13.10 4.2.7.2.686 [id number] 220 [id number] 2019-05-20 08:37:33 2019-05-20 13:26:38 Telemedici ne Visit Isidro [facility] 1.2840.114 350.1.13.10 4.2.7.2.686 [id number] 220 [id number] [facility] 2019-05-20 08:37:33 2019-05-20 13:26:38 Telemedici ne Visit Isidro [facility] 1.2840.114 350.1.13.10 4.2.7.2.686 [id number] 220 [id number] 2019-05-20 09:30:00 2019-05-20 09:30:00 Outpatient R ISIDRO [facility] [id number] [facility] 2019-05-20 00:00:00 2019-05-20 00:00:00 Telephone Isidro [facility] Building 1.2.840.114 350.1.13.10 4.2.7.2.686 [id number] 220 [id number] [facility] 2019-05-20 00:00:00 2019-05-20 00:00:00 Telephone Isidro [facility] Building 1.2.840.114 350.1.13.10 4.2.7.2.686 [id number] 220 [id number] 2019-05-19 14:15:00 2019-05-19 14:15:00 Outpatient R ISIDRO [facility] [id number] [facility] 2019-05-17 00:00:00 2019-05-17 00:00:00 Refill Isidro [facility] Building 1.2.840.114 350.1.13.10 4.2.7.2.686 [id number] 220 [id number] [facility] 2019-05-17 00:00:00 2019-05-17 00:00:00 Refill Nicole [facility] Building 1.2.840.114 350.1.13.10 4.2.7.2.686 [id number] 220 [id number] [facility] 2019-05-17 00:00:00 2019-05-17 00:00:00 Refill Isidro [facility] Building 1.2.840.114 350.1.13.10 4.2.7.2.686 [id number] 220 [id number] 2019-05-17 00:00:00 2019-05-17 00:00:00 Refill Nicole Andrea [facility] Building 1.2.840.114 350.1.13.10 4.2.7.2.686 [id number] 220 [id number] 2019-05-15 00:00:00 2019-05-15 00:00:00 Refill Isidro [facility] Building 1.2840.114 350.1.13.10 4.2.7.2.686 [id number] 220 [id number] 2019-05-15 00:00:00 2019-05-15 00:00:00 Refill Isidro [facility] Building 1.2840.114 350.1.13.10 4.2.7.2.686 [id number] 220 [id number] [facility] 2019-04-28 00:00:00 2019-04-28 00:00:00 Refill Andrea, Nicole [facility] 1.2840.114 350.1.13.10 4.2.7.2.686 [id number] 220 [id number] 2019-04-28 00:00:00 2019-04-28 00:00:00 Refill Andrea, Nicole [facility] 1.2840.114 350.1.13.10 4.2.7.2.686 [id number] 220 [id number] [facility] 2019-04-24 00:00:00 2019-04-24 00:00:00 Refill Isidro [facility] Building 1.2840.114 350.1.13.10 4.2.7.2.686 [id number] 220 [id number] 2019-04-24 00:00:00 2019-04-24 00:00:00 Refill Isidro [facility] Building 1.2840.114 350.1.13.10 4.2.7.2.686 [id number] 220 [id number] [facility] 2019-04-12 21:42:00 2019-04-12 21:42:00 [facility] [id number] [facility] 2019-04-09 10:45:00 2019-04-09 10:45:00 [facility] [id number] [facility] 2019-04-03 00:00:00 2019-04-03 00:00:00 Refill Fiona Felix [facility] Building 1.2.840.114 350.1.13.10 4.2.7.2.686 [id number] 220 [id number] 2019-04-03 00:00:00 2019-04-03 00:00:00 [facility] Building 1.2.840.114 350.1.13.10 4.2.7.2.686 [id number] 220 [id number] [facility] 2018-11-05 15:00:00 2018-11-05 15:00:00 Outpatient ARIES GUTIERREZ [facility] [id number] [facility] 2018-10-30 00:00:00 2018-10-30 00:00:00 Telephone Fiona Felix [facility] Building 1.2.840.114 350.1.13.10 4.2.7.2.686 [id number] 220 [id number] 2018-10-30 00:00:00 2018-10-30 00:00:00 [facility] Building 1.2.840.114 350.1.13.10 4.2.7.2.686 [id number] 220 [id number] [facility] 2018-09-19 00:00:00 2018-09-19 00:00:00 Refill Nicole Andrea [facility] Building 1.2.840.114 350.1.13.10 4.2.7.2.686 [id number] 220 [id number] 2018-09-19 00:00:00 2018-09-19 00:00:00 Nicole Zaidi [facility] 1.2.840.114 350.1.13.10 4.2.7.2.686 [id number] 220 [id number] [facility] 2018-08-06 11:09:00 2018-08-06 11:09:00 [facility] [id number] [facility] 2018-04-23 01:12:00 2018-04-23 01:12:00 [facility] [id number] [facility] 2018-04-22 16:00:00 2018-04-22 16:00:00 [facility] [id number] [facility] 2017-10-29 09:06:00 2017-10-29 09:06:00 [facility] Medicine [id number] [facility] 2017-10-25 23:08:00 2017-10-25 23:08:00 [facility] [id number] [facility] 2017-10-25 15:00:00 2017-10-25 15:00:00 [facility] [id number] [facility] Results Test Description Test Time Test Comments Results Result Co mments Source [facility]/O SPECIFIC VREQODI3657-16-55 21:40:00* Test Item Value Reference Range Interpretation [...] = 3257) negative Negative - Negati ve [facility] 04:53:45* Test Item Value Reference Range Interpretation Comme nts MAGNESIUM (test code = 8072457338) 2.1 mg/dL 1.7-2.4 Lab Interpretation (test cod e = 50405-0) Normal [facility] (03764)2022-09-17 04:53:25* Test Item Value Reference Range Interpretation Comme nts NA (test code = 8190075615) 142 mmol/L 135-145 K (test code = 1827832771) 4.0 mmol/L 3.5-5.0 CL (test code = 0076994880) 113 mmol/L 98-108 H CO2 TOTAL (test code = 2615642175) 26 mmol/L 23-31 AGAP (test code = 8527005867) 3 2-16 BUN (test code = 8634445463) 17 mg/dL 7-23 GLUCOSE (test code = 0547560875) 83 mg/dL 70-110 CREATININE (test code = 5838184929) 0.75 mg/dL 0.50-1.04 TOTAL BILI (test code = 5356483891) 0.3 mg/dL 0.1-1.1 CALCIUM (test code = 3150156014) 8.2 mg/dL 8.6-10.6 L T PROTEIN (test code = 0013498247) 6.6 g/dL 6.3-8.2 ALBUMIN (test code = 6699023350) 3.7 g/dL 3.5-5.0 ALK PHOS (test code = 8392951260) 68 U/L 34-122 ALTv (test code = 1742-6) 10 U/L 5-35 AST(SGOT) (test code = 7934202962) 12 U/L 13-40 L eGFR (test code = 8421498637) 84.3 mL/min/1.73m2 GRIFFIN (test code = GRIFFIN) [...] imaging tests). Lab Interpretation (test code = 47111-5) [facility] YHAG6006-68-49 04:46:00* Test Item Value Reference Range Interpretation Comme nts POCT PREG (test code = 1605) Negative On board controls acceptable with C Line (test code = 3574) Yes POCT PREG LOT # (test code = 3574) 729760 POCT PREG TEST DATE ( test code = 3576) 02-07-2024 Lab Interpretation (test cod e = 92856-8) Normal [facility] WITH NROV0244-34-64 04:41:49* Test Item Value Reference Range Interpretation Comme nts WBC (test code = 6690-2) 7.73 See_Comment [Automated [employer] ED01] The system which generated this result transmitted reference range: 4.30 - 11.10 10*3/?L. The reference range was not used to interpret this result as normal/abnormal. RBC (test code = 789-8) 3.69 See_Comment L [Automated [employer] ED01] The system which generated this result transmitted [...] 31.9 g/dL 31.6-35.1 RDW-SD (test code = 99233-0) 45.2 fL 39.0-49.9 RDW-CV (test code = 788-0) 14.3 % 12.0-15.5 PLT (test code = 777-3) 204 See_Comment [Automated [employer] ge] The system which generated this result transmitted reference range: 166 - 358 10*3/?L. The reference range was not used to interpret this result as normal/abnormal. MPV (test code = 40516-7) 10.2 fL 9.5-12.9 NRBC/100 WBC (test code = 8884871709) 0.0 See_Comment [Automated [employer] ssage] The system which generated this result transmitted reference range: 0.0 - 10.0 /100 WBCs. The reference range was not used to interpret this result as normal/abnormal. NRBC x10^3 (test code = 2985376705) See_Comment [Automated [employer] ge] The system which generated this result transmitted reference range: 10*3/?L. The reference range was not used to interpret this result as normal/abnormal. GRAN MAT (NEUT) % (test code = 770-8) 70.4 % IMM GRAN % (test code = 4061293357) 0.50 % LYMPH % (test code = 736-9) 19.8 % MONO % (test code = 5905-5) 7.6 % EOS % (test code = 713-8) 1.4 % BASO % (test code = 706-2) 0.3 % GRAN MAT x10^3(ANC) (test code = 1031819969) 5.44 10*3/uL 1.88-7.09 IMM GRAN x10^3 (test code = 3078745128) 0.04 10*3/uL 0.00-0.06 LYMPH x10^3 (test code = 731-0) 1.53 10*3/uL 1.32-3.29 MONO x10^3 (test code = 742-7) 0.59 10*3/uL 0.33-0.92 EOS x10^3 (test code = 711-2) 0.11 10*3/uL 0.03-0.39 BASO x10^3 (test code = 704-7) 0.01-0.07 Lab Interpretation (test code = 86157-7) Abnormal [facility] (86358)2022-09-05 04:19:50* Test Item Value Reference Range Interpretation Comme nts NA (test code = 3820562376) 138 mmol/L 135-145 K (test code = 9770275472) 4.5 mmol/L 3.5-5.0 CL (test code = 3472012575) 107 mmol/L 98-108 CO2 TOTAL (test code = 6817929661) 26 mmol/L 23-31 AGAP (test code = 7006232349) 5 2-16 BUN (test code = 7669348711) 13 mg/dL 7-23 GLUCOSE (test code = 6405293250) 97 mg/dL 70-110 CREATININE (test code = 5415553085) 0.71 mg/dL 0.50-1.04 TOTAL BILI (test code = 8981256995) 0.6 mg/dL 0.1-1.1 CALCIUM (test code = 1615448648) 9.1 mg/dL 8.6-10.6 T PROTEIN (test code = 6779609149) 7.1 g/dL 6.3-8.2 ALBUMIN (test code = 8209956854) 4.2 g/dL 3.5-5.0 ALK PHOS (test code = 5764721642) 84 U/L 34-122 ALTv (test code = 1742-6) 15 U/L 5-35 AST(SGOT) (test code = 7485044427) 14 U/L 13-40 eGFR (test code = 5695254133) 89.8 mL/min/1.73m2 GRIFFIN (test code = GRIFFIN) [...] or urine or abnormalities in imaging tests). [facility] WITH HIHF6028-88-97 03:49:48* Test Item Value Reference Range Interpretation Comme nts WBC (test code = 6690-2) 8.89 See_Comment [Automated [employer]] The system which generated this result transmitted reference range: 4.30 - 11.10 10*3/?L. The reference range was not used to interpret this result as normal/abnormal. RBC (test code = 789-8) 4.01 See_Comment [Automated [employer]] The system which generated this result transmitted [...] g/dL 31.6-35.1 L RDW-SD (test code = 07577-5) 46.2 fL 39.0-49.9 RDW-CV (test code = 788-0) 14.1 % 12.0-15.5 PLT (test code = 777-3) 299 See_Comment [Automated [employer] ge] The system which generated this result transmitted reference range: 166 - 358 10*3/?L. The reference range was not used to interpret this result as normal/abnormal. MPV (test code = 59466-2) 10.5 fL 9.5-12.9 NRBC/100 WBC (test code = 3559491608) 0.0 See_Comment [Automated [employer] ssage] The system which generated this result transmitted reference range: 0.0 - 10.0 /100 WBCs. The reference range was not used to interpret this result as normal/abnormal. NRBC x10^3 (test code = 4795127669) See_Comment [Automated [employer] ge] The system which generated this result transmitted reference range: 10*3/?L. The reference range was not used to interpret this result as normal/abnormal. GRAN MAT (NEUT) % (test code = 770-8) 83.0 % IMM GRAN % (test code = 5997433879) 0.60 % LYMPH % (test code = 736-9) 10.5 % MONO % (test code = 5905-5) 4.9 % EOS % (test code = 713-8) 0.8 % BASO % (test code = 706-2) 0.2 % GRAN MAT x10^3(ANC) (test code = 4831763139) 7.38 10*3/uL 1.88-7.09 H IMM GRAN x10^3 (test code = 0695456908) 0.05 10*3/uL 0.00-0.06 LYMPH x10^3 (test code = 731-0) 0.93 10*3/uL 1.32-3.29 L MONO x10^3 (test code = 742-7) 0.44 10*3/uL 0.33-0.92 EOS x10^3 (test code = 711-2) 0.07 10*3/uL 0.03-0.39 BASO x10^3 (test code = 704-7) 0.01-0.07 Lab Interpretation (test code = 25400-5) Ab[facility] Ovvn7126-47-40 12:22:00* Test Item Value Reference Range Interpretation Comme nts POCT PREG (test code = 1605) Negative On board controls acceptable with C Line (test code = 3574) Yes POCT PREG LOT # (test code = 3575) 304864 POCT PREG TEST DATE ( test code = 3576) 42009 Lab Interpretation (test cod e = 73003-4) Normal [facility] Mujp4831-94-54 12:22:00* Test Item Value Reference Range Interpretation Comme nts POCT PREG (test code = 1605) Negative On board controls acceptable with C Line (test code = 3574) Yes POCT PREG LOT # (test code = 3575) 900882 POCT PREG TEST DATE ( test code = 3576) 09034 Lab Interpretation (test cod e = 81182-3) Normal [facility]. METABOLIC PANEL (61705)2022-07-28 22:53:38* Test Item Value Reference Range Interpretation Comme nts NA (test code = 7774708254) 139 mmol/L 135-145 K (test code = 6029763572) 3.6 mmol/L 3.5-5.0 CL (test code = 3393131806) 107 mmol/L 98-108 CO2 TOTAL (test code = 0613661322) 25 mmol/L 23-31 AGAP (test code = 6943272394) 7 2-16 BUN (test code = 3106457020) 14 mg/dL 7-23 GLUCOSE (test code = 4611897988) 97 mg/dL 70-110 CREATININE (test code = 5966872929) 0.73 mg/dL 0.50-1.04 TOTAL BILI (test code = 0501065257) 0.6 mg/dL 0.1-1.1 CALCIUM (test code = 7617686750) 9.0 mg/dL 8.6-10.6 T PROTEIN (test code = 2999474986) 6.8 g/dL 6.3-8.2 ALBUMIN (test code = 7527658896) 4.1 g/dL 3.5-5.0 ALK PHOS (test code = 8696731121) 75 U/L 34-122 ALTv (test code = 1742-6) 13 U/L 5-35 AST(SGOT) (test code = 4946675117) 12 U/L 13-40 L eGFR (test code = 3168981404) 87.0 mL/min/1.73m2 GRIFFIN (test code = GRIFFIN) [...] imaging tests). Lab Interpretation (test code = 41454-4) Abnormal [facility] WITH PVWC8420-80-64 22:41:58* Test Item Value Reference Range Interpretation [...] 33.4 g/dL 31.6-35.1 RDW-SD (test code = 72280-0) 43.9 fL 39.0-49.9 RDW-CV (test code = 788-0) 13.8 % 12.0-15.5 PLT (test code = 777-3) 225 See_Comment [Automated messa ge] The system which generated this result transmitted reference range: 166 - 358 10*3/?L. The reference range was not used to interpret this result as normal/abnormal. MPV (test code = 54341-0) 9.7 fL 9.5-12.9 NRBC/100 WBC (test code = 7248883470) 0.0 See_Comment [Automated [employer] ssage] The system which generated this result transmitted reference range: 0.0 - 10.0 /100 WBCs. The reference range was not used to interpret this result as normal/abnormal. NRBC x10^3 (test code = 1961305091) See_Comment [Automated messa ge] The system which generated this result transmitted reference range: 10*3/?L. The reference range was not used to interpret this result as normal/abnormal. GRAN MAT (NEUT) % (test code = 770-8) 81.5 % IMM GRAN % (test code = 8083281130) 0.40 % LYMPH % (test code = 736-9) 11.0 % MONO % (test code = 5905-5) 6.3 % EOS % (test code = 713-8) 0.5 % BASO % (test code = 706-2) 0.3 % GRAN MAT x10^3(ANC) (test code = 6980312107) 6.20 10*3/uL 1.88-7.09 IMM GRAN x10^3 (test code = 8562487419) 0.03 10*3/uL 0.00-0.06 LYMPH x10^3 (test code = 731-0) 0.84 10*3/uL 1.32-3.29 L MONO x10^3 (test code = 742-7) 0.48 10*3/uL 0.33-0.92 EOS x10^3 (test code = 711-2) 0.04 10*3/uL 0.03-0.39 BASO x10^3 (test code = 704-7) 0.01-0.07 Lab Interpretation (test code = 27993-4) [facility] HEMOGLOBIN A1C JWWV0955-81-92 17:58:00* Test Item Value Reference Range Interpretation Comme [facility] POCT HBA1C (test code = 4548-4) 4.8 % 4-6 [facility] HEMOGLOBIN A1C VZJZ2894-43-82 17:58:00* Test Item Value Reference Range Interpretation Comme [facility] POCT HBA1C (test code = 4548-4) 4.8 % 4-6 [facility] Notes Date/Time Note Provider Source 2023-05-27 09:15:50 E503B5nzlEHsdy9SFUTbCYOzosXhQrquMMN hnxPTdhZGMcT6xvQrTpR[facility]/3ZR93285-8 05-26T09:15:50 Last Refilled:LEVOTHYROXINE 125 mcg tablet 90 tablet 1 12/02/2022 -- NoSig: TAKE 1 TABLET BY MOUTH EVERY DAY IN THE MORNINGSent to pharmacy as: levothyroxine 125 mcg tablet (SYNTHROID)Class: eRXRoute: OralOrder: [id number]/Time Signed: 12/02/2022 08:40E-Prescribing Status: Receipt confirmed by [...] authorizing provider and meeting all other requirements 91749-4Tfapjgenj encounter FhqcJC1453-23-69H63:16:41Telephone encounter NoteTXT1.2.840.816405.1.13.104.2.7. 2.645760|[id number] for patient ikga03880-7TkheYAMPQBSFDKIWzphxbdao C-CDA narrative gbtl659650483Fzvsqp [address] Ll[id number] 9WFRIQZTBDCBWMUMFYBWZSL4741-90-86C6 9:16:411.2.840.288010.1.72.3.15|1.2 .840.669947.1.13.104.2.7.2.727879_2 [id number] Laxmi Parra [facility] 2023-03-04 14:21:21 WDym9rSd+7KIdNfpUaovLRNsOPXCygA1r1S Cokv7jabcqfVizCsJF3yl1+/HL6I46427-4 03-04T14:21:21 Images from the original note were not included.Last Refilled: 03/04/22Notes:[facility] [address]: Rzhjcg VisitsDate Type Provider Dept1 Office Visit Faye [...] month ago (01/28/2023) by DANIEL Rubyeurology: Anticonvulsants-Topiramate Xbobrc2403/02/2023 06:10 PMProtocol Details status completedManual Review: Forward refill prescription to provider if patient has had any seizure activity or since last office visitTopiramate in normal range and within 360 daysValid encounter within last 12 monthsTo be filled at: [id number] [place] [place] - [address] [address]-0Spbveuojs encounter JfutFD7969-69-43G76:22:36Telephone encounter NoteTXT1.2.840.831540.1.13.104.2.7. 2.641777|[id number] for patient xqoa25324-1ZvsrLVGEHGHSFXNSharmczfb C-CDA narrative zpeh211712085Edhdfy L Corley [address] Mu[id number] 3KUNUFAIEDBRACEOFFEFYOD4665-80-13U3 4:22:361.2.840.216653.1.72.3.15|1.2 .840.703834.1.13.104.2.7.2.727879_1 [id number] Alexus Corley [facility] 2022-10-22 13:49:05 Kd4FI3IWh4ls+PMnOTO7XjgiVzu6vGw2Thw j2xEI2j4d/3myvQ91GGKRZfcB8JPZ8476-7 3:49:05 Images from the original note were [...] last 12 months To be filled at: [facility]/pharmacy #[id number] - [address] AT [facility] Recent VisitsDate Type Provider Dept 09/04/22 Office Visit Faye Napoles FNP [facility] Showing recent visits within past 540 days with a meds authorizing provider and meeting all other requirementsFuture AppointmentsDate Type Provider Dept 03/07/23 Appointment Faye Napoles FNP [facility] Showing future appointments within next 150 days with a meds authorizing provider and meeting all other requirements 90032-9Ogqvyhppc encounter DqmfLW0788-94-34R14:50:04Telephone encounter NoteTXT1.2.840.260394.1.13.104.2.7. 2.885719|[id number] for patient cblv90586-4DzhjDD151911486Rgpqauo M Fisher [id number] 4AFLAEZQKLTCFUSIORARWGQ8798-00-07F9 3:50:041.2.840.104442.1.72.3.15|1.2 .840.464015.1.13.104.2.7.2.727879_1 [id number] Kaye Moore [facility] 2022-10-18 16:00:38 ylmIpakamala/XEJ8r3fNdcWs3VfZ3zp5zG4+ozS JvfQaCs7/jmWFmUyL0DhSldW6pN7R4570-2 6:00:38 [facility] 08/17/22NOV 01/21/23Per [facility] note:-- Continue Phentermine 37.5 mg daily, tolerates well, weight remains unchanged from [facility] at 254 lbs. 50443-3Wjoygvpnl encounter WgpyUB5966-16-87N80:03:47Telephone encounter NoteTXT1.2.840.209933.1.13.104.2.7. 2.028995|3374618696EMKjyywqbpe for patient eofm51939-9UvwpMX467265664Ogft D Jetton [id number] 0PYDOFUESHPTRDLLXPUJIZR0135-16-66A8 6:03:471.2.840.785773.1.72.3.15|1.2 .840.578093.1.13.104.2.7.2.727879_1 [id number] Bibiana EVANSN [facility] 2022-10-18 15:44:34 iAH0k/QLT4+Dc9QpvedF/RmqUABF5F1qkqj dJafVDQEZWu5k7HgbJrXT0bTUvf4G8575-2 5:44:34 Pt is requesting a refill on RX. phentermine 37.5 mg capsule 85230-1Aaxsfpzgs encounter PwfuTQ7199-65-51U45:49:08Telephone encounter NoteTXT1.2.840.673157.1.13.104.2.7. 2.644987|[id number] for patient egjy91457-3AcaqPT511666372Majhzhuzj [address] KyqhQtdjefauoQoilegchfKYAT540240502 8SHLNLNXTGUIUMQVZQRFMHI2110-48-33Z8 5:49:081.2.840.110166.1.72.3.15|1.2 .840.649957.1.13.104.2.7.2.727879_1 [id number] Yvette Senior [facility] 2022-10-15 11:18:46 /dsbHtz047sJvLfG4wM1BEPCTCW0CQLUUbJ 6IytywZdwp5nfU9reOw09Eo8yUBkq7729-2 1:18:46 Images from the original note were [...] last 12 months To be filled at: [facility]/pharmacy #[id number] - [place], [place] - [address] [facility] Recent VisitsDate Type Provider Dept 09/04/22 Office Visit Faye Napoles FNP [facility] Showing recent visits within past 540 days with a meds authorizing provider and meeting all other requirementsFuture AppointmentsDate Type Provider Dept 03/07/23 Appointment Faye Napoles FNP [facility] Showing future appointments within next 150 days with a meds authorizing provider and meeting all other requirements 44362-3Toezjfjfu encounter QmlqZN6844-56-25O85:21:13Telephone encounter NoteTXT1.2.840.698722.1.13.104.2.7. 2.925137|[id number] for patient vxwq23436-2VqodAO265663846Rgjdqu J Medina [address] Hgkk[id number] 1MASYFFJROYQMRLDZGAYOLX4393-36-25D3 1:21:131.2.840.228452.1.72.3.15|1.2 .840.207474.1.13.104.2.7.2.727879_1 [id number] Lee Ann Kerns MA [facility] 2022-09-21 10:03:30 Mjq5DYgqFBLdotZqG3rOOwXxjAeYR9b90rt J0riHSnLS5+0ILCcDblc3EXSGq7IH9468-0 09-21T10:03:[address] Hartman 09/24/22.Ramses Crowley RN 09/21/2022 10:03 AM 87581-7Gbeteouvh encounter UyibFT3977-78-97A52:03:55Telephone encounter NoteTXT1.2.840.065545.1.13.104.2.7. 2.533005|6180581003RGXqsfgflrk for patient enbd009162112Erakklv Collins RN[id number] 4ONZBQVWMSTIPVZYIANVKRD6602-08-38C7 0:03:551.2.840.718840.1.72.3.15|1.2 .840.359724.1.13.104.2.7.2.727879_1 [id number] Ramses Crowley [facility] 2022-09-20 16:59:30 HOSfRpY6IH5o9E6ImB9JtAks6UM2mUoDVRw RsrAe/hq3x481jnPCKZm2zyFWruKJ9707-8 6:59:30 Patient notified of results from CT [...] appt scheduled.Peggy Mcneil RN 09/20/2022 4:59 PM 93563-1Tukyftsvn encounter UtreNQ2716-41-59E67:00:10Telephone encounter NoteTXT1.2.840.582325.1.13.104.2.7. 2.619798|[id number] for patient [id number] Stahl RNUT[id number] 6HFHTBEANWVUPOVPIUEMTRN7957-93-37K2 7:00:101.2.840.628304.1.72.3.15|1.2 .840.528604.1.13.104.2.7.2.727879_1 [id number] Peggy Mcneil RN [facility] 2022-09-20 16:57:00 kwbRBTud833ImcJfdfCg+mQ4cP+p0ttV1K2 k0D+l+iUsMQVQj4+Uhg5ud4CEWtSz4666-7 09-20T16:57:00 Patient notified of results from CT [...] appt scheduled.Peggy Mcneil RN 09/20/2022 4:59 PM 30103-0Rszntpmxj encounter SwyaNA5914-83-00T17:59:11Telephone encounter NoteTXT1.2.840.704393.1.13.104.2.7. 2.779658|[id number] for patient [id number] Stahl RN[address] Qx[id number] 1COCLNILLXRNYBLJYIWCJXW5391-32-93U7 6:59:111.2.840.813300.1.72.3.15|1.2 .840.155353.1.13.104.2.7.2.727879_1 [id number] Peggy Mcneil RN [facility] 2022-09-20 13:04:15 PhNA1onyiBbkRgJ9RqSX9OLHEVgair3Tf/4 JGXWBbhvprukdzSsLiaV0+TrqOx286238-0 3:04:15 Returned patients call, no answer, unable to leave voicemail.Peggy Mcneil RN 09/20/2022 1:36 PM 10923-5Cfbcuritu encounter BqyqVL9035-02-02Z86:36:18Telephone encounter NoteTXT1.2.840.937702.1.13.104.2.7. 2.260996|[id number] for patient [id number] 0VDLJMYWCWWIZTGGSFPMVEK2688-53-31H2 3:36:181.2.840.177072.1.72.3.15|1.2 .840.840623.1.13.104.2.7.2.727879_1 [id number] [facility] 2022-09-20 10:58:59 YIsjVi5vouNRagnvHv5bbBZ6pAQxDTm7r9K mrlHJ1tdvmb6ZdaEjsU52DluC+SFt1895-6 0:58:59 PT called and wanted to know what the next step going forward is going to be now that's she has been verified a hernia?Please advise 67955-8Iyayuyrsg encounter SnogNC2436-13-29X30:00:27Telephone encounter NoteTXT1.2.840.241419.1.13.104.2.7. 2.105588|[id number] for patient [id number] G OrtizU[id number] 4TJAQITMIRLGDUNCPUNWWPZ1849-93-27B4 1:00:271.2.840.279334.1.72.3.15|1.2 .840.117707.1.13.104.2.7.2.727879_1 [id number] Turner Amador [facility] 2022-09-20 07:58:03 /VWLUKbUFCxA1czJ6KhGxCea7d8qchW3oBO Hv1DLy5P35Bhs+yIz/m49IKB78VAh7194-1 07:58:03 Sending patient [employer] message. 89353-1Ykzerrieg encounter DvipVX9235-71-32J44:00:40Telephone encounter NoteTXT1.2.840.559404.1.13.104.2.7. 2.342877|[id number] for patient [id number] D Jetton [address] Mw[id number] 3VKMEWHUMXKXISRSEUVOQSK7938-86-67J1 8:00:401.2.840.854680.1.72.3.15|1.2 .840.572163.1.13.104.2.7.2.727879_1 [id number] Bibiana Rocha [facility] 2022-09-19 14:38:54 oNKpAq5C0Ck9BiNVI2PaVx9Qr/39HIBOUOf Kbd89CmqeEE2oCPnQj2HKl/op/+pV9919-7 09-19T14:38:[address] Dominguez, she is to double her dose for 3 days and then go back to her normal dose. 34110-1Vyjxccsvn encounter TagkRG9941-17-25M22:47:48Telephone encounter NoteTXT1.2.840.438587.1.13.104.2.7. 2.793315|[id number] for patient [id number] 4ARBFYCBMLJRCLPGZXOKFGJ9721-69-91W5 4:47:481.2.840.941520.1.72.3.15|1.2 .840.586648.1.13.104.2.7.2.727879_1 [id number] [facility] 2022-09-19 10:17:55 pNkYRi9Gn/ZIfFsow+pS1Pc4b5pVNDFdiWD i/SxgqzMsFYz5eWa7ZbWGH+xKFaDN9608-3 0:17:55 Spoke to patient. 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 She has been to [facility] ER and was given emergency dose of cortisol and fluids for dehydration. Still reports dizziness, dehydration, feeling like she might faint. Not sure what she needs to do. 40887-9Xlraxhdqg encounter TqgpOK4957-03-82G73:21:16Telephone encounter NoteTXT1.2.840.225054.1.13.104.2.7. 2.570534|[id number] for patient [id number] 2MNKNIHTKBUGJHLXQWVBGZP1524-15-92B5 0:21:161.2.840.495255.1.72.3.15|1.2 .840.822449.1.13.104.2.7.2.727879_1 [id number] [facility] 2022-09-19 09:54:11 iJN+E5BGkUEBKJXuqHAgPW0diF7xyXSj0xf 5BOOA0D9QEJDZfoqsiPPzrbp2hoF82142-3 09:54:11 Patient would like a nurse to call her marshall regarding her Addisons disease. 08339-0Fzrnnayok encounter AnzyBA3906-37-43Y79:56:14Telephone encounter NoteTXT1.2.840.934351.1.13.104.2.7. 2.466749|[id number] for patient cykc581362313Yzxtd K [id number] 1VHWICQRRZULRCQBTSTKOBP1804-22-79P7 9:56:141.2.840.709241.1.72.3.15|1.2 .840.471166.1.13.104.2.7.2.727879_1 [id number] Urszula Augustin [facility] 2022-09-18 16:47:44 tp1S8Jvl47Lfg3eXYc50NJTkhKu4mRJGcQL dIXblez3B1ayQWalzSF0l1UMidCD24498-0 09-18T16:47:44 Unable to leave voice mail due to inbox being full. 71956-2Khgqfpodk encounter QxasNH2505-31-64J00:48:02Telephone encounter NoteTXT1.2.840.473008.1.13.104.2.7. 2.691001|[id number] for patient [id number] 0EUSUMLRYDOQAMWWIAQMVGB1154-91-49L5 6:48:021.2.840.437063.1.72.3.15|1.2 .840.049416.1.13.104.2.7.2.727879_1 [id number] [facility] 2022-09-18 10:25:44 wmLryvlk+QUtCJZatxEGOTrSMy1zndsygWh 8M2zPxK62pZM6GytLFAdwiQUZ31Et5243-4 09-18T10:25:[address] scan results. Do not describes any incisional hernias. Describes small bilateral inguinal hernias with fat. Small left ovarian cysts but the rest is ok.Likely patient is taking longer healing and [place] [address]-7Scwzshpnk encounter GhyiSG8825-61-81D38:26:57Telephone encounter NoteTXT1.2.840.399331.1.13.104.2.7. 2.095553|[id number] for patient [address] NaymY[id number] 6SNKUMJNEZJPRCUXIBOYXVC8708-72-44Z2 0:26:571.2.840.342807.1.72.3.15|1.2 .840.895730.1.13.104.2.7.2.727879_1 [id number] [facility] 2022-09-18 10:19:26 akOHNvmZtDuaakP/VIVyqmeKvdVtUHY3rB6 NuXGvvUNOft32JrAzLR+mqo3WV4iU2913-8 7-25T10:19:26 Spoke with patient, name and verified. [...] in a crisis with her aston's disease. 06829-7Ltvmhzjcv encounter NfabQF0539-64-72Q59:22:49Telephone encounter NoteTXT1.2.840.319678.1.13.104.2.7. 2.566013|[id number] for patient [id number] 0IYWNELURHZKBVHRJUZJOWP1036-02-35A3 0:22:491.2.840.105735.1.72.3.15|1.2 .840.505712.1.13.104.2.7.2.727879_1 [id number] [facility] 2022-09-18 10:12:44 QfyoZr9PWLfU0IyoxetDsuJJ1tWtLIMeVTD MeDv8Bveo6npnLccPvZxgiuGDrOCm0940-3 09-18T10:12:44 Pt is wanting to discuss results with nurse and is wanting to know the next step. 24684-8Olspzumyc encounter VirmOZ4159-82-81F89:13:47Telephone encounter NoteTXT1.2.840.671620.1.13.104.2.7. 2.804605|[id number] for patient [id number] J Barnshaw[id number] 1TXRUVJWSHAPJDWUTJRBOSQ4870-38-80P5 0:13:471.2.840.307321.1.72.3.15|1.2 .840.141840.1.13.104.2.7.2.727879_1 [id number] Bri Broussard [facility] 2022-09-17 03:14:00 ZD+vVbH76lQ6tpj8DR1a7NQY7/TnubnjhQY 6CRQeNwmFznK0RLZ10PF6CcA+eYI34420-0 09-17T03:14:00 Awake, alert oriented X4, respiratory even [...] ER noted upon dischargePt [facility] with steady gait 20805-5Dfwpvnaec department LutdXW6136-29-87R30:07:01Emergency department NoteTXT1.2.840.517116.1.13.104.2.7. 2.882427|[id number] for patient [address] Fz[id number] 8DEEBAPLENQVJTDVLYYGIIF3719-11-26A8 4:07:011.2.840.822621.1.72.3.15|1.2 .840.410315.1.13.104.2.7.2.727879_1 [id number] [facility] 2022-09-17 01:03:03 a2HOljYRgxQ4lEw1Ih5KUv2ssAF8rdDJTDN 50v95Ar12LtU/seJIEAxBLA9O9RkI8980-5 09-17T01:03:03 Gave report to KESHAV Hernandez. [address]-0Flyjnatgc[address] LfraVC3255-47-02C12:03:20[facility] NoteTXT1.2.840.037319.1.13.104.2.7. 2.402054|[id number] for patient [id number] M Felix RN[id number] 0JPREWNJOOHKBKOYQXIBVSY5844-98-43J5 1:03:201.2.840.385026.1.72.3.15|1.2 .840.022054.1.13.104.2.7.2.727879_1 [id number] Venessa Guzman RN [facility] 2022-09-17 01:03:03 NlZcrAxgZ3WetmYiznZBay6zNz+O0O334Ev QQJni2i/W8mnH8QMMXkP6Tb2vyCo22223-5 01:03:03 Assumed care of patient, received report from KESHAV Echols. Visitor at bedside. Pt awaiting Ct-scan results. Will continue to monitor. [address]-3Rjcbqicsg[address] ZlgfLE5681-76-59O19:04:49[facility] NoteTXT1.2.840.790717.1.13.104.2.7. 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 87976-5Pqvsairor department Triage zkfuAU0104-27-77Y19:24:19Emergency department Triage noteTXT1.2.840.477860.1.13.104.2.7. 2.241037|[id number] for patient [id number] J Hoot RN[address] To[id number] 7ERNSZWJNWXAPLBCMYGGTKK0609-21-77A6 2:24:191.2.840.165805.1.72.3.15|1.2 .840.136227.1.13.104.2.7.2.727879_1 [id number] Cookie Hernandez RN [facility]
[2023-06-22] MEDS ORDERED: HYDROCORTISONE SUC 100 MG INJ ONE (19:10)
[2023-06-22] MEDS ORDERED: KETOROLAC 30 MG/ML INJ ONE (19:10)
[2023-06-22] MEDS ORDERED: ONDANSETRON 4 MG/2 ML VIAL ONE (19:10)
[2023-06-22] MEDS ORDERED: NA CHLORIDE 0.9% 1,000 ML ONE (19:10)
[2023-06-22 19:32] LABS: Specific Gravity > 1.030 (1.005-1.030); Sqamous Epithelial <5 /HPF (None Seen); Urine Bacteria None Seen /HPF (<20); Urine Bilirubin NEGATIVE (Negative); Urine Blood Negative (Negative); Urine Clarity Clear (Clear); Urine Color Yellow (Yellow); Urine Culture Reflex Order NOT NEEDED; Urine Glucose NEGATIVE (Negative); Urine Ketones TRACE (Negative); Urine Microscopic Reflex YN ORDER UMIC; Urine Mucus Slight /HPF (None Seen); Urine Nitrite NEGATIVE (Negative); Urine Protein TRACE (Negative); Urine RBC None Seen /HPF (None Seen); Urine Urobilinogen 1+ (Normal); Urine WBC <5 /HPF (<5)
[2023-06-22 19:34] LABS: Specific Gravity > 1.030 (1.005-1.030)
[2023-06-22 19:49] LABS: Absolute Eosinophils 0.1 K/uL (0-0.5); Absolute Lymphocytes (CBC) 1.5 K/uL (0.7-4.9); Absolute Monocytes 0.5 K/uL (0.1-1.3); Absolute Neutrophil 6.3 K/uL (1.8-8.0); Basophils % 0.4 % (0-1.3); Eosinophils % 1.6 % (0-4.4); Hematocrit 33.1 % (36.0-45.0); Hemoglobin 11.1 g/dL (12.0-15.0); Lymphocytes % 17.9 % (15.3-44.8); MCH 28.2 pg (27.0-35.0); MCHC 33.6 g/dL (32.0-36.0); MCV 83.9 fL (80-100); MPV 7.5 fL (7.6-11.3); Monocytes % 6.3 % (3.3-12.3); Neutrophils % 73.8 % (41.7-73.7); Platelets 278 thou/uL (152-406); RBC Red Blood Cell Count 3.95 M/uL (3.86-4.86)
[2023-06-22 19:50] LABS: Albumin 3.8 g/dL (3.4-5.0); Albumin/Globulin Ratio 1.1 (1.1-1.8); Anion Gap 5.5 mEq/L (5.0-15.0); Bilirubin Total 0.4 mg/dL (0.2-1.0); Globulin 3.6 g/dL (2.3-3.5); Potassium 3.5 mEq/L (3.5-5.1); Protein, Total 7.4 g/dL (6.4-8.2)
[2023-06-22] MEDS ORDERED: MORPHINE 4 MG/ML SYR ONE (20:12)
--- NOTE | 2023-06-22 20:20 | RAD REPORT ---
EXAM DESCRIPTION: CTAbdomen Pelvis W Contrast - 06/22/2023 8:13 pm CLINICAL HISTORY: Abdominal pain. ABD PAIN COMPARISON: Abdomen Pelvis W Contrast dated 06/11/2023; Abdomen Pelvis W Contrast dated 09/24/2022 ; Abdomen Pelvis W Contrast dated 08/20/2021; Abdomen Pelvis W Contrast dated 05/13/2018 TECHNIQUE: Biphasic CT imaging of the abdomen and pelvis was performed with 100 ml non-ionic IV cont rast. All CT scans are performed using dose optimization technique as appropriate and may include automated exposure control or mA/KV adjustment according to patient size. FINDINGS: The lung bases are clear.Cholecystectomy clips. The liver contains a small cyst. The spleen, pancreas, adrenal glands and kidneys are within normal l imits. No bowel obstruction, free air, free fluid or abscess. The appendix is normal. No evidence of signi ficant lymphadenopathy. No suspicious bony findings. IMPRESSION: No acute intra-abdominal or pelvic finding.
--- NOTE | 2023-06-22 20:43 | ER ---
Nurse's Notes [facility] Name: Lavinia Jarrett Age: 42 yrs Sex: Female : 1980 Arrival Date: 06/22/2023 Time: 18:51 Bed 6 Private MD: Diagnosis: Low back pain;Abdominal pain, Generalized Presentation: 06/21 19:00 Chief complaint: Patient states: lower abdominal pain of 10 that radiates to right pf1 flank,onset 2 weeks ago, worse in the past 2 days, Patient stated was diagnosed here with kidney infection and did completed her antibiotics. Patient stated has fallen twice in since yesterday due to dizziness. Patient stated has not been taking her Roseau's medication as directed. 19:00 Coronavirus screen: Client denies travel out of the [place] in the last 14 days. At this pf1 time, the client does not indicate any symptoms associated with coronavirus-19. Ebola Screen: Patient negative for fever greater than or equal to 101.5 degrees Fahrenheit, and additional compatible Ebola Virus Disease symptoms. Initial Sepsis Screen: Does the patient meet any 2 criteria? No. Patient's initial sepsis screen is negative. Does the patient have a suspected source of infection? No. Patient's initial sepsis screen is negative. Risk Assessment: Do you want to hurt yourself or someone else? Patient reports no desire to harm self or others. Onset of symptoms was June 20, 2023. 19:00 Method Of Arrival: Ambulatory pf1 19:00 Acuity: KIKA 3 pf1 Triage Assessment: 19:00 General: Appears in no apparent distress. comfortable, obese, well groomed, well pf1 developed, Behavior is calm, cooperative, appropriate for age, quiet. 19:00 Pain: Complains of pain in lower abdominal pain that radiates to right flank. GI: pf1 Abdomen is round non-distended, Reports lower abdominal pain. Musculoskeletal: Reports pain in right flank. 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 - Infectious Disease History:: Denies. - Social history:: Smoking status: Patient reports the use of cigarette tobacco products, denies chronic smoking, but will smoke occasionally, Reported history of juuling and/or vaping. Patient/guardian denies using alcohol, street drugs. Screenin:26 [facility] ED Fall Risk Assessment (Adult) History of falling in the last 3 months, cm10 including since admission Yes- fall prone (multiple falls) (3 pts) Confusion or Disorientation No (0 pts) Intoxicated or Sedated No (0 pts) Impaired Gait No (0 pts) Mobility Assist Device Used No (0 pt) Altered Elimination No (0 pt) Score/Fall Risk Level 3 or more points = High Risk Oriented to surroundings, Maintained a safe environment, Hourly rounding (assess needs \T\ fall precautionary measures) done, Used ambulatory aids as needed (educated on \T\ assisted with). Abuse screen: Denies threats or abuse. Denies injuries from another. Nutritional screening: No deficits noted. Tuberculosis screening: No symptoms or risk factors identified. Assessment: 19:25 General: Appears in no apparent distress. comfortable, Behavior is calm, cooperative. cm10 Pain: Complains of pain in right lower quadrant and suprapubic area Pain radiates to low back area Pain currently is 10 out of 10 on a pain scale. Quality of pain is described as aching, sharp, shooting, throbbing. Neuro: No deficits noted. Level of Consciousness is awake, alert, obeys commands, Oriented to person, place, time, situation. Respiratory: No deficits noted. Airway is patent Respiratory effort is even, unlabored, Respiratory pattern is regular, symmetrical. GI: Bowel sounds present X 4 quads. Abd is soft X 4 quads Abdomen is tender to palpation in right lower quadrant and left lower quadrant. : Reports burning with urination, urinary frequency. EENT: No deficits noted. No signs and/or symptoms were reported regarding the EENT system. Vital Signs: 19:00 BP 127 / 85; Pulse 65; Resp 16; Temp 97.9; Pulse Ox 100% on R/A; Weight 105.23 kg; pf1 Height 5 ft. 5 in. ; Pain 10/10; 20:47 BP 153 / 93; Pulse 63; Resp 16; Pulse Ox 99% on R/A; cm10 19:00 Body Mass Index 38.61 (105.23 kg, 165.1 cm) pf1 19:00 Pain Scale: Adult pf1 ED Course: 18:53 Patient arrived in ED. im 18:53 Diana Garcia FNP-C is [facility]. kb 18:53 Augustine Saucedo MD is Attending Physician. kb 19:03 Comfort Hess, KESHAV is Primary Nurse. cm10 19:15 Triage completed. pf1 19:24 CBC with Diff Sent. cm10 19:24 CMP Sent. cm10 19:24 Lipase Sent. cm10 19:24 Test, Urine Sent. cm10 19:24 Urinalysis w/ reflexes Sent. cm10 19:24 No provider procedures requiring assistance completed. Initial lab(s) drawn, by al, cm10 sent to lab. Urine collected: clean catch specimen. Inserted saline lock: 20 gauge in right antecubital area, using aseptic technique. Blood collected. 19:26 Patient has correct armband on for positive identification. Bed in low position. Call cm10 light in reach. Side rails up X2. Provided Education on: ER process and procedures. Pulse ox on. NIBP on. Door closed. Lights dimmed. Warm blanket given. 20:[address] via wheelchair. Patient requests pain medication. cm10 20:15 CT Abd/Pelvis - IV Contrast Only In Process Unspecified. EDMS 20:17 Patient moved back from CT. cm10 21:11 IV discontinued, intact, bleeding controlled, No redness/swelling at site. Pressure cm10 dressing applied. 21:11 Arm band placed on. cm10 Administered Medications: 19:24 Drug: NS 0.9% IV 1000 ml IV at 1 bolus Per protocol; 1000 mL bolus Route: IV; Rate: 1 cm10 bolus; Site: right antecubital; 21:10 Follow up: Response: No adverse reaction; IV Status: Completed infusion; IV Intake: cm10 450ml 19:24 Drug: TORadol - Ketorolac IVP 15 mg IVP once Route: IVP; Site: right antecubital; cm10 20:06 Follow up: Response: No adverse reaction; Pain is unchanged, physician notified cm10 19:24 Drug: Ondansetron IVP 4 mg IVP once; over 2 minutes Route: IVP; Site: right antecubital;cm10 20:06 Follow up: Response: No adverse reaction cm10 19:24 Drug: Solu-CORTEF IVP 100 mg IVP once Route: IVP; Site: right antecubital; cm10 20:06 Follow up: Response: No adverse reaction cm10 20:30 Drug: morphine IVP or IV 4 mg IVP once over 4 mins Route: IVP; Infused Over: 4 mins; ha1 Site: right antecubital; 21:10 Follow up: Response: No adverse reaction cm10 Medication: 19:26 VIS not applicable for this client. cm10 Intake: 21:10 IV: 450ml; Total: 450ml. cm10 Outcome: 20:42 Discharge ordered by . iveth 21:11 Discharged to home ambulatory, with family, cm10 21:11 Condition: good 21:11 Discharge instructions given to patient, Instructed on discharge instructions, follow up and referral plans. medication usage, Demonstrated understanding of instructions, follow-up care, 21:11 Patient left the ED. cm10 Signatures: Dispatcher [employer] EDMS Diana Garcia, JUANY-C JUANY-Thea Garcia RN RN ha1 Tejal Ernandez RN RN pf1 Vianey Haley Clarissa, RN RN cm10
--- NOTE | 2023-06-22 20:43 | EDPHYS ---
Physician Documentation [facility] Name: Lavinia Jarrett Age: 42 yrs Sex: Female : 1980 Arrival Date: 06/22/2023 Time: 18:51 Bed 6 Private MD: ED Physician Augustine Saucedo HPI: 06/21 18:56 This 42 yrs old Female presents to ER via Unassigned with complaints of kb Abdominal Pain, Back Pain, Fall Injury. 18:56 Pt is a 42 year old female who presents for dysuria, frequency, urgency for 12 days. kb States she was put on antibiotics and chills, fever and headaches started going away, but she completed the antibiotics and now the symptoms have returned. 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 States she quit taking her steroids 4 months ago because she doesn't like how it makes her feel. . 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 - Infectious Disease History:: Denies. - Social history:: Smoking status: Patient reports the use of cigarette tobacco products, denies chronic smoking, but will smoke occasionally, Reported history of juuling and/or vaping. Patient/guardian denies using alcohol, street drugs. ROS: 18:56 Constitutional: As per HPI kb Exam: 18:59 Constitutional: This is a well developed, well nourished patient who is awake, alert, kb and in no acute distress. Head/Face: Normocephalic, atraumatic. ENT: Moist Mucous membranes Cardiovascular: Regular rate Respiratory: Respirations even and unlabored. No increased work of breathing. Talking in full sentences Skin: Warm, dry with normal turgor. Normal color. MS/ Extremity: Pulses equal, no cyanosis. Neurovascular intact. Full, normal range of motion. Neuro: Awake and alert, GCS 15, oriented to person, place, time, and situation. Moves all extremities. Normal gait. 18:59 Abdomen/GI: Inspection: obese Bowel sounds: normal, Palpation: soft, in all quadrants, mild abdominal tenderness, in the left lower quadrant, moderate abdominal tenderness, in the suprapubic area and right lower quadrant, 18:59 Back: CVA tenderness, that is mild, is noted on the right, Vital Signs: 19:00 BP 127 / 85; Pulse 65; Resp 16; Temp 97.9; Pulse Ox 100% on R/A; Weight 105.23 kg; pf1 Height 5 ft. 5 in. ; Pain 10/10; 20:47 BP 153 / 93; Pulse 63; Resp 16; Pulse Ox 99% on R/A; cm10 19:00 Body Mass Index 38.61 (105.23 kg, 165.1 cm) pf1 19:00 Pain Scale: Adult pf1 MDM: 18:53 Patient medically screened. kb 18:59 Data reviewed: vital signs, nurses notes. kb 20:41 Differential diagnosis: Pyelonephritis, Ureterolithiasis, urinary tract infection. kb Counseling: I had a detailed discussion with the patient and/or guardian regarding the historical points, exam findings, and any diagnostic results supporting the discharge/admit diagnosis, lab results, radiology results, the need for outpatient follow up, a family practitioner, to return to the emergency department if symptoms worsen or persist or if there are any questions or concerns that arise at home. ED course: Pt will restart her prescribed medication and follow up with PCP. . 06/21 19:01 Order name: CBC with Diff; Complete Time: 19:52 kb 06/21 19:01 Order name: CMP; Complete Time: 19:52 kb 06/21 19:01 Order name: Lipase; Complete Time: 19:52 kb 06/21 19:01 Order name: Test, Urine; Complete Time: 19:47 kb 06/21 19:01 Order name: Urinalysis w/ reflexes; Complete Time: 19:47 kb 06/21 19:01 Order name: CT Abd/Pelvis - IV Contrast Only; Complete Time: 20:22 kb 06/21 19:01 Order name: IV Saline Lock; Complete Time: 19:24 kb 06/21 19:01 Order name: Labs collected and sent; Complete Time: 19:24 kb Administered Medications: 19:24 Drug: NS 0.9% IV 1000 ml IV at 1 bolus Per protocol; 1000 mL bolus Route: IV; Rate: 1 cm10 bolus; Site: right antecubital; 21:10 Follow up: Response: No adverse reaction; IV Status: Completed infusion; IV Intake: cm10 450ml 19:24 Drug: TORadol - Ketorolac IVP 15 mg IVP once Route: IVP; Site: right antecubital; cm10 20:06 Follow up: Response: No adverse reaction; Pain is unchanged, physician notified cm10 19:24 Drug: Ondansetron IVP 4 mg IVP once; over 2 minutes Route: IVP; Site: right antecubital;cm10 20:06 Follow up: Response: No adverse reaction cm10 19:24 Drug: Solu-CORTEF IVP 100 mg IVP once Route: IVP; Site: right antecubital; cm10 20:06 Follow up: Response: No adverse reaction cm10 20:30 Drug: morphine IVP or IV 4 mg IVP once over 4 mins Route: IVP; Infused Over: 4 mins; ha1 Site: right antecubital; 21:10 Follow up: Response: No adverse reaction cm10 Disposition Summary: 06/22/23 20:42 Discharge Ordered Notes: Location: Home kb Condition: Stable kb Diagnosis - Low back pain kb - Abdominal pain, Generalized kb Followup: kb - With: Emergency Department - When: As needed - Reason: Worsening of condition Followup: kb - With: Private Physician - When: 2 - 3 days - Reason: Recheck today's complaints, Continuance of care, Re-evaluation by your physician Discharge Instructions: - Discharge Summary Sheet kb - Musculoskeletal Pain kb - Abdominal Pain, Adult, Ihrw-dy-Wgsh kb - Flank Pain, Adult, Ecgm-xs-Gwrv kb Forms: - Medication Reconciliation Form kb - Antibiotic Education kb - Prescription Opioid Use kb - Patient Portal Instructions kb - Leadership Thank You Letter kb Addendum: 06/24/2023 07:18 Co-signature as Attending Physician, Augustine Saucedo MD I reviewed the patient's care r n provided by the Advanced Practice Provider and agree with the diagnosis and treatment plan. Signatures: Dispatcher [employer] Diana Adams, BARBECUE COOK-C BARBECUE COOK-CkAugustine Richardson MD MD rn Ayala, Heidy RN RN ha1 Tejal Ernandez RN RN pf1 Comfort Hess, RN RN cm10 Corrections: (The following items were deleted from the chart) 06/21 19:02 19:02 CBC+H.LAB.BRZ ordered. EDMS EDMS 19: 19:02 COMPREHENSIVE METABOLIC PANEL+C.LAB.BRZ ordered. EDMS EDMS 19: 19:02 LIPASE+C.LAB.BRZ ordered. EDMS EDMS 19: 19:02 Test, Urine+UC.LAB.BRZ ordered. EDMS EDMS 19: 19:02 Urinalysis+U.LAB.BRZ ordered. EDMS EDMS 19:02 19:02 Abdomen Pelvis W Con+CT.RAD.BRZ ordered. EDMS EDMS
[2023-06-22 21:44] VITALS: BP 153/93; TEMP 97.9; O2SAT 99
== END 2023-06-22 21:11 | disposition home or self-care (01) ==
LOC: ER 18:51
DX: M54.50 Low back pain, unspecified (principal); R10.84 Generalized abdominal pain; E27.1 Primary adrenocortical insufficiency; Z91.040 Latex allergy status
CPT/HCPCS: 85025; 81001; 36415; 81025; 83690; 80053; 74177; Q9967; J1720; J2405; J7030; 96361; 96374; 96375; 99285

== ENCOUNTER 2023-11-11 19:01 | Emergency (ER) | payer OTHER ==
--- OUTSIDE RECORDS SUMMARY | 2023-11-11 19:10 | XMS REPORT | Continuity of Care Document ---
Author Name Unknown Address [address] [facility] [address] [place] [address] [facility] thconnect Address [address] [facility] [address] [place] [address] Care Team Providers Care Cable Installer Name Role Phone Faye Rothman Primary Care Physician [phone] Cinda Briceno Attending Clinician Unavailable PERCY ANDRADE Attending Clinician Unavailable EMILY GIL Attending Clinician Unavailable BROOKLYN HARTMAN Attending Clinician BROOKLYN Flores Attending Clinician Jl huerta Lab, Ang - Db Attending Clinician Unavailable Emily Jesus Attending Clinician [phone] KRISSY DE DIOS Attending Clinician Unavailable Faye Rothman Attending Clinician [phone] DIONNE JAVIER Attending Clinician Unavailable JOSE FRANCISCO BETH Attending Clinician Unavailable FAYE NAPOLES Attending Clinician Unavailable Doctor Unassigned, [place] Attending Clinician U MAMTA Vergara Attending Clinician Beatriz vailable Faye Rothman Attending Clinician [phone] UNKNOWN, ATTENDING Attending Clinician UnavailPercy Ortiz MD Attending Clinician [phone] JESSICA, DELA CRUZ Attending Clinician Unavailable JESSICA, DELA CRUZ Attending Clinician Unavailable KIZZY MACKEY Attending Clinician Unavail able KIZZY MACKEY Attending Clinician Unavail able Stephanie, Ang - Db Attending Clinician Unavailable TEJAL SULLIVAN Attending Clinician Unavailable Tejal Sullivan NP Attending Clinician [phone] Jose Bowen MD Attending Clinician [phone] ClaraefrainEmily Cruz Attending Clinician [phone] Marco Gayle MD Attending Clinician [phone] MARCO GAYLE Attending Clinician Unavailable MOO PARK Attending Clinician Unavailable Moo [place] Attending Clinician [phone] Jacki PARR, Pearl Herrera Attending Clinician UnaARIES Spaulding Attending Clinician Unavailable Chema Dominguez MD Attending Clinician [phone] DEBRA IRVIN Attending Clinician Unavailable Nancy Gutierrez Attending Clinician [phone] Debra Irvin MD Attending Clinician [phone] FIONA FELIX Attending Clinician Unavailable JOSE BOWEN Attending Clinician Unavailable Pob, Adc [facility] Main Attending Clinician UnavailAries Hoover PA-C Attending Clinician [phone] NANCY CANNON Attending Clinician Unavailable CHEMA DOMINGUEZ Attending Clinician UnavailJosse CUETO, Maribell Attending Clinician [phone] Senia Esparza DO Attending Clinician [phone] Fiona Felix MD Attending Clinician [phone] Nicole Andrea MD Attending Clinician FAYE Kahn Admitting Clinician Unavailable TEJAL SULLIVAN Admitting Clinician Unavailable BROOKLYN HARTMAN Admitting Clinician MOO Arthur Admitting Clinician Unavailable Payers Payer Name Policy Type Policy Number Effective Date Expirati on Date Source [facility] PL[facility] [id number] 2016 00:00:00 Problems Condition Name Condition Details Condition Category Status Onset Date Resolution Date Last Treatment Date Treating Clinician Comments Source Trichomona l vulvovagin itis Trichomona l vulvovagin itis Disease Active 5-04 00:00: 00 [facility] Vitiligo Vitiligo Disease Active 2022-02 0-19 00:00: 00 [facility] Eczema, unspecifie d type Eczema, unspecifie d type Disease Active 2022-02 0-19 00:00: 00 [facility] Hematoma Hematoma Disease Active 7 00:00: 00 [facility] Bipolar disorder Bipolar disorder Disease Active 08-30 00:00: 00 [facility] CPAP (continuou s positive airway pressure) dependence CPAP (continuou s positive airway pressure) dependence Disease Active 08-30 00:00: 00 [facility] Diverticul osis of intestine without bleeding, unspecifie d intestinal tract location Diverticul osis of intestine without bleeding, unspecifie d intestinal tract location Disease Active 08-30 00:00: 00 [facility] Gastroesop hageal reflux disease Gastroesop hageal reflux disease Disease Active 08-30 00:00: 00 [facility] History of excision of intestinal structure History of excision of intestinal structure Disease Active 08-30 00:00: 00 [facility] Insomnia, unspecifie d type Insomnia, unspecifie d type Disease Active 08-30 00:00: 00 [facility] Migraine without status migrainosu s, not intractabl e, unspecifie d migraine type Migraine without status migrainosu s, not intractabl e, unspecifie d migraine type Disease Active 08-30 00:00: 00 [facility] Mixed anxiety and depressive disorder Mixed anxiety and depressive disorder Disease Active 08-30 00:00: 00 [facility] Obstructiv e sleep apnea Obstructiv e sleep apnea Disease Active 7 00:00: 00 [facility] Graves' disease Graves' disease Disease Active 608 00:00: 00 [facility] Abdominal pain, right lower quadrant Abdominal pain, right lower quadrant Disease Active 08-02 00:00: 00 Overview: Formattin g of this note might be different from the original. Added automatic ally from request for surgery [id number] [facility] Right ovarian cyst Right ovarian cyst Disease Active 08-02 00:00: 00 Overview: Formattin g of this note might be different from the original. Added automatic ally from request for surgery [id number] [facility] Pelvic adhesive disease Pelvic adhesive disease Disease Active 05-23 00:00: 00 [facility] Old [place] disease Old [place] disease Disease Active 03-31 00:00: 00 [facility] Hydrosalpi nx Hydrosalpi nx Disease Active 03-09 00:00: 00 [facility] Cyst of maxillary sinus Cyst of maxillary sinus Disease Active 03-09 00:00: 00 [facility] Female infertilit y of unspecifie d origin Female infertilit y of unspecifie d origin Disease Active 03-09 00:00: 00 [facility] Irritable bowel syndrome with both constipati on and diarrhea Irritable bowel syndrome with both constipati on and diarrhea Disease Active 03-09 00:00: 00 [facility] Fibromyalg ia Fibromyalg ia Disease Active 2015-02 00:00: 00 [facility] Pain in joint, multiple sites Pain in joint, multiple sites Disease Active 2015-02 00:00: 00 [facility] History of adrenal insufficie ncy History of adrenal insufficie ncy Disease Active 2015-02 00:00: 00 [facility] Chronic fatigue Chronic fatigue Disease Active 2015-02 00:00: 00 [facility] Morbid obesity with body mass index (BMI) of 40.0 or higher Morbid obesity with body mass index (BMI) of 40.0 or higher Disease Active 2015-02 00:00: 00 [facility] 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 Disease Active 2015-02 00:00: 00 [facility] 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 [employer] [facility] Migraine without status migrainosu s, not intractabl e, unspecifie d migraine type Migraine without status migrainosu s, not intractabl e, unspecifie d migraine type Problem Active [facility] Obstructiv e sleep apnea Obstructiv e sleep apnea Problem Active [facility] Gallstone Gallstone Problem Active [facility] Fibromyalg ia Fibromyalg ia Problem Active [facility] Chronic pain syndrome Chronic pain syndrome Problem Active [facility] Muscle weakness Muscle weakness Problem Active [facility] Insomnia, unspecifie d type Insomnia, unspecifie d type Problem Active [facility] Bipolar disorder Bipolar disorder Problem Active [facility] Hypothyroi dism, unspecifie d type Hypothyroi dism, unspecifie d type Problem Active [facility] Depression with anxiety Depression with anxiety Problem Active [facility] Foot pain Foot pain Problem Active [facility] CPAP (continuou s positive airway pressure) dependence CPAP (continuou s positive airway pressure) dependence Problem Active [facility] Diverticul osis of intestine without bleeding, unspecifie d intestinal tract location Diverticul osis of intestine without bleeding, unspecifie d intestinal tract location Problem Active [facility] Abdominal pain, unspecifie d abdominal location Abdominal pain, unspecifie d abdominal location Problem Active [facility] Irritable bowel syndrome with constipati on Irritable bowel syndrome with constipati on Problem Active [facility] Gastroesop hageal reflux disease, esophagiti s presence not specified Gastroesop hageal reflux disease, esophagiti s presence not specified Problem Active [facility] Status post hysterecto my Status post hysterecto my Disease Resolve d 7-11 00:00: 00 2023-06-25 00:00:00 2023-06-25 10:13:59 [facility] Anogenital warts in female Anogenital warts in female Disease Resolve d 2017-02 0-02 00:00: 00 2022-08-02 00:00:00 2022-08-02 09:13:38 [facility] BV (bacterial vaginosis) BV (bacterial vaginosis) Disease Resolve d 1-17 00:00: 00 2022-08-02 00:00:00 2022-08-02 09:13:38 [facility] Morbid obesity with body mass index of 50 or higher Morbid obesity with body mass index of 50 or higher Disease Resolve d 2015-02 2-04 00:00: 00 2021-01-16 00:00:00 2021-01-16 14:16:13 [facility] Allergies, Adverse Reactions, Alerts Allergy Name Allergy Type Status Severity Reaction(s) Onset Date Inactive Date Treating Clinician Comments Source LATEX DRUG INGREDI Active High ITCHING 2015-02 0 00:00: 00 [facility] Latex Propensi ty to adverse reaction s to drug Active Itching 2015-02 00:00: 00 [facility] Social History Social Habit Start Date Stop Date Quantity Comments Source Gender identity [facility] Tobacco use and exposure 2023-10-11 00:00:00 2023-10-11 00:00:00 Smokeless tobacco non-user [facility] Alcoholic beverage intake 2023-10-11 00:00:00 2023-10-11 00:00:00 0 /d [facility] History of Social function 2023-07-19 00:00:00 2023-07-19 00:00:00 [facility] Alcohol intake 2023-06-25 00:00:00 2023-06-25 00:00:00 0 /d [facility] Exposure to SARS-CoV-2 (event) 2022-07-23 00:00:00 2022-08-02 07:35:00 Not sure [facility] Cigarettes smoked current (pack per day) - Reported 2022-08-02 00:00:00 2022-08-02 00:00:00 [facility] Tobacco Comment 2022-08-02 00:00:00 2022-08-02 00:00:00 Pt smokes 1 pack a day total of 20 cigarettes daily [facility] History of tobacco use 2005-02-25 00:00:00 Cigarette Smoker [facility] Sex assigned at 1980 00:00:00 1980 00:00:00 [facility] Smoking Status Start Date Stop Date Source Smokes tobacco daily 2023-10-11 00:00:00 [facility] Medications Ordered Medication Name Filled Medication Name Start Date Stop Date Current Medication? Ordering Clinician Indication Dosage Frequency Signature (SIG) Comments Components Source levothyroxi ne 125 mcg tablet 10-11 00:00: 00 Yes [id number] 125ug Take 1 tablet by mouth every morning. Oral Levothyrox ine should be taken in the morning on an empty stomach, preferably 60 minutes before food, drinks, or take other meds. The following need to be from the thyroid medication by at least 2 hours: calcium, antacids, iron, anything for stomach acid, or soy protein (i.e. soy milk or tofu). If you miss a dose, take it as soon as you remember. [facility] topiramate 25 mg tablet 10-10 00:00: 00 Yes [id number] 50mg Take 2 tablets by mouth in the morning. [facility] levothyroxi ne 125 mcg tablet 10-01 00:00: 00 10-11 00:00 :00 No [id number] 125ug Take 1 tablet by mouth every morning. MUST BE SEEN FOR FURTHER REFILLS [facility] metroNIDAZO LE (FLAGYL) 500 mg tablet 06-28 00:00: 00 Yes [id number] 500mg Take 1 tablet by mouth every 12 (twelve) hours. [facility] oxcarbazepi ne (TRILEPTAL ORAL) 06-24 09:25: 16 Yes Take by mouth. [facility] fluconazole 150 mg tablet 06-24 00:00: 00 06-25 04:59 :00 No [id number] 150mg Take 1 tablet by mouth once now for 1 dose. [facility] levothyroxi ne 125 mcg tablet 06-23 00:00: 00 10-01 00:00 :00 No [id number] 125ug Take 1 tablet by mouth every morning. Must get labs done. [facility] triamcinolo ne acetonide 0.1 % ointment 06-12 00:00: 00 Yes [id number] Apply to area(s) 2 (two) times daily. [facility] levothyroxi ne 125 mcg tablet 05-26 00:00: 00 06-23 00:00 :00 No [id number] 125ug Take 1 tablet by mouth every morning. [facility] hydrocortis one 10 mg tablet 03-04 00:00: 00 Yes [id number] Take 1 tablet in the morning and half tablet at night [facility] hydrocortis one sod succ (SOLU-AMY F) 100 mg injection 03-04 00:00: 00 Yes [id number] 100mg 2 mL by Intramuscu lar route as needed (for when patient is unconsciou s). [facility] phentermine 37.5 mg capsule 03-04 00:00: 00 Yes [id number] 104 37.5mg Take 1 capsule by mouth every morning. [facility] Syringe, Disposable, 3 mL Syrg 03-04 00:00: 00 Yes [id number] Use as directed once [facility] Needle, Disp, 21 G 21 gauge x 1 1/2" Ndle 03-04 00:00: 00 Yes [id number] Use as directed [facility] topiramate 25 mg tablet 03-04 00:00: 00 10-10 00:00 :00 No [id number] 50mg Take 2 tablets by mouth in the morning. [facility] topiramate 25 mg tablet 2022-02 00:00: 00 03-04 00:00 :00 No [id number] 50mg Take 2 tablets by mouth in the morning. [facility] triamcinolo ne acetonide 0.1 % ointment 2022-02 00:00: 00 Yes [id number] Apply to area(s) 2 (two) times daily. [facility] LEVOTHYROXI NE 125 mcg tablet 2022-02 00:00: 00 05-25 00:00 :00 No [id number] 125ug TAKE 1 TABLET BY MOUTH EVERY DAY IN THE MORNING [facility] rOPINIRole 1 mg tablet 2022-02 0-05 16:29: 29 11-29 00:00 :00 No 1mg Take 1 tablet by mouth at bedtime. [facility] proMETHazin e 25 mg tablet 2022-02 0-05 16:29: 16 11-29 00:00 :00 No Take by mouth as needed. [facility] FENTanyl 25 mcg/hr patch 2022-02 0-05 16:29: 00 11-29 00:00 :00 No 1{patch } Apply 1 Patch to skin every 72 (seventy-t wo) hours. [facility] phentermine 37.5 mg capsule 10-22 00:00: 00 03-04 00:00 :00 No [id number] 104 37.5mg Take 1 capsule by mouth every morning. [facility] topiramate 25 mg tablet 10-22 00:00: 00 01-26 00:00 :00 No [id number] 50mg Take 2 tablets by mouth in the morning. [facility] levothyroxi ne 125 mcg tablet 821 00:00: 00 12-02 00:00 :00 No [id number] 125ug Take 1 tablet by mouth every morning. [facility] hydrocortis one sod succ (CORTEF) injection 100 mg 09-17 08:45: 00 09-17 08:04 :00 No 100mg 100 mg, Intravenou s, ONCE, 1 dose, On Sat09/17/22 at 0345, 2 mL [facility] ondansetron (ZOFRAN (PF)) injection 4 mg 09-17 07:54: 00 09-17 07:55 :00 No 4mg 4 mg, Slow IV Push, ONCE, 1 dose, On Sat09/17/22 at 0300, MARSHALL [facility] dicyclomine (BENTYL) injection 20 mg 09-17 07:45: 00 09-17 07:47 :00 No 20mg 20 mg, Intramuscu lar, ONCE NOW, 1 dose, On Sat09/17/22 at 0245, Routine [facility] alum-mag hydroxide-s imeth (MAALOX PLUS / MAG-AL PLUS) 200-200-20 mg/5 mL suspension 30 mL 09-17 07:00: 00 09-17 07:52 :00 No 30mL 30 mL, Oral, ONCE, 1 dose, On Sat09/17/22 at 0200, MARSHALL [facility] morpHINE (2 mg/mL) injection 2 mg 09-17 07:00: 00 09-17 07:45 :00 No 2mg 2 mg, Slow IV Push, ONCE, 1 dose, On Sat09/17/22 at 0200, STAT [facility] NaCl 0.9% (NS) bolus infusion 500 mL 09-17 06:00: 00 09-17 07:55 :00 No 500mL at 999 mL/hr, 500 mL, IV Infusion, ONCE, 1 dose, On Sat09/17/22 at 0100, STAT [facility] iopamidol (ISOVUE 370-500 mL) injection 75 mL 09-17 06:00: 00 09-17 05:11 :00 No [id number] 75mL 75 mL, Intravenou s, ONCE, 1 dose, On 09/17/22 at 0100, Routine [facility] ketorolac (TORADOL) injection 30 mg 09-17 04:45: 00 09-17 04:47 :00 No 30mg 30 mg, Slow IV Push, ONCE, 1 dose, On 09/16/22 at 2345, Routine [facility] diazePAM (VALIUM) injection 5 mg 09-17 03:45: 00 09-17 04:45 :00 No 5mg 5 mg, Slow IV Push, ONCE, 1 dose, On Sat09/16/22 at 2245, STAT [facility] FENTanyl 25 mcg/hr patch 09-14 09:30: 16 Yes 1{patch } Apply 1 Patch to skin every 72 (seventy-t wo) hours. [facility] proMETHazin e 25 mg tablet 09-14 09:30: 16 Yes Take by mouth as needed. [facility] WEGOVY 0.25 mg/0.5 mL PnIj SC injection 09-06 00:00: 00 10-22 00:00 :00 No [id number] .25mg INJECT 0.25 MG UNDER THE SKIN WEEKLY. [facility] levothyroxi ne 125 mcg tablet 09-05 00:00: 00 10-15 00:00 :00 No [id number] 125ug Take 1 tablet by mouth every morning. [facility] topiramate 25 mg tablet 09-04 16:05: 41 09-04 00:00 :00 No Take by mouth daily. [facility] rizatriptan (MAXALT) 10 mg tablet 09-04 00:00: 00 Yes [id number] 10mg Take 1 tablet by mouth as needed for Migraine. May repeat in 2 hours if needed [facility] topiramate 25 mg tablet 09-04 00:00: 00 10-22 00:00 :00 No [id number] 50mg Take 2 tablets by mouth in the morning. [facility] semaglutide , weight loss, (WEGOVY) 0.25 mg/0.5 mL PnIj SC injection 09-04 00:00: 00 09-06 00:00 :00 No [id number] .25mg inject 0.25 mg under the skin weekly. [facility] proMETHazin e 25 mg tablet 08-30 16:31: 42 Yes Take by mouth as needed. [facility] HYDROCORTIS ONE 10 mg tablet 08-25 00:00: 00 03-04 00:00 :00 No [id number] TAKE 1 TABLET BY MOUTH TWICE A DAY [facility] lactated ringers IV infusion 1,000 mL 08-20 14:45: 00 Yes 1000mL at 75 mL/hr, 1,000 mL, IV Infusion, CONTINUOUS , Starting on Sat08/20/22 at 0945, Until Discontinu ed, Routine, PACU [facility] HYDROcodone -acetaminop hen (NORCO 5) 5-325 mg tablet 1 tablet 08-20 14:42: 27 Yes 1{tbl} 1 tablet, Oral, PRN, 1 dose, Starting on Sat08/20/22 at 0942, Until Discontinu ed, Routine, Pain (scale 4-6), DSU Recovery [facility] ibuprofen (IBU) tablet 800 mg 08-20 14:42: 27 Yes 800mg 800 mg, Oral, PRN, 1 dose, Starting on Sat08/20/22 at 0942, Until Discontinu ed, Routine, Pain (scale 1-3), DSU Recovery [facility] HYDROcodone -acetaminop hen (NORCO) 10-325 mg tablet 1 tablet 08-20 14:42: 27 08-20 15:34 :00 No 1{tbl} 1 tablet, Oral, PRN, 1 dose, Starting on Sat08/20/22 at 0942, Until Discontinu ed, Routine, Pain (scale 7-10), DSU Recovery [facility] ondansetron (ZOFRAN (PF)) injection 4 mg 08-20 14:42: 14 Yes 4mg 4 mg, Slow IV Push, PRN, 1 dose, Starting on Sat08/20/22 at 0942, Until Discontinu ed, Routine, Nausea and Vomiting (N/V), PACU [facility] FENTanyl PF (SUBLIMAZE (PF)) injection 25 mcg 08-20 14:42: 14 08-20 15:23 :00 No 25ug 25 mcg, Slow IV Push, Q5MIN PRN, 4 doses, Starting on Sat08/20/22 at 0942, Until Sat08/20/22 at 1023, Routine, Pain (scale 4-6), PACU [facility] bupivacaine (preserv free) 0.5% (SENSORCAIN E MPF) 0.5 % (5 mg/mL) injection 08-20 13:00: 00 08-20 14:46 :23 No PRN, Starting on Sat08/20/22 at 0800, Until Sat08/20/22 at 0946, Routine, Intra-op [facility] sodium chloride 0.9 % irrigation solution 08-20 13:00: 00 08-20 14:46 :23 No PRN, Starting on Sat08/20/22 at 0800, Until Sat08/20/22 at 0946, Intra-op [facility] lactated ringers IV infusion 1,000 mL 08-20 12:15: 00 Yes 1000mL at 100 mL/hr, 1,000 mL, IV Infusion, CONTINUOUS , Starting on Sat08/20/22 at 0715, Until Discontinu ed, Routine, PACU [facility] FENTanyl 25 mcg/hr patch 08-20 11:26: 02 Yes 1{patch } Apply 1 Patch to skin every 72 (seventy-t wo) hours. [facility] rOPINIRole 1 mg tablet 08-20 11:26: 02 Yes 1mg Take 1 tablet by mouth at bedtime. [facility] topiramate 25 mg tablet 08-20 11:26: 02 Yes Take by mouth daily. [facility] proMETHazin e 25 mg tablet 08-20 11:26: 02 Yes Take by mouth as needed. [facility] oxcarbazepi ne (TRILEPTAL ORAL) 08-20 11:26: 02 Yes 40mg Take by mouth. [facility] traMADoL 50 mg tablet 08-20 11:25: 59 08-20 00:00 :00 No Take by mouth as needed. [facility] OXCARBAZEPI NE (TRILEPTAL ORAL) 08-20 09:34: 50 08-20 00:00 :00 No 300mg Take 300 mg by mouth in the morning and 300 mg in the evening. [facility] ibuprofen 800 mg tablet 08-20 00:00: 00 11-29 00:00 :00 No [id number] 800mg Take 1 tablet by mouth every 6 (six) hours as needed for Pain (scale 1-3). [facility] HYDROcodone -acetaminop hen (NORCO) 7.5-325 mg per tablet 08-20 00:00: 00 08-28 04:59 :00 No [id number] 1{tbl} Take 1 tablet by mouth every 6 (six) hours as needed for Pain for up to 7 days. Indication s: acute pain [facility] HYDROcodone -acetaminop hen 5-325 mg tablet 08-20 00:00: 00 08-20 00:00 :00 No [id number] 1{tbl} Take 1 tablet by mouth every 6 (six) hours as needed for Pain (scale 4-6) or Pain (scale 7-10). Indication s: acute pain [facility] levothyroxi ne 150 mcg tablet 08-17 00:00: 00 09-05 00:00 :00 No [id number] 150ug Take 1 tablet by mouth every morning. Please wait for 30 minutes to an hour before you eat or drink anything. [facility] OXCARBAZEPI NE (TRILEPTAL ORAL) 08-09 10:09: 34 Yes 300mg Take 300 mg by mouth in the morning and 300 mg in the evening. [facility] topiramate 25 mg tablet 08-09 10:09: 34 Yes Take by mouth daily. [facility] proMETHazin e 25 mg tablet 08-09 10:09: 34 Yes Take by mouth as needed. [facility] traMADoL 50 mg tablet 08-09 10:09: 34 Yes Take by mouth as needed. [facility] CITALOPRAM HYDROBROMID E (CELEXA ORAL) 08-09 09:52: 09 Yes 40mg Take 40 mg by mouth in the morning. [facility] FENTanyl 25 mcg/hr patch 08-09 09:52: 09 Yes 1{patch } Apply 1 Patch to skin every 72 (seventy-t wo) hours. [facility] rOPINIRole 1 mg tablet 08-09 09:52: 09 Yes 1mg Take 1 tablet by mouth at bedtime. [facility] ibuprofen 800 mg tablet 08-02 00:00: 00 08-20 00:00 :00 No [id number] 800mg Take 1 tablet by mouth every 8 (eight) hours as needed for Pain (scale 4-6). [facility] ketorolac (TORADOL) injection 30 mg 07-29 04:00: 00 07-29 02:59 :00 No 30mg 30 mg, Slow IV Push, ONCE, 1 dose, On 07/28/22 at 2300, Routine [facility] morpHINE (4 mg/mL) injection 4 mg 07-29 02:00: 00 07-29 01:53 :00 No 4mg 4 mg, Slow IV Push, ONCE, 1 dose, On 07/28/22 at 2100, STAT [facility] morpHINE (4 mg/mL) injection 4 mg 07-29 00:30: 00 07-29 00:17 :00 No 4mg 4 mg, Slow IV Push, ONCE, 1 dose, On 07/28/22 at 1930, STAT [facility] iopamidol (ISOVUE 370-500 mL) injection 90 mL 07-29 00:00: 00 07-29 00:00 :00 No [id number] 90mL 90 mL, Intravenou s, ONCE, 1 dose, On 07/28/22 at 1900, Routine [facility] ondansetron (ZOFRAN (PF)) injection 4 mg 07-28 22:15: 00 07-28 22:22 :00 No 4mg 4 mg, Slow IV Push, ONCE, 1 dose, On 07/28/22 at 1715, MARSHALL [facility] morpHINE (4 mg/mL) injection 4 mg 07-28 22:15: 00 07-28 22:27 :00 No 4mg 4 mg, Slow IV Push, ONCE, 1 dose, On 07/28/22 at 1715, STAT [facility] cefpodoxime 100 mg tablet 07-28 00:00: 00 08-05 04:59 :00 No [id number] 100mg Take 1 tablet by mouth in the morning and 1 tablet in the evening. Do all this for 7 days. [facility] LATUDA 20 mg tablet 07-27 00:00: 00 Yes Take by mouth at bedtime. [facility] TOPIRAMATE 25 mg tablet 07-25 00:00: 00 09-04 00:00 :00 No [id number] TAKE 1 TABLET BY MOUTH EVERY DAY IN THE MORNING [facility] atomoxetine 60 mg capsule 07-22 00:00: 00 Yes 60mg Take 1 capsule by mouth in the morning and 1 capsule in the evening. [facility] cloNIDine 0.1 mg tablet 07-20 00:00: 00 Yes Take by mouth as needed. [facility] HYDROcodone -acetaminop hen 10-325 mg tablet 4-14 00:00: 00 Yes 1{tbl} Take 1 tablet by mouth in the morning and 1 tablet in the evening. [facility] phentermine 37.5 mg capsule - 00:00: 00 08-20 00:00 :00 No [id number] 37.5mg Take 1 capsule by mouth every morning. [facility] levothyroxi ne 175 mcg tablet 02-28 00:00: 00 08-17 00:00 :00 No [id number] 175ug Take 1 tablet by mouth every morning. TAKE 1 TABLET DAILY SATURDAY THROUGH SATURDAY, AND 1/2 TABLET ON SATURDAY [facility] topiramate 25 mg tablet 02-28 00:00: 00 07-25 00:00 :00 No [id number] 25mg Take 1 tablet by mouth in the morning. [facility] phentermine 37.5 mg capsule 2021-02 0 00:00: 00 02-28 00:00 :00 No [id number] 37.5mg Take 1 capsule by mouth every morning. [facility] topiramate 25 mg tablet 2021-02 0 00:00: 00 02-28 00:00 :00 No [id number] 25mg Take 1 tablet by mouth in the morning. [facility] semaglutide , weight loss, (WEGOVY) 0.25 mg/0.5 mL PnIj SC injection 2021-02 0- 00:00: 00 12-20 00:00 :00 No [id number] .25mg inject 0.25 mg under the skin weekly. [facility] topiramate 25 mg tablet 9-30 00:00: 00 11-27 00:00 :00 No [id number] TAKE 1 TABLET BY MOUTH EVERY DAY [facility] PHENTERMINE 37.5 mg capsule 8-28 00:00: 00 11-27 00:00 :00 No [id number] TAKE 1 CAPSULE BY MOUTH EVERY DAY IN THE MORNING [facility] levothyroxi ne 175 mcg tablet 30 00:00: 00 02-28 00:00 :00 No [id number] TAKE 1 TABLET DAILY SATURDAY THROUGH SATURDAY, AND 1/2 TABLET ON SATURDAY. [facility] hydrocortis one sod succ (SOLU-AMY F) 100 mg injection 08-23 00:00: 00 03-04 00:00 :00 No [id number] 100mg 2 mL by Intramuscu lar route as needed (for when patient is unconsciou s). [facility] hydrocortis one 10 mg tablet 08-23 00:00: 00 08-25 00:00 :00 No [id number] 10mg Take 1 tablet by mouth 2 (two) times daily. [facility] topiramate 25 mg tablet 08-04 00:00: 00 11-24 00:00 :00 No [id number] 25mg Take 1 tablet by mouth daily. [facility] PHENTERMINE 37.5 mg capsule 08-01 00:00: 00 10-22 00:00 :00 No [id number] TAKE 1 CAPSULE BY MOUTH EVERY DAY IN THE MORNING [facility] LEVOTHYROXI NE 175 mcg tablet 3-23 00:00: 00 09-23 00:00 :00 No [id number] TAKE 1 TABLET DAILY SATURDAY THROUGH SATURDAY, AND 1/2 TABLET ON SATURDAY. [facility] norethindro ne 0.35 mg tablet 2020-02 00:00: 00 08-20 00:00 :00 No [id number] 1{tbl} Take 1 tablet by mouth daily. [facility] oxcarbazepi ne (TRILEPTAL ORAL) 2020-02 13:09: 42 Yes 40mg Take by mouth. [facility] FENTanyl 25 mcg/hr patch 2020-02 13:09: 42 Yes 1{patch } Apply 1 Patch to skin every 72 (seventy-t wo) hours. [facility] rOPINIRole 1 mg tablet 2020-02 13:09: 42 Yes 1mg Take 1 mg by mouth at bedtime. [facility] Movantik Movantik 04-22 00:00: 00 08-20 00:00 :00 No Cinda Millender 1 tablet in the morning [facility] Pantoprazol e Sodium Pantoprazol e Sodium 10-25 00:00: 00 Yes Cinda Millender 1 tablet [facility] Chlordiazep oxide-Clidi nium Chlordiazep oxide-Clidi nium 10-25 00:00: 00 08-20 00:00 :00 No Cinda Millender 1 capsule [facility] ondansetron 4 mg disintegrat ing tablet 2016-02 00:00: 00 08-20 00:00 :00 No [facility] LYRICA 100 mg capsule 2015-02 00:00: 00 03-04 00:00 :00 No [facility] SAVELLA 50 mg tablet 2015-02 00:00: 00 03-04 00:00 :00 No 25mg Take 0.5 tablets by mouth in the morning and 0.5 tablets in the evening. [facility] Neurontin Neurontin Yes Cinda Millender 1 capsule [facility] Amitriptyli ne HCl Amitriptyli ne HCl Yes Cinda Millender 1 tablet [facility] Topamax Topamax Yes Cinda Millender 1 tablet [facility] Zofran Zofran Yes Cinda Millender 1 tablet [facility] Ultram Ultram Yes Cinda Millender 1 tablet as needed [facility] Lyrica Lyrica Yes Cinda Millender 1 capsule [facility] Robaxin Robaxin Yes Cinda Millender 1.5 tablets [facility] Trazodone HCl Trazodone HCl Yes Cinda Millender 1 tablet at bedtime as needed [facility] Protonix Protonix Yes Cinda Millender 1 tablet [facility] Savella Savella Yes Cinda Millender 1 tablet [facility] Synthroid Synthroid Yes Cinda Millender 1 tablet on an empty stomach in the morning [facility] Imitrex Imitrex Yes Cinda Millender 1 tablet as needed [facility] Citalopram Hydrobromid e Citalopram Hydrobromid e Yes Cinda Millender 1 tablet [facility] Clonazepam Clonazepam Yes Cinda Millender 1 tablet [facility] Cyclobenzap rine HCl Cyclobenzap rine HCl Yes Cinda Millender 1 tablet as needed [facility] Furosemide Furosemide Yes Cinda Millender 1 tablet as needed for leg swelling [facility] Effexor XR Effexor XR Yes Cinda Millender 1 capsule with food [facility] Immunizations Ordered Immunization Name Filled Immunization Name Date Status Comments Source Influenza Virus Vaccine Quad IM, Preserv and ABX Free 6 MO-64 YRS 2021-01-05 00:00:00 Completed [facility] Pneumococcal 13 Conjugate, PCV13 (Prevnar 13) 2021-01-05 00:00:00 Completed [facility] TDAP 2021-01-05 00:00:00 Completed [facility] Influenza Virus Vaccine Quad IM, Preserv and ABX Free 6 MO-64 YRS 2021-01-05 00:00:00 Completed [facility] Pneumococcal 13 Conjugate, PCV13 (Prevnar 13) 2021-01-05 00:00:00 Completed [facility] TDAP 2021-01-05 00:00:00 Completed [facility] Influenza Virus Vaccine Quad IM, Preserv and ABX Free 6 MO-64 YRS 2021-01-05 00:00:00 Completed [facility] Pneumococcal 13 Conjugate, PCV13 (Prevnar 13) 2021-01-05 00:00:00 Completed [facility] TDAP 2021-01-05 00:00:00 Completed [facility] Influenza Virus Vaccine Quad IM, Preserv and ABX Free 6 MO-64 YRS 2021-01-05 00:00:00 Completed [facility] Pneumococcal 13 Conjugate, PCV13 (Prevnar 13) 2021-01-05 00:00:00 Completed [facility] TDAP 2021-01-05 00:00:00 Completed [facility] Influenza Virus Vaccine Quad IM, Preserv and ABX Free 6 MO-64 YRS 2021-01-05 00:00:00 Completed [facility] Pneumococcal 13 Conjugate, PCV13 (Prevnar 13) 2021-01-05 00:00:00 Completed [facility] TDAP 2021-01-05 00:00:00 Completed [facility] Influenza Virus Vaccine Quad IM, Preserv and ABX Free 6 MO-64 YRS 2021-01-05 00:00:00 Completed [facility] Pneumococcal 13 Conjugate, PCV13 (Prevnar 13) 2021-01-05 00:00:00 Completed [facility] TDAP 2021-01-05 00:00:00 Completed [facility] Influenza Virus Vaccine Quad IM, Preserv and ABX Free 6 MO-64 YRS 2021-01-05 00:00:00 Completed [facility] Pneumococcal 13 Conjugate, PCV13 (Prevnar 13) 2021-01-05 00:00:00 Completed [facility] TDAP 2021-01-05 00:00:00 Completed [facility] Influenza Virus Vaccine Quad IM, Preserv and ABX Free 6 MO-64 YRS 2021-01-05 00:00:00 Completed [facility] Pneumococcal 13 Conjugate, PCV13 (Prevnar 13) 2021-01-05 00:00:00 Completed [facility] TDAP 2021-01-05 00:00:00 Completed [facility] Influenza Virus Vaccine Quad IM, Preserv and ABX Free 6 MO-64 YRS 2021-01-05 00:00:00 Completed [facility] Pneumococcal 13 Conjugate, PCV13 (Prevnar 13) 2021-01-05 00:00:00 Completed [facility] TDAP 2021-01-05 00:00:00 Completed [facility] Influenza Virus Vaccine Quad IM, Preserv and ABX Free 6 MO-64 YRS 2021-01-05 00:00:00 Completed [facility] Pneumococcal 13 Conjugate, PCV13 (Prevnar 13) 2021-01-05 00:00:00 Completed [facility] TDAP 2021-01-05 00:00:00 Completed [facility] Influenza Virus Vaccine Quad IM, Preserv and ABX Free 6 MO-64 YRS 2021-01-05 00:00:00 Completed [facility] Pneumococcal 13 Conjugate, PCV13 (Prevnar 13) 2021-01-05 00:00:00 Completed [facility] TDAP 2021-01-05 00:00:00 Completed [facility] Influenza Virus Vaccine Quad IM, Preserv and ABX Free 6 MO-64 YRS 2021-01-05 00:00:00 Completed [facility] Pneumococcal 13 Conjugate, PCV13 (Prevnar 13) 2021-01-05 00:00:00 Completed [facility] TDAP 2021-01-05 00:00:00 Completed [facility] Influenza Virus Vaccine Quad IM, Preserv and ABX Free 6 MO-64 YRS 2021-01-05 00:00:00 Completed [facility] Pneumococcal 13 Conjugate, PCV13 (Prevnar 13) 2021-01-05 00:00:00 Completed [facility] TDAP 2021-01-05 00:00:00 Completed [facility] Influenza Virus Vaccine Quad IM, Preserv and ABX Free 6 MO-64 YRS 2021-01-05 00:00:00 Completed [facility] Pneumococcal 13 Conjugate, PCV13 (Prevnar 13) 2021-01-05 00:00:00 Completed [facility] TDAP 2021-01-05 00:00:00 Completed [facility] Influenza Virus Vaccine Quad IM, Preserv and ABX Free 6 MO-64 YRS 2021-01-05 00:00:00 Completed [facility] Pneumococcal 13 Conjugate, PCV13 (Prevnar 13) 2021-01-05 00:00:00 Completed [facility] TDAP 2021-01-05 00:00:00 Completed [facility] Influenza Virus Vaccine Quad IM, Preserv and ABX Free 6 MO-64 YRS 2021-01-05 00:00:00 Completed [facility] Pneumococcal 13 Conjugate, PCV13 (Prevnar 13) 2021-01-05 00:00:00 Completed [facility] TDAP 2021-01-05 00:00:00 Completed [facility] Influenza Virus Vaccine Quad IM, Preserv and ABX Free 6 MO-64 YRS 2021-01-05 00:00:00 Completed [facility] Pneumococcal 13 Conjugate, PCV13 (Prevnar 13) 2021-01-05 00:00:00 Completed [facility] TDAP 2021-01-05 00:00:00 Completed [facility] Influenza Virus Vaccine Quad IM, Preserv and ABX Free 6 MO-64 YRS 2021-01-05 00:00:00 Completed [facility] Pneumococcal 13 Conjugate, PCV13 (Prevnar 13) 2021-01-05 00:00:00 Completed [facility] TDAP 2021-01-05 00:00:00 Completed [facility] Influenza Virus Vaccine Quad IM, Preserv and ABX Free 6 MO-64 YRS 2021-01-05 00:00:00 Completed [facility] Pneumococcal 13 Conjugate, PCV13 (Prevnar 13) 2021-01-05 00:00:00 Completed [facility] TDAP 2021-01-05 00:00:00 Completed [facility] Influenza Virus Vaccine Quad IM, Preserv and ABX Free 6 MO-64 YRS 2021-01-05 00:00:00 Completed [facility] Pneumococcal 13 Conjugate, PCV13 (Prevnar 13) 2021-01-05 00:00:00 Completed [facility] TDAP 2021-01-05 00:00:00 Completed [facility] Influenza Virus Vaccine Quad IM, Preserv and ABX Free 6 MO-64 YRS 2021-01-05 00:00:00 Completed [facility] Pneumococcal 13 Conjugate, PCV13 (Prevnar 13) 2021-01-05 00:00:00 Completed [facility] TDAP 2021-01-05 00:00:00 Completed [facility] Influenza Virus Vaccine Quad IM, Preserv and ABX Free 6 MO-64 YRS 2021-01-05 00:00:00 Completed [facility] Pneumococcal 13 Conjugate, PCV13 (Prevnar 13) 2021-01-05 00:00:00 Completed [facility] TDAP 2021-01-05 00:00:00 Completed [facility] Influenza Virus Vaccine Quad IM, Preserv and ABX Free 6 MO-64 YRS 2021-01-05 00:00:00 Completed [facility] Pneumococcal 13 Conjugate, PCV13 (Prevnar 13) 2021-01-05 00:00:00 Completed [facility] TDAP 2021-01-05 00:00:00 Completed [facility] Influenza Virus Vaccine Quad IM, Preserv and ABX Free 6 MO-64 YRS 2021-01-05 00:00:00 Completed [facility] Pneumococcal 13 Conjugate, PCV13 (Prevnar 13) 2021-01-05 00:00:00 Completed [facility] TDAP 2021-01-05 00:00:00 Completed [facility] Influenza Virus Vaccine Quad IM, Preserv and ABX Free 6 MO-64 YRS 2021-01-05 00:00:00 Completed [facility] Pneumococcal 13 Conjugate, PCV13 (Prevnar 13) 2021-01-05 00:00:00 Completed [facility] TDAP 2021-01-05 00:00:00 Completed [facility] Influenza Virus Vaccine Quad IM, Preserv and ABX Free 6 MO-64 YRS 2021-01-05 00:00:00 Completed [facility] Pneumococcal 13 Conjugate, PCV13 (Prevnar 13) 2021-01-05 00:00:00 Completed [facility] TDAP 2021-01-05 00:00:00 Completed [facility] Influenza Virus Vaccine Quad IM, Preserv and ABX Free 6 MO-64 YRS 2021-01-05 00:00:00 Completed [facility] Pneumococcal 13 Conjugate, PCV13 (Prevnar 13) 2021-01-05 00:00:00 Completed [facility] TDAP 2021-01-05 00:00:00 Completed [facility] Influenza Virus Vaccine Quad IM, Preserv and ABX Free 6 MO-64 YRS 2021-01-05 00:00:00 Completed [facility] Pneumococcal 13 Conjugate, PCV13 (Prevnar 13) 2021-01-05 00:00:00 Completed [facility] TDAP 2021-01-05 00:00:00 Completed [facility] Influenza Virus Vaccine Quad IM, Preserv and ABX Free 6 MO-64 YRS 2021-01-05 00:00:00 Completed [facility] Pneumococcal 13 Conjugate, PCV13 (Prevnar 13) 2021-01-05 00:00:00 Completed [facility] TDAP 2021-01-05 00:00:00 Completed [facility] Influenza Virus Vaccine Quad IM, Preserv and ABX Free 6 MO-64 YRS 2021-01-05 00:00:00 Completed [facility] Pneumococcal 13 Conjugate, PCV13 (Prevnar 13) 2021-01-05 00:00:00 Completed [facility] TDAP 2021-01-05 00:00:00 Completed [facility] Influenza Virus Vaccine Quad IM, Preserv and ABX Free 6 MO-64 YRS 2021-01-05 00:00:00 Completed [facility] Pneumococcal 13 Conjugate, PCV13 (Prevnar 13) 2021-01-05 00:00:00 Completed [facility] TDAP 2021-01-05 00:00:00 Completed [facility] Influenza Virus Vaccine Quad IM, Preserv and ABX Free 6 MO-64 YRS 2021-01-05 00:00:00 Completed [facility] Pneumococcal 13 Conjugate, PCV13 (Prevnar 13) 2021-01-05 00:00:00 Completed [facility] TDAP 2021-01-05 00:00:00 Completed [facility] Influenza Virus Vaccine Quad IM, Preserv and ABX Free 6 MO-64 YRS 2021-01-05 00:00:00 Completed [facility] Pneumococcal 13 Conjugate, PCV13 (Prevnar 13) 2021-01-05 00:00:00 Completed [facility] TDAP 2021-01-05 00:00:00 Completed [facility] Influenza Virus Vaccine Quad IM, Preserv and ABX Free 6 MO-64 YRS 2021-01-05 00:00:00 Completed [facility] Pneumococcal 13 Conjugate, PCV13 (Prevnar 13) 2021-01-05 00:00:00 Completed [facility] TDAP 2021-01-05 00:00:00 Completed [facility] Influenza Virus Vaccine Quad IM, Preserv and ABX Free 6 MO-64 YRS 2021-01-05 00:00:00 Completed [facility] Pneumococcal 13 Conjugate, PCV13 (Prevnar 13) 2021-01-05 00:00:00 Completed [facility] TDAP 2021-01-05 00:00:00 Completed [facility] Influenza Virus Vaccine Quad IM, Preserv and ABX Free 6 MO-64 YRS 2021-01-05 00:00:00 Completed [facility] Pneumococcal 13 Conjugate, PCV13 (Prevnar 13) 2021-01-05 00:00:00 Completed [facility] TDAP 2021-01-05 00:00:00 Completed [facility] Influenza Virus Vaccine Quad IM, Preserv and ABX Free 6 MO-64 YRS 2021-01-05 00:00:00 Completed [facility] Pneumococcal 13 Conjugate, PCV13 (Prevnar 13) 2021-01-05 00:00:00 Completed [facility] TDAP 2021-01-05 00:00:00 Completed [facility] Influenza Virus Vaccine Quad IM, Preserv and ABX Free 6 MO-64 YRS 2021-01-05 00:00:00 Completed [facility] Pneumococcal 13 Conjugate, PCV13 (Prevnar 13) 2021-01-05 00:00:00 Completed [facility] TDAP 2021-01-05 00:00:00 Completed [facility] Influenza Virus Vaccine Quad IM, Preserv and ABX Free 6 MO-64 YRS 2021-01-05 00:00:00 Completed [facility] Pneumococcal 13 Conjugate, PCV13 (Prevnar 13) 2021-01-05 00:00:00 Completed [facility] TDAP 2021-01-05 00:00:00 Completed [facility] Influenza Virus Vaccine Quad IM, Preserv and ABX Free 6 MO-64 YRS 2021-01-05 00:00:00 Completed [facility] Pneumococcal 13 Conjugate, PCV13 (Prevnar 13) 2021-01-05 00:00:00 Completed [facility] TDAP 2021-01-05 00:00:00 Completed [facility] Influenza Virus Vaccine Quad IM, Preserv and ABX Free 6 MO-64 YRS 2021-01-05 00:00:00 Completed [facility] Pneumococcal 13 Conjugate, PCV13 (Prevnar 13) 2021-01-05 00:00:00 Completed [facility] TDAP 2021-01-05 00:00:00 Completed [facility] Influenza Virus Vaccine Quad IM, Preserv and ABX Free 6 MO-64 YRS 2021-01-05 00:00:00 Completed [facility] Pneumococcal 13 Conjugate, PCV13 (Prevnar 13) 2021-01-05 00:00:00 Completed [facility] TDAP 2021-01-05 00:00:00 Completed [facility] Influenza Virus Vaccine Quad IM, Preserv and ABX Free 6 MO-64 YRS 2021-01-05 00:00:00 Completed [facility] Pneumococcal 13 Conjugate, PCV13 (Prevnar 13) 2021-01-05 00:00:00 Completed [facility] TDAP 2021-01-05 00:00:00 Completed [facility] Influenza Virus Vaccine Quad IM, Preserv and ABX Free 6 MO-64 YRS 2021-01-05 00:00:00 Completed [facility] Pneumococcal 13 Conjugate, PCV13 (Prevnar 13) 2021-01-05 00:00:00 Completed [facility] TDAP 2021-01-05 00:00:00 Completed [facility] Influenza Virus Vaccine Quad IM, Preserv and ABX Free 6 MO-64 YRS 2021-01-05 00:00:00 Completed [facility] Pneumococcal 13 Conjugate, PCV13 (Prevnar 13) 2021-01-05 00:00:00 Completed [facility] TDAP 2021-01-05 00:00:00 Completed [facility] Influenza Virus Vaccine Quad IM, Preserv and ABX Free 6 MO-64 YRS 2021-01-05 00:00:00 Completed [facility] Pneumococcal 13 Conjugate, PCV13 (Prevnar 13) 2021-01-05 00:00:00 Completed [facility] TDAP 2021-01-05 00:00:00 Completed [facility] Influenza Virus Vaccine Quad IM, Preserv and ABX Free 6 MO-64 YRS 2021-01-05 00:00:00 Completed [facility] Pneumococcal 13 Conjugate, PCV13 (Prevnar 13) 2021-01-05 00:00:00 Completed [facility] TDAP 2021-01-05 00:00:00 Completed [facility] Influenza Virus Vaccine Quad IM, Preserv and ABX Free 6 MO-64 YRS 2021-01-05 00:00:00 Completed [facility] Pneumococcal 13 Conjugate, PCV13 (Prevnar 13) 2021-01-05 00:00:00 Completed [facility] TDAP 2021-01-05 00:00:00 Completed [facility] Influenza Virus Vaccine Quad IM, Preserv and ABX Free 6 MO-64 YRS 2021-01-05 00:00:00 Completed [facility] Pneumococcal 13 Conjugate, PCV13 (Prevnar 13) 2021-01-05 00:00:00 Completed [facility] TDAP 2021-01-05 00:00:00 Completed [facility] Influenza Virus Vaccine Quad IM, Preserv and ABX Free 6 MO-64 YRS 2021-01-05 00:00:00 Completed [facility] Pneumococcal 13 Conjugate, PCV13 (Prevnar 13) 2021-01-05 00:00:00 Completed [facility] TDAP 2021-01-05 00:00:00 Completed [facility] Influenza Virus Vaccine Quad IM, Preserv and ABX Free 6 MO-64 YRS 2021-01-05 00:00:00 Completed [facility] Pneumococcal 13 Conjugate, PCV13 (Prevnar 13) 2021-01-05 00:00:00 Completed [facility] TDAP 2021-01-05 00:00:00 Completed [facility] Influenza Virus Vaccine Quad IM, Preserv and ABX Free 6 MO-64 YRS 2021-01-05 00:00:00 Completed [facility] Pneumococcal 13 Conjugate, PCV13 (Prevnar 13) 2021-01-05 00:00:00 Completed [facility] TDAP 2021-01-05 00:00:00 Completed [facility] Influenza Virus Vaccine Quad IM, Preserv and ABX Free 6 MO-64 YRS 2021-01-05 00:00:00 Completed [facility] Pneumococcal 13 Conjugate, PCV13 (Prevnar 13) 2021-01-05 00:00:00 Completed [facility] TDAP 2021-01-05 00:00:00 Completed [facility] Influenza Virus Vaccine Quad IM, Preserv and ABX Free 6 MO-64 YRS 2021-01-05 00:00:00 Completed [facility] Pneumococcal 13 Conjugate, PCV13 (Prevnar 13) 2021-01-05 00:00:00 Completed [facility] TDAP 2021-01-05 00:00:00 Completed [facility] Influenza Virus Vaccine Quad IM, Preserv and ABX Free 6 MO-64 YRS 2021-01-05 00:00:00 Completed [facility] Pneumococcal 13 Conjugate, PCV13 (Prevnar 13) 2021-01-05 00:00:00 Completed [facility] TDAP 2021-01-05 00:00:00 Completed [facility] Influenza Virus Vaccine Quad IM, Preserv and ABX Free 6 MO-64 YRS 2021-01-05 00:00:00 Completed [facility] Pneumococcal 13 Conjugate, PCV13 (Prevnar 13) 2021-01-05 00:00:00 Completed [facility] TDAP 2021-01-05 00:00:00 Completed [facility] Influenza Virus Vaccine Quad IM, Preserv and ABX Free 6 MO-64 YRS 2021-01-05 00:00:00 Completed [facility] Pneumococcal 13 Conjugate, PCV13 (Prevnar 13) 2021-01-05 00:00:00 Completed [facility] TDAP 2021-01-05 00:00:00 Completed [facility] [facility] Influ[facility] Virus Vaccine Quad IM, Preserv and ABX Free 6 MO-64 YRS 2021-01-05 00:00:00 Completed [facility] Pneumococcal 13 Conjugate, PCV13 (Prevnar 13) 2021-01-05 00:00:00 Completed [facility] TDAP 2021-01-05 00:00:00 Completed [facility] Influenza Virus Vaccine Quad IM, Preserv and ABX Free 6 MO-64 YRS 2021-01-05 00:00:00 Completed [facility] Pneumococcal 13 Conjugate, PCV13 (Prevnar 13) 2021-01-05 00:00:00 Completed [facility] TDAP 2021-01-05 00:00:00 Completed [facility] Influenza Virus Vaccine Quad IM, Preserv and ABX Free 6 MO-64 YRS 2021-01-05 00:00:00 Completed [facility] Pneumococcal 13 Conjugate, PCV13 (Prevnar 13) 2021-01-05 00:00:00 Completed [facility] TDAP 2021-01-05 00:00:00 Completed [facility] Influenza Virus Vaccine Quad IM, Preserv and ABX Free 6 MO-64 YRS 2021-01-05 00:00:00 Completed [facility] Pneumococcal 13 Conjugate, PCV13 (Prevnar 13) 2021-01-05 00:00:00 Completed [facility] TDAP 2021-01-05 00:00:00 Completed [facility] Influenza Virus Vaccine Quad IM, Preserv and ABX Free 6 MO-64 YRS 2021-01-05 00:00:00 Completed [facility] Pneumococcal 13 Conjugate, PCV13 (Prevnar 13) 2021-01-05 00:00:00 Completed [facility] TDAP 2021-01-05 00:00:00 Completed [facility] Influenza Virus Vaccine Quad IM, Preserv and ABX Free 6 MO-64 YRS 2021-01-05 00:00:00 Completed [facility] Pneumococcal 13 Conjugate, PCV13 (Prevnar 13) 2021-01-05 00:00:00 Completed [facility] TDAP 2021-01-05 00:00:00 Completed [facility] SARS-COV-2 COVID-19 PFIZER VACCINE 2020-10-10 00:00:00 Completed [facility] SARS-COV-2 COVID-19 PFIZER VACCINE 2020-10-10 00:00:00 Completed [facility] SARS-COV-2 COVID-19 PFIZER VACCINE 2020-10-10 00:00:00 Completed [facility] SARS-COV-2 COVID-19 PFIZER VACCINE 2020-10-10 00:00:00 Completed [facility] SARS-COV-2 COVID-19 PFIZER VACCINE 2020-10-10 00:00:00 Completed [facility] SARS-COV-2 COVID-19 PFIZER VACCINE 2020-10-10 00:00:00 Completed [facility] SARS-COV-2 COVID-19 PFIZER VACCINE 2020-10-10 00:00:00 Completed [facility] SARS-COV-2 COVID-19 PFIZER VACCINE 2020-10-10 00:00:00 Completed [facility] SARS-COV-2 COVID-19 PFIZER VACCINE 2020-10-10 00:00:00 Completed [facility] SARS-COV-2 COVID-19 PFIZER VACCINE 2020-10-10 00:00:00 Completed [facility] SARS-COV-2 COVID-19 PFIZER VACCINE 2020-10-10 00:00:00 Completed [facility] SARS-COV-2 COVID-19 PFIZER VACCINE 2020-10-10 00:00:00 Completed [facility] SARS-COV-2 COVID-19 PFIZER VACCINE 2020-10-10 00:00:00 Completed [facility] SARS-COV-2 COVID-19 PFIZER VACCINE 2020-10-10 00:00:00 Completed [facility] SARS-COV-2 COVID-19 PFIZER VACCINE 2020-10-10 00:00:00 Completed [facility] SARS-COV-2 COVID-19 PFIZER VACCINE 2020-10-10 00:00:00 Completed [facility] SARS-COV-2 COVID-19 PFIZER VACCINE 2020-10-10 00:00:00 Completed [facility] SARS-COV-2 COVID-19 PFIZER VACCINE 2020-10-10 00:00:00 Completed [facility] SARS-COV-2 COVID-19 PFIZER VACCINE 2020-10-10 00:00:00 Completed [facility] SARS-COV-2 COVID-19 PFIZER VACCINE 2020-10-10 00:00:00 Completed [facility] SARS-COV-2 COVID-19 PFIZER VACCINE 2020-10-10 00:00:00 Completed [facility] SARS-COV-2 COVID-19 PFIZER VACCINE 2020-10-10 00:00:00 Completed [facility] SARS-COV-2 COVID-19 PFIZER VACCINE 2020-10-10 00:00:00 Completed [facility] SARS-COV-2 COVID-19 PFIZER VACCINE 2020-10-10 00:00:00 Completed [facility] SARS-COV-2 COVID-19 PFIZER VACCINE 2020-10-10 00:00:00 Completed [facility] SARS-COV-2 COVID-19 PFIZER VACCINE 2020-10-10 00:00:00 Completed [facility] SARS-COV-2 COVID-19 PFIZER VACCINE 2020-10-10 00:00:00 Completed [facility] SARS-COV-2 COVID-19 PFIZER VACCINE 2020-10-10 00:00:00 Completed [facility] SARS-COV-2 COVID-19 PFIZER VACCINE 2020-10-10 00:00:00 Completed [facility] SARS-COV-2 COVID-19 PFIZER VACCINE 2020-10-10 00:00:00 Completed [facility] SARS-COV-2 COVID-19 PFIZER VACCINE 2020-10-10 00:00:00 Completed [facility] SARS-COV-2 COVID-19 PFIZER VACCINE 2020-10-10 00:00:00 Completed [facility] SARS-COV-2 COVID-19 PFIZER VACCINE 2020-10-10 00:00:00 Completed [facility] SARS-COV-2 COVID-19 PFIZER VACCINE 2020-10-10 00:00:00 Completed [facility] SARS-COV-2 COVID-19 PFIZER VACCINE 2020-10-10 00:00:00 Completed [facility] SARS-COV-2 COVID-19 PFIZER VACCINE 2020-10-10 00:00:00 Completed [facility] SARS-COV-2 COVID-19 PFIZER VACCINE 2020-10-10 00:00:00 Completed [facility] SARS-COV-2 COVID-19 PFIZER VACCINE 2020-10-10 00:00:00 Completed [facility] SARS-COV-2 COVID-19 PFIZER VACCINE 2020-10-10 00:00:00 Completed [facility] SARS-COV-2 COVID-19 PFIZER VACCINE 2020-10-10 00:00:00 Completed [facility] SARS-COV-2 COVID-19 PFIZER VACCINE 2020-10-10 00:00:00 Completed [facility] SARS-COV-2 COVID-19 PFIZER VACCINE 2020-10-10 00:00:00 Completed [facility] SARS-COV-2 COVID-19 PFIZER VACCINE 2020-10-10 00:00:00 Completed [facility] SARS-COV-2 COVID-19 PFIZER VACCINE 2020-10-10 00:00:00 Completed [facility] SARS-COV-2 COVID-19 PFIZER VACCINE 2020-10-10 00:00:00 Completed [facility] SARS-COV-2 COVID-19 PFIZER VACCINE 2020-10-10 00:00:00 Completed [facility] SARS-COV-2 COVID-19 PFIZER VACCINE 2020-06-25 00:00:00 Completed [facility] SARS-COV-2 COVID-19 PFIZER VACCINE 2020-06-25 00:00:00 Completed [facility] SARS-COV-2 COVID-19 PFIZER VACCINE 2020-06-25 00:00:00 Completed [facility] SARS-COV-2 COVID-19 PFIZER VACCINE 2020-06-25 00:00:00 Completed [facility] SARS-COV-2 COVID-19 PFIZER VACCINE 2020-06-25 00:00:00 Completed [facility] SARS-COV-2 COVID-19 PFIZER VACCINE 2020-06-25 00:00:00 Completed [facility] SARS-COV-2 COVID-19 PFIZER VACCINE 2020-06-25 00:00:00 Completed [facility] SARS-COV-2 COVID-19 PFIZER VACCINE 2020-06-25 00:00:00 Completed [facility] SARS-COV-2 COVID-19 PFIZER VACCINE 2020-06-25 00:00:00 Completed [facility] SARS-COV-2 COVID-19 PFIZER VACCINE 2020-06-25 00:00:00 Completed [facility] SARS-COV-2 COVID-19 PFIZER VACCINE 2020-06-25 00:00:00 Completed [facility] SARS-COV-2 COVID-19 PFIZER VACCINE 2020-06-25 00:00:00 Completed [facility] SARS-COV-2 COVID-19 PFIZER VACCINE 2020-06-25 00:00:00 Completed [facility] SARS-COV-2 COVID-19 PFIZER VACCINE 2020-06-25 00:00:00 Completed [facility] SARS-COV-2 COVID-19 PFIZER VACCINE 2020-06-25 00:00:00 Completed [facility] SARS-COV-2 COVID-19 PFIZER VACCINE 2020-06-25 00:00:00 Completed [facility] SARS-COV-2 COVID-19 PFIZER VACCINE 2020-06-25 00:00:00 Completed [facility] SARS-COV-2 COVID-19 PFIZER VACCINE 2020-06-25 00:00:00 Completed [facility] SARS-COV-2 COVID-19 PFIZER VACCINE 2020-06-25 00:00:00 Completed [facility] SARS-COV-2 COVID-19 PFIZER VACCINE 2020-06-25 00:00:00 Completed [facility] SARS-COV-2 COVID-19 PFIZER VACCINE 2020-06-25 00:00:00 Completed [facility] SARS-COV-2 COVID-19 PFIZER VACCINE 2020-06-25 00:00:00 Completed [facility] SARS-COV-2 COVID-19 PFIZER VACCINE 2020-06-25 00:00:00 Completed [facility] SARS-COV-2 COVID-19 PFIZER VACCINE 2020-06-25 00:00:00 Completed [facility] SARS-COV-2 COVID-19 PFIZER VACCINE 2020-06-25 00:00:00 Completed [facility] SARS-COV-2 COVID-19 PFIZER VACCINE 2020-06-25 00:00:00 Completed [facility] SARS-COV-2 COVID-19 PFIZER VACCINE 2020-06-25 00:00:00 Completed [facility] SARS-COV-2 COVID-19 PFIZER VACCINE 2020-06-25 00:00:00 Completed [facility] SARS-COV-2 COVID-19 PFIZER VACCINE 2020-06-25 00:00:00 Completed [facility] SARS-COV-2 COVID-19 PFIZER VACCINE 2020-06-25 00:00:00 Completed [facility] SARS-COV-2 COVID-19 PFIZER VACCINE 2020-06-25 00:00:00 Completed [facility] SARS-COV-2 COVID-19 PFIZER VACCINE 2020-06-25 00:00:00 Completed [facility] SARS-COV-2 COVID-19 PFIZER VACCINE 2020-06-25 00:00:00 Completed [facility] SARS-COV-2 COVID-19 PFIZER VACCINE 2020-06-25 00:00:00 Completed [facility] SARS-COV-2 COVID-19 PFIZER VACCINE 2020-06-25 00:00:00 Completed [facility] SARS-COV-2 COVID-19 PFIZER VACCINE 2020-06-25 00:00:00 Completed [facility] SARS-COV-2 COVID-19 PFIZER VACCINE 2020-06-25 00:00:00 Completed [facility] SARS-COV-2 COVID-19 PFIZER VACCINE 2020-06-25 00:00:00 Completed [facility] SARS-COV-2 COVID-19 PFIZER VACCINE 2020-06-25 00:00:00 Completed [facility] SARS-COV-2 COVID-19 PFIZER VACCINE 2020-06-25 00:00:00 Completed [facility] SARS-COV-2 COVID-19 PFIZER VACCINE 2020-06-25 00:00:00 Completed [facility] SARS-COV-2 COVID-19 PFIZER VACCINE 2020-06-25 00:00:00 Completed [facility] SARS-COV-2 COVID-19 PFIZER VACCINE 2020-06-25 00:00:00 Completed [facility] SARS-COV-2 COVID-19 PFIZER VACCINE 2020-06-25 00:00:00 Completed [facility] SARS-COV-2 COVID-19 PFIZER VACCINE 2020-06-25 00:00:00 Completed [facility] SARS-COV-2 COVID-19 PFIZER VACCINE 2020-06-25 00:00:00 Completed [facility] SARS-COV-2 COVID-19 PFIZER VACCINE 2020-06-25 00:00:00 Completed [facility] SARS-COV-2 COVID-19 PFIZER VACCINE 2020-06-25 00:00:00 Completed [facility] SARS-COV-2 COVID-19 PFIZER VACCINE 2020-06-25 00:00:00 Completed [facility] SARS-COV-2 COVID-19 PFIZER VACCINE 2020-06-25 00:00:00 Completed [facility] SARS-COV-2 COVID-19 PFIZER VACCINE 2020-06-25 00:00:00 Completed [facility] SARS-COV-2 COVID-19 PFIZER VACCINE 2020-06-25 00:00:00 Completed [facility] SARS-COV-2 COVID-19 PFIZER VACCINE 2020-06-25 00:00:00 Completed [facility] SARS-COV-2 COVID-19 PFIZER VACCINE 2020-06-25 00:00:00 Completed [facility] SARS-COV-2 COVID-19 PFIZER VACCINE 2020-06-25 00:00:00 Completed [facility] SARS-COV-2 COVID-19 PFIZER VACCINE 2020-06-25 00:00:00 Completed [facility] SARS-COV-2 COVID-19 PFIZER VACCINE 2020-06-25 00:00:00 Completed [facility] SARS-COV-2 COVID-19 PFIZER VACCINE 2020-06-25 00:00:00 Completed [facility] SARS-COV-2 COVID-19 PFIZER VACCINE 2020-06-25 00:00:00 Completed [facility] SARS-COV-2 COVID-19 PFIZER VACCINE 2020-06-25 00:00:00 Completed [facility] SARS-COV-2 COVID-19 PFIZER VACCINE 2020-06-25 00:00:00 Completed [facility] SARS-COV-2 COVID-19 PFIZER VACCINE 2020-06-25 00:00:00 Completed [facility] SARS-COV-2 COVID-19 PFIZER VACCINE 2020-06-25 00:00:00 Completed [facility] SARS-COV-2 COVID-19 PFIZER VACCINE 2020-06-04 00:00:00 Completed [facility] SARS-COV-2 COVID-19 PFIZER VACCINE 2020-06-04 00:00:00 Completed [facility] SARS-COV-2 COVID-19 PFIZER VACCINE 2020-06-04 00:00:00 Completed [facility] SARS-COV-2 COVID-19 PFIZER VACCINE 2020-06-04 00:00:00 Completed [facility] SARS-COV-2 COVID-19 PFIZER VACCINE 2020-06-04 00:00:00 Completed [facility] SARS-COV-2 COVID-19 PFIZER VACCINE 2020-06-04 00:00:00 Completed [facility] SARS-COV-2 COVID-19 PFIZER VACCINE 2020-06-04 00:00:00 Completed [facility] SARS-COV-2 COVID-19 PFIZER VACCINE 2020-06-04 00:00:00 Completed [facility] SARS-COV-2 COVID-19 PFIZER VACCINE 2020-06-04 00:00:00 Completed [facility] SARS-COV-2 COVID-19 PFIZER VACCINE 2020-06-04 00:00:00 Completed [facility] SARS-COV-2 COVID-19 PFIZER VACCINE 2020-06-04 00:00:00 Completed [facility] SARS-COV-2 COVID-19 PFIZER VACCINE 2020-06-04 00:00:00 Completed [facility] SARS-COV-2 COVID-19 PFIZER VACCINE 2020-06-04 00:00:00 Completed [facility] SARS-COV-2 COVID-19 PFIZER VACCINE 2020-06-04 00:00:00 Completed [facility] SARS-COV-2 COVID-19 PFIZER VACCINE 2020-06-04 00:00:00 Completed [facility] SARS-COV-2 COVID-19 PFIZER VACCINE 2020-06-04 00:00:00 Completed [facility] SARS-COV-2 COVID-19 PFIZER VACCINE 2020-06-04 00:00:00 Completed [facility] SARS-COV-2 COVID-19 PFIZER VACCINE 2020-06-04 00:00:00 Completed [facility] SARS-COV-2 COVID-19 PFIZER VACCINE 2020-06-04 00:00:00 Completed [facility] SARS-COV-2 COVID-19 PFIZER VACCINE 2020-06-04 00:00:00 Completed [facility] SARS-COV-2 COVID-19 PFIZER VACCINE 2020-06-04 00:00:00 Completed [facility] SARS-COV-2 COVID-19 PFIZER VACCINE 2020-06-04 00:00:00 Completed [facility] SARS-COV-2 COVID-19 PFIZER VACCINE 2020-06-04 00:00:00 Completed [facility] SARS-COV-2 COVID-19 PFIZER VACCINE 2020-06-04 00:00:00 Completed [facility] SARS-COV-2 COVID-19 PFIZER VACCINE 2020-06-04 00:00:00 Completed [facility] SARS-COV-2 COVID-19 PFIZER VACCINE 2020-06-04 00:00:00 Completed [facility] SARS-COV-2 COVID-19 PFIZER VACCINE 2020-06-04 00:00:00 Completed [facility] SARS-COV-2 COVID-19 PFIZER VACCINE 2020-06-04 00:00:00 Completed [facility] SARS-COV-2 COVID-19 PFIZER VACCINE 2020-06-04 00:00:00 Completed [facility] SARS-COV-2 COVID-19 PFIZER VACCINE 2020-06-04 00:00:00 Completed [facility] SARS-COV-2 COVID-19 PFIZER VACCINE 2020-06-04 00:00:00 Completed [facility] SARS-COV-2 COVID-19 PFIZER VACCINE 2020-06-04 00:00:00 Completed [facility] SARS-COV-2 COVID-19 PFIZER VACCINE 2020-06-04 00:00:00 Completed [facility] SARS-COV-2 COVID-19 PFIZER VACCINE 2020-06-04 00:00:00 Completed [facility] SARS-COV-2 COVID-19 PFIZER VACCINE 2020-06-04 00:00:00 Completed [facility] SARS-COV-2 COVID-19 PFIZER VACCINE 2020-06-04 00:00:00 Completed [facility] SARS-COV-2 COVID-19 PFIZER VACCINE 2020-06-04 00:00:00 Completed [facility] SARS-COV-2 COVID-19 PFIZER VACCINE 2020-06-04 00:00:00 Completed [facility] SARS-COV-2 COVID-19 PFIZER VACCINE 2020-06-04 00:00:00 Completed [facility] SARS-COV-2 COVID-19 PFIZER VACCINE 2020-06-04 00:00:00 Completed [facility] SARS-COV-2 COVID-19 PFIZER VACCINE 2020-06-04 00:00:00 Completed [facility] SARS-COV-2 COVID-19 PFIZER VACCINE 2020-06-04 00:00:00 Completed [facility] SARS-COV-2 COVID-19 PFIZER VACCINE 2020-06-04 00:00:00 Completed [facility] SARS-COV-2 COVID-19 PFIZER VACCINE 2020-06-04 00:00:00 Completed [facility] SARS-COV-2 COVID-19 PFIZER VACCINE 2020-06-04 00:00:00 Completed [facility] SARS-COV-2 COVID-19 PFIZER VACCINE 2020-06-04 00:00:00 Completed [facility] SARS-COV-2 COVID-19 PFIZER VACCINE 2020-06-04 00:00:00 Completed [facility] SARS-COV-2 COVID-19 PFIZER VACCINE 2020-06-04 00:00:00 Completed [facility] SARS-COV-2 COVID-19 PFIZER VACCINE 2020-06-04 00:00:00 Completed [facility] SARS-COV-2 COVID-19 PFIZER VACCINE 2020-06-04 00:00:00 Completed [facility] SARS-COV-2 COVID-19 PFIZER VACCINE 2020-06-04 00:00:00 Completed [facility] SARS-COV-2 COVID-19 PFIZER VACCINE 2020-06-04 00:00:00 Completed [facility] SARS-COV-2 COVID-19 PFIZER VACCINE 2020-06-04 00:00:00 Completed [facility] SARS-COV-2 COVID-19 PFIZER VACCINE 2020-06-04 00:00:00 Completed [facility] SARS-COV-2 COVID-19 PFIZER VACCINE 2020-06-04 00:00:00 Completed [facility] SARS-COV-2 COVID-19 PFIZER VACCINE 2020-06-04 00:00:00 Completed [facility] SARS-COV-2 COVID-19 PFIZER VACCINE 2020-06-04 00:00:00 Completed [facility] SARS-COV-2 COVID-19 PFIZER VACCINE 2020-06-04 00:00:00 Completed [facility] SARS-COV-2 COVID-19 PFIZER VACCINE 2020-06-04 00:00:00 Completed [facility] SARS-COV-2 COVID-19 PFIZER VACCINE 2020-06-04 00:00:00 Completed [facility] SARS-COV-2 COVID-19 PFIZER VACCINE 2020-06-04 00:00:00 Completed [facility] SARS-COV-2 COVID-19 PFIZER VACCINE 2020-06-04 00:00:00 Completed [facility] SARS-COV-2 COVID-19 PFIZER VACCINE 2020-06-04 00:00:00 Completed [facility] Influenza Virus Vaccine Quad IM, Preserv and ABX Free 6 MO-64 YRS 2019-04-09 00:00:00 Completed [facility] Influenza Virus Vaccine Quad IM, Preserv and ABX Free 6 MO-64 YRS 2019-04-09 00:00:00 Completed [facility] Influenza Virus Vaccine Quad IM, Preserv and ABX Free 6 MO-64 YRS 2019-04-09 00:00:00 Completed [facility] Influenza Virus Vaccine Quad IM, Preserv and ABX Free 6 MO-64 YRS 2019-04-09 00:00:00 Completed [facility] Influenza Virus Vaccine Quad IM, Preserv and ABX Free 6 MO-64 YRS 2019-04-09 00:00:00 Completed [facility] Influenza Virus Vaccine Quad IM, Preserv and ABX Free 6 MO-64 YRS 2019-04-09 00:00:00 Completed [facility] Influenza Virus Vaccine Quad IM, Preserv and ABX Free 6 MO-64 YRS 2019-04-09 00:00:00 Completed [facility] Influenza Virus Vaccine Quad IM, Preserv and ABX Free 6 MO-64 YRS 2019-04-09 00:00:00 Completed [facility] Influenza Virus Vaccine Quad IM, Preserv and ABX Free 6 MO-64 YRS 2019-04-09 00:00:00 Completed [facility] Influenza Virus Vaccine Quad IM, Preserv and ABX Free 6 MO-64 YRS 2019-04-09 00:00:00 Completed [facility] Influenza Virus Vaccine Quad IM, Preserv and ABX Free 6 MO-64 YRS 2019-04-09 00:00:00 Completed [facility] Influenza Virus Vaccine Quad IM, Preserv and ABX Free 6 MO-64 YRS 2019-04-09 00:00:00 Completed [facility] Influenza Virus Vaccine Quad IM, Preserv and ABX Free 6 MO-64 YRS 2019-04-09 00:00:00 Completed [facility] Influenza Virus Vaccine Quad IM, Preserv and ABX Free 6 MO-64 YRS 2019-04-09 00:00:00 Completed [facility] Influenza Virus Vaccine Quad IM, Preserv and ABX Free 6 MO-64 YRS 2019-04-09 00:00:00 Completed [facility] Influenza Virus Vaccine Quad IM, Preserv and ABX Free 6 MO-64 YRS 2019-04-09 00:00:00 Completed [facility] Influenza Virus Vaccine Quad IM, Preserv and ABX Free 6 MO-64 YRS 2019-04-09 00:00:00 Completed [facility] Influenza Virus Vaccine Quad IM, Preserv and ABX Free 6 MO-64 YRS 2019-04-09 00:00:00 Completed [facility] Influenza Virus Vaccine Quad IM, Preserv and ABX Free 6 MO-64 YRS 2019-04-09 00:00:00 Completed [facility] Influenza Virus Vaccine Quad IM, Preserv and ABX Free 6 MO-64 YRS 2019-04-09 00:00:00 Completed [facility] Influenza Virus Vaccine Quad IM, Preserv and ABX Free 6 MO-64 YRS 2019-04-09 00:00:00 Completed [facility] Influenza Virus Vaccine Quad IM, Preserv and ABX Free 6 MO-64 YRS 2019-04-09 00:00:00 Completed [facility] Influenza Virus Vaccine Quad IM, Preserv and ABX Free 6 MO-64 YRS 2019-04-09 00:00:00 Completed [facility] Influenza Virus Vaccine Quad IM, Preserv and ABX Free 6 MO-64 YRS 2019-04-09 00:00:00 Completed [facility] Influenza Virus Vaccine Quad IM, Preserv and ABX Free 6 MO-64 YRS 2019-04-09 00:00:00 Completed [facility] Influenza Virus Vaccine Quad IM, Preserv and ABX Free 6 MO-64 YRS 2019-04-09 00:00:00 Completed [facility] Influenza Virus Vaccine Quad IM, Preserv and ABX Free 6 MO-64 YRS 2019-04-09 00:00:00 Completed [facility] Influenza Virus Vaccine Quad IM, Preserv and ABX Free 6 MO-64 YRS 2019-04-09 00:00:00 Completed [facility] Influenza Virus Vaccine Quad IM, Preserv and ABX Free 6 MO-64 YRS 2019-04-09 00:00:00 Completed [facility] Influenza Virus Vaccine Quad IM, Preserv and ABX Free 6 MO-64 YRS 2019-04-09 00:00:00 Completed [facility] Influenza Virus Vaccine Quad IM, Preserv and ABX Free 6 MO-64 YRS 2019-04-09 00:00:00 Completed [facility] Influenza Virus Vaccine Quad IM, Preserv and ABX Free 6 MO-64 YRS 2019-04-09 00:00:00 Completed [facility] Influenza Virus Vaccine Quad IM, Preserv and ABX Free 6 MO-64 YRS 2019-04-09 00:00:00 Completed [facility] Influenza Virus Vaccine Quad IM, Preserv and ABX Free 6 MO-64 YRS 2019-04-09 00:00:00 Completed [facility] Influenza Virus Vaccine Quad IM, Preserv and ABX Free 6 MO-64 YRS 2019-04-09 00:00:00 Completed [facility] Influenza Virus Vaccine Quad IM, Preserv and ABX Free 6 MO-64 YRS 2019-04-09 00:00:00 Completed [facility] Influenza Virus Vaccine Quad IM, Preserv and ABX Free 6 MO-64 YRS 2019-04-09 00:00:00 Completed [facility] Influenza Virus Vaccine Quad IM, Preserv and ABX Free 6 MO-64 YRS 2019-04-09 00:00:00 Completed [facility] Influenza Virus Vaccine Quad IM, Preserv and ABX Free 6 MO-64 YRS 2019-04-09 00:00:00 Completed [facility] Influenza Virus Vaccine Quad IM, Preserv and ABX Free 6 MO-64 YRS 2019-04-09 00:00:00 Completed [facility] Influenza Virus Vaccine Quad IM, Preserv and ABX Free 6 MO-64 YRS 2019-04-09 00:00:00 Completed [facility] Influenza Virus Vaccine Quad IM, Preserv and ABX Free 6 MO-64 YRS 2019-04-09 00:00:00 Completed [facility] Influenza Virus Vaccine Quad IM, Preserv and ABX Free 6 MO-64 YRS 2019-04-09 00:00:00 Completed [facility] Influenza Virus Vaccine Quad IM, Preserv and ABX Free 6 MO-64 YRS 2019-04-09 00:00:00 Completed [facility] Influenza Virus Vaccine Quad IM, Preserv and ABX Free 6 MO-64 YRS 2019-04-09 00:00:00 Completed [facility] Flucelvax - single dose syringe Flucelvax - single dose syringe 2019-04-09 00:00:00 Completed [facility] Influenza Virus Vaccine Quad .5 mL IM 6+ MO 2018-01-14 00:00:00 Completed [facility] Influenza Virus Vaccine 2018-01-14 00:00:00 Completed [facility] Influenza Virus Vaccine Quad .5 mL IM 6+ MO 2018-01-14 00:00:00 Completed [facility] Influenza Virus Vaccine 2018-01-14 00:00:00 Completed [facility] Influenza Virus Vaccine Quad .5 mL IM 6+ MO 2018-01-14 00:00:00 Completed [facility] Influenza Virus Vaccine 2018-01-14 00:00:00 Completed [facility] Influenza Virus Vaccine Quad .5 mL IM 6+ MO 2018-01-14 00:00:00 Completed [facility] Influenza Virus Vaccine 2018-01-14 00:00:00 Completed [facility] Influenza Virus Vaccine Quad .5 mL IM 6+ MO 2018-01-14 00:00:00 Completed [facility] Influenza Virus Vaccine 2018-01-14 00:00:00 Completed [facility] Influenza Virus Vaccine Quad .5 mL IM 6+ MO 2018-01-14 00:00:00 Completed [facility] Influenza Virus Vaccine 2018-01-14 00:00:00 Completed [facility] Influenza Virus Vaccine Quad .5 mL IM 6+ MO 2018-01-14 00:00:00 Completed [facility] Influenza Virus Vaccine 2018-01-14 00:00:00 Completed [facility] Influenza Virus Vaccine Quad .5 mL IM 6+ MO 2018-01-14 00:00:00 Completed [facility] Influenza Virus Vaccine 2018-01-14 00:00:00 Completed [facility] Influenza Virus Vaccine Quad .5 mL IM 6+ MO 2018-01-14 00:00:00 Completed [facility] Influenza Virus Vaccine 2018-01-14 00:00:00 Completed [facility] Influenza Virus Vaccine Quad .5 mL IM 6+ MO 2018-01-14 00:00:00 Completed [facility] Influenza Virus Vaccine 2018-01-14 00:00:00 Completed [facility] Influenza Virus Vaccine Quad .5 mL IM 6+ MO 2018-01-14 00:00:00 Completed [facility] Influenza Virus Vaccine 2018-01-14 00:00:00 Completed [facility] Influenza Virus Vaccine Quad .5 mL IM 6+ MO 2018-01-14 00:00:00 Completed [facility] Influenza Virus Vaccine 2018-01-14 00:00:00 Completed [facility] Influenza Virus Vaccine Quad .5 mL IM 6+ MO 2018-01-14 00:00:00 Completed [facility] Influenza Virus Vaccine 2018-01-14 00:00:00 Completed [facility] Influenza Virus Vaccine Quad .5 mL IM 6+ MO 2018-01-14 00:00:00 Completed [facility] Influenza Virus Vaccine 2018-01-14 00:00:00 Completed [facility] Influenza Virus Vaccine Quad .5 mL IM 6+ MO 2018-01-14 00:00:00 Completed [facility] Influenza Virus Vaccine 2018-01-14 00:00:00 Completed [facility] Influenza Virus Vaccine Quad .5 mL IM 6+ MO 2018-01-14 00:00:00 Completed [facility] Influenza Virus Vaccine 2018-01-14 00:00:00 Completed [facility] Influenza Virus Vaccine Quad .5 mL IM 6+ MO 2018-01-14 00:00:00 Completed [facility] Influenza Virus Vaccine 2018-01-14 00:00:00 Completed [facility] Influenza Virus Vaccine Quad .5 mL IM 6+ MO 2018-01-14 00:00:00 Completed [facility] Influenza Virus Vaccine 2018-01-14 00:00:00 Completed [facility] Influenza Virus Vaccine Quad .5 mL IM 6+ MO 2018-01-14 00:00:00 Completed [facility] Influenza Virus Vaccine 2018-01-14 00:00:00 Completed [facility] Influenza Virus Vaccine Quad .5 mL IM 6+ MO 2018-01-14 00:00:00 Completed [facility] Influenza Virus Vaccine 2018-01-14 00:00:00 Completed [facility] Influenza Virus Vaccine Quad .5 mL IM 6+ MO 2018-01-14 00:00:00 Completed [facility] Influenza Virus Vaccine 2018-01-14 00:00:00 Completed [facility] Influenza Virus Vaccine Quad .5 mL IM 6+ MO 2018-01-14 00:00:00 Completed [facility] Influenza Virus Vaccine 2018-01-14 00:00:00 Completed [facility] Influenza Virus Vaccine Quad .5 mL IM 6+ MO 2018-01-14 00:00:00 Completed [facility] Influenza Virus Vaccine 2018-01-14 00:00:00 Completed [facility] Influenza Virus Vaccine Quad .5 mL IM 6+ MO 2018-01-14 00:00:00 Completed [facility] Influenza Virus Vaccine 2018-01-14 00:00:00 Completed [facility] Influenza Virus Vaccine Quad .5 mL IM 6+ MO 2018-01-14 00:00:00 Completed [facility] Influenza Virus Vaccine 2018-01-14 00:00:00 Completed [facility] Influenza Virus Vaccine Quad .5 mL IM 6+ MO 2018-01-14 00:00:00 Completed [facility] Influenza Virus Vaccine 2018-01-14 00:00:00 Completed [facility] Influenza Virus Vaccine Quad .5 mL IM 6+ MO 2018-01-14 00:00:00 Completed [facility] Influenza Virus Vaccine 2018-01-14 00:00:00 Completed [facility] Influenza Virus Vaccine Quad .5 mL IM 6+ MO 2018-01-14 00:00:00 Completed [facility] Influenza Virus Vaccine 2018-01-14 00:00:00 Completed [facility] Influenza Virus Vaccine Quad .5 mL IM 6+ MO 2018-01-14 00:00:00 Completed [facility] Influenza Virus Vaccine 2018-01-14 00:00:00 Completed [facility] Influenza Virus Vaccine Quad .5 mL IM 6+ MO 2018-01-14 00:00:00 Completed [facility] Influenza Virus Vaccine 2018-01-14 00:00:00 Completed [facility] Influenza Virus Vaccine Quad .5 mL IM 6+ MO 2018-01-14 00:00:00 Completed [facility] Influenza Virus Vaccine 2018-01-14 00:00:00 Completed [facility] Influenza Virus Vaccine Quad .5 mL IM 6+ MO 2018-01-14 00:00:00 Completed [facility] Influenza Virus Vaccine 2018-01-14 00:00:00 Completed [facility] Influenza Virus Vaccine Quad .5 mL IM 6+ MO 2018-01-14 00:00:00 Completed [facility] Influenza Virus Vaccine 2018-01-14 00:00:00 Completed [facility] Influenza Virus Vaccine Quad .5 mL IM 6+ MO 2018-01-14 00:00:00 Completed [facility] Influenza Virus Vaccine 2018-01-14 00:00:00 Completed [facility] Influenza Virus Vaccine Quad .5 mL IM 6+ MO 2018-01-14 00:00:00 Completed [facility] Influenza Virus Vaccine 2018-01-14 00:00:00 Completed [facility] Influenza Virus Vaccine Quad .5 mL IM 6+ MO 2018-01-14 00:00:00 Completed [facility] Influenza Virus Vaccine 2018-01-14 00:00:00 Completed [facility] Influenza Virus Vaccine Quad .5 mL IM 6+ MO 2018-01-14 00:00:00 Completed [facility] Influenza Virus Vaccine 2018-01-14 00:00:00 Completed [facility] Influenza Virus Vaccine Quad .5 mL IM 6+ MO 2018-01-14 00:00:00 Completed [facility] Influenza Virus Vaccine 2018-01-14 00:00:00 Completed [facility] Influenza Virus Vaccine Quad .5 mL IM 6+ MO 2018-01-14 00:00:00 Completed [facility] Influenza Virus Vaccine 2018-01-14 00:00:00 Completed [facility] Influenza Virus Vaccine Quad .5 mL IM 6+ MO 2018-01-14 00:00:00 Completed [facility] Influenza Virus Vaccine 2018-01-14 00:00:00 Completed [facility] Influenza Virus Vaccine Quad .5 mL IM 6+ MO 2018-01-14 00:00:00 Completed [facility] Influenza Virus Vaccine 2018-01-14 00:00:00 Completed [facility] Influenza Virus Vaccine Quad .5 mL IM 6+ MO 2018-01-14 00:00:00 Completed [facility] Influenza Virus Vaccine 2018-01-14 00:00:00 Completed [facility] Influenza Virus Vaccine Quad .5 mL IM 6+ MO 2018-01-14 00:00:00 Completed [facility] Influenza Virus Vaccine 2018-01-14 00:00:00 Completed [facility] Influenza Virus Vaccine Quad .5 mL IM 6+ MO 2018-01-14 00:00:00 Completed [facility] Influenza Virus Vaccine 2018-01-14 00:00:00 Completed [facility] Influenza Virus Vaccine Quad .5 mL IM 6+ MO 2018-01-14 00:00:00 Completed [facility] Influenza Virus Vaccine 2018-01-14 00:00:00 Completed [facility] Influenza Virus Vaccine Quad .5 mL IM 6+ MO 2018-01-14 00:00:00 Completed [facility] Influenza Virus Vaccine 2018-01-14 00:00:00 Completed [facility] Influenza Virus Vaccine Quad .5 mL IM 6+ MO 2018-01-14 00:00:00 Completed [facility] Influenza Virus Vaccine 2018-01-14 00:00:00 Completed [facility] Influenza Virus Vaccine Quad .5 mL IM 6+ MO 2018-01-14 00:00:00 Completed [facility] Influenza Virus Vaccine 2018-01-14 00:00:00 Completed [facility] Influenza Virus Vaccine Quad .5 mL IM 6+ MO 2018-01-14 00:00:00 Completed [facility] Influenza Virus Vaccine 2018-01-14 00:00:00 Completed [facility] Influenza Virus Vaccine Quad .5 mL IM 6+ MO 2018-01-14 00:00:00 Completed [facility] Influenza Virus Vaccine 2018-01-14 00:00:00 Completed [facility] Influenza Virus Vaccine Quad .5 mL IM 6+ MO 2018-01-14 00:00:00 Completed [facility] Influenza Virus Vaccine 2018-01-14 00:00:00 Completed [facility] Influenza Virus Vaccine Quad .5 mL IM 6+ MO 2018-01-14 00:00:00 Completed [facility] Influenza Virus Vaccine 2018-01-14 00:00:00 Completed [facility] Influenza Virus Vaccine Quad .5 mL IM 6+ MO 2018-01-14 00:00:00 Completed [facility] Influenza Virus Vaccine 2018-01-14 00:00:00 Completed [facility] Influenza Virus Vaccine Quad .5 mL IM 6+ MO 2018-01-14 00:00:00 Completed [facility] Influenza Virus Vaccine 2018-01-14 00:00:00 Completed [facility] Influenza Virus Vaccine Quad .5 mL IM 6+ MO 2018-01-14 00:00:00 Completed [facility] Influenza Virus Vaccine 2018-01-14 00:00:00 Completed [facility] Influenza Virus Vaccine Quad .5 mL IM 6+ MO 2018-01-14 00:00:00 Completed [facility] Influenza Virus Vaccine 2018-01-14 00:00:00 Completed [facility] Influenza Virus Vaccine Quad .5 mL IM 6+ MO 2018-01-14 00:00:00 Completed [facility] Influenza Virus Vaccine 2018-01-14 00:00:00 Completed [facility] Influenza Virus Vaccine Quad .5 mL IM 6+ MO 2018-01-14 00:00:00 Completed [facility] Influenza Virus Vaccine 2018-01-14 00:00:00 Completed [facility] Influenza Virus Vaccine Quad .5 mL IM 6+ MO 2018-01-14 00:00:00 Completed [facility] Influenza Virus Vaccine 2018-01-14 00:00:00 Completed [facility] Influenza Virus Vaccine Quad .5 mL IM 6+ MO 2018-01-14 00:00:00 Completed [facility] Influenza Virus Vaccine 2018-01-14 00:00:00 Completed [facility] Influenza Virus Vaccine Quad .5 mL IM 6+ MO 2018-01-14 00:00:00 Completed [facility] Influenza Virus Vaccine 2018-01-14 00:00:00 Completed [facility] Influenza Virus Vaccine Quad .5 mL IM 6+ MO 2018-01-14 00:00:00 Completed [facility] Influenza Virus Vaccine 2018-01-14 00:00:00 Completed [facility] Influenza Virus Vaccine Quad .5 mL IM 6+ MO 2018-01-14 00:00:00 Completed [facility] Influenza Virus Vaccine 2018-01-14 00:00:00 Completed [facility] Influenza Virus Vaccine Quad .5 mL IM 6+ MO (FLUZONE/FLULAVAL/F LUARIX) Unknown Completed [facility] Influenza Virus Vaccine Unknown Completed [facility] SARS-COV-2 COVID-19 PFIZER VACCINE Unknown Completed [facility] SARS-COV-2 COVID-19 PFIZER VACCINE Unknown Completed [facility] Influenza Virus Vaccine Quad IM, Preserv and ABX Free 6 MO-64 YRS (FLUCELVAX) Unknown Completed [facility] Pneumococcal 13 Conjugate, PCV13 (Prevnar 13) Unknown Completed [facility] TDAP Unknown Completed [facility] SARS-COV-2 COVID-19 PFIZER VACCINE Unknown Completed [facility] Influenza Virus Vaccine Quad IM, Preserv and ABX Free 6 MO-64 YRS (FLUCELVAX) Unknown Completed [facility] Influenza Virus Vaccine Quad .5 mL IM 6+ MO (FLUZONE/FLULAVAL/F LUARIX) Unknown Completed [facility] Influenza Virus Vaccine Unknown Completed [facility] SARS-COV-2 COVID-19 PFIZER VACCINE Unknown Completed [facility] SARS-COV-2 COVID-19 PFIZER VACCINE Unknown Completed [facility] Influenza Virus Vaccine Quad IM, Preserv and ABX Free 6 MO-64 YRS (FLUCELVAX) Unknown Completed [facility] Pneumococcal 13 Conjugate, PCV13 (Prevnar 13) Unknown Completed [facility] TDAP Unknown Completed [facility] SARS-COV-2 COVID-19 PFIZER VACCINE Unknown Completed [facility] Influenza Virus Vaccine Quad IM, Preserv and ABX Free 6 MO-64 YRS (FLUCELVAX) Unknown Completed [facility] Influenza Virus Vaccine Quad .5 mL IM 6+ MO (FLUZONE/FLULAVAL/F LUARIX) Unknown Completed [facility] Influenza Virus Vaccine Unknown Completed [facility] SARS-COV-2 COVID-19 PFIZER VACCINE Unknown Completed [facility] SARS-COV-2 COVID-19 PFIZER VACCINE Unknown Completed [facility] Influenza Virus Vaccine Quad IM, Preserv and ABX Free 6 MO-64 YRS (FLUCELVAX) Unknown Completed [facility] Pneumococcal 13 Conjugate, PCV13 (Prevnar 13) Unknown Completed [facility] TDAP Unknown Completed [facility] SARS-COV-2 COVID-19 PFIZER VACCINE Unknown Completed [facility] Influenza Virus Vaccine Quad IM, Preserv and ABX Free 6 MO-64 YRS (FLUCELVAX) Unknown Completed [facility] Influenza Virus Vaccine Quad .5 mL IM 6+ MO (FLUZONE/FLULAVAL/F LUARIX) Unknown Completed [facility] Influenza Virus Vaccine Unknown Completed [facility] SARS-COV-2 COVID-19 PFIZER VACCINE Unknown Completed [facility] SARS-COV-2 COVID-19 PFIZER VACCINE Unknown Completed [facility] Influenza Virus Vaccine Quad IM, Preserv and ABX Free 6 MO-64 YRS (FLUCELVAX) Unknown Completed [facility] Pneumococcal 13 Conjugate, PCV13 (Prevnar 13) Unknown Completed [facility] TDAP Unknown Completed [facility] SARS-COV-2 COVID-19 PFIZER VACCINE Unknown Completed [facility] Influenza Virus Vaccine Quad IM, Preserv and ABX Free 6 MO-64 YRS (FLUCELVAX) Unknown Completed [facility] Influenza Virus Vaccine Quad .5 mL IM 6+ MO (FLUZONE/FLULAVAL/F LUARIX) Unknown Completed [facility] Influenza Virus Vaccine Unknown Completed [facility] SARS-COV-2 COVID-19 PFIZER VACCINE Unknown Completed [facility] SARS-COV-2 COVID-19 PFIZER VACCINE Unknown Completed [facility] Influenza Virus Vaccine Quad IM, Preserv and ABX Free 6 MO-64 YRS (FLUCELVAX) Unknown Completed [facility] Pneumococcal 13 Conjugate, PCV13 (Prevnar 13) Unknown Completed [facility] TDAP Unknown Completed [facility] SARS-COV-2 COVID-19 PFIZER VACCINE Unknown Completed [facility] Influenza Virus Vaccine Quad IM, Preserv and ABX Free 6 MO-64 YRS (FLUCELVAX) Unknown Completed [facility] Influenza Virus Vaccine Quad .5 mL IM 6+ MO (FLUZONE/FLULAVAL/F LUARIX) Unknown Completed [facility] Influenza Virus Vaccine Unknown Completed [facility] SARS-COV-2 COVID-19 PFIZER VACCINE Unknown Completed [facility] SARS-COV-2 COVID-19 PFIZER VACCINE Unknown Completed [facility] Influenza Virus Vaccine Quad IM, Preserv and ABX Free 6 MO-64 YRS (FLUCELVAX) Unknown Completed [facility] Pneumococcal 13 Conjugate, PCV13 (Prevnar 13) Unknown Completed [facility] TDAP Unknown Completed [facility] SARS-COV-2 COVID-19 PFIZER VACCINE Unknown Completed [facility] Influenza Virus Vaccine Quad IM, Preserv and ABX Free 6 MO-64 YRS (FLUCELVAX) Unknown Completed [facility] Influenza Virus Vaccine Quad .5 mL IM 6+ MO (FLUZONE/FLULAVAL/F LUARIX) Unknown Completed [facility] Influenza Virus Vaccine Unknown Completed [facility] SARS-COV-2 COVID-19 PFIZER VACCINE Unknown Completed [facility] SARS-COV-2 COVID-19 PFIZER VACCINE Unknown Completed [facility] Influenza Virus Vaccine Quad IM, Preserv and ABX Free 6 MO-64 YRS (FLUCELVAX) Unknown Completed [facility] Pneumococcal 13 Conjugate, PCV13 (Prevnar 13) Unknown Completed [facility] TDAP Unknown Completed [facility] SARS-COV-2 COVID-19 PFIZER VACCINE Unknown Completed [facility] Influenza Virus Vaccine Quad IM, Preserv and ABX Free 6 MO-64 YRS (FLUCELVAX) Unknown Completed [facility] Influenza Virus Vaccine Quad .5 mL IM 6+ MO (FLUZONE/FLULAVAL/F LUARIX) Unknown Completed [facility] Influenza Virus Vaccine Unknown Completed [facility] SARS-COV-2 COVID-19 PFIZER VACCINE Unknown Completed [facility] SARS-COV-2 COVID-19 PFIZER VACCINE Unknown Completed [facility] Influenza Virus Vaccine Quad IM, Preserv and ABX Free 6 MO-64 YRS (FLUCELVAX) Unknown Completed [facility] Pneumococcal 13 Conjugate, PCV13 (Prevnar 13) Unknown Completed [facility] TDAP Unknown Completed [facility] SARS-COV-2 COVID-19 PFIZER VACCINE Unknown Completed [facility] Influenza Virus Vaccine Quad IM, Preserv and ABX Free 6 MO-64 YRS (FLUCELVAX) Unknown Completed [facility] Influenza Virus Vaccine Quad .5 mL IM 6+ MO (FLUZONE/FLULAVAL/F LUARIX) Unknown Completed [facility] Influenza Virus Vaccine Unknown Completed [facility] SARS-COV-2 COVID-19 PFIZER VACCINE Unknown Completed [facility] SARS-COV-2 COVID-19 PFIZER VACCINE Unknown Completed [facility] Influenza Virus Vaccine Quad IM, Preserv and ABX Free 6 MO-64 YRS (FLUCELVAX) Unknown Completed [facility] Pneumococcal 13 Conjugate, PCV13 (Prevnar 13) Unknown Completed [facility] TDAP Unknown Completed [facility] SARS-COV-2 COVID-19 PFIZER VACCINE Unknown Completed [facility] Influenza Virus Vaccine Quad IM, Preserv and ABX Free 6 MO-64 YRS (FLUCELVAX) Unknown Completed [facility] Influenza Virus Vaccine Quad .5 mL IM 6+ MO (FLUZONE/FLULAVAL/F LUARIX) Unknown Completed [facility] Influenza Virus Vaccine Unknown Completed [facility] SARS-COV-2 COVID-19 PFIZER VACCINE Unknown Completed [facility] SARS-COV-2 COVID-19 PFIZER VACCINE Unknown Completed [facility] Influenza Virus Vaccine Quad IM, Preserv and ABX Free 6 MO-64 YRS (FLUCELVAX) Unknown Completed [facility] Pneumococcal 13 Conjugate, PCV13 (Prevnar 13) Unknown Completed [facility] TDAP Unknown Completed [facility] SARS-COV-2 COVID-19 PFIZER VACCINE Unknown Completed [facility] Influenza Virus Vaccine Quad IM, Preserv and ABX Free 6 MO-64 YRS (FLUCELVAX) Unknown Completed [facility] Influenza Virus Vaccine Quad .5 mL IM 6+ MO (FLUZONE/FLULAVAL/F LUARIX) Unknown Completed [facility] Influenza Virus Vaccine Unknown Completed [facility] SARS-COV-2 COVID-19 PFIZER VACCINE Unknown Completed [facility] SARS-COV-2 COVID-19 PFIZER VACCINE Unknown Completed [facility] Influenza Virus Vaccine Quad IM, Preserv and ABX Free 6 MO-64 YRS (FLUCELVAX) Unknown Completed [facility] Pneumococcal 13 Conjugate, PCV13 (Prevnar 13) Unknown Completed [facility] TDAP Unknown Completed [facility] SARS-COV-2 COVID-19 PFIZER VACCINE Unknown Completed [facility] Influenza Virus Vaccine Quad IM, Preserv and ABX Free 6 MO-64 YRS (FLUCELVAX) Unknown Completed [facility] Influenza Virus Vaccine Quad .5 mL IM 6+ MO (FLUZONE/FLULAVAL/F LUARIX) Unknown Completed [facility] Influenza Virus Vaccine Unknown Completed [facility] SARS-COV-2 COVID-19 PFIZER VACCINE Unknown Completed [facility] SARS-COV-2 COVID-19 PFIZER VACCINE Unknown Completed [facility] Influenza Virus Vaccine Quad IM, Preserv and ABX Free 6 MO-64 YRS (FLUCELVAX) Unknown Completed [facility] Pneumococcal 13 Conjugate, PCV13 (Prevnar 13) Unknown Completed [facility] TDAP Unknown Completed [facility] SARS-COV-2 COVID-19 PFIZER VACCINE Unknown Completed [facility] Influenza Virus Vaccine Quad IM, Preserv and ABX Free 6 MO-64 YRS (FLUCELVAX) Unknown Completed [facility] Influenza Virus Vaccine Quad .5 mL IM 6+ MO (FLUZONE/FLULAVAL/F LUARIX) Unknown Completed [facility] Influenza Virus Vaccine Unknown Completed [facility] SARS-COV-2 COVID-19 PFIZER VACCINE Unknown Completed [facility] SARS-COV-2 COVID-19 PFIZER VACCINE Unknown Completed [facility] Influenza Virus Vaccine Quad IM, Preserv and ABX Free 6 MO-64 YRS (FLUCELVAX) Unknown Completed [facility] Pneumococcal 13 Conjugate, PCV13 (Prevnar 13) Unknown Completed [facility] TDAP Unknown Completed [facility] SARS-COV-2 COVID-19 PFIZER VACCINE Unknown Completed [facility] Influenza Virus Vaccine Quad IM, Preserv and ABX Free 6 MO-64 YRS (FLUCELVAX) Unknown Completed [facility] Influenza Virus Vaccine Quad .5 mL IM 6+ MO (FLUZONE/FLULAVAL/F LUARIX) Unknown Completed [facility] Influenza Virus Vaccine Unknown Completed [facility] SARS-COV-2 COVID-19 PFIZER VACCINE Unknown Completed [facility] SARS-COV-2 COVID-19 PFIZER VACCINE Unknown Completed [facility] Influenza Virus Vaccine Quad IM, Preserv and ABX Free 6 MO-64 YRS (FLUCELVAX) Unknown Completed [facility] Pneumococcal 13 Conjugate, PCV13 (Prevnar 13) Unknown Completed [facility] TDAP Unknown Completed [facility] SARS-COV-2 COVID-19 PFIZER VACCINE Unknown Completed [facility] Influenza Virus Vaccine Quad IM, Preserv and ABX Free 6 MO-64 YRS (FLUCELVAX) Unknown Completed [facility] Influenza Virus Vaccine Quad .5 mL IM 6+ MO (FLUZONE/FLULAVAL/F LUARIX) Unknown Completed [facility] Influenza Virus Vaccine Unknown Completed [facility] SARS-COV-2 COVID-19 PFIZER VACCINE Unknown Completed [facility] SARS-COV-2 COVID-19 PFIZER VACCINE Unknown Completed [facility] Influenza Virus Vaccine Quad IM, Preserv and ABX Free 6 MO-64 YRS (FLUCELVAX) Unknown Completed [facility] Pneumococcal 13 Conjugate, PCV13 (Prevnar 13) Unknown Completed [facility] TDAP Unknown Completed [facility] SARS-COV-2 COVID-19 PFIZER VACCINE Unknown Completed [facility] Influenza Virus Vaccine Quad IM, Preserv and ABX Free 6 MO-64 YRS (FLUCELVAX) Unknown Completed [facility] Influenza Virus Vaccine Quad .5 mL IM 6+ MO (FLUZONE/FLULAVAL/F LUARIX) Unknown Completed [facility] Influenza Virus Vaccine Unknown Completed [facility] SARS-COV-2 COVID-19 PFIZER VACCINE Unknown Completed [facility] SARS-COV-2 COVID-19 PFIZER VACCINE Unknown Completed [facility] Influenza Virus Vaccine Quad IM, Preserv and ABX Free 6 MO-64 YRS (FLUCELVAX) Unknown Completed [facility] Pneumococcal 13 Conjugate, PCV13 (Prevnar 13) Unknown Completed [facility] TDAP Unknown Completed [facility] SARS-COV-2 COVID-19 PFIZER VACCINE Unknown Completed [facility] Influenza Virus Vaccine Quad IM, Preserv and ABX Free 6 MO-64 YRS (FLUCELVAX) Unknown Completed [facility] Influenza Virus Vaccine Quad .5 mL IM 6+ MO (FLUZONE/FLULAVAL/F LUARIX) Unknown Completed [facility] Influenza Virus Vaccine Unknown Completed [facility] SARS-COV-2 COVID-19 PFIZER VACCINE Unknown Completed [facility] SARS-COV-2 COVID-19 PFIZER VACCINE Unknown Completed [facility] Influenza Virus Vaccine Quad IM, Preserv and ABX Free 6 MO-64 YRS (FLUCELVAX) Unknown Completed [facility] Pneumococcal 13 Conjugate, PCV13 (Prevnar 13) Unknown Completed [facility] TDAP Unknown Completed [facility] SARS-COV-2 COVID-19 PFIZER VACCINE Unknown Completed [facility] Influenza Virus Vaccine Quad IM, Preserv and ABX Free 6 MO-64 YRS (FLUCELVAX) Unknown Completed [facility] Influenza Virus Vaccine Quad IM, Preserv and ABX Free 6 MO-64 YRS (FLUCELVAX) Unknown Completed [facility] Influenza Virus Vaccine Quad .5 mL IM 6+ MO (FLUZONE/FLULAVAL/F LUARIX) Unknown Completed [facility] Influenza Virus Vaccine Unknown Completed [facility] SARS-COV-2 COVID-19 PFIZER VACCINE Unknown Completed [facility] SARS-COV-2 COVID-19 PFIZER VACCINE Unknown Completed [facility] Influenza Virus Vaccine Quad IM, Preserv and ABX Free 6 MO-64 YRS (FLUCELVAX) Unknown Completed [facility] Pneumococcal 13 Conjugate, PCV13 (Prevnar 13) Unknown Completed [facility] TDAP Unknown Completed [facility] SARS-COV-2 COVID-19 PFIZER VACCINE Unknown Completed [facility] Influenza Virus Vaccine Quad IM, Preserv and ABX Free 6 MO-64 YRS (FLUCELVAX) Unknown Completed [facility] Influenza Virus Vaccine Quad IM, Preserv and ABX Free 6 MO-64 YRS (FLUCELVAX) Unknown Completed [facility] Influenza Virus Vaccine Quad .5 mL IM 6+ MO (FLUZONE/FLULAVAL/F LUARIX) Unknown Completed [facility] Influenza Virus Vaccine Unknown Completed [facility] SARS-COV-2 COVID-19 PFIZER VACCINE Unknown Completed [facility] SARS-COV-2 COVID-19 PFIZER VACCINE Unknown Completed [facility] Influenza Virus Vaccine Quad IM, Preserv and ABX Free 6 MO-64 YRS (FLUCELVAX) Unknown Completed [facility] Pneumococcal 13 Conjugate, PCV13 (Prevnar 13) Unknown Completed [facility] TDAP Unknown Completed [facility] SARS-COV-2 COVID-19 PFIZER VACCINE Unknown Completed [facility] Influenza Virus Vaccine Quad IM, Preserv and ABX Free 6 MO-64 YRS (FLUCELVAX) Unknown Completed [facility] Influenza Virus Vaccine Quad IM, Preserv and ABX Free 6 MO-64 YRS (FLUCELVAX) Unknown Completed [facility] Influenza Virus Vaccine Quad .5 mL IM 6+ MO (FLUZONE/FLULAVAL/F LUARIX) Unknown Completed [facility] Influenza Virus Vaccine Unknown Completed [facility] SARS-COV-2 COVID-19 PFIZER VACCINE Unknown Completed [facility] SARS-COV-2 COVID-19 PFIZER VACCINE Unknown Completed [facility] Influenza Virus Vaccine Quad IM, Preserv and ABX Free 6 MO-64 YRS (FLUCELVAX) Unknown Completed [facility] Pneumococcal 13 Conjugate, PCV13 (Prevnar 13) Unknown Completed [facility] TDAP Unknown Completed [facility] SARS-COV-2 COVID-19 PFIZER VACCINE Unknown Completed [facility] Influenza Virus Vaccine Quad IM, Preserv and ABX Free 6 MO-64 YRS (FLUCELVAX) Unknown Completed [facility] Influenza Virus Vaccine Quad IM, Preserv and ABX Free 6 MO-64 YRS (FLUCELVAX) Unknown Completed [facility] Influenza Virus Vaccine Quad .5 mL IM 6+ MO (FLUZONE/FLULAVAL/F LUARIX) Unknown Completed [facility] Influenza Virus Vaccine Unknown Completed [facility] SARS-COV-2 COVID-19 PFIZER VACCINE Unknown Completed [facility] SARS-COV-2 COVID-19 PFIZER VACCINE Unknown Completed [facility] Influenza Virus Vaccine Quad IM, Preserv and ABX Free 6 MO-64 YRS (FLUCELVAX) Unknown Completed [facility] Pneumococcal 13 Conjugate, PCV13 (Prevnar 13) Unknown Completed [facility] TDAP Unknown Completed [facility] SARS-COV-2 COVID-19 PFIZER VACCINE Unknown Completed [facility] Influenza Virus Vaccine Quad IM, Preserv and ABX Free 6 MO-64 YRS (FLUCELVAX) Unknown Completed [facility] Influenza Virus Vaccine Quad IM, Preserv and ABX Free 6 MO-64 YRS (FLUCELVAX) Unknown Completed [facility] Influenza Virus Vaccine Quad .5 mL IM 6+ MO (FLUZONE/FLULAVAL/F LUARIX) Unknown Completed [facility] Influenza Virus Vaccine Unknown Completed [facility] SARS-COV-2 COVID-19 PFIZER VACCINE Unknown Completed [facility] SARS-COV-2 COVID-19 PFIZER VACCINE Unknown Completed [facility] Influenza Virus Vaccine Quad IM, Preserv and ABX Free 6 MO-64 YRS (FLUCELVAX) Unknown Completed [facility] Pneumococcal 13 Conjugate, PCV13 (Prevnar 13) Unknown Completed [facility] TDAP Unknown Completed [facility] SARS-COV-2 COVID-19 PFIZER VACCINE Unknown Completed [facility] Influenza Virus Vaccine Quad IM, Preserv and ABX Free 6 MO-64 YRS (FLUCELVAX) Unknown Completed [facility] Influenza Virus Vaccine Quad IM, Preserv and ABX Free 6 MO-64 YRS (FLUCELVAX) Unknown Completed [facility] Influenza Virus Vaccine Quad .5 mL IM 6+ MO (FLUZONE/FLULAVAL/F LUARIX) Unknown Completed [facility] Influenza Virus Vaccine Unknown Completed [facility] SARS-COV-2 COVID-19 PFIZER VACCINE Unknown Completed [facility] SARS-COV-2 COVID-19 PFIZER VACCINE Unknown Completed [facility] Influenza Virus Vaccine Quad IM, Preserv and ABX Free 6 MO-64 YRS (FLUCELVAX) Unknown Completed [facility] Pneumococcal 13 Conjugate, PCV13 (Prevnar 13) Unknown Completed [facility] TDAP Unknown Completed [facility] SARS-COV-2 COVID-19 PFIZER VACCINE Unknown Completed [facility] Influenza Virus Vaccine Quad IM, Preserv and ABX Free 6 MO-64 YRS (FLUCELVAX) Unknown Completed [facility] Influenza Virus Vaccine Quad IM, Preserv and ABX Free 6 MO-64 YRS (FLUCELVAX) Unknown Completed [facility] Influenza Virus Vaccine Quad .5 mL IM 6+ MO (FLUZONE/FLULAVAL/F LUARIX) Unknown Completed [facility] Influenza Virus Vaccine Unknown Completed [facility] SARS-COV-2 COVID-19 PFIZER VACCINE Unknown Completed [facility] SARS-COV-2 COVID-19 PFIZER VACCINE Unknown Completed [facility] Influenza Virus Vaccine Quad IM, Preserv and ABX Free 6 MO-64 YRS (FLUCELVAX) Unknown Completed [facility] Pneumococcal 13 Conjugate, PCV13 (Prevnar 13) Unknown Completed [facility] TDAP Unknown Completed [facility] SARS-COV-2 COVID-19 PFIZER VACCINE Unknown Completed [facility] Influenza Virus Vaccine Quad IM, Preserv and ABX Free 6 MO-64 YRS (FLUCELVAX) Unknown Completed [facility] Influenza Virus Vaccine Quad IM, Preserv and ABX Free 6 MO-64 YRS (FLUCELVAX) Unknown Completed [facility] Influenza Virus Vaccine Quad .5 mL IM 6+ MO (FLUZONE/FLULAVAL/F LUARIX) Unknown Completed [facility] Influenza Virus Vaccine Unknown Completed [facility] SARS-COV-2 COVID-19 PFIZER VACCINE Unknown Completed [facility] SARS-COV-2 COVID-19 PFIZER VACCINE Unknown Completed [facility] Influenza Virus Vaccine Quad IM, Preserv and ABX Free 6 MO-64 YRS (FLUCELVAX) Unknown Completed [facility] Pneumococcal 13 Conjugate, PCV13 (Prevnar 13) Unknown Completed [facility] TDAP Unknown Completed [facility] SARS-COV-2 COVID-19 PFIZER VACCINE Unknown Completed [facility] Influenza Virus Vaccine Quad IM, Preserv and ABX Free 6 MO-64 YRS (FLUCELVAX) Unknown Completed [facility] Influenza Virus Vaccine Quad IM, Preserv and ABX Free 6 MO-64 YRS (FLUCELVAX) Unknown Completed [facility] Influenza Virus Vaccine Quad .5 mL IM 6+ MO (FLUZONE/FLULAVAL/F LUARIX) Unknown Completed [facility] Influenza Virus Vaccine Unknown Completed [facility] SARS-COV-2 COVID-19 PFIZER VACCINE Unknown Completed [facility] SARS-COV-2 COVID-19 PFIZER VACCINE Unknown Completed [facility] Influenza Virus Vaccine Quad IM, Preserv and ABX Free 6 MO-64 YRS (FLUCELVAX) Unknown Completed [facility] Pneumococcal 13 Conjugate, PCV13 (Prevnar 13) Unknown Completed [facility] TDAP Unknown Completed [facility] SARS-COV-2 COVID-19 PFIZER VACCINE Unknown Completed [facility] Influenza Virus Vaccine Quad IM, Preserv and ABX Free 6 MO-64 YRS (FLUCELVAX) Unknown Completed [facility] Influenza Virus Vaccine Quad IM, Preserv and ABX Free 6 MO-64 YRS (FLUCELVAX) Unknown Completed [facility] Influenza Virus Vaccine Quad .5 mL IM 6+ MO (FLUZONE/FLULAVAL/F LUARIX) Unknown Completed [facility] Influenza Virus Vaccine Unknown Completed [facility] SARS-COV-2 COVID-19 PFIZER VACCINE Unknown Completed [facility] SARS-COV-2 COVID-19 PFIZER VACCINE Unknown Completed [facility] Influenza Virus Vaccine Quad IM, Preserv and ABX Free 6 MO-64 YRS (FLUCELVAX) Unknown Completed [facility] Pneumococcal 13 Conjugate, PCV13 (Prevnar 13) Unknown Completed [facility] TDAP Unknown Completed [facility] SARS-COV-2 COVID-19 PFIZER VACCINE Unknown Completed [facility] Influenza Virus Vaccine Quad IM, Preserv and ABX Free 6 MO-64 YRS (FLUCELVAX) Unknown Completed [facility] Influenza Virus Vaccine Quad IM, Preserv and ABX Free 6 MO-64 YRS (FLUCELVAX) Unknown Completed [facility] Influenza Virus Vaccine Quad .5 mL IM 6+ MO (FLUZONE/FLULAVAL/F LUARIX) Unknown Completed [facility] Influenza Virus Vaccine Unknown Completed [facility] SARS-COV-2 COVID-19 PFIZER VACCINE Unknown Completed [facility] SARS-COV-2 COVID-19 PFIZER VACCINE Unknown Completed [facility] Influenza Virus Vaccine Quad IM, Preserv and ABX Free 6 MO-64 YRS (FLUCELVAX) Unknown Completed [facility] Pneumococcal 13 Conjugate, PCV13 (Prevnar 13) Unknown Completed [facility] TDAP Unknown Completed [facility] SARS-COV-2 COVID-19 PFIZER VACCINE Unknown Completed [facility] Influenza Virus Vaccine Quad IM, Preserv and ABX Free 6 MO-64 YRS (FLUCELVAX) Unknown Completed [facility] Influenza Virus Vaccine Quad IM, Preserv and ABX Free 6 MO-64 YRS (FLUCELVAX) Unknown Completed [facility] Vital Signs Vital Name Observation Time Observation Value Comments S ource Systolic blood pressure 2023-10-11 16:21:00 120 mm[Hg] [facility] Diastolic blood pressure 2023-10-11 16:21:00 82 mm[Hg] [facility] Heart rate 2023-10-11 16:21:00 122 /min [facility] Body height 2023-10-11 16:21:00 165.1 cm [facility] Body weight 2023-10-11 16:21:00 104.01 kg [facility] BMI 2023-10-11 16:21:00 38.16 kg/m2 [facility] Oxygen saturation in Arterial blood by Pulse oximetry 2023-10-11 16:21:00 90 /min [facility] Systolic blood pressure 2023-07-19 18:42:00 132 mm[Hg] [facility] Diastolic blood pressure 2023-07-19 18:42:00 85 mm[Hg] [facility] Heart rate 2023-07-19 18:42:00 76 /min [facility] Body weight 2023-07-19 18:42:00 112.038 kg [facility] BMI 2023-07-19 18:42:00 41.10 kg/m2 [facility] Oxygen saturation in Arterial blood by Pulse oximetry 2023-07-19 18:42:00 94 /min [facility] Systolic blood pressure 2023-06-25 14:26:00 143 mm[Hg] [facility] Diastolic blood pressure 2023-06-25 14:26:00 71 mm[Hg] [facility] Heart rate 2023-06-25 14:25:00 70 /min [facility] Body temperature 2023-06-25 14:25:00 36.72 Lynsey [facility] Body height 2023-06-25 14:25:00 165.1 cm [facility] Body weight 2023-06-25 14:25:00 112.855 kg [facility] BMI 2023-06-25 14:25:00 41.40 kg/m2 [facility] Systolic blood pressure 2023-03-04 16:35:00 107 mm[Hg] [facility] Diastolic blood pressure 2023-03-04 16:35:00 72 mm[Hg] [facility] Heart rate 2023-03-04 16:35:00 69 /min [facility] Body height 2023-03-04 16:35:00 165.1 cm [facility] Body weight 2023-03-04 16:35:00 112.175 kg [facility] BMI 2023-03-04 16:35:00 41.15 kg/m2 [facility] Oxygen saturation in Arterial blood by Pulse oximetry 2023-03-04 16:35:00 94 /min [facility] Systolic blood pressure 2022-12-13 14:45:00 128 mm[Hg] [facility] Diastolic blood pressure 2022-12-13 14:45:00 80 mm[Hg] [facility] Heart rate 2022-12-13 14:37:00 84 /min [facility] Body height 2022-12-13 14:37:00 165.1 cm [facility] Body weight 2022-12-13 14:37:00 111.948 kg [facility] BMI 2022-12-13 14:37:00 41.07 kg/m2 [facility] Oxygen saturation in Arterial blood by Pulse oximetry 2022-12-13 14:37:00 99 /min [facility] Systolic blood pressure 2022-11-29 21:23:00 127 mm[Hg] [facility] Diastolic blood pressure 2022-11-29 21:23:00 84 mm[Hg] [facility] Heart rate 2022-11-29 21:23:00 69 /min [facility] Body temperature 2022-11-29 21:23:00 36.72 Lynsey [facility] Respiratory rate 2022-11-29 21:23:00 16 /min [facility] Body height 2022-11-29 21:23:00 165.1 cm [facility] Body weight 2022-11-29 21:23:00 112.038 kg [facility] BMI 2022-11-29 21:23:00 41.10 kg/m2 [facility] Oxygen saturation in Arterial blood by Pulse oximetry 2022-11-29 21:23:00 100 /min [facility] Systolic blood pressure 2022-09-17 08:00:00 125 mm[Hg] [facility] Diastolic blood pressure 2022-09-17 08:00:00 78 mm[Hg] [facility] Heart rate 2022-09-17 08:00:00 53 /min [facility] Respiratory rate 2022-09-17 08:00:00 20 /min [facility] Oxygen saturation in Arterial blood by Pulse oximetry 2022-09-17 08:00:00 98 /min [facility] Body temperature 2022-09-17 03:24:00 36.72 Lynsey [facility] Body height 2022-09-17 03:24:00 165.1 cm [facility] Body weight 2022-09-17 03:24:00 114.76 kg [facility] BMI 2022-09-17 03:24:00 42.10 kg/m2 [facility] Systolic blood pressure 2022-09-14 14:30:00 126 mm[Hg] [facility] Diastolic blood pressure 2022-09-14 14:30:00 71 mm[Hg] [facility] Heart rate 2022-09-14 14:30:00 68 /min [facility] Body temperature 2022-09-14 14:30:00 36.89 Lynsey [facility] Respiratory rate 2022-09-14 14:30:00 16 /min [facility] Body height 2022-09-14 14:30:00 [facility] 2022-09-14 14:30:00 [facility] BMI 2022-09-14 14:30:00 42.15 kg/m2 [facility] Oxygen saturation in Arterial blood by Pulse oximetry 2022-09-14 14:30:00 99 /min [facility] Systolic blood pressure 2022-09-04 20:33:00 119 mm[Hg] [facility] Diastolic blood pressure 2022-09-04 20:33:00 79 mm[Hg] [facility] Heart rate 2022-09-04 20:33:00 78 /min [facility] Respiratory rate 2022-09-04 20:33:00 18 /min [facility] Body height 2022-09-04 20:33:00 165.1 cm [facility] Body weight 2022-09-04 20:33:00 113.49 [facility] BMI 2022-09-04 20:33:00 41.64 kg/m2 [facility] Oxygen saturation in Arterial blood by Pulse oximetry 2022-09-04 20:33:00 97 /min [facility] Systolic blood pressure 2022-08-30 21:22:00 118 mm[Hg] [facility] Diastolic blood pressure 2022-08-30 21:22:00 78 mm[Hg] [facility] Heart rate 2022-08-30 21:22:00 84 /min [facility] Respiratory rate 2022-08-30 21:22:00 18 /min [facility] Body height 2022-08-30 21:22:00 165.1 cm [facility] Body weight 2022-08-30 21:22:00 113.399 [facility] BMI 2022-08-30 21:22:00 41.60 kg/m2 [facility] Systolic blood pressure 2022-08-20 16:05:00 116 mm[Hg] [facility] Diastolic blood pressure 2022-08-20 16:05:00 65 mm[Hg] [facility] Respiratory rate 2022-08-20 16:05:00 16 /min [facility] Oxygen saturation in Arterial blood by Pulse oximetry 2022-08-20 16:05:00 98 /min [facility] Heart rate 2022-08-20 15:25:00 63 /min [facility] Body temperature 2022-08-20 14:43:00 35.94 Lynsey [facility] Body height 2022-08-09 15:00:00 165.1 cm [facility] Body weight 2022-08-09 15:00:00 108.863 kg [facility] BMI 2022-08-09 15:00:00 39.94 kg/m2 [facility] Systolic blood pressure 2022-08-20 15:00:00 114 mm[Hg] [facility] Diastolic blood pressure 2022-08-20 15:00:00 55 mm[Hg] [facility] Respiratory rate 2022-08-20 15:00:00 17 /min [facility] Oxygen saturation in Arterial blood by Pulse oximetry 2022-08-20 15:00:00 100 /min [facility] Heart rate 2022-08-20 14:43:00 70 /min [facility] Body temperature 2022-08-20 14:43:00 35.94 Lynsey [facility] Body height 2022-08-09 15:00:00 165.1 cm [facility] Body weight 2022-08-09 15:00:00 108.863 kg [facility] BMI 2022-08-09 15:00:00 39.94 kg/m2 [facility] Systolic blood pressure 2022-08-17 19:18:00 136 mm[Hg] [facility] Diastolic blood pressure 2022-08-17 19:18:00 78 mm[Hg] [facility] Heart rate 2022-08-17 19:18:00 86 /min [facility] Body height 2022-08-17 19:18:00 165.1 cm [facility] Body weight 2022-08-17 19:18:00 115.304 kg [facility] BMI 2022-08-17 19:18:00 42.30 kg/m2 [facility] Oxygen saturation in Arterial blood by Pulse oximetry 2022-08-17 19:18:00 98 /min [facility] Systolic blood pressure 2022-08-02 13:43:00 135 mm[Hg] [facility] Diastolic blood pressure 2022-08-02 13:43:00 85 mm[Hg] [facility] Heart rate 2022-08-02 13:43:00 72 /min [facility] Respiratory rate 2022-08-02 13:43:00 18 /min [facility] Body height 2022-08-02 13:43:00 152.4 cm [facility] Body weight 2022-08-02 13:43:00 111.585 kg [facility] BMI 2022-08-02 13:43:00 48.04 kg/m2 [facility] Systolic blood pressure 2022-07-29 03:00:00 129 mm[Hg] [facility] Diastolic blood pressure 2022-07-29 03:00:00 83 mm[Hg] [facility] Heart rate 2022-07-29 03:00:00 70 /min [facility] Respiratory rate 2022-07-29 03:00:00 16 /min [facility] Oxygen saturation in Arterial blood by Pulse oximetry 2022-07-29 03:00:00 98 /min [facility] Body temperature 2022-07-28 21:22:00 36.72 Lynsey [facility] Body height 2022-07-28 21:22:00 165.1 cm [facility] Body weight 2022-07-28 21:22:00 109.77 kg [facility] BMI 2022-07-28 21:22:00 40.27 kg/m2 [facility] Systolic blood pressure 2022-02-28 17:46:00 128 mm[Hg] [facility] Diastolic blood pressure 2022-02-28 17:46:00 28 mm[Hg] [facility] Heart rate 2022-02-28 17:46:00 93 /min [facility] Body height 2022-02-28 17:46:00 165.1 cm [facility] Body weight 2022-02-28 17:46:00 115.214 kg [facility] BMI 2022-02-28 17:46:00 42.27 kg/m2 [facility] Systolic blood pressure 2021-11-27 15:19:00 139 mm[Hg] [facility] Diastolic blood pressure 2021-11-27 15:19:00 76 mm[Hg] [facility] Heart rate 2021-11-27 15:19:00 83 /min [facility] Body height 2021-11-27 15:19:00 165.1 cm [facility] Body weight 2021-11-27 15:19:00 120.385 kg [facility] BMI 2021-11-27 15:19:00 44.16 kg/m2 [facility] Oxygen saturation in Arterial blood by Pulse oximetry 2021-11-27 15:19:00 99 /min [facility] Systolic blood pressure 2021-08-25 21:45:00 124 mm[Hg] [facility] Diastolic blood pressure 2021-08-25 21:45:00 79 mm[Hg] [facility] Heart rate 2021-08-25 21:45:00 75 /min [facility] Body temperature 2021-08-25 21:45:00 36.44 Lynsey [facility] Respiratory rate 2021-08-25 21:45:00 18 /min [facility] Body height 2021-08-25 21:45:00 165.1 cm [facility] Body weight 2021-08-25 21:45:00 123.378 kg [facility] BMI 2021-08-25 21:45:00 45.26 kg/m2 [facility] Procedures Procedure Date / Time Performed Performing Clinician Source AUTHORIZATION TO RELEASE PHI TO [facility] 2023-03-04 06:01:00 Doctor Unassigned, [place] [facility] POCT URINALYSIS W/O SPECIFIC GRAVITY 2022-11-29 00:00:00 Devan [facility] CT PELVIS WO CONTRAST 2022-09-17 07:57:00 Jing Sullivan [facility] CT ABDOMEN PELVIS W CONTRAST 2022-09-17 05:10:00 Tejal Sullivan [facility] CT CHEST PULMONARY ANGIOGRAM 2022-09-17 05:10:00 Tejal Sullivan [facility] POCT TEST 2022-09-17 04:46:00 Tejal Sullivan [facility] MAGNESIUM 2022-09-17 04:20:00 Tejal Sullivan [facility] COMP. METABOLIC PANEL ([id number]) 2022-09-17 04:20:00 Tejal Sullivan [facility] CBC WITH DIFF 2022-09-17 04:20:00 Tejal Sullivan [facility] URINALYSIS 2022-09-17 04:20:00 Tejal Sullivan [facility] NOTICE OF PRIVACY PRACTICES 2022-09-17 03:07:57 Doctor Unassigned, [place] [facility] CONSENT/REFUSAL FOR DIAGNOSIS AND TREATMENT 2022-09-17 03:05:33 Doctor Unassigned, [place] [facility] COMP. METABOLIC PANEL ([id number]) 2022-09-04 21:30:00 Faye Napoles [facility] CBC WITH DIFF 2022-09-04 21:30:00 [facility] 2022-08-20 12:22:00 Mckay Fu [facility] POCT TEST 2022-08-20 12:22:00 Mckay Fu [facility] LAPAROSCOPIC OOPHORECTOMY 2022-08-20 12:15:00 [facility] LAPAROSCOPIC SALPINGECTOMY 2022-08-20 12:15:00 [facility] DAY SURGERY - ADC 2022-08-20 05:01:00 Doctor Beatriz ssigned, [place] [facility] EXTERNAL PROVIDER RECORDS 2022-08-03 05:01:00 Doctor Unassigned, [place] [facility] DSU PRE-OP 2022-08-02 05:01:00 Doctor Unass igned, [place] [facility] DSU PRE-OP 2022-08-02 05:01:00 Doctor Unass igned, [place] [facility] US OVARY TORSION 2022-07-29 01:30:00 [place] [facility]EL[facility] W CONTRAST 2022-07-28 23:04:58 [place] [facility] COMP. METABOLIC PANEL ([id number]) 2022-07-28 22:20:00 [place] [facility] CBC WITH DIFF 2022-07-28 22:20:00 [place] [facility] URINALYSIS 2022-07-28 22:20:00 [place] [facility] CONSENT/REFUSAL FOR DIAGNOSIS AND TREATMENT 2022-07-28 21:14:36 Doctor Unassigned, [place] [facility] POCT HEMOGLOBIN A1C TEST 2022-02-28 17:58:00 Lanie Lopez [facility] Encounters Start Date/Time End Date/Time Encounter Type Admission Type Attending [facility] Care Facility Care Department Encounter ID Source 2021-03-22 12:08:59 Outpatient Cinda Briceno [facility] [id number] [facility] 2021-03-22 12:08:27 Outpatient Cinda Briceno [facility] [id number] [facility] 2021-03-22 11:07:35 Outpatient Cinda Briceno [facility] [id number] [facility] 2023-12-05 15:30:00 2023-12-05 15:30:00 Outpatient R [place] TRACY MARISOL [facility] [id number] [facility] 2023-11-08 13:00:00 2023-11-08 13:00:00 Outpatient R [facility] [id number] [facility] 2023-10-11 12:00:00 2023-10-11 12:15:00 Manager Salt Visit Lab, Ang - Db Emily Gil Lab, Ang - Db [facility] MEDICAL OFFICE BUILD[facility] 1.2.840.114 350.1.13.10 4.2.7.2.686 [id number] [facility] 2023-10-11 11:30:00 2023-10-11 11:56:19 Outpatient R EMILY GIL [facility] [id number] [facility] 2023-10-11 11:30:00 2023-10-11 11:56:19 Office Visit Emily Gil [facility] MEDICAL OFFICE BUILDING 1.2.840.114 350.1.13.10 4.2.7.2.686 [id number] [facility] 2023-10-08 13:30:00 2023-10-08 13:30:00 Outpatient R KRISSY DE DIOS [facility] [id number] [facility] 2023-10-01 00:00:00 2023-10-02 08:53:30 Faye Liu [facility] MEDICAL OFFICE BUILDING 1.2.840.114 350.1.13.10 4.2.7.2.686 [id number] [facility] 2023-10-01 14:00:00 2023-10-01 14:00:00 Outpatient DIONNE RUSSELL [facility] [id number] [facility] 2023-09-24 14:37:29 2023-09-24 14:37:29 Outpatient AMIRAH MACARIO [id number] Roscoe Finch 2023-09-06 10:00:00 2023-09-06 10:00:00 Outpatient R EMILY GIL [facility] [id number] [facility] 2023-09-03 14:30:00 2023-09-03 14:30:00 Outpatient R DIONNE JAVIER [facility] [id number] [facility] 2023-09-02 14:00:00 2023-09-02 14:00:00 Outpatient R HERBER ANDRADESerena [facility] [id number] [facility] 2023-08-19 09:15:00 2023-08-19 09:15:00 Outpatient R NAYE BETHICA [facility] [id number] [facility] 2023-08-16 11:29:12 2023-08-16 11:29:12 Outpatient SFA SFA 620 Roscoe Finch 2023-08-13 14:30:00 2023-08-13 14:30:00 Outpatient R FAYE NAPOLES [facility] [id number] [facility] 2023-07-01 00:00:00 2023-08-03 18:26:28 Patient Secure Msg Doctor Unassigned, [place] [facility] NAL BUILD[facility] 1.2.840.114 350.1.13.10 4.2.7.2.686 [id number] [facility] 2023-07-19 14:00:00 2023-07-19 14:14:39 Outpatient R YAYADIONNE [facility] [id number] [facility] 2023-07-19 14:00:00 2023-07-19 14:14:39 Office Visit Yaya Dionne [facility] 1.2.840.114 350.1.13.10 4.2.7.2.686 [id number] [facility] 2023-07-18 11:17:37 2023-07-18 11:17:37 Outpatient SFA SFA 522 Roscoe Finch 2023-07-18 11:15:00 2023-07-18 11:15:00 Outpatient R MAMTA LEMUS [facility] [id number] [facility] 2023-06-29 00:00:00 2023-06-29 00:00:00 Refill Giuliana Krissy [facility] BUILDING 1.2.840.114 350.1.13.10 4.2.7.2.686 [id number] [facility] 2023-06-25 16:30:00 2023-06-25 16:30:00 Outpatient R KRISSY DE DIOS [facility] [id number] [facility] 2023-06-25 09:00:00 2023-06-25 09:49:51 Outpatient R KRISSY DE DIOS [facility] [id number] [facility] 2023-06-25 09:00:00 2023-06-25 09:49:51 Office Visit Krissy De Dios [facility] BUILDING 1.2.840.114 350.1.13.10 4.2.7.2.686 [id number] [facility] 2023-06-22 00:00:00 2023-06-22 00:00:00 [facility] 1.2.840.114 350.1.13.10 4.2.7.2.686 [id number] [facility] 2023-06-11 09:20:00 2023-06-11 09:20:00 Outpatient R KEITH MONTESINOS [facility] [id number] [facility] 2023-06-10 14:06:34 2023-06-10 14:06:34 Outpatient SFA AMIRAH [id number] Roscoe Finch 2023-06-07 10:30:00 2023-06-07 10:30:00 Outpatient R FAYE NAPOLES [facility] [id number] [facility] 2023-05-26 00:00:00 2023-05-26 00:00:00 RefStella [facility]teFormerly [facility] MEDICAL OFFICE BUILDING 1..840.114 350.1.13.10 4.2.7.2.686 [id number] [facility] 2023-03-07 13:30:00 2023-03-07 13:30:00 Outpatient R FAYE NAPOLES [facility] [id number] [facility] 2023-03-04 10:30:00 2023-03-04 11:00:00 Office Visit Percy Andrade [facility] MEDICAL OFFICE BUILDING 1..840.114 350.1.13.10 4.2.7.2.686 [id number] [facility] 2023-03-04 10:30:00 2023-03-04 10:30:00 Outpatient R PERCY ANDRADE [facility] [id number] [facility] 2023-03-04 00:00:00 2023-03-04 00:00:00 Orders Only Doctor Unassigned, [place] [facility] 1..840.114 350.1.13.10 4.2.7.2.686 [id number] [facility] 2023-03-02 00:00:00 2023-03-02 00:00:00 Refill Stella NapolesFormerly [facility] MEDICAL OFFICE BUILDING 1..840.114 350.1.13.10 4.2.7.2.686 [id number] [facility] 2023-02-04 14:00:00 2023-02-04 14:00:00 Outpatient R LANIE LOPEZ YU [facility] [id number] [facility] 2023-01-26 00:00:00 2023-01-26 00:00:00 [facility] 1.2.840.114 350.1.13.10 4.2.7.2.686 [id number] [facility] 2023-01-07 10:40:00 2023-01-07 10:40:00 Outpatient KIZZY DAWN HOWARD [facility] [id number] [facility] 2022-12-13 09:30:00 2022-12-13 10:16:50 [facility] [id number] [facility] 2022-12-13 09:30:00 2022-12-13 10:16:50 [facility] 1..840.114 350.1.13.10 4.2.7.2.686 [id number] [facility] 2022-12-10 16:30:00 2022-12-10 16:30:00 Outpatient R LANIE LOPEZ YU [facility] [id number] [facility] 2022-11-30 13:00:00 2022-11-30 13:17:44 Outpatient R ALCALA-CARLYLE S, [place] AL[place] S, [place] [facility] [id number] [facility] 2022-11-30 13:00:00 2022-11-30 13:17:44 Manager Salt Visit Lab, Ang - Db Scott-Carlyle s, [place] [facility] MEDICAL OFFICE BUILDING 1.2.840.114 350.1.13.10 4.2.7.2.686 [id number] [facility] 2022-11-30 00:00:00 2022-11-30 00:00:00 [facility] 1..840.114 350.1.13.10 4.2.7.2.686 [id number] [facility] 2022-11-29 16:30:00 2022-11-29 16:41:13 Outpatient R ALCALA-CARLYLE S, [place], [place] [facility] [id number] [facility] 2022-11-29 16:30:00 2022-11-29 16:41:13 Office Visit [place]le [place], [place] [facility] 1.840.114 350.1.13.10 4.2.7.2.686 [id number] [facility] 2022-11-09 16:30:00 2022-11-09 16:30:00 Outpatient R ALCALA-CARLYLE S, [place], [place] [facility] [id number] [facility] 2022-10-22 00:00:00 2022-10-22 00:00:00 Refill Yesiak FayeFormerly [facility] MEDICAL OFFICE BUILDING 1.840.114 350.1.13.10 4.2.7.2.686 [id number] [facility] 2022-10-18 00:00:00 2022-10-18 00:00:00 [facility]ill [facility] BU[facility] 1.840.114 350.1.13.10 4.2.7.2.686 [id number] [facility] 2022-10-15 00:00:00 2022-10-15 00:00:00 Refill Yesika [facility]Former[facility] MEDICAL OFFICE BUILDING 1.840.114 350.1.13.10 4.2.7.2.686 [id number] [facility] 2022-10-12 15:30:00 2022-10-12 15:30:00 Outpatient R ROSS Alfaro, [place] ROSS S [place] [facility] [id number] [facility] 2022-10-11 14:22:33 2022-10-11 23:59:00 Outpatient R FAYE NAPOLES [facility] [id number] [facility] 2022-10-11 14:22:33 2022-10-11 23:59:00 Hospital Encounter Faye Napoles [facility] 1.0.114 350.1.13.10 4.2.7.2.686 [id number] [facility] 2022-09-24 13:00:00 2022-09-24 13:00:00 Outpatient R ROSS Alfaro, [place] ROSS SMARYBROOKLYN [facility] [id number] [facility] 2022-09-20 00:00:00 2022-09-20 00:00:00 Telephone Ross alfaro [facility] 1.0.114 350.1.13.10 4.2.7.2.686 [id number] [facility] 2022-09-19 00:00:00 2022-09-19 00:00:00 Telephone Lanie Lopez [facility] 1.0.114 350.1.13.10 4.2.7.2.686 [id number] [facility] 2022-09-19 00:00:00 2022-09-19 00:00:00 Patient Secure Msg Mary Tracysol [facility] 1.2840.114 350.1.13.10 4.2.7.2.686 [id number] [facility] 2022-09-18 11:40:00 2022-09-18 11:40:00 Outpatient R ALCALA-CARLYLE S, [place] S, [place] [facility] [id number] [facility] 2022-09-18 00:00:00 2022-09-18 00:00:00 Telephone Perezi [place]Mary[place] [facility] 1..840.114 350.1.13.10 4.2.7.2.686 [id number] [facility] 2022-09-16 22:33:00 2022-09-17 03:30:00 Emergency X TEJAL SULLIVAN [facility] [id number] [facility] 2022-09-16 22:33:00 2022-09-17 03:30:00 Emergency Tejal Sullivan [facility] 1..840.114 350.1.13.10 4.2.7.2.686 [id number] [facility] 2022-09-14 09:00:00 2022-09-14 09:53:56 Outpatient R [place]CARLY[place] S, [place] S, [place] [facility] [id number] [facility] 2022-09-14 09:00:00 2022-09-14 09:53:56 Office Visit [place] [facility] 1..840.114 350.1.13.10 4.2.7.2.686 [id number] [facility] 2022-09-14 08:00:00 2022-09-14 08:00:00 Outpatient R AL[place]A-CARLYLE S, [place] S, [place] [facility] [id number] [facility] 2022-09-07 00:00:00 2022-09-07 00:00:00 [facility] 1.114 350.1.13.10 4.2.7.2.686 [id number] [facility] 2022-09-06 00:00:00 2022-09-06 00:00:00 Refill Jose Bowen [facility] PROFESSIO NAL BUILDING 1.114 350.1.13.10 4.2.7.2.686 [id number] [facility] 2022-09-06 00:00:00 2022-09-06 00:00:00 Patient Secure Msg Doctor Unassigned, [place] [facility] 1.114 350.1.13.10 4.2.7.2.686 [id number] [facility] 2022-09-04 16:15:00 2022-09-04 16:33:18 Manager Salt Visit Lab, Avila Silver Stella NapolesFormerly [facility] OFF[facility] BU[facility] 1.114 350.1.13.10 4.2.7.2.686 [id number] [facility] 2022-09-04 15:00:00 2022-09-04 16:21:35 Outpatient R FAYE NAPOLES [facility] [id number] [facility] 2022-09-04 15:00:00 2022-09-04 16:21:35 [facility] 1.114 350.1.13.10 4.2.7.2.686 [id number] [facility] 2022-09-04 00:00:00 2022-09-04 00:00:00 Refill [facility] MEDICAL OFFICE BUILDING 1.114 350.1.13.10 4.2.7.2.686 [id number] [facility] 2022-08-30 16:30:00 2022-08-30 16:49:20 Outpatient R [place]A-CARLYLE S, [place] S, [place] [facility] [id number] [facility] 2022-08-30 16:30:00 2022-08-30 16:49:20 Office Visit [place] [facility] 1.2840.114 350.1.13.10 4.2.7.2.686 [id number] [facility] 2022-08-25 00:00:00 2022-08-25 00:00:00 Refill Lanie Lopez [facility] 1.2.840.114 350.1.13.10 4.2.7.2.686 [id number] [facility] 2022-08-22 00:00:00 2022-08-22 00:00:00 [facility] 1.2840.114 350.1.13.10 4.2.7.2.686 [id number] [facility] 2022-08-20 06:45:00 2022-08-20 11:22:00 Outpatient R [place]CAR[place] S, [place] S, [place] [facility] DELIVERY DEPARTMENT SUPERVISOR [id number] [facility] 2022-08-20 06:45:00 2022-08-20 11:22:00 Hospital Encounter [place] [facility] 1.2840.114 350.1.13.10 4.2.7.2.686 [id number] [facility] 2022-08-20 07:15:00 2022-08-20 10:03:00 Surgery Ross alfaro [facility] 1..114 350.1.13.10 4.2.7.2.686 [id number] [facility] 2022-08-20 00:00:00 2022-08-20 00:00:00 Orders Only Doctor Unassigned, [place] [facility] 1..114 350.1.13.10 4.2.7.2.686 [id number] [facility] 2022-08-20 00:00:00 2022-08-20 00:00:00 Telephone Perezi angelina [facility] PROFESSIO NAL BUILDING 1..114 350.1.13.10 4.2.7.2.686 [id number] [facility] 2022-08-17 14:00:00 2022-08-17 14:52:48 Outpatient R JEFFERY [facility] [id number] [facility] 2022-08-17 14:00:00 2022-08-17 14:52:48 [facility] 1.84114 350.1.13.10 4.2.7.2.686 [id number] [facility] 2022-08-17 00:00:00 2022-08-17 00:00:00 [facility] 1.114 350.1.13.10 4.2.7.2.686 [id number] [facility] 2022-08-15 15:00:00 2022-08-15 16:00:22 Manager Salt Visit Lab, Marco Luke [facility] MEDICAL OFFICE BUILDING 1.114 350.1.13.10 4.2.7.2.686 [id number] [facility] 2022-08-15 15:00:00 2022-08-15 15:00:00 Outpatient R GAYLE MARCO [facility] [id number] [facility] 2022-08-15 00:00:00 2022-08-15 00:00:00 Telephone [facility] MEDICAL OFFICE BUILD[facility] 1.84.114 350.1.13.10 4.2.7.2.686 [id number] [facility] 2022-08-07 00:00:00 2022-08-07 00:00:00 Telephone Jessica [facility] MEDICAL OFFICE BUILDING 1.84.114 350.1.13.10 4.2.7.2.686 [id number] 220 [id number] [facility] 2022-08-03 00:00:00 2022-08-03 00:00:00 Orders Only Doctor Unassigned, [place] [facility] 1.84.114 350.1.13.10 4.2.7.2.686 [id number] [facility] 2022-08-02 08:30:00 2022-08-02 09:17:20 Outpatient R [place] TRACY MARISOL [facility] [id number] [facility] 2022-08-02 08:30:00 2022-08-02 09:17:20 Office Visit [place] Tracy [facility] 1.84.114 350.1.13.10 4.2.7.2.686 [id number] [facility] 2022-08-02 00:00:00 2022-08-02 00:00:00 Prep For Surgery [place] Tracy [facility] 1.114 350.1.13.10 4.2.7.2.686 [id number] [facility] 2022-07-30 00:00:00 2022-07-30 00:00:00 Patient Secure Msg Doctor Unassigned, [place] [facility] 1.114 350.1.13.10 4.2.7.2.686 [id number] 220 [id number] [facility] 2022-07-28 16:25:00 2022-07-28 22:46:00 Emergency X [place] [facility] [id number] [facility] 2022-07-28 16:25:00 2022-07-28 22:46:00 Emergency [place] [facility] 1.84.114 350.1.13.10 4.2.7.2.686 [id number] [facility] 2022-07-27 14:30:00 2022-07-27 14:30:00 Outpatient EMILY RACHEL [facility] [id number] [facility] 2022-07-25 00:00:00 2022-07-25 00:00:00 [facility] MEDICAL OFFICE BUILDING 1.84.114 350.1.13.10 4.2.7.2.686 [id number] 220 [id number] [facility] 2022-07-25 00:00:00 2022-07-25 00:00:00 [facility] OFF[facility]ILD[facility] 1.84.114 350.1.13.10 4.2.7.2.686 [id number] 220 [id number] [facility] 2022-07-20 00:00:00 2022-07-20 00:00:00 Refill Jessica, [facility] MEDICAL OFFICE BUILDING 1.2840.114 350.1.13.10 4.2.7.2.686 [id number] 220 [id number] [facility] 2022-07-02 13:30:00 2022-07-02 13:30:00 Outpatient R LANIE LOPEZ, [facility] [id number] [facility] 2022-05-21 00:00:00 2022-05-21 00:00:00 Case Management Pearl Echeverria 1.2.840.114 350.1.13.10 4.2.7.2.686 [id number] [facility] 2022-05-21 00:00:00 2022-05-21 00:00:00 Telephone Pearl Echeverria 1.2840.114 350.1.13.10 4.2.7.2.686 [id number] [facility] 2022-05-04 00:00:00 2022-05-04 00:00:00 Harrison Lopez [facility] MEDICAL OFFICE BUILDING 1.2840.114 350.1.13.10 4.2.7.2.686 [id number] 220 [id number] [facility] 2022-03-06 00:00:00 2022-03-06 00:00:00 Patient Secure Msg Lopez [facility] MEDICAL OFFICE BUILDING 1.2840.114 350.1.13.10 4.2.7.2.686 [id number] 220 [id number] [facility] 2022-03-02 00:00:00 2022-03-02 00:00:00 Harrison Lopez [facility] PRIMARY CARE PAVILLION 1.2840.114 350.1.13.10 4.2.7.2.686 [id number] 220 [id number] [facility] 2022-02-28 12:00:00 2022-02-28 13:14:28 Outpatient R LANIE LOPEZ [facility] [id number] [facility] 2022-02-28 12:00:00 2022-02-28 13:14:28 Office Visit Lanie Lopez [facility] MEDICAL OFFICE BUILDING 1.840.114 350.1.13.10 4.2.7.2.686 [id number] 220 [id number] [facility] 2022-02-28 12:30:00 2022-02-28 12:45:00 Manager Salt Visit Lab, Avila Silver Lanie Lopez [facility] MEDICAL OFFICE BUILDING 1.840.114 350.1.13.10 4.2.7.2.686 [id number] [facility] 2022-01-02 15:30:00 2022-01-02 15:30:00 Outpatient R ARIES LEIGH [facility] [id number] [facility] 2021-12-19 00:00:00 2021-12-19 00:00:00 Patient Secure Lanie Aguiar [facility] PRIMARY CARE PAVILLION 1..840.114 350.1.13.10 4.2.7.2.686 [id number] 220 [id number] [facility] 2021-12-15 16:30:00 2021-12-15 16:30:00 Outpatient R YESIKA FAYE [facility] [id number] [facility] 2021-12-15 00:00:00 2021-12-15 00:00:00 Telephone [facility] MEDICAL OFFICE BUILDING 1.840.114 350.1.13.10 4.2.7.2.686 [id number] [facility] 2021-11-29 00:00:00 2021-11-29 00:00:00 Refill [facility] MEDICAL OFFICE BUILDING 1.2.840.114 350.1.13.10 4.2.7.2.686 [id number] 220 [id number] [facility] 2021-11-29 00:00:00 2021-11-29 00:00:00 Refill Lanie Lopez [facility] MEDICAL OFFICE BUILDING 1.2.840.114 350.1.13.10 4.2.7.2.686 [id number] 220 [id number] [facility] 2021-11-27 10:30:00 2021-11-27 11:02:19 Outpatient R LANIE LOPEZ [facility] [id number] [facility] 2021-11-27 10:30:00 2021-11-27 11:02:19 Office Visit JessicaLanie [facility] MEDICAL OFFICE BUILDING 1.2.840.114 350.1.13.10 4.2.7.2.686 [id number] 220 [id number] [facility] 2021-11-24 00:00:00 2021-11-24 00:00:00 Refill Chema Dominguez Amandeep [facility] MEDICAL OFFICE BUILDING 1.2.840.114 350.1.13.10 4.2.7.2.686 [id number] 220 [id number] [facility] 2021-10-21 00:00:00 2021-10-21 00:00:00 Refill Lanie Lopez [facility] MEDICAL OFFICE BUILDING 1.2.840.114 350.1.13.10 4.2.7.2.686 [id number] 220 [id number] [facility] 2021-10-20 10:00:00 2021-10-20 10:00:00 Outpatient R DEBRA IRVIN [facility] [id number] [facility] 2021-10-05 15:00:00 2021-10-05 15:00:00 Outpatient INDIRA GARCÍAN [facility] [id number] [facility] 2021-09-29 15:00:00 2021-09-29 15:00:00 Outpatient KIZZY DAWN HOWARD [facility] [id number] [facility] 2021-09-23 00:00:00 2021-09-23 00:00:00 Nancy Gurrola [facility] 1..840.114 350.1.13.10 4.2.7.2.686 [id number] 220 [id number] [facility] 2021-09-12 13:00:00 2021-09-12 13:00:00 Outpatient KIZZY DAWN HOWARD [facility] [id number] [facility] 2021-08-29 09:00:00 2021-08-29 09:00:00 Outpatient ARIES GUTIERREZ [facility] [id number] [facility] 2021-08-29 00:00:00 2021-08-29 00:00:00 Telephone Lanie Lopez [facility] PRIMARY CARE PAVILLION 1..840.114 350.1.13.10 4.2.7.2.686 [id number] 220 [id number] [facility] 2021-08-25 15:00:00 2021-08-25 15:30:00 Office Visit [facility] 1..840.114 350.1.13.10 4.2.7.2.686 [id number] [facility] 2021-08-25 15:00:00 2021-08-25 15:00:00 Outpatient Smooth AISSATOUINDIRAN [facility] [id number] [facility] 2021-08-25 15:00:00 2021-08-25 15:00:00 Outpatient Smooht DEBRA IRVIN [facility] [id number] [facility] 2021-08-23 09:30:00 2021-08-23 09:45:00 Manager Salt Visit Lab, Avila Silver Lanie Lopez [facility] MEDICAL OFFICE BUILDING 1..840.114 350.1.13.10 4.2.7.2.686 [id number] [facility] 2021-08-23 08:30:00 2021-08-23 09:16:15 Outpatient R LANIE LOPEZ [facility] [id number] [facility] 2021-08-23 08:30:00 2021-08-23 09:16:15 Office Visit Lanie Lopez [facility] MEDICAL OFFICE BUILDING 1..840.114 350.1.13.10 4.2.7.2.686 [id number] 220 [id number] [facility] 2021-08-03 00:00:00 2021-08-03 00:00:00 Refill Chema Dominguez [facility] MEDICAL OFFICE BUILDING 1..840.114 350.1.13.10 4.2.7.2.686 [id number] 220 [id number] [facility] 2021-08-02 16:00:00 2021-08-02 16:00:00 Outpatient R FIONA FELIX [facility] [id number] [facility] 2021-07-31 00:00:00 2021-07-31 00:00:00 Refill Chema Dominguez [facility] MEDICAL OFFICE BUILDING 1..840.114 350.1.13.10 4.2.7.2.686 [id number] 220 [id number] [facility] 2021-07-21 00:00:00 2021-07-21 00:00:00 Chema Venegas [facility] MEDICAL OFFICE BUILDING 1.2840.114 350.1.13.10 4.2.7.2.686 [id number] 220 [id number] [facility] 2021-07-20 00:00:00 2021-07-20 00:00:00 Nancy Gurrola [facility] AND [facility] 1.2840.114 350.1.13.10 4.2.7.2.686 [id number] 220 [id number] [facility] 2021-05-17 00:00:00 2021-05-17 00:00:00 Chema [facility]egas [facility] 1.2840.114 350.1.13.10 4.2.7.2.686 [id number] 220 [id number] [facility] 2021-03-11 00:00:00 2021-03-11 00:00:00 Che[facility] 1.2840.114 350.1.13.10 4.2.7.2.686 [id number] 220 [id number] [facility] 2021-03-08 00:00:00 2021-03-08 00:00:00 [facility] 1.2840.114 350.1.13.10 4.2.7.2.686 [id number] 220 [id number] [facility] 2021-02-23 13:30:00 2021-02-23 13:30:00 Outpatient JOSE CARTER [facility] [id number] [facility] 2021-02-09 00:00:00 2021-02-09 00:00:00 Orders Only Doctor Unassigned, [place] [facility] 1.2840.114 350.1.13.10 4.2.7.2.686 [id number] [facility] 2021-01-30 00:00:00 2021-01-30 00:00:00 Outpatient FAYE ARMAS [facility] [id number] [facility] 2021-01-30 00:00:00 2021-01-30 00:00:00 Outpatient FAYE ARMAS [facility] [id number] [facility] 2021-01-24 00:00:00 2021-01-24 00:00:00 Telephone Faye Napoles [facility] MEDICAL OFFICE BUILDING 1.2.840.114 350.1.13.10 4.2.7.2.686 [id number] [facility] 2021-01-17 13:00:00 2021-01-17 13:00:00 Outpatient KIZZY DAWN HOWARD [facility] [id number] [facility] 2021-01-16 12:41:38 2021-01-16 12:56:38 Manager Salt Visit Pob, Adc Lab Main Jose Bowen [facility] 1.2.840.114 350.1.13.10 4.2.7.2.686 [id number] [facility] 2021-01-16 10:57:50 2021-01-16 11:58:36 Office Visit Jose Bowen Nancy [facility] 1.2.840.114 350.1.13.10 4.2.7.2.686 [id number] [facility] 2021-01-16 10:30:00 2021-01-16 11:58:36 Outpatient ARIES GUTIERREZ [facility] [id number] [facility] 2021-01-16 10:30:00 2021-01-16 11:58:36 Outpatient ARIES GUTIERREZ [facility] [id number] [facility] 2021-01-16 00:00:00 2021-01-16 00:00:00 Orders Only Doctor Unassigned, [place] [facility] 1.284.114 350.1.13.10 4.2.7.2.686 [id number] [facility] 2021-01-13 00:00:00 2021-01-13 00:00:00 Patient Secure Msg Kassandra [facility] MEDICAL OFFICE BUILDING 1.284.114 350.1.13.10 4.2.7.2.686 [id number] 220 [id number] [facility] 2021-01-13 00:00:00 2021-01-13 00:00:00 Patient Secure Msg [facility] AND [facility] 1.284.114 350.1.13.10 4.2.7.2.686 [id number] 220 [id number] [facility] 2021-01-10 00:00:00 2021-01-10 00:00:00 Telephone [facility] MED[facility] BUILD[facility] 1.2840.114 350.1.13.10 4.2.7.2.686 [id number] [facility] 2021-01-06 15:30:00 2021-01-06 16:04:28 Outpatient R KASSANDRA NANCY [facility] [id number] [facility] 2021-01-06 15:25:33 2021-01-06 16:04:28 [facility] 1.2840.114 350.1.13.10 4.2.7.2.686 [id number] 220 [id number] [facility] 2021-01-06 15:30:00 2021-01-06 15:30:00 [facility] [id number] 2021-01-06 15:30:00 2021-01-06 15:30:00 Outpatient R NANCY CANNON [facility] [id number] [facility] 2021-01-05 14:30:00 2021-01-05 23:59:00 Outpatient R FAYE NAPOLES [facility] [id number] [facility] 2021-01-05 14:30:00 2021-01-05 23:59:00 [facility] MEDICAL OFFICE BUILDING 1.114 350.1.13.10 4.2.7.2.686 [id number] [facility] 2021-01-05 14:30:00 2021-01-05 14:30:00 Outpatient R FAYE NAPOLES [facility] [id number] [facility] 2021-01-05 14:30:00 2021-01-05 14:30:00 Outpatient R FAYE NAPOLES [facility] [id number] [facility] 2021-01-05 14:08:27 2021-01-05 14:23:27 Manager Salt Visit Lab, Avila Silver Yesika [facility] MEDICAL OFFICE BUILDING 1.84114 350.1.13.10 4.2.7.2.686 [id number] [facility] 2021-01-05 12:52:04 2021-01-05 14:06:37 [facility] MEDICAL OFFICE BUILDING 1.114 350.1.13.10 4.2.7.2.686 [id number] [facility] 2021-01-05 00:00:00 2021-01-05 00:00:00 Orders Only Doctor Unassigned, [place] [facility] 1.114 350.1.13.10 4.2.7.2.686 [id number] [facility] 2020-12-23 00:00:00 2020-12-23 00:00:00 Telephone [facility] 1.840.114 350.1.13.10 4.2.7.2.686 [id number] 220 [id number] [facility] 2020-12-12 09:00:00 2020-12-12 09:00:00 Outpatient FAYE ARMAS [facility] [id number] [facility] 2020-11-25 16:00:00 2020-11-25 16:00:00 Outpatient CHEMA MARIEE [facility] [id number] [facility] 2020-11-21 11:00:00 2020-11-21 11:00:00 Outpatient CHEMA MARIEE [facility] [id number] [facility] 2020-10-28 00:00:00 2020-10-28 00:00:00 Telephone [facility] .114 350.1.13.10 4.2.7.2.686 [id number] 220 [id number] [facility] 2020-10-28 00:00:00 2020-10-28 00:00:00 Telephone [facility]ISPEC [facility]TY C[facility] AND [facility] ..114 350.1.13.10 4.2.7.2.686 [id number] 220 [id number] [facility] 2020-10-24 00:00:00 2020-10-24 00:00:00 [facility] 1..840.114 350.1.13.10 4.2.7.2.686 [id number] 220 [id number] [facility] 2020-10-20 00:00:00 2020-10-20 00:00:00 Chema Venegas [facility] Professio [facility] Building 1.2.840.114 350.1.13.10 4.2.7.2.686 [id number] 220 [id number] [facility] 2020-10-20 00:00:00 2020-10-20 00:00:00 Chema Venegas [facility] Building 1.2.840.114 350.1.13.10 4.2.7.2.686 [id number] 220 [id number] [facility] 2020-07-24 00:00:00 2020-07-24 00:00:[address] [facility] 1.2.840.114 350.1.13.10 4.2.7.2.686 [id number] 220 [id number] [facility] 2020-06-25 13:10:00 2020-06-25 13:10:00 Outpatient [facility] [id number] [facility] 2020-06-04 13:00:00 2020-06-04 13:00:00 Outpatient [facility] [id number] [facility] 2020-05-25 15:00:00 2020-05-25 15:00:00 Outpatient ARIES GUTIERREZ [facility] [id number] [facility] 2020-05-13 10:59:16 2020-05-13 12:12:32 Office Visit Chema Dominguez [facility] 1.2.840.114 350.1.13.10 4.2.7.2.686 [id number] 220 [id number] [facility] 2020-05-13 11:00:00 2020-05-13 11:00:00 Outpatient CHEMA MARIEE [facility] [id number] [facility] 2020-05-10 14:30:00 2020-05-10 14:30:00 Outpatient R RHIANNON LEIGHCY [facility] [id number] [facility] 2020-04-24 00:00:00 2020-04-24 00:00:00 Refill Asha Dominguezin [facility] Professio nal Building 1.840.114 350.1.13.10 4.2.7.2.686 [id number] 220 [id number] [facility] 2020-02-15 00:00:00 2020-02-15 00:00:00 Refill Angelica Chema [facility] Building 1.284.114 350.1.13.10 4.2.7.2.686 [id number] 220 [id number] [facility] 2020-02-11 00:00:00 2020-02-11 00:00:00 Refill Fiona Felix [facility] IALTY CENTER AND [facility] 1..114 350.1.13.10 4.2.7.2.686 [id number] 220 [id number] [facility] 2020-01-29 09:00:00 2020-01-29 09:00:00 Outpatient R CHEMA DOMINGUEZ [facility] [id number] [facility] 2020-01-28 00:00:00 2020-01-28 00:00:00 Orders Only Fiona Felix [facility] 1.84.114 350.1.13.10 4.2.7.2.686 [id number] [facility] 2020-01-27 00:00:00 2020-01-27 00:00:[address] [facility] 1.2.114 350.1.13.10 4.2.7.2.686 [id number] 220 [id number] [facility] 2019-12-28 00:00:00 2019-12-28 00:00:[address] [facility] 1.2.840.114 350.1.13.10 4.2.7.2.686 [id number] 220 [id number] [facility] 2019-12-28 00:00:00 2019-12-28 00:00:[address] [facility] 1.2840.114 350.1.13.10 4.2.7.2.686 [id number] 220 [id number] 2019-07-28 08:45:00 2019-07-28 08:45:00 Outpatient R [facility] [id number] [facility] 2019-07-24 08:17:11 2019-07-24 11:47:51 Telemedici ne Visit Chema Dominguez [facility] 1.2840.114 350.1.13.10 4.2.7.2.686 [id number] 220 [id number] [facility] 2019-07-24 08:17:11 2019-07-24 11:47:51 Telemedici ne Visit Chema Dominguez [facility] 1.2840.114 350.1.13.10 4.2.7.2.686 [id number] 220 [id number] 2019-07-24 10:30:00 2019-07-24 10:30:00 [id number] 2019-07-10 00:00:00 2019-07-10 00:00:00 Refill [facility] 1.2840.114 350.1.13.10 4.2.7.2.686 [id number] 220 [id number] [facility] 2019-07-10 00:00:00 2019-07-10 00:00:00 Refill [facility]PEC [facility]TY [facility] AND [facility] 1.2.840.114 350.1.13.10 4.2.7.2.686 [id number] 220 [id number] 2019-05-20 08:37:33 2019-05-20 13:26:38 Telemedici ne Visit [facility]ro [facility] 1.2.840.114 350.1.13.10 4.2.7.2.686 [id number] 220 [id number] [facility] 2019-05-20 08:37:33 2019-05-20 13:26:38 Telemedici ne Visit Isidro [facility] Building 1.2.840.114 350.1.13.10 4.2.7.2.686 [id number] 220 [id number] 2019-05-20 09:30:00 2019-05-20 09:30:00 Outpatient R [facility]IDRO [facility] [id number] [facility] 2019-05-20 00:00:00 2019-05-20 00:00:00 Telephone Isidro [facility] 1.2.840.114 350.1.13.10 4.2.7.2.686 [id number] 220 [id number] [facility] 2019-05-20 00:00:00 2019-05-20 00:00:00 Telephone Isidro [facility] Building 1.2.840.114 350.1.13.10 4.2.7.2.686 [id number] 220 [id number] 2019-05-19 14:15:00 2019-05-19 14:15:00 Outpatient R ISIDRO [facility] [id number] [facility] 2019-05-17 00:00:00 2019-05-17 00:00:00 Refill Isidro [facility] 1.2.840.114 350.1.13.10 4.2.7.2.686 [id number] 220 [id number] [facility] 2019-05-17 00:00:00 2019-05-17 00:00:00 Refill Nicole Andrea [facility] Building 1.2.840.114 350.1.13.10 4.2.7.2.686 [id number] 220 [id number] [facility] 2019-05-17 00:00:00 2019-05-17 00:00:00 Refill Fiona Felix [facility] Building 1.2840.114 350.1.13.10 4.2.7.2.686 [id number] 220 [id number] 2019-05-17 00:00:00 2019-05-17 00:00:00 Refill Nicole Andrea [facility] Building 1.2840.114 350.1.13.10 4.2.7.2.686 [id number] 220 [id number] 2019-05-15 00:00:00 2019-05-15 00:00:00 [facility] Building 1.2.840.114 350.1.13.10 4.2.7.2.686 [id number] 220 [id number] [facility] 2019-05-15 00:00:00 2019-05-15 00:00:00 Refill Isidro [facility] Building 1.2840.114 350.1.13.10 4.2.7.2.686 [id number] 220 [id number] 2019-04-28 00:00:00 2019-04-28 00:00:00 Refill Nicole Andrea [facility] 1.2840.114 350.1.13.10 4.2.7.2.686 [id number] 220 [id number] [facility] 2019-04-28 00:00:00 2019-04-28 00:00:00 Refill Nicole Andrea [facility] IALTY C[facility] AND [facility] 1..840.114 350.1.13.10 4.2.7.2.686 [id number] 220 [id number] 2019-04-24 00:00:00 2019-04-24 00:00:00 Refill Fiona Felix [facility] 1..840.114 350.1.13.10 4.2.7.2.686 [id number] 220 [id number] [facility] 2019-04-24 00:00:00 2019-04-24 00:00:00 Refill Fiona Felix [facility] Building 1..840.114 350.1.13.10 4.2.7.2.686 [id number] 220 [id number] 2019-04-12 21:42:00 2019-04-12 21:42:00 Outpatient [facility] [id number] [facility] 2019-04-09 10:45:00 2019-04-09 10:45:00 Outpatient [facility] [id number] [facility] 2019-04-03 00:00:00 2019-04-03 00:00:00 Refill Isidro [facility] Building 1..840.114 350.1.13.10 4.2.7.2.686 [id number] 220 [id number] [facility] 2019-04-03 00:00:00 2019-04-03 00:00:00 [facility] Building 1..840.114 350.1.13.10 4.2.7.2.686 [id number] 220 [id number] 2018-11-05 15:00:00 2018-11-05 15:00:00 Outpatient ARIES GUTIERREZ [facility] [id number] [facility] 2018-10-30 00:00:00 2018-10-30 00:00:00 Telephone FelixFiona [facility] Building 1.2.840.114 350.1.13.10 4.2.7.2.686 [id number] 220 [id number] [facility] 2018-10-30 00:00:00 2018-10-30 00:00:00 Telephone FelixFiona [facility] Building 1.2.840.114 350.1.13.10 4.2.7.2.686 [id number] 220 [id number] 2018-09-19 00:00:00 2018-09-19 00:00:00 Refill Nicole [facility] 1.2.840.114 350.1.13.10 4.2.7.2.686 [id number] 220 [id number] [facility] 2018-09-19 00:00:00 2018-09-19 00:00:00 Refill Nicole [facility] 1.2.840.114 350.1.13.10 4.2.7.2.686 [id number] 220 [id number] 2018-08-06 11:09:00 2018-08-06 11:09:00 [facility] [id number] [facility] 2018-04-23 01:12:00 2018-04-23 01:12:00 [facility] [id number] [facility] 2018-04-22 16:00:00 2018-04-22 16:00:00 [facility] [id number] [facility] 2017-10-29 09:06:00 2017-10-29 09:06:00 [facility] [id number] [facility] 2017-10-25 23:08:00 2017-10-25 23:08:00 Outpatient [facility] [id number] [facility] 2017-10-25 15:00:00 2017-10-25 15:00:00 Outpatient [facility] [id number] [facility] Results Test Description Test Time Test Comments Results Result Co [facility] SPECIFIC [id number] 21:40:00* Test Item Value Reference Range Interpretation [...] = 3257) negative Negative - [facility]ati ve [facility] 04:53:45* Test Item Value Reference Range Interpretation Comme nts MAGNESIUM (test code = [id number]) 2.1 mg/dL 1.7-2.4 Lab Interpretation (test cod e = 35142-2) [id number][facility]17 04:53:25* Test Item Value Reference Range Interpretation Comme nts NA (test code = 9910866477) 142 mmol/L 135-145 K (test code = 4651980069) 4.0 mmol/L 3.5-5.0 CL (test code = 9289488587) 113 mmol/L 98-108 H CO2 TOTAL (test code = 7721092324) 26 mmol/L 23-31 AGAP (test code = 6209172774) 3 2-16 BUN (test code = 8883036658) 17 mg/dL 7-23 GLUCOSE (test code = 4751639907) 83 mg/dL 70-110 CREATININE (test code = 2456892854) 0.75 mg/dL 0.50-1.04 TOTAL BILI (test code = 0080545622) 0.3 mg/dL 0.1-1.1 CALCIUM (test code = 1159465855) 8.2 mg/dL 8.6-10.6 L T PROTEIN (test code = 8874330240) 6.6 g/dL 6.3-8.2 ALBUMIN (test code = 3149004630) 3.7 g/dL 3.5-5.0 ALK PHOS (test code = 7659051069) 68 U/L 34-122 ALTv (test code = 1742-6) 10 U/L 5-35 AST(SGOT) (test code = 5073829085) 12 U/L 13-40 L eGFR (test code = 3727710525) 84.3 mL/min/1.73m2 GRIFFIN (test code = GRIFFIN) [...] imaging tests). Lab Interpretation (test code = 57370-0) Abnormal [facility] [id number] 04:46:00* Test Item Value Reference Range Interpretation Comme nts POCT PREG (test code = 1605) Negative On board controls acceptable with C Line (test code = 3574) Yes POCT PREG LOT # (test code = 3575) [id number] POCT PREG TEST DATE ( test code = 3576) 02-07-2024 Lab Interpretation (test cod e = 73407-4) Normal [facility] WITH [id number] 04:41:49* Test Item Value Reference Range Interpretation Comme nts WBC (test code = 6690-2) 7.73 See_Comment [Automated messa ge] The system which generated this result transmitted reference range: 4.30 - 11.10 10*3/?L. The reference range was not used to interpret this result as normal/abnormal. RBC (test code = 789-8) 3.69 See_Comment L [Automated messa ge] The system which generated [...] 31.9 g/dL 31.6-35.1 RDW-SD (test code = 44463-4) 45.2 fL 39.0-49.9 RDW-CV (test code = 788-0) 14.3 % 12.0-15.5 PLT (test code = 777-3) 204 See_Comment [Automated messa ge] The system which generated this result transmitted reference range: 166 - 358 10*3/?L. The reference range was not used to interpret this result as normal/abnormal. MPV (test code = 71731-4) 10.2 fL 9.5-12.9 NRBC/100 WBC (test code = 2749206248) 0.0 See_Comment [Automated me ssage] The system which generated this result transmitted reference range: 0.0 - 10.0 /100 WBCs. The reference range was not used to interpret this result as normal/abnormal. NRBC x10^3 (test code = 3674459304) See_Comment [Automated messa ge] The system which generated this result transmitted reference range: 10*3/?L. The reference range was not used to interpret this result as normal/abnormal. GRAN MAT (NEUT) % (test code = 770-8) 70.4 % IMM GRAN % (test code = 9370269297) 0.50 % LYMPH % (test code = 736-9) 19.8 % MONO % (test code = 5905-5) 7.6 % EOS % (test code = 713-8) 1.4 % BASO % (test code = 706-2) 0.3 % GRAN MAT x10^3(ANC) (test code = 4304972957) 5.44 10*3/uL 1.88-7.09 IMM GRAN x10^3 (test code = 4521194305) 0.04 10*3/uL 0.00-0.06 LYMPH x10^3 (test code = 731-0) 1.53 10*3/uL 1.32-3.29 MONO x10^3 (test code = 742-7) 0.59 10*3/uL 0.33-0.92 EOS x10^3 (test code = 711-2) 0.11 10*3/uL 0.03-0.39 BASO x10^3 (test code = 704-7) 0.01-0.07 Lab Interpretation (test code = 38142-7) [facility] (94934)2022-09-05 04:19:50* Test Item Value Reference Range Interpretation Comme nts NA (test code = 6028057178) 138 mmol/L 135-145 K (test code = 7091651941) 4.5 mmol/L 3.5-5.0 CL (test code = 9631812759) 107 mmol/L 98-108 CO2 TOTAL (test code = 3852070490) 26 mmol/L 23-31 AGAP (test code = 9699119179) 5 2-16 BUN (test code = 9907078958) 13 mg/dL 7-23 GLUCOSE (test code = 5560528884) 97 mg/dL 70-110 CREATININE (test code = 7195970073) 0.71 mg/dL 0.50-1.04 TOTAL BILI (test code = 3884096212) 0.6 mg/dL 0.1-1.1 CALCIUM (test code = 8868775527) 9.1 mg/dL 8.6-10.6 T PROTEIN (test code = 9645769160) 7.1 g/dL 6.3-8.2 ALBUMIN (test code = 5389772957) 4.2 g/dL 3.5-5.0 ALK PHOS (test code = 0087359951) 84 U/L 34-122 ALTv (test code = 1742-6) 15 U/L 5-35 AST(SGOT) (test code = 5116519008) 14 U/L 13-40 eGFR (test code = 8635081338) 89.8 mL/min/1.73m2 GRIFFIN (test code = GRIFFIN) [...] or urine or abnormalities in imaging tests). [facility] WITH [id number] 03:49:48* Test Item Value Reference Range Interpretation Comme nts WBC (test code = 6690-2) 8.89 See_Comment [Automated State of Ambitiona TrendMD] The system which generated this result transmitted reference range: 4.30 - 11.10 10*3/?L. The reference range was not used to interpret this result as normal/abnormal. RBC (test code = 789-8) 4.01 See_Comment [Automated State of Ambitiona TrendMD] The system which generated this result transmitted [...] g/dL 31.6-35.1 L RDW-SD (test code = 63232-7) 46.2 fL 39.0-49.9 RDW-CV (test code = 788-0) 14.1 % 12.0-15.5 PLT (test code = 777-3) 299 See_Comment [Automated State of Ambitiona ge] The system which generated this result transmitted reference range: 166 - 358 10*3/?L. The reference range was not used to interpret this result as normal/abnormal. MPV (test code = 19277-9) 10.5 fL 9.5-12.9 NRBC/100 WBC (test code = 8860945323) 0.0 See_Comment [Automated [employer] ssage] The system which generated this result transmitted reference range: 0.0 - 10.0 /100 WBCs. The reference range was not used to interpret this result as normal/abnormal. NRBC x10^3 (test code = 2129418644) See_Comment [Automated messa ge] The system which generated this result transmitted reference range: 10*3/?L. The reference range was not used to interpret this result as normal/abnormal. GRAN MAT (NEUT) % (test code = 770-8) 83.0 % IMM GRAN % (test code = 7897527849) 0.60 % LYMPH % (test code = 736-9) 10.5 % MONO % (test code = 5905-5) 4.9 % EOS % (test code = 713-8) 0.8 % BASO % (test code = 706-2) 0.2 % GRAN MAT x10^3(ANC) (test code = 3962804753) 7.38 10*3/uL 1.88-7.09 H IMM GRAN x10^3 (test code = 8125689230) 0.05 10*3/uL 0.00-0.06 LYMPH x10^3 (test code = 731-0) 0.93 10*3/uL 1.32-3.29 L MONO x10^3 (test code = 742-7) 0.44 10*3/uL 0.33-0.92 EOS x10^3 (test code = 711-2) 0.07 10*3/uL 0.03-0.39 BASO x10^3 (test code = 704-7) 0.01-0.07 Lab Interpretation (test code = 25306-4) Abnormal [facility] [id number] 12:22:00* Test Item Value Reference Range Interpretation Comme nts POCT PREG (test code = 1605) Negative On board controls acceptable with C Line (test code = 3574) Yes POCT PREG LOT # (test code = 3575) [id number] POCT PREG TEST DATE ( test code = 3575) 74463 Lab Interpretation (test cod e = 59092-3) Normal [facility] [id number] 12:22:00* Test Item Value Reference Range Interpretation Comme nts POCT PREG (test code = 1605) Negative On board controls acceptable with C Line (test code = 3574) Yes POCT PREG LOT # (test code = 3575) [id number] POCT PREG TEST DATE ( test code = 0106) 17123 Lab Interpretation (test cod e = 25316-1) Normal [facility]. METABOLIC PANEL (83031)2022-07-28 22:53:38* Test Item Value Reference Range Interpretation Comme nts NA (test code = 2511741910) 139 mmol/L 135-145 K (test code = 2972211140) 3.6 mmol/L 3.5-5.0 CL (test code = 3565409656) 107 mmol/L 98-108 CO2 TOTAL (test code = 9316994909) 25 mmol/L 23-31 AGAP (test code = 7256948430) 7 2-16 BUN (test code = 1511346291) 14 mg/dL 7-23 GLUCOSE (test code = 0916906381) 97 mg/dL 70-110 CREATININE (test code = 3841491932) 0.73 mg/dL 0.50-1.04 TOTAL BILI (test code = 9100654239) 0.6 mg/dL 0.1-1.1 CALCIUM (test code = 0814787202) 9.0 mg/dL 8.6-10.6 T PROTEIN (test code = 0068612924) 6.8 g/dL 6.3-8.2 ALBUMIN (test code = 3959965188) 4.1 g/dL 3.5-5.0 ALK PHOS (test code = 0095039716) 75 U/L 34-122 ALTv (test code = 1742-6) 13 U/L 5-35 AST(SGOT) (test code = 2168860802) 12 U/L 13-40 L eGFR (test code = 6171159906) 87.0 mL/min/1.73m2 GRIFFIN (test code = GRIFFIN) [...] imaging tests). Lab Interpretation (test code = 86547-5) Abnormal [facility] WITH [id number] 22:41:58* Test Item Value Reference Range Interpretation Comme nts WBC (test code = 6690-2) 7.61 See_Comment [Automated [employer]] The system which generated this result transmitted reference range: 4.30 - 11.10 10*3/?L. The reference range was not used to interpret this result as normal/abnormal. RBC (test code = 789-8) 4.07 See_Comment [Automated [employer]] The system which generated this result transmitted [...] 33.4 g/dL 31.6-35.1 RDW-SD (test code = 81771-0) 43.9 fL 39.0-49.9 RDW-CV (test code = 788-0) 13.8 % 12.0-15.5 PLT (test code = 777-3) 225 See_Comment [Automated messa ge] The system which generated this result transmitted reference range: 166 - 358 10*3/?L. The reference range was not used to interpret this result as normal/abnormal. MPV (test code = 79619-6) 9.7 fL 9.5-12.9 NRBC/100 WBC (test code = 6563380360) 0.0 See_Comment [Automated [employer] ssage] The system which generated this result transmitted reference range: 0.0 - 10.0 /100 WBCs. The reference range was not used to interpret this result as normal/abnormal. NRBC x10^3 (test code = 7783416718) See_Comment [Automated State of Ambitiona ge] The system which generated this result transmitted reference range: 10*3/?L. The reference range was not used to interpret this result as normal/abnormal. GRAN MAT (NEUT) % (test code = 770-8) 81.5 % IMM GRAN % (test code = 7351746103) 0.40 % LYMPH % (test code = 736-9) 11.0 % MONO % (test code = 5905-5) 6.3 % EOS % (test code = 713-8) 0.5 % BASO % (test code = 706-2) 0.3 % GRAN MAT x10^3(ANC) (test code = 9999806027) 6.20 10*3/uL 1.88-7.09 IMM GRAN x10^3 (test code = 8758135898) 0.03 10*3/uL 0.00-0.06 LYMPH x10^3 (test code = 731-0) 0.84 10*3/uL 1.32-3.29 L MONO x10^3 (test code = 742-7) 0.48 10*3/uL 0.33-0.92 EOS x10^3 (test code = 711-2) 0.04 10*3/uL 0.03-0.39 BASO x10^3 (test code = 704-7) 0.01-0.07 Lab Interpretation (test code = 99484-1) Abnormal [facility] HEMOGLOBIN A1C [id number] 17:58:00* Test Item Value Reference Range Interpretation Comme nts POCT HBA1C (test code = 4548-4) 4.8 % 4-6 [facility] HEMOGLOBIN A1C [id number] 17:58:00* Test Item Value Reference Range Interpretation Comme nts POCT HBA1C (test code = 4548-4) 4.8 % 4-6 [facility] Notes Date/Time Note Provider Source 2023-10-11 12:00:00 Images from the original note were not included. Venipuncture collection performed by clean technique on the left anticubitus. Total of 1 attempts were made. Slight pressure and a bandage/dressing were applied to the site(s). The patient experienced no complications. The following specimens were processed according to instructions and sent to [facility] laboratories per lab order on 10/11/2023 : LT BLUE SST 1 RED LAV PPT DK GREEN (LiHep) DK GREEN (SodH) URBAN DK BLUE (K2) DK BLUE (S) ACD Blood Culture NIPT/NTD T [facility] 2023-10-03 13:17:53 This is the last refill I am approving until face to face, please facilitate office visit. T [facility] 2023-10-02 09:24:02 Addended by: LEE ANN PENA on: 10/02/2023 09:24 AM Modules accepted: Orders Lee Ann Pena MA [facility] 2023-10-02 08:53:37 Facilitate appointment, needs labs- give on 15 pills to last until visit. T [facility] 2023-10-01 14:46:39 Recent Visits Date Type Provider Dept 12/13/22 Office Visit Faye Napoles FNP [facility] 09/04/22 Office Visit Faye Napoles FNP [facility] Showing recent visits within past 540 days with a meds authorizing provider and meeting all other requirements Future Appointments No visits were found meeting these conditions. Showing future appointments within next 150 days with a meds authorizing provider and meeting all other requirements Last refill was Disp Refills Start End NORMA levothyroxine 125 mcg tablet 15 tablet 0 06/24/2023 -- No Sig: Take 1 tablet by mouth every morning. Must get labs done. Sent to pharmacy as: levothyroxine 125 mcg tablet (SYNTHROID) T Greta Lopez MA [facility] 2023-06-29 12:57:19 Tx sent for Trich and BV Tx [facility] 2023-06-24 08:24:00 Please have patient get ordered labs from [facility] done. [facility] 2023-06-24 07:48:19 Images from the original note were not included. Notes: 05/27/23 Last Refilled: [facility] - [place], [place] - [address] [place] [address] TSH Date Value 11/30/2022 0.34 mIU/L (L) 09/04/2022 0.19 mIU/L (L) 08/15/2022 0.06 mIU/L (L) 02/28/2022 <0.02 mIU/L (L) 08/23/2021 0.95 mIU/L 04/22/2012 <0.015 uIU/mL (A) 03/11/2012 <0.015 uIU/mL (A) 06/20/2011 <0.015 uIU/mL (A) 06/05/2011 <0.01 uIU/mL (A) 05/09/2010 <0.015 uIU/mL (A) TSH, 3RD GENERATION-Q (mIU/L) Date Value 01/28/2020 0.50 09/05/2015 0.01 (L) Recent Visits Date Type Provider Dept 12/13/22 Office Visit Faye Napoles FNP [facility] 09/04/22 Office Visit Faye Napoles FNP [facility] Showing recent visits within past 540 days with a meds authorizing provider and meeting all other requirements Future Appointments No visits were found meeting these conditions. Showing future appointments within next 150 days with a meds authorizing provider and meeting all other requirements levothyroxine 125 mcg tablet Sig: Take 1 tablet by mouth every morning. Disp: 90 tablet Refills: 0 Start: 06/22/2023 Class: eRX Non-formulary For: Postablative hypothyroidism Last ordered: 4 weeks ago (05/27/2023) by JUANY Ruby Endocrinology: Hypothyroid Agents Mafvie6206/22/2023 01:38 PM Protocol Details Manual Review: ENT providers forward refill request to PCP. TSH in normal range and within 360 days Valid encounter within last 12 months To be filled at: [facility]/pharmacy #[id number] AT [facility] Alexus Corley MA [facility] 2023-05-27 09:15:50 Last Refilled: LEVOTHYROXINE 125 mcg tablet 90 tablet 1 12/02/2022 -- No Sig: TAKE 1 TABLET BY MOUTH EVERY DAY IN THE MORNING Sent to pharmacy as: levothyroxine 125 mcg tablet (SYNTHROID) Class: eRX Route: Oral Order: [id number] Date/Time Signed: 12/02/2022 08:40 E-Prescribing Status: Receipt confirmed by pharmacy (12/02/2022 8:40 AM CDT) Recent Visits Date Type Provider Dept 12/13/22 Office Visit Faye Napoles FNP [facility] 09/04/22 Office Visit Faye Napoles FNP [facility] Showing recent visits within past 540 days with a meds authorizing provider and meeting all other requirements Future Appointments No visits were found meeting these conditions. Showing future appointments within next 150 days with a meds authorizing provider and meeting all other requirements Laxmi Parra [facility] 2023-03-04 14:21:21 Images from the original note were not included. Last Refilled: 03/04/22 Notes: [facility] - [address] Recent Visits Date Type Provider Dept 12/13/22 Office Visit Faye Napoles FNP [facility] 09/04/22 Office Visit Faye Napoles FNP [facility] Showing recent visits within past 540 days with a meds authorizing provider and meeting all other requirements Future Appointments Date Type Provider Dept 03/07/23 Appointment Faye Napoles FNP [facility] Showing future appointments within next 150 days with a meds authorizing provider and meeting all other requirements topiramate 25 mg tablet The original prescription was reordered on 03/04/2023 by Percy Andrade MD. Renewing this prescription may not be appropriate. Possible duplicate: Hover to review recent actions on this medication Sig: Take 2 tablets by mouth in the morning. Disp: 90 tablet Refills: 1 Start: 03/02/2023 Class: eRX Non-formulary For: Morbid obesity with body mass index (BMI) of 40.0 or higher, Nonintractable chronic migraine Last ordered: 1 month ago (01/28/2023) by JUANY Ruby Neurology: Anticonvulsants-Topiramate Jwwtdi2203/02/2023 06:10 PM Protocol Details status completed Manual Review: Forward refill prescription to provider if patient has had any seizure activity or since last office visit Topiramate in normal range and within 360 days Valid encounter within last 12 months To be filled at: [facility]/pharmacy #[address] [place] [address] Corley MA [facility] 2022-10-22 13:49:05 Formatting of this n ote is different from the original. Images from the original note were not included. Requested Renewals topiramate 25 mg tablet Sig: Take [...] last 12 months To be filled at: [facility]/pharmacy #[address] [place] [address] Recent Visits Date Type Provider Dept 09/04/22 Office Visit Faye Napoles FNP [facility] Showing recent visits within past 540 days with a meds authorizing provider and meeting all other requirements Future Appointments Date Type Provider Dept 03/07/23 Appointment Faye Napoles FNP [facility] Showing future appointments within next 150 days with a meds authorizing provider and meeting all other requirements Kaye Moore LVN [facility] 2022-10-18 16:00:38 Formatting of this n ote might be different from the original. ESTEFANIA 08/17/22 NOV 01/21/23 Per ESTEFANIA note: -- Continue Phentermine 37.5 mg daily, tolerates well, weight remains unchanged from ESTEFANIA at 254 lbs. Bibiana Rocha LVN [facility] 2022-10-18 15:44:34 Formatting of this n ote might be different from the original. Pt is requesting a refill on RX. phentermine 37.5 mg capsule Yvette Senior [facility] 2022-10-15 11:18:46 Formatting of this n ote is different from the original. Images from the original note were not included. Last Refilled: levothyroxine 125 mcg tablet Sig: Take [...] last 12 months To be filled at: [facility]/pharmacy #[id number] Recent Visits Date Type Provider Dept 09/04/22 Office Visit Faye Napoles FNP [facility] Showing recent visits within past 540 days with a meds authorizing provider and meeting all other requirements Future Appointments Date Type Provider Dept 03/07/23 Appointment Faye Napoles FNP [facility] Showing future appointments within next 150 days with a meds authorizing provider and meeting all other requirements Lee Ann Pena MA [facility] 2022-09-21 10:03:30 Formatting of this n ote might be different from the original. Patient scheduled with Dr. Hartman 09/24/22. Ramses Crowley RN 09/21/2022 10:03 AM Ramses Crowley RN [facility] 2022-09-20 16:59:30 Formatting of this n ote might be different from the original. Patient notified of results from CT scan. [...] scheduled. Peggy Mcneil RN 09/20/2022 4:59 PM Peggy Mcneil RN [facility] 2022-09-20 16:57:00 Formatting of this n ote might be different from the original. Patient notified of results from CT scan. [...] scheduled. Peggy Mcneil RN 09/20/2022 4:59 PM Peggy Mcneil RN [facility] 2022-09-20 13:04:15 Formatting of this n ote might be different from the original. Returned patients call, no answer, unable to leave voicemail. Peggy Mcneil RN 09/20/2022 1:36 PM [facility] 2022-09-20 10:58:59 Formatting of this n ote might be different from the original. PT called and wanted to know what the next step going forward is going to be now that's she has been verified a hernia? Please advise Turner Amador [facility] 2022-09-20 07:58:03 Formatting of this n ote might be different from the original. Sending patient Spectropatht message. Bibiana Rocha LVN [facility] 2022-09-19 14:38:54 Formatting of this n ote might be different from the original. After speaking to Dr. Dominguez, she is to double her dose for 3 days and then go back to her normal dose. [facility] 2022-09-19 10:17:55 Formatting of this n ote might be different from the original. Spoke to patient. 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 She has been to [facility] ER and was given emergency dose of cortisol and fluids for dehydration. Still reports dizziness, dehydration, feeling like she might faint. Not sure what she needs to do. T [facility] 2022-09-19 09:54:11 Formatting of this n ote might be different from the original. Patient would like a nurse to call her marshall regarding her Addisons disease. Urszula Augustin [facility] 2022-09-18 16:47:44 Formatting of this n ote might be different from the original. Unable to leave voice mail due to inbox being full. T [facility] 2022-09-18 10:25:44 Formatting of this n ote might be different from the original. Views CT scan results. Do not describes any incisional hernias. Describes small bilateral inguinal hernias with fat. Small left ovarian cysts but the rest is ok. Likely patient is taking longer healing and pain is related to that. Brooklyn Hartman MD T [facility] 2022-09-18 10:19:26 Formatting of this n ote might be different from the original. Spoke with patient, name and verified. Patient [...] she is in a crisis with her glynn's disease. T [facility] 2022-09-18 10:12:44 Formatting of this n ote might be different from the original. Pt is wanting to discuss results with nurse and is wanting to know the next step. T Bri Broussard [facility] 2022-09-17 03:14:00 Formatting of this n ote might be different from the original. 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 Advised to seek medical attention for new/prolonged/worsening of symptoms, No adverse reaction to meds given in ER noted upon discharge Pt ambulated to the lobby with steady gait [facility] 2022-09-17 01:03:03 Formatting of this n ote might be different from the original. Gave report to KESHAV Hernandez. Venessa Guzman RN [facility] 2022-09-17 01:03:03 Formatting of this n ote might be different from the original. Assumed care of patient, received report from KESHAV Echols. Visitor at bedside. Pt awaiting Ct-scan results. Will continue to monitor. [facility] 2022-09-16 22:22:01 Formatting of this n ote might be different from the original. 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 RAT Cookie Hernandez RN [facility]
[2023-11-11] MEDS ORDERED: ONDANSETRON 4 MG/2 ML VIAL ONE ×2 (19:31→20:26)
[2023-11-11] MEDS ORDERED: NA CHLORIDE 0.9% 1,000 ML ONE (19:31)
[2023-11-11 19:48] LABS: Absolute Monocytes 0.4 K/uL (0.1-1.3); Absolute Neutrophil 5.3 K/uL (1.8-8.0); Basophils % 0.4 % (0-1.3); Eosinophils % 0.6 % (0-4.4); Hemoglobin 12.4 g/dL (12.0-15.0); Lymphocytes % 14.7 % (15.3-44.8); MCH 30.9 pg (27.0-35.0); MCHC 34.5 g/dL (32.0-36.0); MCV 89.5 fL (80-100); MPV 7.1 fL (7.6-11.3); Neutrophils % 78.3 % (41.7-73.7); Platelets 263 thou/uL (152-406); RBC Red Blood Cell Count 4.02 M/uL (3.86-4.86); Red Cell Distribution Width 14.7 % (12.1-15.2)
[2023-11-11 20:00] LABS: ALT/SGPT < 14 U/L (13-56); AST/SGOT < 10 U/L (15-37); Albumin < 0.9 g/dL (3.4-5.0); Albumin/Globulin Ratio ND (1.1-1.8); Alkaline Phosphatase 72 U/L (45-117); Anion Gap 9.6 mEq/L (5.0-15.0); BUN Blood Urea Nitrogen 13 mg/dL (7-18); Bicarbonate 22 mEq/L (21-32); Bilirubin Total 0.6 mg/dL (0.2-1.0); Globulin 6.2 g/dL (2.3-3.5); Glomerular Filtration Rate 106 ml/min (=/>90); Glucose Level 75 mg/dL (74-106); Lipase 8 U/L (13-75); Potassium 3.6 mEq/L (3.5-5.1); Protein, Total 7.1 g/dL (6.4-8.2); Sodium Level 140 mEq/L (136-145)
[2023-11-11 20:06] LABS: Specific Gravity 1.025 (1.005-1.030); Sqamous Epithelial <5 /HPF (None Seen); Urine Bacteria None Seen /HPF (<20); Urine Bilirubin NEGATIVE (Negative); Urine Blood 2+ (Negative); Urine Clarity Clear (Clear); Urine Color Light-Yellow (Yellow); Urine Crystals Unidentified Few /HPF (None Seen); Urine Culture Reflex Order NOT NEEDED; Urine Glucose NEGATIVE (Negative); Urine Ketones NEGATIVE (Negative); Urine Microscopic Reflex YN ORDER UMIC; Urine Mucus Slight /HPF (None Seen); Urine Nitrite NEGATIVE (Negative); Urine Protein TRACE (Negative); Urine RBC <5 /HPF (None Seen); Urine Urobilinogen 2+ (Normal); Urine WBC <5 /HPF (<5); Urine pH 7.5 (5.0-7.0)
[2023-11-11 20:07] LABS: Specific Gravity 1.025 (1.005-1.030)
[2023-11-11] MEDS ORDERED: MORPHINE 4 MG/ML SYR ONE (20:26)
[2023-11-11] MEDS ORDERED: CALCIUM GLUCONATE IV ONE (20:28)
--- NOTE | 2023-11-11 21:20 | RAD REPORT ---
EXAMINATION: CT ABDOMEN AND PELVIS WITH CONTRAST CLINICAL INDICATION: Female, 42 years old. [facility] MAIN ABD PAIN IV ONLY Bed Name: 14 TECHNIQUE: CT abdomen and pelvis was performed, after the administration of IV contrast, as per [facility] protocol. Axial, sagittal and coronal reconstructions were obtained. One or more of the following dose reduction techniques were used: Automated exposure control, adjustment of the mA and k V according to patient size, and iterative reconstruction. Unless otherwise specified, incidental findings do not require dedicated imaging follow-up. COMPARISON: No prior exam. FINDINGS: LOWER CHEST: The visualized lung bases are clear. LIVER: Normal in size and contour. No focal lesion. Status post cholecystectomy. SPLEEN: Normal size. No focal lesion. PANCREAS: No mass, ductal dilation, or mark-pancreatic fluid. ADRENALS: Normal; no mass. KIDNEYS: Normal size and contour. No hydronephrosis. Urinary bladder is suboptimally distended limiti ng evaluation. GASTROINTESTINAL TRACT: No evidence of free air, significant intra-abdominal free fluid, bowel obstru ction or abscess. APPENDIX: Normal appendix. LYMPH NODES: No lymphadenopathy. MUSCULOSKELETAL: No acute or suspicious osseous abnormality. Small rounded sclerotic lesion in the ri ght femoral intertrochanteric region, stable, may represent a small bone island. ADDITIONAL FINDINGS: None. IMPRESSION: No acute or concerning abnormalities seen in the abdomen or pelvis.
--- NOTE | 2023-11-11 21:21 | RAD REPORT ---
EXAM: CT brain without contrast HISTORY: [facility] MAIN SEIZURE Bed Name: 14 COMPARISON: 07/10/2023 and 09/24/[address] TECHNIQUE: Multiple contiguous axial images were obtained and a CT of the brain without contrast. Sag ittal and coronal reformats were performed. FINDINGS: No evidence of hydrocephalus, intracranial hemorrhage, or extra-axial fluid collection. The brain is normal in morphology. The calvarium is intact. The visualized paranasal sinuses and mastoid air cells are essentially clear . IMPRESSION: No evidence of acute intracranial abnormality.
[2023-11-11] MEDS ORDERED: KETOROLAC 30 MG/ML INJ ONE (21:53)
--- NOTE | 2023-11-11 22:49 | EDPHYS ---
Physician Documentation [facility] Name: Lavinia Jarrett Age: 42 yrs Sex: Female : 1980 Arrival Date: 11/11/2023 Time: 19:01 Bed 14 Private MD: ED Physician Jennifer Jackson HPI: 11/10 22:48 This 42 yrs old Female presents to ER via Ambulatory with complaints of kb Probable Seizure, Abdominal Pain. 22:48 Pt is a 42 year old female who presents for abd pain, back pain and nausea that started kb 4 days ago. Also reports she had a seizure on Saturday and again today. States she takes Topamax for seizures. Denies fever, diarrhea. . 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 - Infectious Disease History:: Denies. - Social history:: Smoking status: Reported history of juuling and/or vaping. ROS: 22:46 Constitutional: As per HPI kb Exam: 22:46 Constitutional: This is a well developed, well nourished patient who is awake, alert, kb and in no acute distress. Head/Face: Normocephalic, atraumatic. ENT: Moist Mucous membranes Cardiovascular: Regular rate Respiratory: Respirations even and unlabored. No increased work of breathing. Talking in full sentences Back: No spinal tenderness. No costovertebral tenderness. Full range of motion. Skin: Warm, dry with normal turgor. Normal color. MS/ Extremity: Pulses equal, no cyanosis. Neurovascular intact. Full, normal range of motion. Neuro: Awake and alert, GCS 15, oriented to person, place, time, and situation. Moves all extremities. Normal gait. 22:46 Abdomen/GI: Inspection: abdomen appears normal, Bowel sounds: normal, Palpation: soft, in all quadrants, mild abdominal tenderness, in all quadrants, Vital Signs: 19:10 BP 137 / 85; Pulse 73; Resp 15; Temp 98.7(O); Pulse Ox 100% ; Weight 98.43 kg; Height 5 cm10 ft. 5 in. ; Pain 10/10; 20:00 BP 112 / 61; Pulse 72; Resp 18; Pulse Ox 100% on R/A; me1 21:00 BP 137 / 83; Pulse 66; Resp 14; Pulse Ox 99% on R/A; me1 23:00 BP 129 / 85; Pulse 77; Resp 16; Pulse Ox 97% ; vc1 11/11 00:00 BP 137 / 83; Pulse 72; Resp 17; Pulse Ox 98% ; vc1 01:00 BP 100 / 73; Pulse 70; Resp 15; Temp 97.8; Pulse Ox 98% ; vc1 11/10 19:10 Body Mass Index 36.11 (98.43 kg, 165.1 cm) cm10 11/10 19:10 Pain Scale: Adult cm10 Chilo Coma Score: 11/10 19:12 Eye Response: spontaneous(4). Motor Response: obeys commands(6). Verbal Response: cm10 oriented(5). Total: 15. MDM: 19:11 Patient medically screened. kb 22:46 Differential diagnosis: abnormal electrolytes, seizure, nonspecific abd pain, kb infection. Data reviewed: vital signs, nurses notes. Consideration of Admission/Observation Escalation of care including admission/observation considered. admission considered for hypocalcemia, but Dr Navarro recommends follow up after calcium replacement. Management of patient was discussed with the following: Dr Navarro recommends 4 grams calcium gluconate IV and may discharge home. . Counseling: I had a detailed discussion with the patient and/or guardian regarding the historical points, exam findings, and any diagnostic results supporting the discharge/admit diagnosis, lab results, radiology results, the need for outpatient follow up, a family practitioner, to return to the emergency department if symptoms worsen or persist or if there are any questions or concerns that arise at home. 11/10 19:16 Order name: CBC with Diff; Complete Time: 19:53 kb 11/10 19:16 Order name: CMP; Complete Time: 20:07 kb 11/10 19:16 Order name: Lipase; Complete Time: 20:07 kb 11/10 19:16 Order name: Test, Urine; Complete Time: 20:07 kb 11/10 19:16 Order name: Urinalysis w/ reflexes; Complete Time: 20:07 kb 11/10 19:16 Order name: CT Abd/Pelvis - IV Contrast Only; Complete Time: 21:26 kb 11/10 19:16 Order name: CT Head Brain wo Cont; Complete Time: 21:26 kb 11/10 19:16 Order name: IV Saline Lock; Complete Time: 19:43 kb 11/10 19:16 Order name: Labs collected and sent; Complete Time: 19:43 kb 11/10 19:56 Order name: Seizure Precautions; Complete Time: 19:56 vc1 Administered Medications: 19:36 Drug: NS 0.9% IV 1000 ml IV at 1 bolus Per protocol; 1000 mL bolus Route: IV; Rate: 1 me1 bolus; Site: right antecubital; 19:36 Drug: Ondansetron IVP 4 mg IVP once; over 2 minutes Route: IVP; Site: right antecubital;me1 20:50 Drug: Ondansetron IVP 4 mg IVP once; over 2 minutes Route: IVP; Site: right antecubital;me1 21:19 Follow up: Response: No adverse reaction; Nausea is decreased me1 20:50 Drug: morphine IVP or IV 4 mg IVP once over 4 mins Route: IVP; Infused Over: 4 mins; me1 Site: right antecubital; 21:19 Follow up: Response: No adverse reaction; Pain is decreased me1 20:50 Drug: Calcium Gluconate IVPB 2 grams IVPB once over 60 mins; (mix in NS 100 mL) Route: me1 IVPB; Infused Over: 60 mins; Site: right antecubital; 21:42 Follow up: Response: No adverse reaction; IV Status: Completed infusion; IV Intake: me1 100ml 21:42 Drug: Calcium Gluconate IVPB 2 grams IVPB once over 60 mins; (mix in NS 100 mL) Route: me1 IVPB; Infused Over: 60 mins; Site: right antecubital; 22:42 Follow up: IV Status: Completed infusion; IV Intake: 100ml vc1 21:57 Drug: Ketorolac IVP 15 mg IVP once Route: IVP; Site: right antecubital; me1 23:30 Follow up: Response: No adverse reaction; No change in condition vc1 23:39 Drug: Albumin IVPB 25 grams 100 ml IVPB once; (Note: Albumin 25% concentration) Volume: vc1 100 ml; Route: IVPB; Site: right antecubital; 11/11 00:40 Follow up: IV Status: Completed infusion; IV Intake: 100ml vc1 11/10 23:39 Drug: Cordova PO 10 mg-325 mg 1 tabs PO once Route: PO; vc1 11/11 01:22 Follow up: Response: No adverse reaction; Marked relief of symptoms; Pain is decreased vc1 11/10 23:40 Drug: Promethazine IVP 12.5 mg IVP once Route: IVP; Site: right antecubital; vc1 11/11 01:22 Follow up: Response: No adverse reaction; Marked relief of symptoms; Nausea is decreasedvc1 Disposition Summary: 11/11/23 23:55 Discharge Ordered Notes: Location: Home(11/11/23 23:55) kb Condition: Stable(11/11/23 23:55) kb Diagnosis - Hypocalcemia(11/11/23 23:55) kb - Epileptic seizures related to external causes kb - Abdominal pain, Generalized(11/11/23 23:55) kb Followup: kb - With: Emergency Department - When: As needed - Reason: Worsening of condition Followup: kb - With: Private Physician - When: 2 - 3 days - Reason: Recheck today's complaints, Continuance of care, Re-evaluation by your physician Discharge Instructions: - Discharge Summary Sheet kb - Abdominal Pain, Adult, [id number] kb - Seizure, Adult, [id number] kb - Hypocalcemia, Adult kb Forms: - Medication Reconciliation Form kb - Antibiotic Education kb - Prescription Opioid Use kb - Patient Portal Instructions kb - Leadership Thank You Letter kb Signatures: Dispatcher [employer] Diana Adams, MANAGER PET-C MANAGER PET-Ely Lala RN RN vc1 Comfort Hess RN RN cm10 Cathryn Gaston, RN RN me1 Corrections: (The following items were deleted from the chart) 11/10 22:51 22:49 Home kb kb 22:51 22:49 Stable kb kb 22:51 22:49 Hypocalcemia kb kb 22:51 22:49 Other seizures kb kb 22:51 22:49 Abdominal pain, Generalized kb kb
--- NOTE | 2023-11-11 22:49 | ER ---
Nurse's Notes [facility] Name: Lavinia Jarrett Age: 42 yrs Sex: Female : 1980 Arrival Date: 11/11/2023 Time: 19:01 Bed 14 Private MD: Diagnosis: Hypocalcemia;Epileptic seizures related to external causes;Abdominal pain, Generalized Presentation: 11/10 19:10 Chief complaint: Patient states: Had a seizure Saturday and another one today. Pt cm10 reports abdominal pain, back pain, nausea and vaginal discharge. PT also complaining of numbness to right side onset Saturday. Coronavirus screen: Client denies travel out of the [place] in the last 14 days. At this time, the client does not indicate any symptoms associated with coronavirus-19. Ebola Screen: Patient denies travel to an Ebola-affected area in the 21 days before illness onset. No symptoms or risks identified at this time. Initial Sepsis Screen: Does the patient meet any 2 criteria? No. Patient's initial sepsis screen is negative. Does the patient have a suspected source of infection? No. Patient's initial sepsis screen is negative. Risk Assessment: Do you want to hurt yourself or someone else? Patient reports no desire to harm self or others. Onset of symptoms was November 09, 2023. 19:10 Method Of Arrival: Ambulatory cm10 19:10 Acuity: KIKA 3 cm10 Triage Assessment: 19:12 General: Appears in no apparent distress. comfortable, Behavior is calm, cooperative. cm10 Neuro: No deficits noted. Level of Consciousness is awake, alert, obeys commands, Oriented to person, place, time, situation, Appropriate for age. Respiratory: No deficits noted. Airway is patent Respiratory effort is even, unlabored, Respiratory pattern is regular, symmetrical. 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 - Infectious Disease History:: Denies. - Social history:: Smoking status: Reported history of juuling and/or vaping. Screenin:15 [facility] ED Fall Risk Assessment (Adult) History of falling in the last 3 months, me1 including since admission No falls in past 3 months (0 pts) Confusion or Disorientation No (0 pts) Intoxicated or Sedated No (0 pts) Impaired Gait No (0 pts) Mobility Assist Device Used No (0 pt) Altered Elimination No (0 pt) Score/Fall Risk Level 0 - 2 = Low Risk Maintained a safe environment, Provided non-skid footwear, Hourly rounding (assess needs \T\ fall precautionary measures) done. Abuse screen: Denies threats or abuse. Nutritional screening: No deficits noted. Tuberculosis screening: No symptoms or risk factors identified. Assessment: 19:15 General: Appears uncomfortable, ill, well groomed, well developed, well nourished, me1 Behavior is calm, cooperative, appropriate for age, Reports Had a seizure Saturday and another one today. Pt reports abdominal pain, back pain, nausea and vaginal discharge. PT also complaining of numbness to right side onset Saturday. Pain: Complains of pain in back and abdomen Pain does not radiate. Pain Quality of pain is described as aching, Pain began gradually, Is continuous. Neuro: Level of Consciousness is awake, alert, obeys commands, Oriented to person, place, time, situation, Appropriate for age Reports seizure on Saturday and today. Cardiovascular: Patient's skin is warm and dry. Respiratory: Airway is patent Respiratory effort is even, unlabored, Respiratory pattern is regular, symmetrical. GI: Reports upper abdominal pain, nausea. : Reports vaginal discharge. EENT: No signs and/or symptoms were reported regarding the EENT system. Derm: Skin is intact, is healthy with good turgor, Skin is pink, warm \T\ dry. Musculoskeletal: No signs and/or symptoms reported regarding the musculoskeletal system. 20:04 Reassessment: JOHNNY Ortiz notified of critical lab value. Calcium <5. ss 22:00 Reassessment: Assumed care of patient from KESHAV Lockett. vc1 11/11 00:00 Reassessment: Patient appears in no apparent distress at this time. No changes from vc1 previously documented assessment. Patient and/or family updated on plan of care and expected duration. Pain level reassessed. Patient is alert, oriented x 3, equal unlabored respirations, skin warm/dry/pink. 01:20 Reassessment: Patient appears in no apparent distress at this time. No changes from vc1 previously documented assessment. Patient and/or family updated on plan of care and expected duration. Pain level reassessed. Patient is alert, oriented x 3, equal unlabored respirations, skin warm/dry/pink. Patient states feeling better. Patient states symptoms have improved. Vital Signs: 11/10 19:10 BP 137 / 85; Pulse 73; Resp 15; Temp 98.7(O); Pulse Ox 100% ; Weight 98.43 kg; Height 5 cm10 ft. 5 in. ; Pain 10/10; 20:00 BP 112 / 61; Pulse 72; Resp 18; Pulse Ox 100% on R/A; me1 21:00 BP 137 / 83; Pulse 66; Resp 14; Pulse Ox 99% on R/A; me1 23:00 BP 129 / 85; Pulse 77; Resp 16; Pulse Ox 97% ; vc1 11/11 00:00 BP 137 / 83; Pulse 72; Resp 17; Pulse Ox 98% ; vc1 01:00 BP 100 / 73; Pulse 70; Resp 15; Temp 97.8; Pulse Ox 98% ; vc1 11/10 19:10 Body Mass Index 36.11 (98.43 kg, 165.1 cm) cm10 11/10 19:10 Pain Scale: Adult cm10 Chilo Coma Score: 11/10 19:12 Eye Response: spontaneous(4). Motor Response: obeys commands(6). Verbal Response: cm10 oriented(5). Total: 15. ED Course: 19:04 Patient arrived in ED. im 19:10 Ngozi Newman PA-C is PHCP. sb4 19:10 Jennifer Jackson MD is Attending Physician. sb4 19:11 PHCP role handed off by Ngozi Newman PA-C kb 19:11 Diana Garcia FNP-C is PHCP. kb 19:12 Triage completed. cm10 19:13 Arm band placed on Patient placed in an exam room, on a stretcher. cm10 19:15 Cathryn Gaston, RN is Primary Nurse. me1 19:15 Patient has correct armband on for positive identification. Bed in low position. Call me1 light in reach. Side rails up X 1. Seizure precautions initiated. Provided Education on: POC. Verbalized understanding.. 19:15 No provider procedures requiring assistance completed. me1 19:38 Warm blanket given. oh1 19:38 Inserted saline lock: 20 gauge in right antecubital area, using aseptic technique. oh1 Blood collected. Flushed with 10 mL NS. 19:38 Initial lab(s) drawn, by me, sent to lab. oh1 19:43 CBC with Diff Sent. me1 19:43 CMP Sent. me1 19:43 Lipase Sent. me1 19:56 Seizure precautions initiated. vc1 19:57 Urinalysis w/ reflexes Sent. vc1 19:57 Test, Urine Sent. vc1 20:37 CT Abd/Pelvis - IV Contrast Only In Process Unspecified. EDMS 20:38 CT Head Brain wo Cont In Process Unspecified. EDMS 11/11 01:20 IV discontinued, intact, bleeding controlled, No redness/swelling at site. Pressure vc1 dressing applied. Administered Medications: 11/10 19:36 Drug: NS 0.9% IV 1000 ml IV at 1 bolus Per protocol; 1000 mL bolus Route: IV; Rate: 1 me1 bolus; Site: right antecubital; 19:36 Drug: Ondansetron IVP 4 mg IVP once; over 2 minutes Route: IVP; Site: right antecubital;me1 20:50 Drug: Ondansetron IVP 4 mg IVP once; over 2 minutes Route: IVP; Site: right antecubital;me1 21:19 Follow up: Response: No adverse reaction; Nausea is decreased me1 20:50 Drug: morphine IVP or IV 4 mg IVP once over 4 mins Route: IVP; Infused Over: 4 mins; me1 Site: right antecubital; 21:19 Follow up: Response: No adverse reaction; Pain is decreased me1 20:50 Drug: Calcium Gluconate IVPB 2 grams IVPB once over 60 mins; (mix in NS 100 mL) Route: me1 IVPB; Infused Over: 60 mins; Site: right antecubital; 21:42 Follow up: Response: No adverse reaction; IV Status: Completed infusion; IV Intake: me1 100ml 21:42 Drug: Calcium Gluconate IVPB 2 grams IVPB once over 60 mins; (mix in NS 100 mL) Route: me1 IVPB; Infused Over: 60 mins; Site: right antecubital; 22:42 Follow up: IV Status: Completed infusion; IV Intake: 100ml vc1 21:57 Drug: Ketorolac IVP 15 mg IVP once Route: IVP; Site: right antecubital; me1 23:30 Follow up: Response: No adverse reaction; No change in condition vc1 23:39 Drug: Albumin IVPB 25 grams 100 ml IVPB once; (Note: Albumin 25% concentration) Volume: vc1 100 ml; Route: IVPB; Site: right antecubital; 11/11 00:40 Follow up: IV Status: Completed infusion; IV Intake: 100ml vc1 11/10 23:39 Drug: Witter PO 10 mg-325 mg 1 tabs PO once Route: PO; vc1 11/11 01:22 Follow up: Response: No adverse reaction; Marked relief of symptoms; Pain is decreased vc1 11/10 23:40 Drug: Promethazine IVP 12.5 mg IVP once Route: IVP; Site: right antecubital; vc1 11/11 01:22 Follow up: Response: No adverse reaction; Marked relief of symptoms; Nausea is decreasedvc1 Medication: 11/10 19:15 VIS not applicable for this client. me1 Intake: 21:42 IV: 100ml; Total: 100ml. me1 22:42 IV: 100ml; Total: 200ml. vc1 11/11 00:40 IV: 100ml; Total: 300ml. vc1 Outcome: 11/10 22:49 Discharge ordered by . iveth 23:55 Discharge ordered by . iveth 11/11 01:20 Discharged to home ambulatory, vc1 Condition: good Discharge instructions given to patient, Instructed on discharge instructions, follow up and referral plans. Demonstrated understanding of instructions, follow-up care, 01:20 Patient left the ED. vc1 Signatures: Dispatcher [employer] EDDiana Mao, JUANY-C JUANY-Jackelyn Buenrostro RN RN ss Calcote, Vanessa, RN RN vc1 Ngozi Newman PA-C PAVianey Stacy Clarissa, RN RN cm10 Cathryn Gaston RN RN me1 Gabbie Butler oh1 Corrections: (The following items were deleted from the chart) 11/10 19:15 19:10 Chief complaint: Patient states: Had a seizure Saturday and another one today. Pt me1 reports abdominal pain, back pain, nausea and vaginal discharge. PT also complaining of numbness to right side onset Saturday. cm10
[2023-11-11] MEDS ORDERED: ALBUMIN HUMAN 25% 100 ML IV ONE (23:10)
[2023-11-11] MEDS ORDERED: PROMETHAZINE INJ 25 MG/ML AMP ONE (23:23)
[2023-11-11] MEDS ORDERED: HYDROCODONE/APAP 10/325 TAB ONE (23:24)
[2023-11-12 01:55] VITALS: O2SAT 98
[2023-11-12 01:57] VITALS: BP 100/73; TEMP 97.8
== END 2023-11-12 01:20 | disposition home or self-care (01) ==
LOC: ER 19:01
DX: E83.51 Hypocalcemia (principal); G40.509 Epileptic seizures related to external causes, not intractable, without status epilepticus; R10.84 Generalized abdominal pain; F20.9 Schizophrenia, unspecified
CPT/HCPCS: 96365; 96367; 85025; 81001; 36415; 81025; 83690; 80053; 70450; 74177; 96375; 99284; 96366; Q9967; J2550; J0612; J2405 ×2; P9047; J7030

== ENCOUNTER 2024-01-28 19:55 | Emergency (ER) | payer OTHER ==
[2024-01-28] MEDS ORDERED: ONDANSETRON 4 MG/2 ML VIAL ONE (21:01)
[2024-01-28] MEDS ORDERED: MORPHINE 4 MG/ML SYR ONE ×2 (21:01→22:25)
[2024-01-28] MEDS ORDERED: HYDROCORTISONE SUC 100 MG INJ ONE (21:01)
[2024-01-28] MEDS ORDERED: NA CHLORIDE 0.9% 1,000 ML ONE (21:02)
[2024-01-28] MEDS ORDERED: MORPHINE 2 MG/ML SYR ONE (21:02)
--- NOTE | 2024-01-28 21:16 | RAD REPORT ---
EXAMINATION: ONE VIEW CHEST XR CLINICAL INDICATION: CHEST PAIN TECHNIQUE: Frontal chest projection is submitted. Examination is limited by patient positioning and t echnique. COMPARISON: 09/24/2022 FINDINGS: Mild bilateral pulmonary opacities could represent a viral pneumonitis or mild interstitial pulmonary edema. The heart is upper limit of normal in size. No displaced fractures identified.
[2024-01-28 21:17] LABS: Absolute Monocytes 0.4 K/uL (0.1-1.3); Absolute Neutrophil 3.7 K/uL (1.8-8.0); Basophils % 0.5 % (0-1.3); Eosinophils % 0.8 % (0-4.4); Hematocrit 35.4 % (36.0-45.0); Hemoglobin 11.8 g/dL (12.0-15.0); Lymphocytes % 19.1 % (15.3-44.8); MCH 30.2 pg (27.0-35.0); MCHC 33.2 g/dL (32.0-36.0); MCV 90.9 fL (80-100); MPV 7.9 fL (7.6-11.3); Neutrophils % 72.6 % (41.7-73.7); Platelets 209 thou/uL (152-406); RBC Red Blood Cell Count 3.89 M/uL (3.86-4.86); Red Cell Distribution Width 13.4 % (12.1-15.2)
[2024-01-28 21:18] LABS: PT Prothrombin Time 11.5 SECONDS (9.4-12.5); Protime INR 1.03
[2024-01-28 21:33] LABS: Albumin 3.2 g/dL (3.4-5.0); Albumin/Globulin Ratio 0.9 (1.1-1.8); Alkaline Phosphatase 67 U/L (45-117); BUN Blood Urea Nitrogen 9 mg/dL (7-18); Bicarbonate 25 mEq/L (21-32); Bilirubin Direct 0.2 mg/dL (0-0.2); Bilirubin Indirect, Calculated 0.3 mg/dL (0.2-0.8); Bilirubin Total 0.5 mg/dL (0.2-1.0); Globulin 3.6 g/dL (2.3-3.5); Glomerular Filtration Rate 80 ml/min (=/>90); Glucose Level 88 mg/dL (74-106); Magnesium 2.3 mg/dL (1.6-2.4); NT PRO-BNP 75 pg/mL (<125); Protein, Total 6.8 g/dL (6.4-8.2); Sodium Level 139 mEq/L (136-145); Troponin High Sensitivity 3.3 pg/mL (<58.9)
[2024-01-28 21:34] LABS: ALT/SGPT < 14 U/L (13-56); AST/SGOT < 10 U/L (15-37)
[2024-01-28] MEDS ORDERED: METOCLOPRAMIDE 10 MG/2mL INJ ONE (22:25)
[2024-01-28] MEDS ORDERED: DIPHENHYDRAMINE 50 MG/ML VIAL ONE (22:25)
--- NOTE | 2024-01-29 00:48 | EDPHYS ---
Physician Documentation [facility] Name: Lavinia Katz Age: 43 yrs Sex: Female : 1980 Arrival Date: 01/28/2024 Time: 19:55 Bed 13 Private MD: ED Physician Ben Navarro HPI: 01/27 20:01 This 43 yrs old Female presents to ER via Unassigned with complaints of Chest sp4 Pain, Shortness Of Breath, Headache. 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 01/28 06:44 Patient has 43-year-old female with history of Guion's disease, bipolar disorder, sp4 chronic pain, depression, fibromyalgia, hypothyroidism. Patient presents with complaint of midsternal chest pain associated with shortness of breath.. 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 - Infectious Disease History:: Denies. - Social history:: Smoking status: Reported history of juuling and/or vaping. Patient/guardian denies using alcohol, street drugs. - Family history:: not pertinent. ROS: 01/28 06:44 Constitutional: Negative for fever, chills, and weight loss, positive chest pain, sp4 positive shortness of breath, positive headache All other systems are negative, Exam: 06:44 Constitutional: This is a well developed, well nourished patient who is awake, alert, sp4 and in no acute distress. Head/Face: Normocephalic, atraumatic. Eyes: Pupils equal round and reactive to light, extra-ocular motions intact. Lids and lashes normal. Conjunctiva and sclera are not injected. Cornea within normal limits. Periorbital areas with no swelling, redness, or edema. ENT: Nares patent. No nasal discharge, no septal abnormalities noted. Tympanic membranes are normal and external auditory canals are clear. Oropharynx with no redness, swelling, or masses, exudates, or evidence of obstruction, uvula midline. Mucous membranes moist. Neck: Trachea midline, no thyromegaly or masses palpated, and no cervical lymphadenopathy. Supple, full range of motion without nuchal rigidity, or vertebral point tenderness. Chest/axilla: Normal chest wall appearance and motion. Nontender with no deformity. No lesions are appreciated. Cardiovascular: Regular rate and rhythm with a normal S1 and S2. No gallops, murmurs, or rubs. Normal PMI, no JVD. No pulse deficits. Respiratory: Lungs have equal breath sounds bilaterally, clear to auscultation and percussion. No rales, rhonchi or wheezes noted. No increased work of breathing, no retractions or nasal flaring. Abdomen/GI: Soft, with normal bowel sounds. No distension or tympany. No guarding or rebound. No evidence of tenderness throughout. Back: No spinal tenderness. No costovertebral tenderness. Skin: Warm, dry with normal turgor. Normal color with no rashes, no lesions, and no evidence of cellulitis. Positive vitiligo MS/ Extremity: Pulses equal, no cyanosis. Neurovascular intact. Full, normal range of motion. Neuro: Awake and alert, GCS 15, oriented to person, place, time, and situation. Cranial nerves II-XII grossly intact. Motor strength 5/5 in all extremities. Sensory grossly intact. Psych: Awake, alert, with orientation to person, place and time. Behavior, mood, and affect are within normal limits 06:44 ECG was reviewed by the Attending Physician. EKG at 2011 normal sinus rhythm rate 66. Vital Signs: 01/27 20:01 BP 137 / 90; Pulse 69; Resp 16 S; Temp 97.7(O); Pulse Ox 100% on R/A; Weight 96.62 kg lg3 (R); Height 5 ft. 5 in. (R); Pain 8/10; 21:35 BP 126 / 79; Pulse 61; Pulse Ox 98% on R/A; MAP 94 mmHg; Pain 8/10; tm6 22:30 BP 129 / 68; Pulse 66; Resp 16; Pulse Ox 99% on R/A; jb4 23:10 BP 122 / 64; Pulse 65; Resp 15; Pulse Ox 97% on R/A; jb4 01/28 00:58 BP 98 / 63; Pulse 87; Resp 15; Temp 97.7; Pulse Ox 97% ; Pain 10/10; bm8 01/27 20:01 Body Mass Index 35.44 (96.62 kg, 165.1 cm) lg3 01/27 20:01 Pain Scale: Adult lg3 21:35 Pain Scale: Adult tm6 01/28 00:58 Pain Scale: Adult bm8 [place]ilo Coma Score: 00:58 Eye Response: spontaneous(4). Motor Response: obeys commands(6). Verbal Response: bm8 oriented(5). Total: 15. MDM: 01/27 20:02 Medical Screening Exam initiated sp4 01/28 06:45 Differential diagnosis: acute myocardial infarction, acute pericarditis, anxiety, sp4 coronary artery disease chest wall pain, congestive heart failure esophagitis. HEART Score: History: Slightly Suspicious (0), ECG: Normal (0), Age: < or = 45 years (0), Risk Factors: 1 or 2 risk factors (1), Troponin: < or = 1 x Normal Limit (0), Total Score = 1. The patient was not given aspirin in the Emergency Department. Patient reports taking aspirin within the past 24 hours. Data reviewed: vital signs, nurses notes, old medical records, lab test result(s), EKG, radiologic studies, plain films. ED course: EXAMINATION: ONE VIEW CHEST XR CLINICAL INDICATION: CHEST PAIN TECHNIQUE: Frontal chest projection is submitted. Examination is limited by patient positioning and technique. COMPARISON: 09/24/2022 FINDINGS: Mild bilateral pulmonary opacities could represent a viral pneumonitis or mild interstitial pulmonary edema. The heart is upper limit of normal in size. No displaced fractures identified. . 01/27 20:02 Order name: Basic Metabolic Panel; Complete Time: 22:11 sp4 01/27 20:02 Order name: CBC with Diff; Complete Time: 22:11 sp4 01/27 20:02 Order name: LFT's; Complete Time: 22:11 4 01/27 20:02 Order name: Magnesium; Complete Time: 22:11 4 01/27 20:02 Order name: NT PRO-BNP; Complete Time: 22:11 4 01/27 20:02 Order name: PT-INR; Complete Time: 22:11 4 01/27 20:02 Order name: Troponin HS; Complete Time: 22:11 4 01/27 20:40 Order name: CRP; Complete Time: 22:11 4 01/27 23:20 Order name: Troponin High Sensitivity; Complete Time: 00:44 4 01/27 20:02 Order name: XRAY Chest (1 view); Complete Time: 22:11 [facility] 01/27 23:20 Order name: EKG; Complete Time: 23:20 4 01/27 20:02 Order name: Cardiac monitoring; Complete Time: 20:56 [facility] 01/27 20:02 Order name: EKG - Nurse/Tech; Complete Time: 20:16 [facility] 01/27 20:02 Order name: IV Saline Lock; Complete Time: 21:08 4 01/27 20:02 Order name: Labs collected and sent; Complete Time: 21:08 4 01/27 20:02 Order name: O2 Per Protocol; Complete Time: 20:16 4 01/27 20:02 Order name: O2 Sat Monitoring; Complete Time: 20:16 sp4 EC:44 Rate is 66 beats/min. Rhythm is regular, Normal Sinus Rhythm. QRS [place] is Normal. CT sp4 interval is normal. QRS interval is normal. QT interval is normal. No Q waves. T waves are Normal. No ST changes noted. Clinical impression: No evidence of ischemia. Interpreted by me. Reviewed by me. Administered Medications: 01/27 21:21 Drug: Solu-CORTEF IVP 100 mg IVP once Route: IVP; Site: right antecubital; tm6 21:46 Follow up: Response: No adverse reaction tm6 21:31 Drug: NS 0.9% IV 1000 ml IV at 1000 ml once; to be given as a bolus over 60 minutes tm6 Route: IV; Rate: 1000 ml; Site: right antecubital; 01/28 00:37 Follow up: Response: No adverse reaction; IV Status: Completed infusion; IV Intake: bm8 1000ml 01/27 21:32 Drug: morphine IVP or IV 6 mg IVP once over 4 mins Route: IVP; Infused Over: 4 mins; tm6 Site: right antecubital; 21:46 Follow up: Response: No adverse reaction tm6 21:32 Drug: Ondansetron IVP 4 mg IVP once; over 2 minutes Route: IVP; Site: right antecubital;tm6 21:46 Follow up: Response: No adverse reaction tm6 22:30 Drug: morphine IVP or IV 4 mg IVP once over 4 mins Route: IVP; Infused Over: 4 mins; tm6 Site: right antecubital; 01/28 00:37 Follow up: Response: No adverse reaction bm8 01/27 22:30 Drug: metoCLOPramide IVP 10 mg IVP once; over 1 to 2 minutes Route: IVP; Site: right tm6 antecubital; 01/28 00:37 Follow up: Response: No adverse reaction bm8 01/27 22:31 Drug: diphenhydrAMINE IVP 25 mg IVP once Route: IVP; Site: right antecubital; tm6 01/28 00:37 Follow up: Response: No adverse reaction bm8 00:57 Drug: Methocarbamol PO 1500 mg PO once Route: PO; bm8 01:00 Follow up: Response: No adverse reaction bm8 Disposition Summary: 01/29/24 00:48 Discharge Ordered Notes: Location: Home sp4 Problem: new sp4 Symptoms: have improved sp4 Condition: Stable sp4 Diagnosis - Chest pain, unspecified sp4 - Noncardiac chest pain, history of adrenal insufficiency, history of Aston's sp4 disease, acute back pain , acute musculoskeletal pain Followup: sp4 - With: Private Physician - When: 5 - 6 days - Reason: Recheck today's complaints Discharge Instructions: - Discharge Summary Sheet sp4 - Nonspecific Chest Pain, Adult, [id number] sp4 Forms: - Patient Portal Instructions sp4 Prescriptions: - methocarbamol 750 mg Oral tablet - take 2 tablets ORAL route 4 times per day for 3 days PRN back pain; 60 tablet; sp4 Refills: 0, Product Selection Permitted Signatures: Dispatcher [facility] Tammy Garcia RN RN lg3 Ben Navarro MD MD sp4 Gina Sandoval, RN RN tm6 Steve Harris, RN RN bm8
--- NOTE | 2024-01-29 00:48 | ER ---
Nurse's Notes [facility] Name: Lavinia Katz Age: 43 yrs Sex: Female : 1980 Arrival Date: 01/28/2024 Time: 19:55 Bed 13 Private MD: Diagnosis: Chest pain, unspecified;Noncardiac chest pain, history of adrenal insufficiency, history of [place]'s disease, acute back pain , acute musculoskeletal pain Presentation: 01/27 20:01 Chief complaint: Patient states: seizure 3 days ago. chest pain, SOB and headache ever lg3 since. Coronavirus screen: Client denies travel out of the [place] in the last 14 days. At this time, the client does not indicate any symptoms associated with coronavirus-19. Ebola Screen: No symptoms or risks identified at this time. Initial Sepsis Screen: Does the patient meet any 2 criteria? No. Patient's initial sepsis screen is negative. Does the patient have a suspected source of infection? No. Patient's initial sepsis screen is negative. Risk Assessment: Do you want to hurt yourself or someone else? Patient reports no desire to harm self or others. Onset of symptoms was January 26, 2024. 20:01 Method Of Arrival: Ambulatory lg3 20:01 Acuity: KIKA 3 lg3 Triage Assessment: 20:10 General: Appears in no apparent distress. uncomfortable, Behavior is calm, cooperative. lg3 Pain: Complains of pain in head and chest Pain currently is 8 out of 10 on a pain scale. EENT: No deficits noted. No signs and/or symptoms were reported regarding the EENT system. Neuro: No deficits noted. Mistry Agitation-Sedation Scale (RASS): 0 - Alert and Calm Level of Consciousness is awake, alert, obeys commands, Oriented to person, place, time, situation, Reports headache. Cardiovascular: Reports chest pain, shortness of breath, Heart tones S1 S2 present Capillary refill < 3 seconds Clubbing of nail beds is absent JVD is absent Patient's skin is warm and dry. Respiratory: No deficits noted. Reports shortness of breath Airway is patent Respiratory effort is even, unlabored, Respiratory pattern is regular, symmetrical, Breath sounds are clear bilaterally. GI: No deficits noted. No signs and/or symptoms were reported involving the gastrointestinal system. : No signs and/or symptoms were reported regarding the genitourinary system. Derm: No deficits noted. No signs and/or symptoms reported regarding the dermatologic system. Skin is intact, is healthy with good turgor, Skin is dry, Skin is normal, Skin temperature is warm. Musculoskeletal: No deficits noted. No signs and/or symptoms reported regarding the musculoskeletal system. Circulation, motion, and sensation intact. Range of motion: intact in all extremities. 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 - Infectious Disease History:: Denies. - Social history:: Smoking status: Reported history of juuling and/or vaping. Patient/guardian denies using alcohol, street drugs. - Family history:: not pertinent. Screenin:14 [facility] ED Fall Risk Assessment (Adult) History of falling in the last 3 months, lg3 including since admission No falls in past 3 months (0 pts) Confusion or Disorientation No (0 pts) Intoxicated or Sedated No (0 pts) Impaired Gait No (0 pts) Mobility Assist Device Used No (0 pt) Altered Elimination No (0 pt) Score/Fall Risk Level 0 - 2 = Low Risk Oriented to surroundings, Maintained a safe environment, Educated pt \T\ family on fall prevention, incl call for assistance when getting out of bed, Assessed \T\ reinforced patient's understanding of fall precautions. Abuse screen: Denies threats or abuse. Denies injuries from another. Nutritional screening: No deficits noted. Tuberculosis screening: No symptoms or risk factors identified. Assessment: 20:14 General: see triage assessment. Pain: Complains of pain in chest and head Pain does not lg3 radiate. Pain began 2-3 days ago. 21:34 General: Appears in no apparent distress. Behavior is calm, cooperative. Pain: tm6 Complains of pain in chest Pain currently is 8 out of 10 on a pain scale. Neuro: Level of Consciousness is awake, alert, obeys commands, Oriented to person, place, time, situation. Cardiovascular: Reports chest pain, Patient's skin is warm and dry. Respiratory: Airway is patent Respiratory effort is even, unlabored, Respiratory pattern is regular, symmetrical. GI: No signs and/or symptoms were reported involving the gastrointestinal system. Abdomen is flat, non-distended. : No signs and/or symptoms were reported regarding the genitourinary system. EENT: No signs and/or symptoms were reported regarding the EENT system. Derm: No signs and/or symptoms reported regarding the dermatologic system. Musculoskeletal: No signs and/or symptoms reported regarding the musculoskeletal system. 22:30 Reassessment: Patient appears in no apparent distress at this time. Patient and/or jb4 family updated on plan of care and expected duration. Pain level reassessed. Patient is alert, oriented x 3, equal unlabored respirations, skin warm/dry/pink. 23:30 Reassessment: Patient appears in no apparent distress at this time. Patient and/or jb4 family updated on plan of care and expected duration. Pain level reassessed. Patient is alert, oriented x 3, equal unlabored respirations, skin warm/dry/pink. 01/28 00:58 Reassessment: Patient appears in no apparent distress at this time. Patient and/or bm8 family updated on plan of care and expected duration. Pain level reassessed. Patient is alert, oriented x 3, equal unlabored respirations, skin warm/dry/pink. General: Appears in no apparent distress. comfortable, Behavior is calm, cooperative, appropriate for age. General: pt shows no outward signs of distress, is moving all ext with ease. . Pain: Complains of pain in back and chest Pain currently is 10 out of 10 on a pain scale. Quality of pain is described as aching, crampy. Cardiovascular: Reports chest pain, Heart tones S1 S2 present Capillary refill < 3 seconds in bilateral fingers Patient's skin is warm and dry. Rhythm is sinus rhythm. Respiratory: Airway is patent Respiratory effort is even, unlabored, Respiratory pattern is regular, symmetrical, Breath sounds are clear bilaterally. Musculoskeletal: Reports pain in back Pain is 10 out of 10 on a pain scale. Vital Signs: 01/27 20:01 BP 137 / 90; Pulse 69; Resp 16 S; Temp 97.7(O); Pulse Ox 100% on R/A; Weight 96.62 kg lg3 (R); Height 5 ft. 5 in. (R); Pain 8/10; 21:35 BP 126 / 79; Pulse 61; Pulse Ox 98% on R/A; MAP 94 mmHg; Pain 8/10; tm6 22:30 BP 129 / 68; Pulse 66; Resp 16; Pulse Ox 99% on R/A; jb4 23:10 BP 122 / 64; Pulse 65; Resp 15; Pulse Ox 97% on R/A; jb4 01/28 00:58 BP 98 / 63; Pulse 87; Resp 15; Temp 97.7; Pulse Ox 97% ; Pain 10/10; bm8 01/27 20:01 Body Mass Index 35.44 (96.62 kg, 165.1 cm) lg3 01/27 20:01 Pain Scale: Adult lg3 21:35 Pain Scale: Adult tm6 01/28 00:58 Pain Scale: Adult bm8 Chilo Coma Score: 00:58 Eye Response: spontaneous(4). Motor Response: obeys commands(6). Verbal Response: bm8 oriented(5). Total: 15. ED Course: 01/27 19:58 Patient arrived in ED. mr 20:01 Ben Navarro MD is Attending Physician. sp4 20:03 Triage completed. lg3 20:10 Arm band placed on left wrist. lg3 20:14 Patient has correct armband on for positive identification. lg3 20:14 EKG done, by ED staff, reviewed by Ben Navarro MD. lg3 20:14 Patient maintains SpO2 saturation greater than 95% on room air. lg3 20:28 Gina Sandoval, RN is Primary Nurse. tm6 21:08 Initial lab(s) drawn, by me, sent to lab. Inserted saline lock: 20 gauge in right bm8 antecubital area, using aseptic technique. Blood collected. Flushed with 10 mL NS. 21:13 XRAY Chest (1 view) In Process Unspecified. EDMS 21:34 Provided Education on: use of call hill. Client placed on continuous cardiac and pulse tm6 oximetry monitoring. NIBP monitoring applied. campus monitor on. Pulse ox on. NIBP on. 01/28 00:58 No provider procedures requiring assistance completed. IV discontinued, intact, bm8 bleeding controlled, No redness/swelling at site. Pressure dressing applied. Administered Medications: 01/27 21:21 Drug: Solu-CORTEF IVP 100 mg IVP once Route: IVP; Site: right antecubital; tm6 21:46 Follow up: Response: No adverse reaction tm6 21:31 Drug: NS 0.9% IV 1000 ml IV at 1000 ml once; to be given as a bolus over 60 minutes tm6 Route: IV; Rate: 1000 ml; Site: right antecubital; 01/28 00:37 Follow up: Response: No adverse reaction; IV Status: Completed infusion; IV Intake: bm8 1000ml 01/27 21:32 Drug: morphine IVP or IV 6 mg IVP once over 4 mins Route: IVP; Infused Over: 4 mins; tm6 Site: right antecubital; 21:46 Follow up: Response: No adverse reaction tm6 21:32 Drug: Ondansetron IVP 4 mg IVP once; over 2 minutes Route: IVP; Site: right antecubital;tm6 21:46 Follow up: Response: No adverse reaction tm6 22:30 Drug: morphine IVP or IV 4 mg IVP once over 4 mins Route: IVP; Infused Over: 4 mins; tm6 Site: right antecubital; 01/28 00:37 Follow up: Response: No adverse reaction bm8 01/27 22:30 Drug: metoCLOPramide IVP 10 mg IVP once; over 1 to 2 minutes Route: IVP; Site: right tm6 antecubital; 01/28 00:37 Follow up: Response: No adverse reaction bm8 01/27 22:31 Drug: diphenhydrAMINE IVP 25 mg IVP once Route: IVP; Site: right antecubital; tm6 01/28 00:37 Follow up: Response: No adverse reaction bm8 00:57 Drug: Methocarbamol PO 1500 mg PO once Route: PO; bm8 01:00 Follow up: Response: No adverse reaction bm8 Medication: 01/27 21:34 VIS not applicable for this client. tm6 Intake: 01/28 00:37 IV: 1000ml; Total: 1000ml. bm8 Outcome: 00:48 Discharge ordered by spDenice 00:58 Discharged to home ambulatory, bm8 00:58 Condition: stable 00:58 Discharge instructions given to patient, Instructed on discharge instructions, follow up and referral plans. medication usage, safety practices, Demonstrated understanding of instructions, follow-up care, medications, Prescriptions given X 1, 01:01 Patient left the ED. bm8 Signatures: Dispatcher [employer] EDOH Elvin Lidia, Reg Reg mr Johnny Diana, RN RN jb4 Tammy Shell, RN RN [id number] Ben Navarro MD MD sp4 Gina Sandoval RN RN tm6 Steve Harris, RN RN bm8
[2024-01-29] MEDS ORDERED: methocarbamoL 750 MG TAB ONE (00:53)
[2024-01-29 07:05] VITALS: TEMP 97.7
[2024-01-29 07:22] VITALS: O2SAT 97
[2024-01-29 07:23] VITALS: BP 98/63
== END 2024-01-29 01:01 | disposition home or self-care (01) ==
LOC: ER 19:55
DX: R07.89 Other chest pain (principal); M54.9 Dorsalgia, unspecified; M79.18 Myalgia, other site; E27.1 Primary adrenocortical insufficiency; R51.9 Headache, unspecified
CPT/HCPCS: 96361; 85025; 80048; 36415; 83735; 85610; 80076; 84484 ×2; 83880; 86140; 71045; 96375; 96374; 99285; J2765; J1200; J2270; J1720; J2405; J7030

== ENCOUNTER 2024-06-21 19:54 | Emergency (ER) | payer MEDICAID ==
--- OUTSIDE RECORDS SUMMARY | 2024-06-21 20:10 | XMS REPORT | Continuity of Care Document ---
Author Name Unknown Address [address] [facility] [place] [address] [facility] [place] Address [address] 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 Role Phone Pcp, Patient Does Not Have A Primary Care Physic vasiliy Cinda Briceno Attending Clinician Unavailable BROOKLYN HARTMAN Attending Clinician BROOKLYN Flores Attending Clinician PERCY Elizondo Attending Clinician Unavailable Isidro VASQUEZ, Fiona Attending Clinician +[phone] Faye Rothman Attending Clinician [phone] Percy Andrade MD Attending Clinician [phone] Stephanie, Ang - Db Attending Clinician Unavailable EMILY GIL Attending Clinician Unavailable Brooklyn Hartman MD Attending Clinician + [phone] Marco Gayle MD Attending Clinician + [phone] MARCO GAYLE Attending Clinician Unavailable Emily Jesus Attending Clinician +[phone] FAYE NAPOLES Attending Clinician Unavailable KRISSY DE DIOS Attending Clinician Unavailable DIONNE JAVIER Attending Clinician Unavailable JOSE FRANCISCO BETH Attending Clinician Unavailable Doctor Unassigned, Switzer Attending Clinician U navailable MAMTA LEMUS Attending Clinician Beatriz clari HARRINGTON, Faye Attending Clinician + UNKNOWN, ATTENDING Attending Clinician Unavailab janie Andrade MD, Percy Jo Attending Clinician +[phone] LANIE LOPEZ Attending Clinician Unavailable LANIE LOPEZ Attending Clinician Unavailable KIZZY MACKEY Attending Clinician Unavail able KIZZY MACKEY Attending Clinician Unavail able Lab, Ang - Db Attending Clinician Unavailable TEJAL SULLIVAN Attending Clinician Unavailable Tejal Sullivan NP Attending Clinician +[phone] Gaetano VASQUEZ, Jose Bejarano Attending Clinician +[phone] Emily Jesus Attending Clinician + [phone] Marco Gayle MD Attending Clinician + MOO PARK Attending Clinician Unavailable Moo Samayoa Attending Clinician +[phone] Jacki PARR, Pearl Herrera Attending Clinician Unav ARIES Bowie Attending Clinician Unavailable Chema Dominguez MD Attending Clinician + DEBRA IRVIN Attending Clinician Unavailable Nancy Gutierrez Attending Clinician + Debra Irvin MD Attending Clinician +[phone] FIONA FELIX Attending Clinician Unavailable JOSE BOWEN Attending Clinician Unavailable Pob, Adc Lab Main Attending Clinician UnavailAries Hoover PA-C Attending Clinician + NANCY CANNON Attending Clinician Unavailable CHEMA DOMINGUEZ Attending Clinician UnavailJosse CUETO, Maribell Attending Clinician + [phone] Senia Esparza DO Attending Clinician +[phone] Fiona Felix MD Attending Clinician +[phone] Zully VASQUEZ, Nicole Hsieh Attending Clinician FAYE Kahn Admitting Clinician Unavailable TEJAL SULLIVAN Admitting Clinician Unavailable BROOKLYN HARTMAN Admitting Clinician UnavaMOO Romero Admitting Clinician Unavailable Payers Payer Name Policy Type Policy Number Effective Date Expirati on Date Source Problems Condition Name Condition Details Condition Category Status Onset Date Resolution Date Last Treatment Date Treating Clinician Comments Source Trichomona l vulvovagin itis Trichomona l vulvovagin itis Disease Active 5-04 00:00: 00 [facility] Vitiligo Vitiligo Disease Active 2022-02 00:00: 00 [facility] Eczema, unspecifie d type Eczema, unspecifie d type Disease Active 2022-02 0 00:00: 00 [facility] Hematoma Hematoma Disease Active 09-04 00:00: 00 [facility] Bipolar disorder Bipolar disorder Disease Active 08-30 00:00: 00 [facility] CPAP (continuou s positive airway pressure) dependence CPAP (continuou s positive airway pressure) dependence Disease Active 08-30 00:00: 00 [facility] Diverticul osis of intestine without bleeding, unspecifie d intestinal tract location Diverticul osis of intestine without bleeding, unspecifie d intestinal tract location Disease Active 08-30 00:00: 00 [facility] Gastroesop hageal reflux disease Gastroesop hageal reflux disease Disease Active 08-30 00:00: 00 [facility] History of excision of intestinal structure History of excision of intestinal structure Disease Active 08-30 00:00: 00 [facility] Insomnia, unspecifie d type Insomnia, unspecifie d type Disease Active 08-30 00:00: 00 [facility] Migraine without status migrainosu s, not intractabl e, unspecifie d migraine type Migraine without status migrainosu s, not intractabl e, unspecifie d migraine type Disease Active 08-30 00:00: 00 [facility] Mixed anxiety and depressive disorder Mixed anxiety and depressive disorder Disease Active 08-30 00:00: 00 [facility] Obstructiv e sleep apnea Obstructiv e sleep apnea Disease Active 08-30 00:00: 00 [facility] Graves' disease Graves' disease Disease Active 08-02 00:00: 00 [facility] Abdominal pain, right lower quadrant Abdominal pain, right lower quadrant Disease Active 08-02 00:00: 00 Overview: Formattin g of this note might be different from the original. Added automatic ally from request for surgery [id number] [facility] Right ovarian cyst Right ovarian cyst Disease Active 08-02 00:00: 00 Overview: Formattin g of this note might be different from the original. 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 Active 05-23 00:00: 00 [facility] Aston disease Aston disease Disease Active 03-31 00:00: 00 [facility] Hydrosalpi nx Hydrosalpi nx Disease Active 03-09 00:00: 00 [facility] Cyst of maxillary sinus Cyst of maxillary sinus Disease Active 03-09 00:00: 00 [facility] Female infertilit y of unspecifie d origin Female infertilit y of unspecifie d origin Disease Active 03-09 00:00: 00 [facility] Irritable bowel syndrome with both constipati on and diarrhea Irritable bowel syndrome with both constipati on and diarrhea Disease Active 03-09 00:00: 00 [facility] Fibromyalg ia Fibromyalg ia Disease Active 2015-02 00:00: 00 [facility] Pain in joint, multiple sites Pain in joint, multiple sites Disease Active 2015-02 00:00: 00 [facility] History of adrenal insufficie ncy History of adrenal insufficie ncy Disease Active 2015-02 00:00: 00 [facility] Chronic fatigue Chronic fatigue Disease Active 2015-02 00:00: 00 [facility] Morbid obesity with body mass index (BMI) of 40.0 or higher Morbid obesity with body mass index (BMI) of 40.0 or higher Disease Active 2016-1 2-04 00:00: 00 [facility] 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 Disease Active 2015-02 00:00: 00 [facility] 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 Disease Active 2015-02 0 00:00: 00 [facility] Low serum cortisol level Low serum cortisol level Disease Active 10-31 00:00: 00 [facility] Postablati ve hypothyroi dism Postablati ve hypothyroi dism Disease Active 09-04 00:00: 00 [facility] Weight gain Weight gain Disease Active 09-04 00:00: 00 [facility] Weight gain Weight gain Disease Active 09-04 00:00: 00 [facility] Disorder of thyroid Disorder of thyroid Disease Active 10-19 00:00: 00 Overview: Formattin g of this note might be different from the original. 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 [employer] [facility] Migraine without status migrainosu s, not intractabl e, unspecifie d migraine type Migraine without status migrainosu s, not intractabl e, unspecifie d migraine type Problem Active [facility] Obstructiv e sleep apnea Obstructiv e sleep apnea Problem Active [facility] Gallstone Gallstone Problem Active [facility] Fibromyalg ia Fibromyalg ia Problem Active [facility] Chronic pain syndrome Chronic pain syndrome Problem Active [facility] Muscle weakness Muscle weakness Problem Active [facility] Insomnia, unspecifie d type Insomnia, unspecifie d type Problem Active [facility] Bipolar disorder Bipolar disorder Problem Active [facility] Hypothyroi dism, unspecifie d type Hypothyroi dism, unspecifie d type Problem Active [facility] Depression with anxiety Depression with anxiety Problem Active [facility] Foot pain Foot pain Problem Active [facility] CPAP (continuou s positive airway pressure) dependence CPAP (continuou s positive airway pressure) dependence Problem Active [facility] Diverticul osis of intestine without bleeding, unspecifie d intestinal tract location Diverticul osis of intestine without bleeding, unspecifie d intestinal tract location Problem Active [facility] Abdominal pain, unspecifie d abdominal location Abdominal pain, unspecifie d abdominal location Problem Active [facility] Irritable bowel syndrome with constipati on Irritable bowel syndrome with constipati on Problem Active [facility] Gastroesop hageal reflux disease, esophagiti s presence not specified Gastroesop hageal reflux disease, esophagiti s presence not specified Problem Active [facility] Status post hysterecto my Status post hysterecto my Disease Resolve d 7-11 00:00: 00 2023-06-25 00:00:00 2023-06-25 10:13:59 [facility] Anogenital warts in female Anogenital warts in female Disease Resolve d 2017-02 0-02 00:00: 00 2022-08-02 00:00:00 2022-08-02 09:13:38 [facility] BV (bacterial vaginosis) BV (bacterial vaginosis) Disease Resolve d 1-17 00:00: 00 2022-08-02 00:00:00 2022-08-02 09:13:38 [facility] Morbid obesity with body mass index of 50 or higher Morbid obesity with body mass index of 50 or higher Disease Resolve d 2015-02 2-04 00:00: 00 2021-01-16 00:00:00 2021-01-16 14:16:13 [facility] Allergies, Adverse Reactions, Alerts Allergy Name Allergy Type Status Severity Reaction(s) Onset Date Inactive Date Treating Clinician Comments Source LATEX DRUG INGREDI Active High ITCHING 2015-02 00:00: 00 [facility] Latex Propensi ty to adverse reaction s to drug Active Itching 2015-02 00:00: 00 [facility] Social History Social Habit Start Date Stop Date Quantity Comments Source Gender identity [facility] Sexual orientation [facility] ASSERTION Not [facility] History of Social function 2023-07-19 00:00:00 2023-07-19 00:00:00 [facility] Alcohol intake 2023-06-25 00:00:00 2023-06-25 00:00:00 0 /d [facility] Exposure to SARS-CoV-2 (event) 2022-07-23 00:00:00 2022-08-02 07:35:[address] [facility] Tobacco Comment 2022-08-02 00:00:00 2022-08-02 00:00:00 Pt smokes 1 pack a day total of [address] [facility] Alcoholic beverage intake 2018-06-12 00:00:00 2018-06-12 00:00:00 0 /d [facility] Cigarettes smoked current (pack per day) - Reported 2017-05-27 00:00:00 2017-05-27 00:00:00 [facility] Tobacco use and exposure 2017-05-27 00:00:00 2017-05-27 00:00:00 Smokeless tobacco non-user [facility] Cigarette pack-years 2017-05-27 00:00:00 2017-05-27 00:00:00 [facility] History of tobacco use 2000-02-26 00:00:00 2005-02-25 00:00:[address] [facility] Sex assigned at 1980 00:00:00 1980 00:00:00 [facility] Smoking Status Start Date Stop Date Source Smokes tobacco daily 2022-08-02 00:00:00 [facility] Ex-smoker 2017-05-27 00:00:00 2017-05-27 00:00:00 [facility] Medications Ordered Medication Name Filled Medication Name Start Date Stop Date Current Medication? Ordering Clinician Indication Dosage Frequency Signature (SIG) Comments Components Source levothyroxi ne 125 mcg tablet 2023-02 00:00: 00 Yes [id number] 125ug Take 1 tablet by mouth every morning. [facility] phentermine 37.5 mg capsule 2023-02 00:00: 00 Yes [id number] 104 37.5mg Take 1 capsule by mouth every morning. [facility] topiramate 50 mg tablet 2023-02 00:00: 00 01-12 00:00 :00 No [id number] 75mg Take 1.5 tablets by mouth in the morning. [facility] metroNIDAZO LE (FLAGYL) 500 mg tablet 2023-02 0 00:00: 00 Yes [id number] 500mg Take 1 tablet by mouth every 12 (twelve) hours. [facility] levothyroxi ne 125 mcg tablet 10-11 00:00: 00 01-12 00:00 :00 No [id number] 125ug Take 1 tablet by mouth every [...] take it as soon as you remember. [facility] topiramate 25 mg tablet 10-10 00:00: 00 01-12 00:00 :00 No [id number] 50mg Take 2 tablets by mouth in the morning. [facility] levothyroxi ne 125 mcg tablet 8 00:00: 00 10-11 00:00 :00 No [id number] 125ug Take 1 tablet by mouth every morning. MUST BE SEEN FOR FURTHER REFILLS [facility] metroNIDAZO LE (FLAGYL) 500 mg tablet 5-04 00:00: 00 Yes [id number] 500mg Take 1 tablet by mouth every 12 (twelve) hours. [facility] oxcarbazepi ne (TRILEPTAL ORAL) 06-24 09:25: 16 Yes Take by mouth. [facility] fluconazole 150 mg tablet 30 00:00: 00 06-25 04:59 :00 No [id number] 150mg Take 1 tablet by mouth once now for 1 dose. [facility] levothyroxi ne 125 mcg tablet 06-23 00:00: 00 10-01 00:00 :00 No [id number] 125ug Take 1 tablet by mouth every morning. Must get labs done. [facility] triamcinolo ne acetonide 0.1 % ointment 06-12 00:00: 00 Yes [id number] Apply to area(s) 2 (two) times daily. [facility] levothyroxi ne 125 mcg tablet 05-26 00:00: 00 06-23 00:00 :00 No [id number] 125ug Take 1 tablet by mouth every morning. [facility] hydrocortis one 10 mg tablet 03-04 00:00: 00 Yes [id number] Take 1 tablet in the morning and half tablet at night [facility] hydrocortis one sod succ (SOLU-AMY F) 100 mg injection 03-04 00:00: 00 Yes [id number] 100mg 2 mL by Intramuscu lar route as needed (for when patient is unconsciou s). [facility] Syringe, Disposable, 3 mL Syrg 03-04 00:00: 00 Yes [id number] Use as directed once [facility] Needle, Disp, 21 G 21 gauge x 1 1/2" Ndle 03-04 00:00: 00 Yes [id number] Use as directed [facility] phentermine 37.5 mg capsule 03-04 00:00: 00 01-12 00:00 :00 No [id number] 104 37.5mg Take 1 capsule by mouth every morning. [facility] topiramate 25 mg tablet 03-04 00:00: 00 10-10 00:00 :00 No [id number] 50mg Take 2 tablets by mouth in the morning. [facility] topiramate 25 mg tablet 2022-02 00:00: 00 03-04 00:00 :00 No [id number] 50mg Take 2 tablets by mouth in the morning. [facility] triamcinolo ne acetonide 0.1 % ointment 2022-02 0-19 00:00: 00 06-10 00:00 :00 No [id number] Apply to area(s) 2 (two) times daily. [facility] LEVOTHYROXI NE 125 mcg tablet 2022-02 00:00: 00 05-25 00:00 :00 No [id number] 125ug TAKE 1 TABLET BY MOUTH EVERY DAY IN THE MORNING [facility] rOPINIRole 1 mg tablet 2022-02 005 16:29: 29 11-29 00:00 :00 No 1mg Take 1 tablet by mouth at bedtime. [facility] proMETHazin e 25 mg tablet 2022-02 0 16:29: 16 11-29 00:00 :00 No Take by mouth as needed. [facility] FENTanyl 25 mcg/hr patch 2022-02 16:29: 00 11-29 00:00 :00 No 1{patch } Apply 1 Patch to skin every 72 (seventy-t wo) hours. [facility] phentermine 37.5 mg capsule 10-22 00:00: 00 03-04 00:00 :00 No [id number] 104 37.5mg Take 1 capsule by mouth every morning. [facility] topiramate 25 mg tablet 10-22 00:00: 00 01-26 00:00 :00 No [id number] 50mg Take 2 tablets by mouth in the morning. [facility] levothyroxi ne 125 mcg tablet 10-15 00:00: 00 12-02 00:00 :00 No [id number] 125ug Take 1 tablet by mouth every morning. [facility] hydrocortis one sod succ (CORTEF) injection 100 mg 09-17 08:45: 00 09-17 08:04 :00 No 100mg 100 mg, Intravenou s, ONCE, 1 dose, On Sat09/17/22 at 0345, 2 mL [facility] ondansetron (ZOFRAN (PF)) injection 4 mg 09-17 07:54: 00 09-17 07:55 :00 No 4mg 4 mg, Slow IV Push, ONCE, 1 dose, On Sat09/17/22 at 0300, [facility] dicyclomine (BENTYL) injection 20 mg 09-17 07:45: 00 09-17 07:47 :00 No 20mg 20 mg, Intramuscu lar, ONCE NOW, 1 dose, On Sat09/17/22 at 0245, Routine [facility] alum-mag hydroxide-s imeth (MAALOX PLUS / MAG-AL PLUS) 200-200-20 mg/5 mL suspension 30 mL 09-17 07:00: 00 09-17 07:52 :00 No 30mL 30 mL, Oral, ONCE, 1 dose, On Sat09/17/22 at 0200, [facility] morpHINE (2 mg/mL) injection 2 mg 09-17 07:00: 00 09-17 07:45 :00 No 2mg 2 mg, Slow IV Push, ONCE, 1 dose, On Sat09/17/22 at 0200, STAT [facility] NaCl 0.9% (NS) bolus infusion 500 mL 09-17 06:00: 00 09-17 07:55 :00 No 500mL at 999 mL/hr, 500 mL, IV Infusion, ONCE, 1 dose, On Sat09/17/22 at 0100, STAT [facility] iopamidol (ISOVUE 370-500 mL) injection 75 mL 09-17 06:00: 00 09-17 05:11 :00 No [id number] 75mL 75 mL, Intravenou s, ONCE, 1 dose, On Sat09/17/22 at 0100, Routine [facility] ketorolac (TORADOL) injection 30 mg 09-17 04:45: 00 09-17 04:47 :00 No 30mg 30 mg, Slow IV Push, ONCE, 1 dose, On 09/16/22 at 2345, Routine [facility] diazePAM (VALIUM) injection 5 mg 09-17 03:45: 00 09-17 04:45 :00 No 5mg 5 mg, Slow IV Push, ONCE, 1 dose, On Sat09/16/22 at 2245, STAT [facility] FENTanyl 25 mcg/hr patch 09-14 09:30: 16 Yes 1{patch } Apply 1 Patch to skin every 72 (seventy-t wo) hours. [facility] proMETHazin e 25 mg tablet 09-14 09:30: 16 Yes Take by mouth as needed. [facility] WEGOVY 0.25 mg/0.5 mL PnIj SC injection 09-06 00:00: 00 10-22 00:00 :00 No [id number] .25mg INJECT 0.25 MG UNDER THE SKIN WEEKLY. [facility] levothyroxi ne 125 mcg tablet 09-05 00:00: 00 10-15 00:00 :00 No [id number] 125ug Take 1 tablet by mouth every morning. [facility] topiramate 25 mg tablet 09-04 16:05: 41 09-04 00:00 :00 No Take by mouth daily. [facility] rizatriptan (MAXALT) 10 mg tablet 09-04 00:00: 00 Yes [id number] 10mg Take 1 tablet by mouth as needed for Migraine. May repeat in 2 hours if needed [facility] topiramate 25 mg tablet 09-04 00:00: 00 10-22 00:00 :00 No [id number] 50mg Take 2 tablets by mouth in the morning. [facility] semaglutide , weight loss, (WEGOVY) 0.25 mg/0.5 mL PnIj SC injection 09-04 00:00: 00 09-06 00:00 :00 No [id number] .25mg inject 0.25 mg under the skin weekly. [facility] proMETHazin e 25 mg tablet 08-30 16:31: 42 Yes Take by mouth as needed. [facility] HYDROCORTIS ONE 10 mg tablet 08-25 00:00: 00 03-04 00:00 :00 No [id number] TAKE 1 TABLET BY MOUTH TWICE A DAY [facility] lactated ringers IV infusion 1,000 mL 08-20 14:45: 00 Yes 1000mL at 75 mL/hr, 1,000 mL, IV Infusion, CONTINUOUS , Starting on Sat08/20/22 at 0945, Until Discontinu ed, Routine, PACU [facility] HYDROcodone -acetaminop hen (NORCO 5) 5-325 mg tablet 1 tablet 08-20 14:42: 27 Yes 1{tbl} 1 tablet, Oral, PRN, 1 dose, Starting on Sat08/20/22 at 0942, Until Discontinu ed, Routine, Pain (scale 4-6), [facility] ibuprofen (IBU) tablet 800 mg 08-20 14:42: 27 Yes 800mg 800 mg, Oral, PRN, 1 dose, Starting on Sat08/20/22 at 0942, Until Discontinu ed, Routine, Pain (scale 1-3), [facility] HYDROcodone -acetaminop hen (NORCO) 10-325 mg tablet 1 tablet 08-20 14:42: 27 08-20 15:34 :00 No 1{tbl} 1 tablet, Oral, PRN, 1 dose, Starting on Sat08/20/22 at 0942, Until Discontinu ed, Routine, Pain (scale 7-10), [facility] ondansetron (ZOFRAN (PF)) injection 4 mg 08-20 14:42: 14 Yes 4mg 4 mg, Slow IV Push, PRN, 1 dose, Starting on Sat08/20/22 at 0942, Until Discontinu ed, Routine, Nausea and Vomiting (N/V), PACU [facility] FENTanyl PF (SUBLIMAZE (PF)) injection 25 mcg 08-20 14:42: 14 08-20 15:23 :00 No 25ug 25 mcg, Slow IV Push, Q5MIN PRN, 4 doses, Starting on Sat08/20/22 at 0942, Until Sat08/20/22 at 1023, Routine, Pain (scale 4-6), PACU [facility] bupivacaine (preserv free) 0.5% (SENSORCAIN E MPF) 0.5 % (5 mg/mL) injection 08-20 13:00: 00 08-20 14:46 :23 No PRN, Starting on Sat08/20/22 at 0800, Until Sat08/20/22 at 0946, Routine, Intra-op [facility] sodium chloride 0.9 % irrigation solution 08-20 13:00: 00 08-20 14:46 :23 No PRN, Starting on Sat08/20/22 at 0800, Until Sat08/20/22 at 0946, Intra-op [facility] lactated ringers IV infusion 1,000 mL 08-20 12:15: 00 Yes 1000mL at 100 mL/hr, 1,000 mL, IV Infusion, CONTINUOUS , Starting on Sat08/20/22 at 0715, Until Discontinu ed, Routine, PACU [facility] CITALOPRAM HYDROBROMID E (CELEXA ORAL) 08-20 11:26: 02 Yes 40mg Take 40 mg by mouth in the morning. [facility] FENTanyl 25 mcg/hr patch 08-20 11:26: 02 Yes 1{patch } Apply 1 Patch to skin every 72 (seventy-t wo) hours. [facility] rOPINIRole 1 mg tablet 08-20 11:26: 02 Yes 1mg Take 1 tablet by mouth at bedtime. [facility] topiramate 25 mg tablet 08-20 11:26: 02 Yes Take by mouth daily. [facility] proMETHazin e 25 mg tablet 08-20 11:26: 02 Yes Take by mouth as needed. [facility] OXCARBAZEPI NE (TRILEPTAL ORAL) 08-20 11:26: 02 08-20 00:00 :00 No 300mg Take 300 mg by mouth in the morning and 300 mg in the evening. [facility] traMADoL 50 mg tablet 08-20 11:25: 59 08-20 00:00 :00 No Take by mouth as needed. [facility] OXCARBAZEPI NE (TRILEPTAL ORAL) 08-20 09:34: 50 08-20 00:00 :00 No 300mg Take 300 mg by mouth in the morning and 300 mg in the evening. [facility] ibuprofen 800 mg tablet 08-20 00:00: 00 11-29 00:00 :00 No [id number] 800mg Take 1 tablet by mouth every 6 (six) hours as needed for Pain (scale 1-3). [facility] HYDROcodone -acetaminop hen (NORCO) 7.5-325 mg per tablet 08-20 00:00: 00 08-28 04:59 :00 No [id number] 1{tbl} Take 1 tablet by mouth every 6 (six) hours as needed for Pain for up to 7 days. Indication s: acute pain [facility] HYDROcodone -acetaminop hen 5-325 mg tablet 08-20 00:00: 00 08-20 00:00 :00 No [id number] 1{tbl} Take 1 tablet by mouth every 6 (six) hours as needed for Pain (scale 4-6) or Pain (scale 7-10). Indication s: acute pain [facility] levothyroxi ne 150 mcg tablet 08-17 00:00: 00 09-05 00:00 :00 No [id number] 150ug Take 1 tablet by mouth every morning. Please wait for 30 minutes to an hour before you eat or drink anything. [facility] OXCARBAZEPI NE (TRILEPTAL ORAL) 08-09 10:09: 34 Yes 300mg Take 300 mg by mouth in the morning and 300 mg in the evening. [facility] topiramate 25 mg tablet 08-09 10:09: 34 Yes Take by mouth daily. [facility] proMETHazin e 25 mg tablet 08-09 10:09: 34 Yes Take by mouth as needed. [facility] traMADoL 50 mg tablet 08-09 10:09: 34 Yes Take by mouth as needed. [facility] CITALOPRAM HYDROBROMID E (CELEXA ORAL) 08-09 09:52: 09 Yes 40mg Take 40 mg by mouth in the morning. [facility] FENTanyl 25 mcg/hr patch 08-09 09:52: 09 Yes 1{patch } Apply 1 Patch to skin every 72 (seventy-t wo) hours. [facility] rOPINIRole 1 mg tablet 08-09 09:52: 09 Yes 1mg Take 1 tablet by mouth at bedtime. [facility] ibuprofen 800 mg tablet 08-02 00:00: 00 08-20 00:00 :00 No [id number] 800mg Take 1 tablet by mouth every 8 (eight) hours as needed for Pain (scale 4-6). [facility] ketorolac (TORADOL) injection 30 mg 07-29 04:00: 00 07-29 02:59 :00 No 30mg 30 mg, Slow IV Push, ONCE, 1 dose, On 07/28/22 at 2300, Routine [facility] morpHINE (4 mg/mL) injection 4 mg 07-29 02:00: 00 07-29 01:53 :00 No 4mg 4 mg, Slow IV Push, ONCE, 1 dose, On 07/28/22 at 2100, STAT [facility] morpHINE (4 mg/mL) injection 4 mg 07-29 00:30: 00 07-29 00:17 :00 No 4mg 4 mg, Slow IV Push, ONCE, 1 dose, On 07/28/22 at 1930, STAT [facility] iopamidol (ISOVUE 370-500 mL) injection 90 mL 07-29 00:00: 00 07-29 00:00 :00 No [id number] 90mL 90 mL, Intravenou s, ONCE, 1 dose, On 07/28/22 at 1900, Routine [facility] ondansetron (ZOFRAN (PF)) injection 4 mg 07-28 22:15: 00 07-28 22:22 :00 No 4mg 4 mg, Slow IV Push, ONCE, 1 dose, On 07/28/22 at 1715, [facility] morpHINE (4 mg/mL) injection 4 mg 07-28 22:15: 00 07-28 22:27 :00 No 4mg 4 mg, Slow IV Push, ONCE, 1 dose, On 07/28/22 at 1715, STAT [facility] cefpodoxime 100 mg tablet 07-28 00:00: 00 08-05 04:59 :00 No [id number] 100mg Take 1 tablet by mouth in the morning and 1 tablet in the evening. Do all this for 7 days. [facility] LATUDA 20 mg tablet 07-27 00:00: 00 Yes Take by mouth at bedtime. [facility] TOPIRAMATE 25 mg tablet 07-25 00:00: 00 09-04 00:00 :00 No [id number] TAKE 1 TABLET BY MOUTH EVERY DAY IN THE MORNING [facility] atomoxetine 60 mg capsule 28 00:00: 00 Yes 60mg Take 1 capsule by mouth in the morning and 1 capsule in the evening. [facility] cloNIDine 0.1 mg tablet 26 00:00: 00 Yes Take by mouth as needed. [facility] HYDROcodone -acetaminop hen 10-325 mg tablet 4-14 00:00: 00 Yes 1{tbl} Take 1 tablet by mouth in the morning and 1 tablet in the evening. [facility] phentermine 37.5 mg capsule 1-04 00:00: 00 08-20 00:00 :00 No [id number] 37.5mg Take 1 capsule by mouth every morning. [facility] levothyroxi ne 175 mcg tablet 1-04 00:00: 08-17 00:00 :00 No [id number] 175ug Take 1 tablet by mouth every morning. TAKE 1 TABLET DAILY SATURDAY THROUGH SATURDAY, AND 1/2 TABLET ON SATURDAY [facility] topiramate 25 mg tablet 1- 00:00: 00 07-25 00:00 :00 No [id number] 25mg Take 1 tablet by mouth in the morning. [facility] phentermine 37.5 mg capsule 2021-02 00:00: 00 02-28 00:00 :00 No [id number] 37.5mg Take 1 capsule by mouth every morning. [facility] topiramate 25 mg tablet 2021-02 0-03 00:00: 02-28 00:00 :00 No [id number] 25mg Take 1 tablet by mouth in the morning. [facility] semaglutide , weight loss, (WEGOVY) 0.25 mg/0.5 mL PnIj SC injection 2021-02 0-03 00:00: 00 12-20 00:00 :00 No [id number] .25mg inject 0.25 mg under the skin weekly. [facility] topiramate 25 mg tablet 9-30 00:00: 11-27 00:00 :00 No [id number] TAKE 1 TABLET BY MOUTH EVERY DAY [facility] PHENTERMINE 37.5 mg capsule 8-28 00:00: 00 11-27 00:00 :00 No [id number] TAKE 1 CAPSULE BY MOUTH EVERY DAY IN THE MORNING [facility] levothyroxi ne 175 mcg tablet 7-30 00:00: 00 02-28 00:00 :00 No [id number] TAKE 1 TABLET DAILY SATURDAY THROUGH SATURDAY, AND 1/2 TABLET ON SATURDAY. [facility] hydrocortis one sod succ (SOLU-AMY F) 100 mg injection 08-23 00:00: 00 03-04 00:00 :00 No [id number] 100mg 2 mL by Intramuscu lar route as needed (for when patient is unconsciou s). [facility] hydrocortis one 10 mg tablet 08-23 00:00: 00 08-25 00:00 :00 No [id number] 10mg Take 1 tablet by mouth 2 (two) times daily. [facility] topiramate 25 mg tablet 08-04 00:00: 00 11-24 00:00 :00 No [id number] 25mg Take 1 tablet by mouth daily. [facility] PHENTERMINE 37.5 mg capsule 08-01 00:00: 00 10-22 00:00 :00 No [id number] TAKE 1 CAPSULE BY MOUTH EVERY DAY IN THE MORNING [facility] LEVOTHYROXI NE 175 mcg tablet 05-17 00:00: 00 09-23 00:00 :00 No [id number] TAKE 1 TABLET DAILY SATURDAY THROUGH SATURDAY, AND 1/2 TABLET ON SATURDAY. [facility] norethindro ne 0.35 mg tablet 2020-02 00:00: 00 08-20 00:00 :00 No [id number] 1{tbl} Take 1 tablet by mouth daily. [facility] oxcarbazepi ne (TRILEPTAL ORAL) 2020-02 13:09: 42 Yes 40mg Take by mouth. [facility] FENTanyl 25 mcg/hr patch 2020-02 13:09: 42 Yes 1{patch } Apply 1 Patch to skin every 72 (seventy-t wo) hours. [facility] rOPINIRole 1 mg tablet 2020-02 13:09: 42 Yes 1mg Take 1 mg by mouth at bedtime. [facility] hydrocortis one 10 mg tablet 3-03 00:00: 00 07-09 00:00 :00 No [id number] TAKE 1 AND 1/2 TABLETS BY MOUTH EVERY MORNING AND 1 TABLET AT 2:00 PM [facility] LEVOTHYROXI NE 175 mcg tablet 04-24 00:00: 00 07-23 00:00 :00 No [id number] TAKE 1 TABLET BY MOUTH AND HALF A TABLET ON SUNDAYS [facility] phentermine 37.5 mg capsule 10-31 00:00: 00 05-19 00:00 :00 No [id number] 37.5mg Take 1 capsule by mouth every morning. [facility] topiramate 25 mg tablet 10-31 00:00: 00 05-19 00:00 :00 No [id number] 25mg Take 1 tablet by mouth daily. [facility] Nitrofurant oin&Nit. Macrocryst 100 mg capsule 18 00:00: 00 07-23 00:00 :00 No [id number] 100mg Take 1 capsule by mouth 2 (two) times daily. [facility] Movantik Movantik 04-22 00:00: 00 08-20 00:00 :00 No Cinda Millender 1 tablet in the morning [facility] Pantoprazol e Sodium Pantoprazol e Sodium 10-25 00:00: 00 Yes Cidna Millender 1 tablet [facility] Chlordiazep oxide-Clidi nium Chlordiazep oxide-Clidi nium 10-25 00:00: 00 08-20 00:00 :00 No Cinda Millender 1 capsule [facility] ondansetron 4 mg disintegrat ing tablet 2016-02 00:00: 00 08-20 00:00 :00 No [facility] SUMAtriptan 50 mg tablet 04-26 00:00: 00 01-06 00:00 :00 No [facility] LYRICA 100 mg capsule 2015-02 00:00: 00 03-04 00:00 :00 No [facility] hydrocortis one sod succ (SOLU-AMY F) 100 mg injection 2015-02 00:00: 00 05-13 17:07 :44 No 100mg 2 mL by Intramuscu lar route as needed (for when patient is unconsciou s). [facility] SAVELLA 50 mg tablet 2015-02 00:00: 00 03-04 00:00 :00 No 25mg Take 0.5 tablets by mouth in the morning and 0.5 tablets in the evening. [facility] pantoprazol e (PROTONIX) 40 mg EC tablet 11-15 00:00: 00 07-23 00:00 :00 No 40mg Take 40 mg by mouth daily. [facility] Neurontin Neurontin Yes Cinda Millender 1 capsule [facility] Amitriptyli ne HCl Amitriptyli ne HCl Yes Cinda Millender 1 tablet [facility] Topamax Topamax Yes Cinda Millender 1 tablet [facility] Zofran Zofran Yes Cinda Millender 1 tablet [facility] Ultram Ultram Yes Cinda Millender 1 tablet as needed [facility] Lyrica Lyrica Yes Cinda Millender 1 capsule [facility] Robaxin Robaxin Yes Cinda Millender 1.5 tablets [facility] Trazodone HCl Trazodone HCl Yes Cinda Millender 1 tablet at bedtime as needed [facility] Protonix Protonix Yes Cinda Millender 1 tablet [facility] Savella Savella Yes Cinda Millender 1 tablet [facility] Synthroid Synthroid Yes Cinda Millender 1 tablet on an empty stomach in the morning [facility] Imitrex Imitrex Yes Cinda Millender 1 tablet as needed [facility] Citalopram Hydrobromid e Citalopram Hydrobromid e Yes Cinda Millender 1 tablet [facility] Clonazepam Clonazepam Yes Cinda Millender 1 tablet [facility] Cyclobenzap rine HCl Cyclobenzap rine HCl Yes Cinda Millender 1 tablet as needed [facility] Furosemide Furosemide Yes Cinda Millender 1 tablet as needed for leg swelling [facility] Effexor XR Effexor XR Yes Cinda Millender 1 capsule with food [facility] Immunizations Ordered Immunization Name Filled Immunization Name Date Status Comments Source Influenza Virus Vaccine Quad IM, Preserv and ABX Free 6 MO-64 YRS (FLUCELVAX) 2023-03-04 00:00:[address] [facility] Influenza Virus Vaccine Quad IM, Preserv and ABX Free 6 MO-64 YRS (FLUCELVAX) 2023-03-04 00:00:[address] [facility] Influenza Virus Vaccine Quad IM, Preserv and ABX Free 6 MO-64 YRS 2021-01-05 00:00:[address] [facility] Pneumococcal 13 Conjugate, PCV13 (Prevnar 13) 2021-01-05 00:00:[address] [facility] TDAP 2021-01-05 00:00:[address] [facility] Influenza Virus Vaccine Quad IM, Preserv and ABX Free 6 MO-64 YRS 2021-01-05 00:00:[address] [facility] Pneumococcal 13 Conjugate, PCV13 (Prevnar 13) 2021-01-05 00:00:[address] [facility] TDAP 2021-01-05 00:00:[address] [facility] Influenza Virus Vaccine Quad IM, Preserv and ABX Free 6 MO-64 YRS 2021-01-05 00:00:[address] [facility] Pneumococcal 13 Conjugate, PCV13 (Prevnar 13) 2021-01-05 00:00:[address] [facility] TDAP 2021-01-05 00:00:[address] [facility] Influenza Virus Vaccine Quad IM, Preserv and ABX Free 6 MO-64 YRS 2021-01-05 00:00:[address] [facility] Pneumococcal 13 Conjugate, PCV13 (Prevnar 13) 2021-01-05 00:00:[address] [facility] TDAP 2021-01-05 00:00:[address] [facility] Influenza Virus Vaccine Quad IM, Preserv and ABX Free 6 MO-64 YRS 2021-01-05 00:00:[address] [facility] Pneumococcal 13 Conjugate, PCV13 (Prevnar 13) 2021-01-05 00:00:[address] [facility] TDAP 2021-01-05 00:00:[address] [facility] Influenza Virus Vaccine Quad IM, Preserv and ABX Free 6 MO-64 YRS 2021-01-05 00:00:[address] [facility] Pneumococcal 13 Conjugate, PCV13 (Prevnar 13) 2021-01-05 00:00:[address] [facility] TDAP 2021-01-05 00:00:[address] [facility] Influenza Virus Vaccine Quad IM, Preserv and ABX Free 6 MO-64 YRS 2021-01-05 00:00:[address] [facility] Pneumococcal 13 Conjugate, PCV13 (Prevnar 13) 2021-01-05 00:00:[address] [facility] TDAP 2021-01-05 00:00:[address] [facility] Influenza Virus Vaccine Quad IM, Preserv and ABX Free 6 MO-64 YRS 2021-01-05 00:00:[address] [facility] Pneumococcal 13 Conjugate, PCV13 (Prevnar 13) 2021-01-05 00:00:[address] [facility] TDAP 2021-01-05 00:00:[address] [facility] Influenza Virus Vaccine Quad IM, Preserv and ABX Free 6 MO-64 YRS 2021-01-05 00:00:[address] [facility] Pneumococcal 13 Conjugate, PCV13 (Prevnar 13) 2021-01-05 00:00:[address] [facility] TDAP 2021-01-05 00:00:[address] [facility] Influenza Virus Vaccine Quad IM, Preserv and ABX Free 6 MO-64 YRS 2021-01-05 00:00:[address] [facility] Pneumococcal 13 Conjugate, PCV13 (Prevnar 13) 2021-01-05 00:00:[address] [facility] TDAP 2021-01-05 00:00:[address] [facility] Influenza Virus Vaccine Quad IM, Preserv and ABX Free 6 MO-64 YRS 2021-01-05 00:00:[address] [facility] Pneumococcal 13 Conjugate, PCV13 (Prevnar 13) 2021-01-05 00:00:[address] [facility] TDAP 2021-01-05 00:00:[address] [facility] Influenza Virus Vaccine Quad IM, Preserv and ABX Free 6 MO-64 YRS 2021-01-05 00:00:[address] [facility] Pneumococcal 13 Conjugate, PCV13 (Prevnar 13) 2021-01-05 00:00:[address] [facility] TDAP 2021-01-05 00:00:[address] [facility] Influenza Virus Vaccine Quad IM, Preserv and ABX Free 6 MO-64 YRS 2021-01-05 00:00:[address] [facility] Pneumococcal 13 Conjugate, PCV13 (Prevnar 13) 2021-01-05 00:00:[address] [facility] TDAP 2021-01-05 00:00:[address] [facility] Influenza Virus Vaccine Quad IM, Preserv and ABX Free 6 MO-64 YRS 2021-01-05 00:00:[address] [facility] Pneumococcal 13 Conjugate, PCV13 (Prevnar 13) 2021-01-05 00:00:[address] [facility] TDAP 2021-01-05 00:00:[address] [facility] Influenza Virus Vaccine Quad IM, Preserv and ABX Free 6 MO-64 YRS 2021-01-05 00:00:[address] [facility] Pneumococcal 13 Conjugate, PCV13 (Prevnar 13) 2021-01-05 00:00:[address] [facility] TDAP 2021-01-05 00:00:[address] [facility] Influenza Virus Vaccine Quad IM, Preserv and ABX Free 6 MO-64 YRS 2021-01-05 00:00:[address] [facility] Pneumococcal 13 Conjugate, PCV13 (Prevnar 13) 2021-01-05 00:00:[address] [facility] TDAP 2021-01-05 00:00:[address] [facility] Influenza Virus Vaccine Quad IM, Preserv and ABX Free 6 MO-64 YRS 2021-01-05 00:00:[address] [facility] Pneumococcal 13 Conjugate, PCV13 (Prevnar 13) 2021-01-05 00:00:[address] [facility] TDAP 2021-01-05 00:00:[address] [facility] Influenza Virus Vaccine Quad IM, Preserv and ABX Free 6 MO-64 YRS 2021-01-05 00:00:[address] [facility] Pneumococcal 13 Conjugate, PCV13 (Prevnar 13) 2021-01-05 00:00:[address] [facility] TDAP 2021-01-05 00:00:[address] [facility] Influenza Virus Vaccine Quad IM, Preserv and ABX Free 6 MO-64 YRS 2021-01-05 00:00:[address] [facility] Pneumococcal 13 Conjugate, PCV13 (Prevnar 13) 2021-01-05 00:00:[address] [facility] TDAP 2021-01-05 00:00:[address] [facility] Influenza Virus Vaccine Quad IM, Preserv and ABX Free 6 MO-64 YRS 2021-01-05 00:00:[address] [facility] Pneumococcal 13 Conjugate, PCV13 (Prevnar 13) 2021-01-05 00:00:[address] [facility] TDAP 2021-01-05 00:00:[address] [facility] Influenza Virus Vaccine Quad IM, Preserv and ABX Free 6 MO-64 YRS 2021-01-05 00:00:[address] [facility] Pneumococcal 13 Conjugate, PCV13 (Prevnar 13) 2021-01-05 00:00:[address] [facility] TDAP 2021-01-05 00:00:[address] [facility] Influenza Virus Vaccine Quad IM, Preserv and ABX Free 6 MO-64 YRS 2021-01-05 00:00:[address] [facility] Pneumococcal 13 Conjugate, PCV13 (Prevnar 13) 2021-01-05 00:00:[address] [facility] TDAP 2021-01-05 00:00:[address] [facility] Influenza Virus Vaccine Quad IM, Preserv and ABX Free 6 MO-64 YRS 2021-01-05 00:00:[address] [facility] Pneumococcal 13 Conjugate, PCV13 (Prevnar 13) 2021-01-05 00:00:[address] [facility] TDAP 2021-01-05 00:00:[address] [facility] Influenza Virus Vaccine Quad IM, Preserv and ABX Free 6 MO-64 YRS 2021-01-05 00:00:[address] [facility] Pneumococcal 13 Conjugate, PCV13 (Prevnar 13) 2021-01-05 00:00:[address] [facility] TDAP 2021-01-05 00:00:[address] [facility] Influenza Virus Vaccine Quad IM, Preserv and ABX Free 6 MO-64 YRS 2021-01-05 00:00:[address] [facility] Pneumococcal 13 Conjugate, PCV13 (Prevnar 13) 2021-01-05 00:00:[address] [facility] TDAP 2021-01-05 00:00:[address] [facility] Influenza Virus Vaccine Quad IM, Preserv and ABX Free 6 MO-64 YRS 2021-01-05 00:00:[address] [facility] Pneumococcal 13 Conjugate, PCV13 (Prevnar 13) 2021-01-05 00:00:[address] [facility] TDAP 2021-01-05 00:00:[address] [facility] Influenza Virus Vaccine Quad IM, Preserv and ABX Free 6 MO-64 YRS 2021-01-05 00:00:[address] [facility] Pneumococcal 13 Conjugate, PCV13 (Prevnar 13) 2021-01-05 00:00:[address] [facility] TDAP 2021-01-05 00:00:[address] [facility] Influenza Virus Vaccine Quad IM, Preserv and ABX Free 6 MO-64 YRS 2021-01-05 00:00:[address] [facility] Pneumococcal 13 Conjugate, PCV13 (Prevnar 13) 2021-01-05 00:00:[address] [facility] TDAP 2021-01-05 00:00:[address] [facility] Influenza Virus Vaccine Quad IM, Preserv and ABX Free 6 MO-64 YRS 2021-01-05 00:00:[address] [facility] Pneumococcal 13 Conjugate, PCV13 (Prevnar 13) 2021-01-05 00:00:[address] [facility] TDAP 2021-01-05 00:00:[address] [facility] Influenza Virus Vaccine Quad IM, Preserv and ABX Free 6 MO-64 YRS 2021-01-05 00:00:[address] [facility] Pneumococcal 13 Conjugate, PCV13 (Prevnar 13) 2021-01-05 00:00:[address] [facility] TDAP 2021-01-05 00:00:[address] [facility] Influenza Virus Vaccine Quad IM, Preserv and ABX Free 6 MO-64 YRS 2021-01-05 00:00:[address] [facility] Pneumococcal 13 Conjugate, PCV13 (Prevnar 13) 2021-01-05 00:00:[address] [facility] TDAP 2021-01-05 00:00:[address] [facility] Influenza Virus Vaccine Quad IM, Preserv and ABX Free 6 MO-64 YRS 2021-01-05 00:00:[address] [facility] Pneumococcal 13 Conjugate, PCV13 (Prevnar 13) 2021-01-05 00:00:[address] [facility] TDAP 2021-01-05 00:00:[address] [facility] Influenza Virus Vaccine Quad IM, Preserv and ABX Free 6 MO-64 YRS 2021-01-05 00:00:[address] [facility] Pneumococcal 13 Conjugate, PCV13 (Prevnar 13) 2021-01-05 00:00:[address] [facility] TDAP 2021-01-05 00:00:[address] [facility] Influenza Virus Vaccine Quad IM, Preserv and ABX Free 6 MO-64 YRS 2021-01-05 00:00:[address] [facility] Pneumococcal 13 Conjugate, PCV13 (Prevnar 13) 2021-01-05 00:00:[address] [facility] TDAP 2021-01-05 00:00:[address] [facility] Influenza Virus Vaccine Quad IM, Preserv and ABX Free 6 MO-64 YRS 2021-01-05 00:00:[address] [facility] Pneumococcal 13 Conjugate, PCV13 (Prevnar 13) 2021-01-05 00:00:[address] [facility] TDAP 2021-01-05 00:00:[address] [facility] Influenza Virus Vaccine Quad IM, Preserv and ABX Free 6 MO-64 YRS 2021-01-05 00:00:[address] [facility] Pneumococcal 13 Conjugate, PCV13 (Prevnar 13) 2021-01-05 00:00:[address] [facility] TDAP 2021-01-05 00:00:[address] [facility] Influenza Virus Vaccine Quad IM, Preserv and ABX Free 6 MO-64 YRS 2021-01-05 00:00:[address] [facility] Pneumococcal 13 Conjugate, PCV13 (Prevnar 13) 2021-01-05 00:00:[address] [facility] TDAP 2021-01-05 00:00:[address] [facility] Influenza Virus Vaccine Quad IM, Preserv and ABX Free 6 MO-64 YRS 2021-01-05 00:00:[address] [facility] Pneumococcal 13 Conjugate, PCV13 (Prevnar 13) 2021-01-05 00:00:[address] [facility] TDAP 2021-01-05 00:00:[address] [facility] Influenza Virus Vaccine Quad IM, Preserv and ABX Free 6 MO-64 YRS 2021-01-05 00:00:[address] [facility] Pneumococcal 13 Conjugate, PCV13 (Prevnar 13) 2021-01-05 00:00:[address] [facility] TDAP 2021-01-05 00:00:[address] [facility] Influenza Virus Vaccine Quad IM, Preserv and ABX Free 6 MO-64 YRS 2021-01-05 00:00:[address] [facility] Pneumococcal 13 Conjugate, PCV13 (Prevnar 13) 2021-01-05 00:00:[address] [facility] TDAP 2021-01-05 00:00:[address] [facility] Influenza Virus Vaccine Quad IM, Preserv and ABX Free 6 MO-64 YRS 2021-01-05 00:00:[address] [facility] Pneumococcal 13 Conjugate, PCV13 (Prevnar 13) 2021-01-05 00:00:[address] [facility] TDAP 2021-01-05 00:00:[address] [facility] Influenza Virus Vaccine Quad IM, Preserv and ABX Free 6 MO-64 YRS 2021-01-05 00:00:[address] [facility] Pneumococcal 13 Conjugate, PCV13 (Prevnar 13) 2021-01-05 00:00:[address] [facility] TDAP 2021-01-05 00:00:[address] [facility] Influenza Virus Vaccine Quad IM, Preserv and ABX Free 6 MO-64 YRS 2021-01-05 00:00:[address] [facility] Pneumococcal 13 Conjugate, PCV13 (Prevnar 13) 2021-01-05 00:00:[address] [facility] TDAP 2021-01-05 00:00:[address] [facility] Influenza Virus Vaccine Quad IM, Preserv and ABX Free 6 MO-64 YRS 2021-01-05 00:00:[address] [facility] Pneumococcal 13 Conjugate, PCV13 (Prevnar 13) 2021-01-05 00:00:[address] [facility] TDAP 2021-01-05 00:00:[address] [facility] Influenza Virus Vaccine Quad IM, Preserv and ABX Free 6 MO-64 YRS 2021-01-05 00:00:[address] [facility] Pneumococcal 13 Conjugate, PCV13 (Prevnar 13) 2021-01-05 00:00:[address] [facility] TDAP 2021-01-05 00:00:[address] [facility] Influenza Virus Vaccine Quad IM, Preserv and ABX Free 6 MO-64 YRS 2021-01-05 00:00:[address] [facility] Pneumococcal 13 Conjugate, PCV13 (Prevnar 13) 2021-01-05 00:00:[address] [facility] TDAP 2021-01-05 00:00:[address] [facility] Influenza Virus Vaccine Quad IM, Preserv and ABX Free 6 MO-64 YRS 2021-01-05 00:00:[address] [facility] Pneumococcal 13 Conjugate, PCV13 (Prevnar 13) 2021-01-05 00:00:[address] [facility] TDAP 2021-01-05 00:00:[address] [facility] Influenza Virus Vaccine Quad IM, Preserv and ABX Free 6 MO-64 YRS 2021-01-05 00:00:[address] [facility] Pneumococcal 13 Conjugate, PCV13 (Prevnar 13) 2021-01-05 00:00:[address] [facility] TDAP 2021-01-05 00:00:[address] [facility] Influenza Virus Vaccine Quad IM, Preserv and ABX Free 6 MO-64 YRS 2021-01-05 00:00:[address] [facility] Pneumococcal 13 Conjugate, PCV13 (Prevnar 13) 2021-01-05 00:00:[address] [facility] TDAP 2021-01-05 00:00:[address] [facility] Influenza Virus Vaccine Quad IM, Preserv and ABX Free 6 MO-64 YRS 2021-01-05 00:00:[address] [facility] Pneumococcal 13 Conjugate, PCV13 (Prevnar 13) 2021-01-05 00:00:[address] [facility] TDAP 2021-01-05 00:00:[address] [facility] Influenza Virus Vaccine Quad IM, Preserv and ABX Free 6 MO-64 YRS (FLUCELVAX) 2021-01-05 00:00:[address] [facility] Pneumococcal 13 Conjugate, PCV13 (Prevnar 13) 2021-01-05 00:00:00 Completed TDAP 2021-01-05 00:00:00 Completed Influenza Virus Vaccine Quad IM, Preserv and ABX Free 6 MO-64 YRS (FLUCELVAX) 2021-01-05 00:00:[address] [facility] Pneumococcal 13 Conjugate, PCV13 (Prevnar 13) 2021-01-05 00:00:00 Completed TDAP 2021-01-05 00:00:00 Completed SARS-COV-2 COVID-19 PFIZER VACCINE 2020-10-10 00:00:[address] [facility] SARS-COV-2 COVID-19 PFIZER VACCINE 2020-10-10 00:00:[address] [facility] SARS-COV-2 COVID-19 PFIZER VACCINE 2020-10-10 00:00:[address] [facility] SARS-COV-2 COVID-19 PFIZER VACCINE 2020-10-10 00:00:[address] [facility] SARS-COV-2 COVID-19 PFIZER VACCINE 2020-10-10 00:00:[address] [facility] SARS-COV-2 COVID-19 PFIZER VACCINE 2020-10-10 00:00:[address] [facility] SARS-COV-2 COVID-19 PFIZER VACCINE 2020-10-10 00:00:[address] [facility] SARS-COV-2 COVID-19 PFIZER VACCINE 2020-10-10 00:00:[address] [facility] SARS-COV-2 COVID-19 PFIZER VACCINE 2020-10-10 00:00:[address] [facility] SARS-COV-2 COVID-19 PFIZER VACCINE 2020-10-10 00:00:[address] [facility] SARS-COV-2 COVID-19 PFIZER VACCINE 2020-10-10 00:00:[address] [facility] SARS-COV-2 COVID-19 PFIZER VACCINE 2020-10-10 00:00:[address] [facility] SARS-COV-2 COVID-19 PFIZER VACCINE 2020-10-10 00:00:[address] [facility] SARS-COV-2 COVID-19 PFIZER VACCINE 2020-10-10 00:00:[address] [facility] SARS-COV-2 COVID-19 PFIZER VACCINE 2020-10-10 00:00:[address] [facility] SARS-COV-2 COVID-19 PFIZER VACCINE 2020-10-10 00:00:[address] [facility] SARS-COV-2 COVID-19 PFIZER VACCINE 2020-10-10 00:00:[address] [facility] SARS-COV-2 COVID-19 PFIZER VACCINE 2020-10-10 00:00:[address] [facility] SARS-COV-2 COVID-19 PFIZER VACCINE 2020-10-10 00:00:[address] [facility] SARS-COV-2 COVID-19 PFIZER VACCINE 2020-10-10 00:00:[address] [facility] SARS-COV-2 COVID-19 PFIZER VACCINE 2020-10-10 00:00:[address] [facility] SARS-COV-2 COVID-19 PFIZER VACCINE 2020-10-10 00:00:[address] [facility] SARS-COV-2 COVID-19 PFIZER VACCINE 2020-10-10 00:00:[address] [facility] SARS-COV-2 COVID-19 PFIZER VACCINE 2020-10-10 00:00:[address] [facility] SARS-COV-2 COVID-19 PFIZER VACCINE 2020-10-10 00:00:[address] [facility] SARS-COV-2 COVID-19 PFIZER VACCINE 2020-10-10 00:00:[address] [facility] SARS-COV-2 COVID-19 PFIZER VACCINE 2020-10-10 00:00:[address] [facility] SARS-COV-2 COVID-19 PFIZER VACCINE 2020-10-10 00:00:[address] [facility] SARS-COV-2 COVID-19 PFIZER VACCINE 2020-10-10 00:00:[address] [facility] SARS-COV-2 COVID-19 PFIZER VACCINE 2020-10-10 00:00:[address] [facility] SARS-COV-2 COVID-19 PFIZER VACCINE 2020-10-10 00:00:[address] [facility] SARS-COV-2 COVID-19 PFIZER VACCINE 2020-10-10 00:00:[address] [facility] SARS-COV-2 COVID-19 PFIZER VACCINE 2020-10-10 00:00:[address] [facility] SARS-COV-2 COVID-19 PFIZER VACCINE 2020-10-10 00:00:[address] [facility] SARS-COV-2 COVID-19 PFIZER VACCINE 2020-10-10 00:00:[address] [facility] SARS-COV-2 COVID-19 PFIZER VACCINE 2020-10-10 00:00:[address] [facility] SARS-COV-2 COVID-19 PFIZER VACCINE 2020-10-10 00:00:[address] [facility] SARS-COV-2 COVID-19 PFIZER VACCINE 2020-10-10 00:00:[address] [facility] SARS-COV-2 COVID-19 PFIZER VACCINE 2020-06-25 00:00:[address] [facility] SARS-COV-2 COVID-19 PFIZER VACCINE 2020-06-25 00:00:[address] [facility] SARS-COV-2 COVID-19 PFIZER VACCINE 2020-06-25 00:00:[address] [facility] SARS-COV-2 COVID-19 PFIZER VACCINE 2020-06-25 00:00:[address] [facility] SARS-COV-2 COVID-19 PFIZER VACCINE 2020-06-25 00:00:[address] [facility] SARS-COV-2 COVID-19 PFIZER VACCINE 2020-06-25 00:00:[address] [facility] SARS-COV-2 COVID-19 PFIZER VACCINE 2020-06-25 00:00:[address] [facility] SARS-COV-2 COVID-19 PFIZER VACCINE 2020-06-25 00:00:[address] [facility] SARS-COV-2 COVID-19 PFIZER VACCINE 2020-06-25 00:00:[address] [facility] SARS-COV-2 COVID-19 PFIZER VACCINE 2020-06-25 00:00:[address] [facility] SARS-COV-2 COVID-19 PFIZER VACCINE 2020-06-25 00:00:[address] [facility] SARS-COV-2 COVID-19 PFIZER VACCINE 2020-06-25 00:00:[address] [facility] SARS-COV-2 COVID-19 PFIZER VACCINE 2020-06-25 00:00:[address] [facility] SARS-COV-2 COVID-19 PFIZER VACCINE 2020-06-25 00:00:[address] [facility] SARS-COV-2 COVID-19 PFIZER VACCINE 2020-06-25 00:00:[address] [facility] SARS-COV-2 COVID-19 PFIZER VACCINE 2020-06-25 00:00:[address] [facility] SARS-COV-2 COVID-19 PFIZER VACCINE 2020-06-25 00:00:[address] [facility] SARS-COV-2 COVID-19 PFIZER VACCINE 2020-06-25 00:00:[address] [facility] SARS-COV-2 COVID-19 PFIZER VACCINE 2020-06-25 00:00:[address] [facility] SARS-COV-2 COVID-19 PFIZER VACCINE 2020-06-25 00:00:[address] [facility] SARS-COV-2 COVID-19 PFIZER VACCINE 2020-06-25 00:00:[address] [facility] SARS-COV-2 COVID-19 PFIZER VACCINE 2020-06-25 00:00:[address] [facility] SARS-COV-2 COVID-19 PFIZER VACCINE 2020-06-25 00:00:[address] [facility] SARS-COV-2 COVID-19 PFIZER VACCINE 2020-06-25 00:00:[address] [facility] SARS-COV-2 COVID-19 PFIZER VACCINE 2020-06-25 00:00:[address] [facility] SARS-COV-2 COVID-19 PFIZER VACCINE 2020-06-25 00:00:[address] [facility] SARS-COV-2 COVID-19 PFIZER VACCINE 2020-06-25 00:00:[address] [facility] SARS-COV-2 COVID-19 PFIZER VACCINE 2020-06-25 00:00:[address] [facility] SARS-COV-2 COVID-19 PFIZER VACCINE 2020-06-25 00:00:[address] [facility] SARS-COV-2 COVID-19 PFIZER VACCINE 2020-06-25 00:00:[address] [facility] SARS-COV-2 COVID-19 PFIZER VACCINE 2020-06-25 00:00:[address] [facility] SARS-COV-2 COVID-19 PFIZER VACCINE 2020-06-25 00:00:[address] [facility] SARS-COV-2 COVID-19 PFIZER VACCINE 2020-06-25 00:00:[address] [facility] SARS-COV-2 COVID-19 PFIZER VACCINE 2020-06-25 00:00:[address] [facility] SARS-COV-2 COVID-19 PFIZER VACCINE 2020-06-25 00:00:[address] [facility] SARS-COV-2 COVID-19 PFIZER VACCINE 2020-06-25 00:00:[address] [facility] SARS-COV-2 COVID-19 PFIZER VACCINE 2020-06-25 00:00:[address] [facility] SARS-COV-2 COVID-19 PFIZER VACCINE 2020-06-25 00:00:[address] [facility] SARS-COV-2 COVID-19 PFIZER VACCINE 2020-06-25 00:00:[address] [facility] SARS-COV-2 COVID-19 PFIZER VACCINE 2020-06-25 00:00:[address] [facility] SARS-COV-2 COVID-19 PFIZER VACCINE 2020-06-25 00:00:[address] [facility] SARS-COV-2 COVID-19 PFIZER VACCINE 2020-06-25 00:00:[address] [facility] SARS-COV-2 COVID-19 PFIZER VACCINE 2020-06-25 00:00:[address] [facility] SARS-COV-2 COVID-19 PFIZER VACCINE 2020-06-25 00:00:[address] [facility] SARS-COV-2 COVID-19 PFIZER VACCINE 2020-06-25 00:00:[address] [facility] SARS-COV-2 COVID-19 PFIZER VACCINE 2020-06-25 00:00:[address] [facility] SARS-COV-2 COVID-19 PFIZER VACCINE 2020-06-25 00:00:[address] [facility] SARS-COV-2 COVID-19 PFIZER VACCINE 2020-06-25 00:00:[address] [facility] SARS-COV-2 COVID-19 PFIZER VACCINE 2020-06-25 00:00:[address] [facility] SARS-COV-2 COVID-19 PFIZER VACCINE 2020-06-25 00:00:[address] [facility] SARS-COV-2 COVID-19 PFIZER VACCINE 2020-06-25 00:00:[address] [facility] SARS-COV-2 COVID-19 PFIZER VACCINE 2020-06-25 00:00:[address] [facility] SARS-COV-2 COVID-19 PFIZER VACCINE 2020-06-04 00:00:[address] [facility] SARS-COV-2 COVID-19 PFIZER VACCINE 2020-06-04 00:00:[address] [facility] SARS-COV-2 COVID-19 PFIZER VACCINE 2020-06-04 00:00:[address] [facility] SARS-COV-2 COVID-19 PFIZER VACCINE 2020-06-04 00:00:[address] [facility] SARS-COV-2 COVID-19 PFIZER VACCINE 2020-06-04 00:00:[address] [facility] SARS-COV-2 COVID-19 PFIZER VACCINE 2020-06-04 00:00:[address] [facility] SARS-COV-2 COVID-19 PFIZER VACCINE 2020-06-04 00:00:[address] [facility] SARS-COV-2 COVID-19 PFIZER VACCINE 2020-06-04 00:00:[address] [facility] SARS-COV-2 COVID-19 PFIZER VACCINE 2020-06-04 00:00:[address] [facility] SARS-COV-2 COVID-19 PFIZER VACCINE 2020-06-04 00:00:[address] [facility] SARS-COV-2 COVID-19 PFIZER VACCINE 2020-06-04 00:00:[address] [facility] SARS-COV-2 COVID-19 PFIZER VACCINE 2020-06-04 00:00:[address] [facility] SARS-COV-2 COVID-19 PFIZER VACCINE 2020-06-04 00:00:[address] [facility] SARS-COV-2 COVID-19 PFIZER VACCINE 2020-06-04 00:00:[address] [facility] SARS-COV-2 COVID-19 PFIZER VACCINE 2020-06-04 00:00:[address] [facility] SARS-COV-2 COVID-19 PFIZER VACCINE 2020-06-04 00:00:[address] [facility] SARS-COV-2 COVID-19 PFIZER VACCINE 2020-06-04 00:00:[address] [facility] SARS-COV-2 COVID-19 PFIZER VACCINE 2020-06-04 00:00:[address] [facility] SARS-COV-2 COVID-19 PFIZER VACCINE 2020-06-04 00:00:[address] [facility] SARS-COV-2 COVID-19 PFIZER VACCINE 2020-06-04 00:00:[address] [facility] SARS-COV-2 COVID-19 PFIZER VACCINE 2020-06-04 00:00:[address] [facility] SARS-COV-2 COVID-19 PFIZER VACCINE 2020-06-04 00:00:[address] [facility] SARS-COV-2 COVID-19 PFIZER VACCINE 2020-06-04 00:00:[address] [facility] SARS-COV-2 COVID-19 PFIZER VACCINE 2020-06-04 00:00:[address] [facility] SARS-COV-2 COVID-19 PFIZER VACCINE 2020-06-04 00:00:[address] [facility] SARS-COV-2 COVID-19 PFIZER VACCINE 2020-06-04 00:00:[address] [facility] SARS-COV-2 COVID-19 PFIZER VACCINE 2020-06-04 00:00:[address] [facility] SARS-COV-2 COVID-19 PFIZER VACCINE 2020-06-04 00:00:[address] [facility] SARS-COV-2 COVID-19 PFIZER VACCINE 2020-06-04 00:00:[address] [facility] SARS-COV-2 COVID-19 PFIZER VACCINE 2020-06-04 00:00:[address] [facility] SARS-COV-2 COVID-19 PFIZER VACCINE 2020-06-04 00:00:[address] [facility] SARS-COV-2 COVID-19 PFIZER VACCINE 2020-06-04 00:00:[address] [facility] SARS-COV-2 COVID-19 PFIZER VACCINE 2020-06-04 00:00:[address] [facility] SARS-COV-2 COVID-19 PFIZER VACCINE 2020-06-04 00:00:[address] [facility] SARS-COV-2 COVID-19 PFIZER VACCINE 2020-06-04 00:00:[address] [facility] SARS-COV-2 COVID-19 PFIZER VACCINE 2020-06-04 00:00:[address] [facility] SARS-COV-2 COVID-19 PFIZER VACCINE 2020-06-04 00:00:[address] [facility] SARS-COV-2 COVID-19 PFIZER VACCINE 2020-06-04 00:00:[address] [facility] SARS-COV-2 COVID-19 PFIZER VACCINE 2020-06-04 00:00:[address] [facility] SARS-COV-2 COVID-19 PFIZER VACCINE 2020-06-04 00:00:[address] [facility] SARS-COV-2 COVID-19 PFIZER VACCINE 2020-06-04 00:00:[address] [facility] SARS-COV-2 COVID-19 PFIZER VACCINE 2020-06-04 00:00:[address] [facility] SARS-COV-2 COVID-19 PFIZER VACCINE 2020-06-04 00:00:[address] [facility] SARS-COV-2 COVID-19 PFIZER VACCINE 2020-06-04 00:00:[address] [facility] SARS-COV-2 COVID-19 PFIZER VACCINE 2020-06-04 00:00:[address] [facility] SARS-COV-2 COVID-19 PFIZER VACCINE 2020-06-04 00:00:[address] [facility] SARS-COV-2 COVID-19 PFIZER VACCINE 2020-06-04 00:00:[address] [facility] SARS-COV-2 COVID-19 PFIZER VACCINE 2020-06-04 00:00:[address] [facility] SARS-COV-2 COVID-19 PFIZER VACCINE 2020-06-04 00:00:[address] [facility] SARS-COV-2 COVID-19 PFIZER VACCINE 2020-06-04 00:00:[address] [facility] SARS-COV-2 COVID-19 PFIZER VACCINE 2020-06-04 00:00:[address] [facility] SARS-COV-2 COVID-19 PFIZER VACCINE 2020-06-04 00:00:[address] [facility] Influenza Virus Vaccine Quad IM, Preserv and ABX Free 6 MO-64 YRS 2019-04-09 00:00:[address] [facility] Influenza Virus Vaccine Quad IM, Preserv and ABX Free 6 MO-64 YRS 2019-04-09 00:00:[address] [facility] Influenza Virus Vaccine Quad IM, Preserv and ABX Free 6 MO-64 YRS 2019-04-09 00:00:[address] [facility] Influenza Virus Vaccine Quad IM, Preserv and ABX Free 6 MO-64 YRS 2019-04-09 00:00:[address] [facility] Influenza Virus Vaccine Quad IM, Preserv and ABX Free 6 MO-64 YRS 2019-04-09 00:00:[address] [facility] Influenza Virus Vaccine Quad IM, Preserv and ABX Free 6 MO-64 YRS 2019-04-09 00:00:[address] [facility] Influenza Virus Vaccine Quad IM, Preserv and ABX Free 6 MO-64 YRS 2019-04-09 00:00:[address] [facility] Influenza Virus Vaccine Quad IM, Preserv and ABX Free 6 MO-64 YRS 2019-04-09 00:00:[address] [facility] Influenza Virus Vaccine Quad IM, Preserv and ABX Free 6 MO-64 YRS 2019-04-09 00:00:[address] [facility] Influenza Virus Vaccine Quad IM, Preserv and ABX Free 6 MO-64 YRS 2019-04-09 00:00:[address] [facility] Influenza Virus Vaccine Quad IM, Preserv and ABX Free 6 MO-64 YRS 2019-04-09 00:00:[address] [facility] Influenza Virus Vaccine Quad IM, Preserv and ABX Free 6 MO-64 YRS 2019-04-09 00:00:[address] [facility] Influenza Virus Vaccine Quad IM, Preserv and ABX Free 6 MO-64 YRS 2019-04-09 00:00:[address] [facility] Influenza Virus Vaccine Quad IM, Preserv and ABX Free 6 MO-64 YRS 2019-04-09 00:00:[address] [facility] Influenza Virus Vaccine Quad IM, Preserv and ABX Free 6 MO-64 YRS 2019-04-09 00:00:[address] [facility] Influenza Virus Vaccine Quad IM, Preserv and ABX Free 6 MO-64 YRS 2019-04-09 00:00:[address] [facility] Influenza Virus Vaccine Quad IM, Preserv and ABX Free 6 MO-64 YRS 2019-04-09 00:00:[address] [facility] Influenza Virus Vaccine Quad IM, Preserv and ABX Free 6 MO-64 YRS 2019-04-09 00:00:[address] [facility] Influenza Virus Vaccine Quad IM, Preserv and ABX Free 6 MO-64 YRS 2019-04-09 00:00:[address] [facility] Influenza Virus Vaccine Quad IM, Preserv and ABX Free 6 MO-64 YRS 2019-04-09 00:00:[address] [facility] Influenza Virus Vaccine Quad IM, Preserv and ABX Free 6 MO-64 YRS 2019-04-09 00:00:[address] [facility] Influenza Virus Vaccine Quad IM, Preserv and ABX Free 6 MO-64 YRS 2019-04-09 00:00:[address] [facility] Influenza Virus Vaccine Quad IM, Preserv and ABX Free 6 MO-64 YRS 2019-04-09 00:00:[address] [facility] Influenza Virus Vaccine Quad IM, Preserv and ABX Free 6 MO-64 YRS 2019-04-09 00:00:[address] [facility] Influenza Virus Vaccine Quad IM, Preserv and ABX Free 6 MO-64 YRS 2019-04-09 00:00:[address] [facility] Influenza Virus Vaccine Quad IM, Preserv and ABX Free 6 MO-64 YRS 2019-04-09 00:00:[address] [facility] Influenza Virus Vaccine Quad IM, Preserv and ABX Free 6 MO-64 YRS 2019-04-09 00:00:[address] [facility] Influenza Virus Vaccine Quad IM, Preserv and ABX Free 6 MO-64 YRS 2019-04-09 00:00:[address] [facility] Influenza Virus Vaccine Quad IM, Preserv and ABX Free 6 MO-64 YRS 2019-04-09 00:00:[address] [facility] Influenza Virus Vaccine Quad IM, Preserv and ABX Free 6 MO-64 YRS 2019-04-09 00:00:[address] [facility] Influenza Virus Vaccine Quad IM, Preserv and ABX Free 6 MO-64 YRS 2019-04-09 00:00:[address] [facility] Influenza Virus Vaccine Quad IM, Preserv and ABX Free 6 MO-64 YRS 2019-04-09 00:00:[address] [facility] Influenza Virus Vaccine Quad IM, Preserv and ABX Free 6 MO-64 YRS 2019-04-09 00:00:[address] [facility] Influenza Virus Vaccine Quad IM, Preserv and ABX Free 6 MO-64 YRS 2019-04-09 00:00:[address] [facility] Influenza Virus Vaccine Quad IM, Preserv and ABX Free 6 MO-64 YRS 2019-04-09 00:00:[address] [facility] Influenza Virus Vaccine Quad IM, Preserv and ABX Free 6 MO-64 YRS (FLUCELVAX) 2019-04-09 00:00:00 Completed Influenza Virus Vaccine Quad IM, Preserv and ABX Free 6 MO-64 YRS (FLUCELVAX) 2019-04-09 00:00:[address] [facility] Flucelvax - single dose syringe Flucelvax - single dose syringe 2019-04-09 00:00:00 Completed [facility] Influenza Virus Vaccine Quad .5 mL IM 6+ MO 2018-01-14 00:00:[address] [facility] Influenza Virus Vaccine 2018-01-14 00:00:[address] [facility] Influenza Virus Vaccine Quad .5 mL IM 6+ MO 2018-01-14 00:00:[address] [facility] Influenza Virus Vaccine 2018-01-14 00:00:[address] [facility] Influenza Virus Vaccine Quad .5 mL IM 6+ MO 2018-01-14 00:00:[address] [facility] Influenza Virus Vaccine 2018-01-14 00:00:[address] [facility] Influenza Virus Vaccine Quad .5 mL IM 6+ MO 2018-01-14 00:00:[address] [facility] Influenza Virus Vaccine 2018-01-14 00:00:[address] [facility] Influenza Virus Vaccine Quad .5 mL IM 6+ MO 2018-01-14 00:00:[address] [facility] Influenza Virus Vaccine 2018-01-14 00:00:[address] [facility] Influenza Virus Vaccine Quad .5 mL IM 6+ MO 2018-01-14 00:00:[address] [facility] Influenza Virus Vaccine 2018-01-14 00:00:[address] [facility] Influenza Virus Vaccine Quad .5 mL IM 6+ MO 2018-01-14 00:00:[address] [facility] Influenza Virus Vaccine 2018-01-14 00:00:[address] [facility] Influenza Virus Vaccine Quad .5 mL IM 6+ MO 2018-01-14 00:00:[address] [facility] Influenza Virus Vaccine 2018-01-14 00:00:[address] [facility] Influenza Virus Vaccine Quad .5 mL IM 6+ MO 2018-01-14 00:00:[address] [facility] Influenza Virus Vaccine 2018-01-14 00:00:[address] [facility] Influenza Virus Vaccine Quad .5 mL IM 6+ MO 2018-01-14 00:00:[address] [facility] Influenza Virus Vaccine 2018-01-14 00:00:[address] [facility] Influenza Virus Vaccine Quad .5 mL IM 6+ MO 2018-01-14 00:00:[address] [facility] Influenza Virus Vaccine 2018-01-14 00:00:[address] [facility] Influenza Virus Vaccine Quad .5 mL IM 6+ MO 2018-01-14 00:00:[address] [facility] Influenza Virus Vaccine 2018-01-14 00:00:[address] [facility] Influenza Virus Vaccine Quad .5 mL IM 6+ MO 2018-01-14 00:00:[address] [facility] Influenza Virus Vaccine 2018-01-14 00:00:[address] [facility] Influenza Virus Vaccine Quad .5 mL IM 6+ MO 2018-01-14 00:00:[address] [facility] Influenza Virus Vaccine 2018-01-14 00:00:[address] [facility] Influenza Virus Vaccine Quad .5 mL IM 6+ MO 2018-01-14 00:00:[address] [facility] Influenza Virus Vaccine 2018-01-14 00:00:[address] [facility] Influenza Virus Vaccine Quad .5 mL IM 6+ MO 2018-01-14 00:00:[address] [facility] Influenza Virus Vaccine 2018-01-14 00:00:[address] [facility] Influenza Virus Vaccine Quad .5 mL IM 6+ MO 2018-01-14 00:00:[address] [facility] Influenza Virus Vaccine 2018-01-14 00:00:[address] [facility] Influenza Virus Vaccine Quad .5 mL IM 6+ MO 2018-01-14 00:00:[address] [facility] Influenza Virus Vaccine 2018-01-14 00:00:[address] [facility] Influenza Virus Vaccine Quad .5 mL IM 6+ MO 2018-01-14 00:00:[address] [facility] Influenza Virus Vaccine 2018-01-14 00:00:[address] [facility] Influenza Virus Vaccine Quad .5 mL IM 6+ MO 2018-01-14 00:00:[address] [facility] Influenza Virus Vaccine 2018-01-14 00:00:[address] [facility] Influenza Virus Vaccine Quad .5 mL IM 6+ MO 2018-01-14 00:00:[address] [facility] Influenza Virus Vaccine 2018-01-14 00:00:[address] [facility] Influenza Virus Vaccine Quad .5 mL IM 6+ MO 2018-01-14 00:00:[address] [facility] Influenza Virus Vaccine 2018-01-14 00:00:[address] [facility] Influenza Virus Vaccine Quad .5 mL IM 6+ MO 2018-01-14 00:00:[address] [facility] Influenza Virus Vaccine 2018-01-14 00:00:[address] [facility] Influenza Virus Vaccine Quad .5 mL IM 6+ MO 2018-01-14 00:00:[address] [facility] Influenza Virus Vaccine 2018-01-14 00:00:[address] [facility] Influenza Virus Vaccine Quad .5 mL IM 6+ MO 2018-01-14 00:00:[address] [facility] Influenza Virus Vaccine 2018-01-14 00:00:[address] [facility] Influenza Virus Vaccine Quad .5 mL IM 6+ MO 2018-01-14 00:00:[address] [facility] Influenza Virus Vaccine 2018-01-14 00:00:[address] [facility] Influenza Virus Vaccine Quad .5 mL IM 6+ MO 2018-01-14 00:00:[address] [facility] Influenza Virus Vaccine 2018-01-14 00:00:[address] [facility] Influenza Virus Vaccine Quad .5 mL IM 6+ MO 2018-01-14 00:00:[address] [facility] Influenza Virus Vaccine 2018-01-14 00:00:[address] [facility] Influenza Virus Vaccine Quad .5 mL IM 6+ MO 2018-01-14 00:00:[address] [facility] Influenza Virus Vaccine 2018-01-14 00:00:[address] [facility] Influenza Virus Vaccine Quad .5 mL IM 6+ MO 2018-01-14 00:00:[address] [facility] Influenza Virus Vaccine 2018-01-14 00:00:[address] [facility] Influenza Virus Vaccine Quad .5 mL IM 6+ MO 2018-01-14 00:00:[address] [facility] Influenza Virus Vaccine 2018-01-14 00:00:[address] [facility] Influenza Virus Vaccine Quad .5 mL IM 6+ MO 2018-01-14 00:00:[address] [facility] Influenza Virus Vaccine 2018-01-14 00:00:[address] [facility] Influenza Virus Vaccine Quad .5 mL IM 6+ MO 2018-01-14 00:00:[address] [facility] Influenza Virus Vaccine 2018-01-14 00:00:[address] [facility] Influenza Virus Vaccine Quad .5 mL IM 6+ MO 2018-01-14 00:00:[address] [facility] Influenza Virus Vaccine 2018-01-14 00:00:[address] [facility] Influenza Virus Vaccine Quad .5 mL IM 6+ MO 2018-01-14 00:00:[address] [facility] Influenza Virus Vaccine 2018-01-14 00:00:[address] [facility] Influenza Virus Vaccine Quad .5 mL IM 6+ MO 2018-01-14 00:00:00 Completed [facility] Influenza Virus Vaccine 2018-01-14 00:00:[address] [facility] Influenza Virus Vaccine Quad .5 mL IM 6+ MO 2018-01-14 00:00:00 Completed [facility] Influenza Virus Vaccine 2018-01-14 00:00:[address] [facility] Influenza Virus Vaccine Quad .5 mL IM 6+ MO 2018-01-14 00:00:00 Completed [facility] Influenza Virus Vaccine 2018-01-14 00:00:[address] [facility] Influenza Virus Vaccine Quad .5 mL IM 6+ MO 2018-01-14 00:00:00 Completed [facility] Influenza Virus Vaccine 2018-01-14 00:00:[address] [facility] Influenza Virus Vaccine Quad .5 mL IM 6+ MO 2018-01-14 00:00:[address] [facility] Influenza Virus Vaccine 2018-01-14 00:00:[address] [facility] Influenza Virus Vaccine Quad .5 mL IM 6+ MO 2018-01-14 00:00:[address] [facility] Influenza Virus Vaccine 2018-01-14 00:00:[address] [facility] Influenza Virus Vaccine Quad .5 mL IM 6+ MO 2018-01-14 00:00:[address] [facility] Influenza Virus Vaccine 2018-01-14 00:00:[address] [facility] Influenza Virus Vaccine Quad .5 mL IM 6+ MO 2018-01-14 00:00:[address] [facility] Influenza Virus Vaccine 2018-01-14 00:00:[address] [facility] Influenza Virus Vaccine Quad .5 mL IM 6+ MO 2018-01-14 00:00:[address] [facility] Influenza Virus Vaccine 2018-01-14 00:00:[address] [facility] Influenza Virus Vaccine Quad .5 mL IM 6+ MO 2018-01-14 00:00:[address] [facility] Influenza Virus Vaccine 2018-01-14 00:00:[address] [facility] Influenza Virus Vaccine Quad .5 mL IM 6+ MO 2018-01-14 00:00:[address] [facility] Influenza Virus Vaccine 2018-01-14 00:00:[address] [facility] Influenza Virus Vaccine Quad .5 mL IM 6+ MO 2018-01-14 00:00:[address] [facility] Influenza Virus Vaccine 2018-01-14 00:00:[address] [facility] Influenza Virus Vaccine Quad .5 mL IM 6+ MO 2018-01-14 00:00:[address] [facility] Influenza Virus Vaccine 2018-01-14 00:00:[address] [facility] Influenza Virus Vaccine Quad .5 mL IM 6+ MO 2018-01-14 00:00:[address] [facility] Influenza Virus Vaccine 2018-01-14 00:00:[address] [facility] Influenza Virus Vaccine Quad .5 mL IM 6+ MO 2018-01-14 00:00:[address] [facility] Influenza Virus Vaccine 2018-01-14 00:00:[address] [facility] Influenza Virus Vaccine Quad .5 mL IM 6+ MO (FLUZONE/FLULAVAL/F LUARIX) 2018-01-14 00:00:[address] [facility] Influenza Virus Vaccine 2018-01-14 00:00:[address] [facility] Influenza Virus Vaccine Quad .5 mL IM 6+ MO (FLUZONE/FLULAVAL/F LUARIX) 2018-01-14 00:00:[address] [facility] Influenza Virus Vaccine 2018-01-14 00:00:[address] [facility] Influenza Virus Vaccine Quad .5 mL IM 6+ MO (FLUZONE/FLULAVAL/F LUARIX) Unknown Completed [facility] Influenza Virus Vaccine Unknown Completed [facility] SARS-COV-2 COVID-19 PFIZER VACCINE Unknown Completed [facility] Influenza Virus Vaccine Quad IM, Preserv and ABX Free 6 MO-64 YRS (FLUCELVAX) Unknown Completed [facility] Pneumococcal 13 Conjugate, PCV13 (Prevnar 13) Unknown Completed [facility] TDAP Unknown Completed [facility] Influenza Virus Vaccine Quad .5 mL IM 6+ MO (FLUZONE/FLULAVAL/F LUARIX) Unknown Completed [facility] Influenza Virus Vaccine Unknown Completed [facility] SARS-COV-2 COVID-19 PFIZER VACCINE Unknown Completed [facility] Influenza Virus Vaccine Quad IM, Preserv and ABX Free 6 MO-64 YRS (FLUCELVAX) Unknown Completed [facility] Pneumococcal 13 Conjugate, PCV13 (Prevnar 13) Unknown Completed [facility] TDAP Unknown Completed [facility] Influenza Virus Vaccine Quad .5 mL IM 6+ MO (FLUZONE/FLULAVAL/F LUARIX) Unknown Completed [facility] Influenza Virus Vaccine Unknown Completed [facility] SARS-COV-2 COVID-19 PFIZER VACCINE Unknown Completed [facility] Influenza Virus Vaccine Quad IM, Preserv and ABX Free 6 MO-64 YRS (FLUCELVAX) Unknown Completed [facility] Pneumococcal 13 Conjugate, PCV13 (Prevnar 13) Unknown Completed [facility] TDAP Unknown Completed [facility] Influenza Virus Vaccine Quad .5 mL IM 6+ MO (FLUZONE/FLULAVAL/F LUARIX) Unknown Completed [facility] Influenza Virus Vaccine Unknown Completed [facility] SARS-COV-2 COVID-19 PFIZER VACCINE Unknown Completed [facility] Influenza Virus Vaccine Quad IM, Preserv and ABX Free 6 MO-64 YRS (FLUCELVAX) Unknown Completed [facility] Pneumococcal 13 Conjugate, PCV13 (Prevnar 13) Unknown Completed [facility] TDAP Unknown Completed [facility] Influenza Virus Vaccine Quad .5 mL IM 6+ MO (FLUZONE/FLULAVAL/F LUARIX) Unknown Completed [facility] Influenza Virus Vaccine Unknown Completed [facility] SARS-COV-2 COVID-19 PFIZER VACCINE Unknown Completed [facility] Influenza Virus Vaccine Quad IM, Preserv and ABX Free 6 MO-64 YRS (FLUCELVAX) Unknown Completed [facility] Pneumococcal 13 Conjugate, PCV13 (Prevnar 13) Unknown Completed [facility] TDAP Unknown Completed [facility] Influenza Virus Vaccine Quad .5 mL IM 6+ MO (FLUZONE/FLULAVAL/F LUARIX) Unknown Completed [facility] Influenza Virus Vaccine Unknown Completed [facility] SARS-COV-2 COVID-19 PFIZER VACCINE Unknown Completed [facility] Influenza Virus Vaccine Quad IM, Preserv and ABX Free 6 MO-64 YRS (FLUCELVAX) Unknown Completed [facility] Pneumococcal 13 Conjugate, PCV13 (Prevnar 13) Unknown Completed [facility] TDAP Unknown Completed [facility] Influenza Virus Vaccine Quad .5 mL IM 6+ MO (FLUZONE/FLULAVAL/F LUARIX) Unknown Completed [facility] Influenza Virus Vaccine Unknown Completed [facility] SARS-COV-2 COVID-19 PFIZER VACCINE Unknown Completed [facility] Influenza Virus Vaccine Quad IM, Preserv and ABX Free 6 MO-64 YRS (FLUCELVAX) Unknown Completed [facility] Pneumococcal 13 Conjugate, PCV13 (Prevnar 13) Unknown Completed [facility] TDAP Unknown Completed [facility] Influenza Virus Vaccine Quad .5 mL IM 6+ MO (FLUZONE/FLULAVAL/F LUARIX) Unknown Completed [facility] Influenza Virus Vaccine Unknown Completed [facility] SARS-COV-2 COVID-19 PFIZER VACCINE Unknown Completed [facility] Influenza Virus Vaccine Quad IM, Preserv and ABX Free 6 MO-64 YRS (FLUCELVAX) Unknown Completed [facility] Pneumococcal 13 Conjugate, PCV13 (Prevnar 13) Unknown Completed [facility] TDAP Unknown Completed [facility] Influenza Virus Vaccine Quad .5 mL IM 6+ MO (FLUZONE/FLULAVAL/F LUARIX) Unknown Completed [facility] Influenza Virus Vaccine Unknown Completed [facility] SARS-COV-2 COVID-19 PFIZER VACCINE Unknown Completed [facility] Influenza Virus Vaccine Quad IM, Preserv and ABX Free 6 MO-64 YRS (FLUCELVAX) Unknown Completed [facility] Pneumococcal 13 Conjugate, PCV13 (Prevnar 13) Unknown Completed [facility] TDAP Unknown Completed [facility] Influenza Virus Vaccine Quad .5 mL IM 6+ MO (FLUZONE/FLULAVAL/F LUARIX) Unknown Completed [facility] Influenza Virus Vaccine Unknown Completed [facility] Pneumococcal 13 Conjugate, PCV13 (Prevnar 13) Unknown Completed [facility] TDAP Unknown Completed [facility] SARS-COV-2 COVID-19 PFIZER VACCINE Unknown Completed [facility] Influenza Virus Vaccine Quad IM, Preserv and ABX Free 6 MO-64 YRS (FLUCELVAX) Unknown Completed [facility] Influenza Virus Vaccine Quad .5 mL IM 6+ MO (FLUZONE/FLULAVAL/F LUARIX) Unknown Completed [facility] Influenza Virus Vaccine Unknown Completed [facility] SARS-COV-2 COVID-19 PFIZER VACCINE Unknown Completed [facility] Influenza Virus Vaccine Quad IM, Preserv and ABX Free 6 MO-64 YRS (FLUCELVAX) Unknown Completed [facility] Pneumococcal 13 Conjugate, PCV13 (Prevnar 13) Unknown Completed [facility] TDAP Unknown Completed [facility] Influenza Virus Vaccine Quad .5 mL IM 6+ MO (FLUZONE/FLULAVAL/F LUARIX) Unknown Completed [facility] Influenza Virus Vaccine Unknown Completed [facility] SARS-COV-2 COVID-19 PFIZER VACCINE Unknown Completed [facility] Influenza Virus Vaccine Quad IM, Preserv and ABX Free 6 MO-64 YRS (FLUCELVAX) Unknown Completed [facility] Pneumococcal 13 Conjugate, PCV13 (Prevnar 13) Unknown Completed [facility] TDAP Unknown Completed [facility] Influenza Virus Vaccine Quad .5 mL IM 6+ MO (FLUZONE/FLULAVAL/F LUARIX) Unknown Completed [facility] Influenza Virus Vaccine Unknown Completed [facility] SARS-COV-2 COVID-19 PFIZER VACCINE Unknown Completed [facility] Influenza Virus Vaccine Quad IM, Preserv and ABX Free 6 MO-64 YRS (FLUCELVAX) Unknown Completed [facility] Pneumococcal 13 Conjugate, PCV13 (Prevnar 13) Unknown Completed [facility] TDAP Unknown Completed [facility] Influenza Virus Vaccine Quad .5 mL IM 6+ MO (FLUZONE/FLULAVAL/F LUARIX) Unknown Completed [facility] Influenza Virus Vaccine Unknown Completed [facility] SARS-COV-2 COVID-19 PFIZER VACCINE Unknown Completed [facility] Influenza Virus Vaccine Quad IM, Preserv and ABX Free 6 MO-64 YRS (FLUCELVAX) Unknown Completed [facility] Pneumococcal 13 Conjugate, PCV13 (Prevnar 13) Unknown Completed [facility] TDAP Unknown Completed [facility] Influenza Virus Vaccine Quad .5 mL IM 6+ MO (FLUZONE/FLULAVAL/F LUARIX) Unknown Completed [facility] Influenza Virus Vaccine Unknown Completed [facility] Pneumococcal 13 Conjugate, PCV13 (Prevnar 13) Unknown Completed [facility] TDAP Unknown Completed [facility] SARS-COV-2 COVID-19 PFIZER VACCINE Unknown Completed [facility] Influenza Virus Vaccine Quad IM, Preserv and ABX Free 6 MO-64 YRS (FLUCELVAX) Unknown Completed [facility] Influenza Virus Vaccine Quad .5 mL IM 6+ MO (FLUZONE/FLULAVAL/F LUARIX) Unknown Completed [facility] Influenza Virus Vaccine Unknown Completed [facility] SARS-COV-2 COVID-19 PFIZER VACCINE Unknown Completed [facility] Influenza Virus Vaccine Quad IM, Preserv and ABX Free 6 MO-64 YRS (FLUCELVAX) Unknown Completed [facility] Pneumococcal 13 Conjugate, PCV13 (Prevnar 13) Unknown Completed [facility] TDAP Unknown Completed [facility] Influenza Virus Vaccine Quad .5 mL IM 6+ MO (FLUZONE/FLULAVAL/F LUARIX) Unknown Completed [facility] Influenza Virus Vaccine Unknown Completed [facility] Pneumococcal 13 Conjugate, PCV13 (Prevnar 13) Unknown Completed [facility] TDAP Unknown Completed [facility] SARS-COV-2 COVID-19 PFIZER VACCINE Unknown Completed [facility] Influenza Virus Vaccine Quad IM, Preserv and ABX Free 6 MO-64 YRS (FLUCELVAX) Unknown Completed [facility] Influenza Virus Vaccine Quad .5 mL IM 6+ MO (FLUZONE/FLULAVAL/F LUARIX) Unknown Completed [facility] Influenza Virus Vaccine Unknown Completed [facility] SARS-COV-2 COVID-19 PFIZER VACCINE Unknown Completed [facility] Influenza Virus Vaccine Quad IM, Preserv and ABX Free 6 MO-64 YRS (FLUCELVAX) Unknown Completed [facility] Pneumococcal 13 Conjugate, PCV13 (Prevnar 13) Unknown Completed [facility] TDAP Unknown Completed [facility] Influenza Virus Vaccine Quad .5 mL IM 6+ MO (FLUZONE/FLULAVAL/F LUARIX) Unknown Completed [facility] Influenza Virus Vaccine Unknown Completed [facility] SARS-COV-2 COVID-19 PFIZER VACCINE Unknown Completed [facility] Influenza Virus Vaccine Quad IM, Preserv and ABX Free 6 MO-64 YRS (FLUCELVAX) Unknown Completed [facility] Pneumococcal 13 Conjugate, PCV13 (Prevnar 13) Unknown Completed [facility] TDAP Unknown Completed [facility] Influenza Virus Vaccine Quad .5 mL IM 6+ MO (FLUZONE/FLULAVAL/F LUARIX) Unknown Completed [facility] Influenza Virus Vaccine Unknown Completed [facility] SARS-COV-2 COVID-19 PFIZER VACCINE Unknown Completed [facility] Influenza Virus Vaccine Quad IM, Preserv and ABX Free 6 MO-64 YRS (FLUCELVAX) Unknown Completed [facility] Pneumococcal 13 Conjugate, PCV13 (Prevnar 13) Unknown Completed [facility] TDAP Unknown Completed [facility] Influenza Virus Vaccine Quad .5 mL IM 6+ MO (FLUZONE/FLULAVAL/F LUARIX) Unknown Completed [facility] Influenza Virus Vaccine Unknown Completed [facility] SARS-COV-2 COVID-19 PFIZER VACCINE Unknown Completed [facility] Influenza Virus Vaccine Quad IM, Preserv and ABX Free 6 MO-64 YRS (FLUCELVAX) Unknown Completed [facility] Pneumococcal 13 Conjugate, PCV13 (Prevnar 13) Unknown Completed [facility] TDAP Unknown Completed [facility] Influenza Virus Vaccine Quad .5 mL IM 6+ MO (FLUZONE/FLULAVAL/F LUARIX) Unknown Completed [facility] Influenza Virus Vaccine Unknown Completed [facility] SARS-COV-2 COVID-19 PFIZER VACCINE Unknown Completed [facility] Influenza Virus Vaccine Quad IM, Preserv and ABX Free 6 MO-64 YRS (FLUCELVAX) Unknown Completed [facility] Pneumococcal 13 Conjugate, PCV13 (Prevnar 13) Unknown Completed [facility] TDAP Unknown Completed [facility] Vital Signs Vital Name Observation Time Observation Value Comments S ource Systolic blood pressure 2024-01-13 19:00:00 132 mm[Hg] [facility] Diastolic blood pressure 2024-01-13 19:00:00 88 mm[Hg] [facility] Heart rate 2024-01-13 19:00:00 87 /min [facility] Respiratory rate 2024-01-13 19:00:00 18 /min [facility] Body height 2024-01-13 19:00:00 165.1 cm [facility] Body weight 2024-01-13 19:00:00 100.699 kg [facility] BMI 2024-01-13 19:00:00 36.94 kg/m2 [facility] Oxygen saturation in Arterial blood by Pulse oximetry 2024-01-13 19:00:00 99 /min [facility] Systolic blood pressure 2023-12-05 18:57:00 117 mm[Hg] [facility] Diastolic blood pressure 2023-12-05 18:57:00 83 mm[Hg] [facility] Heart rate 2023-12-05 18:57:00 71 /min [facility] Respiratory rate 2023-12-05 18:57:00 16 /min [facility] Body height 2023-12-05 18:57:00 165.1 cm [facility] Body weight 2023-12-05 18:57:00 100.699 kg [facility] BMI 2023-12-05 18:57:00 36.94 kg[facility] 2023-10-11 16:21:00 120 mm[Hg] [facility] Diastolic blood pressure 2023-10-11 16:21:00 82 mm[Hg] [facility] Heart rate 2023-10-11 16:21:00 122 /min [facility] 2023-10-11 16:21:00 165.1 cm [facility] Body weight 2023-10-11 16:21:00 104.01 kg [facility] BMI 2023-10-11 16:21:00 38.16 kg/m2 [facility] Oxygen saturation in Arterial blood by Pulse oximetry 2023-10-11 16:21:00 90 /min [facility] Systolic blood pressure 2023-07-19 18:42:00 132 mm[Hg] [facility] Diastolic blood pressure 2023-07-19 18:42:00 85 mm[Hg] [facility] Heart rate 2023-07-19 18:42:00 76 /min [facility] Body weight 2023-07-19 18:42:00 112.038 kg [facility] BMI 2023-07-19 18:42:00 41.10 kg/m2 [facility] Oxygen saturation in Arterial blood by Pulse oximetry 2023-07-19 18:42:00 94 /min [facility] Systolic blood pressure 2023-06-25 14:26:00 143 mm[Hg] [facility] Diastolic blood pressure 2023-06-25 14:26:00 71 mm[Hg] [facility] Heart rate 2023-06-25 14:25:00 70 /min [facility] Body temperature 2023-06-25 14:25:[address] [facility] Body height 2023-06-25 14:25:[address] [facility] Body weight 2023-06-25 14:25:00 112.855 kg [facility] BMI 2023-06-25 14:25:00 41.40 kg/m2 [facility] Systolic blood pressure 2023-03-04 16:35:00 107 mm[Hg] [facility] Diastolic blood pressure 2023-03-04 16:35:00 72 mm[Hg] [facility] Heart rate 2023-03-04 16:35:00 69 /min [facility] Body height 2023-03-04 16:35:00 165.1 cm [facility] Body weight 2023-03-04 16:35:00 112.175 kg [facility] BMI 2023-03-04 16:35:00 41.15 kg/m2 [facility] Oxygen saturation in Arterial blood by Pulse oximetry 2023-03-04 16:35:00 94 /min [facility] Systolic blood pressure 2022-12-13 14:45:00 128 mm[Hg] [facility] Diastolic blood pressure 2022-12-13 14:45:00 80 mm[Hg] [facility] Heart rate 2022-12-13 14:37:00 84 /min [facility] Body height 2022-12-13 14:37:00 165.1 cm [facility] Body weight 2022-12-13 14:37:00 111.948 kg [facility] BMI 2022-12-13 14:37:00 41.07 kg/m2 [facility] Oxygen saturation in Arterial blood by Pulse oximetry 2022-12-13 14:37:00 99 /min [facility] Systolic blood pressure 2022-11-29 21:23:00 127 mm[Hg] [facility] Diastolic blood pressure 2022-11-29 21:23:00 84 mm[Hg] [facility] Heart rate 2022-11-29 21:23:00 69 /min [facility] Body temperature 2022-11-29 21:23:[address] [facility] Respiratory rate 2022-11-29 21:23:00 16 /min [facility] Body height 2022-11-29 21:23:00 165.1 cm [facility] Body weight 2022-11-29 21:23:00 112.038 kg [facility] BMI 2022-11-29 21:23:00 41.10 kg/m2 [facility] Oxygen saturation in Arterial blood by Pulse oximetry 2022-11-29 21:23:00 100 /min [facility] Systolic blood pressure 2022-09-17 08:00:00 125 mm[Hg] [facility] Diastolic blood pressure 2022-09-17 08:00:00 78 mm[Hg] [facility] Heart rate 2022-09-17 08:00:00 53 [facility] Respiratory rate 2022-09-17 08:00:00 20 /min [facility] Oxygen saturation in Arterial blood by Pulse oximetry 2022-09-17 08:00:00 98 /min [facility] Body temperature 2022-09-17 03:24:[address] [facility] Body height 2022-09-17 03:24:00 165.1 cm [facility] Body weight 2022-09-17 03:24:00 114.76 kg [facility] BMI 2022-09-17 03:24:00 42.10 kg/m2 [facility] Systolic blood pressure 2022-09-14 14:30:00 126 mm[Hg] [facility] Diastolic blood pressure 2022-09-14 14:30:00 71 mm[Hg] [facility] Heart rate 2022-09-14 14:30:00 68 /min [facility] Body temperature 2022-09-14 14:30:[address] [facility] Respiratory rate 2022-09-14 14:30:00 16 /min [facility] Body height 2022-09-14 14:30:00 165.1 cm [facility] Body weight 2022-09-14 14:30:00 114.896 kg [facility] BMI 2022-09-14 14:30:00 42.15 kg/m2 [facility] Oxygen saturation in Arterial blood by Pulse oximetry 2022-09-14 14:30:00 99 /min [facility] Systolic blood pressure 2022-09-04 20:33:00 119 mm[Hg] [facility] Diastolic blood pressure 2022-09-04 20:33:00 79 mm[Hg] [facility] Heart rate 2022-09-04 20:33:00 78 /min [facility] Respiratory rate 2022-09-04 20:33:00 18 /min [facility] Body height 2022-09-04 20:33:00 165.1 cm [facility] Body weight 2022-09-04 20:33:00 113.49 kg [facility] BMI 2022-09-04 20:33:00 41.64 kg/m2 [facility] Oxygen saturation in Arterial blood by Pulse oximetry 2022-09-04 20:33:00 97 /min [facility] Systolic blood pressure 2022-08-30 21:22:00 118 mm[Hg] [facility] Diastolic blood pressure 2022-08-30 21:22:00 78 mm[Hg] [facility] Heart rate 2022-08-30 21:22:00 84 /min [facility] Respiratory rate 2022-08-30 21:22:00 18 /min [facility] Body height 2022-08-30 21:22:00 165.1 cm [facility] Body weight 2022-08-30 21:22:00 113.399 kg [facility] BMI 2022-08-30 21:22:00 41.60 kg/m2 [facility] Systolic blood pressure 2022-08-20 16:05:00 116 mm[Hg] [facility] Diastolic blood pressure 2022-08-20 16:05:00 65 mm[Hg] [facility] Respiratory rate 2022-08-20 16:05:00 16 /min [facility] Oxygen saturation in Arterial blood by Pulse oximetry 2022-08-20 16:05:00 98 /min [facility] Heart rate 2022-08-20 15:25:00 63 /min [facility] Body temperature 2022-08-20 14:43:[address] [facility] Body height 2022-08-09 15:00:[address] [facility] Body weight 2022-08-09 15:00:00 108.863 kg [facility] BMI 2022-08-09 15:00:00 39.94 kg/m2 [facility] Systolic blood pressure 2022-08-20 15:00:00 114 mm[Hg] [facility] Diastolic blood pressure 2022-08-20 15:00:00 55 mm[Hg] [facility] Respiratory rate 2022-08-20 15:00:00 17 /min [facility] Oxygen saturation in Arterial blood by Pulse oximetry 2022-08-20 15:00:00 100 /min [facility] Heart rate 2022-08-20 14:43:00 70 /min [facility] Body temperature 2022-08-20 14:43:[address] [facility] Body height 2022-08-09 15:00:00 165.1 cm [facility] Body weight 2022-08-09 15:00:00 108.863 kg [facility] BMI 2022-08-09 15:00:00 39.94 kg/m2 [facility] Systolic blood pressure 2022-08-17 19:18:00 136 mm[Hg] [facility] Diastolic blood pressure 2022-08-17 19:18:00 78 mm[Hg] [facility] Heart rate 2022-08-17 19:18:00 86 /min [facility] Body height 2022-08-17 19:18:00 165.1 cm [facility] Body weight 2022-08-17 19:18:00 115.304 kg [facility] BMI 2022-08-17 19:18:00 42.30 kg/m2 [facility] Oxygen saturation in Arterial blood by Pulse oximetry 2022-08-17 19:18:00 98 /min [facility] Systolic blood pressure 2022-08-02 13:43:00 135 mm[Hg] [facility] Diastolic blood pressure 2022-08-02 13:43:00 85 mm[Hg] [facility] Heart rate 2022-08-02 13:43:00 72 /min [facility] Respiratory rate 2022-08-02 13:43:00 18 /min [facility] Body height 2022-08-02 13:43:00 152.4 cm [facility] Body weight 2022-08-02 13:43:00 111.585 kg [facility] BMI 2022-08-02 13:43:00 48.04 kg/m2 [facility] Systolic blood pressure 2022-07-29 03:00:00 129 mm[Hg] [facility] Diastolic blood pressure 2022-07-29 03:00:00 83 mm[Hg] [facility] Heart rate 2022-07-29 03:00:00 70 /min [facility] Respiratory rate 2022-07-29 03:00:00 16 /min [facility] Oxygen saturation in Arterial blood by Pulse oximetry 2022-07-29 03:00:00 98 /min [facility] Body temperature 2022-07-28 21:22:[address] [facility] Body height 2022-07-28 21:22:00 165.1 cm [facility] Body weight 2022-07-28 21:22:00 109.77 kg [facility] BMI 2022-07-28 21:22:00 40.27 kg/m2 [facility] Systolic blood pressure 2022-02-28 17:46:00 128 mm[Hg] [facility] Diastolic blood pressure 2022-02-28 17:46:00 28 mm[Hg] [facility] Heart rate 2022-02-28 17:46:00 93 /min [facility] Body height 2022-02-28 17:46:00 165.1 cm [facility] Body weight 2022-02-28 17:46:00 115.214 kg [facility] BMI 2022-02-28 17:46:00 42.27 kg/m2 [facility] Systolic blood pressure 2021-11-27 15:19:00 139 mm[Hg] [facility] Diastolic blood pressure 2021-11-27 15:19:00 76 mm[Hg] [facility] Heart rate 2021-11-27 15:19:00 83 /[facility] Body height 2021-11-27 15:19:00 165.1 cm [facility] Body weight 2021-11-27 15:19:00 120.385 kg [facility] BMI 2021-11-27 15:19:00 44.16 kg/m2 [facility] Oxygen saturation in Arterial blood by Pulse oximetry 2021-11-27 15:19:00 99 /min [facility] Systolic blood pressure 2021-08-25 21:45:00 124 mm[Hg] [facility] Diastolic blood pressure 2021-08-25 21:45:00 79 mm[Hg] [facility] Heart rate 2021-08-25 21:45:00 75 /min [facility] Body temperature 2021-08-25 21:45:[address] [facility] Respiratory rate 2021-08-25 21:45:00 18 /min [facility] Body height 2021-08-25 21:45:00 165.1 cm [facility] Body weight 2021-08-25 21:45:00 123.378 kg [facility] BMI 2021-08-25 21:45:00 45.26 kg/m2 [facility] Procedures Procedure Date / Time Performed Performing Clinician Source AUTHORIZATION TO RELEASE PHI TO [facility] 2023-03-04 06:01:00 Doctor Unassigned, [facility]itzer [facility] POCT URINALYSIS W/O SPECIFIC GRAVITY 2022-11-29 00:00:00 Brooklyn Hartman [facility] CT PELVIS WO CONTRAST 2022-09-17 07:57:[address] [facility] CT ABDOMEN PELVIS W CONTRAST 2022-09-17 05:10:[address] [facility] CT CHEST PULMONARY ANGIOGRAM 2022-09-17 05:10:[address] [facility] POCT TEST 2022-09-17 04:46:[address] [facility] MAGNESIUM 2022-09-17 04:20:00 Tejal Sullivan [facility] COMP. METABOLIC PANEL ([id number]) 2022-09-17 04:20:[address] [facility] CBC WITH DIFF 2022-09-17 04:20:00 Tejal Sullivan [facility] URINALYSIS 2022-09-17 04:20:00 Tejal Sullivan [facility] NOTICE OF PRIVACY PRACTICES 2022-09-17 03:07:57 Doctor Unassigned, [facility]itzer [facility] CONSENT/REFUSAL FOR DIAGNOSIS AND TREATMENT 2022-09-17 03:05:33 Doctor Unassigned, [place]itzer [facility] COMP. METABOLIC PANEL ([id number]) 2022-09-04 21:30:[address] [facility] CBC WITH DIFF 2022-09-04 21:30[facility]00 [facility] 2022-08-20 12:22:[address] [facility] POCT TEST 2022-08-20 12:22:[address] [facility] LAPAROSCOPIC OOPHORECTOMY 2022-08-20 12:15:00 Devan [facility] LAPAROSCOPIC SALPINGECTOMY 2022-08-20 12:15:00 Mary Hartmansol [facility] DAY SURGERY - ADC 2022-08-20 05:01:00 Doctor Beatriz ssigned, [facility]itzer [facility] EXTERNAL PROVIDER RECORDS 2022-08-03 05:01:00 Doctor Unassigned, [facility] DSU PRE-OP 2022-08-02 05:01:00 Doctor Unass igned, [facility]itzer [facility] DSU PRE-OP 2022-08-02 05:01:00 Doctor Unass igned, Switzer [facility] US OVARY TORSION 2022-07-29 01:30:00 [place] [facility] CONTRAST 2022-07-28 23:04:[address] [facility] COMP. METABOLIC PANEL ([id number]) 2022-07-28 22:20:[address] [facility] CBC WITH DIFF 2022-07-28 22:20:00 Moo Park [facility] URINALYSIS 2022-07-28 22:20:00 Moo Park [facility] CONSENT/REFUSAL FOR DIAGNOSIS AND TREATMENT 2022-07-28 21:14:36 Doctor Unassigned, Switzer [facility] POCT HEMOGLOBIN A1C TEST 2022-02-28 17:58:[address] [facility] Encounters Start Date/Time End Date/Time Encounter Type Admission Type Attending [facility] Care Facility Care Department Encounter ID Source 2021-03-22 12:08:59 Outpatient Cinda Briceno [facility] [id number] [facility] 2021-03-22 12:08:27 Outpatient Cinda Briceno [facility] [id number] [facility] 2021-03-22 11:07:35 Outpatient Cinda Briceno [facility] [id number] [facility] 2019-05-15 00:00:00 2024-06-18 22:00:16 Refill Fiona Felix [facility] 1.2.840.114 350.1.13.10 4.2.7.2.686 [id number] [facility] 2023-06-11 00:00:00 2024-06-18 21:04:33 Faye Liu [facility] HESHAM?M[facility]I ASENCIO [facility] 1.2840.114 350.1.13.10 4.2.7.2.686 [id number] [facility] 2024-06-09 14:06:02 2024-06-09 14:06:02 Outpatient [facility] [id number] Roscoe Finch 2024-03-12 14:07:05 2024-03-12 14:07:05 Outpatient [facility] [id number] Roscoe Finch 2024-03-06 00:00:00 2024-03-06 12:57:04 Faye Liu [facility] HESHAM?MAMI [facility] MED[facility] OFFICE BUILDING 1.2840.114 350.1.13.10 4.2.7.2.686 [id number] [facility] 2024-01-14 00:00:00 2024-02-15 18:16:27 Patient Secure Msg [facility] 1.840.114 350.1.13.10 4.2.7.2.686 [id number] [facility] 2024-01-15 00:00:00 2024-02-15 18:15:31 Patient Secure Msg Percy Andrade [facility] HESHAM?[facility] MED[facility] OFF[facility] BUILD[facility] 1.2840.114 350.1.13.10 4.2.7.2.686 [id number] [facility] 2024-01-14 11:45:00 2024-01-14 12:00:00 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, Percy Peterson, Avila Silver [facility] 1.2840.114 350.1.13.10 4.2.7.2.686 [id number] [facility] 2024-01-14 11:45:00 2024-01-14 11:45:00 Outpatient R MARICRUZ PECRY [facility] [id number] [facility] 2024-01-13 13:00:00 2024-01-13 13:30:00 Office Visit Percy Andrade [facility] SELINA DAHL?[facility]AMI LYONS [facility] 1.84.114 350.1.13.10 4.2.7.2.686 [id number] [facility] 2024-01-13 13:00:00 2024-01-13 13:00:00 Outpatient R MARICRUZ PERCY [facility] [id number] [facility] 2023-12-23 00:00:00 2023-12-23 00:00:00 Outpatient R FREDRICK-CARLYLE S, [place] [facility], [place] [facility] [id number] [facility] 2023-12-19 14:04:45 2023-12-19 14:04:45 Outpatient SFA [facility] [id number] Ros[address] Finch 2023-12-13 00:00:00 2023-12-13 00:00:00 Outpatient R ALCALA-CARLYLE S, [place] [facility], [place] [facility] [id number] [facility] 2023-12-06 00:00:00 2023-12-06 16:39:17 Telephone Ross lafaro Count includes the [facility] PRIMARY AND SPECIALTY CARE 1..114 350.1.13.10 4.2.7.2.686 [id number] [facility] 2023-12-06 00:00:00 2023-12-06 16:14:49 Case Management Fredrick-Carlyle alfaro Count includes the [facility] PRIMARY [facility] SPECIALTY [facility] 1..114 350.1.13.10 4.2.7.2.686 [id number] [facility] 2023-12-06 12:00:00 2023-12-06 12:15:00 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, Marco Luke Lab, Avila Silver [facility]?HAILEYSerena [facility] MEDICAL OFFICE BUILDING 1.2.840.114 350.1.13.10 4.2.7.2.686 [id number] [facility] 2023-12-06 12:00:00 2023-12-06 12:00:00 Outpatient MARCO CHRISTINE [facility] [id number] [facility] 2023-12-05 15:30:00 2023-12-05 15:30:00 Outpatient R NIKI TRACYL FREDRICK-MARY CAMPBELLSOL [facility] [id number] [facility] 2023-12-05 13:45:00 2023-12-05 14:13:51 Outpatient R ROSS Alfaro, [place] FREDRICK-CARLYLE Alfaro [facility] [id number] [facility] 2023-12-05 13:45:00 2023-12-05 14:13:51 [facility] 1..840.114 350.1.13.10 4.2.7.2.686 [id number] [facility] 2023-11-24 00:00:00 2023-11-25 10:26:59 RefEmily Ravi [facility]?HAILEYSerena FLORENCIO [facility] 1.2.840.114 350.1.13.10 4.2.7.2.686 [id number] [facility] 2023-11-22 11:00:00 2023-11-22 11:00:00 Outpatient FAYE ARMAS [facility] [id number] [facility] 2023-11-12 00:00:00 2023-11-12 15:52:44 [facility] 1.2.840.114 350.1.13.10 4.2.7.2.686 [id number] [facility] 2023-11-08 13:00:00 2023-11-08 13:00:00 Outpatient R [facility] [id number] [facility] 2023-10-11 12:00:00 2023-10-11 12:15:00 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, Ang - Db Emily Gil Lab, Ang - Db [facility] HESHAM?[facility]I LYONS [facility] 1.2.840.114 350.1.13.10 4.2.7.2.686 [id number] [facility] 2023-10-11 11:30:00 2023-10-11 11:56:19 Outpatient R EMILY GIL [facility] [id number] [facility] 2023-10-11 11:30:00 2023-10-11 11:56:19 Office Visit [facility] 1.2.840.114 350.1.13.10 4.2.7.2.686 [id number] [facility] 2023-10-08 13:30:00 2023-10-08 13:30:00 Outpatient R KRISSY DE DIOS [facility] [id number] [facility] 2023-10-01 00:00:00 2023-10-02 08:53:30 Faye Liu [facility] 1.2.840.114 350.1.13.10 4.2.7.2.686 [id number] [facility] 2023-10-01 14:00:00 2023-10-01 14:00:00 Outpatient R DIONNE JAVIER [facility] [id number] [facility] 2023-09-24 14:37:29 2023-09-24 14:37:29 Outpatient [facility] [id number] Finch 2023-09-06 10:00:00 2023-09-06 10:00:00 Outpatient R CIRASerenaYOVANYEMILY Durbin [facility] [id number] [facility] 2023-09-03 14:30:00 2023-09-03 14:30:00 Outpatient R DIONNE JAVIER [facility] [id number] [facility] 2023-09-02 14:00:00 2023-09-02 14:00:00 Outpatient R PERCY ANDRADE [facility] [id number] [facility] 2023-08-19 09:15:00 2023-08-19 09:15:00 Outpatient R JOSE FRANCISCO BETH [facility] [id number] [facility] 2023-08-16 11:29:12 2023-08-16 11:29:12 Outpatient [facility] 21 Roscoe Finch 2023-08-13 14:30:00 2023-08-13 14:30:00 Outpatient R FAYE NAPOLES [facility] [id number] [facility] 2023-07-01 00:00:00 2023-08-03 18:26:28 Patient Secure Msg Doctor Unassigned, Switzer [facility] NAL BUILDING 1.2.840.114 350.1.13.10 4.2.7.2.686 [id number] [facility] 2023-07-19 14:00:00 2023-07-19 14:14:39 Outpatient R DIONNE JAVIER [facility] [id number] [facility] 2023-07-19 14:00:00 2023-07-19 14:14:39 Office Visit Dionne Javier [facility] HESHAM?[facility]I LYONS [facility] 1.2.840.114 350.1.13.10 4.2.7.2.686 [id number] [facility] 2023-07-18 11:17:37 2023-07-18 11:17:37 Outpatient SFA SFA 05 Roscoe Finch 2023-07-18 11:15:00 2023-07-18 11:15:00 Outpatient R MAMTA LEMUS [facility] [id number] [facility] 2023-06-29 00:00:00 2023-06-29 00:00:00 [facility] 1.2.840.114 350.1.13.10 4.2.7.2.686 [id number] [facility] 2023-06-25 16:30:00 2023-06-25 16:30:00 Outpatient R KRISSY DE DIOS [facility] [id number] [facility] 2023-06-25 09:00:00 2023-06-25 09:49:51 Outpatient R KRISSY DE DIOS [facility] [id number] [facility] 2023-06-25 09:00:00 2023-06-25 09:49:51 Office Visit [facility] 1.2.840.114 350.1.13.10 4.2.7.2.686 [id number] [facility] 2023-06-22 00:00:00 2023-06-22 00:00:00 [facility]HAILEYSerena [facility]FL[facility]ENC[facility] 1.2.840.114 350.1.13.10 4.2.7.2.686 [id number] [facility] 2023-06-11 09:20:00 2023-06-11 09:20:00 Outpatient R KEITH MONTESINOS [facility] [id number] [facility] 2023-06-10 14:06:34 2023-06-10 14:06:34 Outpatient [facility] [id number] Roscoe Finch 2023-06-07 10:30:00 2023-06-07 10:30:00 Outpatient R FAYE NAPOLES [facility] [id number] [facility] 2023-05-26 00:00:00 2023-05-26 00:00:00 [facility]egan [facility] MED[facility] OFF[facility] BUILD[facility] 1..840.114 350.1.13.10 4.2.7.2.686 [id number] [facility] 2023-03-07 13:30:00 2023-03-07 13:30:00 Outpatient R FAYE NAPOLES [facility] [id number] [facility] 2023-03-04 10:30:00 2023-03-04 11:00:00 Office Visit Percy Andrade [facility] MEDICAL OFFICE BUILDING 1..840.114 350.1.13.10 4.2.7.2.686 [id number] [facility] 2023-03-04 10:30:00 2023-03-04 10:30:00 Outpatient R PERCY ANDRADE [facility] [id number] [facility] 2023-03-04 00:00:00 2023-03-04 00:00:00 Orders Only Doctor Unassigned, Switzer [facility] 1.840.114 350.1.13.10 4.2.7.2.686 [id number] [facility] 2023-03-02 00:00:00 2023-03-02 00:00:00 [facility] MED[facility] OFF[facility] BUILD[facility] 1..840.114 350.1.13.10 4.2.7.2.686 [id number] [facility] 2023-02-04 14:00:00 2023-02-04 14:00:00 Outpatient R LANIE LOPEZ YU [facility] [id number] [facility] 2023-01-26 00:00:00 2023-01-26 00:00:00 [facility] MEDICAL OFFICE BUILDING 1.2.840.114 350.1.13.10 4.2.7.2.686 [id number] [facility] 2023-01-07 10:40:00 2023-01-07 10:40:00 Outpatient R KEY, KIZZY KIZZY MACKEY [facility] [id number] [facility] 2022-12-13 09:30:00 2022-12-13 10:16:50 [facility] [id number] [facility] 2022-12-13 09:30:00 2022-12-13 10:16:50 [facility] MED[facility] OFFICE BUILDING 1.2.840.114 350.1.13.10 4.2.7.2.686 [id number] [facility] 2022-12-10 16:30:00 2022-12-10 16:30:00 Outpatient R LANIE LOPEZ YU [facility] [id number] [facility] 2022-11-30 13:00:00 2022-11-30 13:17:44 Outpatient R [place]CAR[place] S, [place] [facility], [facility] [id number] [facility] 2022-11-30 13:00:00 2022-11-30 13:17:44 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, Avila [facility] s, [facility] 1.2.840.114 350.1.13.10 4.2.7.2.686 [id number] [facility] 2022-11-30 00:00:00 2022-11-30 00:00:00 [facility] MEDICAL OFFICE BUILDING 1.2.840.114 350.1.13.10 4.2.7.2.686 [id number] [facility] 2022-11-29 16:30:00 2022-11-29 16:41:13 Outpatient R AL[place]CARLYLE S, [place] S, [place] [facility] [id number] [facility] 2022-11-29 16:30:00 2022-11-29 16:41:13 Office Visit [place] s [place] [facility] 1..840.114 350.1.13.10 4.2.7.2.686 [id number] [facility] 2022-11-09 16:30:00 2022-11-09 16:30:00 Outpatient R [place]CARLYLE S, [place], [place] [facility] [id number] [facility] 2022-10-22 00:00:00 2022-10-22 00:00:00 [facility] MEDICAL OFFICE BUILDING 1..840.114 350.1.13.10 4.2.7.2.686 [id number] [facility] 2022-10-18 00:00:00 2022-10-18 00:00:00 Refill Lanie Lopez [facility] HESHAM?[facility] MEDICAL OFFICE BUILDING 1..840.114 350.1.13.10 4.2.7.2.686 [id number] [facility] 2022-10-15 00:00:00 2022-10-15 00:00:00 [facility] H[facility]AM?M[facility]I LYONS [facility] 1..840.114 350.1.13.10 4.2.7.2.686 [id number] [facility] 2022-10-12 15:30:00 2022-10-12 15:30:00 Outpatient R [place] S, [place], [place] [facility] [id number] [facility] 2022-10-11 14:22:33 2022-10-11 23:59:00 [facility] [id number] [facility] 2022-10-11 14:22:33 2022-10-11 23:59:00 Hospital Encounter Faye Napoles [facility] 1.840.114 350.1.13.10 4.2.7.2.686 [id number] [facility] 2022-09-24 13:00:00 2022-09-24 13:00:00 Outpatient R [place]CAR[place] S, [place], [place] [facility] [id number] [facility] 2022-09-20 00:00:00 2022-09-20 00:00:[address] [facility] 1.840.114 350.1.13.10 4.2.7.2.686 [id number] [facility] 2022-09-19 00:00:00 2022-09-19 00:00:00 Telephone Lanie Lopez [facility] HESHAM?M[facility]I LYONS [facility] 1..840.114 350.1.13.10 4.2.7.2.686 [id number] [facility] 2022-09-19 00:00:00 2022-09-19 00:00:00 Patient Secure Msg [place], [facility] 1.840.114 350.1.13.10 4.2.7.2.686 [id number] [facility] 2022-09-18 11:40:00 2022-09-18 11:40:00 Outpatient R [place]CARLYLE S, [place] L[place] S, [place] [facility] [id number] [facility] 2022-09-18 00:00:00 2022-09-18 00:00:00 Telephone [place], [place] [facility] 1.84.114 350.1.13.10 4.2.7.2.686 [id number] [facility] 2022-09-16 22:33:00 2022-09-17 03:30:00 Emergency X TEJAL SULLIVAN [facility] [id number] [facility] 2022-09-16 22:33:00 2022-09-17 03:30:00 Emergency Tejal Sullivan [facility] 1.840.114 350.1.13.10 4.2.7.2.686 [id number] [facility] 2022-09-14 09:00:00 2022-09-14 09:53:56 Outpatient R [place] S, [place], [place] [facility] [id number] [facility] 2022-09-14 09:00:00 2022-09-14 09:53:56 Office Visit [place], [place] [facility] 1.840.114 350.1.13.10 4.2.7.2.686 [id number] [facility] 2022-09-14 08:00:00 2022-09-14 08:00:00 Outpatient R [place]CARLYLE S, [place], [place] [facility] [id number] [facility] 2022-09-07 00:00:00 2022-09-07 00:00:00 [facility] 1.2.840.114 350.1.13.10 4.2.7.2.686 [id number] [facility] 2022-09-06 00:00:00 2022-09-06 00:00:00 Refill Shasha Bowenen Darci [facility] 1.2.840.114 350.1.13.10 4.2.7.2.686 [id number] [facility] 2022-09-06 00:00:00 2022-09-06 00:00:00 Patient Secure Msg Doctor Unassigned, Switzer [facility] 1.840.114 350.1.13.10 4.2.7.2.686 [id number] [facility] 2022-09-04 16:15:00 2022-09-04 16:33:18 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, [facility] 1..840.114 350.1.13.10 4.2.7.2.686 [id number] [facility] 2022-09-04 15:00:00 2022-09-04 16:21:35 Outpatient R FAYE NAPOLES [facility] [id number] [facility] 2022-09-04 15:00:00 2022-09-04 16:21:35 [facility] 1.2.840.114 350.1.13.10 4.2.7.2.686 [id number] [facility] 2022-09-04 00:00:2022-09-04 00:00:00 Refill Faye Napoles [facility] 1.2.840.114 350.1.13.10 4.2.7.2.686 [id number] [facility] 2022-08-30 16:30:00 2022-08-30 16:49:20 Outpatient R ALCALA[place]CARLYLE S, [place] S, [place] [facility] [id number] [facility] 2022-08-30 16:30:00 2022-08-30 16:49:20 Office Visit Fredrick-Carlyle sMaryBrooklyn [facility] 1.2.840.114 350.1.13.10 4.2.7.2.686 [id number] [facility] 2022-08-25 00:00:00 2022-08-25 00:00:00 Refill Lanie Lopez [facility] 1..840.114 350.1.13.10 4.2.7.2.686 [id number] [facility] 2022-08-22 00:00:00 2022-08-22 00:00:[address] Tele[address]-Carlyle [facility] [place] 1.2.840.114 350.1.13.10 4.2.7.2.686 [id number] 134 [id number] [facility] 2022-08-20 06:45:00 2022-08-20 11:22:00 Outpatient R ALCALA[place]CARLYLE S, [place] AL[place]CARLYLE S, [place] 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 INSPECTOR [id number] [facility] 2022-08-20 06:45:00 2022-08-20 11:22:00 Hospital Encounter Alcala-Carlyle s, [place] [facility] 1.2.840.114 350.1.13.10 4.2.7.2.686 [id number] [facility] 2022-08-20 07:15:00 2022-08-20 10:03:00 [facility] 1.2.840.114 350.1.13.10 4.2.7.2.686 [id number] [facility] 2022-08-20 00:00:00 2022-08-20 00:00:00 Orders Only Doctor Unassigned, Switzer [facility] 1.2840.114 350.1.13.10 4.2.7.2.686 [id number] [facility] 2022-08-20 00:00:00 2022-08-20 00:00:00 Telephone Mary Tracysol [facility] PROFESSIO NAL BUILDING 1.2840.114 350.1.13.10 4.2.7.2.686 [id number] 134 [id number] [facility] 2022-08-17 14:00:00 2022-08-17 14:52:48 Outpatient R EMILY GIL [facility] [id number] [facility] 2022-08-17 14:00:00 2022-08-17 14:52:48 Office Visit Emily Gil [facility]?HAILEYSerena [facility] MED[facility] OFF[facility] 1.2840.114 350.1.13.10 4.2.7.2.686 [id number] 220 [id number] [facility] 2022-08-17 00:00:00 2022-08-17 00:00:00 Telephone [place] Tracy [facility] 1.2840.114 350.1.13.10 4.2.7.2.686 [id number] [facility] 2022-08-15 15:00:00 2022-08-15 16:00:22 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, Avila Gayle [facility] MEDICAL OFFICE BUILDING 1.284.114 350.1.13.10 4.2.7.2.686 [id number] [facility] 2022-08-15 15:00:00 2022-08-15 15:00:00 Outpatient R MARCO GAYLE [facility] [id number] [facility] 2022-08-15 00:00:00 2022-08-15 00:00:00 Telephone [facility] MEDICAL OFFICE BUILDING 1.84.114 350.1.13.10 4.2.7.2.686 [id number] 220 [id number] [facility] 2022-08-07 00:00:00 2022-08-07 00:00:00 Telephone Lanie Lopez [facility] MEDICAL OFFICE BUILDING 1.84.114 350.1.13.10 4.2.7.2.686 [id number] 220 [id number] [facility] 2022-08-03 00:00:00 2022-08-03 00:00:00 Orders Only Doctor Unassigned, Switzer [facility] 1.840.114 350.1.13.10 4.2.7.2.686 [id number] [facility] 2022-08-02 08:30:00 2022-08-02 09:17:20 Outpatient R [place] TRACY MARISOL [facility] [id number] [facility] 2022-08-02 08:30:00 2022-08-02 09:17:20 Office Visit [place] Tracy [facility] 1.84.114 350.1.13.10 4.2.7.2.686 [id number] 134 [id number] [facility] 2022-08-02 00:00:00 2022-08-02 00:00:00 Prep For Surgery FredrickJoeyBrooklyn colbert [facility] 1.0.114 350.1.13.10 4.2.7.2.686 [id number] 134 [id number] [facility] 2022-07-30 00:00:00 2022-07-30 00:00:00 Patient Secure Msg Doctor Unassigned, Switzer [facility] 1..114 350.1.13.10 4.2.7.2.686 [id number] 220 [id number] [facility] 2022-07-28 16:25:00 2022-07-28 22:46:00 Emergency X [place] [facility] ERT [id number] [facility] 2022-07-28 16:25:00 2022-07-28 22:46:00 Emergency [place] [facility] 1..114 350.1.13.10 4.2.7.2.686 [id number] [facility] 2022-07-27 14:30:00 2022-07-27 14:30:00 Outpatient R EMILY GIL [facility] [id number] [facility] 2022-07-25 00:00:00 2022-07-25 00:00:00 Refill [facility]?HAILEYSerena [facility] MEDICAL OFFICE BUILDING 1.0.114 350.1.13.10 4.2.7.2.686 [id number] 220 [id number] [facility] 2022-07-25 00:00:00 2022-07-25 00:00:00 Refill [facility] MEDICAL OFFICE BUILDING 1.840.114 350.1.13.10 4.2.7.2.686 [id number] 220 [id number] [facility] 2022-07-20 00:00:00 2022-07-20 00:00:00 Refill [facility]?MAIM [facility] MEDICAL OFFICE BUILDING 1.84.114 350.1.13.10 4.2.7.2.686 [id number] 220 [id number] [facility] 2022-07-02 13:30:00 2022-07-02 13:30:00 Outpatient R LANIE LOPEZ [facility] [id number] [facility] 2022-05-21 00:00:00 2022-05-21 00:00:00 Case Management Pearl Echeverria GRAY JULIABAKARI 1.840.114 350.1.13.10 4.2.7.2.686 [id number] [facility] 2022-05-21 00:00:00 2022-05-21 00:00:00 Telephone Pearl Echeverria GRAY PLABAKARI 1.840.114 350.1.13.10 4.2.7.2.686 [id number] 086 [id number] [facility] 2022-05-04 00:00:00 2022-05-04 00:00:00 Refill [facility] MEDICAL OFFICE BUILDING 1.84.114 350.1.13.10 4.2.7.2.686 [id number] 220 [id number] [facility] 2022-03-06 00:00:00 2022-03-06 00:00:00 Patient Secure Msnorma [facility] MEDICAL OFFICE BUILDING 1.284.114 350.1.13.10 4.2.7.2.686 [id number] 220 [id number] [facility] 2022-03-02 00:00:00 2022-03-02 00:00:00 Refill Jessica, [facility]AVILL[facility] 1.2840.114 350.1.13.10 4.2.7.2.686 [id number] 220 [id number] [facility] 2022-02-28 12:00:00 2022-02-28 13:14:28 Outpatient R LANIE LOPEZ [facility] [id number] [facility] 2022-02-28 12:00:00 2022-02-28 13:14:28 Office Visit [facility] MEDICAL OFFICE BUILDING 1.84.114 350.1.13.10 4.2.7.2.686 [id number] 220 [id number] [facility] 2022-02-28 12:30:00 2022-02-28 12:45:00 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, Avila Silver [facility] MEDICAL OFFICE BUILDING 1.84.114 350.1.13.10 4.2.7.2.686 [id number] [facility] 2022-01-02 15:30:00 2022-01-02 15:30:00 Outpatient R ARIES LEIGH [facility] [id number] [facility] 2021-12-19 00:00:00 2021-12-19 00:00:00 Patient Secure Msg Jessica [facility] 1.2840.114 350.1.13.10 4.2.7.2.686 [id number] 220 [id number] [facility] 2021-12-15 16:30:00 2021-12-15 16:30:00 Outpatient R FAYE NAPOLES [facility] [id number] [facility] 2021-12-15 00:00:00 2021-12-15 00:00:00 [facility] MEDICAL OFFICE BUILDING 1.840.114 350.1.13.10 4.2.7.2.686 [id number] [facility] 2021-11-29 00:00:00 2021-11-29 00:00:00 [facility]ill [facility]ILD[facility] 1.2.840.114 350.1.13.10 4.2.7.2.686 [id number] 220 [id number] [facility] 2021-11-29 00:00:00 2021-11-29 00:00:00 Refill Lanie Lopez [facility] MEDICAL OFFICE BUILDING 1.2840.114 350.1.13.10 4.2.7.2.686 [id number] 220 [id number] [facility] 2021-11-27 10:30:00 2021-11-27 11:02:19 Outpatient R LANIE LOPEZ [facility] [id number] [facility] 2021-11-27 10:30:00 2021-11-27 11:02:19 Office Visit Lanie Lopez [facility] MEDICAL OFFICE BUILDING 1.2840.114 350.1.13.10 4.2.7.2.686 [id number] 220 [id number] [facility] 2021-11-24 00:00:00 2021-11-24 00:00:00 Refill Chema Dominguez Amandeep [facility] MEDICAL OFFICE BUILDING 1.2840.114 350.1.13.10 4.2.7.2.686 [id number] 220 [id number] [facility] 2021-10-21 00:00:00 2021-10-21 00:00:00 Refill Lanie Lopez [facility] MEDICAL OFFICE BUILDING 1.2.840.114 350.1.13.10 4.2.7.2.686 [id number] 220 [id number] [facility] 2021-10-20 10:00:00 2021-10-20 10:00:00 Outpatient INDIRA GARCÍAN [facility] [id number] [facility] 2021-10-05 15:00:00 2021-10-05 15:00:00 Outpatient INDIRA GARCÍAN [facility] [id number] [facility] 2021-09-29 15:00:00 2021-09-29 15:00:00 Outpatient KIZZY DAWN HOWARD [facility] [id number] [facility] 2021-09-23 00:00:00 2021-09-23 00:00:00 Nancy Gurrola [facility] 1..840.114 350.1.13.10 4.2.7.2.686 [id number] 220 [id number] [facility] 2021-09-12 13:00:00 2021-09-12 13:00:00 Outpatient KIZZY DAWN HOWARD [facility] [id number] [facility] 2021-08-29 09:00:00 2021-08-29 09:00:00 Outpatient ARIES GUTIERREZ [facility] [id number] [facility] 2021-08-29 00:00:00 2021-08-29 00:00:00 Telephone Lanie Lopez [facility] PRIMARY CARE PAVILLION 1..840.114 350.1.13.10 4.2.7.2.686 [id number] 220 [id number] [facility] 2021-08-25 15:00:00 2021-08-25 15:30:00 Office Visit AlbaroIndiran [facility] PROF[facility] 1..840.114 350.1.13.10 4.2.7.2.686 [id number] [facility] 2021-08-25 15:00:00 2021-08-25 15:00:00 Outpatient Smooth DEBRA IRVIN [facility] [id number] [facility] 2021-08-25 15:00:00 2021-08-25 15:00:00 Outpatient R DEBRA IRVIN [facility] [id number] [facility] 2021-08-23 09:30:00 2021-08-23 09:45:00 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, Avila Lopez Manjarrez [facility] 1..840.114 350.1.13.10 4.2.7.2.686 [id number] [facility] 2021-08-23 08:30:00 2021-08-23 09:16:15 Outpatient R LANIE LOPEZ JESSICALANIE [facility] [id number] [facility] 2021-08-23 08:30:00 2021-08-23 09:16:15 [facility] MED[facility] BUILD[facility] 1..840.114 350.1.13.10 4.2.7.2.686 [id number] 220 [id number] [facility] 2021-08-03 00:00:00 2021-08-03 00:00:00 Chema Venegas [facility]?MAMI [facility] MEDICAL OFFICE BUILDING 1.2.840.114 350.1.13.10 4.2.7.2.686 [id number] 220 [id number] [facility] 2021-08-02 16:00:00 2021-08-02 16:00:00 Outpatient R ISIDRO FIONA [facility] [id number] [facility] 2021-07-31 00:00:00 2021-07-31 00:00:00 Chema Venegas [facility] MEDICAL OFFICE BUILDING 1.2.840.114 350.1.13.10 4.2.7.2.686 [id number] 220 [id number] [facility] 2021-07-21 00:00:00 2021-07-21 00:00:00 Chema Venegas [facility] MED[facility] 1.2.840.114 350.1.13.10 4.2.7.2.686 [id number] 220 [id number] [facility] 2021-07-20 00:00:00 2021-07-20 00:00:00 Nancy Gurrola [facility] 1.2.840.114 350.1.13.10 4.2.7.2.686 [id number] 220 [id number] [facility] 2021-05-17 00:00:00 2021-05-17 00:00:00 Chema Venegas [facility] BUILD[facility] 1..840.114 350.1.13.10 4.2.7.2.686 [id number] 220 [id number] [facility] 2021-03-11 00:00:00 2021-03-11 00:00:00 Chema Venegas [facility] BUILDING 1.2.840.114 350.1.13.10 4.2.7.2.686 [id number] 220 [id number] [facility] 2021-03-08 00:00:00 2021-03-08 00:00:00 Chema Venegas [facility] BUILDING 1.2.840.114 350.1.13.10 4.2.7.2.686 [id number] 220 [id number] [facility] 2021-02-23 13:30:00 2021-02-23 13:30:00 Outpatient JOSE CARTER [facility] [id number] [facility] 2021-02-09 00:00:00 2021-02-09 00:00:00 Orders Only Doctor Unassigned, Switzer [facility] 1.2.840.114 350.1.13.10 4.2.7.2.686 [id number] [facility] 2021-01-30 00:00:00 2021-01-30 00:00:00 Outpatient FAYE ARMAS [facility] [id number] [facility] 2021-01-30 00:00:00 2021-01-30 00:00:00 [facility] [id number] [facility] 2021-01-24 00:00:00 2021-01-24 00:00:00 [facility] 1..840.114 350.1.13.10 4.2.7.2.686 [id number] [facility] 2021-01-17 13:00:00 2021-01-17 13:00:00 Outpatient KIZZY DAWN HOWARD [facility] [id number] [facility] 2021-01-16 12:41:38 2021-01-16 12:56:38 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 Pob, Adc Lab Main Jose Bowen [facility] 1..840.114 350.1.13.10 4.2.7.2.686 [id number] [facility] 2021-01-16 10:57:50 2021-01-16 11:58:36 Office Visit Jose Bowen Nancy [facility] 1..840.114 350.1.13.10 4.2.7.2.686 [id number] [facility] 2021-01-16 10:30:00 2021-01-16 11:58:36 Outpatient ARIES GUTIERREZ [facility] [id number] [facility] 2021-01-16 10:30:00 2021-01-16 11:58:36 Outpatient R ARIES LEIGH [facility] [id number] [facility] 2021-01-16 00:00:00 2021-01-16 00:00:00 Orders Only Doctor Unassigned, Switzer [facility] 1.2840.114 350.1.13.10 4.2.7.2.686 [id number] [facility] 2021-01-13 00:00:00 2021-01-13 00:00:00 Patient Secure Msg Kassandra [facility] MEDICAL OFFICE BUILDING 1.84.114 350.1.13.10 4.2.7.2.686 [id number] 220 [id number] [facility] 2021-01-13 00:00:00 2021-01-13 00:00:00 Patient Secure [facility] 1.114 350.1.13.10 4.2.7.2.686 [id number] 220 [id number] [facility] 2021-01-10 00:00:00 2021-01-10 00:00:00 [facility] 1.84.114 350.1.13.10 4.2.7.2.686 [id number] [facility] 2021-01-06 15:30:00 2021-01-06 16:04:28 Outpatient R KASSANDRA [facility] [id number] [facility] 2021-01-06 15:25:33 2021-01-06 16:04:28 Office Visit Kassandra [facility] MEDICAL OFFICE BUILDING 1.284.114 350.1.13.10 4.2.7.2.686 [id number] 220 [id number] [facility] 2021-01-06 15:30:00 2021-01-06 15:30:00 Outpatient R NANCY CANNON [facility] [id number] [facility] 2021-01-06 15:30:00 2021-01-06 15:30:00 Outpatient R NANCY CANNON [facility] [id number] [facility] 2021-01-05 14:30:00 2021-01-05 23:59:00 Outpatient R FAYE NAPOLES [facility] [id number] [facility] 2021-01-05 14:30:00 2021-01-05 23:59:00 Hospital En[facility] MEDICAL OFFICE BUILDING 1.2.840.114 350.1.13.10 4.2.7.2.686 [id number] [facility] 2021-01-05 14:30:00 2021-01-05 14:30:00 Outpatient R FAYE NAPOLES [facility] [id number] [facility] 2021-01-05 14:30:00 2021-01-05 14:30:00 Outpatient R FAYE NAPOLES [facility] [id number] [facility] 2021-01-05 14:08:27 2021-01-05 14:23:27 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, Avila - Nadeem Yesika [facility] MEDICAL OFFICE BUILDING 1.2.840.114 350.1.13.10 4.2.7.2.686 [id number] [facility] 2021-01-05 12:52:04 2021-01-05 14:06:37 Office Visit [facility] MEDICAL OFFICE BUILDING 1.2.840.114 350.1.13.10 4.2.7.2.686 [id number] [facility] 2021-01-05 00:00:00 2021-01-05 00:00:00 Orders Only Doctor Unassigned, Switzer [facility] 1.114 350.1.13.10 4.2.7.2.686 [id number] [facility] 2020-12-23 00:00:00 2020-12-23 00:00:00 Telephone [facility] 1.114 350.1.13.10 4.2.7.2.686 [id number] 220 [id number] [facility] 2020-12-12 09:00:00 2020-12-12 09:00:00 Outpatient FAYE ARMAS [facility] [id number] [facility] 2020-11-25 16:00:00 2020-11-25 16:00:00 Outpatient CHEMA MARIEE [facility] [id number] [facility] 2020-11-21 11:00:00 2020-11-21 11:00:00 Outpatient CHEMA MARIEE [facility] [id number] [facility] 2020-10-28 00:00:00 2020-10-28 00:00:00 Telephone E[facility] .114 350.1.13.10 4.2.7.2.686 [id number] 220 [id number] [facility] 2020-10-28 00:00:00 2020-10-28 00:00:00 Telephone Ely [facility] .114 350.1.13.10 4.2.7.2.686 [id number] 220 [id number] [facility] 2020-10-24 00:00:00 2020-10-24 00:00:00 [facility] 1.840.114 350.1.13.10 4.2.7.2.686 [id number] 220 [id number] [facility] 2020-10-20 00:00:00 2020-10-20 00:00:00 JacintaChema Ryan [facility] Professio nal Building 1.2.840.114 350.1.13.10 4.2.7.2.686 [id number] 220 [id number] [facility] 2020-10-20 00:00:00 2020-10-20 00:00:[address] [facility] Building 1.2.840.114 350.1.13.10 4.2.7.2.686 [id number] 220 [id number] [facility] 2020-07-24 00:00:00 2020-07-24 00:00:[address] [facility] Building 1.2.840.114 350.1.13.10 4.2.7.2.686 [id number] 220 [id number] [facility] 2020-06-25 13:10:00 2020-06-25 13:10:00 Outpatient [facility] [id number] [facility] 2020-06-04 13:00:00 2020-06-04 13:00:00 Outpatient [facility] [id number] [facility] 2020-05-25 15:00:00 2020-05-25 15:00:00 Outpatient ARIES GUTIERREZ [facility] [id number] [facility] 2020-05-13 10:59:16 2020-05-13 12:12:32 Office Visit Chema Dominguez [facility] Building 1.2.840.114 350.1.13.10 4.2.7.2.686 [id number] 220 [id number] [facility] 2020-05-13 11:00:00 2020-05-13 11:00:00 Outpatient R CHEMA DOMINGUEZ [facility] [id number] [facility] 2020-05-10 14:30:00 2020-05-10 14:30:00 Outpatient R ARIES LEIGH [facility] [id number] [facility] 2020-04-24 00:00:00 2020-04-24 00:00:00 [facility] 1..114 350.1.13.10 4.2.7.2.686 [id number] 220 [id number] [facility] 2020-02-15 00:00:00 2020-02-15 00:00:00 [facility]..114 350.1.13.10 4.2.7.2.686 [id number] 220 [id number] [facility] 2020-02-11 00:00:00 2020-02-11 00:00:00 Refill Fiona Felix [facility] 1..114 350.1.13.10 4.2.7.2.686 [id number] 220 [id number] [facility] 2020-01-29 09:00:00 2020-01-29 09:00:00 Outpatient R CHEMA DOMINGUEZ [facility] [id number] [facility] 2020-01-28 00:00:00 2020-01-28 00:00:00 Orders Only Fiona Felxi [facility] 1..114 350.1.13.10 4.2.7.2.686 [id number] [facility] 2020-01-27 00:00:00 2020-01-27 00:00:[address] [facility] Building 1..114 350.1.13.10 4.2.7.2.686 [id number] 220 [id number] [facility] 2019-12-28 00:00:00 2019-12-28 00:00:00 Refill [facility] 1.20.114 350.1.13.10 4.2.7.2.686 [id number] 220 [id number] [facility] 2019-12-28 00:00:00 2019-12-28 00:00:[address] [facility] Building 1.2.114 350.1.13.10 4.2.7.2.686 [id number] 2019-07-28 08:45:00 2019-07-28 08:45:00 Outpatient R [facility] [id number] [facility] 2019-07-24 08:17:11 2019-07-24 11:47:51 Telemedici ne Visit Chema Dominguez [facility] Building 1.2114 350.1.13.10 4.2.7.2.686 [id number] 220 [id number] [facility] 2019-07-24 08:17:11 2019-07-24 11:47:51 Telemedici ne Visit Chema Dominguez [facility] Building 1.2.114 350.1.13.10 4.2.7.2.686 [id number] 2019-07-24 10:30:00 2019-07-24 10:30:00 Outpatient R CHEMA DOMINGUEZ [facility] [id number] [facility] 2019-07-10 00:00:00 2019-07-10 00:00:00 Refill [facility] 1.114 350.1.13.10 4.2.7.2.686 [id number] 220 [id number] [facility] 2019-07-10 00:00:00 2019-07-10 00:00:00 Refill [facility] 1.2840.114 350.1.13.10 4.2.7.2.686 [id number] 220 [id number] 2019-05-20 08:37:33 2019-05-20 13:26:38 [facility]medici ne [facility] 1.2840.114 350.1.13.10 4.2.7.2.686 [id number] 220 [id number] [facility] 2019-05-20 08:37:33 2019-05-20 13:26:38 [facility]medici ne [facility] 1.2840.114 350.1.13.10 4.2.7.2.686 [id number] 220 [id number] 2019-05-20 09:30:00 2019-05-20 09:30:00 Outpatient R [facility] [id number] [facility] 2019-05-20 00:00:00 2019-05-20 00:00:00 [facility]phone [facility] 1.2.840.114 350.1.13.10 4.2.7.2.686 [id number] 220 [id number] [facility] 2019-05-20 00:00:00 2019-05-20 00:00:00 Telephone Isidro [facility] 1.2.840.114 350.1.13.10 4.2.7.2.686 [id number] 220 [id number] 2019-05-19 14:15:00 2019-05-19 14:15:00 Outpatient R [facility] [id number] [facility] 2019-05-17 00:00:00 2019-05-17 00:00:00 Refill Isidro [facility] 1.2.840.114 350.1.13.10 4.2.7.2.686 [id number] 220 [id number] [facility] 2019-05-17 00:00:00 2019-05-17 00:00:[address] [facility] Building 1.2.840.114 350.1.13.10 4.2.7.2.686 [id number] 220 [id number] [facility] 2019-05-17 00:00:00 2019-05-17 00:00:00 Refill Isidro [facility] 1.2.840.114 350.1.13.10 4.2.7.2.686 [id number] 220 [id number] 2019-05-17 00:00:00 2019-05-17 00:00:[address] [facility] 1.2.840.114 350.1.13.10 4.2.7.2.686 [id number] 220 [id number] 2019-05-15 00:00:00 2019-05-15 00:00:00 Refill Isidro [facility] 1.2.840.114 350.1.13.10 4.2.7.2.686 [id number] 220 [id number] [facility] 2019-05-15 00:00:00 2019-05-15 00:00:00 Refill Isidro [facility] [facility] 1.2.840.114 350.1.13.10 4.2.7.2.686 [id number] 220 [id number] 2019-04-28 00:00:00 2019-04-28 00:00:00 [facility] 1.2.840.114 350.1.13.10 4.2.7.2.686 [id number] 220 [id number] [facility] 2019-04-28 00:00:00 2019-04-28 00:00:00 Refill AndreaNicole philip [facility] AND [facility] 1.2840.114 350.1.13.10 4.2.7.2.686 [id number] 220 [id number] 2019-04-24 00:00:00 2019-04-24 00:00:00 Refill Isidro [facility] Building 1.2.840.114 350.1.13.10 4.2.7.2.686 [id number] 220 [id number] [facility] 2019-04-24 00:00:00 2019-04-24 00:00:[address] [facility] Building 1..840.114 350.1.13.10 4.2.7.2.686 [id number] 220 [id number] 2019-04-12 21:42:00 2019-04-12 21:42:00 [place] [facility] [id number] 2019-04-09 10:45:00 2019-04-09 10:45:00 [facility] [id number] [facility] 2019-04-03 00:00:00 2019-04-03 00:00:00 Refill Isidro [facility] Building 1.2.840.114 350.1.13.10 4.2.7.2.686 [id number] 220 [id number] [facility] 2019-04-03 00:00:00 2019-04-03 00:00:00 Refill Isidro [facility] 1.2.840.114 350.1.13.10 4.2.7.2.686 [id number] 220 [id number] 2018-11-05 15:00:00 2018-11-05 15:00:00 Outpatient ARIES GUTIERREZ [facility] [id number] [facility] 2018-10-30 00:00:00 2018-10-30 00:00:00 Telephone Fiona Felix [facility] Building 1.2.840.114 350.1.13.10 4.2.7.2.686 [id number] 220 [id number] [facility] 2018-10-30 00:00:00 2018-10-30 00:00:00 [facility] Building 1.2.840.114 350.1.13.10 4.2.7.2.686 [id number] 220 [id number] 2018-09-19 00:00:00 2018-09-19 00:00:[address] [facility] Building 1.2.840.114 350.1.13.10 4.2.7.2.686 [id number] 220 [id number] [facility] 2018-09-19 00:00:00 2018-09-19 00:00:[address] [facility] Building 1.2.840.114 350.1.13.10 4.2.7.2.686 [id number] 220 [id number] 2018-08-06 11:09:00 2018-08-06 11:09:00 [facility] [id number] [facility] 2018-04-23 01:12:00 2018-04-23 01:12:00 [facility] [id number] [facility] 2018-04-22 16:00:00 2018-04-22 16:00:00 [facility] [id number] [facility] 2017-10-29 09:06:00 2017-10-29 09:06:00 [place] [facility] [id number] [facility] 2017-10-25 23:08:00 2017-10-25 23:08:00 [facility] [id number] [facility] 2017-10-25 15:00:00 2017-10-25 15:00:00 [facility] [id number] [facility] Results Test Description Test Time Test Comments Results Result Co mments Source [facility]/O SPECIFIC [id number] 21:40:00* Test Item Value Reference Range Interpretation [...] = 3257) negative Negative - Negati ve [facility] 04:53:45* Test Item Value Reference Range Interpretation Comme nts MAGNESIUM (test code = 5537965330) 2.1 mg/dL 1.7-2.4 Lab Interpretation (test cod e = 97298-5) Normal [facility]OLIC PAN[facility] (11935)2022-09-17 04:53:25* Test Item Value Reference Range Interpretation Comme nts NA (test code = 9178546331) 142 mmol/L 135-145 K (test code = 9058165821) 4.0 mmol/L 3.5-5.0 CL (test code = 9855469654) 113 mmol/L 98-108 H CO2 TOTAL (test code = 5281791448) 26 mmol/L 23-31 AGAP (test code = 8335476486) 3 2-16 BUN (test code = 8563240835) 17 mg/dL 7-23 GLUCOSE (test code = 4950156546) 83 mg/dL 70-110 CREATININE (test code = 1560747011) 0.75 mg/dL 0.50-1.04 TOTAL BILI (test code = 0147430695) 0.3 mg/dL 0.1-1.1 CALCIUM (test code = 0364909179) 8.2 mg/dL 8.6-10.6 L T PROTEIN (test code = 2484676919) 6.6 g/dL 6.3-8.2 ALBUMIN (test code = 1289956596) 3.7 g/dL 3.5-5.0 ALK PHOS (test code = 4215582143) 68 U/L 34-122 ALTv (test code = 1742-6) 10 U/L 5-35 AST(SGOT) (test code = 4487219416) 12 U/L 13-40 L eGFR (test code = 0560572628) 84.3 mL/min/1.73m2 GRIFFIN (test code = GRIFFIN) [...] imaging tests). Lab Interpretation (test code = 88944-6) Abnormal [facility] [id number] 04:46:00* Test Item Value Reference Range Interpretation Comme nts POCT PREG (test code = 1605) Negative On board controls acceptable with C Line (test code = 3574) Yes POCT PREG LOT # (test code = 3575) [id number] POCT PREG TEST DATE ( test code = 3576) 02-07-2024 Lab Interpretation (test cod e = 42007-1) Normal [facility] [id number] 04:41:49* Test Item Value Reference Range Interpretation [...] 31.9 g/dL 31.6-35.1 RDW-SD (test code = 04413-2) 45.2 fL 39.0-49.9 RDW-CV (test code = 788-0) 14.3 % 12.0-15.5 PLT (test code = 777-3) 204 See_Comment [Automated messa ge] The system which generated this result transmitted reference range: 166 - 358 10*3/?L. The reference range was not used to interpret this result as normal/abnormal. MPV (test code = 75373-5) 10.2 fL 9.5-12.9 NRBC/100 WBC (test code = 0095947723) 0.0 See_Comment [Automated me ssage] The system which generated this result transmitted reference range: 0.0 - 10.0 /100 WBCs. The reference range was not used to interpret this result as normal/abnormal. NRBC x10^3 (test code = 9336909914) See_Comment [Automated messa ge] The system which generated this result transmitted reference range: 10*3/?L. The reference range was not used to interpret this result as normal/abnormal. GRAN MAT (NEUT) % (test code = 770-8) 70.4 % IMM GRAN % (test code = 8904209111) 0.50 % LYMPH % (test code = 736-9) 19.8 % MONO % (test code = 5905-5) 7.6 % EOS % (test code = 713-8) 1.4 % BASO % (test code = 706-2) 0.3 % GRAN MAT x10^3(ANC) (test code = 8437029410) 5.44 10*3/uL 1.88-7.09 IMM GRAN x10^3 (test code = 9218686611) 0.04 10*3/uL 0.00-0.06 LYMPH x10^3 (test code = 731-0) 1.53 10*3/uL 1.32-3.29 MONO x10^3 (test code = 742-7) 0.59 10*3/uL 0.33-0.92 EOS x10^3 (test code = 711-2) 0.11 10*3/uL 0.03-0.39 BASO x10^3 (test code = 704-7) 0.01-0.07 Lab Interpretation (test code = 20312-6) Abnormal [facility]. METABOLIC PANEL (31905)2022-09-05 04:19:50* Test Item Value Reference Range Interpretation Comme nts NA (test code = 5605783570) 138 mmol/L 135-145 K (test code = 3721797003) 4.5 mmol/L 3.5-5.0 CL (test code = 7666202557) 107 mmol/L 98-108 CO2 TOTAL (test code = 8182414602) 26 mmol/L 23-31 AGAP (test code = 1223663861) 5 2-16 BUN (test code = 4543361728) 13 mg/dL 7-23 GLUCOSE (test code = 2585184575) 97 mg/dL 70-110 CREATININE (test code = 9959092169) 0.71 mg/dL 0.50-1.04 TOTAL BILI (test code = 4732907673) 0.6 mg/dL 0.1-1.1 CALCIUM (test code = 2118528477) 9.1 mg/dL 8.6-10.6 T PROTEIN (test code = 4772212139) 7.1 g/dL 6.3-8.2 ALBUMIN (test code = 2649214395) 4.2 g/dL 3.5-5.0 ALK PHOS (test code = 4903490040) 84 U/L 34-122 ALTv (test code = 1742-6) 15 U/L 5-35 AST(SGOT) (test code = 9335129236) 14 U/L 13-40 eGFR (test code = 5432468136) 89.8 mL/min/1.73m2 GRIFFIN (test code = GRIFFIN) [...] or urine or abnormalities in imaging tests). [facility] WITH [id number] 03:49:48* Test Item Value Reference Range Interpretation Comme nts WBC (test code = 6690-2) 8.89 See_Comment [Automated [employer]] The system which generated this result transmitted reference range: 4.30 - 11.10 10*3/?L. The reference range was not used to interpret this result as normal/abnormal. RBC (test code = 789-8) 4.01 See_Comment [Automated [employer]] The system which generated this result transmitted [...] g/dL 31.6-35.1 L RDW-SD (test code = 53635-9) 46.2 fL 39.0-49.9 RDW-CV (test code = 788-0) 14.1 % 12.0-15.5 PLT (test code = 777-3) 299 See_Comment [Automated [employer]] The system which generated this result transmitted reference range: 166 - 358 10*3/?L. The reference range was not used to interpret this result as normal/abnormal. MPV (test code = 87179-8) 10.5 fL 9.5-12.9 NRBC/100 WBC (test code = 4773506904) 0.0 See_Comment [Automated me ssage] The system which generated this result transmitted reference range: 0.0 - 10.0 /100 WBCs. The reference range was not used to interpret this result as normal/abnormal. NRBC x10^3 (test code = 4659159719) See_Comment [Automated messa ge] The system which generated this result transmitted reference range: 10*3/?L. The reference range was not used to interpret this result as normal/abnormal. GRAN MAT (NEUT) % (test code = 770-8) 83.0 % IMM GRAN % (test code = 1297408705) 0.60 % LYMPH % (test code = 736-9) 10.5 % MONO % (test code = 5905-5) 4.9 % EOS % (test code = 713-8) 0.8 % BASO % (test code = 706-2) 0.2 % GRAN MAT x10^3(ANC) (test code = 3523046078) 7.38 10*3/uL 1.88-7.09 H IMM GRAN x10^3 (test code = 0684530391) 0.05 10*3/uL 0.00-0.06 LYMPH x10^3 (test code = 731-0) 0.93 10*3/uL 1.32-3.29 L MONO x10^3 (test code = 742-7) 0.44 10*3/uL 0.33-0.92 EOS x10^3 (test code = 711-2) 0.07 10*3/uL 0.03-0.39 BASO x10^3 (test code = 704-7) 0.01-0.07 Lab Interpretation (test code = 71094-3) Abnormal [facility] [id number] 12:22:00* Test Item Value Reference Range Interpretation Comme nts POCT PREG (test code = 1605) Negative On board controls acceptable with C Line (test code = 3574) Yes POCT PREG LOT # (test code = 3575) 698082 POCT PREG TEST DATE ( test code = 3576) 89870 Lab Interpretation (test cod e = 38190-4) [facility] [id number] 12:22:00* Test Item Value Reference Range Interpretation Comme nts POCT PREG (test code = 1605) Negative On board controls acceptable with C Line (test code = 3574) Yes POCT PREG LOT # (test code = 2119) 190968 POCT PREG TEST DATE ( test code = 5555) 18700 Lab Interpretation (test cod e = 51490-1) Normal [facility]. METABOLIC PANEL (11737)2022-07-28 22:53:38* Test Item Value Reference Range Interpretation Comme nts NA (test code = 9788181796) 139 mmol/L 135-145 K (test code = 1247778430) 3.6 mmol/L 3.5-5.0 CL (test code = 0553841196) 107 mmol/L 98-108 CO2 TOTAL (test code = 5946297865) 25 mmol/L 23-31 AGAP (test code = 2054886315) 7 2-16 BUN (test code = 4627840534) 14 mg/dL 7-23 GLUCOSE (test code = 6339280505) 97 mg/dL 70-110 CREATININE (test code = 3199921258) 0.73 mg/dL 0.50-1.04 TOTAL BILI (test code = 9484806305) 0.6 mg/dL 0.1-1.1 CALCIUM (test code = 8424346055) 9.0 mg/dL 8.6-10.6 T PROTEIN (test code = 3305554271) 6.8 g/dL 6.3-8.2 ALBUMIN (test code = 2476871986) 4.1 g/dL 3.5-5.0 ALK PHOS (test code = 9928833483) 75 U/L 34-122 ALTv (test code = 1742-6) 13 U/L 5-35 AST(SGOT) (test code = 9966935837) 12 U/L 13-40 L eGFR (test code = 4226011664) 87.0 mL/min/1.73m2 GRIFFIN (test code = GRIFFIN) [...] imaging tests). Lab Interpretation (test code = 34998-6) Abnormal [facility] WITH [id number] 22:41:58* Test Item Value Reference Range Interpretation Comme nts WBC (test code = 6690-2) 7.61 See_Comment [Automated [employer]] The system which generated this result transmitted reference range: 4.30 - 11.10 10*3/?L. The reference range was not used to interpret this result as normal/abnormal. RBC (test code = 789-8) 4.07 See_Comment [Automated [employer]] The system which generated this result transmitted [...] 33.4 g/dL 31.6-35.1 RDW-SD (test code = 84780-7) 43.9 fL 39.0-49.9 RDW-CV (test code = 788-0) 13.8 % 12.0-15.5 PLT (test code = 777-3) 225 See_Comment [Automated messa ge] The system which generated this result transmitted reference range: 166 - 358 10*3/?L. The reference range was not used to interpret this result as normal/abnormal. MPV (test code = 79172-7) 9.7 fL 9.5-12.9 NRBC/100 WBC (test code = 3030077339) 0.0 See_Comment [Automated [employer] ssage] The system which generated this result transmitted reference range: 0.0 - 10.0 /100 WBCs. The reference range was not used to interpret this result as normal/abnormal. NRBC x10^3 (test code = 9711303916) See_Comment [Automated [employer] ge] The system which generated this result transmitted reference range: 10*3/?L. The reference range was not used to interpret this result as normal/abnormal. GRAN MAT (NEUT) % (test code = 770-8) 81.5 % IMM GRAN % (test code = 3097867330) 0.40 % LYMPH % (test code = 736-9) 11.0 % MONO % (test code = 5905-5) 6.3 % EOS % (test code = 713-8) 0.5 % BASO % (test code = 706-2) 0.3 % GRAN MAT x10^3(ANC) (test code = 6933018278) 6.20 10*3/uL 1.88-7.09 IMM GRAN x10^3 (test code = 9205129419) 0.03 10*3/uL 0.00-0.06 LYMPH x10^3 (test code = 731-0) 0.84 10*3/uL 1.32-3.29 L MONO x10^3 (test code = 742-7) 0.48 10*3/uL 0.33-0.92 EOS x10^3 (test code = 711-2) 0.04 10*3/uL 0.03-0.39 BASO x10^3 (test code = 704-7) 0.01-0.07 Lab Interpretation (test code = 69435-0) Abnormal [facility] HEMOGLOBIN A1C [id number] 17:58:00* Test Item Value Reference Range Interpretation Comme nts POCT HBA1C (test code = 4548-4) 4.8 % 4-6 [facility] HEMOGLOBIN A1C [id number] 17:58:00* Test Item Value Reference Range Interpretation Comme nts POCT HBA1C (test code = 4548-4) 4.8 % 4-6 [facility] Notes Date/Time Note Provider Source 2024-01-14 11:45:00 Images from the original note were not included. Venipuncture collection performed by clean technique on the right anticubitus. Total of 1 attempts were made. Slight pressure and a bandage/dressing were applied to the site(s). The patient experienced no complications. The following specimens were processed according to instructions and sent to 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 Pt verbalized understanding. Jayne Hess RN 12/06/2023 4:39 PM Jayne Hess RN [facility] 2023-12-06 15:48:24 Pt received her test results via [employer], pt would like to discuss it. Chantelle Gaston [facility] 2023-12-06 12:00:00 Images from the original note were not included. Venipuncture collection performed by clean technique on the left anticubitus. Total of 1 attempts were made. Slight pressure and a bandage/dressing were applied to the site(s). The patient experienced no complications. The following specimens were processed according to instructions and sent to [facility] laboratories per lab order on 12/06/2023 : Only here for Dr Hartman' labs today per patient. LT BLUE SST 2 RED 1 LAV PPT DK GREEN (LiHep) DK GREEN (SodH) URBAN DK BLUE (K2) DK BLUE (S) ACD Blood Culture NIPT/NTD [facility] 2023-11-25 10:25:06 Refill on file. No additional refills at this time. Order Information Date and Time Ordering Department Ordering/Authorizing 10/11/2023 11:51 AM Ang- Endocrinology Emily Gil AGPCNP Outpatient Medication Detail Disp Refills Start End NORMA topiramate 25 mg tablet 90 tablet 1 10/11/2023 -- -- Sig: Take 2 tablets by mouth in the morning. Sent to pharmacy as: topiramate 25 mg tablet (TOPAMAX) Class: eRX Route: Oral Order: [id number] Date/Time Signed: 10/11/2023 11:51 E-Prescribing Status: Receipt confirmed by pharmacy (10/11/2023 11:51 AM CDT) Jeanne Ball RN [facility] 2023-10-11 12:00:00 Images from the original note were not included. Venipuncture collection performed by clean technique on the left anticubitus. Total of 1 attempts were made. Slight pressure and a bandage/dressing were applied to the site(s). The patient experienced no complications. The following specimens were processed according to instructions and sent to [facility] laboratories per lab order on 10/11/2023 : LT BLUE SST 1 RED LAV PPT DK GREEN (LiHep) DK GREEN (SodH) URBAN DK BLUE (K2) DK BLUE (S) ACD Blood Culture NIPT/NTD T [facility] 2023-10-03 13:17:53 This is the last refill I am approving until face to face, please facilitate office visit. T [facility] 2023-10-02 09:24:02 Addended by: LEE ANN PENA on: 10/02/2023 09:24 AM Modules accepted: Orders T Lee Ann Pena MA [facility] 2023-10-02 08:53:37 Facilitate appointment, needs labs- give on 15 pills to last until visit. [facility] 2023-10-01 14:46:39 Recent Visits Date Type [...] pharmacy as: levothyroxine 125 mcg tablet (SYNTHROID) Greta Lopez MA [facility] 2023-06-29 12:57:19 Tx sent for Trich and BV Tx [facility] 2023-06-24 08:24:00 Please have patient get ordered labs from Saud valente. [facility] 2023-06-24 07:48:19 Images from the original note were not included. Notes: 05/27/23 Last Refilled: [facility] - [place], [place] - [address] TSH Date Value 11/30/2022 0.34 mIU/L (L) [...] (05/27/2023) by JUANY Ruby Endocrinology: Hypothyroid Agents Caypxg2406/22/2023 01:38 PM Protocol Details Manual Review: ENT providers forward refill request to PCP. TSH in normal range and within 360 days Valid encounter within last 12 months To be filled at: [facility]/pharmacy #[id number] Alexus Corley MA [facility] 2023-06-11 16:13:31 Images from the original note were not included. Requested [facility] triamcinolone acetonide 0.1 % ointment Sig: Apply to area(s) 2 (two) times daily. Disp: 30 g Refills: 0 Start: 06/11/2023 Class: eRX Non-formulary For: Eczema, unspecified type Last ordered: 6 months ago (12/13/2022) by JUANY Ruby Provider Review Required Kzmmog7806/11/2023 04:13 PM Protocol Details This refill cannot be delegated Valid encounter within last 12 months To be filled at: [facility]/pharmacy #[id number] Recent Visits Date Type Provider Dept 12/13/22 Office Visit Faye Napoles FNP [facility] 09/04/22 Office Visit Faye Napoles FNP [facility] Showing recent visits within past 540 days with a meds authorizing provider and meeting all other requirements Future Appointments No visits were found meeting these conditions. Showing future appointments within next 150 days with a meds authorizing provider and meeting all other requirements Kaye Moore LVN [facility] 2023-05-27 09:15:50 Last Refilled: LEVOTHYROXINE 125 mcg tablet 90 tablet 1 12/02/2022 -- No Sig: TAKE 1 TABLET BY MOUTH EVERY DAY IN THE MORNING Sent to pharmacy as: levothyroxine 125 mcg tablet (SYNTHROID) Class: eRX Route: Oral Order: [id number] Date/Time Signed: 12/02/2022 08:40 E-Prescribing Status: Receipt confirmed by pharmacy (12/02/2022 8:40 AM CDT) Recent Visits Date Type Provider Dept 12/13/22 Office Visit Nidasuki JUANY Becerril [facility] 09/04/22 Office Visit Yesika SUMAN BecerrilP [facility] Showing recent visits within past 540 days with a meds authorizing provider and meeting all other requirements Future Appointments No visits were found meeting these conditions. Showing future appointments within next 150 days with a meds authorizing provider and meeting all other requirements Laxmi Parra [facility] 2023-03-04 14:21:21 Images from the original note were not included. Last Refilled: 03/04/22 Notes: [facility] - [address] Recent Visits Date Type Provider Dept 12/13/22 Office Visit Faye NapolesSUMANP [facility] 09/04/22 Office Visit Faye NapolesSUMANP [facility] Showing recent visits within past 540 days with a meds authorizing provider and meeting all other requirements Future Appointments Date Type Provider Dept 03/07/23 Appointment Yesika SUMAN BecerrilP [facility] Showing future appointments [...] ago (01/28/2023) by JUANY Ruby Neurology: Anticonvulsants-Topiramate Xyeylz5603/02/2023 06:10 PM Protocol Details status completed Manual Review: Forward refill prescription to provider if patient has had any seizure activity or since last office visit Topiramate in normal range and within 360 days Valid encounter within last 12 months To be filled at: [facility]/pharmacy #[id number] [facility] [address] EATION FACILITIES SUPERVISOR Alexus Corley MA [facility] 2022-10-22 13:49:05 Formatting of this n [...] last 12 months To be filled at: [facility]/pharmacy #[id number] [facility] [address] Recent Visits Date Type Provider Dept [...] meeting all other requirements Kaye Moore LVN [facility] 2022-10-18 16:00:38 Formatting of this n ote might be different from the original. ANNE 08/17/22 NOV 01/21/23 Per ANNE note: -- Continue Phentermine 37.5 mg daily, tolerates well, weight remains unchanged from ANNE at 254 lbs. 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 Pt is requesting a refill on RX. phentermine 37.5 mg capsule Yvette Senior [facility] 2022-10-15 11:18:46 Formatting of this n [...] last 12 months To be filled at: [facility]/pharmacy #[id number] - [address] Recent Visits Date Type Provider Dept 09/04/22 Office Visit Faye Napoles FNP [facility] Showing recent visits within past 540 days with a meds authorizing provider and meeting all other requirements Future Appointments Date Type Provider Dept 03/07/23 Appointment Faye Napoles FNP [facility] Showing future appointments within next 150 days with a meds authorizing provider and meeting all other requirements Lee Ann Pena MA [facility] 2022-09-21 10:03:30 Formatting of this n ote might be different from the original. Patient scheduled with Dr. Hartman 09/24/22. Ramses Crowley RN 09/21/2022 10:03 AM Ramses Crowley RN [facility] 2022-09-20 16:59:30 Formatting of this n [...] RN 09/20/2022 4:59 PM Peggy Mcneil RN [facility] 2022-09-20 16:57:00 Formatting of this n [...] RN 09/20/2022 4:59 PM Peggy Mcneil RN [facility] 2022-09-20 13:04:15 Formatting of this n ote might be different from the original. Returned patients call, no answer, unable to leave voicemail. Peggy Mcneil RN 09/20/2022 1:36 PM [facility] 2022-09-20 10:58:59 Formatting of this n ote might be different from the original. PT called and wanted to know what the next step going forward is going to be now that's she has been verified a hernia? Please advise Turner Amador [facility] 2022-09-20 07:58:03 Formatting of this n ote might be different from the original. Sending patient [email or web address] message. Bibiana Rocha LVN [facility] 2022-09-19 14:38:54 Formatting of this n ote might be different from the original. After speaking to Dr. Dominguez, she is to double her dose for 3 days and then go back to her normal dose. [facility] 2022-09-19 10:17:55 Formatting of this n ote might be different from the original. Spoke to patient. 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 She has been to [facility] ER and was given emergency dose of cortisol and fluids for dehydration. Still reports dizziness, dehydration, feeling like she might faint. Not sure what she needs to do. [facility] 2022-09-19 09:54:11 Formatting of this n ote might be different from the original. Patient would like a nurse to call her marshall regarding her Addisons disease. Urszula Augustin [facility] 2022-09-18 16:47:44 Formatting of this n ote might be different from the original. Unable to leave voice mail due to inbox being full. [facility] 2022-09-18 10:25:44 Formatting of this n ote might be different from the original. Views CT scan results. Do not describes any incisional hernias. Describes small bilateral inguinal hernias with fat. Small left ovarian cysts but the rest is ok. Likely patient is taking longer healing and pain is related to that. Brooklyn Hartman MD [facility] 2022-09-18 10:19:26 Formatting of this n ote [...] she is in a crisis with her asotn's disease. [facility] 2022-09-18 10:12:44 Formatting of this n ote might be different from the original. Pt is wanting to discuss results with nurse and is wanting to know the next step. [facility] Bri Broussard [facility] 2022-09-17 03:14:00 Formatting of this n ote might be different from the original. Awake, alert oriented X4, respiratory even and unlabored,skin w/d color appropriate for race, moves all ext well, pt encouraged to follow up with pcp and or return as needed Pt given printed and verbal discharge instructions regarding Syncope, Dizziness, Pain of right hip, hx of [place]'s disease , patient verbralized understanding and signature obtained, patient denies any other concerns. Advised to seek medical attention for new/prolonged/worsening of symptoms, No adverse reaction to meds given in ER noted upon discharge Pt ambulated to the [facility] with steady gait [facility] 2022-09-17 01:03:03 Formatting of this n ote might be different from the original. Gave report to KESHAV Hernandez. Venessa Guzman RN [facility] 2022-09-17 01:03:03 Formatting of this n ote might be different from the original. Assumed care of patient, received report from KESHAV Echols. Visitor at bedside. Pt awaiting Ct-scan results. Will continue to monitor. [facility] 2022-09-16 22:22:01 Formatting of this n ote might be different from the original. Pt states she has a lump to incision for her partial hysterectomy of 08/20/2022, pt states today she woke up and has been feeling dizzy, pt states approx 1 hr block captain she had a syncope episode and woke up on the floor, pt states she is having pain the incision and hip pain on the right side. Cookie Hernandez RN [facility] 2019-05-20 13:53:23 P Altagracia Welch [facility] 2019-05-18 16:36:36 Patient scheduled and notified. Makenzie Silveira [facility] 2019-05-18 16:18:56 Per provider: Patient will need to set up tele visit prior to sending out refills. ANNE was one year ago Routing comment Please assist in scheduling telemed visit Britt Marti LVN Britt Marti LVN [facility] 2019-05-18 14:49:05 Pt calling back in regards to medication refill request. Judi Tong [facility] 2019-05-15 14:09:57 Anne: 05/19/2018 Nov: 11/19/2018 No show Nov: 04/03/2019 No show Nov: 07/24/2019 Provider must authorize/send controled medication Britt Marti LVN [facility]
[2024-06-21 21:50] LABS: Specific Gravity 1.027 (1.005-1.030)
[2024-06-21] MEDS ORDERED: dexAMETHasone 10 MG/ML VIAL ONE (22:55)
[2024-06-21] MEDS ORDERED: HYDROCODONE/APAP 5/325 MG TAB ONE (22:55)
--- NOTE | 2024-06-22 00:12 | EDPHYS ---
Physician Documentation [facility] Name: Lavinia Katz Age: 43 yrs Sex: Female : 1980 Arrival Date: 06/21/2024 Time: 19:54 Bed DX4 Private MD: ED Physician Db Rm HPI: 06/22 00:36 This 43 yrs old Female presents to ER via Ambulatory with complaints of Fall dr5 Injury. 00:36 Details of fall: The patient fell from a height. Onset: The symptoms/episode dr5 began/occurred acutely. Patient is a 43-year-old female with history of Aston's disease, bipolar disorder, chronic pain, fibromyalgia, hypothyroidism coming in with mechanical fall out of shower that occurred after she slipped and fell and hit left shoulder left sided ribs and left hip. Patient states that she is concerned that she may have broken something.. 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 - Infectious Disease History:: Denies. - Social history:: Smoking status: Reported history of juuling and/or vaping. ROS: 06/22 00:36 Constitutional: as per hpi dr5 Exam: 00:36 Constitutional: This is a well developed, well nourished patient who is awake, alert, dr5 and in no acute distress. Head/Face: Normocephalic, atraumatic. ENT: Nares patent. No nasal discharge, no septal abnormalities noted. Tympanic membranes are normal and external auditory canals are clear. Oropharynx with no redness, swelling, or masses, exudates, or evidence of obstruction, uvula midline. Mucous membranes moist. Chest/axilla: Normal chest wall appearance and motion. Nontender with no deformity. No lesions are appreciated. Cardiovascular: Regular rate and rhythm with a normal S1 and S2. Normal PMI, no JVD. No pulse deficits. Respiratory: Lungs have equal breath sounds bilaterally, clear to auscultation. No rales, rhonchi or wheezes noted. No increased work of breathing, no retractions or nasal flaring. Abdomen/GI: Soft, non-tender, non-distended Back: No spinal tenderness. No costovertebral tenderness. Full range of motion. Skin: Warm, dry with normal turgor. Normal color with no rashes, no lesions, and no evidence of cellulitis. MS/ Extremity: Pulses equal, no cyanosis. Neurovascular intact. Full, normal range of motion. Mild tenderness over left shoulder, left side, and left hip. Patient ambulated with steady gait. Neuro: Awake and alert, GCS 15, oriented to person, place, time, and situation. Cranial nerves II-XII grossly intact. Motor strength 5/5 in all extremities. Sensory grossly intact. Cerebellar exam normal. Normal gait. Vital Signs: 06/21 21:21 BP 118 / 81; Pulse 72; Resp 16; Temp 98; Pulse Ox 100% on R/A; Weight 89.36 kg; Height al5 5 ft. 5 in. ; 23:40 BP 117 / 65; Pulse 71; Resp 18 S; Pulse Ox 99% on R/A; ha1 21:21 Body Mass Index 32.78 (89.36 kg, 165.1 cm) al5 [place] Coma Score: 21:21 Eye Response: spontaneous(4). Motor Response: obeys commands(6). Verbal Response: al5 oriented(5). Total: 15. Trauma Score (Adult): 21:21 Eye Response: spontaneous(1); Verbal Response: oriented(1); Motor Response: obeys al5 commands(2); Systolic BP: > 89 mm Hg(4); Respiratory Rate: 10 to 29 per min(4); [place] Score: 15; Trauma Score: 12 MDM: 20:10 Medical Screening Exam initiated dr5 06/22 00:36 Differential diagnosis: abrasion, contusion, fracture, sprain, strain. Data reviewed: dr5 vital signs, nurses notes, radiologic studies, plain films. I considered the following discharge prescriptions or medication management in the emergency department Medications were administered in the Emergency Department. See MAR. Care significantly affected by the following chronic conditions: Levy's disease, bipolar disorder, fibromyalgia, hypothyroidism. Care significantly affected by the following Social Determinants of Health: Poor access to healthcare and/or lack of insurance, Poor access to transportation, Problems related to employment. Counseling: I had a detailed discussion with the patient and/or guardian regarding the historical points, exam findings, and any diagnostic results supporting the discharge/admit diagnosis, the presence of at least one elevated blood pressure reading (>120/80) during this emergency department visit, radiology results, the need for outpatient follow up, for definitive care, a family practitioner, to return to the emergency department if symptoms worsen or persist or if there are any questions or concerns that arise at home. Response to treatment: the patient's symptoms have markedly improved after treatment. ED course: Recommend patient follow-up primary care doctor this week. I did educate patient that her pain will likely be worse over the next 2 days due to trauma and inflammation. Recommended alternating Tylenol Motrin as needed for pain and inflammation and only take tramadol as needed for breakthrough pain. Increase hydration and take the next couple days to rest. Strict ER precautions given and all questions answered. 06/21 21: Order name: Test, Urine; Complete Time: 21:52 dr5 06/21 21:27 Order name: Chest Pa And Lat (2 Views) XRAY dr5 06/21 21:27 Order name: Ribs Left XRAY dr5 06/21 21:27 Order name: Hip Left 2 View XRAY dr5 Administered Medications: 06/21 23:15 Drug: HYDROcodone-acetaminophen PO 5 mg-325 mg 2 tabs PO once Route: PO; ha1 23:50 Follow up: Response: No adverse reaction; Marked relief of symptoms; Pain is decreased ha1 23:15 Drug: Dexamethasone IM 10 mg IM once Route: IM; Site: left deltoid; ha1 23:50 Follow up: Response: No adverse reaction; Marked relief of symptoms ha1 06/22 00:19 Drug: morphine IM 4 mg IM once Route: IM; Site: left deltoid; ha1 00:32 Follow up: Response: No adverse reaction; Marked relief of symptoms; Pain is decreased; ha1 RASS: Alert and Calm (0) Disposition: 01:03 Co-signature as Attending Physician, Db Rm MD I reviewed the patient's care rt provided by the Advanced Practice Provider and agree with the diagnosis and treatment plan. Disposition Summary: 06/22/24 00:11 Discharge Ordered Notes: Location: Home dr5 Condition: Stable dr5 Diagnosis - Fall on same level, unspecified dr5 Followup: dr5 - With: Emergency Department - When: As needed - Reason: Worsening of condition Followup: dr5 - With: Private Physician - When: 1 - 2 days - Reason: Recheck today's complaints, Continuance of care, Re-evaluation by your physician Discharge Instructions: - Discharge Summary Sheet dr5 - Fall Prevention in the Home, Adult dr5 Forms: - Work release form dr5 - Medication Reconciliation Form dr5 - Prescription Opioid Use dr5 - Patient Portal Instructions dr5 - Leadership Thank You Letter dr5 Prescriptions: - Ibuprofen 800 mg Oral Tablet - take 1 tablet ORAL route every 12 hours As needed take with food; 20 tablet; dr5 Refills: 0, Product Selection Permitted - Tramadol 50 mg Oral Tablet - take 1 tablet ORAL route every 8 hours as needed; 12 tablet; Refills: 0, dr5 Product Selection Permitted Signatures: Dispatcher [employer] EDMS Thea Elliott RN RN ha1 Db Rm MD MD rt Jeanne Lopez RN RN al5 Barrera Wakefield FNP-C SAFETY INVESTIGATOR/CAUSE ANALYST-Cdr5 Corrections: (The following items were deleted from the chart) 06/21 21: 21:27 Chest Pa And Lat (2 Views)+RAD.RAD.BRZ ordered. EDMS EDMS : 21:27 Ribs Left+RAD.RAD.BRZ ordered. EDMS EDMS 21: 21:28 Test, Urine+UC.LAB.BRZ ordered. EDMS EDMS : 21:28 Hip Left 2 View+RAD.RAD.BRZ ordered. EDMS EDMS
--- NOTE | 2024-06-22 00:12 | ER ---
Nurse's Notes [facility] Name: Lavinia Katz Age: 43 yrs Sex: Female : 1980 Arrival Date: 06/21/2024 Time: 19:54 Bed DX4 Private MD: Diagnosis: Fall on same level, unspecified Presentation: 06/21 21:21 Chief complaint: Patient states: was in the shower, fell out of shower and landed on al5 back. c/o L sided rib pain, back pain, and hip pain 12/04. Care prior to arrival: None. Mechanism of Injury: Fall from standing position. Trauma event details: Injury occurred in the [facility], Injury occurred: at home. Injury occurred: June 21, 2024. 21:21 Acuity: KIKA 3 al5 21:21 Method Of Arrival: Ambulatory al5 21:28 Coronavirus screen: At this time, the client does not indicate any symptoms associated al5 with coronavirus-19. Ebola Screen: No symptoms or risks identified at this time. Initial Sepsis Screen: Does the patient meet any 2 criteria? No. Patient's initial sepsis screen is negative. Does the patient have a suspected source of infection? No. Patient's initial sepsis screen is negative. Risk Assessment: Do you want to hurt yourself or someone else? Patient reports no desire to harm self or others. Onset of symptoms was June 21, 2024. Triage Assessment: 21:28 General: see trauma assessment. al5 IMMUNOLOGY TEACHER: 21:28 unknown al5 Trauma Activation: Physician: ED Physician; Name: ; Notified At: ; Arrived At: Physician: General Surgeon; Name: ; Notified At: ; Arrived At: Physician: Radiology; Name: ; Notified At: ; Arrived At: Physician: Respiratory; Name: ; Notified At: ; Arrived At: Physician: Lab; Name: ; Notified At: ; Arrived At: 21:21 n/a al5 Historical: - Allergies: 21:28 Latex; al5 - PMHx: 21:28 Aston's disease; Bipolar disorder; Chronic pain; Depression; Fibromyalgia; al5 Hypothyroidism; ibs; Migraines; Schizophrenia; - PSHx: 21:28 Cholecystectomy; hernia repair; rt fallopian removed; 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 - Infectious Disease History:: Denies. - Social history:: Smoking status: Reported history of juuling and/or vaping. Screenin:21 Abuse screen: Denies threats or abuse. Denies injuries from another. Nutritional al5 screening: No deficits noted. Tuberculosis screening: No symptoms or risk factors identified. 21:29 [facility] ED Fall Risk Assessment (Adult) History of falling in the last 3 months, al5 including since admission Yes- single mechanical fall (1 pt) Confusion or Disorientation No (0 pts) Intoxicated or Sedated No (0 pts) Impaired Gait Yes (1 pt) Mobility Assist Device Used No (0 pt) Altered Elimination No (0 pt) Score/Fall Risk Level 0 - 2 = Low Risk Maintained a safe environment. Primary Survey: 21:21 NO uncontrolled hemorrhage observed. A: The client is alert. Airway: patent, No al5 supplemental oxygen in use on arrival. Breathing/Chest: Respiratory effort: spontaneous, unlabored, Respiratory pattern: regular. Circulation: Hemorrhage: No external hemorrhage noted. Skin color: pink, Skin temperature: warm, dry. Disability Pupils are equal, round, reactive to light and accommodation. Client is alert. Exposure/Environment: There is no evidence of uncontrolled external bleeding. Obvious injury(ies) are noted at this time: L side ribs, hip, and back pain. Secondary Survey: 21:21 HEENT: No deficits noted. Gastrointestinal: No deficits noted. : No signs and/or al5 symptoms were reported regarding the genitourinary system. Musculoskeletal: Reports pain in pelvis and left hip and back and chest and left tenth rib and left ninth rib and left eighth rib and left seventh rib. Assessment: 21:21 General: Appears in no apparent distress. uncomfortable, Behavior is calm, cooperative. al5 Pain: Complains of pain in back, left seventh rib, left eighth rib, left ninth rib and left tenth rib Pain currently is 10 out of 10 on a pain scale. Neuro: Level of Consciousness is awake, alert, obeys commands, Oriented to person, place, time, situation. EENT: No signs and/or symptoms were reported regarding the EENT system. Cardiovascular: Capillary refill < 3 seconds Patient's skin is warm and dry. Respiratory: Airway is patent Respiratory effort is even, unlabored, Respiratory pattern is regular, symmetrical. GI: No signs and/or symptoms were reported involving the gastrointestinal system. : No signs and/or symptoms were reported regarding the genitourinary system. Derm: Skin is intact, is healthy with good turgor, Skin is pink, warm \T\ dry. normal. Musculoskeletal: Reports pain in back, left seventh rib, left eighth rib, left ninth rib, left tenth rib and left hip. 23:40 Reassessment: Patient and/or family updated on plan of care and expected duration. Pain ha1 level reassessed. Patient is alert, oriented x 3, equal unlabored respirations, skin warm/dry/pink. Patient states feeling better. Patient states symptoms have improved. Vital Signs: 21:21 BP 118 / 81; Pulse 72; Resp 16; Temp 98; Pulse Ox 100% on R/A; Weight 89.36 kg; Height al5 5 ft. 5 in. ; 23:40 BP 117 / 65; Pulse 71; Resp 18 S; Pulse Ox 99% on R/A; ha1 21:21 Body Mass Index 32.78 (89.36 kg, 165.1 cm) al5 Ch[place] Coma Score: 21:21 Eye Response: spontaneous(4). Motor Response: obeys commands(6). Verbal Response: al5 oriented(5). Total: 15. Trauma Score (Adult): 21:21 Eye Response: spontaneous(1); Verbal Response: oriented(1); Motor Response: obeys al5 commands(2); Systolic BP: > 89 mm Hg(4); Respiratory Rate: 10 to 29 per min(4); [place] Score: 15; Trauma Score: 12 ED Course: 20:06 Patient arrived in ED. jj6 20:10 Barrera [place] FNP[facility]C [facility] 20:10 Db Rm MD is Attending Physician. dr5 21:21 Patient has correct armband on for positive identification. Patient maintains SpO2 al5 saturation greater than 95% on room air. 21:21 No provider procedures requiring assistance completed. Patient maintains SpO2 al5 saturation greater than 95% on room air. 21:23 Triage completed. al5 21:28 Arm band placed on right wrist. Patient placed in waiting room, in view of staff al5 members, Patient notified of wait time. 21:29 Provided Education on: notification of wait time. al5 22:39 Chest Pa And Lat (2 Views) XRAY In Process Unspecified. EDMS 22:39 Ribs Left XRAY In Process Unspecified. EDMS 22:39 Hip Left 2 View XRAY In Process Unspecified. EDMS 06/22 00:45 Patient did not have IV access during this emergency room visit. ha1 Administered Medications: 06/21 23:15 Drug: HYDROcodone-acetaminophen PO 5 mg-325 mg 2 tabs PO once Route: PO; ha1 23:50 Follow up: Response: No adverse reaction; Marked relief of symptoms; Pain is decreased ha1 23:15 Drug: Dexamethasone IM 10 mg IM once Route: IM; Site: left deltoid; ha1 23:50 Follow up: Response: No adverse reaction; Marked relief of symptoms ha1 06/22 00:19 Drug: morphine IM 4 mg IM once Route: IM; Site: left deltoid; ha1 00:32 Follow up: Response: No adverse reaction; Marked relief of symptoms; Pain is decreased; ha1 RASS: Alert and Calm (0) Medication: 06/21 21:29 VIS not applicable for this client. al5 Intake: 21:21 n/a al5 Outcome: 06/22 00:11 Discharge ordered by . dr5 00:45 Discharged to home ambulatory, with family, ha1 00:45 Condition: stable 00:45 Discharge instructions given to patient, Instructed on discharge instructions, follow up and referral plans. medication usage, Demonstrated understanding of instructions, follow-up care, medications, Prescriptions given X 2, 00:46 Patient left the ED. ha1 Signatures: Dispatcher [employer] [facility] Michelle Alexandra [email or web address] Thea Elliott RN RN ha1 Jeanne Lopez RN RN al5 Barrera [place], SLOT MACHINE MECHANIC-C SLOT MACHINE MECHANIC-Cdr5
[2024-06-22] MEDS ORDERED: MORPHINE 4 MG/ML SYR ONE (00:14)
--- NOTE | 2024-06-22 05:38 | RAD REPORT ---
EXAM DESCRIPTION: Chest Pa And Lat (2 Views) CLINICAL HISTORY: 43 years Female TRAUMA COMPARISON: None TECHNIQUE: 2 view study of the chest was performed. FINDINGS: Cardiac size is within normal limits. Central vessels are moderately increased. No effusions bilaterally. Bilateral perihilar and infrahilar airspace opacities. No consolidation. No pneumothorax. IMPRESSION: Moderate central congestion. Bilateral perihilar and infrahilar atelectatic change versus infiltrate or pulmonary congestion. Electronically signed by: Poonam Ferrari MD 06/21/2024 11:41 PM CDT RP Due to temporary technical issues with the PACS/[employer] reporting system, reports are being shashank d by the in-house radiologist without review as a courtesy to ensure prompt reporting the interpreting radiologist is fully responsible for the content of the report. Transcribed Date/Time: 06/22/2024 5:38 AM
--- NOTE | 2024-06-22 05:38 | RAD REPORT ---
EXAM: XR Left Ribs, 2 Views CLINICAL HISTORY: PAIN TECHNIQUE: Frontal and oblique views of the left ribs. COMPARISON: No relevant prior studies available. FINDINGS: Lungs: Unremarkable as visualized. No consolidation. Pleural space: Unremarkable. No pneumothorax. Bones/joints: Unremarkable. No acute fracture. IMPRESSION: No acute injury. Electronically signed by: Raiza Abdalla MD 06/21/2024 11:41 PM CDT RP Due to temporary technical issues with the PACS/[employer] reporting system, reports are being shashank d by the in-house radiologist without review as a courtesy to ensure prompt reporting the interpreting radiologist is fully responsible for the content of the report. Transcribed Date/Time: 06/22/2024 5:38 AM
--- NOTE | 2024-06-22 05:38 | RAD REPORT ---
EXAM DESCRIPTION: Hip Left 2 View CLINICAL HISTORY: Pain;Swelling TECHNIQUE: 2 views of the left hip are submitted. COMPARISON: None available for comparison FINDINGS: Bones: No acute fracture or dislocation. Joints: Joint spaces are unremarkable. Soft tissues: No evidence of soft tissue pathology. IMPRESSION: No acute fracture or dislocation of the left hip. Electronically signed by: Tacos Mohan MD 06/21/2024 11:41 PM CDT RP Due to temporary technical issues with the PACS/[employer] reporting system, reports are being shashank d by the in-house radiologist without review as a courtesy to ensure prompt reporting the interpreting radiologist is fully responsible for the content of the report. Transcribed Date/Time: 06/22/2024 5:37 AM
[2024-06-23 10:27] VITALS: BP 118/81; TEMP 98; O2SAT 100
== END 2024-06-22 00:46 | disposition home or self-care (01) ==
LOC: ER 19:54
DX: M25.512 Pain in left shoulder (principal); M25.552 Pain in left hip; R07.89 Other chest pain; W18.2XXA Fall in (into) shower or empty bathtub, initial encounter
CPT/HCPCS: 81025; 71046; 73502; 71100; 96372; 99284; J1100

== ENCOUNTER 2024-10-17 19:51 | Emergency (ER) | payer MEDICAID ==
--- OUTSIDE RECORDS SUMMARY | 2024-10-17 20:03 | XMS REPORT | Continuity of Care Document ---
Author Name Unknown Address [address] [facility] [address] [place] [address] [facility] Address [address] [facility] [address] [place] [address] Care Team Providers Care Raveler Name Role Phone Faye Rothman Primary Care Physician [phone] Cinda Briceno Attending Clinician Unavailable PERCY ANDRADE Attending Clinician BROOKLYN Box Attending Clinician BROOKLYN Flores Attending Clinician Percy Cagle MD Attending Clinician [phone] Faye Rothman Attending Clinician [phone] Doctor Unassigned, Chinle Attending Clinician U navailable OGDEN, FAKEHA Attending Clinician Unavailable OGDEN, FAKEHA Attending Clinician Unavailable Isidro VASQUEZ, Fiona Attending Clinician [phone] Lab, Ang - Db Attending Clinician Unavailable JEFFERY, EMILY Attending Clinician Unavailable Devan VASQUEZ, [place] Attending Clinician +[phone] Marco Gayle MD Attending Clinician + [phone] MARCO GAYLE Attending Clinician Unavailable Nwdaniel GARCIA, Emily Attending Clinician + FAYE NAPOLES Attending Clinician Unavailable KRISSY DE DIOS Attending Clinician Unavailable DIONNE JAVIER Attending Clinician Unavailable JOSE FRANCISCO BETH Attending Clinician Unavailable Doctor Unassigned, Chinle Attending Clinician U navailable MAMTA LEMUS Attending Clinician Beatriz vailable Faye Rothman Attending Clinician +[phone] UNKNOWN, ATTENDING Attending Clinician Unavailab janie Andrade MD, Percy Jo Attending Clinician +[phone] LANIE LOPEZ Attending Clinician Unavailable LANIE LOPEZ Attending Clinician Unavailable KIZZY MACKEY Attending Clinician Unavail able KIZZY MACKEY Attending Clinician Unavail able Lab, Ang - Db Attending Clinician Unavailable TEJAL SULLIVAN Attending Clinician Unavailable Tejal Sullivan NP Attending Clinician [phone] Jose Bowen MD Attending Clinician +[phone] Jeffery GARCIA, Emily Attending Clinician + [phone] Marco Gayle MD Attending Clinician +[phone] PARKMOO MATIAS S Attending Clinician Unavailable Gibson Samayoaya S Attending Clinician + [phone] Pearl Echeverria RN Attending Clinician Unav ailable ARIES LEIGH Attending Clinician Unavailable Angelica VASQUEZ, Chema Bernstein Attending Clinician + DEBRA IRVIN Attending Clinician Unavailable Nancy Gutierrez Attending Clinician + Debra Irvin MD Attending Clinician +[phone] FIONA FELIX Attending Clinician Unavailable JOSE BOWEN Attending Clinician Unavailable Pob, Adc Lab Main Attending Clinician UnavailAries Hoover PA-C Attending Clinician [phone] NANCY CANNON Attending Clinician Unavailable CHEMA DOMINGUEZ Attending Clinician UnavailJosse CUETO, Maribell Attending Clinician Senia Esparza DO Attending Clinician [phone] Isidro VASQUEZ, Fiona Attending Clinician [phone] Zully VASQUEZ, Nicole Hsieh Attending Clinician FAYE Kahn Admitting Clinician Unavailable TEJAL SULLIVAN Admitting Clinician Unavailable MARY HARTMANSOL Admitting Clinician MOO Arthur Admitting Clinician Unavailable Payers Payer Name Policy Type Policy Number Effective Date Expirati on Date Source [facility] [id number] 2016 00:00:00 Problems Condition Name Condition Details Condition Category Status Onset Date Resolution Date Last Treatment Date Treating Clinician Comments Source Trichomona l vulvovagin itis Trichomona l vulvovagin itis Disease Active 5-04 00:00: 00 [facility] Vitiligo Vitiligo Disease Active 2022-02 0 00:00: 00 [facility] Eczema, unspecifie d type Eczema, unspecifie d type Disease Active 2022-02 0 00:00: 00 [facility] Hematoma Hematoma Disease Active - 00:00: 00 [facility] Bipolar disorder Bipolar disorder Disease Active 08-30 00:00: 00 [facility] CPAP (continuou s positive airway pressure) dependence CPAP (continuou s positive airway pressure) dependence Disease Active 08-30 00:00: 00 [facility] Diverticul osis of intestine without bleeding, unspecifie d intestinal tract location Diverticul osis of intestine without bleeding, unspecifie d intestinal tract location Disease Active 08-30 00:00: 00 [facility] Gastroesop hageal reflux disease Gastroesop hageal reflux disease Disease Active 08-30 00:00: 00 [facility] History of excision of intestinal structure History of excision of intestinal structure Disease Active 08-30 00:00: 00 [facility] Insomnia, unspecifie d type Insomnia, unspecifie d type Disease Active 08-30 00:00: 00 [facility] Migraine without status migrainosu s, not intractabl e, unspecifie d migraine type Migraine without status migrainosu s, not intractabl e, unspecifie d migraine type Disease Active 08-30 00:00: 00 [facility] Mixed anxiety and depressive disorder Mixed anxiety and depressive disorder Disease Active 08-30 00:00: 00 [facility] Obstructiv e sleep apnea Obstructiv e sleep apnea Disease Active 08-30 00:00: 00 [facility] Graves' disease Graves' disease Disease Active 08-02 00:00: 00 [facility] Abdominal pain, right lower quadrant Abdominal pain, right lower quadrant Disease Active 08-02 00:00: 00 Overview: Formattin g of this note might be different from the original. Added automatic ally from request for surgery [id number] [facility] Right ovarian cyst Right ovarian cyst Disease Active 08-02 00:00: 00 Overview: Formattin g of this note might be different from the original. Added automatic ally from request for surgery [id number] [facility] Pelvic adhesive disease Pelvic adhesive disease Disease Active 3-29 00:00: 00 [facility] Ballard disease Aston disease Disease Active 2-04 00:00: 00 [facility] Hydrosalpi nx Hydrosalpi nx Disease Active 03-09 00:00: 00 [facility] Cyst of maxillary sinus Cyst of maxillary sinus Disease Active 03-09 00:00: 00 [facility] Female infertilit y of unspecifie d origin Female infertilit y of unspecifie d origin Disease Active 03-09 00:00: 00 [facility] Irritable bowel syndrome with both constipati on and diarrhea Irritable bowel syndrome with both constipati on and diarrhea Disease Active 13 00:00: 00 [facility] Fibromyalg ia Fibromyalg ia Disease Active 2015-02 00:00: 00 [facility] Pain in joint, multiple sites Pain in joint, multiple sites Disease Active 2015-02 00:00: 00 [facility] History of adrenal insufficie ncy History of adrenal insufficie ncy Disease Active 2015-02 00:00: 00 [facility] Chronic fatigue Chronic fatigue Disease Active 2015-02 00:00: 00 [facility] Morbid obesity with body mass index (BMI) of 40.0 or higher Morbid obesity with body mass index (BMI) of 40.0 or higher Disease Active 2015-02 00:00: 00 [facility] 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 Disease Active 2015-02 00:00: 00 [facility] 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 Disease Active 2015-02 00:00: 00 [facility] Low serum cortisol level Low serum cortisol level Disease Active 10-31 00:00: 00 [facility] Postablati ve hypothyroi dism Postablati ve hypothyroi dism Disease Active 09-04 00:00: 00 [facility] Weight gain Weight gain Disease Active 09-04 00:00: 00 [facility] Weight gain Weight gain Disease Active 09-04 00:00: 00 [facility] Disorder of thyroid Disorder of thyroid Disease Active 10-19 00:00: 00 Overview: Formattin g of this note might be different from the original. 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 [employer]enger [employer] [facility] Migraine without status migrainosu s, not intractabl e, unspecifie d migraine type Migraine without status migrainosu s, not intractabl e, unspecifie d migraine type Problem Active [facility] Obstructiv e sleep apnea Obstructiv e sleep apnea Problem Active [facility] Gallstone Gallstone Problem Active [facility] Fibromyalg ia Fibromyalg ia Problem Active [facility] Chronic pain syndrome Chronic pain syndrome Problem Active [facility] Muscle weakness Muscle weakness Problem Active [facility] Insomnia, unspecifie d type Insomnia, unspecifie d type Problem Active [facility] Bipolar disorder Bipolar disorder Problem Active [facility] Hypothyroi dism, unspecifie d type Hypothyroi dism, unspecifie d type Problem Active [facility] Depression with anxiety Depression with anxiety Problem Active [facility] Foot pain Foot pain Problem Active [facility] CPAP (continuou s positive airway pressure) dependence CPAP (continuou s positive airway pressure) dependence Problem Active [facility] Diverticul osis of intestine without bleeding, unspecifie d intestinal tract location Diverticul osis of intestine without bleeding, unspecifie d intestinal tract location Problem Active [facility] Abdominal pain, unspecifie d abdominal location Abdominal pain, unspecifie d abdominal location Problem Active [facility] Irritable bowel syndrome with constipati on Irritable bowel syndrome with constipati on Problem Active [facility] Gastroesop hageal reflux disease, esophagiti s presence not specified Gastroesop hageal reflux disease, esophagiti s presence not specified Problem Active [facility] Status post hysterecto my Status post hysterecto my Disease Resolve d 7-11 00:00: 00 2023-06-25 00:00:00 2023-06-25 10:13:59 [facility] Anogenital warts in female Anogenital warts in female Disease Resolve d 2017-02 0-02 00:00: 00 2022-08-02 00:00:00 2022-08-02 09:13:38 [facility] BV (bacterial vaginosis) BV (bacterial vaginosis) Disease Resolve d 2016-0 1-17 00:00: 00 2022-08-02 00:00:00 2022-08-02 09:13:38 [facility] Morbid obesity with body mass index of 50 or higher Morbid obesity with body mass index of 50 or higher Disease Resolve d 2015-02 00:00: 00 2021-01-16 00:00:00 2021-01-16 14:16:13 [facility] Allergies, Adverse Reactions, Alerts Allergy Name Allergy Type Status Severity Reaction(s) Onset Date Inactive Date Treating Clinician Comments Source LATEX DRUG INGREDI Active High ITCHING 2015-02 0 00:00: 00 [facility] Latex Propensi ty to adverse reaction s to drug Active Itching 2015-02 00:00: 00 [facility] Social History Social Habit Start Date Stop Date Quantity Comments Source [facility] Not [facility] Alcoholic beverage intake 2023-12-05 00:00:00 2023-12-05 00:00:00 0 /d [facility] Tobacco use and exposure 2023-10-11 00:00:00 2023-10-11 00:00:00 Smokeless tobacco non-user [facility] History of Social function 2023-07-19 00:00:00 2023-07-19 00:00:00 [facility] Alcohol intake 2023-06-25 00:00:00 2023-06-25 00:00:00 0 /d [facility] Exposure to SARS-CoV-2 (event) 2022-07-23 00:00:00 2022-08-02 07:35:00 Not sure [facility] Tobacco Comment 2022-08-02 00:00:00 2022-08-02 00:00:00 Pt smokes 1 pack a day total of 20 cigarettes daily [facility] Cigarettes smoked current (pack per day) - Reported 2017-05-27 00:00:00 2017-05-27 00:00:00 [facility] Cigarette pack-years 2017-05-27 00:00:00 2017-05-27 00:00:00 [facility] History of tobacco use 2000-02-26 00:00:00 2005-02-25 00:00:00 Cigarette Smoker [facility] Sex assigned at 1980 00:00:00 1980 00:00:00 [facility] Smoking Status Start Date Stop Date Source Smokes tobacco daily 2023-10-11 00:00:00 [facility] Ex-smoker 2017-05-27 00:00:00 2017-05-27 [facility] Medications Ordered Medication Name Filled Medication Name Start Date Stop Date Current Medication? Ordering Clinician Indication Dosage Frequency Signature (SIG) Comments Components Source levothyroxi ne 125 mcg tablet 2023-02 00:00: 00 Yes [id number] 125ug Take 1 tablet by mouth every morning. [facility] phentermine 37.5 mg capsule 2023-02 00:00: 00 Yes [id number] 104 37.5mg Take 1 capsule by mouth every morning. [facility] topiramate 50 mg tablet 2023-02 00:00: 00 01-12 00:00 :00 No [id number] 75mg Take 1.5 tablets by mouth in the morning. [facility] metroNIDAZO LE (FLAGYL) 500 mg tablet 2023-02 00:00: 00 Yes [id number] 500mg Take 1 tablet by mouth every 12 (twelve) hours. [facility] levothyroxi ne 125 mcg tablet 10-11 00:00: 00 01-12 00:00 :00 No [id number] 125ug Take 1 tablet by mouth every [...] take it as soon as you remember. [facility] topiramate 25 mg tablet 10-10 00:00: 00 01-12 00:00 :00 No [id number] 50mg Take 2 tablets by mouth in the morning. [facility] levothyroxi ne 125 mcg tablet 10-01 00:00: 00 10-11 00:00 :00 No [id number] 125ug Take 1 tablet by mouth every morning. MUST BE SEEN FOR FURTHER REFILLS [facility] metroNIDAZO LE (FLAGYL) 500 mg tablet 06-28 00:00: 00 Yes [id number] 500mg Take 1 tablet by mouth every 12 (twelve) hours. [facility] oxcarbazepi ne (TRILEPTAL ORAL) 06-24 09:25: 16 Yes Take by mouth. [facility] fluconazole 150 mg tablet 06-24 00:00: 00 06-25 04:59 :00 No [id number] 150mg Take 1 tablet by mouth once now for 1 dose. [facility] levothyroxi ne 125 mcg tablet 06-23 00:00: 00 10-01 00:00 :00 No [id number] 125ug Take 1 tablet by mouth every morning. Must get labs done. [facility] triamcinolo ne acetonide 0.1 % ointment 06-12 00:00: 00 Yes [id number] Apply to area(s) 2 (two) times daily. [facility] levothyroxi ne 125 mcg tablet 05-26 00:00: 00 06-23 00:00 :00 No [id number] 125ug Take 1 tablet by mouth every morning. [facility] hydrocortis one 10 mg tablet 03-04 00:00: 00 Yes [id number] Take 1 tablet in the morning and half tablet at night [facility] hydrocortis one sod succ (SOLU-AMY F) 100 mg injection 03-04 00:00: 00 Yes [id number] 100mg 2 mL by Intramuscu lar route as needed (for when patient is unconsciou s). [facility] Syringe, Disposable, 3 mL Syrg 03-04 00:00: 00 Yes [id number] Use as directed once [facility] Needle, Disp, 21 G 21 gauge x 1 1/2" Ndle 03-04 00:00: 00 Yes [id number] Use as directed [facility] phentermine 37.5 mg capsule 03-04 00:00: 00 01-12 00:00 :00 No [id number] 104 37.5mg Take 1 capsule by mouth every morning. [facility] topiramate 25 mg tablet 03-04 00:00: 00 10-10 00:00 :00 No [id number] 50mg Take 2 tablets by mouth in the morning. [facility] topiramate 25 mg tablet 2022-02 00:00: 00 03-04 00:00 :00 No [id number] 50mg Take 2 tablets by mouth in the morning. [facility] triamcinolo ne acetonide 0.1 % ointment 2022-02 00:00: 00 06-10 00:00 :00 No [id number] Apply to area(s) 2 (two) times daily. [facility] LEVOTHYROXI NE 125 mcg tablet 2022-02 00:00: 00 05-25 00:00 :00 No [id number] 125ug TAKE 1 TABLET BY MOUTH EVERY DAY IN THE MORNING [facility] rOPINIRole 1 mg tablet 2022-02 0-05 16:29: 29 11-29 00:00 :00 No 1mg Take 1 tablet by mouth at bedtime. [facility] proMETHazin e 25 mg tablet 2022-02 0-05 16:29: 16 11-29 00:00 :00 No Take by mouth as needed. [facility] FENTanyl 25 mcg/hr patch 2022-02 0-05 16:29: 00 11-29 00:00 :00 No 1{patch } Apply 1 Patch to skin every 72 (seventy-t wo) hours. [facility] phentermine 37.5 mg capsule 8- 00:00: 00 03-04 00:00 :00 No [id number] 104 37.5mg Take 1 capsule by mouth every morning. [facility] topiramate 25 mg tablet 10-22 00:00: 00 01-26 00:00 :00 No [id number] 50mg Take 2 tablets by mouth in the morning. [facility] levothyroxi ne 125 mcg tablet 10-15 00:00: 00 12-02 00:00 :00 No [id number] 125ug Take 1 tablet by mouth every morning. [facility] hydrocortis one sod succ (CORTEF) injection 100 mg 09-17 08:45: 00 09-17 08:04 :00 No 100mg 100 mg, Intravenou s, ONCE, 1 dose, On Sat09/17/22 at 0345, 2 mL [facility] ondansetron (ZOFRAN (PF)) injection 4 mg 09-17 07:54: 00 09-17 07:55 :00 No 4mg 4 mg, Slow IV Push, ONCE, 1 dose, On Sat09/17/22 at 0300, MARSHALL [facility] dicyclomine (BENTYL) injection 20 mg 09-17 07:45: 00 09-17 07:47 :00 No 20mg 20 mg, Intramuscu lar, ONCE NOW, 1 dose, On Sat09/17/22 at 0245, Routine [facility] alum-mag hydroxide-s imeth (MAALOX PLUS / MAG-AL PLUS) 200-200-20 mg/5 mL suspension 30 mL 09-17 07:00: 00 09-17 07:52 :00 No 30mL 30 mL, Oral, ONCE, 1 dose, On Sat09/17/22 at 0200, MARSHALL [facility] morpHINE (2 mg/mL) injection 2 mg 09-17 07:00: 00 09-17 07:45 :00 No 2mg 2 mg, Slow IV Push, ONCE, 1 dose, On Sat09/17/22 at 0200, STAT [facility] NaCl 0.9% (NS) bolus infusion 500 mL 09-17 06:00: 00 09-17 07:55 :00 No 500mL at 999 mL/hr, 500 mL, IV Infusion, ONCE, 1 dose, On Sat09/17/22 at 0100, STAT [facility] iopamidol (ISOVUE 370-500 mL) injection 75 mL 09-17 06:00: 00 09-17 05:11 :00 No [id number] 75mL 75 mL, Intravenou s, ONCE, 1 dose, On Sat09/17/22 at 0100, Routine [facility] ketorolac (TORADOL) injection 30 mg 09-17 04:45: 00 09-17 04:47 :00 No 30mg 30 mg, Slow IV Push, ONCE, 1 dose, On Sat09/16/22 at 2345, Routine [facility] diazePAM (VALIUM) injection 5 mg 09-17 03:45: 00 09-17 04:45 :00 No 5mg 5 mg, Slow IV Push, ONCE, 1 dose, On Sat09/16/22 at 2245, STAT [facility] FENTanyl 25 mcg/hr patch 09-14 09:30: 16 Yes 1{patch } Apply 1 Patch to skin every 72 (seventy-t wo) hours. [facility] proMETHazin e 25 mg tablet 09-14 09:30: 16 Yes Take by mouth as needed. [facility] WEGOVY 0.25 mg/0.5 mL PnIj SC injection 09-06 00:00: 00 10-22 00:00 :00 No [id number] .25mg INJECT 0.25 MG UNDER THE SKIN WEEKLY. [facility] levothyroxi ne 125 mcg tablet 09-05 00:00: 00 10-15 00:00 :00 No [id number] 125ug Take 1 tablet by mouth every morning. [facility] topiramate 25 mg tablet 09-04 16:05: 41 09-04 00:00 :00 No Take by mouth daily. [facility] rizatriptan (MAXALT) 10 mg tablet 09-04 00:00: 00 Yes [id number] 10mg Take 1 tablet by mouth as needed for Migraine. May repeat in 2 hours if needed [facility] topiramate 25 mg tablet 09-04 00:00: 00 10-22 00:00 :00 No [id number] 50mg Take 2 tablets by mouth in the morning. [facility] semaglutide , weight loss, (WEGOVY) 0.25 mg/0.5 mL PnIj SC injection 09-04 00:00: 00 09-06 00:00 :00 No [id number] .25mg inject 0.25 mg under the skin weekly. [facility] proMETHazin e 25 mg tablet 08-30 16:31: 42 Yes Take by mouth as needed. [facility] HYDROCORTIS ONE 10 mg tablet 08-25 00:00: 00 03-04 00:00 :00 No [id number] TAKE 1 TABLET BY MOUTH TWICE A DAY [facility] lactated ringers IV infusion 1,000 mL 08-20 14:45: 00 Yes 1000mL at 75 mL/hr, 1,000 mL, IV Infusion, CONTINUOUS , Starting on Sat08/20/22 at 0945, Until Discontinu ed, Routine, PACU [facility] HYDROcodone -acetaminop hen (NORCO 5) 5-325 mg tablet 1 tablet 08-20 14:42: 27 Yes 1{tbl} 1 tablet, Oral, PRN, 1 dose, Starting on Sat08/20/22 at 0942, Until Discontinu ed, Routine, Pain (scale 4-6), DSU Recovery [facility] ibuprofen (IBU) tablet 800 mg 08-20 14:42: 27 Yes 800mg 800 mg, Oral, PRN, 1 dose, Starting on Sat08/20/22 at 0942, Until Discontinu ed, Routine, Pain (scale 1-3), DSU Recovery [facility] HYDROcodone -acetaminop hen (NORCO) 10-325 mg tablet 1 tablet 08-20 14:42: 27 08-20 15:34 :00 No 1{tbl} 1 tablet, Oral, PRN, 1 dose, Starting on Sat08/20/22 at 0942, Until Discontinu ed, Routine, Pain (scale 7-10), DSU Recovery [facility] ondansetron (ZOFRAN (PF)) injection 4 mg 08-20 14:42: 14 Yes 4mg 4 mg, Slow IV Push, PRN, 1 dose, Starting on Sat08/20/22 at 0942, Until Discontinu ed, Routine, Nausea and Vomiting (N/V), PACU [facility] FENTanyl PF (SUBLIMAZE (PF)) injection 25 mcg 08-20 14:42: 14 08-20 15:23 :00 No 25ug 25 mcg, Slow IV Push, Q5MIN PRN, 4 doses, Starting on Sat08/20/22 at 0942, Until Sat08/20/22 at 1023, Routine, Pain (scale 4-6), PACU [facility] bupivacaine (preserv free) 0.5% (SENSORCAIN E MPF) 0.5 % (5 mg/mL) injection 08-20 13:00: 00 08-20 14:46 :23 No PRN, Starting on Sat08/20/22 at 0800, Until Sat08/20/22 at 0946, Routine, Intra-op [facility] sodium chloride 0.9 % irrigation solution 08-20 13:00: 00 08-20 14:46 :23 No PRN, Starting on Sat08/20/22 at 0800, Until Sat08/20/22 at 0946, Intra-op [facility] lactated ringers IV infusion 1,000 mL 08-20 12:15: 00 Yes 1000mL at 100 mL/hr, 1,000 mL, IV Infusion, CONTINUOUS , Starting on Sat08/20/22 at 0715, Until Discontinu ed, Routine, PACU [facility] FENTanyl 25 mcg/hr patch 08-20 11:26: 02 Yes 1{patch } Apply 1 Patch to skin every 72 (seventy-t wo) hours. [facility] rOPINIRole 1 mg tablet 08-20 11:26: 02 Yes 1mg Take 1 tablet by mouth at bedtime. [facility] topiramate 25 mg tablet 08-20 11:26: 02 Yes Take by mouth daily. [facility] proMETHazin e 25 mg tablet 08-20 11:26: 02 Yes Take by mouth as needed. [facility] oxcarbazepi ne (TRILEPTAL ORAL) 08-20 11:26: 02 08-20 00:00 :00 No 40mg Take by mouth. [facility] traMADoL 50 mg tablet 08-20 11:25: 59 08-20 00:00 :00 No Take by mouth as needed. [facility] OXCARBAZEPI NE (TRILEPTAL ORAL) 08-20 09:34: 50 08-20 00:00 :00 No 300mg Take 300 mg by mouth in the morning and 300 mg in the evening. [facility] ibuprofen 800 mg tablet 08-20 00:00: 00 11-29 00:00 :00 No [id number] 800mg Take 1 tablet by mouth every 6 (six) hours as needed for Pain (scale 1-3). [facility] HYDROcodone -acetaminop hen (NORCO) 7.5-325 mg per tablet 08-20 00:00: 00 08-28 04:59 :00 No [id number] 1{tbl} Take 1 tablet by mouth every 6 (six) hours as needed for Pain for up to 7 days. Indication s: acute pain [facility] HYDROcodone -acetaminop hen 5-325 mg tablet 08-20 00:00: 00 08-20 00:00 :00 No [id number] 1{tbl} Take 1 tablet by mouth every 6 (six) hours as needed for Pain (scale 4-6) or Pain (scale 7-10). Indication s: acute pain [facility] levothyroxi ne 150 mcg tablet 08-17 00:00: 00 09-05 00:00 :00 No [id number] 150ug Take 1 tablet by mouth every morning. Please wait for 30 minutes to an hour before you eat or drink anything. [facility] OXCARBAZEPI NE (TRILEPTAL ORAL) 08-09 10:09: 34 Yes 300mg Take 300 mg by mouth in the morning and 300 mg in the evening. [facility] topiramate 25 mg tablet 08-09 10:09: 34 Yes Take by mouth daily. [facility] proMETHazin e 25 mg tablet 08-09 10:09: 34 Yes Take by mouth as needed. [facility] traMADoL 50 mg tablet 08-09 10:09: 34 Yes Take by mouth as needed. [facility] CITALOPRAM HYDROBROMID E (CELEXA ORAL) 08-09 09:52: 09 Yes 40mg Take 40 mg by mouth in the morning. [facility] FENTanyl 25 mcg/hr patch 08-09 09:52: 09 Yes 1{patch } Apply 1 Patch to skin every 72 (seventy-t wo) hours. [facility] rOPINIRole 1 mg tablet 08-09 09:52: 09 Yes 1mg Take 1 tablet by mouth at bedtime. [facility] ibuprofen 800 mg tablet 08-02 00:00: 00 08-20 00:00 :00 No [id number] 800mg Take 1 tablet by mouth every 8 (eight) hours as needed for Pain (scale 4-6). [facility] ketorolac (TORADOL) injection 30 mg 07-29 04:00: 00 07-29 02:59 :00 No 30mg 30 mg, Slow IV Push, ONCE, 1 dose, On 07/28/22 at 2300, Routine [facility] morpHINE (4 mg/mL) injection 4 mg 07-29 02:00: 00 07-29 01:53 :00 No 4mg 4 mg, Slow IV Push, ONCE, 1 dose, On 07/28/22 at 2100, STAT [facility] morpHINE (4 mg/mL) injection 4 mg 07-29 00:30: 00 07-29 00:17 :00 No 4mg 4 mg, Slow IV Push, ONCE, 1 dose, On 07/28/22 at 1930, STAT [facility] iopamidol (ISOVUE 370-500 mL) injection 90 mL 07-29 00:00: 00 07-29 00:00 :00 No [id number] 90mL 90 mL, Intravenou s, ONCE, 1 dose, On 07/28/22 at 1900, Routine [facility] ondansetron (ZOFRAN (PF)) injection 4 mg 07-28 22:15: 00 07-28 22:22 :00 No 4mg 4 mg, Slow IV Push, ONCE, 1 dose, On 07/28/22 at 1715, MARSHALL [facility] morpHINE (4 mg/mL) injection 4 mg 07-28 22:15: 00 07-28 22:27 :00 No 4mg 4 mg, Slow IV Push, ONCE, 1 dose, On 07/28/22 at 1715, STAT [facility] cefpodoxime 100 mg tablet 07-28 00:00: 00 08-05 04:59 :00 No [id number] 100mg Take 1 tablet by mouth in the morning and 1 tablet in the evening. Do all this for 7 days. [facility] LATUDA 20 mg tablet 07-27 00:00: 00 Yes Take by mouth at bedtime. [facility] TOPIRAMATE 25 mg tablet 5-31 00:00: 00 09-04 00:00 :00 No [id number] TAKE 1 TABLET BY MOUTH EVERY DAY IN THE MORNING [facility] atomoxetine 60 mg capsule 5-28 00:00: 00 Yes 60mg Take 1 capsule by mouth in the morning and 1 capsule in the evening. [facility] cloNIDine 0.1 mg tablet - 00:00: 00 Yes Take by mouth as needed. [facility] HYDROcodone -acetaminop hen 10-325 mg tablet 4-14 00:00: 00 Yes 1{tbl} Take 1 tablet by mouth in the morning and 1 tablet in the evening. [facility] phentermine 37.5 mg capsule 1-04 00:00: 00 08-20 00:00 :00 No [id number] 37.5mg Take 1 capsule by mouth every morning. [facility] levothyroxi ne 175 mcg tablet 1-04 00:00: 00 08-17 00:00 :00 No [id number] 175ug Take 1 tablet by mouth every morning. TAKE 1 TABLET DAILY SATURDAY THROUGH SATURDAY, AND 1/2 TABLET ON SATURDAY [facility] topiramate 25 mg tablet 1-04 00:00: 00 07-25 00:00 :00 No [id number] 25mg Take 1 tablet by mouth in the morning. [facility] phentermine 37.5 mg capsule 2021-02 0- 00:00: 00 02-28 00:00 :00 No [id number] 37.5mg Take 1 capsule by mouth every morning. [facility] topiramate 25 mg tablet 2021-02 0-03 00:00: 00 02-28 00:00 :00 No [id number] 25mg Take 1 tablet by mouth in the morning. [facility] semaglutide , weight loss, (WEGOVY) 0.25 mg/0.5 mL PnIj SC injection 2021-02 0-03 00:00: 00 12-20 00:00 :00 No [id number] .25mg inject 0.25 mg under the skin weekly. [facility] topiramate 25 mg tablet 30 00:00: 11-27 00:00 :00 No [id number] TAKE 1 TABLET BY MOUTH EVERY DAY [facility] PHENTERMINE 37.5 mg capsule 10-22 00:00: 00 11-27 00:00 :00 No [id number] TAKE 1 CAPSULE BY MOUTH EVERY DAY IN THE MORNING [facility] levothyroxi ne 175 mcg tablet 09-23 00:00: 00 02-28 00:00 :00 No [id number] TAKE 1 TABLET DAILY SATURDAY THROUGH SATURDAY, AND 1/2 TABLET ON SATURDAY. [facility] hydrocortis one sod succ (SOLU-AMY F) 100 mg injection 08-23 00:00: 00 03-04 00:00 :00 No [id number] 100mg 2 mL by Intramuscu lar route as needed (for when patient is unconsciou s). [facility] hydrocortis one 10 mg tablet 08-23 00:00: 00 08-25 00:00 :00 No [id number] 10mg Take 1 tablet by mouth 2 (two) times daily. [facility] topiramate 25 mg tablet 08-04 00:00: 00 11-24 00:00 :00 No [id number] 25mg Take 1 tablet by mouth daily. [facility] PHENTERMINE 37.5 mg capsule 08-01 00:00: 00 10-22 00:00 :00 No [id number] TAKE 1 CAPSULE BY MOUTH EVERY DAY IN THE MORNING [facility] LEVOTHYROXI NE 175 mcg tablet 3-23 00:00: 00 09-23 00:00 :00 No [id number] TAKE 1 TABLET DAILY SATURDAY THROUGH SATURDAY, AND 1/2 TABLET ON SATURDAY. [facility] norethindro ne 0.35 mg tablet 2020-02- 00:00: 00 08-20 00:00 :00 No [id number] 1{tbl} Take 1 tablet by mouth daily. [facility] oxcarbazepi ne (TRILEPTAL ORAL) 2020-02 13:09: 42 Yes 40mg Take by mouth. [facility] FENTanyl 25 mcg/hr patch 2020-02 13:09: 42 Yes 1{patch } Apply 1 Patch to skin every 72 (seventy-t wo) hours. [facility] rOPINIRole 1 mg tablet 2020-02 13:09: 42 Yes 1mg Take 1 mg by mouth at bedtime. [facility] hydrocortis one 10 mg tablet 04-27 00:00: 00 07-09 00:00 :00 No [id number] TAKE 1 AND 1/2 TABLETS BY MOUTH EVERY MORNING AND 1 TABLET AT 2:00 PM [facility] LEVOTHYROXI NE 175 mcg tablet 04-24 00:00: 00 07-23 00:00 :00 No [id number] TAKE 1 TABLET BY MOUTH SATURDAY-Sat AND HALF A TABLET ON SUNDAYS [facility] phentermine 37.5 mg capsule 10-31 00:00: 00 05-19 00:00 :00 No [id number] 37.5mg Take 1 capsule by mouth every morning. [facility] topiramate 25 mg tablet 10-31 00:00: 00 05-19 00:00 :00 No [id number] 25mg Take 1 tablet by mouth daily. [facility] Nitrofurant oin&Nit. Macrocryst 100 mg capsule 18 00:00: 00 07-23 00:00 :00 No [id number] 100mg Take 1 capsule by mouth 2 (two) times daily. [facility] Movantik Movantik 04-22 00:00: 00 08-20 00:00 :00 No Cinda Millender 1 tablet in the morning [facility] Pantoprazol e Sodium Pantoprazol e Sodium 831 00:00: 00 Yes Cinda Millender 1 tablet [facility] Chlordiazep oxide-Clidi nium Chlordiazep oxide-Clidi nium 8-31 00:00: 00 08-20 00:00 :00 No Cinda Millender 1 capsule [facility] ondansetron 4 mg disintegrat ing tablet 2016-02 00:00: 00 08-20 00:00 :00 No [facility] SUMAtriptan 50 mg tablet 04-26 00:00: 00 01-06 00:00 :00 No [facility] LYRICA 100 mg capsule 2015-02 00:00: 00 03-04 00:00 :00 No [facility] hydrocortis one sod succ (SOLU-AMY F) 100 mg injection 2015-02 00:00: 00 05-13 17:07 :44 No 100mg 2 mL by Intramuscu lar route as needed (for when patient is unconsciou s). [facility] SAVELLA 50 mg tablet 2015-02 00:00: 00 03-04 00:00 :00 No 25mg Take 0.5 tablets by mouth in the morning and 0.5 tablets in the evening. [facility] pantoprazol e (PROTONIX) 40 mg EC tablet 11-15 00:00: 00 07-23 00:00 :00 No 40mg Take 40 mg by mouth daily. [facility] Neurontin Neurontin Yes Cinda Millender 1 capsule [facility] Amitriptyli ne HCl Amitriptyli ne HCl Yes Cinda Millender 1 tablet [facility] Topamax Topamax Yes Cinda Millender 1 tablet [facility] Zofran Zofran Yes Cinda Millender 1 tablet [facility] Ultram Ultram Yes Cinda Millender 1 tablet as needed [facility] Lyrica Lyrica Yes Cinda Millender 1 capsule [facility] Robaxin Robaxin Yes Cinda Millender 1.5 tablets [facility] Trazodone HCl Trazodone HCl Yes Cinda Millender 1 tablet at bedtime as needed [facility] Protonix Protonix Yes Cinda Millender 1 tablet [facility] Savella Savella Yes Cinda Millender 1 tablet [facility] Synthroid Synthroid Yes Cinda Millender 1 tablet on an empty stomach in the morning [facility] Imitrex Imitrex Yes Cinda Millender 1 tablet as needed [facility] Citalopram Hydrobromid e Citalopram Hydrobromid e Yes Cinda Millender 1 tablet [facility] Clonazepam Clonazepam Yes Cinda Millender 1 tablet [facility] Cyclobenzap rine HCl Cyclobenzap rine HCl Yes Cinda Millender 1 tablet as needed [facility] Furosemide Furosemide Yes Cinda Millender 1 tablet as needed for leg swelling [facility] Effexor XR Effexor XR Yes Cinda Millender 1 capsule with food [facility] Immunizations Ordered Immunization Name Filled Immunization Name Date Status Comments Source Influenza Virus Vaccine Quad IM, Preserv and ABX Free 6 MO-64 YRS (FLUCELVAX) 2023-03-04 00:00:00 Completed [facility] Influenza Virus Vaccine Quad IM, Preserv and ABX Free 6 MO-64 YRS (FLUCELVAX) 2023-03-04 00:00:00 Completed [facility] Influenza Virus Vaccine Quad IM, Preserv and ABX Free 6 MO-64 YRS 2021-01-05 00:00:00 Completed [facility] Pneumococcal 13 Conjugate, PCV13 (Prevnar 13) 2021-01-05 00:00:00 Completed [facility] TDAP 2021-01-05 00:00:00 Completed [facility] Influenza Virus Vaccine Quad IM, Preserv and ABX Free 6 MO-64 YRS 2021-01-05 00:00:00 Completed [facility] Pneumococcal 13 Conjugate, PCV13 (Prevnar 13) 2021-01-05 00:00:00 Completed [facility] TDAP 2021-01-05 00:00:00 Completed [facility] Influenza Virus Vaccine Quad IM, Preserv and ABX Free 6 MO-64 YRS 2021-01-05 00:00:00 Completed [facility] Pneumococcal 13 Conjugate, PCV13 (Prevnar 13) 2021-01-05 00:00:00 Completed [facility] TDAP 2021-01-05 00:00:00 Completed [facility] Influenza Virus Vaccine Quad IM, Preserv and ABX Free 6 MO-64 YRS 2021-01-05 00:00:00 Completed [facility] Pneumococcal 13 Conjugate, PCV13 (Prevnar 13) 2021-01-05 00:00:00 Completed [facility] TDAP 2021-01-05 00:00:00 Completed [facility] Influenza Virus Vaccine Quad IM, Preserv and ABX Free 6 MO-64 YRS 2021-01-05 00:00:00 Completed [facility] Pneumococcal 13 Conjugate, PCV13 (Prevnar 13) 2021-01-05 00:00:00 Completed [facility] TDAP 2021-01-05 00:00:00 Completed [facility] Influenza Virus Vaccine Quad IM, Preserv and ABX Free 6 MO-64 YRS 2021-01-05 00:00:00 Completed [facility] Pneumococcal 13 Conjugate, PCV13 (Prevnar 13) 2021-01-05 00:00:00 Completed [facility] TDAP 2021-01-05 00:00:00 Completed [facility] Influenza Virus Vaccine Quad IM, Preserv and ABX Free 6 MO-64 YRS 2021-01-05 00:00:00 Completed [facility] Pneumococcal 13 Conjugate, PCV13 (Prevnar 13) 2021-01-05 00:00:00 Completed [facility] TDAP 2021-01-05 00:00:00 Completed [facility] Influenza Virus Vaccine Quad IM, Preserv and ABX Free 6 MO-64 YRS 2021-01-05 00:00:00 Completed [facility] Pneumococcal 13 Conjugate, PCV13 (Prevnar 13) 2021-01-05 00:00:00 Completed [facility] TDAP 2021-01-05 00:00:00 Completed [facility] Influenza Virus Vaccine Quad IM, Preserv and ABX Free 6 MO-64 YRS 2021-01-05 00:00:00 Completed [facility] Pneumococcal 13 Conjugate, PCV13 (Prevnar 13) 2021-01-05 00:00:00 Completed [facility] TDAP 2021-01-05 00:00:00 Completed [facility] Influenza Virus Vaccine Quad IM, Preserv and ABX Free 6 MO-64 YRS 2021-01-05 00:00:00 Completed [facility] Pneumococcal 13 Conjugate, PCV13 (Prevnar 13) 2021-01-05 00:00:00 Completed [facility] TDAP 2021-01-05 00:00:00 Completed [facility] Influenza Virus Vaccine Quad IM, Preserv and ABX Free 6 MO-64 YRS 2021-01-05 00:00:00 Completed [facility] Pneumococcal 13 Conjugate, PCV13 (Prevnar 13) 2021-01-05 00:00:00 Completed [facility] TDAP 2021-01-05 00:00:00 Completed [facility] Influenza Virus Vaccine Quad IM, Preserv and ABX Free 6 MO-64 YRS 2021-01-05 00:00:00 Completed [facility] Pneumococcal 13 Conjugate, PCV13 (Prevnar 13) 2021-01-05 00:00:00 Completed [facility] TDAP 2021-01-05 00:00:00 Completed [facility] Influenza Virus Vaccine Quad IM, Preserv and ABX Free 6 MO-64 YRS 2021-01-05 00:00:00 Completed [facility] Pneumococcal 13 Conjugate, PCV13 (Prevnar 13) 2021-01-05 00:00:00 Completed [facility] TDAP 2021-01-05 00:00:00 Completed [facility] Influenza Virus Vaccine Quad IM, Preserv and ABX Free 6 MO-64 YRS 2021-01-05 00:00:00 Completed [facility] Pneumococcal 13 Conjugate, PCV13 (Prevnar 13) 2021-01-05 00:00:00 Completed [facility] TDAP 2021-01-05 00:00:00 Completed [facility] Influenza Virus Vaccine Quad IM, Preserv and ABX Free 6 MO-64 YRS 2021-01-05 00:00:00 Completed [facility] Pneumococcal 13 Conjugate, PCV13 (Prevnar 13) 2021-01-05 00:00:00 Completed [facility] TDAP 2021-01-05 00:00:00 Completed [facility] Influenza Virus Vaccine Quad IM, Preserv and ABX Free 6 MO-64 YRS 2021-01-05 00:00:00 Completed [facility] Pneumococcal 13 Conjugate, PCV13 (Prevnar 13) 2021-01-05 00:00:00 Completed [facility] TDAP 2021-01-05 00:00:00 Completed [facility] Influenza Virus Vaccine Quad IM, Preserv and ABX Free 6 MO-64 YRS 2021-01-05 00:00:00 Completed [facility] Pneumococcal 13 Conjugate, PCV13 (Prevnar 13) 2021-01-05 00:00:00 Completed [facility] TDAP 2021-01-05 00:00:00 Completed [facility] Influenza Virus Vaccine Quad IM, Preserv and ABX Free 6 MO-64 YRS 2021-01-05 00:00:00 Completed [facility] Pneumococcal 13 Conjugate, PCV13 (Prevnar 13) 2021-01-05 00:00:00 Completed [facility] TDAP 2021-01-05 00:00:00 Completed [facility] Influenza Virus Vaccine Quad IM, Preserv and ABX Free 6 MO-64 YRS 2021-01-05 00:00:00 Completed [facility] Pneumococcal 13 Conjugate, PCV13 (Prevnar 13) 2021-01-05 00:00:00 Completed [facility] TDAP 2021-01-05 00:00:00 Completed [facility] Influenza Virus Vaccine Quad IM, Preserv and ABX Free 6 MO-64 YRS 2021-01-05 00:00:00 Completed [facility] Pneumococcal 13 Conjugate, PCV13 (Prevnar 13) 2021-01-05 00:00:00 Completed [facility] TDAP 2021-01-05 00:00:00 Completed [facility] Influenza Virus Vaccine Quad IM, Preserv and ABX Free 6 MO-64 YRS 2021-01-05 00:00:00 Completed [facility] Pneumococcal 13 Conjugate, PCV13 (Prevnar 13) 2021-01-05 00:00:00 Completed [facility] TDAP 2021-01-05 00:00:00 Completed [facility] Influenza Virus Vaccine Quad IM, Preserv and ABX Free 6 MO-64 YRS 2021-01-05 00:00:00 Completed [facility] Pneumococcal 13 Conjugate, PCV13 (Prevnar 13) 2021-01-05 00:00:00 Completed [facility] TDAP 2021-01-05 00:00:00 Completed [facility] Influenza Virus Vaccine Quad IM, Preserv and ABX Free 6 MO-64 YRS 2021-01-05 00:00:00 Completed [facility] Pneumococcal 13 Conjugate, PCV13 (Prevnar 13) 2021-01-05 00:00:00 Completed [facility] TDAP 2021-01-05 00:00:00 Completed [facility] Influenza Virus Vaccine Quad IM, Preserv and ABX Free 6 MO-64 YRS 2021-01-05 00:00:00 Completed [facility] Pneumococcal 13 Conjugate, PCV13 (Prevnar 13) 2021-01-05 00:00:00 Completed [facility] TDAP 2021-01-05 00:00:00 Completed [facility] Influenza Virus Vaccine Quad IM, Preserv and ABX Free 6 MO-64 YRS 2021-01-05 00:00:00 Completed [facility] Pneumococcal 13 Conjugate, PCV13 (Prevnar 13) 2021-01-05 00:00:00 Completed [facility] TDAP 2021-01-05 00:00:00 Completed [facility] Influenza Virus Vaccine Quad IM, Preserv and ABX Free 6 MO-64 YRS 2021-01-05 00:00:00 Completed [facility] Pneumococcal 13 Conjugate, PCV13 (Prevnar 13) 2021-01-05 00:00:00 Completed [facility] TDAP 2021-01-05 00:00:00 Completed [facility] Influenza Virus Vaccine Quad IM, Preserv and ABX Free 6 MO-64 YRS 2021-01-05 00:00:00 Completed [facility] Pneumococcal 13 Conjugate, PCV13 (Prevnar 13) 2021-01-05 00:00:00 Completed [facility] TDAP 2021-01-05 00:00:00 Completed [facility] Influenza Virus Vaccine Quad IM, Preserv and ABX Free 6 MO-64 YRS 2021-01-05 00:00:00 Completed [facility] Pneumococcal 13 Conjugate, PCV13 (Prevnar 13) 2021-01-05 00:00:00 Completed [facility] TDAP 2021-01-05 00:00:00 Completed [facility] Influenza Virus Vaccine Quad IM, Preserv and ABX Free 6 MO-64 YRS 2021-01-05 00:00:00 Completed [facility] Pneumococcal 13 Conjugate, PCV13 (Prevnar 13) 2021-01-05 00:00:00 Completed [facility] TDAP 2021-01-05 00:00:00 Completed [facility] Influenza Virus Vaccine Quad IM, Preserv and ABX Free 6 MO-64 YRS 2021-01-05 00:00:00 Completed [facility] Pneumococcal 13 Conjugate, PCV13 (Prevnar 13) 2021-01-05 00:00:00 Completed [facility] TDAP 2021-01-05 00:00:00 Completed [facility] Influenza Virus Vaccine Quad IM, Preserv and ABX Free 6 MO-64 YRS 2021-01-05 00:00:00 Completed [facility] Pneumococcal 13 Conjugate, PCV13 (Prevnar 13) 2021-01-05 00:00:00 Completed [facility] TDAP 2021-01-05 00:00:00 Completed [facility] Influenza Virus Vaccine Quad IM, Preserv and ABX Free 6 MO-64 YRS 2021-01-05 00:00:00 Completed [facility] Pneumococcal 13 Conjugate, PCV13 (Prevnar 13) 2021-01-05 00:00:00 Completed [facility] TDAP 2021-01-05 00:00:00 Completed [facility] Influenza Virus Vaccine Quad IM, Preserv and ABX Free 6 MO-64 YRS 2021-01-05 00:00:00 Completed [facility] Pneumococcal 13 Conjugate, PCV13 (Prevnar 13) 2021-01-05 00:00:00 Completed [facility] TDAP 2021-01-05 00:00:00 Completed [facility] Influenza Virus Vaccine Quad IM, Preserv and ABX Free 6 MO-64 YRS 2021-01-05 00:00:00 Completed [facility] Pneumococcal 13 Conjugate, PCV13 (Prevnar 13) 2021-01-05 00:00:00 Completed [facility] TDAP 2021-01-05 00:00:00 Completed [facility] Influenza Virus Vaccine Quad IM, Preserv and ABX Free 6 MO-64 YRS 2021-01-05 00:00:00 Completed [facility] Pneumococcal 13 Conjugate, PCV13 (Prevnar 13) 2021-01-05 00:00:00 Completed [facility] TDAP 2021-01-05 00:00:00 Completed [facility] Influenza Virus Vaccine Quad IM, Preserv and ABX Free 6 MO-64 YRS 2021-01-05 00:00:00 Completed [facility] Pneumococcal 13 Conjugate, PCV13 (Prevnar 13) 2021-01-05 00:00:00 Completed [facility] TDAP 2021-01-05 00:00:00 Completed [facility] Influenza Virus Vaccine Quad IM, Preserv and ABX Free 6 MO-64 YRS 2021-01-05 00:00:00 Completed [facility] Pneumococcal 13 Conjugate, PCV13 (Prevnar 13) 2021-01-05 00:00:00 Completed [facility] TDAP 2021-01-05 00:00:00 Completed [facility] Influenza Virus Vaccine Quad IM, Preserv and ABX Free 6 MO-64 YRS 2021-01-05 00:00:00 Completed [facility] Pneumococcal 13 Conjugate, PCV13 (Prevnar 13) 2021-01-05 00:00:00 Completed [facility] TDAP 2021-01-05 00:00:00 Completed [facility] Influenza Virus Vaccine Quad IM, Preserv and ABX Free 6 MO-64 YRS 2021-01-05 00:00:00 Completed [facility] Pneumococcal 13 Conjugate, PCV13 (Prevnar 13) 2021-01-05 00:00:00 Completed [facility] TDAP 2021-01-05 00:00:00 Completed [facility] Influenza Virus Vaccine Quad IM, Preserv and ABX Free 6 MO-64 YRS 2021-01-05 00:00:00 Completed [facility] Pneumococcal 13 Conjugate, PCV13 (Prevnar 13) 2021-01-05 00:00:00 Completed [facility] TDAP 2021-01-05 00:00:00 Completed [facility] Influenza Virus Vaccine Quad IM, Preserv and ABX Free 6 MO-64 YRS 2021-01-05 00:00:00 Completed [facility] Pneumococcal 13 Conjugate, PCV13 (Prevnar 13) 2021-01-05 00:00:00 Completed [facility] TDAP 2021-01-05 00:00:00 Completed [facility] Influenza Virus Vaccine Quad IM, Preserv and ABX Free 6 MO-64 YRS 2021-01-05 00:00:00 Completed [facility] Pneumococcal 13 Conjugate, PCV13 (Prevnar 13) 2021-01-05 00:00:00 Completed [facility] TDAP 2021-01-05 00:00:00 Completed [facility] Influenza Virus Vaccine Quad IM, Preserv and ABX Free 6 MO-64 YRS 2021-01-05 00:00:00 Completed [facility] Pneumococcal 13 Conjugate, PCV13 (Prevnar 13) 2021-01-05 00:00:00 Completed [facility] TDAP 2021-01-05 00:00:00 Completed [facility] Influenza Virus Vaccine Quad IM, Preserv and ABX Free 6 MO-64 YRS 2021-01-05 00:00:00 Completed [facility] Pneumococcal 13 Conjugate, PCV13 (Prevnar 13) 2021-01-05 00:00:00 Completed [facility] TDAP 2021-01-05 00:00:00 Completed [facility] Influenza Virus Vaccine Quad IM, Preserv and ABX Free 6 MO-64 YRS 2021-01-05 00:00:00 Completed [facility] Pneumococcal 13 Conjugate, PCV13 (Prevnar 13) 2021-01-05 00:00:00 Completed [facility] TDAP 2021-01-05 00:00:00 Completed [facility] Influenza Virus Vaccine Quad IM, Preserv and ABX Free 6 MO-64 YRS 2021-01-05 00:00:00 Completed [facility] Pneumococcal 13 Conjugate, PCV13 (Prevnar 13) 2021-01-05 00:00:00 Completed [facility] TDAP 2021-01-05 00:00:00 Completed [facility] Influenza Virus Vaccine Quad IM, Preserv and ABX Free 6 MO-64 YRS 2021-01-05 00:00:00 Completed [facility] Pneumococcal 13 Conjugate, PCV13 (Prevnar 13) 2021-01-05 00:00:00 Completed [facility] TDAP 2021-01-05 00:00:00 Completed [facility] Influenza Virus Vaccine Quad IM, Preserv and ABX Free 6 MO-64 YRS 2021-01-05 00:00:00 Completed [facility] Pneumococcal 13 Conjugate, PCV13 (Prevnar 13) 2021-01-05 00:00:00 Completed [facility] TDAP 2021-01-05 00:00:00 Completed [facility] Influenza Virus Vaccine Quad IM, Preserv and ABX Free 6 MO-64 YRS 2021-01-05 00:00:00 Completed [facility] Pneumococcal 13 Conjugate, PCV13 (Prevnar 13) 2021-01-05 00:00:00 Completed [facility] TDAP 2021-01-05 00:00:00 Completed [facility] Influenza Virus Vaccine Quad IM, Preserv and ABX Free 6 MO-64 YRS 2021-01-05 00:00:00 Completed [facility] Pneumococcal 13 Conjugate, PCV13 (Prevnar 13) 2021-01-05 00:00:00 Completed [facility] TDAP 2021-01-05 00:00:00 Completed [facility] Influenza Virus Vaccine Quad IM, Preserv and ABX Free 6 MO-64 YRS (FLUCELVAX) 2021-01-05 00:00:00 Completed [facility] Pneumococcal 13 Conjugate, PCV13 (Prevnar 13) 2021-01-05 00:00:00 Completed TDAP 2021-01-05 00:00:00 Completed Influenza Virus Vaccine Quad IM, Preserv and ABX Free 6 MO-64 YRS (FLUCELVAX) 2021-01-05 00:00:00 Completed [facility] Pneumococcal 13 Conjugate, PCV13 (Prevnar 13) 2021-01-05 00:00:00 Completed TDAP 2021-01-05 00:00:00 Completed SARS-COV-2 COVID-19 PFIZER VACCINE 2020-10-10 00:00:00 Completed [facility] SARS-COV-2 COVID-19 PFIZER VACCINE 2020-10-10 00:00:00 Completed [facility] SARS-COV-2 COVID-19 PFIZER VACCINE 2020-10-10 00:00:00 Completed [facility] SARS-COV-2 COVID-19 PFIZER VACCINE 2020-10-10 00:00:00 Completed [facility] SARS-COV-2 COVID-19 PFIZER VACCINE 2020-10-10 00:00:00 Completed [facility] SARS-COV-2 COVID-19 PFIZER VACCINE 2020-10-10 00:00:00 Completed [facility] SARS-COV-2 COVID-19 PFIZER VACCINE 2020-10-10 00:00:00 Completed [facility] SARS-COV-2 COVID-19 PFIZER VACCINE 2020-10-10 00:00:00 Completed [facility] SARS-COV-2 COVID-19 PFIZER VACCINE 2020-10-10 00:00:00 Completed [facility] SARS-COV-2 COVID-19 PFIZER VACCINE 2020-10-10 00:00:00 Completed [facility] SARS-COV-2 COVID-19 PFIZER VACCINE 2020-10-10 00:00:00 Completed [facility] SARS-COV-2 COVID-19 PFIZER VACCINE 2020-10-10 00:00:00 Completed [facility] SARS-COV-2 COVID-19 PFIZER VACCINE 2020-10-10 00:00:00 Completed [facility] SARS-COV-2 COVID-19 PFIZER VACCINE 2020-10-10 00:00:00 Completed [facility] SARS-COV-2 COVID-19 PFIZER VACCINE 2020-10-10 00:00:00 Completed [facility] SARS-COV-2 COVID-19 PFIZER VACCINE 2020-10-10 00:00:00 Completed [facility] SARS-COV-2 COVID-19 PFIZER VACCINE 2020-10-10 00:00:00 Completed [facility] SARS-COV-2 COVID-19 PFIZER VACCINE 2020-10-10 00:00:00 Completed [facility] SARS-COV-2 COVID-19 PFIZER VACCINE 2020-10-10 00:00:00 Completed [facility] SARS-COV-2 COVID-19 PFIZER VACCINE 2020-10-10 00:00:00 Completed [facility] SARS-COV-2 COVID-19 PFIZER VACCINE 2020-10-10 00:00:00 Completed [facility] SARS-COV-2 COVID-19 PFIZER VACCINE 2020-10-10 00:00:00 Completed [facility] SARS-COV-2 COVID-19 PFIZER VACCINE 2020-10-10 00:00:00 Completed [facility] SARS-COV-2 COVID-19 PFIZER VACCINE 2020-10-10 00:00:00 Completed [facility] SARS-COV-2 COVID-19 PFIZER VACCINE 2020-10-10 00:00:00 Completed [facility] SARS-COV-2 COVID-19 PFIZER VACCINE 2020-10-10 00:00:00 Completed [facility] SARS-COV-2 COVID-19 PFIZER VACCINE 2020-10-10 00:00:00 Completed [facility] SARS-COV-2 COVID-19 PFIZER VACCINE 2020-10-10 00:00:00 Completed [facility] SARS-COV-2 COVID-19 PFIZER VACCINE 2020-10-10 00:00:00 Completed [facility] SARS-COV-2 COVID-19 PFIZER VACCINE 2020-10-10 00:00:00 Completed [facility] SARS-COV-2 COVID-19 PFIZER VACCINE 2020-10-10 00:00:00 Completed [facility] SARS-COV-2 COVID-19 PFIZER VACCINE 2020-10-10 00:00:00 Completed [facility] SARS-COV-2 COVID-19 PFIZER VACCINE 2020-10-10 00:00:00 Completed [facility] SARS-COV-2 COVID-19 PFIZER VACCINE 2020-10-10 00:00:00 Completed [facility] SARS-COV-2 COVID-19 PFIZER VACCINE 2020-10-10 00:00:00 Completed [facility] SARS-COV-2 COVID-19 PFIZER VACCINE 2020-10-10 00:00:00 Completed [facility] SARS-COV-2 COVID-19 PFIZER VACCINE 2020-10-10 00:00:00 Completed [facility] SARS-COV-2 COVID-19 PFIZER VACCINE 2020-10-10 00:00:00 Completed [facility] SARS-COV-2 COVID-19 PFIZER VACCINE 2020-06-25 00:00:00 Completed [facility] SARS-COV-2 COVID-19 PFIZER VACCINE 2020-06-25 00:00:00 Completed [facility] SARS-COV-2 COVID-19 PFIZER VACCINE 2020-06-25 00:00:00 Completed [facility] SARS-COV-2 COVID-19 PFIZER VACCINE 2020-06-25 00:00:00 Completed [facility] SARS-COV-2 COVID-19 PFIZER VACCINE 2020-06-25 00:00:00 Completed [facility] SARS-COV-2 COVID-19 PFIZER VACCINE 2020-06-25 00:00:00 Completed [facility] SARS-COV-2 COVID-19 PFIZER VACCINE 2020-06-25 00:00:00 Completed [facility] SARS-COV-2 COVID-19 PFIZER VACCINE 2020-06-25 00:00:00 Completed [facility] SARS-COV-2 COVID-19 PFIZER VACCINE 2020-06-25 00:00:00 Completed [facility] SARS-COV-2 COVID-19 PFIZER VACCINE 2020-06-25 00:00:00 Completed [facility] SARS-COV-2 COVID-19 PFIZER VACCINE 2020-06-25 00:00:00 Completed [facility] SARS-COV-2 COVID-19 PFIZER VACCINE 2020-06-25 00:00:00 Completed [facility] SARS-COV-2 COVID-19 PFIZER VACCINE 2020-06-25 00:00:00 Completed [facility] SARS-COV-2 COVID-19 PFIZER VACCINE 2020-06-25 00:00:00 Completed [facility] SARS-COV-2 COVID-19 PFIZER VACCINE 2020-06-25 00:00:00 Completed [facility] SARS-COV-2 COVID-19 PFIZER VACCINE 2020-06-25 00:00:00 Completed [facility] SARS-COV-2 COVID-19 PFIZER VACCINE 2020-06-25 00:00:00 Completed [facility] SARS-COV-2 COVID-19 PFIZER VACCINE 2020-06-25 00:00:00 Completed [facility] SARS-COV-2 COVID-19 PFIZER VACCINE 2020-06-25 00:00:00 Completed [facility] SARS-COV-2 COVID-19 PFIZER VACCINE 2020-06-25 00:00:00 Completed [facility] SARS-COV-2 COVID-19 PFIZER VACCINE 2020-06-25 00:00:00 Completed [facility] SARS-COV-2 COVID-19 PFIZER VACCINE 2020-06-25 00:00:00 Completed [facility] SARS-COV-2 COVID-19 PFIZER VACCINE 2020-06-25 00:00:00 Completed [facility] SARS-COV-2 COVID-19 PFIZER VACCINE 2020-06-25 00:00:00 Completed [facility] SARS-COV-2 COVID-19 PFIZER VACCINE 2020-06-25 00:00:00 Completed [facility] SARS-COV-2 COVID-19 PFIZER VACCINE 2020-06-25 00:00:00 Completed [facility] SARS-COV-2 COVID-19 PFIZER VACCINE 2020-06-25 00:00:00 Completed [facility] SARS-COV-2 COVID-19 PFIZER VACCINE 2020-06-25 00:00:00 Completed [facility] SARS-COV-2 COVID-19 PFIZER VACCINE 2020-06-25 00:00:00 Completed [facility] SARS-COV-2 COVID-19 PFIZER VACCINE 2020-06-25 00:00:00 Completed [facility] SARS-COV-2 COVID-19 PFIZER VACCINE 2020-06-25 00:00:00 Completed [facility] SARS-COV-2 COVID-19 PFIZER VACCINE 2020-06-25 00:00:00 Completed [facility] SARS-COV-2 COVID-19 PFIZER VACCINE 2020-06-25 00:00:00 Completed [facility] SARS-COV-2 COVID-19 PFIZER VACCINE 2020-06-25 00:00:00 Completed [facility] SARS-COV-2 COVID-19 PFIZER VACCINE 2020-06-25 00:00:00 Completed [facility] SARS-COV-2 COVID-19 PFIZER VACCINE 2020-06-25 00:00:00 Completed [facility] SARS-COV-2 COVID-19 PFIZER VACCINE 2020-06-25 00:00:00 Completed [facility] SARS-COV-2 COVID-19 PFIZER VACCINE 2020-06-25 00:00:00 Completed [facility] SARS-COV-2 COVID-19 PFIZER VACCINE 2020-06-25 00:00:00 Completed [facility] SARS-COV-2 COVID-19 PFIZER VACCINE 2020-06-25 00:00:00 Completed [facility] SARS-COV-2 COVID-19 PFIZER VACCINE 2020-06-25 00:00:00 Completed [facility] SARS-COV-2 COVID-19 PFIZER VACCINE 2020-06-25 00:00:00 Completed [facility] SARS-COV-2 COVID-19 PFIZER VACCINE 2020-06-25 00:00:00 Completed [facility] SARS-COV-2 COVID-19 PFIZER VACCINE 2020-06-25 00:00:00 Completed [facility] SARS-COV-2 COVID-19 PFIZER VACCINE 2020-06-25 00:00:00 Completed [facility] SARS-COV-2 COVID-19 PFIZER VACCINE 2020-06-25 00:00:00 Completed [facility] SARS-COV-2 COVID-19 PFIZER VACCINE 2020-06-25 00:00:00 Completed [facility] SARS-COV-2 COVID-19 PFIZER VACCINE 2020-06-25 00:00:00 Completed [facility] SARS-COV-2 COVID-19 PFIZER VACCINE 2020-06-25 00:00:00 Completed [facility] SARS-COV-2 COVID-19 PFIZER VACCINE 2020-06-25 00:00:00 Completed [facility] SARS-COV-2 COVID-19 PFIZER VACCINE 2020-06-25 00:00:00 Completed [facility] SARS-COV-2 COVID-19 PFIZER VACCINE 2020-06-25 00:00:00 Completed [facility] SARS-COV-2 COVID-19 PFIZER VACCINE 2020-06-04 00:00:00 Completed [facility] SARS-COV-2 COVID-19 PFIZER VACCINE 2020-06-04 00:00:00 Completed [facility] SARS-COV-2 COVID-19 PFIZER VACCINE 2020-06-04 00:00:00 Completed [facility] SARS-COV-2 COVID-19 PFIZER VACCINE 2020-06-04 00:00:00 Completed [facility] SARS-COV-2 COVID-19 PFIZER VACCINE 2020-06-04 00:00:00 Completed [facility] SARS-COV-2 COVID-19 PFIZER VACCINE 2020-06-04 00:00:00 Completed [facility] SARS-COV-2 COVID-19 PFIZER VACCINE 2020-06-04 00:00:00 Completed [facility] SARS-COV-2 COVID-19 PFIZER VACCINE 2020-06-04 00:00:00 Completed [facility] SARS-COV-2 COVID-19 PFIZER VACCINE 2020-06-04 00:00:00 Completed [facility] SARS-COV-2 COVID-19 PFIZER VACCINE 2020-06-04 00:00:00 Completed [facility] SARS-COV-2 COVID-19 PFIZER VACCINE 2020-06-04 00:00:00 Completed [facility] SARS-COV-2 COVID-19 PFIZER VACCINE 2020-06-04 00:00:00 Completed [facility] SARS-COV-2 COVID-19 PFIZER VACCINE 2020-06-04 00:00:00 Completed [facility] SARS-COV-2 COVID-19 PFIZER VACCINE 2020-06-04 00:00:00 Completed [facility] SARS-COV-2 COVID-19 PFIZER VACCINE 2020-06-04 00:00:00 Completed [facility] SARS-COV-2 COVID-19 PFIZER VACCINE 2020-06-04 00:00:00 Completed [facility] SARS-COV-2 COVID-19 PFIZER VACCINE 2020-06-04 00:00:00 Completed [facility] SARS-COV-2 COVID-19 PFIZER VACCINE 2020-06-04 00:00:00 Completed [facility] SARS-COV-2 COVID-19 PFIZER VACCINE 2020-06-04 00:00:00 Completed [facility] SARS-COV-2 COVID-19 PFIZER VACCINE 2020-06-04 00:00:00 Completed [facility] SARS-COV-2 COVID-19 PFIZER VACCINE 2020-06-04 00:00:00 Completed [facility] SARS-COV-2 COVID-19 PFIZER VACCINE 2020-06-04 00:00:00 Completed [facility] SARS-COV-2 COVID-19 PFIZER VACCINE 2020-06-04 00:00:00 Completed [facility] SARS-COV-2 COVID-19 PFIZER VACCINE 2020-06-04 00:00:00 Completed [facility] SARS-COV-2 COVID-19 PFIZER VACCINE 2020-06-04 00:00:00 Completed [facility] SARS-COV-2 COVID-19 PFIZER VACCINE 2020-06-04 00:00:00 Completed [facility] SARS-COV-2 COVID-19 PFIZER VACCINE 2020-06-04 00:00:00 Completed [facility] SARS-COV-2 COVID-19 PFIZER VACCINE 2020-06-04 00:00:00 Completed [facility] SARS-COV-2 COVID-19 PFIZER VACCINE 2020-06-04 00:00:00 Completed [facility] SARS-COV-2 COVID-19 PFIZER VACCINE 2020-06-04 00:00:00 Completed [facility] SARS-COV-2 COVID-19 PFIZER VACCINE 2020-06-04 00:00:00 Completed [facility] SARS-COV-2 COVID-19 PFIZER VACCINE 2020-06-04 00:00:00 Completed [facility] SARS-COV-2 COVID-19 PFIZER VACCINE 2020-06-04 00:00:00 Completed [facility] SARS-COV-2 COVID-19 PFIZER VACCINE 2020-06-04 00:00:00 Completed [facility] SARS-COV-2 COVID-19 PFIZER VACCINE 2020-06-04 00:00:00 Completed [facility] SARS-COV-2 COVID-19 PFIZER VACCINE 2020-06-04 00:00:00 Completed [facility] SARS-COV-2 COVID-19 PFIZER VACCINE 2020-06-04 00:00:00 Completed [facility] SARS-COV-2 COVID-19 PFIZER VACCINE 2020-06-04 00:00:00 Completed [facility] SARS-COV-2 COVID-19 PFIZER VACCINE 2020-06-04 00:00:00 Completed [facility] SARS-COV-2 COVID-19 PFIZER VACCINE 2020-06-04 00:00:00 Completed [facility] SARS-COV-2 COVID-19 PFIZER VACCINE 2020-06-04 00:00:00 Completed [facility] SARS-COV-2 COVID-19 PFIZER VACCINE 2020-06-04 00:00:00 Completed [facility] SARS-COV-2 COVID-19 PFIZER VACCINE 2020-06-04 00:00:00 Completed [facility] SARS-COV-2 COVID-19 PFIZER VACCINE 2020-06-04 00:00:00 Completed [facility] SARS-COV-2 COVID-19 PFIZER VACCINE 2020-06-04 00:00:00 Completed [facility] SARS-COV-2 COVID-19 PFIZER VACCINE 2020-06-04 00:00:00 Completed [facility] SARS-COV-2 COVID-19 PFIZER VACCINE 2020-06-04 00:00:00 Completed [facility] SARS-COV-2 COVID-19 PFIZER VACCINE 2020-06-04 00:00:00 Completed [facility] SARS-COV-2 COVID-19 PFIZER VACCINE 2020-06-04 00:00:00 Completed [facility] SARS-COV-2 COVID-19 PFIZER VACCINE 2020-06-04 00:00:00 Completed [facility] SARS-COV-2 COVID-19 PFIZER VACCINE 2020-06-04 00:00:00 Completed [facility] SARS-COV-2 COVID-19 PFIZER VACCINE 2020-06-04 00:00:00 Completed [facility] Influenza Virus Vaccine Quad IM, Preserv and ABX Free 6 MO-64 YRS 2019-04-09 00:00:00 Completed [facility] Influenza Virus Vaccine Quad IM, Preserv and ABX Free 6 MO-64 YRS 2019-04-09 00:00:00 Completed [facility] Influenza Virus Vaccine Quad IM, Preserv and ABX Free 6 MO-64 YRS 2019-04-09 00:00:00 Completed [facility] Influenza Virus Vaccine Quad IM, Preserv and ABX Free 6 MO-64 YRS 2019-04-09 00:00:00 Completed [facility] Influenza Virus Vaccine Quad IM, Preserv and ABX Free 6 MO-64 YRS 2019-04-09 00:00:00 Completed [facility] Influenza Virus Vaccine Quad IM, Preserv and ABX Free 6 MO-64 YRS 2019-04-09 00:00:00 Completed [facility] Influenza Virus Vaccine Quad IM, Preserv and ABX Free 6 MO-64 YRS 2019-04-09 00:00:00 Completed [facility] Influenza Virus Vaccine Quad IM, Preserv and ABX Free 6 MO-64 YRS 2019-04-09 00:00:00 Completed [facility] Influenza Virus Vaccine Quad IM, Preserv and ABX Free 6 MO-64 YRS 2019-04-09 00:00:00 Completed [facility] Influenza Virus Vaccine Quad IM, Preserv and ABX Free 6 MO-64 YRS 2019-04-09 00:00:00 Completed [facility] Influenza Virus Vaccine Quad IM, Preserv and ABX Free 6 MO-64 YRS 2019-04-09 00:00:00 Completed [facility] Influenza Virus Vaccine Quad IM, Preserv and ABX Free 6 MO-64 YRS 2019-04-09 00:00:00 Completed [facility] Influenza Virus Vaccine Quad IM, Preserv and ABX Free 6 MO-64 YRS 2019-04-09 00:00:00 Completed [facility] Influenza Virus Vaccine Quad IM, Preserv and ABX Free 6 MO-64 YRS 2019-04-09 00:00:00 Completed [facility] Influenza Virus Vaccine Quad IM, Preserv and ABX Free 6 MO-64 YRS 2019-04-09 00:00:00 Completed [facility] Influenza Virus Vaccine Quad IM, Preserv and ABX Free 6 MO-64 YRS 2019-04-09 00:00:00 Completed [facility] Influenza Virus Vaccine Quad IM, Preserv and ABX Free 6 MO-64 YRS 2019-04-09 00:00:00 Completed [facility] Influenza Virus Vaccine Quad IM, Preserv and ABX Free 6 MO-64 YRS 2019-04-09 00:00:00 Completed [facility] Influenza Virus Vaccine Quad IM, Preserv and ABX Free 6 MO-64 YRS 2019-04-09 00:00:00 Completed [facility] Influenza Virus Vaccine Quad IM, Preserv and ABX Free 6 MO-64 YRS 2019-04-09 00:00:00 Completed [facility] Influenza Virus Vaccine Quad IM, Preserv and ABX Free 6 MO-64 YRS 2019-04-09 00:00:00 Completed [facility] Influenza Virus Vaccine Quad IM, Preserv and ABX Free 6 MO-64 YRS 2019-04-09 00:00:00 Completed [facility] Influenza Virus Vaccine Quad IM, Preserv and ABX Free 6 MO-64 YRS 2019-04-09 00:00:00 Completed [facility] Influenza Virus Vaccine Quad IM, Preserv and ABX Free 6 MO-64 YRS 2019-04-09 00:00:00 Completed [facility] Influenza Virus Vaccine Quad IM, Preserv and ABX Free 6 MO-64 YRS 2019-04-09 00:00:00 Completed [facility] Influenza Virus Vaccine Quad IM, Preserv and ABX Free 6 MO-64 YRS 2019-04-09 00:00:00 Completed [facility] Influenza Virus Vaccine Quad IM, Preserv and ABX Free 6 MO-64 YRS 2019-04-09 00:00:00 Completed [facility] Influenza Virus Vaccine Quad IM, Preserv and ABX Free 6 MO-64 YRS 2019-04-09 00:00:00 Completed [facility] Influenza Virus Vaccine Quad IM, Preserv and ABX Free 6 MO-64 YRS 2019-04-09 00:00:00 Completed [facility] Influenza Virus Vaccine Quad IM, Preserv and ABX Free 6 MO-64 YRS 2019-04-09 00:00:00 Completed [facility] Influenza Virus Vaccine Quad IM, Preserv and ABX Free 6 MO-64 YRS 2019-04-09 00:00:00 Completed [facility] Influenza Virus Vaccine Quad IM, Preserv and ABX Free 6 MO-64 YRS 2019-04-09 00:00:00 Completed [facility] Influenza Virus Vaccine Quad IM, Preserv and ABX Free 6 MO-64 YRS 2019-04-09 00:00:00 Completed [facility] Influenza Virus Vaccine Quad IM, Preserv and ABX Free 6 MO-64 YRS 2019-04-09 00:00:00 Completed [facility] Influenza Virus Vaccine Quad IM, Preserv and ABX Free 6 MO-64 YRS 2019-04-09 00:00:00 Completed [facility] Influenza Virus Vaccine Quad IM, Preserv and ABX Free 6 MO-64 YRS (FLUCELVAX) 2019-04-09 00:00:00 Completed Influenza Virus Vaccine Quad IM, Preserv and ABX Free 6 MO-64 YRS (FLUCELVAX) 2019-04-09 00:00:00 Completed [facility] Flucelvax - single dose syringe Flucelvax - single dose syringe 2019-04-09 00:00:00 Completed [facility] Influenza Virus Vaccine Quad .5 mL IM 6+ MO 2018-01-14 00:00:00 Completed [facility] Influenza Virus Vaccine 2018-01-14 00:00:00 Completed [facility] Influenza Virus Vaccine Quad .5 mL IM 6+ MO 2018-01-14 00:00:00 Completed [facility] Influenza Virus Vaccine 2018-01-14 00:00:00 Completed [facility] Influenza Virus Vaccine Quad .5 mL IM 6+ MO 2018-01-14 00:00:00 Completed [facility] Influenza Virus Vaccine 2018-01-14 00:00:00 Completed [facility] Influenza Virus Vaccine Quad .5 mL IM 6+ MO 2018-01-14 00:00:00 Completed [facility] Influenza Virus Vaccine 2018-01-14 00:00:00 Completed [facility] Influenza Virus Vaccine Quad .5 mL IM 6+ MO 2018-01-14 00:00:00 Completed [facility] Influenza Virus Vaccine 2018-01-14 00:00:00 Completed [facility] Influenza Virus Vaccine Quad .5 mL IM 6+ MO 2018-01-14 00:00:00 Completed [facility] Influenza Virus Vaccine 2018-01-14 00:00:00 Completed [facility] Influenza Virus Vaccine Quad .5 mL IM 6+ MO 2018-01-14 00:00:00 Completed [facility] Influenza Virus Vaccine 2018-01-14 00:00:00 Completed [facility] Influenza Virus Vaccine Quad .5 mL IM 6+ MO 2018-01-14 00:00:00 Completed [facility] Influenza Virus Vaccine 2018-01-14 00:00:00 Completed [facility] Influenza Virus Vaccine Quad .5 mL IM 6+ MO 2018-01-14 00:00:00 Completed [facility] Influenza Virus Vaccine 2018-01-14 00:00:00 Completed [facility] Influenza Virus Vaccine Quad .5 mL IM 6+ MO 2018-01-14 00:00:00 Completed [facility] Influenza Virus Vaccine 2018-01-14 00:00:00 Completed [facility] Influenza Virus Vaccine Quad .5 mL IM 6+ MO 2018-01-14 00:00:00 Completed [facility] Influenza Virus Vaccine 2018-01-14 00:00:00 Completed [facility] Influenza Virus Vaccine Quad .5 mL IM 6+ MO 2018-01-14 00:00:00 Completed [facility] Influenza Virus Vaccine 2018-01-14 00:00:00 Completed [facility] Influenza Virus Vaccine Quad .5 mL IM 6+ MO 2018-01-14 00:00:00 Completed [facility] Influenza Virus Vaccine 2018-01-14 00:00:00 Completed [facility] Influenza Virus Vaccine Quad .5 mL IM 6+ MO 2018-01-14 00:00:00 Completed [facility] Influenza Virus Vaccine 2018-01-14 00:00:00 Completed [facility] Influenza Virus Vaccine Quad .5 mL IM 6+ MO 2018-01-14 00:00:00 Completed [facility] Influenza Virus Vaccine 2018-01-14 00:00:00 Completed [facility] Influenza Virus Vaccine Quad .5 mL IM 6+ MO 2018-01-14 00:00:00 Completed [facility] Influenza Virus Vaccine 2018-01-14 00:00:00 Completed [facility] Influenza Virus Vaccine Quad .5 mL IM 6+ MO 2018-01-14 00:00:00 Completed [facility] Influenza Virus Vaccine 2018-01-14 00:00:00 Completed [facility] Influenza Virus Vaccine Quad .5 mL IM 6+ MO 2018-01-14 00:00:00 Completed [facility] [facility] Influ[facility] Virus Vaccine 2018-01-14 00:00:00 Completed [facility] Influenza Virus Vaccine Quad .5 mL IM 6+ MO 2018-01-14 00:00:00 Completed [facility] Influenza Virus Vaccine 2018-01-14 00:00:00 Completed [facility] Influenza Virus Vaccine Quad .5 mL IM 6+ MO 2018-01-14 00:00:00 Completed [facility] Influenza Virus Vaccine 2018-01-14 00:00:00 Completed [facility] Influenza Virus Vaccine Quad .5 mL IM 6+ MO 2018-01-14 00:00:00 Completed [facility] Influenza Virus Vaccine 2018-01-14 00:00:00 Completed [facility] Influenza Virus Vaccine Quad .5 mL IM 6+ MO 2018-01-14 00:00:00 Completed [facility] Influenza Virus Vaccine 2018-01-14 00:00:00 Completed [facility] Influenza Virus Vaccine Quad .5 mL IM 6+ MO 2018-01-14 00:00:00 Completed [facility] Influenza Virus Vaccine 2018-01-14 00:00:00 Completed [facility] Influenza Virus Vaccine Quad .5 mL IM 6+ MO 2018-01-14 00:00:00 Completed [facility] Influenza Virus Vaccine 2018-01-14 00:00:00 Completed [facility] Influenza Virus Vaccine Quad .5 mL IM 6+ MO 2018-01-14 00:00:00 Completed [facility] Influenza Virus Vaccine 2018-01-14 00:00:00 Completed [facility] Influenza Virus Vaccine Quad .5 mL IM 6+ MO 2018-01-14 00:00:00 Completed [facility] Influenza Virus Vaccine 2018-01-14 00:00:00 Completed [facility] Influenza Virus Vaccine Quad .5 mL IM 6+ MO 2018-01-14 00:00:00 Completed [facility] Influenza Virus Vaccine 2018-01-14 00:00:00 Completed [facility] Influenza Virus Vaccine Quad .5 mL IM 6+ MO 2018-01-14 00:00:00 Completed [facility] Influenza Virus Vaccine 2018-01-14 00:00:00 Completed [facility] Influenza Virus Vaccine Quad .5 mL IM 6+ MO 2018-01-14 00:00:00 Completed [facility] Influenza Virus Vaccine 2018-01-14 00:00:00 Completed [facility] Influenza Virus Vaccine Quad .5 mL IM 6+ MO 2018-01-14 00:00:00 Completed [facility] Influenza Virus Vaccine 2018-01-14 00:00:00 Completed [facility] Influenza Virus Vaccine Quad .5 mL IM 6+ MO 2018-01-14 00:00:00 Completed [facility] Influenza Virus Vaccine 2018-01-14 00:00:00 Completed [facility] Influenza Virus Vaccine Quad .5 mL IM 6+ MO 2018-01-14 00:00:00 Completed [facility] Influenza Virus Vaccine 2018-01-14 00:00:00 Completed [facility] Influenza Virus Vaccine Quad .5 mL IM 6+ MO 2018-01-14 00:00:00 Completed [facility] Influenza Virus Vaccine 2018-01-14 00:00:00 Completed [facility] Influenza Virus Vaccine Quad .5 mL IM 6+ MO 2018-01-14 00:00:00 Completed [facility] Influenza Virus Vaccine 2018-01-14 00:00:00 Completed [facility] Influenza Virus Vaccine Quad .5 mL IM 6+ MO 2018-01-14 00:00:00 Completed [facility] Influenza Virus Vaccine 2018-01-14 00:00:00 Completed [facility] Influenza Virus Vaccine Quad .5 mL IM 6+ MO 2018-01-14 00:00:00 Completed [facility] Influenza Virus Vaccine 2018-01-14 00:00:00 Completed [facility] Influenza Virus Vaccine Quad .5 mL IM 6+ MO 2018-01-14 00:00:00 Completed [facility] Influenza Virus Vaccine 2018-01-14 00:00:00 Completed [facility] Influenza Virus Vaccine Quad .5 mL IM 6+ MO 2018-01-14 00:00:00 Completed [facility] Influenza Virus Vaccine 2018-01-14 00:00:00 Completed [facility] Influenza Virus Vaccine Quad .5 mL IM 6+ MO 2018-01-14 00:00:00 Completed [facility] Influenza Virus Vaccine 2018-01-14 00:00:00 Completed [facility] Influenza Virus Vaccine Quad .5 mL IM 6+ MO 2018-01-14 00:00:00 Completed [facility] Influenza Virus Vaccine 2018-01-14 00:00:00 Completed [facility] Influenza Virus Vaccine Quad .5 mL IM 6+ MO 2018-01-14 00:00:00 Completed [facility] Influenza Virus Vaccine 2018-01-14 00:00:00 Completed [facility] Influenza Virus Vaccine Quad .5 mL IM 6+ MO 2018-01-14 00:00:00 Completed [facility] Influenza Virus Vaccine 2018-01-14 00:00:00 Completed [facility] Influenza Virus Vaccine Quad .5 mL IM 6+ MO 2018-01-14 00:00:00 Completed [facility] Influenza Virus Vaccine 2018-01-14 00:00:00 Completed [facility] Influenza Virus Vaccine Quad .5 mL IM 6+ MO 2018-01-14 00:00:00 Completed [facility] Influenza Virus Vaccine 2018-01-14 00:00:00 Completed [facility] Influenza Virus Vaccine Quad .5 mL IM 6+ MO 2018-01-14 00:00:00 Completed [facility] Influenza Virus Vaccine 2018-01-14 00:00:00 Completed [facility] Influenza Virus Vaccine Quad .5 mL IM 6+ MO 2018-01-14 00:00:00 Completed [facility] Influenza Virus Vaccine 2018-01-14 00:00:00 Completed [facility] Influenza Virus Vaccine Quad .5 mL IM 6+ MO 2018-01-14 00:00:00 Completed [facility] Influenza Virus Vaccine 2018-01-14 00:00:00 Completed [facility] Influenza Virus Vaccine Quad .5 mL IM 6+ MO 2018-01-14 00:00:00 Completed [facility] Influenza Virus Vaccine 2018-01-14 00:00:00 Completed [facility] Influenza Virus Vaccine Quad .5 mL IM 6+ MO 2018-01-14 00:00:00 Completed [facility] Influenza Virus Vaccine 2018-01-14 00:00:00 Completed [facility] Influenza Virus Vaccine Quad .5 mL IM 6+ MO 2018-01-14 00:00:00 Completed [facility] Influenza Virus Vaccine 2018-01-14 00:00:00 Completed [facility] Influenza Virus Vaccine Quad .5 mL IM 6+ MO (FLUZONE/FLULAVAL/F LUARIX) 2018-01-14 00:00:00 Completed [facility] Influenza Virus Vaccine 2018-01-14 00:00:00 Completed [facility] Influenza Virus Vaccine Quad .5 mL IM 6+ MO (FLUZONE/FLULAVAL/F LUARIX) 2018-01-14 00:00:00 Completed [facility] Influenza Virus Vaccine 2018-01-14 00:00:00 Completed [facility] Influenza Virus Vaccine Quad .5 mL IM 6+ MO (FLUZONE/FLULAVAL/F LUARIX) Unknown Completed [facility] Influenza Virus Vaccine Unknown Completed [facility] SARS-COV-2 COVID-19 PFIZER VACCINE Unknown Completed [facility] Influenza Virus Vaccine Quad IM, Preserv and ABX Free 6 MO-64 YRS (FLUCELVAX) Unknown Completed [facility] Pneumococcal 13 Conjugate, PCV13 (Prevnar 13) Unknown Completed [facility] TDAP Unknown Completed [facility] Influenza Virus Vaccine Quad .5 mL IM 6+ MO (FLUZONE/FLULAVAL/F LUARIX) Unknown Completed [facility] Influenza Virus Vaccine Unknown Completed [facility] SARS-COV-2 COVID-19 PFIZER VACCINE Unknown Completed [facility] Influenza Virus Vaccine Quad IM, Preserv and ABX Free 6 MO-64 YRS (FLUCELVAX) Unknown Completed [facility] Pneumococcal 13 Conjugate, PCV13 (Prevnar 13) Unknown Completed [facility] TDAP Unknown Completed [facility] Influenza Virus Vaccine Quad .5 mL IM 6+ MO (FLUZONE/FLULAVAL/F LUARIX) Unknown Completed [facility] Influenza Virus Vaccine Unknown Completed [facility] SARS-COV-2 COVID-19 PFIZER VACCINE Unknown Completed [facility] Influenza Virus Vaccine Quad IM, Preserv and ABX Free 6 MO-64 YRS (FLUCELVAX) Unknown Completed [facility] Pneumococcal 13 Conjugate, PCV13 (Prevnar 13) Unknown Completed [facility] TDAP Unknown Completed [facility] Influenza Virus Vaccine Quad .5 mL IM 6+ MO (FLUZONE/FLULAVAL/F LUARIX) Unknown Completed [facility] Influenza Virus Vaccine Unknown Completed [facility] SARS-COV-2 COVID-19 PFIZER VACCINE Unknown Completed [facility] Influenza Virus Vaccine Quad IM, Preserv and ABX Free 6 MO-64 YRS (FLUCELVAX) Unknown Completed [facility] Pneumococcal 13 Conjugate, PCV13 (Prevnar 13) Unknown Completed [facility] TDAP Unknown Completed [facility] Influenza Virus Vaccine Quad .5 mL IM 6+ MO (FLUZONE/FLULAVAL/F LUARIX) Unknown Completed [facility] Influenza Virus Vaccine Unknown Completed [facility] SARS-COV-2 COVID-19 PFIZER VACCINE Unknown Completed [facility] Influenza Virus Vaccine Quad IM, Preserv and ABX Free 6 MO-64 YRS (FLUCELVAX) Unknown Completed [facility] Pneumococcal 13 Conjugate, PCV13 (Prevnar 13) Unknown Completed [facility] TDAP Unknown Completed [facility] Influenza Virus Vaccine Quad .5 mL IM 6+ MO (FLUZONE/FLULAVAL/F LUARIX) Unknown Completed [facility] Influenza Virus Vaccine Unknown Completed [facility] SARS-COV-2 COVID-19 PFIZER VACCINE Unknown Completed [facility] Influenza Virus Vaccine Quad IM, Preserv and ABX Free 6 MO-64 YRS (FLUCELVAX) Unknown Completed [facility] Pneumococcal 13 Conjugate, PCV13 (Prevnar 13) Unknown Completed [facility] TDAP Unknown Completed [facility] Influenza Virus Vaccine Quad .5 mL IM 6+ MO (FLUZONE/FLULAVAL/F LUARIX) Unknown Completed [facility] Influenza Virus Vaccine Unknown Completed [facility] SARS-COV-2 COVID-19 PFIZER VACCINE Unknown Completed [facility] Influenza Virus Vaccine Quad IM, Preserv and ABX Free 6 MO-64 YRS (FLUCELVAX) Unknown Completed [facility] Pneumococcal 13 Conjugate, PCV13 (Prevnar 13) Unknown Completed [facility] TDAP Unknown Completed [facility] Influenza Virus Vaccine Quad .5 mL IM 6+ MO (FLUZONE/FLULAVAL/F LUARIX) Unknown Completed [facility] Influenza Virus Vaccine Unknown Completed [facility] SARS-COV-2 COVID-19 PFIZER VACCINE Unknown Completed [facility] Influenza Virus Vaccine Quad IM, Preserv and ABX Free 6 MO-64 YRS (FLUCELVAX) Unknown Completed [facility] Pneumococcal 13 Conjugate, PCV13 (Prevnar 13) Unknown Completed [facility] TDAP Unknown Completed [facility] Influenza Virus Vaccine Quad .5 mL IM 6+ MO (FLUZONE/FLULAVAL/F LUARIX) Unknown Completed [facility] Influenza Virus Vaccine Unknown Completed [facility] SARS-COV-2 COVID-19 PFIZER VACCINE Unknown Completed [facility] Influenza Virus Vaccine Quad IM, Preserv and ABX Free 6 MO-64 YRS (FLUCELVAX) Unknown Completed [facility] Pneumococcal 13 Conjugate, PCV13 (Prevnar 13) Unknown Completed [facility] TDAP Unknown Completed [facility] Influenza Virus Vaccine Quad .5 mL IM 6+ MO (FLUZONE/FLULAVAL/F LUARIX) Unknown Completed [facility] Influenza Virus Vaccine Unknown Completed [facility] Pneumococcal 13 Conjugate, PCV13 (Prevnar 13) Unknown Completed [facility] TDAP Unknown Completed [facility] SARS-COV-2 COVID-19 PFIZER VACCINE Unknown Completed [facility] Influenza Virus Vaccine Quad IM, Preserv and ABX Free 6 MO-64 YRS (FLUCELVAX) Unknown Completed [facility] Influenza Virus Vaccine Quad .5 mL IM 6+ MO (FLUZONE/FLULAVAL/F LUARIX) Unknown Completed [facility] Influenza Virus Vaccine Unknown Completed [facility] SARS-COV-2 COVID-19 PFIZER VACCINE Unknown Completed [facility] Influenza Virus Vaccine Quad IM, Preserv and ABX Free 6 MO-64 YRS (FLUCELVAX) Unknown Completed [facility] Pneumococcal 13 Conjugate, PCV13 (Prevnar 13) Unknown Completed [facility] TDAP Unknown Completed [facility] Influenza Virus Vaccine Quad .5 mL IM 6+ MO (FLUZONE/FLULAVAL/F LUARIX) Unknown Completed [facility] Influenza Virus Vaccine Unknown Completed [facility] SARS-COV-2 COVID-19 PFIZER VACCINE Unknown Completed [facility] Influenza Virus Vaccine Quad IM, Preserv and ABX Free 6 MO-64 YRS (FLUCELVAX) Unknown Completed [facility] Pneumococcal 13 Conjugate, PCV13 (Prevnar 13) Unknown Completed [facility] TDAP Unknown Completed [facility] Influenza Virus Vaccine Quad .5 mL IM 6+ MO (FLUZONE/FLULAVAL/F LUARIX) Unknown Completed [facility] Influenza Virus Vaccine Unknown Completed [facility] SARS-COV-2 COVID-19 PFIZER VACCINE Unknown Completed [facility] Influenza Virus Vaccine Quad IM, Preserv and ABX Free 6 MO-64 YRS (FLUCELVAX) Unknown Completed [facility] Pneumococcal 13 Conjugate, PCV13 (Prevnar 13) Unknown Completed [facility] TDAP Unknown Completed [facility] Influenza Virus Vaccine Quad .5 mL IM 6+ MO (FLUZONE/FLULAVAL/F LUARIX) Unknown Completed [facility] Influenza Virus Vaccine Unknown Completed [facility] SARS-COV-2 COVID-19 PFIZER VACCINE Unknown Completed [facility] Influenza Virus Vaccine Quad IM, Preserv and ABX Free 6 MO-64 YRS (FLUCELVAX) Unknown Completed [facility] Pneumococcal 13 Conjugate, PCV13 (Prevnar 13) Unknown Completed [facility] TDAP Unknown Completed [facility] Influenza Virus Vaccine Quad .5 mL IM 6+ MO (FLUZONE/FLULAVAL/F LUARIX) Unknown Completed [facility] Influenza Virus Vaccine Unknown Completed [facility] Pneumococcal 13 Conjugate, PCV13 (Prevnar 13) Unknown Completed [facility] TDAP Unknown Completed [facility] SARS-COV-2 COVID-19 PFIZER VACCINE Unknown Completed [facility] Influenza Virus Vaccine Quad IM, Preserv and ABX Free 6 MO-64 YRS (FLUCELVAX) Unknown Completed [facility] Influenza Virus Vaccine Quad .5 mL IM 6+ MO (FLUZONE/FLULAVAL/F LUARIX) Unknown Completed [facility] Influenza Virus Vaccine Unknown Completed [facility] SARS-COV-2 COVID-19 PFIZER VACCINE Unknown Completed [facility] Influenza Virus Vaccine Quad IM, Preserv and ABX Free 6 MO-64 YRS (FLUCELVAX) Unknown Completed [facility] Pneumococcal 13 Conjugate, PCV13 (Prevnar 13) Unknown Completed [facility] TDAP Unknown Completed [facility] Influenza Virus Vaccine Quad .5 mL IM 6+ MO (FLUZONE/FLULAVAL/F LUARIX) Unknown Completed [facility] Influenza Virus Vaccine Unknown Completed [facility] Pneumococcal 13 Conjugate, PCV13 (Prevnar 13) Unknown Completed [facility] TDAP Unknown Completed [facility] SARS-COV-2 COVID-19 PFIZER VACCINE Unknown Completed [facility] Influenza Virus Vaccine Quad IM, Preserv and ABX Free 6 MO-64 YRS (FLUCELVAX) Unknown Completed [facility] Influenza Virus Vaccine Quad .5 mL IM 6+ MO (FLUZONE/FLULAVAL/F LUARIX) Unknown Completed [facility] Influenza Virus Vaccine Unknown Completed [facility] SARS-COV-2 COVID-19 PFIZER VACCINE Unknown Completed [facility] Influenza Virus Vaccine Quad IM, Preserv and ABX Free 6 MO-64 YRS (FLUCELVAX) Unknown Completed [facility] Pneumococcal 13 Conjugate, PCV13 (Prevnar 13) Unknown Completed [facility] TDAP Unknown Completed [facility] Influenza Virus Vaccine Quad .5 mL IM 6+ MO (FLUZONE/FLULAVAL/F LUARIX) Unknown Completed [facility] Influenza Virus Vaccine Unknown Completed [facility] SARS-COV-2 COVID-19 PFIZER VACCINE Unknown Completed [facility] Influenza Virus Vaccine Quad IM, Preserv and ABX Free 6 MO-64 YRS (FLUCELVAX) Unknown Completed [facility] Pneumococcal 13 Conjugate, PCV13 (Prevnar 13) Unknown Completed [facility] TDAP Unknown Completed [facility] Influenza Virus Vaccine Quad .5 mL IM 6+ MO (FLUZONE/FLULAVAL/F LUARIX) Unknown Completed [facility] Influenza Virus Vaccine Unknown Completed [facility] SARS-COV-2 COVID-19 PFIZER VACCINE Unknown Completed [facility] Influenza Virus Vaccine Quad IM, Preserv and ABX Free 6 MO-64 YRS (FLUCELVAX) Unknown Completed [facility] Pneumococcal 13 Conjugate, PCV13 (Prevnar 13) Unknown Completed [facility] TDAP Unknown Completed [facility] Influenza Virus Vaccine Quad .5 mL IM 6+ MO (FLUZONE/FLULAVAL/F LUARIX) Unknown Completed [facility] Influenza Virus Vaccine Unknown Completed [facility] SARS-COV-2 COVID-19 PFIZER VACCINE Unknown Completed [facility] Influenza Virus Vaccine Quad IM, Preserv and ABX Free 6 MO-64 YRS (FLUCELVAX) Unknown Completed [facility] Pneumococcal 13 Conjugate, PCV13 (Prevnar 13) Unknown Completed [facility] TDAP Unknown Completed [facility] Influenza Virus Vaccine Quad .5 mL IM 6+ MO (FLUZONE/FLULAVAL/F LUARIX) Unknown Completed [facility] Influenza Virus Vaccine Unknown Completed [facility] SARS-COV-2 COVID-19 PFIZER VACCINE Unknown Completed [facility] Influenza Virus Vaccine Quad IM, Preserv and ABX Free 6 MO-64 YRS (FLUCELVAX) Unknown Completed [facility] Pneumococcal 13 Conjugate, PCV13 (Prevnar 13) Unknown Completed [facility] TDAP Unknown Completed [facility] Vital Signs Vital Name Observation Time Observation Value Comments S ource Systolic blood pressure 2024-01-13 19:00:00 132 mm[Hg] [facility] Diastolic blood pressure 2024-01-13 19:00:00 88 mm[Hg] [facility] Heart rate 2024-01-13 19:00:00 87 /min [facility] Respiratory rate 2024-01-13 19:00:00 18 /min [facility] Body height 2024-01-13 19:00:00 165.1 cm [facility] Body weight 2024-01-13 19:00:00 100.699 kg [facility] BMI 2024-01-13 19:00:00 36.94 kg/m2 [facility] Oxygen saturation in Arterial blood by Pulse oximetry 2024-01-13 19:00:00 99 /min [facility] Systolic blood pressure 2023-12-05 18:57:00 117 mm[Hg] [facility] Diastolic blood pressure 2023-12-05 18:57:00 83 mm[Hg] [facility] Heart rate 2023-12-05 18:57:00 71 /min [facility] Respiratory rate 2023-12-05 18:57:00 16 /min [facility] Body height 2023-12-05 18:57:00 [facility] 2023-12-05 18:57:00 100.699 kg [facility] BMI 2023-12-05 18:57:00 36.94 [facility] Syst[facility] blood pressure 2023-10-11 16:21:00 120 mm[Hg] [facility] Diastolic blood pressure 2023-10-11 16:21:00 82 mm[Hg] [facility] Heart rate 2023-10-11 16:21:00 122 /min [facility] height 2023-10-11 16:21:00 165.1 cm [facility] Body weight 2023-10-11 16:21:00 104.01 kg [facility] BMI 2023-10-11 16:21:00 38.16 kg/m2 [facility] Oxygen saturation in Arterial blood by Pulse oximetry 2023-10-11 16:21:00 90 /min [facility] Systolic blood pressure 2023-07-19 18:42:00 132 mm[Hg] [facility] Diastolic blood pressure 2023-07-19 18:42:00 85 mm[Hg] [facility] Heart rate 2023-07-19 18:42:00 76 /min [facility] weight 2023-07-19 18:42:00 112.038 kg [facility] BMI 2023-07-19 18:42:00 41.10 kg/m2 [facility] Oxygen saturation in Arterial blood by Pulse oximetry 2023-07-19 18:42:00 94 /min [facility] Systolic blood pressure 2023-06-25 14:26:00 143 mm[Hg] [facility] Diastolic blood pressure 2023-06-25 14:26:00 71 mm[Hg] [facility] Heart rate 2023-06-25 14:25:00 70 /min [facility] Body temperature 2023-06-25 14:25:00 36.72 Lynsey [facility] Body height 2023-06-25 14:25:00 165.1 cm [facility] weight 2023-06-25 14:25:00 112.855 kg [facility] BMI 2023-06-25 14:25:00 41.40 kg/m2 [facility] Systolic blood pressure 2023-03-04 16:35:00 107 mm[Hg] [facility] Diastolic blood pressure 2023-03-04 16:35:00 72 mm[Hg] [facility] Heart rate 2023-03-04 16:35:00 69 /min [facility] Body height 2023-03-04 16:35:00 165.1 cm [facility] Body weight 2023-03-04 16:35:00 112.175 kg [facility] BMI 2023-03-04 16:35:00 41.15 kg/m2 [facility] Oxygen saturation in Arterial blood by Pulse oximetry 2023-03-04 16:35:00 94 /min [facility] Systolic blood pressure 2022-12-13 14:45:00 128 mm[Hg] [facility] Diastolic blood pressure 2022-12-13 14:45:00 80 mm[Hg] [facility] Heart rate 2022-12-13 14:37:00 84 /min [facility] Body height 2022-12-13 14:37:00 165.1 cm [facility] Body weight 2022-12-13 14:37:00 111.948 kg [facility] BMI 2022-12-13 14:37:00 41.07 kg/m2 [facility] Oxygen saturation in Arterial blood by Pulse oximetry 2022-12-13 14:37:00 99 /min [facility] Systolic blood pressure 2022-11-29 21:23:00 127 mm[Hg] [facility] Diastolic blood pressure 2022-11-29 21:23:00 84 mm[Hg] [facility] Heart rate 2022-11-29 21:23:00 69 /min [facility] Body temperature 2022-11-29 21:23:00 36.72 Lynsey [facility] Respiratory rate 2022-11-29 21:23:00 16 /min [facility] Body height 2022-11-29 21:23:00 165.1 cm [facility] Body weight 2022-11-29 21:23:00 112.038 kg [facility] BMI 2022-11-29 21:23:00 41.10 kg/m2 [facility] Oxygen saturation in Arterial blood by Pulse oximetry 2022-11-29 21:23:00 100 /min [facility] Diastolic blood pressure 2022-09-17 08:00:00 78 mm[Hg] [facility] Heart rate 2022-09-17 08:00:00 53 /min [facility] Respiratory rate 2022-09-17 08:00:00 20 /min [facility] Oxygen saturation in Arterial blood by Pulse oximetry 2022-09-17 08:00:00 98 /min [facility] Systolic blood pressure 2022-09-17 08:00:00 125 mm[Hg] [facility] Body temperature 2022-09-17 03:24:00 36.72 Lynsey [facility] Body height 2022-09-17 03:24:00 165.1 cm [facility] Body weight 2022-09-17 03:24:00 114.76 kg [facility] BMI 2022-09-17 03:24:00 42.10 kg/m2 [facility] Systolic blood pressure 2022-09-14 14:30:00 126 mm[Hg] [facility] Diastolic blood pressure 2022-09-14 14:30:00 71 mm[Hg] [facility] Heart rate 2022-09-14 14:30:00 68 /min [facility] 2022-09-14 14:30:00 36.89 Lynsey [facility] Respiratory rate 2022-09-14 14:30:00 16 /min [facility] Body height 2022-09-14 14:30:00 165.1 cm [facility] 2022-09-14 14:30:00 114.896 kg Univ [facility] BMI 2022-09-14 14:30:00 42.15 kg/m2 [facility] Oxygen saturation in Arterial blood by Pulse oximetry 2022-09-14 14:30:00 99 /min [facility] Systolic blood pressure 2022-09-04 20:33:00 119 mm[Hg] [facility] Diastolic blood pressure 2022-09-04 20:33:00 79 mm[Hg] [facility] Heart rate 2022-09-04 20:33:00 78 /min Unive [facility] Respiratory rate 2022-09-04 20:33:00 18 /min [facility] Body height 2022-09-04 20:33:00 165.1 cm Univ [facility] Body weight 2022-09-04 20:33:00 113.49 kg Univ [facility] BMI 2022-09-04 20:33:00 41.64 kg/m2 [facility] saturation in Arterial blood by Pulse oximetry 2022-09-04 20:33:00 97 /min [facility] Systolic blood pressure 2022-08-30 21:22:00 118 mm[Hg] [facility] Diastolic blood pressure 2022-08-30 21:22:00 78 mm[Hg] [facility] Heart rate 2022-08-30 21:22:00 84 /min Unive [facility] Respiratory rate 2022-08-30 21:22:00 18 /min [facility] Body height 2022-08-30 21:22:00 165.1 cm [facility] weight 2022-08-30 21:22:00 113.399 kg Univ [facility] BMI 2022-08-30 21:22:00 41.60 kg/m2 Univ [facility] Systolic blood pressure 2022-08-20 16:05:00 116 mm[Hg] [facility] Diastolic blood pressure 2022-08-20 16:05:00 65 mm[Hg] [facility] Respiratory rate 2022-08-20 16:05:00 16 /min [facility] Oxygen saturation in Arterial blood by Pulse oximetry 2022-08-20 16:05:00 98 /min [facility] Heart rate 2022-08-20 15:25:00 63 /min Unive [facility] Body temperature 2022-08-20 14:43:00 35.94 Lynsey [facility] Body height 2022-08-09 15:00:00 165.1 cm Univ [facility] Body weight 2022-08-09 15:00:00 108.863 kg Univ [facility] BMI 2022-08-09 15:00:00 39.94 kg/m2 Univ [facility] Systolic blood pressure 2022-08-20 15:00:00 114 mm[Hg] [facility] Diastolic blood pressure 2022-08-20 15:00:00 55 mm[Hg] [facility] Respiratory rate 2022-08-20 15:00:00 17 /min [facility] Oxygen saturation in Arterial blood by Pulse oximetry 2022-08-20 15:00:00 100 /min [facility] Heart rate 2022-08-20 14:43:00 70 /min Unive [facility] Body temperature 2022-08-20 14:43:00 35.94 Lynsey [facility] Body height 2022-08-09 15:00:00 165.1 cm Univ [facility] Body weight 2022-08-09 15:00:00 108.863 kg Univ [facility] BMI 2022-08-09 15:00:00 39.94 kg/m2 Univ [facility] Systolic blood pressure 2022-08-17 19:18:00 136 mm[Hg] [facility] Diastolic blood pressure 2022-08-17 19:18:00 78 mm[Hg] [facility] Heart rate 2022-08-17 19:18:00 86 /min [facility] Body height 2022-08-17 19:18:00 165.1 cm Univ [facility] Body weight 2022-08-17 19:18:00 115.304 kg Univ [facility] BMI 2022-08-17 19:18:00 42.30 kg/m2 Univ [facility] Oxygen saturation in Arterial blood by Pulse oximetry 2022-08-17 19:18:00 98 /min [facility] Systolic blood pressure 2022-08-02 13:43:00 135 mm[Hg] [facility] Diastolic blood pressure 2022-08-02 13:43:00 85 mm[Hg] [facility] Heart rate 2022-08-02 13:43:00 72 /min Unive [facility] Respiratory rate 2022-08-02 13:43:00 18 /min [facility] Body height 2022-08-02 13:43:00 152.4 cm [facility] Body weight 2022-08-02 13:43:00 111.585 kg [facility] BMI 2022-08-02 13:43:00 48.04 kg/m2 Univ [facility] Systolic blood pressure 2022-07-29 03:00:00 129 mm[Hg] [facility] Diastolic blood pressure 2022-07-29 03:00:00 83 mm[Hg] [facility] Heart rate 2022-07-29 03:00:00 70 /min Unive [facility] Respiratory rate 2022-07-29 03:00:00 16 /min [facility] Oxygen saturation in Arterial blood by Pulse oximetry 2022-07-29 03:00:00 98 /min [facility] Body temperature 2022-07-28 21:22:00 36.72 Lynsey [facility] Body height 2022-07-28 21:22:00 165.1 cm Univ [facility] Body weight 2022-07-28 21:22:00 109.77 kg Univ [facility] BMI 2022-07-28 21:22:00 40.27 kg/m2 Univ [facility] Systolic blood pressure 2022-02-28 17:46:00 128 mm[Hg] [facility] Diastolic blood pressure 2022-02-28 17:46:00 28 mm[Hg] [facility] Heart rate 2022-02-28 17:46:00 93 /min Unive [facility] Body height 2022-02-28 17:46:00 165.1 cm Univ [facility] Body weight 2022-02-28 17:46:00 115.214 kg [facility] BMI 2022-02-28 17:46:00 42.27 kg/m2 [facility] Systolic blood pressure 2021-11-27 15:19:00 139 mm[Hg] [facility] Diastolic blood pressure 2021-11-27 15:19:00 76 mm[Hg] [facility] Heart rate 2021-11-27 15:19:00 83 /min Unive [facility] Body height 2021-11-27 15:19:00 165.1 cm Univ [facility] Body weight 2021-11-27 15:19:00 120.385 kg [facility] BMI 2021-11-27 15:19:00 44.16 kg/m2 [facility] Oxygen saturation in Arterial blood by Pulse oximetry 2021-11-27 15:19:00 99 /min [facility] Systolic blood pressure 2021-08-25 21:45:00 124 mm[Hg] [facility] Diastolic blood pressure 2021-08-25 21:45:00 79 mm[Hg] [facility] Heart rate 2021-08-25 21:45:00 75 /min Unive [facility] Body temperature 2021-08-25 21:45:00 36.44 Lynsey [facility] Respiratory rate 2021-08-25 21:45:00 18 /min [facility] Body height 2021-08-25 21:45:00 165.1 cm [facility] Body weight 2021-08-25 21:45:00 123.378 kg [facility] BMI 2021-08-25 21:45:00 45.26 kg/m2 [facility] Procedures Procedure Date / Time Performed Performing Clinician Source RADIOLOGY DOCUMENTATION 2024-07-09 22:21:46 Doct or Unassigned, Chinle [facility] AUTHORIZATION TO RELEASE PHI TO [facility] 2023-03-04 06:01:00 Doctor Unassigned, Chinle [facility] POCT URINALYSIS W/O SPECIFIC GRAVITY 2022-11-29 00:00:00 Brooklyn Hartman [facility] CT PELVIS WO CONTRAST 2022-09-17 07:57:00 Jing Sullivan [facility] CT ABDOMEN PELVIS W CONTRAST 2022-09-17 05:10:00 Tejal Sullivan [facility] CT CHEST PULMONARY ANGIOGRAM 2022-09-17 05:10:00 Tejal Sullivan [facility] POCT TEST 2022-09-17 04:46:00 Tejal Sullivan [facility] MAGNESIUM 2022-09-17 04:20:00 Tejal Sullivan [facility] COMP. METABOLIC PANEL ([id number]) 2022-09-17 04:20:00 Tejal Sullivan [facility] CBC WITH DIFF 2022-09-17 04:20:00 Tejal Sullivan [facility] URINALYSIS 2022-09-17 04:20:00 Tejal Sullivan [facility] NOTICE OF PRIVACY PRACTICES 2022-09-17 03:07:57 Doctor Unassigned, Chinle [facility] CONSENT/REFUSAL FOR DIAGNOSIS AND TREATMENT 2022-09-17 03:05:33 Doctor Unassigned, Chinle [facility] COMP. METABOLIC PANEL ([id number]) 2022-09-04 21:30:00 Faye Napoles [facility] CBC WITH DIFF 2022-09-04 [facility]:30[facility] 2022-08-20 12:22:00 Mckay Fu [facility] POCT TEST 2022-08-20 12:22:00 Mckay Fu [facility] LAPAROSCOPIC OOPHORECTOMY 2022-08-20 12:15:00 Brooklyn Hartman [facility] LAPAROSCOPIC SALPINGECTOMY 2022-08-20 12:15:00 Mary Hartmansol [facility] DAY SURGERY - ADC 2022-08-20 05:01:00 Doctor Beatriz ssigned, Chinle [facility] EXTERNAL PROVIDER RECORDS 2022-08-03 05:01:00 Doctor Unassigned, Chinle [facility] DSU PRE-OP 2022-08-02 05:01:00 Doctor Unass igned, Chinle [facility] DSU PRE-OP 2022-08-02 05:01:00 Doctor Unass igned, Chinle [facility] US OVARY TORSION 2022-07-29 01:30:00 [place] [facility] CONTRAST 2022-07-28 23:04:58 Moo Park [facility] COMP. METABOLIC PANEL ([id number]) 2022-07-28 22:20:00 Moo Park [facility] CBC WITH DIFF 2022-07-28 22:20:00 Moo Park [facility] URINALYSIS 2022-07-28 22:20:00 Moo Park [facility] CONSENT/REFUSAL FOR DIAGNOSIS AND TREATMENT 2022-07-28 21:14:36 Doctor Unassigned, Chinle [facility] POCT HEMOGLOBIN A1C TEST 2022-02-28 17:58:00 Lanie Lopez [facility] Encounters Start Date/Time End Date/Time Encounter Type Admission Type Attending Clinicians Care Facility Care Department Encounter ID Source 2021-03-22 12:08:59 Outpatient Cinda Briceno [facility] [id number] [facility] 2021-03-22 12:08:27 Outpatient Cinda Briceno [facility] [id number] [facility] 2021-03-22 11:07:35 Outpatient Cinda Briceno [facility] [id number] [facility] 2024-12-10 14:30:00 2024-12-10 14:30:00 Outpatient R [facility] S, [facility] [id number] [facility] 2024-10-07 00:00:00 2024-10-07 13:51:26 Telephone Percy Andrade [facility] 1..840.114 350.1.13.10 4.2.7.2.686 [id number] [facility] 2024-09-10 10:40:32 2024-09-10 10:40:32 Outpatient [facility] [id number] Roscoe Fern Finch 2024-07-13 13:00:00 2024-07-13 13:00:00 [address] R [address] [facility] [id number] [facility] 2024-07-09 00:00:00 2024-07-10 09:44:53 Telephone F[facility] Nap[facility] 1..840.114 350.1.13.10 4.2.7.2.686 [id number] [facility] 2024-07-09 00:00:00 2024-07-10 02:04:01 Orders Only Doctor Unassigned, Chinle Doctor Unassigned, Chinle [facility] 1..840.114 350.1.13.10 4.2.7.2.686 [id number] [facility] 2024-06-24 14:00:00 2024-06-24 14:00:00 Outpatient R ALIN FAKDEMARIO OGDEN, [facility] [id number] [facility] 2024-06-23 13:00:00 2024-06-23 13:00:00 Outpatient MONICO MANCUSO, [facility] [id number] [facility] 2019-05-15 00:00:00 2024-06-18 22:00:16 Refill Fiona Felix [facility] SONIA PROFESS[facility] NAL BUILD[facility] 1..840.114 350.1.13.10 4.2.7.2.686 [id number] [facility] 2023-06-11 00:00:00 2024-06-18 21:04:33 Refill Stella NapolesReplaced by [facility] 1.840.114 350.1.13.10 4.2.7.2.686 [id number] [facility] 2024-06-09 14:06:02 2024-06-09 14:06:02 Outpatient [facility] [id number] Roscoe Shirley Stef 2024-03-12 14:07:05 2024-03-12 14:07:05 Outpatient [facility] [id number] Roscoe Finch 2024-03-06 00:00:00 2024-03-06 12:57:04 Refill Yesika [facility] 1.840.114 350.1.13.10 4.2.7.2.686 [id number] [facility] 2024-01-14 00:00:00 2024-02-15 18:16:27 Patient Secure Msg [facility] 1.840.114 350.1.13.10 4.2.7.2.686 [id number] [facility] 2024-01-15 00:00:00 2024-02-15 18:15:31 Patient Secure Msg Percy Andrade [facility] 1.2.840.114 350.1.13.10 4.2.7.2.686 [id number] [facility] 2024-01-14 11:45:00 2024-01-14 12:00:00 Director Software Quality Assurance Visit Lab, Percy Peterson Lab, Avila Nadeem [facility] 1.2.840.114 350.1.13.10 4.2.7.2.686 [id number] [facility] 2024-01-14 11:45:00 2024-01-14 11:45:00 [address] R [address] [facility] [id number] [facility] 2024-01-13 13:00:00 2024-01-13 13:30:00 Office Visit Percy Andrade [facility] 1.2.840.114 350.1.13.10 4.2.7.2.686 [id number] [facility] 2024-01-13 13:00:00 2024-01-13 13:00:00 [address] R [address] [facility] [id number] [facility] 2023-12-23 00:00:00 2023-12-23 00:00:00 Outpatient R FREDRICK-CARLYLE S, [facility] [id number] [facility] 2023-12-19 14:04:45 2023-12-19 14:04:45 Outpatient AMIRAH [facility] [id number] [facility] Roscoe Shirley Stef 2023-12-13 00:00:00 2023-12-13 00:00:00 Outpatient R [place]A-[facility] S, [place] [facility] [id number] [facility] 2023-12-06 00:00:00 2023-12-06 16:39:17 Telephone Mary Tracysol [facility] 1.2.840.114 350.1.13.10 4.2.7.2.686 [id number] [facility] 2023-12-06 00:00:00 2023-12-06 16:14:49 Case Management Ross alfaro [facility] 1.2.840.114 350.1.13.10 4.2.7.2.686 [id number] [facility] 2023-12-06 12:00:00 2023-12-06 12:15:00 Director Software Quality Assurance Visit Lab, Marco Luke Lab, Avila Silver [facility] 1.0.114 350.1.13.10 4.2.7.2.686 [id number] [facility] 2023-12-06 12:00:00 2023-12-06 12:00:00 [address] R [address]CO [address] [facility] [id number] [facility] 2023-12-05 15:30:00 2023-12-05 15:30:00 Outpatient R [place] S, [place] [facility] [id number] [facility] 2023-12-05 13:45:00 2023-12-05 14:13:51 Outpatient R [place] S, [place] [facility] [id number] [facility] 2023-12-05 13:45:00 2023-12-05 14:13:51 [facility] 1.2840.114 350.1.13.10 4.2.7.2.686 [id number] [facility] 2023-11-24 00:00:00 2023-11-25 10:26:59 [facility] 1.2.840.114 350.1.13.10 4.2.7.2.686 [id number] [facility] 2023-11-22 11:00:00 2023-11-22 11:00:00 Outpatient R [facility] [id number] [facility] 2023-11-12 00:00:00 2023-11-12 15:52:44 Telephone NidaStella cohnReplaced by [facility] 1..840.114 350.1.13.10 4.2.7.2.686 [id number] [facility] 2023-11-08 13:00:00 2023-11-08 13:00:[address] [facility] [id number] [facility] 2023-10-11 12:00:00 2023-10-11 12:15:00 Director Software Quality Assurance Visit Lab, Emily Beckford Lab, Ang - Nadeem [facility] 1.2.840.114 350.1.13.10 4.2.7.2.686 [id number] [facility] 2023-10-11 11:30:00 2023-10-11 11:56:19 [address] [facility] [id number] [facility] 2023-10-11 11:30:00 2023-10-11 11:56:19 Office [facility] 1.2.840.114 350.1.13.10 4.2.7.2.686 [id number] [facility] 2023-10-08 13:30:00 2023-10-08 13:30:[address] [facility] [id number] [facility] 2023-10-01 00:00:00 2023-10-02 08:53:30 Faye Liu [facility] 1.2.840.114 350.1.13.10 4.2.7.2.686 [id number] [facility] 2023-10-01 14:00:00 2023-10-01 14:00:[address] [facility] [id number] [facility] 2023-09-24 14:37:29 2023-09-24 14:37:29 Outpatient [facility] [id number] Roscoe Finch 2023-09-06 10:00:00 2023-09-06 10:00:00 Out[address] R [address]ILY [address] [facility] [id number] [facility] 2023-09-03 14:30:00 2023-09-03 14:30:[address] [facility] [id number] [facility] 2023-09-02 14:00:00 2023-09-02 14:00:[address] [facility] [id number] [facility] 2023-08-19 09:15:00 2023-08-19 09:15:00 Outpatient [address]SE FRANCISCO [facility]AT[address] [facility] [id number] [facility] 2023-08-16 11:29:12 2023-08-16 11:29:12 Outpatient [facility] [id number] Roscoe Finch 2023-08-13 14:30:00 2023-08-13 14:30:[address] [facility] [id number] [facility] 2023-07-01 00:00:00 2023-08-03 18:26:28 Patient Secure Msg Doctor Unassigned, Chinle [facility] 1..840.114 350.1.13.10 4.2.7.2.686 [id number] [facility] 2023-07-19 14:00:00 2023-07-19 14:14:39 Outpatient R [address] [facility] [id number] [facility] 2023-07-19 14:00:00 2023-07-19 14:14:39 Office Visit Dionne Javier [facility] 1..840.114 350.1.13.10 4.2.7.2.686 [id number] [facility] 2023-07-18 11:17:37 2023-07-18 11:17:37 Outpatient SFA AMIRAH 522 Roscoe Finch 2023-07-18 11:15:00 2023-07-18 11:15:00 Outpatient R MAMTA [address] [facility] [id number] [facility] 2023-06-29 00:00:00 2023-06-29 00:00:00 Refill Krissy De Dios [facility] 1..840.114 350.1.13.10 4.2.7.2.686 [id number] [facility] 2023-06-25 16:30:00 2023-06-25 16:30:00 Outpatient R KRISSY DE DIOS [facility] [id number] [facility] 2023-06-25 09:00:00 2023-06-25 09:49:51 Outpatient R KRISSY DE [facility] [id number] [facility] 2023-06-25 09:00:00 2023-06-25 09:49:51 Office Visit Krissy De Dios [facility] BU[facility] 1..840.114 350.1.13.10 4.2.7.2.686 [id number] [facility] 2023-06-22 00:00:00 2023-06-22 00:00:00 [facility] 1.2.840.114 350.1.13.10 4.2.7.2.686 [id number] [facility] 2023-06-11 09:20:00 2023-06-11 09:20:00 Outpatient R JAGUAR, KEITH [facility] [id number] [facility] 2023-06-10 14:06:34 2023-06-10 14:06:34 Outpatient [facility] [id number] Roscoe Shirley Stef 2023-06-07 10:30:00 2023-06-07 10:30:[address] [facility] [id number] [facility] 2023-05-26 00:00:00 2023-05-26 00:00:00 [facility] 1.2.840.114 350.1.13.10 4.2.7.2.686 [id number] [facility] 2023-03-07 13:30:00 2023-03-07 13:30:00 Outpatient R FAYE [address] [facility] [id number] [facility] 2023-03-04 10:30:00 2023-03-04 11:00:00 Office Visit Percy Andrade [facility] 1.2.840.114 350.1.13.10 4.2.7.2.686 [id number] [facility] 2023-03-04 10:30:00 2023-03-04 10:30:00 Outpatient R PERCY [address] [facility] [id number] [facility] 2023-03-04 00:00:00 2023-03-04 00:00:00 Orders Only Doctor Unassigned, Chinle [facility] 1..840.114 350.1.13.10 4.2.7.2.686 [id number] [facility] 2023-03-02 00:00:00 2023-03-02 00:00:00 [facility] 1.2.840.114 350.1.13.10 4.2.7.2.686 [id number] [facility] 2023-02-04 14:00:00 2023-02-04 14:00:[address] [facility] [id number] [facility] 2023-01-26 00:00:00 2023-01-26 00:00:00 Refill Yesika [facility] HESHAM[facility] 1.2.840.114 350.1.13.10 4.2.7.2.686 [id number] [facility] 2023-01-07 10:40:00 2023-01-07 10:40:00 Out[address]Y DAWN [facility] [id number] [facility] 2022-12-13 09:30:00 2022-12-13 10:16:50 Outpatient R [facility] [id number] [facility] 2022-12-13 09:30:00 2022-12-13 10:16:50 Office Visit Yesika [facility] HESHAM?M[facility]I [facility] 1.2.840.114 350.1.13.10 4.2.7.2.686 [id number] [facility] 2022-12-10 16:30:00 2022-12-10 16:30:[address] [facility] [facility] [id number] [facility] 2022-11-30 13:00:00 2022-11-30 13:17:44 Outpatient R ALCALA-CARLYLE S, [place] AL[place]CARLY[place] S, [facility] [id number] [facility] 2022-11-30 13:00:00 2022-11-30 13:17:44 Director Software Quality Assurance Visit Lab, Ang - Nadeem Alcala-Carlyle s, [facility] MEDICAL OFFICE BUILDING 1..840.114 350.1.13.10 4.2.7.2.686 [id number] [facility] 2022-11-30 00:00:00 2022-11-30 00:00:00 Refill Yesika [facility] MEDICAL OFFICE BUILDING 1..840.114 350.1.13.10 4.2.7.2.686 [id number] [facility] 2022-11-29 16:30:00 2022-11-29 16:41:13 Outpatient R ALCALA-CARLYLE S, [place] ALCALA[place]CARLY[place] S, [facility] [id number] [facility] 2022-11-29 16:30:00 2022-11-29 16:41:13 Office Visit Fredrick-Carlyle s [place] [facility] 1..840.114 350..13.10 4.2.7.2.686 [id number] [facility] 2022-11-09 16:30:00 2022-11-09 16:30:00 Outpatient R ALCALA-CARLYLE S, [place] ALCALA[place]CARLY[place] S, [facility] [id number] [facility] 2022-10-22 00:00:00 2022-10-22 00:00:00 Refill Yesika [facility] MEDICAL OFFICE BUILDING 1..840.114 350.1.13.10 4.2.7.2.686 [id number] [facility] 2022-10-18 00:00:00 2022-10-18 00:00:00 RefLanie Pride [facility] MEDICAL OFFICE BUILDING 1..840.114 350.1.13.10 4.2.7.2.686 [id number] 220 [id number] [facility] 2022-10-15 00:00:00 2022-10-15 00:00:00 Refill Stella NapolesReplaced by [facility] MEDICAL OFFICE BUILDING 1.840.114 350.1.13.10 4.2.7.2.686 [id number] [facility] 2022-10-12 15:30:00 2022-10-12 15:30:00 Outpatient R FREDRICK-CARLYLE S, [place] ALCALA-CAR[place] S, [facility] [id number] [facility] 2022-10-11 14:22:33 2022-10-11 23:59:[address] [facility] [facility] [id number] [facility] 2022-10-11 14:22:33 2022-10-11 23:59:00 Hospital Encounter Faye Napoles [facility] 1.840.114 350.1.13.10 4.2.7.2.686 [id number] [facility] 2022-09-24 13:00:00 2022-09-24 13:00:00 Outpatient R FREDRICK-CARLYLE S, [place] AL[place]CAR[place] S, [facility] [id number] [facility] 2022-09-20 00:00:00 2022-09-20 00:00:00 Telephone [place] Tracy [facility] 1.840.114 350.1.13.10 4.2.7.2.686 [id number] [facility] 2022-09-19 00:00:00 2022-09-19 00:00:00 Telephone Lanie [facility] 1.2840.114 350.1.13.10 4.2.7.2.686 [id number] [facility] 2022-09-19 00:00:00 2022-09-19 00:00:00 Patient Secure Ross alfaro [place] [facility] 1..114 350.1.13.10 4.2.7.2.686 [id number] [facility] 2022-09-18 11:40:00 2022-09-18 11:40:00 Outpatient R [place] TRACY [facility] [id number] [facility] 2022-09-18 00:00:00 2022-09-18 00:00:00 Telephone Ross alfaro [place] [facility] 1.84.114 350.1.13.10 4.2.7.2.686 [id number] [facility] 2022-09-16 22:33:00 2022-09-17 03:30:00 Emergency X TEJAL SULLIVAN [facility] ERT [id number] [facility] 2022-09-16 22:33:00 2022-09-17 03:30:00 Emergency Tejal Sullivan [facility] 1.20.114 350.1.13.10 4.2.7.2.686 [id number] [facility] 2022-09-14 09:00:00 2022-09-14 09:53:56 Outpatient R FELIX TRACYL [place] S, [facility] [id number] [facility] 2022-09-14 09:00:00 2022-09-14 09:53:56 Office Visit Mary Tracysol [facility] 1.0.114 350.1.13.10 4.2.7.2.686 [id number] [facility] 2022-09-14 08:00:00 2022-09-14 08:00:00 Outpatient R FREDRICK-CARLYLE S, [place] AL[place]CAR[place] S, [facility] [id number] [facility] 2022-09-07 00:00:00 2022-09-07 00:00:00 Refill Yes[facility] MEDICAL OFFICE BUILDING 1..114 350.1.13.10 4.2.7.2.686 [id number] [facility] 2022-09-06 00:00:00 2022-09-06 00:00:00 [facility] 1..114 350.1.13.10 4.2.7.2.686 [id number] [facility] 2022-09-06 00:00:00 2022-09-06 00:00:00 Patient Secure Msg Doctor Unassigned, Chinle [facility] 1.2.114 350.1.13.10 4.2.7.2.686 [id number] [facility] 2022-09-04 16:15:00 2022-09-04 16:33:18 Director Software Quality Assurance Visit [facility] 1..114 350.1.13.10 4.2.7.2.686 [id number] [facility] 2022-09-04 15:00:00 2022-09-04 16:21:35 [address] [facility] [id number] [facility] 2022-09-04 15:00:00 2022-09-04 16:21:35 Office Visit Stella NapolesReplaced by [facility] MEDICAL OFFICE BUILDING 1.840.114 350.1.13.10 4.2.7.2.686 [id number] [id number] [facility] 2022-09-04 00:00:00 2022-09-04 00:00:00 Refill Stella NapolesReplaced by [facility] MEDICAL OFFICE BUILDING 1..840.114 350.1.13.10 4.2.7.2.686 [id number] [id number] [facility] 2022-08-30 16:30:00 2022-08-30 16:49:20 Outpatient R ROSS Alfaro, [place] Alfaro [facility] [id number] [facility] 2022-08-30 16:30:00 2022-08-30 16:49:20 Office Visit Ross lafaro [facility] 1.840.114 350.1.13.10 4.2.7.2.686 [id number] [facility] 2022-08-25 00:00:00 2022-08-25 00:00:00 Refill Lanie Lopez [facility] MEDICAL OFFICE BUILDING 1.840.114 350.1.13.10 4.2.7.2.686 [id number] [facility] 2022-08-22 00:00:00 2022-08-22 00:00:00 Telephone Ross alfaro [facility] 1.2.840.114 350.1.13.10 4.2.7.2.686 [id number] [facility] 2022-08-20 06:45:00 2022-08-20 11:22:00 Outpatient R ALCALA-CARLYLE S, [place] ALCALA-CARLYLE S, [place] [facility] INSTALLER [id number] [facility] 2022-08-20 06:45:00 2022-08-20 11:22:00 Hospital Encounter Alcala-Carlyle s [place] [facility] SURGICAL SANDY 1.2.840.114 350.1.13.10 4.2.7.2.686 [id number] [facility] 2022-08-20 07:15:00 2022-08-20 10:03:00 Surgery Alcala-Carlyle s [place] [facility] SURGICAL SANDY 1.2.840.114 350.1.13.10 4.2.7.2.686 [id number] [facility] 2022-08-20 00:00:00 2022-08-20 00:00:00 Orders Only Doctor Unassigned, Chinle [facility] 1.2.840.114 350.1.13.10 4.2.7.2.686 [id number] [facility] 2022-08-20 00:00:00 2022-08-20 00:00:00 Telephone Ross s [place] [facility] 1.2840.114 350.1.13.10 4.2.7.2.686 [id number] [facility] 2022-08-17 14:00:00 2022-08-17 14:52:48 [address] R [address]ILY [facility] [facility] [id number] [facility] 2022-08-17 14:00:00 2022-08-17 14:52:48 Office Visit RebekahEmily clemons [facility] MEDICAL OFFICE BUILDING 1.114 350.1.13.10 4.2.7.2.686 [id number] 220 [id number] [facility] 2022-08-17 00:00:00 2022-08-17 00:00:00 Telephone [place] Tracy [facility] 1..114 350.1.13.10 4.2.7.2.686 [id number] 134 [id number] [facility] 2022-08-15 15:00:00 2022-08-15 16:00:22 Director Software Quality Assurance Visit Lab, Avila Gayle Marco [facility] MEDICAL OFFICE BUILDING 1.114 350.1.13.10 4.2.7.2.686 [id number] [facility] 2022-08-15 15:00:00 2022-08-15 15:00:00 Outpatient R MARCO [facility] [id number] [facility] 2022-08-15 00:00:00 2022-08-15 00:00:00 Telephone Jessica [facility] MEDICAL OFFICE BUILDING 1.114 350.1.13.10 4.2.7.2.686 [id number] [facility] 2022-08-07 00:00:00 2022-08-07 00:00:00 Telephone JessicaLanie [facility] MEDICAL OFFICE BUILDING 1.114 350.1.13.10 4.2.7.2.686 [id number] 220 [id number] [facility] 2022-08-03 00:00:00 2022-08-03 00:00:00 Orders Only Doctor Unassigned, Chinle [facility] 1.114 350.1.13.10 4.2.7.2.686 [id number] [facility] 2022-08-02 08:30:00 2022-08-02 09:17:20 Outpatient R [place] [facility] [id number] [facility] 2022-08-02 08:30:00 2022-08-02 09:17:20 Office Visit Mary Tracysol [facility] 1.2840.114 350.1.13.10 4.2.7.2.686 [id number] 134 [id number] [facility] 2022-08-02 00:00:00 2022-08-02 00:00:00 Prep For Surgery Ross alfaro [facility] 1.0.114 350.1.13.10 4.2.7.2.686 [id number] 134 [id number] [facility] 2022-07-30 00:00:00 2022-07-30 00:00:00 Patient Secure Msg Doctor Unassigned, Chinle [facility] 1.2.114 350.1.13.10 4.2.7.2.686 [id number] 220 [id number] [facility] 2022-07-28 16:25:00 2022-07-28 22:46:00 Emergency X [place] [facility] ERT [id number] [facility] 2022-07-28 16:25:00 2022-07-28 22:46:00 Emergency Moo [place] [facility] 1.2.114 350.1.13.10 4.2.7.2.686 [id number] [facility] 2022-07-27 14:30:00 2022-07-27 14:30:00 [address]patient R [address]ILY [facility] [id number] [facility] 2022-07-25 00:00:00 2022-07-25 00:00:00 Refill Jessica, Man[facility] MEDICAL OFFICE BUILDING 1.2.840.114 350.1.13.10 4.2.7.2.686 [id number] 220 [id number] [facility] 2022-07-25 00:00:00 2022-07-25 00:00:00 Refill Jessica, Lanie [facility] MEDICAL OFFICE BUILDING 1.2.840.114 350.1.13.10 4.2.7.2.686 [id number] [facility] 2022-07-20 00:00:00 2022-07-20 00:00:00 [facility] MEDICAL OFFICE BUILDING 1.2.840.114 350.1.13.10 4.2.7.2.686 [id number] 220 [id number] [facility] 2022-07-02 13:30:00 2022-07-02 13:30:00 Outpatient R JESSICALANIE [facility] [id number] [facility] 2022-05-21 00:00:00 2022-05-21 00:00:00 Case Management Pearl Ehceverria 1..840.114 350.1.13.10 4.2.7.2.686 [id number] [facility] 2022-05-21 00:00:00 2022-05-21 00:00:00 Telephone Pearl Echeverria 1.2.840.114 350.1.13.10 4.2.7.2.686 [id number] [facility] 2022-05-04 00:00:00 2022-05-04 00:00:00 Refill Jessica, [facility] MEDICAL OFFICE BUILDING 1.2.840.114 350.1.13.10 4.2.7.2.686 [id number] 220 [id number] [facility] 2022-03-06 00:00:00 2022-03-06 00:00:00 Patient Secure Msg Lopez [facility] MEDICAL OFFICE BUILDING 1.2.840.114 350.1.13.10 4.2.7.2.686 [id number] 220 [id number] [facility] 2022-03-02 00:00:00 2022-03-02 00:00:00 Refill Jessica [facility] PRIMARY CARE PAVILLION 1.2.840.114 350.1.13.10 4.2.7.2.686 [id number] 220 [id number] [facility] 2022-02-28 12:00:00 2022-02-28 13:14:28 Outpatient R JESSICALANIE [facility] [id number] [facility] 2022-02-28 12:00:00 2022-02-28 13:14:28 Office [facility] MEDICAL OFFICE BUILDING 1.2.840.114 350.1.13.10 4.2.7.2.686 [id number] 220 [id number] [facility] 2022-02-28 12:30:00 2022-02-28 12:45:00 Director Software Quality Assurance Visit Lab, Ang - Nadeem Jessica [facility] MEDICAL OFFICE BUILDING 1.2.840.114 350.1.13.10 4.2.7.2.686 [id number] [facility] 2022-01-02 15:30:00 2022-01-02 15:30:00 Outpatient R ARIES [facility] [id number] [facility] 2021-12-19 00:00:00 2021-12-19 00:00:00 Patient Secure Msg Lanie Lopez [facility] PRIMARY CARE PAVILLION 1.2.840.114 350.1.13.10 4.2.7.2.686 [id number] 220 [id number] [facility] 2021-12-15 16:30:00 2021-12-15 16:30:00 Outpatient R [address]E [address] [facility] [id number] [facility] 2021-12-15 00:00:00 2021-12-15 00:00:00 [facility] 1.2.840.114 350.1.13.10 4.2.7.2.686 [id number] [facility] 2021-11-29 00:00:00 2021-11-29 00:00:00 Refill Jessica [facility] MEDICAL OFFICE BUILDING 1.2.840.114 350.1.13.10 4.2.7.2.686 [id number] [facility] 2021-11-29 00:00:00 2021-11-29 00:00:00 Refill Lanie Lopez [facility] MEDICAL OFFICE BUILDING 1.2.840.114 350.1.13.10 4.2.7.2.686 [id number] 220 [id number] [facility] 2021-11-27 10:30:00 2021-11-27 11:02:19 Outpatient R LANIE LOPEZ [facility] [id number] [facility] 2021-11-27 10:30:00 2021-11-27 11:02:19 Office Visit Lanie Lopez [facility] MEDICAL OFFICE BUILDING 1.2.840.114 350.1.13.10 4.2.7.2.686 [id number] 220 [id number] [facility] 2021-11-24 00:00:00 2021-11-24 00:00:00 Refill Dominguez, Chema Amandeep [facility] MEDICAL OFFICE BUILDING 1.2.840.114 350.1.13.10 4.2.7.2.686 [id number] 220 [id number] [facility] 2021-10-21 00:00:00 2021-10-21 00:00:00 Refill Lanie Lopez [facility] MEDICAL OFFICE BUILDING 1.2.840.114 350.1.13.10 4.2.7.2.686 [id number] 220 [id number] [facility] 2021-10-20 10:00:00 2021-10-20 10:00:[address]RA GARCÍ[address] [facility] [id number] [facility] 2021-10-05 15:00:00 2021-10-05 15:00:[address]RA GARCÍ[facility] [id number] [facility] 2021-09-29 15:00:00 2021-09-29 15:00:00 Out[address]Y DAWN [facility] [id number] [facility] 2021-09-23 00:00:00 2021-09-23 00:00:00 Nancy Gurrola [facility] 1..840.114 350.1.13.10 4.2.7.2.686 [id number] 220 [id number] [facility] 2021-09-12 13:00:00 2021-09-12 13:00:00 Out[address]Y DAWN [facility] [id number] [facility] 2021-08-29 09:00:00 2021-08-29 09:00:[address] [facility] [id number] [facility] 2021-08-29 00:00:00 2021-08-29 00:00:00 Telephone Lanie Lopez [facility] PRIMARY CARE PAVILLION 1..114 350.1.13.10 4.2.7.2.686 [id number] 220 [id number] [facility] 2021-08-25 15:00:00 2021-08-25 15:30:00 Office Visit Debra Ir[facility] 1.84.114 350.1.13.10 4.2.7.2.686 [id number] [facility] 2021-08-25 15:00:00 2021-08-25 15:00:00 [address] R [address]BRA [facility]IN [facility] [id number] [facility] 2021-08-25 15:00:00 2021-08-25 15:00:00 Outpatient R DEBRA IRVIN [facility] [id number] [facility] 2021-08-23 09:30:00 2021-08-23 09:45:00 Director Software Quality Assurance Visit Lab, Avila LopezLanie [facility] 1.84.114 350.1.13.10 4.2.7.2.686 [id number] [facility] 2021-08-23 08:30:00 2021-08-23 09:16:15 Outpatient R LANIE LOPEZ [facility] [id number] [facility] 2021-08-23 08:30:00 2021-08-23 09:16:15 Office Visit JessicaLanie [facility]?HAILEYSerena [facility] MEDICAL OFFICE BUILDING 1.84.114 350.1.13.10 4.2.7.2.686 [id number] 220 [id number] [facility] 2021-08-03 00:00:00 2021-08-03 00:00:00 Chema Venegas [facility] MEDICAL OFFICE BUILDING 1.84.114 350.1.13.10 4.2.7.2.686 [id number] [facility] 2021-08-02 16:00:00 2021-08-02 16:00:[address] [facility] [id number] [facility] 2021-07-31 00:00:00 2021-07-31 00:00:00 Refmegan Dominguez [facility] MEDICAL OFFICE BUILDING 1.2.840.114 350.1.13.10 4.2.7.2.686 [id number] 220 [id number] [facility] 2021-07-21 00:00:00 2021-07-21 00:00:00 Refmegan Dominguez [facility] MEDICAL OFFICE BUILDING 1.2.840.114 350.1.13.10 4.2.7.2.686 [id number] 220 [id number] [facility] 2021-07-20 00:00:00 2021-07-20 00:00:00 [facility] 1.840.114 350.1.13.10 4.2.7.2.686 [id number] 220 [id number] [facility] 2021-05-17 00:00:00 2021-05-17 00:00:00 [facility] 1.2.840.114 350.1.13.10 4.2.7.2.686 [id number] 220 [id number] [facility] 2021-03-11 00:00:00 2021-03-11 00:00:00 Harrison Dominguez [facility] BUILDING 1.2.840.114 350.1.13.10 4.2.7.2.686 [id number] 220 [id number] [facility] 2021-03-08 00:00:00 2021-03-08 00:00:00 Harrison MartinesKinneyChema [facility] BUILDING 1..840.114 350.1.13.10 4.2.7.2.686 [id number] [facility] 2021-02-23 13:30:00 2021-02-23 13:30:[address] [facility] [id number] [facility] 2021-02-09 00:00:00 2021-02-09 00:00:00 Orders Only Doctor Unassigned, Chinle [facility] 1.840.114 350..13.10 4.2.7.2.686 [id number] [facility] 2021-01-30 00:00:00 2021-01-30 00:00:[address] [facility] [id number] [facility] 2021-01-30 00:00:00 2021-01-30 00:00:00 [facility] [id number] [facility] 2021-01-24 00:00:00 2021-01-24 00:00:00 Faye Adkins [facility] 1..840.114 350.1.13.10 4.2.7.2.686 [id number] [facility] 2021-01-17 13:00:00 2021-01-17 13:00:00 Outpatient [address]ZY DAWN [facility] [id number] [facility] 2021-01-16 12:41:38 2021-01-16 12:56:38 Director Software Quality Assurance Visit Pob, Adc Lab Jose Mendoza [facility] 1..840.114 350.1.13.10 4.2.7.2.686 [id number] [facility] 2021-01-16 10:57:50 2021-01-16 11:58:36 Office [facility] 1.114 350.1.13.10 4.2.7.2.686 [id number] [facility] 2021-01-16 10:30:00 2021-01-16 11:58:36 Outpatient Smooth [facility] [id number] [facility] 2021-01-16 10:30:00 2021-01-16 11:58:36 Outpatient Smooth [facility] [id number] [facility] 2021-01-16 00:00:00 2021-01-16 00:00:00 Orders Only Doctor Unassigned, Chinle [facility] 1.114 350.1.13.10 4.2.7.2.686 [id number] [facility] 2021-01-13 00:00:00 2021-01-13 00:00:00 Patient Secure Msg Trent [facility] 1.114 350.1.13.10 4.2.7.2.686 [id number] [facility] 2021-01-13 00:00:00 2021-01-13 00:00:00 Patient Secure Msg Trent [facility] 1.114 350.1.13.10 4.2.7.2.686 [id number] [facility] 2021-01-10 00:00:00 2021-01-10 00:00:00 [facility] 1.114 350.1.13.10 4.2.7.2.686 [id number] [facility] 2021-01-06 15:30:00 2021-01-06 16:04:28 Outpatient R [facility] [id number] [facility] 2021-01-06 15:25:33 2021-01-06 16:04:28 [facility] 1.2.840.114 350.1.13.10 4.2.7.2.686 [id number] [facility] 2021-01-06 15:30:00 2021-01-06 15:30:00 Outpatient [address]Y [facility] [id number] [facility] 2021-01-06 15:30:00 2021-01-06 15:30:00 Outpatient R [facility] [id number] [facility] 2021-01-05 14:30:00 2021-01-05 23:59:00 Outpatient R [facility]FA[facility] [id number] [facility] 2021-01-05 14:30:00 2021-01-05 23:59:00 [facility] 1.2.840.114 350.1.13.10 4.2.7.2.686 [id number] [facility] 2021-01-05 14:30:00 2021-01-05 14:30:[address] [facility] [id number] [facility] 2021-01-05 14:30:00 2021-01-05 14:30:[address] [facility] [id number] [facility] 2021-01-05 14:08:27 2021-01-05 14:23:27 Director Software Quality Assurance Visit Lab, Ang - Db Anene, [facility]Re[facility] by [facility] 1.114 350.1.13.10 4.2.7.2.686 [id number] [facility] 2021-01-05 12:52:04 2021-01-05 14:06:37 [facility] 1.114 350.1.13.10 4.2.7.2.686 [id number] [facility] 2021-01-05 00:00:00 2021-01-05 00:00:00 Orders Only Doctor Unassigned, Chinle [facility] 1.114 350.1.13.10 4.2.7.2.686 [id number] [facility] 2020-12-23 00:00:00 2020-12-23 00:00:00 Telephone Chema Dominguez [facility] 1.114 350.1.13.10 4.2.7.2.686 [id number] 220 [id number] [facility] 2020-12-12 09:00:00 2020-12-12 09:00:[address] [facility] [id number] [facility] 2020-11-25 16:00:00 2020-11-25 16:00:[address] [facility] [id number] [facility] 2020-11-21 11:00:00 2020-11-21 11:00:[address] [facility] [id number] [facility] 2020-10-28 00:00:00 2020-10-28 00:00:00 Telephone Maribell Graves [facility] 1.2.840.114 350.1.13.10 4.2.7.2.686 [id number] 220 [id number] [facility] 2020-10-28 00:00:00 2020-10-28 00:00:00 Telephone Maribell Graves [facility] 1.2840.114 350.1.13.10 4.2.7.2.686 [id number] 220 [id number] [facility] 2020-10-24 00:00:00 2020-10-24 00:00:00 Refill Senia Esparza [facility] Professio nal Building 1.2.840.114 350.1.13.10 4.2.7.2.686 [id number] 220 [id number] [facility] 2020-10-20 00:00:00 2020-10-20 00:00:00 [facility] 1.2.840.114 350.1.13.10 4.2.7.2.686 [id number] 220 [id number] [facility] 2020-10-20 00:00:00 2020-10-20 00:00:00 [facility] 1.2.840.114 350.1.13.10 4.2.7.2.686 [id number] 220 [id number] [facility] 2020-07-24 00:00:00 2020-07-24 00:00:00 Chema Venegas [facility] n[facility] Building 1.2.840.114 350.1.13.10 4.2.7.2.686 [id number] 220 [id number] [facility] 2020-06-25 13:10:00 2020-06-25 13:10:[address] [facility] [id number] [facility] 2020-06-04 13:00:00 2020-06-04 13:00:[address] [facility] [id number] [facility] 2020-05-25 15:00:00 2020-05-25 15:00:[address] [facility] [id number] [facility] 2020-05-13 10:59:16 2020-05-13 12:12:32 Office Visit Chema Dominguez [facility] 1..840.114 350.1.13.10 4.2.7.2.686 [id number] 220 [id number] [facility] 2020-05-13 11:00:00 2020-05-13 11:00:[address] [facility] [id number] [facility] 2020-05-10 14:30:00 2020-05-10 14:30:[address] [facility] [id number] [facility] 2020-04-24 00:00:00 2020-04-24 00:00:00 Refill Chema Dominguez [facility] 1..840.114 350.1.13.10 4.2.7.2.686 [id number] 220 [id number] [facility] 2020-02-15 00:00:00 2020-02-15 00:00:00 RefChema Ryan [facility] Building 1..840.114 350.1.13.10 4.2.7.2.686 [id number] 220 [id number] [facility] 2020-02-11 00:00:00 2020-02-11 00:00:00 RefFiona Mosley [facility] 1..840.114 350.1.13.10 4.2.7.2.686 [id number] 220 [id number] [facility] 2020-01-29 09:00:00 2020-01-29 09:00:00 Outpatient R CHEMA DOMINGUEZ [facility] [id number] [facility] 2020-01-28 00:00:00 2020-01-28 00:00:00 Orders Only Fiona Felix [facility] 1.2.840.114 350.1.13.10 4.2.7.2.686 [id number] [facility] 2020-01-27 00:00:00 2020-01-27 00:00:00 Telephone Chema Dominguez [facility] Building 1.2.840.114 350.1.13.10 4.2.7.2.686 [id number] 220 [id number] [facility] 2019-12-28 00:00:00 2019-12-28 00:00:00 Refill Chema Dominguez [facility] Building 1.2.840.114 350.1.13.10 4.2.7.2.686 [id number] 220 [id number] [facility] 2019-12-28 00:00:00 2019-12-28 00:00:00 [facility] 1.2.840.114 350.1.13.10 4.2.7.2.686 [id number] 220 [id number] 2019-07-28 08:45:00 2019-07-28 08:45:[address] [facility] [id number] [facility] 2019-07-24 08:17:11 2019-07-24 11:47:51 Telemedici ne Visit Chema Dominguez [facility] Building 1.2.840.114 350.1.13.10 4.2.7.2.686 [id number] 220 [id number] [facility] 2019-07-24 08:17:11 2019-07-24 11:47:51 Telemedici ne Visit Chema Dominguez [facility] Building 1.2840.114 350.1.13.10 4.2.7.2.686 [id number] 220 [id number] 2019-07-24 10:30:00 2019-07-24 10:30:00 Outpatient R CHEMA DOMINGUEZ [facility] [id number] [facility] 2019-07-10 00:00:00 2019-07-10 00:00:00 Refill Isidro [facility] 1.2840.114 350.1.13.10 4.2.7.2.686 [id number] 220 [id number] [facility] 2019-07-10 00:00:00 2019-07-10 00:00:00 Refill Isidro [facility] 1.2840.114 350.1.13.10 4.2.7.2.686 [id number] 220 [id number] 2019-05-20 08:37:33 2019-05-20 13:26:38 Telemedici ne Visit Isidro [facility] 1.2840.114 350.1.13.10 4.2.7.2.686 [id number] 220 [id number] [facility] 2019-05-20 08:37:33 2019-05-20 13:26:38 Telemedici ne Visit Isidro [facility] 1.2840.114 350.1.13.10 4.2.7.2.686 [id number] 220 [id number] 2019-05-20 09:30:00 2019-05-20 09:30:00 Outpatient R ISIDRO [facility] [id number] [facility] 2019-05-20 00:00:00 2019-05-20 00:00:00 Telephone Isidro [facility] 1.2840.114 350.1.13.10 4.2.7.2.686 [id number] 220 [id number] [facility] 2019-05-20 00:00:00 2019-05-20 00:00:00 Telephone Fiona Felix [facility] Building 1.2.840.114 350.1.13.10 4.2.7.2.686 [id number] 220 [id number] 2019-05-19 14:15:00 2019-05-19 14:15:00 Outpatient R ISIDRO [facility] [id number] [facility] 2019-05-17 00:00:00 2019-05-17 00:00:00 Refill Isidro [facility] Building 1.2.840.114 350.1.13.10 4.2.7.2.686 [id number] 220 [id number] [facility] 2019-05-17 00:00:00 2019-05-17 00:00:00 Refill Nicole Andrea [facility] Building 1.2.840.114 350.1.13.10 4.2.7.2.686 [id number] 220 [id number] [facility] 2019-05-17 00:00:00 2019-05-17 00:00:00 Refill Isidro [facility] Building 1.2.840.114 350.1.13.10 4.2.7.2.686 [id number] 220 [id number] 2019-05-17 00:00:00 2019-05-17 00:00:00 Refill Nicole Andrea [facility] Building 1.2.840.114 350.1.13.10 4.2.7.2.686 [id number] 220 [id number] 2019-05-15 00:00:00 2019-05-15 00:00:00 Refill Isidro [facility] Building 1.2.840.114 350.1.13.10 4.2.7.2.686 [id number] 220 [id number] [facility] 2019-05-15 00:00:00 2019-05-15 00:00:00 Refill Isidro [facility] Building 1.2.840.114 350.1.13.10 4.2.7.2.686 [id number] 220 [id number] 2019-04-28 00:00:00 2019-04-28 00:00:00 [facility] 1.2840.114 350.1.13.10 4.2.7.2.686 [id number] 220 [id number] [facility] 2019-04-28 00:00:00 2019-04-28 00:00:00 Refill Zully [facility] 1.2840.114 350.1.13.10 4.2.7.2.686 [id number] 220 [id number] 2019-04-24 00:00:00 2019-04-24 00:00:00 Refill Isidro [facility] Building 1.2.840.114 350.1.13.10 4.2.7.2.686 [id number] 220 [id number] [facility] 2019-04-24 00:00:00 2019-04-24 00:00:00 Refill Isidro [facility] Building 1.2.840.114 350.1.13.10 4.2.7.2.686 [id number] 220 [id number] 2019-04-12 21:42:00 2019-04-12 21:42:00 Outpatient [facility] [id number] [facility] 2019-04-09 10:45:00 2019-04-09 10:45:00 Outpatient [facility] [id number] [facility] 2019-04-03 00:00:00 2019-04-03 00:00:00 Refill Fiona Felix [facility] Building 1.2.840.114 350.1.13.10 4.2.7.2.686 [id number] 220 [id number] [facility] 2019-04-03 00:00:00 2019-04-03 00:00:00 Refill Isidro [facility] Building 1.2.840.114 350.1.13.10 4.2.7.2.686 [id number] 220 [id number] 2018-11-05 15:00:00 2018-11-05 15:00:[address] [facility] [id number] [facility] 2018-10-30 00:00:00 2018-10-30 00:00:00 Telephone Isidro [facility] Building 1.2.840.114 350.1.13.10 4.2.7.2.686 [id number] 220 [id number] [facility] 2018-10-30 00:00:00 2018-10-30 00:00:00 [facility] Building 1.2.840.114 350.1.13.10 4.2.7.2.686 [id number] 220 [id number] 2018-09-19 00:00:00 2018-09-19 00:00:00 Refill Nicole Andrea [facility] Building 1.2.840.114 350.1.13.10 4.2.7.2.686 [id number] 220 [id number] [facility] 2018-09-19 00:00:00 2018-09-19 00:00:00 Refill Nicole Andrea [facility] Building 1.2.840.114 350.1.13.10 4.2.7.2.686 [id number] 220 [id number] 2018-08-06 11:09:00 2018-08-06 11:09:00 [facility] [id number] [facility] 2018-04-23 01:12:00 2018-04-23 01:12:00 [facility] [id number] [facility] 2018-04-22 16:00:00 2018-04-22 16:00:00 Outpatient [facility] [id number] [facility] 2017-10-29 09:06:00 2017-10-29 09:06:00 Outpatient [facility] [id number] [facility] 2017-10-25 23:08:00 2017-10-25 23:08:00 [facility] [id number] [facility] 2017-10-25 15:00:00 2017-10-25 15:00:00 Out[facility] [id number] [facility] Results Test Description Test Time Test Comments Results Resul t Comments Source RADIOLOGY DOCUMENTATION 2024-05-1 5 22:21:46 [facility] by an unspecified provider. [facility] SPECIFIC [id number] 21:40:00* Test Item Value Reference Range Interpretation [...] = 3257) negative Negative - Negati ve [facility] 04:53:45* Test Item Value Reference Range Interpretation Comme nts MAGNESIUM (test code = 8939873994) 2.1 mg/dL 1.7-2.4 Lab Interpretation (test cod e = 37377-2) Normal [facility]. METABOLIC PANEL (48104)2022-09-17 04:53:25* Test Item Value Reference Range Interpretation Comme nts NA (test code = 3923663602) 142 mmol/L 135-145 K (test code = 6447170238) 4.0 mmol/L 3.5-5.0 CL (test code = 8785208045) 113 mmol/L 98-108 H CO2 TOTAL (test code = 7483490233) 26 mmol/L 23-31 AGAP (test code = 4074755626) 3 2-16 BUN (test code = 2373750942) 17 mg/dL 7-23 GLUCOSE (test code = 3474638613) 83 mg/dL 70-110 CREATININE (test code = 9097264255) 0.75 mg/dL 0.50-1.04 TOTAL BILI (test code = 8608612587) 0.3 mg/dL 0.1-1.1 CALCIUM (test code = 0321351796) 8.2 mg/dL 8.6-10.6 L T PROTEIN (test code = 2925891406) 6.6 g/dL 6.3-8.2 ALBUMIN (test code = 4053585846) 3.7 g/dL 3.5-5.0 ALK PHOS (test code = 6025184659) 68 U/L 34-122 ALTv (test code = 1742-6) 10 U/L 5-35 AST(SGOT) (test code = 4965448219) 12 U/L 13-40 L eGFR (test code = 7075727797) 84.3 mL/min/1.73m2 GRIFFIN (test code = GRIFFIN) [...] imaging tests). Lab Interpretation (test code = 28481-8) Abnormal [facility] [id number] 04:46:00* Test Item Value Reference Range Interpretation Comme [facility] POCT PREG (test code = 1605) Negative On board controls acceptable with C Line (test code = 3574) Yes POCT PREG LOT # (test code = 3575) [id number] POCT PREG TEST DATE ( test code = 3576) 02-07-2024 Lab Interpretation (test cod e = 24033-8) Normal [facility] WITH [id number] 04:41:49* Test Item Value Reference Range Interpretation Comme [facility] WBC (test code = 6690-2) 7.73 See_Comment [Automated [employer]] The system which generated this result transmitted reference range: 4.30 - 11.10 10*3/?L. The reference range was not used to interpret this result as normal/abnormal. RBC (test code = 789-8) 3.69 See_Comment L [Automated [employer] ge] The system which generated this result [...] 31.9 g/dL 31.6-35.1 RDW-SD (test code = 18542-6) 45.2 fL 39.0-49.9 RDW-CV (test code = 788-0) 14.3 % 12.0-15.5 PLT (test code = 777-3) 204 See_Comment [Automated [employer]] The system which generated this result transmitted reference range: 166 - 358 10*3/?L. The reference range was not used to interpret this result as normal/abnormal. MPV (test code = 01013-2) 10.2 fL 9.5-12.9 NRBC/100 WBC (test code = 0576090085) 0.0 See_Comment [Automated [employer]] The system which generated this result transmitted reference range: 0.0 - 10.0 /100 WBCs. The reference range was not used to interpret this result as normal/abnormal. NRBC x10^3 (test code = 8830569899) See_Comment [Automated [employer]] The system which generated this result transmitted reference range: 10*3/?L. The reference range was not used to interpret this result as normal/abnormal. GRAN MAT (NEUT) % (test code = 770-8) 70.4 % IMM GRAN % (test code = 4130394684) 0.50 % LYMPH % (test code = 736-9) 19.8 % MONO % (test code = 5905-5) 7.6 % EOS % (test code = 713-8) 1.4 % BASO % (test code = 706-2) 0.3 % GRAN MAT x10^3(ANC) (test code = 0801454187) 5.44 10*3/uL 1.88-7.09 IMM GRAN x10^3 (test code = 1046028138) 0.04 10*3/uL 0.00-0.06 LYMPH x10^3 (test code = 731-0) 1.53 10*3/uL 1.32-3.29 MONO x10^3 (test code = 742-7) 0.59 10*3/uL 0.33-0.92 EOS x10^3 (test code = 711-2) 0.11 10*3/uL 0.03-0.39 BASO x10^3 (test code = 704-7) 0.01-0.07 Lab Interpretation (test code = 48700-4) Abnormal [facility] MET[facility]OLIC PANEL (77968)2022-09-05 04:19:50* Test Item Value Reference Range Interpretation Comme nts NA (test code = 3268759253) 138 mmol/L 135-145 K (test code = 6837325394) 4.5 mmol/L 3.5-5.0 CL (test code = 9152194193) 107 mmol/L 98-108 CO2 TOTAL (test code = 0737264696) 26 mmol/L 23-31 AGAP (test code = 4075226605) 5 2-16 BUN (test code = 0179106672) 13 mg/dL 7-23 GLUCOSE (test code = 5615863809) 97 mg/dL 70-110 CREATININE (test code = 7606606473) 0.71 mg/dL 0.50-1.04 TOTAL BILI (test code = 0305170997) 0.6 mg/dL 0.1-1.1 CALCIUM (test code = 7942660014) 9.1 mg/dL 8.6-10.6 T PROTEIN (test code = 2524383176) 7.1 g/dL 6.3-8.2 ALBUMIN (test code = 9216286524) 4.2 g/dL 3.5-5.0 ALK PHOS (test code = 8513773530) 84 U/L 34-122 ALTv (test code = 1742-6) 15 U/L 5-35 AST(SGOT) (test code = 4529297147) 14 U/L 13-40 eGFR (test code = 3408772013) 89.8 mL/min/1.73m2 GRIFFIN (test code = GRIFFIN) [...] or urine or abnormalities in imaging tests). [facility] WITH [id number] 03:49:48* Test Item Value Reference Range Interpretation Comme nts WBC (test code = 6690-2) 8.89 See_Comment [Automated [employer]] The system which generated this result transmitted reference range: 4.30 - 11.10 10*3/?L. The reference range was not used to interpret this result as normal/abnormal. RBC (test code = 789-8) 4.01 See_Comment [Automated [employer]] The system which generated this result transmitted [...] g/dL 31.6-35.1 L RDW-SD (test code = 98848-7) 46.2 fL 39.0-49.9 RDW-CV (test code = 788-0) 14.1 % 12.0-15.5 PLT (test code = 777-3) 299 See_Comment [Automated messa ge] The system which generated this result transmitted reference range: 166 - 358 10*3/?L. The reference range was not used to interpret this result as normal/abnormal. MPV (test code = 92458-1) 10.5 fL 9.5-12.9 NRBC/100 WBC (test code = 5891632376) 0.0 See_Comment [Automated [employer]] The system which generated this result transmitted reference range: 0.0 - 10.0 /100 WBCs. The reference range was not used to interpret this result as normal/abnormal. NRBC x10^3 (test code = 6306784893) See_Comment [Automated messa ge] The system which generated this result transmitted reference range: 10*3/?L. The reference range was not used to interpret this result as normal/abnormal. GRAN MAT (NEUT) % (test code = 770-8) 83.0 % IMM GRAN % (test code = 9063523671) 0.60 % LYMPH % (test code = 736-9) 10.5 % MONO % (test code = 5905-5) 4.9 % EOS % (test code = 713-8) 0.8 % BASO % (test code = 706-2) 0.2 % GRAN MAT x10^3(ANC) (test code = 9090002490) 7.38 10*3/uL 1.88-7.09 H IMM GRAN x10^3 (test code = 4761258101) 0.05 10*3/uL 0.00-0.06 LYMPH x10^3 (test code = 731-0) 0.93 10*3/uL 1.32-3.29 L MONO x10^3 (test code = 742-7) 0.44 10*3/uL 0.33-0.92 EOS x10^3 (test code = 711-2) 0.07 10*3/uL 0.03-0.39 BASO x10^3 (test code = 704-7) 0.01-0.07 Lab Interpretation (test code = 35243-7) Abnormal [facility] [id number] 12:22:00* Test Item Value Reference Range Interpretation Comme nts POCT PREG (test code = 1605) Negative On board controls acceptable with C Line (test code = 3574) Yes POCT PREG LOT # (test code = 3575) [id number] POCT PREG TEST DATE ( test code = 3576) 96106 Lab Interpretation (test cod e = 13682-9) Normal [facility] [id number] 12:22:00* Test Item Value Reference Range Interpretation Comme nts POCT PREG (test code = 1605) Negative On board controls acceptable with C Line (test code = 3574) Yes POCT PREG LOT # (test code = 3575) [id number] POCT PREG TEST DATE ( test code = 357) 90148 Lab Interpretation (test cod e = 44218-1) Normal [facility]. METABOLIC PANEL (20257)2022-07-28 22:53:38* Test Item Value Reference Range Interpretation Comme nts NA (test code = 0945151330) 139 mmol/L 135-145 K (test code = 4054280978) 3.6 mmol/L 3.5-5.0 CL (test code = 5857959041) 107 mmol/L 98-108 CO2 TOTAL (test code = 7122625240) 25 mmol/L 23-31 AGAP (test code = 3520483489) 7 2-16 BUN (test code = 3988751713) 14 mg/dL 7-23 GLUCOSE (test code = 3853662063) 97 mg/dL 70-110 CREATININE (test code = 7959506436) 0.73 mg/dL 0.50-1.04 TOTAL BILI (test code = 4080328835) 0.6 mg/dL 0.1-1.1 CALCIUM (test code = 1974530262) 9.0 mg/dL 8.6-10.6 T PROTEIN (test code = 3153888868) 6.8 g/dL 6.3-8.2 ALBUMIN (test code = 1573044411) 4.1 g/dL 3.5-5.0 ALK PHOS (test code = 6971823607) 75 U/L 34-122 ALTv (test code = 1742-6) 13 U/L 5-35 AST(SGOT) (test code = 1604240239) 12 U/L 13-40 L eGFR (test code = 0059598558) 87.0 mL/min/1.73m2 GRIFFIN (test code = GRIFFIN) [...] imaging tests). Lab Interpretation (test code = 59813-4) Abnormal [facility] WITH [id number] 22:41:58* Test Item Value Reference Range Interpretation Comme nts WBC (test code = 6690-2) 7.61 See_Comment [Automated [employer]] The system which generated this result transmitted reference range: 4.30 - 11.10 10*3/?L. The reference range was not used to interpret this result as normal/abnormal. RBC (test code = 789-8) 4.07 See_Comment [Automated [employer]] The system which generated this result [...] 33.4 g/dL 31.6-35.1 RDW-SD (test code = 63146-8) 43.9 fL 39.0-49.9 RDW-CV (test code = 788-0) 13.8 % 12.0-15.5 PLT (test code = 777-3) 225 See_Comment [Automated [employer]] The system which generated this result transmitted reference range: 166 - 358 10*3/?L. The reference range was not used to interpret this result as normal/abnormal. MPV (test code = 23582-0) 9.7 fL 9.5-12.9 NRBC/100 WBC (test code = 0034935726) 0.0 See_Comment [Automated [employer]] The system which generated this result transmitted reference range: 0.0 - 10.0 /100 WBCs. The reference range was not used to interpret this result as normal/abnormal. NRBC x10^3 (test code = 8650362105) See_Comment [Automated [employer]] The system which generated this result transmitted reference range: 10*3/?L. The reference range was not used to interpret this result as normal/abnormal. GRAN MAT (NEUT) % (test code = 770-8) 81.5 % IMM GRAN % (test code = 0662891799) 0.40 % LYMPH % (test code = 736-9) 11.0 % MONO % (test code = 5905-5) 6.3 % EOS % (test code = 713-8) 0.5 % BASO % (test code = 706-2) 0.3 % GRAN MAT x10^3(ANC) (test code = 4248169492) 6.20 10*3/uL 1.88-7.09 IMM GRAN x10^3 (test code = 7025132906) 0.03 10*3/uL 0.00-0.06 LYMPH x10^3 (test code = 731-0) 0.84 10*3/uL 1.32-3.29 L MONO x10^3 (test code = 742-7) 0.48 10*3/uL 0.33-0.92 EOS x10^3 (test code = 711-2) 0.04 10*3/uL 0.03-0.39 BASO x10^3 (test code = 704-7) 0.01-0.07 Lab Interpretation (test code = 07290-8) Abnormal [facility] HEMOGLOBIN A1C [id number] 17:58:00* Test Item Value Reference Range Interpretation Comme nts POCT HBA1C (test code = 4548-4) 4.8 % 4-6 [facility] HEMOGLOBIN A1C [id number] 17:58:00* Test Item Value Reference Range Interpretation Comme nts POCT HBA1C (test code = 4548-4) 4.8 % 4-6 [facility] Notes Date/Time Note Provider Source 2024-10-08 15:02:54 Patient was schedule for 04/2025 - that was next available T Antoinette Goodwin [facility] 2024-10-07 13:50:16 Noted, pt needs to come in for visit for refill to be given. T [facility] 2024-10-07 13:09:34 Received request for new prescription for controlled Substance from [facility]. Placed in provider's basket for review. Jeanne Feliciano [facility] 2024-07-09 17:22:12 Received Outpatient Radiology Services Report from [facility] and have scanned to patient's chart. Addie Jarrett [facility] 2024-01-14 11:45:00 Images from the original note were not included. Venipuncture collection performed by clean technique on the right anticubitus. Total of 1 attempts were made. Slight pressure and a bandage/dressing were applied to the site(s). The patient experienced no complications. The following specimens were processed according to instructions and sent to [facility] laboratories per lab order on 01/14/2024 : LT BLUE SST 2 RED LAV 2 PPT DK GREEN (LiHep) DK GREEN (SodH) URABN DK BLUE (K2) DK BLUE (S) ACD Blood Culture NIPT/NTD [facility] 2023-12-06 16:38:56 Name and verified, pt is aware of results. Pt verbalized understanding. Jayne Hess RN 12/06/2023 4:39 PM Jayne Hess RN [facility] 2023-12-06 15:48:24 Pt received her test results via [employer], pt would like to discuss it. Chantelle Gaston [facility] 2023-12-06 12:00:00 Images from the original note were not included. Venipuncture collection performed by clean technique on the left anticubitus. Total of 1 attempts were made. Slight pressure and a bandage/dressing were applied to the site(s). The patient experienced no complications. The following specimens were processed according to instructions and sent to [facility] laboratories per lab order on 12/06/2023 : Only here for Dr Hartman' labs today per patient. LT BLUE SST 2 RED 1 LAV PPT DK GREEN (LiHep) DK GREEN (SodH) URBAN DK BLUE (K2) DK BLUE (S) ACD Blood Culture NIPT/NTD [facility] 2023-11-25 10:25:06 Refill on file. No additional refills at this time. Order Information Date and Time Ordering Department Ordering/Authorizing 10/11/2023 11:51 AM [facility] Emily Gil, JOSE Outpatient Medication Detail Disp Refills Start End NORMA topiramate 25 mg tablet 90 tablet 1 10/11/2023 -- -- Sig: Take 2 tablets by mouth in the morning. Sent to pharmacy as: topiramate 25 mg tablet (TOPAMAX) Class: eRX Route: Oral Order: [id number] Date/Time Signed: 10/11/2023 11:51 E-Prescribing Status: Receipt confirmed by pharmacy (10/11/2023 11:51 AM CDT) Jeanne Ball RN [facility] 2023-10-11 12:00:00 Images from the original note were not included. Venipuncture collection performed by clean technique on the left anticubitus. Total of 1 attempts were made. Slight pressure and a bandage/dressing were applied to the site(s). The patient experienced no complications. The following specimens were processed according to instructions and sent to [facility] laboratories per lab order on 10/11/2023 : LT BLUE SST 1 RED LAV PPT DK GREEN (LiHep) DK GREEN (SodH) URBAN DK BLUE (K2) DK BLUE (S) ACD Blood Culture NIPT/NTD T [facility] 2023-10-03 13:17:53 This is the last refill I am approving until face to face, please facilitate office visit. T [facility] 2023-10-02 09:24:02 Addended by: LEE ANN PENA on: 10/02/2023 09:24 AM Modules accepted: Orders T Lee Ann Pena MA [facility] 2023-10-02 08:53:37 Facilitate appointment, needs labs- give on 15 pills to last until visit. T [facility] 2023-10-01 14:46:39 Recent Visits Date Type [...] 125 mcg tablet (SYNTHROID) Greta Lopez MA [facility] 2023-06-29 12:57:19 Tx sent for Trich and BV Tx [facility] 2023-06-24 08:24:00 Please have patient get ordered labs from Saud sidra. [facility] 2023-06-24 07:48:19 Images from the original note were not included. Notes: 05/27/23 Last Refilled: [facility] - [address] TSH Date Value 11/30/2022 0.34 mIU/L (L) 09/04/2022 0.19 mIU/L (L) 08/15/2022 0.06 mIU/L (L) 02/28/2022 <0.02 mIU/L (L) 08/23/2021 0.95 mIU/L 04/22/2012 <0.015 uIU/mL (A) 03/11/2012 <0.015 uIU/mL (A) 06/20/2011 <0.015 uIU/mL (A) 06/05/2011 <0.01 uIU/mL (A) 05/09/2010 <0.015 uIU/mL (A) TSH, 3RD GENERATION-Q (mIU/L) Date Value 01/28/2020 0.50 09/05/2015 0.01 (L) Recent Visits Date Type Provider Dept 12/13/22 Office Visit Faye Napolse FNP [facility] 09/04/22 Office [...] (05/27/2023) by JUANY Ruby Endocrinology: Hypothyroid Agents [id number]/22/2023 01:38 PM Protocol Details Manual Review: ENT providers forward refill request to PCP. TSH in normal range and within 360 days Valid encounter within last 12 months To be filled at: [facility]/pharmacy [address] [place] [address] Alexus Corley MA [facility] 2023-06-11 16:13:31 Images from the original note were not included. Requested Renewals triamcinolone acetonide 0.1 % ointment Sig: Apply to area(s) 2 (two) times daily. Disp: 30 g Refills: 0 Start: 06/11/2023 Class: eRX Non-formulary For: Eczema, unspecified type Last ordered: 6 months ago (12/13/2022) by JUANY Ruby Provider Review Required [id number]/11/2023 04:13 PM Protocol Details This refill cannot be delegated Valid encounter within last 12 months To be filled at: [facility]/pharmacy [address] [place] [address] Recent Visits Date Type Provider Dept 12/13/22 Office Visit Faye Napoles FNP [facility] 09/04/22 Office Visit Faye Napoles FNP [facility] Showing recent visits within past 540 days with a meds authorizing provider and meeting all other requirements Future Appointments No visits were found meeting these conditions. Showing future appointments within next 150 days with a meds authorizing provider and meeting all other requirements Kaye Moore LVN [facility] 2023-05-27 09:15:50 Last Refilled: LEVOTHYROXINE 125 mcg tablet 90 tablet 1 12/02/2022 -- No Sig: TAKE 1 TABLET BY MOUTH EVERY DAY IN THE MORNING Sent to pharmacy as: levothyroxine 125 mcg tablet (SYNTHROID) Class: eRX Route: Oral Order: [id number] Date/Time Signed: 12/02/2022 08:40 E-Prescribing Status: Receipt [...] and meeting all other requirements Laxmi Parra [facility] 2023-03-04 14:21:21 Images from the original note were not included. Last Refilled: 03/04/22 Notes: [facility] [address] Recent Visits Date Type Provider Dept 12/13/22 Office Visit Faye Napoles FNP [facility] 09/04/22 Office Visit Faye Napoles FNP [facility] Showing recent visits within past 540 days with a meds authorizing provider and meeting all other requirements Future Appointments Date Type Provider Dept 03/07/23 Appointment Faye Napoles JUANY [facility] Showing future appointments [...] ago (01/28/2023) by JUANY Ruby Neurology: Anticonvulsants-Topiramate [id number]/02/2023 06:10 PM Protocol Details status completed Manual Review: Forward refill prescription to provider if patient has had any seizure activity or since last office visit Topiramate in normal range and within 360 days Valid encounter within last 12 months To be filled at: [facility]/pharmacy [address] [place] [address] Corley MA [facility] 2022-10-22 13:49:05 Formatting of this n [...] last 12 months To be filled at: [facility]/pharmacy [address] [place] [address] Recent Visits Date Type Provider Dept 09/04/22 [...] meeting all other requirements Kaye Moore LVN [facility] 2022-10-18 16:00:38 Formatting of this n ote might be different from the original. ANNE 08/17/22 NOV 01/21/23 Per ANNE note: -- Continue Phentermine 37.5 mg daily, tolerates well, weight remains unchanged from ANNE at 254 lbs. Bibiana Rcoha LVN [facility] 2022-10-18 15:44:34 Formatting of this n ote might be different from the original. Pt is requesting a refill on RX. phentermine 37.5 mg capsule Yvette Senior [facility] 2022-10-15 11:18:46 Formatting of this n [...] last 12 months To be filled at: [facility]/pharmacy #[id number] AT [facility] Recent Visits Date Type Provider Dept 09/04/22 [...] all other requirements Lee Ann Pena MA [facility] 2022-09-21 10:03:30 Formatting of this n ote might be different from the original. Patient scheduled with Dr. Hartman 09/24/22. Ramses Crowley RN 09/21/2022 10:03 AM Ramses Crowley RN [facility] 2022-09-20 16:59:30 Formatting of this n [...] RN 09/20/2022 4:59 PM Peggy Mcneil RN [facility] 2022-09-20 16:57:00 Formatting of this n [...] RN 09/20/2022 4:59 PM Peggy Mcneil RN [facility] 2022-09-20 13:04:15 Formatting of this n ote might be different from the original. Returned patients call, no answer, unable to leave voicemail. Peggy Mcneil RN 09/20/2022 1:36 PM [facility] 2022-09-20 10:58:59 Formatting of this n ote might be different from the original. PT called and wanted to know what the next step going forward is going to be now that's she has been verified a hernia? Please advise Turner Amador [facility] 2022-09-20 07:58:03 Formatting of this n ote might be different from the original. Sending patient Yodleet message. Bibiana Rocha LVN [facility] 2022-09-19 14:38:54 Formatting of this n ote might be different from the original. After speaking to Dr. Dominguez, she is to double her dose for 3 days and then go back to her normal dose. [facility] 2022-09-19 10:17:55 Formatting of this n ote might be different from the original. Spoke to patient. 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 She has been to [facility] ER and was given emergency dose of cortisol and fluids for dehydration. Still reports dizziness, dehydration, feeling like she might faint. Not sure what she needs to do. [facility] 2022-09-19 09:54:11 Formatting of this n ote might be different from the original. Patient would like a nurse to call her marshall regarding her Addisons disease. Urszula Augustin [facility] 2022-09-18 16:47:44 Formatting of this n ote might be different from the original. Unable to leave voice mail due to inbox being full. [facility] 2022-09-18 10:25:44 Formatting of this n ote might be different from the original. Views CT scan results. Do not describes any incisional hernias. Describes small bilateral inguinal hernias with fat. Small left ovarian cysts but the rest is ok. Likely patient is taking longer healing and pain is related to that. Brooklyn Hartman MD [facility] 2022-09-18 10:19:26 Formatting of this n ote [...] in a crisis with her aston's disease. Voucheres [facility] 2022-09-18 10:12:44 Formatting of this n ote might be different from the original. Pt is wanting to discuss results with nurse and is wanting to know the next step. [facility] Bri Broussard [facility] 2022-09-17 03:14:00 Formatting of this n ote might be different from the original. Awake, alert oriented X4, respiratory even and unlabored,skin w/d color appropriate for race, moves all ext well, pt encouraged to follow up with pcp and or return as needed Pt given printed and verbal discharge instructions regarding Syncope, Dizziness, Pain of right hip, hx of Ballard's disease , patient verbralized understanding and signature obtained, patient denies any other concerns. Advised to seek medical attention for new/prolonged/worsening of symptoms, No adverse reaction to meds given in ER noted upon discharge Pt ambulated to the lobby with steady gait Voucheres [facility] 2022-09-17 01:03:03 Formatting of this n ote might be different from the original. Gave report to KESHAV Hernandez. Venessa Guzman RN [facility] 2022-09-17 01:03:03 Formatting of this n ote might be different from the original. Assumed care of patient, received report from KESHAV Echols. Visitor at bedside. Pt awaiting Ct-scan results. Will continue to monitor. [facility] 2022-09-16 22:22:01 Formatting of this n [...] on the right side. Cookie Hernandez RN [facility] 2019-05-20 13:53:23 P Altagracia Welch [facility] 2019-05-18 16:36:36 Patient scheduled and notified. Makenzie Silveira [facility] 2019-05-18 16:18:56 Per provider: Patient will need to set up tele visit prior to sending out refills. ANNE was one year ago Routing comment Please assist in scheduling telemed visit Britt Marti LVN Britt Marti LVN [facility] 2019-05-18 14:49:05 Pt calling back in regards to medication refill request. Judi Tong [facility] 2019-05-15 14:09:57 Anne: 05/19/2018 Nov: 11/19/2018 No show Nov: 04/03/2019 No show Nov: 07/24/2019 Provider must authorize/send controled medication Britt Marti LVN [facility]
[2024-10-17] MEDS ORDERED: MORPHINE 4 MG/ML SYR ONE (21:06)
[2024-10-17] MEDS ORDERED: ONDANSETRON 4 MG/2 ML VIAL ONE (21:06)
[2024-10-17] MEDS ORDERED: NA CHLORIDE 0.9% 1,000 ML ONE (21:07)
[2024-10-17] MEDS ORDERED: FAMOTIDINE 20 MG/2 ML VIAL IV ONE ×2 (21:07→23:41)
[2024-10-17 21:34] LABS: Urine Microscopic Reflex YN NO UMIC
[2024-10-17 21:40] LABS: Absolute Lymphocytes (CBC) 1.1 K/uL (0.7-4.9); Hematocrit 29.9 % (36.0-45.0); Hemoglobin 10.2 g/dL (12.0-15.0); MCH 30.0 pg (27.0-35.0); MCHC 34.1 g/dL (32.0-36.0); MCV 88.1 fL (80-100); MPV 7.7 fL (7.6-11.3); Nucleated RBC Absolute Count 0.0 (0-0); Nucleated Red Blood Cells % 0.0 % (0-0); RBC Red Blood Cell Count 3.40 M/uL (3.86-4.86); White Blood Count 4.60 thou/uL (4.3-10.9)
[2024-10-17 21:54] LABS: Albumin 3.4 g/dL (3.4-5.0); Albumin/Globulin Ratio 1.2 (1.1-1.8); Alkaline Phosphatase 64 U/L (45-117); Anion Gap 6.6 mEq/L (5.0-15.0); BUN Blood Urea Nitrogen 19 mg/dL (7-18); Globulin 2.9 g/dL (2.3-3.5); Glucose Level 86 mg/dL (74-106); Lipase 28 U/L (13-75); Potassium 3.6 mEq/L (3.5-5.1)
[2024-10-17 22:03] LABS: ALT/SGPT < 14 U/L (13-56); AST/SGOT < 10 U/L (15-37)
--- NOTE | 2024-10-17 22:31 | RAD REPORT ---
EXAMINATION: Abdomen Pelvis W Contrast CLINICAL INDICATION: Female, 43 years old.ABD PAIN TECHNIQUE: CT abdomen and pelvis was performed, after the administration of IV contrast, [facility]. Axial, sagittal and coronal reconstructions were obtained. One or more of the following dose reduction techniques were used: Automated exposure control, adjustment of the mA and/o r kV according to patient size, and/or iterative reconstruction. Unless otherwise specified, incidental findings do not require dedicated imaging follow-up. [id number]. COMPARISON: 11/11/2023 FINDINGS: LOWER CHEST: No acute process identified.No significant pericardial effusion. UPPER GI: No significant abnormality. LIVER: Mild intrahepatic biliary duct dilatation. Subcentimeter low-density liver lesions are unchang ed and likely benign. GALLBLADDER/BILE DUCTS: Cholecystectomy. Mild extra-hepatic biliary ductal dilatation is likely relat ed to the post-cholecystectomy state. Consider correlating with LFT's.? PANCREAS: No mass, ductal dilation, or mark-pancreatic fluid. SPLEEN: Low density splenic lesion(s), statistically benign and unchanged. ADRENALS: No adrenal masses. KIDNEYS AND URETERS: No hydronephrosis.No suspicious renal mass. ABDOMINAL AORTA AND OTHER VESSELS: Normal caliber aorta and IVC. PERITONEUM: No abnormal free fluid. No free air. LYMPH NODES: No pathologic lymphadenopathy. ABDOMINAL WALL: Unremarkable SMALL BOWEL/COLON: Small bowel has normal course and caliber. No colonic wall thickening or pericolon ic inflammatory changes.Normal appendix. URINARY BLADDER: Underdistended but grossly unremarkable. REPRODUCTIVE ORGANS: No pathologic process. MUSCULOSKELETAL: Sclerotic focus in right femur is unchanged and likely a bone island. No acute fract ure. ADDITIONAL FINDINGS: None. IMPRESSION: No acute findings within the abdomen or pelvis. No appendicitis.
--- NOTE | 2024-10-17 23:29 | EDPHYS ---
Physician Documentation [facility] Name: Lavinia Katz Age: 43 yrs Sex: Female : 1980 Arrival Date: 10/17/2024 Time: 19:51 Bed 18 Private MD: ED Physician Shabbir Hendrix HPI: 10/17 23:22 This 43 yrs old Female presents to ER via Ambulatory with complaints of mehul Abdominal Pain, Low Back Pain. 23:22 The patient presents with pain that is acute, that is chronic, with no known mechanism mehul of injury. The symptoms are located in the low back. The pain does not radiate. The problem was sustained from unknown cause. Onset: The symptoms/episode began/occurred 1 day(s) ago. Modifying factors: The patient symptoms are alleviated by nothing. Associated signs and symptoms: The patient has no apparent associated signs or symptoms. Severity of symptoms: At their worst the symptoms were moderate, in the emergency department the symptoms are unchanged. The patient has experienced similar episodes in the past, a few times. 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 - Infectious Disease History:: Denies. - Social history:: Smoking status: Reported history of juuling and/or vaping. ROS: 23:24 Constitutional: Negative for fever, chills, and weight loss, Eyes: Negative for injury, mehul pain, redness, and discharge, ENT: Negative for injury, pain, and discharge, Neck: Negative for injury, pain, and swelling, Cardiovascular: Negative for chest pain, palpitations, and edema, Respiratory: Negative for shortness of breath, cough, wheezing, and pleuritic chest pain, Back: Negative for injury and pain, : Negative for injury, bleeding, discharge, and swelling, MS/Extremity: Negative for injury and deformity, Skin: Negative for injury, rash, and discoloration, Neuro: Negative for headache, weakness, numbness, tingling, and seizure, Psych: Negative for depression, anxiety, suicide ideation, homicidal ideation, and hallucinations, Allergy/Immunology: Negative for hives, rash, and allergies, Endocrine: Negative for neck swelling, polydipsia, polyuria, polyphagia, and marked weight changes, Hematologic/Lymphatic: Negative for swollen nodes, abnormal bleeding, and unusual bruising, 23:24 Abdomen/GI: Positive for abdominal pain, of the posterior aspect of right lateral abdomen, anterior aspect of right lateral abdomen and right lower quadrant, Exam: 23:24 Constitutional: This is a well developed, well nourished patient who is awake, alert, mehul and in no acute distress. Head/Face: Normocephalic, atraumatic. Eyes: Pupils equal round and reactive to light, extra-ocular motions intact. Lids and lashes normal. Conjunctiva and sclera are non-icteric and not injected. Cornea within normal limits. Periorbital areas with no swelling, redness, or edema. ENT: Nares patent. No nasal discharge, no septal abnormalities noted. Tympanic membranes are normal and external auditory canals are clear. Oropharynx with no redness, swelling, or masses, exudates, or evidence of obstruction, uvula midline. Mucous membranes moist. Neck: Trachea midline, no thyromegaly or masses palpated, and no cervical lymphadenopathy. Supple, full range of motion without nuchal rigidity, or vertebral point tenderness. No Meningismus. Chest/axilla: Normal chest wall appearance and motion. Nontender with no deformity. No lesions are appreciated. Cardiovascular: Regular rate and rhythm with a normal S1 and S2. No gallops, murmurs, or rubs. Normal PMI, no JVD. No pulse deficits. Respiratory: Lungs have equal breath sounds bilaterally, clear to auscultation and percussion. No rales, rhonchi or wheezes noted. No increased work of breathing, no retractions or nasal flaring. Back: No spinal tenderness. No costovertebral tenderness. Full range of motion. Skin: Warm, dry with normal turgor. Normal color with no rashes, no lesions, and no evidence of cellulitis. MS/ Extremity: Pulses equal, no cyanosis. Neurovascular intact. Full, normal range of motion., bilateral aka Neuro: Awake and alert, GCS 15, oriented to person, place, time, and situation. Cranial nerves II-XII grossly intact. Motor strength 5/5 in all extremities. Sensory grossly intact. Cerebellar exam normal. Normal gait. Psych: Awake, alert, with orientation to person, place and time. Behavior, mood, and affect are within normal limits. 23:24 Abdomen/GI: Inspection: abdomen appears normal, Bowel sounds: normal, Palpation: mild abdominal tenderness, moderate abdominal tenderness, in the right lower quadrant, Liver: no appreciated palpable abnormalities, Hernia: not appreciated, 23:24 Skin: abscess, not appreciated, cellulitis, is not appreciated, induration, is not appreciated, injury, is not appreciated, no rash present. Turgor: is excellent, Vital Signs: 20:07 BP 135 / 85; Pulse 73; Resp 18; Temp 97.9; Pulse Ox 100% ; Weight 86.18 kg; Height 5 cp4 ft. 5 in. ; Pain 10/10; 21:39 BP 114 / 73; Pulse 62; Resp 18; Temp 97.8(O); Pulse Ox 98% on R/A; Pain 8/10; sd4 23:50 BP 142 / 87; Pulse 65; Resp 18; Pulse Ox 98% on R/A; sd4 20:07 Body Mass Index 31.62 (86.18 kg, 165.1 cm) cp4 20:07 Pain Scale: Adult cp4 21:39 Pain Scale: Adult sd4 MDM: 19:58 Medical Screening Exam initiated mehul 23:26 Differential diagnosis: strain, sciatica, contusion, Herniated disc UTI. Data reviewed: [facility] vital signs, nurses notes, lab test result(s), radiologic studies. Consideration of Admission/Observation Escalation of care including admission/observation considered. I considered the following discharge prescriptions or medication management in the emergency department Medications were administered in the Emergency Department. See MAR. Independent interpretation of the following test(s) in the Emergency Department CT Scan: My interpretation is ct ab/ pel. Test considered but Not performed: MRI: no mrcp. Care significantly affected by the following chronic conditions: addisons, bipolar, cp, fibro, hypothyroid. 10/17 19:58 Order name: CBC with Diff; Complete Time: 21:59 [facility] 10/17 19:58 Order name: CMP; Complete Time: 22:16 [facility] 10/17 19:58 Order name: Lipase; Complete Time: 22:16 [facility] 10/17 19:58 Order name: Test, Urine; Complete Time: 21:59 [facility] 10/17 19:59 Order name: UA Rfx Quique Cult if indicated; Complete Time: 21:59 [facility] 10/17 19:58 Order name: CT Abd/Pelvis - IV Contrast Only; Complete Time: 22:31 [facility] 10/17 19:58 Order name: IV Saline Lock; Complete Time: 21:36 [facility] 10/17 19:58 Order name: Labs collected and sent; Complete Time: 21:36 [facility] Administered Medications: 21:33 Drug: Famotidine IVP 20 mg IVP once; dilute with 10 mL 0.9% NaCl; give over 2 minutes sd4 Route: IVP; Site: right antecubital; 23:50 Follow up: Response: No adverse reaction sd4 21:33 Drug: NS 0.9% IV 1000 ml IV at 1 bolus Per protocol; to be given as a bolus over 60 sd4 minutes Route: IV; Rate: 1 bolus; Site: right antecubital; 23:50 Follow up: Response: No adverse reaction; IV Status: Completed infusion sd4 21:34 Drug: Ondansetron IVP 4 mg IVP once; over 2 minutes Route: IVP; Site: right antecubital;sd4 23:50 Follow up: Response: No adverse reaction sd4 23:50 Follow up: Response: No adverse reaction sd4 21:34 Drug: morphine IVP or IV 4 mg IVP once over 4 mins Route: IVP; Infused Over: 4 mins; sd4 Site: right antecubital; 23:50 Follow up: Response: No adverse reaction sd4 23:50 Drug: Solu-CORTEF IVP 100 mg IVP once Route: IVP; Site: right antecubital; sd4 23:50 Follow up: Response: No adverse reaction sd4 Disposition Summary: 10/17/24 23:28 Discharge Ordered Notes: Location: Home mehul Problem: new mehul Symptoms: have improved mehul Condition: Stable mehul Diagnosis - Abdominal tenderness mehul - Unspecified symptoms and signs involving the musculoskeletal system mehul - Bipolar disorder, unspecified mehul Followup: mehul - With: Private Physician - When: 2 - 3 days - Reason: Recheck today's complaints, Continuance of care, Re-evaluation by your physician Discharge Instructions: - Discharge Summary Sheet mehul - Abdominal Pain, Adult mehul - Musculoskeletal Pain mehul - Abdominal Pain, Adult, [id number] mehul - Mixed Bipolar Disorder mehul Forms: - Medication Reconciliation Form mehul - Antibiotic Education mehul - Prescription Opioid Use mehul - Patient Portal Instructions mehul - Leadership Thank You Letter mehul - Work release form [email or web address] Prescriptions: - ondansetron 4 mg Oral Tablet,disintegrating - take 1 tablet ORAL route every 6 hours as needed for nausea and vomiting; 20 mehul tablet; Refills: 0, Product Selection Permitted - Pepcid 20 mg Oral Tablet - take 1 tablet ORAL route every 12 hours for 10 days; 20 tablet; Refills: 0, mehul Product Selection Permitted - dicyclomine 20 mg Oral tablet - take 1 tablet ORAL route 4 times per day; 28 tablet; Refills: 0, Product mehul Selection Permitted Signatures: Dispatcher [employer] EDMS Shabbir Hendrix MD MD cha Potter, Christina cp4 Treva Mir, RN RN sd4 Corrections: (The following items were deleted from the chart) 19:59 19:59 CBC+H.LAB.BRZ ordered. EDMS EDMS 19:59 19:59 COMPREHENSIVE METABOLIC PANEL+C.LAB.BRZ ordered. EDMS EDMS 19:59 19:59 LIPASE+C.LAB.BRZ ordered. EDMS EDMS 19:59 19:59 Test, Urine+UC.LAB.BRZ ordered. EDMS EDMS 19:59 19:59 Abdomen Pelvis W Con+CT.RAD.BRZ ordered. EDMS EDMS 19:59 19:59 UA Rfx Quique Cult if indicated+U.LAB.BRZ ordered. EDMS EDMS
--- NOTE | 2024-10-17 23:29 | ER ---
Nurse's Notes [facility] Name: Lavinia Katz Age: 43 yrs Sex: Female : 1980 Arrival Date: 10/17/2024 Time: 19:51 Bed 18 Private MD: Diagnosis: Abdominal tenderness;Unspecified symptoms and signs involving the musculoskeletal system;Bipolar disorder, unspecified Presentation: 10/17 20:07 Chief complaint: Patient states: abdominal pain that is radiating to the back that cp4 started on Saturday. Reports nausea. Coronavirus screen: Client denies travel out of the [place] in the last 14 days. At this time, the client does not indicate any symptoms associated with coronavirus-19. Ebola Screen: Patient negative for fever greater than or equal to 101.5 degrees Fahrenheit, and additional compatible Ebola Virus Disease symptoms Patient denies exposure to infectious person. Patient denies travel to an Ebola-affected area in the 21 days before illness onset. No symptoms or risks identified at this time. Initial Sepsis Screen: Does the patient meet any 2 criteria? No. Patient's initial sepsis screen is negative. Does the patient have a suspected source of infection? No. Patient's initial sepsis screen is negative. Risk Assessment: Do you want to hurt yourself or someone else? Patient reports no desire to harm self or others. Onset of symptoms was October 12, 2024. 20:07 Method Of Arrival: Ambulatory cp4 20:07 Acuity: KIKA 3 cp4 Triage Assessment: 20:08 General: Appears in no apparent distress. uncomfortable, Behavior is calm, cooperative, cp4 appropriate for age. Pain: Complains of pain in abdomen Pain radiates to back Pain currently is 10 out of 10 on a pain scale. GI: Reports nausea. 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 - Infectious Disease History:: Denies. - Social history:: Smoking status: Reported history of juuling and/or vaping. Screenin:39 [facility] ED Fall Risk Assessment (Adult) History of falling in the last 3 months, sd4 including since admission No falls in past 3 months (0 pts) Confusion or Disorientation No (0 pts) Intoxicated or Sedated No (0 pts) Impaired Gait No (0 pts) Mobility Assist Device Used No (0 pt) Altered Elimination No (0 pt) Score/Fall Risk Level 0 - 2 = Low Risk Oriented to surroundings, Maintained a safe environment, Educated pt \T\ family on fall prevention, incl call for assistance when getting out of bed, Assessed \T\ reinforced patient's understanding of fall precautions, Hourly rounding (assess needs \T\ fall precautionary measures) done. Abuse screen: Denies threats or abuse. Denies injuries from another. Nutritional screening: No deficits noted. Tuberculosis screening: No symptoms or risk factors identified. Assessment: 21:39 Reassessment: Patient and/or family updated on plan of care and expected duration. Pain sd4 level reassessed. Patient is alert, oriented x 3, equal unlabored respirations, skin warm/dry/pink. reports abdominal and back pain. General: Appears in no apparent distress. comfortable, Behavior is calm, cooperative. Pain: Complains of pain in back and abdomen Quality of pain is described as Pain began 2-3 days ago. Is continuous. Neuro: No deficits noted. 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 Cardiovascular: Reports nausea. Respiratory: No deficits noted. Airway is patent Trachea midline Respiratory effort is even, unlabored, Respiratory pattern is regular, symmetrical. GI: Bowel sounds present X 4 quads. Abdomen is tender to palpation in right lower quadrant Reports lower abdominal pain, cramping, nausea. : No deficits noted. No signs and/or symptoms were reported regarding the genitourinary system. EENT: No deficits noted. No signs and/or symptoms were reported regarding the EENT system. Derm: No deficits noted. No signs and/or symptoms reported regarding the dermatologic system. Musculoskeletal: No deficits noted. No signs and/or symptoms reported regarding the musculoskeletal system. Range of motion: intact in all extremities. Vital Signs: 20:07 BP 135 / 85; Pulse 73; Resp 18; Temp 97.9; Pulse Ox 100% ; Weight 86.18 kg; Height 5 cp4 ft. 5 in. ; Pain 10/10; 21:39 BP 114 / 73; Pulse 62; Resp 18; Temp 97.8(O); Pulse Ox 98% on R/A; Pain 8/10; sd4 23:50 BP 142 / 87; Pulse 65; Resp 18; Pulse Ox 98% on R/A; sd4 20:07 Body Mass Index 31.62 (86.18 kg, 165.1 cm) cp4 20:07 Pain Scale: Adult cp4 21:39 Pain Scale: Adult sd4 ED Course: 19:54 Patient arrived in ED. [email or web address] 19:58 Shabbir Hendrix MD is Attending Physician. [facility] 20:08 Triage completed. cp4 20:08 Arm band placed on right wrist. Patient placed in waiting room. cp4 20:56 Treva Mir, RN is Primary Nurse. sd4 21:39 Patient has correct armband on for positive identification. Bed in low position. Call sd4 light in reach. Side rails up X 1. Provided Education on: Pain. 21:39 No provider procedures requiring assistance completed. Inserted saline lock: 20 gauge sd4 in right antecubital area, using aseptic technique. Blood collected. Flushed with 10 mL NS. 22:13 CT Abd/Pelvis - IV Contrast Only In Process Unspecified. EDMS 23:50 IV discontinued, intact, bleeding controlled, No redness/swelling at site. Pressure sd4 dressing applied. Administered Medications: 21:33 Drug: Famotidine IVP 20 mg IVP once; dilute with 10 mL 0.9% NaCl; give over 2 minutes sd4 Route: IVP; Site: right antecubital; 23:50 Follow up: Response: No adverse reaction sd4 21:33 Drug: NS 0.9% IV 1000 ml IV at 1 bolus Per protocol; to be given as a bolus over 60 sd4 minutes Route: IV; Rate: 1 bolus; Site: right antecubital; 23:50 Follow up: Response: No adverse reaction; IV Status: Completed infusion sd4 21:34 Drug: Ondansetron IVP 4 mg IVP once; over 2 minutes Route: IVP; Site: right antecubital;sd4 23:50 Follow up: Response: No adverse reaction sd4 23:50 Follow up: Response: No adverse reaction sd4 21:34 Drug: morphine IVP or IV 4 mg IVP once over 4 mins Route: IVP; Infused Over: 4 mins; sd4 Site: right antecubital; 23:50 Follow up: Response: No adverse reaction sd4 23:50 Drug: Solu-CORTEF IVP 100 mg IVP once Route: IVP; Site: right antecubital; sd4 23:50 Follow up: Response: No adverse reaction sd4 Medication: 21:39 VIS not applicable for this client. sd4 Outcome: 23:28 Discharge ordered by . mehul 23:50 Discharged to home ambulatory, with family, sd4 23:50 Condition: stable 23:50 Discharge instructions given to patient, Instructed on discharge instructions, follow up and referral plans. medication usage, Demonstrated understanding of instructions, follow-up care, medications, Prescriptions given X 3, 0824 00:45 Discharged to home ambulatory, with family, vc1 Condition: stable Discharge instructions given to patient, Instructed on discharge instructions, follow up and referral plans. medication usage, Demonstrated understanding of instructions, follow-up care, medications, Prescriptions given X 3, 00:46 Patient left the ED. vc1 Signatures: Dispatcher [employer] EDMS Shabbir Hendrix MD MD cha Jeffries, Jennifer jj6 Ely Barry, RN RN vc1 Carmen Ingram cp4 Treva Mir RN RN sd4
[2024-10-17] MEDS ORDERED: HYDROCORTISONE SUC 100 MG INJ ONE (23:51)
[2024-10-18 00:56] VITALS: TEMP 97.8; O2SAT 98
[2024-10-18 00:59] VITALS: BP 142/87
== END 2024-10-18 00:46 | disposition home or self-care (01) ==
LOC: ER 19:51
DX: R10.813 Right lower quadrant abdominal tenderness (principal); R29.91 Unspecified symptoms and signs involving the musculoskeletal system; F31.9 Bipolar disorder, unspecified
CPT/HCPCS: 96361; 85025; 36415; 81025; 81003; 83690; 80053; 74177; 96375; 96374; 99284; Q9967; J1720; J2405; J7030